=== PATIENT | male | born 1955 | race Caucasian/White ===

== ENCOUNTER 2024-02-28 06:22 | Outpatient (OUT) | payer OTHER, SELFPAY ==
[2024-02-28 07:11] LABS: Anion Gap 9.4; BUN Creatinine Ratio 16.5; Calcium 8.5 mg/dL (8.5-10.1); Chloride 105 mmol/L (98-107); Estimated GFR (African America >60 (>=60); Estimated GFR (Non-African Ame >60 (>=60); Glucose 94 mg/dL (74-106); Potassium 3.4 mmol/L (3.5-5.1); Sodium 142 mmol/L (136-145)
== END 2024-02-28 06:23 | disposition home or self-care (01) ==
LOC: LAB 06:26
PROVIDERS: PCP Internal Medicine; Visit Provider Nurse Practitioner Family
DX: I50.33 Acute on chronic diastolic (congestive) heart failure (principal)
CPT/HCPCS: 36415; 80048

== ENCOUNTER 2024-03-22 07:11 | Outpatient (OUT) | payer OTHER, SELFPAY ==
--- OUTSIDE RECORDS SUMMARY | 2024-03-22 07:15 | XMS_ITS | CCD ---
Author Organization [facility] Care Team Providers Care Fee Clerk Name Role Phone CHRISTOPHER YANG Admitting Unavailable CHRISTOPHER YANG Attending Unavailable CHRISTOPHER VELAZQUEZ Referring Unavailable CHRISTOPHER VELAZQUEZ Primary Care Unavailable DALTON, DR SMITH Admitting Unavailable DALTON, DR SMITH Attending Unavailable DALTON, DR SMITH Primary Care Unavailable DALTON, DR SMITH Consulting Unavailable WEST, DR INDIO Barron Consulting Unavailable DALTON, DR SMITH Admitting Unavailable DALTON, DR SMITH Attending Unavailable DALTON, DR SMITH Primary Care Unavailable DALTON, DR SMITH Consulting Unavailable HEMMER, DR JUHI Peterson Admitting Unavailable HEMMER, DR JUHI Peterson Attending Unavailable DALTON, DR SMITH Primary Care Unavailable ZIEBER, DR THOMAS Cook Consulting Unavailable HEMMER, DR JUHI Peterson Consulting Unavailable DALTON, DR SMITH Primary Care Unavailable FEDERICO, DR GUTIERREZ Cook Consulting Unavailable FEDERICO, DR GUTIERREZ Cook Admitting Unavailable FEDERICO, DR GUTIERREZ Cook Attending Unavailable GABBI WALSH Consulting Unavailable KOFFI DAO Consulting Unavailable LALO HICKMAN Consulting Unavailable MICHAEL REINOSO Consulting UnavailOLGA LIDIA Jennings Admitting Unavailable OLGA LIDIA WAITE Attending Unavailable CARLOS WEISS Consulting Unavailable INDIO MCHUGH Consulting Unavailable HALIE GUADALUPE Consulting Unavailable Marina Cheng Attending Unavailab Marina Hutton Attending Unavailab Marina Hutton Attending Unavailab MD Henok Leggett Attending Unavaila indu Cheng, Marina Attending Unavailab Gordon Orellana Admitting Unavailable Gordon Smith Attending Unavailable Christopher Velazquez Primary Care Unavailable Sirisha Savage Consulting Unavailable Libertad Vazquez Consulting Unavailable Taryn Sanders Consulting Unavailable Marta Trevizo Consulting Unavailable Carmenza Thomas Consulting Unavailable Krystyna Carrillo Consulting Unavailable Kimo Cary Consulting Unavailable Judie Issac K Consulting Unavailable Jayan Dunna M Consulting Unavailable Maurilio Murrell Consulting Unavailable Jose Jensen Consulting Unavailable Jg Hamlin Consulting UnavailAbran Langston Consulting Unavailable Eileen Roca Consulting Unavailable Tram Perez Consulting Unavailable Cassi Suresh Consulting Unavailable Tushar Pendleton Consulting Unavailable Harjit Lopez Consulting Unavailable Katya Best Consulting Unavailable Henok Doshi Consulting Unavailable Rush Flores Consulting Unavailable Dmitri Radford Consulting Unavailable Oren Burnett Consulting Unavailable Mihaela Miller Consulting Unavailable DoamekporGen Consulting Unavailab Gamal Nielson Consulting Unavailable VenkateshImelda almanzar Consulting Unavailable Matthias Pablo Consulting Unavailable Giselle Jaquez Consulting Unavailable Jak Ku Consulting Unavailab David Sung Consulting Unavailable Nando Roe Consulting Unavailable Gina Fung Consulting Unavailable Timothy Vaughan Consulting Unavailable Daromar Obaydah M Consulting Unavailable Katharine Caballero Consulting Unavailable Debora Hunt Consulting Unavailable Fany Ford Consulting Unavailable Jenae Mcgee Consulting Unavailable Fer Mayfield Consulting Unavailable Jackie Berry Consulting Unavailable Chaz Hurd Consulting Unavailable Chirag Hatch Consulting UnavailChristopher Baugh Primary Care Unavailable Honey Hines Attending Unavailable Honey Hines Admitting Unavailable Christopher Velazquez MD Primary Care Provider CHAPO Velazquez Primary Care Provider [phone] MD Gordon Smith Admit Provider MD Gordon Smith Attending Provider STERLING Savage Other Provider Unavailable STERLING Vazquez Other Provider Unavailable STERLING Sanders Other Provider Unavailable STERLING Trevizo Other Provider Unavailable STERLING Thomas Other Provider Unavailable STERLING Carrillo Other Provider Unavailable MD Kimo Cary Other Provider MD Issac Dimas Other Provider Shaun, VEGETABLE FARM WORKER Adeola M Other Provider DO Maurilio Murrell Other Provider MD Jose Jensen Other Provider DO Jg Hamlin Other Provider MD Abran Perera Other Provider MD Eileen Roca Other Provider Ana, ANP-BC Tram Other Provider MD Cassi Suresh Other Provider MD Tushar Pendleton Other Provider MD Harjit Lopez Other Provider MD Katya Best Other Provider DO Henok Doshi Other Provider MD Rush Flores Other Provider MD Dmitri Radford Other Provider MD Oren Burnett Other Provider Paul, QUALITY ASSURANCE-C Mihaela Thibodeaux Other Provider MD Gen Reich Other Provider MD Gamal Bone Other Provider MD Imelda Riddle Other Provider MD Matthias Pablo Other Provider DO Giselle Jaquez Other Provider MD Jak Ku Other Provider DO David Rossi Other Provider DO Nando Roe Other Provider NAZANIN Fung Other Provider DO Timothy Vaughan Other Provider MD Jaime Trivedi Other Provider NAZANIN Caballero Other Provider STERLING Hunt Other Provider Unavailable LISA Ford Other Provider UnavailLISA Guerra Other Provider Unavailable MD Fer Mayfield Other Provider [phone] RED Berry Other Provider [phone] MD Chaz Hurd Other Provider MD Chirag Hatch Other Provider NAZANIN Hines Attending Provider [phone] CHRISTOPHER VELAZQUEZ Primary Care Unavailable CHRISTOPHER VELAZQUEZ B Primary Care Unavailable BOOTHBY, FREDRICK C Admitting Unavailable BOOTHBY, FREDRICK C Attending Unavailable CHRISTOPHER VELAZQUEZ B Primary Care Unavailable BOOTHBY, FREDRICK C Admitting Unavailable BOOTHBY, FREDRICK Jake Attending Unavailable CHRISTOPHER VELAZQUEZ B Primary Care Unavailable JUAN AGUERO Consulting Unavailable LESLIE, LORIE Consulting Unavailable BESSYMAXIMILIANO LORENZO Consulting Unavailable ADDY KENDALL Consulting Unavailable LOUKA GLEN Consulting Unavailable CHRISTOPHER VELAZQUEZ B Primary Care Unavailable Christopher Velazquez MD Primary Care Provider HELEN GONZALEZ Attending Unavailable NANDO RETANA Referring Unavailable CHRISTOPHER VELAZQUEZ B Primary Care Unavailable SERINA GONZALEZATUNDE Attending Unavailable CHRISTOPHER VELAZQUEZ B Referring Unavailable CHRISTOPHER VELAZQUEZ B Primary Care Unavailable Christopher Velazquez MD Unavailable [phone] Christopher Velazquez MD Primary Care Provider CHRISTOPHER VELAZQUEZ Primary Care Unavailable LAUREN MARTIN Attending Unavailable LAUREN MARTIN Attending Unavailable LAUREN MARTIN Referring Unavailable DALTON CHRISTOPHER B Primary Care Unavailable LISA, HELEN Attending Unavailable SERINA GONZALEZATUNDE Referring Unavailable DALTON CHRISTOPHER B Primary Care Unavailable CHRISTOPHER VELAZQUEZ B Referring Unavailable DALTON CHRISTOPHER B Primary Care Unavailable DALTON CHRISTOPHER B Referring Unavailable DALTON CHRISTOPHER B Primary Care Unavailable EVA SANCHEZ Attending Unavailable CHRISTOPHER VELAZQUEZ Attending Unavailable JUHI SULLIVAN Attending Unavailable EVA SANCHEZ Attending Unavailable CHRISTOPHER VELAZQUEZ Attending Unavailable NANDO RETANA Attending Unavailable NANDO RETANA Referring Unavailable JUHI SULLIVAN Attending Unavailable SCAR WILLIS Attending Unavailable SCAR WILLIS Admitting Unavailable SCAR WILLIS Referring Unavailable FAB INIGUEZ Referring Unavailable SCAR WILLIS Referring Unavailable FAB INIGUEZ Attending Unavailable FAB INIGUEZ Attending Unavailable Allergies Allergy Classification Reported Allergen(s) Allergy Type Date of Onset Reaction(s) Facility (4 sources) Doxycycline; Translations: [DOXYCYCLINE] Drug Allergy 8 Itching [facility] Repository (5 sources) Morphine; Translations: [MORPHINE] Drug Allergy 3 [facility] Repository (7 sources) Penicillins; Translations: [PENICILLINS] Drug allergy (disorder) 3 Hives [facility] Repository (1 source) Doxycycline Drug Allergy 0 [facility] Repository (1 source) Penicillins Drug allergy (disorder) 0 [facility] Repository (6 sources) Doxycycline Drug Allergy 2 Itching [facility] (3 sources) Penicillins Propensity to adverse reactions to drug 8 Rash, Hives [facility] Work Phone: (7 sources) Morphine Drug Allergy 0 Nausea And Vomiting, GI intolerance [facility] (5 sources) Penicillins Drug Intolerance 4 Hives, Other, Rash, Unknown [facility] Medications Current Medications Medication Drug Class(es) Dates Sig (Normalized) Sig (Original) acetaminophen 325 mg oral tablet (3 sources) Start: 11-09-2022 End: 11-10-2022 acetaminophen (TYLENOL) tablet 650 mg Start: 09-29-2022 take 500 mg by mouth every four hours Acetaminophen Active 500 MG PO Q4H 100 30 September 29, 2022 12:00am Start: 09-11-2022 End: 09-29-2022 take 1000 mg by mouth three times daily Acetaminophen Discontinued 1000 MG PO Three times daily September 11, 2022 12:00am September 29, 2022 1:59pm apixaban 2.5 mg oral tablet (7 sources) Factor Xa Inhibitor Start: 11-16-2023 End: 11-15-2024 take 1 tablet by mouth in the morning apixaban (Eliquis) 2.5 MG tablet Indications: 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 180 tablet 3 11/16/2023 11/15/2024 Active Start: 09-29-2022 End: 11-19-2022 take 1 tablet by mouth twice daily apixaban (ELIQUIS) 5 MG TABS tablet Take 1 tablet by mouth 2 times daily 60 tablet 0 10/20/2022 11/19/2022 Active aspirin 81 mg chewable tablet (4 sources) Platelet Aggregation Inhibitor, Nonsteroidal Anti-inflammatory Drug Start: 11-06-2018 End: 09-29-2022 take 1 tablet by mouth once daily Aspirin (Children's Aspirin) 81 mg Tablet,Chewable Active 81 MG PO Daily September 29, 2022 12:00am take 1 tablet by mouth in the mo rning aspirin 81 mg Take 1 tablet (81 mg total) by mouth in the morning. 0 Active atorvastatin 80 mg oral tablet (10 sources) HMG-CoA Reductase Inhibitor Start: 10-25-2023 take 1 tablet by mouth once daily atorvastatin (Lipitor) 80 MG tablet Indications: Athscl heart disease of [place] coronary artery w/o ang pctrs (CMS/HCC) TAKE 1 TABLET BY MOUTH EVERY DAY 90 tablet 2 10/25/2023 Active Start: 11-06-2018 End: 09-29-2022 take 80 mg by mouth once daily Atorvastatin Active 80 MG PO Daily September 29, 2022 12:00am azithromycin 250 mg oral tablet (4 sources) Macrolide Antimicrobial Start: 12-05-2023 End: 12-09-2023 take 2 tablets by mouth once daily, then take 1 tablet by mouth once daily azithromycin (Zithromax) 250 MG tablet Indications: Chronic obstructive pulmonary disease with acute exacerbation (CMS/HCC) Take 2 tablets (500 mg) by mouth Daily for 1 day, THEN 1 tablet (250 mg) Daily for 4 days. 6 tablet 0 12/05/2023 12/09/2023 Active benzonatate 200 mg oral capsule (4 sources) Non-narcotic Antitussive Start: 12-05-2023 End: 12-12-2023 take 1 capsule by mouth three times daily as needed for cough benzonatate (Tessalon) 200 MG capsule Indications: Chronic obstructive pulmonary disease with acute exacerbation (CMS/HCC) Take 1 capsule (200 mg) by mouth 3 (three) times a day as needed for cough for up to 7 days Do not crush or chew. 21 capsule 0 12/05/2023 12/12/2023 Active carvedilol 12.5 mg oral tablet (12 sources) alpha-Adrenergic Kaleigh, beta-Adrenergic Kaleigh Start: 10-20-2022 take 0.5 tablet by mouth twice daily at mealtime carvedilol (COREG) 12.5 MG tablet Take 0.5 tablets by mouth 2 times daily (with meals) 60 tablet 3 10/20/2022 Active Start: 09-29-2022 carvedilol (Co reg) 12.5 MG tablet Take 12.5 mg by mouth. 0 10/20/2022 Active Start: 11-09-2018 End: 11-17-2018 take 25 mg by mouth twice daily at mealtime Carvedilol Discontinued 25 MG PO Twice daily with meals 0 November 09, 2018 12:00am November 17, 2018 9:47am Start: 11-06-2018 End: 09-29-2022 take 12.5 mg by mouth twice daily Carvedilol Discontinued 12.5 MG PO Twice daily November 06, 2018 12:00am September 29, 2022 1:59pm Start: 08-31-2018 End: 11-06-2018 take 25 mg by mouth twice daily Carvedilol Discontinue d 25 MG PO Twice daily August 31, 2018 12:00am November 06, 2018 2:36pm cefuroxime 250 mg oral tablet (2 sources) Cephalosporin Antibacterial Start: 10-20-2020 take 1 tablet by mouth twice daily ceFUROxime (CEFTIN) 250 mg tablet Take 1 tablet (250 mg total) by mouth 2 (two) times a day. 20 tablet 0 10/20/2020 Active cetirizine hydrochloride 10 mg oral tablet (1 source) Histamine-1 Receptor Antagonist Start: 10-20-2022 End: 11-19-2022 take 1 tablet by mouth once daily cetirizine (ZYRTEC) 10 MG tablet Take 1 tablet by mouth daily 30 tablet 0 10/20/2022 11/19/2022 Active cholecalciferol 0.025 mg oral tablet (2 sources) Vitamin D Start: 09-29-2022 take 50 ug by mouth once daily Cholecalciferol (Vitamin D3) Active 50 MCG PO Daily 60 September 29, 2022 12:00am Start: 09-11-2022 End: 09-29-2022 take 2000 [IU] by mouth once daily Cholecalciferol (Vitamin D3) Discontinued 2000 UNIT PO Daily September 11, 2022 12:00am September 29, 2022 1:59pm cyclobenzaprine hydrochloride 5 mg oral tablet (2 sources) Muscle Relaxant Start: 09-29-2022 take 5 mg by mouth three times daily Cyclobenzaprine Active 5 MG PO Three times daily September 29, 2022 12:00am Start: 09-11-2022 End: 09-29-2022 take 1 tablet by mouth three times daily Cyclobenzaprine (Flexeril) 10 mg Tablet Discontinued 10 MG PO Three times daily September 11, 2022 12:00am September 29, 2022 1:59pm Dietary Management Product (Vasculera) tablet (5 sources) Start: 11-08-2023 take 1 tablet by mouth in the morning Dietary Management Product (Vasculera) tablet Take 1 tablet by mouth in the morning. 0 11/08/2023 Active diosmin complex no.1 (VASCULERA) 630 mg tablet (1 source) Start: 11-08-2023 take 1 tablet by mouth in the morning diosmin complex no.1 (VASCULERA) 630 mg tablet Indications: Venous insufficiency of both lower extremities Take 1 tablet by mouth in the morning. 90 tablet 1 11/08/2023 Active diphenhydrAMINE hydrochloride 25 mg oral tablet (1 source) Histamine-1 Receptor Antagonist Start: 10-20-2022 End: 11-19-2022 take 1 tablet by mouth every six hours as needed diphenhydrAMINE (BENADRYL) 25 MG tablet Take 1 tablet by mouth every 6 hours as needed for Itching 10 tablet 0 10/20/2022 11/19/2022 Active 2 ml fentaNYL 0.05 mg/ml injection (1 source) Opioid Agonist Start: 11-09-2022 fentaNYL (SUBLIMAZE) injection 25 mcg fludrocortisone acetate 0.1 mg oral tablet (5 sources) Start: 06-15-2023 End: 06-14-2024 take 1 tablet by mouth once daily at bedtime fludrocortisone (Florinef) 0.1 MG tablet Indications: Dizziness TAKE 1 TABLET BY MOUTH EVERY DAY AT BEDTIME FOR 30 DAYS 30 tablet 11 06/15/2023 06/14/2024 Active FLUoxetine 20 mg oral capsule (9 sources) Serotonin Reuptake Inhibitor Start: 09-11-2022 End: 09-29-2022 take 20 mg by mouth once daily Fluoxetine Active 20 MG PO Daily 30 September 29, 2022 12:00am furosemide 20 mg oral tablet (10 sources) Loop Diuretic Start: 07-08-2023 take 1 tablet by mouth every twenty-four hours as needed furosemide (Lasix) 20 MG tablet Take 20 mg by mouth Daily as needed (edema). 0 07/08/2023 Active Start: 09-11-2022 End: 09-29-2022 take 20 mg by mouth twice daily Furosemide Discontinued 20 MG PO Twice daily September 11, 2022 1:46am September 29, 2022 1:59pm Start: 11-09-2018 End: 09-11-2022 take 20 mg by mouth once daily Furosemide Discontinued 20 MG PO Daily 60 November 09, 2018 12:00am September 11, 2022 1:46am Start: 11-07-2018 End: 11-09-2018 take 60 mg by mouth twice daily Furosemide Discontinued 60 MG PO Twice daily November 07, 2018 12:00am November 07, 2018 9:18am Start: 06-16-2018 End: 11-07-2018 take 40 mg by mouth twice daily Furosemide Discontinued 40 MG PO Twice daily June 15, 2018 11:00pm November 07, 2018 8:59am gabapentin 300 mg oral capsule (12 sources) Anti-epileptic Agent Start: 05-09-2023 take 3 capsules by mouth in the morning, then take 3 capsules by mouth in the evening, then take 3 capsules by mouth at bedtime gabapentin (Neurontin) 300 MG capsule Indications: 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) Take 3 capsules (900 mg) by mouth in the morning and 3 capsules (900 mg) in the evening and 3 capsules (900 mg) before bedtime. 270 capsule 5 05/09/2023 Active Start: 09-11-2022 End: 09-29-2022 take 900 mg by mouth every eight hours Gabapentin Active 900 MG PO Every 8 hours 270 September 29, 2022 12:00am Start: 11-09-2018 End: 09-11-2022 take 600 mg by mouth three times daily Gabapentin Discontinued 600 MG PO Three times daily 0 November 09, 2018 7:09pm September 11, 2022 1:46am Start: 06-16-2018 End: 11-09-2018 take 900 mg by mouth three times daily Gabapentin Discontinued 900 MG PO Three times daily June 15, 2018 11:00pm November 09, 2018 7:09pm Lanolin Jhrxych-Np-J.Pet-[place] (Minerin Creme) Cream (1 source) Start: 09-29-2022 Lanolin Rxlimxl-Ye-Y.Pet-[place] (Minerin Creme) Cream Active 1 APPLIC TOPICAL Twice daily September 29, 2022 12:00am methocarbamol 750 mg oral tablet (2 sources) Muscle Relaxant Start: 10-07-2022 take 1 tablet by mouth three times daily as needed for muscle spasms methocarbamol (ROBAXIN) 750 MG tablet Take 1 tablet by mouth 3 times daily as needed (muscle spasms) 30 tablet 0 10/07/2022 Active Start: 09-11-2022 End: 09-29-2022 take 750 mg by mouth every six hours Methocarbamol Discontinued 750 MG PO Q6H September 11, 2022 12:00am September 29, 2022 1:59pm x 10 days nystatin 100 unt/mg topical powder (1 source) Polyene Antifungal Start: 09-29-2022 Nystatin (N ystop) 100,000 unit/gram Powder Active 1 APPLIC TOPICAL Twice daily 1 September 29, 2022 12:00am omeprazole 40 mg delayed release oral capsule (10 sources) Proton Pump Inhibitor Start: 11-14-2023 omeprazo le (PriLOSEC) [address] capsule Indications: Gastro-esophageal reflux disease without esophagitis TAKE 1 CAPSULE BY MOUTH EVERY DAY 30 MINUTES BEFORE MORNING MEAL FOR 90 DAYS 100 capsule 3 11/14/2023 Active Start: 09-29-2022 take 40 mg by mouth once daily Omeprazole Active 40 MG PO Daily 60 September 29, 2022 12:00am Start: 11-06-2018 End: 09-29-2022 take 40 mg by mouth once daily Omeprazole Discontinued 40 MG PO Daily November 06, 2018 12:00am September 29, 2022 1:59pm take 2 capsules by m outh once daily omeprazole (PRILOSEC) 20 MG capsule Take 40 mg by mouth Daily 0 Active oxyCODONE hydrochloride 5 mg oral tablet (2 sources) Opioid Agonist Start: 09-11-2022 End: 09-29-2022 take 5 mg by mouth every four hours Oxycodone Active 5 MG PO Q4H 20 September 29, 2022 microencapsulated potassium chloride 20 meq extended release oral tablet (2 sources) Start: 09-29-2022 Potassium Chloride (Klor-Con M20) 20 mEq Tablet,Er Particles/Alba ls Active 20 MEQ PO Daily September 29, 2022 12:00am Start: 09-11-2022 End: 09-29-2022 take 20 mEq by mouth once daily Potassium Chloride Discontinued 20 MEQ PO Daily September 11, 2022 12:00am September 29, 2022 1:59pm 5 ml sodium chloride 9 mg/ml injection (3 sources) Start: 11-09-2022 sodium chlorid e flush 0.9 % injection 5-40 mL Start: 11-09-2022 0.9 % sodium c hloride infusion Start: 11-09-2022 sodium chlorid e flush 0.9 % injection 5-40 mL sulfamethoxazole 800 mg / trimethoprim 160 mg oral tablet (4 sources) Dihydrofolate Reductase Inhibitor Antibacterial, Sulfonamide Antimicrobial Start: 09-29-2022 take 1 tablet by mouth twice daily Sulfamethoxazole-Trimethoprim Active 1 TAB PO Twice daily 9 September 29, 2022 12:00am Start: 10-26-2018 End: 10-31-2018 take 1 tablet by mouth twice daily Sulfamethoxazole-Trimethoprim (Bactrim D s) 800-160 mg tablet Discontinued 1 TAB PO Twice daily 10 October 26, 2018 12:00am October 31, 2018 12:02am call Dr. Velazquez about inr level checks Start: 09-05-2018 End: 09-19-2018 take 1 tablet by mouth twice daily Sulfamethoxazole-Trimethoprim (Bactrim D s) 800-160 mg tablet Discontinued 1 TAB PO Twice daily September 05, 2018 12:00am September 19, 2018 12:01am Start: 06-19-2018 End: 07-03-2018 take 1 tablet by mouth every twelve hours Sulfamethoxazole-Trimethoprim (Bactrim D s) 800-160 mg tablet Discontinued 1 TAB PO Q12H June 18, 2018 11:00pm July 02, 2018 11:03pm triamcinolone acetonide 1 mg/ml topical cream (2 sources) Corticosteroid Start: 09-11-2022 End: 09-29-2022 Triamcinolone Acetonide Active 1 APPLIC TOPICAL Twice daily 11 22September 29, 2022 12:00am zolpidem tartrate 10 mg oral tablet (8 sources) gamma-Aminobutyric Acid-ergic Agonist Start: 11-28-2023 End: 05-26-2024 zolpidem (Ambien) 10 MG tablet Indications: Primary insomnia Take 1 tablet (10 mg) by mouth as needed at bedtime for sleep 30 tablet 5 11/28/2023 05/26/2024 Active Start: 06-16-2018 End: 09-29-2022 take 10 mg by mouth once daily at bedtime Zolpidem Active 10 MG PO Daily at bedtime 04 29September 29, 2022 12:00am Completed/Discontinued Medications Medication Drug Class(es) Dates Sig (Normalized) Sig (Original) acetaminophen 325 mg / oxyCODONE hydrochloride 5 mg oral tablet (4 sources) Opioid Agonist Start: 11-09-2022 End: 11-09-2022 oxyCODONE-acetamin ophen (PERCOCET) 5-325 MG per tablet 1 tablet Start: 11-03-2022 End: 11-16-2022 oxyCODONE-acetaminophen (PER COCET) 5-325 MG per tablet Indications: Post-op pain Take 1 tablet by mouth every 6 hours as needed for Pain for up to 5 days. Intended supply: 7 days. Take lowest dose possible to manage pain Max Daily Amount: 4 tablets 20 tablet 0 11/09/2022 11/14/2022 Active albuterol 0.83 mg/ml inhalation solution (1 source) beta2-Adrenergic Agonist Start: 11-06-2018 End: 11-17-2018 take 1 mL by inhalation three times daily Albuterol Sulfate Discontinued 3 ML INHALATION Three times daily November 06, 2018 12:00am November 17, 2018 9:49am calcium chloride 0.0014 meq/ml / potassium chloride 0.004 meq/ml / sodium chloride 0.103 meq/ml / sodium lactate 0.028 meq/ml injectable solution (1 source) Start: 11-09-2022 End: 11-09-2022 lactated ringers infusion cephalexin 500 mg oral capsule (1 source) Cephalosporin Antibacterial Start: 11-09-2018 End: 11-16-2018 take 1 capsule by mouth every eight hours Cephalexin (Keflex) 500 mg capsule Discontinued 500 MG PO Q8H 21 November 09, 2018 12:00am November 16, 2018 12:01am Enoxaparin (1 source) Low Molecular Weight Heparin Start: 09-11-2022 End: 09-29-2022 Enoxaparin (Lovenox) 30 mg/0.3 mL Solution Discontinued 30 MG SUBCUT Twice daily September 11, 2022 12:00am September 29, 2022 1:59pm hydroCHLOROthiazide 25 mg / triamterene 37.5 mg oral tablet (2 sources) Potassium-sparing Diuretic, Thiazide Diuretic Start: 11-07-2018 End: 11-09-2018 take 1 tablet by mouth once daily Triamterene-Hyd rochlorothiazid Discontinued 1 TAB PO Daily November 07, 2018 12:00am November 09, 2018 7:02pm Start: 06-16-2018 End: 11-06-2018 take 1 capsule by mouth once daily Triamterene-Hydrochlorothiazid Discontin ued 1 CAP PO Daily June 15, 2018 11:00pm November 06, 2018 6:38pm 3 ml insulin lispro 100 unt/ml pen injector (1 source) Insulin Analog Start: 09-11-2022 End: 09-29-2022 inject 100 [IU] by subcutaneous injection at bedtime Insulin Lispro (Humalog Kwikpen Insulin) 100 unit/mL Insulin Pen Discontinued SUBCUT Before meals and at bedtime September 11, 2022 12:00am September 29, 2022 1:59pm lisinopril 20 mg oral tablet (1 source) Angiotensin Converting Enzyme Inhibitor Start: 08-31-2018 End: 11-09-2018 take 20 mg by mouth once daily Lisinopril Discontinued 20 MG PO Daily August 31, 2018 12:00am November 09, 2018 7:01pm meloxicam 15 mg oral tablet (1 source) Nonsteroidal Anti-inflammatory Drug Start: 11-07-2018 End: 11-09-2018 take 15 mg by mouth once daily Meloxicam Discontinued 15 MG PO Daily November 07, 2018 12:00am November 09, 2018 7:01pm 1 ml methylPREDNISolone acetate 40 mg/ml injection (4 sources) Corticosteroid Start: 12-06-2023 End: 12-06-2023 methylPREDNISolone acetate (DEPO-Medrol) injection 40 mg metoprolol tartrate 25 mg oral tablet (1 source) beta-Adrenergic Kaleigh Start: 06-16-2018 End: 11-06-2018 take 25 mg by mouth twice daily Metoprolol Tartrate Discontinued 25 MG PO Twice daily June 15, 2018 11:00pm November 06, 2018 6:32pm 1 ml morphine sulfate 2 mg/ml cartridge (1 source) Opioid Agonist Start: 11-09-2022 End: 11-09-2022 morphine (PF) injection 2 mg ondansetron 4 mg oral tablet (1 source) Serotonin-3 Receptor Antagonist Start: 09-11-2022 End: 09-29-2022 take 1 tablet by mouth every eight hours Ondansetron Hcl (Zofran) 4 mg Tablet Discontinued 4 MG PO Q8H September 11, 2022 12:00am September 29, 2022 1:59pm pantoprazole 40 mg delayed release oral tablet (2 sources) Proton Pump Inhibitor Start: 09-11-2022 End: 09-29-2022 take 1 tablet by mouth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 obtained split-thickness skin graft to his left thigh. We then let the wound to his left thigh soak in a sponge soaked with 1% lidocaine with epinephrine and the split-thickness skin graft was then meshed with a 1.5:1 mesher and then placed over the medial wound and stapled in place. Residual skin graft was trimmed. We then placed Xeroform over his thigh wound after removing the sponge and placed Kerlix and a Xeroform compression dressing. We then medially placed a negative pressure wound VAC over the wound, which had excellent seal. Being satisfied, we placed a well-padded posterior short-leg splint to his left lower extremity. The patient was then awoken from general anesthesia, transferred to PACU in stable condition. I was present for all aspects of the procedure. Meticulous dissection was used and thorough hemostasis was achieved. The patient will be nonweightbearing to left lower extremity and follow up in my clinic in one week. FREDRICK BABIN RUSSELL/[email or web address] Doc#: [id number] CC: Normal [facility] POCT Glucoseon 11-09-2022 Glucose [Mass/Vol] 93 mg/dL 74 - 100 mg/dL [facility] POCT urea (BUN)on 11-09-2022 Urea nitrogen [Mass/Vol] 12 mg/dL 8 - 26 mg/dL [facility] Basic Metab w/rfx MGon 10-22 Anion gap [Moles/Vol] 9 mmol/L Normal 9-17 [facility] Comment on above: Performed By: #### B MPX #### [facility] [place] [address] Fermentation Operator: Bret Vazquez MD Calcium [Mass/Vol] 8.1 mg/dL Low 8.6-10.4 [facility] Comment on above: Performed By: #### B MPX #### [facility] [address] [place] [address] Fermentation Operator: Bret Vazquez MD Chloride [Moles/Vol] 102 mmol/L Normal 98-107 [facility] Comment on above: Performed By: #### B MPX #### [facility] [address] [place] [address] Fermentation Operator: Bret Vazquez MD CO2 [Moles/Vol] 26 mmol/L Normal 20-31 [facility] Comment on above: Performed By: #### B MPX #### [address] [address] Fermentation Operator: Bret Vazquez MD Creatinine [Mass/Vol] 0.59 mg/dL Low 0.70-1.20 [facility] Comment on above: Performed By: #### B MPX #### [address] [address] Fermentation Operator: Bret Vazquez MD GFR/1.73 sq M.predicted among non-blacks MDRD (S/P/Bld) [Vol rate/Area] mL/min/{1.73_m2} Normal >60 [facility] Comment on above: Result Comment: Effective Jul 26, 2022 These results are not intended for use in patients <18 years of age. eGFR results are calculated without a race factor using the 2020 CKD-EPI equation. Careful clinical correlation is recommended, particularly when comparing to results calculated using previous equations. The CKD-EPI equation is less accurate in patients with extremes of muscle mass, extra-renal metabolism of creatine, excessive creatine ingestion, or following therapy that affects renal tubular secretion. Performed By: #### B MPX #### [address] [address] Fermentation Operator: Bret Vazquez MD Glucose [Mass/Vol] 93 mg/dL Normal 70-99 [facility] Comment on above: Performed By: #### B MPX #### [address] [address] Fermentation Operator: Bret Vazquez MD Potassium [Moles/Vol] 4.3 mmol/L Normal 3.7-5.3 [facility] Comment on above: Performed By: #### B MPX #### [address] [address] Fermentation Operator: Bret Vazquez MD Sodium [Moles/Vol] 137 mmol/L Normal 135-144 [facility] Comment on above: Performed By: #### B MPX #### [address] [address] Fermentation Operator: Bret Vazquez MD Urea nitrogen [Mass/Vol] 9 mg/dL Normal 8-23 [facility] Comment on above: Performed By: #### B MPX #### [place] [address] Fermentation Operator: Bret Vazquez MD CBC with Diffon 10-20-2022 Abs. Basophil 0.04 k/uL Normal 0.00-0.20 [facility] Comment on above: Performed By: #### E RTPF, CK, ECENZ, VD25 #### [place] [address] Fermentation Operator: Bret Vazquez MD Abs.Imm.Granulocyte <0.03 Normal 0.00-0.30 [facility] Comment on above: Performed By: #### E RTPF, CK, ECENZ, VD25 #### [facility] [address] [place] [address] Fermentation Operator: Bret Vazquez MD Abs.Neutrophil (Seg) 4.45 k/uL Normal 1.50-8.10 [facility] Comment on above: Performed By: #### E RTPF, CK, ECENZ, VD25 #### [facility] [address] [place] [address] Fermentation Operator: Bret Vazquez MD Basophils/100 WBC (Bld) 1 % Normal 0-2 [facility] Comment on above: Performed By: #### E RTPF, CK, ECENZ, VD25 #### [address] [address] Fermentation Operator: Bret Vazquez MD Eosinophils (Bld) [#/Vol] 0.11 10*3/uL Normal 0.00-0.44 [facility] Comment on above: Performed By: #### E RTPF, CK, ECENZ, VD25 #### [address] [address] Fermentation Operator: Bret Vazquez MD Eosinophils/100 WBC (Bld) 2 % Normal 1-4 [facility] Comment on above: Performed By: #### E RTPF, CK, ECENZ, VD25 #### [address] [address] Fermentation Operator: Bret Vazquez MD Erythrocyte distribution width (RBC) [Ratio] 14.5 % High 11.8-14.4 [facility] Comment on above: Performed By: #### E RTPF, CK, ECENZ, VD25 #### [address] [address] Fermentation Operator: Bret Vazquez MD Hematocrit (Bld) [Volume fraction] 33.5 % Low 40.7-50.3 [facility] Comment on above: Performed By: #### E RTPF, CK, ECENZ, VD25 #### [address] [address] Fermentation Operator: Bret Vazquez MD Hemoglobin (Bld) [Mass/Vol] 10.8 g/dL Low 13.0-17.0 [facility] Comment on above: Performed By: #### E RTPF, CK, ECENZ, VD25 #### [address] [address] Fermentation Operator: Bret Vazquez MD Immature granulocytes/100 WBC (Bld) 0 % Normal 0 [facility] Comment on above: Performed By: #### E RTPF, CK, ECENZ, VD25 #### [place] [address] Fermentation Operator: Bret Vazquez MD Lymphocytes (Bld) [#/Vol] 1.28 10*3/uL Normal 1.10-3.70 [facility] Comment on above: Performed By: #### E RTPF, CK, ECENZ, VD25 #### [place] [address] Fermentation Operator: Bret Vazquez MD Lymphocytes/100 WBC (Bld) 19 % Low 24-43 [facility] Comment on above: Performed By: #### E RTPF, CK, ECENZ, VD25 #### [place] [address] Fermentation Operator: Bret Vazquez MD MCH (RBC) [Entitic mass] 29.0 pg Normal 25.2-33.5 [facility] Comment on above: Performed By: #### E RTPF, CK, ECENZ, VD25 #### [place] [address] Fermentation Operator: Bret Vazquez MD MCHC (RBC) [Mass/Vol] 32.2 g/dL Normal 28.4-34.8 [facility] Comment on above: Performed By: #### E RTPF, CK, ECENZ, VD25 #### [address] [address] Fermentation Operator: Bret Vazquez MD MCV (RBC) [Entitic vol] 90.1 fL Normal 82.6-102.9 [facility] Comment on above: Performed By: #### E RTPF, CK, ECENZ, VD25 #### [address] [address] Fermentation Operator: Bret Vazquez MD Monocytes (Bld) [#/Vol] 0.70 10*3/uL Normal 0.10-1.20 [facility] Comment on above: Performed By: #### E RTPF, CK, ECENZ, VD25 #### [address] [address] Fermentation Operator: Bret Vazquez MD Monocytes/100 WBC (Bld) 11 % Normal 3-12 [facility] Comment on above: Performed By: #### E RTPF, CK, ECENZ, VD25 #### [place] [address] Fermentation Operator: Bret Vazquez MD Neutrophil (Seg) 67 % High 36-65 [facility] Comment on above: Performed By: #### E RTPF, CK, ECENZ, VD25 #### [address] [address] Fermentation Operator: Bret Vazquez MD NRBC Automated 0.0 per 100 WBC Normal 0.0 [facility] Comment on above: Performed By: #### E RTPF, CK, ECENZ, VD25 #### [address] [address] Fermentation Operator: Bret Vazquez MD Platelet mean volume (Bld) [Entitic vol] 10.3 fL Normal 8.1-13.5 [facility] Comment on above: Performed By: #### E RTPF, CK, ECENZ, VD25 #### [address] [address] Fermentation Operator: Bret Vazquez MD Platelets (Bld) [#/Vol] 236 10*3/uL Normal 138-453 [facility] Comment on above: Performed By: #### E RTPF, CK, ECENZ, VD25 #### [facility] [address] [place] [address] Fermentation Operator: Bret Vazquez MD RBC (Bld) [#/Vol] 3.72 10*6/uL Low 4.21-5.77 [facility] Comment on above: Performed By: #### E RTPF, CK, ECENZ, VD25 #### [address] [address] Fermentation Operator: Bret Vazquez MD RBC morphology finding Nom (Bld) ANISOCYTOSIS PRESENT Normal [facility] Comment on above: Performed By: #### E RTPF, CK, ECENZ, VD25 #### [facility] [address] [place] [address] Fermentation Operator: Bret Vazquez MD WBC (Bld) [#/Vol] 6.6 10*3/uL Normal 3.5-11.3 [facility] Comment on above: Performed By: #### E RTPF, CK, ECENZ, VD25 #### [facility] [address] [place] [address] Fermentation Operator: Bret Vazquez MD Comp Metabolic Pr/rfx MGon 1 12-21-2021 Albumin [Mass/Vol] 2.6 g/dL Low 3.5-5.2 [facility] Comment on above: Performed By: #### E RTPF, CK, ECENZ, VD25 #### [facility] [address] [place] [address] Fermentation Operator: Bret Vazquez MD Albumin/Glob Ratio 1.2 Normal 1.0-2.5 [facility] Comment on above: Performed By: #### E RTPF, CK, ECENZ, VD25 #### [address] [address] Fermentation Operator: Bret Vazquez MD Alkaline Phos 104 U/L Normal 40-129 [facility] Comment on above: Performed By: #### E RTPF, CK, ECENZ, VD25 #### [address] [address] Fermentation Operator: Bret Vazquez MD ALT [Catalytic activity/Vol] 7 U/L Normal 5-41 [facility] Comment on above: Performed By: #### E RTPF, CK, ECENZ, VD25 #### [address] [address] Fermentation Operator: Bret Vazquez MD Anion gap [Moles/Vol] 7 mmol/L Low 9-17 [facility] Comment on above: Performed By: #### E RTPF, CK, ECENZ, VD25 #### [address] [address] Fermentation Operator: Bret Vazquez MD AST [Catalytic activity/Vol] 13 U/L Normal <40 [facility] Comment on above: Performed By: #### E RTPF, CK, ECENZ, VD25 #### [address] [address] Fermentation Operator: Bret Vazquez MD Bilirubin [Mass/Vol] 0.9 mg/dL Normal 0.3-1.2 [facility] Comment on above: Performed By: #### E RTPF, CK, ECENZ, VD25 #### [facility] [address] [place] [address] Fermentation Operator: Bret Vazquez MD Calcium [Mass/Vol] 8.0 mg/dL Low 8.6-10.4 [facility] Comment on above: Performed By: #### E RTPF, CK, ECENZ, VD25 #### [facility] [place] [address] Fermentation Operator: Bret Vazquez MD Chloride [Moles/Vol] 103 mmol/L Normal 98-107 [facility] Comment on above: Performed By: #### E RTPF, CK, ECENZ, VD25 #### [facility] [place] [address] Fermentation Operator: Bret Vazquez MD CO2 [Moles/Vol] 25 mmol/L Normal 20-31 [facility] Comment on above: Performed By: #### E RTPF, CK, ECENZ, VD25 #### [facility] [address] [place] [address] Fermentation Operator: Bret Vazquez MD Creatinine [Mass/Vol] 0.67 mg/dL Low 0.70-1.20 [facility] Comment on above: Performed By: #### E RTPF, CK, ECENZ, VD25 #### [facility] [address] [place] [address] Fermentation Operator: Bret Vazquez MD GFR/1.73 sq M.predicted among non-blacks MDRD (S/P/Bld) [Vol rate/Area] mL/min/{1.73_m2} Normal >60 [facility] Comment on above: Result Comment: Effective Jul 26, 2022 These results are not intended for use in patients <18 years of age. eGFR results are calculated without a race factor using the 2020 CKD-EPI equation. Careful clinical correlation is recommended, particularly when comparing to results calculated using previous equations. The CKD-EPI equation is less accurate in patients with extremes of muscle mass, extra-renal metabolism of creatine, excessive creatine ingestion, or following therapy that affects renal tubular secretion. Performed By: #### E RTPF, CK, ECENZ, VD25 #### [facility] [address] [place] [address] Fermentation Operator: Bret Vazquez MD Glucose [Mass/Vol] 99 mg/dL Normal 70-99 [facility] Comment on above: Performed By: #### E RTPF, CK, ECENZ, VD25 #### [address] [address] Fermentation Operator: Bret Vazquez MD Potassium [Moles/Vol] 4.3 mmol/L Normal 3.7-5.3 [facility] Comment on above: Performed By: #### E RTPF, CK, ECENZ, VD25 #### [address] [address] Fermentation Operator: Bret Vazquez MD Protein [Mass/Vol] 4.7 g/dL Low 6.4-8.3 [facility] Comment on above: Performed By: #### E RTPF, CK, ECENZ, VD25 #### [address] [address] Fermentation Operator: Bret Vazquez MD Sodium [Moles/Vol] 135 mmol/L Normal 135-144 [facility] Comment on above: Performed By: #### E RTPF, CK, ECENZ, VD25 #### [address] [address] Fermentation Operator: Bret Vazquez MD Urea nitrogen [Mass/Vol] 11 mg/dL Normal 8-23 [facility] Comment on above: Performed By: #### E RTPF, CK, ECENZ, VD25 #### [address] [address] Fermentation Operator: Bret Vazquez MD XR ANKLE LEFT (MIN 3 VIEWS)o n 10-20-2022 XR ANKLE LEFT (MIN 3 VIEWS) History: 67 year-old male with a history of left ankle ORIF ? Comparison: 09/06/2022 ? Findings: AP, oblique and lateral views of the left ankle in a skeletally mature patient status post open reduction internal fixation of prior fractures of the medial and lateral malleolus. Compared to prior radiographs, there is increased displacement of the lateral malleolus and medial clear space. There is an increased tilt of the talus noted. No broken screws are visualized. No acute fractures noted. ? Impression: Status post ORIF with displacement of the left lateral malleolus and medial clear space. Increased talar tilt can be appreciated compared to prior radiographs. Interpreted by: Peter Mosquera DO Signed by: Peter Mosquera DO 10/20/22 Final result Normal [facility] FLUORO FOR SURGICAL PROCEDUR ESon 10-19-2022 FLUORO FOR SURGICAL PROCEDURES Radiology exam is complete. No Radiologist dictation. Please follow up with ordering provider. 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 PROCEDURES: 1. Irrigation, excisional debridement of skin down to and including the bone of postsurgical wound, left medial ankle measuring 5 x 4 cm. 2. Revision of open reduction and internal fixation of left lateral malleolus. 3. Open fixation, left syndesmosis. 4. Placement of Integra Xenograft over a 5 x 4 cm wound. 5. Removal of deep implant, left ankle. 6. Application of negative pressure wound VAC, left ankle. 7. Stress examination of left ankle with independent interpretation and imaging. SURGEON: Fredrick Babin DO ASSISTANTS: Benson Rausch DO, PGY-5 and Srinivasa Hilario DO, PGY-2 ANESTHESIA: General. ESTIMATED BLOOD LOSS: 30 mL. FLUIDS: 1000 mL of crystalloid. TOURNIQUET TIME: 89 minutes. COMPLICATIONS: None. SPECIMENS: None. IMPLANTS: Caballero and Nephew distal fibular locking plate and Integra particulate and Integra glycosaminoglycan layer. FINDINGS: Hardware failure of left ankle with 5 x 4 cm open wound to medial ankle. INDICATIONS: This is a 67-year-old male who initially underwent open reduction and internal fixation of the left open trimalleolar ankle fracture by Dr. Mosquera on 09/06/2022. The patient admits today he was walking on his ankle and is somewhat noncompliant. He had hardware failure to the lateral malleolus fixation as well as open wound forming over his prior open ankle wound on the medial aspect of his ankle. I can still ask if I would assist with management of his care. Discussion was had with the patient about revision surgery with debridement and application of graft material of the left ankle. The patient was agreeable. Consent was obtained and placed in chart. All questions were answered appropriately. Surgical risks include, but not limited to bleeding, blood clots, infection, damage to nearby tissues, vessels and nerves; wound healing complications, failed procedure, stiffness, loss of motion, hardware failure or hardware irritation, anesthesia risk, patient's satisfaction, malunion, nonunion, loss of limb, loss of life were all discussed with the patient. Knowing these risks, the patient wished to proceed with surgery as indicated. OPERATIVE PROCEDURE: The patient was taken to the operative suite, placed under general anesthesia without any complications. Ancef 2 gm was given prior to procedure. At this time, all team members paused to identify proper patient name, indications, site and allergies. All team members were in agreeance. The left lower extremity was prepped and draped in normal sterile fashion. We started medially using gravity examination, tourniquet was inflated. We assessed the wound was 5 x 4 cm. There was some fibrous tissue noted about this wound dehiscence medially. We then sharply incised the skin down to the bone of the fibrous tissue until we got to a good bleeding bed of tissue over the tendon posteriorly as well as over the bone more anteriorly. Being satisfied, we thoroughly irrigated the wound with normal saline. We then turned our attention laterally and we reopened the scar that was probably made in the lateral aspect of the ankle. Dissection was carried down meticulously through the skin and subcutaneous tissue. The hardware at about the lateral aspect of the ankle was removed without complication. The fracture had not yet healed. So, we debrided the fracture segment, removed any fibrous tissue from the fracture and then using [id number] clamps as well as K-wires, achieved reduction. Being satisfied, we sized our Caballero and Nephew and lateral distal fibular locking plate and after adequate position on the bone, we drilled, measured and placed bicortical screws proximally and locking screws distally as well as a syndesmotic screw and syndesmotic locking screw stabilizes syndesmosis as preoperative imaging did indicate there was a syndesmotic injury after the hardware failure. Being satisfied, we took final fluoroscopic images. External rotation stress examination was then performed. There was no medial clear space widening or talar tilt noted. We then thoroughly irrigated the wound, changed gloves, placed tobramycin and vancomycin powder, closed the fascial layer using 0 PDS, the deep dermal layer using 2-0 Monocryl and the skin using 2-0 nylon in horizontal mattress fashion. We then turned our attention back laterally and using the Integra particulate matter. We placed that within the wound, within the crevices and then laid our Integra glycosami (more content not included)... Normal [facility] XR ANKLE LEFT (MIN 3 VIEWS)o n 10-19-2022 XR ANKLE LEFT (MIN 3 VIEWS) EXAMINATION: THREE XRAY VIEWS OF THE LEFT ANKLE 10/19/2022 11:14 am COMPARISON: 10/14/2022, 1015 hours HISTORY: ORDERING SYSTEM PROVIDED HISTORY: Post op in PACU TECHNOLOGIST PROVIDED HISTORY: Post op in PACU 67-year-old male who is postop in the PACU FINDINGS: Overlying casting material limits evaluation of fine osseous detail. There new lateral side plates, screws and syndesmotic screws at the lateral aspect of the distal fibula. Threaded screws are seen traversing the medial malleolus. Skin gracie are seen at the medial aspect of the ankle. Hardware appears intact. Osseous alignment is anatomic. Ankle mortise appears intact. Mild plantar calcaneal spur. No superimposed acute osseous abnormality. Anatomic alignment. IMPRESSION: 1. Postsurgical changes related to ORIF of the distal fibula, syndesmosis, and medial malleolus. Hardware appears intact. Anatomic alignment. 2. Overlying casting material limits evaluation of fine osseous detail. 3. No superimposed acute osseous abnormality. Interpreted by: Dallin Pineda MD Signed by: Dallin Pineda MD 10/19/22 Final result Normal [facility] Aerobic Cultureon 09-27-2022 Aerobic Culture ORGANISM: Enterococc us faecalis (O:ENTFAC) Quantity of Growth Moderate Growth Anaerobic Culture Results No Anaerobes Isolated 3 Days Gram Stain Result Rare Gram Positive Cocci Rare Epithelial Cells Rare White Blood Cells Aerobic KIMBERLY Charge (PC45) SUSCEPTIBILITY ORGANISM: O:ENTFAC ANTIBIOTIC INTERPRETATION KIMBERLY Ampicillin S 8 Daptomycin S 4 Erythromycin R >4 Linezolid S <2 Penicillin S 8 Rifampin R >2 Vancomycin S 1 S = SUSCEPTIBLE I = INTERMEDIATE R = RESISTANT BLANK = DATA NOT AVAILABLE, OR DRUG NOT ADVISABLE OR TESTED R* = RESISTANCE DUE TO EXTENDED SPECTRUM BETA-LACTAMASES ESBL = EXTENDED SPECTRUM BETA-LACTAMASE TFG = THYMIDINE-DEPENDENT STRAIN BRITTON = BETA-LACTAMASE POSITIVE IB = INDUCIBLE BETA-LACTAMASE. APPEARS IN PLACE OF 'S' WITH SPECIES KNOWN TO POSSESS INDUCIBLE BETA-LACTAMASES. POTENTIALLY THEY MAY BECOME RESISTANT TO ALL B-LACTAM DRUGS. PERFORMED BY: [place] [address] PATHOLOGIST [employer] MECH[employer]IC XU TAPIA M.D. Normal [facility] Comment on above: Performed By: #### G USMAN #### Point of Care testing , Anaerobic cultureOrdered By: Molly Rivera on 09-27-2022 Bacteria identified Anaer cx Nom (Unsp spec) [facility] Bacteria identified Aer cx N om (Unsp spec)Ordered By: Molly Rivera on 09-27-2022 Aerobic Culture Enterococcus faecalis [facility] Basic Metabolic Panelon 12-0 Anion gap [Moles/Vol] 10.1 mmol/L Normal 6.0-15.0 [facility] Comment on above: Performed By: #### C MP, CBC, PAB #### [facility] [address] [place] [address] Calcium [Mass/Vol] 8.0 mg/dL Low 8.2-10.2 [facility] Comment on above: Performed By: #### C MP, CBC, PAB #### [facility] [address] Chloride [Moles/Vol] 105 mmol/L Normal 95-114 [facility] Comment on above: Performed By: #### C MP, CBC, PAB #### [address] CO2 [Moles/Vol] 27.1 mmol/L Normal 22.0-30.0 [facility] Comment on above: Performed By: #### C MP, CBC, PAB #### [address] Creatinine [Mass/Vol] 0.72 mg/dL Normal 0.64-1.27 [facility] Comment on above: Performed By: #### C MP, CBC, PAB #### [address] Creatinine Clr Calc Pharmacy 108.46 [facility] Comment on above: Result Comment: PERF ORMED BY: [place] [address] PATHOLOGIST [employer] XU TAPIA M.D. Performed By: #### C MP, CBC, PAB #### [address] Estimated GFR ( Marie > 60 [facility] Comment on above: Result Comment: GFR estimated reference range: According to KDOQI guidelines, <60 ml/min/1.73m2 is sufficient to diagnose a patient with chronic kidney disease. Performed By: #### C MP, CBC, PAB #### [address] Estimated GFR (Non- Am > 60 [facility] Comment on above: Performed By: #### C MP, CBC, PAB #### [address] Glucose [Mass/Vol] 90 mg/dL Normal 70-100 [facility] Comment on above: Result Comment: [place] om Glucose Reference Range is dependent on time and content of last meal. Glucose of more than 200 mg/dL in a nonstressed, ambulatory subject supports the diagnosis of Diabetes Mellitus. ADA recommended reference range Performed By: #### C MP, CBC, PAB #### [facility] [address] Potassium [Moles/Vol] 4.2 mmol/L Normal 3.5-5.1 [facility] Comment on above: Performed By: #### C MP, CBC, PAB #### [facility] [address] Sodium [Moles/Vol] 138 mmol/L Normal 136-146 [facility] Comment on above: Performed By: #### C MP, CBC, PAB #### [facility] [address] Urea nitrogen [Mass/Vol] 9 mg/dL Normal 9-23 [facility] Comment on above: Performed By: #### C MP, CBC, PAB #### [facility] [address] [place] [address] [place] Basophils Auto (Bld) [#/Vol] Ordered By: Gordon Smith on 09-27-2022 Basophils (Bld) [#/Vol] 0.1 10*3/uL 0.0-0.2 [facility] Basophils/100 WBC Auto (Bld) Ordered By: Gordon Smith on 09-27-2022 Basophils/100 WBC (Bld) 1.0 % . F [facility] Complete Blood Count Auto Di ffon 09-27-2022 Basophils (Bld) [#/Vol] 0.1 10*3/uL Normal 0.0-0.2 [facility] Comment on above: Result Comment: PERF ORMED BY: [place] [address] PATHOLOGIST [employer] XU TAPIA M.D. Performed By: #### C MP, CBC, PAB #### [facility] [address] Basophils/100 WBC (Bld) 1.0 % Normal . F [facility] Comment on above: Performed By: #### C MP, CBC, PAB #### [facility] [address] [place] [address] [place] Eosinophils (Bld) [#/Vol] 0.3 10*3/uL Normal 0.0-0.45 [facility] Comment on above: Performed By: #### C MP, CBC, PAB #### [address] Eosinophils/100 WBC (Bld) 4.8 % Normal . [facility] Comment on above: Performed By: #### C MP, CBC, PAB #### [address] Erythrocyte distribution width (RBC) [Ratio] 15.8 % High 12.0-14.8 [facility] Comment on above: Performed By: #### C MP, CBC, PAB #### [address] Hematocrit (Bld) [Volume fraction] 29.5 % Low 38.8-50.0 [facility] Comment on above: Performed By: #### C MP, CBC, PAB #### [address] Hemoglobin (Bld) [Mass/Vol] 9.5 g/dL Low 13.0-17.0 [facility] Comment on above: Performed By: #### C MP, CBC, PAB #### [address] Lymphocytes (Bld) [#/Vol] 1.1 10*3/uL Normal 1.00-4.8 [facility] Comment on above: Performed By: #### C MP, CBC, PAB #### [address] Lymphocytes/100 WBC (Bld) 17.0 % Normal . [facility] Comment on above: Performed By: #### C MP, CBC, PAB #### [address] MCH (RBC) [Entitic mass] 30.4 pg Normal 27.5-35.2 [facility] Comment on above: Performed By: #### C MP, CBC, PAB #### [address] [place] [address] [place] MCV (RBC) [Entitic vol] 94.2 fL Normal 83.5-101 F [facility] Comment on above: Performed By: #### C MP, CBC, PAB #### [facility] [address] Mean Corpuscular HGB Conc 32.3 g/dL Low 32.5-35.6 [facility] Comment on above: Performed By: #### C MP, CBC, PAB #### [facility] [address] [place] [address] [place] Monocytes (Bld) [#/Vol] 0.6 10*3/uL Normal 0.0-0.8 [facility] Comment on above: Performed By: #### C MP, CBC, PAB #### [address] Monocytes/100 WBC (Bld) 9.6 % Normal . F [facility] Comment on above: Performed By: #### C MP, CBC, PAB #### [place] [address] [place] Neutrophils (Bld) [#/Vol] 4.3 10*3/uL Normal 1.8-7.7 [facility] Comment on above: Performed By: #### C MP, CBC, PAB #### [address] Neutrophils/100 WBC (Bld) 67.6 % Normal . [facility] Comment on above: Performed By: #### C MP, CBC, PAB #### [place] [address] [place] NRBC% 0.0 /100{WBC} Normal 0-0.5 [facility] Comment on above: Performed By: #### C MP, CBC, PAB #### [address] Platelet mean volume (Bld) [Entitic vol] 8.2 fL Normal 6.6-10.1 [facility] Comment on above: Performed By: #### C MP, CBC, PAB #### [facility] [address] [place] [address] [place] Platelets (Bld) [#/Vol] 352 10*3/uL Normal 150-450 [facility] Comment on above: Performed By: #### C MP, CBC, PAB #### [facility] [address] RBC (Bld) [#/Vol] 3.13 10*6/uL Low 3.90-5.60 [facility] Comment on above: Performed By: #### C MP, CBC, PAB #### [facility] [address] [place] [address] [place] WBC (Bld) [#/Vol] 6.3 10*3/uL Normal 4.1-10.5 [facility] Comment on above: Performed By: #### C MP, CBC, PAB #### [facility] [address] Creatinine and Glomerular fi ltration rate.predicted panel (S/P/Bld)Ordered By: Gordon Smith on 09-27-2022 Creatinine [Mass/Vol] 0.72 mg/dL 0.64-1.27 [facility] Eosinophils Auto (Bld) [#/Vo l]Ordered By: Gordon Smith on 09-27-2022 Eosinophils (Bld) [#/Vol] 0.3 10*3/uL 0.0-0.45 [facility] Eosinophils/100 WBC Auto (Bl d)Ordered By: Gordon Smith on 09-27-2022 Eosinophils/100 WBC (Bld) 4.8 % . [facility] Erythrocyte distribution wid th Auto (RBC) [Ratio]Ordered By: Gordon Smith on 09-27-2022 Erythrocyte distribution width (RBC) [Ratio] 15.8 % 12.0-14.8 [facility] Estimated glomerular filtrat ion rate (GFR) non- AmericanOrdered By: Gordon Smith on 09-27-2022 GFR/1.73 sq M.predicted among non-blacks MDRD (S/P/Bld) [Vol rate/Area] > 60 mL/Min [facility] Gram stain for investigation of transfusion reactionOrdered By: Molly Rivera on 09-27-2022 Microscopic observation Gram stain Nom (Unsp spec) [facility] Hematocrit Auto (Bld) [Volum e fraction]Ordered By: Gordon Smith on 09-27-2022 Hematocrit (Bld) [Volume fraction] 29.5 % 38.8-50.0 [facility] Hemoglobin [Mass/volume] in BloodOrdered By: Gordon Smith on 09-27-2022 Hemoglobin (Bld) [Mass/Vol] 9.5 g/dL 13.0-17.0 [facility] Leukocytes [#/volume] correc tyree for nucleated erythrocytes in Blood by Automated counOrdered By: Gordon Smith on 09-27-2022 WBC corrected for nucl RBC Auto (Bld) [#/Vol] 6.3 10*3/uL 4.1-10.5 [facility] Lymphocytes Auto (Bld) [#/Vo l]Ordered By: Gordon Smith on 09-27-2022 Lymphocytes (Bld) [#/Vol] 1.1 10*3/uL 1.00-4.8 [facility] Lymphocytes/100 WBC Auto (Bl d)Ordered By: Gordon Smith on 09-27-2022 Lymphocytes/100 WBC (Bld) 17.0 % . [facility] MCH Auto (RBC) [Entitic mass ]Ordered By: Gordon Smith on 09-27-2022 MCH (RBC) [Entitic mass] 30.4 pg 27.5-35.2 [facility] MCHC Auto (RBC) [Mass/Vol]Or dered By: Gordon Smith on 09-27-2022 MCHC (RBC) [Mass/Vol] 32.3 g/dL 32.5-35.6 [facility] MCV Auto (RBC) [Entitic vol] Ordered By: Gordon Smith on 09-27-2022 MCV (RBC) [Entitic vol] 94.2 fL 83.5-101 F [facility] Monocytes Auto (Bld) [#/Vol] Ordered By: Gordon Smith on 09-27-2022 Monocytes (Bld) [#/Vol] 0.6 10*3/uL 0.0-0.8 [facility] Monocytes/100 WBC Auto (Bld) Ordered By: Gordon Smith on 09-27-2022 Monocytes/100 WBC (Bld) 9.6 % . F [facility] Neutrophils Auto (Bld) [#/Vo l]Ordered By: Gordon Smith on 09-27-2022 Neutrophils (Bld) [#/Vol] 4.3 10*3/uL 1.8-7.7 [facility] Neutrophils/100 WBC Auto (Bl d)Ordered By: Gordon Smith on 09-27-2022 Neutrophils/100 WBC (Bld) 67.6 % . [facility] No Panel InformationOrdered By: Gordon Smith on 09-27-2022 Estimated GFR () > 60 mL/Min [facility] Comment on above: GFR estimated refere nce range: According to KDOQI guidelines, <60 ml/min/1.73m2 is sufficient to diagnose a patient with chronic kidney disease. Pharmacy Creatinine Clearance (Chem 108.46 [facility] Nucleated erythrocytes [Pres ence] in Blood by Automated countOrdered By: Gordon Smith on 09-27-2022 Nucleated RBC Auto Ql (Bld) 0.0 /100{WBC} 0-0.5 [facility] Platelet mean volume Auto (B ld) [Entitic vol]Ordered By: Gordon Smith on 09-27-2022 Platelet mean volume (Bld) [Entitic vol] 8.2 fL 6.6-10.1 [facility] Platelets Auto (Bld) [#/Vol] Ordered By: Gordon Smith on 09-27-2022 Platelets (Bld) [#/Vol] 352 10*3/uL 150-450 [facility] RBC Auto (Bld) [#/Vol]Ordere d By: Gordon Smith on 09-27-2022 RBC (Bld) [#/Vol] 3.13 10*6/uL 3.90-5.60 [facility] Serum or plasma anion gap de terminationOrdered By: Gordon Smith on 09-27-2022 Anion gap [Moles/Vol] 10.1 mmol/L 6.0-15.0 [facility] Serum or plasma calcium berhane urement (mass/volume)Ordered By: Gordon Smith on 09-27-2022 Calcium [Mass/Vol] 8.0 mg/dL 8.2-10.2 [facility] Serum or plasma chloride elle surement (moles/volume)Ordered By: Gordon Smith on 09-27-2022 Chloride [Moles/Vol] 105 mmol/L 95-114 [facility] Serum or plasma glucose berhane urement (mass/volume)Ordered By: Gordon Smith on 09-27-2022 Glucose [Mass/Vol] 90 mg/dL 70-100 [facility] Comment on above: ADA recommended refe rence rangeRandom Glucose Reference Range is dependent on time and content of last meal. Glucose of more than 200 mg/dL in a nonstressed, ambulatory subject supports the diagnosis of Diabetes Mellitus. Serum or plasma potassium me asurement (moles/volume)Ordered By: Gordon Smith on 09-27-2022 Potassium [Moles/Vol] 4.2 mmol/L 3.5-5.1 [facility] Serum or plasma sodium measu rement (moles/volume)Ordered By: Gordon Smith on 09-27-2022 Sodium [Moles/Vol] 138 mmol/L 136-146 [facility] Serum or plasma total carbon dioxide measurement (moles/volume)Ordered By: Gordon Smith on 09-27-2022 CO2 [Moles/Vol] 27.1 mmol/L 22.0-30.0 [facility] Serum or plasma urea nitroge n measurement (mass/volume)Ordered By: Gordon Smith on 09-27-2022 Urea nitrogen [Mass/Vol] 9 mg/dL 9-23 [facility] US venous duplex LE BIon [place] [address] Ultrasound Report Signed Patient: Indio Collado MR#: [id number] 8 : 1955 Acct:[id number] Age/Sex: 67 / M ADM Date: 09/11/22 Loc: Room: [address] [place] [address] Type: ADM IN Attending Dr: Gordon Smith MD Ordering Provider: Gordon Smith MD Date of Service: 09/27/22 US/US venous duplex LE BI: surveillance right distal dvt Copies to: Gordon Smith MD Bilateral lower extremity venous duplex evaluation INDICATIONS: Surveillance of right leg distal deep vein thromboses after leg fracture Findings: Left lower extremity: Compression color flow and augmentation were all normal. No thrombus was identified. Right lower extremity: Residual thrombus was identified in the right posterior tibial vein midsegment. The remainder of the veins appear normal. US/US venous duplex LE BI IMPRESSION: Resolving DVT right lower extremity tibial location. Impression dictated by: Chirag Hatch MD09/27/2022 2:17 PM Dictation Location: [place] [address] Tech: Mirna Sharma Transcribed By: [facility] 09/27/221416 Dictated By: Chirag Hatch MD 09/27/221415 Signed By: 09/27/221416 Normal [facility] WBC Auto (Bld) [#/Vol]Ordere d By: Gordon Smith on 09-27-2022 WBC (Bld) [#/Vol] 6.3 10*3/uL 4.1-10.5 [facility] Complete Blood Count Auto Di ffon 09-26-2022 Basophils (Bld) [#/Vol] 0.1 10*3/uL Normal 0.0-0.2 [facility] Comment on above: Result Comment: PERF ORMED BY: [facility] [address] [place] [address] PATHOLOGIST [employer] XU TAPIA M.D. Performed By: #### G LULS #### Point of Care testing , Basophils/100 WBC (Bld) 2.1 % Normal . F [facility] Comment on above: Performed By: #### G LULS #### Point of Care testing , Eosinophils (Bld) [#/Vol] 0.4 10*3/uL Normal 0.0-0.45 [facility] Comment on above: Performed By: #### G LULS #### Point of Care testing , Eosinophils/100 WBC (Bld) 7.6 % Normal . [facility] Comment on above: Performed By: #### G LULS #### Point of Care testing , Erythrocyte distribution width (RBC) [Ratio] 15.9 % High 12.0-14.8 [facility] Comment on above: Performed By: #### G USMAN #### Point of Care testing , Hematocrit (Bld) [Volume fraction] 28.6 % Low 38.8-50.0 [facility] Comment on above: Performed By: #### G HUGOLS #### Point of Care testing , Hemoglobin (Bld) [Mass/Vol] 9.4 g/dL Low 13.0-17.0 [facility] Comment on above: Performed By: #### G HUGOLS #### Point of Care testing , Lymphocytes (Bld) [#/Vol] 1.2 10*3/uL Normal 1.00-4.8 [facility] Comment on above: Performed By: #### G HUGOLS #### Point of Care testing , Lymphocytes/100 WBC (Bld) 23.5 % Normal . [facility] Comment on above: Performed By: #### G HUGOLS #### Point of Care testing , MCH (RBC) [Entitic mass] 30.9 pg Normal 27.5-35.2 [facility] Comment on above: Performed By: #### G HUGOLS #### Point of Care testing , MCV (RBC) [Entitic vol] 93.9 fL Normal 83.5-101 [facility] Comment on above: Performed By: #### G HUGOLS #### Point of Care testing , Mean Corpuscular HGB Conc 32.9 g/dL Normal 32.5-35.6 [facility] Comment on above: Performed By: #### G USMAN #### Point of Care testing , Monocytes (Bld) [#/Vol] 0.5 10*3/uL Normal 0.0-0.8 [facility] Comment on above: Performed By: #### G HUGOLS #### Point of Care testing , Monocytes/100 WBC (Bld) 10.0 % Normal . [facility] Comment on above: Performed By: #### G HUGOLS #### Point of Care testing , Neutrophils (Bld) [#/Vol] 2.8 10*3/uL Normal 1.8-7.7 [facility] Comment on above: Performed By: #### G HUGOLS #### Point of Care testing , Neutrophils/100 WBC (Bld) 56.8 % Normal . [facility] Comment on above: Performed By: #### G HUGOLS #### Point of Care testing , NRBC% 0.2 /100{WBC} Normal 0-0.5 [facility] Comment on above: Performed By: #### G LULS #### Point of Care testing , Platelet mean volume (Bld) [Entitic vol] 7.9 fL Normal 6.6-10.1 [facility] Comment on above: Performed By: #### G HUGOLS #### Point of Care testing , Platelets (Bld) [#/Vol] 371 10*3/uL Normal 150-450 [facility] Comment on above: Performed By: #### G HUGOLS #### Point of Care testing , RBC (Bld) [#/Vol] 3.04 10*6/uL Low 3.90-5.60 [facility] Comment on above: Performed By: #### G USMAN #### Point of Care testing , WBC (Bld) [#/Vol] 4.9 10*3/uL Normal 4.1-10.5 [facility] Comment on above: Performed By: #### G HUGOLS #### Point of Care testing , Complete Blood Count Auto Di ffon 09-23-2022 Basophils (Bld) [#/Vol] 0.1 10*3/uL Normal 0.0-0.2 [facility] Comment on above: Result Comment: PERF ORMED BY: [facility] [address] [place] [address] PATHOLOGIST [employer] XU TAPIA M.D. Performed By: #### G LULS #### Point of Care testing , Basophils/100 WBC (Bld) 1.3 % Normal . [facility] Comment on above: Performed By: #### G LULS #### Point of Care testing , Eosinophils (Bld) [#/Vol] 0.3 10*3/uL Normal 0.0-0.45 [facility] Comment on above: Performed By: #### G USMAN #### Point of Care testing , Eosinophils/100 WBC (Bld) 4.7 % Normal . [facility] Comment on above: Performed By: #### G HUGOLS #### Point of Care testing , Erythrocyte distribution width (RBC) [Ratio] 16.1 % High 12.0-14.8 [facility] Comment on above: Performed By: #### G HUGOLS #### Point of Care testing , Hematocrit (Bld) [Volume fraction] 27.6 % Low 38.8-50.0 [facility] Comment on above: Performed By: #### G HUGOLS #### Point of Care testing , Hemoglobin (Bld) [Mass/Vol] 9.0 g/dL Low 13.0-17.0 [facility] Comment on above: Performed By: #### G USMAN #### Point of Care testing , Lymphocytes (Bld) [#/Vol] 1.4 10*3/uL Normal 1.00-4.8 [facility] Comment on above: Performed By: #### Bethel MARY #### Point of Care testing , Lymphocytes/100 WBC (Bld) 20.0 % Normal . [facility] Comment on above: Performed By: #### G HUGOLS #### Point of Care testing , MCH (RBC) [Entitic mass] 31.0 pg Normal 27.5-35.2 [facility] Comment on above: Performed By: #### G HUGOLS #### Point of Care testing , MCV (RBC) [Entitic vol] 95.3 fL Normal 83.5-101 F [facility] Comment on above: Performed By: #### G HUGOLS #### Point of Care testing , Mean Corpuscular HGB Conc 32.5 g/dL Normal 32.5-35.6 [facility] Comment on above: Performed By: #### G USMAN #### Point of Care testing , Monocytes (Bld) [#/Vol] 0.6 10*3/uL Normal 0.0-0.8 [facility] Comment on above: Performed By: #### G LULS #### Point of Care testing , Monocytes/100 WBC (Bld) 8.8 % Normal . [facility] Comment on above: Performed By: #### G LULS #### Point of Care testing , Neutrophils (Bld) [#/Vol] 4.6 10*3/uL Normal 1.8-7.7 [facility] Comment on above: Performed By: #### G LULS #### Point of Care testing , Neutrophils/100 WBC (Bld) 65.2 % Normal . [facility] Comment on above: Performed By: #### G LULS #### Point of Care testing , NRBC% 0.0 /100{WBC} Normal 0-0.5 [facility] Comment on above: Performed By: #### G LULS #### Point of Care testing , Platelet mean volume (Bld) [Entitic vol] 8.1 fL Normal 6.6-10.1 [facility] Comment on above: Performed By: #### G LULS #### Point of Care testing , Platelets (Bld) [#/Vol] 362 10*3/uL Normal 150-450 [facility] Comment on above: Performed By: #### G LULS #### Point of Care testing , RBC (Bld) [#/Vol] 2.90 10*6/uL Low 3.90-5.60 [facility] Comment on above: Performed By: #### G LULS #### Point of Care testing , WBC (Bld) [#/Vol] 7.0 10*3/uL Normal 4.1-10.5 [facility] Comment on above: Performed By: #### G LULS #### Point of Care testing , Complete Blood Count Auto Di ffon 09-22-2022 Basophils (Bld) [#/Vol] 0.1 10*3/uL Normal 0.0-0.2 [facility] Comment on above: Result Comment: PERF ORMED BY: [facility] [address] PATHOLOGIST [employer] XU TAPIA M.D. Performed By: #### G LULS #### Point of Care testing , Basophils/100 WBC (Bld) 1.3 % Normal . [facility] Comment on above: Performed By: #### G LULS #### Point of Care testing , Eosinophils (Bld) [#/Vol] 0.3 10*3/uL Normal 0.0-0.45 [facility] Comment on above: Performed By: #### G LULS #### Point of Care testing , Eosinophils/100 WBC (Bld) 4.4 % Normal . [facility] Comment on above: Performed By: #### G LULS #### Point of Care testing , Erythrocyte distribution width (RBC) [Ratio] 16.1 % High 12.0-14.8 [facility] Comment on above: Performed By: #### G LULS #### Point of Care testing , Hematocrit (Bld) [Volume fraction] 26.6 % Low 38.8-50.0 [facility] Comment on above: Performed By: #### G LULS #### Point of Care testing , Hemoglobin (Bld) [Mass/Vol] 8.7 g/dL Low 13.0-17.0 [facility] Comment on above: Performed By: #### G LULS #### Point of Care testing , Lymphocytes (Bld) [#/Vol] 1.3 10*3/uL Normal 1.00-4.8 [facility] Comment on above: Performed By: #### G LULS #### Point of Care testing , Lymphocytes/100 WBC (Bld) 22.0 % Normal . [facility] Comment on above: Performed By: #### G LULS #### Point of Care testing , MCH (RBC) [Entitic mass] 31.1 pg Normal 27.5-35.2 [facility] Comment on above: Performed By: #### G LULS #### Point of Care testing , MCV (RBC) [Entitic vol] 95.0 fL Normal 83.5-101 F [facility] Comment on above: Performed By: #### G LULS #### Point of Care testing , Mean Corpuscular HGB Conc 32.8 g/dL Normal 32.5-35.6 [facility] Comment on above: Performed By: #### G HUGOLS #### Point of Care testing , Monocytes (Bld) [#/Vol] 0.5 10*3/uL Normal 0.0-0.8 [facility] Comment on above: Performed By: #### G LULS #### Point of Care testing , Monocytes/100 WBC (Bld) 8.7 % Normal . [facility] Comment on above: Performed By: #### G LULS #### Point of Care testing , Neutrophils (Bld) [#/Vol] 3.9 10*3/uL Normal 1.8-7.7 [facility] Comment on above: Performed By: #### G HUGOLS #### Point of Care testing , Neutrophils/100 WBC (Bld) 63.6 % Normal . [facility] Comment on above: Performed By: #### G HUGOLS #### Point of Care testing , NRBC% 0.2 /100{WBC} Normal 0-0.5 [facility] Comment on above: Performed By: #### G HUGOLS #### Point of Care testing , Platelet mean volume (Bld) [Entitic vol] 8.5 fL Normal 6.6-10.1 [facility] Comment on above: Performed By: #### G HUGOLS #### Point of Care testing , Platelets (Bld) [#/Vol] 339 10*3/uL Normal 150-450 [facility] Comment on above: Performed By: #### G USMAN #### Point of Care testing , RBC (Bld) [#/Vol] 2.80 10*6/uL Low 3.90-5.60 [facility] Comment on above: Performed By: #### G LULS #### Point of Care testing , WBC (Bld) [#/Vol] 6.1 10*3/uL Normal 4.1-10.5 [facility] Comment on above: Performed By: #### G LULS #### Point of Care testing , Basic Metabolic Panelon 11-2 Anion gap [Moles/Vol] 9.4 mmol/L Normal 6.0-15.0 [facility] Comment on above: Performed By: #### C MP, CBC, PAB #### [facility] [address] [place] [address] [place] Calcium [Mass/Vol] 7.9 mg/dL Low 8.2-10.2 [facility] Comment on above: Performed By: #### C MP, CBC, PAB #### [facility] [address] [place] [address] [place] Chloride [Moles/Vol] 104 mmol/L Normal 95-114 [facility] Comment on above: Performed By: #### C MP, CBC, PAB #### [facility] [address] CO2 [Moles/Vol] 29.0 mmol/L Normal 22.0-30.0 [facility] Comment on above: Performed By: #### C MP, CBC, PAB #### [facility] [address] [place] [address] [place] Creatinine [Mass/Vol] 0.77 mg/dL Normal 0.64-1.27 [facility] Comment on above: Performed By: #### C MP, CBC, PAB #### [facility] [address] [place] [address] [place] Creatinine Clr Calc Pharmacy 111.64 [facility] Comment on above: Result Comment: PERF ORMED BY: [place] [address] PATHOLOGIST [employer] ME[employer]IC XU TAPIA M.D. Performed By: #### C MP, CBC, PAB #### [facility] [address] [place] [address] [place] Estimated GFR ( Marie > [address] [facility] Comment on above: Result Comment: GFR estimated reference range: According to KDOQI guidelines, <60 ml/min/1.73m2 is sufficient to diagnose a patient with chronic kidney disease. Performed By: #### C MP, CBC, PAB #### [address] Estimated GFR (Non- Am > [address] [facility] Comment on above: Performed By: #### C MP, CBC, PAB #### [address] Glucose [Mass/Vol] 81 mg/dL Normal 70-100 [facility] Comment on above: Result Comment: [place] Glucose Reference Range is dependent on time and content of last meal. Glucose of more than 200 mg/dL in a nonstressed, ambulatory subject supports the diagnosis of Diabetes Mellitus. ADA recommended reference range Performed By: #### C MP, CBC, PAB #### [address] Potassium [Moles/Vol] 4.4 mmol/L Normal 3.5-5.1 [facility] Comment on above: Performed By: #### C MP, CBC, PAB #### [address] Sodium [Moles/Vol] 138 mmol/L Normal 136-146 [facility] Comment on above: Performed By: #### C MP, CBC, PAB #### [address] Urea nitrogen [Mass/Vol] 8 mg/dL Low 9-23 [facility] Comment on above: Performed By: #### C MP, CBC, PAB #### [address] Complete Blood Count Auto Di ffon 09-21-2022 Basophils (Bld) [#/Vol] 0.1 10*3/uL Normal 0.0-0.2 [facility] Comment on above: Result Comment: PERF ORMED BY: [place] [address] PATHOLOGIST [employer] ME[employer]IC XU TAPIA M.D. Performed By: #### C MP, CBC, PAB #### [address] [address] [place] Basophils/100 WBC (Bld) 1.5 % Normal . [facility] Comment on above: Performed By: #### C MP, CBC, PAB #### [facility] [address] [place] [address] [place] Eosinophils (Bld) [#/Vol] 0.4 10*3/uL Normal 0.0-0.45 [facility] Comment on above: Performed By: #### C MP, CBC, PAB #### [address] Eosinophils/100 WBC (Bld) 6.3 % Normal . [facility] Comment on above: Performed By: #### C MP, CBC, PAB #### [address] Erythrocyte distribution width (RBC) [Ratio] 16.0 % High 12.0-14.8 [facility] Comment on above: Performed By: #### C MP, CBC, PAB #### [address] Hematocrit (Bld) [Volume fraction] 25.5 % Low 38.8-50.0 [facility] Comment on above: Performed By: #### C MP, CBC, PAB #### [address] Hemoglobin (Bld) [Mass/Vol] 8.3 g/dL Low 13.0-17.0 [facility] Comment on above: Performed By: #### C MP, CBC, PAB #### [place] [address] [place] Lymphocytes (Bld) [#/Vol] 1.6 10*3/uL Normal 1.00-4.8 [facility] Comment on above: Performed By: #### C MP, CBC, PAB #### [place] [address] [place] Lymphocytes/100 WBC (Bld) 24.7 % Normal . [facility] Comment on above: Performed By: #### C MP, CBC, PAB #### [address] [place] [address] [place] MCH (RBC) [Entitic mass] 31.3 pg Normal 27.5-35.2 [facility] Comment on above: Performed By: #### C MP, CBC, PAB #### [facility] [address] MCV (RBC) [Entitic vol] 95.9 fL Normal 83.5-101 [facility] Comment on above: Performed By: #### C MP, CBC, PAB #### [facility] [address] Mean Corpuscular HGB Conc 32.7 g/dL Normal 32.5-35.6 [facility] Comment on above: Performed By: #### C MP, CBC, PAB #### [address] Monocytes (Bld) [#/Vol] 0.6 10*3/uL Normal 0.0-0.8 [facility] Comment on above: Performed By: #### C MP, CBC, PAB #### [address] Monocytes/100 WBC (Bld) 9.1 % Normal . [facility] Comment on above: Performed By: #### C MP, CBC, PAB #### [address] Neutrophils (Bld) [#/Vol] 3.7 10*3/uL Normal 1.8-7.7 [facility] Comment on above: Performed By: #### C MP, CBC, PAB #### [place] [address] [place] Neutrophils/100 WBC (Bld) 58.4 % Normal . [facility] Comment on above: Performed By: #### C MP, CBC, PAB #### [address] Platelet mean volume (Bld) [Entitic vol] 8.3 fL Normal 6.6-10.1 [facility] Comment on above: Performed By: #### C MP, CBC, PAB #### [facility] [address] [place] [address] Platelets (Bld) [#/Vol] 372 10*3/uL Normal 150-450 [facility] Comment on above: Performed By: #### C MP, CBC, PAB #### [address] RBC (Bld) [#/Vol] 2.66 10*6/uL Low 3.90-5.60 [facility] Comment on above: Performed By: #### C MP, CBC, PAB #### [address] WBC (Bld) [#/Vol] 6.4 10*3/uL Normal 4.5-11.0 [facility] Comment on above: Performed By: #### C MP, CBC, PAB #### [address] Complete Blood Count Auto Di ffOrdered By: Gordon Smith on 09-21-2022 Nucleated RBC/100 WBC (Bld) [Ratio] 0.1 % 0-0.5 [facility] Comment on above: Performed By: #### C MP, CBC, PAB #### [address] Complete Blood Count Auto Di ffon 09-20-2022 Basophils (Bld) [#/Vol] 0.1 10*3/uL Normal 0.0-0.2 [facility] Comment on above: Result Comment: PERF ORMED BY: [place] [address] PATHOLOGIST [employer]IC XU TAPIA M.D. Performed By: #### C BC #### [address] Basophils/100 WBC (Bld) 1.2 % Normal . [facility] Comment on above: Performed By: #### C BC #### [address] Eosinophils (Bld) [#/Vol] 0.3 10*3/uL Normal 0.0-0.45 [facility] Comment on above: Performed By: #### C BC #### [facility] [address] Eosinophils/100 WBC (Bld) 4.6 % Normal . [facility] Comment on above: Performed By: #### C BC #### [facility] [address] Erythrocyte distribution width (RBC) [Ratio] 16.3 % High 12.0-14.8 [facility] Comment on above: Performed By: #### C BC #### [address] Hematocrit (Bld) [Volume fraction] 26.4 % Low 38.8-50.0 [facility] Comment on above: Performed By: #### C BC #### [address] Hemoglobin (Bld) [Mass/Vol] 8.7 g/dL Low 13.0-17.0 [facility] Comment on above: Performed By: #### C BC #### [address] Lymphocytes (Bld) [#/Vol] 1.4 10*3/uL Normal 1.00-4.8 [facility] Comment on above: Performed By: #### C BC #### [address] Lymphocytes/100 WBC (Bld) 20.0 % Normal . [facility] Comment on above: Performed By: #### C BC #### [address] MCH (RBC) [Entitic mass] 31.8 pg Normal 27.5-35.2 [facility] Comment on above: Performed By: #### C BC #### [address] MCV (RBC) [Entitic vol] 96.0 fL Normal 83.5-101 F [facility] Comment on above: Performed By: #### C BC #### [facility] [address] Mean Corpuscular HGB Conc 33.2 g/dL Normal 32.5-35.6 [facility] Comment on above: Performed By: #### C BC #### [facility] [address] Monocytes (Bld) [#/Vol] 0.6 10*3/uL Normal 0.0-0.8 [facility] Comment on above: Performed By: #### C BC #### [facility] [address] Monocytes/100 WBC (Bld) 8.5 % Normal . [facility] Comment on above: Performed By: #### C BC #### [address] Neutrophils (Bld) [#/Vol] 4.5 10*3/uL Normal 1.8-7.7 [facility] Comment on above: Performed By: #### C BC #### [address] Neutrophils/100 WBC (Bld) 65.7 % Normal . [facility] Comment on above: Performed By: #### C BC #### [place] [address] [place] Nucleated RBC/100 WBC (Bld) [Ratio] 0.0 % Normal 0-0.5 [facility] Comment on above: Performed By: #### C BC #### [place] [address] [place] Platelet mean volume (Bld) [Entitic vol] 8.3 fL Normal 6.6-10.1 [facility] Comment on above: Performed By: #### C BC #### [place] [address] [place] Platelets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 Normal . [facility] Comment on above: Performed By: #### C MP, CBC, PAB #### [address] MCH (RBC) [Entitic mass] 31.3 pg Normal 27.5-35.2 [facility] Comment on above: Performed By: #### C MP, CBC, PAB #### [address] MCV (RBC) [Entitic vol] 94.6 fL Normal 83.5-101 F [facility] Comment on above: Performed By: #### C MP, CBC, PAB #### [facility] [address] Mean Corpuscular HGB Conc 33.1 g/dL Normal 32.5-35.6 [facility] Comment on above: Performed By: #### C MP, CBC, PAB #### [facility] [address] Monocytes (Bld) [#/Vol] 0.8 10*3/uL Normal 0.0-0.8 [facility] Comment on above: Performed By: #### C MP, CBC, PAB #### [facility] [address] Monocytes/100 WBC (Bld) 12.0 % Normal . [facility] Comment on above: Performed By: #### C MP, CBC, PAB #### [facility] [address] Neutrophils (Bld) [#/Vol] 3.8 10*3/uL Normal 1.8-7.7 [facility] Comment on above: Performed By: #### C MP, CBC, PAB #### [address] Neutrophils/100 WBC (Bld) 57.1 % Normal . [facility] Comment on above: Performed By: #### C MP, CBC, PAB #### [facility] [address] [place] [address] [place] Nucleated RBC/100 WBC (Bld) [Ratio] 0.0 % Normal 0-0.5 [facility] Comment on above: Performed By: #### C MP, CBC, PAB #### [facility] [address] Platelet mean volume (Bld) [Entitic vol] 8.6 fL Normal 6.6-10.1 [facility] Comment on above: Performed By: #### C MP, CBC, PAB #### [facility] [address] Platelets (Bld) [#/Vol] 280 10*3/uL Normal 150-450 [facility] Comment on above: Performed By: #### C MP, CBC, PAB #### [address] RBC (Bld) [#/Vol] 2.50 10*6/uL Low 3.90-5.60 [facility] Comment on above: Performed By: #### C MP, CBC, PAB #### [address] WBC (Bld) [#/Vol] 6.7 10*3/uL Normal 4.5-11.0 [facility] Comment on above: Performed By: #### C MP, CBC, PAB #### [address] Comprehensive Metabolic Pane carl 09-12-2022 Albumin [Mass/Vol] 1.7 g/dL Low 3.2-5.5 [facility] Comment on above: Performed By: #### C MP, CBC, PAB #### [address] Albumin/Globulin [Mass ratio] 0.8 {ratio} [facility] Comment on above: Performed By: #### C MP, CBC, PAB #### [facility] [address] [place] [address] ALP [Catalytic activity/Vol] 58 U/L Normal 32-92 [facility] Comment on above: Performed By: #### C MP, CBC, PAB #### [facility] [address] [place] [address] ALT [Catalytic activity/Vol] 15 U/L Normal 10-60 [facility] Comment on above: Performed By: #### C MP, CBC, PAB #### [facility] [address] [place] [address] Anion gap [Moles/Vol] 6.7 mmol/L Normal 6.0-15.0 [facility] Comment on above: Performed By: #### C MP, CBC, PAB #### [facility] [address] [place] [id number] [place] AST [Catalytic activity/Vol] 13 U/L Normal 10-42 [facility] Comment on above: Performed By: #### C MP, CBC, PAB #### [facility] [address] [place] [address] [place] Bilirubin [Mass/Vol] 1.5 mg/dL High 0.3-1.2 [facility] Comment on above: Result Comment: Samp les from patients who have taken Naproxen have shown spurious elevation in Total Bilirubin levels. A metabolite of Naproxen, O-desmethylnaproxen, has been shown to interfere with the Jendrissacik-Grof method for measuring Total Bilirubin. Performed By: #### C MP, CBC, PAB #### [facility] [address] Calcium [Mass/Vol] 7.6 mg/dL Low 8.2-10.2 [facility] Comment on above: Performed By: #### C MP, CBC, PAB #### [facility] [address] [place] [id number] [place] Chloride [Moles/Vol] 105 mmol/L Normal 95-114 [facility] Comment on above: Performed By: #### C MP, CBC, PAB #### [facility] [address] [place] [id number] [place] CO2 [Moles/Vol] 30.2 mmol/L High 22.0-30.0 [facility] Comment on above: Performed By: #### C MP, CBC, PAB #### [facility] [address] [place] [id number] [place] Creatinine [Mass/Vol] 0.90 mg/dL Normal 0.64-1.27 [facility] Comment on above: Performed By: #### C MP, CBC, PAB #### [facility] [address] [place] [id number] [place] Creatinine Clr Calc Pharmacy 91.[address] [facility] Comment on above: Performed By: #### C MP, CBC, PAB #### [facility] [address] [place] [address] [place] Estimated GFR ( Marie > [address] [facility] Comment on above: Result Comment: GFR estimated reference range: According to KDOQI guidelines, <60 ml/min/1.73m2 is sufficient to diagnose a patient with chronic kidney disease. Performed By: #### C MP, CBC, PAB #### [address] Estimated GFR (Non- Am > [address] [facility] Comment on above: Performed By: #### C MP, CBC, PAB #### [address] Globulin (S) [Mass/Vol] 2.2 g/dL Normal [facility] Comment on above: Performed By: #### C MP, CBC, PAB #### [address] Glucose [Mass/Vol] 84 mg/dL Normal 70-100 [facility] Comment on above: Result Comment: [place] Glucose Reference Range is dependent on time and content of last meal. Glucose of more than 200 mg/dL in a nonstressed, ambulatory subject supports the diagnosis of Diabetes Mellitus. ADA recommended reference range Performed By: #### C MP, CBC, PAB #### [address] Potassium [Moles/Vol] 3.9 mmol/L Normal 3.5-5.1 [facility] Comment on above: Performed By: #### C MP, CBC, PAB #### [address] Protein [Mass/Vol] 3.9 g/dL Low 6.1-7.9 [facility] Comment on above: Performed By: #### C MP, CBC, PAB #### [address] Sodium [Moles/Vol] 138 mmol/L Normal 136-146 [facility] Comment on above: Performed By: #### C MP, CBC, PAB #### [address] [place] [address] [place] Urea nitrogen [Mass/Vol] 15 mg/dL Normal 07-16 [facility] Comment on above: Performed By: #### C MP, CBC, PAB #### [address] Globulin Calc (S) [Mass/Vol] Ordered By: Gordon Smith on 09-12-2022 Globulin (S) [Mass/Vol] 2.2 g/dL F [facility] Glucose Poct Glucometerson 1 11-12-2021 Commemt1 Glu2: Cleaned Meter Normal [facility] Comment on above: Result Comment: PERF ORMED BY: [place] [address] PATHOLOGIST [employer] MA[employer]TE[employer]CE MECH[employer]IC XU TAPIA M.D. Performed By: #### G LULS #### Point of Care testing , Glucose [Mass/Vol] 135 mg/dL Normal [facility] Comment on above: Result Comment: [facility] Glucose Reference Range is dependent on time and content of last meal. Glucose of more than 200 mg/dL in a nonstressed, ambulatory subject supports the diagnosis of Diabetes Mellitus. Performed By: #### G LULS #### Point of Care testing , Glucose [Mass/Vol] 96 mg/dL Normal [facility] Comment on above: Result Comment: [facility] Glucose Reference Range is dependent on time and content of last meal. Glucose of more than 200 mg/dL in a nonstressed, ambulatory subject supports the diagnosis of Diabetes Mellitus. PERFORMED BY: [place] [address] PATHOLOGIST [employer] MA[employer]TENA[employer]CE MECHANIC XU TAPIA M.D. Performed By: #### C MP, CBC, PAB #### [facility] [address] [place] [address] Prealbuminon 09-12-2022 Prealbumin [Mass/Vol] 9.3 mg/dL Low 18.0-38.0 [facility] Comment on above: Result Comment: PERF ORMED BY: [place] [address] PATHOLOGIST [employer]TE[employer] MECH[employer]IC XU TAPIA M.D. Performed By: #### C MP, CBC, PAB #### [facility] [address] Protein [Mass/volume] in Ser um or PlasmaOrdered By: Gordon Smith on 09-12-2022 Protein [Mass/Vol] 3.9 g/dL 6.1-7.9 [facility] Serum or plasma alanine lomax otransferase measurement without P-5'-P (enzymatic activiOrdered By: Gordon Smith on 09-12-2022 ALT No additional P-5'-P [Catalytic activity/Vol] 15 U/L 10-60 [facility] Serum or plasma albumin/glob ulin mass ratioOrdered By: Gordon Smith on 09-12-2022 Albumin/Globulin [Mass ratio] 0.8 {ratio} [facility] Serum or plasma alkaline alicia sphatase measurement (enzymatic activity/volume)Ordered By: Gordon Smith on 09-12-2022 ALP [Catalytic activity/Vol] 58 U/L 32-92 [facility] Serum or plasma aspartate am inotransferase measurement (enzymatic activity/volume)Ordered By: Gordon Smith on 09-12-2022 AST [Catalytic activity/Vol] 13 U/L 10-42 [facility] Serum or plasma prealbumin m easurement (mass/volume)Ordered By: Gordon Smith on 09-12-2022 Prealbumin [Mass/Vol] 9.3 mg/dL 18.0-38.0 [facility] Serum or plasma total biliru bin measurement (mass/volume)Ordered By: Gordon Smith on 09-12-2022 Bilirubin [Mass/Vol] 1.5 mg/dL 0.3-1.2 [facility] Comment on above: Samples from patient s who have taken Naproxen have shown spurious elevation in Total Bilirubin levels. A metabolite of Naproxen, O-desmethylnaproxen, has been shown to interfere with the Valeri-Brennan method for measuring Total Bilirubin. Glucose Poct Glucometerson 1 11-11-2021 Glucose [Mass/Vol] 90 mg/dL Normal [facility] Comment on above: Result Comment: [place] Glucose Reference Range is dependent on time and content of last meal. Glucose of more than 200 mg/dL in a nonstressed, ambulatory subject supports the diagnosis of Diabetes Mellitus. PERFORMED BY: [facility] [place] [address] PATHOLOGIST CONVEYOR MAINTENANCE MECHANIC XU TAPIA M.D. Performed By: #### G LUBRIAN #### Point of Care testing , Basic Metab w/rfx MGon 09-10 Anion gap [Moles/Vol] 5 mmol/L Low -17 [facility] Comment on above: Performed By: #### I OCAL, CDP, MG, LACTIC, ALICIA, BNP, BMP #### [address] [address] Fermentation Operator: Bret Vazquez MD Performed By: #### E RTKLARISSA HIGGINSEG #### [address] [address] Fermentation Operator: Bret Vazquez MD Calcium [Mass/Vol] 7.8 mg/dL Low 8.6-10.4 [facility] Comment on above: Performed By: #### I OCAL, CDP, MG, LACTIC, ALICIA, BNP, BMP #### [address] [address] Fermentation Operator: Bret Vazquez MD Performed By: #### E RTKLARISSA HIGGINSEG #### [facility] [address] [place] [address] Fermentation Operator: Bret Vazquez MD Chloride [Moles/Vol] 105 mmol/L Normal 98-107 [facility] Comment on above: Performed By: #### I OCAL, CDP, MG, LACTIC, ALICIA, BNP, BMP #### [facility] [address] [place] [address] Fermentation Operator: Bret Vazquez MD Performed By: #### E RTPFKLARISSAEG #### [facility] [address] [place] [address] Fermentation Operator: Bret Vazquez MD CO2 [Moles/Vol] 24 mmol/L Normal 20-31 [facility] Comment on above: Performed By: #### I OCAL, CDP, MG, LACTIC, ALICIA, BNP, BMP #### [address] [address] Fermentation Operator: Bret Vazquez MD Performed By: #### E RTPCHRISTY Golden #### [address] [address] Fermentation Operator: Bret Vazquez MD Creatinine [Mass/Vol] 0.77 mg/dL Normal 0.70-1.20 [facility] Comment on above: Performed By: #### I OCAL, CDP, MG, LACTIC, ALICIA, BNP, BMP #### [address] [address] Fermentation Operator: Bret Vazquez MD Performed By: #### E RTPCHRISTY Golden #### [address] [address] Fermentation Operator: Bret Vazquez MD GFR/1.73 sq M.predicted among non-blacks MDRD (S/P/Bld) [Vol rate/Area] mL/min/{1.73_m2} Normal >60 [facility] Comment on above: Result Comment: Effective Jul 26, 2022 These results are not intended for use in patients <18 years of age. eGFR results are calculated without a race factor using the 2020 CKD-EPI equation. Careful clinical correlation is recommended, particularly when comparing to results calculated using previous equations. The CKD-EPI equation is less accurate in patients with extremes of muscle mass, extra-renal metabolism of creatine, excessive creatine ingestion, or following therapy that affects renal tubular secretion. Performed By: #### I OCAL, CDP, MG, LACTIC, ALICIA, BNP, BMP #### [address] [address] Fermentation Operator: Bret Vazquez MD Performed By: #### E RTPFKLARISSAEG #### [address] [address] Fermentation Operator: Bret Vazquez MD Glucose [Mass/Vol] 85 mg/dL Normal 70-99 [facility] Comment on above: Performed By: #### I OCAL, CDP, MG, LACTIC, ALICIA, BNP, BMP #### [address] [address] Fermentation Operator: Bret Vazquez MD Performed By: #### E RTPFKLARISSAEG #### [address] [address] Fermentation Operator: Bret Vazquez MD Potassium [Moles/Vol] 4.4 mmol/L Normal 3.7-5.3 [facility] Comment on above: Performed By: #### I OCAL, CDP, MG, LACTIC, ALICIA, BNP, BMP #### [address] [address] Fermentation Operator: Bret Vazquez MD Performed By: #### E RTKLARISSA HIGGINSEG #### [address] [address] Fermentation Operator: Bret Vazquez MD Sodium [Moles/Vol] 134 mmol/L Low 135-144 [facility] Comment on above: Performed By: #### I OCAL, CDP, MG, LACTIC, ALICIA, BNP, BMP #### [address] [address] Fermentation Operator: Bret Vazquez MD Performed By: #### E RTBakariFKLARISSAEG #### [facility] [address] [place] [address] Fermentation Operator: Bret Vazquez MD Urea nitrogen [Mass/Vol] 17 mg/dL Normal 8-23 [facility] Comment on above: Performed By: #### I OCAL, CDP, MG, LACTIC, ALICIA, BNP, BMP #### [facility] [address] [place] [address] Fermentation Operator: Bret Vazquez MD Performed By: #### Isidro RTCHRISTY HIGGINS #### [facility] [address] [place] [address] Fermentation Operator: Bret Vazquez MD CBC with Diffon 09-10-2022 Abs. Basophil 0.06 k/uL Normal 0.00-0.20 [facility] Comment on above: Performed By: #### I OCAL, CDP, MG, LACTIC, ALICIA, BNP, BMP #### [facility] [address] [place] [address] Fermentation Operator: Bret Vazquez MD Performed By: #### CHRISTY MOJICA #### [facility] [address] [place] [address] Fermentation Operator: Bret Vazquez MD Abs.Imm.Granulocyte 0.04 k/uL Normal 0.00-0.30 [facility] Comment on above: Performed By: #### I OCAL, CDP, MG, LACTIC, ALICIA, BNP, BMP #### [facility] [address] [place] [address] Fermentation Operator: Bret Vazquez MD Performed By: #### CHRISTY MOJICA #### [facility] [address] [place] [address] Fermentation Operator: Bret Vazquez MD Abs.Neutrophil (Seg) 3.45 k/uL Normal 1.50-8.10 [facility] Comment on above: Performed By: #### I OCAL, CDP, MG, LACTIC, ALICIA, BNP, BMP #### [facility] [address] [place] [address] Fermentation Operator: Bret Vazquez MD Performed By: #### Isidro RTCHRISTY HIGGINS #### [place] [address] Fermentation Operator: Bret Vazquez MD Basophils/100 WBC (Bld) 1 % Normal 0-2 [facility] Comment on above: Performed By: #### I OCAL, CDP, MG, LACTIC, ALICIA, BNP, BMP #### [place] [address] Fermentation Operator: Bret Vazquez MD Performed By: #### E RTPFKLARISSAEG #### [place] [address] Fermentation Operator: Bret Vazquez MD Eosinophils (Bld) [#/Vol] 0.36 10*3/uL Normal 0.00-0.44 [facility] Comment on above: Performed By: #### I OCAL, CDP, MG, LACTIC, ALICIA, BNP, BMP #### [place] [address] Fermentation Operator: Bret Vazquez MD Performed By: #### Isidro RTCHRISTY HIGGINS #### [place] [address] Fermentation Operator: Bret Vazquez MD Eosinophils/100 WBC (Bld) 6 % High 1-4 [facility] Comment on above: Performed By: #### I OCAL, CDP, MG, LACTIC, ALICIA, BNP, BMP #### [place] [address] Fermentation Operator: Bret Vazquez MD Performed By: #### E RTCHRISTY HIGGINS #### [place] [address] Fermentation Operator: Bret Vazquez MD Erythrocyte distribution width (RBC) [Ratio] 15.8 % High 11.8-14.4 [facility] Comment on above: Performed By: #### I OCAL, CDP, MG, LACTIC, ALICIA, BNP, BMP #### [address] [address] Fermentation Operator: Bret Vazquez MD Performed By: #### E RTPFKLARISSAEG #### [address] [address] Fermentation Operator: Bret Vazquez MD Hematocrit (Bld) [Volume fraction] 25.2 % Low 40.7-50.3 [facility] Comment on above: Performed By: #### I OCAL, CDP, MG, LACTIC, ALICIA, BNP, BMP #### [address] [address] Fermentation Operator: Bret Vazquez MD Performed By: #### E RTKLARISSA HIGGINSEG #### [address] [address] Fermentation Operator: Bret Vazquez MD Hemoglobin (Bld) [Mass/Vol] 7.6 g/dL Low 13.0-17.0 [facility] Comment on above: Performed By: #### I OCAL, CDP, MG, LACTIC, ALICIA, BNP, BMP #### [address] [address] Fermentation Operator: Bret Vazquez MD Performed By: #### E RTKLARISSA HIGGINSEG #### [address] [address] Fermentation Operator: Bret Vazquez MD Immature granulocytes/100 WBC (Bld) 1 % High 0 [facility] Comment on above: Performed By: #### I OCAL, CDP, MG, LACTIC, ALICIA, BNP, BMP #### [facility] [address] [place] [address] Fermentation Operator: Bret Vazquez MD Performed By: #### E RTPFKLARISSAEG #### [facility] [address] [place] [address] Fermentation Operator: Bret Vazquez MD Lymphocytes (Bld) [#/Vol] 2.01 10*3/uL Normal 1.10-3.70 [facility] Comment on above: Performed By: #### I OCAL, CDP, MG, LACTIC, ALICIA, BNP, BMP #### [address] [address] Fermentation Operator: Bret Vazquez MD Performed By: #### E RTPF GHLTEG #### [address] [address] Fermentation Operator: Bret Vazquez MD Lymphocytes/100 WBC (Bld) 31 % Normal 24-43 [facility] Comment on above: Performed By: #### I OCAL, CDP, MG, LACTIC, ALICIA, BNP, BMP #### [address] [address] Fermentation Operator: Bret Vazquez MD Performed By: #### E RTPFRANDOLPHLTEG #### [address] [address] Fermentation Operator: Bret Vazquez MD MCH (RBC) [Entitic mass] 31.7 pg Normal 25.2-33.5 [facility] Comment on above: Performed By: #### I OCAL, CDP, MG, LACTIC, ALICIA, BNP, BMP #### [address] [address] Fermentation Operator: Bret Vazquez MD Performed By: #### E RTPF GHLTEG #### [address] [address] Fermentation Operator: Bret Vazquez MD MCHC (RBC) [Mass/Vol] 30.2 g/dL Normal 28.4-34.8 [facility] Comment on above: Performed By: #### I OCAL, CDP, MG, LACTIC, ALICIA, BNP, BMP #### [address] [address] Fermentation Operator: Bret Vazquez MD Performed By: #### E RTCHRISTY HIGGINS #### [address] [address] Fermentation Operator: Bret Vazquez MD MCV (RBC) [Entitic vol] 105.0 fL High 82.6-102.9 [facility] Comment on above: Performed By: #### I OCAL, CDP, MG, LACTIC, ALICIA, BNP, BMP #### [address] [address] Fermentation Operator: Bret Vazquez MD Performed By: #### E RTKLARISSA HIGGINSEG #### [place] [address] Fermentation Operator: Bret Vazquez MD Monocytes (Bld) [#/Vol] 0.62 10*3/uL Normal 0.10-1.20 [facility] Comment on above: Performed By: #### I OCAL, CDP, MG, LACTIC, ALICIA, BNP, BMP #### [place] [address] Fermentation Operator: Bret Vazquez MD Performed By: #### E RTKLARISSA HIGGINSEG #### [address] [address] Fermentation Operator: Bret Vazquez MD Monocytes/100 WBC (Bld) 10 % Normal 3-12 [facility] Comment on above: Performed By: #### I OCAL, CDP, MG, LACTIC, ALICIA, BNP, BMP #### [address] [address] Fermentation Operator: Bret Vazquez MD Performed By: #### E RTPFRANDOLPHLTEG #### [address] [address] Fermentation Operator: Bret Vazquez MD Neutrophil (Seg) 53 % Normal 36-65 [facility] Comment on above: Performed By: #### I OCAL, CDP, MG, LACTIC, ALICIA, BNP, BMP #### [address] [address] Fermentation Operator: Bret Vazquez MD Performed By: #### E RTCHRISTY HIGGINS #### [address] [address] Fermentation Operator: Bret Vazquez MD NRBC Automated 0.0 per 100 WBC Normal 0.0 [facility] Comment on above: Performed By: #### I OCAL, CDP, MG, LACTIC, ALICIA, BNP, BMP #### [address] [address] Fermentation Operator: Bret Vazquez MD Performed By: #### E RTCHRISTY HIGGINS #### [address] [address] Fermentation Operator: Bret Vazquez MD Platelet mean volume (Bld) [Entitic vol] 10.3 fL Normal 8.1-13.5 [facility] Comment on above: Performed By: #### I OCAL, CDP, MG, LACTIC, ALICIA, BNP, BMP #### [address] [address] Fermentation Operator: Bret Vazquez MD Performed By: #### E RTCHRISTY HIGGINS #### [address] [address] Fermentation Operator: Bret Vazquez MD Platelets (Bld) [#/Vol] 245 10*3/uL Normal 138-453 [facility] Comment on above: Performed By: #### I OCAL, CDP, MG, LACTIC, ALICIA, BNP, BMP #### [facility] [address] [place] [address] Fermentation Operator: Bret Vazquez MD Performed By: #### E RTPFKLARISSAEG #### [address] [address] Fermentation Operator: Bret Vazquez MD RBC (Bld) [#/Vol] 2.40 10*6/uL Low 4.21-5.77 [facility] Comment on above: Performed By: #### I OCAL, CDP, MG, LACTIC, ALICIA, BNP, BMP #### [address] [address] Fermentation Operator: Bret Vazquez MD Performed By: #### E RTKLARISSA HIGGINSEG #### [address] [address] Fermentation Operator: Bret Vazquez MD RBC morphology finding Nom (Bld) ANISOCYTOSIS PRESENT Normal [facility] Comment on above: Result Comment: MACR OCYTOSIS PRESENT Performed By: #### I OCAL, CDP, MG, LACTIC, ALICIA, BNP, BMP #### [address] [address] Fermentation Operator: Bret Vazquez MD Performed By: #### E RTKLARISSA HIGGINSEG #### [address] [address] Fermentation Operator: Bret Vazquez MD WBC (Bld) [#/Vol] 6.5 10*3/uL Normal 3.5-11.3 [facility] Comment on above: Performed By: #### I OCAL, CDP, MG, LACTIC, ALICIA, BNP, BMP #### [address] [address] Fermentation Operator: Bret Vazquez MD Performed By: #### E RTPFRANDOLPHLTEG #### [address] [address] Fermentation Operator: Bret Vazquez MD Basic Metab w/rfx MGon 11-17 -2022 Anion gap [Moles/Vol] 6 mmol/L Low 9-17 [facility] Comment on above: Performed By: #### B MPX, CDP #### [address] [address] Fermentation Operator: Bret Vazquez MD Performed By: #### E RTPF, CK, ECENZ, VD25 #### [facility] [address] [place] [address] Fermentation Operator: Bret Vazquez MD Calcium [Mass/Vol] 7.5 mg/dL Low 8.6-10.4 [facility] Comment on above: Performed By: #### B MPX, CDP #### [address] [address] Fermentation Operator: Bret Vazquez MD Performed By: #### E RTPF, CK, ECENZ, VD25 #### [facility] [address] [place] [address] Fermentation Operator: Bret Vazquez MD Chloride [Moles/Vol] 109 mmol/L High 98-107 [facility] Comment on above: Performed By: #### B MPX, CDP #### [address] [address] Fermentation Operator: Bret Vazquez MD Performed By: #### E RTPF, CK, ECENZ, VD25 #### [facility] [address] [place] [address] Fermentation Operator: Bret Vazquez MD CO2 [Moles/Vol] 25 mmol/L Normal 20-31 [facility] Comment on above: Performed By: #### B MPX, CDP #### [facility] [address] [place] [address] Fermentation Operator: Bret Vazquez MD Performed By: #### E RTPF, CK, ECENZ, VD25 #### [facility] [address] [place] [address] Fermentation Operator: Bret Vazquez MD Creatinine [Mass/Vol] 0.63 mg/dL Low 0.70-1.20 [facility] Comment on above: Performed By: #### B MPX, CDP #### [facility] [address] [place] [address] Fermentation Operator: Bret Vazquez MD Performed By: #### E RTPF, CK, ECENZ, VD25 #### [facility] [address] [place] [address] Fermentation Operator: Bret Vazquez MD GFR/1.73 sq M.predicted among non-blacks MDRD (S/P/Bld) [Vol rate/Area] mL/min/{1.73_m2} Normal >60 [facility] Comment on above: Result Comment: Effective Jul 26, 2022 These results are not intended for use in patients <18 years of age. eGFR results are calculated without a race factor using the 2020 CKD-EPI equation. Careful clinical correlation is recommended, particularly when comparing to results calculated using previous equations. The CKD-EPI equation is less accurate in patients with extremes of muscle mass, extra-renal metabolism of creatine, excessive creatine ingestion, or following therapy that affects renal tubular secretion. Performed By: #### B MPX, CDP #### [facility] [address] [place] [address] Fermentation Operator: Bret Vazquez MD Performed By: #### E RTPF, CK, ECENZ, VD25 #### [facility] [address] [place] [address] Fermentation Operator: Bret Vazquez MD Glucose [Mass/Vol] 88 mg/dL Normal 70-99 [facility] Comment on above: Performed By: #### B MPX, CDP #### [facility] [address] [place] [address] Fermentation Operator: Bret Vazquez MD Performed By: #### E RTPF, CK, ECENZ, VD25 #### [facility] [address] [place] [address] Fermentation Operator: Bret Vazquez MD Potassium [Moles/Vol] 4.3 mmol/L Normal 3.7-5.3 [facility] Comment on above: Performed By: #### B MPX, CDP #### [facility] [address] [place] [address] Fermentation Operator: Bret Vazquez MD Performed By: #### E RTPF, CK, ECENZ, VD25 #### [facility] [address] [place] [address] Fermentation Operator: Bret Vazquez MD Sodium [Moles/Vol] 140 mmol/L Normal 135-144 [facility] Comment on above: Performed By: #### B MPX, CDP #### [address] [address] Fermentation Operator: Bret Vazquez MD Performed By: #### E RTPF, CK, ECENZ, VD25 #### [facility] [address] [place] [address] Fermentation Operator: Bret Vazquez MD Urea nitrogen [Mass/Vol] 16 mg/dL Normal 8-23 [facility] Comment on above: Performed By: #### B MPX, CDP #### [facility] [address] [place] [address] Fermentation Operator: Bret Vazquez MD Performed By: #### E RTPF, CK, ECENZ, VD25 #### [facility] [address] [place] [address] Fermentation Operator: Bret Vazquez MD CBC with Diffon 09-09-2022 Abs. Basophil 0.09 k/uL Normal 0.00-0.20 [facility] Comment on above: Performed By: #### B MPX, CDP #### [address] [address] Fermentation Operator: Bret Vazquez MD Performed By: #### E RTPF, CK, ECENZ, VD25 #### [address] [address] Fermentation Operator: Bret Vazquez MD Abs.Imm.Granulocyte 0.03 k/uL Normal 0.00-0.30 [facility] Comment on above: Performed By: #### B MPX, CDP #### [address] [address] Fermentation Operator: Bret Vazquez MD Performed By: #### E RTPF, CK, ECENZ, VD25 #### [address] [address] Fermentation Operator: Bret Vazquez MD Abs.Neutrophil (Seg) 4.61 k/uL Normal 1.50-8.10 [facility] Comment on above: Performed By: #### B MPX, CDP #### [address] [address] Fermentation Operator: Bret Vazquez MD Performed By: #### E RTPF, CK, ECENZ, VD25 #### [address] [address] Fermentation Operator: Bret Vazquez MD Basophils/100 WBC (Bld) 1 % Normal 0-2 [facility] Comment on above: Performed By: #### B MPX, CDP #### [address] [address] Fermentation Operator: Bret Vazquez MD Performed By: #### E RTPF, CK, ECENZ, VD25 #### [address] [address] Fermentation Operator: Bret Vazquez MD Eosinophils (Bld) [#/Vol] 0.40 10*3/uL Normal 0.00-0.44 [facility] Comment on above: Performed By: #### B MPX, CDP #### [address] [address] Fermentation Operator: Bret Vazquez MD Performed By: #### E RTPF, CK, ECENZ, VD25 #### [place] [address] Fermentation Operator: Bret Vazquez MD Eosinophils/100 WBC (Bld) 5 % High 1-4 [facility] Comment on above: Performed By: #### B MPX, CDP #### [place] [address] Fermentation Operator: Bret Vazquez MD Performed By: #### E RTPF, CK, ECENZ, VD25 #### [place] [address] Fermentation Operator: Bret Vazquez MD Erythrocyte distribution width (RBC) [Ratio] 16.2 % High 11.8-14.4 [facility] Comment on above: Performed By: #### B MPX, CDP #### [place] [address] Fermentation Operator: Bret Vazquez MD Performed By: #### E RTPF, CK, ECENZ, VD25 #### [facility] [address] [place] [address] Fermentation Operator: Bret Vazquez MD Hematocrit (Bld) [Volume fraction] 22.3 % Low 40.7-50.3 [facility] Comment on above: Performed By: #### B MPX, CDP #### [facility] [address] [place] [address] Fermentation Operator: Bret Vazquez MD Performed By: #### E RTPF, CK, ECENZ, VD25 #### [facility] [address] [place] [address] Fermentation Operator: rBet Vazquez MD Hemoglobin (Bld) [Mass/Vol] 7.5 g/dL Low 13.0-17.0 [facility] Comment on above: Performed By: #### B MPX, CDP #### [address] [address] Fermentation Operator: Bret Vazquez MD Performed By: #### E RTPF, CK, ECENZ, VD25 #### [facility] [address] [place] [address] Fermentation Operator: Bret Vazquez MD Immature granulocytes/100 WBC (Bld) 0 % Normal 0 [facility] Comment on above: Performed By: #### B MPX, CDP #### [address] [address] Fermentation Operator: Bret Vazquez MD Performed By: #### E RTPF, CK, ECENZ, VD25 #### [address] [address] Fermentation Operator: Bret Vazquez MD Lymphocytes (Bld) [#/Vol] 1.88 10*3/uL Normal 1.10-3.70 [facility] Comment on above: Performed By: #### B MPX, CDP #### [address] [address] Fermentation Operator: Bret Vazquez MD Performed By: #### E RTPF, CK, ECENZ, VD25 #### [facility] [address] [place] [address] Fermentation Operator: Bret Vazquez MD Lymphocytes/100 WBC (Bld) 24 % Normal 24-43 [facility] Comment on above: Performed By: #### B MPX, CDP #### [facility] [address] [place] [address] Fermentation Operator: Bret Vazquez MD Performed By: #### E RTPF, CK, ECENZ, VD25 #### [address] [address] Fermentation Operator: Bret Vazquez MD MCH (RBC) [Entitic mass] 31.8 pg Normal 25.2-33.5 [facility] Comment on above: Performed By: #### B MPX, CDP #### [address] [address] Fermentation Operator: Bret Vazquez MD Performed By: #### E RTPF, CK, ECENZ, VD25 #### [address] [address] Fermentation Operator: Bret Vazquez MD MCHC (RBC) [Mass/Vol] 33.6 g/dL Normal 28.4-34.8 [facility] Comment on above: Performed By: #### B MPX, CDP #### [address] [address] Fermentation Operator: Bret Vazquez MD Performed By: #### E RTPF, CK, ECENZ, VD25 #### [address] [address] Fermentation Operator: Bret Vazquez MD MCV (RBC) [Entitic vol] 94.5 fL Normal 82.6-102.9 [facility] Comment on above: Performed By: #### B MPX, CDP #### [address] [address] Fermentation Operator: Bret Vazquez MD Performed By: #### E RTPF, CK, ECENZ, VD25 #### [address] [address] Fermentation Operator: Bret Vazquez MD Monocytes (Bld) [#/Vol] 0.84 10*3/uL Normal 0.10-1.20 [facility] Comment on above: Performed By: #### B MPX, CDP #### [address] [address] Fermentation Operator: Bret Vazquez MD Performed By: #### E RTPF, CK, ECENZ, VD25 #### [address] [address] Fermentation Operator: Bret Vazquez MD Monocytes/100 WBC (Bld) 11 % Normal 3-12 [facility] Comment on above: Performed By: #### B MPX, CDP #### [address] [address] Fermentation Operator: Bret Vazquez MD Performed By: #### E RTPF, CK, ECENZ, VD25 #### [address] [address] Fermentation Operator: Bret Vazquez MD Neutrophil (Seg) 59 % Normal 36-65 [facility] Comment on above: Performed By: #### B MPX, CDP #### [address] [address] Fermentation Operator: Bret Vazquez MD Performed By: #### E RTPF, CK, ECENZ, VD25 #### [address] [address] Fermentation Operator: Bret Vazquez MD NRBC Automated 0.0 per 100 WBC Normal 0.0 [facility] Comment on above: Performed By: #### B MPX, CDP #### [address] [address] Fermentation Operator: Bret Vazquez MD Performed By: #### E RTPF, CK, ECENZ, VD25 #### [address] [address] Fermentation Operator: Bret Vazquez MD Platelet mean volume (Bld) [Entitic vol] 10.5 fL Normal 8.1-13.5 [facility] Comment on above: Performed By: #### B MPX, CDP #### [address] [address] Fermentation Operator: Bret Vazquez MD Performed By: #### E RTPF, CK, ECENZ, VD25 #### [facility] [address] [place] [address] Fermentation Operator: Bret Vazquez MD Platelets (Bld) [#/Vol] 185 10*3/uL Normal 138-453 [facility] Comment on above: Performed By: #### B MPX, CDP #### [address] [address] Fermentation Operator: Bret Vazquez MD Performed By: #### E RTPF, CK, ECENZ, VD25 #### [address] [address] Fermentation Operator: Bret Vazquez MD RBC (Bld) [#/Vol] 2.36 10*6/uL Low 4.21-5.77 [facility] Comment on above: Performed By: #### B MPX, CDP #### [address] [address] Fermentation Operator: Bret Vazquez MD Performed By: #### E RTPF, CK, ECENZ, VD25 #### [facility] [address] [place] [address] Fermentation Operator: Bret Vazquez MD RBC morphology finding Nom (Bld) ANISOCYTOSIS PRESENT Normal [facility] Comment on above: Performed By: #### B MPX, CDP #### [facility] [address] [place] [address] Fermentation Operator: Bret Vazquez MD Performed By: #### E RTPF, CK, ECENZ, VD25 #### [address] [address] Fermentation Operator: Bret Vazquez MD WBC (Bld) [#/Vol] 7.9 10*3/uL Normal 3.5-11.3 [facility] Comment on above: Performed By: #### B MPX, CDP #### [address] [address] Fermentation Operator: Bret Vazquez MD Performed By: #### E RTPF, CK, ECENZ, VD25 #### [address] [address] Fermentation Operator: Bret Vazquez MD Basic Metab w/rfx MGon 09-08 Anion gap [Moles/Vol] 4 mmol/L Low 9-17 [facility] Comment on above: Performed By: #### I OCAL, CDP, MG, LACTIC, ALICIA, BNP, BMP #### [address] [address] Fermentation Operator: Bret Vazquez MD Performed By: #### E RTPF, CK, ECENZ, VD25 #### [address] [address] Fermentation Operator: Bret Vazquez MD Calcium [Mass/Vol] 7.5 mg/dL Low 8.6-10.4 [facility] Comment on above: Performed By: #### I OCAL, CDP, MG, LACTIC, ALICIA, BNP, BMP #### [address] [address] Fermentation Operator: Bret Vazquez MD Performed By: #### E RTPF, CK, ECENZ, VD25 #### [address] [address] Fermentation Operator: Bret Vazquez MD Chloride [Moles/Vol] 105 mmol/L Normal 98-107 [facility] Comment on above: Performed By: #### I OCAL, CDP, MG, LACTIC, ALICIA, BNP, BMP #### [address] [address] Fermentation Operator: Bret Vazquez MD Performed By: #### E RTPF, CK, ECENZ, VD25 #### [address] [address] Fermentation Operator: Bret Vazquez MD CO2 [Moles/Vol] 26 mmol/L Normal 20-31 [facility] Comment on above: Performed By: #### I OCAL, CDP, MG, LACTIC, ALICIA, BNP, BMP #### [address] [address] Fermentation Operator: Bret Vazquez MD Performed By: #### E RTPF, CK, ECENZ, VD25 #### [address] [address] Fermentation Operator: Bret Vazquez MD Creatinine [Mass/Vol] 0.80 mg/dL Normal 0.70-1.20 [facility] Comment on above: Performed By: #### I OCAL, CDP, MG, LACTIC, ALICIA, BNP, BMP #### [address] [address] Fermentation Operator: Bret Vazquez MD Performed By: #### E RTPF, CK, ECENZ, VD25 #### [address] [address] Fermentation Operator: Bret Vazquez MD GFR/1.73 sq M.predicted among non-blacks MDRD (S/P/Bld) [Vol rate/Area] mL/min/{1.73_m2} Normal >60 [facility] Comment on above: Result Comment: Effective Jul 26, 2022 These results are not intended for use in patients <18 years of age. eGFR results are calculated without a race factor using the 2020 CKD-EPI equation. Careful clinical correlation is recommended, particularly when comparing to results calculated using previous equations. The CKD-EPI equation is less accurate in patients with extremes of muscle mass, extra-renal metabolism of creatine, excessive creatine ingestion, or following therapy that affects renal tubular secretion. Performed By: #### I OCAL, CDP, MG, LACTIC, ALICIA, BNP, BMP #### [address] [address] Fermentation Operator: Bret Vazquez MD Performed By: #### E RTPF, CK, ECENZ, VD25 #### [address] [address] Fermentation Operator: Bret Vazquez MD Glucose [Mass/Vol] 93 mg/dL Normal 70-99 [facility] Comment on above: Performed By: #### I OCAL, CDP, MG, LACTIC, ALICIA, BNP, BMP #### [address] [address] Fermentation Operator: Bret Vazquez MD Performed By: #### E RTPF, CK, ECENZ, VD25 #### [address] [address] Fermentation Operator: Bret Vazquez MD Potassium [Moles/Vol] 4.5 mmol/L Normal 3.7-5.3 [facility] Comment on above: Performed By: #### I OCAL, CDP, MG, LACTIC, ALICIA, BNP, BMP #### [address] [address] Fermentation Operator: Bret Vazquez MD Performed By: #### E RTPF, CK, ECENZ, VD25 #### [address] [address] Fermentation Operator: Bret Vazquez MD Sodium [Moles/Vol] 135 mmol/L Normal 135-144 [facility] Comment on above: Performed By: #### I OCAL, CDP, MG, LACTIC, ALICIA, BNP, BMP #### [facility] [address] [place] [address] Fermentation Operator: Bret Vazquez MD Performed By: #### E RTPF, CK, ECENZ, VD25 #### [facility] [address] [place] [address] Fermentation Operator: Bret Vazquez MD Urea nitrogen [Mass/Vol] 16 mg/dL Normal 8-23 [facility] Comment on above: Performed By: #### I OCAL, CDP, MG, LACTIC, ALICIA, BNP, BMP #### [facility] [address] [place] [address] Fermentation Operator: Bret Vazquez MD Performed By: #### E RTPF, CK, ECENZ, VD25 #### [facility] [address] [place] [address] Fermentation Operator: Bret Vazquez MD CBC with Diffon 09-08-2022 Abs. Basophil 0.04 k/uL Normal 0.00-0.20 [facility] Comment on above: Performed By: #### I OCAL, CDP, MG, LACTIC, ALICIA, BNP, BMP #### [facility] [address] [place] [address] Fermentation Operator: Bret Vazquez MD Performed By: #### E RTPF, CK, ECENZ, VD25 #### [facility] [address] [place] [address] Fermentation Operator: Bret Vazquez MD Abs.Imm.Granulocyte 0.03 k/uL Normal 0.00-0.30 [facility] Comment on above: Performed By: #### I OCAL, CDP, MG, LACTIC, ALICIA, BNP, BMP #### [facility] [address] [place] [address] Fermentation Operator: Bret Vazquez MD Performed By: #### E RTPF, CK, ECENZ, VD25 #### [address] [address] Fermentation Operator: Bret Vazquez MD Abs.Neutrophil (Seg) 4.96 k/uL Normal 1.50-8.10 [facility] Comment on above: Performed By: #### I OCAL, CDP, MG, LACTIC, ALICIA, BNP, BMP #### [place] [address] Fermentation Operator: Bret Vazquez MD Performed By: #### E RTPF, CK, ECENZ, VD25 #### [place] [address] Fermentation Operator: Bret Vazquez MD Basophils/100 WBC (Bld) 1 % Normal 0-2 [facility] Comment on above: Performed By: #### I OCAL, CDP, MG, LACTIC, ALICIA, BNP, BMP #### [place] [address] Fermentation Operator: Bret Vazquez MD Performed By: #### E RTPF, CK, ECENZ, VD25 #### [place] [address] Fermentation Operator: Bret Vazquez MD Eosinophils (Bld) [#/Vol] 0.21 10*3/uL Normal 0.00-0.44 [facility] Comment on above: Performed By: #### I OCAL, CDP, MG, LACTIC, ALICIA, BNP, BMP #### [place] [address] Fermentation Operator: Bret Vazquez MD Performed By: #### E RTPF, CK, ECENZ, VD25 #### [facility] [address] [place] [address] Fermentation Operator: Bret Vazquez MD Eosinophils/100 WBC (Bld) 3 % Normal 1-4 [facility] Comment on above: Performed By: #### I OCAL, CDP, MG, LACTIC, ALICIA, BNP, BMP #### [facility] [address] [place] [address] Fermentation Operator: Bret Vazquez MD Performed By: #### E RTPF, CK, ECENZ, VD25 #### [facility] [address] [place] [address] Fermentation Operator: Bret Vazquez MD Erythrocyte distribution width (RBC) [Ratio] 16.4 % High 11.8-14.4 [facility] Comment on above: Performed By: #### I OCAL, CDP, MG, LACTIC, ALICIA, BNP, BMP #### [facility] [address] [place] [address] Fermentation Operator: Bret Vazquez MD Performed By: #### E RTPF, CK, ECENZ, VD25 #### [facility] [address] [place] [address] Fermentation Operator: Bret Vazquez MD Hematocrit (Bld) [Volume fraction] 22.9 % Low 40.7-50.3 [facility] Comment on above: Performed By: #### I OCAL, CDP, MG, LACTIC, ALICIA, BNP, BMP #### [facility] [address] [place] [address] Fermentation Operator: Bret Vazquez MD Performed By: #### E RTPF, CK, ECENZ, VD25 #### [facility] [address] [place] [address] Fermentation Operator: Bret Vazquez MD Hemoglobin (Bld) [Mass/Vol] 7.5 g/dL Low 13.0-17.0 [facility] Comment on above: Performed By: #### I OCAL, CDP, MG, LACTIC, ALICIA, BNP, BMP #### [facility] [address] [place] [address] Fermentation Operator: Bret Vazquez MD Performed By: #### E RTPF, CK, ECENZ, VD25 #### [address] [address] Fermentation Operator: Bret Vazquez MD Immature granulocytes/100 WBC (Bld) 0 % Normal 0 [facility] Comment on above: Performed By: #### I OCAL, CDP, MG, LACTIC, ALICIA, BNP, BMP #### [address] [address] Fermentation Operator: Bret Vazquez MD Performed By: #### E RTPF, CK, ECENZ, VD25 #### [address] [address] Fermentation Operator: Bret Vazquez MD Lymphocytes (Bld) [#/Vol] 1.39 10*3/uL Normal 1.10-3.70 [facility] Comment on above: Performed By: #### I OCAL, CDP, MG, LACTIC, ALICIA, BNP, BMP #### [address] [address] Fermentation Operator: Bret Vazquez MD Performed By: #### E RTPF, CK, ECENZ, VD25 #### [address] [address] Fermentation Operator: Bret Vazquez MD Lymphocytes/100 WBC (Bld) 19 % Low 24-43 [facility] Comment on above: Performed By: #### I OCAL, CDP, MG, LACTIC, ALICIA, BNP, BMP #### [facility] [address] [place] [address] Fermentation Operator: Bret Vazquez MD Performed By: #### E RTPF, CK, ECENZ, VD25 #### [facility] [address] [place] [address] Fermentation Operator: Bret Vazquez MD MCH (RBC) [Entitic mass] 31.4 pg Normal 25.2-33.5 [facility] Comment on above: Performed By: #### I OCAL, CDP, MG, LACTIC, ALICIA, BNP, BMP #### [address] [address] Fermentation Operator: Bret Vazquez MD Performed By: #### E RTPF, CK, ECENZ, VD25 #### [address] [address] Fermentation Operator: Bret Vazquez MD MCHC (RBC) [Mass/Vol] 32.8 g/dL Normal 28.4-34.8 [facility] Comment on above: Performed By: #### I OCAL, CDP, MG, LACTIC, ALICIA, BNP, BMP #### [address] [address] Fermentation Operator: Bret Vazquez MD Performed By: #### E RTPF, CK, ECENZ, VD25 #### [address] [address] Fermentation Operator: Bret Vazquez MD MCV (RBC) [Entitic vol] 95.8 fL Normal 82.6-102.9 [facility] Comment on above: Performed By: #### I OCAL, CDP, MG, LACTIC, ALICIA, BNP, BMP #### [address] [address] Fermentation Operator: Bret Vazquez MD Performed By: #### E RTPF, CK, ECENZ, VD25 #### [address] [address] Fermentation Operator: Bret Vazquez MD Monocytes (Bld) [#/Vol] 0.88 10*3/uL Normal 0.10-1.20 [facility] Comment on above: Performed By: #### I OCAL, CDP, MG, LACTIC, ALICIA, BNP, BMP #### [address] [address] Fermentation Operator: Bret Vazquez MD Performed By: #### E RTPF, CK, ECENZ, VD25 #### [address] [address] Fermentation Operator: Bret Vazquez MD Monocytes/100 WBC (Bld) 12 % Normal 3-12 [facility] Comment on above: Performed By: #### I OCAL, CDP, MG, LACTIC, ALICIA, BNP, BMP #### [address] [address] Fermentation Operator: Bret Vazquez MD Performed By: #### E RTPF, CK, ECENZ, VD25 #### [address] [address] Fermentation Operator: Bret Vazquez MD Neutrophil (Seg) 66 % High 36-65 [facility] Comment on above: Performed By: #### I OCAL, CDP, MG, LACTIC, ALICIA, BNP, BMP #### [address] [address] Fermentation Operator: Bret Vazquez MD Performed By: #### E RTPF, CK, ECENZ, VD25 #### [address] [address] Fermentation Operator: Bret Vazquez MD NRBC Automated 0.0 per 100 WBC Normal 0.0 [facility] Comment on above: Performed By: #### I OCAL, CDP, MG, LACTIC, ALICIA, BNP, BMP #### [address] [address] Fermentation Operator: Bret Vazquez MD Performed By: #### E RTPF, CK, ECENZ, VD25 #### [address] [address] Fermentation Operator: Bret Vazquez MD Platelet mean volume (Bld) [Entitic vol] 10.8 fL Normal 8.1-13.5 [facility] Comment on above: Performed By: #### I OCAL, CDP, MG, LACTIC, ALICIA, BNP, BMP #### [address] [address] Fermentation Operator: Bret Vazquez MD Performed By: #### E RTPF, CK, ECENZ, VD25 #### [address] [address] Fermentation Operator: Bret Vazquez MD Platelets (Bld) [#/Vol] 162 10*3/uL Normal 138-453 [facility] Comment on above: Performed By: #### I OCAL, CDP, MG, LACTIC, ALICIA, BNP, BMP #### [address] [address] Fermentation Operator: Bret Vazquez MD Performed By: #### E RTPF, CK, ECENZ, VD25 #### [address] [address] Fermentation Operator: Bret Vazquez MD RBC (Bld) [#/Vol] 2.39 10*6/uL Low 4.21-5.77 [facility] Comment on above: Performed By: #### I OCAL, CDP, MG, LACTIC, ALICIA, BNP, BMP #### [facility] [address] [place] [address] Fermentation Operator: Bret Vazquez MD Performed By: #### E RTPF, CK, ECENZ, VD25 #### [facility] [address] [place] [address] Fermentation Operator: Bret Vazquez MD RBC morphology finding Nom (Bld) ANISOCYTOSIS PRESENT Normal [facility] Comment on above: Performed By: #### I OCAL, CDP, MG, LACTIC, ALICIA, BNP, BMP #### [facility] [address] [place] [address] Fermentation Operator: Bret Vazquez MD Performed By: #### E RTPF, CK, ECENZ, VD25 #### [address] [address] Fermentation Operator: Bret Vazquez MD WBC (Bld) [#/Vol] 7.5 10*3/uL Normal 3.5-11.3 [facility] Comment on above: Performed By: #### I OCAL, CDP, MG, LACTIC, ALICIA, BNP, BMP #### [address] [address] Fermentation Operator: Bret Vazquez MD Performed By: #### E RTPF, CK, ECENZ, VD25 #### [address] [address] Fermentation Operator: Bret Vazquez MD Magnesiumon 09-08-2022 Magnesium [Mass/Vol] 1.9 mg/dL Normal 1.6-2.6 [facility] Comment on above: Performed By: #### I OCAL, CDP, MG, LACTIC, ALICIA, BNP, BMP #### [address] [address] Fermentation Operator: Bret Vazquez MD Performed By: #### E RTPF, CK, ECENZ, VD25 #### [address] [address] Fermentation Operator: Bret Vazquez MD Basic Metab w/rfx MGon 09-07 Anion gap [Moles/Vol] 7 mmol/L Low 9-17 [facility] Comment on above: Performed By: #### I OCAL, CDP, MG, LACTIC, ALICIA, BNP, BMP #### [address] [address] Fermentation Operator: Bret Vazquez MD Performed By: #### E RTPF, CK, ECENZ, VD25 #### [address] [place] [address] Fermentation Operator: Bret Vazquez MD Calcium [Mass/Vol] 7.7 mg/dL Low 8.6-10.4 [facility] Comment on above: Performed By: #### I OCAL, CDP, MG, LACTIC, ALICIA, BNP, BMP #### [address] [address] Fermentation Operator: Bret Vazquez MD Performed By: #### E RTPF, CK, ECENZ, VD25 #### [address] [address] Fermentation Operator: Bret Vazquez MD Chloride [Moles/Vol] 103 mmol/L Normal 98-107 [facility] Comment on above: Performed By: #### I OCAL, CDP, MG, LACTIC, ALICIA, BNP, BMP #### [address] [address] Fermentation Operator: Bret Vazquez MD Performed By: #### E RTPF, CK, ECENZ, VD25 #### [address] [address] Fermentation Operator: Bret Vazquez MD CO2 [Moles/Vol] 22 mmol/L Normal 20-31 [facility] Comment on above: Performed By: #### I OCAL, CDP, MG, LACTIC, ALICIA, BNP, BMP #### [address] [address] Fermentation Operator: Bret Vazquez MD Performed By: #### E RTPF, CK, ECENZ, VD25 #### [facility] [address] [place] [address] Fermentation Operator: Bret Vazquez MD Creatinine [Mass/Vol] 0.62 mg/dL Low 0.70-1.20 [facility] Comment on above: Performed By: #### I OCAL, CDP, MG, LACTIC, ALICIA, BNP, BMP #### [address] [address] Fermentation Operator: Bret Vazquez MD Performed By: #### E RTPF, CK, ECENZ, VD25 #### [address] [address] Fermentation Operator: Bret Vazquez MD GFR/1.73 sq M.predicted among non-blacks MDRD (S/P/Bld) [Vol rate/Area] mL/min/{1.73_m2} Normal >60 [facility] Comment on above: Result Comment: Effective Jul 26, 2022 These results are not intended for use in patients <18 years of age. eGFR results are calculated without a race factor using the 2020 CKD-EPI equation. Careful clinical correlation is recommended, particularly when comparing to results calculated using previous equations. The CKD-EPI equation is less accurate in patients with extremes of muscle mass, extra-renal metabolism of creatine, excessive creatine ingestion, or following therapy that affects renal tubular secretion. Performed By: #### I OCAL, CDP, MG, LACTIC, ALICIA, BNP, BMP #### [address] [address] Fermentation Operator: Bret Vazquez MD Performed By: #### E RTPF, CK, ECENZ, VD25 #### [facility] [address] [place] [address] Fermentation Operator: Bret Vazquez MD Glucose [Mass/Vol] 149 mg/dL High 70-99 [facility] Comment on above: Performed By: #### I OCAL, CDP, MG, LACTIC, ALICIA, BNP, BMP #### [facility] [address] [place] [address] Fermentation Operator: Bret Vazquez MD Performed By: #### E RTPF, CK, ECENZ, VD25 #### [facility] [address] [place] [address] Fermentation Operator: Bret Vazquez MD Potassium [Moles/Vol] 4.9 mmol/L Normal 3.7-5.3 [facility] Comment on above: Performed By: #### I OCAL, CDP, MG, LACTIC, ALICIA, BNP, BMP #### [facility] [address] [place] [address] Fermentation Operator: Bret Vazquez MD Performed By: #### E RTPF, CK, ECENZ, VD25 #### [facility] [address] [place] [address] Fermentation Operator: Bret Vazquez MD Sodium [Moles/Vol] 132 mmol/L Low 135-144 [facility] Comment on above: Performed By: #### I OCAL, CDP, MG, LACTIC, ALICIA, BNP, BMP #### [facility] [address] [place] [address] Fermentation Operator: Bret Vazquez MD Performed By: #### E RTPF, CK, ECENZ, VD25 #### [facility] [address] [place] [address] Fermentation Operator: Bret Vazquez MD Urea nitrogen [Mass/Vol] 13 mg/dL Normal 8-23 [facility] Comment on above: Performed By: #### I OCAL, CDP, MG, LACTIC, ALICIA, BNP, BMP #### [facility] [address] [place] [address] Fermentation Operator: Bret Vazquez MD Performed By: #### E RTPF, CK, ECENZ, VD25 #### [facility] [address] [place] [address] Fermentation Operator: Bret Vazquez MD CBC with Diffon 09-07-2022 Abs. Basophil <0.03 Normal 0.00-0.20 [facility] Comment on above: Performed By: #### I OCAL, CDP, MG, LACTIC, ALICIA, BNP, BMP #### [facility] [address] [place] [address] Fermentation Operator: Bret Vazquez MD Performed By: #### E RTPF, CK, ECENZ, VD25 #### [address] [address] Fermentation Operator: Bret Vazquez MD Abs. Eosinophil <0.03 Normal 0.00-0.44 [facility] Comment on above: Performed By: #### I OCAL, CDP, MG, LACTIC, ALICIA, BNP, BMP #### [address] [address] Fermentation Operator: Bret Vazquez MD Performed By: #### E RTPF, CK, ECENZ, VD25 #### [place] [address] Fermentation Operator: Bret Vazquez MD Abs.Imm.Granulocyte 0.05 k/uL Normal 0.00-0.30 [facility] Comment on above: Performed By: #### I OCAL, CDP, MG, LACTIC, ALICIA, BNP, BMP #### [place] [address] Fermentation Operator: Bret Vazquez MD Performed By: #### E RTPF, CK, ECENZ, VD25 #### [place] [address] Fermentation Operator: Bret Vazquez MD Abs.Neutrophil (Seg) 7.23 k/uL Normal 1.50-8.10 [facility] Comment on above: Performed By: #### I OCAL, CDP, MG, LACTIC, ALICIA, BNP, BMP #### [place] [address] Fermentation Operator: Bret Vazquez MD Performed By: #### E RTPF, CK, ECENZ, VD25 #### [address] [address] Fermentation Operator: Bret Vazquez MD Basophils/100 WBC (Bld) 0 % Normal 0-2 [facility] Comment on above: Performed By: #### I OCAL, CDP, MG, LACTIC, ALICIA, BNP, BMP #### [facility] [address] [place] [address] Fermentation Operator: Bret Vazquez MD Performed By: #### E RTPF, CK, ECENZ, VD25 #### [facility] [address] [place] [address] Fermentation Operator: Bret Vazquez MD Eosinophils/100 WBC (Bld) 0 % Low 1-4 [facility] Comment on above: Performed By: #### I OCAL, CDP, MG, LACTIC, ALICIA, BNP, BMP #### [facility] [address] [place] [address] Fermentation Operator: Bret Vazquez MD Performed By: #### E RTPF, CK, ECENZ, VD25 #### [facility] [address] [place] [address] Fermentation Operator: Bret Vazquez MD Erythrocyte distribution width (RBC) [Ratio] 16.4 % High 11.8-14.4 [facility] Comment on above: Performed By: #### I OCAL, CDP, MG, LACTIC, ALICIA, BNP, BMP #### [facility] [address] [place] [address] Fermentation Operator: Bret Vazquez MD Performed By: #### E RTPF, CK, ECENZ, VD25 #### [facility] [facility] [address] [place] [address] Fermentation Operator: Bret Vazquez MD Hematocrit (Bld) [Volume fraction] 25.6 % Low 40.7-50.3 [facility] Comment on above: Performed By: #### I OCAL, CDP, MG, LACTIC, ALICIA, BNP, BMP #### [facility] [address] [place] [address] Fermentation Operator: Bret Vazquez MD Performed By: #### E RTPF, CK, ECENZ, VD25 #### [address] [address] Fermentation Operator: Bret Vazquez MD Hemoglobin (Bld) [Mass/Vol] 7.6 g/dL Low 13.0-17.0 [facility] Comment on above: Performed By: #### I OCAL, CDP, MG, LACTIC, ALICIA, BNP, BMP #### [address] [address] Fermentation Operator: Bret Vazquez MD Performed By: #### E RTPF, CK, ECENZ, VD25 #### [address] [address] Fermentation Operator: Bret Vazquez MD Immature granulocytes/100 WBC (Bld) 1 % High 0 [facility] Comment on above: Performed By: #### I OCAL, CDP, MG, LACTIC, ALICIA, BNP, BMP #### [address] [address] Fermentation Operator: Bret Vazquez MD Performed By: #### E RTPF, CK, ECENZ, VD25 #### [address] [address] Fermentation Operator: Bret Vazquez MD Lymphocytes (Bld) [#/Vol] 0.89 10*3/uL Low 1.10-3.70 [facility] Comment on above: Performed By: #### I OCAL, CDP, MG, LACTIC, ALICIA, BNP, BMP #### [address] [address] Fermentation Operator: Bret Vazquez MD Performed By: #### E RTPF, CK, ECENZ, VD25 #### [facility] [address] [place] [address] Fermentation Operator: Bret Vazquez MD Lymphocytes/100 WBC (Bld) 10 % Low 24-43 [facility] Comment on above: Performed By: #### I OCAL, CDP, MG, LACTIC, ALICIA, BNP, BMP #### [address] [address] Fermentation Operator: Bret Vazquez MD Performed By: #### E RTPF, CK, ECENZ, VD25 #### [address] [address] Fermentation Operator: Bret Vazquez MD MCH (RBC) [Entitic mass] 31.7 pg Normal 25.2-33.5 [facility] Comment on above: Performed By: #### I OCAL, CDP, MG, LACTIC, ALICIA, BNP, BMP #### [address] [address] Fermentation Operator: Bret Vazquez MD Performed By: #### E RTPF, CK, ECENZ, VD25 #### [address] [address] Fermentation Operator: Bret Vazquez MD MCHC (RBC) [Mass/Vol] 29.7 g/dL Normal 28.4-34.8 [facility] Comment on above: Performed By: #### I OCAL, CDP, MG, LACTIC, ALICIA, BNP, BMP #### [address] [address] Fermentation Operator: Bret Vazquez MD Performed By: #### E RTPF, CK, ECENZ, VD25 #### [facility] [address] [place] [address] Fermentation Operator: Bret Vazquez MD MCV (RBC) [Entitic vol] 106.7 fL High 82.6-102.9 [facility] Comment on above: Performed By: #### I OCAL, CDP, MG, LACTIC, ALICIA, BNP, BMP #### [address] [address] Fermentation Operator: Bret Vazquez MD Performed By: #### E RTPF, CK, ECENZ, VD25 #### [address] [address] Fermentation Operator: Bret Vazquez MD Monocytes (Bld) [#/Vol] 1.00 10*3/uL Normal 0.10-1.20 [facility] Comment on above: Performed By: #### I OCAL, CDP, MG, LACTIC, ALICIA, BNP, BMP #### [address] [address] Fermentation Operator: Bret Vazquez MD Performed By: #### E RTPF, CK, ECENZ, VD25 #### [address] [address] Fermentation Operator: Bret Vazquez MD Monocytes/100 WBC (Bld) 11 % Normal 3-12 [facility] Comment on above: Performed By: #### I OCAL, CDP, MG, LACTIC, ALICIA, BNP, BMP #### [address] [address] Fermentation Operator: Bret Vazquez MD Performed By: #### E RTPF, CK, ECENZ, VD25 #### [address] [address] Fermentation Operator: Bret Vazquez MD Neutrophil (Seg) 79 % High 36-65 [facility] Comment on above: Performed By: #### I OCAL, CDP, MG, LACTIC, ALICIA, BNP, BMP #### [address] [address] Fermentation Operator: Bret Vazquez MD Performed By: #### E RTPF, CK, ECENZ, VD25 #### [address] [address] Fermentation Operator: Bret Vazquez MD NRBC Automated 0.0 per 100 WBC Normal 0.0 [facility] Comment on above: Performed By: #### I OCAL, CDP, MG, LACTIC, ALICIA, BNP, BMP #### [address] [address] Fermentation Operator: Bret Vazquez MD Performed By: #### E RTPF, CK, ECENZ, VD25 #### [address] [address] Fermentation Operator: Bret Vazquez MD Platelet mean volume (Bld) [Entitic vol] 10.7 fL Normal 8.1-13.5 [facility] Comment on above: Performed By: #### I OCAL, CDP, MG, LACTIC, ALICIA, BNP, BMP #### [address] [address] Fermentation Operator: Bret Vazquez MD Performed By: #### E RTPF, CK, ECENZ, VD25 #### [address] [address] Fermentation Operator: Bret Vazquez MD Platelets (Bld) [#/Vol] 206 10*3/uL Normal 138-453 [facility] Comment on above: Performed By: #### I OCAL, CDP, MG, LACTIC, ALICIA, BNP, BMP #### [address] [address] Fermentation Operator: Bret Vazquez MD Performed By: #### E RTPF, CK, ECENZ, VD25 #### [address] [address] Fermentation Operator: Bret Vazquez MD RBC (Bld) [#/Vol] 2.40 10*6/uL Low 4.21-5.77 [facility] Comment on above: Performed By: #### I OCAL, CDP, MG, LACTIC, ALICIA, BNP, BMP #### [facility] [address] [place] [address] Fermentation Operator: Bret Vazquez MD Performed By: #### E RTPF, CK, ECENZ, VD25 #### [facility] [address] [place] [address] Fermentation Operator: Bret Vazquez MD RBC morphology finding Nom (Bld) ANISOCYTOSIS PRESENT Normal [facility] Comment on above: Result Comment: MACR OCYTOSIS PRESENT Performed By: #### I OCAL, CDP, MG, LACTIC, ALICIA, BNP, BMP #### [facility] [address] [place] [address] Fermentation Operator: Bret Vazquez MD Performed By: #### E RTPF, CK, ECENZ, VD25 #### [facility] [address] [place] [address] Fermentation Operator: Bret Vazquez MD WBC (Bld) [#/Vol] 9.2 10*3/uL Normal 3.5-11.3 [facility] Comment on above: Performed By: #### I OCAL, CDP, MG, LACTIC, ALICIA, BNP, BMP #### [facility] [address] [place] [address] Fermentation Operator: Bret Vazquez MD Performed By: #### E RTPF, CK, ECENZ, VD25 #### [facility] [address] [place] [address] Fermentation Operator: Bret Vazquez MD Hgb/Hcton 09-07-2022 Hematocrit (Bld) [Volume fraction] 22.7 % Low 40.7-50.3 [facility] Comment on above: Performed By: #### D AU, UAX, UMICAO #### [facility] [address] [place] [address] Fermentation Operator: Bret Vazquez MD Performed By: #### H H #### [address] [address] Fermentation Operator: Bret Vazquez MD Hemoglobin (Bld) [Mass/Vol] 6.9 g/dL Critically low 13.0-17.0 [facility] Comment on above: Performed By: #### D AU, UAX, UMICAO #### [address] [address] Fermentation Operator: Bret Vazquez MD Performed By: #### H H #### [address] [address] Fermentation Operator: Bret Vazquez MD Hematocrit (Bld) [Volume fraction] 19.2 % Low 40.7-50.3 [facility] Comment on above: Performed By: #### B MPX, CDP #### [address] [address] Fermentation Operator: Bret Vazquez MD Performed By: #### E RTPF, CK, ECENZ, VD25 #### [address] [address] Fermentation Operator: Bret Vazquez MD Hemoglobin (Bld) [Mass/Vol] 6.2 g/dL Critically low 13.0-17.0 [facility] Comment on above: Performed By: #### B MPX, CDP #### [address] [address] Fermentation Operator: Bret Vazquez MD Performed By: #### E RTPF, CK, ECENZ, VD25 #### [address] [address] Fermentation Operator: Bret Vazquez MD Magnesiumon 09-07-2022 Magnesium [Mass/Vol] 2.1 mg/dL Normal 1.6-2.6 [facility] Comment on above: Performed By: #### I OCAL, CDP, MG, LACTIC, ALICIA, BNP, BMP #### [facility] [place], [place] [phone] Fermentation Operator: Bret Vazquez MD Performed By: #### E RTPF, CK, ECENZ, VD25 #### [facility] [address] [place] [address] [phone] Fermentation Operator: Bret Vazquez MD XR CHEST PORTABLEon 09-07-20 XR CHEST PORTABLE EXAMINATION: ONE XRAY VIEW OF THE CHEST 09/07/2022 9:41 am COMPARISON: 09/05/2022. HISTORY: ORDERING SYSTEM PROVIDED HISTORY: flail chest, r side rib fx, interval TECHNOLOGIST PROVIDED HISTORY: flail chest, r side rib fx, interval Reason for Exam: flail chest/ RT rib fx./interval/ AP erect/ port. FINDINGS: Cardiomediastinal silhouette appears unremarkable. Hazy right basilar parenchymal opacity likely representing atelectasis. No pneumothorax. Trace right pleural fluid. No aggressive osseous lesion. IMPRESSION: Trace right pleural fluid with hazy right basilar parenchymal opacity likely representing atelectasis. Superimposed pneumonia should be excluded clinically. Radiographic follow-up recommended to document resolution. Interpreted by: Bry Becker MD Signed by: Bry Becker MD 09/07/22 Final result Normal [facility] Basic Metab w/rfx MGon 09-06 Anion gap [Moles/Vol] 9 mmol/L Normal 9-17 [facility] Comment on above: Performed By: #### DONATO STARKSX, UMICAO #### [facility] [address] [place] [address] [phone] Fermentation Operator: Bret Vazquez MD Performed By: #### E JOHN GHLTEG #### [facility] [address] [place] [address] [phone] Fermentation Operator: Bret Vazquez MD Calcium [Mass/Vol] 7.4 mg/dL Low 8.6-10.4 [facility] Comment on above: Performed By: #### Jose R SAPP UAX, UMICAO #### [facility] [address] [place] [address] Fermentation Operator: Bret Vazquez MD Performed By: #### CHRISTY MOJICA #### [facility] [address] [place] [address] Fermentation Operator: Bret Vazquez MD Chloride [Moles/Vol] 104 mmol/L Normal 98-107 [facility] Comment on above: Performed By: #### GINI STARKS, UMICAO #### [facility] [address] [place] [address] Fermentation Operator: Bret Vazquez MD Performed By: #### CHRISTY MOJICA #### [facility] [address] [place] [address] Fermentation Operator: Bret Vazquez MD CO2 [Moles/Vol] 22 mmol/L Normal 20-31 [facility] Comment on above: Performed By: #### GINI STARKS, UMICAO #### [facility] [address] [place] [address] Fermentation Operator: Bret Vazquez MD Performed By: #### CHRISTY MOJICA #### [facility] [address] [place] [address] Fermentation Operator: Bret Vazquez MD Creatinine [Mass/Vol] 0.59 mg/dL Low 0.70-1.20 [facility] Comment on above: Performed By: #### Jose R SAPP UAPriti, UMICAO #### [facility] [address] [place] [address] Fermentation Operator: Bret Vazquez MD Performed By: #### CHRISTY MOJICA #### [facility] [address] [place] [address] Fermentation Operator: Bret Vazquez MD GFR/1.73 sq M.predicted among non-blacks MDRD (S/P/Bld) [Vol rate/Area] mL/min/{1.73_m2} Normal >60 [facility] Comment on above: Result Comment: Effective Jul 26, 2022 These results are not intended for use in patients <18 years of age. eGFR results are calculated without a race factor using the 2020 CKD-EPI equation. Careful clinical correlation is recommended, particularly when comparing to results calculated using previous equations. The CKD-EPI equation is less accurate in patients with extremes of muscle mass, extra-renal metabolism of creatine, excessive creatine ingestion, or following therapy that affects renal tubular secretion. Performed By: #### Jose R SAPP UAPriti, UMSAMSONO #### [facility] [address] [place] [address] Fermentation Operator: Bret Vazquez MD Performed By: #### CHRISTY MOJICA #### [facility] [address] [place] [address] Fermentation Operator: Bret Vazquez MD Glucose [Mass/Vol] 175 mg/dL High 70-99 [facility] Comment on above: Performed By: #### Jose R SAPP UAPriti, UMICAO #### [facility] [address] [place] [address] Fermentation Operator: Bret Vazquez MD Performed By: #### CHRISTY MOJICA #### [facility] [address] [place] [address] Fermentation Operator: Bret Vazquez MD Potassium [Moles/Vol] 4.5 mmol/L Normal 3.7-5.3 [facility] Comment on above: Performed By: #### Jose R SAPP UAPriti, UMICAO #### [facility] [address] [place] [address] Fermentation Operator: Bret Vazquez MD Performed By: #### CHRISTY MOJICA #### [facility] [address] [place] [address] Fermentation Operator: Bret Vazquez MD Sodium [Moles/Vol] 135 mmol/L Normal 135-144 [facility] Comment on above: Performed By: #### GINI STARKS UMSAMSONO #### [facility] [address] [place] [address] Fermentation Operator: Bret Vazquez MD Performed By: #### Isidro RTCHRISTY HIGGINS #### [facility] [address] [place] [address] Fermentation Operator: Bret Vazquez MD Urea nitrogen [Mass/Vol] 11 mg/dL Normal 8-23 [facility] Comment on above: Performed By: #### GINI STARKS UMICAMavis #### [facility] [address] [place] [address] Fermentation Operator: Bret Vazquez MD Performed By: #### CHRISTY MOJICA #### [facility] [address] [place] [address] Fermentation Operator: Bret Vazquez MD Basic Metabolic Profon 09-06 Anion gap [Moles/Vol] 7 mmol/L Low 9-17 [facility] Comment on above: Performed By: #### GINI STARKS, UMICAO #### [facility] [address] [place] [address] Fermentation Operator: Bret Vazquez MD Performed By: #### Isidro RTCHRISTY HIGGINS #### [facility] [address] [place] [address] Fermentation Operator: Bret Vazquez MD Calcium [Mass/Vol] 7.8 mg/dL Low 8.6-10.4 [facility] Comment on above: Performed By: #### GINI STARKS, UMICAO #### [facility] [address] [place] [address] Fermentation Operator: Bret Vazquez MD Performed By: #### Isidro RTCHRISTY HIGGINS #### [facility] [address] [place] [address] Fermentation Operator: Bret Vazquez MD Chloride [Moles/Vol] 107 mmol/L Normal 98-107 [facility] Comment on above: Performed By: #### Jose R AU, UAX, UMICAO #### [facility] [address] [place] [address] Fermentation Operator: Bret Vazquez MD Performed By: #### E RTKLARISSA HIGGINSEG #### [facility] [address] [place] [address] Fermentation Operator: Bret Vazquez MD CO2 [Moles/Vol] 23 mmol/L Normal 20-31 [facility] Comment on above: Performed By: #### Jose R SAPP, UAX, UMICAO #### [facility] [address] [place] [address] Fermentation Operator: Bret Vazquez MD Performed By: #### Isidro RTCHRISTY HIGGINS #### [facility] [address] [place] [address] Fermentation Operator: Bret Vazquez MD Creatinine [Mass/Vol] 0.60 mg/dL Low 0.70-1.20 [facility] Comment on above: Performed By: #### Jose R SAPP, UAX, UMICAO #### [facility] [address] [place] [address] Fermentation Operator: Bret Vazquez MD Performed By: #### E RTCHRISTY HIGGINS #### [facility] [address] [place] [address] Fermentation Operator: Bret Vazquez MD GFR/1.73 sq M.predicted among non-blacks MDRD (S/P/Bld) [Vol rate/Area] mL/min/{1.73_m2} Normal >60 [facility] Comment on above: Result Comment: Effective Jul 26, 2022 These results are not intended for use in patients <18 years of age. eGFR results are calculated without a race factor using the 2020 CKD-EPI equation. Careful clinical correlation is recommended, particularly when comparing to results calculated using previous equations. The CKD-EPI equation is less accurate in patients with extremes of muscle mass, extra-renal metabolism of creatine, excessive creatine ingestion, or following therapy that affects renal tubular secretion. Performed By: #### GINI STARKS, UMSAMSONO #### [facility] [address] [place] [address] Fermentation Operator: Bret Vazquez MD Performed By: #### E CHRISTY LOPEZ #### [address] [address] Fermentation Operator: Bret Vazquez MD Glucose [Mass/Vol] 155 mg/dL High 70-99 [facility] Comment on above: Performed By: #### Jose R SAPP UAPriti, UMICAO #### [facility] [address] [place] [address] Fermentation Operator: Bret Vazquez MD Performed By: #### CHRISTY MOJICA #### [facility] [address] [place] [address] Fermentation Operator: Bret Vazquez MD Potassium [Moles/Vol] 5.0 mmol/L Normal 3.7-5.3 [facility] Comment on above: Performed By: #### Jose R SAPP UAPriti, UMICAO #### [facility] [address] [place] [address] Fermentation Operator: Bret Vazquez MD Performed By: #### CHRISTY MOJICA #### [facility] [address] [place] [address] Fermentation Operator: Bret Vazquez MD Sodium [Moles/Vol] 137 mmol/L Normal 135-144 [facility] Comment on above: Performed By: #### Jose R SAPP UAX, UMICAO #### [facility] [address] [place] [address] Fermentation Operator: Bret Vazquez MD Performed By: #### E RTCHRISTY HIGGINS #### [facility] [address] [place] [address] Fermentation Operator: Bret Vazquez MD Urea nitrogen [Mass/Vol] 11 mg/dL Normal 8-23 [facility] Comment on above: Performed By: #### D AU, UAX, UMICAO #### [facility] [address] [place] [address] Fermentation Operator: Bret Vazquez MD Performed By: #### E RTKLARISSA HIGGINSEG #### [address] [address] Fermentation Operator: Bret Vazquez MD Anion gap [Moles/Vol] 11 mmol/L Normal 9-17 [facility] Comment on above: Performed By: #### I OCAL, CDP, MG, LACTIC, ALICIA, BNP, BMP #### [facility] [address] [place] [address] Fermentation Operator: Bret Vazquez MD Performed By: #### E RTPF, CK, ECENZ, VD25 #### [facility] [address] [place] [address] Fermentation Operator: Bret Vazquez MD Calcium [Mass/Vol] 7.5 mg/dL Low 8.6-10.4 [facility] Comment on above: Performed By: #### I OCAL, CDP, MG, LACTIC, ALICIA, BNP, BMP #### [facility] [address] [place] [address] Fermentation Operator: Bret Vazquez MD Performed By: #### E RTPF, CK, ECENZ, VD25 #### [facility] [address] [place] [address] Fermentation Operator: Bret Vazquez MD Chloride [Moles/Vol] 104 mmol/L Normal 98-107 [facility] Comment on above: Performed By: #### I OCAL, CDP, MG, LACTIC, ALICIA, BNP, BMP #### [address] [address] Fermentation Operator: Bret Vazquez MD Performed By: #### E RTPF, CK, ECENZ, VD25 #### [address] [address] Fermentation Operator: Bret Vazquez MD CO2 [Moles/Vol] 20 mmol/L Normal 20-31 [facility] Comment on above: Performed By: #### I OCAL, CDP, MG, LACTIC, ALICIA, BNP, BMP #### [address] [address] Fermentation Operator: Bret Vazquez MD Performed By: #### E RTPF, CK, ECENZ, VD25 #### [address] [address] Fermentation Operator: Bret Vazquez MD Creatinine [Mass/Vol] 0.62 mg/dL Low 0.70-1.20 [facility] Comment on above: Performed By: #### I OCAL, CDP, MG, LACTIC, ALICIA, BNP, BMP #### [address] [address] Fermentation Operator: Bret Vazquez MD Performed By: #### E RTPF, CK, ECENZ, VD25 #### [address] [address] Fermentation Operator: Bret Vazquez MD GFR/1.73 sq M.predicted among non-blacks MDRD (S/P/Bld) [Vol rate/Area] mL/min/{1.73_m2} Normal >60 [facility] Comment on above: Result Comment: Effective Jul 26, 2022 These results are not intended for use in patients <18 years of age. eGFR results are calculated without a race factor using the 2020 CKD-EPI equation. Careful clinical correlation is recommended, particularly when comparing to results calculated using previous equations. The CKD-EPI equation is less accurate in patients with extremes of muscle mass, extra-renal metabolism of creatine, excessive creatine ingestion, or following therapy that affects renal tubular secretion. Performed By: #### I OCAL, CDP, MG, LACTIC, ALICIA, BNP, BMP #### [address] [address] Fermentation Operator: Bret Vazquez MD Performed By: #### E RTPF, CK, ECENZ, VD25 #### [address] [address] Fermentation Operator: Bret Vazquez MD Glucose [Mass/Vol] 157 mg/dL High 70-99 [facility] Comment on above: Performed By: #### I OCAL, CDP, MG, LACTIC, ALICIA, BNP, BMP #### [address] [address] Fermentation Operator: Bret Vazquze MD Performed By: #### E RTPF, CK, ECENZ, VD25 #### [address] [address] Fermentation Operator: Bret Vazquez MD Potassium [Moles/Vol] 4.2 mmol/L Normal 3.7-5.3 [facility] Comment on above: Performed By: #### I OCAL, CDP, MG, LACTIC, ALICIA, BNP, BMP #### [address] [address] Fermentation Operator: Bret Vazquez MD Performed By: #### E RTPF, CK, ECENZ, VD25 #### [address] [address] Fermentation Operator: Bret Vazquez MD Sodium [Moles/Vol] 135 mmol/L Normal 135-144 [facility] Comment on above: Performed By: #### I OCAL, CDP, MG, LACTIC, ALICIA, BNP, BMP #### [facility] [address] [place] [address] Fermentation Operator: Bret Vazquez MD Performed By: #### E RTPF, CK, ECENZ, VD25 #### [facility] [address] [place] [address] Fermentation Operator: Bret Vazquez MD Urea nitrogen [Mass/Vol] 11 mg/dL Normal 8-23 [facility] Comment on above: Performed By: #### I OCAL, CDP, MG, LACTIC, ALICIA, BNP, BMP #### [facility] [address] [place] [address]478 Fermentation Operator: Bret Vazquez MD Performed By: #### E RTPF, CK, ECENZ, VD25 #### [address] [address] Fermentation Operator: Bret Vazquez MD Brain Natri. Peptideon 09-06 Natriuretic peptide B (Bld) [Mass/Vol] 846 pg/mL High <300 [facility] Comment on above: Result Comment: An age-independent cutoff point of 300 pg/ml has a 98% negative predictive value excluding acute heart failure. Performed By: #### B MPX, CDP #### [facility] [facility] [address] [place] [address]359 Fermentation Operator: Bret Vazquez MD Performed By: #### E RTPF, CK, ECENZ, VD25 #### [facility] [address] [place] [address] 61438 Fermentation Operator: Bret Vazquez MD CBC with Diffon 09-06-2022 Abs. Basophil 0.00 k/uL Normal 0.0-0.2 [facility] Comment on above: Performed By: #### D AU, UAX, UMICAO #### [facility] [address] [place] [address]259 Fermentation Operator: Bret Vazquez MD Performed By: #### CHRISTY MOJICA #### [address] [address] Fermentation Operator: Bret Vazquez MD Abs.Imm.Granulocyte 0.00 k/uL Normal 0.00-0.30 [facility] Comment on above: Performed By: #### GINI STARKS, UMSAMSONO #### [address] [address] Fermentation Operator: Bret Vazquez MD Performed By: #### KLARISSA MOJICAEG #### [place] [address] Fermentation Operator: Bret Vazquez MD Abs.Neutrophil (Seg) 8.46 k/uL High 1.8-7.7 [facility] Comment on above: Performed By: #### GINI STARKS, SHEMARO #### [place] [address] Fermentation Operator: Bret Vazquez MD Performed By: #### CHRISTY MOJICA #### [place] [address] Fermentation Operator: Bret Vazquez MD Basophils/100 WBC (Bld) 0 % Normal 0-2 [facility] Comment on above: Performed By: #### GINI STARKS, UMICAO #### [place] [address] Fermentation Operator: Bret Vazquez MD Performed By: #### CHRISTY MOJICA #### [place] [address] Fermentation Operator: Bret Vazquez MD Eosinophils (Bld) [#/Vol] 0.00 10*3/uL Normal 0.0-0.4 [facility] Comment on above: Performed By: #### D AU, UAX, UMICAO #### [facility] [address] [place] [address] Fermentation Operator: Bret Vazquez MD Performed By: #### E RTCHRISTY HIGGINS #### [facility] [address] [place] [address] Fermentation Operator: Bret Vazquez MD Eosinophils/100 WBC (Bld) 0 % Low 1-4 [facility] Comment on above: Performed By: #### Jose R AU, UAX, UMICAO #### [facility] [address] [place] [address] Fermentation Operator: Bret Vazquez MD Performed By: #### E RTCHRISTY HIGGINS #### [facility] [address] [place] [address]269 Fermentation Operator: Bret Vazquez MD Immature granulocytes/100 WBC (Bld) 0 % Normal 0 [facility] Comment on above: Performed By: #### D SENAIT, UAX, UMICAO #### [facility] [address] [place] [address] 38543 Fermentation Operator: Bret Vazquez MD Performed By: #### E CHRISTY LOPEZ #### [facility] [address] [place] [address]2734 Fermentation Operator: Bret Vazquez MD Lymphocytes (Bld) [#/Vol] 0.55 10*3/uL Low 1.0-4.8 [facility] Comment on above: Performed By: #### Jose R SAPP, UAX, UMICAO #### [facility] [address] [place] [address]09 Fermentation Operator: Bret Vazquez MD Performed By: #### E RTKLARISSA HIGGINSEG #### [facility] [address] [place] [address]308 Fermentation Operator: Bret Vazquez MD Lymphocytes/100 WBC (Bld) 6 % Low 24-44 [facility] Comment on above: Performed By: #### GINI STARKS, UMSAMSONO #### [address] [address] Fermentation Operator: Bret Vazquez MD Performed By: #### Isidro RTCHRISTY HIGGINS #### [address] [address] Fermentation Operator: Bret Vazquez MD Monocytes (Bld) [#/Vol] 0.09 10*3/uL Low 0.1-0.8 [facility] Comment on above: Performed By: #### GINI STARKS, UMEPIFANIO #### [address] [address] Fermentation Operator: Bret Vazquez MD Performed By: #### CHRISTY MOJICA #### [address] [address] Fermentation Operator: Bret Vazquez MD Monocytes/100 WBC (Bld) 1 % Normal 1-7 [facility] Comment on above: Performed By: #### GINI STARKS, UMSAMSONO #### [address] [address] Fermentation Operator: Bret Vazquez MD Performed By: #### Isidro RTCHRISTY HIGGINS #### [address] [address] Fermentation Operator: Bret Vazquez MD Morphology Ruy (Bld) [Interp] ANISOCYTOSIS PRESENT Normal [facility] Comment on above: Result Comment: 1+ ACANTHOCYTES Performed By: #### GINI STARKS, UMICAO #### [address] [address] Fermentation Operator: Bret Vazquez MD Performed By: #### Isidro RTCHRISTY HIGGINS #### [facility] [address] [place] [address] Fermentation Operator: Bret Vazquez MD Neutrophil (Seg) 93 % High 36-66 [facility] Comment on above: Performed By: #### Jose R SAPP UAX, UMICAO #### [facility] [address] [place] [address] Fermentation Operator: Bret Vazquez MD Performed By: #### E CHRISTY LOPEZ #### [facility] [address] [place] [address] 34459 Fermentation Operator: Bret Vazquez MD Erythrocyte distribution width (RBC) [Ratio] 16.8 % High 11.8-14.4 [facility] Comment on above: Performed By: #### Jose R SAPP UAPriti, UMICAO #### [facility] [address] [place] [address] 27990 Fermentation Operator: Bret Vazquez MD Performed By: #### E CHRISTY LOPEZ #### [facility] [address] [place] [address] 63030 Fermentation Operator: Bret Vazquez MD Hematocrit (Bld) [Volume fraction] 26.6 % Low 40.7-50.3 [facility] Comment on above: Performed By: #### GINI STARKS, UMICAO #### [facility] [address] [place] [address] Fermentation Operator: Bret Vazquez MD Performed By: #### E CHRISTY LOPEZ #### [facility] [address] [place] [address] 72014 Fermentation Operator: Bret Vazquez MD Hemoglobin (Bld) [Mass/Vol] 8.5 g/dL Low 13.0-17.0 [facility] Comment on above: Performed By: #### Jose R SAPP UAX, UMICAO #### [facility] [address] [place] [address]120 Fermentation Operator: Bret Vazquez MD Performed By: #### KLARISSA MOJICAEG #### [address] [address] Fermentation Operator: Bret Vazquez MD MCH (RBC) [Entitic mass] 31.6 pg Normal 25.2-33.5 [facility] Comment on above: Performed By: #### GINI STARKS, UMICAO #### [address] [address] Fermentation Operator: Bret Vazquez MD Performed By: #### CHRISTY MOJICA #### [address] [address] Fermentation Operator: Bret Vazquez MD MCHC (RBC) [Mass/Vol] 32.0 g/dL Normal 28.4-34.8 [facility] Comment on above: Performed By: #### GINI STARKS, UMICAO #### [address] [address] Fermentation Operator: Bret Vazquez MD Performed By: #### CHRISTY MOJICA #### [address] [address] Fermentation Operator: Bret Vazquez MD MCV (RBC) [Entitic vol] 98.9 fL Normal 82.6-102.9 [facility] Comment on above: Performed By: #### GINI STARKS, UMICAO #### [address] [address] Fermentation Operator: Bret Vazquez MD Performed By: #### CHRISTY MOJICA #### [address] [address] Fermentation Operator: Bret Vazquez MD NRBC Automated 0.0 per 100 WBC Normal 0.0 [facility] Comment on above: Performed By: #### Jose R SAPP, UAX, UMICAO #### [facility] [address] [place] [address] Fermentation Operator: Bret Vazquez MD Performed By: #### Isidro RTPFKLARISSAEG #### [facility] [address] [place] [address] Fermentation Operator: Bret Vazquez MD Platelet mean volume (Bld) [Entitic vol] 10.4 fL Normal 8.1-13.5 [facility] Comment on above: Performed By: #### Jose R SAPP, UAX, UMICAO #### [facility] [address] [place] [address] 26896 Fermentation Operator: Bret Vazquez MD Performed By: #### E RTKLARISSA HIGGINSEG #### [address] [address] Fermentation Operator: Bret Vazquez MD Platelets (Bld) [#/Vol] 224 10*3/uL Normal 138-453 [facility] Comment on above: Performed By: #### GINI STARKS, UMICAO #### [facility] [address] [place] [address] Fermentation Operator: Bret Vazquez MD Performed By: #### E RTRANDOLPH HIGGINSLTEG #### [facility] [address] [place] [address] 69406 Fermentation Operator: Bret Vazquez MD RBC (Bld) [#/Vol] 2.69 10*6/uL Low 4.21-5.77 [facility] Comment on above: Performed By: #### Jose R SAPP, UAX, UMICAO #### [facility] [address] [place] [address] 42464 Fermentation Operator: Bret Vazquez MD Performed By: #### E RTPF, GHLTEG #### [facility] [address] [place] [address] 29338 Fermentation Operator: Bret Vazquez MD WBC (Bld) [#/Vol] 9.1 10*3/uL Normal 3.5-11.3 [facility] Comment on above: Performed By: #### Jose R SAPP, UAX, UMICAO #### [facility] [address] [place] [address] 84256 Fermentation Operator: Bret Vazquez MD Performed By: #### E CHRISTY LOPEZ #### [facility] [address] [place] [address] 49072 Fermentation Operator: Bret Vazquez MD Abs. Basophil 0.03 k/uL Normal 0.00-0.20 [facility] Comment on above: Performed By: #### GINI STARKS, UMICAO #### [facility] [address] [place] [address] 37741 Fermentation Operator: Bret Vazquez MD Performed By: #### E CHRISTY LOPEZ #### [facility] [address] [place] [address] 15044 Fermentation Operator: Bret Vazquez MD Abs. Eosinophil <0.03 Normal 0.00-0.44 [facility] Comment on above: Performed By: #### GINI STARKS, UMICAO #### [facility] [address] [place] [address] 51243 Fermentation Operator: Bret Vazquez MD Performed By: #### E RTCHRISTY HIGGINS #### [facility] [address] [place] [address] 22895 Fermentation Operator: Bret Vazquez MD Abs.Imm.Granulocyte 0.05 k/uL Normal 0.00-0.30 [facility] Comment on above: Performed By: #### Jose R SAPP UAPriti, UMICAO #### [facility] [address] [place] [address]151 Fermentation Operator: Bret Vazquez MD Performed By: #### CHRISTY MOJICA #### [facility] [address] [place] [address] 55548 Fermentation Operator: Bret Vazuqez MD Abs.Neutrophil (Seg) 9.22 k/uL High 1.50-8.10 [facility] Comment on above: Performed By: #### GINI STARKS, CORRINA #### [facility] [address] [place] [address] 13260 Fermentation Operator: Bret Vazquez MD Performed By: #### E CHRISTY LOPEZ #### [facility] [address] [place] [address] 11817 Fermentation Operator: Bret Vazquez MD Basophils/100 WBC (Bld) 0 % Normal 0-2 [facility] Comment on above: Performed By: #### GINI STARKS, UMSAMSONO #### [facility] [address] [place] [address] 80262 Fermentation Operator: Bret Vazquez MD Performed By: #### CHRISTY MOJICA #### [facility] [address] [place] [address] 55835 Fermentation Operator: Bret Vazquez MD Eosinophils/100 WBC (Bld) 0 % Low 1-4 [facility] Comment on above: Performed By: #### GINI STARKS, UMICAO #### [facility] [address] [place] [address] 98970 Fermentation Operator: Bret Vazquez MD Performed By: #### CHRISTY MOJICA #### [facility] [address] [place] [address] 00284 Fermentation Operator: Bret Vazquez MD Erythrocyte distribution width (RBC) [Ratio] 16.8 % High 11.8-14.4 [facility] Comment on above: Performed By: #### GINI STARKS, UMICAO #### [facility] [address] [place] [address] 44485 Fermentation Operator: Bret Vazquez MD Performed By: #### CHRISTY MOJICA #### [address] [address] Fermentation Operator: Bret Vazquez MD Hematocrit (Bld) [Volume fraction] 30.0 % Low 40.7-50.3 [facility] Comment on above: Performed By: #### Jose R SAPP, UAX, UMICAO #### [address] [address] Fermentation Operator: Bret Vazquez MD Performed By: #### CHRISTY MOJICA #### [address] [address] Fermentation Operator: Bret Vazquez MD Hemoglobin (Bld) [Mass/Vol] 9.7 g/dL Low 13.0-17.0 [facility] Comment on above: Performed By: #### GINI STARKS, UMICAO #### [address] [address] Fermentation Operator: Bret Vazquez MD Performed By: #### CHRISTY MOJICA #### [address] [address] Fermentation Operator: Bret Vazquez MD Immature granulocytes/100 WBC (Bld) 0 % Normal 0 [facility] Comment on above: Performed By: #### Jose R SAPP UAX, UMICAO #### [facility] [address] [place] [address]183 Fermentation Operator: Bret Vazquez MD Performed By: #### E RTKLARISSA HIGGINSEG #### [facility] [address] [place] [address] 33740 Fermentation Operator: Bret Vazquez MD Lymphocytes (Bld) [#/Vol] 0.84 10*3/uL Low 1.10-3.70 [facility] Comment on above: Performed By: #### GINI STARKS UMICAO #### [address] [address] Fermentation Operator: Bret Vazquez MD Performed By: #### Isidro RTRANDOLPH HIGGINSLTEG #### [address] [address] Fermentation Operator: Bret Vazquez MD Lymphocytes/100 WBC (Bld) 8 % Low 24-43 [facility] Comment on above: Performed By: #### GINI STARKS UMICAO #### [address] [address] Fermentation Operator: Bret Vazquez MD Performed By: #### CHRISTY MOJICA #### [address] [address] Fermentation Operator: Bret Vazquez MD MCH (RBC) [Entitic mass] 31.6 pg Normal 25.2-33.5 [facility] Comment on above: Performed By: #### GINI STARKS UMICAO #### [facility] [address] [place] [address] 15835 Fermentation Operator: Bret Vazquez MD Performed By: #### Isidro RTRONALDO GHLTEG #### [facility] [address] [place] [address] 14060 Fermentation Operator: Bret Vazquez MD MCHC (RBC) [Mass/Vol] 32.3 g/dL Normal 28.4-34.8 [facility] Comment on above: Performed By: #### GINI STARKS, UMICAO #### [facility] [address] [place] [address] 69794 Fermentation Operator: Bret Vazquez MD Performed By: #### Isidro RTRONALDO GHLTEG #### [address] [address] Fermentation Operator: Bret Vazquez MD MCV (RBC) [Entitic vol] 97.7 fL Normal 82.6-102.9 [facility] Comment on above: Performed By: #### Jose R AU, UAX, UMICAO #### [address] [address] Fermentation Operator: Bret Vazquez MD Performed By: #### E RTPFKLARISSAEG #### [address] [address] Fermentation Operator: Bret Vazquez MD Monocytes (Bld) [#/Vol] 0.98 10*3/uL Normal 0.10-1.20 [facility] Comment on above: Performed By: #### Jose R SAPP, UAX, UMICAO #### [address] [address] Fermentation Operator: Bret Vazquez MD Performed By: #### E RTKLARISSA HIGGINSEG #### [address] [address] Fermentation Operator: Bret Vazquez MD Monocytes/100 WBC (Bld) 9 % Normal 3-12 [facility] Comment on above: Performed By: #### Jose R SAPP, UAX, UMICAO #### [address] [address] Fermentation Operator: Bret Vazquez MD Performed By: #### E RTPF GHLTEG #### [address] [address] Fermentation Operator: Bret Vazquez MD Neutrophil (Seg) 83 % High 36-65 [facility] Comment on above: Performed By: #### Jose R AU, UAX, UMICAO #### [facility] [address] [place] [address] 12570 Fermentation Operator: Bret Vazquez MD Performed By: #### Isidro RTCHRISTY HIGGINS #### [address] [address] Fermentation Operator: Bret Vazquez MD NRBC Automated 0.0 per 100 WBC Normal 0.0 [facility] Comment on above: Performed By: #### Jose R SAPP, UAX, UMICAO #### [address] [address] Fermentation Operator: Bret Vazquez MD Performed By: #### Isidro RTKLARISSA HIGGINSEG #### [address] [address] Fermentation Operator: Bret Vazquez MD Platelet mean volume (Bld) [Entitic vol] 10.2 fL Normal 8.1-13.5 [facility] Comment on above: Performed By: #### GINI STARKS, UMICAO #### [address] [address] Fermentation Operator: Bret Vazquez MD Performed By: #### KLARISSA MOJICAEG #### [address] [address] Fermentation Operator: Bret Vazquez MD Platelets (Bld) [#/Vol] 249 10*3/uL Normal 138-453 [facility] Comment on above: Performed By: #### Jose R SAPP, UAX, UMICAO #### [address] [address] Fermentation Operator: Bret Vazquez MD Performed By: #### Isidro RTKLARISSA HIGGINSEG #### [address] [address] Fermentation Operator: Bret Vazquez MD RBC (Bld) [#/Vol] 3.07 10*6/uL Low 4.21-5.77 [facility] Comment on above: Performed By: #### D AU, UAX, UMICAO #### [address] [address] Fermentation Operator: Bret Vazquez MD Performed By: #### E RTRANDOLPH HIGGINSLTEG #### [address] [address] Fermentation Operator: Bret Vazquez MD RBC morphology finding Nom (Bld) ANISOCYTOSIS PRESENT Normal [facility] Comment on above: Performed By: #### D SENAIT, UAX, UMICAO #### [address] [address] Fermentation Operator: Bret Vazquez MD Performed By: #### E RTKLARISSA HIGGINSEG #### [address] [address] Fermentation Operator: Bret Vazquez MD WBC (Bld) [#/Vol] 11.1 10*3/uL Normal 3.5-11.3 [facility] Comment on above: Performed By: #### Jose R SAPP, UAX, UMICAO #### [address] [address] Fermentation Operator: Bret Vazquez MD Performed By: #### E RTRONALDO GHLTEG #### [place] [address] Fermentation Operator: Bret Vazquez MD Abs. Basophil 0.04 k/uL Normal 0.00-0.20 [facility] Comment on above: Performed By: #### I OCAL, CDP, MG, LACTIC, ALICIA, BNP, BMP #### [address] [address] Fermentation Operator: Bret Vazquez MD Performed By: #### E RTPF, CK, ECENZ, VD25 #### [facility] [address] [place] [address]85 Fermentation Operator: Bret Vazquez MD Abs.Imm.Granulocyte 0.07 k/uL Normal 0.00-0.30 [facility] Comment on above: Performed By: #### I OCAL, CDP, MG, LACTIC, ALICIA, BNP, BMP #### [address] [address] Fermentation Operator: Bret Vazquez MD Performed By: #### E RTPF, CK, ECENZ, VD25 #### [place] [address] Fermentation Operator: Bret Vazquez MD Abs.Neutrophil (Seg) 13.83 k/uL High 1.50-8.10 [facility] Comment on above: Performed By: #### I OCAL, CDP, MG, LACTIC, ALICIA, BNP, BMP #### [place] [address] Fermentation Operator: Bret Vazquez MD Performed By: #### E RTPF, CK, ECENZ, VD25 #### [place] [address] Fermentation Operator: Bret Vazquez MD Basophils/100 WBC (Bld) 0 % Normal 0-2 [facility] Comment on above: Performed By: #### I OCAL, CDP, MG, LACTIC, ALICIA, BNP, BMP #### [place] [address] Fermentation Operator: Bret Vazquez MD Performed By: #### E RTPF, CK, ECENZ, VD25 #### [facility] [address] [place] [address] Fermentation Operator: Bret Vazquez MD Eosinophils (Bld) [#/Vol] 0.07 10*3/uL Normal 0.00-0.44 [facility] Comment on above: Performed By: #### I OCAL, CDP, MG, LACTIC, ALICIA, BNP, BMP #### [facility] [address] [place] [address]53 Fermentation Operator: Bret Vazquez MD Performed By: #### E RTPF, CK, ECENZ, VD25 #### [facility] [address] [place] [address] 67186 Fermentation Operator: Bret Vazquez MD Eosinophils/100 WBC (Bld) 0 % Low 1-4 [facility] Comment on above: Performed By: #### I OCAL, CDP, MG, LACTIC, ALICIA, BNP, BMP #### [facility] [address] [place] [address] 69687 Fermentation Operator: Bret Vazquez MD Performed By: #### E RTPF, CK, ECENZ, VD25 #### [facility] [address] [place] [address] 12459 Fermentation Operator: Bret Vazquez MD Erythrocyte distribution width (RBC) [Ratio] 16.4 % High 11.8-14.4 [facility] Comment on above: Performed By: #### I OCAL, CDP, MG, LACTIC, ALICIA, BNP, BMP #### [facility] [address] [place] [address] 30677 Fermentation Operator: Bret Vazquez MD Performed By: #### E RTPF, CK, ECENZ, VD25 #### [facility] [address] [place] [address] 10853 Fermentation Operator: Bret Vazquez MD Hematocrit (Bld) [Volume fraction] 33.2 % Low 40.7-50.3 [facility] Comment on above: Performed By: #### I OCAL, CDP, MG, LACTIC, ALICIA, BNP, BMP #### [facility] [address] [place] [address] 6[address]53 Fermentation Operator: Bret Vazquez MD Performed By: #### E RTPF, CK, ECENZ, VD25 #### [address] [address] Fermentation Operator: Bret Vazquez MD Hemoglobin (Bld) [Mass/Vol] 11.1 g/dL Low 13.0-17.0 [facility] Comment on above: Performed By: #### I OCAL, CDP, MG, LACTIC, ALICIA, BNP, BMP #### [address] [address] Fermentation Operator: Bret Vazquez MD Performed By: #### E RTPF, CK, ECENZ, VD25 #### [address] [address] Fermentation Operator: Bret Vazquez MD Immature granulocytes/100 WBC (Bld) 0 % Normal 0 [facility] Comment on above: Performed By: #### I OCAL, CDP, MG, LACTIC, ALICIA, BNP, BMP #### [place] [address] Fermentation Operator: Bret Vazquez MD Performed By: #### E RTPF, CK, ECENZ, VD25 #### [place] [address] Fermentation Operator: Bret Vazquez MD Lymphocytes (Bld) [#/Vol] 1.05 10*3/uL Low 1.10-3.70 [facility] Comment on above: Performed By: #### I OCAL, CDP, MG, LACTIC, ALICIA, BNP, BMP #### [address] [address] Fermentation Operator: Bret Vazquez MD Performed By: #### E RTPF, CK, ECENZ, VD25 #### [address] [address] Fermentation Operator: Bret Vazquez MD Lymphocytes/100 WBC (Bld) 6 % Low 24-43 [facility] Comment on above: Performed By: #### I OCAL, CDP, MG, LACTIC, ALICIA, BNP, BMP #### [address] [address] Fermentation Operator: Bret Vazquez MD Performed By: #### E RTPF, CK, ECENZ, VD25 #### [address] [address] Fermentation Operator: Bret Vazquez MD MCH (RBC) [Entitic mass] 31.5 pg Normal 25.2-33.5 [facility] Comment on above: Performed By: #### I OCAL, CDP, MG, LACTIC, ALICIA, BNP, BMP #### [address] [address] Fermentation Operator: Bret Vazquez MD Performed By: #### E RTPF, CK, ECENZ, VD25 #### [address] [address] Fermentation Operator: Bret Vazquez MD MCHC (RBC) [Mass/Vol] 33.4 g/dL Normal 28.4-34.8 [facility] Comment on above: Performed By: #### I OCAL, CDP, MG, LACTIC, ALICIA, BNP, BMP #### [address] [address] Fermentation Operator: Bret Vazquez MD Performed By: #### E RTPF, CK, ECENZ, VD25 #### [address] [address] Fermentation Operator: Bret Vazquez MD MCV (RBC) [Entitic vol] 94.3 fL Normal 82.6-102.9 [facility] Comment on above: Performed By: #### I OCAL, CDP, MG, LACTIC, ALICIA, BNP, BMP #### [address] [address] [address] Fermentation Operator: Bret Vazquez MD Performed By: #### E RTPF, CK, ECENZ, VD25 #### [address] [address] Fermentation Operator: Bret Vazquez MD Monocytes (Bld) [#/Vol] 1.34 10*3/uL High 0.10-1.20 [facility] Comment on above: Performed By: #### I OCAL, CDP, MG, LACTIC, ALICIA, BNP, BMP #### [address] [address] Fermentation Operator: Bret Vazquez MD Performed By: #### E RTPF, CK, ECENZ, VD25 #### [address] [address] Fermentation Operator: Bret Vazquez MD Monocytes/100 WBC (Bld) 8 % Normal 3-12 [facility] Comment on above: Performed By: #### I OCAL, CDP, MG, LACTIC, ALICIA, BNP, BMP #### [address] [address] Fermentation Operator: Bret Vazquez MD Performed By: #### E RTPF, CK, ECENZ, VD25 #### [address] [address] Fermentation Operator: Bret Vazquez MD Neutrophil (Seg) 84 % High 36-65 [facility] Comment on above: Performed By: #### I OCAL, CDP, MG, LACTIC, ALICIA, BNP, BMP #### [address] [address] Fermentation Operator: Bret Vazquez MD Performed By: #### E RTPF, CK, ECENZ, VD25 #### [address] [address] Fermentation Operator: Bret Vazquez MD NRBC Automated 0.0 per 100 WBC Normal 0.0 [facility] Comment on above: Performed By: #### I OCAL, CDP, MG, LACTIC, ALICIA, BNP, BMP #### [facility] [address] [place] [address] Fermentation Operator: Bret Vazquez MD Performed By: #### E RTPF, CK, ECENZ, VD25 #### [facility] [address] [place] [address] Fermentation Operator: Bret Vazquez MD Platelet mean volume (Bld) [Entitic vol] 10.2 fL Normal 8.1-13.5 [facility] Comment on above: Performed By: #### I OCAL, CDP, MG, LACTIC, ALICIA, BNP, BMP #### [facility] [address] [place] [address] Fermentation Operator: Bret Vazquez MD Performed By: #### E RTPF, CK, ECENZ, VD25 #### [facility] [address] [place] [address] Fermentation Operator: Bret Vazquez MD Platelets (Bld) [#/Vol] 283 10*3/uL Normal 138-453 [facility] Comment on above: Performed By: #### I OCAL, CDP, MG, LACTIC, ALICIA, BNP, BMP #### [facility] [address] [place] [address] Fermentation Operator: Bret Vazquez MD Performed By: #### E RTPF, CK, ECENZ, VD25 #### [facility] [address] [place] [address] Fermentation Operator: Bret Vazquez MD RBC (Bld) [#/Vol] 3.52 10*6/uL Low 4.21-5.77 [facility] Comment on above: Performed By: #### I OCAL, CDP, MG, LACTIC, ALICIA, BNP, BMP #### [facility] [address] [place] [address] Fermentation Operator: Bret Vazquez MD Performed By: #### E RTPF, CK, ECENZ, VD25 #### [address] [address] Fermentation Operator: Bret Vazquez MD RBC morphology finding Nom (Bld) ANISOCYTOSIS PRESENT Normal [facility] Comment on above: Performed By: #### I OCAL, CDP, MG, LACTIC, ALICIA, BNP, BMP #### [facility] [address] [place] [address] Fermentation Operator: Bret Vazquez MD Performed By: #### E RTPF, CK, ECENZ, VD25 #### [address] [address] Fermentation Operator: Bret Vazquez MD WBC (Bld) [#/Vol] 16.4 10*3/uL High 3.5-11.3 [facility] Comment on above: Performed By: #### I OCAL, CDP, MG, LACTIC, ALICIA, BNP, BMP #### [facility] [address] [place] [address] Fermentation Operator: Bret Vazquez MD Performed By: #### E RTPF, CK, ECENZ, VD25 #### [address] [address] Fermentation Operator: Bret Vazquez MD CT 3D RECONSTRUCTIONon 09-06 CT 3D RECONSTRUCTION EXAMINATION: CT OF THE LEFT ANKLE WITHOUT CONTRAST; 3D RECONSTRUCTIONS 09/05/2022 11:00 pm TECHNIQUE: CT of the left ankle was performed without the administration of intravenous contrast. Multiplanar reformatted images are provided for review. Automated exposure control, iterative reconstruction, and/or weight based adjustment of the mA/kV was utilized to reduce the radiation dose to as low as reasonably achievable.; 3D reconstructions were performed on a separate workstation. Automated exposure control, iterative reconstruction, and/or weight based adjustment of the mA/kV was utilized to reduce the radiation dose to as low as reasonably achievable. COMPARISON: Left ankle radiographs from 09/05/2022. HISTORY ORDERING SYSTEM PROVIDED HISTORY: Trauma TECHNOLOGIST PROVIDED HISTORY: Please format for thin cuts. Thank you. Trauma 67-year-old male with history of trauma. FINDINGS: Bones: Oblique distal fibular diaphyseal fracture with lateral displacement of the distal fibular fracture fragment measuring up to 1.7 cm on image 25, series 601. Inferiorly displaced fracture of the medial malleolus with inferior displacement by 8 mm on image 18, series 601. There is anterior displacement by approximately 6 mm and mild anterior apex angulation on image 26, series 602. Avulsion fracture of the anterior and lateral aspect of the distal tibia at the tibiofibular syndesmosis on image 51, series 4 with anterolateral displacement of the fracture fragment measuring up to 7 mm as seen on image 51, series 4 and also seen on images 44-48, series 602. Small fracture fragments are seen along the distal fibular fracture and inferior tibiofibular syndesmosis. Tiny punctate ossific densities are seen about the medial malleolus and medial talus. Soft Tissue: Moderate to severe soft tissue edema and induration. Soft tissue defect along the medial ankle and hindfoot. Multifocal posttraumatic soft tissue gas about the ankle. Moderate to severe edema and soft tissue swelling and induration along the dorsal left foot. Atherosclerotic calcification of the vasculature. Visualized peroneal, flexor, and extensor tendons are seen in their expected locations. Hematoma along the medial aspect of the ankle measuring 3.5 x 1.9 x 4.7 cm on image 30, series 2 and image 19, series 602. Joint: Mild degenerative changes of the midfoot and tarsal metatarsal joints with associated subcortical cystic changes. Small posterior tibiotalar and subtalar joint effusion. No osteochondral lesion or defect at the talar dome. IMPRESSION: 1. Acute oblique distal fibular diaphyseal fracture with lateral displacement. 2. Acute inferiorly displaced medial malleolus fracture. 3. Avulsion fracture of the anterior and inferior distal tibia at the tibiofibular syndesmosis with anterolateral displaced 7 mm fracture fragment. 4. Tiny fracture fragments along the distal fibular fracture and inferior tibiofibular syndesmosis. Similar punctate ossific densities along the medial malleolus and medial talus. 5. Moderate to severe soft tissue swelling, edema, and induration about the ankle and foot. Hematoma along the medial ankle measuring 3.5 x 1.9 x 4.7 cm. 6. Mild diffuse degenerative changes as above. 7. Small posterior tibiotalar and subtalar effusions. Interpreted by: Dallin Pineda MD Signed by: Dallin Pineda MD 09/06/22 Final result Normal [facility] CT ANKLE LEFT WO CONTRASTon 09-06-2022 CT ANKLE LEFT WO CONTRAST EXAMINATION: CT OF THE LEFT ANKLE WITHOUT CONTRAST; 3D RECONSTRUCTIONS 09/05/2022 11:00 pm TECHNIQUE: CT of the left ankle was performed without the administration of intravenous contrast. Multiplanar reformatted images are provided for review. Automated exposure control, iterative reconstruction, and/or weight based adjustment of the mA/kV was utilized to reduce the radiation dose to as low as reasonably achievable.; 3D reconstructions were performed on a separate workstation. Automated exposure control, iterative reconstruction, and/or weight based adjustment of the mA/kV was utilized to reduce the radiation dose to as low as reasonably achievable. COMPARISON: Left ankle radiographs from 09/05/2022. HISTORY ORDERING SYSTEM PROVIDED HISTORY: Trauma TECHNOLOGIST PROVIDED HISTORY: Please format for thin cuts. Thank you. Trauma 67-year-old male with history of trauma. FINDINGS: Bones: Oblique distal fibular diaphyseal fracture with lateral displacement of the distal fibular fracture fragment measuring up to 1.7 cm on image 25, series 601. Inferiorly displaced fracture of the medial malleolus with inferior displacement by 8 mm on image 18, series 601. There is anterior displacement by approximately 6 mm and mild anterior apex angulation on image 26, series 602. Avulsion fracture of the anterior and lateral aspect of the distal tibia at the tibiofibular syndesmosis on image 51, series 4 with anterolateral displacement of the fracture fragment measuring up to 7 mm as seen on image 51, series 4 and also seen on images 44-48, series 602. Small fracture fragments are seen along the distal fibular fracture and inferior tibiofibular syndesmosis. Tiny punctate ossific densities are seen about the medial malleolus and medial talus. Soft Tissue: Moderate to severe soft tissue edema and induration. Soft tissue defect along the medial ankle and hindfoot. Multifocal posttraumatic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 [address] Fermentation Operator: Bret Vazquez MD Performed By: #### E RTPF, CK, ECENZ, VD25 #### [facility] [address] [place] [address] Fermentation Operator: Bret Vazquez MD XR TIBIA FIBULA LEFT (2 VIEW S)on 09-05-2022 XR TIBIA FIBULA LEFT (2 VIEWS) EXAMINATION: 2 XRAY VIEWS OF THE LEFT TIBIA AND FIBULA 09/05/2022 9:09 pm COMPARISON: None. HISTORY: ORDERING SYSTEM PROVIDED HISTORY: Trauma/Fracture TECHNOLOGIST PROVIDED HISTORY: Trauma/Fracture FINDINGS: *Compound bimalleolar ankle fracture/dislocation, dislocated laterally. *Numerous soft tissue venous calcifications are demonstrated typically seen with venous insufficiency. *Diffuse soft tissue edema left lower leg. *The proximal portions of the tibia and fibula appear unremarkable, left knee arthroplasty. IMPRESSION: 1. Compound bimalleolar ankle fracture/dislocation. 2. Numerous soft tissue venous calcifications are demonstrated typically seen with venous insufficiency. 3. Diffuse soft tissue edema left lower leg. 4. The proximal portions of the tibia and fibula appear unremarkable, left knee arthroplasty. Interpreted by: Los Araujo MD Signed by: Los Araujo MD 09/05/22 Final result Normal [facility] Q - CBC (H/H,RBC,INDICES,WBC ,PLT)on 03-11-2022 Erythrocyte distribution width (RBC) [Ratio] 13.7 % Normal 11.0-15.0 [facility] Comment on above: Order Comment: [facility] performed at: [facility], [address] [place] [address], [address] [place] [address], [phone], Dye Tub Tender: Juan Daniel Cool MDQuest Collection Date/Time: Results Received Date/Time: [id number] Reported Date/Time: Performed By: #### T SH, CMP, LIPD #### [facility] [address] [place], [place] [id number] Hematocrit (Bld) [Volume fraction] 42.5 % Normal 38.5-50.0 [facility] Comment on above: Order Comment: [facility] performed at: [facility], [address] [facility], [address] [place] [address], [phone], Dye Tub Tender: Juan Daniel oCol MDQuest Collection Date/Time: [id number] Results Received Date/Time: [id number] Reported Date/Time: Performed By: #### T SH, CMP, LIPD #### [facility] [address] [place], [place] [id number] Hemoglobin (Bld) [Mass/Vol] 14.3 g/dL Normal 13.2-17.1 [facility] Comment on above: Order Comment: [facility] performed at: [facility], [facility], [address] [facility], [address] [place] [address], [phone], Dye Tub Tender: Juan Daniel Mckeon Collection Date/Time: Results Received Date/Time: Reported Date/Time: Performed By: #### T SH, CMP, LIPD #### [facility] [address] [place], [place] [id number] MCH (RBC) [Entitic mass] 32.9 pg Normal 27.0-33.0 [facility] Comment on above: Order Comment: [facility] performed at: [facility], [facility], [address] [place] [address], [address] [place] [address], [phone], Dye Tub Tender: Juan Daniel Mckeon Collection Date/Time: Results Received Date/Time: Reported Date/Time: Performed By: #### T SH, CMP, LIPD #### [facility] [address] [place], [place] [id number] MCHC (RBC) [Mass/Vol] 33.6 g/dL Normal 32.0-36.0 [facility] Comment on above: Order Comment: [facility] performed at: [facility], [address] [place] [address], [address] [place] [address], [phone], Dye Tub Tender: Juan Daniel Mckeon Collection Date/Time: Results Received Date/Time: [id number] Reported Date/Time: Performed By: #### T SH, CMP, LIPD #### [facility] [address] [place], [place] [id number] MCV (RBC) [Entitic vol] 97.9 fL Normal 80.0-100.0 N [facility] Comment on above: Order Comment: [facility] performed at: [facility], [facility], [address] [facility], [address] [place] [address], [address] [place] [address], Dye Tub Tender: Juan Daniel Mckeon Collection Date/Time: Results Received Date/Time: Reported Date/Time: Performed By: #### T SH, CMP, LIPD #### [facility] [address] [place], [place] [id number] Platelet mean volume (Bld) [Entitic vol] 11.0 fL Normal 7.5-12.5 [facility] Comment on above: Order Comment: [facility] performed at: [facility], [facility], [address] [place] [address], [address] [place] [address], [address] [place] [address], Dye Tub Tender: Juan Daniel Mckeon Collection Date/Time: Results Received Date/Time: Reported Date/Time: Performed By: #### T NELY, CMP, LIPD #### [facility] [address] [place], [place] [id number] Platelets (Bld) [#/Vol] 398 10*3/uL Normal 140-400 [facility] Comment on above: Order Comment: [facility] performed at: [facility], [address] [facility], [address] [place] [address], [address] [place] [address], Dye Tub Tender: Juan Daniel Mckeon Collection Date/Time: Results Received Date/Time: [id number] Reported Date/Time: Performed By: #### T SH, CMP, LIPD #### [facility] [address] [place], [place] [id number] RBC (Bld) [#/Vol] 4.34 10*6/uL Normal 4.20-5.80 [facility] Comment on above: Order Comment: [facility] performed at: [facility], [facility], [address] [facility], [address] [place] [address], [address] [place] [address], Dye Tub Tender: Juan Daniel Merati MDQuest Collection Date/Time: Results Received Date/Time: [id number] Reported Date/Time: Performed By: #### T SH, CMP, LIPD #### [facility] [address] [place], [place] [id number] WBC (Bld) [#/Vol] 9.7 10*3/uL Normal 3.8-10.8 Brigitte rn [place] [employer] Comment on above: Order Comment: [facility] performed at: Q, [facility], [address] [facility], [address] [place], [address], Dye Tub Tender: Juan Daniel Cool MDQuest Collection Date/Time: Results Received Date/Time: Reported Date/Time: Performed By: #### T SH, CMP, LIPD #### [facility] [address], [place] [id number] Comprehensive Metabolic [facility] 03-08-2022 Albumin [Mass/Vol] 3.2 g/dL Low 3.6-5.1 Brigitte mcarthur [place] [employer] Comment on above: Performed By: #### T SH, CMP, LIPD #### [facility] [address], [place] [id number] Albumin/Globulin [Mass ratio] 1.2 {ratio} Normal 1.0-2.5 [facility] Comment on above: Performed By: #### T SH, CMP, LIPD #### [facility] [address], [place] [id number] ALP [Catalytic activity/Vol] 100 U/L Normal 40-129 [facility] Comment on above: Performed By: #### T SH, CMP, LIPD #### [facility] [address], [place] [id number] ALT [Catalytic activity/Vol] 11 U/L Normal 9-46 [facility] Comment on above: Result Comment: 09/23 Female reference range changed. Performed By: #### T SH, CMP, LIPD #### [facility] [address], [place] [id number] Anion gap [Moles/Vol] 18 mmol/L Normal 12-[address] [facility] Comment on above: Result Comment: Effe ctive 10/29/2019 reference range changed. Performed By: #### T NELY, CMP, LIPD #### [facility] [address], [place] [id number] AST [Catalytic activity/Vol] 14 U/L Normal 10-40 [facility] Comment on above: Performed By: #### T SH, CMP, LIPD #### [facility] [address], [place] [id number] Bilirubin [Mass/Vol] 1.17 mg/dL Normal 0.30-1.20 [facility] Comment on above: Performed By: #### T NELY, CMP, LIPD #### [facility] [address] [place], [place] [id number] BUN/CREA 14 Ratio Normal 6-22 [facility] Comment on above: Performed By: #### T NELY, CMP, LIPD #### [facility] [address], [place] [id number] Calcium [Mass/Vol] 8.3 mg/dL Low 8.6-10.2 [facility] Comment on above: Performed By: #### T NELY, CMP, LIPD #### [facility] [address], [place] [id number] Chloride [Moles/Vol] 103 mmol/L Normal 98-107 [facility] Comment on above: Performed By: #### T SH, CMP, LIPD #### [facility] [address], [place] [id number] CO2 [Moles/Vol] 25 mmol/L Normal 20-31 [facility] Comment on above: Performed By: #### T NELY, CMP, LIPD #### [facility] [address], [place] [id number] Creatinine [Mass/Vol] 0.8 mg/dL Normal 0.7-1.[address] [facility] Comment on above: Performed By: #### T NELY, CMP, LIPD #### [facility] [address], [place] [id number] eGFRAA 118 mL/min/1.73m2 Normal >60 [facility] Specialist Comment on above: Performed By: #### T NELY, CMP, LIPD #### [facility] [address] [place], [place] [id number] eGFRNAA 97 mL/min/1.73m2 Normal >60 [facility] Specialist Comment on above: Performed By: #### T NELY, CMP, LIPD #### [facility] [address], [place] [id number] Globulin (S) [Mass/Vol] 2.6 g/dL Normal 1.9-3.7 [facility] Comment on above: Performed By: #### T NELY, CMP, LIPD #### [facility] [address], [place] [id number] Glucose [Mass/Vol] 110 mg/dL High 65-99 [facility] Comment on above: Result Comment: For FASTING Glucose --- ADA reference ranges: Normal 65-99 mg/dl Prediabetes 100-125 Diabetes >/= 126 Performed By: #### T NELY, CMP, LIPD #### [facility] [address], [place] [id number] Potassium [Moles/Vol] 3.5 mmol/L Normal 3.5-5.[address] [facility] Comment on above: Performed By: #### T NELY, CMP, LIPD #### [facility] [address], [place] [id number] Protein [Mass/Vol] 5.8 g/dL Low 6.1-8.1 Brigitte [facility] Soil Tester Comment on above: Performed By: #### T NELY, CMP, LIPD #### [facility] [address] [facility] [place] [id number] Sodium [Moles/Vol] 142 mmol/L Normal 135-146 Brigitte mcarthur [place] [employer] Comment on above: Performed By: #### T SH, CMP, LIPD #### [facility] [address] [facility] [address] [facility] [facility] [address] [place] [id number] Urea nitrogen [Mass/Vol] 11 mg/dL Normal 7-25 [facility] Specialist Comment on above: Performed By: #### T SH, CMP, LIPD #### [facility] [address], [place] [id number] Lipid Panelon 03-08-2022 Cholesterol [Mass/Vol] 177 mg/dL Normal 125-200 [facility]: Result Comment: Low risk < 200mg/dL Borderline risk 201-239 mg/dl High risk > or equal to 240 Performed By: #### T SH, CMP, LIPD #### [facility] [address], [place] [id number] Cholesterol in HDL [Mass/Vol] 87 mg/dL Normal >40 [facility] Comment on above: Result Comment: High Cardiovascular Risk HDL <40 mg/dL Low Cardiovascular Risk HDL > or equal to 60 mg/dl Performed By: #### T SH, CMP, LIPD #### [facility] [address], [place] [id number] Cholesterol in LDL [Mass/Vol] 64 mg/dL Normal [facility] Comment on above: Result Comment: LDL ATP III CLASSIFICATION LDL less than 100 mg/dl Optimal LDL 100-129 mg/dl Near or above optimal LDL 130-159 Borderline high LDL 160-189 High LDL greater than 189 mg/dl Very High Performed By: #### T SH, CMP, LIPD #### [facility] [address], [place] [id number] Cholesterol in VLDL [Mass/Vol] 26 mg/dL Normal [facility] Comment on above: Performed By: #### T SH, CMP, LIPD #### [facility] [address], [place] [id number] Cholesterol.total/Choles terol in HDL [Mass ratio] 2 {ratio} Normal [facility] Comment on above: Performed By: #### T SH, CMP, LIPD #### [facility] [address] [place], [place] [id number] Triglyceride [Mass/Vol] 131 mg/dL Normal 30-[address] [facility] Comment on above: Result Comment: TRIG ATPIII CLASSIFICATIONS TRIG less than 150 mg/dl Normal TRIG 150-199 mg/dl Borderline High TRIG 200-500 mg/dl High TRIG greather than 500 mg/dl Very High Performed By: #### T SH, CMP, LIPD #### [facility] [address], [place] [id number] PSA SCREEN (MEDICARE)on 02-21 TPSA 6.330 ng/mL High <4.000 [facility] Comment on above: Result Comment: PSA Test Method: ECLIA/Horacio e 601 Performed By: #### T SH, CMP, LIPD #### [facility] [address], [place] [id number] TSHon 03-08-2022 TSH 1.060 uIU/mL Normal 0.400-4.50 0 [facility] Comment on above: Performed By: #### T SH, CMP, LIPD #### [facility] [address] [place], [place] [id number] Operative Reporton Operative Report MR#: [id number] I [facility] Pt. Name: nIdio Collado Room #: 6AB [id number] Discharge 02/16/2022 Date: Birthdate: 1955 OPERATIVE REPORT DATE OF SURGERY: 02/15/2022 SURGEON: Christopher Yang M.D. BANANA GRADER: MD Kell and ANABELL Cedeño. ANESTHESIA: General anesthesia. ESTIMATED BLOOD LOSS: Per Anesthesia note. COMPLICATIONS: None. SPECIMENS: None. PREOPERATIVE DIAGNOSES: Right total knee arthroplasty osteolysis. POSTOPERATIVE DIAGNOSES: 1. Right total knee arthroplasty, osteolysis. 2. Right total knee arthroplasty loosening. INDICATION FOR PROCEDURE: This is a 66-year-old male, who has had a right total knee arthroplasty, who has a periprosthetic osteolysis and increasing pain. I discussed with my recommendation for revision. OPERATIVE COURSE: The patient was brought to the operating room and placed supine on the operating table. General anesthesia was obtained. The right lower extremity had a nonsterile tourniquet placed, prepped and draped sterilely. Time-out was completed. Preoperative antibiotics were confirmed and given. The leg was gravity exsanguinated and tourniquet was placed. I made an incision on the right knee. This had a previous midline incision. I dissected down the overlying retinaculum, extending a little bit proximally. I made a full-thickness medial lateral flap and it was raised. Medial parapatellar arthrotomy made. Fluid was evacuated, sent for routine culture and sensitivity. Soft tissue was dissected away from the anteromedial aspect of the tibia. Medial and lateral synovectomy was completed. Some of soft tissue sent for routine culture and sensitivity. I incised the lateral tissue off the patella. The patella was subluxed and the knee was placed in flexion. I inspected the joint. I removed the previously placed polyethylene and noted that the tibia was obviously loose. Therefore, I then went for full knee revision. I then went around the femoral component with a reciprocating saw, an osteotome was removed with minimal bone loss. Little bit osteolysis behind it, but it was debrided the soft tissue. I then subluxed the tibia anteriorly and incised the posterior capsule tissue on the tibia. I then removed the tibial tray by hand. I removed the cement from within the keel region. I then drilled the tibial side. I reamed the tibial side and set the SSK jig into position. I made a cleanup cut on the tibial side. As I did that, I then set rotation and confirmed that the cut was appropriate based on the drop michelle. I pinned the jig into position with a 75. I then removed some peripheral osteophyte. I then drilled for the boss and punch for the keel. I placed trial position on the tibial side. The femoral side to set and drilled the femoral canal and then reamed it. I then set the distal femoral cut jig into position and made the cut. Cut appeared to be appropriate. I then set rotation based on the epicondylar axis and pinned the jig in position. I made recut anteriorly and posteriorly. The trial was then placed on the femoral side. Once it was placed, the knee was taken through range of motion noted that was acceptable. The patella was also tracked properly. I recut the patella and then redrilled for the patella side as well. I then cut for box on the femoral side. The trials were removed. The tourniquet was cycled. Bony surfaces were irrigated and dried. The tibia and femur were cemented in position. Excess bone cement was removed. Polyethylene insert trials were placed. The patella was also cemented in position as well. I then placed the 16 PS polyethylene into position with locking bar. The arthrotomy was closed itself with #2 interrupted [id number] suture. The remainder of the incision closed in layered fashion. Sterile dressing applied. At the conclusion of the case, all sponge and needle counts were correct. I was present for the critical portions of the case. COMPONENTS: 1. Biomet Vanguard 360, size 62.5 femoral component. 2. 5 mm medial and 10 mm lateral distal femoral augments. 3. 16 x 120 femoral stem. 4. 16 PS polyethylene insert. 5. 75 tibial tray. 6. 5 mm medial and lateral tibial augments. 7. 14 x 120 tibial stem. 8. 31 oval patella. 9. Biomet bone cement. Electronically Signed by: Christopher Yang M.D. 02/19/2022 08:12 A Christopher Yang M.D. Date Dict: 02/17/2022/07:28 Ricky/Christopher Yang M.D. Date Trans: 02/17/2022 01:02 P/laisha [id number] cc: Christopher Velazquez M.D. [address] [place] [id number] Normal [facility] BASIC METABOLIC PANELon 04-2 Calcium [Mass/Vol] 8.1 mg/dL Low 8.6-10.3 [facility] Comment on above: Order Comment: No: D o not add to previous draw Performed By: #### 3 3303 #### [facility] [address] [place] [address], [place] Chloride [Moles/Vol] 101 mmol/L Normal 98-107 [facility] Comment on above: Order Comment: No: D o not add to previous draw Performed By: #### 3 5158 #### [facility] [address] [place] [address], [place] CO2 [Moles/Vol] 27 mmol/L Normal 21-31 [facility] Comment on above: Order Comment: No: D o not add to previous draw Performed By: #### 3 1258 #### [facility] [address] [place] [address], [place] Creatinine [Mass/Vol] 0.68 mg/dL Low 0.70-1.30 [facility] Comment on above: Order Comment: No: D o not add to previous draw Performed By: #### 3 1595 #### [facility] [address] [place] [address], [place] GFR/1.73 sq M.predicted among blacks MDRD (S/P/Bld) [Vol rate/Area] mL/min/{1.73_m2} Normal >60 [facility] Comment on above: Order Comment: No: D o not add to previous draw Performed By: #### 3 1595 #### [facility] [address] [place] [address], [place] GFR/1.73 sq M.predicted among non-blacks MDRD (S/P/Bld) [Vol rate/Area] mL/min/{1.73_m2} Normal >60 [facility] Comment on above: Order Comment: No: D o not add to previous draw Performed By: #### 3 1595 #### [facility] [address] [place] [address], [place] Glucose [Mass/Vol] 124 mg/dL High 70-100 [facility] Comment on above: Order Comment: No: D o not add to previous draw Performed By: #### 3 1595 #### [facility] [address] [place] [address], [place] Potassium [Moles/Vol] 3.3 mmol/L Low 3.5-5.1 [facility] Comment on above: Order Comment: No: D o not add to previous draw Performed By: #### 3 1595 #### [facility] [address] [place] [address], [place] Sodium [Moles/Vol] 136 mmol/L Normal 136-145 [facility] Comment on above: Order Comment: No: D o not add to previous draw Performed By: #### 3 1595 #### [facility] [address] [place] [address], [place] Urea nitrogen [Mass/Vol] 11 mg/dL Normal 7-25 [facility] Comment on above: Order Comment: No: D o not add to previous draw Performed By: #### 3 1595 #### [facility] [address] [place] [address], [place] CBC W/DIFFon 02-16-2022 ABS IMM GRANS 0.1 10*3/uL Normal 0.0-0.2 [facility] Comment on above: Order Comment: No: D o not add to previous draw Performed By: #### 3 1595 #### [facility] [address] [place] [address], [place] ABS NEUTROPHILS 11.2 10*3/uL High 1.6-7.6 [facility] Comment on above: Order Comment: No: D o not add to previous draw Performed By: #### 3 1595 #### [facility] [address] [place] [address], [place] Basophils (Bld) [#/Vol] 0.0 10*3/uL Normal 0.0-0.2 [facility] Comment on above: Order Comment: No: D o not add to previous draw Performed By: #### 3 1595 #### [facility] [address] [place] [address], [place] Basophils/100 WBC (Bld) 0.1 % Normal 0.0-1.0 T he [facility] Comment on above: Order Comment: No: D o not add to previous draw Performed By: #### 3 1595 #### [facility] [address] [place] [address], [place] Eosinophils (Bld) [#/Vol] 0.0 10*3/uL Normal 0.0-0.5 [facility] Comment on above: Order Comment: No: D o not add to previous draw Performed By: #### 3 1595 #### [facility] [address] [facility] [place] [address], [place] Eosinophils/100 WBC (Bld) 0.0 % Normal 0.0-6.0 [facility] Comment on above: Order Comment: No: D o not add to previous draw Performed By: #### 3 1595 #### [facility] [address] [facility]. [address] Erythrocyte distribution width (RBC) [Ratio] 15.9 % High 11.5-15.0 [facility] Comment on above: Order Comment: No: D o not add to previous draw Performed By: #### 3 1595 #### [facility] [address] [facility] Hematocrit (Bld) [Volume fraction] 34.9 % Low 39.0-50.0 [facility] Comment on above: Order Comment: No: D o not add to previous draw Performed By: #### 3 1595 #### [facility] [address] [facility]. [address] Hemoglobin (Bld) [Mass/Vol] 12.0 g/dL Low 13.0-17.0 [facility] Comment on above: Order Comment: No: D o not add to previous draw Performed By: #### 3 1595 #### [facility] [address] [place] [address], [place] IMMATURE GRANS 0.5 % Normal 0.0-1.0 [facility] Comment on above: Order Comment: No: D o not add to previous draw Performed By: #### 3 1595 #### [facility] [address] [place] [address], [place] Lymphocytes (Bld) [#/Vol] 0.8 10*3/uL Low 1.2-4.0 [facility] Comment on above: Order Comment: No: D o not add to previous draw Performed By: #### 3 1595 #### [facility] [address] [place] [address], [place] Lymphocytes/100 WBC (Bld) 6.4 % Low 20.0-45.0 [facility] Comment on above: Order Comment: No: D o not add to previous draw Performed By: #### 3 1595 #### [facility] [address] [place] [address], [place] MCH (RBC) [Entitic mass] 31.9 pg Normal 27.0-33.0 [facility] Comment on above: Order Comment: No: D o not add to previous draw Performed By: #### 3 1595 #### [facility] [address] [place] [address], [place] MCHC (RBC) [Mass/Vol] 34.4 g/dL Normal 32.0-35.0 [facility] Comment on above: Order Comment: No: D o not add to previous draw Performed By: #### 3 1595 #### [facility] [address] [place] [id number], [place] MCV (RBC) [Entitic vol] 92.8 fL Normal 82.0-98.0 T he [facility] Comment on above: Order Comment: No: D o not add to previous draw Performed By: #### 3 1595 #### [facility] [address] [place] [address], [place] Monocytes (Bld) [#/Vol] 0.8 10*3/uL Normal 0.1-1.0 [facility] Comment on above: Order Comment: No: D o not add to previous draw Performed By: #### 3 1595 #### [facility] [address] [place] [id number], [place] MONOS 5.9 % Normal 5.0-12.0 [facility] Comment on above: Order Comment: No: D o not add to previous draw Performed By: #### 3 1595 #### [facility] [address] [place] [address], [place] Neutrophils/100 WBC (Bld) 87.1 % High 40.0-72.0 [facility] Comment on above: Order Comment: No: D o not add to previous draw Performed By: #### 3 1595 #### [facility] [address] [place] [address], [place] Nucleated RBC/100 WBC (Bld) [Ratio] 0 % Normal 0-0 [facility] Comment on above: Order Comment: No: D o not add to previous draw Performed By: #### 3 1595 #### [facility] [address] [place] [address], [place] PLAT CNT 250 10*3/uL Normal 150-400 [facility] Comment on above: Order Comment: No: D o not add to previous draw Performed By: #### 3 1595 #### [facility] [address] [place] [address], [place] RBC (Bld) [#/Vol] 3.76 10*6/uL Low 4.20-5.70 [facility] Comment on above: Order Comment: No: D o not add to previous draw Performed By: #### 3 1595 #### [facility] [address] [place] [address], [place] WBC (Bld) [#/Vol] 12.88 10*3/uL High 4.00-10.60 [facility] Comment on above: Order Comment: No: D o not add to previous draw Performed By: #### 3 1595 #### [facility] [address] [place] [address], [place] PROTHROMBIN TIMEon 2 INR Coag (PPP) [Relative time] 1.20 {INR} High 0.91-1.16 [facility] Comment on above: Order Comment: No: D o not add to previous draw Result Comment: ACCC P RECOMMENDED INR FOR WARFARIN THERAPY ------- CONDITION INR PROPHYLAXIS OF VENOUS THROMBOSIS 2-3 (HIGH-RISK SURGERY) TREATMENT OF VENOUS THROMBOSIS 2-3 TREATMENT OF PULMONARY EMBOLISM 2-3 PREVENTION OF SYSTEMIC EMBOLISM: 2-3 ACUTE MYOCARDIAL INFARCTION TISSUE HEART VALVES VALVULAR HEART DISEASE ATRIAL FIBRILLATION RECURRENT SYSTEMIC EMBOLISM MECHANICAL HEART VALVE 2.5-3.5 FROM: ORAL ANTICOAGULANTS. MECHANISM OF ACTION, CLINICAL EFFECTIVENESS, AND OPTIMAL THERAPEUTIC RANGE. CHEST 1995;108:231S-246S. Performed By: #### 3 1595 #### [facility] [address] PT Coag (PPP) [Time] 15.2 s High 12.3-14.8 [facility] Comment on above: Order Comment: No: D o not add to previous draw Result Comment: ALL RESULTS MUST BE INTERPRETED WITH RESPECT TO BLOOD DRAWING ARTIFACT OR DILUTION ERROR OF ANTICOAGULANT AT THE TIME OF SAMPLING. Performed By: #### 3 1595 #### [facility] [address] *ANAEROBIC CULTUREon 022 *ANAEROBIC CULTURE Clinical Report: (D) Specimen/Source: TISSUE/INTRAOP SPEC Collected: 02/15/2022 10:06 Status: Final Last Updated: 02/20/2022 09:09 (1) 3. Right Medial Lateral Synovium CULT RES (Final) No Anaerobes Isolated 5 Days Normal [facility] Comment on above: Order Comment: 3. Ri ght Medial Lateral Synovium Performed By: #### 3 0312 #### [facility] [address] *ANAEROBIC CULTURE Clinical Report: (D) Specimen/Source: FLUID/INTRAOP SPEC Collected: 02/15/2022 10:06 Status: Final Last Updated: 02/20/2022 09:09 (1) 1. Right Knee Joint Fluid CULT RES (Final) No Anaerobes Isolated 5 Days Normal [facility] Comment on above: Order Comment: 1. Ri ght Knee Joint Fluid Performed By: #### 3 0312 #### [facility] [address] [place], [place] [id number] [place] [address] *ANAEROBIC CULTURE Clinical Report: (D) Specimen/Source: TISSUE/INTRAOP SPEC Collected: 02/15/2022 10:06 Status: Final Last Updated: 02/20/2022 09:09 (1) 2. Right Knee Medial Synovium CULT RES (Final) No Anaerobes Isolated 5 Days Normal [facility] Comment on above: Order Comment: 2. Ri ght Knee Medial Synovium Performed By: #### 3 1595 #### [facility] [address] [place], [place] [id number] [place] [address] *BODY FLUID CULTUREon 2021 *BODY FLUID CULTURE Clinical Report: (D) Specimen/Source: FLUID/INTRAOP SPEC Collected: 02/15/2022 10:06 Status: Final Last Updated: 02/20/2022 07:33 (1) 1. Right Knee Joint Fluid GRAM (Final) Moderate Polys No Bacteria Seen CULT RES (Final) No Growth Day 5 Normal [facility] Comment on above: Order Comment: 1. Ri ght Knee Joint Fluid Performed By: #### 3 1595 #### [facility] [address] [place] [address], [place] *TISSUE CULTUREon 02-15-2022 *TISSUE CULTURE Clinical Report: (D) Specimen/Source: TISSUE/INTRAOP SPEC Collected: 02/15/2022 10:06 Status: Final Last Updated: 02/20/2022 07:33 (1) 3. Right Medial Lateral Synovium GRAM (Final) Rare Polys No Bacteria Seen CULT RES (Final) No Growth Day 5 Normal [facility] Comment on above: Order Comment: 3. Ri ght Medial Lateral Synovium Performed By: #### 3 0338 #### [facility] [address] [facility]. [address] *TISSUE CULTURE Clinical Report: (D) Specimen/Source: TISSUE/INTRAOP SPEC Collected: 02/15/2022 10:06 Status: Final Last Updated: 02/20/2022 07:34 (1) 2. Right Knee Medial Synovium GRAM (Final) Moderate Polys No Bacteria Seen CULT RES (Final) No Growth Day 5 Normal [facility] Comment on above: Order Comment: 2. Ri ght Knee Medial Synovium Performed By: #### 3 0338 #### [facility] [address] [facility]. [address] APTTon 02-15-2022 aPTT Coag (Bld) [Time] 29.7 s Normal 25.0-35.0 Th e [facility] Comment on above: Order Comment: No: D o not add to previous draw Result Comment: ALL RESULTS MUST BE INTERPRETED WITH RESPECT TO BLOOD DRAWING ARTIFACT OR DILUTION ERROR OF ANTICOAGULANT AT THE TIME OF SAMPLING. THE APTT SHOULD NOT BE USED TO MONITOR UNFRACTIONATED HEPARIN THERAPY, THIS LABORATORY NO LONGER HAS AN ESTABLISHED THERAPEUTIC RANGE BASED ON THE APTT. IT IS RECOMMENDED THAT THE UFH - HEPARIN ASSAY (ANTI-XA ACTIVITY) BE USED FOR THIS PURPOSE. Performed By: #### 5 7307, 47787 #### [facility] [address] [place] [address], [place] POC GLUCOSE LABon 02-15-2022 Glucose [Mass/Vol] 124 mg/dL High 70-100 [facility] Comment on above: Performed By: #### 8 [id number] #### [facility] [address] [place] [address], [place] Glucose [Mass/Vol] 97 mg/dL Normal 70-100 [facility] Comment on above: Performed By: #### 3 1595 #### [facility] [address] [place] [address], [place] PORTABLE KNEE RIGHT 2 VWSon 02-15-2022 PORTABLE KNEE RIGHT 2 S [facility] Department of Radiology [address] [place] [address] Patient Name: INDIO COLLADO : 1955 Sex: M Age: Race: White Pt. Location: OUTP Patient Status: I Ordered Date: 02/15/2022 11:10:00 AM Completed Date: 02/15/2022 12:47 PM Requesting Provider: LONNY CASTORENA Attending Provider: CHRISTOPHER YANG Report Copy To: Signs & Symptoms: Post OP History: Comments: Hardware Evaluation, in PACU Exam: PORTABLE KNEE RIGHT 2 [facility] PORTABLE KNEE RIGHT 2 S 02/15/2022 12:47 PM CLINICAL INDICATIONS: Post OP TECHNOLOGIST COMMENTS: post op right knee QUESTION FOR THE RADIOLOGIST: Hardware Evaluation, in PACU PROTOCOL: AP(PA) and Lateral views were obtained. COMPARISON: 12/08/2021 FINDINGS: There has been revision of the right knee arthroplasty since previous examination longstem components now demonstrated. No complicating processes are seen. Subcutaneous and is in the subcutaneous postoperative in nature. 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 Transcribed by: [id number], User Resident: Electronically Signed by: INDIO PRESLEY @ 02/15/2022 12:57 PM Normal [facility] Comment on above: Order Comment: Hardw are Evaluation, in PACU PROTHROMBIN TIMEon INR Coag (PPP) [Relative time] 1.14 {INR} Normal 0.91-1.16 [facility] Comment on above: Order Comment: No: D o not add to previous draw Result Comment: ACCC P RECOMMENDED INR FOR WARFARIN THERAPY ------- CONDITION INR PROPHYLAXIS OF VENOUS THROMBOSIS 2-3 (HIGH-RISK SURGERY) TREATMENT OF VENOUS THROMBOSIS 2-3 TREATMENT OF PULMONARY EMBOLISM 2-3 PREVENTION OF SYSTEMIC EMBOLISM: 2-3 ACUTE MYOCARDIAL INFARCTION TISSUE HEART VALVES VALVULAR HEART DISEASE ATRIAL FIBRILLATION RECURRENT SYSTEMIC EMBOLISM MECHANICAL HEART VALVE 2.5-3.5 FROM: ORAL ANTICOAGULANTS. MECHANISM OF ACTION, CLINICAL EFFECTIVENESS, AND OPTIMAL THERAPEUTIC RANGE. CHEST 1995;108:231S-246S. Performed By: #### 5 7307, 84921 #### [facility] [address] [facility]. [address] PT Coag (PPP) [Time] 14.6 s Normal 12.3-14.8 [facility] Comment on above: Order Comment: No: D o not add to previous draw Result Comment: ALL RESULTS MUST BE INTERPRETED WITH RESPECT TO BLOOD DRAWING ARTIFACT OR DILUTION ERROR OF ANTICOAGULANT AT THE TIME OF SAMPLING. Performed By: #### 5 7307, 19491 #### [facility] [address] [facility]. [address] Complete Blood Count with Au to Diffon 02-05-2022 Basophils (Bld) [#/Vol] 0.06 10*3/uL Normal 0.00-0.20 [facility] Comment on above: Performed By: #### T SH, CMP, LIPD #### [facility] [address] [place], [place] [id number] Basophils/100 WBC (Bld) 0.9 % Normal N [facility] Comment on above: Performed By: #### T SH, CMP, LIPD #### [facility] [address] [place], [place] [id number] Eosinophils (Bld) [#/Vol] 0.10 10*3/uL Normal 0.02-0.50 [facility] Specialist Comment on above: Performed By: #### T SH, CMP, LIPD #### [facility] [address] [place], [place] [id number] Eosinophils/100 WBC (Bld) 1.5 % Normal [facility] Comment on above: Performed By: #### T SH, CMP, LIPD #### [facility] [address] [place], [place] [id number] Erythrocyte distribution width (RBC) [Ratio] 17.3 % High 11.0-15.0 [facility] Comment on above: Performed By: #### T SH, CMP, LIPD #### [facility] [address] [place], [place] [id number] Hematocrit (Bld) [Volume fraction] 40.5 % Normal 38.5-50.0 [facility] Specialist Comment on above: Performed By: #### T SH, CMP, LIPD #### [facility] [address] [place], [place] [id number] Hemoglobin (Bld) [Mass/Vol] 13.5 g/dL Normal 13.0-17.1 [facility] Comment on above: Performed By: #### T SH, CMP, LIPD #### [facility] [address] [place], [place] [id number] Lymphocytes (Bld) [#/Vol] 1.4 10*3/uL Normal 0.9-3.9 [facility] Specialist Comment on above: Performed By: #### T SH, CMP, LIPD #### [facility] [address] [place], [place] [id number] Lymphocytes/100 WBC (Bld) 21.1 % Normal [facility] Specialist Comment on above: Performed By: #### T SH, CMP, LIPD #### [facility] [address] [facility] [place] [id number] MCH (RBC) [Entitic mass] 31.3 pg Normal 27.0-33.0 [facility] Comment on above: Performed By: #### T SH, CMP, LIPD #### [facility] [address] [facility] [place] [id number] MCHC (RBC) [Mass/Vol] 33.3 g/dL Normal 32.0-36.[address] [facility] Comment on above: Performed By: #### T SH, CMP, LIPD #### [facility] [address] [facility] [place] [id number] MCV (RBC) [Entitic vol] 94 fL Normal 80-[address] [facility] Comment on above: Performed By: #### T SH, CMP, LIPD #### [facility] [address] [place], [place] [id number] Monocytes (Bld) [#/Vol] 0.4 10*3/uL Normal 0.2-0.9 [facility] Comment on above: Performed By: #### T SH, CMP, LIPD #### [facility] [address] [place], [place] [id number] Monocytes/100 WBC (Bld) 6.3 % Normal N [facility] Comment on above: Performed By: #### T SH, CMP, LIPD #### [facility] [address] [place], [place] [id number] Neutrophils (Bld) [#/Vol] 4.6 10*3/uL Normal 1.5-7.8 [facility] Comment on above: Performed By: #### T SH, CMP, LIPD #### [facility] [address] [place], [place] [id number] Neutrophils/100 WBC (Bld) 70.0 % Normal [facility] Comment on above: Performed By: #### T SH, CMP, LIPD #### [facility] [address] [facility] [place] [id number] Platelet mean volume (Bld) [Entitic vol] 10.10 fL Normal 7.50-12.50 [facility] Specialist Comment on above: Performed By: #### T SH, CMP, LIPD #### [facility] [address] [place], [place] [id number] Platelets (Bld) [#/Vol] 280 10*3/uL Normal 140-400 [facility] Specialist Comment on above: Performed By: #### T SH, CMP, LIPD #### [facility] [address] [place], [place] [id number] RBC (Bld) [#/Vol] 4.32 10*6/uL Normal 4.20-5.80 [facility] Specialist Comment on above: Performed By: #### T SH, CMP, LIPD #### [facility] [address] [place], [place] [id number] RDW-SD 60.6 fL High 37.0-50.0 [facility] Specialist Comment on above: Performed By: #### T SH, CMP, LIPD #### [facility] [address] [place], [place] [id number] WBC (Bld) [#/Vol] 6.6 10*3/uL Normal 3.8-11.0 [facility] Comment on above: Performed By: #### T SH, CMP, LIPD #### [facility] [address] [place], [place] [id number] Comprehensive Metabolic Pane [facility] 02-05-2022 Albumin [Mass/Vol] 3.3 g/dL Low 3.6-5.1 [facility] Comment on above: Performed By: #### T SH, CMP, LIPD #### [facility] [address] [place], [place] [id number] Albumin/Globulin [Mass ratio] 1.4 {ratio} Normal 1.0-2.5 [facility] Special[facility] Comment on above: Performed By: #### T SH, CMP, LIPD #### [facility] [address] [place], [place] [id number] ALP [Catalytic activity/Vol] 102 U/L Normal 40-129 [facility] Comment on above: Performed By: #### T SH, CMP, LIPD #### [facility] [address] [place], [place] [id number] ALT [Catalytic activity/Vol] 11 U/L Normal 9-46 [facility] Comment on above: Result Comment: 09/23 Female reference range changed. Performed By: #### T SH, CMP, LIPD #### [facility] [address] [facility] [place] [id number] Anion gap [Moles/Vol] 16 mmol/L Normal 12-[address] [facility] Comment on above: Result Comment: Effe ctive 10/29/2019 reference range changed. Performed By: #### T SH, CMP, LIPD #### [facility] [address] [facility] [place] [id number] AST [Catalytic activity/Vol] 18 U/L Normal 10-40 [facility] Comment on above: Performed By: #### T SH, CMP, LIPD #### [facility] [address] [facility] [place] [id number] Bilirubin [Mass/Vol] 1.96 mg/dL High 0.30-1.20 [facility] Comment on above: Performed By: #### T SH, CMP, LIPD #### [facility] [address] [facility] [place] [id number] BUN/CREA 11 Ratio Normal 6-22 [facility] Comment on above: Performed By: #### T SH, CMP, LIPD #### [facility] [address] [facility] [place] [id number] Calcium [Mass/Vol] 8.7 mg/dL Normal 8.6-10.2 [facility] Comment on above: Performed By: #### T SH, CMP, LIPD #### [facility] [address] [facility] [place] [id number] Chloride [Moles/Vol] 105 mmol/L Normal 98-107 [facility] Comment on above: Performed By: #### T SH, CMP, LIPD #### [facility] [address] [facility] [place] [id number] CO2 [Moles/Vol] 23 mmol/L Normal 20-31 [facility] Specialist Comment on above: Performed By: #### T SH, CMP, LIPD #### [facility] [address] [facility] [place] [id number] Creatinine [Mass/Vol] 0.7 mg/dL Normal 0.7-1.4 [facility] Comment on above: Performed By: #### T SH, CMP, LIPD #### [facility] [address] [place], [place] [id number] eGFRAA 139 mL/min/1.73m2 Normal >60 [facility] Comment on above: Performed By: #### T SH, CMP, LIPD #### [facility] [address] [place], [place] [id number] eGFRNAA 115 mL/min/1.73m2 Normal >60 [facility] Comment on above: Performed By: #### T NELY, CMP, LIPD #### [facility] [address] [place], [place] [id number] Globulin (S) [Mass/Vol] 2.3 g/dL Normal 1.9-3.7 N [facility] Comment on above: Performed By: #### T SH, CMP, LIPD #### [facility] [address] [place], [place] [id number] Glucose [Mass/Vol] 94 mg/dL Normal 65-99 [facility] [place] [facility] Comment on above: Result Comment: For FASTING Glucose --- ADA reference ranges: Normal 65-99 mg/dl Prediabetes 100-125 Diabetes >/= 126 Performed By: #### T SH, CMP, LIPD #### [facility] [address] [place], [place] [id number] Potassium [Moles/Vol] 3.7 mmol/L Normal 3.5-5.5 [facility] Comment on above: Performed By: #### T SH, CMP, LIPD #### [facility] [address] [place], [place] [id number] Protein [Mass/Vol] 5.6 g/dL Low 6.1-8.1 [facility] [place] [facility] Comment on above: Performed By: #### T SH, CMP, LIPD #### [facility] [address] [place], [place] [id number] Sodium [Moles/Vol] 140 mmol/L Normal 135-146 [facility] [facility] [place] [facility] Comment on above: Performed By: #### T SH, CMP, LIPD #### [facility] [address] [place], [place] [id number] Urea nitrogen [Mass/Vol] 7 mg/dL Normal 7-25 [facility] Comment on above: Performed By: #### T SH, CMP, LIPD #### [facility] [address] [place], [place] [id number] Ferritinon 02-05-2022 FERR 128.6 ng/mL Normal 30.0-400.0 [facility] Specialist Comment on above: Performed By: #### T SH, CMP, LIPD #### [facility] [address] [place], [place] [id number] Iron Profileon 02-05-2022 %FESAT 18 % Normal 15-60 [facility] Specialist Comment on above: Performed By: #### T NELY, CMP, LIPD #### [facility] [address] [place], [place] [id number] FE 45 ug/dL Low 50-180 [facility] Comment on above: Result Comment: Refe rence range change 09/09/2017. Prior reference range F 37-145 ug/dL, M 59-158 ug/dL. Performed By: #### T NELY, CMP, LIPD #### [facility] [address] [place], [place] [id number] TIBC 247 ug/dL Low 250-425 [facility] Specialist Comment on above: Performed By: #### T SH, CMP, LIPD #### [facility] [address] [place], [place] [id number] UIBC 202 ug/dL Normal 112-347 [facility] Specialist Comment on above: Performed By: #### T SH, CMP, LIPD #### [facility] [address] [place], [place] [id number] Magnesiumon 02-05-2022 Magnesium [Mass/Vol] 1.8 mg/dL Normal 1.5-2.3 [facility] Specialist Comment on above: Performed By: #### T SH, CMP, LIPD #### [facility] [address] [place], [place] [id number] Phosphoruson 02-05-2022 Phosphate [Mass/Vol] 3.2 mg/dL Normal 2.2-4.4 [facility] Comment on above: Performed By: #### T RAMONA MCKAY, MIA #### [facility] [address] [place], [place] [id number] Q - VITAMIN B1 (THIAMINE),BL OODon 02-05-2022 VITAMIN B1 (THIAMINE), BLOOD, LC/MS/MS 74 nmol/L Low 78-185 [facility] Comment on above: Order Comment: [facility] performed at: [facility], [facility], [address], [place], [place], , Dye Tub Tender: Alexis Abbott M.D.,PhDQuest Collection Date/Time: Results Received Date/Time: [id number] Reported Date/Time: Result Comment: Yolande min supplementation within 24 hours prior to blood draw may affect the accuracy of the results. This test was developed and its analytical performance characteristics have been determined by [facility] [place], [place]. It has not been cleared or approved by the U.S. Food and Drug Administration. This assay has been validated pursuant to the CLIA regulations and is used for clinical purposes. Performed By: #### T RAMONA MCKAY LIPD #### [facility] [address] [place], [place] [id number] Q - VITAMIN D 25-OH Total IA on 02-05-2022 VIT D 25 OH 18 ng/mL Low 30-100 [facility] Specialist Comment on above: Order Comment: [facility] performed at: [place], [facility], [address] [place] [address], [address] [place] [address], [id number], Dye Tub Tender: Juan Daniel Cool MDQuest Collection Date/Time: [id number] Results Received Date/Time: [id number] Reported Date/Time: Result Comment: Yolande min D Status 25-OH Vitamin D: Deficiency: <20 ng/mL Insufficiency: 20 - 29 ng/mL Optimal: > or = 30 ng/mL For 25-OH Vitamin D testing on patients on D2-supplementation and patients for whom quantitation of D2 and D3 fractions is required, the QuestAssureD(TM) 25-OH VIT D, (D2,D3), LC/MS/MS is recommended: order code 74783 (patients >2yrs). See Note 1 Note 1 For additional information, please refer to http://education.[email or web address]/faq/QFP200 (This link is being provided for informational/ educational purposes only.) Performed By: #### T RAMONA MCKAY, LIPD #### [facility] [address] [place], [place] [id number] Vitamin B12/Folateon 022 Cobalamin (Vitamin B12) [Mass/Vol] 344 pg/mL Normal 211-946 [facility] Specialist Comment on above: Result Comment: Spec imen is hemolyzed. Results may be affected. Performed By: #### T NELY, RAMONA, LIPD #### [facility] [address] [place], [place] [id number] FOL 12.7 ng/mL Normal >4.7 [facility] Specialist Comment on above: Result Comment: Refe rence range change 09/09/2017. Prior reference range F 4.8-37.3 ng/mL, M 4.5-32.2 ng/mL. Performed By: #### T RAMONA MCKAY, LIPD #### [facility] [address] [place], [place] [id number] CT LOWER EXTREMITY WO CONTRA ST RIGHTon 01-02-2022 CT LOWER EXTREMITY WO CONTRAST RIGHT [facility] Department of Radiology [address] [place] [id number] Patient Name: INDIO COLLADO : 1955 Sex: M Age: Race: White Pt. 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 TECHNIQUE: Multidetector CT axial slices of the right lower extremity without IV contrast. Multiplanar reformats were performed and viewed on a separate workstation and reviewed to further define anatomy and possible pathology. All CT scans at this facility use dose modulation, iterative reconstruction, and/or weight based dosing when appropriate to reduce radiation dose to as low as reasonably achievable COMPARISON: Knee radiograph 12/08/2021 FINDINGS: Bones: No acute fracture or dislocation identified. Decreased bone mineral density with some linear resorption noted inferior to the tibial plateau component more prominent at the medial tibial plateau. Subchondral cyst at the fibular head. There are no metal fragments to suggest particle disease may be degenerative. Minimal heterotopic ossification noted posterior and superior to the femoral prosthetic component. Resurfaced patella is largely unremarkable appearing. Degenerative changes are similar to prior imaging. Soft tissue: Moderate suprapatellar effusion. Vascular calcifications within the thigh and leg. Small amount of fluid noted within the soft tissues of and leg. Prosthetic hardware: Lucency identified along the interface between the tibial tray and the underlying tibial tray particularly seen medially. This raises concern for loosening or infection. The femoral prosthetic component is unremarkable appearing. Polyethylene joint spacer appears some asymmetrical in its configuration without any evidence of obvious erosion. IMPRESSION: * No acute osseous abnormality. Concerning for evidence of tibial tray loosening. * Moderate suprapatellar effusion. * Degenerative changes of the knee joint as described above. Cyst formation at the proximal tib-fib articulation could be seen in particle disease but these polyethylene spacer appears uniform in width without erosive wear. Approved by:Eva Ken01/04/2022 8:11 AM. I, Michael Grant,have reviewed the image(s) and agree with the findings in this report. Electronically signed: Michael Grant. Transcribed by: [email or web address], User Resident: EVA RAMIREZ Electronically Signed by: MICHAEL GRANT @ 01/04/2022 09:38 AM I personally read this/these film(s) with this resident Normal [facility] Comment on above: Order Comment: right knee *MRSA/MSSA DNA NASALon 12-08 *MRSA/MSSA DNA NASAL Clinical Report: (D ) Specimen: NASAL SWAB Collected: 12/08/2021 14:59 Status: Final Last Updated: 12/08/2021 21:27 MSSA DNA (Final) Negative MRSA DNA (Final) Methicillin Resistant Staphylococcus aureus DNA Detected Normal [facility] Comment on above: Performed By: #### 3 1595 #### [address] C REACTIVE PROTEINon 022 CRP [Mass/Vol] 7.2 mg/L High 0.0-7.0 [facility] Comment on above: Performed By: #### 3 1595 #### [facility] [address] KNEE RIGHT 3 VWSon 2 KNEE RIGHT 3 S [facility] Department of Radiology [address] [place] [id number] Patient Name: INDIO COLLADO : 1955 Sex: M Age: Race: Other Pt. Location: Patient Status: D Ordered Date: 12/08/2021 1:45:00 PM Completed Date: 12/08/2021 01:50 PM Requesting Provider: CHRISTOPHER YANG Attending Provider: Report Copy To: Signs & Symptoms: Z96.659 Presence of unspecified artificial knee joint I10 History: Dora Comments: Evaluate Exam: KNEE RIGHT 3 VWS KNEE RIGHT 3 VWS HISTORY: Recent fall, knee pain. COMPARISON: None. IMPRESSION: 1. No fracture or dislocation. Small to moderate knee joint effusion. 2. No hardware complication. Vascular calcifications. Electronically signed: Kehinde Hahn. Transcribed by: [email or web address], User Resident: Electronically Signed by: KEHINDE HAHN @ 12/09/2021 02:13 PM Normal [facility] Comment on above: Order Comment: Evalu ate Q - MICROALBUMIN,RANDOM URIN E (W/CREAT)on 11-17-2021 Albumin DL <= 20 mg/L (U) [Mass/Vol] 5.3 mg/dL Normal See Note: [facility] Comment on above: Order Comment: [facility] Testing performed at: [facility], [facility], [address] , [address] [facility], [place], [address], Dye Tub Tender: Juan Daniel Cool MD [facility] Collection Date/Time: [id number] [facility] Results Received Date/Time: [facility] Reported Date/Time: Result Comment: Refe rence Range: Reference Range Not established Performed By: #### 6 517X #### [facility] Default [address] [place] [address] Creatinine (U) [Mass/Vol] 173 mg/dL Normal 20-320 [facility] Comment on above: Order Comment: [facility] Testing performed at: [facility], [facility], [address] , [address] [place], [place], [address] [place] [address], Dye Tub Tender: Juan Daniel Cool MD [facility] Collection Date/Time: [facility] Results Received Date/Time: [facility] Reported Date/Time: Performed By: #### 6 517X #### [facility] Default [address] [place] [address] MICROALBUMIN/CREATININE RATIO, RANDOM URINE 31 mcg/mg creat High <30 [facility] Comment on above: Order Comment: [facility] Testing performed at: [facility], [facility], [address] , [address] [place] [address], [address] [place] [address], Dye Tub Tender: Juan Daniel Cool MD [facility] Collection Date/Time: [facility] Results Received Date/Time: [facility] Reported Date/Time: Result Comment: The ADA defines abnormalities in albumin excretion as follows: Albuminuria Category Result (mcg/mg creatinine) Normal to Mildly increased <30 Moderately increased 30-299 Severely increased > OR = 300 The ADA recommends that at least two of three specimens collected within a 3-6 month period be abnormal before considering a patient to be within a diagnostic category. Performed By: #### 6 517X #### [facility] [address] [place] [address] RESPIRATORY PANEL PLUSon Adenovirus Not detected Normal NOT DETECTED [facility] Comment on above: Performed By: #### R SPLUS ####[facility] [address] [place], [place] [address]Dr. Chris Real B. Parapertusis Not detected Normal NOT DETECTED [facility] Comment on above: Performed By: #### R SPLUS ####[facility] [address] [address]Dr. Fatoumatalan Farhan B. Pertussis Not detected Normal NOT DETECTED [facility] Comment on above: Performed By: #### R SPLUS ####[facility] [address] [place], [place] [address]Dr. Fatoumatalan Real Chlamydia Pneumoniae Not detected Normal NOT DETECTED [facility] Comment on above: Performed By: #### R SPLUS ####[facility] Z[address] [place], [place] [address]Dr. [facility] Coronavirus 229E Not detected Normal NOT DETECTED [facility] Comment on above: Performed By: #### R SPLUS ####[facility] [address] [place], [place] [address]Dr. [facility] Coronavirus HKU1 Not detected Normal NOT DETECTED [facility] Comment on above: Performed By: #### R SPLUS ####[facility] [address] [place], [place] [address]Dr. [facility] [facility] Coronavirus NL63 Not detected Normal NOT DETECTED [facility] Comment on above: Performed By: #### R SPLUS ####[facility] S[address] [place], [place] [address]Dr. [facility] Coronavirus OC43 Not detected Normal NOT DETECTED [facility] Comment on above: Performed By: #### R SPLUS ####[facility] Gw[address] [place], [place] [address]Dr. Yikinjal Real Influenza A H1 2009 Not detected Normal NOT DETECTED [facility] Comment on above: Performed By: #### R SPLUS ####[facility] V[address] [place], [place] [address]Dr. Yilan Real Influenza A H3 Not detected Normal NOT DETECTED [facility] Comment on above: Performed By: #### R SPLUS ####[facility] L[address]ls[address] [place], [place] [address]Dr. Yilan Real Influenza B Not detected Normal NOT DETECTED [facility] Comment on above: Performed By: #### R SPLUS ####[facility] Zkzud[address]vfcw[address] [place], [place] [address]Dr. Yilan Real Metapneumovirus Not detected Normal NOT DETECTED [facility] Comment on above: Performed By: #### R SPLUS ####[facility] [address] [place] [address]Dr. Yikinjal Real Mycoplas. Pneumoniae Not detected Normal NOT DETECTED [facility] Comment on above: Performed By: #### R SPLUS ####[facility] Dielq[address] [place], [place] [address]Dr. Yikinjal Real Parainfluenza 1 Not detected Normal NOT DETECTED [facility] Comment on above: Performed By: #### R SPLUS ####[facility] Aj[address]ec[address] [place], [place] [address]Dr. Yikinjal Real Parainfluenza 2 Not detected Normal NOT DETECTED [facility] Comment on above: Performed By: #### R SPLUS ####[facility] Igw[address]alw[address] [place], [place] [address]Dr. Chris Real Parainfluenza 3 Not detected Normal NOT DETECTED [facility] Comment on above: Performed By: #### R SPLUS ####[facility] X[address] [place], [place] [address]Dr. Yikinjal Real Parainfluenza 4 Not detected Normal NOT DETECTED [facility] Comment on above: Performed By: #### R SPLUS ####[facility] Od[address]fovmr[address] [place], [place] [address]Dr. Yilan Real Rhino/Enterovirus Not detected Normal NOT DETECTED [facility] Comment on above: Performed By: #### R SPLUS ####[facility] Sk[address] [place], [place] [address]Dr. Yikinjal Real RP2 Header 1 RESPIRATORY PANEL: VIRUSES Normal [facility] Comment on above: Performed By: #### R SPLUS ####[facility] Gh[address]so[address] [place], [place] [address]Dr. Yilan Real RP2 Header 2 RESPIRATORY PANEL: BACTERIA Normal [facility] Comment on above: Performed By: #### R SPLUS ####[facility] C[address] [place], [place] [address]Dr. Yilan Real RSV Not detected Normal NOT DETECTED [facility] Comment on above: Performed By: #### R SPLUS ####[facility] [address] [place], [place] [address]Md. Chris Real SARS-CoV-2 (COVID-19) RNA GAIL+probe Ql (Unsp spec) Detected Critically abnormal NOT DETECTED [facility] Comment on above: Performed By: #### R SAM ####[facility] [address] [place], [place] [address]Js. Chris Real Complete Blood Count with Au to Diffon 10-08-2021 Basophils (Bld) [#/Vol] 0.07 10*3/uL Normal 0.00-0.20 [facility] Specialist Comment on above: Performed By: #### V ITD, MG, PHOS, FERR, CBCAD, FE Prof, CMP #### [facility] [address] [place], [place] [id number] Basophils/100 WBC (Bld) 0.9 % Normal N [facility] Comment on above: Performed By: #### V ITD, MG, PHOS, FERR, CBCAD, FE Prof, CMP #### [facility] [address] [place], [place] [id number] Eosinophils (Bld) [#/Vol] 0.20 10*3/uL Normal 0.02-0.50 [facility] Specialist Comment on above: Performed By: #### V ITD, MG, PHOS, FERR, CBCAD, FE Prof, CMP #### [facility] [address] [place], [place] [id number] Eosinophils/100 WBC (Bld) 2.6 % Normal [facility] Specialist Comment on above: Performed By: #### V ITD, MG, PHOS, FERR, CBCAD, FE Prof, CMP #### [facility] [address] [place], [place] [id number] Erythrocyte distribution width (RBC) [Ratio] 15.0 % Normal 11.0-15.0 [facility] Specialist Comment on above: Performed By: #### V ITD, MG, PHOS, FERR, CBCAD, FE Prof, CMP #### [facility] [address] [place], [place] [id number] Hematocrit (Bld) [Volume fraction] 45.1 % Normal 38.5-50.0 [facility] Specialist Comment on above: Performed By: #### V ITD, MG, PHOS, FERR, CBCAD, FE Prof, CMP #### [facility] [address] [place], [place] [id number] Hemoglobin (Bld) [Mass/Vol] 14.7 g/dL Normal 13.0-17.1 [facility] Specialist Comment on above: Performed By: #### V ITD, MG, PHOS, FERR, CBCAD, FE Prof, CMP #### [facility] [address] [place], [place] [id number] Lymphocytes (Bld) [#/Vol] 1.8 10*3/uL Normal 0.9-3.9 [facility] Specialist Comment on above: Performed By: #### V ITD, MG, PHOS, FERR, CBCAD, FE Prof, CMP #### [facility] [address] [place], [place] [id number] Lymphocytes/100 WBC (Bld) 23.4 % Normal [facility] Specialist Comment on above: Performed By: #### V ITD, MG, PHOS, FERR, CBCAD, FE Prof, CMP #### [facility] [address] [place], [place] [id number] MCH (RBC) [Entitic mass] 28.1 pg Normal 27.0-33.0 [facility] Specialist Comment on above: Performed By: #### V ITD, MG, PHOS, FERR, CBCAD, FE Prof, CMP #### [facility] [address] [place], [place] [id number] MCHC (RBC) [Mass/Vol] 32.6 g/dL Normal 32.0-36.0 [facility] Specialist Comment on above: Performed By: #### V ITD, MG, PHOS, FERR, CBCAD, FE Prof, CMP #### [facility] [address] [place], [place] [id number] MCV (RBC) [Entitic vol] 86 fL Normal 80-100 N [facility] Specialist Comment on above: Performed By: #### V ITD, MG, PHOS, FERR, CBCAD, FE Prof, CMP #### [facility] [address] [place], [place] [id number] Monocytes (Bld) [#/Vol] 0.5 10*3/uL Normal 0.2-0.9 [facility] Specialist Comment on above: Performed By: #### V ITD, MG, PHOS, FERR, CBCAD, FE Prof, CMP #### [facility] [address] [place], [place] [id number] Monocytes/100 WBC (Bld) 6.7 % [facility] on above: Performed By: #### V ITD, MG, PHOS, FERR, CBCAD, FE Prof, CMP #### [facility] [address] [place], [place] [id number] Neutrophils (Bld) [#/Vol] 5.2 10*3/uL Normal 1.5-7.8 [facility] Specialist Comment on above: Performed By: #### V ITD, MG, PHOS, FERR, CBCAD, FE Prof, CMP #### [facility] [address] [place], [place] [id number] Neutrophils/100 WBC (Bld) 66.3 % Normal [facility] Comment on above: Performed By: #### V ITD, MG, PHOS, FERR, CBCAD, FE Prof, CMP #### [facility] [address] [place], [place] [id number] Platelet mean volume (Bld) [Entitic vol] 10.40 fL Normal 7.50-12.50 [facility] Specialist Comment on above: Performed By: #### V ITD, MG, PHOS, FERR, CBCAD, FE Prof, CMP #### [facility] [address] [place], [place] [id number] Platelets (Bld) [#/Vol] 302 10*3/uL Normal 140-400 [facility] Specialist Comment on above: Performed By: #### V ITD, MG, PHOS, FERR, CBCAD, FE Prof, CMP #### [facility] [address] [place], [place] [id number] RBC (Bld) [#/Vol] 5.23 10*6/uL Normal 4.20-5.80 [facility] Specialist Comment on above: Performed By: #### V ITD, MG, PHOS, FERR, CBCAD, FE Prof, CMP #### [facility] [address] [place], [place] [id number] RDW-SD 46.8 fL Normal 37.0-50.0 [facility] Comment on above: Performed By: #### V ITD, MG, PHOS, FERR, CBCAD, FE Prof, CMP #### [facility] [address] [place], [place] [id number] WBC (Bld) [#/Vol] 7.8 10*3/uL Normal 3.8-11.0 [facility] [place] [facility] Comment on above: Performed By: #### V ITD, MG, PHOS, FERR, CBCAD, FE Prof, CMP #### [facility] [address] [place], [place] [id number] [facility] 10-08-2021 Albumin [Mass/Vol] 3.7 g/dL Normal 3.6-5.1 [facility] [place] [facility] Comment on above: Performed By: #### V ITD, MG, PHOS, FERR, CBCAD, FE Prof, CMP #### [facility] [address] [place], [place] [id number] Albumin/Globulin [Mass ratio] 1.2 {ratio} Normal 1.0-2.5 [facility] Comment on above: Performed By: #### V ITD, MG, PHOS, FERR, CBCAD, FE Prof, CMP #### [facility] [address] [place], [place] [id number] ALP [Catalytic activity/Vol] 127 U/L Normal 40-129 [facility] Comment on above: Performed By: #### V ITD, MG, PHOS, FERR, CBCAD, FE Prof, CMP #### [facility] [address] [facility] [place] [id number] ALT [Catalytic activity/Vol] 21 U/L Normal 9-46 [facility] Comment on above: Result Comment: 09/23 Female reference range changed. Performed By: #### V ITD, MG, PHOS, FERR, CBCAD, FE Prof, CMP #### [facility] [address] [facility] [place] [id number] Anion gap [Moles/Vol] 20 mmol/L Normal 12-20 [facility] [place] [facility] Comment on above: Result Comment: Effe ctive 10/29/2019 reference range changed. Performed By: #### V ITD, MG, PHOS, FERR, CBCAD, FE Prof, CMP #### [facility] [address] [place], [place] [id number] AST [Catalytic activity/Vol] 25 U/L Normal 10-40 [facility] Comment on above: Performed By: #### V ITD, MG, PHOS, FERR, CBCAD, FE Prof, CMP #### [facility] [address] [place], [place] [id number] Bilirubin [Mass/Vol] 1.05 mg/dL Normal 0.30-1.20 [facility] Comment on above: Performed By: #### V ITD, MG, PHOS, FERR, CBCAD, FE Prof, CMP #### [facility] [address] [place], [place] [id number] BUN/CREA 11 Ratio Normal 6-22 [facility] Comment on above: Performed By: #### V ITD, MG, PHOS, FERR, CBCAD, FE Prof, CMP #### [facility] [address] [place], [place] [id number] Calcium [Mass/Vol] 9.7 mg/dL Normal 8.6-10.2 [facility] Comment on above: Performed By: #### V ITD, MG, PHOS, FERR, CBCAD, FE Prof, CMP #### [facility] [address] [place], [place] [id number] Chloride [Moles/Vol] 99 mmol/L Normal 98-107 [facility] Comment on above: Performed By: #### V ITD, MG, PHOS, FERR, CBCAD, FE Prof, CMP #### [facility] [address] [facility] [place] [id number] CO2 [Moles/Vol] 24 mmol/L Normal 20-31 [facility] Comment on above: Performed By: #### V ITD, MG, PHOS, FERR, CBCAD, FE Prof, CMP #### [facility] [address] [facility] [place] [id number] Creatinine [Mass/Vol] 0.9 mg/dL Normal 0.7-1.4 [facility] Specialist Comment on above: Performed By: #### V ITD, MG, PHOS, FERR, CBCAD, FE Prof, CMP #### [facility] [address] [place], [place] [id number] eGFRAA 107 mL/min/1.73m2 Normal >60 [facility] Specialist Comment on above: Performed By: #### V ITD, MG, PHOS, FERR, CBCAD, FE Prof, CMP #### [facility] [address] [place], [place] [id number] eGFRNAA 88 mL/min/1.73m2 Normal >60 [facility] Comment on above: Performed By: #### V ITD, MG, PHOS, FERR, CBCAD, FE Prof, CMP #### [facility] [address] [place], [place] [id number] Globulin (S) [Mass/Vol] 3.0 g/dL Normal 1.9-3.7 [facility] Comment on above: Performed By: #### V ITD, MG, PHOS, FERR, CBCAD, FE Prof, CMP #### [facility] [address] [place], [place] [id number] Glucose [Mass/Vol] 136 mg/dL High 65-99 Brigitte mcarthur [place] [facility] Comment on above: Result Comment: For FASTING Glucose --- ADA reference ranges: Normal 65-99 mg/dl Prediabetes 100-125 Diabetes >/= 126 Performed By: #### V ITD, MG, PHOS, FERR, CBCAD, FE Prof, CMP #### [facility] [address] [place], [place] [id number] Potassium [Moles/Vol] 3.3 mmol/L Low 3.5-5.5 [facility] Specialist Comment on above: Performed By: #### V ITD, MG, PHOS, FERR, CBCAD, FE Prof, CMP #### [facility] [address] [place], [place] [id number] Protein [Mass/Vol] 6.7 g/dL Normal 6.1-8.1 Brigitte mcarthur [place] [facility] Comment on above: Performed By: #### V ITD, MG, PHOS, FERR, CBCAD, FE Prof, CMP #### [facility] [address] [place], [place] [id number] Sodium [Moles/Vol] 140 mmol/L Normal 135-146 [facility] Comment on above: Performed By: #### V ITD, MG, PHOS, FERR, CBCAD, FE Prof, CMP #### [facility] [address] [place], [place] [id number] Urea nitrogen [Mass/Vol] 10 mg/dL Normal 7-25 [facility] Comment on above: Performed By: #### V ITD, MG, PHOS, FERR, CBCAD, FE Prof, CMP #### [facility] [address] [place], [place] [id number] Ferritinon 10-08-2021 FERR 127.3 ng/mL Normal 30.0-400.0 [facility] Comment on above: Performed By: #### V ITD, MG, PHOS, FERR, CBCAD, FE Prof, CMP #### [facility] [address] [place], [place] [id number] Iron Profileon 10-08-2021 %FESAT 13 % Low 15-60 [facility] Comment on above: Performed By: #### V ITD, MG, PHOS, FERR, CBCAD, FE Prof, CMP #### [facility] [address] [place], [place] [id number] FE 41 ug/dL Low 50-180 [facility] Comment on above: Result Comment: Refe rence range change 09/09/2017. Prior reference range F 37-145 ug/dL, M 59-158 ug/dL. Performed By: #### V ITD, MG, PHOS, FERR, CBCAD, FE Prof, CMP #### [facility] [address] [place], [place] [id number] TIBC 318 ug/dL Normal 250-425 [facility] Comment on above: Performed By: #### V ITD, MG, PHOS, FERR, CBCAD, FE Prof, CMP #### [facility] [address] [place], [place] [id number] UIBC 277 ug/dL Normal 112-347 [facility] Comment on above: Performed By: #### V ITD, MG, PHOS, FERR, CBCAD, FE Prof, CMP #### [facility] [address] [place], [place] [id number] Magnesiumon 10-08-2021 Magnesium [Mass/Vol] 1.9 mg/dL Normal 1.5-2.3 [facility] Comment on above: Performed By: #### V ITD, MG, PHOS, FERR, CBCAD, FE Prof, CMP #### [facility] [address] [place], [place] [id number] Phosphoruson 10-08-2021 Phosphate [Mass/Vol] 2.4 mg/dL Normal 2.2-4.4 [facility] Comment on above: Performed By: #### V ITD, MG, PHOS, FERR, CBCAD, FE Prof, CMP #### [facility] [address] [place], [place] [id number] Q - VITAMIN B1 PLASMAon 09-23 VITAMIN B1 (THIAMINE), SERUM/PLASMA, LC/MS/MS <6 Low 8-30 [facility] Comment on above: Order Comment: Quest performed at: [facility], [facility], [address], [place], [place], , Dye Tub Tender: Alexis Abbott M.D.,PhDQuest Collection Date/Time: [id number] Results Received Date/Time: [id number] Reported Date/Time: Result Comment: Yolande min supplementation within 24 hours prior to blood draw may affect the accuracy of the results. This test was developed and its analytical performance characteristics have been determined by [facility] [place], [place]. It has not been cleared or approved by the U.S. Food and Drug Administration. This assay has been validated pursuant to the CLIA regulations and is used for clinical purposes. Performed By: #### T SH, CMP, LIPD #### [facility] [address] [place], [place] [id number] Vitamin B12/Folateon 021 Cobalamin (Vitamin B12) [Mass/Vol] 523 pg/mL Normal 211-946 [place] [facility] Comment on above: Performed By: #### T SH, CMP, LIPD #### [facility] [address] [place], [place] [id number] FOL 8.2 ng/mL Normal >4.7 [facility] Comment on above: Result Comment: Refisidro barba range change 09/09/2017. Prior reference range F 4.8-37.3 ng/mL, M 4.5-32.2 ng/mL. Performed By: #### T SH, CMP, LIPD #### [facility] [address] [place], [place] [id number] Vitamin D 25-OHon 10-08-2021 VIT D 25 OH 25 ng/ml Low >29 [facility] Comment on above: Result Comment: Yolande min D Status Deficiency <20 ng/mL Insufficiency 20-29 ng/mL Optimal 30-100 ng/mL Possible Toxicity >=150 ng/mL Performed By: #### T NELY, RAMONA, LIPD #### [facility] [address] [place], [place] [id number] CT ABD/PELVIS WO CONon 09-01 CT ABD/PELVIS WO CON EXAMINATION: CT ABD/PELVIS WO CON, 08/31/2021 9:17 PM EST HISTORY: GENERALIZED ABDOMINAL PAIN COMPARISON: CT abdominal aorta examination dated 09/06/2018. TECHNIQUE: CT scan of the abdomen and pelvis was performed without IV contrast. CT dose reduction technique was used, including Automated Exposure Control. FINDINGS: There is mild bibasilar atelectasis. There is a small hiatal hernia. Abdomen: Please note that the sensitivity for detection of focal lesions or vascular disease is markedly reduced without intravenous contrast. The liver and spleen are unremarkable. There is no intra or extrahepatic biliary duct dilatation. The gallbladder is surgically absent. The pancreas, adrenal glands, kidneys, and the appendix are unremarkable. There is colonic diverticulosis without evidence of acute inflammation. There are postsurgical changes about loops of bowel. There is no mesenteric or retroperitoneal lymphadenopathy. There are postsurgical changes of the stomach, likely a gastric sleeve procedure. Within the left upper quadrant and extending from the area of postsurgical changes of the stomach, there is fluid containing foci of air with the fluid collection measuring up to approximately 12.8 x 5.4 x 4.4 cm (series 3, image 14 and series 6, image 37). There are inflammatory changes within the subcutaneous tissues of the abdomen along the midline that also extends into the underlying intraperitoneal fat. There are fluid collections within the subcutaneous tissues along the midline measuring up to 6.5 x 3.6 cm (series 3, image 67). No soft tissue air is seen. Evaluation for an abscess is limited without intravenous contrast. There are a few foci of intraperitoneal free air. Pelvis: The bladder and rectum are unremarkable. There is no iliac or inguinal lymphadenopathy. There is advanced atherosclerotic disease. Bone windows show no aggressive osseous lesions. IMPRESSION: 1. Postsurgical changes of a gastric sleeve with a suspected leak as there is free fluid containing air extending from the postsurgical changes of the stomach to the left upper quadrant. There are also a few scattered foci of intraperitoneal free air which could be related to the leak. Please note that infection could also be present, and evaluation for an abscess is limited without intravenous contrast. 2. Inflammatory changes within the subcutaneous tissues along the abdominal midline with some inflammatory changes also extending into the intraperitoneal cavity. There are multiple fluid collections within the subcutaneous tissues along the postsurgical changes which could represent hematomas and/or postoperative seromas. Again please note that abscesses are not excluded. 3. Status post cholecystectomy. 4. Colonic diverticulosis without evidence of acute inflammation. Findings #1 and #[address] Caballero by Dr. Walsh at 11:18 PM on 08/31/2021. Electronically authenticated by: Ema WALSH Date: 2021-08-31 23:[address] [facility] AMYLASEon 08-31-2021 Amylase [Catalytic activity/Vol] 34 U/L Normal 31-[address] [facility] Comment on above: Performed By: #### L IPA, MIHAELA, CMP #### [facility] [address] [place], [place] [address] Dr. Chris Real CBC AUTO DIFFon 08-31-2021 BASO # 0.1 103/ul Normal 0.0-0.[address] [facility] Comment on above: Performed By: #### C BC #### [facility] [address] [place], [place] [address] Dr. Chris Real Basophils/100 WBC (Bld) 0.6 % Normal 0.2-2.0 [facility] Comment on above: Performed By: #### C BC #### [facility] [address] [place] [address] Dr. Chris eRal EO # 0.2 103/ul Normal 0.0-0.[address] [facility] Comment on above: Performed By: #### C BC #### [facility] [address] [place] [address] Dr. Chris Real Eosinophils/100 WBC (Bld) 2.3 % Normal 0.9-7.[address] [facility] Comment on above: Performed By: #### C BC #### [facility] [address] [place] [address] Dr. Chris Real Erythrocyte distribution width (RBC) [Ratio] 14.6 % Normal 11.0-15.[address] [facility] Comment on above: Performed By: #### C BC #### [facility] [address] [place] [address] Dr. Chris Real Hematocrit (Bld) [Volume fraction] 38.6 % Critically low 42.0-54.[address] [facility] Comment on above: Performed By: #### C BC #### [facility] [address] [place] [address] Dr. Chris Real Hemoglobin (Bld) [Mass/Vol] 12.6 g/dL Critically low 14.0-18.[address] [facility] Comment on above: Performed By: #### C BC #### [facility] [address] [place] [address] Dr. Chris Real IG # 0.02 10e3/ul Normal 0.00-0.03 [facility] Comment on above: Performed By: #### C BC #### [facility] [address] [place] [address] Dr. Chris Real IG % 0.2 % Normal 0.0-0.5 [facility] Comment on above: Performed By: #### C BC #### [facility] [address] [place] [address] Dr. Chris Real LYMPH # 1.9 103/ul Normal 1.2-3.8 [facility] Comment on above: Performed By: #### C BC #### [facility] [address] [place] [address] Dr. Chris Real Lymphocytes/100 WBC (Bld) 23.8 % Normal 20.5-60.[address] [facility] Comment on above: Performed By: #### C BC #### [facility] [address] [place] [address] Dr. Chris Real MANUAL DIFF REQ NO Normal [facility] Comment on above: Performed By: #### C BC #### [facility] [address] [place] [address] Dr. Chris Real MCH (RBC) [Entitic mass] 29.1 pg Normal 25.9-34.[address] [facility] Comment on above: Performed By: #### C BC #### [facility] [address] [place] [address] Dr. Chris Real MCHC (RBC) [Mass/Vol] 32.6 g/dL Normal 29.9-35.[address] [facility] Comment on above: Performed By: #### C BC #### [facility] [address] [place] [address] Dr. Chris Real MCV (RBC) [Entitic vol] 89.1 fL Normal 80.0-94.0 [facility] Comment on above: Performed By: #### C BC #### [facility] [address] [place] [address] Dr. Chris Real MONO # 0.8 103/ul Normal 0.3-0.[address] [facility] Comment on above: Performed By: #### C BC #### [facility] [address] [place] [address] Dr. Chris Real Monocytes/100 WBC (Bld) 10.3 % Normal 1.7-12.0 [facility] Comment on above: Performed By: #### C BC #### [facility] [address] [place] [address] Dr. Chris Real NEUT # 5.1 103/ul Normal 1.4-6.[address] [facility] Comment on above: Performed By: #### C BC #### [facility] [address] [place] [address] Dr. Chris Real Neutrophils/100 WBC (Bld) 62.8 % Normal 43.0-75.0 [facility] Comment on above: Performed By: #### C BC #### [facility] [address] [place] [address] Dr. Chris Real Platelet mean volume (Bld) [Entitic vol] 10.4 fL Normal 9.5-13.5 [facility] Comment on above: Performed By: #### C BC #### [facility] [address] [place] [address] Dr. Chris Real PLT 325 103/ul Normal 150-450 [facility] Comment on above: Performed By: #### C BC #### [facility] [address] [place] [address] Dr. Chris Real RBC 4.33 106/ul Critically low 4.70-6.10 [facility] Comment on above: Performed By: #### C BC #### [facility] [address] [place] [address] Dr. Chris Real WBC 8.1 103/ul Normal 4.0-11.0 [facility] Comment on above: Performed By: #### C BC #### [facility] [address] [place] [address] Dr. Chris Real Covid-19 [facility]on SARS-CoV-2 (COVID-19) RNA GAIL+probe Ql (Unsp spec) Not detected Normal NOT DETECTED [facility] Comment on above: Result Comment: When diagnostic testing is negative, the possibility of a false negative should be considered in the context of a patient's recent exposures and the presence of clinical signs and symptoms consistent with SARS-CoV-2. This test is not yet approved or cleared by the [place] Food and Drug Administration (FDA). This test was developed by [employer], [place], [place]. The performance characteristics of this test were validated by [facility]. The results are not intended to be used as the sole means for clinical diagnosis or patient management decisions. [facility] is authorized under Clinical Laboratory Improvement Amendments (CLIA) to perform high- complexity testing. Performed By: #### C VDTBH #### [facility] [address] [place] [address] Dr. Chris Real LIPASEon 08-31-2021 Lipase [Catalytic activity/Vol] 109.0 U/L Normal 23.0-300.[address] [facility] Comment on above: Performed By: #### L SARAY MIHAELA, CMP #### [facility] [address] [place] [address] Dr. Chris Real PROF 14(COMP METB)on 021 Albumin [Mass/Vol] 2.7 g/dL Critically low 3.5-5.0 [facility] Comment on above: Performed By: #### L MIHAELA SO, CMP #### [facility] [address] [place] [address] Dr. Chris Real Albumin/Globulin [Mass ratio] 0.6 {ratio} Normal [facility] Comment on above: Performed By: #### L SARAY MIHAELA, CMP #### [facility] [address] [place] [address] Dr. Chris Real ALP [Catalytic activity/Vol] 110 U/L Normal 38-[address] [facility] Comment on above: Performed By: #### L SARAY MIHAELA, CMP #### [facility] [address] [place] [address] Dr. Chris Real ALT [Catalytic activity/Vol] 19 U/L Critically low 21-[address] [facility] Comment on above: Performed By: #### L SARAY MIHAELA, CMP #### [facility] [address] [place] [address] Dr. Chris Real Anion gap [Moles/Vol] 12.8 mmol/L Normal [facility] Comment on above: Performed By: #### L SARAY MIHAELA, CMP #### [facility] [address] [place] [address] Dr. Chris Real AST [Catalytic activity/Vol] 23 U/L Normal 17-[address] [facility] Comment on above: Performed By: #### L IPA MIHAELA, CMP #### [facility] [address] [place] [address] Dr. Chris Real Bilirubin [Mass/Vol] 1.0 mg/dL Normal 0.2-1.3 [facility] Comment on above: Performed By: #### L MIHAELA SO, CMP #### [facility] [address] [place] [address] Dr. Chris Real Calcium [Mass/Vol] 8.6 mg/dL Normal 8.4-10.2 [facility] Comment on above: Performed By: #### L MIHAELA SO, CMP #### [facility] [address] [place] [address] Dr. Chris Real Chloride [Moles/Vol] 98 mmol/L Normal 98-[address] [facility] Comment on above: Performed By: #### L MIHAELA SO, CMP #### [facility] [address] [place] [address] Dr. Chris Real CO2 [Moles/Vol] 29.1 mmol/L Normal 22.0-30.[address] [facility] Comment on above: Performed By: #### L MIHAELA SO, CMP #### [facility] [address] [place] [address] Dr. Chris Real Creatinine [Mass/Vol] 1.16 mg/dL Normal 0.66-1.[address] [facility] Comment on above: Performed By: #### L MIHAELA SO, CMP #### [facility] [address] [place] [address] Dr. Chris Real EGFR-AF CZECH >60 Normal >=60 [facility] Comment on above: Performed By: #### L MIHAELA SO, CMP #### [facility] [address] [place] [address] Dr. Chris Real EGFR-NON AF CZECH >60 Normal >=[address] [facility] Comment on above: Performed By: #### L MIHAELA SO, CMP #### [facility] [address] [place] [address] Dr. Chris Real Globulin (S) [Mass/Vol] 4.4 g/dL Normal T [facility] Comment on above: Performed By: #### L MIHAELA SO, CMP #### [facility] [address] [address] [address] Chris Real Glucose [Mass/Vol] 106 mg/dL Normal 74-106 [facility] Comment on above: Performed By: #### L MIHAELA SO, CMP #### [facility] [address] [address] [address] Chris Real Potassium [Moles/Vol] 2.9 mmol/L Critically low 3.4-5.[address] [facility] Comment on above: Result Comment: TEST REPEATED; CRITICAL VALUE VERIFIED Performed By: #### L MIHAELA SO, CMP #### [facility] [address] [address] [address] Chris Real Protein [Mass/Vol] 7.1 g/dL Normal 6.1-8.[address] [facility] Comment on above: Performed By: #### L MIHAELA SO, CMP #### [facility] [address] [address] [address] Chris Real Sodium [Moles/Vol] 137 mmol/L Normal 137-145 [facility] Comment on above: Performed By: #### L MIHAELA SO, CMP #### [facility] [address] [address] [address] Chris Real Urea nitrogen [Mass/Vol] 12.0 mg/dL Normal 9.0-20.[address] [facility] Comment on above: Performed By: #### L MIHAELA SO, CMP #### [facility] [address] [address] [address] Chris Real Urea nitrogen/Creatinine [Mass ratio] 10.3 mg/mg Normal [facility] Comment on above: Performed By: #### L MIHAELA SO, CMP #### [facility] [address] [address] [address] Chris Real US RUSSEL DOP LEG LTon 08-31-20 US RUSSEL DOP LEG LT EXAM: US RUSSEL DOP LEG LT HISTORY: Pain COMPARISON: 07/22/2020 TECHNIQUE: Ultrasonography of the left lower extremity is performed from the groin to the calf. FINDINGS: The deep venous structures demonstrate normal compressibility. There is no intraluminal thrombus. Normal color Doppler images with spectral waveforms. Unremarkable superficial imaged soft tissues. IMPRESSION: No evidence for deep venous thrombosis. Electronically authenticated by: KOFFI DAO Date: 2021-08-31 21:29 Normal [facility] XR CHEST 1 Von 08-31-2021 XR CHEST 1 V EXAM: XR CHEST 1 V HISTORY: SHORTNESS OF BREATH COMPARISON: Chest x-ray dated 03/22/2015. FINDINGS: Bilateral interstitial marking prominence. Cardiomegaly. No definite pneumothorax. IMPRESSION: Bilateral interstitial marking prominence and cardiomegaly concerning for pulmonary edema. Electronically authenticated by: LALO HICKMAN Date: 2021-08-31 21:[address] [facility] Ambulatory Clinical Summaryo n 02-24-2021 Ambulatory Clinical Summary {[id number] Normal [facility] Patient Educationon 02-25-20 Patient Education Benign Prostatic Hyperplasia You have an enlarged prostate. This is common in elderly males. It is called BPH. This stands for benign prostate hyperplasia. The prostate gland is located in base of the bladder. When it grows, the prostate blocks the urethra. This is the tube which drains urine from the bladder. SYMPTOMS ? Weak urine stream. ? Dribbling. ? Feeling like the bladder has not emptied completely. ? Difficulty starting urination. ? Getting up frequently at night to urinate. ? Urinating more frequently during the day. Complete urinary blockage or severe pain with urination requires immediate attention. DIAGNOSIS ? Your caregiver often has a good idea what is wrong by taking a history and doing a physical exam. ? Special x-rays may be done. TREATMENT ? For mild problems, no treatment may be necessary. ? If the problems are moderate, medications may provide relief. Some of these work by making the prostate gland smaller. The herb saw palmetto is commonly used. ? If complete blockage occurs, a Arias catheter is usually left in place for a few days. ? Surgery is often needed for more severe problems. TURP is the prostate surgery for BPH which is done through the urethra. TURP stands for transurethral resection of the prostate. It involves cutting away chips from the prostate. It is done by removing chips so that they can come out through the penis. ? Techniques using heat, microwave and laser to remove the prostate blockage are also being used. HOME CARE INSTRUCTIONS ? Give yourself time when you urinate. ? Stay away from alcohol. ? Beverages containing caffeine such as coffee, tea and ynes can make the problems worse. ? Decongestants, antihistamines, and some prescription medicines can also make the problem worse. ? Follow up with your caregiver for further treatment as recommended. SEEK IMMEDIATE MEDICAL CARE IF: ? You develop increased pain with urination or are unable to pass your water. ? You develop severe abdominal pain, vomiting, a high fever, or fainting. ? You develop back pain or blood in your urine. MAKE SURE YOU: ? Understand these instructions. ? Will watch your condition. ? Will get help right away if you are not doing well or get worse. Document Released: 10/10/2006 Document Revised: 01/01/2013 Document Reviewed: 06/14/2008 ExitCare? Patient Information ?2013 [employer]. [facility] Urology Office/Clinic Noteon 02-24-2021 Urology Office/Clinic Note Chief Complaint 2 month f/u Patient is a 65-year-old male with a history of a left distal ureteral calculus. He status post cystoscopy and retrograde pyelograms, ureteroscopy and urethral dilation. Apparently the urethral dilation has significantly improved his voiding pattern. He had no complaints since his procedure and is here today for follow-up visit. HPI Staff Ind[place] is a 65 y.o. male here for a 3 month follow up. Patient is s/p cystoscopy with retrograde pyelogram, ureteroscopy done 11/26/20. No stones were extracted at this time. Patient was also dilated at this time. Patient Denies any recent pain or discomfort. Patient states that since procedure he has been urinating very well. Most recent PSA was 1.00 in 08/2020.. Patient is unsure of medicaiton list, but thinks he is still taking tamsulosin 0.4mg qday.. Dysuria: _Denies Incomplete bladder emptying: _Denies Hematuria: _Denies any visible blood in urine Frequency: _Denies Urgency: _Yes Nocturia: _atleast once Stream: _Steady Leaking: _Some Post void dripping: _Denies Wearing pads/ Depends: _No Urge incontinence: _yes Stress incontinence: _Denies Incontinence without Sensory Awareness: _Denies Abdominal pain: _Denies Flank pain: _Denies Sexual complaints: _ History of Present Illness Reviewed UA and op report. There have been no associated fever, chills, flank pain or blood in the urine. Pt. denies any pain/burning with urination at this time. Review of Systems PHQ Score Initial Depression Screen Score: 0 ROS - Provider Constitutional: denies weight loss, denies hot flashes. Eyes: denies eye problems. Gastrointestinal: denies nausea, denies vomiting. Cardiovascular: denies chest pain or angina. Integumentary: no dryness Musculoskeletal: denies musculoskeletal symptoms. ENMT: denies otolaryngeal symptoms. Respiratory: no shortness of breath. Heme/Lymph: denies easy bleeding tendency, denies easy bruising tendency. Psychiatric: no confusion, no anxiety. Genitourinary: denies dysuria, denies hematuria, denies discharge, denies urinary frequency, denies urinary hesitancy, denies nocturia, denies incontinence, denies genital sores, denies decreased libido, and denies erectile dysfunction. Physical Exam Vitals & Measurements HR: 57(Peripheral) BP: 136/87 HT: 175.0 cm HT: 175 cm WT: 174.5 kg WT: 174.5 kg BMI: 56.98 General Appearance: alert, no distress, well nourished, well developed male. Genitourinary: normal scrotum, normal testes, normal urethra, normal epididymis, normal vas deferens/spermatic cord. Flank Pain: none. Bladder: nonpalpable. Assessment/Plan At this point patient is doing well. He has no more flank pain. He has not passed a stone since his last visit. He states he is voiding with a much better stream than he had prior to his cystoscopic exam. This is likely related to urethral dilation. I will plan to will be to see him back in the office on an as-needed basis. He will contact office if he has any new or recurrent problems. 1. Ureteral stone (N20.1: Calculus of ureter) S/p Cysto/RG/Ureteroscopy done 11/26/20, no stones were found. Pt. denies any stone pain/issues and is doing well overall at this time. All questions/concerns were discussed. Pt. to call the office if heencounters any issues prior. Pt. acknowledges understanding. 2. BPH with urinary obstruction (N40.1: Benign prostatic hyperplasia with lower urinary tract symptoms) Pt. believes he is still taking Flomax 0.4mg qd. Pt. has been doing well with urination since the dilation. Last PSA drawn in 08/2019 w/ a level of 1.0. 3. Urethral stricture (N35.919: Unspecified urethral stricture, male, unspecified site) S/p UD done 11/26/2020. Orders: Urnls Dip Stick Auto w/o Microscopy POC 74588 I have reviewed the previous health record information and history for this pt. from Dr. Caballero. Follow-up With When Contact Information Federico Tavarez MD, Rene Wallace, [facility] [address] [place] [address]- Additional Instructions: prn Patient Education Benign Prostatic Hyperplasia I, Radha Lan , personally scribed for Dr. Caballero on 02/24/2021 11:29:21. . Documentation recorded by the scribe, Radha Lan, accurately reflects the services(s) I performed and decisions made by me. Authenticated by Dr. Caballero on 02/24/2021 13:10:35. Problem List/Past Medical History Ongoing Abdominal pain Anticoagulated Arthritis BPH with urinary obstruction Diabetes Diverticular disease Heart attack Hyperlipidemia Hypertension Nocturia Split urinary stream Ureteral stone Urge incontinence Urinary frequency Urinary retention Urinary urgency Historical No qualifying data Procedure/Surgical History Ureteroscopy (11/26/2020), Cystourethroscopy with dilation of urethral stricture (10/08/2019), Cystoscopy (12/07/2018), Cholecystectomy, Colonoscopy, Knee replacement, Pa (more content not included)... Normal [facility] Comment on above: Result Comment: Elec tronically Signed By: Federico Tavarez MD, Rene Wallace\\.br\\Date and Time Signed: 02/24/21 13:11 EDT\\.br\\Electronically Co-Signed By: Radha Lan MA\\.br\\Date and Time Co-Signed: 02/24/21 11:29 EDT Provider Letteron 02-03-2021 Provider Letter (Inserted Image. Aleshia ble to display) February 03, 2021 [place] [address] INDIO COLLADO 1955 Dear Indio , You missed your scheduled appointment on:02/03/2021 and the purpose of this letter is to inform you of our *No Show Policy*. Our appointment slots fill rapidly and when we have a no show appointment that time is lost. We could have used that time slot to care for a patient who needed to see one of our providers. Therefore, we ask that you call 24 hours in advance to cancel your appointment. This policy is in place so that we can meet the needs of all of our patients and we do appreciate your understanding. Sincerely, [facility] [address], [place] [address] [facility] Physician Referralon 021 Physician Referral [id number]#1.00CD:127 [facility] ECG 12-Leadon 12-02-2020 ECG 12-Lead [id number]#1.00CD:12 7 [facility] Lab Reportson 12-02-2020 Lab Reports [id number]#1.00CD:12 7 [facility] Lab Reports [id number]#1.00CD:12 7 [facility] Lab Reports [id number]#1.00CD:12 7 [facility] Lab Reports [id number]#1.00CD:12 7 [facility] RAD - MISCon 12-02-2020 RAD - MISC [id number]#1.00CD:12 7 [facility] Operative Reporton Operative Report [id number]:12 7 [facility] Ambulatory Clinical Summaryo n 11-13-2020 Ambulatory Clinical Summary {[id number] [facility] Patient Educationon 11-13-19 Patient Education Family Medicine Kidney Stones Kidney stones (ureteral lithiasis ) are solid masses that form inside your kidneys. The intense pain is caused by the stone moving through the kidney, ureter, bladder, and urethra (urinary tract ). When the stone moves, the ureter starts to spasm around the stone. The stone is usually passed in the urine. HOME CARE ? Drink enough fluids to keep your pee (urine ) clear or pale yellow. This helps to get the stone out. ? Strain all pee through the provided strainer. Do not pee without peeing through the strainer, not even once. If you pee the stone out, catch it. The stone may be as small as a grain of salt. Take this to your doctor. ? Only take medicine as told by your doctor. ? Follow up with your doctor as told. ? Get follow-up X-rays as told by your doctor. GET HELP RIGHT AWAY IF: ? Your pain does not get better with medicine. ? You have a fever. ? Your pain increases and gets worse over 18 hours. ? You have new belly (abdominal ) pain. ? You feel faint or pass out. MAKE SURE YOU: ? Understand these instructions. ? Will watch your condition. ? Will get help right away if you are not doing well or get worse. Document Released: 03/28/2009 Document Revised: 01/01/2013 Document Reviewed: 08/07/2010 ExitCare? Patient Information ?2013 [employer]. [facility] Physician Orderon 11-13-2020 Physician Order [id number]#1.00CD:12 7 [facility] Pre-Authorization for Medica l Treatmenton 11-13-2020 Pre-Authorization for Medical Treatment [id number]#1.00CD:1 27 [facility] Urology Office/Clinic Noteon 11-13-2020 Urology Office/Clinic Note Chief Complaint 11 month fu w/ CT This patient is a 65-year-old gentleman with a history of left-sided flank pain and CT scan evidence of a 3 mm distal left ureteral calculus. His CT scan was dated 10/17/2020. Patient states he has not passed a stone at this point and continues to have pain. He is here today for urologic evaluation and management. HPI Staff Patient 11 month fu w/ CT. CT done at [facility] on 10/17/2020 Pt states that he is having LT sided abdominal pain and thinks it is a stone. Tamsulosin 0.4mg QD Dysuria: _n Incomplete bladder emptying: _n Hematuria: n Frequency: increase Urgency: severe Nocturia: 2x per night Stream: steady Leaking: intermittent Post void dripping: _n Wearing pads/ Depends: no but states that he probably should Urge incontinence: severe. this has increased Stress incontinence: n Incontinence without Sensory Awareness: n Abdominal pain: _LT side pain Flank pain: _n History of Present Illness Reviewed urine and CT from [facility]. There have been no associated fever, chills, flank pain or blood in the urine. Pt. denies any pain/burning with urination at this time. Review of Systems PHQ Score Initial Depression Screen Score: 2 ROS - Provider Constitutional: denies weight loss, denies hot flashes. Eyes: denies eye problems. Gastrointestinal: denies nausea, denies vomiting. Cardiovascular: denies chest pain or angina. Integumentary: no dryness Musculoskeletal: denies musculoskeletal symptoms. ENMT: denies otolaryngeal symptoms. Respiratory: no shortness of breath. Heme/Lymph: denies easy bleeding tendency, denies easy bruising tendency. Psychiatric: no confusion, no anxiety. Genitourinary: denies dysuria, denies hematuria, denies discharge, denies urinary frequency, denies urinary hesitancy, moderate nocturia, moderate incontinence, denies genital sores, denies decreased libido, and denies erectile dysfunction. Physical Exam Vitals & Measurements HR: 69(Peripheral) RR: 16 BP: 142/75 HT: 175.0 cm HT: 175 cm WT: 180.0 kg WT: 180 kg BMI: 58.78 General Appearance: alert, no distress, well nourished, well developed male. This patient is obese. He is not short of breath and does not complain of chest pain or any other related issues. He does complain of some left-sided flank pain. Head: normocephalic . Eyes: normal orbit and globe. ENMT: normal examination of external ears. Chest: Lungs CTA, respirations non labored. Cardiovascular: regular rate and rhythm. Abdomen: soft, non distended, no tenderness, no mass or organomegaly, no hernia. There is mild left-sided flank pain. Genitourinary: normal scrotum, normal testes, normal urethra, normal epididymis, normal vas deferens/spermatic cord. Flank Pain: none. Bladder: nonpalpable. Penis: normal shaft, normal glans. Lymph Nodes: unremarkable palpation of the cervical area. Skin: warm, dry, no bruising. Psychiatric: cooperative, affect appropriate for age, normal judgement, euthymic mood. Assessment/Plan This patient has CT scan evidence of left distal ureteral calculus. He has been scheduled for cystoscopy and ureteroscopic stone extraction with possible laser lithotripsy and possible stent placement. Informed consent has been obtained. 1. Ureteral stone (N20.1: Calculus of ureter) Per CT done on 10/17/2020 shows a 3mm Lt. ureteral stone. Will schedule a Cystoscopy. Left Retrogrades, Left Ureteroscopy, Left Laser Litho, Left Stone Basket, Left possible stent placement. This procedure has been explained to the pt. in terms they understand and all of the risks and benefits associated have been discussed with them in detail. All of their questions and concerns have been addressed. Pt. voices their informed consent and wishes to proceed with the procedure. Ordered: Urology Procedure Order 2. BPH with urinary obstruction (N40.1: Benign prostatic hyperplasia with lower urinary tract symptoms) Pt. continues to take Flomax 0.4mg qd. Last PSA drawn on 08/2019 w/ a level of 1.0. Ordered: Urnls Dip Stick Auto w/o Microscopy POC [id number] Urology Procedure Order 3. Nocturia (R35.1: Nocturia) 2x/night. Ordered: Urology Procedure Order 4. Urge incontinence (N39.41: Urge incontinence) Moderate - severe. Ordered: Urology Procedure Order 5. Abdominal pain (R10.9: Unspecified abdominal pain) LLQ. Ordered: Urology Procedure Order I have reviewed the previous health record information and history for this pt. from Dr. Caballero. Follow-up With When Contact Information Federico Tavarez MD, Rene Wallace [address] [facility] [id number] Additional Instructions: Patient Education Kidney Stones, [id number] I, Radha Lan , personally scribed for Dr. Caballero on 11/13/2020 09:19:01. . Documentation recorded by the scribe, Radha Lan, accurately reflects the services(s) I performed and decisions m (more content not included)... [facility] Comment on above: Result Comment: Elec tronically Signed By: Federico Tavarez MD, Rene Wallace\\.br\\Date and Time Signed: 11/13/20 09:42 EST\\.br\\Electronically Co-Signed By: Radha Lan MA\\.br\\Date and Time Co-Signed: 11/13/20 09:19 EST RAD - CT Reporton 10-31-[address] - [address] Report [id number]#1.00CD:12 7 [facility] Vital Signs Date Time Vital Sign Value Performing Clinician Facility 12-05-2023 09:55-0500 Body mass index (BMI) [Ratio] 29.51 kg/m2 Juhi Hemmer PA Work Phone: [facility] 12-05-2023 09:55-0500 Body temperature 99 [degF] Juhi Hemmer PA Work Phone: [facility] 12-05-2023 09:55-0500 Body weight 90.63 kg Juhi Hemkranthi PA Work Phone: [facility] 12-05-2023 09:55-0500 Diastolic blood pressure 100 mm[Hg] Juhi Hemmer PA Work Phone: [facility] 12-05-2023 09:55-0500 Heart rate 102 /min Juhi Hemmer PA Work Phone: [facility] 12-05-2023 09:55-0500 Respiratory rate 16 /min Juhi Hemmer PA Work Phone: [facility] 12-05-2023 09:55-0500 SaO2% (BldA) [Mass fraction] 98 % Juhi Hemmer PA Work Phone: [facility] 12-05-2023 09:55-0500 Systolic blood pressure 162 mm[Hg] Juhi Hemmer PA Work Phone: [facility] 11-08-2023 09:49-0500 Body height 175.3 cm Helen Gonzalez MD Work Phone: [facility] 11-08-2023 09:49-0500 Body mass index (BMI) [Ratio] 29.09 kg/m2 Helen Gonzalez MD Work Phone: [facility] 11-08-2023 09:49-0500 Body weight 89.36 kg Helen Gonzalez MD Work Phone: [facility] 11-08-2023 09:49-0500 Diastolic blood pressure 86 mm[Hg] Helen Gonzalez MD Work Phone: [facility] 11-08-2023 09:49-0500 Heart rate 48 /min Helen Gonzalez MD Work Phone: [facility] 11-08-2023 09:49-0500 SaO2% (BldA) [Mass fraction] 99 % Helen Gonzalez MD Work Phone: [facility] 11-08-2023 09:49-0500 Systolic blood pressure 160 mm[Hg] Helen Gonzalez MD Work Phone: [facility] 11-09-2022 12:47-0500 Diastolic blood pressure 88 mm[Hg] Fredrick Babin DO Work Phone: [facility] 11-09-2022 12:47-0500 Heart rate 76 /min Fredrick Boothby DO Work Phone: [facility] 11-09-2022 12:47-0500 Respiratory rate 10 /min Fredrick [employer] DO Work Phone: [facility] 11-09-2022 12:47-0500 SaO2% (BldA) [Mass fraction] 100 % Fredrick Boothby DO Work Phone: [facility] 11-09-2022 12:47-0500 Systolic blood pressure 162 mm[Hg] Fredrick Boothby DO Work Phone: [facility] 11-09-2022 12:17-0500 Body temperature 97 [degF] Fredrick [employer] DO Work Phone: [facility] 11-09-2022 11:14-0500 Body height 175.3 cm Fredrick [employer] Work Phone: [facility] 11-09-2022 11:14-0500 Body mass index (BMI) [Ratio] 29.98 kg/m2 Fredrick [employer] Work Phone: [facility] 11-09-2022 11:14-0500 Body weight 92.08 kg Fredrick [employer] Work Phone: [facility] 10-05-2022 10:14-0500 Body height 175.26 cm II Christopher Velazquez Work Phone: [facility] 10-05-2022 10:14-0500 Body mass index (BMI) [Ratio] 31.4 kg/m2 II Christopher Velazquez Work Phone: [facility] 10-05-2022 10:14-0500 Body weight 96.61 kg II Christopher Velazquez Work Phone: [facility] 10-05-2022 09:45-0500 Body temperature 97.5 [degF] II Christophersimon Velazquez Work Phone: [facility] 10-05-2022 09:45-0500 Diastolic blood pressure 84 mm[Hg] II Christopher Velazquez Work Phone: [facility] 10-05-2022 09:45-0500 Heart rate 68 /min II Christopher Velazquez Work Phone: [facility] 10-05-2022 09:45-0500 Respiratory rate 18 /min II Christopher Velazquez Work Phone: [facility] 10-05-2022 09:45-0500 Systolic blood pressure 160 mm[Hg] II Christopher Velazquez Work Phone: [facility] 09-30-2022 13:59-0500 Body temperature 97.9 [degF] II Christopher Velazquez Work Phone: [facility] 09-30-2022 13:59-0500 Diastolic blood pressure 83 mm[Hg] II Christopher Velazquez Work Phone: [facility] 09-30-2022 13:59-0500 Heart rate 56 /min II Christopher Velazquez Work Phone: [facility] 09-30-2022 13:59-0500 SaO2% (BldA) [Mass fraction] 95 % II Christopher Velazquez Work Phone: [facility] 09-30-2022 13:59-0500 Systolic blood pressure 135 mm[Hg] II Christopher Velazquez Work Phone: [facility] 09-30-2022 07:45-0500 Respiratory rate 18 /min II Christopher Velazquez Work Phone: [facility] 09-29-2022 07:28-0500 Body height 175.26 cm II Christopher Velazquez Work Phone: [facility] 09-26-2022 05:50-0500 Body weight 105 kg II Christopher Velazquez Work Phone: [facility] Encounters Encounter Date Encounter Type Care Provider Facility Start: 03-09-2024 End: 03-09-2024 ambulatory JUHI SULLIVAN Not Available Start: 03-08-2024 End: 03-08-2024 ambulatory [facility] Start: 03-02-2024 ambulatory CHRISTOPHER VELAZQUEZ [facility] Start: 03-02-2024 ambulatory CHRISTOPHER VELAZQUEZ [facility] Start: 02-29-2024 ambulatory [facility] Start: 02-29-2024 End: 02-29-2024 ambulatory [facility] Start: 02-14-2024 End: 02-14-2024 ambulatory [facility] Start: 01-28-2024 End: 01-29-2024 Emergency department patient visit LAUREN Hutton [facility] Start: 01-17-2024 End: 01-17-2024 ambulatory NANDO Patrice RETANA Not Available Start: 01-09-2024 End: 01-09-2024 ambulatory CHRISTOPHER VELAZQUEZ Not Available Start: 12-06-2023 End: 12-06-2023 ambulatory EVA SANCHEZ Not Available Start: 12-06-2023 End: 12-06-2023 Office outpatient visit 25 minutes Eva Sanchez DO Work Phone: [facility] Comment on above: Left shoulder pain, unspecified chronicity (Primary Dx); Rotator cuff tear arthropathy of left shoulder; Primary osteoarthritis of left shoulder Start: 12-05-2023 BamNatureBridgeheet Juhi Chandra r PA Work Phone: [facility] Start: 12-05-2023 B[employer]Ocean[employer]xo flowsheet Juhi Chandra r PA Work Phone: [facility] Start: 12-05-2023 End: 12-05-2023 ambulatory JUHI SULLIVAN Not Available Start: 12-05-2023 End: 12-05-2023 Office outpatient visit 15 minutes Juhi Sullivan PA Work Phone: [facility] Comment on above: Chronic obstructive pulmonary disease with acute exacerbation (CMS/HCC) (Primary Dx) Start: 11-16-2023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
[2024-03-22 08:48] LABS: Basophils Absolute Auto 0.1 10^3/uL (0.0-0.1); Basophils Percent Auto 1.1 % (0.2-2.0); Eosinophils Absolute Auto 0.1 10^3/uL (0.0-0.7); Eosinophils Percent Auto 2.4 % (0.9-7.0); Hemoglobin 12.3 g/dL (14.0-18.0); Immature Granulocytes Abs Auto 0.01 10^3/uL (0.00-0.03); Immature Granulocytes Pct Auto 0.2 % (0.0-0.5); Lymphocytes Absolute Auto 1.9 10^3/uL (1.2-3.8); Lymphocytes Percent Auto 35.4 % (20.5-60.0); Mean Corpuscular HGB Conc 30.8 g/dL (29.9-35.2); Mean Corpuscular Hemoglobin 26.7 pg (25.9-34.0); Mean Platelet Volume 10.4 fL (9.5-13.5); Monocytes Absolute Auto 0.4 10^3/uL (0.3-0.8); Monocytes Percent Auto 7.2 % (1.7-12.0); Neutrophils Absolute Auto 2.9 10^3/uL (1.4-6.5); Neutrophils Percent Auto 53.7 % (43.0-75.0); Platelet Count 316 10^3/uL (150-450); Red Cell Distribution Width 16.6 % (11.0-15.0); White Blood Count 5.4 10^3/uL (4.0-11.0)
[2024-03-22 08:49] LABS: Alanine Aminotransferase 14 U/L (16-63); Albumin Globulin Ratio 0.8; Albumin Level 2.8 g/dL (3.4-5.0); Alkaline Phosphatase 119 U/L (46-116); Anion Gap 11.2; Aspartate Amino Transferase 8 U/L (15-37); BUN Creatinine Ratio 11.2; Bilirubin Total 1.6 mg/dL (0.2-1.0); Calcium 8.1 mg/dL (8.5-10.1); Carbon Dioxide 30.1 mmol/L (21.0-32.0); Chloride 105 mmol/L (98-107); Estimated GFR (African America >60 (>=60); Estimated GFR (Non-African Ame >60 (>=60); Globulin 3.6 g/dL; Glucose 97 mg/dL (74-106); Potassium 4.3 mmol/L (3.5-5.1); Sodium 142 mmol/L (136-145); Total Protein 6.4 g/dL (6.4-8.2)
== END 2024-03-22 07:12 | disposition home or self-care (01) ==
LOC: LAB 07:12
PROVIDERS: PCP Internal Medicine; Visit Provider Nurse Practitioner Family
DX: I50.21 Acute systolic (congestive) heart failure (principal)
CPT/HCPCS: 36415; 80053; 83880; 85025

== ENCOUNTER 2024-06-12 06:16 | Outpatient (OUT) | payer OTHER, SELFPAY ==
--- OUTSIDE RECORDS SUMMARY | 2024-06-12 06:19 | XMS_ITS | CCD ---
Author Organization [facility] Care Team Providers Care Taxi Dancer Name Role Phone CHRISTOPHER YANG Admitting Unavailable [...] LALO HICKMAN Consulting Unavailable MICHAEL REINOSO Consulting Unavailab OLGA LIDIA Mckeon Admitting Unavailable OLGA LIDIA WAITE Attending Unavailable CARLOS WEISS Consulting Unavailable INDIO MCHUGH Consulting Unavailable HALIE GUADALUPE Consulting Unavailable Marina Cheng Attending Unavailab Marina Hutton Attending Unavailab shi Cheng, Marina Attending Unavailab MD Henok Leggett Attending Unavaila indu Cheng, Marina Attending Unavailab Gordon Orellana Admitting Unavailable Gordon Smith Attending Unavailable Christopher Velazquez Primary Care Unavailable Sirisha Savage Consulting Unavailable Libertad Vazquez Consulting Unavailable Taryn Sanders Consulting Unavailable Marta Trevizo Consulting Unavailable Carmenza Thomas Consulting Unavailable Krystyna Carrillo Consulting Unavailable Kimo Cary Consulting Unavailable Judie Issac K Consulting Unavailable Jayna Dunna M Consulting Unavailable Maurilio Murrell Consulting [...] Mihaela Miller Consulting Unavailable DoamekporGen Consulting Unavailab shi Bone Gamal Consulting Unavailable VenkateshImelda almanzar Consulting Unavailable Matthias Pablo Consulting Unavailable Giselle Jaquez Consulting Unavailable Jak Ku Consulting Unavailab David Sung Consulting Unavailable Nando Roe Consulting Unavailable ObGina rand Consulting Unavailable Timothy Vaughan Consulting Unavailable Daromar Obaydah M Consulting Unavailable Katharine Caballero Consulting Unavailable Debora Hunt Consulting Unavailable Fany Ford Consulting Unavailable Jenae Mcgee Consulting Unavailable Fer Mayfield Consulting Unavailable Jackie Berry Consulting Unavailable Chaz Hurd Consulting Unavailable Chirag Hatch Consulting UnavailChristopher Baugh Primary Care Unavailable Honey Hines Attending Unavailable Honey Hines Admitting Unavailable Christopher Velazquez MD Primary Care Provider [phone] CHAPO Velazquez Primary Care Provider MD Gordon Smith Admit Provider MD Gordon Smith Attending Provider [phone] STERLING Savage Other Provider Unavailable STERLING Vazquez Other Provider Unavailable STERLING Sanders Other Provider Unavailable STERLING Trevizo Other Provider Unavailable STERLING Thomas Other Provider Unavailable STERLING Carrillo Other Provider Unavailable MD Kimo Cary Other Provider MD Issac Dimas Other Provider Shaun, AUTOMATIC STACKER Adeola M Other Provider DO Maurilio Murrell Other Provider MD Jose Jensen Other Provider DO Jg Hamlin Other Provider MD Abran Perera Other Provider MD Eileen Roca Other Provider Ana, ANP-BC Tram Other Provider MD Cassi Suresh Other Provider MD Tushar Pendleton Other Provider MD Harjit Lopez Other Provider MD Katya Best Other Provider DO Henok Doshi Other Provider [phone] MD Rush Flores Other Provider MD Dmitri Radford Other Provider MD Oren Burnett Other Provider Paul, MAINFRAME DEVELOPER-C Mhiaela Thibodeaux Other Provider MD Gen Reich Other Provider MD Gamal Bone Other Provider MD Imelda Riddle Other Provider MD Matthias Pablo Other Provider DO Giselle Jaquez Other Provider MD Jak Ku Other Provider DO David Rossi Other Provider DO Nando Roe Other Provider NAZANIN Fung Other Provider DO Timothy Vaughan Other Provider MD Jaime Trivedi Other Provider [phone] NAZANIN Caballero Other Provider [phone] STERLING Hunt Other Provider Unavailable LISA Ford Other Provider UnavailLISA Guerra Other Provider Unavailable MD Fer Mayfield Other Provider [phone] RED Berry Other Provider [phone] MD Chaz Hrud Other Provider MD Chirag Hatch Other Provider [phone] NAZANIN Hines Attending Provider CHRISTOPHER VELAZQUEZ Primary Care Unavailable CHRISTOPHER VELAZQUEZ [...] Unavailable CHRISTOPHER VELAZQUEZ B Primary Care Unavailable ORIPOP CLEMONSE Attending Unavailable CHRISTOPHER VELAZQUEZ B Referring Unavailable CHRISTOPHER VELAZQUEZ B Primary Care Unavailable Christopher Velazquez MD Unavailable Christopher Velazquez MD Primary Care Provider CHRISTOPHER VELAZQUEZ Primary Care Unavailable LAUREN MARTIN Attending Unavailable LAUREN MARTIN Attending Unavailable LAUREN MARTIN Referring Unavailable DALTON CHRISTOPHER B Primary Care Unavailable HELEN GONZALEZ Attending Unavailable SERINA GONZALEZATUNDE Referring Unavailable DALTON CHRISTOPHER B Primary Care Unavailable CHRISTOPHER VELAZQUEZ B Referring Unavailable DALTON CHRISTOPHER B Primary Care Unavailable CHRISTOPHER VELAZQUEZ B Referring Unavailable DALTON CHRISTOPHER B Primary Care Unavailable DAVE PRESSLEY Referring Unavailable DAVE PRESSLEY Referring Unavailable SCAR WILLIS Referring Unavailable FAB CORTEZ Referring Unavailable SCAR WILLIS Referring Unavailable DAVE PRESSLEY Attending Unavailable FAB CORTEZ Attending Unavailable FAB CORTEZ Attending Unavailable FAB CORTEZ Attending Unavailable ELTANIK, EHAB Admitting Unavailable ELTANIK, BETSEYAB Attending Unavailable SCAR WILLIS Admitting Unavailable SCAR WILLIS Attending Unavailable DAVE PRESSLEY Admitting Unavailable DAVE PRESSLEY Attending Unavailable EVA SANCHEZ Attending Unavailable CHRISTOPHER VELAZQUEZ Attending Unavailable JUHI SULLIVAN Attending Unavailable KAY, EVA García Attending Unavailable CHRISTOPHER VELAZQUEZ Attending Unavailable LAINEY, NANDO Ibrahim Attending Unavailable NANDO RETANA Referring Unavailable JUHI SULLIVAN Attending Unavailable KAY, EVA García Attending Unavailable LAINEY, NANDO Ibrahim Attending Unavailable LAINEY, NANDO Ibrahim Attending Unavailable CHRISTOPHER VELAZQUEZ Attending Unavailable CHRISTOPHER VELAZQUEZ Referring Unavailable CHRISTOPHER VELAZQUEZ Attending Unavailable Allergies Allergy Classification Reported Allergen(s) Allergy Type Date of Onset Reaction(s) Facility (5 sources) Doxycycline; Translations: [DOXYCYCLINE] Drug Allergy 8 Itching [facility] Repository (5 sources) Morphine; Translations: [MORPHINE] Drug Allergy 3 [facility] Repository (7 sources) Penicillins; Translations: [PENICILLINS] Drug allergy (disorder) 3 Hives [facility] Repository (1 source) Doxycycline Drug Allergy 0 [facility] Repository (1 source) Penicillins Drug allergy (disorder) 0 [facility] Repository (6 sources) Doxycycline Drug Allergy [address] [facility] (3 sources) Penicillins Propensity to adverse reactions to drug 8 Rash, Hives [facility] Work Phone: (7 sources) Morphine Drug Allergy 0 Nausea And Vomiting, GI intolerance [facility] (5 sources) Penicillins Drug Intolerance 4 Hives, Other, Rash, Unknown [facility] Medications Current Medications Medication Drug Class(es) Dates Sig (Normalized) Sig (Original) acetaminophen 325 mg oral tablet (3 sources) Start: 11-09-2022 End: 01-18-2023 acetaminophen (TYLENOL) tablet 650 mg Start: 09-29-2022 take 500 mg by mouth every four hours Acetaminophen Active 500 MG PO Q4H 100 September 29, 2022 12:00am Start: 09-11-2022 End: [...] MG tablet Indications: Athscl heart disease of [place] coronary artery w/o ang pctrs (CMS/HCC) TAKE [...] 12.5 mg oral tablet (12 sources) alpha-Adrenergic Jessica, beta-Adrenergic Jessica Start: 10-20-2022 take 0.5 tablet by mouth [...] 900 MG PO Every 8 hours 270 30 September 29, 2022 12:00am Start: 11-09-2018 End: 09-11-2022 take 600 mg by mouth three times daily Gabapentin Discontinued 600 MG PO Three times daily 0 November 09, 2018 7:09pm September 11, 2022 1:46am Start: 06-16-2018 End: 11-09-2018 take 900 mg by mouth three times daily Gabapentin Discontinued 900 MG PO Three times daily June 15, 2018 11:00pm November 09, 2018 7:09pm Lanolin Qbxtldr-Jy-F.Pet-Spencer (Minerin Creme) Cream (1 source) Start: 09-29-2022 Lanolin Kaldtic-Ek-D.Pet-Spencer (Minerin Creme) Cream Active 1 APPLIC TOPICAL [...] Sulfamethoxazole-Trimethoprim Active 1 TAB PO Twice daily 06 27September 29, 2022 12:00am Start: 10-26-2018 End: 10-31-2018 [...] 25 mg oral tablet (1 source) beta-Adrenergic Jessica Start: 06-16-2018 End: 11-06-2018 take 25 mg [...] November 06, 2018 6:31pm polyethylene glycol 3350 [id number] mg powder for oral solution (1 source) [...] 0.4 mg oral capsule (3 sources) alpha-Adrenergic Jessica Start: 11-09-2018 End: 09-29-2022 take 1 capsule [...] disease (14 sources) Atherosclerotic heart disease of [place] coronary artery without angina pectoris; Translations: [Coronary [...] aftercare (1 source) Polypharmacy ; Translations: [Other correction (current) drug therapy] 11-06-2018 Episodic Other circulatory [...] region, initial encounter] Onset: 2 Episodic Other nervous system disorders (5 sources) [...] Onset: 07-14-2022 Episodic Other aftercare (1 source) jail (current) use of anticoagulants; Translations: [PRISON CURRNT USE ANTICOAGULANTS] Onset: 09-03-2021 Episodic Other aftercare (1 source) Other terminal makeup operator (current) drug therapy; Translations: [OTH UNIT CONTROL CLERK CURRENT DRUG THERAPY] Onset: 09-03-2021 Episodic Other [...] initial encounter] Onset: 10-19-2022 10-19-2022 Episodic Other lower respiratory disease (2 sources) Other forms of dyspnea; Translations: [Other forms of dyspnea] Onset: 02-14-2024 Episodic Other skin disorders (5 sources) Multiple [...] Test Name Value Interpretation Reference Range Facility XR LUMBAR SPINE 2-3 VIEWSon 05-18-2024 XR LUMBAR SPINE 2-3 VIEWS Exam: XR - LUMBAR SPINE 2 3 VIEWS Reason for exam: Low back pain Prior comparative studies: None Findings: There is substantial endplate sclerosis and osteophyte formation at all levels. There is 5 mm of retrolisthesis of L2 on L3. There is slight compressive deformity of the L1 vertebral body, age undetermined. Posterior wall appears intact. Facet sclerosis is pronounced in the mid and lower lumbar spine. There is extensive aortic calcification without dilatation. There is spinous process contact posteriorly with some sclerosis. Surgical clips noted in the abdomen. There is moderate stool retention in the colon. IMPRESSION: 1. Slight compressive deformity of the L1 vertebral body, age indeterminate. Posterior wall appears intact. 2. Grade 1 retrolisthesis L2 on L3. 3. Advanced degenerative change throughout the lumbar spine. 4. Spinous process contact posteriorly. This is nonspecific and may be incidental. Baastrup syndrome produces a similar appearance, however. Electronically Signed Jose Angel Cottrell M.D. 2024-05-18 14:11:40 Normal Not Available 37on 05-09-2024 37 *Hold Metoprolol due to your slow heart rate *We will switch Xarelto to Eliquis 5mg twice daily. We gave you samples for one month. You can also use the 30 day free supply card at your pharmacy. After the samples run out, will have you start taking Coumadin. *Call your eye doctor. Let them know you are taking a blood thinner, Eliquis. If they are okay with performing cataract surgery while on Eliquis, okay to proceed with procedure. If they state you need to hold Eliquis before procedure, then cataract surgery will need to be post-poned until after 05/31/24. *Weigh yourself every day and write down your readings. Bring in to your next appt. [facility] Office Visiton 05-09-2024 Follow-up visit [id number] Jonathan Collado 1955 M Date Provider Department Center 05/09/2024 Elliott-FAB CORTEZ [facility] Family History Problem Relation Age of Onset Coronary artery disease Mother Coronary artery disease Father Family Status - Relation Status Age at Mother Father Level of Service:53919 UT OFFICE/OUTPATIENT ESTABLISHED MOD MDM 30 MIN Reason for Visit and Comments: Follow-up [729501] - Follow up cardioversion [facility] HPon 04-30-2024 [facility] Electrophysiology Consult Note [place] [facility] Reason for visit: atrial fibrillation HPI: Indio Collado is a 69 y.o. year old with past medical history of hypertension, CAD, HFpEF, DVT, obesity s/p bariatric surgery had recently undergone HI guided cardioversion on 02/29/2024 for his underlying atrial fibrillation. Prior to that he was evaluated in the ER for chest pain and shortness of breath and was noted to be in atrial fibrillation which is a new diagnosis for him he was rate controlled on Cardizem and subsequently discharged on Xarelto. During HI he was noted to have a ejection fraction of 30 to 35% and prior evaluation of the ejection fraction with echo and Lexiscan in the past has been normal. He had a previous coronary angiography done in July 2018 which revealed mild CAD with patent stent in OM1 and moderately elevated right-sided pressures. Since the time of his cardioversion he was evaluated again by Roxane Cortez on 03/08/2024 and which revealed that he had reverted back to A-fib. He is here to talk to me about further discussion about ablation Denies chest pain, lightheadedness/syncope, and bleeding on Xarelto. Palpitations have resolved, and SOB continues to improve. PMH: Past Medical History: Diagnosis Date Abnormal ECG Arrhythmia Atrial fibrillation (CMS/HCC) CHF (congestive heart failure) (CMS/HCC) Coronary artery disease Deep vein thrombosis (CMS/HCC) Hyperlipidemia Hypertension Myocardial infarction (CMS/HCC) Sleep apnea PSH: Past Surgical History: Procedure Laterality Date CARDIAC CATHETERIZATION CORONARY STENT PLACEMENT GASTRIC BYPASS REPLACEMENT TOTAL KNEE ONCOLOGIC SH: Social Determinants of Health Tobacco Use: Medium Risk (04/23/2024) Patient History Smoking Tobacco Use: Former Smokeless Tobacco Use: Never Passive Exposure: Not on file Alcohol Use: Not on file Financial Resource Strain: Not on file Food Insecurity: Not on file Transportation Needs: Not on file Physical Activity: Not on file Stress: Not on file Social Connections: Not on file Intimate Partner Violence: Unknown (12/15/2023) [place] Safety & Environment Fear of Current or Ex-Partner: Not on file Emotionally Abused: Not on file Physically Abused: Not on file Sexually Abused: Not on file Physically or Sexually Abused: Not on file Depression: Not on file Housing Stability: Not on file Utilities: Not on file Allergies: Allergies Allergen Reactions Penicillins Hives, Other, Rash and Unknown Morphine Nausea And Vomiting Weight: 85.3kg Visit Vitals BP 116/78 Pulse 69 Resp 16 Ht 1.753 m (5' 9 ) Wt 76.2 kg (168 lb) SpO2 98% BMI 24.81 kg/m??? Smoking Status Former BSA 1.93 m??? Meds: No current facility-administered medications on file prior to encounter. Current Outpatient Medications on File Prior to Encounter Medication Sig Dispense Refill amiodarone (Pacerone) 200 mg tablet Take 2 tablets (400 mg) by mouth in the morning and at bedtime for 14 days, THEN 1 tablet (200 mg) in the morning. 146 tablet 0 atorvastatin (Lipitor) 80 mg tablet Take 80 mg by mouth in the morning. dapagliflozin propanediol (Farxiga) 10 mg Take 1 tablet (10 mg) by mouth in the morning. 30 tablet 11 furosemide (Lasix) 20 mg tablet Take 2 tablets (40 mg) by mouth in the morning. (Patient taking differently: Take 40 mg by mouth in the morning. Sometimes takes an extra tablet in the afternoon) 30 tablet 0 gabapentin (Neurontin) 300 mg capsule TAKE 3 CAPSULES BY MOUTH IN THE MORNING, IN THE EVENING AND BEFORE BEDTIME metoprolol succinate XL (Toprol-XL) 25 mg 24 hr tablet Take 1 tablet (25 mg) by mouth in the morning. Do not crush or chew. 30 tablet 11 omeprazole (PriLOSEC) [address] capsule Take 40 mg by mouth before breakfast. potassium chloride CR (Klor-Con M10) 10 mEq ER tablet Take 2 tablets (20 mEq) by mouth in the morning and at bedtime. Do not crush or chew. 120 tablet 11 rivaroxaban (Xarelto) 20 mg tablet Take 1 tablet (20 mg) by mouth daily with evening meal. Take with food. (Patient taking differently: Take 20 mg by mouth in the morning. Take with food.) 90 tablet 3 sacubitril-valsartan (Entresto) 24-26 mg tablet Take 1 tablet by mouth in the morning and at bedtime. 60 tablet 12 zolpidem (Ambien) 10 mg tablet TAKE 1 TABLET BY MOUTH NEEDED AT BEDTIME FOR SLEEP ROS: Review of Systems Constitutional: Positive for malaise/fatigue. Cardiovascular: Positive for dyspnea on exertion (improving) and leg swelling. Respiratory: Positive for shortness of breath (improving). Skin: Positive for color change. All other systems reviewed and are negative. Physical Exam: Constitutional General Appearance: well-nourished, well-developed, appears stated age Level of Distress: comfortable Psychiatric Mental Status: alert, normal affect Orientation: oriented to time, place, and person Insight: good judgement (more content not included)... [facility] NURSNOTEon 04-30-2024 NURSNOTE RN educated pt on d/ c instructions. RN encouraged pt to voice any questions or concerns. Pt verbalizes no questions or concerns at this time. Pt was wheeled off of unit with all of belongings. [facility] Office Visiton 04-10-2024 Follow-up visit [id number] Jonathan Collado 1955 M Date Provider Department Center 04/10/2024 DAVE RODRIGUEZ NATA Alexandra Vinny Family History Problem Relation Age of Onset Coronary artery disease Mother Coronary artery disease Father Family Status - Relation Status Age at Mother Father Level of Service:96348 UT OFFICE/OUTPATIENT NEW MODERATE MDM 45 MINUTES [facility] ANESon 03-29-2024 ANES ----- ----- Attestation signed by Gama Duncan MD at 03/29/2024 8:24 AM Gama Duncan MD, MPH, [facility], [facility], [facility] Interventional Cardiology Pager Email: [email or web address] ----- Patient: Indio Wallace Tobias Procedure Information Date/Time: 03/29/24 1230 Procedure: Coronary angiography Location: [facility] FIRE ALARM DISPATCHER 2 [address] / [facility] (Cath) Providers: Gama Duncan MD Clinical information reviewed: Tobacco Allergies Meds Med Hx Surg Hx Fam Hx Physical Exam Airway Mallampati: II Cardiovascular Rhythm: regular Rate: normal Dental Pulmonary - normal exam Abdominal - normal exam Anesthesia Plan ASA 3 other (Conscious sedation) intravenous induction Anesthetic plan and risks discussed with patient. Use of blood products discussed with patient who consented to blood products. Plan discussed with attending. Additional Equipment Requests [facility] HPon 03-29-2024 HP ----- ----- Attestation signed by Gama Duncan MD at 03/29/2024 8:25 AM By using the attestations below, the signing clinician agrees that I have read and verify that the documentation has been personally reviewed by me and ensure that the documentation accurately reflects the encounter. GC: I personally saw this patient on the day of the encounter, performed the rodriguez portion(s) of the service and participated in the management and confirm the resident's documentation. Please note there may be an additional personal documentation from me. Gama Duncan MD, MPH, [facility], [facility], [facility] Interventional Cardiology Pager Email: [email or web address] ----- H&P reviewed. The patient was examined and there are no changes to the H&P. 68 year old make with PMH significant for CAD s/p OM, HTN, HFpEF, DVT, obesity s/p bariatric surgery who was seen in clinic for recent drop in EF seen on HI which he underwent for cardioversopn. Patient also had a recent ED visit for chest pain but was found to be 2/2 Afib with RVR. Given his recent acute drop in EF and other co-morbidities patient is here for angiogram to evaluate for etiology for the sudden drop. We will also look for any progression of CAD and look for patency for previously placed stents. Patient was also in acute systolic HF exacerbation and has been having SOB and BLLE, we will also do RHC to measure filling pressures. I explained the risks and benefits of the procedure. He has o planned surgery, or any bleeding episodes recently. He would like to proceed. [facility] NURSNOTEon 03-29-2024 RIANNOTE RN educated pt on d/ c instructions. RN encouraged pt to voice any questions or concerns. Pt verbalizes no questions or concerns at this time. Pt was wheeled off of unit with all of belongings. [facility] 37on 03-08-2024 37 *Stop diltiazem *Start -metoprolol succinate 25mg daily -Entresto 24/26mg BID -Farxiga 10mg daily *Reduce lasix to 40mg daily *Follow-up lab work in 2 weeks *[facility] will call you to schedule a cardiac cath *Follow-up with the electrician yard of the heart after your cath [facility] HPon 03-08-2024 HP Cardiovascular Medic [facility] SUBJECTIVE Chief Complaint Patient presents with Atrial [...] work at 3 jobs. He works at [employer] and eats their food when he drinks. He is limiting his fluid intake to 60oz. Denies CP, dyspnea, orthopnea, PND, palpitations, dizziness/LH. ------ He was recently in the ER for [...] working 3 jobs. He started working a [employer] last month, this is when he noticed the weight gain. He admits to eating food at [employer] and drinking more pop that he typically [...] Cigarettes Smokeless tobacco (more content not included)... [facility] Office Visiton 03-08-2024 Follow-up visit [id number] Jonathan Collado L 1955 M Date Provider Department Center 03/08/2024 FAB PATTERSON Family History Problem Relation Age of Onset Coronary artery disease Mother Coronary artery disease Father Family Status - Relation Status Age at Mother Father Level of Service:52795 UT OFFICE/OUTPATIENT ESTABLISHED HIGH MDM 40 MIN Reason for Visit and Comments: Atrial Fibrillation [80] Congestive Heart Failure [127] Hypertension [246980] [facility] Mony 02-29-2024 ANES ----- ----- Attestation signed by Ellen Taveras MD at 03/15/2024 12:59 PM I personally saw and examined the patient on the same date of service as resident/fellow Dr Bai. I agree with the documentation, except for any edits/updates below. Ellen Taveras MD ----- Patient: Indio Collado Procedure Information Date/Time: 02/29/24 1030 Procedure: Cardioversion Location: [facility] FIRE ALARM DISPATCHER HOLDING ROOM / [facility] (Cath) Providers: Scar Willis MD Clinical information reviewed: Allergies Physical Exam Airway Mallampati: III TM distance: >3 FB Neck ROM: full Cardiovascular Rhythm: regular Rate: normal Dental Pulmonary Abdominal Anesthesia Plan ASA 3 Anesthetic plan and risks discussed with patient. Use of blood products discussed with patient who. Plan discussed with attending. Additional Equipment Requests [facility] NURSNOTEon 02-29-2024 NURSNOTE Bedside swallow stud y completed and passed. [facility] NURSNOTE RN educated pt on d/ c instructions. RN encouraged pt to voice any questions or concerns. Pt verbalizes no questions or concerns at this time. Pt was wheeled off of unit with all of belongings. [facility] POTASSIUMon 02-29-2024 Potassium [Moles/Vol] 3.7 mmol/L Normal 3.5-5.1 [facility] Comment on above: Performed By: #### L [id number] ####[facility] (BEAKER)[address] [place] [address] 36on 02-15-2024 36 Please let him know I also ordered for potassium supplements as his potassium level was low when he was recently in the hospital and the lasix can lower this even more so the supplements are to help this. Please also have him get a BMP either the day before or morning of his appt next week. Thanks! [facility] Telephoneon 02-15-2024 Telephone [id number] Jonathan Collado 1955 M Date Provider Department Center 02/15/2024 Elliott-FAB CORTEZaretiffanie Martinez. Family History Problem Relation Age of Onset Coronary artery disease Mother Coronary artery disease Father Family Status - Relation Status Age at Mother Father [facility] 37on 02-14-2024 37 *Increase lasix to 4 0mg twice daily *Hold fludrocortisone *Increase Xarelto to 20mg daily (you can take 2 tablets of 10mg) *Limit your fluid intake to no more than 2 liters a day *Limit your sodium intake, no more than 2500mg/daily *[facility] will call you to schedule a cardioversion *[facility] will call you to schedule a stress test and ECHO Normal [facility] HPon 02-14-2024 Cardiovascular Medic ine [facility] SUBJECTIVE Chief Complaint Patient presents with Atrial [...] working 3 jobs. 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 He admits to eating food at [employer] and drinking more pop that he typically does. He admits he needs to slow down with his jobs. He will likely quit [employer]. He notes that since his gastric bypass [...] with unspecified severity (CMS/HCC) Paroxysmal atrial fibrillation ([facility]/HCC) Past Medical History: Diagnosis Date Abnormal ECG Arrhythmia Atrial fibrillation (CMS/HCC) CHF (congestive heart failure) ([facility]/HCC) Coronary artery disease Deep vein thrombosis (CMS/HCC) [...] CD (Cardizem (more content not included)... Normal [facility] Office Visiton 02-14-2024 Follow-up visit [id number] ColladoJonathan L 1955 Date Provider Department [place] 02/14/2024 FAB PATTERSON NATA [place] Family History Problem Relation Age of Onset Coronary artery disease Mother Coronary artery disease Father Family Status - Relation Status Age at Mother Father Level of Service:56092 UT OFFICE/OUTPATIENT ESTABLISHED MOD MDM 30 MIN Reason for Visit and Comments: Atrial Fibrillation [80] Coronary Artery Disease [187] Normal [facility] Orders Onlyon 02-14-2024 Orders Only [id number] ColladoJonathan L 1955 [facility] Provider Department [place] 02/14/2024 MILADIS MENCHACA NATA [facility] Family History Problem Relation Age of Onset Coronary artery disease Mother Coronary artery disease Father Family Status - Relation Status Age at Mother Father Normal [facility] CBC AND AUTO DIFFon 01-28-20 24 ABSOLUTE BASOPHIL 0.1 X10E9/L Normal 0.0-0.2 [facility] Comment on above: Performed By: #### C BCA, CMP, PINR, 70896-8, 72218-6, 64211-6, 93881-7 #### [facility] ([id number]) [address] [place] [address] 74465 ABSOLUTE NEUTROPHIL 8.5 X10E9/L High 1.5-6.6 [facility] Comment on above: Performed By: #### C BCA, CMP, PINR, 97585-5, 52608-3, 16371-9, 48964-2 #### [facility] ([id number]) [address] [place] [address] 44324 Basophils/100 WBC (Bld) 0.6 % Normal [facility] Comment on above: Performed By: #### C BCA, CMP, PINR, 31098-6, 47788-6, 18239-0, 09964-6 #### [facility] ([id number]) [address] [place] [address] 89593 Eosinophils (Bld) [#/Vol] 0.1 10*3/uL Normal 0.0-0.4 [facility] Comment on above: Performed By: #### C BCA, CMP, PINR, 25571-0, 25858-6, 33004-3, 51188-1 #### [facility] ([id number]) [address] [place] [address] 49839 Eosinophils/100 WBC (Bld) 0.5 % Normal [facility] Comment on above: Performed By: #### C BCA, CMP, PINR, 22865-6, 45923-2, 62395-6, 87554-0 #### [facility] ([id number]) [address] [place] [address] 33054 Erythrocyte distribution width (RBC) [Ratio] 16.5 % High 11.5-15.0 [facility] Comment on above: Performed By: #### C BCA, CMP, PINR, 50986-6, 47675-3, 87859-7, 44697-3 #### [facility] ([id number]) [address] [place] [address] 70548 Hematocrit (Bld) [Volume fraction] 35.7 % Low 39-49 [facility] Comment on above: Performed By: #### C BCA, CMP, PINR, 73216-7, 38376-1, 04260-5, 25283-3 #### [facility] ([id number]) [address] [place] [address] 30263 Hemoglobin (Bld) [Mass/Vol] 12.1 g/dL Low 13.0-17.0 [facility] Comment on above: Performed By: #### C BCA, CMP, PINR, 30573-4, 61273-3, 03832-8, 60367-5 #### [facility] ([id number]) [address] [place] [address] 26742 Lymphocytes (Bld) [#/Vol] 1.2 10*3/uL Normal 1.0-3.5 [facility] Comment on above: Performed By: #### C BCA, CMP, PINR, 01166-9, 88794-4, 44615-4, 69457-1 #### [facility] ([id number]) [address] [place] [address] 25653 Lymphocytes/100 WBC (Bld) 11.6 % Normal [facility] Comment on above: Performed By: #### C BCA, CMP, PINR, 27584-3, 40748-5, 43854-0, 98785-9 #### [facility] ([id number]) [address] [place] [address] 68170 MCH (RBC) [Entitic mass] 28.0 pg Normal 27-34 [facility] Comment on above: Performed By: #### C BCA, CMP, PINR, 61143-8, 58526-7, 44830-2, 17108-8 #### [facility] ([id number]) [address] [place] [address] 75453 MCHC (RBC) [Mass/Vol] 34.0 g/dL Normal 32-36 [facility] Comment on above: Performed By: #### C BCA, CMP, PINR, 67090-9, 01861-7, 84425-2, 97378-1 #### [facility] ([id number]) [address] [place] [address] 19466 MCV (RBC) [Entitic vol] 82 fL Normal 80-100 [facility] Comment on above: Performed By: #### C BCA, CMP, PINR, 36488-0, 93489-6, 29468-2, 30855-6 #### [facility] ([id number]) [address] [place] [address] 76863 Monocytes (Bld) [#/Vol] 0.5 10*3/uL Normal 0-0.9 [facility] Comment on above: Performed By: #### C BCA, CMP, PINR, 68721-6, 24546-2, 08957-8, 63528-7 #### [facility] ([id number]) [address] [place] [address] 74967 Monocytes/100 WBC (Bld) 5.1 % Normal [facility] Comment on above: Performed By: #### C BCA, CMP, PINR, 43408-4, 12251-3, 71683-0, 16390-9 #### [facility] ([id number]) [address] [place] [address] 76658 Neutrophils/100 WBC (Bld) 82.2 % Normal [facility] Comment on above: Performed By: #### C BCA, CMP, PINR, 74404-8, 47557-3, 76731-4, 58932-0 #### [facility] ([id number]) [address] [place] [address] 32503 Platelet mean volume (Bld) [Entitic vol] 8.7 fL Normal 7-12 [facility] Comment on above: Performed By: #### C BCA, CMP, PINR, 03813-9, 49517-4, 75581-4, 21141-7 #### [facility] ([id number]) [address] [place] [address] 58685 Platelets (Bld) [#/Vol] 237 10*3/uL Normal 150-450 [facility] Comment on above: Performed By: #### C BCA, CMP, PINR, 82414-5, 70099-6, 58300-8, 49074-7 #### [facility] ([id number]) [address] [place] [address] 70694 RBC COUNT 4.33 X10E12/L Normal 4.10-5.70 [facility] Comment on above: Performed By: #### C BCA, CMP, PINR, 77161-1, 20212-7, 44920-4, 37769-0 #### [facility] ([id number]) [address] [place] [address] 53933 WBC (Bld) [#/Vol] 10.4 10*3/uL Normal 4.0-11.0 [facility] Comment on above: Performed By: #### C BCA, CMP, PINR, 05012-1, 35680-7, 04150-6, 53159-0 #### [facility] ([id number]) [address] [place] [address] 39779 COMPREHENSIVE METABOLIC PANE Carl 01-28-2024 Albumin [Mass/Vol] 3.4 g/dL Normal 3.2-5.3 [facility] Comment on above: Performed By: #### C BCA, CMP, PINR, 33591-6, 23192-9, 57395-5, 77168-5 #### [facility] ([id number]) [address] [place] [address] 20106 ALP [Catalytic activity/Vol] 109 U/L Normal 39-130 [facility] Comment on above: Performed By: #### C BCA, CMP, PINR, 76410-1, 45813-5, 13591-1, 91489-6 #### [facility] ([id number]) [address] [place] [address] 09885 ALT [Catalytic activity/Vol] 24 U/L Normal 0-40 [facility] Comment on above: Performed By: #### C BCA, CMP, PINR, 33626-2, 46021-2, 35091-8, 23335-2 #### [facility] ([id number]) [address] [place] [address] 40678 Anion gap [Moles/Vol] 7 mmol/L Normal 5-15 [facility] Comment on above: Performed By: #### C BCA, CMP, PINR, 52909-3, 06346-5, 65706-9, 56756-5 #### [facility] ([id number]) [address] [place] [address] 06762 AST [Catalytic activity/Vol] 19 U/L Normal 0-41 [facility] Comment on above: Performed By: #### C BCA, CMP, PINR, 86954-6, 52751-9, 49728-6, 28652-1 #### [facility] ([id number]) [address] [place] [address] 57038 Bilirubin [Mass/Vol] 2.5 mg/dL High 0.3-1.2 [facility] Comment on above: Performed By: #### C BCA, CMP, PINR, 96522-7, 48569-2, 35725-7, 92705-0 #### [facility] ([id number]) [address] [place] [address] 96009 Calcium [Mass/Vol] 7.8 mg/dL Low 8.5-10.5 [facility] Comment on above: Performed By: #### C BCA, CMP, PINR, 13221-5, 00486-6, 73073-3, 62085-0 #### [facility] ([id number]) [address] [place] [address] 06871 Chloride [Moles/Vol] 103 mmol/L Normal 98-109 [facility] Comment on above: Performed By: #### C BCA, CMP, PINR, 11782-8, 67967-2, 03736-1, 23697-2 #### [facility] ([id number]) [address] [place] [address] 71002 CO2 [Moles/Vol] 24 mmol/L Normal 22-32 [facility] Comment on above: Performed By: #### C BCA, CMP, PINR, 69847-9, 00214-6, 91178-1, 55578-9 #### [facility] ([id number]) [address] [place] [address] 98385 Creatinine [Mass/Vol] 1.09 mg/dL Normal 0.70-1.20 [facility] Comment on above: Result Comment: METH OD TRACEABLE TO IDMS STANDARD Performed By: #### C BCA, CMP, PINR, 90278-1, 41304-4, 98736-4, 83035-6 #### [facility] ([id number]) [address] [place] [address] 39890 GFR/1.73 sq M.predicted among non-blacks MDRD (S/P/Bld) [Vol rate/Area] 74 mL/min/{1.73_m2} Normal >59 [facility] Comment on above: Result Comment: Reported eGFR is based on the CKD-EPI 2020 equation that does not use a race coefficient. Performed By: #### C BCA, CMP, PINR, 50862-0, 08166-2, 60320-4, 66503-8 #### [facility] ([id number]) [address] [place] [address] 91062 Glucose [Mass/Vol] 131 mg/dL High 65-99 [facility] Comment on above: Performed By: #### C BCA, CMP, PINR, 93153-8, 01483-5, 15556-0, 17619-4 #### [facility] ([id number]) [address] [place] [address] 32515 Potassium [Moles/Vol] 3.2 mmol/L Low 3.5-5.0 [facility] Comment on above: Performed By: #### C BCA, CMP, PINR, 12674-1, 79223-6, 88026-0, 20274-9 #### [facility] ([id number]) [address] [place] [address] 68943 Protein [Mass/Vol] 6.3 g/dL Normal 6.0-8.0 [facility] Comment on above: Performed By: #### C BCA, CMP, PINR, 57018-6, 74052-2, 52169-4, 68613-6 #### [facility] ([id number]) [address] [place] [address] 32481 Sodium [Moles/Vol] 134 mmol/L Normal 134-146 [facility] Comment on above: Performed By: #### C BCA, CMP, PINR, 38785-2, 95518-4, 03386-1, 77730-2 #### [facility] ([id number]) [address] [place] [address] 74713 Urea nitrogen [Mass/Vol] 22 mg/dL Normal 5-27 [facility] Comment on above: Performed By: #### C BCA, CMP, PINR, 04088-8, 05842-8, 20425-5, 74453-2 #### [facility] ([id number]) [address] [place] [address] 49881 MAGNESIUMon 01-28-2024 Magnesium [Mass/Vol] 1.9 mg/dL Normal 1.8-2.6 [facility] Comment on above: Performed By: #### C BCA, CMP, PINR, 05972-6, 37052-9, 68833-6, 46218-0 #### [facility] ([id number]) [address] [place] [address] 07311 Natriuretic peptide B [Mass/ Vol]on 01-28-2024 Natriuretic peptide B (Bld) [Mass/Vol] 320 pg/mL High <100.0 [facility] Comment on above: Performed By: #### C BCA, CMP, PINR, 59963-8, 99549-4, 60929-8, 68052-7 #### [facility] ([id number]) [address] [place] [address], [place] [address] PROTIME AND INRon 01-28-2024 INR Coag (PPP) [Relative time] 2.0 {INR} High 0.8-1.1 [facility] Comment on above: Performed By: #### C BCA, CMP, PINR, 59275-1, 25221-0, 54305-2, 01116-0 #### [facility] ([id number]) [address] [place] [address] 84999 PT Coag (PPP) [Time] 23.2 s High 9.8-13.2 [facility] Comment on above: Result Comment: NEW REFERENCE RANGE Performed By: #### C BCA, CMP, PINR, 61499-0, 76195-9, 35531-6, 97181-3 #### [facility] ([id number]) [address] [place] [address] 58738 SARS/FLU A+B/RSV by NAAT/Mol ecularon 01-28-2024 SARS/FLU [...] operators who are performing tests using either [employer] or [employer] systems and is limited to laboratories that [...] repeat. Fact Sheet for Healthcare Providers: https://www.fda.gov/media /177689/download Fact Sheet for Patients: https://www.fda.gov/media /140033/download Normal [facility] Comment on above: Performed By: #### C OVFLR #### [facility] ([id number]) [address] [place] [address] 30991 TROPONIN Ion 01-28-2024 Troponin I.cardiac [Mass/Vol] 0.03 ng/mL Normal 0.00-0.04 [facility] Comment on above: Performed By: #### C BCA, CMP, PINR, 08271-5, 79796-9, 67005-5, 17198-1 #### [facility] ([id number]) [address] [place] [address] 64435 XR CHEST 1 VWon 01-28-2024 XR CHEST [...] Carbajal MD on 01/28/2024 10:[address] [facility] aPTT Coag (PPP) [Time]on aPTT Coag (Bld) [Time] 46 s High 26-37 [facility] Comment on above: Result Comment: NEW REFERENCE RANGE Performed By: #### C BCA, CMP, PINR, 22528-1, 99169-0, 99506-4, 61776-0 #### [facility] ([id number]) [address] [place] [address], [place] [address] No Panel Informationon 12-06 Eva Sanchez DO 12/06/2023 9:57 AM L Inj/Asp: L glenohumeral on 12/06/2023 9:55 AM Indications: pain Details: 21 G needle, posterior approach Medications: 40 mg methylPREDNISolone acetate 40 MG/ML Procedure, treatment alternatives, risks and benefits explained, specific risks discussed. [facility] XR ANKLE LEFT (MIN 3 VIEWS)o n [...] Fredrick Babin DO 01/12/23 Final result Normal [facility] XR ANKLE LEFT (MIN 3 VIEWS)o n [...] Michael Reinoso DO 11/10/22 Final result Normal [facility] Creatinine W/GFR Point of Ca reon 11-09-2022 Creatinine [Mass/Vol] 0.87 mg/dL 0.51 - 1.19 mg/dL [facility] eGFR, POC mL/min/1.[address] [facility] Comment on above: Effective Jul 26, 2022 [...] renal tubular secretion. No Panel Informationon 11-[address] [facility] OPERATIVE REPORTon 3 OPERATIVE REPORT [address] [address] OPERATIVE REPORT PATIENT NAME: INDIO COLLADO : 1955 MED REC NO: [id number] ROOM: ACCOUNT NO: [id number] ADMIT DATE: 11/09/2022 PROVIDER: Fredrick Babin DATE OF PROCEDURE: 11/09/2022 PREOPERATIVE DIAGNOSIS: Medial wound, left ankle. POSTOPERATIVE DIAGNOSIS: Medial wound, left ankle. PROCEDURE: 1. Application of split-thickness skin graft to medial ankle wound measuring 5 x 4 cm. 2. Application of negative pressure wound VAC, left ankle. SURGEON: Fredrick Babin DO ELEMENTARY PRINCIPAL: Liss Matute DO, PGY-2 and Olga Lidia [...] my clinic in one week. FREDRICK BABIN RUSSELL/[email or web address] Doc#: [id number] CC: Normal [facility] POCT Glucoseon 11-09-2022 Glucose [Mass/Vol] 93 mg/dL 74 - 100 mg/dL [facility] POCT urea (BUN)on 11-09-2022 Urea nitrogen [Mass/Vol] 12 mg/dL 8 - 26 mg/dL [facility] Basic Metab w/rfx MGon 10-22 Anion gap [Moles/Vol] 9 mmol/L Normal 9-17 [facility] Comment on above: Performed By: #### B MPX #### [employer] [address] [place], [place] [address] [employer] Dean: Bret Vazquez MD Calcium [Mass/Vol] 8.1 mg/dL Low 8.6-10.4 [facility] Comment on above: Performed By: #### B MPX #### [facility] [place] [address] [employer] Dean: Bret Vazquez MD Chloride [Moles/Vol] 102 mmol/L Normal 98-107 [facility] Comment on above: Performed By: #### B MPX #### [facility] [employer] [facility] [place] [address] [employer] Dean: Bret Vazquez MD CO2 [Moles/Vol] 26 mmol/L Normal 20-31 [facility] Comment on above: Performed By: #### B MPX #### [facility] [employer] [address] [place] [address] [employer] Dean: Bret Vazquez MD Creatinine [Mass/Vol] 0.59 mg/dL Low 0.70-1.20 [facility] Comment on above: Performed By: #### B MPX #### [facility] [employer] [address] [place] [address] [employer] Dean: Bret Vazquez MD GFR/1.73 sq M.predicted among non-blacks MDRD (S/P/Bld) [Vol rate/Area] mL/min/{1.73_m2} Normal >60 [facility] Comment on above: Result Comment: Effective Jul [...] secretion. Performed By: #### B MPX #### [facility] [employer] [address] [place] [address] [employer]: Bret Vazquez MD Glucose [Mass/Vol] 93 mg/dL Normal 70-99 [facility] Comment on above: Performed By: #### B MPX #### [facility] [employer] [address] [place] [address] [employer] Dean: Bret Vazquez MD Potassium [Moles/Vol] 4.3 mmol/L Normal 3.7-5.3 [facility] Comment on above: Performed By: #### B MPX #### [address] [address] [employer] Dean: Bret Vazquez MD Sodium [Moles/Vol] 137 mmol/L Normal 135-144 [facility] Comment on above: Performed By: #### B MPX #### [address] [address] [employer] Dean: Bret Vazquez MD Urea nitrogen [Mass/Vol] 9 mg/dL Normal 8-23 [facility] Comment on above: Performed By: #### B MPX #### [address] [address] [employer] Dean: Bret Vazquez MD CBC with Diffon 10-20-2022 Abs. Basophil 0.04 k/uL Normal 0.00-0.20 [facility] Comment on above: Performed By: #### E RTPF, CK, ECENZ, VD25 #### [place] [address] [employer] Dean: Bret Vazquez MD Abs.Imm.Granulocyte <0.03 Normal 0.00-0.30 [facility] Comment on above: Performed By: #### E RTPF, CK, ECENZ, VD25 #### [place] [address] [employer] Dean: Bret Vazquez MD Abs.Neutrophil (Seg) 4.45 k/uL Normal 1.50-8.10 [facility] Comment on above: Performed By: #### E RTPF, CK, ECENZ, VD25 #### [place] [address] [employer] Dean: Bret Vazquez MD Basophils/100 WBC (Bld) 1 % Normal 0-2 [facility] Comment on above: Performed By: #### E RTPF, CK, ECENZ, VD25 #### [address] [address] [employer] Dean: Bret Vazquez MD Eosinophils (Bld) [#/Vol] 0.11 10*3/uL Normal 0.00-0.44 [facility] Comment on above: Performed By: #### E RTPF, CK, ECENZ, VD25 #### [address] [address] [employer] Dean: Bret Vazquez MD Eosinophils/100 WBC (Bld) 2 % Normal 1-4 [facility] Comment on above: Performed By: #### E RTPF, CK, ECENZ, VD25 #### [place] [address] [employer] Dean: Bret Vazquez MD Erythrocyte distribution width (RBC) [Ratio] 14.5 % High 11.8-14.4 [facility] Comment on above: Performed By: #### E RTPF, CK, ECENZ, VD25 #### [place] [address] [employer] Dean: Bret Vazquez MD Hematocrit (Bld) [Volume fraction] 33.5 % Low 40.7-50.3 [facility] Comment on above: Performed By: #### E RTPF, CK, ECENZ, VD25 #### [place] [address] [employer] Dean: Bret Vazquez MD Hemoglobin (Bld) [Mass/Vol] 10.8 g/dL Low 13.0-17.0 [facility] Comment on above: Performed By: #### E RTPF, CK, ECENZ, VD25 #### [address] [address] [employer] Dean: Bret Vazquez MD Immature granulocytes/100 WBC (Bld) 0 % Normal 0 [facility] Comment on above: Performed By: #### E RTPF, CK, ECENZ, VD25 #### [address] [address] [employer] Dean: Bret Vazquez MD Lymphocytes (Bld) [#/Vol] 1.28 10*3/uL Normal 1.10-3.70 [facility] Comment on above: Performed By: #### E RTPF, CK, ECENZ, VD25 #### [address] [address] [employer] Dean: Bret Vazquez MD Lymphocytes/100 WBC (Bld) 19 % Low 24-43 [facility] Comment on above: Performed By: #### E RTPF, CK, ECENZ, VD25 #### [address] [address] [employer] Dean: Bret Vazquez MD MCH (RBC) [Entitic mass] 29.0 pg Normal 25.2-33.5 [facility] Comment on above: Performed By: #### E RTPF, CK, ECENZ, VD25 #### [address] [address] [employer] Dean: Bret Vazquez MD MCHC (RBC) [Mass/Vol] 32.2 g/dL Normal 28.4-34.8 [facility] Comment on above: Performed By: #### E RTPF, CK, ECENZ, VD25 #### [address] [address] [employer] Dean: Bret Vazquez MD MCV (RBC) [Entitic vol] 90.1 fL Normal 82.6-102.9 [facility] Comment on above: Performed By: #### E RTPF, CK, ECENZ, VD25 #### [address] [address] [employer] Dean: Bret Vazquez MD Monocytes (Bld) [#/Vol] 0.70 10*3/uL Normal 0.10-1.20 [facility] Comment on above: Performed By: #### E RTPF, CK, ECENZ, VD25 #### [address] [address] [employer] Dean: Bret Vazquez MD Monocytes/100 WBC (Bld) 11 % Normal 3-12 [facility] Comment on above: Performed By: #### E RTPF, CK, ECENZ, VD25 #### [address] [address] [employer] Dean: Bret Vazquez MD Neutrophil (Seg) 67 % High 36-65 [facility] Comment on above: Performed By: #### E RTPF, CK, ECENZ, VD25 #### [address] [address] [employer] Dean: Bret Vazquez MD NRBC Automated 0.0 per 100 WBC Normal 0.0 [facility] Comment on above: Performed By: #### E RTPF, CK, ECENZ, VD25 #### [address] [address] [employer] Dean: Bret Vazquez MD Platelet mean volume (Bld) [Entitic vol] 10.3 fL Normal 8.1-13.5 [facility] Comment on above: Performed By: #### E RTPF, CK, ECENZ, VD25 #### [address] [address] [employer] Dean: Bret Vazquez MD Platelets (Bld) [#/Vol] 236 10*3/uL Normal 138-453 [facility] Comment on above: Performed By: #### E RTPF, CK, ECENZ, VD25 #### [address] [address] [employer] Dean: Bret Vazquez MD RBC (Bld) [#/Vol] 3.72 10*6/uL Low 4.21-5.77 [facility] Comment on above: Performed By: #### E RTPF, CK, ECENZ, VD25 #### [address] [address] [employer] Dean: Bret Vazquez MD RBC morphology finding Nom (Bld) ANISOCYTOSIS PRESENT Normal [facility] Comment on above: Performed By: #### E RTPF, CK, ECENZ, VD25 #### [address] [address] [employer]: Bret Vazquez MD WBC (Bld) [#/Vol] 6.6 10*3/uL Normal 3.5-11.3 [facility] Comment on above: Performed By: #### E RTPF, CK, ECENZ, VD25 #### [address] [address] [employer]: Bret Vazquez MD Comp Metabolic Pr/rfx MGon 1 12-21-2021 Albumin [Mass/Vol] 2.6 g/dL Low 3.5-5.2 [facility] Comment on above: Performed By: #### E RTPF, CK, ECENZ, VD25 #### [address] [address] [employer]: Bret Vazquez MD Albumin/Glob Ratio 1.2 Normal 1.0-2.5 [facility] Comment on above: Performed By: #### E RTPF, CK, ECENZ, VD25 #### [address] [address] [employer]: Bret Vazquez MD Alkaline Phos 104 U/L Normal 40-129 [facility] Comment on above: Performed By: #### E RTPF, CK, ECENZ, VD25 #### [address] [address] [employer]: Bret Vazquez MD ALT [Catalytic activity/Vol] 7 U/L Normal 5-41 [facility] Comment on above: Performed By: #### E RTPF, CK, ECENZ, VD25 #### [address] [address] [employer]: Bret Vazquez MD Anion gap [Moles/Vol] 7 mmol/L Low 9-17 [facility] Comment on above: Performed By: #### E RTPF, CK, ECENZ, VD25 #### [address] [address] [employer]: Bret Vazquez MD AST [Catalytic activity/Vol] 13 U/L Normal <40 [facility] Comment on above: Performed By: #### E RTPF, CK, ECENZ, VD25 #### [address] [address] [employer] Dean: Bret Vazuqez MD Bilirubin [Mass/Vol] 0.9 mg/dL Normal 0.3-1.2 [facility] Comment on above: Performed By: #### E RTPF, CK, ECENZ, VD25 #### [address] [address] [employer] Dean: Bret Vazquez MD Calcium [Mass/Vol] 8.0 mg/dL Low 8.6-10.4 [facility] Comment on above: Performed By: #### E RTPF, CK, ECENZ, VD25 #### [address] [address] [employer] Dean: Bret Vazquez MD Chloride [Moles/Vol] 103 mmol/L Normal 98-107 [facility] Comment on above: Performed By: #### E RTPF, CK, ECENZ, VD25 #### [address] [address] [employer] Dean: Bret Vazquez MD CO2 [Moles/Vol] 25 mmol/L Normal 20-31 [facility] Comment on above: Performed By: #### E RTPF, CK, ECENZ, VD25 #### [address] [address] [employer] Dean: Bret Vazquez MD Creatinine [Mass/Vol] 0.67 mg/dL Low 0.70-1.20 [facility] Comment on above: Performed By: #### E RTPF, CK, ECENZ, VD25 #### [address] [address] [employer] Dean: Bret Vazquez MD GFR/1.73 sq M.predicted among non-blacks MDRD (S/P/Bld) [Vol rate/Area] mL/min/{1.73_m2} Normal >60 [facility] Comment on above: Result Comment: Effective Jul [...] #### E RTPF, CK, ECENZ, VD25 #### [address] [address] [employer] Dean: Bret Vazquez MD Glucose [Mass/Vol] 99 mg/dL Normal 70-99 [facility] Comment on above: Performed By: #### E RTPF, CK, ECENZ, VD25 #### [address] [address] [employer] Dean: Bret Vazquez MD Potassium [Moles/Vol] 4.3 mmol/L Normal 3.7-5.3 [facility] Comment on above: Performed By: #### E RTPF, CK, ECENZ, VD25 #### [facility] [address] [place] [address] [employer] Dean: Bret Vazquez MD Protein [Mass/Vol] 4.7 g/dL Low 6.4-8.3 [facility] Comment on above: Performed By: #### E RTPF, CK, ECENZ, VD25 #### [facility] [address] [place] [address] [employer] Dean: Bret Vazquez MD Sodium [Moles/Vol] 135 mmol/L Normal 135-144 [facility] Comment on above: Performed By: #### E RTPF, CK, ECENZ, VD25 #### [facility] [address] [place] [address] [employer] Dean: Bret Vazquez MD Urea nitrogen [Mass/Vol] 11 mg/dL Normal 8-23 [facility] Comment on above: Performed By: #### E RTPF, CK, ECENZ, VD25 #### [facility] [address] [place] [address] [employer] Dean: Bret Vazquez MD XR ANKLE LEFT (MIN [...] Peter Mosquera DO 10/20/22 Final result Normal [facility] FLUORO FOR SURGICAL PROCEDUR ESon 10-19-2022 FLUORO FOR SURGICAL PROCEDURES Radiology exam is complete. No Radiologist dictation. Please follow up with ordering provider. Final result Normal [facility] OPERATIVE REPORTon OPERATIVE REPORT [address] [id number] OPERATIVE REPORT PATIENT NAME: INDIO COLLADO : 1955 MED REC NO: [id number] ROOM: 0238 ACCOUNT NO: [id number] ADMIT DATE: 10/19/2022 PROVIDER: Fredrick Babin DATE [...] tissue from the fracture and then using [id number] clamps as well as K-wires, achieved reduction. [...] Integra glycosami (more content not included)... Normal [facility] XR ANKLE LEFT (MIN 3 VIEWS)o n [...] Dallin Pineda MD 10/19/22 Final result Normal [facility] Aerobic Cultureon 09-27-2022 Aerobic Culture ORGANISM: Enterococc [...] RESISTANT TO ALL B-LACTAM DRUGS. PERFORMED BY: [place] [address] PATHOLOGIST [employer]ASK[employer] COACH XU TAPIA M.D. [facility] Comment on above: Performed By: #### G LUBRIAN #### Point of Care testing , Anaerobic cultureOrdered By: Molly Rivera on 09-27-2022 Bacteria identified Anaer cx Nom (Unsp spec) [facility] Bacteria identified Aer cx N om (Unsp spec)Ordered By: Molly Rivera on 09-27-2022 Aerobic Culture Enterococcus faecalis [facility] Basic Metabolic Panelon Anion gap [Moles/Vol] 10.1 mmol/L Normal 6.0-15.0 [facility] Comment on above: Performed By: #### C MP, CBC, PAB #### [facility] [address] [place] [address] [place] Calcium [Mass/Vol] 8.0 mg/dL Low 8.2-10.2 [facility] Comment on above: Performed By: #### C MP, CBC, PAB #### [facility] [address] [place] [address] [place] Chloride [Moles/Vol] 105 mmol/L Normal 95-114 [facility] Comment on above: Performed By: #### C MP, CBC, PAB #### [facility] [address] [place] [address] [place] CO2 [Moles/Vol] 27.1 mmol/L Normal 22.0-30.0 [facility] Comment on above: Performed By: #### C MP, CBC, PAB #### [facility] [address] Creatinine [Mass/Vol] 0.72 mg/dL Normal 0.64-1.27 [facility] Comment on above: Performed By: #### C MP, CBC, PAB #### [facility] [address] [place] [address] [place] Creatinine Clr Calc Pharmacy 108.46 [facility] Comment on above: Result Comment: PERF ORMED BY: [place] [address] PATHOLOGIST [employer] XU TAPIA M.D. Performed By: #### C MP, CBC, PAB #### [address] Estimated GFR ( Marie > 60 [facility] Comment on above: Result Comment: GFR estimated reference range: According to KDOQI guidelines, <60 ml/min/1.73m2 is sufficient to diagnose a patient with chronic kidney disease. Performed By: #### C MP, CBC, PAB #### [facility] [address] Estimated GFR (Non- Am > 60 [facility] Comment on above: Performed By: #### C MP, CBC, PAB #### [address] Glucose [Mass/Vol] 90 mg/dL Normal 70-100 [facility] Comment on above: Result Comment: [place] Glucose Reference Range is dependent on time and content of last meal. Glucose of more than 200 mg/dL in a nonstressed, ambulatory subject supports the diagnosis of Diabetes Mellitus. ADA recommended reference range Performed By: #### C MP, CBC, PAB #### [facility] [address] Potassium [Moles/Vol] 4.2 mmol/L Normal 3.5-5.1 [facility] Comment on above: Performed By: #### C MP, CBC, PAB #### [facility] [address] Sodium [Moles/Vol] 138 mmol/L Normal 136-146 [facility] Comment on above: Performed By: #### C MP, CBC, PAB #### [facility] [address] Urea nitrogen [Mass/Vol] 9 mg/dL Normal 9-23 [facility] Comment on above: Performed By: #### C MP, CBC, PAB #### [facility] [address] Basophils Auto (Bld) [#/Vol] Ordered By: Gordon Smith on 09-27-2022 Basophils (Bld) [#/Vol] 0.1 10*3/uL 0.0-0.2 [facility] Basophils/100 WBC Auto (Bld) Ordered By: Gordon Smith on 09-27-2022 Basophils/100 WBC (Bld) 1.0 % . [facility] Complete Blood Count Auto Di ffon 09-27-2022 Basophils (Bld) [#/Vol] 0.1 10*3/uL Normal 0.0-0.2 [facility] Comment on above: Result Comment: PERF ORMED BY: [place] [address] PATHOLOGIST [employer] XU TAPIA M.D. Performed By: #### C MP, CBC, PAB #### [place] [address] [place] Basophils/100 WBC (Bld) 1.0 % Normal . [facility] Comment on above: Performed By: #### C MP, CBC, PAB #### [facility] [address] [place] [address] [place] Eosinophils (Bld) [#/Vol] 0.3 10*3/uL Normal 0.0-0.45 [facility] Comment on above: Performed By: #### C MP, CBC, PAB #### [facility] [address] [place] [address] [place] Eosinophils/100 WBC (Bld) 4.8 % Normal . [facility] Comment on above: Performed By: #### C MP, CBC, PAB #### [facility] [address] Erythrocyte distribution width (RBC) [Ratio] 15.8 % High 12.0-14.8 [facility] Comment on above: Performed By: #### C MP, CBC, PAB #### [facility] [address] Hematocrit (Bld) [Volume fraction] 29.5 % Low 38.8-50.0 [facility] Comment on above: Performed By: #### C MP, CBC, PAB #### [address] Hemoglobin (Bld) [Mass/Vol] 9.5 g/dL Low 13.0-17.0 [facility] Comment on above: Performed By: #### C MP, CBC, PAB #### [address] Lymphocytes (Bld) [#/Vol] 1.1 10*3/uL Normal 1.00-4.8 [facility] Comment on above: Performed By: #### C MP, CBC, PAB #### [address] Lymphocytes/100 WBC (Bld) 17.0 % Normal . [facility] Comment on above: Performed By: #### C MP, CBC, PAB #### [address] MCH (RBC) [Entitic mass] 30.4 pg Normal 27.5-35.2 [facility] Comment on above: Performed By: #### C MP, CBC, PAB #### [address] MCV (RBC) [Entitic vol] 94.2 fL Normal 83.5-101 [facility] Comment on above: Performed By: #### C MP, CBC, PAB #### [address] Mean Corpuscular HGB Conc 32.3 g/dL Low 32.5-35.6 [facility] Comment on above: Performed By: #### C MP, CBC, PAB #### [facility] [address] [place] [address] [place] Monocytes (Bld) [#/Vol] 0.6 10*3/uL Normal 0.0-0.8 [facility] Comment on above: Performed By: #### C MP, CBC, PAB #### [facility] [address] [place] [address] [place] Monocytes/100 WBC (Bld) 9.6 % Normal . [facility] Comment on above: Performed By: #### C MP, CBC, PAB #### [facility] [address] Neutrophils (Bld) [#/Vol] 4.3 10*3/uL Normal 1.8-7.7 [facility] Comment on above: Performed By: #### C MP, CBC, PAB #### [facility] [address] Neutrophils/100 WBC (Bld) 67.6 % Normal . [facility] Comment on above: Performed By: #### C MP, CBC, PAB #### [place] [address] [place] NRBC% 0.0 /100{WBC} Normal 0-0.5 [facility] Comment on above: Performed By: #### C MP, CBC, PAB #### [facility] [address] [place] [address] [place] Platelet mean volume (Bld) [Entitic vol] 8.2 fL Normal 6.6-10.1 [facility] Comment on above: Performed By: #### C MP, CBC, PAB #### [facility] [address] [place] [address] [place] Platelets (Bld) [#/Vol] 352 10*3/uL Normal 150-450 [facility] Comment on above: Performed By: #### C MP, CBC, PAB #### [facility] [address] [place] [address] [place] RBC (Bld) [#/Vol] 3.13 10*6/uL Low 3.90-5.60 [facility] Comment on above: Performed By: #### C MP, CBC, PAB #### [facility] [address] [place] [address] [place] WBC (Bld) [#/Vol] 6.3 10*3/uL Normal 4.1-10.5 [facility] Comment on above: Performed By: #### C MP, CBC, PAB #### [facility] [address] Creatinine and Glomerular fi ltration rate.predicted panel (S/P/Bld)Ordered By: Gordon Smith on 09-27-2022 Creatinine [Mass/Vol] 0.72 mg/dL 0.64-1.27 [facility] Eosinophils Auto (Bld) [#/Vo l]Ordered By: Gordon Smith on 09-27-2022 Eosinophils (Bld) [#/Vol] 0.3 10*3/uL 0.0-0.45 [facility] Eosinophils/100 WBC Auto (Bl d)Ordered By: Gordon Smith on 09-27-2022 Eosinophils/100 WBC (Bld) 4.8 % . [facility] Erythrocyte distribution wid th Auto (RBC) [Ratio]Ordered By: Gordon Smith on 09-27-2022 Erythrocyte distribution width (RBC) [Ratio] 15.8 % 12.0-14.8 [facility] Estimated glomerular filtrat ion rate (GFR) non- AmericanOrdered By: Gordon Smith on 09-27-2022 GFR/1.73 sq M.predicted among non-blacks MDRD (S/P/Bld) [Vol rate/Area] > 60 mL/Min [facility] Gram stain for investigation of transfusion reactionOrdered By: Molly Rivera on 09-27-2022 Microscopic observation Gram stain Nom (Unsp spec) [facility] Hematocrit Auto (Bld) [Volum e fraction]Ordered By: Gordon Smith on 09-27-2022 Hematocrit (Bld) [Volume fraction] 29.5 % 38.8-50.0 [facility] Hemoglobin [Mass/volume] in BloodOrdered By: Gordon Smith on 09-27-2022 Hemoglobin (Bld) [Mass/Vol] 9.5 g/dL 13.0-17.0 [facility] Leukocytes [#/volume] correc tyree for nucleated erythrocytes in Blood by Automated counOrdered By: Gordon Smith on 09-27-2022 WBC corrected for nucl RBC Auto (Bld) [#/Vol] 6.3 10*3/uL 4.1-10.5 [facility] Lymphocytes Auto (Bld) [#/Vo l]Ordered By: Gordon Smith on 09-27-2022 Lymphocytes (Bld) [#/Vol] 1.1 10*3/uL 1.00-4.8 [facility] Lymphocytes/100 WBC Auto (Bl d)Ordered By: Gordon Smith on 09-27-2022 Lymphocytes/100 WBC (Bld) 17.0 % . [facility] MCH Auto (RBC) [Entitic mass ]Ordered By: Gordon Smith on 09-27-2022 MCH (RBC) [Entitic mass] 30.4 pg 27.5-35.2 [facility] MCHC Auto (RBC) [Mass/Vol]Or dered By: Gordon Smith on 09-27-2022 MCHC (RBC) [Mass/Vol] 32.3 g/dL 32.5-35.6 [facility] MCV Auto (RBC) [Entitic vol] Ordered By: Gordon Smith on 09-27-2022 MCV (RBC) [Entitic vol] 94.2 fL 83.5-101 [facility] Monocytes Auto (Bld) [#/Vol] Ordered By: Gordon Smith on 09-27-2022 Monocytes (Bld) [#/Vol] 0.6 10*3/uL 0.0-0.8 [facility] Monocytes/100 WBC Auto (Bld) Ordered By: Gordon Smith on 09-27-2022 Monocytes/100 WBC (Bld) 9.6 % . [facility] Neutrophils Auto (Bld) [#/Vo l]Ordered By: Gordon Smith on 09-27-2022 Neutrophils (Bld) [#/Vol] 4.3 10*3/uL 1.8-7.7 [facility] Neutrophils/100 WBC Auto (Bl d)Ordered By: Gordon Smith on 09-27-2022 Neutrophils/100 WBC (Bld) 67.6 % . [facility] No Panel InformationOrdered By: Gordon Smith on 09-27-2022 Estimated GFR () > 60 mL/Min [facility] Comment on above: GFR estimated refere nce range: According to KDOQI guidelines, <60 ml/min/1.73m2 is sufficient to diagnose a patient with chronic kidney disease. Pharmacy Creatinine Clearance (Chem 108.46 [facility] Nucleated erythrocytes [Pres ence] in Blood by Automated countOrdered By: Gordon Smith on 09-27-2022 Nucleated RBC Auto Ql (Bld) 0.0 /100{WBC} 0-0.5 [facility] Platelet mean volume Auto (B ld) [Entitic vol]Ordered By: Gordon Smith on 09-27-2022 Platelet mean volume (Bld) [Entitic vol] 8.2 fL 6.6-10.1 [facility] Platelets Auto (Bld) [#/Vol] Ordered By: Gordon Smith on 09-27-2022 Platelets (Bld) [#/Vol] 352 10*3/uL 150-450 [facility] RBC Auto (Bld) [#/Vol]Ordere d By: Gordon Smith on 09-27-2022 RBC (Bld) [#/Vol] 3.13 10*6/uL 3.90-5.60 [facility] Serum or plasma anion gap de terminationOrdered By: Gordon Smith on 09-27-2022 Anion gap [Moles/Vol] 10.1 mmol/L 6.0-15.0 [facility] Serum or plasma calcium berhane urement (mass/volume)Ordered By: Gordon Smith on 09-27-2022 Calcium [Mass/Vol] 8.0 mg/dL 8.2-10.2 [facility] Serum or plasma chloride elle surement (moles/volume)Ordered By: Gordon Smith on 09-27-2022 Chloride [Moles/Vol] 105 mmol/L 95-114 [facility] Serum or plasma glucose berhane urement (mass/volume)Ordered By: Gordon Smith on 09-27-2022 Glucose [Mass/Vol] 90 mg/dL 70-100 [facility] Comment on above: ADA recommended refe rence rangeRandom Glucose Reference Range is dependent on time and content of last meal. Glucose of more than 200 mg/dL in a nonstressed, ambulatory subject supports the diagnosis of Diabetes Mellitus. Serum or plasma potassium me asurement (moles/volume)Ordered By: Gordon Smith on 09-27-2022 Potassium [Moles/Vol] 4.2 mmol/L 3.5-5.1 [facility] Serum or plasma sodium measu rement (moles/volume)Ordered By: Gordon Smith on 09-27-2022 Sodium [Moles/Vol] 138 mmol/L 136-146 [facility] Serum or plasma total carbon dioxide measurement (moles/volume)Ordered By: Gordon Smith on 09-27-2022 CO2 [Moles/Vol] 27.1 mmol/L 22.0-30.0 [facility] Serum or plasma urea nitroge n measurement (mass/volume)Ordered By: Gordon Smith on 09-27-2022 Urea nitrogen [Mass/Vol] 9 mg/dL 9-23 [facility] US venous duplex LE BIon US venous duplex LE BI [facility] [place] [address] Ultrasound Report Signed Patient: Indio Collado MR#: [id number] : 1955 Acct:[id number] Age/Sex: 67 / M ADM Date: 09/11/22 Loc: Room: 1O2435-2 Type: ADM IN Attending Dr: Gordon Smith [...] Chirag Hatch MD09/27/2022 2:17 PM Dictation Location: [place] [address] Tech: Mirna Sharma Transcribed By: [facility] 09/27/221416 Dictated By: Chirag Hatch MD 09/27/221415 Signed By: 09/27/22 141 Normal [facility] WBC Auto (Bld) [#/Vol]Ordere d By: Gordon Smith on 09-27-2022 WBC (Bld) [#/Vol] 6.3 10*3/uL 4.1-10.5 [facility] Complete Blood Count Auto Di ffon 09-26-2022 Basophils (Bld) [#/Vol] 0.1 10*3/uL Normal 0.0-0.2 [facility] Comment on above: Result Comment: PERF ORMED BY: [facility] [address] [place] [address] PATHOLOGIST [employer] XU TAPIA M.D. Performed By: #### G LULS #### Point of Care testing , Basophils/100 WBC (Bld) 2.1 % Normal . [facility] Comment on above: Performed By: #### G LULS #### Point of Care testing , Eosinophils (Bld) [#/Vol] 0.4 10*3/uL Normal 0.0-0.45 [facility] Comment on above: Performed By: #### G LULS #### Point of Care testing , Eosinophils/100 WBC (Bld) 7.6 % Normal . [facility] Comment on above: Performed By: #### G LULS #### Point of Care testing , Erythrocyte distribution width (RBC) [Ratio] 15.9 % High 12.0-14.8 [facility] Comment on above: Performed By: #### G LULS #### Point of Care testing , Hematocrit (Bld) [Volume fraction] 28.6 % Low 38.8-50.0 [facility] Comment on above: Performed By: #### G LULS #### Point of Care testing , Hemoglobin (Bld) [Mass/Vol] 9.4 g/dL Low 13.0-17.0 [facility] Comment on above: Performed By: #### G LULS #### Point of Care testing , Lymphocytes (Bld) [#/Vol] 1.2 10*3/uL Normal 1.00-4.8 [facility] Comment on above: Performed By: #### G LULS #### Point of Care testing , Lymphocytes/100 WBC (Bld) 23.5 % Normal . [facility] Comment on above: Performed By: #### G LULS #### Point of Care testing , MCH (RBC) [Entitic mass] 30.9 pg Normal 27.5-35.2 [facility] Comment on above: Performed By: #### G HUGOLS #### Point of Care testing , MCV (RBC) [Entitic vol] 93.9 fL Normal 83.5-101 [facility] Comment on above: Performed By: #### G LULS #### Point of Care testing , Mean Corpuscular HGB Conc 32.9 g/dL Normal 32.5-35.6 [facility] Comment on above: Performed By: #### G HUGOLS #### Point of Care testing , Monocytes (Bld) [#/Vol] 0.5 10*3/uL Normal 0.0-0.8 [facility] Comment on above: Performed By: #### G LULS #### Point of Care testing , Monocytes/100 WBC (Bld) 10.0 % Normal . [facility] Comment on above: Performed By: #### G LULS #### Point of Care testing , Neutrophils (Bld) [#/Vol] 2.8 10*3/uL Normal 1.8-7.7 [facility] Comment on above: Performed By: #### G LULS #### Point of Care testing , Neutrophils/100 WBC (Bld) 56.8 % Normal . [facility] Comment on above: Performed By: #### G LULS #### Point of Care testing , NRBC% 0.2 /100{WBC} Normal 0-0.5 [facility] Comment on above: Performed By: #### G LULS #### Point of Care testing , Platelet mean volume (Bld) [Entitic vol] 7.9 fL Normal 6.6-10.1 [facility] Comment on above: Performed By: #### G LULS #### Point of Care testing , Platelets (Bld) [#/Vol] 371 10*3/uL Normal 150-450 [facility] Comment on above: Performed By: #### G LULS #### Point of Care testing , RBC (Bld) [#/Vol] 3.04 10*6/uL Low 3.90-5.60 [facility] Comment on above: Performed By: #### G LULS #### Point of Care testing , WBC (Bld) [#/Vol] 4.9 10*3/uL Normal 4.1-10.5 [facility] Comment on above: Performed By: #### G LULS #### Point of Care testing , Complete Blood Count Auto Di ffon 09-23-2022 Basophils (Bld) [#/Vol] 0.1 10*3/uL Normal 0.0-0.2 [facility] Comment on above: Result Comment: PERF ORMED BY: [facility] [place] [address] PATHOLOGIST [employer] XU TAPIA M.D. Performed By: #### G LULS #### Point of Care testing , Basophils/100 WBC (Bld) 1.3 % Normal . [facility] Comment on above: Performed By: #### G LULS #### Point of Care testing , Eosinophils (Bld) [#/Vol] 0.3 10*3/uL Normal 0.0-0.45 [facility] Comment on above: Performed By: #### G LULS #### Point of Care testing , Eosinophils/100 WBC (Bld) 4.7 % Normal . [facility] Comment on above: Performed By: #### G LULS #### Point of Care testing , Erythrocyte distribution width (RBC) [Ratio] 16.1 % High 12.0-14.8 [facility] Comment on above: Performed By: #### G HUGOLS #### Point of Care testing , Hematocrit (Bld) [Volume fraction] 27.6 % Low 38.8-50.0 [facility] Comment on above: Performed By: #### G HUGOLS #### Point of Care testing , Hemoglobin (Bld) [Mass/Vol] 9.0 g/dL Low 13.0-17.0 [facility] Comment on above: Performed By: #### G HUGOLS #### Point of Care testing , Lymphocytes (Bld) [#/Vol] 1.4 10*3/uL Normal 1.00-4.8 [facility] Comment on above: Performed By: #### G HUGOLS #### Point of Care testing , Lymphocytes/100 WBC (Bld) 20.0 % Normal . [facility] Comment on above: Performed By: #### G HUGOLS #### Point of Care testing , MCH (RBC) [Entitic mass] 31.0 pg Normal 27.5-35.2 [facility] Comment on above: Performed By: #### G HUGOLS #### Point of Care testing , MCV (RBC) [Entitic vol] 95.3 fL Normal 83.5-101 [facility] Comment on above: Performed By: #### G HUGOLS #### Point of Care testing , Mean Corpuscular HGB Conc 32.5 g/dL Normal 32.5-35.6 [facility] Comment on above: Performed By: #### G HUGOLS #### Point of Care testing , Monocytes (Bld) [#/Vol] 0.6 10*3/uL Normal 0.0-0.8 [facility] Comment on above: Performed By: #### G LULS #### Point of Care testing , Monocytes/100 WBC (Bld) 8.8 % Normal . [facility] Comment on above: Performed By: #### G HUGOLS #### Point of Care testing , Neutrophils (Bld) [#/Vol] 4.6 10*3/uL Normal 1.8-7.7 [facility] Comment on above: Performed By: #### G HUGOLS #### Point of Care testing , Neutrophils/100 WBC (Bld) 65.2 % Normal . [facility] Comment on above: Performed By: #### G LULS #### Point of Care testing , NRBC% 0.0 /100{WBC} Normal 0-0.5 [facility] Comment on above: Performed By: #### G LULS #### Point of Care testing , Platelet mean volume (Bld) [Entitic vol] 8.1 fL Normal 6.6-10.1 [facility] Comment on above: Performed By: #### G HUGOLS #### Point of Care testing , Platelets (Bld) [#/Vol] 362 10*3/uL Normal 150-450 [facility] Comment on above: Performed By: #### G HUGOLS #### Point of Care testing , RBC (Bld) [#/Vol] 2.90 10*6/uL Low 3.90-5.60 [facility] Comment on above: Performed By: #### G HUGOLS #### Point of Care testing , WBC (Bld) [#/Vol] 7.0 10*3/uL Normal 4.1-10.5 [facility] Comment on above: Performed By: #### G HUGOLS #### Point of Care testing , Complete Blood Count Auto Di ffon 09-22-2022 Basophils (Bld) [#/Vol] 0.1 10*3/uL Normal 0.0-0.2 [facility] Comment on above: Result Comment: PERF ORMED BY: [facility] [address] [place] [address] PATHOLOGIST [employer] XU TAPIA M.D. Performed By: #### G LULS #### Point of Care testing , Basophils/100 WBC (Bld) 1.3 % Normal . [facility] Comment on above: Performed By: #### G HUGOLS #### Point of Care testing , Eosinophils (Bld) [#/Vol] 0.3 10*3/uL Normal 0.0-0.45 [facility] Comment on above: Performed By: #### G USMAN #### Point of Care testing , Eosinophils/100 WBC (Bld) 4.4 % Normal . [facility] Comment on above: Performed By: #### G HUGOLS #### Point of Care testing , Erythrocyte distribution width (RBC) [Ratio] 16.1 % High 12.0-14.8 [facility] Comment on above: Performed By: #### G USMAN #### Point of Care testing , Hematocrit (Bld) [Volume fraction] 26.6 % Low 38.8-50.0 [facility] Comment on above: Performed By: #### G HUGOLS #### Point of Care testing , Hemoglobin (Bld) [Mass/Vol] 8.7 g/dL Low 13.0-17.0 [facility] Comment on above: Performed By: #### [place] MARY #### Point of Care testing , Lymphocytes (Bld) [#/Vol] 1.3 10*3/uL Normal 1.00-4.8 [facility] Comment on above: Performed By: #### G USMAN #### Point of Care testing , Lymphocytes/100 WBC (Bld) 22.0 % Normal . [facility] Comment on above: Performed By: #### G HUGOLS #### Point of Care testing , MCH (RBC) [Entitic mass] 31.1 pg Normal 27.5-35.2 [facility] Comment on above: Performed By: #### G USMAN #### Point of Care testing , MCV (RBC) [Entitic vol] 95.0 fL Normal 83.5-101 [facility] Comment on above: Performed By: #### G HUGOLS #### Point of Care testing , Mean Corpuscular HGB Conc 32.8 g/dL Normal 32.5-35.6 [facility] Comment on above: Performed By: #### G USMAN #### Point of Care testing , Monocytes (Bld) [#/Vol] 0.5 10*3/uL Normal 0.0-0.8 [facility] Comment on above: Performed By: #### G HUGOLS #### Point of Care testing , Monocytes/100 WBC (Bld) 8.7 % Normal . [facility] Comment on above: Performed By: #### G HUGOLS #### Point of Care testing , Neutrophils (Bld) [#/Vol] 3.9 10*3/uL Normal 1.8-7.7 [facility] Comment on above: Performed By: #### G HUGOLS #### Point of Care testing , Neutrophils/100 WBC (Bld) 63.6 % Normal . [facility] Comment on above: Performed By: #### G HUGOLS #### Point of Care testing , NRBC% 0.2 /100{WBC} Normal 0-0.5 [facility] Comment on above: Performed By: #### G HUGOLS #### Point of Care testing , Platelet mean volume (Bld) [Entitic vol] 8.5 fL Normal 6.6-10.1 [facility] Comment on above: Performed By: #### G USMAN #### Point of Care testing , Platelets (Bld) [#/Vol] 339 10*3/uL Normal 150-450 [facility] Comment on above: Performed By: #### G HUGOLS #### Point of Care testing , RBC (Bld) [#/Vol] 2.80 10*6/uL Low 3.90-5.60 [facility] Comment on above: Performed By: #### G HUGOLS #### Point of Care testing , WBC (Bld) [#/Vol] 6.1 10*3/uL Normal 4.1-10.5 [facility] Comment on above: Performed By: #### G HUGOLS #### Point of Care testing , Basic Metabolic Panelon 11- Anion gap [Moles/Vol] 9.4 mmol/L Normal 6.0-15.0 [facility] Comment on above: Performed By: #### C MP, CBC, PAB #### [facility] [address] Calcium [Mass/Vol] 7.9 mg/dL Low 8.2-10.2 [facility] Comment on above: Performed By: #### C MP, CBC, PAB #### [facility] [address] Chloride [Moles/Vol] 104 mmol/L Normal 95-114 [facility] Comment on above: Performed By: #### C MP, CBC, PAB #### [facility] [address] CO2 [Moles/Vol] 29.0 mmol/L Normal 22.0-30.0 [facility] Comment on above: Performed By: #### C MP, CBC, PAB #### [address] Creatinine [Mass/Vol] 0.77 mg/dL Normal 0.64-1.27 [facility] Comment on above: Performed By: #### C MP, CBC, PAB #### [place] [address] [place] Creatinine Clr Calc Pharmacy 111.64 [facility] Comment on above: Result Comment: PERF ORMED BY: [place] [address] PATHOLOGIST [employer] XU TPAIA M.D. Performed By: #### C MP, CBC, PAB #### [facility] [address] [place] [address] Estimated GFR ( Marie > 60 [facility] Comment on above: Result Comment: GFR estimated reference range: According to KDOQI guidelines, <60 ml/min/1.73m2 is sufficient to diagnose a patient with chronic kidney disease. Performed By: #### C MP, CBC, PAB #### [facility] [address] [place] [address] Estimated GFR (Non- Am > 60 [facility] Comment on above: Performed By: #### C MP, CBC, PAB #### [address] Glucose [Mass/Vol] 81 mg/dL Normal 70-100 [facility] Comment on above: Result Comment: [facility] Glucose Reference Range is dependent on time and content of last meal. Glucose of more than 200 mg/dL in a nonstressed, ambulatory subject supports the diagnosis of Diabetes Mellitus. ADA recommended reference range Performed By: #### C MP, CBC, PAB #### [facility] [address] Potassium [Moles/Vol] 4.4 mmol/L Normal 3.5-5.1 [facility] Comment on above: Performed By: #### C MP, CBC, PAB #### [facility] [address] Sodium [Moles/Vol] 138 mmol/L Normal 136-146 [facility] Comment on above: Performed By: #### C MP, CBC, PAB #### [facility] [address] Urea nitrogen [Mass/Vol] 8 mg/dL Low - [facility] Comment on above: Performed By: #### C MP, CBC, PAB #### [facility] [address] Complete Blood Count Auto Di ffon 09-21-2022 Basophils (Bld) [#/Vol] 0.1 10*3/uL Normal 0.0-0.2 [facility] Comment on above: Result Comment: PERF ORMED BY: [place] [address] PATHOLOGIST [employer] XU TAPIA M.D. Performed By: #### C MP, CBC, PAB #### [facility] [address] [place] [address] [place] Basophils/100 WBC (Bld) 1.5 % Normal . [facility] Comment on above: Performed By: #### C MP, CBC, PAB #### [facility] [address] [place] [address] [place] Eosinophils (Bld) [#/Vol] 0.4 10*3/uL Normal 0.0-0.45 [facility] Comment on above: Performed By: #### C MP, CBC, PAB #### [address] Eosinophils/100 WBC (Bld) 6.3 % Normal . [facility] Comment on above: Performed By: #### C MP, CBC, PAB #### [address] Erythrocyte distribution width (RBC) [Ratio] 16.0 % High 12.0-14.8 [facility] Comment on above: Performed By: #### C MP, CBC, PAB #### [address] Hematocrit (Bld) [Volume fraction] 25.5 % Low 38.8-50.0 [facility] Comment on above: Performed By: #### C MP, CBC, PAB #### [address] Hemoglobin (Bld) [Mass/Vol] 8.3 g/dL Low 13.0-17.0 [facility] Comment on above: Performed By: #### C MP, CBC, PAB #### [address] Lymphocytes (Bld) [#/Vol] 1.6 10*3/uL Normal 1.00-4.8 [facility] Comment on above: Performed By: #### C MP, CBC, PAB #### [address] Lymphocytes/100 WBC (Bld) 24.7 % Normal . [facility] Comment on above: Performed By: #### C MP, CBC, PAB #### [address] MCH (RBC) [Entitic mass] 31.3 pg Normal 27.5-35.2 [facility] Comment on above: Performed By: #### C MP, CBC, PAB #### [address] MCV (RBC) [Entitic vol] 95.9 fL Normal 83.5-101 [facility] Comment on above: Performed By: #### C MP, CBC, PAB #### [facility] [address] Mean Corpuscular HGB Conc 32.7 g/dL Normal 32.5-35.6 [facility] Comment on above: Performed By: #### C MP, CBC, PAB #### [facility] [address] Monocytes (Bld) [#/Vol] 0.6 10*3/uL Normal 0.0-0.8 [facility] Comment on above: Performed By: #### C MP, CBC, PAB #### [address] Monocytes/100 WBC (Bld) 9.1 % Normal . [facility] Comment on above: Performed By: #### C MP, CBC, PAB #### [address] Neutrophils (Bld) [#/Vol] 3.7 10*3/uL Normal 1.8-7.7 [facility] Comment on above: Performed By: #### C MP, CBC, PAB #### [address] Neutrophils/100 WBC (Bld) 58.4 % Normal . [facility] Comment on above: Performed By: #### C MP, CBC, PAB #### [facility] [address] Platelet mean volume (Bld) [Entitic vol] 8.3 fL Normal 6.6-10.1 [facility] Comment on above: Performed By: #### C MP, CBC, PAB #### [address] Platelets (Bld) [#/Vol] 372 10*3/uL Normal 150-450 [facility] Comment on above: Performed By: #### C MP, CBC, PAB #### [place] [address] [place] RBC (Bld) [#/Vol] 2.66 10*6/uL Low 3.90-5.60 [facility] Comment on above: Performed By: #### C MP, CBC, PAB #### [facility] [address] WBC (Bld) [#/Vol] 6.4 10*3/uL Normal 4.5-11.0 [facility] Comment on above: Performed By: #### C MP, CBC, PAB #### [address] Complete Blood Count Auto Di ffOrdered By: Gordon Smith on 09-21-2022 Nucleated RBC/100 WBC (Bld) [Ratio] 0.1 % 0-0.5 [facility] Comment on above: Performed By: #### C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 [address] WBC (Bld) [#/Vol] 6.7 10*3/uL Normal 4.5-11.0 [facility] Comment on above: Performed By: #### C MP, CBC, PAB #### [address] Comprehensive Metabolic Pane carl 09-12-2022 Albumin [Mass/Vol] 1.7 g/dL Low 3.2-5.5 [facility] Comment on above: Performed By: #### C MP, CBC, PAB #### [address] Albumin/Globulin [Mass ratio] 0.8 {ratio} [facility] Comment on above: Performed By: #### C MP, CBC, PAB #### [address] ALP [Catalytic activity/Vol] 58 U/L Normal 32-92 [facility] Comment on above: Performed By: #### C MP, CBC, PAB #### [address] ALT [Catalytic activity/Vol] 15 U/L Normal 10-60 [facility] Comment on above: Performed By: #### C MP, CBC, PAB #### [facility] [address] [place] [address] Anion gap [Moles/Vol] 6.7 mmol/L Normal 6.0-15.0 [facility] Comment on above: Performed By: #### C MP, CBC, PAB #### [address] AST [Catalytic activity/Vol] 13 U/L Normal 10-42 [facility] Comment on above: Performed By: #### C MP, CBC, PAB #### [facility] [address] [place] [address] Bilirubin [Mass/Vol] 1.5 mg/dL High 0.3-1.2 [facility] Comment on above: Result Comment: Samp les from patients who have taken Naproxen have shown spurious elevation in Total Bilirubin levels. A metabolite of Naproxen, O-desmethylnaproxen, has been shown to interfere with the Jendrassik-Grof method for measuring Total Bilirubin. Performed By: #### C MP, CBC, PAB #### [facility] [address] Calcium [Mass/Vol] 7.6 mg/dL Low 8.2-10.2 [facility] Comment on above: Performed By: #### C MP, CBC, PAB #### [address] Chloride [Moles/Vol] 105 mmol/L Normal 95-114 [facility] Comment on above: Performed By: #### C MP, CBC, PAB #### [address] CO2 [Moles/Vol] 30.2 mmol/L High 22.0-30.0 [facility] Comment on above: Performed By: #### C MP, CBC, PAB #### [address] Creatinine [Mass/Vol] 0.90 mg/dL Normal 0.64-1.27 [facility] Comment on above: Performed By: #### C MP, CBC, PAB #### [address] Creatinine Clr Calc Pharmacy 91.15 [facility] Comment on above: Performed By: #### C MP, CBC, PAB #### [address] Estimated GFR ( Marie > 60 [facility] Comment on above: Result Comment: GFR estimated reference range: According to KDOQI guidelines, <60 ml/min/1.73m2 is sufficient to diagnose a patient with chronic kidney disease. Performed By: #### C MP, CBC, PAB #### [address] [place] [address] [place] Estimated GFR (Non- Am > 60 Normal [facility] Comment on above: Performed By: #### C MP, CBC, PAB #### [facility] [address] Globulin (S) [Mass/Vol] 2.2 g/dL Normal [facility] Comment on above: Performed By: #### C MP, CBC, PAB #### [address] Glucose [Mass/Vol] 84 mg/dL Normal 70-100 [facility] Comment on above: Result Comment: [facility] Glucose Reference Range is dependent on time and content of last meal. Glucose of more than 200 mg/dL in a nonstressed, ambulatory subject supports the diagnosis of Diabetes Mellitus. ADA recommended reference range Performed By: #### C MP, CBC, PAB #### [address] Potassium [Moles/Vol] 3.9 mmol/L Normal 3.5-5.1 [facility] Comment on above: Performed By: #### C MP, CBC, PAB #### [address] Protein [Mass/Vol] 3.9 g/dL Low 6.1-7.9 [facility] Comment on above: Performed By: #### C MP, CBC, PAB #### [address] Sodium [Moles/Vol] 138 mmol/L Normal 136-146 [facility] Comment on above: Performed By: #### C MP, CBC, PAB #### [address] Urea nitrogen [Mass/Vol] 15 mg/dL Normal 9-23 [facility] Comment on above: Performed By: #### C MP, CBC, PAB #### [address] Globulin Calc (S) [Mass/Vol] Ordered By: Gordon Smith on 09-12-2022 Globulin (S) [Mass/Vol] 2.2 g/dL [facility] Glucose Poct Glucometerson 1 11-12-2021 Commemt1 Glu2: Cleaned Meter Normal [facility] Comment on above: Result Comment: PERF ORMED BY: [facility] [address] [facility] [place] [address] PATHOLOGIST [employer] XU TAPIA M.D. Performed By: #### G LULS #### Point of Care testing , Glucose [Mass/Vol] 135 mg/dL Normal [facility] Comment on above: Result Comment: [place] om Glucose Reference Range is dependent on time and content of last meal. Glucose of more than 200 mg/dL in a nonstressed, ambulatory subject supports the diagnosis of Diabetes Mellitus. Performed By: #### G LULS #### Point of Care testing , Glucose [Mass/Vol] 96 mg/dL Normal [facility] Comment on above: Result Comment: [place] om Glucose Reference Range is dependent on time and content of last meal. Glucose of more than 200 mg/dL in a nonstressed, ambulatory subject supports the diagnosis of Diabetes Mellitus. PERFORMED BY: [facility] [address] [facility] [place] [address] PATHOLOGIST [employer]ACH XU TAPIA M.D. Performed By: #### C MP, CBC, PAB #### [facility] [address] [place] [address] [place] Prealbuminon 09-12-2022 Prealbumin [Mass/Vol] 9.3 mg/dL Low 18.0-38.0 [facility] Comment on above: Result Comment: PERF ORMED BY: [facility] [address] [facility] [place] [address] PATHOLOGIST [employer]ACH XU TAPIA M.D. Performed By: #### C MP, CBC, PAB #### [facility] [address] [place] [address] [place] Protein [Mass/volume] in Ser um or PlasmaOrdered By: Gordon Smith on 09-12-2022 Protein [Mass/Vol] 3.9 g/dL 6.1-7.9 [facility] Serum or plasma alanine lomax otransferase measurement without P-5'-P (enzymatic activiOrdered By: Gordon Luis on 09-12-2022 ALT No additional P-5'-P [Catalytic activity/Vol] 15 U/L 10-60 [facility] Serum or plasma albumin/glob ulin mass ratioOrdered By: Gordon Smith on 09-12-2022 Albumin/Globulin [Mass ratio] 0.8 {ratio} [facility] Serum or plasma alkaline alicia sphatase measurement (enzymatic activity/volume)Ordered By: Gordon Smith on 09-12-2022 ALP [Catalytic activity/Vol] 58 U/L 32-92 [facility] Serum or plasma aspartate am inotransferase measurement (enzymatic activity/volume)Ordered By: Gordon Smith on 09-12-2022 AST [Catalytic activity/Vol] 13 U/L 10-42 [facility] Serum or plasma prealbumin m easurement (mass/volume)Ordered By: Gordon Smith on 09-12-2022 Prealbumin [Mass/Vol] 9.3 mg/dL 18.0-38.0 [facility] Serum or plasma total biliru bin measurement (mass/volume)Ordered By: Gordon Smith on 09-12-2022 Bilirubin [Mass/Vol] 1.5 mg/dL 0.3-1.2 [facility] Comment on above: Samples from patient s who have taken Naproxen have shown spurious elevation in Total Bilirubin levels. A metabolite of Naproxen, O-desmethylnaproxen, has been shown to interfere with the Jendrassik-Grof method for measuring Total Bilirubin. Glucose Poct Glucometerson 1 11-11-2021 Glucose [Mass/Vol] 90 mg/dL Normal [facility] Comment on above: Result Comment: [facility] Glucose Reference Range is dependent on time and content of last meal. Glucose of more than 200 mg/dL in a nonstressed, ambulatory subject supports the diagnosis of Diabetes Mellitus. PERFORMED BY: [place] [address] [place] [address] PATHOLOGIST M[employer]ASK[employer] COACH XU TAPIA M.D. Performed By: #### G LULS #### Point of Care testing , Basic Metab w/rfx MGon 09-10 Anion gap [Moles/Vol] 5 mmol/L Low 9-17 [facility] Comment on above: Performed By: #### I OCAL, CDP, MG, LACTIC, ALICIA, BNP, BMP #### [address] [address] [employer] Dean: Bret Vazquez MD Performed By: #### E RTPFKLARISSAEG #### [address] [address] [employer] Dean: Bret Vazquez MD Calcium [Mass/Vol] 7.8 mg/dL Low 8.6-10.4 [facility] Comment on above: Performed By: #### I OCAL, CDP, MG, LACTIC, ALICIA, BNP, BMP #### [address] [address] [employer] Dean: Bret Vazquez MD Performed By: #### E RTKLARISSA HIGGINSEG #### [address] [address] [employer] Dean: Bret Vazquez MD Chloride [Moles/Vol] 105 mmol/L Normal 98-107 [facility] Comment on above: Performed By: #### I OCAL, CDP, MG, LACTIC, ALICIA, BNP, BMP #### [address] [address] [employer] Dean: Bret Vazquez MD Performed By: #### E RTPKLARISSA GoldenEG #### [facility] [employer] [address] [place] [phone] [employer] Dean: Bret Vazquez MD CO2 [Moles/Vol] 24 mmol/L Normal 20-31 [facility] Comment on above: Performed By: #### I OCAL, CDP, MG, LACTIC, ALICIA, BNP, BMP #### [facility] [employer] [address] [place] [id number] [employer] Dean: Bret Vazquez MD Performed By: #### CHRISTY MOJICA #### [address] [address] [employer] Dean: Bret Vazquez MD Creatinine [Mass/Vol] 0.77 mg/dL Normal 0.70-1.20 [facility] Comment on above: Performed By: #### I OCAL, CDP, MG, LACTIC, ALICIA, BNP, BMP #### [facility] [employer] [address] [place] [address] [employer] Dean: Bret Vazquez MD Performed By: #### CHRISTY MOJICA #### [address] [address] [employer] Dean: Bret Vazquez MD GFR/1.73 sq M.predicted among non-blacks MDRD (S/P/Bld) [Vol rate/Area] mL/min/{1.73_m2} Normal >60 [facility] Comment on above: Result Comment: Effective Jul [...] CDP, MG, LACTIC, ALICIA, BNP, BMP #### [facility] [employer] [address] [place] [id number] [employer] Dean: Bret Vazquez MD Performed By: #### CHRISTY MOJICA #### [address] [address] [employer] Dean: Bret Vazquez MD Glucose [Mass/Vol] 85 mg/dL Normal 70-99 [facility] Comment on above: Performed By: #### I OCAL, CDP, MG, LACTIC, ALICIA, BNP, BMP #### [address] [address] [employer] Dean: Bret Vazquez MD Performed By: #### E RTPKLARISSA GoldenEG #### [address] [address] [employer] Dean: Bert Vazquez MD Potassium [Moles/Vol] 4.4 mmol/L Normal 3.7-5.3 [facility] Comment on above: Performed By: #### I OCAL, CDP, MG, LACTIC, ALICIA, BNP, BMP #### [address] [address] [employer] Dean: Bret Vazquez MD Performed By: #### E RTKLARISSA HIGGINSEG #### [address] [address] [employer] Dean: Bret Vazquez MD Sodium [Moles/Vol] 134 mmol/L Low 135-144 [facility] Comment on above: Performed By: #### I OCAL, CDP, MG, LACTIC, ALICIA, BNP, BMP #### [address] [address] [employer] Dean: Bret Vazquez MD Performed By: #### E RTKLARISSA HIGGINSEG #### [facility] [employer] [address] [place] [address] [employer] Dean: Bret Vazquez MD Urea nitrogen [Mass/Vol] 17 mg/dL Normal 8-23 [facility] Comment on above: Performed By: #### I OCAL, CDP, MG, LACTIC, ALICIA, BNP, BMP #### [address] [address] [employer] Dean: Bret Vazquez MD Performed By: #### E RTPFRANDOLPHLTEG #### [facility] [employer] [address] [place] [address] [employer] Dean: Bret Vazquez MD CBC with Diffon 09-10-2022 Abs. Basophil 0.06 k/uL Normal 0.00-0.20 [facility] Comment on above: Performed By: #### I OCAL, CDP, MG, LACTIC, ALICIA, BNP, BMP #### [address] [address] [employer] Dean: Bret Vazquez MD Performed By: #### E RTPFKLARISSAEG #### [place] [address] [employer] Dean: Bret Vazquez MD Abs.Imm.Granulocyte 0.04 k/uL Normal 0.00-0.30 [facility] Comment on above: Performed By: #### I OCAL, CDP, MG, LACTIC, ALICIA, BNP, BMP #### [place] [address] [employer]: Bret Vazquez MD Performed By: #### E RTKLARISSA HIGGINSEG #### [place] [address] [employer] Dean: Bret Vazquez MD Abs.Neutrophil (Seg) 3.45 k/uL Normal 1.50-8.10 [facility] Comment on above: Performed By: #### I OCAL, CDP, MG, LACTIC, ALICIA, BNP, BMP #### [place] [address] [employer]: Bret Vazquez MD Performed By: #### E RTBakariFCHRISTY #### [place] [address] [employer] Dean: Bret Vazquez MD Basophils/100 WBC (Bld) 1 % Normal 0-2 [facility] Comment on above: Performed By: #### I OCAL, CDP, MG, LACTIC, ALICIA, BNP, BMP #### [address] [address] [employer] Dean: Bret Vazquez MD Performed By: #### E RTKLARISSA HIGGINSEG #### [address] [address] [employer] Dean: Bret Vazquez MD Eosinophils (Bld) [#/Vol] 0.36 10*3/uL Normal 0.00-0.44 [facility] Comment on above: Performed By: #### I OCAL, CDP, MG, LACTIC, ALICIA, BNP, BMP #### [address] [address] [employer] Dean: Bret Vazquez MD Performed By: #### E RTKLARISSA HIGGINSEG #### [address] [address] [employer] Dean: Bret Vazquez MD Eosinophils/100 WBC (Bld) 6 % High 1-4 [facility] Comment on above: Performed By: #### I OCAL, CDP, MG, LACTIC, ALICIA, BNP, BMP #### [place] [address] [employer] Dean: Bret Vazquez MD Performed By: #### E RTKLARISSA HIGGINSEG #### [address] [address] [employer] Dean: Bret Vazquez MD Erythrocyte distribution width (RBC) [Ratio] 15.8 % High 11.8-14.4 [facility] Comment on above: Performed By: #### I OCAL, CDP, MG, LACTIC, ALICIA, BNP, BMP #### [address] [address] [employer] Dean: Bret Vazquez MD Performed By: #### E RTPF GHLTEG #### [address] [address] [employer] Dean: Bret Vazquez MD Hematocrit (Bld) [Volume fraction] 25.2 % Low 40.7-50.3 [facility] Comment on above: Performed By: #### I OCAL, CDP, MG, LACTIC, ALICIA, BNP, BMP #### [address] [address] [employer] Dean: Bret Vazquez MD Performed By: #### E RTPCHRISTY Golden #### [place] [address] [employer] Dean: Bret Vazquez MD Hemoglobin (Bld) [Mass/Vol] 7.6 g/dL Low 13.0-17.0 [facility] Comment on above: Performed By: #### I OCAL, CDP, MG, LACTIC, ALICIA, BNP, BMP #### [place] [address] [employer] Dean: Bret Vazquez MD Performed By: #### E RTCHRISTY HIGGINS #### [place] [address] [employer] Dean: Bret Vazquez MD Immature granulocytes/100 WBC (Bld) 1 % High 0 [facility] Comment on above: Performed By: #### I OCAL, CDP, MG, LACTIC, ALICIA, BNP, BMP #### [place] [address] [employer] Dean: Bret Vazquez MD Performed By: #### E RTCHRISTY HIGGINS #### [place] [address] [employer] Dean: Bret Vazquez MD Lymphocytes (Bld) [#/Vol] 2.01 10*3/uL Normal 1.10-3.70 [facility] Comment on above: Performed By: #### I OCAL, CDP, MG, LACTIC, ALICIA, BNP, BMP #### [place] [address] [employer] Dean: Bret Vazquez MD Performed By: #### E RTKLARISSA HIGGINSEG #### [address] [address] [employer] Dean: Bret Vazquez MD Lymphocytes/100 WBC (Bld) 31 % Normal 24-43 [facility] Comment on above: Performed By: #### I OCAL, CDP, MG, LACTIC, ALICIA, BNP, BMP #### [address] [address] [employer] Dean: Bret Vazquez MD Performed By: #### E RTKLARISSA HIGGINSEG #### [address] [address] [employer] Dean: Bret Vazquez MD MCH (RBC) [Entitic mass] 31.7 pg Normal 25.2-33.5 [facility] Comment on above: Performed By: #### I OCAL, CDP, MG, LACTIC, ALICIA, BNP, BMP #### [address] [address] [employer] Dean: Bret Vazquez MD Performed By: #### E RTKLARISSA HIGGINSEG #### [address] [address] [employer] Dean: Bret Vazquez MD MCHC (RBC) [Mass/Vol] 30.2 g/dL Normal 28.4-34.8 [facility] Comment on above: Performed By: #### I OCAL, CDP, MG, LACTIC, ALICIA, BNP, BMP #### [address] [address] [employer] Dean: Bret Vazquez MD Performed By: #### E RTPFRANDOLPHLTEG #### [address] [address] [employer] Dean: Bret Vazquez MD MCV (RBC) [Entitic vol] 105.0 fL High 82.6-102.9 [facility] Comment on above: Performed By: #### I OCAL, CDP, MG, LACTIC, ALICIA, BNP, BMP #### [address] [address] [employer] Dean: Bret Vazquez MD Performed By: #### E RTPFCHRISTY #### [address] [address] [employer] Dean: Bret Vazquez MD Monocytes (Bld) [#/Vol] 0.62 10*3/uL Normal 0.10-1.20 [facility] Comment on above: Performed By: #### I OCAL, CDP, MG, LACTIC, ALICIA, BNP, BMP #### [address] [address] [employer] Dean: Bret Vazquez MD Performed By: #### E RTCHRISTY HIGGINS #### [address] [address] [employer] Dean: Bret Vazquez MD Monocytes/100 WBC (Bld) 10 % Normal 3-12 [facility] Comment on above: Performed By: #### I OCAL, CDP, MG, LACTIC, ALICIA, BNP, BMP #### [address] [address] [employer] Dean: Bret Vazquez MD Performed By: #### E RTCHRISTY HIGGINS #### [facility] [employer] [address] [place] [address] [employer] Dean: Bret Vazquez MD Neutrophil (Seg) 53 % Normal 36-65 [facility] Comment on above: Performed By: #### I OCAL, CDP, MG, LACTIC, ALICIA, BNP, BMP #### [address] [address] [employer] Dean: Bret Vazquez MD Performed By: #### E RTPFKLARISSAEG #### [address] [address] [employer] Dean: Bret Vazquez MD NRBC Automated 0.0 per 100 WBC Normal 0.0 [facility] Comment on above: Performed By: #### I OCAL, CDP, MG, LACTIC, ALICIA, BNP, BMP #### [address] [address] [employer] Dean: Bret Vazquez MD Performed By: #### E RTPKLARISSA GoldenEG #### [address] [address] [employer] Dean: Bret Vazquez MD Platelet mean volume (Bld) [Entitic vol] 10.3 fL Normal 8.1-13.5 [facility] Comment on above: Performed By: #### I OCAL, CDP, MG, LACTIC, ALICIA, BNP, BMP #### [address] [address] [employer] Dean: Bret Vazquez MD Performed By: #### E RTKLARISSA HIGGINSEG #### [address] [address] [employer] Dean: Bret Vazquez MD Platelets (Bld) [#/Vol] 245 10*3/uL Normal 138-453 [facility] Comment on above: Performed By: #### I OCAL, CDP, MG, LACTIC, ALICIA, BNP, BMP #### [address] [address] [employer] Dean: Bret Vazquez MD Performed By: #### E RTKLARISSA HIGGINSEG #### [facility] [address] [place] [address] [employer] Dean: Bret Vazquez MD RBC (Bld) [#/Vol] 2.40 10*6/uL Low 4.21-5.77 [facility] Comment on above: Performed By: #### I OCAL, CDP, MG, LACTIC, ALICIA, BNP, BMP #### [facility] [address] [place] [address] [employer] Dean: Bret Vazquez MD Performed By: #### E RTPF EG #### [facility] [address] [place] [address] [employer] Dean: Bret Vazquez MD RBC morphology finding Nom (Bld) ANISOCYTOSIS PRESENT Normal [facility] Comment on above: Result Comment: MACR OCYTOSIS PRESENT Performed By: #### I OCAL, CDP, MG, LACTIC, ALICIA, BNP, BMP #### [facility] [address] [place] [address] [employer] Dean: Bret Vazquez MD Performed By: #### E RTPKLARISSA GoldenEG #### [facility] [address] [place] [address] [employer] Dean: Bret Vazquez MD WBC (Bld) [#/Vol] 6.5 10*3/uL Normal 3.5-11.3 [facility] Comment on above: Performed By: #### I OCAL, CDP, MG, LACTIC, ALICIA, BNP, BMP #### [facility] [address] [place] [address] [employer] Dean: Bret Vazquez MD Performed By: #### E RTCHRISTY HIGGINS #### [facility] [address] [place] [address] [employer] Dean: Bret Vazquez MD Basic Metab w/rfx MGon 09-09 Anion gap [Moles/Vol] 6 mmol/L Low - [facility] Comment on above: Performed By: #### B MPX, CDP #### [address] [address] [employer] Dean: Bret Vazquez MD Performed By: #### E RTPF, CK, ECENZ, VD25 #### [address] [address] [employer] Dean: Bret Vazquez MD Calcium [Mass/Vol] 7.5 mg/dL Low 8.6-10.4 [facility] Comment on above: Performed By: #### B MPX, CDP #### [address] [address] [employer] Dean: Bret Vazquez MD Performed By: #### E RTPF, CK, ECENZ, VD25 #### [address] [address] [employer] Dean: Bret Vazquez MD Chloride [Moles/Vol] 109 mmol/L High 98-107 [facility] Comment on above: Performed By: #### B MPX, CDP #### [address] [address] [employer] Dean: Bret Vazquez MD Performed By: #### E RTPF, CK, ECENZ, VD25 #### [address] [address] [employer] Dean: Bret Vazquez MD CO2 [Moles/Vol] 25 mmol/L Normal 20-31 [facility] Comment on above: Performed By: #### B MPX, CDP #### [address] [address] [employer] Dean: Bret Vazquez MD Performed By: #### E RTPF, CK, ECENZ, VD25 #### [facility] [address] [place] [address] [employer] Dean: Bret Vazquez MD Creatinine [Mass/Vol] 0.63 mg/dL Low 0.70-1.20 [facility] Comment on above: Performed By: #### B MPX, CDP #### [address] [address] [employer] Dean: Bret Vazquez MD Performed By: #### E RTARRON HIGGINS ECENZ, VD25 #### [address] [address] [employer] Dean: Bret Vazquez MD GFR/1.73 sq M.predicted among non-blacks MDRD (S/P/Bld) [Vol rate/Area] mL/min/{1.73_m2} Normal >60 [facility] Comment on above: Result Comment: Effective Jul [...] Performed By: #### B MPX, CDP #### [address] [address] [employer] Dean: Bret Vazquez MD Performed By: #### ARRON MOJICA ECENZ, VD25 #### [address] [address] [employer] Dean: Bret Vazquez MD Glucose [Mass/Vol] 88 mg/dL Normal 70-99 [facility] Comment on above: Performed By: #### Jasmin MPX, CDP #### [address] [address] [employer] Dean: Bret Vazquez MD Performed By: #### Isidro RTPARRON Golden ECENZ, VD25 #### [address] [address] [employer] Dean: Bret Vazquez MD Potassium [Moles/Vol] 4.3 mmol/L Normal 3.7-5.3 [facility] Comment on above: Performed By: #### B MPX, CDP #### [facility] [address] [place] [address] [employer] Dean: Bret Vazquez MD Performed By: #### E RTPF, CK, ECENZ, VD25 #### [facility] [address] [place] [address] [employer] Dean: Bret Vazquez MD Sodium [Moles/Vol] 140 mmol/L Normal 135-144 [facility] Comment on above: Performed By: #### B MPX, CDP #### [facility] [address] [place] [address] [employer] Dean: Bret Vazquez MD Performed By: #### E RTPF, CK, ECENZ, VD25 #### [facility] [address] [place] [address] [employer] Dean: Bert Vazquez MD Urea nitrogen [Mass/Vol] 16 mg/dL Normal 8-23 [facility] Comment on above: Performed By: #### B MPX, CDP #### [facility] [address] [place] [address] [employer] Dean: Bret Vazquez MD Performed By: #### E RTPF, CK, ECENZ, VD25 #### [facility] [address] [place] [address] [employer] Dean: Bret Vazquez MD CBC with Diffon 09-09-2022 Abs. Basophil 0.09 k/uL Normal 0.00-0.20 [facility] Comment on above: Performed By: #### B MPX, CDP #### [facility] [address] [place] [address] [employer] Dean: Bret Vazquez MD Performed By: #### E RTPF, CK, ECENZ, VD25 #### [facility] [address] [place] [address] [employer] Dean: Bret Vazquez MD Abs.Imm.Granulocyte 0.03 k/uL Normal 0.00-0.30 [facility] Comment on above: Performed By: #### B MPX, CDP #### [place] [address] [employer] Dean: Bret Vazquez MD Performed By: #### E RTPF, CK, ECENZ, VD25 #### [place] [address] [employer] Dean: Bret Vazquez MD Abs.Neutrophil (Seg) 4.61 k/uL Normal 1.50-8.10 [facility] Comment on above: Performed By: #### B MPX, CDP #### [place] [address] [employer]: Bret Vazquez MD Performed By: #### E RTPF, CK, ECENZ, VD25 #### [place] [address] [employer] Dean: Bret Vazquez MD Basophils/100 WBC (Bld) 1 % Normal 0-2 [facility] Comment on above: Performed By: #### B MPX, CDP #### [place] [address] [employer]: Bret Vazquez MD Performed By: #### E RTPF, CK, ECENZ, VD25 #### [place] [address] [employer] Dean: Bret Vazquez MD Eosinophils (Bld) [#/Vol] 0.40 10*3/uL Normal 0.00-0.44 [facility] Comment on above: Performed By: #### B MPX, CDP #### [place] [address] [employer]: Bret Vazquez MD Performed By: #### E RTPF, CK, ECENZ, VD25 #### [facility] [address] [place] [address] [employer]: Bret Vazquez MD Eosinophils/100 WBC (Bld) 5 % High 1-4 [facility] Comment on above: Performed By: #### B MPX, CDP #### [facility] [address] [place] [address] [employer]: Bret Vazquez MD Performed By: #### E RTPF, CK, ECENZ, VD25 #### [facility] [address] [place] [address] [employer]: Bret Vazquez MD Erythrocyte distribution width (RBC) [Ratio] 16.2 % High 11.8-14.4 [facility] Comment on above: Performed By: #### B MPX, CDP #### [facility] [address] [place] [address] [employer] Dean: Bret Vazquez MD Performed By: #### E RTPF, CK, ECENZ, VD25 #### [facility] [address] [place] [address] [employer]: Bret Vazquez MD Hematocrit (Bld) [Volume fraction] 22.3 % Low 40.7-50.3 [facility] Comment on above: Performed By: #### B MPX, CDP #### [facility] [address] [place] [address] [employer]: Bret Vazquez MD Performed By: #### E RTPF, CK, ECENZ, VD25 #### [facility] [address] [place] [address] [employer]: Bret Vazquez MD Hemoglobin (Bld) [Mass/Vol] 7.5 g/dL Low 13.0-17.0 [facility] Comment on above: Performed By: #### B MPX, CDP #### [facility] [address] [place] [address] [employer]: Bret Vazquez MD Performed By: #### E RTPF, CK, ECENZ, VD25 #### [address] [address] [employer] Dean: Bret Vazquez MD Immature granulocytes/100 WBC (Bld) 0 % Normal 0 [facility] Comment on above: Performed By: #### B MPX, CDP #### [address] [address] [employer] Dean: Bret Vazquez MD Performed By: #### E RTPF, CK, ECENZ, VD25 #### [address] [address] [employer] Dean: Bret Vazquez MD Lymphocytes (Bld) [#/Vol] 1.88 10*3/uL Normal 1.10-3.70 [facility] Comment on above: Performed By: #### B MPX, CDP #### [address] [address] [employer]: Bret Vazquez MD Performed By: #### E RTPF, CK, ECENZ, VD25 #### [address] [address] [employer] Dean: Bret Vazquez MD Lymphocytes/100 WBC (Bld) 24 % Normal 24-43 [facility] Comment on above: Performed By: #### B MPX, CDP #### [address] [address] [employer] Dean: Bret Vazquez MD Performed By: #### E RTPF, CK, ECENZ, VD25 #### [address] [address] [employer] Dean: Bret Vazquez MD MCH (RBC) [Entitic mass] 31.8 pg Normal 25.2-33.5 [facility] Comment on above: Performed By: #### B MPX, CDP #### [address] [address] [employer] Dean: Bret Vazquez MD Performed By: #### E RTPF, CK, ECENZ, VD25 #### [address] [address] [employer] Dean: Bret Vazquez MD MCHC (RBC) [Mass/Vol] 33.6 g/dL Normal 28.4-34.8 [facility] Comment on above: Performed By: #### B MPX, CDP #### [address] [address] [employer]: Bret Vazquez MD Performed By: #### E RTPF, CK, ECENZ, VD25 #### [place] [address] [employer] Dean: Bret Vazquez MD MCV (RBC) [Entitic vol] 94.5 fL Normal 82.6-102.9 [facility] Comment on above: Performed By: #### B MPX, CDP #### [place] [address] [employer]: Bret Vazquez MD Performed By: #### E RTPF, CK, ECENZ, VD25 #### [place] [address] [employer] Dean: Bret Vazquez MD Monocytes (Bld) [#/Vol] 0.84 10*3/uL Normal 0.10-1.20 [facility] Comment on above: Performed By: #### B MPX, CDP #### [address] [address] [employer] Dean: Bret Vazquez MD Performed By: #### E RTPF, CK, ECENZ, VD25 #### [address] [address] [employer] Dean: Bret Vazquez MD Monocytes/100 WBC (Bld) 11 % Normal 3-12 [facility] Comment on above: Performed By: #### B MPX, CDP #### [address] [address] [employer]: Bret Vazquez MD Performed By: #### E RTPF, CK, ECENZ, VD25 #### [address] [address] [employer] Dean: Bret Vazquez MD Neutrophil (Seg) 59 % Normal 36-65 [facility] Comment on above: Performed By: #### B MPX, CDP #### [address] [address] [employer] Dean: Bret Vazquez MD Performed By: #### E RTPF, CK, ECENZ, VD25 #### [address] [address] [employer] Dean: Bret Vazquez MD NRBC Automated 0.0 per 100 WBC Normal 0.0 [facility] Comment on above: Performed By: #### B MPX, CDP #### [address] [address] [employer] Dean: Bret Vazquez MD Performed By: #### E RTPF, CK, ECENZ, VD25 #### [address] [address] [employer] Dean: Bret Vazquez MD Platelet mean volume (Bld) [Entitic vol] 10.5 fL Normal 8.1-13.5 [facility] Comment on above: Performed By: #### B MPX, CDP #### [address] [address] [employer] Dean: Bret Vazquez MD Performed By: #### E RTPF, CK, ECENZ, VD25 #### [address] [address] [employer] Dean: Bret Vazquez MD Platelets (Bld) [#/Vol] 185 10*3/uL Normal 138-453 [facility] Comment on above: Performed By: #### B MPX, CDP #### [address] [address] [employer] Dean: Bret Vazquez MD Performed By: #### E RTPF, CK, ECENZ, VD25 #### [address] [address] [employer] Dean: Bret Vazquez MD RBC (Bld) [#/Vol] 2.36 10*6/uL Low 4.21-5.77 [facility] Comment on above: Performed By: #### B MPX, CDP #### [address] [address] [employer] Dean: Bret Vazquez MD Performed By: #### E RTPF, CK, ECENZ, VD25 #### [address] [address] [employer] Dean: Bret Vazquez MD RBC morphology finding Nom (Bld) ANISOCYTOSIS PRESENT Normal [facility] Comment on above: Performed By: #### B MPX, CDP #### [address] [address] [employer]: Bret Vazquez MD Performed By: #### E RTPF, CK, ECENZ, VD25 #### [facility] [address] [place] [address] [employer]: Bret Vazquez MD WBC (Bld) [#/Vol] 7.9 10*3/uL Normal 3.5-11.3 [facility] Comment on above: Performed By: #### B MPX, CDP #### [address] [address] [employer]: Bret Vazquez MD Performed By: #### E RTPF, CK, ECENZ, VD25 #### [facility] [address] [place] [address] [employer]: Bret Vazquez MD Basic Metab w/rfx MGon 09-08 Anion gap [Moles/Vol] 4 mmol/L Low 9-17 [facility] Comment on above: Performed By: #### I OCAL, CDP, MG, LACTIC, ALICIA, BNP, BMP #### [facility] [address] [place] [address] [employer]: Bret Vazquez MD Performed By: #### E RTPF, CK, ECENZ, VD25 #### [address] [address] [employer] Dean: Bret Vazquez MD Calcium [Mass/Vol] 7.5 mg/dL Low 8.6-10.4 [facility] Comment on above: Performed By: #### I OCAL, CDP, MG, LACTIC, ALICIA, BNP, BMP #### [facility] [address] [place] [address] [employer]: Bret Vazquez MD Performed By: #### E RTPF, CK, ECENZ, VD25 #### [address] [address] [employer] Dean: Bret Vazquez MD Chloride [Moles/Vol] 105 mmol/L Normal 98-107 [facility] Comment on above: Performed By: #### I OCAL, CDP, MG, LACTIC, ALICIA, BNP, BMP #### [facility] [address] [place] [address] [employer]: Bret Vazquez MD Performed By: #### E RTPF, CK, ECENZ, VD25 #### [address] [address] [employer] Dean: Bret Vazquez MD CO2 [Moles/Vol] 26 mmol/L Normal 20-31 [facility] Comment on above: Performed By: #### I OCAL, CDP, MG, LACTIC, ALICIA, BNP, BMP #### [address] [address] [employer]: Bret Vazquez MD Performed By: #### E RTPF, CK, ECENZ, VD25 #### [address] [address] [employer] Dean: Bret Vazquez MD Creatinine [Mass/Vol] 0.80 mg/dL Normal 0.70-1.20 [facility] Comment on above: Performed By: #### I OCAL, CDP, MG, LACTIC, ALICIA, BNP, BMP #### [address] [address] [employer]: Bret Vazquez MD Performed By: #### E RTPF, CK, ECENZ, VD25 #### [address] [address] [employer] Dean: Bret Vazquez MD GFR/1.73 sq M.predicted among non-blacks MDRD (S/P/Bld) [Vol rate/Area] mL/min/{1.73_m2} Normal >60 [facility] Comment on above: Result Comment: Effective Jul [...] CDP, MG, LACTIC, ALICIA, BNP, BMP #### [address] [address] [employer]: Bret Vazquez MD Performed By: #### E RTPF, CK, ECENZ, VD25 #### [facility] [address] [place] [address] [employer]: Bret Vazquez MD Glucose [Mass/Vol] 93 mg/dL Normal 70-99 [facility] Comment on above: Performed By: #### I OCAL, CDP, MG, LACTIC, ALICIA, BNP, BMP #### [facility] [address] [place] [address] [employer]: Bret Vazquez MD Performed By: #### E RTPF, CK, ECENZ, VD25 #### [address] [address] [employer]: Bret Vazquez MD Potassium [Moles/Vol] 4.5 mmol/L Normal 3.7-5.3 [facility] Comment on above: Performed By: #### I OCAL, CDP, MG, LACTIC, ALICIA, BNP, BMP #### [address] [address] [employer]: Bret Vazquez MD Performed By: #### E RTPF, CK, ECENZ, VD25 #### [address] [address] [employer]: Bret Vazquez MD Sodium [Moles/Vol] 135 mmol/L Normal 135-144 [facility] Comment on above: Performed By: #### I OCAL, CDP, MG, LACTIC, ALICIA, BNP, BMP #### [facility] [address] [place] [address] [employer]: Bret Vazquez MD Performed By: #### E RTPF, CK, ECENZ, VD25 #### [facility] [address] [place] [address] [employer]: Bret Vazquez MD Urea nitrogen [Mass/Vol] 16 mg/dL Normal 8-23 [facility] Comment on above: Performed By: #### I OCAL, CDP, MG, LACTIC, ALICIA, BNP, BMP #### [address] [address] [employer]: Bret Vazquez MD Performed By: #### E RTPF, CK, ECENZ, VD25 #### [address] [address] [employer] Dean: Bret Vazquez MD CBC with Diffon 09-08-2022 Abs. Basophil 0.04 k/uL Normal 0.00-0.20 [facility] Comment on above: Performed By: #### I OCAL, CDP, MG, LACTIC, ALICIA, BNP, BMP #### [address] [address] [employer] Dean: Bret Vazquez MD Performed By: #### E RTPF, CK, ECENZ, VD25 #### [address] [address] [employer] Dean: Bret Vazquez MD Abs.Imm.Granulocyte 0.03 k/uL Normal 0.00-0.30 [facility] Comment on above: Performed By: #### I OCAL, CDP, MG, LACTIC, ALICIA, BNP, BMP #### [address] [address] [employer]: Bret Vazquez MD Performed By: #### E RTPF, CK, ECENZ, VD25 #### [facility] [address] [place] [address] [employer] Dean: Bret Vazquez MD Abs.Neutrophil (Seg) 4.96 k/uL Normal 1.50-8.10 [facility] Comment on above: Performed By: #### I OCAL, CDP, MG, LACTIC, ALICIA, BNP, BMP #### [address] [address] [employer]: Bret Vazquez MD Performed By: #### E RTPF, CK, ECENZ, VD25 #### [address] [address] [employer] Dean: Bret Vazquez MD Basophils/100 WBC (Bld) 1 % Normal 0-2 [facility] Comment on above: Performed By: #### I OCAL, CDP, MG, LACTIC, ALICIA, BNP, BMP #### [address] [address] [employer]: Bret Vazquez MD Performed By: #### E RTPF, CK, ECENZ, VD25 #### [address] [address] [employer] Dean: Bret Vazquez MD Eosinophils (Bld) [#/Vol] 0.21 10*3/uL Normal 0.00-0.44 [facility] Comment on above: Performed By: #### I OCAL, CDP, MG, LACTIC, ALICIA, BNP, BMP #### [address] [address] [employer] Dean: Bret Vazquez MD Performed By: #### E RTPF, CK, ECENZ, VD25 #### [address] [address] [employer] Dean: Bret Vazquez MD Eosinophils/100 WBC (Bld) 3 % Normal 1-4 [facility] Comment on above: Performed By: #### I OCAL, CDP, MG, LACTIC, ALICIA, BNP, BMP #### [address] [address] [employer] Dean: Bret Vazquez MD Performed By: #### E RTPF, CK, ECENZ, VD25 #### [address] [address] [employer] Dean: Bret Vazquez MD Erythrocyte distribution width (RBC) [Ratio] 16.4 % High 11.8-14.4 [facility] Comment on above: Performed By: #### I OCAL, CDP, MG, LACTIC, ALICIA, BNP, BMP #### [address] [address] [employer] Dean: Bret Vazquez MD Performed By: #### E RTPF, CK, ECENZ, VD25 #### [facility] [address] [place] [address] [employer]: Bret Vazquez MD Hematocrit (Bld) [Volume fraction] 22.9 % Low 40.7-50.3 [facility] Comment on above: Performed By: #### I OCAL, CDP, MG, LACTIC, ALICIA, BNP, BMP #### [address] [address] [employer] Dean: Bret Vazquez MD Performed By: #### E RTPF, CK, ECENZ, VD25 #### [facility] [address] [place] [address] [employer] Dean: Bret Vazquez MD Hemoglobin (Bld) [Mass/Vol] 7.5 g/dL Low 13.0-17.0 [facility] Comment on above: Performed By: #### I OCAL, CDP, MG, LACTIC, ALICIA, BNP, BMP #### [facility] [address] [place] [address] [employer] Dean: Bret Vazquez MD Performed By: #### E RTPF, CK, ECENZ, VD25 #### [facility] [address] [place] [address] [employer] Dean: Bret Vazquez MD Immature granulocytes/100 WBC (Bld) 0 % Normal 0 [facility] Comment on above: Performed By: #### I OCAL, CDP, MG, LACTIC, ALICIA, BNP, BMP #### [address] [address] [employer] Dean: Bert Vazquez MD Performed By: #### E RTPF, CK, ECENZ, VD25 #### [facility] [address] [place] [address] [employer] Dean: Bret Vazquez MD Lymphocytes (Bld) [#/Vol] 1.39 10*3/uL Normal 1.10-3.70 [facility] Comment on above: Performed By: #### I OCAL, CDP, MG, LACTIC, ALICIA, BNP, BMP #### [facility] [address] [place] [address] [employer] Dean: Bret Vazquez MD Performed By: #### E RTPF, CK, ECENZ, VD25 #### [facility] [address] [place] [address] [employer] Dean: Bret Vazquez MD Lymphocytes/100 WBC (Bld) 19 % Low 24-43 [facility] Comment on above: Performed By: #### I OCAL, CDP, MG, LACTIC, ALICIA, BNP, BMP #### [facility] [address] [place] [address] [employer] Dean: Bret Vazquez MD Performed By: #### E RTPF, CK, ECENZ, VD25 #### [facility] [address] [place] [address] [employer] Dean: Bret Vazquez MD MCH (RBC) [Entitic mass] 31.4 pg Normal 25.2-33.5 [facility] Comment on above: Performed By: #### I OCAL, CDP, MG, LACTIC, ALICIA, BNP, BMP #### [facility] [address] [place] [address] [employer]: Bret Vazquez MD Performed By: #### E RTPF, CK, ECENZ, VD25 #### [address] [address] [employer] Dean: Bret Vazquez MD MCHC (RBC) [Mass/Vol] 32.8 g/dL Normal 28.4-34.8 [facility] Comment on above: Performed By: #### I OCAL, CDP, MG, LACTIC, ALICIA, BNP, BMP #### [address] [address] [employer] Dean: Bret Vazquez MD Performed By: #### E RTPF, CK, ECENZ, VD25 #### [address] [address] [employer] Dean: Bret Vazquez MD MCV (RBC) [Entitic vol] 95.8 fL Normal 82.6-102.9 [facility] Comment on above: Performed By: #### I OCAL, CDP, MG, LACTIC, ALICIA, BNP, BMP #### [address] [address] [employer] Dean: Bret Vazquez MD Performed By: #### E RTPF, CK, ECENZ, VD25 #### [address] [address] [employer] Dean: Bret Vazquez MD Monocytes (Bld) [#/Vol] 0.88 10*3/uL Normal 0.10-1.20 [facility] Comment on above: Performed By: #### I OCAL, CDP, MG, LACTIC, ALICIA, BNP, BMP #### [address] [address] [employer] Dean: Bret Vazquez MD Performed By: #### E RTPF, CK, ECENZ, VD25 #### [address] [address] [employer] Dean: Bret Vazquez MD Monocytes/100 WBC (Bld) 12 % Normal 3-12 [facility] Comment on above: Performed By: #### I OCAL, CDP, MG, LACTIC, ALICIA, BNP, BMP #### [address] [address] [employer] Dean: Bret Vazquez MD Performed By: #### E RTPF, CK, ECENZ, VD25 #### [address] [address] [employer] Dean: Bret Vazquez MD Neutrophil (Seg) 66 % High 36-65 [facility] Comment on above: Performed By: #### I OCAL, CDP, MG, LACTIC, ALICIA, BNP, BMP #### [place] [address] [employer]: Bret Vazquez MD Performed By: #### E RTPF, CK, ECENZ, VD25 #### [place] [address] [employer] Dean: Bret Vazquez MD NRBC Automated 0.0 per 100 WBC Normal 0.0 [facility] Comment on above: Performed By: #### I OCAL, CDP, MG, LACTIC, ALICIA, BNP, BMP #### [place] [address] [employer]: Bret Vazquez MD Performed By: #### E RTPF, CK, ECENZ, VD25 #### [place] [address] [employer]: Bret Vazquez MD Platelet mean volume (Bld) [Entitic vol] 10.8 fL Normal 8.1-13.5 [facility] Comment on above: Performed By: #### I OCAL, CDP, MG, LACTIC, ALICIA, BNP, BMP #### [address] [address] [employer] Dean: Bret Vazquez MD Performed By: #### E RTPF, CK, ECENZ, VD25 #### [address] [address] [employer] Dean: Bret Vazquez MD Platelets (Bld) [#/Vol] 162 10*3/uL Normal 138-453 [facility] Comment on above: Performed By: #### I OCAL, CDP, MG, LACTIC, ALICIA, BNP, BMP #### [address] [address] [employer] Dean: Bret Vazquez MD Performed By: #### E RTPF, CK, ECENZ, VD25 #### [address] [address] [employer] Dean: Bret Vazquez MD RBC (Bld) [#/Vol] 2.39 10*6/uL Low 4.21-5.77 [facility] Comment on above: Performed By: #### I OCAL, CDP, MG, LACTIC, ALICIA, BNP, BMP #### [address] [address] [employer] Dean: Bret Vazquez MD Performed By: #### E RTPF, CK, ECENZ, VD25 #### [address] [address] [employer] Dean: Bret Vazquez MD RBC morphology finding Nom (Bld) ANISOCYTOSIS PRESENT Normal [facility] Comment on above: Performed By: #### I OCAL, CDP, MG, LACTIC, ALICIA, BNP, BMP #### [address] [address] [employer] Dean: Bret Vazquez MD Performed By: #### E RTPF, CK, ECENZ, VD25 #### [address] [address] [employer] Dean: Bret Vazquez MD WBC (Bld) [#/Vol] 7.5 10*3/uL Normal 3.5-11.3 [facility] Comment on above: Performed By: #### I OCAL, CDP, MG, LACTIC, ALICIA, BNP, BMP #### [address] [address] [employer] Dean: Bret Vazquez MD Performed By: #### E RTPF, CK, ECENZ, VD25 #### [address] [address] [employer] Dean: Bret Vazquez MD Magnesiumon 09-08-2022 Magnesium [Mass/Vol] 1.9 mg/dL Normal 1.6-2.6 [facility] Comment on above: Performed By: #### I OCAL, CDP, MG, LACTIC, ALICIA, BNP, BMP #### [address] [address] [employer] Dean: Bret Vazquez MD Performed By: #### E RTPF, CK, ECENZ, VD25 #### [address] [address] [employer] Dean: Bret Vazquez MD Basic Metab w/rfx MGon 09-07 Anion gap [Moles/Vol] 7 mmol/L Low 9-17 [facility] Comment on above: Performed By: #### I OCAL, CDP, MG, LACTIC, ALICIA, BNP, BMP #### [address] [address] [employer] Dean: Bret Vazquez MD Performed By: #### E RTPF, CK, ECENZ, VD25 #### [facility] [address] [place] [address] [employer] Dean: Bret Vazquez MD Calcium [Mass/Vol] 7.7 mg/dL Low 8.6-10.4 [facility] Comment on above: Performed By: #### I OCAL, CDP, MG, LACTIC, ALICIA, BNP, BMP #### [facility] [address] [place] [address] [employer] Dean: Bret Vazquez MD Performed By: #### E RTPF, CK, ECENZ, VD25 #### [address] [address] [employer] Dean: Bret Vazquez MD Chloride [Moles/Vol] 103 mmol/L Normal 98-107 [facility] Comment on above: Performed By: #### I OCAL, CDP, MG, LACTIC, ALICIA, BNP, BMP #### [address] [address] [employer] Dean: Bret Vazquez MD Performed By: #### E RTPF, CK, ECENZ, VD25 #### [address] [address] [employer] Dean: Bret Vazquez MD CO2 [Moles/Vol] 22 mmol/L Normal 20-31 [facility] Comment on above: Performed By: #### I OCAL, CDP, MG, LACTIC, ALICIA, BNP, BMP #### [address] [address] [employer] Dean: Bret Vazquez MD Performed By: #### E RTPF, CK, ECENZ, VD25 #### [address] [address] [employer] Dean: Bret Vazquez MD Creatinine [Mass/Vol] 0.62 mg/dL Low 0.70-1.20 [facility] Comment on above: Performed By: #### I OCAL, CDP, MG, LACTIC, ALICIA, BNP, BMP #### [address] [address] [employer] Dean: Bret Vazquez MD Performed By: #### E RTPF, CK, ECENZ, VD25 #### [address] [address] [employer] Dean: Bret Vazquez MD GFR/1.73 sq M.predicted among non-blacks MDRD (S/P/Bld) [Vol rate/Area] mL/min/{1.73_m2} Normal >60 [facility] Comment on above: Result Comment: Effective Jul [...] CDP, MG, LACTIC, ALICIA, BNP, BMP #### [address] [address] [employer] Dean: Bret Vazquez MD Performed By: #### E RTPF, CK, ECENZ, VD25 #### [address] [address] [employer] Dean: Bret Vazquez MD Glucose [Mass/Vol] 149 mg/dL High 70-99 [facility] Comment on above: Performed By: #### I OCAL, CDP, MG, LACTIC, ALICIA, BNP, BMP #### [address] [address] [employer] Dean: Bret Vazquez MD Performed By: #### E RTPF, CK, ECENZ, VD25 #### [address] [address] [employer] Dean: Bret Vazquez MD Potassium [Moles/Vol] 4.9 mmol/L Normal 3.7-5.3 [facility] Comment on above: Performed By: #### I OCAL, CDP, MG, LACTIC, ALICIA, BNP, BMP #### [address] [address] [employer] Dean: Bret Vazquez MD Performed By: #### E RTPF, CK, ECENZ, VD25 #### [facility] [address] [place] [address] [employer] Dean: Bret Vazquez MD Sodium [Moles/Vol] 132 mmol/L Low 135-144 [facility] Comment on above: Performed By: #### I OCAL, CDP, MG, LACTIC, ALICIA, BNP, BMP #### [facility] [address] [place] [address] [employer] Dean: Bret Vazquez MD Performed By: #### E RTPF, CK, ECENZ, VD25 #### [address] [address] [employer] Dean: Bret Vazquez MD Urea nitrogen [Mass/Vol] 13 mg/dL Normal 8-23 [facility] Comment on above: Performed By: #### I OCAL, CDP, MG, LACTIC, ALICIA, BNP, BMP #### [facility] [address] [place] [address] [employer] Dean: Bret Vazquez MD Performed By: #### E RTPF, CK, ECENZ, VD25 #### [facility] [address] [place] [address] [employer] Dean: Bret Vazquez MD CBC with Diffon 09-07-2022 Abs. Basophil <0.03 Normal 0.00-0.20 [facility] Comment on above: Performed By: #### I OCAL, CDP, MG, LACTIC, ALICIA, BNP, BMP #### [facility] [address] [place] [address] [employer]: Bret Vazquez MD Performed By: #### E RTPF, CK, ECENZ, VD25 #### [facility] [address] [place] [address] [employer] Dean: Bret Vazquez MD Abs. Eosinophil <0.03 Normal 0.00-0.44 [facility] Comment on above: Performed By: #### I OCAL, CDP, MG, LACTIC, ALICIA, BNP, BMP #### [address] [address] [employer] Dean: Bret Vazquez MD Performed By: #### E RTPF, CK, ECENZ, VD25 #### [address] [address] [employer] Dean: Bret Vazquez MD Abs.Imm.Granulocyte 0.05 k/uL Normal 0.00-0.30 [facility] Comment on above: Performed By: #### I OCAL, CDP, MG, LACTIC, ALICIA, BNP, BMP #### [address] [address] [employer]: Bret Vazquez MD Performed By: #### E RTPF, CK, ECENZ, VD25 #### [place] [address] [employer]: Bret Vazquez MD Abs.Neutrophil (Seg) 7.23 k/uL Normal 1.50-8.10 [facility] Comment on above: Performed By: #### I OCAL, CDP, MG, LACTIC, ALICIA, BNP, BMP #### [place] [address] [employer]: Bret Vazquez MD Performed By: #### E RTPF, CK, ECENZ, VD25 #### [address] [address] [employer] Dean: Bret Vazquez MD Basophils/100 WBC (Bld) 0 % Normal 0-2 [facility] Comment on above: Performed By: #### I OCAL, CDP, MG, LACTIC, ALICIA, BNP, BMP #### [address] [address] [employer] Dean: Bret Vazquez MD Performed By: #### E RTPF, CK, ECENZ, VD25 #### [facility] [address] [place] [address] [employer]: Bret Vazquez MD Eosinophils/100 WBC (Bld) 0 % Low 1-4 [facility] Comment on above: Performed By: #### I OCAL, CDP, MG, LACTIC, ALICIA, BNP, BMP #### [facility] [address] [place] [address] [employer]: Bret Vazquez MD Performed By: #### E RTPF, CK, ECENZ, VD25 #### [facility] [address] [place] [address] [employer]: Bret Vazquez MD Erythrocyte distribution width (RBC) [Ratio] 16.4 % High 11.8-14.4 [facility] Comment on above: Performed By: #### I OCAL, CDP, MG, LACTIC, ALICIA, BNP, BMP #### [facility] [address] [place] [address] [employer]: Bret Vazquez MD Performed By: #### E RTPF, CK, ECENZ, VD25 #### [facility] [address] [place] [address] [employer]: Bret Vazquez MD Hematocrit (Bld) [Volume fraction] 25.6 % Low 40.7-50.3 [facility] Comment on above: Performed By: #### I OCAL, CDP, MG, LACTIC, ALICIA, BNP, BMP #### [facility] [address] [place] [address] [employer]: Bret Vazquez MD Performed By: #### E RTPF, CK, ECENZ, VD25 #### [facility] [address] [place] [address] [employer]: Bret Vazquez MD Hemoglobin (Bld) [Mass/Vol] 7.6 g/dL Low 13.0-17.0 [facility] Comment on above: Performed By: #### I OCAL, CDP, MG, LACTIC, ALICIA, BNP, BMP #### [facility] [address] [place] [address] [employer]: Bret Vazquez MD Performed By: #### E RTPF, CK, ECENZ, VD25 #### [facility] [address] [place] [address] [employer]: Bret Vazquez MD Immature granulocytes/100 WBC (Bld) 1 % High 0 [facility] Comment on above: Performed By: #### I OCAL, CDP, MG, LACTIC, ALICIA, BNP, BMP #### [facility] [address] [place] [address] [employer]: Bret Vazquez MD Performed By: #### E RTPF, CK, ECENZ, VD25 #### [facility] [address] [place] [address] [employer]: Brte Vazquez MD Lymphocytes (Bld) [#/Vol] 0.89 10*3/uL Low 1.10-3.70 [facility] Comment on above: Performed By: #### I OCAL, CDP, MG, LACTIC, ALICIA, BNP, BMP #### [facility] [address] [place] [address] [employer]: Bret Vazquez MD Performed By: #### E RTPF, CK, ECENZ, VD25 #### [facility] [address] [place] [address] [employer]: Bret Vazquez MD Lymphocytes/100 WBC (Bld) 10 % Low 24-43 [facility] Comment on above: Performed By: #### I OCAL, CDP, MG, LACTIC, ALICIA, BNP, BMP #### [facility] [address] [place] [address] [employer]: Bret Vazquez MD Performed By: #### E RTPF, CK, ECENZ, VD25 #### [address] [address] [employer]: Bret Vazquez MD MCH (RBC) [Entitic mass] 31.7 pg Normal 25.2-33.5 [facility] Comment on above: Performed By: #### I OCAL, CDP, MG, LACTIC, ALICIA, BNP, BMP #### [address] [address] [employer]: Bret Vazquez MD Performed By: #### E RTPF, CK, ECENZ, VD25 #### [address] [address] [employer]: Bret Vazquez MD MCHC (RBC) [Mass/Vol] 29.7 g/dL Normal 28.4-34.8 [facility] Comment on above: Performed By: #### I OCAL, CDP, MG, LACTIC, ALICIA, BNP, BMP #### [address] [address] [employer]: Bret Vazquez MD Performed By: #### E RTPF, CK, ECENZ, VD25 #### [address] [address] [employer] Dean: Bret Vazquez MD MCV (RBC) [Entitic vol] 106.7 fL High 82.6-102.9 [facility] Comment on above: Performed By: #### I OCAL, CDP, MG, LACTIC, ALICIA, BNP, BMP #### [address] [address] [employer]: Bret Vazquez MD Performed By: #### E RTPF, CK, ECENZ, VD25 #### [address] [address] [employer] Dean: Bret Vazquez MD Monocytes (Bld) [#/Vol] 1.00 10*3/uL Normal 0.10-1.20 [facility] Comment on above: Performed By: #### I OCAL, CDP, MG, LACTIC, ALICIA, BNP, BMP #### [address] [address] [employer]: Bret Vazquez MD Performed By: #### E RTPF, CK, ECENZ, VD25 #### [address] [address] [employer]: Bret Vazquez MD Monocytes/100 WBC (Bld) 11 % Normal 3-12 [facility] Comment on above: Performed By: #### I OCAL, CDP, MG, LACTIC, ALICIA, BNP, BMP #### [address] [address] [employer]: Bret Vazquez MD Performed By: #### E RTPF, CK, ECENZ, VD25 #### [address] [address] [employer]: Bret Vazquez MD Neutrophil (Seg) 79 % High 36-65 [facility] Comment on above: Performed By: #### I OCAL, CDP, MG, LACTIC, ALICIA, BNP, BMP #### [address] [address] [employer]: Bret Vazquez MD Performed By: #### E RTPF, CK, ECENZ, VD25 #### [address] [address] [employer]: Bret Vazquez MD NRBC Automated 0.0 per 100 WBC Normal 0.0 [facility] Comment on above: Performed By: #### I OCAL, CDP, MG, LACTIC, ALICIA, BNP, BMP #### [address] [address] [employer]: Bret Vazquez MD Performed By: #### E RTPF, CK, ECENZ, VD25 #### [address] [address] [employer]: Bret Vazquez MD Platelet mean volume (Bld) [Entitic vol] 10.7 fL Normal 8.1-13.5 [facility] Comment on above: Performed By: #### I OCAL, CDP, MG, LACTIC, ALICIA, BNP, BMP #### [address] [address] [employer]: Bret Vazquez MD Performed By: #### E RTPF, CK, ECENZ, VD25 #### [address] [address] [employer]: Bret Vazquez MD Platelets (Bld) [#/Vol] 206 10*3/uL Normal 138-453 [facility] Comment on above: Performed By: #### I OCAL, CDP, MG, LACTIC, ALICIA, BNP, BMP #### [address] [address] [employer]: Bret Vazquez MD Performed By: #### E RTPF, CK, ECENZ, VD25 #### [address] [address] [employer]: Bret Vazquez MD RBC (Bld) [#/Vol] 2.40 10*6/uL Low 4.21-5.77 [facility] Comment on above: Performed By: #### I OCAL, CDP, MG, LACTIC, ALICIA, BNP, BMP #### [address] [address] [employer]: Bret Vazquez MD Performed By: #### E RTPF, CK, ECENZ, VD25 #### [address] [address] [employer]: Bret Vazquez MD RBC morphology finding Nom (Bld) ANISOCYTOSIS PRESENT Normal [facility] Comment on above: Result Comment: MACR OCYTOSIS PRESENT Performed By: #### I OCAL, CDP, MG, LACTIC, ALICIA, BNP, BMP #### [facility] [address] [place] [address] [employer]: Bret Vazquez MD Performed By: #### E RTPF, CK, ECENZ, VD25 #### [facility] [address] [place] [address] [employer]: Bret Vazquez MD WBC (Bld) [#/Vol] 9.2 10*3/uL Normal 3.5-11.3 [facility] Comment on above: Performed By: #### I OCAL, CDP, MG, LACTIC, ALICIA, BNP, BMP #### [facility] [address] [place] [address] [employer]: Bret Vazquez MD Performed By: #### E RTPF, CK, ECENZ, VD25 #### [facility] [address] [place] [address] [employer]: Bret Vazquez MD Hgb/Hcton 09-07-2022 Hematocrit (Bld) [Volume fraction] 22.7 % Low 40.7-50.3 [facility] Comment on above: Performed By: #### GINI STARKS UMICAO #### [facility] [address] [place] [address] [employer]: Bret Vazquez MD Performed By: #### H H #### [facility] [address] [place] [address] [employer]: Bret Vazquez MD Hemoglobin (Bld) [Mass/Vol] 6.9 g/dL Critically low 13.0-17.0 [facility] Comment on above: Performed By: #### D AU, UAX, UMICAO #### [address] [address] [employer]: Bret Vazquez MD Performed By: #### H H #### [address] [address] [employer]: Bret Vazquez MD Hematocrit (Bld) [Volume fraction] 19.2 % Low 40.7-50.3 [facility] Comment on above: Performed By: #### B MPX, CDP #### [address] [address] [employer]: Bret Vazquez MD Performed By: #### E RTPF, CK, ECENZ, VD25 #### [address] [address] [employer]: Bret Vazquez MD Hemoglobin (Bld) [Mass/Vol] 6.2 g/dL Critically low 13.0-17.0 [facility] Comment on above: Performed By: #### B MPX, CDP #### [address] [address] [employer]: Bret Vazquez MD Performed By: #### E RTPF, CK, ECENZ, VD25 #### [address] [address] [employer]: Bret Vazquez MD Magnesiumon 09-07-2022 Magnesium [Mass/Vol] 2.1 mg/dL Normal 1.6-2.6 [facility] Comment on above: Performed By: #### I OCAL, CDP, MG, LACTIC, ALICIA, BNP, BMP #### [address] [address] [employer] Dean: Bret Vazquez MD Performed By: #### E RTPF, CK, ECENZ, VD25 #### [facility] [address] [place] [address] [employer] Dean: Bret Vazquez MD XR CHEST PORTABLEon 09-07-20 [...] Bry Becker MD 09/07/22 Final result Normal [facility] Basic Metab w/rfx MGon 09-06 Anion gap [Moles/Vol] 9 mmol/L Normal 9-17 [facility] Comment on above: Performed By: #### D SENAIT UAX, UMICAO #### [facility] [address] [place] [address] [phone] [employer] Dean: Bret Vazquez MD Performed By: #### E KLARISSA LOPEZEG #### [facility] [address] [place] [address] [phone] [employer] Dean: Bret Vazquez MD Calcium [Mass/Vol] 7.4 mg/dL Low 8.6-10.4 [facility] Comment on above: Performed By: #### Jose R SAPP, UAX, UMICAO #### [facility] [address] [place] [address] [employer] Dean: Bret Vazquez MD Performed By: #### E RTBakariF GHLTEG #### [facility] [address] [place] [address] [employer] Dean: Bret Vazquez MD Chloride [Moles/Vol] 104 mmol/L Normal 98-107 [facility] Comment on above: Performed By: #### GINI STARKS, UMICAO #### [facility] [address] [place] [address] [employer] Dean: Bret Vazquez MD Performed By: #### E RTRANDOLPH HIGGINSLTEG #### [address] [address] [employer] Dean: Bret Vazquez MD CO2 [Moles/Vol] 22 mmol/L Normal 20-31 [facility] Comment on above: Performed By: #### GINI STARKS, UMICAO #### [address] [address] [employer] Dean: Bret Vazquez MD Performed By: #### Isidro RTKLARISSA HIGGINSEG #### [address] [address] [employer] Dean: Bret Vazquez MD Creatinine [Mass/Vol] 0.59 mg/dL Low 0.70-1.20 [facility] Comment on above: Performed By: #### GINI STARKS, UMICAO #### [address] [address] [employer] Dean: Bret Vazquez MD Performed By: #### Isidro RTRONALDO GHLTEG #### [address] [address] [employer] Dean: Bret Vazquez MD GFR/1.73 sq M.predicted among non-blacks MDRD (S/P/Bld) [Vol rate/Area] mL/min/{1.73_m2} Normal >60 [facility] Comment on above: Result Comment: Effective Jul [...] renal tubular secretion. Performed By: #### GINI STARKS UMICAO #### [facility] [address] [place] [address] [employer] Dean: Bret Vazquez MD Performed By: #### CHRISTY MOJICA #### [facility] [address] [place] [address] [employer] Dean: Bret Vazquez MD Glucose [Mass/Vol] 175 mg/dL High 70-99 [facility] Comment on above: Performed By: #### GINI STARKS UMICAO #### [facility] [address] [place] [address] [employer] Dean: Bret Vazquez MD Performed By: #### CHRISTY MOJICA #### [facility] [address] [place] [address] [employer] Dean: Bret Vazquez MD Potassium [Moles/Vol] 4.5 mmol/L Normal 3.7-5.3 [facility] Comment on above: Performed By: #### GINI STARKS UMICAO #### [facility] [address] [place] [address] [employer] Dean: Bret Vazquez MD Performed By: #### CHRISTY MOJICA #### [facility] [address] [place] [address] [employer] Dean: Bret Vazquez MD Sodium [Moles/Vol] 135 mmol/L Normal 135-144 [facility] Comment on above: Performed By: #### GINI STARKS, UMICAO #### [facility] [address] [place] [address] [employer] Dean: Bret Vazquez MD Performed By: #### CHRISTY MOJICA #### [facility] [address] [place] [address] [employer] Dean: Bret Vazquez MD Urea nitrogen [Mass/Vol] 11 mg/dL Normal 8-23 [facility] Comment on above: Performed By: #### Jose R SAPP, UAX, UMICAO #### [facility] [address] [place] [address] [employer] Dean: Bret Vazquez MD Performed By: #### E RTRANDOLPH HIGGINSLTEG #### [facility] [address] [place] [address] [employer] Dean: Bret Vazquez MD Basic Metabolic Profon 09-06 Anion gap [Moles/Vol] 7 mmol/L Low 9-17 [facility] Comment on above: Performed By: #### Jose R SAPP UAPriti, UMICAO #### [facility] [address] [place] [address] [employer] Dean: Bret Vazquez MD Performed By: #### E RTCHRISTY HIGGINS #### [facility] [address] [place] [address] [employer] Dean: Bret Vazquez MD Calcium [Mass/Vol] 7.8 mg/dL Low 8.6-10.4 [facility] Comment on above: Performed By: #### Jose R SAPP UAX, UMICAO #### [facility] [address] [place] [address] [employer] Dean: Bret Vazquez MD Performed By: #### E RTCHRISTY HIGGINS #### [facility] [address] [place] [address] [employer] Dean: Bret Vazquez MD Chloride [Moles/Vol] 107 mmol/L Normal 98-107 [facility] Comment on above: Performed By: #### Jose R SAPP, UAX, UMICAO #### [facility] [address] [place] [address] [employer] Dean: Bret Vazquez MD Performed By: #### CHRISYT MOJICA #### [facility] [address] [place] [address] [employer] Dean: Bret Vazquez MD CO2 [Moles/Vol] 23 mmol/L Normal 20-31 [facility] Comment on above: Performed By: #### GINI STARKS UMICAO #### [facility] [address] [place] [address] [employer] Dean: Bret Vazqeuz MD Performed By: #### CHRISTY MOJICA #### [facility] [address] [place] [address] [employer] Dean: Bret Vazquez MD Creatinine [Mass/Vol] 0.60 mg/dL Low 0.70-1.20 [facility] Comment on above: Performed By: #### GINI STARKS UMICAO #### [facility] [address] [place] [address] [employer] Dean: Bret Vazquez MD Performed By: #### CHRISTY MOJICA #### [facility] [address] [place] [address] [employer] Dean: Bret Vazquez MD GFR/1.73 sq M.predicted among non-blacks MDRD (S/P/Bld) [Vol rate/Area] mL/min/{1.73_m2} Normal >60 [facility] Comment on above: Result Comment: Effective Jul [...] tubular secretion. Performed By: #### GINI STARKS, UMICAO #### [facility] [address] [place] [address] [employer] Dean: Bret Vazquez MD Performed By: #### CHRISTY MOJICA #### [facility] [address] [place] [address] [employer] Dean: Bret Vazquez MD Glucose [Mass/Vol] 155 mg/dL High 70-99 [facility] Comment on above: Performed By: #### Jose R SAPP, UAX, UMICAO #### [facility] [address] [place] [address] [employer] Dean: Bret Vazquez MD Performed By: #### CHRISTY MOJICA #### [facility] [address] [place] [address] [employer] Dean: Bret Vazquez MD Potassium [Moles/Vol] 5.0 mmol/L Normal 3.7-5.3 [facility] Comment on above: Performed By: #### GINI STARKS, UMICAO #### [facility] [address] [place] [address] [employer] Dean: Bret Vazquez MD Performed By: #### CHRISTY MOJICA #### [facility] [address] [place] [address] [employer] Dean: Bret Vazquez MD Sodium [Moles/Vol] 137 mmol/L Normal 135-144 [facility] Comment on above: Performed By: #### Jose R SAPP, UAX, UMICAO #### [facility] [address] [place] [address] [employer] Dean: rBet Vazquez MD Performed By: #### CHRISTY MOJICA #### [facility] [address] [place] [address] [employer] Dean: Bret Vazquez MD Urea nitrogen [Mass/Vol] 11 mg/dL Normal 8-23 [facility] Comment on above: Performed By: #### D AU, UAX, UMICAO #### [address] [address] [employer] Dean: Bret Vazquez MD Performed By: #### E RTPF, GHLTEG #### [address] [address] [employer] Dean: Bret Vazquez MD Anion gap [Moles/Vol] 11 mmol/L Normal 9-17 [facility] Comment on above: Performed By: #### I OCAL, CDP, MG, LACTIC, ALICIA, BNP, BMP #### [address] [address] [employer] Dean: Bret Vazquez MD Performed By: #### E RTPF, CK, ECENZ, VD25 #### [address] [address] [employer] Dean: Bret Vazquez MD Calcium [Mass/Vol] 7.5 mg/dL Low 8.6-10.4 [facility] Comment on above: Performed By: #### I OCAL, CDP, MG, LACTIC, ALICIA, BNP, BMP #### [address] [address] [employer] Dean: Bret Vazquez MD Performed By: #### E RTPF, CK, ECENZ, VD25 #### [address] [address] [employer] Dean: Bret Vazquez MD Chloride [Moles/Vol] 104 mmol/L Normal 98-107 [facility] Comment on above: Performed By: #### I OCAL, CDP, MG, LACTIC, ALICIA, BNP, BMP #### [address] [address] [employer] Dean: Bret Vazquez MD Performed By: #### E RTPF, CK, ECENZ, VD25 #### [address] [address] [employer] Dean: Bret Vazquez MD CO2 [Moles/Vol] 20 mmol/L Normal 20-31 [facility] Comment on above: Performed By: #### I OCAL, CDP, MG, LACTIC, ALICIA, BNP, BMP #### [address] [address] [employer] Dean: Bret Vazquez MD Performed By: #### E RTPF, CK, ECENZ, VD25 #### [address] [address] [employer] Dean: Bret Vazquez MD Creatinine [Mass/Vol] 0.62 mg/dL Low 0.70-1.20 [facility] Comment on above: Performed By: #### I OCAL, CDP, MG, LACTIC, ALICIA, BNP, BMP #### [address] [address] [employer] Dean: Bret Vazquez MD Performed By: #### E RTPF, CK, ECENZ, VD25 #### [address] [address] [employer] Dean: Bret Vazquez MD GFR/1.73 sq M.predicted among non-blacks MDRD (S/P/Bld) [Vol rate/Area] mL/min/{1.73_m2} Normal >60 [facility] Comment on above: Result Comment: Effective Jul [...] CDP, MG, LACTIC, ALICIA, BNP, BMP #### [facility] [address] [place] [address] [employer] Dean: Bret Vazquez MD Performed By: #### E RTPF, CK, ECENZ, VD25 #### [facility] [address] [place] [address] [employer] Dean: Bret Vazquez MD Glucose [Mass/Vol] 157 mg/dL High 70-99 [facility] Comment on above: Performed By: #### I OCAL, CDP, MG, LACTIC, ALICIA, BNP, BMP #### [facility] [address] [place] [address] [employer] Dean: Bret Vazquez MD Performed By: #### E RTPF, CK, ECENZ, VD25 #### [address] [address] [employer] Dean: Bret Vazquez MD Potassium [Moles/Vol] 4.2 mmol/L Normal 3.7-5.3 [facility] Comment on above: Performed By: #### I OCAL, CDP, MG, LACTIC, ALICIA, BNP, BMP #### [address] [address] [employer] Dean: Bret Vazquez MD Performed By: #### E RTPF, CK, ECENZ, VD25 #### [address] [address] [employer] Dean: Bret Vazquez MD Sodium [Moles/Vol] 135 mmol/L Normal 135-144 [facility] Comment on above: Performed By: #### I OCAL, CDP, MG, LACTIC, ALICIA, BNP, BMP #### [facility] [address] [place] [address] [employer] Dean: Bret Vazquez MD Performed By: #### E RTPF, CK, ECENZ, VD25 #### [facility] [address] [place] [address] [employer] Dean: Bret Vazquez MD Urea nitrogen [Mass/Vol] 11 mg/dL Normal 8-23 [facility] Comment on above: Performed By: #### I OCAL, CDP, MG, LACTIC, ALICIA, BNP, BMP #### [address] [address] [employer] Dean: Bret Vazquez MD Performed By: #### E RTPF CKVIRGIL VD25 #### [address] [address] [employer] Dean: Bret Vazquez MD Brain Natri. Peptideon 09-06 Natriuretic peptide B (Bld) [Mass/Vol] 846 pg/mL High <300 [facility] Comment on above: Result Comment: An age-independent cutoff point of 300 pg/ml has a 98% negative predictive value excluding acute heart failure. Performed By: #### B MPX, CDP #### [place] [address] [employer] Dean: Bret Vazquez MD Performed By: #### E RTARRON HIGGINS ECENZ, VD25 #### [address] [address] [employer] Dean: Bret Vazquez MD CBC with Diffon 09-06-2022 Abs. Basophil 0.00 k/uL Normal 0.0-0.2 [facility] Comment on above: Performed By: #### Jose R SAPP UAX, UMICAO #### [facility] [address] [place] [address] [employer] Dean: Bret Vazquez MD Performed By: #### Isidro LOPEZ, GHLTEG #### [facility] [address] [place] [address] [employer] Dean: Bret Vazquez MD Abs.Imm.Granulocyte 0.00 k/uL Normal 0.00-0.30 [facility] Comment on above: Performed By: #### D AU, UAX, UMICAO #### [address] [address] [employer] Dean: Bret Vazquez MD Performed By: #### Isidro RTCHRISTY HIGGINS #### [address] [address] [employer] Dean: Bret Vazquez MD Abs.Neutrophil (Seg) 8.46 k/uL High 1.8-7.7 [facility] Comment on above: Performed By: #### Jose R SAPP, UAX, UMICAO #### [address] [address] [employer] Dean: Bret Vazquez MD Performed By: #### Isidro RTCHRISTY HIGGINS #### [address] [address] [employer] Dean: Bret Vazquez MD Basophils/100 WBC (Bld) 0 % Normal 0-2 [facility] Comment on above: Performed By: #### Jose R SAPP, UAX, UMICAO #### [address] [address] [employer] Dean: Bret Vazquez MD Performed By: #### CHRISTY MOJICA #### [address] [address] [employer] Dean: Bret Vazquez MD Eosinophils (Bld) [#/Vol] 0.00 10*3/uL Normal 0.0-0.4 [facility] Comment on above: Performed By: #### Jose R SAPP, UAX, UMICAO #### [address] [address] [employer] Dean: Bret Vazquez MD Performed By: #### E RTKLARISSA HIGGINSEG #### [address] [address] [employer] Dean: Bret Vazquez MD Eosinophils/100 WBC (Bld) 0 % Low 1-4 [facility] Comment on above: Performed By: #### GINI STARKS, UMSAMSONO #### [facility] [address] [place] [address] [employer] Dean: Bret Vazquez MD Performed By: #### E RTCHRISTY HIGGINS #### [facility] [address] [place] [address] [employer] Dean: Bret Vazquez MD Immature granulocytes/100 WBC (Bld) 0 % Normal 0 [facility] Comment on above: Performed By: #### GINI STARKS, CORRINA #### [facility] [address] [place] [address] [employer] Dean: Bret Vazquez MD Performed By: #### CHRISTY MOJICA #### [facility] [address] [place] [address] [employer] Dean: Bret Vazquez MD Lymphocytes (Bld) [#/Vol] 0.55 10*3/uL Low 1.0-4.8 [facility] Comment on above: Performed By: #### GINI STARKS, UMICAO #### [facility] [address] [place] [address] [employer] Dean: Bret Vazquez MD Performed By: #### Isidro RTRANDOLPH HIGGINSLTFATOU #### [facility] [address] [place] [address] [employer] Dean: Bret Vazquez MD Lymphocytes/100 WBC (Bld) 6 % Low 24-44 [facility] Comment on above: Performed By: #### GINI STARKS, UMICAO #### [facility] [address] [place] [address] [employer] Dean: Bret Vazquez MD Performed By: #### Isidro RTRANDOLPH HIGGINSLTEG #### [address] [address] [employer] Dean: Bret Vazquez MD Monocytes (Bld) [#/Vol] 0.09 10*3/uL Low 0.1-0.8 [facility] Comment on above: Performed By: #### Jose R AU, UAX, UMICAO #### [address] [address] [employer] Dean: Bret Vazquez MD Performed By: #### E RTPFCHRISTY #### [address] [address] [employer] Dean: Bret Vazquez MD Monocytes/100 WBC (Bld) 1 % Normal 1-7 [facility] Comment on above: Performed By: #### Jose R SAPP, UAX, UMICAO #### [address] [address] [employer] Dean: Bret Vazquez MD Performed By: #### E RTBakariFCHRISTY #### [address] [address] [employer] Dean: Bret Vazquez MD Morphology Ruy (Bld) [Interp] ANISOCYTOSIS PRESENT Normal [facility] Comment on above: Result Comment: 1+ ACANTHOCYTES Performed By: #### Jose R SAPP UAX, UMICAO #### [address] [address] [employer] Dean: Bret Vazquez MD Performed By: #### E RTPF, GHLTEG #### [address] [address] [employer] Dean: Bret Vazquez MD Neutrophil (Seg) 93 % High 36-66 [facility] Comment on above: Performed By: #### Jose R AU, UAX, UMICAO #### [address] [address] [employer] Dean: Bret Vazquez MD Performed By: #### CHRISTY MOJICA #### [address] [address] [employer] Dean: Bret Vazquez MD Erythrocyte distribution width (RBC) [Ratio] 16.8 % High 11.8-14.4 [facility] Comment on above: Performed By: #### GINI STARKS, UMICAO #### [address] [address] [employer] Dean: Bret Vazquez MD Performed By: #### CHRISTY MOJICA #### [address] [address] [employer] Dean: Bret Vazquez MD Hematocrit (Bld) [Volume fraction] 26.6 % Low 40.7-50.3 [facility] Comment on above: Performed By: #### GNII STARKS, UMICAO #### [facility] [address] [place] [address] [employer] Dean: Bret Vazquez MD Performed By: #### CHRISTY MOJICA #### [facility] [address] [place] [address] [employer] Dean: Bret Vazquez MD Hemoglobin (Bld) [Mass/Vol] 8.5 g/dL Low 13.0-17.0 [facility] Comment on above: Performed By: #### GINI STARKS, UMICAO #### [facility] [address] [place] [address] [employer] Dean: Bret Vazquez MD Performed By: #### CHRISTY MOJICA #### [address] [address] [employer] Dean: Bret Vazquez MD MCH (RBC) [Entitic mass] 31.6 pg Normal 25.2-33.5 [facility] Comment on above: Performed By: #### GINI STARKS, UMICAO #### [address] [address] [employer] Dean: Bret Vazquez MD Performed By: #### Isidro RTCHIRSTY HIGGINS #### [address] [address] [employer] Dean: Bret Vazquez MD MCHC (RBC) [Mass/Vol] 32.0 g/dL Normal 28.4-34.8 [facility] Comment on above: Performed By: #### GINI STARKS, UMICAO #### [address] [address] [employer] Dean: Bret Vazquez MD Performed By: #### CHRISTY MOJICA #### [address] [address] [employer] Dean: Bret Vazquez MD MCV (RBC) [Entitic vol] 98.9 fL Normal 82.6-102.9 [facility] Comment on above: Performed By: #### GINI STARKS, UMICAO #### [address] [address] [employer] Dean: Bret Vazquez MD Performed By: #### CHRISTY MOJICA #### [address] [address] [employer] Dean: Bret Vazquez MD NRBC Automated 0.0 per 100 WBC Normal 0.0 [facility] Comment on above: Performed By: #### GINI STARKS, UMICAO #### [address] [address] [employer] Dean: Bret Vazquez MD Performed By: #### Isidro RTCHRISTY HIGGINS #### [address] [address] [employer] Dean: Bret Vazquez MD Platelet mean volume (Bld) [Entitic vol] 10.4 fL Normal 8.1-13.5 [facility] Comment on above: Performed By: #### Jose R SAPP, UAX, UMICAO #### [facility] [address] [place] [address] [employer] Dean: Bret Vazquez MD Performed By: #### Isidro RTPFKLARISSAEG #### [facility] [address] [place] [address] [employer] Dean: Bret Vazquez MD Platelets (Bld) [#/Vol] 224 10*3/uL Normal 138-453 [facility] Comment on above: Performed By: #### Jose R SAPP, UAX, UMICAO #### [facility] [address] [place] [address] [employer] Dean: Bret Vazquez MD Performed By: #### Isidro RTKLARISSA HIGGINSEG #### [facility] [address] [place] [address] [employer] Dean: Bret Vazquez MD RBC (Bld) [#/Vol] 2.69 10*6/uL Low 4.21-5.77 [facility] Comment on above: Performed By: #### Jose R SAPP UAX, UMICAO #### [facility] [address] [place] [address] [employer] Dean: Bret Vazquez MD Performed By: #### E RTKLARISSA HIGGINSEG #### [facility] [address] [place] [address] [employer] Dean: Bret Vazquez MD WBC (Bld) [#/Vol] 9.1 10*3/uL Normal 3.5-11.3 [facility] Comment on above: Performed By: #### Jose R SAPP, UAX, UMICAO #### [facility] [address] [place] [address] [employer] Dean: Bret Vazquez MD Performed By: #### CHRISTY MOJICA #### [address] [address] [employer] Dean: Bret Vazquez MD Abs. Basophil 0.03 k/uL Normal 0.00-0.20 [facility] Comment on above: Performed By: #### GINI STARKS, CORRINA #### [facility] [address] [place] [address] [employer] Dean: Bret Vazquez MD Performed By: #### CHRISTY MOJICA #### [address] [address] [employer] Dean: Bret Vazquez MD Abs. Eosinophil <0.03 Normal 0.00-0.44 [facility] Comment on above: Performed By: #### GINI STARKS, SHEMARO #### [facility] [address] [place] [address] [employer] Dean: Bret Vazquez MD Performed By: #### CHRISTY MOJICA #### [place] [address] [employer] Dean: Bret Vazquez MD Abs.Imm.Granulocyte 0.05 k/uL Normal 0.00-0.30 [facility] Comment on above: Performed By: #### GINI STARKS, UMICAO #### [facility] [address] [place] [address] [employer] Dean: Bret Vazquez MD Performed By: ###CHRISTY EVERETT #### [facility] [address] [place] [address] [employer] Dean: Bret Vazquez MD Abs.Neutrophil (Seg) 9.22 k/uL High 1.50-8.10 [facility] Comment on above: Performed By: #### D AU, UAX, UMICAO #### [facility] [address] [place] [address] [employer] Dean: Bret Vazquez MD Performed By: #### E RTKLARISSA HIGGINSEG #### [address] [address] [employer] Dean: Bret Vazquez MD Basophils/100 WBC (Bld) 0 % Normal 0-2 [facility] Comment on above: Performed By: #### Jose R AU, UAX, UMICAO #### [address] [address] [employer] Dean: Bret Vazquez MD Performed By: #### E RTKLARISSA HIGGINSEG #### [address] [address] [employer] Dean: Bret Vazquez MD Eosinophils/100 WBC (Bld) 0 % Low 1-4 [facility] Comment on above: Performed By: #### Jose R SAPP, UAX, UMICAO #### [address] [address] [employer] Dean: Bret Vazquez MD Performed By: #### E RTCHRISTY HIGGINS #### [address] [address] [employer] Dean: Bret Vazquez MD Erythrocyte distribution width (RBC) [Ratio] 16.8 % High 11.8-14.4 [facility] Comment on above: Performed By: #### Jose R SAPP, UAX, UMICAO #### [address] [address] [employer] Dean: Bret Vazquez MD Performed By: #### E RTKLARISSA HIGGINSEG #### [facility] [address] [place] [address] [employer] Dean: Bret Vazquez MD Hematocrit (Bld) [Volume fraction] 30.0 % Low 40.7-50.3 [facility] Comment on above: Performed By: #### GINI STARKS UMEPIFANIO #### [address] [address] [employer] Dean: Bret Vazquez MD Performed By: #### Isidro RTCHRISTY HIGGINS #### [address] [address] [employer] Dean: Bret Vazquez MD Hemoglobin (Bld) [Mass/Vol] 9.7 g/dL Low 13.0-17.0 [facility] Comment on above: Performed By: #### GINI STARKS UMICAO #### [address] [address] [employer] Dean: Bret Vazquez MD Performed By: #### CHRISTY MOJICA #### [address] [address] [employer] Dean: Bret Vazquez MD Immature granulocytes/100 WBC (Bld) 0 % Normal 0 [facility] Comment on above: Performed By: #### GINI STARKS UMEPIFANIO #### [address] [address] [employer] Dean: Bret Vazquez MD Performed By: #### CHRISTY MOJICA #### [address] [address] [employer] Dean: Bret Vazquez MD Lymphocytes (Bld) [#/Vol] 0.84 10*3/uL Low 1.10-3.70 [facility] Comment on above: Performed By: #### GINI STARKS, UMICAO #### [facility] [employer] [address] [place] [address] [employer] Dean: Bret Vazquez MD Performed By: #### CHRISTY MOJICA #### [address] [address] [employer] Dean: Bret Vazquez MD Lymphocytes/100 WBC (Bld) 8 % Low 24-43 [facility] Comment on above: Performed By: #### GINI STARKS, UMICAO #### [address] [address] [employer] Dean: Bret Vazquez MD Performed By: #### Isidro RTKLARISSA HIGGINSEG #### [address] [address] [employer] Dean: Bret Vazquez MD MCH (RBC) [Entitic mass] 31.6 pg Normal 25.2-33.5 [facility] Comment on above: Performed By: #### GINI STARKS, UMICAO #### [address] [address] [employer] Dean: Bret Vazquez MD Performed By: #### CHRISTY MOJICA #### [address] [address] [employer] Dean: Bret Vazquez MD MCHC (RBC) [Mass/Vol] 32.3 g/dL Normal 28.4-34.8 [facility] Comment on above: Performed By: #### GINI STARKS, UMICAO #### [address] [address] [employer] Dean: Bret Vazquez MD Performed By: #### Isidro RTCHRISTY HIGGINS #### [address] [address] [employer] Dean: Bret Vazquez MD MCV (RBC) [Entitic vol] 97.7 fL Normal 82.6-102.9 [facility] Comment on above: Performed By: #### DONATO STARKSX, UMICAO #### [address] [address] [employer] Dean: Bret Vazquez MD Performed By: #### Isidro RTCHRISTY HIGGINS #### [address] [address] [employer] Dean: Bret Vazquez MD Monocytes (Bld) [#/Vol] 0.98 10*3/uL Normal 0.10-1.20 [facility] Comment on above: Performed By: #### Jose R AU, UAX, UMICAO #### [address] [address] [employer] Dean: Bret Vazquez MD Performed By: #### E RTCHRISTY HIGGINS #### [address] [address] [employer] Dean: Bret Vazquez MD Monocytes/100 WBC (Bld) 9 % Normal 3-12 [facility] Comment on above: Performed By: #### Jose R SAPP, UAX, UMICAO #### [address] [address] [employer] Dean: Bret Vazquez MD Performed By: #### Isidro RTCHRISTY HIGGINS #### [address] [address] [employer] Dean: Bret Vazquez MD Neutrophil (Seg) 83 % High 36-65 [facility] Comment on above: Performed By: #### Jose R AU, UAX, UMICAO #### [address] [address] [employer] Dean: Bret Vazquez MD Performed By: #### E RTKLARISSA HIGGINSEG #### [address] [address] [employer] Dean: Bert Vazquez MD NRBC Automated 0.0 per 100 WBC Normal 0.0 [facility] Comment on above: Performed By: #### Jose R SAPP UAX, UMICAO #### [facility] [address] [place] [address] [employer] Dean: Bret Vazquez MD Performed By: #### Isidro RTKLARISSA HIGGINSEG #### [facility] [place] [address] [employer] Dean: Bret Vazquez MD Platelet mean volume (Bld) [Entitic vol] 10.2 fL Normal 8.1-13.5 [facility] Comment on above: Performed By: #### Jose R SAPP UAX, UMICAO #### [facility] [address] [place] [address] [employer] Dean: Bret Vazquez MD Performed By: #### E RTCHRISTY HIGGINS #### [facility] [address] [place] [address] [employer] Dean: Bret Vazquez MD Platelets (Bld) [#/Vol] 249 10*3/uL Normal 138-453 [facility] Comment on above: Performed By: #### GINI STARKS, UMICAO #### [facility] [address] [place] [address] [employer] Dean: Bret Vazquez MD Performed By: #### Isidro RTKLARISSA HIGGINSEG #### [facility] [address] [place] [address] [employer] Dean: Bret Vazquez MD RBC (Bld) [#/Vol] 3.07 10*6/uL Low 4.21-5.77 [facility] Comment on above: Performed By: #### Jose R SAPP UAX, UMICAO #### [facility] [address] [place] [address] [employer] Dean: Bret Vazquez MD Performed By: #### E RTPF GHLTEG #### [facility] [address] [place] [address] [employer] Dean: Bret Vazquez MD RBC morphology finding Nom (Bld) ANISOCYTOSIS PRESENT Normal [facility] Comment on above: Performed By: #### D GINI SAPP, UMICAO #### [address] [address] [employer] Dean: Bret Vazquez MD Performed By: #### E RTPCHRISTY Golden #### [address] [address] [employer] Dean: Bret Vazquez MD WBC (Bld) [#/Vol] 11.1 10*3/uL Normal 3.5-11.3 [facility] Comment on above: Performed By: #### GINI STARKS, UMICAO #### [address] [address] [employer] Dean: Bret Vazquez MD Performed By: #### E RTRANDOLPH HIGGINSLTEG #### [address] [address] [employer] Dean: Bret Vazquez MD Abs. Basophil 0.04 k/uL Normal 0.00-0.20 [facility] Comment on above: Performed By: #### I OCAL, CDP, MG, LACTIC, ALICIA, BNP, BMP #### [address] [address] [employer] Dean: Bret Vazquez MD Performed By: #### E RTPF, CK, ECENZ, VD25 #### [address] [address] [employer] Dean: Bret Vazquez MD Abs.Imm.Granulocyte 0.07 k/uL Normal 0.00-0.30 [facility] Comment on above: Performed By: #### I OCAL, CDP, MG, LACTIC, ALICIA, BNP, BMP #### [address] [address] [employer] Dean: Bret Vazquez MD Performed By: #### E RTPF, CK, ECENZ, VD25 #### [place] [address] [employer] Dean: Bret Vazquez MD Abs.Neutrophil (Seg) 13.83 k/uL High 1.50-8.10 [facility] Comment on above: Performed By: #### I OCAL, CDP, MG, LACTIC, ALICIA, BNP, BMP #### [place] [address] [employer] Dean: Bret Vazquez MD Performed By: #### E RTPF, CK, ECENZ, VD25 #### [place] [address] [employer] Dean: Bret Vazquez MD Basophils/100 WBC (Bld) 0 % Normal 0-2 [facility] Comment on above: Performed By: #### I OCAL, CDP, MG, LACTIC, ALICIA, BNP, BMP #### [place] [address] [employer] Dean: Bret Vazquez MD Performed By: #### E RTPF, CK, ECENZ, VD25 #### [place] [address] [employer] Dean: Bret Vazquez MD Eosinophils (Bld) [#/Vol] 0.07 10*3/uL Normal 0.00-0.44 [facility] Comment on above: Performed By: #### I OCAL, CDP, MG, LACTIC, ALICIA, BNP, BMP #### [place] [address] [employer] Dean: Bret Vazquez MD Performed By: #### E RTPF, CK, ECENZ, VD25 #### [place] [address] [employer] Dean: Bret Vazquez MD Eosinophils/100 WBC (Bld) 0 % Low 1-4 [facility] Comment on above: Performed By: #### I OCAL, CDP, MG, LACTIC, ALICIA, BNP, BMP #### [facility] [address] [place] [address] [employer] Dean: Bret Vazquez MD Performed By: #### E RTPF, CK, ECENZ, VD25 #### [facility] [address] [place] [address] [employer] Dean: Bret Vazquez MD Erythrocyte distribution width (RBC) [Ratio] 16.4 % High 11.8-14.4 [facility] Comment on above: Performed By: #### I OCAL, CDP, MG, LACTIC, ALICIA, BNP, BMP #### [facility] [address] [place] [address] [employer] Dean: Bret Vazquez MD Performed By: #### E RTPF, CK, ECENZ, VD25 #### [facility] [address] [place] [address] [employer] Dean: Bret Vazquez MD Hematocrit (Bld) [Volume fraction] 33.2 % Low 40.7-50.3 [facility] Comment on above: Performed By: #### I OCAL, CDP, MG, LACTIC, ALICIA, BNP, BMP #### [facility] [address] [place] [address] [employer] Dean: Bret Vazquez MD Performed By: #### E RTPF, CK, ECENZ, VD25 #### [facility] [address] [place] [address] [employer] Dean: Bret Vazquez MD Hemoglobin (Bld) [Mass/Vol] 11.1 g/dL Low 13.0-17.0 [facility] Comment on above: Performed By: #### I OCAL, CDP, MG, LACTIC, ALICIA, BNP, BMP #### [address] [address] [employer] Dean: Bret Vazquez MD Performed By: #### E RTPF, CK, ECENZ, VD25 #### [address] [address] [employer] Dean: Bret Vazquez MD Immature granulocytes/100 WBC (Bld) 0 % Normal 0 [facility] Comment on above: Performed By: #### I OCAL, CDP, MG, LACTIC, ALICIA, BNP, BMP #### [address] [address] [employer] Dean: Bret Vazquez MD Performed By: #### E RTPF, CK, ECENZ, VD25 #### [address] [address] [employer] Dean: Bret Vazquez MD Lymphocytes (Bld) [#/Vol] 1.05 10*3/uL Low 1.10-3.70 [facility] Comment on above: Performed By: #### I OCAL, CDP, MG, LACTIC, ALICIA, BNP, BMP #### [address] [address] [employer] Dean: Bret Vazquez MD Performed By: #### E RTPF, CK, ECENZ, VD25 #### [address] [address] [employer] Dean: Bret Vazquez MD Lymphocytes/100 WBC (Bld) 6 % Low 24-43 [facility] Comment on above: Performed By: #### I OCAL, CDP, MG, LACTIC, ALICIA, BNP, BMP #### [address] [address] [employer] Dean: Bret Vazquez MD Performed By: #### E RTPF, CK, ECENZ, VD25 #### [address] [address] [employer] Dean: Bret Vazquez MD MCH (RBC) [Entitic mass] 31.5 pg Normal 25.2-33.5 [facility] Comment on above: Performed By: #### I OCAL, CDP, MG, LACTIC, ALICIA, BNP, BMP #### [address] [address] [employer] Dean: Bret Vazquez MD Performed By: #### E RTPF, CK, ECENZ, VD25 #### [address] [address] [employer] Dean: Bret Vazquez MD MCHC (RBC) [Mass/Vol] 33.4 g/dL Normal 28.4-34.8 [facility] Comment on above: Performed By: #### I OCAL, CDP, MG, LACTIC, ALICIA, BNP, BMP #### [address] [address] [employer] Dean: Bret Vazquez MD Performed By: #### E RTPF, CK, ECENZ, VD25 #### [address] [address] [employer] Dean: Bret Vazquez MD MCV (RBC) [Entitic vol] 94.3 fL Normal 82.6-102.9 [facility] Comment on above: Performed By: #### I OCAL, CDP, MG, LACTIC, ALICIA, BNP, BMP #### [address] [address] [employer] Dean: Bret Vazquez MD Performed By: #### E RTPF, CK, ECENZ, VD25 #### [address] [address] [employer] Dean: Bret Vazquez MD Monocytes (Bld) [#/Vol] 1.34 10*3/uL High 0.10-1.20 [facility] Comment on above: Performed By: #### I OCAL, CDP, MG, LACTIC, ALICIA, BNP, BMP #### [address] [address] [employer] Dean: Bret Vazquez MD Performed By: #### E RTPF, CK, ECENZ, VD25 #### [address] [address] [employer] Dean: Bret Vazquez MD Monocytes/100 WBC (Bld) 8 % Normal 3-12 [facility] Comment on above: Performed By: #### I OCAL, CDP, MG, LACTIC, ALICIA, BNP, BMP #### [address] [address] [employer] Dean: Bret Vazquez MD Performed By: #### E RTPF, CK, ECENZ, VD25 #### [place] [address] [employer] Dean: Bret Vazquez MD Neutrophil (Seg) 84 % High 36-65 [facility] Comment on above: Performed By: #### I OCAL, CDP, MG, LACTIC, ALICIA, BNP, BMP #### [place] [address] [employer] Dean: Bret Vazquez MD Performed By: #### E RTPF, CK, ECENZ, VD25 #### [address] [address] [employer] Dean: Bret Vazquez MD NRBC Automated 0.0 per 100 WBC Normal 0.0 [facility] Comment on above: Performed By: #### I OCAL, CDP, MG, LACTIC, ALICIA, BNP, BMP #### [address] [address] [employer] Dean: Bret Vazquez MD Performed By: #### E RTPF, CK, ECENZ, VD25 #### [address] [address] [employer] Dean: Bret Vazquez MD Platelet mean volume (Bld) [Entitic vol] 10.2 fL Normal 8.1-13.5 [facility] Comment on above: Performed By: #### I OCAL, CDP, MG, LACTIC, ALICIA, BNP, BMP #### [address] [address] [employer] Dean: Bret Vazquez MD Performed By: #### E RTPF, CK, ECENZ, VD25 #### [address] [address] [employer] Dean: Bret Vazquez MD Platelets (Bld) [#/Vol] 283 10*3/uL Normal 138-453 [facility] Comment on above: Performed By: #### I OCAL, CDP, MG, LACTIC, ALICAI, BNP, BMP #### [address] [address] [employer] Dean: Bret Vazquez MD Performed By: #### E RTPF, CK, ECENZ, VD25 #### [address] [address] [employer] Dean: Bret Vazquez MD RBC (Bld) [#/Vol] 3.52 10*6/uL Low 4.21-5.77 [facility] Comment on above: Performed By: #### I OCAL, CDP, MG, LACTIC, ALICIA, BNP, BMP #### [address] [address] [employer] Dean: Bret Vazquez MD Performed By: #### E RTPF, CK, ECENZ, VD25 #### [facility] [address] [place] [address] [employer] Dean: Bret Vazquez MD RBC morphology finding Nom (Bld) ANISOCYTOSIS PRESENT Normal [facility] Comment on above: Performed By: #### I OCAL, CDP, MG, LACTIC, ALICIA, BNP, BMP #### [facility] [address] [place] [phone] [employer] Dean: Bret Vazquez MD Performed By: #### E RTPF, CK, ECENZ, VD25 #### [facility] [address] [place] [phone] [employer] Dean: Bret Vazquez MD WBC (Bld) [#/Vol] 16.4 10*3/uL High 3.5-11.3 [facility] Comment on above: Performed By: #### I OCAL, CDP, MG, LACTIC, ALICIA, BNP, BMP #### [facility] [address] [place] [phone] [employer] Dean: Bret Vazquez MD Performed By: #### E RTPF, CK, ECENZ, VD25 #### [facility] [address] [place] [phone] [employer] Dean: Bret Vazquez MD CT 3D RECONSTRUCTIONon 09-06 [...] Dallin Pineda MD 09/06/22 Final result Normal [facility] CT ANKLE LEFT WO CONTRASTon 11-14-2022 CT ANKLE LEFT WO CONTRAST EXAMINATION: CT [...] Dallin Pineda MD 09/06/22 Final result Normal [facility] Calcium, Ionicon 09-06-2022 Calcium [Moles/Vol] 1.16 mmol/L Normal 1.13-1.33 [facility] Comment on above: Performed By: #### B MPX, CDP #### [address] [address] [employer] Dean: Bret Vazquez MD Performed By: #### B MP, CDP, IOCAL, LACTIC, ALICIA, MG #### [address] [address] [employer] Dean: Bret Vazquez MD Calcium [Moles/Vol] 1.17 mmol/L Normal 1.13-1.33 [facility] Comment on above: Performed By: #### D AU, UAX, UMICAO #### [address] [address] [employer] Dean: Bret Vazquez MD Performed By: #### E RTPF, CK, ECENZ, VD25 #### [facility] [address] [place] [address] [employer] Dean: Bret Vaqzuez MD Calcium [Moles/Vol] 0.98 mmol/L Low 1.13-1.33 [facility] Comment on above: Performed By: #### I OCAL, CDP, MG, LACTIC, ALICIA, BNP, BMP #### [address] [address] [employer] Dean: Bret Vazquez MD Performed By: #### E RTPF, CK, ECENZ, VD25 #### [address] [address] [employer] Dean: Bret Vazquez MD Drug Scr, Abuse, Uron 2021 Amphetamine(s),Ur Negative Normal NEG [facility] Comment on above: Result Comment: (Positive cutoff 1000 ng/mL) Performed By: #### Jose R AU, UAX, UMICAO #### [address] [address] [employer] Dean: Bret Vazquez MD Performed By: #### E RTPF, CK, ECENZ, VD25 #### [address] [address] [employer] Dean: Bret Vazquez MD Barbiturate(s),Ur Negative Normal NEG [facility] Comment on above: Result Comment: (Positive cutoff 200 ng/mL) Performed By: #### Jose R AU, UAX, UMICAO #### [facility] [address] [place] [address] [employer] Dean: Bret Vazquez MD Performed By: #### E RTPF, CK, ECENZ, VD25 #### [facility] [address] [place] [address] [employer] Dean: Bret Vazquez MD Benzodiazepine(s) Negative Normal NEG [facility] Comment on above: Result Comment: (Positive cutoff 200 ng/mL) Performed By: #### Jose R AU, UAX, UMICAO #### [facility] [address] [place] [address] [employer] Dean: Bret Vazquez MD Performed By: #### E RTPF, CK, ECENZ, VD25 #### [facility] [address] [place] [address] [employer] Dean: Bret Vazquez MD Cannabinoid(s),Ur Negative Normal NEG [facility] Comment on above: Result Comment: (Positive cutoff 50 ng/mL) Performed By: #### D AU, UAX, UMICAO #### [facility] [address] [place] [address] [employer] Dean: Bret Vazquez MD Performed By: #### E RTPF, CK, ECENZ, VD25 #### [facility] [address] [place] [address] [employer] Dean: Bret Vazquez MD Cocaine Metabolite Negative Normal NEG [facility] Comment on above: Result Comment: (Positive cutoff 300 ng/mL) Performed By: #### D AU, UAX, UMICAO #### [facility] [address] [place] [address] [employer] Dean: Bret Vazquez MD Performed By: #### E RTPF, CK, ECENZ, VD25 #### [facility] [address] [place] [address] [employer] Dean: Bret Vazquez MD Fentanyl, Urine Positive Abnormal NEG [facility] Comment on above: Result Comment: (Positive cutoff 5 ng/ml) Performed By: #### D AU, UAX, UMICAO #### [facility] [address] [place] [address] [employer] Dean: Bret Vazquez MD Performed By: #### E RTPF, CK, ECENZ, VD25 #### [facility] [address] [place] [address] [employer] Dean: Bret Vazquez MD Interpretive Info Assay provides medic al screening only. The absence of expected drug(s) and/or Normal [facility] Comment on above: Result Comment: meta bolite(s) may indicate diluted or adulterated urine, limitations of testing or timing of collection. Testing for legal purposes should be confirmed by another method. To request confirmation of test result, please call the lab within 7 days of sample submission. Performed By: #### Jose R AU UAX, UMICAO #### [facility] [address] [place] [address] [employer] Dean: Bret Vazquez MD Performed By: #### E RTPF, CK, ECENZ, VD25 #### [facility] [address] [place] [address] [employer] Dean: Bret Vazquez MD Methadone Ql (U) Negative Normal NEG [facility] Comment on above: Result Comment: (Positive cutoff 300 ng/mL) Performed By: #### Jose R SAPP UAX, UMICAO #### [facility] [address] [place] [address] [employer] Dean: Bret Vazquez MD Performed By: #### E RTPF, CK, ECENZ, VD25 #### [facility] [address] [place] [address] [employer] Dean: Bret Vazquez MD Opiate(s), Ur Negative Normal NEG [facility] Comment on above: Result Comment: (Positive cutoff 300 ng/mL) Performed By: #### Jose R AU, UAX, UMICAO #### [facility] [address] [place] [address] [employer] Dean: Bret Vazquez MD Performed By: #### E RTPF, CK, ECENZ, VD25 #### [facility] [address] [place] [address] [employer] Dean: Bret Vazquez MD Oxycodone, Urine Negative Normal NEG [facility] Comment on above: Result Comment: (Positive cutoff 100 ng/mL) Performed By: #### D AU, UAX, UMICAO #### [address] [address] [employer] Dean: Bret Vazquez MD Performed By: #### E RTPF, CK, ECENZ, VD25 #### [address] [address] [employer] Dean: Bret Vazquez MD Phencyclidine, Ur Negative Normal NEG [facility] Comment on above: Result Comment: (Positive cutoff 25 ng/mL) Performed By: #### D AU, UAX, UMICAO #### [address] [address] [employer] Dean: Bret Vazquez MD Performed By: #### E RTPF, CK, ECENZ, VD25 #### [address] [address] [employer] Dean: Bret Vazquez MD FLUORO FOR SURGICAL PROCEDUR ESon 09-06-2022 FLUORO FOR SURGICAL PROCEDURES Radiology exam is complete. No Radiologist dictation. Please follow up with ordering provider. Final result Normal [facility] Gl Hemostasis TEG w/Lysison 09-06-2022 Fibrinogen, Func TEG 22.5 mm Normal 15.0-32.0 [facility] Comment on above: Performed By: #### B MPX, CDP #### [address] [address] [employer] Dean: Bret Vazquez MD Performed By: #### E RTPF, GHLTEG #### [address] [address] [employer] Dean: Bret Vazquez MD LY30 (Lysis) TEG 0.4 % Normal 0.0-2.6 [facility] Comment on above: Performed By: #### B MPX, CDP #### [address] [address] [employer] Dean: Bret Vazquez MD Performed By: #### E RTPF, GHLTEG #### [address] [address] [employer] Dean: Bret Vazquez MD MA Rapid TEG 64.5 mm Normal 52.0-70 [facility] Comment on above: Performed By: #### B MPX, CDP #### [facility] [address] [place] [address] [employer] Dean: Bret Vazquez MD Performed By: #### E RTPF, GHLTEG #### [address] [address] [employer] Dean: Bret Vazquez MD R(Reaction Time) TEG 8.0 min Normal 4.6-9.1 [facility] Comment on above: Performed By: #### B MPX, CDP #### [address] [address] [employer] Dean: Bret Vazquez MD Performed By: #### E RTPFRANDOLPHLTEG #### [facility] [address] [place] [address] [employer] Dean: Bret Vazquez MD Hgb/Hcton 09-06-2022 Hematocrit (Bld) [Volume fraction] 28.2 % Low 40.7-50.3 [facility] Comment on above: Performed By: #### B MPX, CDP #### [address] [address] [employer] Dean: Bret Vazquez MD Performed By: #### H H #### [facility] [address] [place] [address] [employer] Dean: Bret Vazquez MD Hemoglobin (Bld) [Mass/Vol] 9.3 g/dL Low 13.0-17.0 [facility] Comment on above: Performed By: #### B MPX, CDP #### [address] [address] [employer] Dean: Bret Vazquez MD Performed By: #### H H #### [address] [address] [employer] Dean: Bret Vazquez MD Lactic Acidon 09-06-2022 Lactic Acid,Whole Bl 1.7 mmol/L Normal 0.7-2.1 [facility] Comment on above: Performed By: #### B MPX, CDP #### [address] [address] [employer] Dean: Bret Vazquez MD Performed By: #### E RTPF, GHLTEG #### [address] [address] [employer] Dean: Bret Vazquez MD Lactic Acid,Whole Bl 0.8 mmol/L Normal 0.7-2.1 [facility] Comment on above: Performed By: #### D AU, UAX, UMICAO #### [address] [address] [employer] Dean: Bret Vazquez MD Performed By: #### E RTPF, CK, ECENZ, VD25 #### [address] [address] [employer] Dean: Bret Vazquez MD Lactic Acid,Whole Bl 1.3 mmol/L Normal 0.7-2.1 [facility] Comment on above: Performed By: #### I OCAL, CDP, MG, LACTIC, ALICIA, BNP, BMP #### [address] [address] [employer] Dean: Bret Vazquez MD Performed By: #### E RTPF, CK, ECENZ, VD25 #### [facility] [address] [place] [address] [employer] Dean: Bret Vazquez MD Magnesiumon 09-06-2022 Magnesium [Mass/Vol] 1.8 mg/dL Normal 1.6-2.6 [facility] Comment on above: Performed By: #### GINI STARKS UMICAO #### [facility] [address] [place] [address] [employer] Dean: Bret Vazquez MD Performed By: #### CHRISTY MOJICA #### [facility] [address] [place] [address] [employer] Dean: Bret Vazquez MD Magnesium [Mass/Vol] 2.3 mg/dL Normal 1.6-2.6 [facility] Comment on above: Performed By: #### GINI STARKS UMICAO #### [facility] [address] [place] [address] [employer] Dean: Bret Vazquez MD Performed By: #### CHRISTY MOJICA #### [facility] [address] [place] [address] [employer] Dean: Bret Vazquez MD Magnesium [Mass/Vol] 1.7 mg/dL Normal 1.6-2.6 [facility] Comment on above: Performed By: #### I OCAL, CDP, MG, LACTIC, ALICIA, BNP, BMP #### [facility] [employer] [address] [place] [address] [employer] Dean: Bret Vazquez MD Performed By: #### E RTPF, CK, ECENZ, VD25 #### [facility] [address] [place] [address] [employer] Dean: Bret Vazquez MD PTon 09-06-2022 INR Coag (PPP) [Relative time] 1.6 {INR} Normal [facility] Comment on above: Result Comment: Therapeutic Range: Moderate Anticoagulant Intensity: INR = 2.0-3.0 High Anticoagulant Intensity: INR = 2.5-3.5 Performed By: #### I OCAL, CDP, MG, LACTIC, ALICIA, BNP, BMP #### [address] [address] [employer] Dean: Bret Vazquez MD Performed By: #### E RTPF, CK, ECENZ, VD25 #### [facility] [address] [place] [address] [employer] Dean: Bret Vazquez MD PT Coag (PPP) [Time] 16.5 s High 9.1-12.3 [facility] Comment on above: Performed By: #### I OCAL, CDP, MG, LACTIC, ALICIA, BNP, BMP #### [address] [address] [employer] Dean: Bret Vazquez MD Performed By: #### E RTPF, CK, ECENZ, VD25 #### [address] [address] [employer] Dean: Bret Vazquez MD Phosphorus, Inorg.on 022 Phosphorus, Inorg. 4.0 mg/dL Normal 2.5-4.5 [facility] Comment on above: Performed By: #### D AU, UAX, UMICAO #### [address] [address] [employer] Dean: Bret Vazquez MD Performed By: #### E RTPF, GHLTEG #### [address] [address] [employer] Dean: Bret Vazquez MD Phosphorus, Inorg. 4.0 mg/dL Normal 2.5-4.5 [facility] Comment on above: Performed By: #### I OCAL, CDP, MG, LACTIC, ALICIA, BNP, BMP #### [facility] [address] [place] [address] [employer] Dean: Bret Vazquez MD Performed By: #### E RTPF, CK, ECENZ, VD25 #### [address] [address] [employer] Dean: Bret Vazquez MD Phosphorus, Inorg. 3.5 mg/dL Normal 2.5-4.5 [facility] Comment on above: Performed By: #### B MPX, CDP #### [address] [address] [employer] Dean: Bret Vazquez MD Performed By: #### E RTPF, CK, ECENZ, VD25 #### [address] [address] [employer] Dean: Bret Vazquez MD Type + Screenon 09-06-2022 Type + Screen Sample Expiration 09/08/2022,2359 Arm Band Number [id number] ABO/Rh(D) A POSITIVE Antibody Screen NEGATIVE Unit Number [id number] Blood Component Type Leukocyte Reduced Red Cell Unit Division 00 Status of Unit TRANSFUSED Transfusion Status OK TO TRANSFUSE Crossmatch Result COMPATIBLE Unit Number [id number] Blood Component Type Leukocyte Reduced Red Cell Unit Division 00 Status of Unit TRANSFUSED Transfusion Status OK TO TRANSFUSE Crossmatch Result COMPATIBLE Unit Number [id number] Blood Component Type Leukocyte Reduced Red Cell Unit Division 00 Status of Unit TRANSFUSED Transfusion Status OK TO TRANSFUSE Crossmatch Result COMPATIBLE Normal [facility] Comment on above: Performed By: #### B MPX, CDP #### [address] [address] [employer] Dean: Bret Vazquez MD Performed By: #### E RTPF, CK, ECENZ, VD25 #### [address] [address] [employer] Dean: Bret Vazquez MD UA w/Reflex Cultureon 2021 Bilirubin, SemiQt,Ur Negative Normal NEG [facility] Comment on above: Performed By: #### D AU, UAX, UMICAO #### [address] [address] [employer] Dean: Bret Vazquez MD Performed By: #### E RTPF, CK, ECENZ, VD25 #### [address] [address] [employer] Dean: Bret Vazquez MD Blood, Urine Negative Normal NEG [facility] Comment on above: Performed By: #### Jose R AU, UAX, UMICAO #### [address] [address] [employer] Dean: Bret Vazquez MD Performed By: #### E RTPF, CK, ECENZ, VD25 #### [address] [address] [employer] Dean: Bret Vazquez MD Clarity (U) Clear Normal CLEAR [facility] Comment on above: Performed By: #### Jose R SAPP, UAX, UMICAO #### [address] [address] [employer] Dean: Bret Vazquez MD Performed By: #### E RTPF, CK, ECENZ, VD25 #### [address] [address] [employer] Dean: Bret Vazquez MD Color (U) Yellow Normal YEL [facility] Comment on above: Performed By: #### Jose R SAPP, UAX, UMICAO #### [address] [address] [employer] Dean: Bret Vazquez MD Performed By: #### E RTPF, CK, ECENZ, VD25 #### [address] [address] [employer] Dean: Bret Vazquez MD Glucose Ql (U) Negative Normal NEG [facility] Comment on above: Performed By: #### Jose R AU, UAX, UMICAO #### [address] [address] [employer] Dean: Bret Vazquez MD Performed By: #### E RTPF, CK, ECENZ, VD25 #### [address] [address] [employer] Dean: Bret Vazquez MD Ketones Ql (U) Negative Normal NEG [facility] Comment on above: Performed By: #### Jose R SAPP, UAX, UMICAO #### [address] [address] [employer] Dean: Bret Vazquez MD Performed By: #### E RTPF, CK, ECENZ, VD25 #### [address] [address] [employer] Dean: Bret Vazquez MD Leukocyte esterase Test strip Ql (U) Negative Normal NEG [facility] Comment on above: Performed By: #### Jose R SAPP UAX, UMICAO #### [address] [address] [employer] Dean: Bret Vazquez MD Performed By: #### E RTPF, CK, ECENZ, VD25 #### [address] [address] [employer] Dean: Bret Vazquez MD Nitrite,Ur Negative Normal NEG [facility] Comment on above: Performed By: #### Jose R SAPP, UAX, UMICAO #### [address] [address] [employer] Dean: Bret Vazquez MD Performed By: #### E RTPF, CK, ECENZ, VD25 #### [address] [address] [employer] Dean: Bret Vazquez MD PH,Ur 5.0 Normal 5.0-8.0 [facility] Comment on above: Performed By: #### Jose R AU, UAX, UMICAO #### [address] [address] [employer] Dean: Bret Vazquez MD Performed By: #### E RTPF, CK, ECENZ, VD25 #### [address] [address] [employer] Dean: Bret Vazquez MD Protein Ql (U) TRACE Abnormal NEG [facility] Comment on above: Performed By: #### D AU, UAX, UMICAO #### [address] [address] [employer] Dean: Bret Vazquez MD Performed By: #### E RTPF, CK, ECENZ, VD25 #### [address] [address] [employer] Dean: Bret Vazquez MD Spec. [place],Ur 1.070 High 1.005-1.03 0 [facility] Comment on above: Performed By: #### D SENAIT, UAX, UMICAO #### [address] [address] [employer] Dean: Bret Vazquez MD Performed By: #### E RTPF, CK, ECENZ, VD25 #### [address] [address] [employer] Dean: Bret Vazquez MD Urobilinogen,Ur Normal Normal NORM [facility] Comment on above: Performed By: #### D AU, UAX, UMICAO #### [address] [address] [employer] Dean: Bret Vazquez MD Performed By: #### E RTPF, CK, ECENZ, VD25 #### [address] [address] [employer] Dean: Bret Vazquez MD Urinalysis,Microon 2 Casts 2 TO 5 HYALINE Normal 0-8 [facility] Comment on above: Result Comment: Refe rence range defined for non-centrifuged specimen. Performed By: #### D SENAIT, UAX, UMICAO #### [facility] [address] [place] [address] [employer] Dean: Bret Vazquez MD Performed By: #### E RTPF, CK, ECENZ, VD25 #### [facility] [address] [place] [address] [employer] Dean: Bret Vazquez MD Crystals LM Nom (Urine sed) FEW Abnormal NONE [facility] Comment on above: Result Comment: CALC IUM OXALATE Performed By: #### D SENAIT, UAX, UMICAO #### [facility] [address] [place] [address] [employer] Dean: Bret Vazquez MD Performed By: #### E RTPF, CK, ECENZ, VD25 #### [facility] [address] [place] [address] [employer] Dean: Bret Vazquez MD Epithelial cells LM Ql (Urine sed) 2 TO 5 Normal 0-5 [facility] Comment on above: Performed By: #### Jose R SAPP, UAX, UMICAO #### [facility] [address] [place] [address] [employer] Dean: Bret Vazquez MD Performed By: #### E RTPF, CK, ECENZ, VD25 #### [facility] [address] [place] [address] [employer] Dean: Bret Vazquez MD Urine RBC's 0 TO 2 Normal 0-4 [facility] Comment on above: Result Comment: Refe rence range defined for non-centrifuged specimen. Performed By: #### Jose R AU, UAX, UMICAO #### [facility] [address] [place] [address] [employer] Dean: Bret Vazquez MD Performed By: #### E RTPF, CK, ECENZ, VD25 #### [facility] [address] [place] [address] [phone] [employer] Dean: Bret Vazquez MD Urine WBC's 2 TO 5 Normal 0-5 [facility] Comment on above: Performed By: #### D AU, UAX, UMICAO #### [facility] [address] [place] [address] [phone] [employer] Dean: Bret Vazquez MD Performed By: #### E RTPF, CK, ECENZ, VD25 #### [facility] [address] [place] [address] [phone] [employer] Dean: Bret Vazquez MD XR ANKLE LEFT (2 [...] Mau Tomas MD 09/06/22 Final result Normal [facility] XR ANKLE LEFT (MIN 3 VIEWS)o n [...] Bo Jacques MD 09/06/22 Final result Normal [facility] XR ANKLE LEFT (MIN 3 VIEWS) EXAMINATION: [...] Mau Tomas MD 09/06/22 Final result Normal [facility] XR ANKLE LEFT (MIN 3 VIEWS) EXAMINATION: [...] Lizet Gonzalez MD 09/05/22 Final result Normal [facility] XR ELBOW LEFT (MIN 3 VIEWS)o n [...] Los Araujo MD 09/05/22 Final result Normal [facility] XR ELBOW RIGHT (MIN 3 VIEWS) on [...] Lizet Gonzalez MD 09/06/22 Final result Normal [facility] XR FOOT LEFT (MIN 3 VIEWS)on 09-06-2022 [...] Lizet Gonzalez MD 09/06/22 Final result Normal [facility] XR HAND LEFT (MIN 3 VIEWS)on 09-06-2022 [...] Aldo Felix MD 09/05/22 Final result Normal [facility] XR HAND RIGHT (MIN 3 VIEWS)o n [...] moderate osteoarthritis at right 2nd carpometacarpal joint. Gsxu-lg-zunuloyn osteoarthritis of right distal radioulnar joint. IMPRESSION: No evidence of acute fracture or dislocation in right hand and wrist. 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 Interpreted by: Lizet Gonzalez MD Signed by: Lizet Gonzalez MD 09/06/22 Final result Normal [facility] XR KNEE LEFT (3 VIEWS)on XR KNEE [...] Lizet Gonzalez MD 09/05/22 Final result Normal [facility] XR KNEE RIGHT (1-2 VIEWS)on 09-06-2022 XR [...] Emili Pugh MD 09/06/22 Final result Normal [facility] XR PELVIS (MIN 3 VIEWS)on XR PELVIS [...] Lizet Gonzalez MD 09/06/22 Final result Normal [facility] XR RADIUS ULNA LEFT (2 VIEWS )on [...] Los Araujo MD 09/05/22 Final result Normal [facility] XR RADIUS ULNA RIGHT (2 VIEW S)on [...] Lizet Gonzalez MD 09/06/22 Final result Normal [facility] XR SHOULDER LEFT (MIN 2 VIEW S)on [...] Lizet Gonzalez MD 09/06/22 Final result Normal [facility] XR SHOULDER RIGHT (MIN 2 VIE WS)on [...] Lizet Gonzalez MD 09/06/22 Final result Normal [facility] XR TIBIA FIBULA RIGHT (2 VIE WS)on [...] Emili Pugh MD 09/06/22 Final result Normal [facility] XR WRIST LEFT (MIN 3 VIEWS)o n [...] Aldo Felix MD 09/05/22 Final result Normal [facility] XR WRIST RIGHT (2 VIEWS)on 11-06-2021 XR [...] Aldo Felix MD 09/05/22 Final result Normal [facility] CT CERVICAL SPINE WO CONTRAS Ton 09-05-2022 [...] Los Araujo MD 09/05/22 Final result Normal [facility] CT CHEST ABDOMEN PELVIS W CO NTRASTon [...] Los Araujo MD 09/05/22 Final result Normal [facility] CT HEAD WO CONTRASTon 2021 CT HEAD [...] Rush Saavedra MD 09/05/22 Final result Normal [facility] CT LUMBAR SPINE TRAUMA RECON STRUCTIONon 09-05-2022 [...] Los Araujo MD 09/05/22 Final result Normal [facility] CT THORACIC SPINE TRAUMA REC ONSTRUCTIONon 09-05-2022 [...] Los Araujo MD 09/05/22 Final result Normal [facility] Creatine Kinaseon 09-05-2022 CK [Catalytic activity/Vol] 139 U/L Normal 39-308 [facility] Comment on above: Performed By: #### D AU, UAX, UMICAO #### [address] [address] [employer] Dean: Bret Vazquez MD Performed By: #### E RTPF, CK, ECENZ, VD25 #### [address] [address] [employer] Dean: Bret Vazquez MD Trauma Profileon 09-05-2022 Anion gap [Moles/Vol] 11 mmol/L Normal 9-17 [facility] Comment on above: Performed By: #### B MPX, CDP #### [address] [address] [employer] Dean: Bret Vazquez MD Performed By: #### E RTPF, GHLTEG #### [address] [address] [employer] Dean: Bret Vazquez MD Chloride [Moles/Vol] 100 mmol/L Normal 98-107 [facility] Comment on above: Performed By: #### B MPX, CDP #### [address] [address] [employer] Dean: Bret Vazquez MD Performed By: #### E RTPF, GHLTEG #### [facility] [address] [place] [address] [employer] Dean: Bret Vazquez MD CO2 [Moles/Vol] 21 mmol/L Normal 20-31 [facility] Comment on above: Performed By: #### B MPX, CDP #### [facility] [address] [place] [address] [employer] Dean: Bret Vazquez MD Performed By: #### E RTPF, GHLTEG #### [address] [address] [employer] Dean: Bret Vazquez MD Creatinine [Mass/Vol] 0.71 mg/dL Normal 0.70-1.20 [facility] Comment on above: Performed By: #### B MPX, CDP #### [address] [address] [employer] Dean: Bret Vazquez MD Performed By: #### E RTPF, GHLTEG #### [facility] [address] [place] [address] [employer] Dean: Bret Vazquez MD Ethanol [Mass/Vol] mg/dL Normal <10 [facility] Comment on above: Performed By: #### B MPX, CDP #### [address] [address] [employer] Dean: Bret Vazquez MD Performed By: #### E RTPF, GHLTEG #### [address] [address] [employer] Dean: Bret Vazquez MD Ethanol percent <0.010 Normal <0.010 [facility] Comment on above: Performed By: #### B MPX, CDP #### [address] [address] [employer] Dean: Bret Vazquez MD Performed By: #### E RTPF, GHLTEG #### [facility] [address] [place] [address] [employer] Dean: Bret Vazquez MD GFR/1.73 sq M.predicted among non-blacks MDRD (S/P/Bld) [Vol rate/Area] 60 mL/min/{1.73_m2} Low >60 [facility] Comment on above: Result Comment: Effective Jul [...] Performed By: #### B MPX, CDP #### [facility] [address] [place] [address] [employer] Dean: Bret Vazquez MD Performed By: #### E CHRISTY LOPEZ #### [facility] [address] [place] [address] [employer] Dean: Bret Vazquez MD Glucose [Mass/Vol] 278 mg/dL High 70-99 [facility] Comment on above: Performed By: #### B MPX, CDP #### [address] [address] [employer] Dean: Bret Vazquez MD Performed By: #### CHRISTY MOJICA #### [facility] [address] [place] [address] [employer] Dean: Bret Vazquez MD Potassium [Moles/Vol] 3.3 mmol/L Low 3.7-5.3 [facility] Comment on above: Performed By: #### B MPX, CDP #### [address] [address] [employer] Dean: Bret Vazquez MD Performed By: #### E RTCHRISTY HIGGINS #### [facility] [address] [place] [address] [employer] Dean: Bret Vazquez MD Sodium [Moles/Vol] 132 mmol/L Low 135-144 [facility] Comment on above: Performed By: #### B MPX, CDP #### [facility] [address] [place] [address] [employer] Dean: Bret Vazquez MD Performed By: #### E RTPF, GHLTEG #### [facility] [address] [place] [address] [employer] Dean: Bret Vazquez MD Urea nitrogen [Mass/Vol] 10 mg/dL Normal 8-23 [facility] Comment on above: Performed By: #### B MPX, CDP #### [address] [address] [employer] Dean: Bret Vazquez MD Performed By: #### E RTPF, GHLTEG #### [facility] [address] [place] [address] [employer] Dean: Bret Vazquez MD Body Temp. 37.0 Normal [facility] Comment on above: Performed By: #### B MPX, CDP #### [address] [address] [employer] Dean: Bret Vazquez MD Performed By: #### E RTPF, GHLTEG #### [address] [address] [employer] Dean: Bret Vazquez MD Carboxy Hgb 2.3 % Normal 0-5 [facility] Comment on above: Result Comment: Reference Range: Non-Smokers 0-2% Average Smoker 2-4% Heavy Smoker <10% Performed By: #### B MPX, CDP #### [address] [address] [employer] Dean: Bret Vazquez MD Performed By: #### E RTPF, GHLTEG #### [facility] [address] [place] [address] [employer] Dean: Bret Vazquez MD Ethanol [Mass/Vol] mg/dL Normal <10 [facility] Comment on above: Performed By: #### D AU, UAX, UMICAO #### [facility] [address] [place] [address] [employer] Dean: Bret Vazquez MD Performed By: #### E RTPF CK ECENZ, VD25 #### [address] [address] [employer] Dean: Bret Vazquez MD Ethanol percent <0.010 Normal <0.010 [facility] Comment on above: Performed By: #### D AU, UAX, ICAO #### [address] [address] [employer] Dean: Bret Vazquez MD Performed By: #### E RTPF CK, ECFARZAD, VD25 #### [address] [address] [employer] Dean: Bret Vazquez MD FIO2 INFORMATION NOT PROVIDED Normal [facility] Comment on above: Performed By: #### B MPX, CDP #### [address] [address] [employer] Dean: Bret Vazquez MD Performed By: #### E RTCHRISTY HIGGINS #### [address] [address] [employer] Dean: Bret Vazquez MD HCO3 (Bld) [Moles/Vol] 22.6 mmol/L Low 24-30 [facility] Comment on above: Performed By: #### B MPX, CDP #### [address] [address] [employer] Dean: Bret Vazquez MD Performed By: #### E RTKLARISSA HIGGINSEG #### [address] [address] [employer] Dean: Bret Vazquez MD Negative Base Excess 3.3 mmol/L High 0.0-2.0 [facility] Comment on above: Performed By: #### B MPX, CDP #### [facility] [address] [place] [address] [employer] Dean: Bret Vazquez MD Performed By: #### E RTPF, GHLTEG #### [facility] [address] [place] [address] [employer] Dean: Bret Vazquez MD Oxygen saturation in Blood 87.4 % High 60.0-85.0 [facility] Comment on above: Performed By: #### B MPX, CDP #### [facility] [address] [place] [address] [employer] Dean: Bret Vazquez MD Performed By: #### E RTPFRANDOLPHLTEG #### [facility] [address] [place] [address] [employer] Dean: Bret Vazquez MD pCO2 47.1 mm Hg Normal 39-55 [facility] Comment on above: Performed By: #### B MPX, CDP #### [facility] [address] [place] [address] [employer] Dean: Bret Vazquez MD Performed By: #### E RTPFRANDOLPHLTEG #### [facility] [address] [place] [address] [employer] Dean: Bret Vazquez MD pH (Bld) 7.303 [pH] Low 7.320-7.42 0 [facility] Comment on above: Performed By: #### B MPX, CDP #### [facility] [address] [place] [address] [employer] Dean: Bret Vazquez MD Performed By: #### E RTPF GHLTEG #### [facility] [address] [place] [address] [employer] Dean: Bret Vazquez MD pO2 62.0 mm Hg High 30-50 [facility] Comment on above: Performed By: #### B MPX, CDP #### [facility] [address] [place] [address] [employer] Dean: Bret Vazquez MD Performed By: #### E RTPChantel, GHLTEG #### [facility] [address] [place] [address] [employer] Dean: Bret Vazquez MD Anion gap [Moles/Vol] 11 mmol/L Normal 9-17 [facility] Comment on above: Performed By: #### D AU, UAX, UMICAO #### [facility] [address] [place] [address] [employer] Dean: Bret Vazquez MD Performed By: #### E RTPF, CK, ECENZ, VD25 #### [facility] [address] [place] [address] [employer] Dean: Bret Vazquez MD Chloride [Moles/Vol] 106 mmol/L Normal 98-107 [facility] Comment on above: Performed By: #### Jose R AU, UAX, UMICAO #### [facility] [address] [place] [address] [employer] Dean: Bret Vazquez MD Performed By: #### E RTPF, CK, ECENZ, VD25 #### [facility] [address] [place] [address] [employer] Dean: Bret Vazquez MD CO2 [Moles/Vol] 21 mmol/L Normal 20-31 [facility] Comment on above: Performed By: #### Jose R AU, UAX, UMICAO #### [facility] [address] [place] [address] [employer] Dean: Bret Vazquez MD Performed By: #### E RTPF, CK, ECENZ, VD25 #### [facility] [address] [place] [address] [employer] Dean: Bret Vazquez MD Creatinine [Mass/Vol] 0.76 mg/dL Normal 0.70-1.20 [facility] Comment on above: Performed By: #### GINI STARKS UMICAO #### [facility] [address] [place] [address] [employer] Dean: Bret Vazquez MD Performed By: #### E RTPF, CK, ECENZ, VD25 #### [facility] [address] [place] [address] [phone] [employer]: Bret Vazquez MD GFR/1.73 sq M.predicted among non-blacks MDRD (S/P/Bld) [Vol rate/Area] 60 mL/min/{1.73_m2} Low >60 [facility] Comment on above: Result Comment: Effective Jul [...] renal tubular secretion. Performed By: #### GINI STARKS UMICAO #### [facility] [address] [place] [address] [employer]: Bret Vazquez MD Performed By: #### E RTPF, CK, ECENZ, VD25 #### [facility] [address] [place] [address] [employer] Dean: Bret Vazquez MD Glucose [Mass/Vol] 113 mg/dL High 70-99 [facility] Comment on above: Performed By: #### GINI STARKS UMICAO #### [facility] [address] [place] [address] [phone] [employer] Dean: Bret Vazquez MD Performed By: #### E RTPF, CK, ECENZ, VD25 #### [address] [address] [employer] Dean: Bret Vazquez MD Potassium [Moles/Vol] 3.9 mmol/L Normal 3.7-5.3 [facility] Comment on above: Performed By: #### Jose R AU, UAX, UMICAO #### [address] [address] [employer] Dean: Bret Vazquez MD Performed By: #### E RTPF, CK, ECENZ, VD25 #### [address] [address] [employer] Dean: Bret Vazquez MD Sodium [Moles/Vol] 138 mmol/L Normal 135-144 [facility] Comment on above: Performed By: #### Jose R SAPP UAX, UMICAO #### [address] [address] [employer] Dean: Bret Vazquez MD Performed By: #### E RTPF, CK, ECENZ, VD25 #### [address] [address] [employer] Dean: Bret Vazquez MD Urea nitrogen [Mass/Vol] 11 mg/dL Normal 8-23 [facility] Comment on above: Performed By: #### DONATO STARKSX, UMICAO #### [address] [address] [employer] Dean: Bret Vazquez MD Performed By: #### E RTPF, CK, ECENZ, VD25 #### [facility] [address] [place] [address] [employer]: Bret Vazquez MD aPTT Coag (Bld) [Time] 26.0 s Normal 20.5-30.5 [facility] Comment on above: Result Comment: IV Heparin Therapy Range: 48.6-77.8 Performed By: #### Jose R AU, UAX, UMICAO #### [facility] [employer] [address] [place] [address] [employer] Dean: Bret Vazquez MD Performed By: #### E RTPF, CK, ECENZ, VD25 #### [facility] [address] [place] [address] [employer] Dean: Bret Vazquez MD INR Coag (PPP) [Relative time] 2.1 {INR} Normal [facility] Comment on above: Result Comment: Therapeutic Range: Moderate Anticoagulant Intensity: INR = 2.0-3.0 High Anticoagulant Intensity: INR = 2.5-3.5 Performed By: #### D GINI SAPP, UMICAO #### [facility] [address] [place] [address] [employer] Dean: Bret Vazquez MD Performed By: #### E RTPF, CK, ECENZ, VD25 #### [facility] [address] [place] [address] [employer] Dean: Bret Vazquez MD PT Coag (PPP) [Time] 20.8 s High 9.1-12.3 [facility] Comment on above: Performed By: #### DONATO STARKSX, UMICAO #### [facility] [address] [place] [address] [employer] Dean: Bret Vazquez MD Performed By: #### E RTPF, CK, ECENZ, VD25 #### [facility] [address] [place] [address] [employer] Dean: Bret Vazquez MD Body Temp. 37.0 Normal [facility] Comment on above: Performed By: #### Jose R SAPP UAX, UMICAO #### [facility] [address] [place] [address] [employer] Dean: Bret Vazquez MD Performed By: #### E RTPF, CK, ECENZ, VD25 #### [address] [address] [employer] Dean: Bret Vazquez MD Carboxy Hgb 0.6 % Normal 0-5 [facility] Comment on above: Result Comment: Reference Range: Non-Smokers 0-2% Average Smoker 2-4% Heavy Smoker <10% Performed By: #### D AU, UAX, UMICAO #### [address] [address] [employer] Dean: Bret Vazquez MD Performed By: #### E RTPF, CK, ECENZ, VD25 #### [address] [address] [employer] Dean: Bret Vazquez MD FIO2 INFORMATION NOT PROVIDED Normal [facility] Comment on above: Performed By: #### Jose R AU, UAX, UMICAO #### [address] [address] [employer] Dean: Bret Vazquez MD Performed By: #### E RTPF, CK, ECENZ, VD25 #### [address] [address] [employer] Dean: Bret Vazquez MD HCO3 (Bld) [Moles/Vol] 24.8 mmol/L Normal 24-30 [facility] Comment on above: Performed By: #### D AU, UAX, UMICAO #### [address] [address] [employer] Dean: Bret Vazquez MD Performed By: #### E RTPF, CK, ECENZ, VD25 #### [address] [address] [employer] Dean: Bret Vazquez MD Negative Base Excess 1.2 mmol/L Normal 0.0-2.0 [facility] Comment on above: Performed By: #### D AU, UAX, UMICAO #### [address] [place] [address] [employer] Dean: Bret Vazquez MD Performed By: #### E RTPF, CK, ECENZ, VD25 #### [facility] [address] [place] [address] [employer] Dean: Bret Vazquez MD Oxygen saturation in Blood 45.2 % Low 60.0-85.0 [facility] Comment on above: Performed By: #### Jose R SAPP, UAX, UMICAO #### [facility] [address] [place] [address] [employer] Dean: Brte Vazquez MD Performed By: #### E RTPF, CK, ECENZ, VD25 #### [facility] [address] [place] [address] [employer] Dean: Bret Vazquez MD pCO2 49.5 mm Hg Normal 39-55 [facility] Comment on above: Performed By: #### Jose R SAPP, UAX, UMICAO #### [facility] [address] [place] [address] [employer] Dean: Bret Vazquez MD Performed By: #### E RTPF, CK, ECENZ, VD25 #### [facility] [address] [place] [address] [employer] Dean: Bret Vazquez MD pH (Bld) 7.320 [pH] Normal 7.320-7.42 0 [facility] Comment on above: Performed By: #### Jose R SAPP, UAX, UMICAO #### [facility] [address] [place] [address] [employer] Dean: Bret Vazquez MD Performed By: #### E RTPF, CK, ECENZ, VD25 #### [facility] [address] [place] [address] [employer] Dean: Bret Vazquez MD pO2 27.1 mm Hg Low 30-50 [facility] Comment on above: Performed By: #### Jose R SAPP UAX, UMICAO #### [facility] [address] [place] [address] [employer] Dean: Bret Vazquez MD Performed By: #### E RTPF, CK, ECENZ, VD25 #### [facility] [address] [place] [address] [employer] Dean: Bret Vazquez MD Erythrocyte distribution width (RBC) [Ratio] 15.9 % High 11.8-14.4 [facility] Comment on above: Performed By: #### GINI STARKS, UMICAO #### [facility] [address] [place] [address] [employer] Dean: Bret Vazquez MD Performed By: #### E RTPF, CK, ECENZ, VD25 #### [facility] [address] [place] [address] [employer] Dean: Bret Vazquez MD Hematocrit (Bld) [Volume fraction] 38.2 % Low 40.7-50.3 [facility] Comment on above: Performed By: #### GINI STARKS, UMICAO #### [facility] [address] [place] [address] [employer] Dean: Bret Vazquez MD Performed By: #### E RTPF, CK, ECENZ, VD25 #### [facility] [address] [place] [address] [employer] Dean: Bret Vazquez MD Hemoglobin (Bld) [Mass/Vol] 12.3 g/dL Low 13.0-17.0 [facility] Comment on above: Performed By: #### Jose R AU, UAX, UMICAO #### [facility] [address] [place] [address] [employer] Dean: Bret Vazquez MD Performed By: #### E RTPF, CK, ECENZ, VD25 #### [address] [address] [employer] Dean: Bret Vazquez MD MCH (RBC) [Entitic mass] 32.1 pg Normal 25.2-33.5 [facility] Comment on above: Performed By: #### Jose R SAPP, UAX, UMICAO #### [address] [address] [employer] Dean: Bret Vazquez MD Performed By: #### E RTPF, CK, ECENZ, VD25 #### [address] [address] [employer] Dean: Bret Vazquez MD MCHC (RBC) [Mass/Vol] 32.2 g/dL Normal 28.4-34.8 [facility] Comment on above: Performed By: #### Jose R SAPP UAX, UMICAO #### [address] [address] [employer] Dean: Bret Vazquez MD Performed By: #### E RTPF, CK, ECENZ, VD25 #### [address] [address] [employer] Dean: Bret Vazquez MD MCV (RBC) [Entitic vol] 99.7 fL Normal 82.6-102.9 [facility] Comment on above: Performed By: #### Jose R SAPP, UAX, UMICAO #### [address] [address] [employer] Dean: Bret Vazquez MD Performed By: #### E RTPF, CK, ECENZ, VD25 #### [address] [address] [employer] Dean: Bret Vazquez MD NRBC Automated 0.0 per 100 WBC Normal 0.0 [facility] Comment on above: Performed By: #### D AU, UAX, UMICAO #### [facility] [place] [address] [employer] Dean: Bret Vazquez MD Performed By: #### E RTPF, CK, ECENZ, VD25 #### [facility] [address] [place] [address] [employer] Dean: Bret Vazquez MD Platelet mean volume (Bld) [Entitic vol] 10.0 fL Normal 8.1-13.5 [facility] Comment on above: Performed By: #### Jose R SAPP UAX, UMICAO #### [facility] [address] [place] [address] [employer] Dean: Bret Vazquez MD Performed By: #### E RTPF, CK, ECENZ, VD25 #### [address] [address] [employer] Dean: Bret Vazquez MD Platelets (Bld) [#/Vol] 307 10*3/uL Normal 138-453 [facility] Comment on above: Performed By: #### GINI STARKS, UMICAO #### [address] [address] [employer] Dean: Bret Vazquez MD Performed By: #### E RTPF, CK, ECENZ, VD25 #### [facility] [address] [place] [address] [employer] Dean: Bret Vazquez MD RBC (Bld) [#/Vol] 3.83 10*6/uL Low 4.21-5.77 [facility] Comment on above: Performed By: #### Jose R SAPP UAX, UMICAO #### [facility] [address] [place] [address] [employer] Dean: Bret Vazquez MD Performed By: #### E RTPF, CK, ECENZ, VD25 #### [facility] [address] [place] [address] [employer] Dean: Bret Vazquez MD WBC (Bld) [#/Vol] 11.5 10*3/uL High 3.5-11.3 [facility] Comment on above: Performed By: #### D AU, UAX, UMICAO #### [facility] [address] [place] [address] [employer] Dean: Bret Vazquez MD Performed By: #### E RTPF, CK, ECENZ, VD25 #### [facility] [address] [place] [address] [employer] Dean: Bret Vazquez MD [employer] BILL FOR SERVICES PERFORMED Normal [facility] Comment on above: Performed By: #### D SENAIT, UAX, UMICAO #### [facility] [address] [place] [address] [employer] Dean: Bret Vazquez MD Performed By: #### E RTPF, CK, ECENZ, VD25 #### [facility] [address] [place] [address] [employer] Dean: Bret Vazquez MD Trop/Myoglobinon 09-05-2022 Myoglobin [Mass/Vol] 377 ng/mL High 28-72 [facility] Comment on above: Performed By: #### Jose R SAPP UAX, UMICAO #### [facility] [address] [place] [address] [employer] Dean: Bret Vazquez MD Performed By: #### E RTPF, CK, ECENZ, VD25 #### [facility] [address] [place] [address] [employer] Dean: Bret Vazquez MD Troponin, High Sens 12 ng/L Normal 0-22 [facility] Comment on above: Result Comment: High Sensitivity Troponin values cannot be compared with other Troponin methodologies. Patients with high levels of Biotin oral intake (i.e >5mg/day) may have falsely decreased Troponin levels. Samples collected within 8 hours of biotin intake may require additional information for diagnosis. Performed By: #### D AU, UAX, UMICAO #### [facility] [address] [place] [address] [employer] Dean: Bret Vazquez MD Performed By: #### E RTPF, CK, ECENZ, VD25 #### [facility] [address] [place] [address] [employer] Dean: Bret Vazquez MD Vitamin D 25 OHon 09-05-2022 Vitamin D 25 OH 37.8 ng/mL Normal >29.9 [facility] Comment on above: Result Comment: Reference Range: Vitamin D status Range Deficiency <20 ng/mL Mild Deficiency 20-30 ng/mL Sufficiency 30-100 ng/mL Toxicity >100 ng/mL Performed By: #### D SENAIT, UAX, UMICAO #### [facility] [address] [place] [address] [employer] Dean: Bret Vazquez MD Performed By: #### E RTPF, CK, ECENZ, VD25 #### [facility] [address] [place] [address] [employer] Dean: Bret Vazquez MD XR TIBIA FIBULA LEFT [...] Los Araujo MD 09/05/22 Final result Normal [facility] Q - CBC (H/H,RBC,INDICES,WBC ,PLT)on 03-11-2022 Erythrocyte distribution width (RBC) [Ratio] 13.7 % Normal 11.0-15.0 [facility] Director [employer] Profit Comment on above: Order Comment: [facility] performed at: [facility], [facility], [address] [facility], [address] [place] [address], [address] [place] [address], Vp Respiratory: Juan Daniel Cool MDQuest Collection Date/Time: Results Received Date/Time: [id number] Reported Date/Time: Performed By: #### T NELY, CMP, LIPD #### [facility] [address] [place], [place] [id number] Hematocrit (Bld) [Volume fraction] 42.5 % Normal 38.5-50.0 [facility] Director [employer] Comment on above: Order Comment: [facility] performed at: [facility], [address] [facility], [address] [place] [address], [address] [place] [address], Vp Respiratory: Juan Daniel Cool MDQuest Collection Date/Time: Results Received Date/Time: [id number] Reported Date/Time: Performed By: #### T NELY, CMP, LIPD #### [facility] [address] [place], [place] [id number] Hemoglobin (Bld) [Mass/Vol] 14.3 g/dL Normal 13.2-17.1 [facility] Director [employer] Comment on above: Order Comment: [facility] performed at: [facility], [address] [facility], [address] [place] [address], [address] [place] [address], [facility]p Respiratory: Juan Daniel Cool MDQuest Collection Date/Time: Results Received Date/Time: [id number] Reported Date/Time: Performed By: #### T SH, CMP, LIPD #### [facility] [address] [place], [place] [id number] MCH (RBC) [Entitic mass] 32.9 pg Normal 27.0-33.0 [facility] Specialist Comment on above: Order Comment: [facility] performed at: [facility], [facility], [address] [facility], [address] [place] [address], [address] [place] [address], Vp Respiratory: Juan Daniel Mckeon Collection Date/Time: Results Received Date/Time: [id number] Reported Date/Time: Performed By: #### T SH, CMP, LIPD #### [facility] [address] [place], [place] [id number] MCHC (RBC) [Mass/Vol] 33.6 g/dL Normal 32.0-36.0 [facility] Specialist Comment on above: Order Comment: [facility] performed at: [facility], [facility], [address] [facility], [address] [place] [address], [address] [place] [address], Vp Respiratory: Juan Daniel Mckeon Collection Date/Time: Results Received Date/Time: [id number] Reported Date/Time: Performed By: #### T SH, CMP, LIPD #### [facility] [address] [place], [place] [id number] MCV (RBC) [Entitic vol] 97.9 fL Normal 80.0-100.0 [facility] Specialist Comment on above: Order Comment: [facility] performed at: [facility], [facility], [address] [place] [address], [address] [place] [address], [phone], Vp Respiratory: Juan Daniel Mckeon Collection Date/Time: Results Received Date/Time: [id number] Reported Date/Time: Performed By: #### T SH, CMP, LIPD #### [facility] [address] [place], [place] [id number] Platelet mean volume (Bld) [Entitic vol] 11.0 fL Normal 7.5-12.5 [facility] Specialist Comment on above: Order Comment: [facility] performed at: [facility], [facility], [address] [facility], [address] [place] [address], [phone], Vp Respiratory: Juan Daniel Mckeon Collection Date/Time: Results Received Date/Time: [id number] Reported Date/Time: Performed By: #### T SH, CMP, LIPD #### [facility] [address] [place], [place] [id number] Platelets (Bld) [#/Vol] 398 10*3/uL Normal 140-400 [facility] Director Non Profit Comment on above: Order Comment: [facility] performed at: [facility], [facility], [address] [place] [address], [address] [place] [address], [phone], Vp Respiratory: Juan Daniel Mckeon Collection Date/Time: [id number] Results Received Date/Time: [id number] Reported Date/Time: Performed By: #### T SH, CMP, LIPD #### [facility] [address] [place], [place] [id number] RBC (Bld) [#/Vol] 4.34 10*6/uL Normal 4.20-5.80 [facility] Specialist Comment on above: Order Comment: [facility] performed at: [facility], [facility], [address] [place] [address], [address] [place] [address], [phone], Vp Respiratory: Juan Daniel Mckeon Collection Date/Time: [id number] Results Received Date/Time: [id number] Reported Date/Time: Performed By: #### T SH, CMP, LIPD #### [facility] [address] [place], [place] [id number] WBC (Bld) [#/Vol] 9.7 10*3/uL Normal 3.8-10.8 Brigitte mcarthur [place] Director Non Profit Comment on above: Order Comment: [facility] performed at: [facility], [facility], [address], [address] [facility], [place], [address], Vp Respiratory: Juan Daniel Cool MDQuest Collection Date/Time: [id number] Results Received Date/Time: [id number] Reported Date/Time: Performed By: #### T SH, CMP, LIPD #### [facility] [address] [place], [place] [id number] Comprehensive Metabolic Pane carl 03-08-2022 Albumin [Mass/Vol] 3.2 g/dL Low 3.6-5.1 Brigitte mcarthur [place] Director [employer] Profit Comment on above: Performed By: #### T SH, CMP, LIPD #### [facility] [address] [facility] [place] [id number] Albumin/Globulin [Mass ratio] 1.2 {ratio} Normal 1.0-2.5 [facility] Specialist Comment on above: Performed By: #### T SH, CMP, LIPD #### [facility] [address] [facility] [id number] ALP [Catalytic activity/Vol] 100 U/L Normal 40-129 [facility] Specialist Comment on above: Performed By: #### T SH, CMP, LIPD #### [facility] [address] [facility] [place] [id number] ALT [Catalytic activity/Vol] 11 U/L Normal 9-46 [facility] Specialist Comment on above: Result Comment: 09/23 Female reference range changed. Performed By: #### T SH, CMP, LIPD #### [facility] [address] [place] [id number] Anion gap [Moles/Vol] 18 mmol/L Normal 12-20 [facility] Comment on above: Result Comment: Effe ctive 10/29/2019 reference range changed. Performed By: #### T SH, CMP, LIPD #### [facility] [address] [place], [place] [id number] AST [Catalytic activity/Vol] 14 U/L Normal 10-40 [facility] Comment on above: Performed By: #### T SH, CMP, LIPD #### [facility] [address] [place], [place] [id number] Bilirubin [Mass/Vol] 1.17 mg/dL Normal 0.30-1.20 [facility] Comment on above: Performed By: #### T SH, CMP, LIPD #### [facility] [address] [place], [place] [id number] BUN/CREA 14 Ratio Normal 6-22 [facility] Comment on above: Performed By: #### T SH, CMP, LIPD #### [facility] [address] [place], [place] [id number] Calcium [Mass/Vol] 8.3 mg/dL Low 8.6-10.2 [facility] Comment on above: Performed By: #### T SH, CMP, LIPD #### [facility] [address] [place], [place] [id number] Chloride [Moles/Vol] 103 mmol/L Normal 98-107 [facility] Comment on above: Performed By: #### T SH, CMP, LIPD #### [facility] [address] [place], [place] [id number] CO2 [Moles/Vol] 25 mmol/L Normal 20-31 [facility] Comment on above: Performed By: #### T SH, CMP, LIPD #### [facility] [address] [place], [place] [id number] Creatinine [Mass/Vol] 0.8 mg/dL Normal 0.7-1.4 [facility] Comment on above: Performed By: #### T SH, CMP, LIPD #### [facility] [address] [facility] [id number] eGFRAA 118 mL/min/1.73m2 Normal >60 [facility] Comment on above: Performed By: #### T SH, CMP, LIPD #### [facility] [address] [facility] [place] [id number] eGFRNAA 97 mL/min/1.73m2 Normal >60 [facility] Comment on above: Performed By: #### T SH, CMP, LIPD #### [facility] [address] [place], [place] [id number] Globulin (S) [Mass/Vol] 2.6 g/dL Normal 1.9-3.7 [facility] Specialist Comment on above: Performed By: #### T NELY, CMP, LIPD #### [facility] [address] [place], [place] [id number] Glucose [Mass/Vol] 110 mg/dL High 65-99 Brigitte mcarthur [place] Director Non Profit Comment on above: Result Comment: For FASTING Glucose --- ADA reference ranges: Normal 65-99 mg/dl Prediabetes 100-125 Diabetes >/= 126 Performed By: #### T NELY, CMP, LIPD #### [facility] [address] [place], [place] [id number] Potassium [Moles/Vol] 3.5 mmol/L Normal 3.5-5.5 [facility] Director Non Profit Comment on above: Performed By: #### T NELY, CMP, LIPD #### [facility] [address] [place], [place] [id number] Protein [Mass/Vol] 5.8 g/dL Low 6.1-8.1 Brigitte [facility] Director Non Profit Comment on above: Performed By: #### T NELY, CMP, LIPD #### [facility] [address] [place], [place] [id number] Sodium [Moles/Vol] 142 mmol/L Normal 135-146 [facility] Non Profit Comment on above: Performed By: #### T NELY, CMP, LIPD #### [facility] [address] [place], [place] [id number] Urea nitrogen [Mass/Vol] 11 mg/dL Normal 7-25 [facility] Specialist Comment on above: Performed By: #### T NELY, CMP, LIPD #### [facility] [address] [place], [place] [id number] Lipid Panelon 03-08-2022 Cholesterol [Mass/Vol] 177 mg/dL Normal 125-200 No rtwestern [facility] [place] Director Non Profit Comment on above: Result Comment: Low risk < 200mg/dL Borderline risk 201-239 mg/dl High risk > or equal to 240 Performed By: #### T SH, CMP, LIPD #### [facility] [address] [place], [place] [id number] Cholesterol in HDL [Mass/Vol] 87 mg/dL Normal >40 [facility] Specialist Comment on above: Result Comment: High Cardiovascular Risk HDL <40 mg/dL Low Cardiovascular Risk HDL > or equal to 60 mg/dl Performed By: #### T SH, CMP, LIPD #### [facility] [address] [place], [place] [id number] Cholesterol in LDL [Mass/Vol] 64 mg/dL Normal [facility] Specialist Comment on above: Result Comment: LDL ATP III CLASSIFICATION LDL less than 100 mg/dl Optimal LDL 100-129 mg/dl Near or above optimal LDL 130-159 Borderline high LDL 160-189 High LDL greater than 189 mg/dl Very High Performed By: #### T NELY, CMP, LIPD #### [facility] [address] [place], [place] [id number] Cholesterol in VLDL [Mass/Vol] 26 mg/dL Normal [facility] Specialist Comment on above: Performed By: #### T SH, CMP, LIPD #### [facility] [address] [place], [place] [id number] Cholesterol.total/Choles terol in HDL [Mass ratio] 2 {ratio} Normal [facility] Specialist Comment on above: Performed By: #### T NELY, CMP, LIPD #### [facility] [address] [place], [place] [id number] Triglyceride [Mass/Vol] 131 mg/dL Normal 30-150 N [facility] Comment on above: Result Comment: TRIG ATPIII CLASSIFICATIONS TRIG less than 150 mg/dl Normal TRIG 150-199 mg/dl Borderline High TRIG 200-500 mg/dl High TRIG greather than 500 mg/dl Very High Performed By: #### T SH, CMP, LIPD #### [facility] [address] [place], [place] [id number] PSA SCREEN (MEDICARE)on 02-21 TPSA 6.330 ng/mL High <4.000 [facility] Specialist Comment on above: Result Comment: PSA Test Method: ECLIA/Horacio e 601 Performed By: #### T SH, CMP, LIPD #### [facility] [address] [place], [place] [id number] TSHon 03-08-2022 TSH 1.060 uIU/mL Normal 0.400-4.50 0 [facility] Specialist Comment on above: Performed By: #### T RAMONA MCKAY, LIPD #### [facility] [address] [place], [place] [id number] Operative Reporton 2 Operative Report MR#: [id number] I [facility] Pt. Name: Indio Collado Room #: [id number] Discharge 02/16/2022 Date: Birthdate: 1955 OPERATIVE REPORT DATE OF SURGERY: 02/15/2022 SURGEON: Christopher Yang M.D. ELEMENTARY PRINCIPAL: MD Kell and ANABELL Cedeño. ANESTHESIA: General [...] arthrotomy was closed itself with #2 interrupted [id number] suture. The remainder of the incision closed [...] A Christopher Yang M.D. Date Dict: 02/17/2022/07:28 A/Christopher Yang M.D. Date Trans: 02/17/2022 01:02 P/mmo [id number] cc: Christopher Velazquez M.D. [address] [place] [address] Normal [facility] BASIC METABOLIC PANELon 04-2 Calcium [Mass/Vol] 8.1 mg/dL Low 8.6-10.3 [facility] Comment on above: Order Comment: No: D o not add to previous draw Performed By: #### 3 1595 #### [facility] [address] [place] [address], [facility] Chloride [Moles/Vol] 101 mmol/L Normal 98-107 [facility] Comment on above: Order Comment: No: D o not add to previous draw Performed By: #### 3 1595 #### [facility] [address] [place] [address], [place] CO2 [Moles/Vol] 27 mmol/L Normal 21-31 [facility] Comment on above: Order Comment: No: D o not add to previous draw Performed By: #### 3 1595 #### [facility] [address] [place] [address], [place] Creatinine [Mass/Vol] 0.68 mg/dL Low 0.70-1.30 [facility] Comment on above: Order Comment: No: D o not add to previous draw Performed By: #### 3 1595 #### [facility] [facility] [address] [place] [address], [place] GFR/1.73 sq M.predicted among blacks MDRD (S/P/Bld) [Vol rate/Area] mL/min/{1.73_m2} Normal >60 [facility] Comment on above: Order Comment: No: D o not add to previous draw Performed By: #### 3 1595 #### [facility] [address] [place] [address], [place] GFR/1.73 sq M.predicted among non-blacks MDRD (S/P/Bld) [Vol rate/Area] mL/min/{1.73_m2} Normal >60 [facility] Comment on above: Order Comment: No: D o not add to previous draw Performed By: #### 3 1595 #### [facility] [address] [place] [address], [place] Glucose [Mass/Vol] 124 mg/dL High 70-100 [facility] Comment on above: Order Comment: No: D o not add to previous draw Performed By: #### 3 1595 #### [facility] [address] [place] [address], [place] Potassium [Moles/Vol] 3.3 mmol/L Low 3.5-5.1 [facility] Comment on above: Order Comment: No: D o not add to previous draw Performed By: #### 3 1595 #### [facility] [address] [place] [address], [place] Sodium [Moles/Vol] 136 mmol/L Normal 136-145 [facility] Comment on above: Order Comment: No: D o not add to previous draw Performed By: #### 3 1595 #### [facility] [address] [place] [address], [place] Urea nitrogen [Mass/Vol] 11 mg/dL Normal 7-25 [facility] Comment on above: Order Comment: No: D o not add to previous draw Performed By: #### 3 1595 #### [facility] [address] [facility] [place] [address], [facility] CBC W/DIFFon 02-16-2022 ABS IMM GRANS 0.1 10*3/uL Normal 0.0-0.2 [facility] Comment on above: Order Comment: No: D o not add to previous draw Performed By: #### 3 1595 #### [facility] [address] [facility] [place] [address], [facility] ABS NEUTROPHILS 11.2 10*3/uL High 1.6-7.6 [facility] Comment on above: Order Comment: No: D o not add to previous draw Performed By: #### 3 1595 #### [facility] [address] [place] [address], [facility] Basophils (Bld) [#/Vol] 0.0 10*3/uL Normal 0.0-0.2 [facility] Comment on above: Order Comment: No: D o not add to previous draw Performed By: #### 3 1595 #### [facility] [address] [place] [address], [facility] Basophils/100 WBC (Bld) 0.1 % Normal 0.0-1.0 [facility] Comment on above: Order Comment: No: D o not add to previous draw Performed By: #### 3 1595 #### [facility] [address] [facility] [place] [address], [facility] Eosinophils (Bld) [#/Vol] 0.0 10*3/uL Normal 0.0-0.5 [facility] Comment on above: Order Comment: No: D o not add to previous draw Performed By: #### 3 1595 #### [facility] [address] [place] [id number], [facility] Eosinophils/100 WBC (Bld) 0.0 % Normal 0.0-6.0 [facility] Comment on above: Order Comment: No: D o not add to previous draw Performed By: #### 3 1595 #### [facility] [address] [place] [address], [facility] Erythrocyte distribution width (RBC) [Ratio] 15.9 % High 11.5-15.0 [facility] Comment on above: Order Comment: No: D o not add to previous draw Performed By: #### 3 1595 #### [facility] [address] [place] [id number], [facility] Hematocrit (Bld) [Volume fraction] 34.9 % Low 39.0-50.0 [facility] Comment on above: Order Comment: No: D o not add to previous draw Performed By: #### 3 1595 #### [facility] [address] [place] [address], [facility] Hemoglobin (Bld) [Mass/Vol] 12.0 g/dL Low 13.0-17.0 [facility] Comment on above: Order Comment: No: D o not add to previous draw Performed By: #### 3 1595 #### [facility] [address] [place] [address], [facility] IMMATURE GRANS 0.5 % Normal 0.0-1.0 [facility] Comment on above: Order Comment: No: D o not add to previous draw Performed By: #### 3 1595 #### [facility] [address] [place] [address], [facility] Lymphocytes (Bld) [#/Vol] 0.8 10*3/uL Low 1.2-4.0 [facility] Comment on above: Order Comment: No: D o not add to previous draw Performed By: #### 3 1595 #### [facility] [address] [place] [id number], [facility] Lymphocytes/100 WBC (Bld) 6.4 % Low 20.0-45.0 [facility] Comment on above: Order Comment: No: D o not add to previous draw Performed By: #### 3 1595 #### [facility] [address] [place] [address], [facility] MCH (RBC) [Entitic mass] 31.9 pg Normal 27.0-33.0 [facility] Comment on above: Order Comment: No: D o not add to previous draw Performed By: #### 3 1595 #### [facility] [address] [place] [address], [facility] MCHC (RBC) [Mass/Vol] 34.4 g/dL Normal 32.0-35.0 [facility] Comment on above: Order Comment: No: D o not add to previous draw Performed By: #### 3 1595 #### [facility] [address] [place] [id number], [facility] MCV (RBC) [Entitic vol] 92.8 fL Normal 82.0-98.0 T [facility] Comment on above: Order Comment: No: D o not add to previous draw Performed By: #### 3 1595 #### [facility] [address] [place] [address], [facility] Monocytes (Bld) [#/Vol] 0.8 10*3/uL Normal 0.1-1.0 [facility] Comment on above: Order Comment: No: D o not add to previous draw Performed By: #### 3 1595 #### [facility] [address] [place] [address], [facility] MONOS 5.9 % Normal 5.0-12.0 [facility] Comment on above: Order Comment: No: D o not add to previous draw Performed By: #### 3 1595 #### [facility] [address] [place] [address], [facility] Neutrophils/100 WBC (Bld) 87.1 % High 40.0-72.0 [facility] Comment on above: Order Comment: No: D o not add to previous draw Performed By: #### 3 1595 #### [facility] [address] [facility]. [address] Nucleated RBC/100 WBC (Bld) [Ratio] 0 % Normal 0-0 [facility] Comment on above: Order Comment: No: D o not add to previous draw Performed By: #### 3 1595 #### [facility] [address] [place] [address], [facility] PLAT CNT 250 10*3/uL Normal 150-400 [facility] Comment on above: Order Comment: No: D o not add to previous draw Performed By: #### 3 1595 #### [facility] [address] [place] [address], [facility] RBC (Bld) [#/Vol] 3.76 10*6/uL Low 4.20-5.70 [facility] Comment on above: Order Comment: No: D o not add to previous draw Performed By: #### 3 1595 #### [facility] [address] [facility] [place] [address], [facility] WBC (Bld) [#/Vol] 12.88 10*3/uL High 4.00-10.60 [facility] Comment on above: Order Comment: No: D o not add to previous draw Performed By: #### 3 1595 #### [facility] [address] PROTHROMBIN TIMEon 2 INR Coag (PPP) [Relative time] 1.20 {INR} High 0.91-1.16 [facility] Comment on above: Order Comment: No: D [...] 1995;108:231S-246S. Performed By: #### 3 1595 #### [facility] [address] PT Coag (PPP) [Time] 15.2 s High 12.3-14.8 [facility] Comment on above: Order Comment: No: D o not add to previous draw Result Comment: ALL RESULTS MUST BE INTERPRETED WITH RESPECT TO BLOOD DRAWING ARTIFACT OR DILUTION ERROR OF ANTICOAGULANT AT THE TIME OF SAMPLING. Performed By: #### 3 1595 #### [facility] [address] *ANAEROBIC CULTUREon 022 *ANAEROBIC CULTURE Clinical Report: (D) Specimen/Source: TISSUE/INTRAOP SPEC Collected: 02/15/2022 10:06 Status: Final Last Updated: 02/20/2022 09:09 (1) 3. Right Medial Lateral Synovium CULT RES (Final) No Anaerobes Isolated 5 Days Normal [facility] Comment on above: Order Comment: 3. Ri ght Medial Lateral Synovium Performed By: #### 3 0312 #### [facility] [address] [facility]. [address] *ANAEROBIC CULTURE Clinical Report: (D) Specimen/Source: FLUID/INTRAOP SPEC Collected: 02/15/2022 10:06 Status: Final Last Updated: 02/20/2022 09:09 (1) 1. Right Knee Joint Fluid CULT RES (Final) No Anaerobes Isolated 5 Days Normal [facility] Comment on above: Order Comment: 1. Ri ght Knee Joint Fluid Performed By: #### 3 0312 #### [facility] [address] *ANAEROBIC CULTURE Clinical Report: (D) Specimen/Source: TISSUE/INTRAOP SPEC Collected: 02/15/2022 10:06 Status: Final Last Updated: 02/20/2022 09:09 (1) 2. Right Knee Medial Synovium CULT RES (Final) No Anaerobes Isolated 5 Days Normal [facility] Comment on above: Order Comment: 2. Ri ght Knee Medial Synovium Performed By: #### 3 1595 #### [facility] [address] [facility] [address] [address] *BODY FLUID CULTUREon 2021 *BODY FLUID CULTURE Clinical Report: (D) Specimen/Source: FLUID/INTRAOP SPEC Collected: 02/15/2022 10:06 Status: Final Last Updated: 02/20/2022 07:33 (1) 1. Right Knee Joint Fluid GRAM (Final) Moderate Polys No Bacteria Seen CULT RES (Final) No Growth Day 5 Normal [facility] Comment on above: Order Comment: 1. Ri ght Knee Joint Fluid Performed By: #### 3 1595 #### [facility] [address] [facility] *TISSUE CULTUREon 02-15-2022 *TISSUE CULTURE Clinical Report: (D) Specimen/Source: TISSUE/INTRAOP SPEC Collected: 02/15/2022 10:06 Status: Final Last Updated: 02/20/2022 07:33 (1) 3. Right Medial Lateral Synovium GRAM (Final) Rare Polys No Bacteria Seen CULT RES (Final) No Growth Day 5 Normal [facility] Comment on above: Order Comment: 3. Ri ght Medial Lateral Synovium Performed By: #### 3 0338 #### [facility] [address] *TISSUE CULTURE Clinical Report: (D) Specimen/Source: TISSUE/INTRAOP SPEC Collected: 02/15/2022 10:06 Status: Final Last Updated: 02/20/2022 07:34 (1) 2. Right Knee Medial Synovium GRAM (Final) Moderate Polys No Bacteria Seen CULT RES (Final) No Growth Day 5 Normal [facility] Comment on above: Order Comment: 2. Ri ght Knee Medial Synovium Performed By: #### 3 0338 #### [address] [place], [place] [id number] [place] [address] APTTon 02-15-2022 aPTT Coag (Bld) [Time] 29.7 s Normal 25.0-35.0 Th [facility] Comment on above: Order Comment: No: D [...] THIS PURPOSE. Performed By: #### 5 7307, [id number] #### [address] [place] [address], [facility] POC GLUCOSE LABon 02-15-2022 Glucose [Mass/Vol] 124 mg/dL High 70-100 [facility] Comment on above: Performed By: #### 8 5499 #### [address] [place] [address], [facility] Glucose [Mass/Vol] 97 mg/dL Normal 70-100 [facility] Comment on above: Performed By: #### 3 1595 #### [address] [address], [facility] PORTABLE KNEE RIGHT 2 S [facility] Department of Radiology [address] [place] [id number] Patient Name: INDIO COLLADO : 1955 Sex: M Age: Race: White Pt. Location: OUTP Patient Status: I Ordered Date: 02/15/2022 11:10:00 AM Completed Date: 02/15/2022 12:47 PM Requesting Provider: LONNY CASTORENA Attending Provider: CHRISTOPHER YANG Report Copy To: Signs & Symptoms: Post OP History: Comments: Hardware Evaluation, in PACU Exam: PORTABLE KNEE RIGHT 2 VWS PORTABLE KNEE RIGHT 2 VWS 02/15/2022 12:47 PM CLINICAL INDICATIONS: Post OP [...] 12/08/2021 Electronically signed: Indio Presley. Transcribed by: [email or web address], User Resident: Electronically Signed by: INDIO PRESLEY @ 02/15/2022 12:57 PM Normal [facility] Comment on above: Order Comment: Hardw are Evaluation, in PACU PROTHROMBIN TIMEon INR Coag (PPP) [Relative time] 1.14 {INR} Normal 0.91-1.16 [facility] Comment on above: Order Comment: No: D [...] CHEST 1995;108:231S-246S. Performed By: #### 5 7307, 03335 #### [facility] [address] PT Coag (PPP) [Time] 14.6 s Normal 12.3-14.8 [facility] Comment on above: Order Comment: No: D o not add to previous draw Result Comment: ALL RESULTS MUST BE INTERPRETED WITH RESPECT TO BLOOD DRAWING ARTIFACT OR DILUTION ERROR OF ANTICOAGULANT AT THE TIME OF SAMPLING. Performed By: #### 5 7307, [id number] #### [facility] [address] [facility] Complete Blood Count with Au to Diffon 02-05-2022 Basophils (Bld) [#/Vol] 0.06 10*3/uL Normal 0.00-0.20 [facility] Comment on above: Performed By: #### T SH, CMP, LIPD #### [facility] [address] [place], [place] [id number] Basophils/100 WBC (Bld) 0.9 % Normal [facility] Comment on above: Performed By: #### T SH, CMP, LIPD #### [facility] [address] [place], [place] [id number] Eosinophils (Bld) [#/Vol] 0.10 10*3/uL Normal 0.02-0.50 [facility] [employer] Comment on above: Performed By: #### T SH, CMP, LIPD #### [facility] [address] [place], [place] [id number] Eosinophils/100 WBC (Bld) 1.5 % Normal [facility] [employer] Comment on above: Performed By: #### T SH, CMP, LIPD #### [facility] [address] [place], [place] [id number] Erythrocyte distribution width (RBC) [Ratio] 17.3 % High 11.0-15.0 [facility] [employer] Comment on above: Performed By: #### T SH, CMP, LIPD #### [facility] [address] [place], [place] [id number] Hematocrit (Bld) [Volume fraction] 40.5 % Normal 38.5-50.0 [facility] [employer] Comment on above: Performed By: #### T SH, CMP, LIPD #### [facility] [address] [place], [place] [id number] Hemoglobin (Bld) [Mass/Vol] 13.5 g/dL Normal 13.0-17.1 [facility] [employer] Comment on above: Performed By: #### T SH, CMP, LIPD #### [facility] [address] [place], [place] [id number] Lymphocytes (Bld) [#/Vol] 1.4 10*3/uL Normal 0.9-3.9 [facility] [employer] Comment on above: Performed By: #### T SH, CMP, LIPD #### [facility] [address] [place], [place] [id number] Lymphocytes/100 WBC (Bld) 21.1 % Normal [facility] Director [employer] Comment on above: Performed By: #### T SH, CMP, LIPD #### [facility] [address] [place], [place] [id number] MCH (RBC) [Entitic mass] 31.3 pg Normal 27.0-33.0 [facility] [employer] Comment on above: Performed By: #### T SH, CMP, LIPD #### [facility] [address] [place], [place] [id number] MCHC (RBC) [Mass/Vol] 33.3 g/dL Normal 32.0-36.0 [facility] Comment on above: Performed By: #### T SH, CMP, LIPD #### [facility] [address] [place], [place] [id number] MCV (RBC) [Entitic vol] 94 fL Normal 80-100 [facility] Comment on above: Performed By: #### T SH, CMP, LIPD #### [facility] [address] [place], [place] [id number] Monocytes (Bld) [#/Vol] 0.4 10*3/uL Normal 0.2-0.9 [facility] Comment on above: Performed By: #### T NELY, CMP, LIPD #### [facility] [address] [place], [place] [id number] Monocytes/100 WBC (Bld) 6.3 % Normal [facility] Comment on above: Performed By: #### T NELY, CMP, LIPD #### [facility] [address] [place], [place] [id number] Neutrophils (Bld) [#/Vol] 4.6 10*3/uL Normal 1.5-7.8 [facility] Comment on above: Performed By: #### T SH, CMP, LIPD #### [facility] [address] [place], [place] [id number] Neutrophils/100 WBC (Bld) 70.0 % Normal [facility] Comment on above: Performed By: #### T SH, CMP, LIPD #### [facility] [address] [place], [place] [id number] Platelet mean volume (Bld) [Entitic vol] 10.10 fL Normal 7.50-12.50 [facility] Comment on above: Performed By: #### T SH, CMP, LIPD #### [facility] [address] [place], [place] [id number] Platelets (Bld) [#/Vol] 280 10*3/uL Normal 140-400 [facility] Comment on above: Performed By: #### T SH, CMP, LIPD #### [facility] [address] [place], [place] [id number] RBC (Bld) [#/Vol] 4.32 10*6/uL Normal 4.20-5.80 [facility] Director [employer] Profit Comment on above: Performed By: #### T SH, CMP, LIPD #### [facility] [address] [place], [place] [id number] RDW-SD 60.6 fL High 37.0-50.0 [facility] Comment on above: Performed By: #### T SH, CMP, LIPD #### [facility] [address] [place], [place] [id number] WBC (Bld) [#/Vol] 6.6 10*3/uL Normal 3.8-11.0 Brigitte [facility] Director [employer] Comment on above: Performed By: #### T SH, CMP, LIPD #### [facility] [address] [place], [place] [id number] Comprehensive Metabolic Pane carl 02-05-2022 Albumin [Mass/Vol] 3.3 g/dL Low 3.6-5.1 [place] [facility] Director [employer] Comment on above: Performed By: #### T SH, CMP, LIPD #### [facility] [address] [place], [place] [id number] Albumin/Globulin [Mass ratio] 1.4 {ratio} Normal 1.0-2.5 [facility] Director [employer] Comment on above: Performed By: #### T SH, CMP, LIPD #### [facility] [address] [place], [place] [id number] ALP [Catalytic activity/Vol] 102 U/L Normal 40-129 [facility] Comment on above: Performed By: #### T SH, CMP, LIPD #### [facility] [address] [place], [place] [id number] ALT [Catalytic activity/Vol] 11 U/L Normal 9-46 [facility] Director [employer] Comment on above: Result Comment: 09/23 Female reference range changed. Performed By: #### T SH, CMP, LIPD #### [facility] [address] [place], [place] [id number] Anion gap [Moles/Vol] 16 mmol/L Normal 12-20 [facility] [place] [facility] [employer] Comment on above: Result Comment: Effisidro ctive 10/29/2019 reference range changed. Performed By: #### T SH, CMP, LIPD #### [facility] [address] [place], [place] [id number] AST [Catalytic activity/Vol] 18 U/L Normal 10-40 [facility] Comment on above: Performed By: #### T SH, CMP, LIPD #### [facility] [address] [place], [place] [id number] Bilirubin [Mass/Vol] 1.96 mg/dL High 0.30-1.20 [facility] Comment on above: Performed By: #### T SH, CMP, LIPD #### [facility] [address] [place], [place] [id number] BUN/CREA 11 Ratio Normal 6-22 [facility] Comment on above: Performed By: #### T SH, CMP, LIPD #### [facility] [address] [place], [place] [id number] Calcium [Mass/Vol] 8.7 mg/dL Normal 8.6-10.2 [facility] Comment on above: Performed By: #### T SH, CMP, LIPD #### [facility] [address] [place], [place] [id number] Chloride [Moles/Vol] 105 mmol/L Normal 98-107 [facility] Comment on above: Performed By: #### T SH, CMP, LIPD #### [facility] [address] [place], [place] [id number] CO2 [Moles/Vol] 23 mmol/L Normal 20-31 [facility] Comment on above: Performed By: #### T SH, CMP, LIPD #### [facility] [address] [place], [place] [id number] Creatinine [Mass/Vol] 0.7 mg/dL Normal 0.7-1.4 [facility] Comment on above: Performed By: #### T SH, CMP, LIPD #### [facility] [address] [place], [place] [id number] eGFRAA 139 mL/min/1.73m2 Normal >60 [facility] [place] [facility] [employer] Comment on above: Performed By: #### T SH, CMP, LIPD #### [facility] [address] [place], [place] [id number] eGFRNAA 115 mL/min/1.73m2 Normal >60 [facility] Specialist Comment on above: Performed By: #### T SH, CMP, LIPD #### [facility] [address] [place], [place] [id number] Globulin (S) [Mass/Vol] 2.3 g/dL Normal 1.9-3.7 [facility] Specialist Comment on above: Performed By: #### T SH, CMP, LIPD #### [facility] [address] [place], [place] [id number] Glucose [Mass/Vol] 94 mg/dL Normal 65-99 Brigitte [facility] [place] Director [employer] Comment on above: Result Comment: For FASTING Glucose --- ADA reference ranges: Normal 65-99 mg/dl Prediabetes 100-125 Diabetes >/= 126 Performed By: #### T SH, CMP, LIPD #### [facility] [address] [place], [place] [id number] Potassium [Moles/Vol] 3.7 mmol/L Normal 3.5-5.5 [facility] Director [employer] Profit Comment on above: Performed By: #### T SH, CMP, LIPD #### [facility] [address] [place], [place] [id number] Protein [Mass/Vol] 5.6 g/dL Low 6.1-8.1 Brigitte [facility] [place] Director [employer] Comment on above: Performed By: #### T SH, CMP, LIPD #### [facility] [address] [place], [place] [id number] Sodium [Moles/Vol] 140 mmol/L Normal 135-146 Brigitte [facility] [place] Director [employer] Comment on above: Performed By: #### T SH, CMP, LIPD #### [facility] [address] [place], [place] [id number] Urea nitrogen [Mass/Vol] 7 mg/dL Normal 7-25 [facility] Director [employer] Comment on above: Performed By: #### T SH, CMP, LIPD #### [facility] [address] [place], [place] [id number] Ferritinon 02-05-2022 FERR 128.6 ng/mL Normal 30.0-400.0 [facility] Comment on above: Performed By: #### T NELY, CMP, LIPD #### [facility] [address] [place], [place] [id number] Iron Profileon 02-05-2022 %FESAT 18 % Normal 15-60 [facility] Comment on above: Performed By: #### T NELY, CMP, LIPD #### [facility] [address] [place], [place] [id number] FE 45 ug/dL Low 50-180 [facility] Comment on above: Result Comment: Refe rence range change 09/09/2017. Prior reference range F 37-145 ug/dL, M 59-158 ug/dL. Performed By: #### T NELY, CMP, LIPD #### [facility] [address] [place], [place] [id number] TIBC 247 ug/dL Low 250-425 [facility] Comment on above: Performed By: #### T NELY, CMP, LIPD #### [facility] [address] [place], [place] [id number] UIBC 202 ug/dL Normal 112-347 [facility] Comment on above: Performed By: #### T NELY, CMP, LIPD #### [facility] [address] [place], [place] [id number] Magnesiumon 02-05-2022 Magnesium [Mass/Vol] 1.8 mg/dL Normal 1.5-2.3 [facility] Comment on above: Performed By: #### T NELY, CMP, LIPD #### [facility] [address] [place], [place] [id number] Phosphoruson 02-05-2022 Phosphate [Mass/Vol] 3.2 mg/dL Normal 2.2-4.4 [facility] Comment on above: Performed By: #### T NELY, CMP, LIPD #### [facility] [address] [place], [place] [id number] Q - VITAMIN B1 (THIAMINE),BL OODon 02-05-2022 VITAMIN B1 (THIAMINE), BLOOD, LC/MS/MS 74 nmol/L Low 78-185 [facility] Director [employer] Comment on above: Order Comment: Quest performed at: [facility], [facility], [address], [place], [place], , [place] Respiratory: Alexis Abbott M.D.,PhDQuest Collection Date/Time: [id number] Results Received Date/Time: [id number] Reported Date/Time: Result Comment: Yolande min supplementation within 24 hours prior to blood draw may affect the accuracy of the results. This test was developed and its analytical performance characteristics have been determined by [facility] [employer], [place]. It has not been cleared or approved by the U.S. Food and Drug Administration. This assay has been validated pursuant to the CLIA regulations and is used for clinical purposes. Performed By: #### T SH, CMP, LIPD #### [facility] [address] [place], [place] [id number] Q - VITAMIN D 25-OH Total IA on 02-05-2022 VIT D 25 OH 18 ng/mL Low 30-100 [facility] Director Non Profit Comment on above: Order Comment: [facility] performed at: SIA, [facility], [address] [place] [address], [address] [place] [address], [id number], Vp Respiratory: Juan Daniel Cool MDQuest Collection Date/Time: [id number] Results Received Date/Time: [id number] Reported Date/Time: Result Comment: Yolande min D Status 25-OH Vitamin D: Deficiency: <20 ng/mL Insufficiency: 20 - 29 ng/mL Optimal: > or = 30 ng/mL For 25-OH Vitamin D testing on patients on D2-supplementation and patients for whom quantitation of D2 and D3 fractions is required, the QuestAssureD(TM) 25-OH VIT D, (D2,D3), LC/MS/MS is recommended: order code 31302 (patients >2yrs). See Note 1 Note 1 For additional information, please refer to http://education.Adpoints.Accumulate/faq/BXB292 (This link is being provided for informational/ educational purposes only.) Performed By: #### T NELY, RAMONA, LIPD #### [facility] [address] [place], [place] [id number] Vitamin B12/Folateon 022 Cobalamin (Vitamin B12) [Mass/Vol] 344 pg/mL Normal 211-946 [facility] Director Non Profit Comment on above: Result Comment: Spec imen is hemolyzed. Results may be affected. Performed By: #### T NELY, CMP, LIPD #### [facility] [address] [place], [place] [id number] FOL 12.7 ng/mL Normal >4.7 [facility] Director Non Profit Comment on above: Result Comment: Refe rence range change 09/09/2017. Prior reference range F 4.8-37.3 ng/mL, M 4.5-32.2 ng/mL. Performed By: #### T NELY, RAMONA, LIPD #### [facility] [address] [place], [place] [id number] CT LOWER EXTREMITY WO CONTRA ST RIGHTon 01-02-2022 CT LOWER EXTREMITY WO CONTRAST RIGHT [facility] Department of Radiology [address] [place] [address] Patient Name: INDIO COLLADO : 1955 Sex: M Age: Race: White Pt. Location: Patient Status: D Ordered Date: 12/11/2021 12:05:00 PM Completed Date: 01/02/2022 02:10 PM Requesting Provider: CHRISTOPHER YANG Attending Provider: Report Copy To: CHRISTOPHER VELAZQUEZ Signs & Symptoms: T84.84XA Pain due to internal orthopedic prosth dev/grft, init I10 History: [place] Comments: right knee Exam: CT LOWER EXTREMITY [...] report. Electronically signed: Michael Grant. Transcribed by: [email or web address], User Resident: EVA RAMIREZ Electronically Signed by: MICHAEL GRANT @ 01/04/2022 09:38 AM I personally read this/these film(s) with this resident Normal [facility] Comment on above: Order Comment: right knee *MRSA/MSSA DNA NASALon 12-08 *MRSA/MSSA DNA NASAL Clinical Report: (D ) Specimen: NASAL SWAB Collected: 12/08/2021 14:59 Status: Final Last Updated: 12/08/2021 21:27 MSSA DNA (Final) Negative MRSA DNA (Final) Methicillin Resistant Staphylococcus aureus DNA Detected Normal [facility] Comment on above: Performed By: #### 3 1595 #### [address] C REACTIVE PROTEINon 022 CRP [Mass/Vol] 7.2 mg/L High 0.0-7.0 [facility] Comment on above: Performed By: #### 3 1595 #### [address] KNEE RIGHT 3 VWSon 2 KNEE RIGHT 3 S [facility] Department of Radiology [address] [place] [id number] Patient Name: INDIO COLLADO : 1955 Sex: M Age: Race: Other Pt. Location: Patient Status: D Ordered Date: 12/08/2021 1:45:00 PM Completed Date: 12/08/2021 01:50 PM Requesting Provider: CHRISTOPHER YANG Attending Provider: Report Copy To: Signs & Symptoms: Z96.659 Presence of unspecified artificial knee joint I10 History: [place] Comments: Evaluate Exam: KNEE RIGHT 3 VWS KNEE RIGHT 3 VWS HISTORY: Recent fall, knee pain. COMPARISON: None. IMPRESSION: 1. No fracture or dislocation. Small to moderate knee joint effusion. 2. No hardware complication. Vascular calcifications. Electronically signed: Kehinde Hahn. Transcribed by: [email or web address], User Resident: Electronically Signed by: KEHINDE HAHN @ 12/09/2021 02:13 PM Normal [facility] Comment on above: Order Comment: Evalu ate Q - MICROALBUMIN,RANDOM URIN E (W/CREAT)on 11-17-2021 Albumin DL <= 20 mg/L (U) [Mass/Vol] 5.3 mg/dL Normal See Note: [facility] Director Non Profit Comment on above: Order Comment: [facility] Testing performed at: [facility], [facility], [address] [place] [address], [address] [place] [address], [id number], Vp Respiratory: Juan Daniel Cool MD [facility] Collection Date/Time: [facility] Results Received Date/Time: [facility] Reported Date/Time: [id number] Result Comment: Refe rence Range: Reference Range Not established Performed By: #### 6 517X #### [facility] [address] [place] [address] Creatinine (U) [Mass/Vol] 173 mg/dL Normal 20-320 [facility] Director Non Profit Comment on above: Order Comment: [facility] Testing performed at: [facility], [facility], [address] [facility], [address] [place] [address], [id number], Vp Respiratory: Juan Daniel Cool MD [facility] Collection Date/Time: [facility] Results Received Date/Time: [facility] Reported Date/Time: Performed By: #### 6 517X #### [facility] Default [address] [place] [address] MICROALBUMIN/CREATININE RATIO, RANDOM URINE 31 mcg/mg creat High <30 [facility] Director Non Profit Comment on above: Order Comment: [facility] Testing performed at: Q, [facility], [address] [facility], [address] [facility], [place], [address], Vp Respiratory: Juan Daniel Cool MD [facility] Collection Date/Time: [...] 6 517X #### [facility] Default [address] [place] [address] RESPIRATORY PANEL PLUSon Adenovirus Not detected Normal NOT DETECTED [facility] Comment on above: Performed By: #### R SPLUS ####[facility] [address] [place], [place] [address]Dr. Chris Real B. Parapertusis Not detected Normal NOT DETECTED [facility] Comment on above: Performed By: #### R SPLUS ####[facility] [address] [place] [address]Dr. Chris Real B. Pertussis Not detected Normal NOT DETECTED [facility] Comment on above: Performed By: #### R SPLUS ####[facility] [address] [place] [address]Dr. Chris Real Chlamydia Pneumoniae Not detected Normal NOT DETECTED [facility] Comment on above: Performed By: #### R SPLUS ####[facility] X[address] [place], [place] [address]Dr. Chris [facility] Coronavirus 229E Not detected Normal NOT DETECTED [facility] Comment on above: Performed By: #### R SPLUS ####[facility] [address] [place], [place] [address]Dr. Chris [facility] Coronavirus HKU1 Not detected Normal NOT DETECTED [facility] Comment on above: Performed By: #### R SPLUS ####[facility] [address] [place] [address]Dr. Chris [facility] Coronavirus NL63 Not detected Normal NOT DETECTED [facility] Comment on above: Performed By: #### R SPLUS ####[facility] Lcos[address]pr[address] [place], [place] [address]Dr. Chris [facility] Coronavirus OC43 Not detected Normal NOT DETECTED [facility] Comment on above: Performed By: #### R SPLUS ####[facility] [address] [place], [place] [address]Dr. Chris Real Influenza A H1 2009 Not detected Normal NOT DETECTED [facility] Comment on above: Performed By: #### R SPLUS ####[facility] [address] [place], [place] [address]Dr. Chrsi Real Influenza A H3 Not detected Normal NOT DETECTED [facility] Comment on above: Performed By: #### R SPLUS ####[facility] [address] [place], [place] [address]Dr. Chris [facility] Influenza B Not detected Normal NOT DETECTED [facility] Comment on above: Performed By: #### R SPLUS ####[facility] [address] [place] [address]Dr. Chris Real Metapneumovirus Not detected Normal NOT DETECTED [facility] Comment on above: Performed By: #### R SPLUS ####[facility] Wa[address] [place], [place] [address]Dr. Chris Real Mycoplas. Pneumoniae Not detected Normal NOT DETECTED [facility] Comment on above: Performed By: #### R SPLUS ####[facility] Qr[address]ore[address] [place], [place] [address]Dr. Chris Real Parainfluenza 1 Not detected Normal NOT DETECTED [facility] Comment on above: Performed By: #### R SPLUS ####[facility] V[address] [place], [place] [address]Dr. Chris Real Parainfluenza 2 Not detected Normal NOT DETECTED [facility] Comment on above: Performed By: #### R SPLUS ####[facility] [address]pr[address] [place], [place] [address]Dr. Chris Real Parainfluenza 3 Not detected Normal NOT DETECTED [facility] Comment on above: Performed By: #### R SPLUS ####[facility] [address] [place], [place] [address]Dr. Chris Real Parainfluenza 4 Not detected Normal NOT DETECTED [facility] Comment on above: Performed By: #### R SPLUS ####[facility] C[address] [place], [place] [address]Dr. Chris Real Rhino/Enterovirus Not detected Normal NOT DETECTED [facility] Comment on above: Performed By: #### R SPLUS ####[facility] [address] [place], [place] [address]Dr. Chris Rael RP2 Header 1 RESPIRATORY PANEL: VIRUSES Normal [facility] Comment on above: Performed By: #### R SPLUS ####[facility] [address] [place], [place] [address]Dr. Chris Real RP2 Header 2 RESPIRATORY PANEL: BACTERIA Normal [facility] Comment on above: Performed By: #### R SPLUS ####[facility] Sql[address] [place], [place] [address]Dr. Chris Real RSV Not detected Normal NOT DETECTED [facility] Comment on above: Performed By: #### R SPLUS ####[facility] [address] [place], [place] [address]Dr. Chris Real SARS-CoV-2 (COVID-19) RNA GAIL+probe Ql (Unsp spec) Detected Critically abnormal NOT DETECTED [facility] Comment on above: Performed By: #### R SPLUS ####[facility] [address] [place], [place] [address]DrDeandre Real Complete Blood Count with Au to Diffon 10-08-2021 Basophils (Bld) [#/Vol] 0.07 10*3/uL Normal 0.00-0.20 [facility] Specialist Comment on above: Performed By: #### V ITD, MG, PHOS, FERR, CBCAD, FE Prof, CMP #### [facility] [address], [place] [id number] Basophils/100 WBC (Bld) 0.9 % Normal N [facility] Comment on above: Performed By: #### V ITD, MG, PHOS, FERR, CBCAD, FE Prof, CMP #### [facility] [address], [place] [id number] Eosinophils (Bld) [#/Vol] 0.20 10*3/uL Normal 0.02-0.50 [facility] Specialist Comment on above: Performed By: #### V ITD, MG, PHOS, FERR, CBCAD, FE Prof, CMP #### [facility] [address], [place] [id number] Eosinophils/100 WBC (Bld) 2.6 % Normal [facility] Specialist Comment on above: Performed By: #### V ITD, MG, PHOS, FERR, CBCAD, FE Prof, CMP #### [facility] [address] [place], [place] [id number] Erythrocyte distribution width (RBC) [Ratio] 15.0 % Normal 11.0-15.0 [facility] Specialist Comment on above: Performed By: #### V ITD, MG, PHOS, FERR, CBCAD, FE Prof, CMP #### [facility] [address] [place], [place] [id number] Hematocrit (Bld) [Volume fraction] 45.1 % Normal 38.5-50.0 [facility] Director Non Profit Comment on above: Performed By: #### V ITD, MG, PHOS, FERR, CBCAD, FE Prof, CMP #### [facility] [address] [place], [place] [id number] Hemoglobin (Bld) [Mass/Vol] 14.7 g/dL Normal 13.0-17.1 [facility] Director Non Profit Comment on above: Performed By: #### V ITD, MG, PHOS, FERR, CBCAD, FE Prof, CMP #### [facility] [address] [place], [place] [id number] Lymphocytes (Bld) [#/Vol] 1.8 10*3/uL Normal 0.9-3.9 [facility] Comment on above: Performed By: #### V ITD, MG, PHOS, FERR, CBCAD, FE Prof, CMP #### [facility] [address] [place], [place] [id number] Lymphocytes/100 WBC (Bld) 23.4 % Normal [facility] Comment on above: Performed By: #### V ITD, MG, PHOS, FERR, CBCAD, FE Prof, CMP #### [facility] [address], [place] [id number] MCH (RBC) [Entitic mass] 28.1 pg Normal 27.0-33.0 [facility] Comment on above: Performed By: #### V ITD, MG, PHOS, FERR, CBCAD, FE Prof, CMP #### [facility] [address], [place] [id number] MCHC (RBC) [Mass/Vol] 32.6 g/dL Normal 32.0-36.0 [facility] Comment on above: Performed By: #### V ITD, MG, PHOS, FERR, CBCAD, FE Prof, CMP #### [facility] [address], [place] [id number] MCV (RBC) [Entitic vol] 86 fL Normal 80-100 [facility] Comment on above: Performed By: #### V ITD, MG, PHOS, FERR, CBCAD, FE Prof, CMP #### [facility] [address], [place] [id number] Monocytes (Bld) [#/Vol] 0.5 10*3/uL Normal 0.2-0.9 [facility] Comment on above: Performed By: #### V ITD, MG, PHOS, FERR, CBCAD, FE Prof, CMP #### [facility] [address], [place] [id number] Monocytes/100 WBC (Bld) 6.7 % Normal N [facility] Comment on above: Performed By: #### V ITD, MG, PHOS, FERR, CBCAD, FE Prof, CMP #### [facility] [address], [place] [id number] Neutrophils (Bld) [#/Vol] 5.2 10*3/uL Normal 1.5-7.8 [facility] Comment on above: Performed By: #### V ITD, MG, PHOS, FERR, CBCAD, FE Prof, CMP #### [facility] [address], [place] [id number] Neutrophils/100 WBC (Bld) 66.3 % Normal [facility] Comment on above: Performed By: #### V ITD, MG, PHOS, FERR, CBCAD, FE Prof, CMP #### [facility] [address] [place], [place] [id number] Platelet mean volume (Bld) [Entitic vol] 10.40 fL Normal 7.50-12.50 [facility] Comment on above: Performed By: #### V ITD, MG, PHOS, FERR, CBCAD, FE Prof, CMP #### [facility] [address], [place] [id number] Platelets (Bld) [#/Vol] 302 10*3/uL Normal 140-400 [facility] Comment on above: Performed By: #### V ITD, MG, PHOS, FERR, CBCAD, FE Prof, CMP #### [facility] [address], [place] [id number] RBC (Bld) [#/Vol] 5.23 10*6/uL Normal 4.20-5.80 [facility] Comment on above: Performed By: #### V ITD, MG, PHOS, FERR, CBCAD, FE Prof, CMP #### [facility] [address], [place] [id number] RDW-SD 46.8 fL Normal 37.0-50.0 [facility] Specialist Comment on above: Performed By: #### V ITD, MG, PHOS, FERR, CBCAD, FE Prof, CMP #### [facility] [address], [place] [id number] WBC (Bld) [#/Vol] 7.8 10*3/uL Normal 3.8-11.0 Brigitte mcarthur [place] Director Non Profit Comment on above: Performed By: #### V ITD, MG, PHOS, FERR, CBCAD, FE Prof, CMP #### [facility] [address], [place] [id number] Comprehensive Metabolic Pane carl 10-08-2021 Albumin [Mass/Vol] 3.7 g/dL Normal 3.6-5.1 Brigitte mcarthur [place] Director Non Profit Comment on above: Performed By: #### V ITD, MG, PHOS, FERR, CBCAD, FE Prof, CMP #### [facility] [address], [place] [id number] Albumin/Globulin [Mass ratio] 1.2 {ratio} Normal 1.0-2.5 [facility] Specialist Comment on above: Performed By: #### V ITD, MG, PHOS, FERR, CBCAD, FE Prof, CMP #### [facility] [address], [place] [id number] ALP [Catalytic activity/Vol] 127 U/L Normal 40-129 [facility] Specialist Comment on above: Performed By: #### V ITD, MG, PHOS, FERR, CBCAD, FE Prof, CMP #### [facility] [address], [place] [id number] ALT [Catalytic activity/Vol] 21 U/L Normal 9-46 [facility] Specialist Comment on above: Result Comment: 09/23 Female reference range changed. Performed By: #### V ITD, MG, PHOS, FERR, CBCAD, FE Prof, CMP #### [facility] [address] [place], [place] [id number] Anion gap [Moles/Vol] 20 mmol/L Normal 12-20 [facility] Specialist Comment on above: Result Comment: Effe ctive 10/29/2019 reference range changed. Performed By: #### V ITD, MG, PHOS, FERR, CBCAD, FE Prof, CMP #### [facility] [address] [facility] [id number] AST [Catalytic activity/Vol] 25 U/L Normal 10-40 [facility] Director Non Profit Comment on above: Performed By: #### V ITD, MG, PHOS, FERR, CBCAD, FE Prof, CMP #### [facility] [address], [place] [id number] Bilirubin [Mass/Vol] 1.05 mg/dL Normal 0.30-1.20 [facility] Specialist Comment on above: Performed By: #### V ITD, MG, PHOS, FERR, CBCAD, FE Prof, CMP #### [facility] [address] [place], [place] [id number] BUN/CREA 11 Ratio Normal 6-22 [facility] Specialist Comment on above: Performed By: #### V ITD, MG, PHOS, FERR, CBCAD, FE Prof, CMP #### [facility] [address] [place], [place] [id number] Calcium [Mass/Vol] 9.7 mg/dL Normal 8.6-10.2 [facility] Specialist Comment on above: Performed By: #### V ITD, MG, PHOS, FERR, CBCAD, FE Prof, CMP #### [facility] [address], [place] [id number] Chloride [Moles/Vol] 99 mmol/L Normal 98-107 [facility] Specialist Comment on above: Performed By: #### V ITD, MG, PHOS, FERR, CBCAD, FE Prof, CMP #### [facility] [address] [place], [place] [id number] CO2 [Moles/Vol] 24 mmol/L Normal 20-31 [facility] Specialist Comment on above: Performed By: #### V ITD, MG, PHOS, FERR, CBCAD, FE Prof, CMP #### [facility] [address] [facility] [id number] Creatinine [Mass/Vol] 0.9 mg/dL Normal 0.7-1.4 [facility] Specialist Comment on above: Performed By: #### V ITD, MG, PHOS, FERR, CBCAD, FE Prof, CMP #### [facility] [address] [facility] [id number] eGFRAA 107 mL/min/1.73m2 Normal >60 [facility] Specialist Comment on above: Performed By: #### V ITD, MG, PHOS, FERR, CBCAD, FE Prof, CMP #### [facility] [address], [place] [id number] eGFRNAA 88 mL/min/1.73m2 Normal >60 [facility] Director Non Profit Comment on above: Performed By: #### V ITD, MG, PHOS, FERR, CBCAD, FE Prof, CMP #### [facility] [address] [place], [place] [id number] Globulin (S) [Mass/Vol] 3.0 g/dL Normal 1.9-3.7 N [facility] Director Non Profit Comment on above: Performed By: #### V ITD, MG, PHOS, FERR, CBCAD, FE Prof, CMP #### [facility] [address] [place], [place] [id number] Glucose [Mass/Vol] 136 mg/dL High 65-99 Brigitte mcarthur [place] Director Non Profit Comment on above: Result Comment: For FASTING Glucose --- ADA reference ranges: Normal 65-99 mg/dl Prediabetes 100-125 Diabetes >/= 126 Performed By: #### V ITD, MG, PHOS, FERR, CBCAD, FE Prof, CMP #### [facility] [address], [place] [id number] Potassium [Moles/Vol] 3.3 mmol/L Low 3.5-5.5 [facility] Director Non Profit Comment on above: Performed By: #### V ITD, MG, PHOS, FERR, CBCAD, FE Prof, CMP #### [facility] [address], [place] [id number] Protein [Mass/Vol] 6.7 g/dL Normal 6.1-8.1 Brigitte mcarthur [place] Director Non Profit Comment on above: Performed By: #### V ITD, MG, PHOS, FERR, CBCAD, FE Prof, CMP #### [facility] [address] [place], [place] [id number] Sodium [Moles/Vol] 140 mmol/L Normal 135-146 Brigitte mcarthur [place] Director Non Profit Comment on above: Performed By: #### V ITD, MG, PHOS, FERR, CBCAD, FE Prof, CMP #### [facility] [address] [place], [place] [id number] Urea nitrogen [Mass/Vol] 10 mg/dL Normal 7-25 [facility] Director Non Profit Comment on above: Performed By: #### V ITD, MG, PHOS, FERR, CBCAD, FE Prof, CMP #### [facility] [address] [place], [place] [id number] Ferritinon 10-08-2021 FERR 127.3 ng/mL Normal 30.0-400.0 [facility] Specialist Comment on above: Performed By: #### V ITD, MG, PHOS, FERR, CBCAD, FE Prof, CMP #### [facility] [address] [place], [place] [id number] Iron Profileon 10-08-2021 %FESAT 13 % Low 15-60 [facility] Specialist Comment on above: Performed By: #### V ITD, MG, PHOS, FERR, CBCAD, FE Prof, CMP #### [facility] [address] [place], [place] [id number] FE 41 ug/dL Low 50-180 [facility] Specialist Comment on above: Result Comment: Refe rence range change 09/09/2017. Prior reference range F 37-145 ug/dL, M 59-158 ug/dL. Performed By: #### V ITD, MG, PHOS, FERR, CBCAD, FE Prof, CMP #### [facility] [address] [place], [place] [id number] TIBC 318 ug/dL Normal 250-425 [facility] Director Non Profit Comment on above: Performed By: #### V ITD, MG, PHOS, FERR, CBCAD, FE Prof, CMP #### [facility] [address] [place], [place] [id number] UIBC 277 ug/dL Normal 112-347 [facility] Director Non Profit Comment on above: Performed By: #### V ITD, MG, PHOS, FERR, CBCAD, FE Prof, CMP #### [facility] [address] [place], [place] [id number] Magnesiumon 10-08-2021 Magnesium [Mass/Vol] 1.9 mg/dL Normal 1.5-2.3 [facility] Specialist Comment on above: Performed By: #### V ITD, MG, PHOS, FERR, CBCAD, FE Prof, CMP #### [facility] [address] [place], [place] [id number] Phosphoruson 10-08-2021 Phosphate [Mass/Vol] 2.4 mg/dL Normal 2.2-4.4 [facility] Comment on above: Performed By: #### V ITD, MG, PHOS, FERR, CBCAD, FE Prof, CMP #### [facility] [address] [place], [place] [id number] Q - VITAMIN B1 PLASMAon 09-23 VITAMIN B1 (THIAMINE), SERUM/PLASMA, LC/MS/MS <6 Low 8-30 [facility] Specialist Comment on above: Order Comment: [facility] performed at: [facility], [facility], [address], [place], [place], , Vp Respiratory: Alexis Abbott M.D.,PhDQuest Collection Date/Time: [id number] Results Received Date/Time: [id number] Reported Date/Time: Result Comment: Yolande min supplementation within 24 hours prior to blood draw may affect the accuracy of the results. This test was developed and its analytical performance characteristics have been determined by [facility] [employer], [place]. It has not been cleared or approved by the U.S. Food and Drug Administration. This assay has been validated pursuant to the CLIA regulations and is used for clinical purposes. Performed By: #### T RAMONA MCKAY, LIPD #### [facility] [address] [place], [place] [id number] Vitamin B12/Folateon 021 Cobalamin (Vitamin B12) [Mass/Vol] 523 pg/mL Normal 211-946 [facility] Specialist Comment on above: Performed By: #### T RAMONA MCKAY, LIPD #### [facility] [address] [place], [place] [id number] FOL 8.2 ng/mL Normal >4.7 [facility] Specialist Comment on above: Result Comment: Refe rence range change 09/09/2017. Prior reference range F 4.8-37.3 ng/mL, M 4.5-32.2 ng/mL. Performed By: #### T SH, CMP, LIPD #### [facility] [address] [place], [place] [id number] Vitamin D 25-OHon 10-08-2021 VIT D 25 OH 25 ng/ml Low >29 [facility] Director Non Profit Comment on above: Result Comment: Yolande min D Status Deficiency <20 ng/mL Insufficiency 20-29 ng/mL Optimal 30-100 ng/mL Possible Toxicity >=150 ng/mL Performed By: #### T SH, CMP, LIPD #### [facility] [address] [place], [place] [id number] CT ABD/PELVIS WO CONon 09-01 CT ABD/PELVIS [...] by: Ema WALSH Date: 2021-08-31 23:19 Normal [facility] AMYLASEon 08-31-2021 Amylase [Catalytic activity/Vol] 34 U/L Normal 31-110 [facility] Comment on above: Performed By: #### L IPA, MIHAELA, CMP #### [facility] [address] [place] [address] Dr. Chris Real CBC AUTO DIFFon 08-31-2021 BASO # 0.1 103/ul Normal 0.0-0.1 [facility] [facility] Comment on above: Performed By: #### C BC #### [facility] [address] [place] [address] Dr. Chris Real Basophils/100 WBC (Bld) 0.6 % Normal 0.2-2.0 [facility] Comment on above: Performed By: #### C BC #### [facility] [address] [place] [address] Dr. Chris Real EO # 0.2 103/ul Normal 0.0-0.7 [facility] Comment on above: Performed By: #### C BC #### [facility] [address] [place] [address] Dr. Chris Real Eosinophils/100 WBC (Bld) 2.3 % Normal 0.9-7.0 [facility] Comment on above: Performed By: #### C BC #### [facility] [address] [place] [address] Dr. Chris Real Erythrocyte distribution width (RBC) [Ratio] 14.6 % Normal 11.0-15.0 [facility] Comment on above: Performed By: #### C BC #### [facility] [address] [place] [address] Dr. Chris Real Hematocrit (Bld) [Volume fraction] 38.6 % Critically low 42.0-54.0 [facility] Comment on above: Performed By: #### C BC #### [facility] [address] [place] [address] Dr. Chris Real Hemoglobin (Bld) [Mass/Vol] 12.6 g/dL Critically low 14.0-18.0 [facility] Comment on above: Performed By: #### C BC #### [facility] [address] [place] [address] Dr. Chris Real IG # 0.02 10e3/ul Normal 0.00-0.03 [facility] Comment on above: Performed By: #### C BC #### [facility] [address] [place] [address] Dr. Chris Real IG % 0.2 % Normal 0.0-0.5 [facility] Comment on above: Performed By: #### C BC #### [facility] [address] [place] [address] Dr. Chris Real LYMPH # 1.9 103/ul Normal 1.2-3.8 [facility] Comment on above: Performed By: #### C BC #### [facility] [address] [place] [address] Dr. Chris Real Lymphocytes/100 WBC (Bld) 23.8 % Normal 20.5-60.0 [facility] Comment on above: Performed By: #### C BC #### [facility] [address] [place] [address] Dr. Chris Real MANUAL DIFF REQ NO Normal [facility] Comment on above: Performed By: #### C BC #### [facility] [address] [place] [address] Dr. Chris Real MCH (RBC) [Entitic mass] 29.1 pg Normal 25.9-34.0 [facility] Comment on above: Performed By: #### C BC #### [facility] [address] [place] [address] Dr. Chris Real MCHC (RBC) [Mass/Vol] 32.6 g/dL Normal 29.9-35.2 [facility] Comment on above: Performed By: #### C BC #### [facility] [address] [place] [address] Dr. Chris Real MCV (RBC) [Entitic vol] 89.1 fL Normal 80.0-94.0 [facility] Comment on above: Performed By: #### C BC #### [facility] [address] [place] [address] Dr. Chris Real MONO # 0.8 103/ul Normal 0.3-0.8 [facility] Comment on above: Performed By: #### C BC #### [facility] [address] [place] [address] Dr. Chris Real Monocytes/100 WBC (Bld) 10.3 % Normal 1.7-12.0 [facility] Comment on above: Performed By: #### C BC #### [facility] [address] [place] [address] Dr. Chris Real NEUT # 5.1 103/ul Normal 1.4-6.5 [facility] Comment on above: Performed By: #### C BC #### [facility] [address] [place] [address] Dr. Chris Real Neutrophils/100 WBC (Bld) 62.8 % Normal 43.0-75.0 [facility] Comment on above: Performed By: #### C BC #### [facility] [address] [place] [address] Dr. Chris Real Platelet mean volume (Bld) [Entitic vol] 10.4 fL Normal 9.5-13.5 [facility] Comment on above: Performed By: #### C BC #### [facility] [address] [place] [address] Dr. Chris Real PLT 325 103/ul Normal 150-450 [facility] Comment on above: Performed By: #### C BC #### [facility] [address] [place] [address] Dr. Chris Real RBC 4.33 106/ul Critically low 4.70-6.10 [facility] Comment on above: Performed By: #### C BC #### [facility] [address] [place] [address] Dr. Chris Real WBC 8.1 103/ul Normal 4.0-11.0 [facility] Comment on above: Performed By: #### C BC #### [facility] [address] [place] [address] Dr. Chris Real Covid-19 PCR (CVDTB)on SARS-CoV-2 (COVID-19) RNA GAIL+probe Ql (Unsp spec) Not detected Normal NOT DETECTED [facility] Comment on above: Result Comment: When diagnostic testing is negative, the possibility of a false negative should be considered in the context of a patient's recent exposures and the presence of clinical signs and symptoms consistent with SARS-CoV-2. This test is not yet approved or cleared by the [place] Food and Drug Administration (FDA). This test was developed by [employer], [place], [place]. The performance characteristics of this test were validated by The [facility]. The results are not intended to be used as the sole means for clinical diagnosis or patient management decisions. The [facility] is authorized under Clinical Laboratory Improvement Amendments (CLIA) to perform high- complexity testing. Performed By: #### C VDTBH #### [facility] [address] [place] [address] Dr. Chris Real LIPASEon 08-31-2021 Lipase [Catalytic activity/Vol] 109.0 U/L Normal 23.0-300.0 [facility] Comment on above: Performed By: #### L MIHAELA SO, CMP #### [facility] [address] [address] [address] Chris Real PROF 14(COMP METB)on 021 Albumin [Mass/Vol] 2.7 g/dL Critically low 3.5-5.0 [facility] Comment on above: Performed By: #### L IPA, MIHAELA, CMP #### [facility] [address] [address] [address] Chris Real Albumin/Globulin [Mass ratio] 0.6 {ratio} Normal [facility] Comment on above: Performed By: #### L IPA, MIHAELA, CMP #### [facility] [address] [address] [address] Chris Real ALP [Catalytic activity/Vol] 110 U/L Normal 38-126 [facility] Comment on above: Performed By: #### L IPA, MIHAELA, CMP #### [facility] [address] [address] [address] Chris Real ALT [Catalytic activity/Vol] 19 U/L Critically low 21-72 [facility] Comment on above: Performed By: #### L IPA, MIHAELA, CMP #### [facility] [address] [address] [address] Chris Real Anion gap [Moles/Vol] 12.8 mmol/L Normal [facility] Comment on above: Performed By: #### L IPA, MIHAELA, CMP #### [facility] [address] [address] [address] Chris Real AST [Catalytic activity/Vol] 23 U/L Normal 17-59 [facility] Comment on above: Performed By: #### L IPA, MIHAELA, CMP #### [facility] [address] [address] [address] Chris Real Bilirubin [Mass/Vol] 1.0 mg/dL Normal 0.2-1.3 [facility] Comment on above: Performed By: #### L IPA, MIHAELA, CMP #### [facility] [address] [address] [address] Chris Real Calcium [Mass/Vol] 8.6 mg/dL Normal 8.4-10.2 [facility] Comment on above: Performed By: #### L MIHAELA SO, CMP #### [facility] [address] [place] [address] Dr. Chris Real Chloride [Moles/Vol] 98 mmol/L Normal 98-107 [facility] Comment on above: Performed By: #### L MIHAELA SO, CMP #### [facility] [address] [place] [address] Dr. Chris Real CO2 [Moles/Vol] 29.1 mmol/L Normal 22.0-30.0 [facility] Comment on above: Performed By: #### L MIHAELA SO, CMP #### [facility] [address] [place] [address] Dr. Chris Real Creatinine [Mass/Vol] 1.16 mg/dL Normal 0.66-1.25 [facility] Comment on above: Performed By: #### L MIHAELA SO, CMP #### [facility] [address] [place] [address] Dr. Chris Real EGFR-AF MONTENEGRIN >60 Normal >=60 [facility] Comment on above: Performed By: #### L MIHAELA SO, CMP #### [facility] [address] [place] [address] Dr. Chris Real EGFR-NON AF MONTENEGRIN >60 Normal >=60 [facility] Comment on above: Performed By: #### L MIHAELA SO, CMP #### [facility] [address] [place] [address] Dr. Chris Real Globulin (S) [Mass/Vol] 4.4 g/dL Normal [facility] Comment on above: Performed By: #### L MIHAELA SO, CMP #### [facility] [address] [place] [address] Dr. Chris Real Glucose [Mass/Vol] 106 mg/dL Normal 74-106 [facility] Comment on above: Performed By: #### L MIHAELA SO, CMP #### [facility] [address] [place] [address] Dr. Chris Real Potassium [Moles/Vol] 2.9 mmol/L Critically low 3.4-5.0 [facility] Comment on above: Result Comment: TEST REPEATED; CRITICAL VALUE VERIFIED Performed By: #### L MIHAELA SO, CMP #### [facility] [address] [address] [address] Chris Real Protein [Mass/Vol] 7.1 g/dL Normal 6.1-8.2 [facility] Comment on above: Performed By: #### L MIHAELA SO, CMP #### [facility] [address] [address] [address] Chris Real Sodium [Moles/Vol] 137 mmol/L Normal 137-145 [facility] Comment on above: Performed By: #### L MIHAELA SO, CMP #### [facility] [address] [address] [address] Chris Real Urea nitrogen [Mass/Vol] 12.0 mg/dL Normal 9.0-20.0 [facility] Comment on above: Performed By: #### L MIHAELA SO, CMP #### [facility] [address] [address] [address] Chris Real Urea nitrogen/Creatinine [Mass ratio] 10.3 mg/mg Normal [facility] Comment on above: Performed By: #### L MIHAELA SO, CMP #### [facility] [address] [place] [address] Dr. Chris Real US RUSSEL DOP LEG LTon 08-31-20 21 US RUSSEL DOP LEG LT EXAM: US [...] KOFFI DAO Date: 2021-08-31 21:29 Normal [facility] XR CHEST 1 Von 08-31-2021 XR CHEST 1 V EXAM: XR CHEST 1 V HISTORY: SHORTNESS OF BREATH COMPARISON: Chest x-ray dated 03/22/2015. FINDINGS: Bilateral interstitial marking prominence. Cardiomegaly. No definite pneumothorax. IMPRESSION: Bilateral interstitial marking prominence and cardiomegaly concerning for pulmonary edema. Electronically authenticated by: LALO HICKMAN Date: 2021-08-31 21:52 Normal [facility] Ambulatory Clinical Summaryo n 02-24-2021 Ambulatory Clinical Summary {[id number] D:[id number] Normal [facility] Patient Educationon 02-25-20 21 Patient Education Benign Prostatic Hyperplasia You have [...] Document Reviewed: 06/14/2008 ExitCare? Patient Information ?2013 [employer] [facility]. [facility] Urology Office/Clinic Noteon 02-24-2021 Urology Office/Clinic Note Chief Complaint 2 month f/u Patient is a 65-year-old male with a history of a left distal ureteral calculus. He status post cystoscopy and retrograde pyelograms, ureteroscopy and urethral dilation. Apparently the urethral dilation has significantly improved his voiding pattern. He had no complaints since his procedure and is here today for follow-up visit. [facility] Staff [place] is a 65 y.o. male [...] Urnls Dip Stick Auto w/o Microscopy POC 73708 I have reviewed the previous health record information and history for this pt. from Dr. Caballero. Follow-up With When Contact Information Federico Tavarez MD, Rene Wallace, [facility] [address] [place] [id number]- Additional Instructions: prn Patient Education Benign Prostatic [...] replacement, [place] (more content not included)... Normal [facility] Comment on above: Result Comment: Elec tronically Signed By: Federico Tavarez MD, Rene Wallace\.br\Date and Time Signed: 02/24/21 13:11 EDT\.br\Electronically Co-Signed By: Radha Lan MA\.br\Date and Time Co-Signed: 02/24/21 11:29 EDT Provider Letteron 02-03-2021 Provider Letter (Inserted Image. Aleshia ble to display) February 03, 2021 INDIO COLLADO [address] [place] [id number] INDIO COLLADO 1955 Dear Indio , You [...] [facility] [address], [place] [address] [facility] Physician Referralon 021 Physician Referral [id number]#1.00CD:127 [facility] ECG 12-Leadon 12-02-2020 ECG 12-Lead [id number]#1.00CD:12 7 [facility] Lab Reportson 12-02-2020 Lab Reports [id number]#1.00CD:12 7 [facility] Lab Reports [id number]#1.00CD:12 7 [facility] Lab Reports [id number]#1.00CD:12 7 [facility] Lab Reports [id number]#1.00CD:12 7 [facility] RAD - MISCon 12-02-2020 RAD - MISC [id number]#1.00CD:12 7 [facility] Operative Reporton Operative Report [id number]#1.00CD:12 7 [facility] Ambulatory Clinical Summaryo n 11-13-2020 Ambulatory Clinical Summary {[id number] D:[id number] [facility] Patient Educationon 11-13-19 Patient Education Family Medicine [...] Document Reviewed: 08/07/2010 ExitCare? Patient Information ?2013 [employer]. [facility] Physician Orderon 11-13-2020 Physician Order [id number]#1.00CD:12 7 Normal [facility] Pre-Authorization for Medica l Treatmenton 11-13-2020 Pre-Authorization for Medical Treatment [id number]#1.00CD:1 27 Normal [facility] Urology Office/Clinic Noteon 11-13-2020 Urology Office/Clinic Note [...] month fu w/ CT. CT done at [facility] on 10/17/2020 Pt states that he is [...] Present Illness Reviewed urine and CT from [facility]. There have been no associated fever, chills, [...] Urnls Dip Stick Auto w/o Microscopy POC 97529 Urology Procedure Order 3. Nocturia (R35.1: Nocturia) 2x/night. Ordered: Urology Procedure Order 4. Urge incontinence (N39.41: Urge incontinence) Moderate - severe. Ordered: Urology Procedure Order 5. Abdominal pain (R10.9: Unspecified abdominal pain) LLQ. Ordered: Urology Procedure Order I have reviewed the previous health record information and history for this pt. from Dr. Caballero. Follow-up With When Contact Information eFderico Tavarez MD, Rene Wallace [address] [place] [phone]- Additional Instructions: Patient Education Kidney Stones, Allu-lg-Efur IRadha , personally scribed for Dr. Caballero on 11/13/2020 09:19:01. . Documentation recorded by the scribe, Radha Lan, accurately reflects the services(s) I performed and decisions m (more content not included)... [facility] Comment on above: Result Comment: Elec tronically Signed By: Federico Tavarez MD, Rene Wallace\.br\Date and Time Signed: 11/13/20 09:42 EST\.br\Electronically Co-Signed By: Radha Lan MA\.br\Date and Time Co-Signed: 11/13/20 09:[address] - [address] Reporton 10-31-[address] Report [id number]#1.00CD:12 7 [facility] Vital Signs Date Time Vital Sign Value Performing Clinician Facility 12-05-2023 09:55-0500 Body mass index (BMI) [Ratio] 29.51 kg/m2 Juhi Hemmer PA Work Phone: [facility] 12-05-2023 09:55-0500 Body temperature 99 [degF] Juhi Hemmer PA Work Phone: [facility] 12-05-2023 09:55-0500 Body weight 90.63 kg Juhi Hemmer PA Work Phone: [facility] 12-05-2023 09:55-0500 Diastolic blood pressure 100 mm[Hg] Juhi Hemmer PA Work Phone: [facility] 12-05-2023 09:55-0500 Heart rate 102 /min Juhi Hemmer PA Work Phone: [facility] 12-05-2023 09:55-0500 Respiratory rate 16 /min Juhi Hemmer PA Work Phone: [facility] 12-05-2023 09:55-0500 SaO2% (BldA) [Mass fraction] 98 % Juhi Hemmer PA Work Phone: [facility] [employer] 12-05-2023 09:55-0500 Systolic blood pressure 162 mm[Hg] Juhi HANSEN Work Phone: [facility] [employer] 11-08-2023 09:49-0500 Body height 175.3 cm Helen Gonzalez MD Work Phone: [facility] [employer] 11-08-2023 09:49-0500 Body mass index (BMI) [Ratio] 29.09 kg/m2 Helen Gonzalez MD Work Phone: [facility] [employer] 11-08-2023 09:49-0500 Body weight 89.36 kg Helen Gonzalez MD Work Phone: [facility] [employer] 11-08-2023 09:49-0500 Diastolic blood pressure 86 mm[Hg] Helen Gonzalez MD Work Phone: [facility] [employer] 11-08-2023 09:49-0500 Heart rate 48 /min Helen Gonzalez MD Work Phone: [facility] [employer] 11-08-2023 09:49-0500 SaO2% (BldA) [Mass fraction] 99 % Helen [facility] 11-08-2023 09:49-0500 Systolic blood pressure 160 mm[Hg] [facility] 11-09-2022 12:47-0500 Diastolic blood pressure 88 mm[Hg] Fredrick Boothby DO Work Phone: [employer] 11-09-2022 12:47-0500 Heart rate 76 /min Fredrick Boothby DO Work Phone: [facility] [employer] 11-09-2022 12:47-0500 Respiratory rate 10 /min Fredrick Boothby DO Work Phone: [facility] [employer] 11-09-2022 12:47-0500 SaO2% (BldA) [Mass fraction] 100 % Fredrick Boothby DO Work Phone: [employer] 11-09-2022 12:47-0500 Systolic blood pressure 162 mm[Hg] Fredrick Boothby DO Work Phone: [employer] 11-09-2022 12:17-0500 Body temperature 97 [degF] Fredrick [employer] Work Phone: [employer] 11-09-2022 11:14-0500 Body height 175.3 cm Fredrick [employer] Work Phone: [employer] 11-09-2022 11:14-0500 Body mass index (BMI) [Ratio] 29.98 kg/m2 Fredrick [employer] Work Phone: [employer] 11-09-2022 11:14-0500 Body weight 92.08 kg Fredrick [employer] Work Phone: [facility] [employer] 10-05-2022 10:14-0500 Body height 175.26 cm II Christopher Velazquez Work Phone: [facility] 10-05-2022 10:14-0500 Body mass index (BMI) [Ratio] 31.4 kg/m2 II Christopher Velazquez Work Phone: [facility] 10-05-2022 10:14-0500 Body weight 96.61 kg II Christopher Velazquez Work Phone: [facility] 10-05-2022 09:45-0500 Body temperature 97.5 [degF] II Christopher Velazquez Work Phone: [facility] 10-05-2022 09:45-0500 Diastolic blood pressure 84 mm[Hg] II Christopher Velazquez Work Phone: [facility] 10-05-2022 09:45-0500 Heart rate 68 /min II Christopher Velazquez Work Phone: [facility] 10-05-2022 09:45-0500 Respiratory rate 18 /min II Christophersimon Velazquez Work Phone: [facility] 10-05-2022 09:45-0500 Systolic blood pressure 160 mm[Hg] II Christopher Velazquez Work Phone: [facility] 09-30-2022 13:59-0500 Body temperature 97.9 [degF] II Christopher Velazquez Work Phone: [facility] 09-30-2022 13:59-0500 Diastolic blood pressure 83 mm[Hg] II Christopher Velazquez Work Phone: [facility] 09-30-2022 13:59-0500 Heart rate 56 /min II Christopher Velazquez Work Phone: [facility] 09-30-2022 13:59-0500 SaO2% (BldA) [Mass fraction] 95 % II Christopher Velazquez Work Phone: [facility] 09-30-2022 13:59-0500 Systolic blood pressure 135 mm[Hg] II Christopher Velazquez Work Phone: [facility] 09-30-2022 07:45-0500 Respiratory rate 18 /min II Christopher Velazquez Work Phone: [facility] 09-29-2022 07:28-0500 Body height 175.26 cm II Christopher Velazquez Work Phone: [facility] 09-26-2022 05:50-0500 Body weight 105 kg II Christopher Velazquez Work Phone: [facility] Encounters Encounter Date Encounter Type Care Provider Facility Start: 05-31-2024 End: 05-31-2024 ambulatory CHRISTOPHER B VELAZQUEZ Not Available Start: 05-18-2024 End: 05-18-2024 ambulatory CHRISTOPHER B VELAZQUEZ Not Available Start: 05-16-2024 End: 05-16-2024 ambulatory CHRISTOPHER B VELAZQUEZ Not Available Start: 05-09-2024 End: 05-09-2024 ambulatory FBA CORETZ [facility] Start: 04-30-2024 ambulatory DAVE PRESSLEY [facility] Start: 04-30-2024 End: 04-30-2024 ambulatory [facility] Start: 04-24-2024 End: 04-24-2024 ambulatory NANDO Patrice LAINEY Not Available Start: 04-17-2024 End: 04-17-2024 ambulatory NANDO Patrice LAINEY Not Available Start: 04-10-2024 End: 04-10-2024 ambulatory [facility] Start: 04-05-2024 End: 04-05-2024 ambulatory EVA SANCHEZ Not Available Start: 03-29-2024 End: 03-29-2024 ambulatory [facility] Start: 03-09-2024 End: 03-09-2024 ambulatory JUHI SULLIVAN Not Available Start: 03-08-2024 End: 03-08-2024 ambulatory [facility] Start: 03-02-2024 ambulatory CHRISTOPHER VELAZQUEZ [facility] Start: 03-02-2024 ambulatory CHRISTOPHER VELAZQUEZ [facility] Start: 02-29-2024 ambulatory [facility] Start: 02-29-2024 End: 02-29-2024 ambulatory [facility] Start: 02-14-2024 End: 02-14-2024 ambulatory [facility] Start: 01-28-2024 End: 01-29-2024 Emergency department patient visit LAUREN MARTIN [facility] Start: 01-17-2024 End: 01-17-2024 ambulatory NANDO S LAINEY Not Available Start: 01-09-2024 End: 01-09-2024 ambulatory CHRISTOPHER VELAZQUEZ Not Available Start: 12-06-2023 End: 12-06-2023 Office outpatient visit 25 minutes Eva Sanchez DO Work Phone: [facility] Comment on above: Left shoulder pain, unspecified chronicity (Primary Dx); Rotator cuff tear arthropathy of left shoulder; Primary osteoarthritis of left shoulder Start: 12-06-2023 End: 12-06-2023 ambulatory EVA SANCHEZ Not Available Start: 12-05-2023 Bamboo flowsheet Juhi Peterson Hemme r PA Work Phone: [facility] Start: 12-05-2023 Bamboo flowsheet Juhi Peterson Hemme r PA Work Phone: [facility] Start: 12-05-2023 End: 12-05-2023 Office outpatient visit 15 minutes Juhi Sullivan PA Work Phone: [facility] Comment on above: Chronic obstructive pulmonary disease with acute exacerbation (CMS/HCC) (Primary Dx) Start: 12-05-2023 End: 12-05-2023 ambulatory JUHI SULLIVAN Not Available Start: 11-16-2023 End: 11-16-2023 ambulatory CHRISTOPHER VELAZQUEZ Not Available Start: 11-08-2023 End: 11-08-2023 [facility] Start: 11-08-2023 End: 11-08-2023 Office outpatient visit 10 minutes Helen Gonzalez MD Work Phone: [facility] Comment on above: Venous insufficiency of both lower extremities (Primary Dx); Lymphedema of both lower extremities Start: 11-03-2023 End: 11-04-2023 [facility] Start: 10-26-2023 Telephone encounter Helen Gonzalez MD Work Phone: [facility] Start: 10-25-2023 End: 10-25-2023 ambulatory EVA SANCHEZ Not Available Start: 10-11-2023 End: 10-11-2023 [facility] Start: 01-10-2023 End: 01-10-2023 ambulatory CHRISTOPHER VELAZQUEZ [facility] Start: 11-09-2022 End: 11-09-2022 ambulatory FREDRICK BABIN [facility] Start: 11-09-2022 End: 11-09-2022 Subsequent hospital visit by physician Fredrick Babin DO Work Phone: [facility] Comment on above: Surgical site infect ion (Primary Dx); Post-op pain Start: 11-08-2022 End: 11-08-2022 ambulatory CHRISTOPHER VELAZQUEZ [facility] Start: 10-19-2022 End: 10-27-2022 Evaluation and management of inpatient FREDRICK BABIN [facility] Start: 10-14-2022 End: 10-14-2022 ambulatory CHRISTOPHER VELAZQUEZ [facility] Start: 10-05-2022 ambulatory Christopher Velazquez Facility:[facility] Start: 10-05-2022 End: 10-05-2022 ambulatory II Christopher Velazquez Work Phone: [facility] Work Phone: Start: 10-05-2022 End: 10-05-2022 Discharged Recurring II Christopher Velazquez Work Phone: [facility] Work Phone: Start: 09-11-2022 End: 09-30-2022 Evaluation and management of inpatient Gordon Smith Facility:[facility] Start: 09-11-2022 End: 09-30-2022 Evaluation and management of inpatient II Christopher Velazquez Work Phone: [facility] Work Phone: Start: 09-06-2022 ambulatory Marina Cheng Facility:[facility] Start: 09-05-2022 End: 09-11-2022 Evaluation and management of inpatient MICHAEL REINOSO [facility] Start: 09-05-2022 Emergency department patient visit CHRISTOPHER VELAZQUEZ [facility] Start: 09-03-2022 End: 09-04-2022 ambulatory Marina Cheng [...] Evaluation and management of inpatient CHRISTOPHER YANG Facility:[facility] Start: 10-22-2021 End: 10-22-[address] CHRISTOPHER VLEAZQUEZ Facility:[facility] Start: 08-31-2021 End: 09-01-[address] CHRISTOPHER VELAZQUEZ Facility:[facility] Procedures Date Procedure Procedure Detail Performing Clinician Start: 12-06-2023 Arthrocentesis aspir &/inj major jt/bursa w/o us Eva Sanchez DO Work Phone: Start: 11-08-2023 Follow-up visit Follow-up BABATUN DE ORIOWO Start: 11-09-2022 CREATININE W/GFR POI NT OF CARE Fredrick Babin DO Work Phone: Start: 11-09-2022 Gluc bld gluc mntr d ev cleared fda spec home use Fredrick Babin DO Work Phone: Start: 09-27-2022 Aerobic [...] Velazquez Work Phone: Start: 09-27-2019 Colonoscopy Fredrick booker DO Work Phone: Plan of Treatment Date Care Activity Detail Author Start: 09-05-2032 DTaP,Tdap and Td Vaccines (3 - Td or Tdap) DTaP,Tdap and Td Vaccines (3 - Td or Tdap) [facility] Start: 09-05-2032 DTaP/Tdap/Td vaccine (3 - Td or Tdap) DTaP/Tdap/Td vaccine (3 - Td or Tdap) [facility] Start: 09-27-2029 Screening for malign ant neoplasm of colon [facility] Start: 11-08-2024 Adult BMI Screening Adult BMI Screen [facility] Start: 11-08-2024 Tobacco Screening Tobacco Screening [facility] Start: 10-13-2024 Tobacco Screening Tobacco Screening [facility] Start: 10-11-2024 Adult BMI Screening Adult BMI Screen ing [facility] Start: 08-18-2024 Urine screening for protein Diabetes: Urine Protein Screening [facility] Start: 02-07-2024 End: 02-07-2024 Patient encounter procedure 02/07/2024 1:00 PM EDT Office Visit [facility] [address] [place] [address] Helen Gonzalez MD [address] [place] [address] [facility] Start: 01-31-2024 End: 01-31-2024 Patient encounter procedure 01/31/2024 1:15 PM EDT Office Visit [facility] [address] [facility] [address] [place] [address] Eva Sanchez, [address] [facility] [address] [place] [address] [facility] Start: 01-13-2024 Medicare Annual Well ness (AWV) Medicare Annual Wellness (AWV) [facility] Start: 12-19-2023 End: 12-19-2023 Patient encounter procedure 12/19/2023 2:30 PM EST Office Visit [facility] [address] [facility] [address] [place] [address] Christopher Velazquez MD [address] [facility] [address] [place] [address] [facility] Start: 12-05-2023 End: 12-05-2023 Patient encounter procedure 12/05/2023 10:00 AM EST Office Visit [facility] [address] [facility] [address] [place] [address] Juhi Sullivan PA [address] [facility] [address] [place] [address] Arrived [facility] Comment on above: Arrived Start: 11-08-2023 End: 11-08-2023 Patient encounter procedure 11/08/2023 10:10 AM EST [facility] [address] [place] [address] Helen Gonzalez MD [address] [place] [address] [facility] Start: 11-03-2023 End: 11-03-2023 Patient encounter procedure 11/03/2023 2:30 PM EST Appointment [facility] [address] [place] [address] Helen Gonzalez MD [address] [place] [address] [facility] Start: 10-28-2023 Hemoglobin A1c measurement Diabetes: Hemoglobin A1C [facility] Start: 06-24-2023 COVID-19 Vaccine ( season) COVID-19 Vaccine ( season) [facility] Start: 11-22-2022 End: 11-22-2022 Patient encounter procedure 11/22/2022 Office Visit Orthopedic Surgery Fredrick Babin, DO [address] [address] [facility] Start: 11-15-2022 End: 11-15-2022 Patient encounter procedure 11/15/2022 Office Visit Orthopedic Surgery Fredrick Babin, [address] [address] [facility] Start: 11-09-2022 End: 11-09-2022 ANKLE OPEN REDUCTION INTERNAL FIXATION ANKLE OPEN REDUCTION INTERNAL FIXATION Open wound of left ankle, initial encounter 11/09/2022 11:14 AM [facility] Start: 11-08-2022 Annual Wellness Visi t (AWV) Annual Wellness Visit (AWV) [facility] Start: 09-30-2022 [facility] Start: 09-19-2022 Referral to vascular surgeon [facility] Start: 09-11-2022 Hospital admission [facility] Start: 09-11-2022 Referral to clinical manufacturing operator [facility] Start: 05-24-2022 Influenza vaccination Flu vaccine (# 1) [facility] Start: 05-15-2022 Administration of varicella zoster vaccine Zoster (Shingles) Vaccine (2 of 2) [facility] Start: 05-15-2022 Shingles vaccine (2 of 2) Shingles vaccine (2 of 2) [facility] Start: 02-27-2022 Lipid panel Lipids [facility] Start: 12-10-2021 COVID-19 Vaccine (4 - Booster for Pfizer series) COVID-19 Vaccine (4 - Booster for Pfizer series) [facility] Start: 04-23-2021 Glaucoma screening Diabetes: R etinopathy Screening [facility] Start: 2021 Fall Risk Screening Fall Risk Screen ing [facility] Start: 2001 Screening for malign ant neoplasm of colon [facility] Start: 1974 Adult BMI Follow Up Plan Adult BMI Follow Up Plan [facility] Start: 1974 Diabetic foot examination Diabetic Foot Exam [facility] Start: 1974 Hepatitis C screening Hepatitis C sc reen [facility] Start: 1968 Depression Screen [facility] Start: 1968 Depression Screening Depression Scre ening [facility] [employer] [facility] Start: 1956 Glaucoma screening Diabetic Op hthalmology Exam [facility] [employer] Start: 1956 Medicare Annual Well ness Visit Medicare Annual Wellness Visit [facility] [employer] [facility] Start: 1956 Screening for malign ant neoplasm of colon [facility] End: 11-09-2022 INITIATE PACU OXYGEN THERAPY PROTOCOL Initiate PACU Oxygen Therapy Protocol Respiratory Care Routine Continuous until discontinued starting 11/09/2022 [facility] Work Phone: Comment on above: Continuous until dis continued starting 11/09/2022 Patient Education Deep Vein Thro mbosis (Blood Clots in the Legs) (DC) Apixaban Going Home on Blood Thinners [facility] Work Phone: Patient referral [facility] Work Phone: End: 11-09-2022 POC CHEM8 INCLUDES CALC. ANION GAP POC CHEM8 INCLUDES CALC. ANION GAP Point of Care Testing STAT One Time for 1 Occurrences starting 11/09/2022 until 11/09/2022 [facility] Work Phone: Comment on above: One Time for 1 Occur rences starting 11/09/2022 until 11/09/2022 [facility] Immunizations Immunization Date Immunization Notes Care Provider John freed 08-18-2023 Influenza, High-dose Seasonal, Quadrivalent, Preservative Free Juhi HANSEN Work Phone: [facility] 09-05-2022 tetanus toxoid, redu vianey diphtheria toxoid, and acellular pertussis vaccine, adsorbed Fredrick Babin DO Work Phone: [facility] [employer] 07-05-2022 tetanus toxoid, redu vianey diphtheria toxoid, and acellular pertussis vaccine, adsorbed Juhi HANSEN Work Phone: [facility] 03-20-2022 zoster vaccine recombinant Juhi Hemmer PA Work Phone: [facility] 03-20-2022 zoster vaccine, unspecified formulation Helen Gonzalez MD Work Phone: [facility] 03-09-2022 Pneumococcal Conjuga te PCV 20 Juhi Hemmer PA Work Phone: [facility] 02-15-2022 pneumococcal polysaccharide vaccine, 23 valent Juhi Hemmer PA Work Phone: [facility] 09-10-2021 influenza, high dose seasonal, preservative-free Juhi Hemmer PA Work Phone: [facility] 09-09-2021 influenza, high dose seasonal, preservative-free Juhi Hemmer PA Work Phone: [facility] 02-23-2021 Pfizer Purple Cap SARS-CoV-2 Vaccination Juhi Hemmer PA Work Phone: [facility] 02-22-2021 Pfizer Purple Cap SARS-CoV-2 Vaccination Juhi Hemmer PA Work Phone: [facility] 01-26-2021 Pfizer Purple Cap SARS-CoV-2 Vaccination Juhi Hemmer PA Work Phone: [facility] 01-25-2021 Pfizer Purple Cap SARS-CoV-2 Vaccination Juhi Hemmer PA Work Phone: [facility] 08-25-2020 influenza, injectabl e, quadrivalent, preservative free Juhi Hemmer PA Work Phone: [facility] 08-06-2020 influenza, high dose seasonal, preservative-free Juhi Hemmer PA Work Phone: [facility] 08-13-2019 Influenza, injectabl e, Madin Burnside Canine Kidney, quadrivalent with preservative Juhi Hemmer PA Work Phone: [facility] 08-13-2019 influenza, injectabl e, madin brandon canine kidney, preservative free Juhi Hemmer PA Work Phone: [facility] 11-07-2018 influenza, injectabl e, quadrivalent, preservative free CHAPO Velazquez Work Phone: [facility] 08-02-2018 seasonal influenza, intradermal, preservative free Juhi HANSEN Work Phone: [facility] 08-31-2017 influenza, injectabl e, quadrivalent, preservative free Juhi HANSEN Work Phone: [facility] 08-25-2012 pneumococcal polysaccharide vaccine, 23 valent Juhi HANSEN Work Phone: [facility] 08-25-2012 seasonal influenza, intradermal, preservative free Juhi HANSEN Work Phone: [facility] Payers Date Payer Category Payer Unknown [id number] 2022 Medicare [id number] 2022 Self-pay 2022 Unknown [id number] 2022 Unknown 2017 Unknown [id number] 2017 Unknown [id number] 2017 Unknown [id number] 2015 Medicare [id number] 1959 Unknown [id number] 1956 Unknown [id number] 2.16.840.1.309741.3.579.2 .647 1956 Unknown [id number] 2.16.840.1.092534.3.579.2 .593 1956 Unknown [id number] 2.16.840.1.319508.3.579.2 .593 1956 Unknown [id number] 2.16.840.1.519746.3.579.2 .593 1956 Unknown [id number] 2.16.840.1.615691.3.579.2 .593 1956 Unknown [id number] 2.16.840.1.758557.3.579.2 .175 1956 Unknown [id number] 2.16.840.1.793661.3.579.2 .196 1956 Unknown [id number] 2.16.840.1.514590.3.579.2 .196 1956 Unknown [id number] 2.16.840.1.140144.3.579.2 .196 1956 Unknown [id number] 2.16.840.1.497124.3.579.2 .196 1956 Unknown [id number] 2.16.840.1.004575.3.579.2 .196 1956 Unknown [id number] 2.16.840.1.531465.3.579.2 .175 1956 Unknown [id number] 2.16.840.1.504933.3.579.2 .175 1956 Unknown [id number] 2.16.840.1.726903.3.579.2 .175 1956 Unknown [id number] 2.16.840.1.287102.3.579.2 .175 1956 Unknown [id number] 2.16.840.1.288386.3.579.2 .175 1956 Unknown [id number] 2.16.840.1.313165.3.579.2 .1286 1956 Unknown [id number] 2.16.840.1.711143.3.579.2 .1285 1956 Unknown [id number] 2.16.840.1.366557.3.579.2 .1285 1956 Unknown [id number] 2.16.840.1.893589.3.579.2 .128 1956 Unknown [id number] 2.16.840.1.569850.3.579.2 .1286 1956 Unknown [id number] 2.16.840.1.991397.3.579.2 .1286 1956 Unknown [id number] 2.16.840.1.415055.3.579.2 .1286 1956 Unknown [id number] 2.16.840.1.211133.3.579.2 .125 1956 Unknown [id number] 2.16.840.1.372160.3.579.2 .1259 1956 Unknown [id number] 2.16.840.1.481784.3.579.2 .1258 1956 Unknown [id number] 2.16.840.1.152678.3.579.2 .1258 1956 Unknown [id number] 2.16.840.1.246995.3.579.2 .1258 1956 Unknown [id number] 2.16.840.1.089271.3.579.2 .1258 1956 Unknown [id number] 2.16.840.1.683211.3.579.2 .1258 1956 Unknown [id number] 2.16.840.1.942282.3.579.2 .1258 1956 Unknown [id number] 2.16.840.1.840512.3.579.2 .125 1956 Unknown [id number] 2.16.840.1.082627.3.579.2 .1258 1956 Unknown [id number] 2.16.840.1.284341.3.579.2 .1258 1956 Unknown [id number] 2.16.840.1.813529.3.579.2 .125 1956 Unknown [id number] 2.16.840.1.794204.3.579.2 .1258 1956 Unknown [id number] 2.16.840.1.645416.3.579.2 .1259 Private Health Insurance [facility] [id number] Unknown [id number] 2.16.840.1.858925.3.579.2 .531 Unknown [id number] 2.16.840.1.254519.3.579.2 .531 Social History Date Type Detail Facility Start: 09-06-2022 End: 08-17-2023 Tobacco smoking status [facility] Ex-smoker [employer] End: 10-24-2005 History of tobacco use Current smoker [employer] Phone: End: 10-24-2005 History of tobacco use Cigarette Smoker [employer] Phone: Start: 09-06-2022 End: 07-25-2023 Tobacco use and exposure Smokeless tobacco non-user [employer] Phone: Start: 11-09-2022 End: 12-05-2023 Alcohol intake Ex-drinker (finding) [employer] Phone: Start: 06-06-2013 Alcohol Comment occasional [employer] Phone: Start: 1955 Sex Assigned At Not on file [employer] Phone: Start: 10-09-2022 End: 10-19-2022 Exposure to SARS-CoV-2 (event) Not sure [employer] Start: 1955 Sex Assigned At Male [facility] Start: 05-30-2023 End: 07-25-2023 Cigarettes smoked current (pack per day) - Reported 1.5 [employer] [facility] Start: 10-13-2023 End: 11-08-2023 Alcohol intake Current non-drinker of alcohol (finding) [facility] [employer] [facility] Start: 05-30-2023 End: 10-13-2023 Tobacco use panel [facility] How hard is it for y ou to pay for the very basics like food, housing, medical care, and heating Not hard at all [facility] Within the last year , have you been afraid of your partner or ex-partner? No [facility] Work Phone: Do you belong to any clubs or organizations such as tenriism groups, unions, fraternal or athletic groups, or [...] 08-17-2023 Tobacco Comment Last smoked 10-15 years [facility] Start: 04-28-2023 Alcohol Comment Caffeine intake: yes, coffee [facility] Medical Equipment Procedure Code Equipment Code Equipment Origin al Text Equipment Identifier Dates Screw Bne L80mm Dia3.5mm Pelv [place] [address] Thrd Sm Hex - [id number] Start: 09-06-2022 Plate Bone L103m m 7 H Strl Lt Lat Dstl Fibular S Stl For - [id number] Start: 10-19-2022 Goals Date Patient Goal Desired Activity /State Personal health goal Comment on above: Formatting of this n ote might be different from the original. Evaluation of progress towards goal: Safe dc transition from hospital to home with family support. Functional Status Date Assessment Result Facility 09-30-2022 Functional status Patient is Pro gressing Toward [facility] Work Phone: 09-11-2022 Functional status Disability Sta tus Patient is Progressing Toward [facility] Work Phone: Mental Status Date Assessment Result Facility 09-30-2022 Cognitive function Cognitive Sta s Patient at [facility] Work Phone: Clinical Notes 10-31-2020 to 05-09-2024 Eva Sanchez DO - 12/06/2023 9:30 AM JADE Tanner - 12/05/2023 10:00 AM Mari Gonzalez MD - 11/08/2023 10:10 AM ESTTelephone Encounter - Antonietta Georges - 10/26/2023 9:07 AM EST Note Date & Type Note Facility 05-09-2024 Note [facility] SUBJECTIVE Chief Complaint Patient presents with Follow-up Follow up cardioversion Indio Collado is a 69 y.o. male here for follow-up. His friend Emili accompanied him today. HPI PMHx: CAD, HTN, HFpEF, DVT, obesity s/p bariatric surgery, a.fib 05/09/2024 Since I last saw him, he underwent a coronary angiogram which showed mild CAD and patent Lcx stent. He also saw Dr. Pressley and a.fib ablation was discussed. He was started on amio and underwent a DCCV on 04/30/24. Since his cardioversion, he has noticed increased SOB. 03/08/24 Since last seen he underwent a HI/Cv'n. He was able to be converted to sinus rhythm. He denies any significant changes since last seen. He increased his lasix but he feels like his leg swelling is unchanged. He continues to work at 3 jobs. He works at [employer] and eats their food when he drinks. [...] gain. He admits to eating food at [employer] and drinking more pop that he typically [...] inflammation (CMS/HCC) Acute systolic heart failure (CMS/HCC) Hypertensive disorder Past Medical History: Diagnosis Date Abnormal ECG Arrhythmia Atrial fibrillation (CMS/HCC) CHF (congestive heart failure) (CMS/HCC) Coronary artery disease Deep vein thrombosis (CMS/HCC) H (more content not included)... [facility] 04-30-2024 Note DIRECT CARDIOVERSION PROCEDURE NOTE Date: 04/30/24 Type of procedure: DC Cardioversion. Performed by: Dave Pressley MD Informed consent: Signed by patient. Indication: 69year old with past medical history of hypertension, CAD, HFpEF, DVT, obesity s/p bariatric surgery had recently undergone HI guided cardioversion on 02/29/2024 for his underlying atrial fibrillation. Prior to that he was evaluated in the ER for chest pain and shortness of breath and was noted to be in atrial fibrillation which is a new diagnosis for him he was rate controlled on Cardizem and subsequently discharged on Xarelto. During HI he was noted to have a ejection fraction of 30 to 35% and prior evaluation of the ejection fraction with echo and Lexiscan in the past has been normal. He had a previous coronary angiography done in July 2018 which revealed mild CAD with patent stent in OM1 and moderately elevated right-sided pressures. Since the time of his cardioversion he was evaluated again by Roxane Cortez on 03/08/2024 and which revealed that he had reverted back to A-fib. He was placed on Amio and brought for DCCV. He had been on uninterrupted anticoagulation for minimum of 6 weeks. Hence, HI was deferred. Preparation and technique: Patient was brought into the procedure room. After an informed consent was obtained following a discussion with the patient where I explained the risk and benefit of the procedure that is not limited to skin goode, fluid in the lungs, heart attack, stroke, or even , though that is very rare. Patches were placed in anteroposterior direction and once patient was made comfortable with Versed 1mg and Fentanyl 25mcg. Following sedation, the patient underwent synchronized cardioversion using 360J which converted to sinus bradycardia. Post procedure, the patient was stable. No complications noted. Plan: Continue anticoagulation and consider ablation. Dave Pressley MD Cardiac Electrophysiology [facility] 04-30-2024 Note Patient: Indio sanders Procedure Information Date/Time: 04/30/24 0900 Procedure: Cardioversion - in three weeks Location: [facility] HOLDING ROOM / [facility] (Cath) Providers: Dave Pressley MD Clinical information reviewed: Tobacco Allergies Meds Med Hx Surg Hx Fam Hx Physical Exam Airway Mallampati: II TM distance: >3 FB Neck ROM: full Cardiovascular Dental Pulmonary Abdominal Anesthesia Plan ASA 2 CSE Anesthetic plan and risks discussed with patient. Use of blood products discussed with patient who. Additional Equipment Requests [facility] 04-10-2024 Note [place] Electrophysiology Consult Note [place] Card[facility] Reason for visit: atrial fibrillation HPI: Indio Collado is a 68 y.o. year old with past medical history of hypertension, CAD, HFpEF, DVT, obesity s/p bariatric surgery had recently undergone HI guided cardioversion on 02/29/2024 for his underlying atrial fibrillation. Prior to that he was evaluated in the ER for chest pain and shortness of breath and was noted to be in atrial fibrillation which is a new diagnosis for him he was rate controlled on Cardizem and subsequently discharged on Xarelto. During HI he was noted to have a ejection fraction of 30 to 35% and prior evaluation of the ejection fraction with echo and Lexiscan in the past has been normal. He had a previous coronary angiography done in July 2018 which revealed mild CAD with patent stent in OM1 and moderately elevated right-sided pressures. Since the time of his cardioversion he was evaluated again by Roxane Cortez on 03/08/2024 and which revealed that he had reverted back to A-fib. He is here to talk to me about further discussion about ablation Denies chest pain, lightheadedness/syncope, and bleeding on Xarelto. Palpitations have resolved, and SOB continues to improve. PMH: Past Medical History: Diagnosis Date Abnormal ECG Arrhythmia Atrial fibrillation (CMS/HCC) CHF (congestive heart failure) (CMS/HCC) Coronary artery disease Deep vein thrombosis (CMS/HCC) Hyperlipidemia Hypertension Myocardial infarction (CMS/HCC) Sleep apnea PSH: Past Surgical History: Procedure Laterality Date CARDIAC CATHETERIZATION CORONARY STENT PLACEMENT GASTRIC BYPASS REPLACEMENT TOTAL KNEE ONCOLOGIC SH: Social Determinants of Health Tobacco Use: Medium Risk (03/21/2024) Patient History Smoking Tobacco Use: Former Smokeless Tobacco Use: Never Passive Exposure: Not on file Alcohol Use: Not on file Financial Resource Strain: Not on file Food Insecurity: Not on file Transportation Needs: Not on file Physical Activity: Not on file Stress: Not on file Social Connections: Not on file Intimate Partner Violence: Unknown (12/15/2023) [place] Safety & Environment Fear of Current or Ex-Partner: Not on file Emotionally Abused: Not on file Physically Abused: Not on file Sexually Abused: Not on file Physically or Sexually Abused: Not on file Depression: Not on file Housing Stability: Not on file Utilities: Not on file Allergies: Allergies Allergen Reactions Penicillins Hives, Other, Rash and Unknown Morphine Nausea And Vomiting Weight: 85.3kg Visit Vitals BP 128/82 (BP Location: Right arm, Patient Position: Sitting) Pulse 76 Ht 1.753 m (5' 9 ) Wt 85.3 kg (188 lb) SpO2 97% BMI 27.76 kg/m??? Smoking Status Former BSA 2.04 m??? Meds: Current Outpatient Medications on File Prior to Visit Medication Sig Dispense Refill atorvastatin (Lipitor) 80 mg tablet Take 80 mg by mouth in the morning. dapagliflozin propanediol (Farxiga) 10 mg Take 1 tablet (10 mg) by mouth in the morning. 30 tablet 11 furosemide (Lasix) 20 mg tablet Take 2 tablets (40 mg) by mouth in the morning. (Patient taking differently: Take 40 mg by mouth in the morning. Sometimes takes an extra tablet in the afternoon) 30 tablet 0 gabapentin (Neurontin) 300 mg capsule TAKE 3 CAPSULES BY MOUTH IN THE MORNING, IN THE EVENING AND BEFORE BEDTIME metoprolol succinate XL (Toprol-XL) 25 mg 24 hr tablet Take 1 tablet (25 mg) by mouth in the morning. Do not crush or chew. 30 tablet 11 omeprazole (PriLOSEC) [address] capsule Take 40 mg by mouth before breakfast. potassium chloride CR (Klor-Con M10) 10 mEq ER tablet Take 2 tablets (20 mEq) by mouth in the morning and at bedtime. Do not crush or chew. 120 tablet 11 rivaroxaban (Xarelto) 20 mg tablet Take 1 tablet (20 mg) by mouth daily with evening meal. Take with food. (Patient taking differently: Take 20 mg by mouth in the morning. Take with food.) 90 tablet 3 sacubitril-valsartan (Entresto) 24-26 mg tablet Take 1 tablet by mouth in the morning and at bedtime. 60 tablet 12 zolpidem (Ambien) 10 mg tablet TAKE 1 TABLET BY MOUTH NEEDED AT BEDTIME FOR SLEEP [DISCONTINUED] cefdinir (Omnicef) 300 mg capsule Take 300 mg by mouth in the morning and at bedtime. [DISCONTINUED] docusate sodium (Colace) 100 mg capsule Take 100 mg by mouth in the morning and at bedtime. No current facility-administered medications on file prior to visit. ROS: Review of Systems Constitutional: Positive for malaise/fatigue. Cardiovascular: Positive for dyspnea on exertion (improving) and leg swelling. Respiratory: Positive for shortness of breath (improving). Skin: Positive for color change. All other systems reviewed and are negative. Physical Exam: Constitutional General Appearance: well-nourished, well-developed, appears stated age Level of Distress: comfortable Psychiatric Mental Status: alert, normal affec (more content not included)... [facility] 03-29-2024 Note Cardiovascular Labor atory Report FINAL IMPRESSIONS: Mild coronary artery disease Patent stent in the left circumflex coronary artery Moderately reduced global left ventricular systolic function by echocardiography Moderately elevated right-sided heart pressures and wedge pressure consistent with biventricular congestive failure Mildly reduced cardiac output/cardiac index Mild systemic hypertension RECOMMENDATIONS: Aggressive cardiovascular risk factor modification Optimal medical therapy for coronary artery disease should include antiplatelet/anticoagulant therapy, high intensity statin therapy, and a beta-jessica For heart failure with reduced ejection fraction, a beta-jessica, a RAAS inhibitor/ARNI, an SGLT2 inhibitor and spironolactone are recommended Consider nonischemic etiologies for the patient's left ventricular systolic dysfunction; rate/rhythm related cardiomyopathy due to his underlying atrial fibrillation is most likely Will increase Lasix to 40 mg PO BID given elevated filling pressures A basic metabolic panel will be checked in a week Consider referral for atrial fibrillation ablation given reduced ejection fraction and likely rate/rhythm related cardiomyopathy Follow-up with Colleen Cortez CNP and Dave Pressley MD PROCEDURES: Ultrasound-guided access to the right common femoral artery, limited femoral angiography, ultrasound-guided access to the right common femoral vein, right heart catheterization, bilateral selective coronary angiography, placement of a 6 [place] Mynx certified pediatric nurse practitioner closure device METHODS: After risks, benefits, and alternatives were explained, written informed consent was obtained. The patient was prepped and draped in usual sterile fashion over both groins. Using 1% lidocaine solution, local infiltration anesthesia was achieved. Using a modified Seldinger technique, a micropuncture kit, and under ultrasound guidance, access to the right common femoral vein and artery was obtained. The micropuncture kit was upsized to a 6 [place] 11 cm sheath. Angiography via the sheath was performed. Right heart catheterization was performed using a Hardwick catheter via the venous sheath. Pressures were measured in the right atrium, right ventricle, pulmonary artery, and pulmonary capillary wedge positions. Oxygen saturations were obtained and cardiac output/cardiac index was calculated using the modified Madeleine principle. The Hardwick catheter was removed. Bilateral selective coronary angiography was performed using JL4 and JR4 catheters. After reviewing the images, it was elected to conclude the procedure. All catheters were removed. A 6 [place] Mynx closure device was deployed per protocol to achieve hemostasis. The venous sheath was to be removed with application of manual pressure to achieve optimal hemostasis. Overall the patient tolerated the procedure well. There were no overt complications. He was to be transferred to the holding area in stable condition. FINDINGS: Hemodynamics: RA 9 RV 52/5, 9 PA 52/26 [38] PCWP 23 TPG 15 AO 141/80 [105] Cardiac output /cardiac index 4.86/2.33 AO sat /PA sat 97%/62% LEFT VENTRICULOGRAPHY: This was not performed; ejection fraction is 30 to 35% by echocardiography. CORONARY ARTERIES: Left main coronary artery: This arises from the left coronary cusp, it bifurcates into the left anterior descending and left circumflex coronary arteries. It is free of significant stenosis. Left anterior descending coronary artery: This is angiographically nonobstructive. Left circumflex coronary artery: This appears to be a codominant vessel giving rise to posterolateral branches. It shows a patent stent in the midportion of the vessel. There is mild plaque disease distally. The ostium of a second obtuse marginal shows a 40% stenosis. Right coronary artery: This is a codominant vessel arising from the right coronary cusp, it gives rise to the posterior descending branch. It is angiographically nonobstructive. Limited femoral angiography: This shows anatomy suitable for a closure device. INDICATIONS: Newly diagnosed heart failure with reduced ejection fraction, atrial fibrillation, coronary artery disease [facility] 03-08-2024 Note Cardiovascular Medic [facility] SUBJECTIVE Chief Complaint Patient presents with Atrial [...] work at 3 jobs. He works at [employer] and eats their food when he drinks. [...] working 3 jobs. He started working a [employer] last month, this is when he noticed the weight gain. He admits to eating food at [employer] and drinking more pop that he typically [...] Cigarettes Smokeless tobacco (more content not included)... [facility] 03-08-2024 Note Patient here for fol low [...] All other systems reviewed and are negative. [facility] 02-29-2024 Note Cardiology DC Cardio version Procedure [...] No hemodynamic complications noted. Kristen Bai MD Airport Tower Controller - PGY5 [facility] I attest that I supervised this [...] neurological examination was intact. Ellen Taveras MD, [facility] 02-29-2024 Note H&P reviewed. The pa tient was examined and there are no changes to the H&P. The procedure was explained to the patient. The risks and benefits of the procedure were explained to the patient who showed understanding and with full capacity elected to proceed with the procedure. All questions were addressed and answered. Kristen Bai MD Airport Tower Controller - PGY5 [facility] 02-14-2024 Note Cardiovascular Medic [facility] SUBJECTIVE Chief Complaint Patient presents [...] gain. He admits to eating food at [employer] and drinking more pop that he typically does. He admits he needs to slow down with his jobs. He will likely quit [employer]. He notes that since his gastric bypass [...] dilTIAZem CD (Cardizem (more content not included)... [facility] 02-14-2024 Note Patient here for [facility] ED. He was diagnosed with new onset [...] All other systems reviewed and are negative. [facility] 12-06-2023 History of Present illness Narrative Associated [...] breaks. Tripped and fell 07/25/23, went to [facility] ER, had XR. Pain has been getting [...] TYL, ice, heat, creams, depo injection 05/31/23, [facility] ER with XR 07/25/23, icy hot,aspiration/GH depo [...] 09/01/2021 Amputation of toe of left foot ([facility]) 08/04/2023 2nd toe Diverticulosis H/O knee surgery 2021 Heart disease History of blood clots Hx of being hospitalized acute renal failure, elevated troponin, elevated dimmer, thrombocytopenia Hypertension ([facility]) Shingles Stomach problems Venous stasis ulcer Left [...] left shoulder dated July 25, 2023 from [facility]. There is narrowing of the acromioclavicular joint [...] Greg Sanchez D.O. documented in this encounter [facility] 12-05-2023 History of Present illness Narrative [...] TONSILLECTOMY TOTAL KNEE ARTHROPLASTY TOTAL KNEE ARTHROPLASTY 2014 Visit Vitals BP (!) 162/100 Pulse 102 [...] Chronic obstructive pulmonary disease with acute exacerbation ([facility]) - azithromycin (Zithromax) 250 MG tablet; Take [...] Appointment As Scheduled. documented in this encounter [facility] 11-08-2023 History of Present illness Narrative [...] back in 3 months for follow-up visit. Indio was seen today for follow-up. Diagnoses and [...] for your understanding. documented in this encounter [facility] 10-26-2023 Miscellaneous Notes Good morning. Received call from patient's daughter stating that Dr. Gonzalez was supposed to order a cast for patient's leg and send to [facility]. Patient's daughter stated that there were no order when she contact the [facility] and would like to know what is going on. Patient can be reached at, or [phone]. Thank you very much. Patients girl friend is scheduling patients testing that has not been scheduled for patient at check out. Patient is now scheduled for testing and a follow up documented in this encounter [facility] [facility] 10-26-2023 Telephone encounter Note Good morning. Received call from patient's daughter stating that Dr. Gonzalez was supposed to order a cast for patient's leg and send to [facility]. Patient's daughter stated that there were no order when she contact the [facility] and would like to know what is going on. Patient can be reached at, or [phone]. Thank you very much. [facility] [facility] 10-26-2023 Telephone encounter Note Patients girl friend is scheduling patients testing that has not been scheduled for patient at check out. Patient is now scheduled for testing and a follow up [facility] [facility] 11-09-2022 Hospital Discharge instructions Shiloh Durham RN [...] his office on 11/15/21 at 1:00pm. Call [phone] with questions/concerns. No alcoholic beverages, no driving [...] by your surgeon documented in this encounter [employer] Phone: 11-09-2022 History of Present illness Narrative Dr. Babin aware that pt took eliquis last night. documented in this encounter [employer]: 10-05-2022 Progress note Note Date/Time October 05, 2022 10:14am [facility] [address] [place] [address] Wound Center Provider Note Signed Patient: Indio Collado MR#: [id number] : 1955 Acct:[id number] Age/Sex: 67 / M Copies to: Efrain V AquinoMD Christopher II, MD Seth Andrew Phillips DO Tonia Copsey, APRN~ HPI Date of Visit Date of Visit: Date of Service: 10/05/2022 Time of Service: 10:04 Narrative HPI: 10/05/22 Indio is a 67 year old presenting to [facility] wound care program for an initial [...] start?: September 06, 2022 Mode of Arrival/ Scraper Hand: Personal vehicle and Friend Assistive Device Used Today: Walker Lives with:: Alone Appetite Description: Within Normal Limits Who helps w/ dressing change?: Self Why Do You Need Help?: Can't Reach Ulcer and Limited mobility Smoking Status: Former smoker [facility] Medical History (Updated 10/05/22 @ 10:14 by [...] Abdomen: Type: Traumatic Thickness: Full Bed Appearance: [place] and Yellow Percent of Wound Bed Granulated/Red: 5 Percent of Devitalized: 95 Length (cm): 0.5 Width (cm): 11.2 Depth (cm): 0.1 CM Sq: 5.600 Surrounding Tissue Appearance: [place] Surrounding Tissue Temp: Warm Drainage Amount: None [...] Leg: Type: Traumatic Thickness: Full Bed Appearance: [place] Percent of Wound Bed Granulated/Red: 100 Percent [...] signed by MD Efrain Aquino> 10/05/22 1200 [facility] Work Phone: [phone]) 502-740010-06-2022 NotePROCEDURE: XR KNEE RT 3V COMPARISON: 03/20/2015 HISTORY: Pain of joint of knee FINDINGS: BONES:Total knee arthroplasty with long stem components. No acute fracture, dislocation or mechanical failure. Patellar resurfacing SOFT TISSUES:Negative. No visible soft tissue swelling. EFFUSION:Small suprapatellar joint effusion. Vascular calcifications. OTHER: Negative. IMPRESSION: Total knee arthroplasty with small joint effusion Electronically authenticated by: INDIO MCKNIGHT Date: 2022-07-29 18:30[facility] [id number] NotePROCEDURE: XR TIB_FIB LT 2V HISTORY: Open [...] Electronically authenticated by: THOMAS COLBERT Date: 2022-07-14 08:55[facility] [id number] NoteMR#: [id number] I [facility] Pt. Name: Indio Collado Admitted: 02/15/2022 Discharged: [...] P/Lonny Castorena MD Date Trans: 03/09/2022 10:38 A/mmo [id number] cc: Christopher Velazquez M.D. [address]01-08-2021 Note [id number]:127[facility] Evaluation note* Diagnosis Surgical site infection- Primary Post-op pain Other acute postoperative pain Wound of left ankle documented in this encounter [facility] Work Phone: evaluation note* Diagnosis Onset Date [...] Surgical wound, non healing chronic Traumatic wound chronic [facility] Work Phone: Evaluation note* Diagnosis Venous insufficiency [...] of left shoulder documented in this encounter [facility] HealthcareInstructionsNot on filedocumented in this encounterProGuernsey Memorial Hospital SystemInstructionsNot on filedocumented in this encounterProGuernsey Memorial Hospital System Summary Purpose Family History No Family History Records Found Relationship Condition Age at Onset Recorded Date/T oralia father Heart disease Unknown Not Specified Malignant neoplasm Unknown brother Malignant neoplasm Unknown sister Malignant neoplasm Unknown Advance Directives No Advanced Directives Records FoundDocuments on File Type Date Recorded Patient Clin Nurse Spec Expl anation ACP-Advance Directive 09/14/2022 9:49 AM [...] Inj/Asp: L glenohumeral Eva Sanchez DO [address] [place] [address] Referral ID Status Reason Start Date Expiration Date V isits Requested Visits Authorized [id number] Pending Review 12/06/2023 06/03/2024 1 1 Additional [...] section and content) DATE CREATED AUTHOR 02/25/2021 Matias [facility] DATE CREATED AUTHOR AUTHOR'S ORGANIZ ATION 03/13/2022 [facility] dical Specialist DATE CREATED AUTHOR AUTHOR'S ORGANIZ ATION 03/14/2022 [facility] DATE CREATED AUTHOR AUTHOR'S ORGANIZ ATION 08/02/2022 [facility] DATE CREATED AUTHOR AUTHOR'S ORGANIZ ATION 09/11/2022 [facility] DATE CREATED AUTHOR AUTHOR'S ORGANIZ ATION 09/11/2022 [facility] DATE CREATED AUTHOR AUTHOR'S ORGANIZ ATION 10/20/[facility] DATE CREATED AUTHOR AUTHOR'S ORGANIZ ATION 01/12/2023 [facility] DATE CREATED AUTHOR AUTHOR'S ORGANIZ ATION 11/09/2023 [facility] DATE CREATED AUTHOR AUTHOR'S ORGANIZ ATION 01/29/2024 [facility] DATE CREATED AUTHOR AUTHOR'S ORGANIZ ATION 03/07/2024 [facility] DATE CREATED AUTHOR AUTHOR'S ORGANIZ ATION 05/17/2024 [facility] DATE CREATED AUTHOR AUTHOR'S ORGANIZ ATION 06/03/2024 [facility] dical Specialists EPIC Reason for Visit (unrecogniz ed section and content) Specialty Diagnoses / Procedures Referred By Gladis hutton Referred To Contact Diagnoses Open wound of left ankle, initial encounter OPEN WOUND LEFT ANKLE Procedures UT OFFICE/OUTPT VISIT,PROCEDURE ONLY UT OPEN TREATMENT MEDIAL MALLEOLUS FRACTURE ANKLE SPLIT THICKNESS SKIN GRAFT (3080 TABLE WITH REVERSE DIVING BOARD, SUPINE, DERMATOMES FOR GRAFT HARVESTING, WOUND VAC, CAN USE LMA FOR ANESTHESIA IF NEEDED) Fredrick Babin, DO [address] [address] [facility] [address] [place] [address] Referral ID Status Reason Start Date Expiration Date Visits Re quested Visits Authorized [id number] 1 1 Reason Comments Follow-up 2 week [...] 20 mL IV syringe 2,000 mg, IntraVENous, BALLOON SANDER TO O.R., 1 dose, On Tue11/09/22 at [...] approved by provider., PACU only lidocaine-EPINEPHrine 1 %-1:586677 injection (CANCELED) PRN, Starting on Tue11/09/22 at [...] Care Teams (unrecognized sec tion and content) Taxi Dancer Relationship Specialty Start Date End Date Christopher Velazquez MD [address] [place] [address] PCP - General 06/06/13 Team Status: Inactive Member Role Status Dates Christopher Velazquez II MD Primary Care Provider Active Honey Hines APRN Attending Provider Active Team Status: Inactive Member Role Status Dates Christopher Velazquez II Primary Care Provider Active Gordon Smith MD Admit Provider, Attending Provider A ctive Sirisha Savage , STERLING Other Provider Active Libertad Vazquez , STERLING Other Provider Active Taryn Sanders , RN Other Provider Active Marta Trevizo , RN Other Provider Active Carmenza Thomas , [place] Other Provider Active Krystyna Carrillo , STERLING Other Provider Active Kimo Cary MD Other Provider Active Issac Dimas MD Other Provider Active Adeola Dunn APRN Other Provider Active Maurilio Murrell , DO Other Provider Active Jose Jensen MD Other [...] MD Other Provider Active Mihaela Miller , MAINFRAME DEVELOPER-C Other Provider Active Gen Reich MD Other Provider Active Gamal Bone MD Other Provider Active Imelda Riddle MD Other Provider Active Matthias Pablo MD Other Provider Active Giselle Jaquez , DO Other Provider Active Jak Vázquez MD Other Provider Active David Rossi , DO Other Provider Active Nando Roe , DO Other Provider Active Gina Fung AUTOMATIC STACKER Other Provider Active Timothy Vaughan , DO Other Provider Active Jaime Trivedi MD Other Provider Active Katharine Caballero APRN Other Provider Active Debora Hunt , STERLING Other Provider Active Fany Ford LPN Other Provider Active Jenae Mcgee LPN Other Provider Active Fer Mayfield MD Other Provider Active Jackie Berry , MAINFRAME DEVELOPER-C Other Provider Active Chaz Hurd MD Other Provider Active Chirag Hatch MD Other Provider Active Team Status: Active Member Role Status Dates Christopher Velazquez II MD Primary Care Provider Active Taxi Dancer Relationship Specialty Start Date End Date Christopher Velazquez MD [address] [place] [address] PCP - General Internal Medicine 10/27/17 Taxi Dancer Relationship Specialty Start Date End Date Christopher Velazquez MD [address] [place] [address] PCP - General Internal Medicine 10/27/17 Taxi Dancer Relationship Specialty Start Date End Date Christopher Velazquez MD [address] [place] [address] PCP - Devoted 10/24/22 Christopher Velazquez MD [address] [place] [address] PCP - General Internal Medicine 03/28/23 Taxi Dancer Relationship Specialty Start Date End Date Christopher Velazquez MD [address] [place] [address] PCP - Devoted 10/24/22 Christopher Velazquez MD [address] [place] [address] PCP - General Internal Medicine 03/28/23 Taxi Dancer Relationship Specialty Start Date End Date Christopher Velazquez MD [address] [place] [address] PCP - Devoted 10/24/22 Christopher Velazquez MD [address] [facility] [address] [place] [address] PCP - General Internal Medicine 03/28/23 FOR [...] BE BASED ON THE PRIMARY CLINICAL RECORDS. [employer] [facility]. provides no warranty or guarantee of the accuracy or completeness of information in this document.
--- NOTE | 2024-06-12 07:00 | CA_ITS ---
Patient Name: INDIO FUENTES MR#: [id number] : 1955 Exam Date: 06/12/2024 Ordering Doctor: FAB INIGUEZ CNP ECHOCARDIOGRAM REPORT PROCEDURE: CA ECHO DOPPLER COMPLETE INDICATIONS: Heart failure with reduced ejection fraction, DC - stent COMPARISON: None. DESCRIPTION: COMPLETE ECHOCARDIOGRAM Real-time transthoracic echocardiography with 2D, M-mode, spectral and color flow Doppler performed. QUALITY: Technical quality was good. LEFT VENTRICLE: Normal chamber size. Normal left ventricular wall thickness. LV EF: Global left ventricular systolic function is lower normal limits; visually estimated ejection fraction is 50 to 55%. Calculated left ventricular ejection fraction is 51%. DIASTOLIC: Grade II diastolic dysfunction. ATRIAL SEPTUM: Inadequately seen. LEFT ATRIUM: Severe dilatation. RIGHT ATRIUM: Mild dilatation. RIGHT VENTRICLE: Normal chamber size. Normal systolic function. TRICUSPID VALVE: Normal mobility and thickness. No stenosis with trivial regurgitation. Doppler studies reveal mildly (35-45) elevated right sided pressures. RVSP 35 mmHg MITRAL VALVE: Normal mobility and thickness. No evidence of mitral valve stenosis. There is no mitral annular calcification. Trivial mitral regurgitation. AORTIC VALVE: Normal trileaflet appearance. Mildly calcified aortic valve. Normal leaflet mobility. No evidence of aortic valve stenosis. No aortic regurgitation. AORTIC ROOT: Normal diameter and appearance. PULMONIC VALVE: Not well visualized. PERICARDIUM: No evidence of pericardial effusion. IVC: IVC is dilated (2.4 cm) with no collapse. CONCLUSION: 1. Global left ventricular systolic function is low normal limits; visually estimated ejection fraction is 50 to 55% 2. The right ventricle is normal in size and systolic function 3. Grade 2 diastolic dysfunction 4. Biatrial enlargement 5. Mildly elevated right ventricular systolic pressure; RVSP 35 mmHg 6. No significant valvular abnormalities Adult Echocardiography Procedure Report Left Ventricle LVEDD (3.7 - 5.6 cm): 4.66 cm LVESD (2.2 - 4.0 cm): 3.35 cm LVIVS thickness (0.6 - 1.2 cm): 0.99 cm LVPW thickness (0.5 - 1.0 cm): 0.95 cm e': 0.08 m/s E - e': 9.68 LVOT Max Gradient: 3.67 mm[Hg] LVOT Area (cm2): 0.96 m/s Peak Velocity (LVOT): 0.96 m/s Mean Velocity (LVOT): 0.61 m/s LVOT Diameter 2.33 cm Left Atrium LA Volume Index (2D A2C): 50.58 ml/m2 Left Atrium Systolic Dimension: 3.34 cm Mitral Valve MV E to A Ratio: 1.28 Mitral Valve A-Wave Peak Velocity: 0.64 m/s Mitral Valve E-Wave Peak Velocity: 0.82 m/s Right Ventricle Aorta AO Root Diam: 3.50 cm Ascending Ao Diam: 2.81 cm Aortic Valve AoV Area (Peak Asaf): 2.64 cm2, 2.64 cm2 AoV Area (VTI): 2.61 cm2, 2.61 cm2 Peak Velocity(Antegrade Flow): 1.55 m/s Peak Gradient(Antegrade Flow): 9.56 mm[Hg] Mean Velocity(Antegrade Flow): 1.03 m/s Mean Gradient(Antegrade Flow): 4.90 mm[Hg] Velocity Time Integral: 40.37 cm Tricuspid Valve Peak Velocity (Regurgitant Flow): 2.25 m/s Pulmonic Valve Peak Velocity: 0.75 m/s Peak Gradient: 2.26 mm[Hg] Right Atrium Right Atrium Systolic Pressure: 73.76 ml, 73.76 ml Dictated by: Gama Duncan M.D. on 06/12/2024 at 10:30 Approved by: Gama Duncan M.D. on 06/12/2024 at 10:37
== END 2024-06-12 06:17 | disposition home or self-care (01) ==
PROVIDERS: PCP Internal Medicine; Visit Provider Nurse Practitioner Family
DX: I50.22 Chronic systolic (congestive) heart failure (principal)
CPT/HCPCS: 93306; 93356

== ENCOUNTER 2024-08-15 08:33 | Outpatient (OUT) | payer OTHER, SELFPAY ==
--- NOTE | 2024-08-14 15:39 | VEINCLINIC_ITS ---
Vital Signs 08/15/24 09:06 Height 5 ft 9 in Weight 79.379 kg BMI 25.8 BP 136/80 BP Location Left Brachial BP Position Sitting BP Cuff Size Adult BP Source Manual Cuff Respiration 18 Pulse 64 Pulse Source Monitor Pulse Oximetry (%) 100 Oxygen Delivery Method Room Air Comment The patient's blood pressure is elevated. Varicose Veins Patient in this day for comprehensive consult for bilateral painful varicose veins. Patient has had chronic edema for about 7 years. He is currently on Lasix and states it has helped with edema. Pain has been worsening for the past year. He has worn stockings for the past 5 years with minimal relief. Patient is active and works 3 jobs. Alex Alvarado MD personally performed the services described in this documentation, as scribed by Mirna Richmond RN in my presence and it is both accurate and complete. Mirna Alvarado RN, am scribing for, and in the presence of, Dr. Alex Villegas and in the presence of the patient. thigh: bilateral, knee: bilateral, calf: bilateral, ankle: bilateral and vasques: bilateral aching, cramping and sharp 10 7 years Worsened in recent months: Yes standing and sitting analgesics, elevating extremities and compression stockings Reports heaviness, limb pain, edema, leg edema and other History of lower extremity trauma: Yes Superficial thrombophlebitis: Yes Family history of varicose veins: yes Has patient had previous lower extremity venous surgery: No Patient has previously received the following treatment(s) for lower extremity varicose veins: Reports none Does patient have a history of : not applicable Does patient intend to have future pregnancies: not applicable Has patient had lower extremity venous scan with relux testing: Yes Support hose used: Yes Problems walking or doing physical activity: Yes How does it affect you: Hurts the worst at night and in the morning Do you walk much: Yes Do you stand much: Yes Review of Systems ROS Narrative Alex Alvarado MD personally performed the services described in this documentation, as scribed by Mirna Richmond RN in my presence and it is both accurate and complete. Mirna Alvarado RN, am scribing for, and in the presence of, Dr. Alex Villegas and in the presence of the patient. Status of ROS 10 or more systems reviewed and unremark able except as noted in history and below Cardiovascular Reports: edema and swelling of feet/ankles Musculoskeletal Reports: extremity pain, extremity swelling, joint pain, joint swelling and muscle cramps Integumentary/Breast Reports: skin pain, skin tenderness, skin swelling and sores [facility] Medical History (Updated 08/15/24 @ 10:18 by Mirna Richmond, RN) Cellulitis ?L03.90 - Cellulitis, unspecified (ICD-10) FH: cholecystectomy ?Z83.79 - Family history of other diseases of the digestive system (ICD-10) Heart failure ?I50.9 - Heart failure, unspecified (ICD-10) Hypertension ?I10 - Essential (primary) hypertension (ICD-10) Diverticula of intestine ?K57.30 - Diverticulosis of large intestine without perforation or abscess without bleeding (ICD-10) Diabetes ?E11.9 - Type 2 diabetes mellitus without complications (ICD-10) CAD (coronary artery disease) ?I25.10 - Atherosclerotic heart disease of [place] coronary artery without angina pectoris (ICD-10) Atrial fibrillation ?I48.91 - Unspecified atrial fibrillation (ICD-10) Chronic GERD ?K21.9 - Gastro-esophageal reflux disease without esophagitis (ICD-10) Back pain ?M54.9 - Dorsalgia, unspecified (ICD-10) Irregular heart beat ?I49.9 - Cardiac arrhythmia, unspecified (ICD-10) Pain due to varicose veins of both lower extremities ?I83.813 - Varicose veins of bilateral lower extremities with pain (ICD-10) Deep vein blood clot of right lower extremity ?I82.401 - Acute embolism and thrombosis of unspecified deep veins of right lower extremity (ICD-10) Deep vein blood clot of left lower extremity ?I82.402 - Acute embolism and thrombosis of unspecified deep veins of left lower extremity (ICD-10) Surgical History (Updated 08/15/24 @ 10:18 by Mirna Richmond RN) History of tonsillectomy ?Z90.89 - Acquired absence of other organs (ICD-10) H/O heart artery stent ?Z95.5 - Presence of coronary angioplasty implant and graft (ICD-10) History of knee replacement procedure of right knee ?Z96.651 - Presence of right artificial knee joint (ICD-10) Gastric bypass status for obesity ?Z98.84 - Bariatric surgery status (ICD-10) Family History (Updated 08/15/24 @ 09:24 by Mirna Richmond RN) Father Family history of stroke Family history of myocardial infarction Family history of hypertension Father Family history of diabetes mellitus Mother Family history of diabetes mellitus Varicose veins of bilateral lower extremities with pain Brother Family history of cancer Sister Family history of cancer Social History (Updated 08/15/24 @ 09:25 by Mirna Richmond RN) Within the past year, how many standard drinks containing alcohol did you have on a typical day: 1 or 2 Within the past year, how often did you have six or more drinks on one occasion: never Total score: 0 Score interpretation: A score less than 4 is consistent with normal alcohol consumption. Smoking status: Former smoker Nicotine containing products detail: quit 15 years ago. Smoked 1 PPD for 35 years. Non-prescribed substance use: denies use Meds Home Medications and Allergies Home Medications ?Medication ?Instructions ?Recorded ?Confirmed ?Type amiodarone 100 mg tablet 100 mg PO DAILY 08/15/24 08/15/24 History apixaban 5 mg tablet (Eliquis) 5 mg PO BID 08/15/24 08/15/24 History atorvastatin 10 mg tablet 10 mg PO DAILY 08/15/24 08/15/24 History diosmin complex no.1 630 mg tablet 1 tab PO DAILY 08/15/24 08/15/24 History (Vasculera) fluoxetine 20 mg capsule 20 mg PO DAILY 08/15/24 08/15/24 History furosemide 40 mg tablet (Lasix) 40 mg PO DAILY 08/15/24 08/15/24 History gabapentin 300 mg capsule 900 mg PO BID 08/15/24 08/15/24 History metoprolol succinate 25 mg 25 mg PO DAILY 08/15/24 08/15/24 History tablet,extended release 24 hr omeprazole 40 mg capsule,delayed 40 mg PO DAILY 08/15/24 08/15/24 History release potassium chloride 20 mEq oral 20 meq PO DAILY 08/15/24 08/15/24 History packet (Klor-Con) sacubitril 24 mg-valsartan 26 mg 1 tab PO BID 08/15/24 08/15/24 History tablet (Entresto) tizanidine 4 mg capsule (Zanaflex) 4 mg PO TID PRN muscle spasticity 08/15/24 08/15/24 History zolpidem 10 mg tablet (Ambien) 08/15/24 History Allergies Allergy/AdvReac Type Severity Reaction Status Date / Time doxycycline Allergy Unknown Verified 08/15/24 10:16 Penicillins AdvReac Severe Vomiting Verified 08/15/24 09:26 morphine AdvReac Mild Gastrointestinal Verified 08/15/24 10:16 Upset Exam Narrative Exam Narrative: Alex Alvarado MD personally performed the services described in this documentation, as scribed by Mirna Richmond RN in my presence and it is both accurate and complete. Mirna Alvarado RN, am scribing for, and in the presence of, Dr. Alex Villegas and in the presence of the patient. Constitutional Documenting provider has reviewed patient's vital signs: yes Common normals: oriented x3 Nutritional appearance: overweight Lymph Lymphatic: no lymphedema noted Cardio Peripheral pulses: posterior tibial pulses present and dorsalis pedis pulses present Extremity General: calf tenderness, edema and other findings Right lower extremity: lower leg Right lower leg: inspection and palpation Left lower extremity: lower leg Left lower leg: inspection and palpation Other: Heeled right proximal anterior lower leg wound. Left heeled mid-medial lower leg wound. Neuro Common normals: oriented x3 Assessment and Plan Assessment and Plan (1) Pain due to varicose veins of both lower extremities: Plan Explained vein anatomy and physiology to patient. Explained the development of varicose veins to patient.? Explained varicose vein treatments to patient, including laser ablation, microfoam chemical ablation (Varithena), injection sclerotherapy and microphlebectomy.? Explained potential risks and benefits of varicose vein treatments.? Patient verbalizes understanding and wants to pursue varicose vein treatment.? Dr. Villegas examines patient and reviews results of bilateral leg reflux u/s.? Patient and Dr. Villegas creates a plan of care.? Patient also agrees to purchase bilateral thigh high compression stockings and wear them as educated.? Patient also educated on exercise and rest elevation of bilateral legs. Plan is multiple treatments of EVLT and Varithena to BLE. Prior authrorization required. Will call patient to schedule. CTA ordered and patient is aware hospital will call him to schedule at any time. Alex Alvarado MD personally performed the services described in this docum entation, as scribed by Mirna Richmond RN in my presence and it is both accurate and complete. I, Mirna Richmond RN, am scribing for, and in the presence of, Dr. Alex Villegas and in the presence of the patient.
--- NOTE | 2024-08-14 15:40 | W.VEIN ---
Discharge Plan Discharge Disposition: Home, Self-Care Outpatient Diagnostics: CT angio abd aorta runoff (Routine) Timeframe: 2 Months Facility: [facility] - Location: Patient Own Location Ordered By: Alex Villegas VC Endovenous Ablation 1VeinLT (Routine) Timeframe: 2 Months Facility: [facility] - Location: [facility] Ordered By: Delon Kirk Follow Up Appointments: will call patient to schedule Plan of Treatment: prior authorization required. Will call patient to schedule. Hospital will call patient to schedule CTA at anytime. Patient Instructions: Endovenous Ablation (GEN) Print Language: Belarusian Discharge Date/Time: 08/15/24 10:35
--- NOTE | 2024-08-15 08:39 | VEIN_ITS ---
Patient Name: INDIO FUENTES MR#: [id number] : 1955 Exam Date: 08/15/2024 Ordering Doctor: DR INDIO MCKNIGHT M.D. RADIOLOGY REPORT PROCEDURE: VC EXT VENOUS REFLUX ARABELLA LMTD COMPARISON: None. INDICATIONS: Pain due to varicose veins of bilateral legs I83.813 TECHNIQUE: Duplex imaging of the lower extremity to assess the deep and superficial venous system for the presence of deep or superficial venous incompetence and to document the location and severity of disease. The study includes evaluation of the great saphenous vein (GSV), anterior accessory saphenous vein (AASV) and small saphenous vein (SSV). Patient scanned in reverse Trendelenburg and standing. FINDINGS: RIGHT LOWER EXTREMITY: Saphenofemoral Junction Reflux: Yes 9.5mm 1.4 sec GSV: Diam (mm) Reflux/ Time (sec) Proximal Thigh 7.7 Yes 2.0 Mid Thigh 9.5 Yes 3.7 Distal Thigh 13.2 Yes 4.6 Prox Calf 8.6 Yes 1.2 Mid Calf 7.9 Yes 2.2 Saphenopopliteal Junction Reflux: 5.9mm Yes 0.6 SSV: Proximal Calf 5.5 Yes 0.8 Mid Calf 4.3 Yes 0.5 AASV: Proximal Thigh 9.7 Yes 2.5 Mid Thigh 4.4 Yes 1.2 Distal Thigh Thrombi: Chronic partial thrombus in distal popliteal vein. Compressibility: Partial compression of distal popliteal vein. Flow: Severe deep venous reflux. Preforator: Mid medial lower leg measures 8.0 mm with 1.7s reflux. Tech Note: Calcified plaque noted in arteries throughout the leg. There is a 63% reduction in right GRUBBER. Incompetent varicose vein mid medial lower leg measures 5.9 mm with 0.9s reflux. Varicose vein distal medial thigh measures 5.2 mm with 3.3s reflux. Varicose vein proximal posterior calf measures 4.6 mm with 1.0s reflux. Varicose vein mid posterior calf off SSV measures 4.7 mm with 1.9s reflux. LEFT LOWER EXTREMITY: Saphenofemoral Junction Reflux: Yes 11.1 mm 1.6 sec GSV: Diam (mm) Reflux/Time (sec) Proximal Thigh 11.2 Yes 1.3 Mid Thigh 3.5 Yes 3.3 Distal Thigh 8.0 Yes 1.1 Prox Calf 6.7 Yes 2.4 Mid Calf 10.4 Yes 0.4 Saphenopopliteal Junction Relux: 3.8 mm Yes 0.3 SSV: Proximal Calf 3.8 Yes 0.4 Mid Calf 5.8 Yes 1.6 AASV: Proximal Thigh 4.9 Yes 0.6 Mid Thigh 4.4 Yes 1.0 Distal Thigh Thrombi: Chronic partial thrombus of popliteal vein and mid GSV in thigh. Compressibility: Partial compression of popliteal vein. Flow: Severe deep venous reflux. Supervisor Heat Treating: Distal medial lower leg near wound 8.3 mm with 1.0s reflux. Mid posterior calf 4.5 mm with 2.2s reflux. Mid lateral lower leg 3.4 mm with 1.0s reflux. Tech Note: Discontinuous mid GSV in thigh. Incompetent varicose vein proximal medial calf measures 5.4 mm with 2.9s reflux. Varicose vein mid medial calf measures 4.7 mm with 0.5s reflux. CONCLUSION: 1. Abnormally dilated and markedly incompetent bilateral great saphenous veins. 2. Abnormally dilated and incompetent bilateral small saphenous veins. 3. Abnormally dilated and markedly incompetent right anterior accessory saphenous vein. 4. Markedly dilated incompetent branch saphenous varicosities bilaterally. 5. Abnormally dilated incompetent branch saphenous varicosities bilaterally. Dictated by: Alex Villegas M.D. on 08/15/2024 at 10:21 Approved by: Alex Villegas M.D. on 08/15/2024 at 13:38
--- NOTE | 2024-08-15 08:39 | VEIN_ITS ---
Patient Name: INDIO FUENTES MR#: [id number] : 1955 Exam Date: 08/15/2024 Ordering Doctor: DR INDIO MCKNIGHT M.D. RADIOLOGY REPORT PROCEDURE: FACILITY [facility] - OFFICE VISIT INITIAL COMPARISON: None. PROGRESS NOTES: [age] year old male who presents with a 7 year history of lower extremity swelling, heaviness, and pain. The patient's leg symptoms are symmetric bilaterally. There has been a progression of symptoms over past 5 years. This increases with prolonged like dependency. The patient describes an improvement with rest, elevation, support stockings, analgesics. The patient denies any signs and symptoms to suggest arterial ischemia. The patient describes a family history diabetes, cancer, and cardiac issues. The patient has drinking and smoking history of: daily alcohol consumption. Quit smoking 15 years ago. 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 The patient has a history of deep venous thrombus. See separate history and physical for medication list. No prior treatment for varicose or spider veins. Current use of compression stockings. After review of nurse notes, history and physical exam I discussed at length the pathophysiology of venous hypertension and possible treatments, therapies and strategies available. We discussed at length the importance of elevating the lower extremities above the level of the heart, increased physical activity and compression stocking use. Ultrasound venous reflux study performed today was discussed at length with the patient. The report demonstrates markedly dilated incompetent bilateral great saphenous veins, bilateral small saphenous veins, and right anterior accessory saphenous vein. Abnormally dilated and incompetent calf veneer stock layer veins bilaterally within region of healing wound and recently healed wounds. PHYSICAL EXAM: The right leg demonstrates several varicosities, multiple spider veins, several healed ulceration, moderate to marked edema, moderate skin discoloration. The left leg demonstrates several varicosities, multiple spider veins, healing ulceration, moderate to marked edema, moderate skin discoloration. Both thighs, legs and feet were symmetrically warm to the touch. Good posterior tibial and dorsalis pedis pulses were present bilaterally. VEIN/ Facility EST Comprehensive IMPRESSION: 1. Bilateral lower extremity venous insufficiency 2. Bilateral lower extremity varicose veins 3. Bilateral lower extremity subcutaneous edema 4. Atherosclerotic disease noted within bilateral lower extremity arteries during ultrasound evaluation. 5. CEAP: C6, AP, AP, MA PLAN: 1. Continued use of compression stockings 2. Elevated legs and increased physical activity symptomatic relief 3. CT angiography of bilateral lower extremities to evaluate extent of atherosclerotic disease. 4. Endovenous laser ablation of right great saphenous, left great saphenous, right small saphenous, left small saphenous, and right anterior accessory saphenous veins. Endovenous laser ablation of bilateral distal lower extremity veneer stock layer veins in regions of patient's healing and healed wounds/ulcerations. 5. Bilateral lower extremity microfoam chemical ablation of incompetent branch saphenous varicosities. Nurse notes, history and physical were reviewed and confirmed, see attached forms. The nurse was present throughout the physical exam and consultation Dictated by: Alex Villegas M.D. on 08/15/2024 at 13:39 Approved by: Alex Villegas M.D. on 08/15/2024 at 13:50
[2024-08-15 09:06] VITALS: BP 136/80; PULSE 64; O2SAT 100; BMI 25.8
== END 2024-08-15 10:35 | disposition home or self-care (01) ==
LOC: VC 08:33
PROVIDERS: PCP Internal Medicine; Visit Provider Radiology Diagnostic Radiology
DX: I83.813 Varicose veins of bilateral lower extremities with pain (principal)
CPT/HCPCS: 93970; G0463

== ENCOUNTER 2024-08-22 08:06 | Outpatient (OUT) | payer OTHER, SELFPAY ==
--- OUTSIDE RECORDS SUMMARY | 2024-08-22 08:12 | XMS_ITS | CCD ---
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 anticoagulants; Translations: [PENITENTIARY CURRNT USE ANTICOAGULANTS] Onset: 09-03-2021 Episodic Other aftercare (1 source) 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; Translations: [OTH PENITENTIARY CURRENT DRUG THERAPY] Onset: 09-03-2021 Episodic Other circulatory disease (10 sources) Peripheral pulse absent; Translations: [Other specified symptoms and signs involving the circulatory and respiratory systems] Onset: 09-08-2022 09-08-2022 Episodic Other connective tissue disease (1 source) Pain in left lower leg; Translations: [PAIN IN LEFT LOWER LEG] Onset: 09-03-2021 Episodic Other connective tissue disease (9 sources) Muscle weakness; Translations: [Muscle weakness (generalized)] Onset: 06-17-2020 04-17-2023 Episodic Other connective tissue disease (9 sources) Plantar fascial fibromatosis; Translations: [Plantar fascial fibromatosis] Onset: 03-11-2017 04-17-2023 Episodic Other diseases of veins and lymphatics (18 sources) Venous insufficiency of leg; Translations: [Other specified disorders of veins] Onset: 11-04-2017 07-13-2018 Episodic Other diseases of veins and lymphatics (2 sources) Venous insufficiency (chronic) (peripheral); Translations: [Venous insufficiency (chronic) (peripheral)] Onset: 11-04-2017 Episodic Other diseases of veins and lymphatics (9 sources) Venous stasis; Translations: [Other specified disorders of veins] Onset: 05-13-2018 04-17-2023 Episodic Other diseases of veins and lymphatics (9 sources) Peripheral venous insufficiency; Translations: [Venous insufficiency (chronic) (peripheral)] Onset: 11-11-2017 04-17-2023 Episodic Other diseases of veins and lymphatics (9 sources) Venous varices; Translations: [Varicose veins of other specified sites] Onset: 12-13-2017 04-17-2023 Episodic Other fractures (2 sources) Flail chest, initial encounter for closed fracture; Translations: [Flail chest, initial encounter for closed fracture] Onset: 09-05-2022 Episodic Other fractures (10 sources) Closed flail chest; Translations: [Flail chest, initial encounter for closed fracture] Onset: 09-05-2022 09-05-2022 Episodic Other gastrointestinal disorders (1 source) Bariatric surgery status; Translations: [BARIATRIC SURGERY STATUS] Onset: 09-03-2021 Episodic Other gastrointestinal disorders (9 sources) Dysphagia; Translations: [Dysphagia, unspecified] Onset: 09-17-2019 04-17-2023 Episodic Other gastrointestinal disorders (9 sources) History of bariatric surgical procedure; Translations: [Bariatric surgery status] Onset: 09-10-2021 04-17-2023 Episodic Other injuries and conditions due to external causes (10 sources) Fracture of bone; Translations: [Other injury of unspecified body region, initial encounter] Onset: 10-19-2022 10-19-2022 Episodic Other lower respiratory disease (2 sources) Other forms of dyspnea; Translations: [Other forms of dyspnea] Onset: 02-14-2024 Episodic Other skin disorders (9 sources) Multiple skin tags; Translations: [Other hypertrophic disorders of the skin] Onset: 10-07-2015 04-17-2023 Episodic Other upper respiratory disease (9 sources) Feeling of lump in throat; Translations: [Globus sensation] Onset: 01-31-2018 04-17-2023 Episodic Phlebitis; thrombophlebitis and thromboembolism (20 sources) H/O: Deep vein thrombosis; Translations: [Personal history of other venous thrombosis and embolism] Onset: 04-09-2013 09-08-2022 Episodic Residual codes; unclassified (10 sources) Insomnia; Translations: [Insomnia, unspecified] Onset: 12-06-2017 09-29-2022 Episodic Residual codes; unclassified (9 sources) Amnesia; Translations: [Other amnesia] Onset: 04-17-2023 04-17-2023 Episodic Residual codes; unclassified (9 sources) Bilateral lower limb edema; Translations: [Localized edema] Onset: 11-11-2017 04-17-2023 Episodic Residual codes; unclassified (9 sources) Edema; Translations: [Edema, unspecified] Onset: 06-18-2013 04-17-2023 Episodic Residual codes; unclassified (9 sources) Impaired exercise tolerance; Translations: [Other general symptoms and signs] Onset: 04-17-2023 04-17-2023 Episodic Residual codes; unclassified (1 source) Pain, unspecified; Translations: [Pain, unspecified] Onset: 03-02-2024 Episodic Screening and history of mental health and substance abuse codes (10 sources) Personal history of nicotine dependence; Translations: [Ex-smoker] Onset: 01-31-2018 04-17-2023 Episodic Skin and subcutaneous tissue infections (1 source) Abscess; Translations: [Cellulitis, unspecified] Onset: 06-08-2013 Episodic Spondylosis; intervertebral disc disorders; other back problems (9 sources) Low back pain; Translations: [Lumbago] Onset: 11-11-2017 04-17-2023 Episodic Unclassified (1 source) CONTACT W/AND (SUSP) EXPOS COVID-19; Translations: [CONTACT W/AND (SUSP) EXPOS COVID-19] Onset: 10-22-2021 Varicose veins of lower extremity (20 sources) Varicose veins of left lower extremity with ulcer of unspecified site; Translations: [Venous stasis ulcer of leg] Onset: 06-18-2013 12-14-2018 Episodic Viral infection (9 sources) Verruca plantaris; Translations: [Plantar wart] Onset: 04-17-2023 04-17-2023 Episodic Results Test Name Value Interpretation Reference Range Facility 36on 06-29-2024 36 Okay for shoulder enriquez rgery from a cardiology. He is low to intermediate risk for cardiovascular complication. May hold Eliquis 2 days prior and resume as soon as okay with surgeon. Fab Cortez APRN-YAYO UTP Cardiovascular Medicine [facility] 36 Okay for shoulder enriquez rgery from a cardiology. He is low to intermediate risk for cardiovascular complication. May hold Eliquis 2 days prior and resume as soon as okay with surgeon. [facility] MR SHOULDER LEFT WO IV CONTR Refugio 06-13-2024 MR SHOULDER LEFT WO IV CONTRAST EXAM: MR SHOULDER LEFT WO IV CONTRAST HISTORY: Shoulder pain and limited range of motion TECHNIQUE: Multiplanar multisequence MRI of the shoulder was performed Without contrast. COMPARISON: Shoulder radiographs May 31, 2023. FINDINGS: The examination is degraded by motion artifact. Moderate degenerative changes of the acromioclavicular joint with small undersurface osteophyte formation. The acromion is slightly curved. Coracoclavicular ligament intact. Moderate amount of subacromial/subdeltoid bursal fluid. Full-thickness tear of distal supraspinatus tendon at the footprint with retraction of torn fibers up to approximately 6 cm from the footprint. Full-thickness tear of the distal anterior half of infraspinatus tendon at the footprint with retraction of torn fibers also up to approximately 6 cm. Full-thickness tear of the distal inferior half of subscapularis tendon with retraction of torn fibers approximately 2.5 cm. Teres minor tendon is intact. Moderate atrophy and fatty infiltration of infraspinatus and subscapularis muscles. Mild atrophy and fatty infiltration of supraspinatus muscle. High riding humeral head results in abutment of the superior humeral head with acromion and associated bone marrow edema of the superior humeral head and acromion. Full-thickness tear of the intra-articular long head biceps tendon. Diffuse labral degeneration/tearing. There appears to be full-thickness cartilage loss of the humeral head. High-grade partial-thickness cartilage loss of the posterior half of the glenoid. Large glenohumeral joint effusion . IMPRESSION: Tears of supraspinatus, infraspinatus, and subscapularis tendons with atrophy and fatty infiltration of these muscles. Full-thickness tear of the long head biceps tendon. Moderate glenohumeral osteoarthritis. ELECTRONICALLY SIGNED BY: Dariusz Mchugh, DO Normal Not Available Comment on above: Order Comment: MRI L T shoulder w/o. To be done at [facility] 37on 06-06-2024 37 *Okay to stop Eliqui s 2 days prior to cataract surgery *[facility] will call you to schedule a heart ultrasound in July. Normal [facility] Office Visiton 06-06-2024 Follow-up visit [id number] Jonathan Collado 1955 M Date Provider Department Center 06/06/2024 Elliott-FAB CORTEZ [facility] Family History Problem Relation Age of Onset Coronary artery disease Mother Coronary artery disease Father Family Status - Relation Status Age at Mother Father Level of Service:90731 [place] OFFICE/OUTPATIENT ESTABLISHED MOD MDM 30 MIN Reason for Visit and Comments: Atrial Fibrillation [80] Congestive Heart Failure [127] Normal [facility] XR LUMBAR SPINE 2-3 VIEWSon 05-18-2024 XR [...] Bring in to your next appt. Normal [facility] Office Visiton 05-09-2024 Follow-up visit [id number] Jonathan Collado 1955 M Date Provider Department Center 05/09/2024 FAB PATTERSON [facility] Family History Problem Relation Age of Onset Coronary artery disease Mother Coronary artery disease Father Family Status - Relation Status Age at Mother Father Level of Service:99532 [place] OFFICE/OUTPATIENT ESTABLISHED MOD MDM 30 MIN Reason for Visit and Comments: Follow-up [190844] - Follow up cardioversion Normal [facility] HPon 04-30-2024 [facility] Electrophysiology Consult Note [place] Cardiology [facility] Reason for visit: atrial fibrillation HPI: [...] on file Intimate Partner Violence: Unknown (12/15/2023) [place] Safety & Environment Fear of Current or [...] Insight: good judgement (more content not included)... [facility] NURSNOTEon 04-30-2024 NURSNOTE RN educated pt on d/ c instructions. RN encouraged pt to voice any questions or concerns. Pt verbalizes no questions or concerns at this time. Pt was wheeled off of unit with all of belongings. [facility] Office Visiton 04-10-2024 Follow-up visit [id number] Jonathan Collado 1955 M Date Provider Department Center 04/10/2024 DAVE RODRIGUEZ NATA [facility] Family History Problem Relation Age of Onset Coronary artery disease Mother Coronary artery disease Father Family Status - Relation Status Age at Mother Father Level of Service:88952 [place] OFFICE/OUTPATIENT NEW MODERATE MDM 45 MINUTES Normal [facility] ANESon 03-29-2024 ANES ----- ----- Attestation signed by Gama Duncan MD at 03/29/2024 8:24 AM Gama Duncan MD, MPH, [facility], [facility], [facility] Interventional Cardiology Pager Email: [email or web address] ----- Patient: Indio Collado Procedure Information Date/Time: 03/29/24 1230 Procedure: Coronary angiography Location: [facility] [address] / [facility] [...] discussed with attending. Additional Equipment Requests Normal [facility] HPon 03-29-2024 HP ----- ----- Attestation signed [...] documentation from me. Gama Duncan MD, MPH, [facility], [facility], [facility] Interventional Cardiology Pager Email: [email or web address] u ----- H&P reviewed. The patient was [...] episodes recently. He would like to proceed. [facility] Rigo 03-29-2024 NURSNOTE RN educated pt on d/ c instructions. RN encouraged pt to voice any questions or concerns. Pt verbalizes no questions or concerns at this time. Pt was wheeled off of unit with all of belongings. [facility] 37on 03-08-2024 37 *Stop diltiazem *Start -metoprolol succinate 25mg daily -Entresto 24/26mg BID -Farxiga 10mg daily *Reduce lasix to 40mg daily *Follow-up lab work in 2 weeks *[facility] will call you to schedule a cardiac cath *Follow-up with the automotive electrician of the heart after your cath [facility] HPon 03-08-2024 Cardiovascular Medic [facility] SUBJECTIVE Chief Complaint Patient presents with [...] work at 3 jobs. He works at [employer] and eats their food when he drinks. [...] working 3 jobs. He started working a [employer] last month, this is when he noticed the weight gain. He admits to eating food at [employer] and drinking more pop that he typically [...] Smokeless tobacco (more content not included)... Normal [facility] Office Visiton 03-08-2024 Follow-up visit [id number] Jonathan Collado 1955 M Date Provider Department Center 03/08/2024 FAB PATTERSON Family History Problem Relation Age of Onset Coronary artery disease Mother Coronary artery disease Father Family Status - Relation Status Age at Mother Father Level of Service:04184 [place] OFFICE/OUTPATIENT ESTABLISHED HIGH MDM 40 MIN Reason for Visit and Comments: Atrial Fibrillation [80] Congestive Heart Failure [127] Hypertension [086936] [facility] Mony 02-29-2024 ANES ----- ----- Attestation signed by Ellen Taveras MD at 03/15/2024 12:59 PM I personally saw and examined the patient on the same date of service as resident/fellow Dr Bai. I agree with the documentation, except for any edits/updates below. Ellen Taveras MD ----- Patient: Indio Collado Procedure Information Date/Time: 02/29/24 1030 Procedure: Cardioversion Location: [facility] / [facility] (Cath) Providers: Scar Willis MD Clinical information reviewed: Allergies Physical Exam Airway Mallampati: III TM distance: >3 FB Neck ROM: full Cardiovascular Rhythm: regular Rate: normal Dental Pulmonary Abdominal Anesthesia Plan ASA 3 Anesthetic plan and risks discussed with patient. Use of blood products discussed with patient who. Plan discussed with attending. Additional Equipment Requests [facility] NURSNOTEon 02-29-2024 NURSNOTE Bedside swallow stud y completed and passed. [facility] NURSNOTE RN educated pt on d/ c instructions. RN encouraged pt to voice any questions or concerns. Pt verbalizes no questions or concerns at this time. Pt was wheeled off of unit with all of belongings. [facility] POTASSIUMon 02-29-2024 Potassium [Moles/Vol] 3.7 mmol/L Normal 3.5-5.1 [facility] Comment on above: Performed By: #### L [id number] ####[facility] ([facility])[address] [place] [address] 36on 02-15-2024 36 Please let him know I also ordered for potassium supplements as his potassium level was low when he was recently in the hospital and the lasix can lower this even more so the supplements are to help this. Please also have him get a BMP either the day before or morning of his appt next week. Thanks! [facility] Telephoneon 02-15-2024 Telephone [id number] TobiasJonathan 1955 M Date Provider Department Center 02/15/2024 FAB PATTERSON Family History Problem Relation Age of Onset Coronary artery disease Mother Coronary artery disease Father Family Status - Relation Status Age at Mother Father [facility] 37on 02-14-2024 37 *Increase lasix to 4 0mg twice daily *Hold fludrocortisone *Increase Xarelto to 20mg daily (you can take 2 tablets of 10mg) *Limit your fluid intake to no more than 2 liters a day *Limit your sodium intake, no more than 2500mg/daily *[facility] will call you to schedule a cardioversion *[facility] will call you to schedule a stress test and ECHO Normal [facility] HPon 02-14-2024 Cardiovascular Medic [facility] SUBJECTIVE Chief Complaint Patient presents with [...] working 3 jobs. He started working a [employer] last month, this is when he noticed the weight gain. He admits to eating food at [employer] and drinking more pop that he typically does. He admits he needs to slow down with his jobs. He will likely quit [employer]. He notes that since his gastric bypass [...] Atrial fibrillation (CMS/HCC) CHF (congestive heart failure) ([facility]/HCC) Coronary artery disease Deep vein thrombosis ([facility]/HCC) Hyperlipidemia Hypertension Myocardial infarction ([facility]/HCC) Sleep apnea Family History Problem Relation Name [...] CD (Cardizem (more content not included)... Normal [facility] Office Visiton 02-14-2024 Follow-up visit [id number] Jonathan Collado id L 1955 M Date Provider Department [place] 02/14/2024 FAB PATTERSON NATA [facility] Family History Problem Relation Age of Onset Coronary artery disease Mother Coronary artery disease Father Family Status - Relation Status Age at Mother Father Level of Service:45522 [place] OFFICE/OUTPATIENT ESTABLISHED MOD MDM 30 MIN Reason for Visit and Comments: Atrial Fibrillation [80] Coronary Artery Disease [187] Normal [facility] Orders Onlyon 02-14-2024 Orders Only [id number] Jonathan Collado id L 1955 M Date Provider Department [place] 02/14/2024 MILADIS MENCHACA NATA [facility] Family History Problem Relation Age of Onset Coronary artery disease Mother Coronary artery disease Father Family Status - Relation Status Age at Mother Father Normal [facility] CBC AND AUTO DIFFon 01-28-20 24 ABSOLUTE BASOPHIL 0.1 X10E9/L Normal 0.0-0.2 [facility] Comment on above: Performed By: #### C BCA, CMP, PINR, 51695-8, 28926-0, 32519-2, 23111-5 #### [facility] ([id number]) [address] [place] [address] 01647 ABSOLUTE NEUTROPHIL 8.5 X10E9/L High 1.5-6.6 [facility] Comment on above: Performed By: #### C BCA, CMP, PINR, 24748-1, 92884-0, 38579-9, 66972-0 #### [facility] ([id number]) [address] [place] [address] 45326 Basophils/100 WBC (Bld) 0.6 % Normal P [facility] Comment on above: Performed By: #### C BCA, CMP, PINR, 87852-5, 27956-2, 84084-3, 22312-1 #### [facility] ([id number]) [address] [place] [address] 10042 Eosinophils (Bld) [#/Vol] 0.1 10*3/uL Normal 0.0-0.4 [facility] Comment on above: Performed By: #### C BCA, CMP, PINR, 16023-1, 62935-1, 46091-1, 42566-9 #### [facility] ([id number]) [address] [place] [address] 30273 Eosinophils/100 WBC (Bld) 0.5 % Normal [facility] Comment on above: Performed By: #### C BCA, CMP, PINR, 09140-5, 62598-2, 41129-8, 26995-3 #### [facility] ([id number]) [address] [place] [address] 74696 Erythrocyte distribution width (RBC) [Ratio] 16.5 % High 11.5-15.0 [facility] Comment on above: Performed By: #### C BCA, CMP, PINR, 63706-3, 06371-4, 98460-9, 80312-2 #### [facility] ([id number]) [address] [place] [address] 64016 Hematocrit (Bld) [Volume fraction] 35.7 % Low 39-49 [facility] Comment on above: Performed By: #### C BCA, CMP, PINR, 54329-1, 21644-7, 66603-5, 94165-1 #### [facility] ([id number]) [address] [place] [address] 75591 Hemoglobin (Bld) [Mass/Vol] 12.1 g/dL Low 13.0-17.0 [facility] Comment on above: Performed By: #### C BCA, CMP, PINR, 51401-6, 60350-6, 71324-7, 84276-8 #### [facility] ([id number]) [address] [place] [address] 11920 Lymphocytes (Bld) [#/Vol] 1.2 10*3/uL Normal 1.0-3.5 [facility] Comment on above: Performed By: #### C BCA, CMP, PINR, 55410-2, 76748-1, 07859-4, 45822-7 #### [facility] ([id number]) [address] [place] [address] 64724 Lymphocytes/100 WBC (Bld) 11.6 % Normal [facility] Comment on above: Performed By: #### C BCA, CMP, PINR, 89982-0, 42902-0, 61086-7, 64851-5 #### [facility] ([id number]) [address] [place] [address] 30025 MCH (RBC) [Entitic mass] 28.0 pg Normal 27-34 [facility] Comment on above: Performed By: #### C BCA, CMP, PINR, 41355-2, 01399-1, 21164-0, 26308-5 #### [facility] ([id number]) [address] [place] [address] 54088 MCHC (RBC) [Mass/Vol] 34.0 g/dL Normal 32-36 [facility] Comment on above: Performed By: #### C BCA, CMP, PINR, 47880-5, 46610-1, 79513-5, 05035-8 #### [facility] ([id number]) [address] [place] [address] 52309 MCV (RBC) [Entitic vol] 82 fL Normal 80-100 [facility] Comment on above: Performed By: #### C BCA, CMP, PINR, 74457-8, 33172-0, 46365-9, 39950-3 #### [facility] ([id number]) [address] [place] [address] 39110 Monocytes (Bld) [#/Vol] 0.5 10*3/uL Normal 0-0.9 [facility] Comment on above: Performed By: #### C BCA, CMP, PINR, 79258-3, 45769-0, 15382-3, 22237-7 #### [facility] ([id number]) [address] [place] [address] 56655 Monocytes/100 WBC (Bld) 5.1 % Normal [facility] Comment on above: Performed By: #### C BCA, CMP, PINR, 06614-9, 92356-2, 42036-6, 89416-0 #### [facility] ([id number]) [address] [place] [address] 24296 Neutrophils/100 WBC (Bld) 82.2 % Normal [facility] Comment on above: Performed By: #### C BCA, CMP, PINR, 49476-5, 06538-0, 24001-4, 12842-5 #### [facility] ([id number]) [address] [place] [address] 79919 Platelet mean volume (Bld) [Entitic vol] 8.7 fL Normal 7-12 [facility] Comment on above: Performed By: #### C BCA, CMP, PINR, 94485-6, 95227-3, 86086-1, 02178-7 #### [facility] ([id number]) [address] [place] [address] 56983 Platelets (Bld) [#/Vol] 237 10*3/uL Normal 150-450 [facility] Comment on above: Performed By: #### C BCA, CMP, PINR, 82090-5, 97313-7, 86994-0, 26096-1 #### [facility] ([id number]) [address] [place] [address] 02213 RBC COUNT 4.33 X10E12/L Normal 4.10-5.70 [facility] Comment on above: Performed By: #### C BCA, CMP, PINR, 10754-6, 93528-1, 72966-0, 81810-3 #### [facility] ([id number]) [address] [place] [address] 70810 WBC (Bld) [#/Vol] 10.4 10*3/uL Normal 4.0-11.0 [facility] Comment on above: Performed By: #### C BCA, CMP, PINR, 87864-9, 16081-3, 41596-5, 63991-5 #### [facility] ([id number]) [address] [place] [address] 05127 COMPREHENSIVE METABOLIC PANE Carl 01-28-2024 Albumin [Mass/Vol] 3.4 g/dL Normal 3.2-5.3 [facility] Comment on above: Performed By: #### C BCA, CMP, PINR, 24943-7, 13416-1, 57159-1, 35475-9 #### [facility] ([id number]) [address] [place] [address] 90737 ALP [Catalytic activity/Vol] 109 U/L Normal 39-130 [facility] Comment on above: Performed By: #### C BCA, CMP, PINR, 47885-0, 72591-6, 55346-1, 99860-5 #### [facility] ([id number]) [address] [place] [address] 14005 ALT [Catalytic activity/Vol] 24 U/L Normal 0-40 [facility] Comment on above: Performed By: #### C BCA, CMP, PINR, 05114-2, 82820-5, 00110-8, 37618-2 #### [facility] ([id number]) [address] [place] [address] 26125 Anion gap [Moles/Vol] 7 mmol/L Normal 5-15 [facility] Comment on above: Performed By: #### C BCA, CMP, PINR, 56886-7, 91104-5, 38340-8, 13437-6 #### [facility] ([id number]) [address] [place] [address] 55995 AST [Catalytic activity/Vol] 19 U/L Normal 0-41 [facility] Comment on above: Performed By: #### C BCA, CMP, PINR, 36312-9, 27837-0, 66359-4, 94707-9 #### [facility] ([id number]) [address] [place] [address] 39361 Bilirubin [Mass/Vol] 2.5 mg/dL High 0.3-1.2 [facility] Comment on above: Performed By: #### C BCA, CMP, PINR, 00967-7, 76023-7, 77059-3, 96733-8 #### [facility] ([id number]) [address] [place] [address] [address] Calcium [Mass/Vol] 7.8 mg/dL Low 8.5-10.5 [facility] Comment on above: Performed By: #### C BCA, CMP, PINR, 54072-7, 41835-0, 59945-1, 15002-5 #### [facility] ([id number]) [address] [place] [address] 27048 Chloride [Moles/Vol] 103 mmol/L Normal 98-109 [facility] Comment on above: Performed By: #### C BCA, CMP, PINR, 43874-7, 71369-3, 84021-9, 29130-2 #### [facility] ([id number]) [address] [place] [address] 99313 CO2 [Moles/Vol] 24 mmol/L Normal 22-32 [facility] Comment on above: Performed By: #### C BCA, CMP, PINR, 21285-6, 90471-2, 62228-6, 21042-2 #### [facility] ([id number]) [address] [place] [address] 56779 Creatinine [Mass/Vol] 1.09 mg/dL Normal 0.70-1.20 [facility] Comment on above: Result Comment: METH OD TRACEABLE TO IDMS STANDARD Performed By: #### C BCA, CMP, PINR, 23146-3, 67380-0, 95487-1, 47780-5 #### [facility] ([id number]) [address] [place] [address]647 GFR/1.73 sq M.predicted among non-blacks MDRD (S/P/Bld) [Vol rate/Area] 74 mL/min/{1.73_m2} Normal >59 [facility] Comment on above: Result Comment: Reported eGFR is based on the CKD-EPI 2020 equation that does not use a race coefficient. Performed By: #### C BCA, CMP, PINR, 00162-3, 10908-1, 50328-4, 47111-6 #### [facility] ([id number]) [address] [place] [address] 69076 Glucose [Mass/Vol] 131 mg/dL High 65-99 [facility] Comment on above: Performed By: #### C BCA, CMP, PINR, 97704-4, 02396-2, 74149-1, 01858-7 #### [facility] ([id number]) [address] [place] [address] 38664 Potassium [Moles/Vol] 3.2 mmol/L Low 3.5-5.0 [facility] Comment on above: Performed By: #### C BCA, CMP, PINR, 94153-9, 37144-7, 10052-9, 08827-8 #### [facility] ([id number]) [address] [place] [address] 32581 Protein [Mass/Vol] 6.3 g/dL Normal 6.0-8.0 [facility] Comment on above: Performed By: #### C BCA, CMP, PINR, 10537-1, 10485-2, 18814-5, 42005-0 #### [facility] ([id number]) [address] [place] [address] 78096 Sodium [Moles/Vol] 134 mmol/L Normal 134-146 [facility] Comment on above: Performed By: #### C BCA, CMP, PINR, 94850-5, 09881-6, 31495-7, 08542-6 #### [facility] ([id number]) [address] [place] [address] 23996 Urea nitrogen [Mass/Vol] 22 mg/dL Normal 5-27 [facility] Comment on above: Performed By: #### C BCA, CMP, PINR, 38887-5, 34175-8, 35547-0, 68517-3 #### [facility] ([id number]) [address] [place] [address] 35870 MAGNESIUMon 01-28-2024 Magnesium [Mass/Vol] 1.9 mg/dL Normal 1.8-2.6 [facility] Comment on above: Performed By: #### C BCA, CMP, PINR, 37726-8, 98444-6, 91271-0, 37591-8 #### [facility] ([id number]) [address] [place] [address] 71109 Natriuretic peptide B [Mass/ Vol]on 01-28-2024 Natriuretic peptide B (Bld) [Mass/Vol] 320 pg/mL High <100.0 [facility] Comment on above: Performed By: #### C BCA, CMP, PINR, 61675-3, 42824-5, 91093-0, 27115-5 #### [facility] ([id number]) [address] [place] [address] PROTIME AND INRon 01-28-2024 INR Coag (PPP) [Relative time] 2.0 {INR} High 0.8-1.1 [facility] Comment on above: Performed By: #### C BCA, CMP, PINR, 15615-9, 05636-4, 58888-0, 83516-2 #### [facility] ([id number]) [address] [place] [address] PT Coag (PPP) [Time] 23.2 s High 9.8-13.2 [facility] Comment on above: Result Comment: NEW REFERENCE RANGE Performed By: #### C BCA, CMP, PINR, 34529-9, 46233-8, 34523-6, 24318-1 #### [facility] ([id number]) [address] [place] [address] SARS/FLU A+B/RSV by NAAT/Mol ecularon 01-28-2024 SARS/FLU [...] operators who are performing tests using either [employer] DX or SeamBLiSS systems and is limited to laboratories that [...] repeat. Fact Sheet for Healthcare Providers: https://www.fda.gov/media /791872/download Fact Sheet for Patients: https://www.fda.gov/media /587217/download Normal [facility] Comment on above: Performed By: #### C OVFLR #### [facility] ([id number]) [address] [place] [address] 12921 TROPONIN Ion 01-28-2024 Troponin I.cardiac [Mass/Vol] 0.03 ng/mL Normal 0.00-0.04 [facility] Comment on above: Performed By: #### C BCA, CMP, PINR, 53774-9, 40093-4, 35590-5, 19635-5 #### [facility] ([id number]) [address] [place] [address] 21700 XR CHEST 1 VWon 01-28-2024 XR CHEST [...] Carbajal MD on 01/28/2024 10:34 AM Normal [facility] aPTT Coag (PPP) [Time]on aPTT Coag (Bld) [Time] 46 s High 26-37 [facility] Comment on above: Result Comment: NEW REFERENCE RANGE Performed By: #### C BCA, CMP, PINR, 34237-7, 94735-0, 75403-0, 01111-7 #### [facility] ([id number]) [address] [place] [address], [place] [address] No Panel Informationon 12-06 Eva Sanchez, 12/06/2023 9:57 AM L Inj/Asp: L glenohumeral on 12/06/2023 9:55 AM Indications: pain Details: 21 G needle, posterior approach Medications: 40 mg methylPREDNISolone acetate 40 MG/ML Procedure, treatment alternatives, risks and benefits explained, specific risks discussed. [facility] XR ANKLE LEFT (MIN 3 VIEWS)o n [...] Fredrick Babin DO 01/12/23 Final result Normal [facility] XR ANKLE LEFT (MIN 3 VIEWS)o [...] new acute fracture or osseous abnormality seen. [place] seen on medial ankle correlating with Integra application. Diffuse calcifications seen proximally, most likely related to PVD, seen in previous images as well. ? Impression: Interval healing of left ankle with maintained alignment of fracture site and intact hardware without signs of loosening. Interpreted by: DO Michael Richard DO Signed by: Michael Reinoso DO 11/10/22 Final result Normal [facility] Creatinine W/GFR Point of Ca reon 11-09-2022 Creatinine [Mass/Vol] 0.87 mg/dL 0.51 - 1.19 mg/dL [facility] eGFR, POC mL/min/1.7 3m2 [facility] Comment on above: Effective Jul 26, 2022 [...] renal tubular secretion. No Panel Informationon 11-09 [facility] OPERATIVE REPORTon 3 OPERATIVE REPORT [address] [address] OPERATIVE REPORT PATIENT NAME: INDIO COLLADO : 1955 MED REC NO: [id number] ROOM: ACCOUNT NO: [id number] ADMIT DATE: 11/09/2022 PROVIDER: Fredrick Babin DATE OF PROCEDURE: 11/09/2022 PREOPERATIVE DIAGNOSIS: Medial wound, left ankle. POSTOPERATIVE DIAGNOSIS: Medial wound, left ankle. PROCEDURE: 1. Application of split-thickness skin graft to medial ankle wound measuring 5 x 4 cm. 2. Application of negative pressure wound VAC, left ankle. SURGEON: Fredrick Babin DO ASSISTANT REFINERY OPERATOR: Liss Matute DO, PGY-2 and Olga Lidia [...] my clinic in one week. FREDRICK BABIN RUSSELL/[email or web address] Doc#: [id number] CC: Normal [facility] POCT Glucoseon 11-09-2022 Glucose [Mass/Vol] 93 mg/dL 74 - 100 mg/dL [facility] POCT urea (BUN)on 11-09-2022 Urea nitrogen [Mass/Vol] 12 mg/dL 8 - 26 mg/dL [facility] Basic Metab w/rfx MGon 10-22 Anion gap [Moles/Vol] 9 mmol/L Normal 9-17 [facility] Comment on above: Performed By: #### B MPX #### [facility] [address] [place] [address] [phone] Online Services Manager: Bret Vazquez MD Calcium [Mass/Vol] 8.1 mg/dL Low 8.6-10.4 [facility] Comment on above: Performed By: #### B MPX #### [facility] [address] [place] [address] [phone] Online Services Manager: Bret Vazquez MD Chloride [Moles/Vol] 102 mmol/L Normal 98-107 [facility] Comment on above: Performed By: #### B MPX #### [facility] [address] [place] [address] [phone] Online Services Manager: Bret Vazquez MD CO2 [Moles/Vol] 26 mmol/L Normal 20-31 [facility] Comment on above: Performed By: #### B MPX #### [address] [phone] Online Services Manager: Bret Vazquez MD Creatinine [Mass/Vol] 0.59 mg/dL Low 0.70-1.20 [facility] Comment on above: Performed By: #### B MPX #### [address] [phone] Online Services Manager: Bret Vazquez MD GFR/1.73 sq M.predicted among non-blacks MDRD (S/P/Bld) [Vol rate/Area] mL/min/{1.73_m2} Normal >60 [facility] Comment on above: Result Comment: Effective [...] secretion. Performed By: #### B MPX #### [address] [phone] Online Services Manager: Bret Vazquez MD Glucose [Mass/Vol] 93 mg/dL Normal 70-99 [facility] Comment on above: Performed By: #### B MPX #### [address] [phone] Online Services Manager: Bret Vazquez MD Potassium [Moles/Vol] 4.3 mmol/L Normal 3.7-5.3 [facility] Comment on above: Performed By: #### B MPX #### [address] [phone] Online Services Manager: Bret Vazquez MD Sodium [Moles/Vol] 137 mmol/L Normal 135-144 [facility] Comment on above: Performed By: #### B MPX #### [address] [address] Online Services Manager: Bret Vazquez MD Urea nitrogen [Mass/Vol] 9 mg/dL Normal 8-23 [facility] Comment on above: Performed By: #### B MPX #### [place] [address] Online Services Manager: Bret Vazquez MD CBC with Diffon 10-20-2022 Abs. Basophil 0.04 k/uL Normal 0.00-0.20 [facility] Comment on above: Performed By: #### E RTPF, CK, ECENZ, VD25 #### [place] [address] Online Services Manager: Bret Vazquez MD Abs.Imm.Granulocyte <0.03 Normal 0.00-0.30 [facility] Comment on above: Performed By: #### E RTPF, CK, ECENZ, VD25 #### [address] [address] Online Services Manager: Bret Vazquez MD Abs.Neutrophil (Seg) 4.45 k/uL Normal 1.50-8.10 [facility] Comment on above: Performed By: #### E RTPF, CK, ECENZ, VD25 #### [place] [address] Online Services Manager: Bret Vazquez MD Basophils/100 WBC (Bld) 1 % Normal 0-2 [facility] Comment on above: Performed By: #### E RTPF, CK, ECENZ, VD25 #### [address] [address] Online Services Manager: Bret Vazquez MD Eosinophils (Bld) [#/Vol] 0.11 10*3/uL Normal 0.00-0.44 [facility] Comment on above: Performed By: #### E RTPF, CK, ECENZ, VD25 #### [address] [address] Online Services Manager: Bret Vazquez MD Eosinophils/100 WBC (Bld) 2 % Normal 1-4 [facility] Comment on above: Performed By: #### E RTPF, CK, ECENZ, VD25 #### [address] [address] Online Services Manager: Bret Vazquez MD Erythrocyte distribution width (RBC) [Ratio] 14.5 % High 11.8-14.4 [facility] Comment on above: Performed By: #### E RTPF, CK, ECENZ, VD25 #### [address] [address] Online Services Manager: Bret Vazquez MD Hematocrit (Bld) [Volume fraction] 33.5 % Low 40.7-50.3 [facility] Comment on above: Performed By: #### E RTPF, CK, ECENZ, VD25 #### [address] [address] Online Services Manager: Bret Vazquez MD Hemoglobin (Bld) [Mass/Vol] 10.8 g/dL Low 13.0-17.0 [facility] Comment on above: Performed By: #### E RTPF, CK, ECENZ, VD25 #### [address] [address] Online Services Manager: Bret Vazquez MD Immature granulocytes/100 WBC (Bld) 0 % Normal 0 [facility] Comment on above: Performed By: #### E RTPF, CK, ECENZ, VD25 #### [address] [phone] Online Services Manager: Bret Vazquez MD Lymphocytes (Bld) [#/Vol] 1.28 10*3/uL Normal 1.10-3.70 [facility] Comment on above: Performed By: #### E RTPF, CK, ECENZ, VD25 #### [address] [address] Online Services Manager: Bret Vazquez MD Lymphocytes/100 WBC (Bld) 19 % Low 24-43 [facility] Comment on above: Performed By: #### E RTPF, CK, ECENZ, VD25 #### [place] [address] Online Services Manager: Bret Vazquez MD MCH (RBC) [Entitic mass] 29.0 pg Normal 25.2-33.5 [facility] Comment on above: Performed By: #### E RTPF, CK, ECENZ, VD25 #### [place] [address] Online Services Manager: Bret Vazquez MD MCHC (RBC) [Mass/Vol] 32.2 g/dL Normal 28.4-34.8 [facility] Comment on above: Performed By: #### E RTPF, CK, ECENZ, VD25 #### [place] [address] Online Services Manager: Bret Vazquez MD MCV (RBC) [Entitic vol] 90.1 fL Normal 82.6-102.9 [facility] Comment on above: Performed By: #### E RTPF, CK, ECENZ, VD25 #### [place] [address] Online Services Manager: Bret Vazquez MD Monocytes (Bld) [#/Vol] 0.70 10*3/uL Normal 0.10-1.20 [facility] Comment on above: Performed By: #### E RTPF, CK, ECENZ, VD25 #### [address] [address] Online Services Manager: Bret Vazquez MD Monocytes/100 WBC (Bld) 11 % Normal 3-12 [facility] Comment on above: Performed By: #### E RTPF, CK, ECENZ, VD25 #### [address] [address] Online Services Manager: Bret Vazquez MD Neutrophil (Seg) 67 % High 36-65 [facility] Comment on above: Performed By: #### E RTPF, CK, ECENZ, VD25 #### [address] [address] Online Services Manager: Bret Vazquez MD NRBC Automated 0.0 per 100 WBC Normal 0.0 [facility] Comment on above: Performed By: #### E RTPF, CK, ECENZ, VD25 #### [address] [address] Online Services Manager: Bret Vazquez MD Platelet mean volume (Bld) [Entitic vol] 10.3 fL Normal 8.1-13.5 [facility] Comment on above: Performed By: #### E RTPF, CK, ECENZ, VD25 #### [address] [address] Online Services Manager: Bret Vazquez MD Platelets (Bld) [#/Vol] 236 10*3/uL Normal 138-453 [facility] Comment on above: Performed By: #### E RTPF, CK, ECENZ, VD25 #### [address] [address] Online Services Manager: Bret Vazquez MD RBC (Bld) [#/Vol] 3.72 10*6/uL Low 4.21-5.77 [facility] Comment on above: Performed By: #### E RTPF, CK, ECENZ, VD25 #### [facility] [address] [place] [phone] Online Services Manager: Bret Vazquez MD RBC morphology finding Nom (Bld) ANISOCYTOSIS PRESENT Normal [facility] Comment on above: Performed By: #### E RTPF, CK, ECENZ, VD25 #### [facility] [address] [place] [phone] Online Services Manager: Bret Vazquez MD WBC (Bld) [#/Vol] 6.6 10*3/uL Normal 3.5-11.3 [facility] Comment on above: Performed By: #### E RTPF, CK, ECENZ, VD25 #### [address] [address] Online Services Manager: Bret Vazquez MD Comp Metabolic Pr/rfx MGon 1 12-21-2021 Albumin [Mass/Vol] 2.6 g/dL Low 3.5-5.2 [facility] Comment on above: Performed By: #### E RTPF, CK, ECENZ, VD25 #### [facility] [address] [place] [address] Online Services Manager: Bret Vazquez MD Albumin/Glob Ratio 1.2 Normal 1.0-2.5 [facility] Comment on above: Performed By: #### E RTPF, CK, ECENZ, VD25 #### [facility] [address] [place] [address] Online Services Manager: Bret Vazquez MD Alkaline Phos 104 U/L Normal 40-129 [facility] Comment on above: Performed By: #### E RTPF, CK, ECENZ, VD25 #### [facility] [address] [place] [address] Online Services Manager: Bret Vazquez MD ALT [Catalytic activity/Vol] 7 U/L Normal 5-41 [facility] Comment on above: Performed By: #### E RTPF, CK, ECENZ, VD25 #### [facility] [address] [place] [address] Online Services Manager: Bret Vazquez MD Anion gap [Moles/Vol] 7 mmol/L Low 9-17 [facility] Comment on above: Performed By: #### E RTPF, CK, ECENZ, VD25 #### [facility] [address] [place] [address] Online Services Manager: Bret Vazquez MD AST [Catalytic activity/Vol] 13 U/L Normal <40 [facility] Comment on above: Performed By: #### E RTPF, CK, ECENZ, VD25 #### [address] [address] Online Services Manager: Bret Vazquez MD Bilirubin [Mass/Vol] 0.9 mg/dL Normal 0.3-1.2 [facility] Comment on above: Performed By: #### E RTPF, CK, ECENZ, VD25 #### [facility] [address] [place] [address] Online Services Manager: Bret Vazquez MD Calcium [Mass/Vol] 8.0 mg/dL Low 8.6-10.4 [facility] Comment on above: Performed By: #### E RTPF, CK, ECENZ, VD25 #### [facility] [address] [place] [address] Online Services Manager: Bret Vazquez MD Chloride [Moles/Vol] 103 mmol/L Normal 98-107 [facility] Comment on above: Performed By: #### E RTPF, CK, ECENZ, VD25 #### [facility] [address] [place] [address] Online Services Manager: Bret Vazquez MD CO2 [Moles/Vol] 25 mmol/L Normal 20-31 [facility] Comment on above: Performed By: #### E RTPF, CK, ECENZ, VD25 #### [address] [phone] Online Services Manager: Bret Vazquez MD Creatinine [Mass/Vol] 0.67 mg/dL Low 0.70-1.20 [facility] Comment on above: Performed By: #### E RTPF, CK, ECENZ, VD25 #### [address] [address] Online Services Manager: Bret Vazquez MD GFR/1.73 sq M.predicted among non-blacks MDRD (S/P/Bld) [Vol rate/Area] mL/min/{1.73_m2} Normal >60 [facility] Comment on above: Result Comment: Effective [...] #### E RTPF, CK, ECENZ, VD25 #### [address] [address] Online Services Manager: Bret Vazquez MD Glucose [Mass/Vol] 99 mg/dL Normal 70-99 [facility] Comment on above: Performed By: #### E RTPF, CK, ECENZ, VD25 #### [address] [address] Online Services Manager: Bret Vazquez MD Potassium [Moles/Vol] 4.3 mmol/L Normal 3.7-5.3 [facility] Comment on above: Performed By: #### E RTPF, CK, ECENZ, VD25 #### [facility] [place] [address] Online Services Manager: Bret Vazquez MD Protein [Mass/Vol] 4.7 g/dL Low 6.4-8.3 [facility] Comment on above: Performed By: #### E RTPF, CK, ECENZ, VD25 #### [facility] [address] [place] [address] Online Services Manager: Bret Vazquez MD Sodium [Moles/Vol] 135 mmol/L Normal 135-144 [facility] Comment on above: Performed By: #### E RTPF, CK, ECENZ, VD25 #### [facility] [place] [address] Online Services Manager: Bret Vazquez MD Urea nitrogen [Mass/Vol] 11 mg/dL Normal 8-23 [facility] Comment on above: Performed By: #### E RTPF, CK, ECENZ, VD25 #### [facility] [address] [place] [address] Online Services Manager: Bret Vazquez MD XR ANKLE LEFT (MIN [...] Peter Mosquera DO 10/20/22 Final result Normal [facility] FLUORO FOR SURGICAL PROCEDUR ESon 10-19-2022 FLUORO FOR SURGICAL PROCEDURES Radiology exam is complete. No Radiologist dictation. Please follow up with ordering provider. Final result Normal [facility] OPERATIVE REPORTon 2 OPERATIVE REPORT [place] [address] [place] [address] OPERATIVE REPORT PATIENT NAME: INDIO COLLADO : 1955 MED REC NO: [id number] ROOM: 0238 ACCOUNT NO: [id number] ADMIT DATE: 10/19/2022 PROVIDER: Fredrick Babin DATE [...] tissue from the fracture and then using [id number] clamps as well as K-wires, achieved reduction. [...] Integra glycosami (more content not included)... Normal [facility] XR ANKLE LEFT (MIN 3 VIEWS)o [...] Dallin Pineda MD 10/19/22 Final result Normal [facility] Aerobic Cultureon 09-27-2022 Aerobic Culture ORGANISM: [...] RESISTANT TO ALL B-LACTAM DRUGS. PERFORMED BY: [place] [address] PATHOLOGIST ACTUARIAL CLERK XU TAPIA M.D. Normal [facility] Comment on above: Performed By: #### G LUBRIAN #### Point of Care testing , Anaerobic cultureOrdered By: Molly Rivera on 09-27-2022 Bacteria identified Anaer cx Nom (Unsp spec) [facility] Bacteria identified Aer cx N om (Unsp spec)Ordered By: Molly Rivera on 09-27-2022 Aerobic Culture Enterococcus faecalis [facility] Basic Metabolic Panelon 12-0 Anion gap [Moles/Vol] 10.1 mmol/L Normal 6.0-15.0 [facility] Comment on above: Performed By: #### C MP, CBC, PAB #### [facility] [address] [place] [address] [place] Calcium [Mass/Vol] 8.0 mg/dL Low 8.2-10.2 [facility] Comment on above: Performed By: #### C MP, CBC, PAB #### [facility] [address] [place] [address] [place] Chloride [Moles/Vol] 105 mmol/L Normal 95-114 [facility] Comment on above: Performed By: #### C MP, CBC, PAB #### [facility] [address] [place] [address] [place] CO2 [Moles/Vol] 27.1 mmol/L Normal 22.0-30.0 [facility] Comment on above: Performed By: #### C MP, CBC, PAB #### [facility] [address] Creatinine [Mass/Vol] 0.72 mg/dL Normal 0.64-1.27 [facility] Comment on above: Performed By: #### C MP, CBC, PAB #### [facility] [address] Creatinine Clr Calc Pharmacy 108.46 [facility] Comment on above: Result Comment: PERF ORMED BY: [place] [address] PATHOLOGIST ACTUARIAL CLERK XU TAPIA M.D. Performed By: #### C MP, CBC, PAB #### [address] Estimated GFR ( Marie > 60 [facility] Comment on above: Result Comment: GFR estimated reference range: According to KDOQI guidelines, <60 ml/min/1.73m2 is sufficient to diagnose a patient with chronic kidney disease. Performed By: #### C MP, CBC, PAB #### [address] Estimated GFR (Non- Am > 60 [facility] Comment on above: Performed By: #### C MP, CBC, PAB #### [address] Glucose [Mass/Vol] 90 mg/dL Normal 70-100 [facility] Comment on above: Result Comment: [place] Glucose Reference Range is dependent on time and content of last meal. Glucose of more than 200 mg/dL in a nonstressed, ambulatory subject supports the diagnosis of Diabetes Mellitus. ADA recommended reference range Performed By: #### C MP, CBC, PAB #### [facility] [address] [place] [address] [place] Potassium [Moles/Vol] 4.2 mmol/L Normal 3.5-5.1 [facility] Comment on above: Performed By: #### C MP, CBC, PAB #### [facility] [address] [place] [address] [place] Sodium [Moles/Vol] 138 mmol/L Normal 136-146 [facility] Comment on above: Performed By: #### C MP, CBC, PAB #### [facility] [address] [place] [address] [place] Urea nitrogen [Mass/Vol] 9 mg/dL Normal 9-23 [facility] Comment on above: Performed By: #### C MP, CBC, PAB #### [facility] [address] [place] [address] [place] Basophils Auto (Bld) [#/Vol] Ordered By: Gordon Smith on 09-27-2022 Basophils (Bld) [#/Vol] 0.1 10*3/uL 0.0-0.2 [facility] Basophils/100 WBC Auto (Bld) Ordered By: Gordon Smith on 09-27-2022 Basophils/100 WBC (Bld) 1.0 % . [facility] Complete Blood Count Auto Di ffon 09-27-2022 Basophils (Bld) [#/Vol] 0.1 10*3/uL Normal 0.0-0.2 [facility] Comment on above: Result Comment: PERF ORMED BY: [place] [address] PATHOLOGIST ACTUARIAL CLERK XU TAPIA M.D. Performed By: #### C MP, CBC, PAB #### [address] Basophils/100 WBC (Bld) 1.0 % Normal . [facility] Comment on above: Performed By: #### C MP, CBC, PAB #### [facility] [address] [place] [address] [place] Eosinophils (Bld) [#/Vol] 0.3 10*3/uL Normal 0.0-0.45 [facility] Comment on above: Performed By: #### C MP, CBC, PAB #### [facility] [address] [place] [address] [place] Eosinophils/100 WBC (Bld) 4.8 % Normal . [facility] Comment on above: Performed By: #### C MP, CBC, PAB #### [address] Erythrocyte distribution width (RBC) [Ratio] 15.8 % High 12.0-14.8 [facility] Comment on above: Performed By: #### C MP, CBC, PAB #### [facility] [address] Hematocrit (Bld) [Volume fraction] 29.5 % Low 38.8-50.0 [facility] Comment on above: Performed By: #### C MP, CBC, PAB #### [address] Hemoglobin (Bld) [Mass/Vol] 9.5 g/dL Low 13.0-17.0 [facility] Comment on above: Performed By: #### C MP, CBC, PAB #### [address] Lymphocytes (Bld) [#/Vol] 1.1 10*3/uL Normal 1.00-4.8 [facility] Comment on above: Performed By: #### C MP, CBC, PAB #### [address] Lymphocytes/100 WBC (Bld) 17.0 % Normal . [facility] Comment on above: Performed By: #### C MP, CBC, PAB #### [address] MCH (RBC) [Entitic mass] 30.4 pg Normal 27.5-35.2 [facility] Comment on above: Performed By: #### C MP, CBC, PAB #### [address] MCV (RBC) [Entitic vol] 94.2 fL Normal 83.5-101 [facility] Comment on above: Performed By: #### C MP, CBC, PAB #### [address] Mean Corpuscular HGB Conc 32.3 g/dL Low 32.5-35.6 [facility] Comment on above: Performed By: #### C MP, CBC, PAB #### [facility] [address] [place] [address] [place] Monocytes (Bld) [#/Vol] 0.6 10*3/uL Normal 0.0-0.8 [facility] Comment on above: Performed By: #### C MP, CBC, PAB #### [facility] [address] [place] [address] [place] Monocytes/100 WBC (Bld) 9.6 % Normal . [facility] Comment on above: Performed By: #### C MP, CBC, PAB #### [facility] [address] [place] [address] [place] Neutrophils (Bld) [#/Vol] 4.3 10*3/uL Normal 1.8-7.7 [facility] Comment on above: Performed By: #### C MP, CBC, PAB #### [facility] [address] Neutrophils/100 WBC (Bld) 67.6 % Normal . [facility] Comment on above: Performed By: #### C MP, CBC, PAB #### [facility] [address] [place] [address] [place] NRBC% 0.0 /100{WBC} Normal 0-0.5 [facility] Comment on above: Performed By: #### C MP, CBC, PAB #### [facility] [address] [place] [address] [place] Platelet mean volume (Bld) [Entitic vol] 8.2 fL Normal 6.6-10.1 [facility] Comment on above: Performed By: #### C MP, CBC, PAB #### [facility] [address] [place] [address] [place] Platelets (Bld) [#/Vol] 352 10*3/uL Normal 150-450 [facility] Comment on above: Performed By: #### C MP, CBC, PAB #### [facility] [address] [place] [address] [place] RBC (Bld) [#/Vol] 3.13 10*6/uL Low 3.90-5.60 [facility] Comment on above: Performed By: #### C MP, CBC, PAB #### [facility] [address] [place] [address] [place] WBC (Bld) [#/Vol] 6.3 10*3/uL Normal 4.1-10.5 [facility] Comment on above: Performed By: #### C MP, CBC, PAB #### [facility] [address] Creatinine and Glomerular fi ltration rate.predicted panel (S/P/Bld)Ordered By: Gordon Smith on 09-27-2022 Creatinine [Mass/Vol] 0.72 mg/dL 0.64-1.27 [facility] Eosinophils Auto (Bld) [#/Vo l]Ordered By: Gordon Smith on 09-27-2022 Eosinophils (Bld) [#/Vol] 0.3 10*3/uL 0.0-0.45 [facility] Eosinophils/100 WBC Auto (Bl d)Ordered By: Gordon Smith on 09-27-2022 Eosinophils/100 WBC (Bld) 4.8 % . [facility] Erythrocyte distribution wid th Auto (RBC) [Ratio]Ordered By: Gordon Smith on 09-27-2022 Erythrocyte distribution width (RBC) [Ratio] 15.8 % 12.0-14.8 [facility] Estimated glomerular filtrat ion rate (GFR) non- AmericanOrdered By: Gordon Smith on 09-27-2022 GFR/1.73 sq M.predicted among non-blacks MDRD (S/P/Bld) [Vol rate/Area] > 60 mL/Min [facility] Gram stain for investigation of transfusion reactionOrdered By: Molly Rivera on 09-27-2022 Microscopic observation Gram stain Nom (Unsp spec) [facility] Hematocrit Auto (Bld) [Volum e fraction]Ordered By: Gordon Smith on 09-27-2022 Hematocrit (Bld) [Volume fraction] 29.5 % 38.8-50.0 [facility] Hemoglobin [Mass/volume] in BloodOrdered By: Gordon Smith on 09-27-2022 Hemoglobin (Bld) [Mass/Vol] 9.5 g/dL 13.0-17.0 [facility] Leukocytes [#/volume] correc tyree for nucleated erythrocytes in Blood by Automated counOrdered By: Gordon Smith on 09-27-2022 WBC corrected for nucl RBC Auto (Bld) [#/Vol] 6.3 10*3/uL 4.1-10.5 [facility] Lymphocytes Auto (Bld) [#/Vo l]Ordered By: Gordon Smith on 09-27-2022 Lymphocytes (Bld) [#/Vol] 1.1 10*3/uL 1.00-4.8 [facility] Lymphocytes/100 WBC Auto (Bl d)Ordered By: Gordon Smith on 09-27-2022 Lymphocytes/100 WBC (Bld) 17.0 % . [facility] MCH Auto (RBC) [Entitic mass ]Ordered By: Gordon Smith on 09-27-2022 MCH (RBC) [Entitic mass] 30.4 pg 27.5-35.2 [facility] MCHC Auto (RBC) [Mass/Vol]Or dered By: Gordon Smith on 09-27-2022 MCHC (RBC) [Mass/Vol] 32.3 g/dL 32.5-35.6 [facility] MCV Auto (RBC) [Entitic vol] Ordered By: Gordon Smith on 09-27-2022 MCV (RBC) [Entitic vol] 94.2 fL 83.5-101 [facility] Monocytes Auto (Bld) [#/Vol] Ordered By: Gordon Smith on 09-27-2022 Monocytes (Bld) [#/Vol] 0.6 10*3/uL 0.0-0.8 [facility] Monocytes/100 WBC Auto (Bld) Ordered By: Gordon Smith on 09-27-2022 Monocytes/100 WBC (Bld) 9.6 % . [facility] Neutrophils Auto (Bld) [#/Vo l]Ordered By: Gordon Smith on 09-27-2022 Neutrophils (Bld) [#/Vol] 4.3 10*3/uL 1.8-7.7 [facility] Neutrophils/100 WBC Auto (Bl d)Ordered By: Gordon Smith on 09-27-2022 Neutrophils/100 WBC (Bld) 67.6 % . [facility] No Panel InformationOrdered By: Gordon Smith on 09-27-2022 Estimated GFR () > 60 mL/Min [facility] Comment on above: GFR estimated refere nce range: According to KDOQI guidelines, <60 ml/min/1.73m2 is sufficient to diagnose a patient with chronic kidney disease. Pharmacy Creatinine Clearance (Chem 108.46 [facility] Nucleated erythrocytes [Pres ence] in Blood by Automated countOrdered By: Gordon Smith on 09-27-2022 Nucleated RBC Auto Ql (Bld) 0.0 /100{WBC} 0-0.5 [facility] Platelet mean volume Auto (B ld) [Entitic vol]Ordered By: Gordon Smith on 09-27-2022 Platelet mean volume (Bld) [Entitic vol] 8.2 fL 6.6-10.1 [facility] Platelets Auto (Bld) [#/Vol] Ordered By: Gordon Smith on 09-27-2022 Platelets (Bld) [#/Vol] 352 10*3/uL 150-450 [facility] RBC Auto (Bld) [#/Vol]Ordere d By: Gordon Smith on 09-27-2022 RBC (Bld) [#/Vol] 3.13 10*6/uL 3.90-5.60 [facility] Serum or plasma anion gap de terminationOrdered By: Gordon Smith on 09-27-2022 Anion gap [Moles/Vol] 10.1 mmol/L 6.0-15.0 [facility] Serum or plasma calcium berhane urement (mass/volume)Ordered By: Gordon Smith on 09-27-2022 Calcium [Mass/Vol] 8.0 mg/dL 8.2-10.2 [facility] Serum or plasma chloride elle surement (moles/volume)Ordered By: Gordon Smith on 09-27-2022 Chloride [Moles/Vol] 105 mmol/L 95-114 [facility] Serum or plasma glucose berhane urement (mass/volume)Ordered By: Gordon Smith on 09-27-2022 Glucose [Mass/Vol] 90 mg/dL 70-100 [facility] Comment on above: ADA recommended refe rence rangeRandom Glucose Reference Range is dependent on time and content of last meal. Glucose of more than 200 mg/dL in a nonstressed, ambulatory subject supports the diagnosis of Diabetes Mellitus. Serum or plasma potassium me asurement (moles/volume)Ordered By: Gordon Smith on 09-27-2022 Potassium [Moles/Vol] 4.2 mmol/L 3.5-5.1 [facility] Serum or plasma sodium measu rement (moles/volume)Ordered By: Gordon Smith on 09-27-2022 Sodium [Moles/Vol] 138 mmol/L 136-146 [facility] Serum or plasma total carbon dioxide measurement (moles/volume)Ordered By: Gordon Smith on 09-27-2022 CO2 [Moles/Vol] 27.1 mmol/L 22.0-30.0 [facility] Serum or plasma urea nitroge n measurement (mass/volume)Ordered By: Gordon Smith on 09-27-2022 Urea nitrogen [Mass/Vol] 9 mg/dL 9- [facility] US venous duplex LE BIon US venous duplex LE BI [facility] [address] Ultrasound Report Signed Patient: Indio Collado MR#: [id number] 8 : 1955 Acct:[id number] Age/Sex: 67 / M ADM Date: 09/11/22 Loc: Room: [address] [place] [address] Type: ADM IN Attending Dr: Gordon Smith [...] Chirag Hatch MD09/27/2022 2:17 PM Dictation Location: [place] [address] Tech: Mirna Sharma Transcribed By: [facility] 09/27/221416 Dictated By: Chirag Hatch MD 09/27/221415 Signed By: 09/27/221416 Normal [facility] WBC Auto (Bld) [#/Vol]Ordere d By: Gordon Smith on 09-27-2022 WBC (Bld) [#/Vol] 6.3 10*3/uL 4.1-10.5 [facility] Complete Blood Count Auto Di ffon 09-26-2022 Basophils (Bld) [#/Vol] 0.1 10*3/uL Normal 0.0-0.2 [facility] Comment on above: Result Comment: PERF ORMED BY: [facility] [address] [place] [address] PATHOLOGIST ACTUARIAL CLERK XU TAPIA M.D. Performed By: #### G LULS #### Point of Care testing , Basophils/100 WBC (Bld) 2.1 % Normal . [facility] Comment on above: Performed By: #### G LULS #### Point of Care testing , Eosinophils (Bld) [#/Vol] 0.4 10*3/uL Normal 0.0-0.45 [facility] Comment on above: Performed By: #### G LULS #### Point of Care testing , Eosinophils/100 WBC (Bld) 7.6 % Normal . [facility] Comment on above: Performed By: #### G LULS #### Point of Care testing , Erythrocyte distribution width (RBC) [Ratio] 15.9 % High 12.0-14.8 [facility] Comment on above: Performed By: #### G LULS #### Point of Care testing , Hematocrit (Bld) [Volume fraction] 28.6 % Low 38.8-50.0 [facility] Comment on above: Performed By: #### G LULS #### Point of Care testing , Hemoglobin (Bld) [Mass/Vol] 9.4 g/dL Low 13.0-17.0 [facility] Comment on above: Performed By: #### G LULS #### Point of Care testing , Lymphocytes (Bld) [#/Vol] 1.2 10*3/uL Normal 1.00-4.8 [facility] Comment on above: Performed By: #### G LULS #### Point of Care testing , Lymphocytes/100 WBC (Bld) 23.5 % Normal . [facility] Comment on above: Performed By: #### G LULS #### Point of Care testing , MCH (RBC) [Entitic mass] 30.9 pg Normal 27.5-35.2 [facility] Comment on above: Performed By: #### G LULS #### Point of Care testing , MCV (RBC) [Entitic vol] 93.9 fL Normal 83.5-101 [facility] Comment on above: Performed By: #### G LULS #### Point of Care testing , Mean Corpuscular HGB Conc 32.9 g/dL Normal 32.5-35.6 [facility] Comment on above: Performed By: #### G LULS #### Point of Care testing , Monocytes (Bld) [#/Vol] 0.5 10*3/uL Normal 0.0-0.8 [facility] Comment on above: Performed By: #### G LULS #### Point of Care testing , Monocytes/100 WBC (Bld) 10.0 % Normal . [facility] Comment on above: Performed By: #### G LULS #### Point of Care testing , Neutrophils (Bld) [#/Vol] 2.8 10*3/uL Normal 1.8-7.7 [facility] Comment on above: Performed By: #### G LULS #### Point of Care testing , Neutrophils/100 WBC (Bld) 56.8 % Normal . [facility] Comment on above: Performed By: #### G LULS #### Point of Care testing , NRBC% 0.2 /100{WBC} Normal 0-0.5 [facility] Comment on above: Performed By: #### G LULS #### Point of Care testing , Platelet mean volume (Bld) [Entitic vol] 7.9 fL Normal 6.6-10.1 [facility] Comment on above: Performed By: #### G LULS #### Point of Care testing , Platelets (Bld) [#/Vol] 371 10*3/uL Normal 150-450 [facility] Comment on above: Performed By: #### G LULS #### Point of Care testing , RBC (Bld) [#/Vol] 3.04 10*6/uL Low 3.90-5.60 [facility] Comment on above: Performed By: #### G LULS #### Point of Care testing , WBC (Bld) [#/Vol] 4.9 10*3/uL Normal 4.1-10.5 [facility] Comment on above: Performed By: #### G LULS #### Point of Care testing , Complete Blood Count Auto Di ffon 09-23-2022 Basophils (Bld) [#/Vol] 0.1 10*3/uL Normal 0.0-0.2 [facility] Comment on above: Result Comment: PERF ORMED BY: [facility] [address] [address] PATHOLOGIST ACTUARIAL CLERK XU TAPIA M.D. Performed By: #### G LULS #### Point of Care testing , Basophils/100 WBC (Bld) 1.3 % Normal . [facility] Comment on above: Performed By: #### G LULS #### Point of Care testing , Eosinophils (Bld) [#/Vol] 0.3 10*3/uL Normal 0.0-0.45 [facility] Comment on above: Performed By: #### G LULS #### Point of Care testing , Eosinophils/100 WBC (Bld) 4.7 % Normal . [facility] Comment on above: Performed By: #### G LULS #### Point of Care testing , Erythrocyte distribution width (RBC) [Ratio] 16.1 % High 12.0-14.8 [facility] Comment on above: Performed By: #### G LULS #### Point of Care testing , Hematocrit (Bld) [Volume fraction] 27.6 % Low 38.8-50.0 [facility] Comment on above: Performed By: #### G LULS #### Point of Care testing , Hemoglobin (Bld) [Mass/Vol] 9.0 g/dL Low 13.0-17.0 [facility] Comment on above: Performed By: #### G LULS #### Point of Care testing , Lymphocytes (Bld) [#/Vol] 1.4 10*3/uL Normal 1.00-4.8 [facility] Comment on above: Performed By: #### G LULS #### Point of Care testing , Lymphocytes/100 WBC (Bld) 20.0 % Normal . [facility] Comment on above: Performed By: #### G HUGOLS #### Point of Care testing , MCH (RBC) [Entitic mass] 31.0 pg Normal 27.5-35.2 [facility] Comment on above: Performed By: #### G LULS #### Point of Care testing , MCV (RBC) [Entitic vol] 95.3 fL Normal 83.5-101 [facility] Comment on above: Performed By: #### G LULS #### Point of Care testing , Mean Corpuscular HGB Conc 32.5 g/dL Normal 32.5-35.6 [facility] Comment on above: Performed By: #### G LULS #### Point of Care testing , Monocytes (Bld) [#/Vol] 0.6 10*3/uL Normal 0.0-0.8 [facility] Comment on above: Performed By: #### G LULS #### Point of Care testing , Monocytes/100 WBC (Bld) 8.8 % Normal . [facility] Comment on above: Performed By: #### G LULS #### Point of Care testing , Neutrophils (Bld) [#/Vol] 4.6 10*3/uL Normal 1.8-7.7 [facility] Comment on above: Performed By: #### G HUGOLS #### Point of Care testing , Neutrophils/100 WBC (Bld) 65.2 % Normal . [facility] Comment on above: Performed By: #### G HUGOLS #### Point of Care testing , NRBC% 0.0 /100{WBC} Normal 0-0.5 [facility] Comment on above: Performed By: #### G LULS #### Point of Care testing , Platelet mean volume (Bld) [Entitic vol] 8.1 fL Normal 6.6-10.1 [facility] Comment on above: Performed By: #### G HUGOLS #### Point of Care testing , Platelets (Bld) [#/Vol] 362 10*3/uL Normal 150-450 [facility] Comment on above: Performed By: #### G HUGOLS #### Point of Care testing , RBC (Bld) [#/Vol] 2.90 10*6/uL Low 3.90-5.60 [facility] Comment on above: Performed By: #### G USMAN #### Point of Care testing , WBC (Bld) [#/Vol] 7.0 10*3/uL Normal 4.1-10.5 [facility] Comment on above: Performed By: #### G LULS #### Point of Care testing , Complete Blood Count Auto Di ffon 09-22-2022 Basophils (Bld) [#/Vol] 0.1 10*3/uL Normal 0.0-0.2 [facility] Comment on above: Result Comment: PERF ORMED BY: [facility] [address] [place] [address] PATHOLOGIST ACTUARIAL CLERK XU TAPIA M.D. Performed By: #### G HUGOLS #### Point of Care testing , Basophils/100 WBC (Bld) 1.3 % Normal . [facility] Comment on above: Performed By: #### G HUGOLS #### Point of Care testing , Eosinophils (Bld) [#/Vol] 0.3 10*3/uL Normal 0.0-0.45 [facility] Comment on above: Performed By: #### G LULS #### Point of Care testing , Eosinophils/100 WBC (Bld) 4.4 % Normal . [facility] Comment on above: Performed By: #### G HUGOLS #### Point of Care testing , Erythrocyte distribution width (RBC) [Ratio] 16.1 % High 12.0-14.8 [facility] Comment on above: Performed By: #### G LULS #### Point of Care testing , Hematocrit (Bld) [Volume fraction] 26.6 % Low 38.8-50.0 [facility] Comment on above: Performed By: #### G LULS #### Point of Care testing , Hemoglobin (Bld) [Mass/Vol] 8.7 g/dL Low 13.0-17.0 [facility] Comment on above: Performed By: #### G HUGOLS #### Point of Care testing , Lymphocytes (Bld) [#/Vol] 1.3 10*3/uL Normal 1.00-4.8 [facility] Comment on above: Performed By: #### G LULS #### Point of Care testing , Lymphocytes/100 WBC (Bld) 22.0 % Normal . [facility] Comment on above: Performed By: #### G HUGOLS #### Point of Care testing , MCH (RBC) [Entitic mass] 31.1 pg Normal 27.5-35.2 [facility] Comment on above: Performed By: #### G HUGOLS #### Point of Care testing , MCV (RBC) [Entitic vol] 95.0 fL Normal 83.5-101 [facility] Comment on above: Performed By: #### G HUGOLS #### Point of Care testing , Mean Corpuscular HGB Conc 32.8 g/dL Normal 32.5-35.6 [facility] Comment on above: Performed By: #### G HUGOLS #### Point of Care testing , Monocytes (Bld) [#/Vol] 0.5 10*3/uL Normal 0.0-0.8 [facility] Comment on above: Performed By: #### G HUGOLS #### Point of Care testing , Monocytes/100 WBC (Bld) 8.7 % Normal . [facility] Comment on above: Performed By: #### G HUGOLS #### Point of Care testing , Neutrophils (Bld) [#/Vol] 3.9 10*3/uL Normal 1.8-7.7 [facility] Comment on above: Performed By: #### G HUGOLS #### Point of Care testing , Neutrophils/100 WBC (Bld) 63.6 % Normal . [facility] Comment on above: Performed By: #### G HUGOLS #### Point of Care testing , NRBC% 0.2 /100{WBC} Normal 0-0.5 [facility] Comment on above: Performed By: #### G HUGOLS #### Point of Care testing , Platelet mean volume (Bld) [Entitic vol] 8.5 fL Normal 6.6-10.1 [facility] Comment on above: Performed By: #### G HUGOLS #### Point of Care testing , Platelets (Bld) [#/Vol] 339 10*3/uL Normal 150-450 [facility] Comment on above: Performed By: #### G HUGOLS #### Point of Care testing , RBC (Bld) [#/Vol] 2.80 10*6/uL Low 3.90-5.60 [facility] Comment on above: Performed By: #### G HUGOLS #### Point of Care testing , WBC (Bld) [#/Vol] 6.1 10*3/uL Normal 4.1-10.5 [facility] Comment on above: Performed By: #### G HUGOLS #### Point of Care testing , Basic Metabolic Panel 08-25 Anion gap [Moles/Vol] 9.4 mmol/L Normal 6.0-15.0 [facility] Comment on above: Performed By: #### C MP, CBC, PAB #### [address] Calcium [Mass/Vol] 7.9 mg/dL Low 8.2-10.2 [facility] Comment on above: Performed By: #### C MP, CBC, PAB #### [facility] [address] Chloride [Moles/Vol] 104 mmol/L Normal 95-114 [facility] Comment on above: Performed By: #### C MP, CBC, PAB #### [facility] [address] CO2 [Moles/Vol] 29.0 mmol/L Normal 22.0-30.0 [facility] Comment on above: Performed By: #### C MP, CBC, PAB #### [address] Creatinine [Mass/Vol] 0.77 mg/dL Normal 0.64-1.27 [facility] Comment on above: Performed By: #### C MP, CBC, PAB #### [place] [address] [place] Creatinine Clr Calc Pharmacy 111.64 [facility] Comment on above: Result Comment: PERF ORMED BY: [place] [address] PATHOLOGIST ACTUARIAL CLERK XU TAPIA M.D. Performed By: #### C MP, CBC, PAB #### [address] Estimated GFR ( Marie > 60 [facility] Comment on above: Result Comment: GFR estimated reference range: According to KDOQI guidelines, <60 ml/min/1.73m2 is sufficient to diagnose a patient with chronic kidney disease. Performed By: #### C MP, CBC, PAB #### [facility] [address] [place] [address] [place] Estimated GFR (Non- Am > 60 [facility] Comment on above: Performed By: #### C MP, CBC, PAB #### [place] [address] [place] Glucose [Mass/Vol] 81 mg/dL Normal 70-100 [facility] Comment on above: Result Comment: [place] Glucose Reference Range is dependent on time and content of last meal. Glucose of more than 200 mg/dL in a nonstressed, ambulatory subject supports the diagnosis of Diabetes Mellitus. ADA recommended reference range Performed By: #### C MP, CBC, PAB #### [facility] [address] Potassium [Moles/Vol] 4.4 mmol/L Normal 3.5-5.1 [facility] Comment on above: Performed By: #### C MP, CBC, PAB #### [facility] [address] Sodium [Moles/Vol] 138 mmol/L Normal 136-146 [facility] Comment on above: Performed By: #### C MP, CBC, PAB #### [facility] [address] Urea nitrogen [Mass/Vol] 8 mg/dL Low 9- [facility] Comment on above: Performed By: #### C MP, CBC, PAB #### [address] Complete Blood Count Auto Di ffon 09-21-2022 Basophils (Bld) [#/Vol] 0.1 10*3/uL Normal 0.0-0.2 [facility] Comment on above: Result Comment: PERF ORMED BY: [place] [address] PATHOLOGIST ACTUARIAL CLERK XU TAPIA M.D. Performed By: #### C MP, CBC, PAB #### [facility] [address] [place] [address] [place] Basophils/100 WBC (Bld) 1.5 % Normal . [facility] Comment on above: Performed By: #### C MP, CBC, PAB #### [facility] [address] [place] [address] [place] Eosinophils (Bld) [#/Vol] 0.4 10*3/uL Normal 0.0-0.45 [facility] Comment on above: Performed By: #### C MP, CBC, PAB #### [facility] [address] [place] [address] [place] Eosinophils/100 WBC (Bld) 6.3 % Normal . [facility] Comment on above: Performed By: #### C MP, CBC, PAB #### [facility] [address] Erythrocyte distribution width (RBC) [Ratio] 16.0 % High 12.0-14.8 [facility] Comment on above: Performed By: #### C MP, CBC, PAB #### [facility] [address] Hematocrit (Bld) [Volume fraction] 25.5 % Low 38.8-50.0 [facility] Comment on above: Performed By: #### C MP, CBC, PAB #### [facility] [address] Hemoglobin (Bld) [Mass/Vol] 8.3 g/dL Low 13.0-17.0 [facility] Comment on above: Performed By: #### C MP, CBC, PAB #### [facility] [address] Lymphocytes (Bld) [#/Vol] 1.6 10*3/uL Normal 1.00-4.8 [facility] Comment on above: Performed By: #### C MP, CBC, PAB #### [place] [address] [place] Lymphocytes/100 WBC (Bld) 24.7 % Normal . [facility] Comment on above: Performed By: #### C MP, CBC, PAB #### [facility] [address] MCH (RBC) [Entitic mass] 31.3 pg Normal 27.5-35.2 [facility] Comment on above: Performed By: #### C MP, CBC, PAB #### [facility] [address] MCV (RBC) [Entitic vol] 95.9 fL Normal 83.5-101 [facility] Comment on above: Performed By: #### C MP, CBC, PAB #### [facility] [address] Mean Corpuscular HGB Conc 32.7 g/dL Normal 32.5-35.6 [facility] Comment on above: Performed By: #### C MP, CBC, PAB #### [facility] [address] Monocytes (Bld) [#/Vol] 0.6 10*3/uL Normal 0.0-0.8 [facility] Comment on above: Performed By: #### C MP, CBC, PAB #### [facility] [address] Monocytes/100 WBC (Bld) 9.1 % Normal . [facility] Comment on above: Performed By: #### C MP, CBC, PAB #### [facility] [address] [place] [address] [place] Neutrophils (Bld) [#/Vol] 3.7 10*3/uL Normal 1.8-7.7 [facility] Comment on above: Performed By: #### C MP, CBC, PAB #### [facility] [address] [place] [address] [place] Neutrophils/100 WBC (Bld) 58.4 % Normal . [facility] Comment on above: Performed By: #### C MP, CBC, PAB #### [facility] [address] [place] [address] [place] Platelet mean volume (Bld) [Entitic vol] 8.3 fL Normal 6.6-10.1 [facility] Comment on above: Performed By: #### C MP, CBC, PAB #### [facility] [address] [place] [address] [place] Platelets (Bld) [#/Vol] 372 10*3/uL Normal 150-450 [facility] Comment on above: Performed By: #### C MP, CBC, PAB #### [facility] [address] [place] [address] [place] RBC (Bld) [#/Vol] 2.66 10*6/uL Low 3.90-5.60 [facility] Comment on above: Performed By: #### C MP, CBC, PAB #### [facility] [address] WBC (Bld) [#/Vol] 6.4 10*3/uL Normal 4.5-11.0 [facility] Comment on above: Performed By: #### C MP, CBC, PAB #### [facility] [address] Complete Blood Count Auto Di ffOrdered By: Gordon Smith on 09-21-2022 Nucleated RBC/100 WBC (Bld) [Ratio] 0.1 % 0-0.5 [facility] Comment on above: Performed By: #### C MP, CBC, PAB #### [facility] [address] Complete Blood Count Auto Di ffon 09-20-2022 Basophils (Bld) [#/Vol] 0.1 10*3/uL Normal 0.0-0.2 [facility] Comment on above: Result Comment: PERF ORMED BY: [place] [address] PATHOLOGIST ACTUARIAL CLERK XU TAPIA M.D. Performed By: #### C BC #### [address] Basophils/100 WBC (Bld) 1.2 % Normal . [facility] Comment on above: Performed By: #### C BC #### [place] [address] [place] Eosinophils (Bld) [#/Vol] 0.3 10*3/uL Normal 0.0-0.45 [facility] Comment on above: Performed By: #### C BC #### [address] Eosinophils/100 WBC (Bld) 4.6 % Normal . [facility] Comment on above: Performed By: #### C BC #### [address] Erythrocyte distribution width (RBC) [Ratio] 16.3 % High 12.0-14.8 [facility] Comment on above: Performed By: #### C BC #### [address] Hematocrit (Bld) [Volume fraction] 26.4 % Low 38.8-50.0 [facility] Comment on above: Performed By: #### C BC #### [address] Hemoglobin (Bld) [Mass/Vol] 8.7 g/dL Low 13.0-17.0 [facility] Comment on above: Performed By: #### C BC #### [address] Lymphocytes (Bld) [#/Vol] 1.4 10*3/uL Normal 1.00-4.8 [facility] Comment on above: Performed By: #### C BC #### [address] Lymphocytes/100 WBC (Bld) 20.0 % Normal . [facility] Comment on above: Performed By: #### C BC #### [address] MCH (RBC) [Entitic mass] 31.8 pg Normal 27.5-35.2 [facility] Comment on above: Performed By: #### C BC #### [address] MCV (RBC) [Entitic vol] 96.0 fL Normal 83.5-101 [facility] Comment on above: Performed By: #### C BC #### [address] Mean Corpuscular HGB Conc 33.2 g/dL Normal 32.5-35.6 [facility] Comment on above: Performed By: #### C BC #### [address] Monocytes (Bld) [#/Vol] 0.6 10*3/uL Normal 0.0-0.8 [facility] Comment on above: Performed By: #### C BC #### [facility] [address] [place] [id number] [place] Monocytes/100 WBC (Bld) 8.5 % Normal . [facility] Comment on above: Performed By: #### C BC #### [facility] [address] [place] [address] [place] Neutrophils (Bld) [#/Vol] 4.5 10*3/uL Normal 1.8-7.7 [facility] Comment on above: Performed By: #### C BC #### [facility] [address] [place] [id number] [facility] Neutrophils/100 WBC (Bld) 65.7 % Normal . [facility] Comment on above: Performed By: #### C BC #### [facility] [address] [place] [id number] [facility] Nucleated RBC/100 WBC (Bld) [Ratio] 0.0 % Normal 0-0.5 [facility] Comment on above: Performed By: #### C BC #### [facility] [address] [place] [id number] [place] Platelet mean volume (Bld) [Entitic vol] 8.3 fL Normal 6.6-10.1 [facility] Comment on above: Performed By: #### C BC #### [facility] [address] [place] [address] [place] Platelets (Bld) [#/Vol] 373 10*3/uL Normal 150-450 [facility] Comment on above: Performed By: #### C BC #### [facility] [address] [place] [address] [place] RBC (Bld) [#/Vol] 2.75 10*6/uL Low 3.90-5.60 [facility] Comment on above: Performed By: #### C BC #### [facility] [address] [place] [id number] [place] WBC (Bld) [#/Vol] 6.8 10*3/uL Normal 4.5-11.0 [facility] Comment on above: Performed By: #### C BC #### [facility] [address] [place] [address] Fecal occult blood detection by immunochemistryOrdered By: Tram Perez on 09-20-2022 Hemoglobin.gastrointesti nal Ql (Stl) [facility] Stool Occult Blood (Guaiac)o n 09-20-2022 Stool Occult Blood (Guaiac) Occult Blood Negative for Occult Blood by Guaiac Methodology ---- Reference range = Negative PERFORMED BY: [place] [address] PATHOLOGIST ACTUARIAL CLERK XU TAPIA M.D. [facility] Comment on above: Performed By: #### C MP, CBC, PAB #### [facility] [address] [place] [address] [place] venous duplex LE BIon US venous duplex LE BI [facility] [place] [address] [place] [address] Ultrasound Report Signed Patient: Indio Collado MR#: [id number] 8 : 1955 Acct:[id number] Age/Sex: 67 / M ADM Date: 09/11/22 Loc: Room: [address] [place] [address] Type: ADM IN Attending Dr: Gordon Smith [...] Fer Mayfield M.D.09/20/2022 2:43 PM Dictation Location: [facility] Tech: Malgorzata Fordxler Transcribed By: YENI 09/20/221442 Dictated By: Fer Mayfield MD 09/20/221440 Signed By: 09/20/221442 [facility] Activated partial thrombopla stin time (aPTT) in platelet poor plasma by coagulation aOrdered By: Tram Perez on 09-19-2022 aPTT Coag (PPP) [Time] 33.8 s 25.1-36.5 [facility] Basic Metabolic Panelon 08-25 Anion gap [Moles/Vol] 7.3 mmol/L Normal 6.0-15.0 [facility] Comment on above: Performed By: #### C MP, CBC, PAB #### [facility] [address] Calcium [Mass/Vol] 7.8 mg/dL Low 8.2-10.2 [facility] Comment on above: Performed By: #### C MP, CBC, PAB #### [facility] [address] [place] [phone] [place] Chloride [Moles/Vol] 103 mmol/L Normal 95-114 [facility] Comment on above: Performed By: #### C MP, CBC, PAB #### [facility] [address] [place] [phone] [place] CO2 [Moles/Vol] 29.1 mmol/L Normal 22.0-30.0 [facility] Comment on above: Performed By: #### C MP, CBC, PAB #### [facility] [address] [place] [phone] [place] Creatinine [Mass/Vol] 0.86 mg/dL Normal 0.64-1.27 [facility] Comment on above: Performed By: #### C MP, CBC, PAB #### [address] Creatinine Clr Calc Pharmacy 103.85 [facility] Comment on above: Result Comment: PERF ORMED BY: [place] [address] PATHOLOGIST ACTUARIAL CLERK XU TAPIA M.D. Performed By: #### C MP, CBC, PAB #### [address] Estimated GFR ( Marie > 60 [facility] Comment on above: Result Comment: GFR estimated reference range: According to KDOQI guidelines, <60 ml/min/1.73m2 is sufficient to diagnose a patient with chronic kidney disease. Performed By: #### C MP, CBC, PAB #### [address] Estimated GFR (Non- Am > 60 [facility] Comment on above: Performed By: #### C MP, CBC, PAB #### [address] Glucose [Mass/Vol] 90 mg/dL Normal 70-100 [facility] Comment on above: Result Comment: [place] Glucose Reference Range is dependent on time and content of last meal. Glucose of more than 200 mg/dL in a nonstressed, ambulatory subject supports the diagnosis of Diabetes Mellitus. ADA recommended reference range Performed By: #### C MP, CBC, PAB #### [address] Potassium [Moles/Vol] 4.4 mmol/L Normal 3.5-5.1 [facility] Comment on above: Performed By: #### C MP, CBC, PAB #### [address] Sodium [Moles/Vol] 135 mmol/L Low 136-146 [facility] Comment on above: Performed By: #### C MP, CBC, PAB #### [facility] [address] Urea nitrogen [Mass/Vol] 10 mg/dL Normal 9-23 [facility] Comment on above: Performed By: #### C MP, CBC, PAB #### [facility] [address] abdomen pelvis w conon CT abdomen pelvis w con [facility] [place] [address] [place] [address] CT Scan Report Signed Patient: Indio Collado MR#: [id number] 8 : 1955 Acct:[id number] Age/Sex: 67 / M ADM Date: 09/11/22 Loc: Room: [address] [place] [address] Type: ADM IN Attending Dr: Gordon Smith [...] Juhi Morales M.D.09/19/2022 3:46 PM Dictation Location: [place] [address] Transcribed By: [facility] 09/19/22 1546 Dictated By: Juhi Morales MD 09/19/22 1534 Signed By: 09/19/22 1546 Normal [facility] Coagulation Profileon 2021 aPTT Coag (Bld) [Time] 33.8 s Normal 25.1-36.5 [facility] Comment on above: Result Comment: PERF ORMED BY: [place] [address] PATHOLOGIST ACTUARIAL CLERK XU TAPIA M.D. Performed By: #### C MP, CBC, PAB #### [address] INR Coag (PPP) [Relative time] 1.2 {INR} Normal [facility] Comment on above: Result Comment: INR Therapeutic [...] By: #### C MP, CBC, PAB #### [facility] [address] [place] [address] [place] PT Coag (PPP) [Time] 13.1 s High 9.0-12.9 [facility] Comment on above: Performed By: #### C MP, CBC, PAB #### [facility] [address] Laboratory - CoagulationOrde red By: Tram Perez on 09-19-2022 PT Coag (PPP) [Time] 13.1 s 9.0-12.9 [facility] Platelet poor plasma interna tional normalized ratio (INR) by coagulation assay (relatOrdered By: Tram Perez on 09-19-2022 INR Coag (PPP) [Relative time] 1.2 {INR} [facility] Comment on above: INR Therapeutic Rang e [...] Anion gap [Moles/Vol] 8.9 mmol/L Normal 6.0-15.0 [facility] Comment on above: Performed By: #### C BC, BMP #### [facility] [address] [place] [address] [place] Calcium [Mass/Vol] 7.9 mg/dL Low 8.2-10.2 [facility] Comment on above: Performed By: #### C BC, BMP #### [facility] [address] [place] [address] [place] Chloride [Moles/Vol] 103 mmol/L Normal 95-114 [facility] Comment on above: Performed By: #### C BC, BMP #### [facility] [address] [place] [address] [place] CO2 [Moles/Vol] 28.4 mmol/L Normal 22.0-30.0 [facility] Comment on above: Performed By: #### C BC, BMP #### [facility] [address] Creatinine [Mass/Vol] 0.78 mg/dL Normal 0.64-1.27 [facility] Comment on above: Performed By: #### C BC, BMP #### [facility] [address] [place] [address] [place] Creatinine Clr Calc Pharmacy 102.55 [facility] Comment on above: Result Comment: PERF ORMED BY: [place] [address] PATHOLOGIST ACTUARIAL CLERK XU TAPIA M.D. Performed By: #### C BC, BMP #### [address] Estimated GFR ( Marie > 60 [facility] Comment on above: Result Comment: GFR estimated reference range: According to KDOQI guidelines, <60 ml/min/1.73m2 is sufficient to diagnose a patient with chronic kidney disease. Performed By: #### C BC, BMP #### [facility] [address] [place] [address] [place] Estimated GFR (Non- Am > 60 [facility] Comment on above: Performed By: #### C BC, BMP #### [address] Glucose [Mass/Vol] 95 mg/dL Normal 70-100 [facility] Comment on above: Result Comment: [place] Glucose Reference Range is dependent on time and content of last meal. Glucose of more than 200 mg/dL in a nonstressed, ambulatory subject supports the diagnosis of Diabetes Mellitus. ADA recommended reference range Performed By: #### C BC, BMP #### [facility] [address] Potassium [Moles/Vol] 4.3 mmol/L Normal 3.5-5.1 [facility] Comment on above: Performed By: #### C BC, BMP #### [facility] [address] [place] [address] [place] Sodium [Moles/Vol] 136 mmol/L Normal 136-146 [facility] Comment on above: Performed By: #### C BC, BMP #### [address] Urea nitrogen [Mass/Vol] 9 mg/dL Normal 9-23 [facility] Comment on above: Performed By: #### C BC, BMP #### [address] Complete Blood Count Auto Di ffon 09-18-2022 Basophils (Bld) [#/Vol] 0.1 10*3/uL Normal 0.0-0.2 [facility] Comment on above: Result Comment: PERF ORMED BY: [place] [address] PATHOLOGIST ACTUARIAL CLERK XU TAPIA M.D. Performed By: #### C BC, BMP #### [address] Basophils/100 WBC (Bld) 1.0 % Normal . [facility] Comment on above: Performed By: #### C BC, BMP #### [address] Eosinophils (Bld) [#/Vol] 0.5 10*3/uL High 0.0-0.45 [facility] Comment on above: Performed By: #### C BC, BMP #### [address] Eosinophils/100 WBC (Bld) 6.0 % Normal . [facility] Comment on above: Performed By: #### C BC, BMP #### [address] Erythrocyte distribution width (RBC) [Ratio] 16.2 % High 12.0-14.8 [facility] Comment on above: Performed By: #### C BC, BMP #### [address] Hematocrit (Bld) [Volume fraction] 24.7 % Low 38.8-50.0 [facility] Comment on above: Performed By: #### C BC, BMP #### [facility] [address] Hemoglobin (Bld) [Mass/Vol] 8.1 g/dL Low 13.0-17.0 [facility] Comment on above: Performed By: #### C BC, BMP #### [facility] [address] Lymphocytes (Bld) [#/Vol] 1.5 10*3/uL Normal 1.00-4.8 [facility] Comment on above: Performed By: #### C BC, BMP #### [facility] [address] Lymphocytes/100 WBC (Bld) 18.5 % Normal . [facility] Comment on above: Performed By: #### C BC, BMP #### [facility] [address] MCH (RBC) [Entitic mass] 31.6 pg Normal 27.5-35.2 [facility] Comment on above: Performed By: #### C BC, BMP #### [facility] [address] MCV (RBC) [Entitic vol] 96.7 fL Normal 83.5-101 [facility] Comment on above: Performed By: #### C BC, BMP #### [facility] [address] Mean Corpuscular HGB Conc 32.7 g/dL Normal 32.5-35.6 [facility] Comment on above: Performed By: #### C BC, BMP #### [facility] [address] [place] [address] [place] Monocytes (Bld) [#/Vol] 0.7 10*3/uL Normal 0.0-0.8 [facility] Comment on above: Performed By: #### C BC, BMP #### [facility] [address] [place] [id number] [place] Monocytes/100 WBC (Bld) 8.7 % Normal . [facility] Comment on above: Performed By: #### C BC, BMP #### [facility] [address] [place] [address] [place] Neutrophils (Bld) [#/Vol] 5.3 10*3/uL Normal 1.8-7.7 [facility] Comment on above: Performed By: #### C BC, BMP #### [facility] [address] [place] [address] [place] Neutrophils/100 WBC (Bld) 65.8 % Normal . [facility] Comment on above: Performed By: #### C BC, BMP #### [facility] [address] [place] [phone] [place] Nucleated RBC/100 WBC (Bld) [Ratio] 0.1 % Normal 0-0.5 [facility] Comment on above: Performed By: #### C MONI, BMP #### [facility] [address] [place] [address] [place] Platelet mean volume (Bld) [Entitic vol] 8.1 fL Normal 6.6-10.1 [facility] Comment on above: Performed By: #### C BC, BMP #### [facility] [address] [place] [phone] [place] Platelets (Bld) [#/Vol] 358 10*3/uL Normal 150-450 [facility] Comment on above: Performed By: #### C BC, BMP #### [facility] [address] [place] [address] [place] RBC (Bld) [#/Vol] 2.55 10*6/uL Low 3.90-5.60 [facility] Comment on above: Performed By: #### C BC, BMP #### [facility] [address] [place] [phone] [place] WBC (Bld) [#/Vol] 8.1 10*3/uL Normal 4.5-11.0 [facility] Comment on above: Performed By: #### C BC, BMP #### [facility] [address] [place] [phone] [place] Glucose Glucometer (BldC) [M ass/Vol]Ordered By: Gordon Smith on 09-14-2022 Glucose [Mass/Vol] 97 mg/dL [facility] Comment on above: Random Glucose Refer ence Range is dependent on time and content of last meal. Glucose of more than 200 mg/dL in a nonstressed, ambulatory subject supports the diagnosis of Diabetes Mellitus. Glucose Poct Glucometerson 1 11-14-2021 Commemt1 Glu2: Cleaned Meter [facility] Comment on above: Performed By: #### G LULS #### Point of Care testing , Commemt2 WILL NOTIFY DR/RN [facility] Comment on above: Result Comment: PERF ORMED BY: [place] [address] PATHOLOGIST ACTUARIAL CLERK XU TAPIA M.D. Performed By: #### G LULS #### Point of Care testing , Glucose [Mass/Vol] 97 mg/dL Normal [facility] Comment on above: Result Comment: [place] om Glucose Reference Range is dependent on time and content of last meal. Glucose of more than 200 mg/dL in a nonstressed, ambulatory subject supports the diagnosis of Diabetes Mellitus. Performed By: #### G LULS #### Point of Care testing , Commemt1 Glu2: Cleaned Meter [facility] Comment on above: Result Comment: PERF ORMED BY: [place] [address] PATHOLOGIST ACTUARIAL CLERK XU TAPIA M.D. Performed By: #### C MP, CBC, PAB #### [facility] [address] [place] [address] Glucose [Mass/Vol] 99 mg/dL Normal [facility] Comment on above: Result Comment: [place] om Glucose Reference Range is dependent on time and content of last meal. Glucose of more than 200 mg/dL in a nonstressed, ambulatory subject supports the diagnosis of Diabetes Mellitus. Performed By: #### C MP, CBC, PAB #### [facility] [address] [place] [address] No Panel InformationOrdered By: Gordon Smith on 09-14-2022 Bedside Glucose #[address]/rn [facility] Bedside Glucose Comment Glu2: cleaned meter [facility] Basic Metabolic Panelon 08-25 Anion gap [Moles/Vol] 9.3 mmol/L Normal 6.0-15.0 [facility] Comment on above: Performed By: #### G LULS #### Point of Care testing , Calcium [Mass/Vol] 7.9 mg/dL Low 8.2-10.2 [facility] Comment on above: Performed By: #### G LULS #### Point of Care testing , Chloride [Moles/Vol] 104 mmol/L Normal 95-114 [facility] Comment on above: Performed By: #### G LULS #### Point of Care testing , CO2 [Moles/Vol] 26.6 mmol/L Normal 22.0-30.0 [facility] Comment on above: Performed By: #### G LULS #### Point of Care testing , Creatinine [Mass/Vol] 0.84 mg/dL Normal 0.64-1.27 [facility] Comment on above: Performed By: #### G LULS #### Point of Care testing , Creatinine Clr Calc Pharmacy 97.66 [facility] Comment on above: Result Comment: PERF ORMED BY: [facility] [address] [address] PATHOLOGIST ACTUARIAL CLERK XU TAPIA M.D. Performed By: #### G LULS #### Point of Care testing , Estimated GFR ( Marie > 60 [facility] Comment on above: Result Comment: GFR estimated reference range: According to KDOQI guidelines, <60 ml/min/1.73m2 is sufficient to diagnose a patient with chronic kidney disease. Performed By: #### G LULS #### Point of Care testing , Estimated GFR (Non- Am > 60 [facility] Comment on above: Performed By: #### G LULS #### Point of Care testing , Glucose [Mass/Vol] 90 mg/dL Normal 70-100 [facility] Comment on above: Result Comment: [place] Glucose Reference Range is dependent on time and content of last meal. Glucose of more than 200 mg/dL in a nonstressed, ambulatory subject supports the diagnosis of Diabetes Mellitus. ADA recommended reference range Performed By: #### G LULS #### Point of Care testing , Potassium [Moles/Vol] 3.9 mmol/L Normal 3.5-5.1 [facility] Comment on above: Performed By: #### G LULS #### Point of Care testing , Sodium [Moles/Vol] 136 mmol/L Normal 136-146 [facility] Comment on above: Performed By: #### G LULS #### Point of Care testing , Urea nitrogen [Mass/Vol] 11 mg/dL Normal 9-23 [facility] Comment on above: Performed By: #### G LULS #### Point of Care testing , Complete Blood Count Auto Di ffon 09-13-2022 Basophils (Bld) [#/Vol] 0.1 10*3/uL Normal 0.0-0.2 [facility] Comment on above: Result Comment: PERF ORMED BY: [facility] [address] [address] PATHOLOGIST ACTUARIAL CLERK XU TAPIA M.D. Performed By: #### G LULS #### Point of Care testing , Basophils/100 WBC (Bld) 1.1 % Normal . [facility] Comment on above: Performed By: #### G LULS #### Point of Care testing , Eosinophils (Bld) [#/Vol] 0.4 10*3/uL Normal 0.0-0.45 [facility] Comment on above: Performed By: #### G LULS #### Point of Care testing , Eosinophils/100 WBC (Bld) 5.5 % Normal . [facility] Comment on above: Performed By: #### G LULS #### Point of Care testing , Erythrocyte distribution width (RBC) [Ratio] 15.9 % High 12.0-14.8 [facility] Comment on above: Performed By: #### G LULS #### Point of Care testing , Hematocrit (Bld) [Volume fraction] 26.2 % Low 38.8-50.0 [facility] Comment on above: Performed By: #### G HUGOLS #### Point of Care testing , Hemoglobin (Bld) [Mass/Vol] 8.6 g/dL Low 13.0-17.0 [facility] Comment on above: Performed By: #### G HUGOLS #### Point of Care testing , Lymphocytes (Bld) [#/Vol] 1.7 10*3/uL Normal 1.00-4.8 [facility] Comment on above: Performed By: #### G HUGOLS #### Point of Care testing , Lymphocytes/100 WBC (Bld) 21.1 % Normal . [facility] Comment on above: Performed By: #### G HUGOLS #### Point of Care testing , MCH (RBC) [Entitic mass] 31.4 pg Normal 27.5-35.2 [facility] Comment on above: Performed By: #### G HUGOLS #### Point of Care testing , MCV (RBC) [Entitic vol] 95.6 fL Normal 83.5-101 [facility] Comment on above: Performed By: #### G HUGOLS #### Point of Care testing , Mean Corpuscular HGB Conc 32.9 g/dL Normal 32.5-35.6 [facility] Comment on above: Performed By: #### G HUGOLS #### Point of Care testing , Monocytes (Bld) [#/Vol] 1.0 10*3/uL High 0.0-0.8 [facility] Comment on above: Performed By: #### G HUGOLS #### Point of Care testing , Monocytes/100 WBC (Bld) 12.0 % Normal . [facility] Comment on above: Performed By: #### G HUGOLS #### Point of Care testing , Neutrophils (Bld) [#/Vol] 4.9 10*3/uL Normal 1.8-7.7 [facility] Comment on above: Performed By: #### G HUGOLS #### Point of Care testing , Neutrophils/100 WBC (Bld) 60.3 % Normal . [facility] Comment on above: Performed By: #### G USMAN #### Point of Care testing , Nucleated RBC/100 WBC (Bld) [Ratio] 0.0 % Normal 0-0.5 [facility] Comment on above: Performed By: #### G HUGOLS #### Point of Care testing , Platelet mean volume (Bld) [Entitic vol] 8.4 fL Normal 6.6-10.1 [facility] Comment on above: Performed By: #### G HUGOLS #### Point of Care testing , Platelets (Bld) [#/Vol] 321 10*3/uL Normal 150-450 [facility] Comment on above: Performed By: #### G HUGOLS #### Point of Care testing , RBC (Bld) [#/Vol] 2.74 10*6/uL Low 3.90-5.60 [facility] Comment on above: Performed By: #### G USMAN #### Point of Care testing , WBC (Bld) [#/Vol] 8.1 10*3/uL Normal 4.5-11.0 [facility] Comment on above: Performed By: #### G USMAN #### Point of Care testing , Glucose Poct Glucometerson 1 11-13-2021 Commemt1 [facility] Comment on above: Result Comment: Glu2 : WILL NOTIFY DR/RN Performed By: #### G HUGOLS #### Point of Care testing , Commemt2 Cleaned Meter [facility] Comment on above: Result Comment: PERF ORMED BY: [facility] [address] [place] [address] PATHOLOGIST ACTUARIAL CLERK XU TAPIA M.D. Performed By: #### G HUGOLS #### Point of Care testing , Glucose [Mass/Vol] 88 mg/dL Normal [facility] Comment on above: Result Comment: [place] Glucose Reference Range is dependent on time and content of last meal. Glucose of more than 200 mg/dL in a nonstressed, ambulatory subject supports the diagnosis of Diabetes Mellitus. Performed By: #### G LULS #### Point of Care testing , Glucose [Mass/Vol] 99 mg/dL Normal [facility] Comment on above: Result Comment: [facility] Glucose Reference Range is dependent on time and content of last meal. Glucose of more than 200 mg/dL in a nonstressed, ambulatory subject supports the diagnosis of Diabetes Mellitus. PERFORMED BY: [place] [address] PATHOLOGIST ACTUARIAL CLERK XU TAPIA M.D. Performed By: #### G LUBRIAN #### Point of Care testing , Albumin [Mass/volume] in Ser um or PlasmaOrdered By: Gordon Smith on 09-12-2022 Albumin [Mass/Vol] 1.7 g/dL 3.2-5.5 [facility] Complete Blood Count Auto Di ffon 09-12-2022 Basophils (Bld) [#/Vol] 0.1 10*3/uL Normal 0.0-0.2 [facility] Comment on above: Result Comment: PERF ORMED BY: [facility] [address] [place] [address] PATHOLOGIST ACTUARIAL CLERK XU TAPIA M.D. Performed By: #### C MP, CBC, PAB #### [facility] [address] [place] [address] [place] Basophils/100 WBC (Bld) 1.2 % Normal . [facility] Comment on above: Performed By: #### C MP, CBC, PAB #### [facility] [address] [place] [address] [place] Eosinophils (Bld) [#/Vol] 0.3 10*3/uL Normal 0.0-0.45 [facility] Comment on above: Performed By: #### C MP, CBC, PAB #### [facility] [address] [place] [address] [place] Eosinophils/100 WBC (Bld) 4.6 % Normal . [facility] Comment on above: Performed By: #### C MP, CBC, PAB #### [facility] [address] [place] [address] [place] Erythrocyte distribution width (RBC) [Ratio] 15.9 % High 12.0-14.8 [facility] Comment on above: Performed By: #### C MP, CBC, PAB #### [address] Hematocrit (Bld) [Volume fraction] 23.6 % Low 38.8-50.0 [facility] Comment on above: Performed By: #### C MP, CBC, PAB #### [address] Hemoglobin (Bld) [Mass/Vol] 7.8 g/dL Low 13.0-17.0 [facility] Comment on above: Performed By: #### C MP, CBC, PAB #### [address] Lymphocytes (Bld) [#/Vol] 1.7 10*3/uL Normal 1.00-4.8 [facility] Comment on above: Performed By: #### C MP, CBC, PAB #### [address] Lymphocytes/100 WBC (Bld) 25.1 % Normal . [facility] Comment on above: Performed By: #### C MP, CBC, PAB #### [address] MCH (RBC) [Entitic mass] 31.3 pg Normal 27.5-35.2 [facility] Comment on above: Performed By: #### C MP, CBC, PAB #### [address] MCV (RBC) [Entitic vol] 94.6 fL Normal 83.5-101 [facility] Comment on above: Performed By: #### C MP, CBC, PAB #### [address] Mean Corpuscular HGB Conc 33.1 g/dL Normal 32.5-35.6 [facility] Comment on above: Performed By: #### C MP, CBC, PAB #### [address] [place] [address] [place] Monocytes (Bld) [#/Vol] 0.8 10*3/uL Normal 0.0-0.8 [facility] Comment on above: Performed By: #### C MP, CBC, PAB #### [facility] [address] [place] [address] [place] Monocytes/100 WBC (Bld) 12.0 % Normal . [facility] Comment on above: Performed By: #### C MP, CBC, PAB #### [facility] [address] [place] [address] [place] Neutrophils (Bld) [#/Vol] 3.8 10*3/uL Normal 1.8-7.7 [facility] Comment on above: Performed By: #### C MP, CBC, PAB #### [facility] [address] Neutrophils/100 WBC (Bld) 57.1 % Normal . [facility] Comment on above: Performed By: #### C MP, CBC, PAB #### [facility] [address] [place] [address] [place] Nucleated RBC/100 WBC (Bld) [Ratio] 0.0 % Normal 0-0.5 [facility] Comment on above: Performed By: #### C MP, CBC, PAB #### [facility] [address] Platelet mean volume (Bld) [Entitic vol] 8.6 fL Normal 6.6-10.1 [facility] Comment on above: Performed By: #### C MP, CBC, PAB #### [facility] [address] [place] [address] [place] Platelets (Bld) [#/Vol] 280 10*3/uL Normal 150-450 [facility] Comment on above: Performed By: #### C MP, CBC, PAB #### [facility] [address] [place] [address] [place] RBC (Bld) [#/Vol] 2.50 10*6/uL Low 3.90-5.60 [facility] Comment on above: Performed By: #### C MP, CBC, PAB #### [facility] [address] [place] [address] WBC (Bld) [#/Vol] 6.7 10*3/uL Normal 4.5-11.0 [facility] Comment on above: Performed By: #### C MP, CBC, PAB #### [facility] [address] [place] [address] Comprehensive Metabolic Pane carl 09-12-2022 Albumin [Mass/Vol] 1.7 g/dL Low 3.2-5.5 [facility] Comment on above: Performed By: #### C MP, CBC, PAB #### [facility] [address] [place] [address] Albumin/Globulin [Mass ratio] 0.8 {ratio} [facility] Comment on above: Performed By: #### C MP, CBC, PAB #### [facility] [address] [place] [address] ALP [Catalytic activity/Vol] 58 U/L Normal 32-92 [facility] Comment on above: Performed By: #### C MP, CBC, PAB #### [facility] [address] [place] [address] ALT [Catalytic activity/Vol] 15 U/L Normal 10-60 [facility] Comment on above: Performed By: #### C MP, CBC, PAB #### [facility] [address] [place] [address] Anion gap [Moles/Vol] 6.7 mmol/L Normal 6.0-15.0 [facility] Comment on above: Performed By: #### C MP, CBC, PAB #### [facility] [address] [place] [address] AST [Catalytic activity/Vol] 13 U/L Normal 10-42 [facility] Comment on above: Performed By: #### C MP, CBC, PAB #### [facility] [address] [place] [address] Bilirubin [Mass/Vol] 1.5 mg/dL High 0.3-1.2 [facility] Comment on above: Result Comment: Samp les from patients who have taken Naproxen have shown spurious elevation in Total Bilirubin levels. A metabolite of Naproxen, O-desmethylnaproxen, has been shown to interfere with the Jendrassik-Grof method for measuring Total Bilirubin. Performed By: #### C MP, CBC, PAB #### [facility] [address] Calcium [Mass/Vol] 7.6 mg/dL Low 8.2-10.2 [facility] Comment on above: Performed By: #### C MP, CBC, PAB #### [facility] [address] Chloride [Moles/Vol] 105 mmol/L Normal 95-114 [facility] Comment on above: Performed By: #### C MP, CBC, PAB #### [facility] [address] CO2 [Moles/Vol] 30.2 mmol/L High 22.0-30.0 [facility] Comment on above: Performed By: #### C MP, CBC, PAB #### [facility] [address] Creatinine [Mass/Vol] 0.90 mg/dL Normal 0.64-1.27 [facility] Comment on above: Performed By: #### C MP, CBC, PAB #### [facility] [address] [place] [address] [place] Creatinine Clr Calc Pharmacy 91.15 [facility] Comment on above: Performed By: #### C MP, CBC, PAB #### [facility] [address] Estimated GFR ( Marie > 60 [facility] Comment on above: Result Comment: GFR estimated reference range: According to KDOQI guidelines, <60 ml/min/1.73m2 is sufficient to diagnose a patient with chronic kidney disease. Performed By: #### C MP, CBC, PAB #### [facility] [address] Estimated GFR (Non- Am > 60 [facility] Comment on above: Performed By: #### C MP, CBC, PAB #### [facility] [address] Globulin (S) [Mass/Vol] 2.2 g/dL Normal [facility] Comment on above: Performed By: #### C MP, CBC, PAB #### [facility] [address] Glucose [Mass/Vol] 84 mg/dL Normal 70-100 [facility] Comment on above: Result Comment: [facility] Glucose Reference Range is dependent on time and content of last meal. Glucose of more than 200 mg/dL in a nonstressed, ambulatory subject supports the diagnosis of Diabetes Mellitus. ADA recommended reference range Performed By: #### C MP, CBC, PAB #### [facility] [address] Potassium [Moles/Vol] 3.9 mmol/L Normal 3.5-5.1 [facility] Comment on above: Performed By: #### C MP, CBC, PAB #### [facility] [address] Protein [Mass/Vol] 3.9 g/dL Low 6.1-7.9 [facility] Comment on above: Performed By: #### C MP, CBC, PAB #### [facility] [address] Sodium [Moles/Vol] 138 mmol/L Normal 136-146 [facility] Comment on above: Performed By: #### C MP, CBC, PAB #### [facility] [address] [place] [address] [place] Urea nitrogen [Mass/Vol] 15 mg/dL Normal 9-23 [facility] Comment on above: Performed By: #### C MP, CBC, PAB #### [facility] [address] Globulin Calc (S) [Mass/Vol] Ordered By: Gordon Smith on 09-12-2022 Globulin (S) [Mass/Vol] 2.2 g/dL [facility] Glucose Poct Glucometerson 1 11-12-2021 Commemt1 Glu2: Cleaned Meter Normal [facility] Comment on above: Result Comment: PERF ORMED BY: [address] [address] PATHOLOGIST ACTUARIAL CLERK XU TAPIA M.D. Performed By: #### G LULS #### Point of Care testing , Glucose [Mass/Vol] 135 mg/dL Normal [facility] Comment on above: Result Comment: [place] [facility] Glucose Reference Range is dependent on time and content of last meal. Glucose of more than 200 mg/dL in a nonstressed, ambulatory subject supports the diagnosis of Diabetes Mellitus. Performed By: #### G LULS #### Point of Care testing , Glucose [Mass/Vol] 96 mg/dL Normal [facility] Comment on above: Result Comment: [place] [facility] Glucose Reference Range is dependent on time and content of last meal. Glucose of more than 200 mg/dL in a nonstressed, ambulatory subject supports the diagnosis of Diabetes Mellitus. PERFORMED BY: [address] [address] PATHOLOGIST ACTUARIAL CLERK XU TAPIA M.D. Performed By: #### C MP, CBC, PAB #### [facility] [address] [place] [address] [place] Prealbuminon 09-12-2022 Prealbumin [Mass/Vol] 9.3 mg/dL Low 18.0-38.0 [facility] Comment on above: Result Comment: PERF ORMED BY: [address] [address] PATHOLOGIST ACTUARIAL CLERK XU TAPIA M.D. Performed By: #### C MP, CBC, PAB #### [facility] [address] [place] [address] [place] Protein [Mass/volume] in Ser um or PlasmaOrdered By: Gordon Smith on 09-12-2022 Protein [Mass/Vol] 3.9 g/dL 6.1-7.9 [facility] Serum or plasma alanine lomax otransferase measurement without P-5'-P (enzymatic activiOrdered By: Gordon Smith on 09-12-2022 ALT No additional P-5'-P [Catalytic activity/Vol] 15 U/L 10-60 [facility] Serum or plasma albumin/glob ulin mass ratioOrdered By: Gordon Smith on 09-12-2022 Albumin/Globulin [Mass ratio] 0.8 {ratio} [facility] Serum or plasma alkaline alicia sphatase measurement (enzymatic activity/volume)Ordered By: Gordon Smith on 09-12-2022 ALP [Catalytic activity/Vol] 58 U/L 32-92 [facility] Serum or plasma aspartate am inotransferase measurement (enzymatic activity/volume)Ordered By: Gordon Smith on 09-12-2022 AST [Catalytic activity/Vol] 13 U/L 10-42 [facility] Serum or plasma prealbumin m easurement (mass/volume)Ordered By: Gordon Smith on 09-12-2022 Prealbumin [Mass/Vol] 9.3 mg/dL 18.0-38.0 [facility] Serum or plasma total biliru bin measurement (mass/volume)Ordered By: Gordon Smith on 09-12-2022 Bilirubin [Mass/Vol] 1.5 mg/dL 0.3-1.2 [facility] Comment on above: Samples from patient s who have taken Naproxen have shown spurious elevation in Total Bilirubin levels. A metabolite of Naproxen, O-desmethylnaproxen, has been shown to interfere with the Jenfrediik-Brennan method for measuring Total Bilirubin. Glucose Poct Glucometerson 1 11-11-2021 Glucose [Mass/Vol] 90 mg/dL Normal [facility] Comment on above: Result Comment: [facility] Glucose Reference Range is dependent on time and content of last meal. Glucose of more than 200 mg/dL in a nonstressed, ambulatory subject supports the diagnosis of Diabetes Mellitus. PERFORMED BY: [facility] [address] [place] [address] PATHOLOGIST ACTUARIAL CLERK XU TAPIA M.D. Performed By: #### G LULS #### Point of Care testing , Basic Metab w/rfx MGon 09-10 Anion gap [Moles/Vol] 5 mmol/L Low 9-17 [facility] Comment on above: Performed By: #### I OCAL, CDP, MG, LACTIC, ALIICA, BNP, BMP #### [address] [address] Online Services Manager: Bret Vazquez MD Performed By: #### E RTKLARISSA HIGGINSEG #### [address] [address] Online Services Manager: Bret Vazquez MD Calcium [Mass/Vol] 7.8 mg/dL Low 8.6-10.4 [facility] Comment on above: Performed By: #### I OCAL, CDP, MG, LACTIC, ALICIA, BNP, BMP #### [address] [address] Online Services Manager: Bret Vazquez MD Performed By: #### Isidro RTKLARISSA HIGGINSEG #### [address] [address] Online Services Manager: Bret Vazquez MD Chloride [Moles/Vol] 105 mmol/L Normal 98-107 [facility] Comment on above: Performed By: #### I OCAL, CDP, MG, LACTIC, ALICIA, BNP, BMP #### [address] [address] Online Services Manager: Bret Vazquez MD Performed By: #### E RTKLARISSA HIGGINSEG #### [address] [address] Online Services Manager: Bret Vazquez MD CO2 [Moles/Vol] 24 mmol/L Normal 20-31 [facility] Comment on above: Performed By: #### I OCAL, CDP, MG, LACTIC, ALICIA, BNP, BMP #### [address] [address] Online Services Manager: Bret Vazquez MD Performed By: #### E RTRANDOLPH HIGGINSLTEG #### [address] [address] Online Services Manager: Bret Vazquez MD Creatinine [Mass/Vol] 0.77 mg/dL Normal 0.70-1.20 [facility] Comment on above: Performed By: #### I OCAL, CDP, MG, LACTIC, ALICIA, BNP, BMP #### [address] [address] Online Services Manager: Bret Vazquez MD Performed By: #### E RTKLARISSA HIGGINSEG #### [address] [address] Online Services Manager: Bret Vazquez MD GFR/1.73 sq M.predicted among non-blacks MDRD (S/P/Bld) [Vol rate/Area] mL/min/{1.73_m2} Normal >60 [facility] Comment on above: Result Comment: Effective [...] CDP, MG, LACTIC, ALICIA, BNP, BMP #### [address] [address] Online Services Manager: Bret Vazquez MD Performed By: #### E RTKLARISSA HIGGINSEG #### [address] [address] Online Services Manager: Bret Vazquez MD Glucose [Mass/Vol] 85 mg/dL Normal 70-99 [facility] Comment on above: Performed By: #### I OCAL, CDP, MG, LACTIC, ALICIA, BNP, BMP #### [facility] [address] [place] [address] Online Services Manager: Bret Vazquez MD Performed By: #### Isidro RTCHRISTY HIGGINS #### [address] [address] Online Services Manager: Bret Vazquez MD Potassium [Moles/Vol] 4.4 mmol/L Normal 3.7-5.3 [facility] Comment on above: Performed By: #### I OCAL, CDP, MG, LACTIC, ALICIA, BNP, BMP #### [address] [address] Online Services Manager: Bret Vazquez MD Performed By: #### Isidro RTCHRISTY HIGGINS #### [address] [address] Online Services Manager: Bret Vazquez MD Sodium [Moles/Vol] 134 mmol/L Low 135-144 [facility] Comment on above: Performed By: #### I OCAL, CDP, MG, LACTIC, ALICIA, BNP, BMP #### [address] [address] Online Services Manager: Bret Vazquez MD Performed By: #### Isidro RTCHRISTY HIGGINS #### [address] [address] Online Services Manager: Bret Vazquez MD Urea nitrogen [Mass/Vol] 17 mg/dL Normal 8-23 [facility] Comment on above: Performed By: #### I OCAL, CDP, MG, LACTIC, ALICIA, BNP, BMP #### [facility] [address] [place] [address] Online Services Manager: Bret Vazquez MD Performed By: #### E RTCHRISTY HIGGINS #### [address] [address] Online Services Manager: Bret Vazquez MD CBC with Diffon 09-10-2022 Abs. Basophil 0.06 k/uL Normal 0.00-0.20 [facility] Comment on above: Performed By: #### I OCAL, CDP, MG, LACTIC, ALICIA, BNP, BMP #### [address] [address] Online Services Manager: Bret Vazquez MD Performed By: #### E RTPFCHRISTY #### [address] [address] Online Services Manager: Bret Vazquez MD Abs.Imm.Granulocyte 0.04 k/uL Normal 0.00-0.30 [facility] Comment on above: Performed By: #### I OCAL, CDP, MG, LACTIC, ALICIA, BNP, BMP #### [address] [address] Online Services Manager: Bret Vazquez MD Performed By: #### Isidro RTCHRISTY HIGGINS #### [address] [address] Online Services Manager: Bret Vazquez MD Abs.Neutrophil (Seg) 3.45 k/uL Normal 1.50-8.10 [facility] Comment on above: Performed By: #### I OCAL, CDP, MG, LACTIC, ALICIA, BNP, BMP #### [address] [address] Online Services Manager: Bret Vazquez MD Performed By: #### E RTCHRISTY HIGGINS #### [facility] [address] [place] [address] Online Services Manager: Bret Vazquez MD Basophils/100 WBC (Bld) 1 % Normal 0-2 [facility] Comment on above: Performed By: #### I OCAL, CDP, MG, LACTIC, ALICIA, BNP, BMP #### [address] [address] Online Services Manager: Bret Vazquez MD Performed By: #### E RTKLARISSA HIGGINSEG #### [address] [address] Online Services Manager: Bret Vazquez MD Eosinophils (Bld) [#/Vol] 0.36 10*3/uL Normal 0.00-0.44 [facility] Comment on above: Performed By: #### I OCAL, CDP, MG, LACTIC, ALICIA, BNP, BMP #### [facility] [address] [place] [address] Online Services Manager: Bret Vazquez MD Performed By: #### E RTKLARISSA HIGGINSEG #### [address] [address] Online Services Manager: Bret Vazquez MD Eosinophils/100 WBC (Bld) 6 % High 1-4 [facility] Comment on above: Performed By: #### I OCAL, CDP, MG, LACTIC, ALICIA, BNP, BMP #### [address] [address] Online Services Manager: Bret Vazquez MD Performed By: #### Isidro RTCHRISTY HIGGINS #### [address] [address] Online Services Manager: Bret Vazquez MD Erythrocyte distribution width (RBC) [Ratio] 15.8 % High 11.8-14.4 [facility] Comment on above: Performed By: #### I OCAL, CDP, MG, LACTIC, ALICIA, BNP, BMP #### [facility] [address] [place] [address] Online Services Manager: Bret Vazquez MD Performed By: #### E RTKLARISSA HIGGINSEG #### [facility] [address] [place] [address] Online Services Manager: Bret Vazquez MD Hematocrit (Bld) [Volume fraction] 25.2 % Low 40.7-50.3 [facility] Comment on above: Performed By: #### I OCAL, CDP, MG, LACTIC, ALICIA, BNP, BMP #### [address] [address] Online Services Manager: Bret Vazquez MD Performed By: #### E RTCHRISTY HIGGINS #### [address] [address] Online Services Manager: Bret Vazquez MD Hemoglobin (Bld) [Mass/Vol] 7.6 g/dL Low 13.0-17.0 [facility] Comment on above: Performed By: #### I OCAL, CDP, MG, LACTIC, ALICIA, BNP, BMP #### [address] [address] Online Services Manager: Bret Vazquez MD Performed By: #### Isidro RTCHRISTY HIGGINS #### [address] [address] Online Services Manager: Bret Vazquez MD Immature granulocytes/100 WBC (Bld) 1 % High 0 [facility] Comment on above: Performed By: #### I OCAL, CDP, MG, LACTIC, ALICIA, BNP, BMP #### [address] [address] Online Services Manager: Bret Vazquez MD Performed By: #### CHRISTY MOJICA #### [address] [address] Online Services Manager: Bret Vazquez MD Lymphocytes (Bld) [#/Vol] 2.01 10*3/uL Normal 1.10-3.70 [facility] Comment on above: Performed By: #### I OCAL, CDP, MG, LACTIC, ALICIA, BNP, BMP #### [address] [address] Online Services Manager: Bret Vazquez MD Performed By: #### E RTPFKLARISSAEG #### [address] [address] Online Services Manager: Bret Vazquez MD Lymphocytes/100 WBC (Bld) 31 % Normal 24-43 [facility] Comment on above: Performed By: #### I OCAL, CDP, MG, LACTIC, ALICIA, BNP, BMP #### [address] [address] Online Services Manager: Bret Vazquez MD Performed By: #### E RTPKLARISSA GoldenEG #### [address] [address] Online Services Manager: Bret Vazquez MD MCH (RBC) [Entitic mass] 31.7 pg Normal 25.2-33.5 [facility] Comment on above: Performed By: #### I OCAL, CDP, MG, LACTIC, ALICIA, BNP, BMP #### [address] [address] Online Services Manager: Bret Vazquez MD Performed By: #### E RTCHRISTY HIGGINS #### [address] [address] Online Services Manager: Bret Vazquez MD MCHC (RBC) [Mass/Vol] 30.2 g/dL Normal 28.4-34.8 [facility] Comment on above: Performed By: #### I OCAL, CDP, MG, LACTIC, ALICIA, BNP, BMP #### [address] [address] Online Services Manager: Bret Vazquez MD Performed By: #### E RTBakariFKLARISSAEG #### [address] [address] Online Services Manager: Bret Vazquez MD MCV (RBC) [Entitic vol] 105.0 fL High 82.6-102.9 M [facility] Comment on above: Performed By: #### I OCAL, CDP, MG, LACTIC, ALICIA, BNP, BMP #### [address] [address] Online Services Manager: Bret Vazquez MD Performed By: #### E RTPKLARISSA GoldenEG #### [address] [address] Online Services Manager: Bret Vazquez MD Monocytes (Bld) [#/Vol] 0.62 10*3/uL Normal 0.10-1.20 [facility] Comment on above: Performed By: #### I OCAL, CDP, MG, LACTIC, ALICIA, BNP, BMP #### [address] [address] Online Services Manager: Bret Vazquez MD Performed By: #### E RTKLARISSA HIGGINSEG #### [address] [address] Online Services Manager: Bret Vazquez MD Monocytes/100 WBC (Bld) 10 % Normal 3-12 M [facility] Comment on above: Performed By: #### I OCAL, CDP, MG, LACTIC, ALICIA, BNP, BMP #### [address] [address] Online Services Manager: Bret Vazquez MD Performed By: #### E RTKLARISSA HIGGINSEG #### [address] [address] Online Services Manager: Bret Vazquez MD Neutrophil (Seg) 53 % Normal 36-65 [facility] Comment on above: Performed By: #### I OCAL, CDP, MG, LACTIC, ALICIA, BNP, BMP #### [address] [address] Online Services Manager: Bret Vazquez MD Performed By: #### E RTPKLARISSA GoldenEG #### [address] [address] Online Services Manager: Bret Vazquez MD NRBC Automated 0.0 per 100 WBC Normal 0.0 [facility] Comment on above: Performed By: #### I OCAL, CDP, MG, LACTIC, ALICIA, BNP, BMP #### [address] [address] Online Services Manager: Bret Vazquez MD Performed By: #### E RTPFRANDOLPHLTEG #### [address] [address] Online Services Manager: Bret Vazquez MD Platelet mean volume (Bld) [Entitic vol] 10.3 fL Normal 8.1-13.5 [facility] Comment on above: Performed By: #### I OCAL, CDP, MG, LACTIC, ALICIA, BNP, BMP #### [address] [address] Online Services Manager: Bret Vazquez MD Performed By: #### E RTKLARISSA HIGGINSEG #### [address] [address] Online Services Manager: Bret Vazquez MD Platelets (Bld) [#/Vol] 245 10*3/uL Normal 138-453 [facility] Comment on above: Performed By: #### I OCAL, CDP, MG, LACTIC, ALICIA, BNP, BMP #### [address] [address] Online Services Manager: Bret Vazquez MD Performed By: #### E RTPFKLARISSAEG #### [address] [address] Online Services Manager: Bret Vazquez MD RBC (Bld) [#/Vol] 2.40 10*6/uL Low 4.21-5.77 [facility] Comment on above: Performed By: #### I OCAL, CDP, MG, LACTIC, ALICIA, BNP, BMP #### [address] [address] Online Services Manager: Bret Vazquez MD Performed By: #### E RTPKLARISSA GoldenEG #### [address] [address] Online Services Manager: Bret Vazquez MD RBC morphology finding Nom (Bld) ANISOCYTOSIS PRESENT Normal [facility] Comment on above: Result Comment: MACR OCYTOSIS PRESENT Performed By: #### I OCAL, CDP, MG, LACTIC, ALICIA, BNP, BMP #### [address] [address] Online Services Manager: Bret Vazquez MD Performed By: #### E RTKLARISSA HIGGINSEG #### [address] [address] Online Services Manager: Bret Vazquez MD WBC (Bld) [#/Vol] 6.5 10*3/uL Normal 3.5-11.3 [facility] Comment on above: Performed By: #### I OCAL, CDP, MG, LACTIC, ALICIA, BNP, BMP #### [address] [address] Online Services Manager: Bret Vazquez MD Performed By: #### E RTKLARISSA HIGGINSEG #### [address] [address] Online Services Manager: Bret Vazquez MD Basic Metab w/rfx MGon 09-09 Anion gap [Moles/Vol] 6 mmol/L Low - [facility] Comment on above: Performed By: #### B MPX, CDP #### [facility] [address] [place] [address] Online Services Manager: Bret Vazquez MD Performed By: #### E RTPF, CK, ECENZ, VD25 #### [address] [address] Online Services Manager: Bret Vazquez MD Calcium [Mass/Vol] 7.5 mg/dL Low 8.6-10.4 [facility] Comment on above: Performed By: #### B MPX, CDP #### [facility] [address] [place] [address] Online Services Manager: Bret Vazquez MD Performed By: #### E RTPF, CK, ECENZ, VD25 #### [facility] [address] [place] [address] Online Services Manager: Bret Vazquez MD Chloride [Moles/Vol] 109 mmol/L High 98-107 [facility] Comment on above: Performed By: #### B MPX, CDP #### [facility] [address] [place] [address] Online Services Manager: Bret Vazquez MD Performed By: #### E RTPF, CK, ECENZ, VD25 #### [facility] [address] [place] [address] Online Services Manager: Bret Vazquez MD CO2 [Moles/Vol] 25 mmol/L Normal 20-31 [facility] Comment on above: Performed By: #### B MPX, CDP #### [facility] [address] [place] [address] Online Services Manager: Bret Vazquez MD Performed By: #### E RTPF, CK, ECENZ, VD25 #### [facility] [address] [place] [address] Online Services Manager: Bret Vazquez MD Creatinine [Mass/Vol] 0.63 mg/dL Low 0.70-1.20 [facility] Comment on above: Performed By: #### B MPX, CDP #### [facility] [address] [place] [address] Online Services Manager: Bret Vazquez MD Performed By: #### E RTPF, CK, ECENZ, VD25 #### [place] [address] Online Services Manager: Bret Vazquez MD GFR/1.73 sq M.predicted among non-blacks MDRD (S/P/Bld) [Vol rate/Area] mL/min/{1.73_m2} Normal >60 [facility] Comment on above: Result Comment: Effective [...] Performed By: #### B MPX, CDP #### [place] [address] Online Services Manager: Bret Vazquez MD Performed By: #### E RTPF, CK, ECENZ, VD25 #### [facility] [address] [place] [address] Online Services Manager: Bret Vazquez MD Glucose [Mass/Vol] 88 mg/dL Normal 70-99 [facility] Comment on above: Performed By: #### B MPX, CDP #### [place] [address] Online Services Manager: Bret Vazquez MD Performed By: #### E RTPF, CK, ECENZ, VD25 #### [facility] [address] [place] [address] Online Services Manager: Bret Vazquez MD Potassium [Moles/Vol] 4.3 mmol/L Normal 3.7-5.3 [facility] Comment on above: Performed By: #### B MPX, CDP #### [facility] [address] [place] [address] Online Services Manager: Bret Vazquez MD Performed By: #### E RTPF, CK, ECENZ, VD25 #### [facility] [address] [place] [address] Online Services Manager: Bret Vazquez MD Sodium [Moles/Vol] 140 mmol/L Normal 135-144 [facility] Comment on above: Performed By: #### B MPX, CDP #### [facility] [address] [place] [address] Online Services Manager: Bret Vazquez MD Performed By: #### E RTPF CK, ECENZ, VD25 #### [address] [address] Online Services Manager: Bret Vazquez MD Urea nitrogen [Mass/Vol] 16 mg/dL Normal 8-23 [facility] Comment on above: Performed By: #### B MPX, CDP #### [facility] [address] [place] [address] Online Services Manager: Bret Vazquez MD Performed By: #### E RTPF CK ECENZ, VD25 #### [facility] [address] [place] [address] Online Services Manager: Bret Vazquez MD CBC with Diffon 09-09-2022 Abs. Basophil 0.09 k/uL Normal 0.00-0.20 [facility] Comment on above: Performed By: #### B MPX, CDP #### [facility] [address] [place] [address] Online Services Manager: Bret Vazquez MD Performed By: #### E RTPF, CK, ECENZ, VD25 #### [facility] [address] [place] [address] Online Services Manager: Bret Vazquez MD Abs.Imm.Granulocyte 0.03 k/uL Normal 0.00-0.30 [facility] Comment on above: Performed By: #### B MPX, CDP #### [place] [address] Online Services Manager: Bret Vazquez MD Performed By: #### E RTPF, CK, ECENZ, VD25 #### [place] [address] Online Services Manager: Bret Vazquez MD Abs.Neutrophil (Seg) 4.61 k/uL Normal 1.50-8.10 [facility] Comment on above: Performed By: #### B MPX, CDP #### [place] [address] Online Services Manager: Bret Vazquez MD Performed By: #### E RTPF, CK, ECENZ, VD25 #### [place] [address] Online Services Manager: Bret Vazquez MD Basophils/100 WBC (Bld) 1 % Normal 0-2 M [facility] Comment on above: Performed By: #### B MPX, CDP #### [place] [address] Online Services Manager: Bret Vazquez MD Performed By: #### E RTPF, CK, ECENZ, VD25 #### [place] [address] Online Services Manager: Bret Vazquez MD Eosinophils (Bld) [#/Vol] 0.40 10*3/uL Normal 0.00-0.44 [facility] Comment on above: Performed By: #### B MPX, CDP #### [place] [address] Online Services Manager: Bret Vazquez MD Performed By: #### E RTPF, CK, ECENZ, VD25 #### [place] [address] Online Services Manager: Bret Vazquez MD Eosinophils/100 WBC (Bld) 5 % High 1-4 [facility] Comment on above: Performed By: #### B MPX, CDP #### [facility] [address] [place] [address] Online Services Manager: Bret Vazquez MD Performed By: #### E RTPF, CK, ECENZ, VD25 #### [facility] [address] [place] [address] Online Services Manager: Bret Vazquez MD Erythrocyte distribution width (RBC) [Ratio] 16.2 % High 11.8-14.4 [facility] Comment on above: Performed By: #### B MPX, CDP #### [facility] [address] [place] [address] Online Services Manager: Bret Vazquez MD Performed By: #### E RTPF, CK, ECENZ, VD25 #### [facility] [address] [place] [address] Online Services Manager: Bret Vazquez MD Hematocrit (Bld) [Volume fraction] 22.3 % Low 40.7-50.3 [facility] Comment on above: Performed By: #### B MPX, CDP #### [facility] [address] [place] [address] Online Services Manager: Bret Vazquez MD Performed By: #### E RTPF, CK, ECENZ, VD25 #### [facility] [address] [place] [address] Online Services Manager: Bret Vazquez MD Hemoglobin (Bld) [Mass/Vol] 7.5 g/dL Low 13.0-17.0 [facility] Comment on above: Performed By: #### B MPX, CDP #### [facility] [address] [place] [address] Online Services Manager: Bret Vazquez MD Performed By: #### E RTPF, CK, ECENZ, VD25 #### [address] [address] Online Services Manager: Bret Vazquez MD Immature granulocytes/100 WBC (Bld) 0 % Normal 0 [facility] Comment on above: Performed By: #### B MPX, CDP #### [place] [address] Online Services Manager: Bret Vazquez MD Performed By: #### E RTPF, CK, ECENZ, VD25 #### [address] [address] Online Services Manager: Bret Vazquez MD Lymphocytes (Bld) [#/Vol] 1.88 10*3/uL Normal 1.10-3.70 [facility] Comment on above: Performed By: #### B MPX, CDP #### [place] [address] Online Services Manager: Bret Vazquez MD Performed By: #### E RTPF, CK, ECENZ, VD25 #### [address] [address] Online Services Manager: Bret Vazquez MD Lymphocytes/100 WBC (Bld) 24 % Normal 24-43 [facility] Comment on above: Performed By: #### B MPX, CDP #### [address] [address] Online Services Manager: Bret Vazquez MD Performed By: #### E RTPF, CK, ECENZ, VD25 #### [facility] [address] [place] [address] Online Services Manager: Bret Vazquez MD MCH (RBC) [Entitic mass] 31.8 pg Normal 25.2-33.5 [facility] Comment on above: Performed By: #### B MPX, CDP #### [address] [address] Online Services Manager: Bret Vazquez MD Performed By: #### E RTPF, CK, ECENZ, VD25 #### [address] [address] Online Services Manager: Bret Vazquez MD MCHC (RBC) [Mass/Vol] 33.6 g/dL Normal 28.4-34.8 [facility] Comment on above: Performed By: #### B MPX, CDP #### [address] [address] Online Services Manager: Bret Vazquez MD Performed By: #### E RTPF, CK, ECENZ, VD25 #### [address] [address] Online Services Manager: Bret Vazquez MD MCV (RBC) [Entitic vol] 94.5 fL Normal 82.6-102.9 M [facility] Comment on above: Performed By: #### B MPX, CDP #### [address] [address] Online Services Manager: Bret Vazquez MD Performed By: #### E RTPF, CK, ECENZ, VD25 #### [address] [address] Online Services Manager: Bret Vazquez MD Monocytes (Bld) [#/Vol] 0.84 10*3/uL Normal 0.10-1.20 [facility] Comment on above: Performed By: #### B MPX, CDP #### [address] [address] Online Services Manager: Bret Vazquez MD Performed By: #### E RTPF, CK, ECENZ, VD25 #### [address] [address] Online Services Manager: Bret Vazquez MD Monocytes/100 WBC (Bld) 11 % Normal 3-12 M [facility] Comment on above: Performed By: #### B MPX, CDP #### [address] [address] Online Services Manager: Bret Vazquez MD Performed By: #### E RTPF, CK, ECENZ, VD25 #### [address] [address] Online Services Manager: Bret Vazquez MD Neutrophil (Seg) 59 % Normal 36-65 [facility] Comment on above: Performed By: #### B MPX, CDP #### [address] [address] Online Services Manager: Bret Vazquez MD Performed By: #### E RTPF, CK, ECENZ, VD25 #### [address] [address] Online Services Manager: Bret Vazquez MD NRBC Automated 0.0 per 100 WBC Normal 0.0 [facility] Comment on above: Performed By: #### B MPX, CDP #### [address] [address] Online Services Manager: Bret Vazquez MD Performed By: #### E RTPF, CK, ECENZ, VD25 #### [address] [address] Online Services Manager: Bret Vazquez MD Platelet mean volume (Bld) [Entitic vol] 10.5 fL Normal 8.1-13.5 [facility] Comment on above: Performed By: #### B MPX, CDP #### [address] [address] Online Services Manager: Bret Vazquez MD Performed By: #### E RTPF, CK, ECENZ, VD25 #### [address] [address] Online Services Manager: Bret Vazquez MD Platelets (Bld) [#/Vol] 185 10*3/uL Normal 138-453 [facility] Comment on above: Performed By: #### B MPX, CDP #### [address] [address] Online Services Manager: Bret Vazquez MD Performed By: #### E RTPF, CK, ECENZ, VD25 #### [address] [address] Online Services Manager: Bret Vazquez MD RBC (Bld) [#/Vol] 2.36 10*6/uL Low 4.21-5.77 [facility] Comment on above: Performed By: #### B MPX, CDP #### [address] [address] Online Services Manager: Bret Vazquez MD Performed By: #### E RTPF, CK, ECENZ, VD25 #### [address] [address] Online Services Manager: Bret Vazquez MD RBC morphology finding Nom (Bld) ANISOCYTOSIS PRESENT Normal [facility] Comment on above: Performed By: #### B MPX, CDP #### [address] [address] Online Services Manager: Bret Vazquez MD Performed By: #### E RTPF, CK, ECENZ, VD25 #### [address] [address] Online Services Manager: Bret Vazquez MD WBC (Bld) [#/Vol] 7.9 10*3/uL Normal 3.5-11.3 [facility] Comment on above: Performed By: #### B MPX, CDP #### [address] [address] Online Services Manager: Bret Vazquez MD Performed By: #### E RTPF, CK, ECENZ, VD25 #### [address] [address] Online Services Manager: Bret Vazquez MD Basic Metab w/rfx MGon 09-08 Anion gap [Moles/Vol] 4 mmol/L Low 9-17 [facility] Comment on above: Performed By: #### I OCAL, CDP, MG, LACTIC, ALICIA, BNP, BMP #### [address] [address] Online Services Manager: Bret Vazquez MD Performed By: #### E RTPF, CK, ECENZ, VD25 #### [address] [address] Online Services Manager: Bret Vazquez MD Calcium [Mass/Vol] 7.5 mg/dL Low 8.6-10.4 [facility] Comment on above: Performed By: #### I OCAL, CDP, MG, LACTIC, ALICIA, BNP, BMP #### [address] [address] Online Services Manager: Bret Vazquez MD Performed By: #### E RTPF, CK, ECENZ, VD25 #### [address] [address] Online Services Manager: Bret Vazquez MD Chloride [Moles/Vol] 105 mmol/L Normal 98-107 [facility] Comment on above: Performed By: #### I OCAL, CDP, MG, LACTIC, ALICIA, BNP, BMP #### [address] [address] Online Services Manager: Bret Vazquez MD Performed By: #### E RTPF, CK, ECENZ, VD25 #### [facility] [address] [place] [address] Online Services Manager: Bret Vazquez MD CO2 [Moles/Vol] 26 mmol/L Normal 20-31 [facility] Comment on above: Performed By: #### I OCAL, CDP, MG, LACTIC, ALICIA, BNP, BMP #### [address] [phone] Online Services Manager: Bret Vazquez MD Performed By: #### E RTPF, CK, ECENZ, VD25 #### [address] [phone] Online Services Manager: Bret Vazquez MD Creatinine [Mass/Vol] 0.80 mg/dL Normal 0.70-1.20 [facility] Comment on above: Performed By: #### I OCAL, CDP, MG, LACTIC, ALICIA, BNP, BMP #### [address] [phone] Online Services Manager: Bret Vazquez MD Performed By: #### E RTPF, CK, ECENZ, VD25 #### [address] [phone] Online Services Manager: Bret Vazquez MD GFR/1.73 sq M.predicted among non-blacks MDRD (S/P/Bld) [Vol rate/Area] mL/min/{1.73_m2} Normal >60 [facility] Comment on above: Result Comment: Effective [...] CDP, MG, LACTIC, ALICIA, BNP, BMP #### [address] [id number] Online Services Manager: Bret Vazquez MD Performed By: #### E RTPF, CK, ECENZ, VD25 #### [facility] [address] [place] [address] Online Services Manager: Bret Vazquez MD Glucose [Mass/Vol] 93 mg/dL Normal 70-99 [facility] Comment on above: Performed By: #### I OCAL, CDP, MG, LACTIC, ALICIA, BNP, BMP #### [facility] [address] [place] [address] Online Services Manager: Bret Vazquez MD Performed By: #### E RTPF, CK, ECENZ, VD25 #### [facility] [address] [place] [address] Online Services Manager: Bret Vazquez MD Potassium [Moles/Vol] 4.5 mmol/L Normal 3.7-5.3 [facility] Comment on above: Performed By: #### I OCAL, CDP, MG, LACTIC, ALICIA, BNP, BMP #### [facility] [address] [place] [address] Online Services Manager: Bret Vazquez MD Performed By: #### E RTPF, CK, ECENZ, VD25 #### [facility] [address] [place] [address] Online Services Manager: Bret Vazquez MD Sodium [Moles/Vol] 135 mmol/L Normal 135-144 [facility] Comment on above: Performed By: #### I OCAL, CDP, MG, LACTIC, ALICIA, BNP, BMP #### [facility] [address] [place] [address] Online Services Manager: Bret Vazquez MD Performed By: #### E RTPF, CK, ECENZ, VD25 #### [facility] [address] [place] [address] Online Services Manager: Bret Vazquez MD Urea nitrogen [Mass/Vol] 16 mg/dL Normal 8-23 [facility] Comment on above: Performed By: #### I OCAL, CDP, MG, LACTIC, ALICIA, BNP, BMP #### [address] [address] Online Services Manager: Bret Vazquez MD Performed By: #### E RTPF, CK, ECENZ, VD25 #### [address] [address] Online Services Manager: Bret Vazquez MD CBC with Diffon 09-08-2022 Abs. Basophil 0.04 k/uL Normal 0.00-0.20 [facility] Comment on above: Performed By: #### I OCAL, CDP, MG, LACTIC, ALICIA, BNP, BMP #### [address] [address] Online Services Manager: Bret Vazquez MD Performed By: #### E RTPF, CK, ECENZ, VD25 #### [address] [address] Online Services Manager: Bret Vazquez MD Abs.Imm.Granulocyte 0.03 k/uL Normal 0.00-0.30 [facility] Comment on above: Performed By: #### I OCAL, CDP, MG, LACTIC, ALICIA, BNP, BMP #### [address] [address] Online Services Manager: Bret Vazquez MD Performed By: #### E RTPF, CK, ECENZ, VD25 #### [facility] [address] [place] [address] Online Services Manager: Bret Vazquez MD Abs.Neutrophil (Seg) 4.96 k/uL Normal 1.50-8.10 [facility] Comment on above: Performed By: #### I OCAL, CDP, MG, LACTIC, ALICIA, BNP, BMP #### [address] [address] Online Services Manager: Bret Vazquez MD Performed By: #### E RTPF, CK, ECENZ, VD25 #### [place] [address] Online Services Manager: Bret Vazquez MD Basophils/100 WBC (Bld) 1 % Normal 0-2 [facility] Comment on above: Performed By: #### I OCAL, CDP, MG, LACTIC, ALICIA, BNP, BMP #### [place] [address] Online Services Manager: Bret Vazquez MD Performed By: #### E RTPF, CK, ECENZ, VD25 #### [place] [address] Online Services Manager: Bret Vazquez MD Eosinophils (Bld) [#/Vol] 0.21 10*3/uL Normal 0.00-0.44 [facility] Comment on above: Performed By: #### I OCAL, CDP, MG, LACTIC, ALICIA, BNP, BMP #### [place] [address] Online Services Manager: Bret Vazquez MD Performed By: #### E RTPF, CK, ECENZ, VD25 #### [place] [address] Online Services Manager: Bret Vazquez MD Eosinophils/100 WBC (Bld) 3 % Normal 1-4 [facility] Comment on above: Performed By: #### I OCAL, CDP, MG, LACTIC, ALICIA, BNP, BMP #### [place] [address] Online Services Manager: Bret Vazquez MD Performed By: #### E RTPF, CK, ECENZ, VD25 #### [place] [address] Online Services Manager: Bret Vazquez MD Erythrocyte distribution width (RBC) [Ratio] 16.4 % High 11.8-14.4 [facility] Comment on above: Performed By: #### I OCAL, CDP, MG, LACTIC, ALICIA, BNP, BMP #### [facility] [address] [place] [address] Online Services Manager: Bret Vazquez MD Performed By: #### E RTPF, CK, ECENZ, VD25 #### [facility] [address] [place] [address] Online Services Manager: Bret Vazquez MD Hematocrit (Bld) [Volume fraction] 22.9 % Low 40.7-50.3 [facility] Comment on above: Performed By: #### I OCAL, CDP, MG, LACTIC, ALICIA, BNP, BMP #### [facility] [address] [place] [address] Online Services Manager: Bret Vazquez MD Performed By: #### E RTPF, CK, ECENZ, VD25 #### [facility] [address] [place] [address] Online Services Manager: Bret Vazquez MD Hemoglobin (Bld) [Mass/Vol] 7.5 g/dL Low 13.0-17.0 [facility] Comment on above: Performed By: #### I OCAL, CDP, MG, LACTIC, ALICIA, BNP, BMP #### [facility] [address] [place] [address] Online Services Manager: Bret Vazquez MD Performed By: #### E RTPF, CK, ECENZ, VD25 #### [facility] [address] [place] [address] Online Services Manager: Bret Vazquez MD Immature granulocytes/100 WBC (Bld) 0 % Normal 0 [facility] Comment on above: Performed By: #### I OCAL, CDP, MG, LACTIC, ALICIA, BNP, BMP #### [facility] [address] [place] [address] Online Services Manager: Bret Vazquez MD Performed By: #### E RTPF, CK, ECENZ, VD25 #### [address] [address] Online Services Manager: Bret Vazquez MD Lymphocytes (Bld) [#/Vol] 1.39 10*3/uL Normal 1.10-3.70 [facility] Comment on above: Performed By: #### I OCAL, CDP, MG, LACTIC, ALICIA, BNP, BMP #### [facility] [address] [place] [address] Online Services Manager: Bret Vazquez MD Performed By: #### E RTPF, CK, ECENZ, VD25 #### [address] [address] Online Services Manager: Bret Vazquez MD Lymphocytes/100 WBC (Bld) 19 % Low 24-43 [facility] Comment on above: Performed By: #### I OCAL, CDP, MG, LACTIC, ALICIA, BNP, BMP #### [address] [address] Online Services Manager: Bret Vazquez MD Performed By: #### E RTPF, CK, ECENZ, VD25 #### [address] [address] Online Services Manager: Bret Vazquez MD MCH (RBC) [Entitic mass] 31.4 pg Normal 25.2-33.5 [facility] Comment on above: Performed By: #### I OCAL, CDP, MG, LACTIC, ALICIA, BNP, BMP #### [facility] [address] [place] [address] Online Services Manager: Bret Vazquez MD Performed By: #### E RTPF, CK, ECENZ, VD25 #### [facility] [address] [place] [address] Online Services Manager: Bret Vazquez MD MCHC (RBC) [Mass/Vol] 32.8 g/dL Normal 28.4-34.8 [facility] Comment on above: Performed By: #### I OCAL, CDP, MG, LACTIC, ALICIA, BNP, BMP #### [address] [address] Online Services Manager: Bret Vazquez MD Performed By: #### E RTPF, CK, ECENZ, VD25 #### [address] [address] Online Services Manager: Bret Vazquez MD MCV (RBC) [Entitic vol] 95.8 fL Normal 82.6-102.9 [facility] Comment on above: Performed By: #### I OCAL, CDP, MG, LACTIC, ALICIA, BNP, BMP #### [address] [address] Online Services Manager: Bret Vazquez MD Performed By: #### E RTPF, CK, ECENZ, VD25 #### [address] [address] Online Services Manager: Bret Vazquez MD Monocytes (Bld) [#/Vol] 0.88 10*3/uL Normal 0.10-1.20 [facility] Comment on above: Performed By: #### I OCAL, CDP, MG, LACTIC, ALICIA, BNP, BMP #### [address] [address] Online Services Manager: Bret Vazquez MD Performed By: #### E RTPF, CK, ECENZ, VD25 #### [address] [address] Online Services Manager: Bret Vazquez MD Monocytes/100 WBC (Bld) 12 % Normal 3-12 M [facility] Comment on above: Performed By: #### I OCAL, CDP, MG, LACTIC, ALICIA, BNP, BMP #### [address] [address] Online Services Manager: Bret Vazquez MD Performed By: #### E RTPF, CK, ECENZ, VD25 #### [address] [address] Online Services Manager: Bret Vazquez MD Neutrophil (Seg) 66 % High 36-65 [facility] Comment on above: Performed By: #### I OCAL, CDP, MG, LACTIC, ALICIA, BNP, BMP #### [address] [address] Online Services Manager: Bret Vazquez MD Performed By: #### E RTPF, CK, ECENZ, VD25 #### [address] [address] Online Services Manager: Bret Vazquez MD NRBC Automated 0.0 per 100 WBC Normal 0.0 [facility] Comment on above: Performed By: #### I OCAL, CDP, MG, LACTIC, ALICIA, BNP, BMP #### [address] [address] Online Services Manager: Bret Vazquez MD Performed By: #### E RTPF, CK, ECENZ, VD25 #### [facility] [address] [place] [address] Online Services Manager: Bret Vazquez MD Platelet mean volume (Bld) [Entitic vol] 10.8 fL Normal 8.1-13.5 [facility] Comment on above: Performed By: #### I OCAL, CDP, MG, LACTIC, ALICIA, BNP, BMP #### [facility] [address] [place] [address] Online Services Manager: Bret Vazquez MD Performed By: #### E RTPF, CK, ECENZ, VD25 #### [facility] [address] [place] [address] Online Services Manager: Bret Vazquez MD Platelets (Bld) [#/Vol] 162 10*3/uL Normal 138-453 [facility] Comment on above: Performed By: #### I OCAL, CDP, MG, LACTIC, ALICIA, BNP, BMP #### [address] [address] Online Services Manager: Bret Vazquez MD Performed By: #### E RTPF, CK, ECENZ, VD25 #### [address] [address] Online Services Manager: Bret Vazquez MD RBC (Bld) [#/Vol] 2.39 10*6/uL Low 4.21-5.77 [facility] Comment on above: Performed By: #### I OCAL, CDP, MG, LACTIC, ALICIA, BNP, BMP #### [place] [address] Online Services Manager: Bret Vazquez MD Performed By: #### E RTPF, CK, ECENZ, VD25 #### [place] [address] Online Services Manager: Bret Vazquez MD RBC morphology finding Nom (Bld) ANISOCYTOSIS PRESENT Normal [facility] Comment on above: Performed By: #### I OCAL, CDP, MG, LACTIC, ALICIA, BNP, BMP #### [address] [address] Online Services Manager: Bret Vazquez MD Performed By: #### E RTPF, CK, ECENZ, VD25 #### [facility] [address] [place] [address] Online Services Manager: Bret Vazquez MD WBC (Bld) [#/Vol] 7.5 10*3/uL Normal 3.5-11.3 [facility] Comment on above: Performed By: #### I OCAL, CDP, MG, LACTIC, ALICIA, BNP, BMP #### [facility] [address] [place] [address] Online Services Manager: Bret Vazquez MD Performed By: #### E RTPF, CK, ECENZ, VD25 #### [facility] [address] [place] [address] Online Services Manager: Bret Vazquez MD Magnesiumon 09-08-2022 Magnesium [Mass/Vol] 1.9 mg/dL Normal 1.6-2.6 [facility] Comment on above: Performed By: #### I OCAL, CDP, MG, LACTIC, ALICIA, BNP, BMP #### [facility] [address] [place] [address] Online Services Manager: Bret Vazquez MD Performed By: #### E RTPF, CK, ECENZ, VD25 #### [facility] [address] [place] [address] Online Services Manager: Bret Vazquez MD Basic Metab w/rfx MGon 09-07 Anion gap [Moles/Vol] 7 mmol/L Low 9-17 [facility] Comment on above: Performed By: #### I OCAL, CDP, MG, LACTIC, ALICIA, BNP, BMP #### [facility] [address] [place] [address] Online Services Manager: Bret Vazquez MD Performed By: #### E RTPF, CK, ECENZ, VD25 #### [facility] [address] [place] [address] Online Services Manager: Bret Vazquez MD Calcium [Mass/Vol] 7.7 mg/dL Low 8.6-10.4 [facility] Comment on above: Performed By: #### I OCAL, CDP, MG, LACTIC, ALICIA, BNP, BMP #### [facility] [address] [place] [address] Online Services Manager: Bret Vazquez MD Performed By: #### E RTPF, CK, ECENZ, VD25 #### [address] [address] Online Services Manager: Bret Vazquez MD Chloride [Moles/Vol] 103 mmol/L Normal 98-107 [facility] Comment on above: Performed By: #### I OCAL, CDP, MG, LACTIC, ALICIA, BNP, BMP #### [address] [address] Online Services Manager: Bret Vazquez MD Performed By: #### E RTPF, CK, ECENZ, VD25 #### [address] [address] Online Services Manager: Bret Vazquez MD CO2 [Moles/Vol] 22 mmol/L Normal 20-31 [facility] Comment on above: Performed By: #### I OCAL, CDP, MG, LACTIC, ALICIA, BNP, BMP #### [address] [address] Online Services Manager: Bret Vazquez MD Performed By: #### E RTPF, CK, ECENZ, VD25 #### [address] [address] Online Services Manager: Bret Vazquez MD Creatinine [Mass/Vol] 0.62 mg/dL Low 0.70-1.20 [facility] Comment on above: Performed By: #### I OCAL, CDP, MG, LACTIC, ALICIA, BNP, BMP #### [address] [address] Online Services Manager: Bret Vazquez MD Performed By: #### E RTPF, CK, ECENZ, VD25 #### [address] [address] Online Services Manager: Bret Vazquez MD GFR/1.73 sq M.predicted among non-blacks MDRD (S/P/Bld) [Vol rate/Area] mL/min/{1.73_m2} Normal >60 [facility] Comment on above: Result Comment: Effective [...] CDP, MG, LACTIC, ALICIA, BNP, BMP #### [address] [address] Online Services Manager: Bret Vazquez MD Performed By: #### E RTPF, CK, ECENZ, VD25 #### [address] [address] Online Services Manager: Bret Vazquez MD Glucose [Mass/Vol] 149 mg/dL High 70-99 [facility] Comment on above: Performed By: #### I OCAL, CDP, MG, LACTIC, ALICIA, BNP, BMP #### [address] [address] Online Services Manager: Bret Vazquez MD Performed By: #### E RTPF, CK, ECENZ, VD25 #### [address] [address] Online Services Manager: Bret Vazquez MD Potassium [Moles/Vol] 4.9 mmol/L Normal 3.7-5.3 [facility] Comment on above: Performed By: #### I OCAL, CDP, MG, LACTIC, ALICIA, BNP, BMP #### [address] [address] Online Services Manager: Bret Vazquez MD Performed By: #### E RTPF, CK, ECENZ, VD25 #### [address] [address] Online Services Manager: Bret Vazquez MD Sodium [Moles/Vol] 132 mmol/L Low 135-144 [facility] Comment on above: Performed By: #### I OCAL, CDP, MG, LACTIC, ALICIA, BNP, BMP #### [address] [address] Online Services Manager: Bret Vazquez MD Performed By: #### E RTPF, CK, ECENZ, VD25 #### [address] [address] Online Services Manager: Bret Vazquez MD Urea nitrogen [Mass/Vol] 13 mg/dL Normal 8-23 [facility] Comment on above: Performed By: #### I OCAL, CDP, MG, LACTIC, ALICIA, BNP, BMP #### [place] [address] Online Services Manager: Bret Vazquez MD Performed By: #### E RTPF, CK, ECENZ, VD25 #### [address] [address] Online Services Manager: Bret Vazquez MD CBC with Diffon 09-07-2022 Abs. Basophil <0.03 Normal 0.00-0.20 [facility] Comment on above: Performed By: #### I OCAL, CDP, MG, LACTIC, ALICIA, BNP, BMP #### [address] [address] Online Services Manager: Bret Vazquez MD Performed By: #### E RTPF, CK, ECENZ, VD25 #### [facility] [address] [place] [address] Online Services Manager: Bret Vazquez MD Abs. Eosinophil <0.03 Normal 0.00-0.44 [facility] Comment on above: Performed By: #### I OCAL, CDP, MG, LACTIC, ALICIA, BNP, BMP #### [address] [address] Online Services Manager: Bret Vazquez MD Performed By: #### E RTPF, CK, ECENZ, VD25 #### [address] [address] Online Services Manager: Bret Vzaquez MD Abs.Imm.Granulocyte 0.05 k/uL Normal 0.00-0.30 [facility] Comment on above: Performed By: #### I OCAL, CDP, MG, LACTIC, ALICIA, BNP, BMP #### [address] [address] Online Services Manager: Bret Vazquez MD Performed By: #### E RTPF, CK, ECENZ, VD25 #### [place] [address] Online Services Manager: Bret Vazquez MD Abs.Neutrophil (Seg) 7.23 k/uL Normal 1.50-8.10 [facility] Comment on above: Performed By: #### I OCAL, CDP, MG, LACTIC, ALICIA, BNP, BMP #### [place] [address] Online Services Manager: Bret Vazquez MD Performed By: #### E RTPF, CK, ECENZ, VD25 #### [place] [address] Online Services Manager: Bret Vazquez MD Basophils/100 WBC (Bld) 0 % Normal 0-2 M [facility] Comment on above: Performed By: #### I OCAL, CDP, MG, LACTIC, ALICIA, BNP, BMP #### [place] [address] Online Services Manager: Bret Vazquez MD Performed By: #### E RTPF, CK, ECENZ, VD25 #### [facility] [address] [place] [address] Online Services Manager: Bret Vazquez MD Eosinophils/100 WBC (Bld) 0 % Low 1-4 [facility] Comment on above: Performed By: #### I OCAL, CDP, MG, LACTIC, ALICIA, BNP, BMP #### [address] [address] Online Services Manager: Bret Vazquez MD Performed By: #### E RTPF, CK, ECENZ, VD25 #### [address] [address] Online Services Manager: Bret Vazquez MD Erythrocyte distribution width (RBC) [Ratio] 16.4 % High 11.8-14.4 [facility] Comment on above: Performed By: #### I OCAL, CDP, MG, LACTIC, ALICIA, BNP, BMP #### [address] [address] Online Services Manager: Bret Vazquez MD Performed By: #### E RTPF, CK, ECENZ, VD25 #### [place] [address] Online Services Manager: Bret Vazquez MD Hematocrit (Bld) [Volume fraction] 25.6 % Low 40.7-50.3 [facility] Comment on above: Performed By: #### I OCAL, CDP, MG, LACTIC, ALICIA, BNP, BMP #### [address] [address] Online Services Manager: Bret Vazquez MD Performed By: #### E RTPF, CK, ECENZ, VD25 #### [facility] [address] [place] [address] Online Services Manager: Bret Vazquez MD Hemoglobin (Bld) [Mass/Vol] 7.6 g/dL Low 13.0-17.0 [facility] Comment on above: Performed By: #### I OCAL, CDP, MG, LACTIC, ALICIA, BNP, BMP #### [facility] [address] [place] [address] Online Services Manager: Bret Vazquez MD Performed By: #### E RTPF, CK, ECENZ, VD25 #### [facility] [address] [place] [address] Online Services Manager: Bret Vazquez MD Immature granulocytes/100 WBC (Bld) 1 % High 0 [facility] Comment on above: Performed By: #### I OCAL, CDP, MG, LACTIC, ALICIA, BNP, BMP #### [facility] [address] [place] [address] Online Services Manager: Bret Vazquez MD Performed By: #### E RTPF, CK, ECENZ, VD25 #### [facility] [address] [place] [address] Online Services Manager: Bret Vazquez MD Lymphocytes (Bld) [#/Vol] 0.89 10*3/uL Low 1.10-3.70 [facility] Comment on above: Performed By: #### I OCAL, CDP, MG, LACTIC, ALICIA, BNP, BMP #### [facility] [address] [place] [address] Online Services Manager: Bret Vazquez MD Performed By: #### E RTPF, CK, ECENZ, VD25 #### [facility] [address] [place] [address] Online Services Manager: Bret Vazquez MD Lymphocytes/100 WBC (Bld) 10 % Low 24-43 [facility] Comment on above: Performed By: #### I OCAL, CDP, MG, LACTIC, ALICIA, BNP, BMP #### [facility] [address] [place] [address] Online Services Manager: Bret Vazquez MD Performed By: #### E RTPF, CK, ECENZ, VD25 #### [address] [address] Online Services Manager: Bret Vazquez MD MCH (RBC) [Entitic mass] 31.7 pg Normal 25.2-33.5 [facility] Comment on above: Performed By: #### I OCAL, CDP, MG, LACTIC, ALICIA, BNP, BMP #### [address] [address] Online Services Manager: Bret Vazquez MD Performed By: #### E RTPF, CK, ECENZ, VD25 #### [address] [address] Online Services Manager: Bret Vazquez MD MCHC (RBC) [Mass/Vol] 29.7 g/dL Normal 28.4-34.8 [facility] Comment on above: Performed By: #### I OCAL, CDP, MG, LACTIC, ALICIA, BNP, BMP #### [address] [address] Online Services Manager: Bret Vazquez MD Performed By: #### E RTPF, CK, ECENZ, VD25 #### [address] [address] Online Services Manager: Bret Vazquez MD MCV (RBC) [Entitic vol] 106.7 fL High 82.6-102.9 [facility] Comment on above: Performed By: #### I OCAL, CDP, MG, LACTIC, ALICIA, BNP, BMP #### [address] [address] Online Services Manager: Bret Vazquez MD Performed By: #### E RTPF, CK, ECENZ, VD25 #### [address] [address] Online Services Manager: Bret Vazquez MD Monocytes (Bld) [#/Vol] 1.00 10*3/uL Normal 0.10-1.20 [facility] Comment on above: Performed By: #### I OCAL, CDP, MG, LACTIC, ALICIA, BNP, BMP #### [address] [address] Online Services Manager: Bret Vazquez MD Performed By: #### E RTPF, CK, ECENZ, VD25 #### [address] [address] Online Services Manager: Bret Vazquez MD Monocytes/100 WBC (Bld) 11 % Normal 3-12 [facility] Comment on above: Performed By: #### I OCAL, CDP, MG, LACTIC, ALICIA, BNP, BMP #### [address] [address] Online Services Manager: Bret Vazquez MD Performed By: #### E RTPF, CK, ECENZ, VD25 #### [address] [address] Online Services Manager: Bret Vazquez MD Neutrophil (Seg) 79 % High 36-65 [facility] Comment on above: Performed By: #### I OCAL, CDP, MG, LACTIC, ALICIA, BNP, BMP #### [address] [address] Online Services Manager: Bret Vazquez MD Performed By: #### E RTPF, CK, ECENZ, VD25 #### [address] [address] Online Services Manager: Bret Vazquez MD NRBC Automated 0.0 per 100 WBC Normal 0.0 [facility] Comment on above: Performed By: #### I OCAL, CDP, MG, LACTIC, ALICIA, BNP, BMP #### [address] [address] Online Services Manager: Bret Vazquez MD Performed By: #### E RTPF, CK, ECENZ, VD25 #### [address] [address] Online Services Manager: Bret Vazquez MD Platelet mean volume (Bld) [Entitic vol] 10.7 fL Normal 8.1-13.5 [facility] Comment on above: Performed By: #### I OCAL, CDP, MG, LACTIC, ALICIA, BNP, BMP #### [address] [address] Online Services Manager: Bret Vazquez MD Performed By: #### E RTPF, CK, ECENZ, VD25 #### [address] [address] Online Services Manager: Bret Vazquez MD Platelets (Bld) [#/Vol] 206 10*3/uL Normal 138-453 [facility] Comment on above: Performed By: #### I OCAL, CDP, MG, LACTIC, ALICIA, BNP, BMP #### [address] [address] Online Services Manager: Bret Vazquez MD Performed By: #### E RTPF, CK, ECENZ, VD25 #### [address] [address] Online Services Manager: Bret Vazquez MD RBC (Bld) [#/Vol] 2.40 10*6/uL Low 4.21-5.77 [facility] Comment on above: Performed By: #### I OCAL, CDP, MG, LACTIC, ALICIA, BNP, BMP #### [address] [address] Online Services Manager: Bret Vazquez MD Performed By: #### E RTPF, CK, ECENZ, VD25 #### [facility] [address] [place] [address] Online Services Manager: Bret Vazquez MD RBC morphology finding Nom (Bld) ANISOCYTOSIS PRESENT Normal [facility] Comment on above: Result Comment: MACR OCYTOSIS PRESENT Performed By: #### I OCAL, CDP, MG, LACTIC, ALICIA, BNP, BMP #### [address] [address] Online Services Manager: Brte Vazquez MD Performed By: #### E RTPF, CK, ECENZ, VD25 #### [address] [address] Online Services Manager: Bret Vazquez MD WBC (Bld) [#/Vol] 9.2 10*3/uL Normal 3.5-11.3 [facility] Comment on above: Performed By: #### I OCAL, CDP, MG, LACTIC, ALICIA, BNP, BMP #### [address] [address] Online Services Manager: Bret Vazquez MD Performed By: #### E RTPF, CK, ECENZ, VD25 #### [address] [address] Online Services Manager: Bret Vazquez MD Hgb/Hcton 09-07-2022 Hematocrit (Bld) [Volume fraction] 22.7 % Low 40.7-50.3 [facility] Comment on above: Performed By: #### Jose R SAPP UAX, UMICAO #### [facility] [address] [place] [address] Online Services Manager: Bret Vazquez MD Performed By: #### H H #### [address] [address] Online Services Manager: Bret Vazquez MD Hemoglobin (Bld) [Mass/Vol] 6.9 g/dL Critically low 13.0-17.0 [facility] Comment on above: Performed By: #### D AU, UAX, UMICAO #### [facility] [address] [place] [address] Online Services Manager: Bret Vazquez MD Performed By: #### H H #### [address] [address] Online Services Manager: Bret Vazquez MD Hematocrit (Bld) [Volume fraction] 19.2 % Low 40.7-50.3 [facility] Comment on above: Performed By: #### B MPX, CDP #### [address] [address] Online Services Manager: Bret Vazquez MD Performed By: #### E RTPF, CK, ECENZ, VD25 #### [address] [address] Online Services Manager: Bret Vazquez MD Hemoglobin (Bld) [Mass/Vol] 6.2 g/dL Critically low 13.0-17.0 [facility] Comment on above: Performed By: #### B MPX, CDP #### [address] [address] Online Services Manager: Bret Vazquez MD Performed By: #### E RTPF, CK, ECENZ, VD25 #### [facility] [address] [place] [address] Online Services Manager: Bret Vazquez MD Magnesiumon 09-07-2022 Magnesium [Mass/Vol] 2.1 mg/dL Normal 1.6-2.6 [facility] Comment on above: Performed By: #### I OCAL, CDP, MG, LACTIC, ALICIA, BNP, BMP #### [address] [address] Online Services Manager: Bret Vazquez MD Performed By: #### E RTPF, CK, ECENZ, VD25 #### [facility] [address] [place] [address] Online Services Manager: Bret Vazquez MD XR CHEST PORTABLEon 09-07-20 [...] Bry Becker MD 09/07/22 Final result Normal [facility] Basic Metab w/rfx MGon 09-06 Anion gap [Moles/Vol] 9 mmol/L Normal 9-17 [facility] Comment on above: Performed By: #### GINI STARKS, SAMSONO #### [facility] [address] [place] [address] Online Services Manager: Bret Vazquez MD Performed By: ###CHRISTY EVERETT #### [facility] [address] [place] [address] Online Services Manager: Bret Vazquez MD Calcium [Mass/Vol] 7.4 mg/dL Low 8.6-10.4 [facility] Comment on above: Performed By: #### GINI STARKS, UMICAO #### [facility] [address] [place] [address] Online Services Manager: Bret Vazquez MD Performed By: #### CHRISTY MOJICA #### [facility] [address] [place] [address] Online Services Manager: Bret Vazquez MD Chloride [Moles/Vol] 104 mmol/L Normal 98-107 [facility] Comment on above: Performed By: #### D AU, UAX, UMICAO #### [facility] [address] [place] [address] Online Services Manager: Bret Vazquez MD Performed By: #### E RTPF, RANDOLPHLTEG #### [facility] [address] [place] [address] Online Services Manager: Bret Vazquez MD CO2 [Moles/Vol] 22 mmol/L Normal 20-31 [facility] Comment on above: Performed By: #### D AU, UAX, UMICAO #### [facility] [address] [place] [address] Online Services Manager: Bret Vazquez MD Performed By: #### E RTRONALDO, RANDOLPHLTEG #### [facility] [address] [place] [address] Online Services Manager: Bret Vazquez MD Creatinine [Mass/Vol] 0.59 mg/dL Low 0.70-1.20 [facility] Comment on above: Performed By: #### Jose R AU, UAX, UMICAO #### [facility] [address] [place] [address] Online Services Manager: Bret Vazquez MD Performed By: #### E RTPF, GHLTEG #### [facility] [address] [place] [address] Online Services Manager: Bret Vazquez MD GFR/1.73 sq M.predicted among non-blacks MDRD (S/P/Bld) [Vol rate/Area] mL/min/{1.73_m2} Normal >60 [facility] Comment on above: Result Comment: Effective [...] #### GINI STARKS UMICAO #### [facility] [address] [place] [address] Online Services Manager: Bret Vazquez MD Performed By: #### E CHRISTY LOPEZ #### [address] [address] Online Services Manager: Bret Vazquez MD Glucose [Mass/Vol] 175 mg/dL High 70-99 [facility] Comment on above: Performed By: #### GINI STARKS UMICAO #### [facility] [address] [place] [address] Online Services Manager: Bret Vazquez MD Performed By: #### E CHRISTY LOPEZ #### [facility] [address] [place] [address] Online Services Manager: Bret Vazquez MD Potassium [Moles/Vol] 4.5 mmol/L Normal 3.7-5.3 [facility] Comment on above: Performed By: #### GINI STARKS, UMICAO #### [facility] [address] [place] [address] Online Services Manager: Bret Vazquez MD Performed By: #### E RANDOLPH LOPEZLTEG #### [facility] [address] [place] [address] Online Services Manager: Bret Vazquez MD Sodium [Moles/Vol] 135 mmol/L Normal 135-144 [facility] Comment on above: Performed By: #### GINI STARKS, UMICAO #### [facility] [address] [place] [address] Online Services Manager: Bret Vazquez MD Performed By: #### E JOHN GHLTEG #### [facility] [address] [place] [address] Online Services Manager: Bret Vazquez MD Urea nitrogen [Mass/Vol] 11 mg/dL Normal 8-23 [facility] Comment on above: Performed By: #### Jose R SAPP UAX, UMICAO #### [facility] [address] [place] [address] Online Services Manager: Bret Vazquez MD Performed By: #### E RTPFKLARISSAEG #### [facility] [address] [place] [address] Online Services Manager: Bret Vazquez MD Basic Metabolic Profon 09-06 Anion gap [Moles/Vol] 7 mmol/L Low 9-17 [facility] Comment on above: Performed By: #### Jose R SAPP UAPriti, UMICAO #### [facility] [address] [place] [address] Online Services Manager: Bret Vazquez MD Performed By: #### E RTBakariFKLARISSAEG #### [facility] [address] [place] [address] Online Services Manager: Bret Vazquez MD Calcium [Mass/Vol] 7.8 mg/dL Low 8.6-10.4 [facility] Comment on above: Performed By: #### Jose R SAPP UAX, UMICAO #### [facility] [address] [place] [address] Online Services Manager: Bret Vazquez MD Performed By: #### E RTPF GHLTEG #### [facility] [address] [place] [address] Online Services Manager: Bret Vazquez MD Chloride [Moles/Vol] 107 mmol/L Normal 98-107 [facility] Comment on above: Performed By: #### Jose R SAPP, UAX, UMICAO #### [facility] [address] [place] [address] Online Services Manager: Bret Vazquez MD Performed By: #### E RTPFKLARISSAEG #### [facility] [address] [place] [address] Online Services Manager: Bret Vazquez MD CO2 [Moles/Vol] 23 mmol/L Normal 20-31 [facility] Comment on above: Performed By: #### D SENAIT, UAX, UMICAO #### [facility] [address] [place] [address] Online Services Manager: Bret Vazquez MD Performed By: #### E RTKLARISSA HIGGINSEG #### [facility] [address] [place] [address] Online Services Manager: Bret Vazquez MD Creatinine [Mass/Vol] 0.60 mg/dL Low 0.70-1.20 [facility] Comment on above: Performed By: #### Jose R SAPP UAX, UMICAO #### [facility] [address] [place] [address] 89714 Online Services Manager: Bret Vazquez MD Performed By: #### E RTKLARISSA HIGGINSEG #### [facility] [address] [place] [address] 88419 Online Services Manager: Bret Vazquez MD GFR/1.73 sq M.predicted among non-blacks MDRD (S/P/Bld) [Vol rate/Area] mL/min/{1.73_m2} Normal >60 [facility] Comment on above: Result Comment: Effective [...] renal tubular secretion. Performed By: #### D AU, UAX, UMICAO #### [facility] [address] [place] [address] 54767 Online Services Manager: Bret Vazquez MD Performed By: #### CHRISTY MOJICA #### [facility] [address] [place] [address] 13686 Online Services Manager: Bret Vazquez MD Glucose [Mass/Vol] 155 mg/dL High 70-99 [facility] Comment on above: Performed By: #### GINI STARKS, CORRINA #### [facility] [address] [place] [address] 24424 Online Services Manager: Bret Vazquez MD Performed By: #### CHRISTY MOJICA #### [facility] [address] [place] [address] 99333 Online Services Manager: Bret Vazquez MD Potassium [Moles/Vol] 5.0 mmol/L Normal 3.7-5.3 [facility] Comment on above: Performed By: #### GINI STARKS UMICAO #### [facility] [address] [place] [address] 52222 Online Services Manager: Bret Vazquez MD Performed By: #### CHRISTY MOJICA #### [facility] [address] [place] [address] 97391 Online Services Manager: Bret Vazquez MD Sodium [Moles/Vol] 137 mmol/L Normal 135-144 [facility] Comment on above: Performed By: #### GINI STARKS, UMICAO #### [facility] [address] [place] [address] 93408 Online Services Manager: Bret Vazquez MD Performed By: #### CHRISTY MOJICA #### [facility] [address] [place] [address] 27374 Online Services Manager: Bret Vazquez MD Urea nitrogen [Mass/Vol] 11 mg/dL Normal 8-23 [facility] Comment on above: Performed By: #### D AU, UAX, UMICAO #### [address] [address] Online Services Manager: Bret Vazquez MD Performed By: #### E RTPF, GHLTEG #### [address] 310[address] Online Services Manager: Bret Vazquez MD Anion gap [Moles/Vol] 11 mmol/L Normal 9-17 [facility] Comment on above: Performed By: #### I OCAL, CDP, MG, LACTIC, ALICIA, BNP, BMP #### [address] [address] Online Services Manager: Bret Vazquez MD Performed By: #### E RTPF, CK, ECENZ, VD25 #### [address] 64583 Online Services Manager: Bret Vazquez MD Calcium [Mass/Vol] 7.5 mg/dL Low 8.6-10.4 [facility] Comment on above: Performed By: #### I OCAL, CDP, MG, LACTIC, ALICIA, BNP, BMP #### [address] 38811 Online Services Manager: Bret Vazquez MD Performed By: #### E RTPF, CK, ECENZ, VD25 #### [address] [address] Online Services Manager: Bret Vazquez MD Chloride [Moles/Vol] 104 mmol/L Normal 98-107 [facility] Comment on above: Performed By: #### I OCAL, CDP, MG, LACTIC, ALICIA, BNP, BMP #### [address] 80569 Online Services Manager: Bret Vazquez MD Performed By: #### E RTPF, CK, ECENZ, VD25 #### [address] [address] Online Services Manager: Bret Vazquez MD CO2 [Moles/Vol] 20 mmol/L Normal 20-31 [facility] Comment on above: Performed By: #### I OCAL, CDP, MG, LACTIC, ALICIA, BNP, BMP #### [address] [address] Online Services Manager: Bret Vazquez MD Performed By: #### E RTPF, CK, ECENZ, VD25 #### [address] [phone] Online Services Manager: Bret Vazquez MD Creatinine [Mass/Vol] 0.62 mg/dL Low 0.70-1.20 [facility] Comment on above: Performed By: #### I OCAL, CDP, MG, LACTIC, ALICIA, BNP, BMP #### [address] [phone] Online Services Manager: Bret Vazquez MD Performed By: #### E RTPF, CK, ECENZ, VD25 #### [address] [phone] Online Services Manager: Bret Vazquez MD GFR/1.73 sq M.predicted among non-blacks MDRD (S/P/Bld) [Vol rate/Area] mL/min/{1.73_m2} Normal >60 [facility] Comment on above: Result Comment: Effective [...] CDP, MG, LACTIC, ALICIA, BNP, BMP #### [address] [phone] Online Services Manager: Bret Vazquez MD Performed By: #### E RTPF, CK, ECENZ, VD25 #### [facility] [address] [place] [address] 95978 Online Services Manager: Bret Vazquez MD Glucose [Mass/Vol] 157 mg/dL High 70-99 [facility] Comment on above: Performed By: #### I OCAL, CDP, MG, LACTIC, ALICIA, BNP, BMP #### [facility] [address] [place] [address] 61562 Online Services Manager: Bret Vazquez MD Performed By: #### E RTPF, CK, ECENZ, VD25 #### [facility] [address] [place] [address] 05449 Online Services Manager: Bret Vazquez MD Potassium [Moles/Vol] 4.2 mmol/L Normal 3.7-5.3 [facility] Comment on above: Performed By: #### I OCAL, CDP, MG, LACTIC, ALICIA, BNP, BMP #### [facility] [address] [place] [address] 21360 Online Services Manager: Bret Vazquez MD Performed By: #### E RTPF, CK, ECENZ, VD25 #### [facility] [address] [place] [address] 54892 Online Services Manager: Bret Vazquez MD Sodium [Moles/Vol] 135 mmol/L Normal 135-144 [facility] Comment on above: Performed By: #### I OCAL, CDP, MG, LACTIC, ALICIA, BNP, BMP #### [facility] [address] [place] [address] 35681 Online Services Manager: Bret Vazquez MD Performed By: #### E RTPF, CK, ECENZ, VD25 #### [facility] [address] [place] [address] 91460 Online Services Manager: rBet Vazquez MD Urea nitrogen [Mass/Vol] 11 mg/dL Normal 8-23 [facility] Comment on above: Performed By: #### I OCAL, CDP, MG, LACTIC, ALICIA, BNP, BMP #### [address] 13910 Online Services Manager: Bret Vazquez MD Performed By: #### E RTPF, CK, ECENZ, VD25 #### [address] 99676 Online Services Manager: Bret Vazquez MD Brain Natri. Peptideon 09-06 Natriuretic peptide B (Bld) [Mass/Vol] 846 pg/mL High <300 [facility] Comment on above: Result Comment: An age-independent cutoff point of 300 pg/ml has a 98% negative predictive value excluding acute heart failure. Performed By: #### B MPX, CDP #### [place] [address] Online Services Manager: Bret Vazquez MD Performed By: #### E RTPF, CK, ECENZ, VD25 #### [facility] [address] [place] [address] 48888 Online Services Manager: Bret Vazquez MD CBC with Diffon 09-06-2022 Abs. Basophil 0.00 k/uL Normal 0.0-0.2 [facility] Comment on above: Performed By: #### Jose R SAPP, UAX, UMICAO #### [facility] [address] [place] [address] Online Services Manager: Bret Vazquez MD Performed By: #### E RTPF, GHLTEG #### [facility] [address] [place] [address] 60213 Online Services Manager: Bret Vazquez MD Abs.Imm.Granulocyte 0.00 k/uL Normal 0.00-0.30 [facility] Comment on above: Performed By: #### Jose R SAPP, UAX, UMICAO #### [facility] [address] [place] [address] Online Services Manager: Bret Vazquez MD Performed By: #### CHRISTY MOJICA #### [address] [address] Online Services Manager: Bret Vazquez MD Abs.Neutrophil (Seg) 8.46 k/uL High 1.8-7.7 [facility] Comment on above: Performed By: #### GINI STARKS, UMICAO #### [address] 90554 Online Services Manager: Bret Vazquez MD Performed By: #### CHRISTY MOJICA #### [address] 22248 Online Services Manager: Bret Vazquez MD Basophils/100 WBC (Bld) 0 % Normal 0-2 [facility] Comment on above: Performed By: #### GINI STARKS, UMICAO #### [address] 93968 Online Services Manager: Bret Vazquez MD Performed By: #### CHRISTY MOJICA #### [address] 01195 Online Services Manager: Bret Vazquez MD Eosinophils (Bld) [#/Vol] 0.00 10*3/uL Normal 0.0-0.4 [facility] Comment on above: Performed By: #### Jose R SAPP UAX, UMICAO #### [address] [address] Online Services Manager: Bret Vazquez MD Performed By: #### KLARISSA MOJICAEG #### [address] 74408 Online Services Manager: Bret Vazquez MD Eosinophils/100 WBC (Bld) 0 % Low 1-4 [facility] Comment on above: Performed By: #### D SENAIT, UAX, UMICAO #### [facility] [address] [place] [address] 37889 Online Services Manager: Bret Vazquez MD Performed By: #### E RTKLAIRSSA HIGGINSEG #### [address] 00208 Online Services Manager: Bret Vazquez MD Immature granulocytes/100 WBC (Bld) 0 % Normal 0 [facility] Comment on above: Performed By: #### Jose R SAPP, UAX, UMICAO #### [facility] [address] [place] [address] 82032 Online Services Manager: Bret Vazquez MD Performed By: #### E RTCHRISTY HIGGINS #### [address] [address]009 Online Services Manager: Bret Vazquez MD Lymphocytes (Bld) [#/Vol] 0.55 10*3/uL Low 1.0-4.8 [facility] Comment on above: Performed By: #### Jose R SAPP, UAX, UMICAO #### [address] 78722 Online Services Manager: Bret Vazquez MD Performed By: #### E RTRANDOLPH HIGGINSLTEG #### [facility] [address] [place] [address] 63157 Online Services Manager: Bret Vazquez MD Lymphocytes/100 WBC (Bld) 6 % Low 24-44 [facility] Comment on above: Performed By: #### Jose R SAPP, UAX, UMICAO #### [facility] [address] [place] [address] 89441 Online Services Manager: Bret Vazquez MD Performed By: #### E RTPF, GHLTEG #### [facility] [address] [place] [address] 49679 Online Services Manager: Bret Vazquez MD Monocytes (Bld) [#/Vol] 0.09 10*3/uL Low 0.1-0.8 [facility] Comment on above: Performed By: #### GINI STARKS, UMICAO #### [address] [address] Online Services Manager: Bret Vazquez MD Performed By: #### Isidro RTCHRISTY HIGGINS #### [address] 22270 Online Services Manager: Bret Vazquez MD Monocytes/100 WBC (Bld) 1 % Normal 1-7 [facility] Comment on above: Performed By: #### GINI STARKS, UMICAO #### [address] 91580 Online Services Manager: Bret Vazquez MD Performed By: #### CHRISTY MOJICA #### [address] 82160 Online Services Manager: Bret Vazquez MD Morphology Ruy (Bld) [Interp] ANISOCYTOSIS PRESENT Normal [facility] Comment on above: Result Comment: 1+ ACANTHOCYTES Performed By: #### GINI STARKS, UMICAO #### [address] [address]96 Online Services Manager: Bret Vazquez MD Performed By: #### E RTCHRISTY HIGGINS #### [facility] [address] [place] [address] 14017 Online Services Manager: Bret Vazquez MD Neutrophil (Seg) 93 % High 36-66 [facility] Comment on above: Performed By: #### Jose R SAPP UAX, UMICAO #### [facility] [address] [place] [address] 08507 Online Services Manager: Bret Vazquez MD Performed By: #### CHRISTY MOJICA #### [facility] [address] [place] [address] 18684 Online Services Manager: Bret Vazquez MD Erythrocyte distribution width (RBC) [Ratio] 16.8 % High 11.8-14.4 [facility] Comment on above: Performed By: #### Jose R SAPP UAX, UMICAO #### [facility] [address] [place] [address] 75268 Online Services Manager: Bret Vazquez MD Performed By: #### E RTKLARISSA HIGGINSEG #### [facility] [address] [place] [address] 30460 Online Services Manager: Bret Vazquez MD Hematocrit (Bld) [Volume fraction] 26.6 % Low 40.7-50.3 [facility] Comment on above: Performed By: #### GINI STARKS, UMICAO #### [facility] [address] [place] [address] 84311 Online Services Manager: Bret Vazquez MD Performed By: #### KLARISSA MOJICAEG #### [facility] [address] [place] [address] Online Services Manager: Bret Vazquez MD Hemoglobin (Bld) [Mass/Vol] 8.5 g/dL Low 13.0-17.0 [facility] Comment on above: Performed By: #### Jose R SAPP UAX, UMICAO #### [facility] [address] [place] [address] 53863 Online Services Manager: Bret Vazquez MD Performed By: #### E RTCHRISTY HIGGINS #### [facility] [address] [place] [address] 09588 Online Services Manager: Bret Vazquez MD MCH (RBC) [Entitic mass] 31.6 pg Normal 25.2-33.5 [facility] Comment on above: Performed By: #### Jose R SAPP, UAX, UMICAO #### [address] 9[address]67 Online Services Manager: Bret Vazuqez MD Performed By: #### CHRISTY MOJICA #### [address] 89668 Online Services Manager: Bret Vazquez MD MCHC (RBC) [Mass/Vol] 32.0 g/dL Normal 28.4-34.8 [facility] Comment on above: Performed By: #### Jose R SAPP, UAX, UMICAO #### [address] [address]602 Online Services Manager: Bret Vazquez MD Performed By: #### CHRISTY MOJICA #### [address] 97836 Online Services Manager: Bret Vazquez MD MCV (RBC) [Entitic vol] 98.9 fL Normal 82.6-102.9 [facility] Comment on above: Performed By: #### GINI STARKS, UMICAO #### [address] 90021 Online Services Manager: Bret Vazquez MD Performed By: #### CHRISTY MOJICA #### [address] 75381 Online Services Manager: Bret Vazquez MD NRBC Automated 0.0 per 100 WBC Normal 0.0 [facility] Comment on above: Performed By: #### Jose R SAPP UAX, UMICAO #### [address] [address]96 Online Services Manager: Bret Vazquez MD Performed By: #### CHRISTY MOJICA #### [address] 7[address]00 Online Services Manager: Bret Vazquez MD Platelet mean volume (Bld) [Entitic vol] 10.4 fL Normal 8.1-13.5 [facility] Comment on above: Performed By: #### Jose R SAPP UAX, UMICAO #### [facility] [address] [place] [address] 94314 Online Services Manager: Bret Vazquez MD Performed By: #### Isidro RTKLARISSA HIGGINSEG #### [facility] [address] [place] [address] 30981 Online Services Manager: Bret Vazquez MD Platelets (Bld) [#/Vol] 224 10*3/uL Normal 138-453 [facility] Comment on above: Performed By: #### Jose R SAPP UAPriti, UMICAO #### [facility] [address] [place] [address] 32086 Online Services Manager: Bret Vazquez MD Performed By: #### Isidro RTCHRISTY HIGGINS #### [facility] [address] [place] [address] 95832 Online Services Manager: Bret Vazquez MD RBC (Bld) [#/Vol] 2.69 10*6/uL Low 4.21-5.77 [facility] Comment on above: Performed By: #### GINI STARKS, UMICAO #### [facility] [address] [place] [address] 65631 Online Services Manager: Bret Vazquez MD Performed By: #### Isidro RTCHRISTY HIGGINS #### [facility] [address] [place] [address] 13733 Online Services Manager: Bret Vazquez MD WBC (Bld) [#/Vol] 9.1 10*3/uL Normal 3.5-11.3 [facility] Comment on above: Performed By: #### Jose R SAPP, UAX, UMICAO #### [facility] [address] [place] [address] 53091 Online Services Manager: Bret Vazquez MD Performed By: #### E RTPF, GHLTEG #### [address] [address]15 Online Services Manager: Bret Vazquez MD Abs. Basophil 0.03 k/uL Normal 0.00-0.20 [facility] Comment on above: Performed By: #### Jose R SAPP UAX, UMICAO #### [address] [address] Online Services Manager: Bret Vazquez MD Performed By: #### E RTRONALDO GHLTEG #### [address] 17977 Online Services Manager: Bret Vazquez MD Abs. Eosinophil <0.03 Normal 0.00-0.44 [facility] Comment on above: Performed By: #### GINI STARKS, UMICAO #### [address] 91729 Online Services Manager: Bret Vazquez MD Performed By: #### E RTRONALDO GHLTEG #### [address] 05829 Online Services Manager: Bret Vazquez MD Abs.Imm.Granulocyte 0.05 k/uL Normal 0.00-0.30 [facility] Comment on above: Performed By: #### GINI STARKS, UMICAO #### [facility] [address] [place] [address] 46892 Online Services Manager: Bret Vazquez MD Performed By: #### E RTRONALDO GHLTEG #### [facility] [address] [place] [address] 62156 Online Services Manager: Bret Vazquez MD Abs.Neutrophil (Seg) 9.22 k/uL High 1.50-8.10 [facility] Comment on above: Performed By: #### Jose R SAPP UAX, UMICAO #### [facility] [address] [place] [address] 60585 Online Services Manager: Bret Vazquez MD Performed By: #### CHRISTY MOJICA #### [address] [address] Online Services Manager: Bret Vazquez MD Basophils/100 WBC (Bld) 0 % Normal 0-2 [facility] Comment on above: Performed By: #### GINI STARKS UMICAO #### [address] [address] Online Services Manager: Bret Vazquez MD Performed By: #### CHRISTY MOJICA #### [address] 08512 Online Services Manager: Bret Vazquez MD Eosinophils/100 WBC (Bld) 0 % Low 1-4 [facility] Comment on above: Performed By: #### GINI STARKS, UMICAO #### [address] 15896 Online Services Manager: Bret Vazquez MD Performed By: #### CHRISTY MOJICA #### [facility] [address] [place] [address] 17904 Online Services Manager: Bret Vazquez MD Erythrocyte distribution width (RBC) [Ratio] 16.8 % High 11.8-14.4 [facility] Comment on above: Performed By: #### GINI STARKS, UMICAO #### [address] [address]959 Online Services Manager: Bret Vazquez MD Performed By: #### CHRISTY MOJICA #### [facility] [address] [place] [address] 29728 Online Services Manager: Bret Vazquez MD Hematocrit (Bld) [Volume fraction] 30.0 % Low 40.7-50.3 [facility] Comment on above: Performed By: #### Jose R SAPP, UAX, UMICAO #### [facility] [address] [place] [address] 22721 Online Services Manager: Bret Vazquez MD Performed By: #### Isidro RTCHRISTY HIGGINS #### [address] [address] Online Services Manager: Bret Vazquez MD Hemoglobin (Bld) [Mass/Vol] 9.7 g/dL Low 13.0-17.0 [facility] Comment on above: Performed By: #### Jose R SAPP UAX, UMICAO #### [facility] [address] [place] [address] 18953 Online Services Manager: Bret Vazquez MD Performed By: #### E RTCHRISTY HIGGINS #### [facility] [address] [place] [address] 12410 Online Services Manager: Bret Vazquez MD Immature granulocytes/100 WBC (Bld) 0 % Normal 0 [facility] Comment on above: Performed By: #### GINI STARKS, UMICAO #### [address] [address] Online Services Manager: Bret Vazquez MD Performed By: #### E RTKLARISSA HIGGINSEG #### [facility] [address] [place] [address] 28627 Online Services Manager: Bret Vazquez MD Lymphocytes (Bld) [#/Vol] 0.84 10*3/uL Low 1.10-3.70 [facility] Comment on above: Performed By: #### Jose R SAPP UAX, UMICAO #### [facility] [address] [place] [address] 93698 Online Services Manager: Bret Vazquez MD Performed By: #### E RTRANDOLPH HIGGINSLTEG #### [facility] [address] [place] [address] 44330 Online Services Manager: Bret Vazquez MD Lymphocytes/100 WBC (Bld) 8 % Low 24-43 [facility] Comment on above: Performed By: #### GIIN STARKS, CORRINA #### [address] [address] Online Services Manager: Bret Vazquez MD Performed By: #### CHRISTY MOJICA #### [address] [address] Online Services Manager: Bret Vazquez MD MCH (RBC) [Entitic mass] 31.6 pg Normal 25.2-33.5 [facility] Comment on above: Performed By: #### GINI STARKS, UMICAO #### [address] 5[address] Online Services Manager: Bret Vazquez MD Performed By: #### CHRISTY MOJICA #### [address] 84514 Online Services Manager: Bret Vazquez MD MCHC (RBC) [Mass/Vol] 32.3 g/dL Normal 28.4-34.8 [facility] Comment on above: Performed By: #### GINI STARKS, UMICAO #### [address] [address] Online Services Manager: Brte Vazquez MD Performed By: #### CHRISTY MOJICA #### [address] 7[address]60 Online Services Manager: Bret Vazquez MD MCV (RBC) [Entitic vol] 97.7 fL Normal 82.6-102.9 [facility] Comment on above: Performed By: #### GINI STARKS, UMICAO #### [address] [address]358 Online Services Manager: Bret Vazquez MD Performed By: #### CHRISTY MOJICA #### [address] 6[address]90 Online Services Manager: Bret Vazquez MD Monocytes (Bld) [#/Vol] 0.98 10*3/uL Normal 0.10-1.20 [facility] Comment on above: Performed By: #### GINI STARKS UMICAO #### [address] [address] Online Services Manager: Bret Vazquez MD Performed By: #### E CHRISTY LOPEZ #### [address] [address]92 Online Services Manager: Bret Vazquez MD Monocytes/100 WBC (Bld) 9 % Normal 3-12 [facility] Comment on above: Performed By: #### GINI STARKS, CORRINA #### [address] [address] Online Services Manager: Bret Vazquez MD Performed By: #### CHRISTY MOJICA #### [address] [address]503 Online Services Manager: Bret Vazquez MD Neutrophil (Seg) 83 % High 36-65 [facility] Comment on above: Performed By: #### GINI STARKS, SHEMARO #### [address] [address] Online Services Manager: Bret Vazquez MD Performed By: #### CHRISTY MOJICA #### [address] 88574 Online Services Manager: Bret Vazquez MD NRBC Automated 0.0 per 100 WBC Normal 0.0 [facility] Comment on above: Performed By: #### GINI STARKS, UMICAO #### [address] [address] Online Services Manager: Bret Vazquez MD Performed By: #### Isidro RTCHRISTY HIGGINS #### [address] [address] Online Services Manager: Bret Vazquez MD Platelet mean volume (Bld) [Entitic vol] 10.2 fL Normal 8.1-13.5 [facility] Comment on above: Performed By: #### Jose R SAPP, UAX, UMICAO #### [address] [address] Online Services Manager: Bret Vazquez MD Performed By: #### CHRISTY MOJICA #### [address] [address] Online Services Manager: Bret Vazquez MD Platelets (Bld) [#/Vol] 249 10*3/uL Normal 138-453 [facility] Comment on above: Performed By: #### Jose R SAPP, UAX, UMICAO #### [address] [address] Online Services Manager: Bret Vazquez MD Performed By: #### CHRISTY MOJICA #### [address] 0[address] Online Services Manager: Bret Vazquez MD RBC (Bld) [#/Vol] 3.07 10*6/uL Low 4.21-5.77 [facility] Comment on above: Performed By: #### Jose R SAPP, UAX, UMICAO #### [address] [address] Online Services Manager: Bret Vazquez MD Performed By: #### E RTCHRISTY HIGGINS #### [address] 118[address] Online Services Manager: Bret Vazquez MD RBC morphology finding Nom (Bld) ANISOCYTOSIS PRESENT Normal [facility] Comment on above: Performed By: #### D GINI SAPP, UMICAO #### [address] [address]382 Online Services Manager: Bret Vazquez MD Performed By: #### Isidro RTCHRISTY HIGGINS #### [address] [address] Online Services Manager: Bret Vazquez MD WBC (Bld) [#/Vol] 11.1 10*3/uL Normal 3.5-11.3 [facility] Comment on above: Performed By: #### GINI STARKS, ICAO #### [address] [address] Online Services Manager: Bret Vazquez MD Performed By: #### CHRISTY MOJICA #### [address] 10002 Online Services Manager: Bret Vazquez MD Abs. Basophil 0.04 k/uL Normal 0.00-0.20 [facility] Comment on above: Performed By: #### I OCAL, CDP, MG, LACTIC, ALICIA, BNP, BMP #### [address] [address] Online Services Manager: Bret Vazquez MD Performed By: #### E RTPF, CK, ECENZ, VD25 #### [address] [address] Online Services Manager: Bret Vazquez MD Abs.Imm.Granulocyte 0.07 k/uL Normal 0.00-0.30 [facility] Comment on above: Performed By: #### I OCAL, CDP, MG, LACTIC, ALICIA, BNP, BMP #### [address] [address] Online Services Manager: Bret Vazquez MD Performed By: #### E RTPF, CK, ECENZ, VD25 #### [address] [address] Online Services Manager: Bret Vazquez MD Abs.Neutrophil (Seg) 13.83 k/uL High 1.50-8.10 [facility] Comment on above: Performed By: #### I OCAL, CDP, MG, LACTIC, ALICIA, BNP, BMP #### [address] [address] Online Services Manager: rBet Vazquez MD Performed By: #### E RTPF, CK, ECENZ, VD25 #### [place] [address] Online Services Manager: Bret Vazquez MD Basophils/100 WBC (Bld) 0 % Normal 0-2 [facility] Comment on above: Performed By: #### I OCAL, CDP, MG, LACTIC, ALICIA, BNP, BMP #### [place] [address] Online Services Manager: Bret Vazquez MD Performed By: #### E RTPF, CK, ECENZ, VD25 #### [place] [address] Online Services Manager: Bret Vazquez MD Eosinophils (Bld) [#/Vol] 0.07 10*3/uL Normal 0.00-0.44 [facility] Comment on above: Performed By: #### I OCAL, CDP, MG, LACTIC, ALICIA, BNP, BMP #### [address] [address] Online Services Manager: Bret Vazquez MD Performed By: #### E RTPF, CK, ECENZ, VD25 #### [address] [address] Online Services Manager: Bret Vazquez MD Eosinophils/100 WBC (Bld) 0 % Low 1-4 [facility] Comment on above: Performed By: #### I OCAL, CDP, MG, LACTIC, ALICIA, BNP, BMP #### [facility] [address] [place] [address] Online Services Manager: Bret Vazquez MD Performed By: #### E RTPF, CK, ECENZ, VD25 #### [facility] [address] [place] [address] Online Services Manager: Bret Vazquez MD Erythrocyte distribution width (RBC) [Ratio] 16.4 % High 11.8-14.4 [facility] Comment on above: Performed By: #### I OCAL, CDP, MG, LACTIC, ALICIA, BNP, BMP #### [facility] [address] [place] [address] Online Services Manager: Bret Vazquez MD Performed By: #### E RTPF, CK, ECENZ, VD25 #### [facility] [address] [place] [address] Online Services Manager: Bret Vazquez MD Hematocrit (Bld) [Volume fraction] 33.2 % Low 40.7-50.3 [facility] Comment on above: Performed By: #### I OCAL, CDP, MG, LACTIC, ALICIA, BNP, BMP #### [facility] [address] [place] [address] Online Services Manager: Bret Vazquez MD Performed By: #### E RTPF, CK, ECENZ, VD25 #### [facility] [address] [place] [address] Online Services Manager: Bret Vazquez MD Hemoglobin (Bld) [Mass/Vol] 11.1 g/dL Low 13.0-17.0 [facility] Comment on above: Performed By: #### I OCAL, CDP, MG, LACTIC, ALICIA, BNP, BMP #### [facility] [address] [place] [address] Online Services Manager: Bret Vazquez MD Performed By: #### E RTPF, CK, ECENZ, VD25 #### [address] [address] Online Services Manager: Bret Vazquez MD Immature granulocytes/100 WBC (Bld) 0 % Normal 0 [facility] Comment on above: Performed By: #### I OCAL, CDP, MG, LACTIC, ALICIA, BNP, BMP #### [address] [address] Online Services Manager: Bret Vazquez MD Performed By: #### E RTPF, CK, ECENZ, VD25 #### [address] [address] Online Services Manager: Bret Vazquez MD Lymphocytes (Bld) [#/Vol] 1.05 10*3/uL Low 1.10-3.70 [facility] Comment on above: Performed By: #### I OCAL, CDP, MG, LACTIC, ALICIA, BNP, BMP #### [address] [address] Online Services Manager: Bret Vazquez MD Performed By: #### E RTPF, CK, ECENZ, VD25 #### [address] [address] Online Services Manager: Bret Vazquez MD Lymphocytes/100 WBC (Bld) 6 % Low 24-43 [facility] Comment on above: Performed By: #### I OCAL, CDP, MG, LACTIC, ALICIA, BNP, BMP #### [address] [address] Online Services Manager: Bret Vazquez MD Performed By: #### E RTPF, CK, ECENZ, VD25 #### [facility] [address] [place] [address] Online Services Manager: Bret Vazquez MD MCH (RBC) [Entitic mass] 31.5 pg Normal 25.2-33.5 [facility] Comment on above: Performed By: #### I OCAL, CDP, MG, LACTIC, ALICIA, BNP, BMP #### [address] [address] Online Services Manager: Bret Vazquez MD Performed By: #### E RTPF, CK, ECENZ, VD25 #### [address] [address] Online Services Manager: Bret Vazquez MD MCHC (RBC) [Mass/Vol] 33.4 g/dL Normal 28.4-34.8 [facility] Comment on above: Performed By: #### I OCAL, CDP, MG, LACTIC, ALICIA, BNP, BMP #### [address] [address] Online Services Manager: Bret Vazquez MD Performed By: #### E RTPF, CK, ECENZ, VD25 #### [address] [address] Online Services Manager: Bret Vazquez MD MCV (RBC) [Entitic vol] 94.3 fL Normal 82.6-102.9 [facility] Comment on above: Performed By: #### I OCAL, CDP, MG, LACTIC, ALICIA, BNP, BMP #### [address] [address] Online Services Manager: Bret Vazquez MD Performed By: #### E RTPF, CK, ECENZ, VD25 #### [facility] [address] [place] [address] Online Services Manager: Bret Vazquez MD Monocytes (Bld) [#/Vol] 1.34 10*3/uL High 0.10-1.20 [facility] Comment on above: Performed By: #### I OCAL, CDP, MG, LACTIC, ALICIA, BNP, BMP #### [address] [address] Online Services Manager: Bret Vazquez MD Performed By: #### E RTPF, CK, ECENZ, VD25 #### [address] [address] Online Services Manager: Bret Vazquez MD Monocytes/100 WBC (Bld) 8 % Normal 3-12 [facility] Comment on above: Performed By: #### I OCAL, CDP, MG, LACTIC, ALICIA, BNP, BMP #### [address] [address] Online Services Manager: Bret Vazquez MD Performed By: #### E RTPF, CK, ECENZ, VD25 #### [address] [address] Online Services Manager: Bret Vazquez MD Neutrophil (Seg) 84 % High 36-65 [facility] Comment on above: Performed By: #### I OCAL, CDP, MG, LACTIC, ALICIA, BNP, BMP #### [address] [address] Online Services Manager: Bret Vazquez MD Performed By: #### E RTPF, CK, ECENZ, VD25 #### [address] [address] Online Services Manager: Bret Vazquez MD NRBC Automated 0.0 per 100 WBC Normal 0.0 [facility] Comment on above: Performed By: #### I OCAL, CDP, MG, LACTIC, ALICIA, BNP, BMP #### [address] [address] Online Services Manager: Bret Vazquez MD Performed By: #### E RTPF, CK, ECENZ, VD25 #### [address] [address] Online Services Manager: Bret Vazquez MD Platelet mean volume (Bld) [Entitic vol] 10.2 fL Normal 8.1-13.5 [facility] Comment on above: Performed By: #### I OCAL, CDP, MG, LACTIC, ALICIA, BNP, BMP #### [address] [address] Online Services Manager: Bret Vazquez MD Performed By: #### E RTPF, CK, ECENZ, VD25 #### [address] [address] Online Services Manager: Bret Vazquez MD Platelets (Bld) [#/Vol] 283 10*3/uL Normal 138-453 [facility] Comment on above: Performed By: #### I OCAL, CDP, MG, LACTIC, ALICIA, BNP, BMP #### [address] [address] Online Services Manager: Bret Vazquez MD Performed By: #### E RTPF, CK, ECENZ, VD25 #### [address] [address] Online Services Manager: Bret Vazquez MD RBC (Bld) [#/Vol] 3.52 10*6/uL Low 4.21-5.77 [facility] Comment on above: Performed By: #### I OCAL, CDP, MG, LACTIC, ALICIA, BNP, BMP #### [address] [address] Online Services Manager: Bret Vazquez MD Performed By: #### E RTPF, CK, ECENZ, VD25 #### [address] [address] Online Services Manager: Bret Vazquez MD RBC morphology finding Nom (Bld) ANISOCYTOSIS PRESENT Normal [facility] Comment on above: Performed By: #### I OCAL, CDP, MG, LACTIC, ALICIA, BNP, BMP #### [facility] [address] [phone] Online Services Manager: Bret Vazquez MD Performed By: #### E RTPF, CK, ECENZ, VD25 #### [address] [phone] Online Services Manager: Bret Vazquez MD WBC (Bld) [#/Vol] 16.4 10*3/uL High 3.5-11.3 [facility] Comment on above: Performed By: #### I OCAL, CDP, MG, LACTIC, ALICIA, BNP, BMP #### [address] [id number] Online Services Manager: Bret Vazquez MD Performed By: #### E RTPF, CK, ECENZ, VD25 #### [address] [phone] Online Services Manager: Bret Vazquez MD CT 3D RECONSTRUCTIONon 09-06 [...] Dallin Pineda MD 09/06/22 Final result Normal [facility] CT ANKLE LEFT WO CONTRASTon 09-06-2022 CT [...] Dallin Pineda MD 09/06/22 Final result Normal [facility] Calcium, Ionicon 09-06-2022 Calcium [Moles/Vol] 1.16 mmol/L Normal 1.13-1.33 [facility] Comment on above: Performed By: #### B MPX, CDP #### [facility] [address] [place] [address] Online Services Manager: Bret Vazquez MD Performed By: #### B MP, CDP, IOCAL, LACTIC, ALICIA, MG #### [facility] [address] [place] [address] Online Services Manager: Bret Vazquez MD Calcium [Moles/Vol] 1.17 mmol/L Normal 1.13-1.33 [facility] Comment on above: Performed By: #### D AU, UAX, UMICAO #### [facility] [address] [place] [address] Online Services Manager: Bret Vazquez MD Performed By: #### E RTPF, CK, ECENZ, VD25 #### [facility] [address] [place] [address] Online Services Manager: Bret Vazquez MD Calcium [Moles/Vol] 0.98 mmol/L Low 1.13-1.33 [facility] Comment on above: Performed By: #### I OCAL, CDP, MG, LACTIC, ALICIA, BNP, BMP #### [address] [address] Online Services Manager: Bret Vazquez MD Performed By: #### E RTPF, CK, ECENZ, VD25 #### [facility] [address] [place] [address] Online Services Manager: Bret Vazquez MD Drug Scr, Abuse, Uron 2021 Amphetamine(s),Ur Negative Normal NEG [facility] Comment on above: Result Comment: (Positive cutoff 1000 ng/mL) Performed By: #### Jose R AU, UAX, UMICAO #### [facility] [address] [place] [address] Online Services Manager: Bret Vazquez MD Performed By: #### E RTPF, CK, ECENZ, VD25 #### [facility] [address] [place] [address] Online Services Manager: Bret Vazquez MD Barbiturate(s),Ur Negative Normal NEG [facility] Comment on above: Result Comment: (Positive cutoff 200 ng/mL) Performed By: #### D AU, UAX, UMICAO #### [facility] [address] [place] [address] Online Services Manager: Bret Vazquez MD Performed By: #### E RTPF, CK, ECENZ, VD25 #### [facility] [address] [place] [address] Online Services Manager: Bret Vazquez MD Benzodiazepine(s) Negative Normal NEG [facility] Comment on above: Result Comment: (Positive cutoff 200 ng/mL) Performed By: #### D AU, UAX, UMICAO #### [facility] [address] [place] [address] Online Services Manager: Bret Vazquez MD Performed By: #### E RTPF, CK, ECENZ, VD25 #### [facility] [address] [place] [address] Online Services Manager: Bret Vazquez MD Cannabinoid(s),Ur Negative Normal NEG [facility] Comment on above: Result Comment: (Positive cutoff 50 ng/mL) Performed By: #### Jose R AU, UAX, UMICAO #### [facility] [address] [place] [address] Online Services Manager: Bret Vazquez MD Performed By: #### E RTPF, CK, ECENZ, VD25 #### [facility] [address] [place] [address] Online Services Manager: Bret Vazquez MD Cocaine Metabolite Negative Normal NEG [facility] Comment on above: Result Comment: (Positive cutoff 300 ng/mL) Performed By: #### Jose R AU, UAX, UMICAO #### [facility] [address] [place] [address] Online Services Manager: Bret Vazquez MD Performed By: #### E RTPF, CK, ECENZ, VD25 #### [facility] [address] [place] [address] Online Services Manager: Bret Vazquez MD Fentanyl, Urine Positive Abnormal NEG [facility] Comment on above: Result Comment: (Positive cutoff 5 ng/ml) Performed By: #### Jose R AU, UAX, UMICAO #### [facility] [address] [place] [address] Online Services Manager: Bret Vazquez MD Performed By: #### E RTPF, CK, ECENZ, VD25 #### [facility] [address] [place] [address] Online Services Manager: Bret Vazquez MD Interpretive Info Assay provides medic al screening only. The absence of expected drug(s) and/or Normal [facility] Comment on above: Result Comment: meta bolite(s) may indicate diluted or adulterated urine, limitations of testing or timing of collection. Testing for legal purposes should be confirmed by another method. To request confirmation of test result, please call the lab within 7 days of sample submission. Performed By: #### D AU, UAX, UMICAO #### [facility] [address] [place] [address] Online Services Manager: Bret Vazquez MD Performed By: #### E RTPF, CK, ECENZ, VD25 #### [facility] [address] [place] [address] Online Services Manager: Bret Vazquez MD Methadone Ql (U) Negative Normal NEG [facility] Comment on above: Result Comment: (Positive cutoff 300 ng/mL) Performed By: #### Jose R SAPP, UAX, UMICAO #### [facility] [address] [place] [address] Online Services Manager: Bret Vazquez MD Performed By: #### E RTPF, CK, ECENZ, VD25 #### [facility] [address] [place] [address] Online Services Manager: Bret Vazquez MD Opiate(s), Ur Negative Normal NEG [facility] Comment on above: Result Comment: (Positive cutoff 300 ng/mL) Performed By: #### Jose R SAPP, UAX, UMICAO #### [facility] [address] [place] [address] Online Services Manager: Bret Vazquez MD Performed By: #### E RTPF, CK, ECENZ, VD25 #### [facility] [address] [place] [address] Online Services Manager: Bret Vazquez MD Oxycodone, Urine Negative Normal NEG [facility] Comment on above: Result Comment: (Positive cutoff 100 ng/mL) Performed By: #### D AU, UAX, UMICAO #### [facility] [address] [place] [address] Online Services Manager: Bret Vazquez MD Performed By: #### E RTPF CK ECFARZAD VD25 #### [facility] [address] [place] [address] Online Services Manager: Bret Vazquez MD Phencyclidine, Ur Negative Normal NEG [facility] Comment on above: Result Comment: (Positive cutoff 25 ng/mL) Performed By: #### D AU, UAX, UMICAO #### [facility] [address] [place] [address] Online Services Manager: Bret Vazquez MD Performed By: #### E RTPF CKVIRGIL, VD25 #### [facility] [address] [place] [address] Online Services Manager: Bret Vazquez MD FLUORO FOR SURGICAL PROCEDUR ESon 09-06-2022 FLUORO FOR SURGICAL PROCEDURES Radiology exam is complete. No Radiologist dictation. Please follow up with ordering provider. Final result Normal [facility] Gl Hemostasis TEG w/Lysison 09-06-2022 Fibrinogen, Func TEG 22.5 mm Normal 15.0-32.0 [facility] Comment on above: Performed By: #### B MPX, CDP #### [facility] [address] [place] [address] Online Services Manager: Bret Vazquez MD Performed By: #### E RTPF GHLTEG #### [facility] [address] [place] [address] Online Services Manager: Bret Vaqzuez MD LY30 (Lysis) TEG 0.4 % Normal 0.0-2.6 [facility] Comment on above: Performed By: #### B MPX, CDP #### [facility] [address] [place] [address] Online Services Manager: Bret Vazquez MD Performed By: #### E RTPF GHLTEG #### [address] [address] Online Services Manager: Bret Vazquez MD MA Rapid TEG 64.5 mm Normal 52.0-70 [facility] Comment on above: Performed By: #### B MPX, CDP #### [address] [address] Online Services Manager: Bret Vazquez MD Performed By: #### E RTPFKLARISSAEG #### [facility] [address] [place] [address] Online Services Manager: Bret Vazquez MD R(Reaction Time) TEG 8.0 min Normal 4.6-9.1 [facility] Comment on above: Performed By: #### B MPX, CDP #### [address] [address] Online Services Manager: Bret Vazquez MD Performed By: #### E RTPFCHRISTY #### [address] [address] Online Services Manager: Bret Vazquez MD Hgb/Hcton 09-06-2022 Hematocrit (Bld) [Volume fraction] 28.2 % Low 40.7-50.3 [facility] Comment on above: Performed By: #### B MPX, CDP #### [address] [address] Online Services Manager: Bret Vazquez MD Performed By: #### H H #### [address] [address] Online Services Manager: Bret Vazquez MD Hemoglobin (Bld) [Mass/Vol] 9.3 g/dL Low 13.0-17.0 [facility] Comment on above: Performed By: #### B MPX, CDP #### [address] [address] Online Services Manager: Bret Vazquez MD Performed By: #### H H #### [address] [address] Online Services Manager: Bret Vazquez MD Lactic Acidon 09-06-2022 Lactic Acid,Whole Bl 1.7 mmol/L Normal 0.7-2.1 [facility] Comment on above: Performed By: #### B MPX, CDP #### [address] [address] Online Services Manager: Bret Vazquez MD Performed By: #### E RTPF, GHLTEG #### [address] [address] Online Services Manager: Bret Vazquez MD Lactic Acid,Whole Bl 0.8 mmol/L Normal 0.7-2.1 [facility] Comment on above: Performed By: #### D AU, UAX, UMICAO #### [address] [address] Online Services Manager: Bret Vazquez MD Performed By: #### E RTPF, CK, ECENZ, VD25 #### [address] [address] Online Services Manager: Bret Vazquez MD Lactic Acid,Whole Bl 1.3 mmol/L Normal 0.7-2.1 [facility] Comment on above: Performed By: #### I OCAL, CDP, MG, LACTIC, ALICIA, BNP, BMP #### [facility] [address] [place] [address] Online Services Manager: Bret Vazquez MD Performed By: #### E RTPF, CK, ECENZ, VD25 #### [facility] [address] [place] [address] Online Services Manager: Bret Vazquez MD Magnesiumon 09-06-2022 Magnesium [Mass/Vol] 1.8 mg/dL Normal 1.6-2.6 [facility] Comment on above: Performed By: #### Jose R SAPP UAPriti, UMICAO #### [facility] [address] [place] [address] Online Services Manager: Bret Vazquez MD Performed By: #### CHRISTY MOJICA #### [facility] [address] [place] [address] Online Services Manager: Bret Vazquez MD Magnesium [Mass/Vol] 2.3 mg/dL Normal 1.6-2.6 [facility] Comment on above: Performed By: #### GINI STARKS, UMICAO #### [facility] [address] [place] [address] Online Services Manager: Bret Vazquez MD Performed By: #### E CHRISTY LOPEZ #### [facility] [address] [place] [address] Online Services Manager: Bret Vazquez MD Magnesium [Mass/Vol] 1.7 mg/dL Normal 1.6-2.6 [facility] Comment on above: Performed By: #### I OCAL, CDP, MG, LACTIC, ALICIA, BNP, BMP #### [facility] [address] [place] [address] Online Services Manager: Bret Vazquez MD Performed By: #### E RTPF, CK, ECENZ, VD25 #### [facility] [address] [place] [address] Online Services Manager: Bret Vazquez MD PTon 09-06-2022 INR Coag (PPP) [Relative time] 1.6 {INR} Normal [facility] Comment on above: Result Comment: Therapeutic Range: Moderate Anticoagulant Intensity: INR = 2.0-3.0 High Anticoagulant Intensity: INR = 2.5-3.5 Performed By: #### I OCAL, CDP, MG, LACTIC, ALICIA, BNP, BMP #### [facility] [address] [place] [address] Online Services Manager: Bret Vazquez MD Performed By: #### E RTPF, CK, ECENZ, VD25 #### [facility] [address] [place] [address] Online Services Manager: Bret Vazquez MD PT Coag (PPP) [Time] 16.5 s High 9.1-12.3 [facility] Comment on above: Performed By: #### I OCAL, CDP, MG, LACTIC, ALICIA, BNP, BMP #### [facility] [address] [place] [address] Online Services Manager: Bret Vazquez MD Performed By: #### E RTPF, CK, ECENZ, VD25 #### [facility] [address] [place] [address] Online Services Manager: Bret Vazquez MD Phosphorus, Inorg.on 022 Phosphorus, Inorg. 4.0 mg/dL Normal 2.5-4.5 [facility] Comment on above: Performed By: #### D AU, UAX, UMICAO #### [facility] [address] [place] [address] Online Services Manager: Bret Vazquez MD Performed By: #### E RTPF, GHLTEG #### [facility] [address] [place] [address] Online Services Manager: Bret Vazquez MD Phosphorus, Inorg. 4.0 mg/dL Normal 2.5-4.5 [facility] Comment on above: Performed By: #### I OCAL, CDP, MG, LACTIC, ALICIA, BNP, BMP #### [facility] [address] [place] [address] Online Services Manager: Bret Vazquez MD Performed By: #### E RTPF, CK, ECENZ, VD25 #### [facility] [address] [place] [address] Online Services Manager: Bret Vazquez MD Phosphorus, Inorg. 3.5 mg/dL Normal 2.5-4.5 [facility] Comment on above: Performed By: #### B FRANK, CDP #### [address] [address] Online Services Manager: Bret Vazquez MD Performed By: #### E RTARRON HIGGINS ECENZ, VD25 #### [address] [address] Online Services Manager: Bret Vazquez MD Type + Screenon 09-06-2022 Type + Screen Sample Expiration 09/08/2022,2359 Arm Band Number [id number] ABO/Rh(D) A POSITIVE Antibody Screen NEGATIVE Unit Number [id number] Blood Component Type Leukocyte Reduced Red Cell Unit Division 00 Status of Unit TRANSFUSED Transfusion Status OK TO TRANSFUSE Crossmatch Result COMPATIBLE Unit Number [id number] Blood Component Type Leukocyte Reduced Red Cell Unit Division 00 Status of Unit TRANSFUSED Transfusion Status OK TO TRANSFUSE Crossmatch Result COMPATIBLE Unit Number [id number] Blood Component Type Leukocyte Reduced Red Cell Unit Division 00 Status of Unit TRANSFUSED Transfusion Status OK TO TRANSFUSE Crossmatch Result COMPATIBLE Normal [facility] Comment on above: Performed By: #### B FRANK CDP #### [address] [address] Online Services Manager: Bret Vazquez MD Performed By: #### E RTARRON HIGGINS ECENZ, VD25 #### [address] [address] Online Services Manager: Bret Vazquez MD UA w/Reflex Cultureon 2021 Bilirubin, SemiQt,Ur Negative Normal NEG [facility] Comment on above: Performed By: #### D AU, UAX, UMICAO #### [address] [address] Online Services Manager: Bret Vazquez MD Performed By: #### E RTPF, CK, ECENZ, VD25 #### [address] [address] Online Services Manager: Bret Vazquez MD Blood, Urine Negative Normal NEG [facility] Comment on above: Performed By: #### D AU, UAX, UMICAO #### [address] [address] Online Services Manager: Bret Vazquez MD Performed By: #### E RTPF, CK, ECENZ, VD25 #### [address] [address] Online Services Manager: Bret Vazquez MD Clarity (U) Clear Normal CLEAR [facility] Comment on above: Performed By: #### D AU, UAX, UMICAO #### [address] [address] Online Services Manager: Bret Vazquez MD Performed By: #### E RTPF, CK, ECENZ, VD25 #### [address] [address] Online Services Manager: Bret Vazquez MD Color (U) Yellow Normal YEL [facility] Comment on above: Performed By: #### D AU, UAX, UMICAO #### [address] [address] Online Services Manager: Bret Vazquez MD Performed By: #### E RTPF, CK, ECENZ, VD25 #### [facility] [address] [place] [address] Online Services Manager: Bret Vazquez MD Glucose Ql (U) Negative Normal NEG [facility] Comment on above: Performed By: #### D AU, UAX, UMICAO #### [facility] [address] [place] [address] Online Services Manager: Bret Vazquez MD Performed By: #### E RTPF, CK, ECENZ, VD25 #### [address] [address] Online Services Manager: Bret Vazquez MD Ketones Ql (U) Negative Normal NEG [facility] Comment on above: Performed By: #### D AU, UAX, UMICAO #### [address] [address] Online Services Manager: Bret Vazquez MD Performed By: #### E RTPF, CK, ECENZ, VD25 #### [address] [address] Online Services Manager: Bret Vazquez MD Leukocyte esterase Test strip Ql (U) Negative Normal NEG [facility] Comment on above: Performed By: #### Jose R AU, UAX, UMICAO #### [address] [address] Online Services Manager: Bret Vazquez MD Performed By: #### E RTPF, CK, ECENZ, VD25 #### [address] [address] Online Services Manager: Bret Vazquez MD Nitrite,Ur Negative Normal NEG [facility] Comment on above: Performed By: #### Jose R AU, UAX, UMICAO #### [address] [address] Online Services Manager: Bret Vazquez MD Performed By: #### E RTPF, CK, ECENZ, VD25 #### [facility] [address] [place] [address] Online Services Manager: Bret Vazquez MD PH,Ur 5.0 Normal 5.0-8.0 [facility] Comment on above: Performed By: #### D AU, UAX, UMICAO #### [facility] [address] [place] [address] Online Services Manager: Bret Vazquez MD Performed By: #### E RTPF, CK, ECENZ, VD25 #### [address] [address] Online Services Manager: Bret Vazquez MD Protein Ql (U) TRACE Abnormal NEG [facility] Comment on above: Performed By: #### Jose R SAPP UAX, UMICAO #### [address] [address] Online Services Manager: Bret Vazquez MD Performed By: #### E RTPF, CK, ECENZ, VD25 #### [address] [address] Online Services Manager: Bret Vazquez MD Spec. [employer],Ur 1.070 High 1.005-1.03 0 [facility] Comment on above: Performed By: #### Jose R SAPP, UAX, UMICAO #### [address] [address] Online Services Manager: Bret Vazquez MD Performed By: #### E RTPF, CK, ECENZ, VD25 #### [address] [address] Online Services Manager: Bret Vazquez MD Urobilinogen,Ur Normal Normal NORM [facility] Comment on above: Performed By: #### Jose R SAPP, UAX, UMICAO #### [address] [address] Online Services Manager: Bret Vazquez MD Performed By: #### E RTPF, CK, ECENZ, VD25 #### [address] [address] Online Services Manager: Bret Vazquez MD Urinalysis,Microon 2 Casts 2 TO 5 HYALINE Normal 0-8 [facility] Comment on above: Result Comment: Refe rence range defined for non-centrifuged specimen. Performed By: #### Jose R AU, UAX, UMICAO #### [facility] [address] [place] [address] Online Services Manager: Bret Vazquez MD Performed By: #### E RTPF, CK, ECENZ, VD25 #### [address] [address] Online Services Manager: Bret Vazquez MD Crystals LM Nom (Urine sed) FEW Abnormal NONE [facility] Comment on above: Result Comment: CALC IUM OXALATE Performed By: #### Jose R SAPP UAX, UMICAO #### [address] [address] Online Services Manager: Bret Vazquez MD Performed By: #### E RTPF, CK, ECENZ, VD25 #### [address] [address] Online Services Manager: Bret Vazquez MD Epithelial cells LM Ql (Urine sed) 2 TO 5 Normal 0-5 [facility] Comment on above: Performed By: #### Jose R SAPP UAX, UMICAO #### [address] [address] Online Services Manager: Bret Vazquez MD Performed By: #### E RTPF, CK, ECENZ, VD25 #### [facility] [address] [place] [address] Online Services Manager: Bret Vazquez MD Urine RBC's 0 TO 2 Normal 0-4 [facility] Comment on above: Result Comment: Refe rence range defined for non-centrifuged specimen. Performed By: #### Jose R SAPP, UAX, UMICAO #### [facility] [address] [place] [address] Online Services Manager: Bret Vazquez MD Performed By: #### E RTPF, CK, ECENZ, VD25 #### [facility] [address] [place] [address] Online Services Manager: Bret Vazquez MD Urine WBC's 2 TO 5 Normal 0-5 [facility] Comment on above: Performed By: #### D AU, UAX, UMICAO #### [facility] [address] [place] [address] Online Services Manager: Bret Vazquez MD Performed By: #### E RTPF, CK, ECFARZAD, VD25 #### [facility] [address] [place] [address] Online Services Manager: Bret Vazquez MD XR ANKLE LEFT (2 [...] Mau Tomas MD 09/06/22 Final result Normal [facility] XR ANKLE LEFT (MIN 3 VIEWS)o [...] Bo Jacques MD 09/06/22 Final result Normal [facility] XR ANKLE LEFT (MIN 3 VIEWS) [...] Mau Tomas MD 09/06/22 Final result Normal [facility] XR ANKLE LEFT (MIN 3 VIEWS) [...] Lizet Gonzalez MD 09/05/22 Final result Normal [facility] XR ELBOW LEFT (MIN 3 VIEWS)o [...] Los Araujo MD 09/05/22 Final result Normal [facility] XR ELBOW RIGHT (MIN 3 VIEWS) [...] Lizet Gonzalez MD 09/06/22 Final result Normal [facility] XR FOOT LEFT (MIN 3 VIEWS)on [...] Lizet Gonzalez MD 09/06/22 Final result Normal [facility] XR HAND LEFT (MIN 3 VIEWS)on [...] Aldo Felix MD 09/05/22 Final result Normal [facility] XR HAND RIGHT (MIN 3 VIEWS)o [...] moderate osteoarthritis at right 2nd carpometacarpal joint. [id number] osteoarthritis of right distal radioulnar joint. IMPRESSION: No evidence of acute fracture or dislocation in right hand and wrist. 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 Interpreted by: Lizet Gonzalez MD Signed by: Lizet Gonzalez MD 09/06/22 Final result Normal [facility] XR KNEE LEFT (3 VIEWS)on XR [...] Lizet Gonzalez MD 09/05/22 Final result Normal [facility] XR KNEE RIGHT (1-2 VIEWS)on 09-06-2022 [...] Emili Pugh MD 09/06/22 Final result Normal [facility] XR PELVIS (MIN 3 VIEWS)on XR [...] Lizet Gonzalez MD 09/06/22 Final result Normal [facility] XR RADIUS ULNA LEFT (2 VIEWS [...] Los Araujo MD 09/05/22 Final result Normal [facility] XR RADIUS ULNA RIGHT (2 VIEW [...] Lizet Gonzalez MD 09/06/22 Final result Normal [facility] XR SHOULDER LEFT (MIN 2 VIEW [...] Lizet Gonzalez MD 09/06/22 Final result Normal [facility] XR SHOULDER RIGHT (MIN 2 VIE [...] Lizet Gonzalez MD 09/06/22 Final result Normal [facility] XR TIBIA FIBULA RIGHT (2 VIE [...] Emili Pugh MD 09/06/22 Final result Normal [facility] XR WRIST LEFT (MIN 3 VIEWS)o [...] Aldo Felix MD 09/05/22 Final result Normal [facility] XR WRIST RIGHT (2 VIEWS)on 1 11-06-2021 XR WRIST RIGHT (2 VIEWS) EXAMINATION: 2 XRAY VIEWS OF THE RIGHT WRIST 09/05/2022 11:27 pm COMPARISON: None. HISTORY: ORDERING SYSTEM PROVIDED HISTORY: Trauma/Fracture TECHNOLOGIST PROVIDED HISTORY: Trauma/Fracture FINDINGS: Degenerative changes 1st carpal/metacarpal joint. Cortical margins intact. Alignment anatomic. Soft tissues unremarkable. IMPRESSION: No fracture Interpreted by: Aldo Felix MD Signed by: Aldo Felix MD 09/05/22 Final result Normal [facility] CT CERVICAL SPINE WO CONTRAS Ton [...] Los Araujo MD 09/05/22 Final result Normal [facility] CT CHEST ABDOMEN PELVIS W CO [...] Los Araujo MD 09/05/22 Final result Normal [facility] CT HEAD WO CONTRASTon 2021 CT [...] Rush Saavedra MD 09/05/22 Final result Normal [facility] CT LUMBAR SPINE TRAUMA RECON STRUCTIONon [...] Los Araujo MD 09/05/22 Final result Normal [facility] CT THORACIC SPINE TRAUMA REC ONSTRUCTIONon [...] Los Araujo MD 09/05/22 Final result Normal [facility] Creatine Kinaseon 09-05-2022 CK [Catalytic activity/Vol] 139 U/L Normal 39-308 [facility] Comment on above: Performed By: #### D AU, UAX, UMICAO #### [address] [address] Online Services Manager: Bret Vazquez MD Performed By: #### E RTPF, CK, ECENZ, VD25 #### [address] [address] Online Services Manager: Bret Vazquez MD Trauma Profileon 09-05-2022 Anion gap [Moles/Vol] 11 mmol/L Normal 9-17 [facility] Comment on above: Performed By: #### B MPX, CDP #### [address] [address] Online Services Manager: Bret Vazquez MD Performed By: #### E RTPF, GHLTEG #### [address] [address] Online Services Manager: Bret Vazquez MD Chloride [Moles/Vol] 100 mmol/L Normal 98-107 [facility] Comment on above: Performed By: #### B MPX, CDP #### [address] [address] Online Services Manager: Bret Vazquez MD Performed By: #### E RTPF, GHLTEG #### [address] [address] Online Services Manager: Bret Vazquez MD CO2 [Moles/Vol] 21 mmol/L Normal 20-31 [facility] Comment on above: Performed By: #### B MPX, CDP #### [address] [address] Online Services Manager: Bret Vazquez MD Performed By: #### E RTPF GHLTEG #### [facility] [address] [place] [address] Online Services Manager: Bret Vazquez MD Creatinine [Mass/Vol] 0.71 mg/dL Normal 0.70-1.20 [facility] Comment on above: Performed By: #### B MPX, CDP #### [facility] [address] [place] [address] Online Services Manager: Bret Vazquez MD Performed By: #### E RTPF, GHLTEG #### [facility] [address] [place] [address] Online Services Manager: Bret Vazquez MD Ethanol [Mass/Vol] mg/dL Normal <10 [facility] Comment on above: Performed By: #### B MPX, CDP #### [facility] [address] [place] [address] Online Services Manager: Bret Vazquez MD Performed By: #### E RTPF GHLTEG #### [facility] [address] [place] [address] Online Services Manager: Bret Vazquez MD Ethanol percent <0.010 Normal <0.010 [facility] Comment on above: Performed By: #### B MPX, CDP #### [facility] [address] [place] [address] Online Services Manager: Bret Vazquez MD Performed By: #### E RTPF GHLTEG #### [facility] [address] [place] [address] Online Services Manager: Bret Vazquez MD GFR/1.73 sq M.predicted among non-blacks MDRD (S/P/Bld) [Vol rate/Area] 60 mL/min/{1.73_m2} Low >60 [facility] Comment on above: Result Comment: Effective [...] renal tubular secretion. Performed By: #### B FRANK, CDP #### [address] [address] Online Services Manager: Bret Vazquez MD Performed By: #### E CHRISTY LOPEZ #### [facility] [address] [place] [address] Online Services Manager: Bret Vazquez MD Glucose [Mass/Vol] 278 mg/dL High 70-99 [facility] Comment on above: Performed By: #### B FRANK, CDP #### [address] [address] Online Services Manager: Bret Vazquez MD Performed By: #### CHRISTY MOJICA #### [facility] [address] [place] [address] Online Services Manager: Bret Vazquez MD Potassium [Moles/Vol] 3.3 mmol/L Low 3.7-5.3 [facility] Comment on above: Performed By: #### B FRANK, CDP #### [address] [address] Online Services Manager: Bret Vazquez MD Performed By: #### E CHRISTY LOPEZ #### [facility] [address] [place] [address] Online Services Manager: Bret Vazquez MD Sodium [Moles/Vol] 132 mmol/L Low 135-144 [facility] Comment on above: Performed By: #### B MPPriti, CDP #### [facility] [address] [place] [address] Online Services Manager: Bret Vazquez MD Performed By: #### E RTPF, GHLTEG #### [facility] [address] [place] [address] Online Services Manager: Bret Vazquez MD Urea nitrogen [Mass/Vol] 10 mg/dL Normal 8-23 [facility] Comment on above: Performed By: #### B MPX, CDP #### [facility] [address] [place] [address] Online Services Manager: Bret Vazquez MD Performed By: #### E RTPF, GHLTEG #### [facility] [address] [place] [address] Online Services Manager: Bret Vazquez MD Body Temp. 37.0 Normal [facility] Comment on above: Performed By: #### B MPX, CDP #### [facility] [address] [place] [address] Online Services Manager: Bret Vazquez MD Performed By: #### E RTPF, GHLTEG #### [facility] [address] [place] [address] Online Services Manager: Bret Vazquez MD Carboxy Hgb 2.3 % Normal 0-5 [facility] Comment on above: Result Comment: Reference Range: Non-Smokers 0-2% Average Smoker 2-4% Heavy Smoker <10% Performed By: #### B MPX, CDP #### [facility] [address] [place] [address] Online Services Manager: Bret Vazquez MD Performed By: #### E RTPF, GHLTEG #### [facility] [address] [place] [address] Online Services Manager: Bret Vazquez MD Ethanol [Mass/Vol] mg/dL Normal <10 [facility] Comment on above: Performed By: #### D AU, UAX, UMICAO #### [facility] [address] [place] [address] Online Services Manager: Bret Vazquez MD Performed By: #### E RTPF, CK, ECENZ, VD25 #### [address] [address] Online Services Manager: Bret Vazquez MD Ethanol percent <0.010 Normal <0.010 [facility] Comment on above: Performed By: #### D AU, UAX, UMICAO #### [address] [address] Online Services Manager: Bret Vazquez MD Performed By: #### E RTPF, CK, ECENZ, VD25 #### [address] [address] Online Services Manager: Bret Vazquez MD FIO2 INFORMATION NOT PROVIDED Normal [facility] Comment on above: Performed By: #### B MPX, CDP #### [address] [address] Online Services Manager: Bret Vazquez MD Performed By: #### E RTPF, GHLTEG #### [place] [address] Online Services Manager: Bret Vazquez MD HCO3 (Bld) [Moles/Vol] 22.6 mmol/L Low 24-30 [facility] Comment on above: Performed By: #### B MPX, CDP #### [place] [address] Online Services Manager: Bret Vazquez MD Performed By: #### E RTPF, GHLTEG #### [address] [address] Online Services Manager: Bret Vazquez MD Negative Base Excess 3.3 mmol/L High 0.0-2.0 [facility] Comment on above: Performed By: #### B MPX, CDP #### [address] [address] Online Services Manager: Bret Vazquez MD Performed By: #### E RTRANDOLPH HIGGINSLTEG #### [address] [address] Online Services Manager: Bret Vazquez MD Oxygen saturation in Blood 87.4 % High 60.0-85.0 [facility] Comment on above: Performed By: #### B MPX, CDP #### [address] [address] Online Services Manager: Bret Vazquez MD Performed By: #### E RTRANDOLPH HIGGINSLTEG #### [address] [address] Online Services Manager: Bret Vazquez MD pCO2 47.1 mm Hg Normal 39-55 [facility] Comment on above: Performed By: #### B MPX, CDP #### [address] [address] Online Services Manager: Bret Vazquez MD Performed By: #### E KLARISSA LOPEZEG #### [address] [address] Online Services Manager: Bret Vazquez MD pH (Bld) 7.303 [pH] Low 7.320-7.42 0 [facility] Comment on above: Performed By: #### B MPX, CDP #### [address] [address] Online Services Manager: Bret Vazquez MD Performed By: #### E RTRANDOLPH HIGGINSLTEG #### [facility] [address] [place] [address] Online Services Manager: Bret Vazquez MD pO2 62.0 mm Hg High 30-50 [facility] Comment on above: Performed By: #### B MPX, CDP #### [address] [address] Online Services Manager: Bret Vazquez MD Performed By: #### E KLARISSA LOPEZEG #### [facility] [address] [place] [address] Online Services Manager: Bret Vazquez MD Anion gap [Moles/Vol] 11 mmol/L Normal 9-17 [facility] Comment on above: Performed By: #### GINI STARKS, UMICAO #### [facility] [address] [place] [address] Online Services Manager: Bret Vazquez MD Performed By: #### E RTPChantel CK ECENZ, VD25 #### [facility] [address] [place] [address] Online Services Manager: Bret Vazquez MD Chloride [Moles/Vol] 106 mmol/L Normal 98-107 [facility] Comment on above: Performed By: #### GINI STARKS, UMICAO #### [facility] [address] [place] [address] Online Services Manager: Bret Vazquez MD Performed By: #### Isidro RTPChantel CK ECENZ, VD25 #### [facility] [address] [place] [address] Online Services Manager: Bret Vazquez MD CO2 [Moles/Vol] 21 mmol/L Normal 20-31 [facility] Comment on above: Performed By: #### Jose R SAPP, UAX, UMICAO #### [facility] [address] [place] [address] Online Services Manager: Bret Vazquez MD Performed By: #### E RTPF, CK, ECENZ, VD25 #### [facility] [address] [place] [address] Online Services Manager: Bret Vazquez MD Creatinine [Mass/Vol] 0.76 mg/dL Normal 0.70-1.20 [facility] Comment on above: Performed By: #### D SENAIT UAX, UMICAO #### [address] [address] Online Services Manager: Bret Vazquez MD Performed By: #### E RTPF, CK, ECENZ, VD25 #### [address] [address] Online Services Manager: Bret Vazquez MD GFR/1.73 sq M.predicted among non-blacks MDRD (S/P/Bld) [Vol rate/Area] 60 mL/min/{1.73_m2} Low >60 [facility] Comment on above: Result Comment: Effective [...] renal tubular secretion. Performed By: #### D GINI SAPP, UMICAO #### [address] [address] Online Services Manager: Bret Vazquez MD Performed By: #### E RTPF, CK, ECENZ, VD25 #### [facility] [address] [place] [address] Online Services Manager: Bret Vazquez MD Glucose [Mass/Vol] 113 mg/dL High 70-99 [facility] Comment on above: Performed By: #### Jose R SAPP UAPriti, UMICAO #### [facility] [address] [place] [address] Online Services Manager: Bret Vazquez MD Performed By: #### E RTPF, CK, ECENZ, VD25 #### [facility] [address] [place] [address] Online Services Manager: Bret Vazquez MD Potassium [Moles/Vol] 3.9 mmol/L Normal 3.7-5.3 [facility] Comment on above: Performed By: #### GINI STARKS, UMICAO #### [address] [address] Online Services Manager: Bret Vazquez MD Performed By: #### E RTPF, CK, ECENZ, VD25 #### [address] [address] Online Services Manager: Bret Vazquez MD Sodium [Moles/Vol] 138 mmol/L Normal 135-144 [facility] Comment on above: Performed By: #### GINI STARKS, UMICAO #### [address] [address] Online Services Manager: Bret Vazquez MD Performed By: #### E RTPF, CK, ECENZ, VD25 #### [address] [address] Online Services Manager: Bret Vazquez MD Urea nitrogen [Mass/Vol] 11 mg/dL Normal 8-23 [facility] Comment on above: Performed By: #### GINI STARKS, UMICAO #### [address] [address] Online Services Manager: Bret Vazquez MD Performed By: #### E RTPF, CK, ECENZ, VD25 #### [facility] [address] [place] [address] Online Services Manager: Bret Vazquez MD aPTT Coag (Bld) [Time] 26.0 s Normal 20.5-30.5 [facility] Comment on above: Result Comment: IV Heparin Therapy Range: 48.6-77.8 Performed By: #### Jose R SAPP UAX, UMICAO #### [address] [address] Online Services Manager: Bret Vazquez MD Performed By: #### E RTPF, CK, ECENZ, VD25 #### [facility] [address] [place] [address] Online Services Manager: Bret Vazquez MD INR Coag (PPP) [Relative time] 2.1 {INR} Normal [facility] Comment on above: Result Comment: Therapeutic Range: Moderate Anticoagulant Intensity: INR = 2.0-3.0 High Anticoagulant Intensity: INR = 2.5-3.5 Performed By: #### D AU, UAX, UMICAO #### [facility] [address] [place] [address] Online Services Manager: Bret Vazquez MD Performed By: #### E RTPF, CK, ECENZ, VD25 #### [facility] [address] [place] [address] Online Services Manager: Bret Vazquez MD PT Coag (PPP) [Time] 20.8 s High 9.1-12.3 [facility] Comment on above: Performed By: #### D AU, UAX, UMICAO #### [facility] [address] [place] [address] Online Services Manager: Bret Vazquez MD Performed By: #### E RTPF, CK, ECENZ, VD25 #### [facility] [address] [place] [address] Online Services Manager: Bret Vazquez MD Body Temp. 37.0 Normal [facility] Comment on above: Performed By: #### D AU, UAX, UMICAO #### [facility] [address] [place] [address] Online Services Manager: Bret Vazquez MD Performed By: #### E RTPF, CK, ECENZ, VD25 #### [facility] [address] [place] [address] Online Services Manager: Bret Vazquez MD Carboxy Hgb 0.6 % Normal 0-5 [facility] Comment on above: Result Comment: Reference Range: Non-Smokers 0-2% Average Smoker 2-4% Heavy Smoker <10% Performed By: #### D AU, UAX, UMICAO #### [address] [address] Online Services Manager: Bret Vazquez MD Performed By: #### E RTPF, CK, ECENZ, VD25 #### [address] [address] Online Services Manager: Bret Vazquez MD FIO2 INFORMATION NOT PROVIDED Normal [facility] Comment on above: Performed By: #### Jose R AU, UAX, UMICAO #### [facility] [address] [place] [address] Online Services Manager: Bret Vazquez MD Performed By: #### E RTPF, CK, ECENZ, VD25 #### [address] [address] Online Services Manager: Bret Vazquez MD HCO3 (Bld) [Moles/Vol] 24.8 mmol/L Normal 24-30 [facility] Comment on above: Performed By: #### Jose R SAPP, UAX, UMICAO #### [address] [address] Online Services Manager: Bret Vazquez MD Performed By: #### E RTPF, CK, ECENZ, VD25 #### [facility] [address] [place] [address] Online Services Manager: Bret Vazquez MD Negative Base Excess 1.2 mmol/L Normal 0.0-2.0 [facility] Comment on above: Performed By: #### Jose R AU, UAX, UMICAO #### [facility] [address] [place] [address] Online Services Manager: Bret Vazquez MD Performed By: #### E RTPF, CK, ECENZ, VD25 #### [facility] [address] [place] [address] Online Services Manager: Bret Vazquez MD Oxygen saturation in Blood 45.2 % Low 60.0-85.0 [facility] Comment on above: Performed By: #### Jose R SAPP, UAX, UMICAO #### [facility] [address] [place] [address] Online Services Manager: Bret Vazquez MD Performed By: #### E RTPF, CK, ECENZ, VD25 #### [facility] [address] [place] [address] Online Services Manager: Bret Vazquez MD pCO2 49.5 mm Hg Normal 39-55 [facility] Comment on above: Performed By: #### Jose R SAPP UAX, UMICAO #### [facility] [address] [place] [address] Online Services Manager: Bret Vazquez MD Performed By: #### E RTPF, CK, ECENZ, VD25 #### [facility] [address] [place] [address] Online Services Manager: Bret Vazquez MD pH (Bld) 7.320 [pH] Normal 7.320-7.42 0 [facility] Comment on above: Performed By: #### Jose R SAPP, UAX, UMICAO #### [facility] [address] [place] [address] Online Services Manager: Bret Vazquez MD Performed By: #### E RTPF, CK, ECENZ, VD25 #### [facility] [address] [place] [address] Online Services Manager: Bret Vazquez MD pO2 27.1 mm Hg Low 30-50 [facility] Comment on above: Performed By: #### Jose R AU, UAX, UMICAO #### [address] [address] Online Services Manager: Bret Vazquez MD Performed By: #### E RTPF, CK, ECENZ, VD25 #### [address] [address] Online Services Manager: Bret Vazquez MD Erythrocyte distribution width (RBC) [Ratio] 15.9 % High 11.8-14.4 [facility] Comment on above: Performed By: #### Jose R SAPP, UAX, UMICAO #### [address] [address] Online Services Manager: Bret Vazquez MD Performed By: #### E RTPF, CK, ECENZ, VD25 #### [facility] [address] [place] [address] Online Services Manager: Bret Vazquez MD Hematocrit (Bld) [Volume fraction] 38.2 % Low 40.7-50.3 [facility] Comment on above: Performed By: #### Jose R SAPP UAX, UMICAO #### [address] [address] Online Services Manager: Bret Vazquez MD Performed By: #### E RTPF, CK, ECENZ, VD25 #### [address] [address] Online Services Manager: Bret Vazquez MD Hemoglobin (Bld) [Mass/Vol] 12.3 g/dL Low 13.0-17.0 [facility] Comment on above: Performed By: #### Jose R SAPP UAX, UMICAO #### [facility] [address] [place] [address] Online Services Manager: Bret Vazquez MD Performed By: #### E RTPF, CK, ECENZ, VD25 #### [facility] [address] [place] [address] Online Services Manager: Bret Vazquez MD MCH (RBC) [Entitic mass] 32.1 pg Normal 25.2-33.5 [facility] Comment on above: Performed By: #### Jose R SAPP, UAX, UMICAO #### [address] [address] Online Services Manager: Bret Vazquez MD Performed By: #### E RTPF, CK, ECENZ, VD25 #### [address] [address] Online Services Manager: Bret Vazquez MD MCHC (RBC) [Mass/Vol] 32.2 g/dL Normal 28.4-34.8 [facility] Comment on above: Performed By: #### Jose R SAPP UAX, UMICAO #### [address] [address] Online Services Manager: Bret Vazquez MD Performed By: #### E RTPF, CK, ECENZ, VD25 #### [address] [address] Online Services Manager: Bret Vazquez MD MCV (RBC) [Entitic vol] 99.7 fL Normal 82.6-102.9 M [facility] Comment on above: Performed By: #### GINI STARKS, UMICAO #### [address] [address] Online Services Manager: Bret Vazquez MD Performed By: #### E RTPF, CK, ECENZ, VD25 #### [address] [address] Online Services Manager: Bret Vazquez MD NRBC Automated 0.0 per 100 WBC Normal 0.0 [facility] Comment on above: Performed By: #### Jose R SAPP, UAX, UMICAO #### [address] [address] Online Services Manager: Bret Vazquez MD Performed By: #### E RTPF, CK, ECENZ, VD25 #### [facility] [address] [place] [address] Online Services Manager: Bret Vazquez MD Platelet mean volume (Bld) [Entitic vol] 10.0 fL Normal 8.1-13.5 [facility] Comment on above: Performed By: #### D AU, UAX, UMICAO #### [facility] [address] [place] [address] Online Services Manager: Bret Vazquez MD Performed By: #### E RTPF, CK, ECENZ, VD25 #### [facility] [address] [place] [address] Online Services Manager: Bret Vazquez MD Platelets (Bld) [#/Vol] 307 10*3/uL Normal 138-453 [facility] Comment on above: Performed By: #### D AU, UAX, UMICAO #### [address] [address] Online Services Manager: Bret Vazquez MD Performed By: #### E RTPF, CK, ECENZ, VD25 #### [address] [address] Online Services Manager: Bret Vazquez MD RBC (Bld) [#/Vol] 3.83 10*6/uL Low 4.21-5.77 [facility] Comment on above: Performed By: #### D AU, UAX, UMICAO #### [facility] [address] [place] [address] Online Services Manager: Bret Vazquez MD Performed By: #### E RTPF, CK, ECENZ, VD25 #### [facility] [address] [place] [address] Online Services Manager: Bret Vazquez MD WBC (Bld) [#/Vol] 11.5 10*3/uL High 3.5-11.3 [facility] Comment on above: Performed By: #### GINI STARKS, UMICAO #### [facility] [address] [place] [address] Online Services Manager: Bret Vazquez MD Performed By: #### E RTPF, CK, ECENZ, VD25 #### [facility] [address] [place] [address] Online Services Manager: Bret Vazquez MD [employer] BILL FOR SERVICES PERFORMED Normal [facility] Comment on above: Performed By: #### GINI STARKS, UMICAO #### [facility] [address] [place] [address] Online Services Manager: Bret Vazquez MD Performed By: #### Isidro RTPF, CK, ECENZ, VD25 #### [facility] [address] [place] [address] Online Services Manager: Bret Vazquez MD Trop/Myoglobinon 09-05-2022 Myoglobin [Mass/Vol] 377 ng/mL High 28-72 [facility] Comment on above: Performed By: #### GINI STARKS, UMICAO #### [facility] [address] [place] [address] Online Services Manager: Bret Vazquez MD Performed By: #### E RTPF, CK, ECENZ, VD25 #### [facility] [address] [place] [address] Online Services Manager: Bret Vazquez MD Troponin, High Sens 12 ng/L Normal 0-22 [facility] Comment on above: Result Comment: High Sensitivity Troponin values cannot be compared with other Troponin methodologies. Patients with high levels of Biotin oral intake (i.e >5mg/day) may have falsely decreased Troponin levels. Samples collected within 8 hours of biotin intake may require additional information for diagnosis. Performed By: #### Jose R SAPP, UAX, UMICAO #### [email or web address] [address] [place] [address] Online Services Manager: Bret Vazquez MD Performed By: #### E RTPF, CK, ECENZ, VD25 #### [email or web address] [address] [place] [address] Online Services Manager: Bret Vazquez MD Vitamin D 25 OHon 09-05-2022 Vitamin D 25 OH 37.8 ng/mL Normal >29.9 [facility] Comment on above: Result Comment: Reference Range: Vitamin D status Range Deficiency <20 ng/mL Mild Deficiency 20-30 ng/mL Sufficiency 30-100 ng/mL Toxicity >100 ng/mL Performed By: #### D SENAIT, UAX, UMICAO #### [facility] [address] [place] [address] Online Services Manager: Bret Vazquez MD Performed By: #### E RTPF, CK, ECENZ, VD25 #### [facility] [address] [place] [address] Online Services Manager: Bret Vazquez MD XR TIBIA FIBULA LEFT [...] Araujo MD Signed by: Los Araujo MD 11/13/22 Final result Normal [facility] Q - CBC (H/H,RBC,INDICES,WBC ,PLT)on 03-11-2022 Erythrocyte distribution width (RBC) [Ratio] 13.7 % Normal 11.0-15.0 [place] [employer] Comment on above: Order Comment: [facility] performed at: [employer] [facility], [address] , [address] [place] [address], [address] [place] [address], [employer]: Juan Daniel Mckeon Collection Date/Time: Results Received Date/Time: [id number] Reported Date/Time: Performed By: #### T SH, CMP, LIPD #### [facility] [address] [place], [place] [id number] Hematocrit (Bld) [Volume fraction] 42.5 % Normal 38.5-50.0 [facility] Senior Credit Officer Comment on above: Order Comment: [facility] performed at: [employer] [facility], [address] , [address] [place] [address], [address] [place] [address], [employer]: Juan Daniel Mckeon Collection Date/Time: Results Received Date/Time: [id number] Reported Date/Time: Performed By: #### T SH, CMP, LIPD #### [facility] [address] [place], [place] [id number] Hemoglobin (Bld) [Mass/Vol] 14.3 g/dL Normal 13.2-17.1 [facility] Senior Credit Officer Comment on above: Order Comment: [facility] performed at: [employer] [employer] [facility], [address] , [address] [place] [address], [address] [place] [address], [employer]: Juan Daniel Mckeon Collection Date/Time: Results Received Date/Time: [id number] Reported Date/Time: Performed By: #### T SH, CMP, LIPD #### [facility] [address], [place] [id number] MCH (RBC) [Entitic mass] 32.9 pg Normal 27.0-33.0 [facility] Comment on above: Order Comment: [facility] performed at: [facility] [employer] [facility], [address] [place] [address], [address] [place] [address], [phone], [employer]: Juan Daniel Mckeon Collection Date/Time: Results Received Date/Time: [id number] Reported Date/Time: Performed By: #### T SH, CMP, LIPD #### [facility] [address] [place], [place] [id number] MCHC (RBC) [Mass/Vol] 33.6 g/dL Normal 32.0-36.0 [facility] Specialist Comment on above: Order Comment: [facility] performed at: [facility] [employer] [facility], [address] [place] [address], [address] [place] [address], [phone], [employer]: Juan Daniel Mckeon Collection Date/Time: [id number] Results Received Date/Time: Reported Date/Time: Performed By: #### T SH, CMP, LIPD #### [facility] [address] [place], [place] [id number] MCV (RBC) [Entitic vol] 97.9 fL Normal 80.0-100.0 N [facility] Comment on above: Order Comment: [facility] performed at: [employer] [facility], [address] [place] [address], [address] [place] [address], [phone], [employer]: Juan Daniel Mckeon Collection Date/Time: Results Received Date/Time: [id number] Reported Date/Time: Performed By: #### T SH, CMP, LIPD #### [facility] [address] [place], [place] [id number] Platelet mean volume (Bld) [Entitic vol] 11.0 fL Normal 7.5-12.5 [facility] Comment on above: Order Comment: [facility] performed at: [employer] [facility], [address] [place] [address], [address] [place] [address], [address] [place] [address], [employer]: Juan Daniel Mckeon Collection Date/Time: Results Received Date/Time: Reported Date/Time: Performed By: #### T SH, CMP, LIPD #### [facility] [address] [place], [place] [id number] Platelets (Bld) [#/Vol] 398 10*3/uL Normal 140-400 [facility] Comment on above: Order Comment: [facility] performed at: [employer] [facility], [address] [facility], [address] [place] [address], [address] [place] [address], [employer]: Juan Daniel Mckeon Collection Date/Time: Results Received Date/Time: Reported Date/Time: Performed By: #### T SH, CMP, LIPD #### [facility] [address] [place], [place] [id number] RBC (Bld) [#/Vol] 4.34 10*6/uL Normal 4.20-5.80 [facility] Comment on above: Order Comment: [facility] performed at: [employer] [facility], [address] [place] [address], [address] [place] [address], [address] [place] [address], [employer]: Juan Daniel Mckeon Collection Date/Time: Results Received Date/Time: [id number] Reported Date/Time: Performed By: #### T SH, CMP, LIPD #### [facility] [address] [place], [place] [id number] WBC (Bld) [#/Vol] 9.7 10*3/uL Normal 3.8-10.8 [facility] Comment on above: Order Comment: [facility] performed at: [facility], [address], [address] [facility], [place], [address], [employer]: Juan Daniel Cool MDQuest Collection Date/Time: [id number] Results Received Date/Time: [id number] Reported Date/Time: Performed By: #### T SH, CMP, LIPD #### [facility] [address] [place], [place] [id number] Comprehensive Metabolic Pane [facility] 03-08-2022 Albumin [Mass/Vol] 3.2 g/dL Low 3.6-5.1 [facility] Specialist Comment on above: Performed By: #### T SH, CMP, LIPD #### [facility] [address] [place], [place] [id number] Albumin/Globulin [Mass ratio] 1.2 {ratio} Normal 1.0-2.5 [facility] Comment on above: Performed By: #### T SH, CMP, LIPD #### [facility] [address] [place], [place] [id number] ALP [Catalytic activity/Vol] 100 U/L Normal 40-129 [facility] Comment on above: Performed By: #### T SH, CMP, LIPD #### [facility] [address] [place], [place] [id number] ALT [Catalytic activity/Vol] 11 U/L Normal 9-46 [facility] Comment on above: Result Comment: 09/23 Female reference range changed. Performed By: #### T SH, CMP, LIPD #### [facility] [address] [place], [place] [id number] Anion gap [Moles/Vol] 18 mmol/L Normal 12-20 [facility] Comment on above: Result Comment: Effe ctive 10/29/2019 reference range changed. Performed By: #### T SH, CMP, LIPD #### [facility] [address] [place], [place] [id number] AST [Catalytic activity/Vol] 14 U/L Normal 10-40 [facility] Comment on above: Performed By: #### T SH, CMP, LIPD #### [facility] [address] [place], [place] [id number] Bilirubin [Mass/Vol] 1.17 mg/dL Normal 0.30-1.20 [facility] Comment on above: Performed By: #### T SH, CMP, LIPD #### [facility] [address] [place], [place] [id number] BUN/CREA 14 Ratio Normal 6-22 [facility] Comment on above: Performed By: #### T SH, CMP, LIPD #### [facility] [address] [place], [place] [id number] Calcium [Mass/Vol] 8.3 mg/dL Low 8.6-10.2 [facility] Comment on above: Performed By: #### T NELY, CMP, LIPD #### [facility] [address] [place], [place] [id number] Chloride [Moles/Vol] 103 mmol/L Normal 98-107 [facility] Comment on above: Performed By: #### T NELY, CMP, LIPD #### [facility] [address] [place], [place] [id number] CO2 [Moles/Vol] 25 mmol/L Normal 20-31 [facility] Comment on above: Performed By: #### T SH, CMP, LIPD #### [facility] [address] [place], [place] [id number] Creatinine [Mass/Vol] 0.8 mg/dL Normal 0.7-1.4 [facility] Comment on above: Performed By: #### T SH, CMP, LIPD #### [facility] [address] [place], [place] [id number] eGFRAA 118 mL/min/1.73m2 Normal >60 [facility] Comment on above: Performed By: #### T SH, CMP, LIPD #### [facility] [address] [place], [place] [id number] eGFRNAA 97 mL/min/1.73m2 Normal >60 [facility] Comment on above: Performed By: #### T SH, CMP, LIPD #### [facility] [address] [place], [place] [id number] Globulin (S) [Mass/Vol] 2.6 g/dL Normal 1.9-3.7 [facility] [place] [employer] Comment on above: Performed By: #### T SH, CMP, LIPD #### [facility] [address] [place], [place] [id number] Glucose [Mass/Vol] 110 mg/dL High 65-99 Brigitte mcarthur [place] [employer] Comment on above: Result Comment: For FASTING Glucose --- ADA reference ranges: Normal 65-99 mg/dl Prediabetes 100-125 Diabetes >/= 126 Performed By: #### T SH, CMP, LIPD #### [facility] [address] [place], [place] [id number] Potassium [Moles/Vol] 3.5 mmol/L Normal 3.5-5.5 [facility] Senior Credit Officer Comment on above: Performed By: #### T SH, CMP, LIPD #### [facility] [address] [place], [place] [id number] Protein [Mass/Vol] 5.8 g/dL Low 6.1-8.1 Brigitte mcarthur [place] [employer] Comment on above: Performed By: #### T SH, CMP, LIPD #### [facility] [address] [place], [place] [id number] Sodium [Moles/Vol] 142 mmol/L Normal 135-146 Brigitte mcarthur [place] [employer] Comment on above: Performed By: #### T SH, CMP, LIPD #### [facility] [address] [place], [place] [id number] Urea nitrogen [Mass/Vol] 11 mg/dL Normal 7-25 [facility] Senior Credit Officer Comment on above: Performed By: #### T SH, CMP, LIPD #### [facility] [address] [place], [place] [id number] Lipid Panelon 03-08-2022 Cholesterol [Mass/Vol] 177 mg/dL Normal 125-200 No [facility] [place] [facility] Comment on above: Result Comment: Low risk < 200mg/dL Borderline risk 201-239 mg/dl High risk > or equal to 240 Performed By: #### T SH, CMP, LIPD #### [facility] [address] [place], [place] [id number] Cholesterol in HDL [Mass/Vol] 87 mg/dL Normal >40 [facility] Comment on above: Result Comment: High Cardiovascular Risk HDL <40 mg/dL Low Cardiovascular Risk HDL > or equal to 60 mg/dl Performed By: #### T SH, CMP, LIPD #### [facility] [address] [place], [place] [id number] Cholesterol in LDL [Mass/Vol] 64 mg/dL Normal [facility] Comment on above: Result Comment: LDL ATP III CLASSIFICATION LDL less than 100 mg/dl Optimal LDL 100-129 mg/dl Near or above optimal LDL 130-159 Borderline high LDL 160-189 High LDL greater than 189 mg/dl Very High Performed By: #### T SH, CMP, LIPD #### [facility] [address] [place], [place] [id number] Cholesterol in VLDL [Mass/Vol] 26 mg/dL Normal [facility] Senior Credit Officer Comment on above: Performed By: #### T SH, CMP, LIPD #### [facility] [address] [place], [place] [id number] Cholesterol.total/Choles terol in HDL [Mass ratio] 2 {ratio} Normal [facility] Comment on above: Performed By: #### T SH, CMP, LIPD #### [facility] [address] [place], [place] [id number] Triglyceride [Mass/Vol] 131 mg/dL Normal 30-150 N [facility] Specialist Comment on above: Result Comment: TRIG ATPIII CLASSIFICATIONS TRIG less than 150 mg/dl Normal TRIG 150-199 mg/dl Borderline High TRIG 200-500 mg/dl High TRIG greather than 500 mg/dl Very High Performed By: #### T SH, CMP, LIPD #### [facility] [address] [place], [place] [id number] PSA SCREEN (MEDICARE)on 02-21 TPSA 6.330 ng/mL High <4.000 [facility] Senior Credit Officer Comment on above: Result Comment: PSA Test Method: ECLIA/Horacio e 601 Performed By: #### T SH, CMP, LIPD #### [facility] [address] [place], [place] [id number] TSHon 03-08-2022 TSH 1.060 uIU/mL Normal 0.400-4.50 0 [facility] Senior Credit Officer Comment on above: Performed By: #### T NELY, RAMONA, MIA #### [facility] [address] [place], [place] [id number] Operative Reporton 2 Operative Report MR#: [id number] I [facility] Pt. Name: Indio Collado Room #: [id number] Discharge 02/16/2022 Date: Birthdate: 1955 OPERATIVE REPORT DATE OF SURGERY: 02/15/2022 SURGEON: Christopher Yang M.D. ASSISTANT REFINERY OPERATOR: MD Kell and ANABELL Cedeño. ANESTHESIA: General [...] arthrotomy was closed itself with #2 interrupted [id number] suture. The remainder of the incision closed [...] Yang M.D. Date Trans: 02/17/2022 01:02 P/mmo [id number] cc: Christopher Velazquez M.D. [address] [place] [address] Normal [facility] BASIC METABOLIC PANELon 01-23 Calcium [Mass/Vol] 8.1 mg/dL Low 8.6-10.3 [facility] Comment on above: Order Comment: No: D o not add to previous draw Performed By: #### 3 1595 #### [facility] [address] [place] [address], [place] Chloride [Moles/Vol] 101 mmol/L Normal 98-107 [facility] Comment on above: Order Comment: No: D o not add to previous draw Performed By: #### 3 1595 #### [facility] [address] [place] [address], [place] CO2 [Moles/Vol] 27 mmol/L Normal 21-31 [facility] Comment on above: Order Comment: No: D o not add to previous draw Performed By: #### 3 1595 #### [facility] [address] [place] [address], [place] Creatinine [Mass/Vol] 0.68 mg/dL Low 0.70-1.30 [facility] Comment on above: Order Comment: No: D o not add to previous draw Performed By: #### 3 1595 #### [facility] [address] [place] [address], [place] GFR/1.73 sq M.predicted among blacks MDRD (S/P/Bld) [Vol rate/Area] mL/min/{1.73_m2} Normal >60 [facility] Comment on above: Order Comment: No: D o not add to previous draw Performed By: #### 3 1595 #### [facility] [address] [place] [address], [place] GFR/1.73 sq M.predicted among non-blacks MDRD (S/P/Bld) [Vol rate/Area] mL/min/{1.73_m2} Normal >60 [facility] Comment on above: Order Comment: No: D o not add to previous draw Performed By: #### 3 1595 #### [facility] [address] [place] [address], [place] Glucose [Mass/Vol] 124 mg/dL High 70-100 [facility] Comment on above: Order Comment: No: D o not add to previous draw Performed By: #### 3 1595 #### [facility] [address] [place] [address], [place] Potassium [Moles/Vol] 3.3 mmol/L Low 3.5-5.1 [facility] Comment on above: Order Comment: No: D o not add to previous draw Performed By: #### 3 1595 #### [facility] [address] [place] [address], [place] Sodium [Moles/Vol] 136 mmol/L Normal 136-145 [facility] Comment on above: Order Comment: No: D o not add to previous draw Performed By: #### 3 1595 #### [facility] [address] [place] [address], [place] Urea nitrogen [Mass/Vol] 11 mg/dL Normal 7-25 [facility] Comment on above: Order Comment: No: D o not add to previous draw Performed By: #### 3 1595 #### [facility] [address] CBC W/DIFFon 02-16-2022 ABS IMM GRANS 0.1 10*3/uL Normal 0.0-0.2 [facility] Comment on above: Order Comment: No: D o not add to previous draw Performed By: #### 3 1595 #### [facility] [address] [place] [address], [facility] ABS NEUTROPHILS 11.2 10*3/uL High 1.6-7.6 [facility] Comment on above: Order Comment: No: D o not add to previous draw Performed By: #### 3 1595 #### [facility] [address] [place] [address], [facility] Basophils (Bld) [#/Vol] 0.0 10*3/uL Normal 0.0-0.2 [facility] Comment on above: Order Comment: No: D o not add to previous draw Performed By: #### 3 1595 #### [facility] [address] [place] [address], [facility] Basophils/100 WBC (Bld) 0.1 % Normal 0.0-1.0 T [place] Comment on above: Order Comment: No: D o not add to previous draw Performed By: #### 3 1595 #### [facility] [address] [place] [address], [facility] Eosinophils (Bld) [#/Vol] 0.0 10*3/uL Normal 0.0-0.5 [facility] Comment on above: Order Comment: No: D o not add to previous draw Performed By: #### 3 1595 #### [facility] [address] [place] [address], [facility] Eosinophils/100 WBC (Bld) 0.0 % Normal 0.0-6.0 [facility] Comment on above: Order Comment: No: D o not add to previous draw Performed By: #### 3 1595 #### [facility] [address] [place] [address], [facility] Erythrocyte distribution width (RBC) [Ratio] 15.9 % High 11.5-15.0 [facility] Comment on above: Order Comment: No: D o not add to previous draw Performed By: #### 3 1595 #### [facility] [address] [place] [address], [facility] Hematocrit (Bld) [Volume fraction] 34.9 % Low 39.0-50.0 [facility] Comment on above: Order Comment: No: D o not add to previous draw Performed By: #### 3 1595 #### [facility] [address] [place] [address], [facility] Hemoglobin (Bld) [Mass/Vol] 12.0 g/dL Low 13.0-17.0 [facility] Comment on above: Order Comment: No: D o not add to previous draw Performed By: #### 3 1595 #### [facility] [address] [place] [id number], [facility] IMMATURE GRANS 0.5 % Normal 0.0-1.0 [facility] Comment on above: Order Comment: No: D o not add to previous draw Performed By: #### 3 1595 #### [facility] [address] [place] [address], [facility] Lymphocytes (Bld) [#/Vol] 0.8 10*3/uL Low 1.2-4.0 [facility] Comment on above: Order Comment: No: D o not add to previous draw Performed By: #### 3 1595 #### [facility] [address] [place] [id number], [facility] Lymphocytes/100 WBC (Bld) 6.4 % Low 20.0-45.0 [facility] Comment on above: Order Comment: No: D o not add to previous draw Performed By: #### 3 1595 #### [facility] [address] [place] [address], [facility] MCH (RBC) [Entitic mass] 31.9 pg Normal 27.0-33.0 [facility] Comment on above: Order Comment: No: D o not add to previous draw Performed By: #### 3 1595 #### [facility] [address] [place] [address], [facility] MCHC (RBC) [Mass/Vol] 34.4 g/dL Normal 32.0-35.0 [facility] Comment on above: Order Comment: No: D o not add to previous draw Performed By: #### 3 1595 #### [facility] [address] [place] [id number], [facility] MCV (RBC) [Entitic vol] 92.8 fL Normal 82.0-98.0 T he [facility] Comment on above: Order Comment: No: D o not add to previous draw Performed By: #### 3 1595 #### [facility] [address] [place] [id number], [facility] Monocytes (Bld) [#/Vol] 0.8 10*3/uL Normal 0.1-1.0 The [facility] Comment on above: Order Comment: No: D o not add to previous draw Performed By: #### 3 1595 #### [facility] [address] [place] [address], [facility] MONOS 5.9 % Normal 5.0-12.0 The [facility] Comment on above: Order Comment: No: D o not add to previous draw Performed By: #### 3 1595 #### [facility] [address] [place] [id number], [facility] Neutrophils/100 WBC (Bld) 87.1 % High 40.0-72.0 The [facility] Comment on above: Order Comment: No: D o not add to previous draw Performed By: #### 3 1595 #### [facility] [address] [place] Nucleated RBC/100 WBC (Bld) [Ratio] 0 % Normal 0-0 The [facility] Comment on above: Order Comment: No: D o not add to previous draw Performed By: #### 3 1595 #### [facility] [address] [place] [address], [facility] PLAT CNT 250 10*3/uL Normal 150-400 The [facility] Comment on above: Order Comment: No: D o not add to previous draw Performed By: #### 3 1595 #### [facility] [address] [address], [facility] RBC (Bld) [#/Vol] 3.76 10*6/uL Low 4.20-5.70 The [facility] Comment on above: Order Comment: No: D o not add to previous draw Performed By: #### 3 1595 #### [facility] [address] [place] [address], [facility] WBC (Bld) [#/Vol] 12.88 10*3/uL High 4.00-10.60 The [facility] Comment on above: Order Comment: No: D o not add to previous draw Performed By: #### 3 1595 #### [facility] [address] [place] [address], [facility] PROTHROMBIN TIMEon 2 INR Coag (PPP) [Relative time] 1.20 {INR} High 0.91-1.16 The [facility] Comment on above: Order Comment: [...] 1995;108:231S-246S. Performed By: #### 3 1595 #### [facility] [address] PT Coag (PPP) [Time] 15.2 s High 12.3-14.8 The [facility] Comment on above: Order Comment: No: D o not add to previous draw Result Comment: ALL RESULTS MUST BE INTERPRETED WITH RESPECT TO BLOOD DRAWING ARTIFACT OR DILUTION ERROR OF ANTICOAGULANT AT THE TIME OF SAMPLING. Performed By: #### 3 1595 #### [facility] 3000 [facility] [address] *ANAEROBIC CULTUREon 022 *ANAEROBIC CULTURE Clinical Report: (D) Specimen/Source: TISSUE/INTRAOP SPEC Collected: 02/15/2022 10:06 Status: Final Last Updated: 02/20/2022 09:09 (1) 3. Right Medial Lateral Synovium CULT RES (Final) No Anaerobes Isolated 5 Days Normal The [facility] Comment on above: Order Comment: 3. Ri ght Medial Lateral Synovium Performed By: #### 3 0312 #### [facility] 3000 [facility]. [address] *ANAEROBIC CULTURE Clinical Report: (D) Specimen/Source: FLUID/INTRAOP SPEC Collected: 02/15/2022 10:06 Status: Final Last Updated: 02/20/2022 09:09 (1) 1. Right Knee Joint Fluid CULT RES (Final) No Anaerobes Isolated 5 Days Normal The [facility] Comment on above: Order Comment: 1. Ri ght Knee Joint Fluid Performed By: #### 3 0312 #### [facility] 3000 [place], [place] [id number] [place] [address] *ANAEROBIC CULTURE Clinical Report: (D) Specimen/Source: TISSUE/INTRAOP SPEC Collected: 02/15/2022 10:06 Status: Final Last Updated: 02/20/2022 09:09 (1) 2. Right Knee Medial Synovium CULT RES (Final) No Anaerobes Isolated 5 Days Normal The [facility] Comment on above: Order Comment: 2. Ri ght Knee Medial Synovium Performed By: #### 3 1595 #### [facility] 3000 [place], [place] [id number] [place] [address] *BODY FLUID CULTUREon 2021 *BODY FLUID CULTURE Clinical Report: (D) Specimen/Source: FLUID/INTRAOP SPEC Collected: 02/15/2022 10:06 Status: Final Last Updated: 02/20/2022 07:33 (1) 1. Right Knee Joint Fluid GRAM (Final) Moderate Polys No Bacteria Seen CULT RES (Final) No Growth Day 5 Normal The [facility] Comment on above: Order Comment: 1. Ri ght Knee Joint Fluid Performed By: #### 3 1595 #### [facility] [address] [place], [place] [id number] [place] [address] *TISSUE CULTUREon 02-15-2022 *TISSUE CULTURE Clinical Report: (D) Specimen/Source: TISSUE/INTRAOP SPEC Collected: 02/15/2022 10:06 Status: Final Last Updated: 02/20/2022 07:33 (1) 3. Right Medial Lateral Synovium GRAM (Final) Rare Polys No Bacteria Seen CULT RES (Final) No Growth Day 5 Normal The [facility] Comment on above: Order Comment: 3. Ri ght Medial Lateral Synovium Performed By: #### 3 0338 #### [facility] [address] [place], [place] [address] [place] [address] *TISSUE CULTURE Clinical Report: (D) Specimen/Source: TISSUE/INTRAOP SPEC Collected: 02/15/2022 10:06 Status: Final Last Updated: 02/20/2022 07:34 (1) 2. Right Knee Medial Synovium GRAM (Final) Moderate Polys No Bacteria Seen CULT RES (Final) No Growth Day 5 Normal The [facility] Comment on above: Order Comment: 2. Ri ght Knee Medial Synovium Performed By: #### 3 0338 #### [address] APTTon 02-15-2022 aPTT Coag (Bld) [Time] 29.7 s Normal 25.0-35.0 Th e [facility] Comment on above: Order Comment: [...] THIS PURPOSE. Performed By: #### 5 7307, [address] #### [address] POC GLUCOSE LABon 02-15-2022 Glucose [Mass/Vol] 124 mg/dL High 70-100 The [facility] Comment on above: Performed By: #### 8 5499 #### [address] Glucose [Mass/Vol] 97 mg/dL Normal 70-100 The [facility] Comment on above: Performed By: #### 3 1595 #### [address] PORTABLE KNEE RIGHT 2 VWSon 02-15-2022 PORTABLE KNEE RIGHT 2 S [facility] Department of Radiology [address] [place] [id number] Patient Name: INDIO COLLADO : 1955 Sex: M Age: Race: White Pt. Location: [facility] Patient Status: I Ordered Date: 02/15/2022 11:10:00 [...] 12/08/2021 Electronically signed: Indio Presley. Transcribed by: [email or web address], User Resident: Electronically Signed by: INDIO PRESLEY @ 02/15/2022 12:57 PM Normal The [facility] Comment on above: Order Comment: Hardw are Evaluation, in PACU PROTHROMBIN TIMEon INR Coag (PPP) [Relative time] 1.14 {INR} Normal 0.91-1.16 The [facility] Comment on above: Order Comment: No: D o not add to previous draw Result Comment: [facility] P RECOMMENDED INR FOR WARFARIN THERAPY ------- [...] CHEST 1995;108:231S-246S. Performed By: #### 5 7307, 10245 #### [facility] [address] PT Coag (PPP) [Time] 14.6 s Normal 12.3-14.8 The [facility] Comment on above: Order Comment: No: D o not add to previous draw Result Comment: ALL RESULTS MUST BE INTERPRETED WITH RESPECT TO BLOOD DRAWING ARTIFACT OR DILUTION ERROR OF ANTICOAGULANT AT THE TIME OF SAMPLING. Performed By: #### 5 7307, 557[address] #### [facility] 3000 [facility]. [address] Complete Blood Count with Au to Diffon 02-05-2022 Basophils (Bld) [#/Vol] 0.06 10*3/uL Normal 0.00-0.20 [facility] Comment on above: Performed By: #### T SH, CMP, LIPD #### [facility] [address] [place], [place] [id number] Basophils/100 WBC (Bld) 0.9 % Normal N orthertiffanie [facility] Comment on above: Performed By: #### T SH, CMP, LIPD #### [facility] [address] [place], [place] [id number] Eosinophils (Bld) [#/Vol] 0.10 10*3/uL Normal 0.02-0.50 [facility] Comment on above: Performed By: #### T SH, CMP, LIPD #### [facility] [address] [facility] [place] [id number] Eosinophils/100 WBC (Bld) 1.5 % Normal [facility] Comment on above: Performed By: #### T SH, CMP, LIPD #### [facility] [address] [facility] [place] [id number] Erythrocyte distribution width (RBC) [Ratio] 17.3 % High 11.0-15.0 [facility] Comment on above: Performed By: #### T SH, CMP, LIPD #### [facility] [address] [place], [place] [id number] Hematocrit (Bld) [Volume fraction] 40.5 % Normal 38.5-50.0 [facility] Comment on above: Performed By: #### T SH, CMP, LIPD #### [facility] [address] [place], [place] [id number] Hemoglobin (Bld) [Mass/Vol] 13.5 g/dL Normal 13.0-17.1 [facility] Comment on above: Performed By: #### T SH, CMP, LIPD #### [facility] [address] [facility] [place] [id number] Lymphocytes (Bld) [#/Vol] 1.4 10*3/uL Normal 0.9-3.9 [facility] Comment on above: Performed By: #### T SH, CMP, LIPD #### [facility] [address] [facility] [place] [id number] Lymphocytes/100 WBC (Bld) 21.1 % Normal [facility] Comment on above: Performed By: #### T SH, CMP, LIPD #### [facility] [address] [facility] [place] [id number] MCH (RBC) [Entitic mass] 31.3 pg Normal 27.0-33.0 [facility] Comment on above: Performed By: #### T SH, CMP, LIPD #### [facility] [address] [facility] [place] [id number] MCHC (RBC) [Mass/Vol] 33.3 g/dL Normal 32.0-36.0 [facility] Comment on above: Performed By: #### T SH, CMP, LIPD #### [facility] [address] [facility] [place] [id number] MCV (RBC) [Entitic vol] 94 fL Normal 80-100 [facility] Specialist Comment on above: Performed By: #### T SH, CMP, LIPD #### [facility] [address] [place], [place] [id number] Monocytes (Bld) [#/Vol] 0.4 10*3/uL Normal 0.2-0.9 [facility] Comment on above: Performed By: #### T SH, CMP, LIPD #### [facility] [address] [facility] [place] [id number] Monocytes/100 WBC (Bld) 6.3 % Normal [facility] Comment on above: Performed By: #### T SH, CMP, LIPD #### [facility] [address] [place], [place] [id number] Neutrophils (Bld) [#/Vol] 4.6 10*3/uL Normal 1.5-7.8 [facility] Comment on above: Performed By: #### T SH, CMP, LIPD #### [facility] [address] [place], [place] [id number] Neutrophils/100 WBC (Bld) 70.0 % Normal [facility] Comment on above: Performed By: #### T SH, CMP, LIPD #### [facility] [address] [facility] [place] [id number] Platelet mean volume (Bld) [Entitic vol] 10.10 fL Normal 7.50-12.50 [facility] Comment on above: Performed By: #### T SH, CMP, LIPD #### [facility] [address] [place] [id number] Platelets (Bld) [#/Vol] 280 10*3/uL Normal 140-400 [facility] Comment on above: Performed By: #### T SH, CMP, LIPD #### [facility] [address] [facility] [place] [id number] RBC (Bld) [#/Vol] 4.32 10*6/uL Normal 4.20-5.80 [facility] Senior Credit Officer Comment on above: Performed By: #### T SH, CMP, LIPD #### [facility] [address] [place], [place] [id number] RDW-SD 60.6 fL High 37.0-50.0 [facility] Senior Credit Officer Comment on above: Performed By: #### T SH, CMP, LIPD #### [facility] [address] [place], [place] [id number] WBC (Bld) [#/Vol] 6.6 10*3/uL Normal 3.8-11.0 Brigitte mcarthur [place] Senior Credit Officer Comment on above: Performed By: #### T SH, CMP, LIPD #### [facility] [address] [place], [place] [id number] Comprehensive Metabolic Pane carl 02-05-2022 Albumin [Mass/Vol] 3.3 g/dL Low 3.6-5.1 Brigitte rn [place] [facility] Comment on above: Performed By: #### T SH, CMP, LIPD #### [facility] [address] [place], [place] [id number] Albumin/Globulin [Mass ratio] 1.4 {ratio} Normal 1.0-2.5 [facility] Senior Credit Officer Comment on above: Performed By: #### T SH, CMP, LIPD #### [facility] [address] [place], [place] [id number] ALP [Catalytic activity/Vol] 102 U/L Normal 40-129 [facility] Senior Credit Officer Comment on above: Performed By: #### T SH, CMP, LIPD #### [facility] [address] [place], [place] [id number] ALT [Catalytic activity/Vol] 11 U/L Normal 9-46 [facility] Senior Credit Officer Comment on above: Result Comment: 09/23 Female reference range changed. Performed By: #### T SH, CMP, LIPD #### [facility] [address] [place], [place] [id number] Anion gap [Moles/Vol] 16 mmol/L Normal 12-20 [facility] Senior Credit Officer Comment on above: Result Comment: Effe ctive 10/29/2019 reference range changed. Performed By: #### T SH, CMP, LIPD #### [facility] [address] [facility] [place] [id number] AST [Catalytic activity/Vol] 18 U/L Normal 10-40 [facility] Comment on above: Performed By: #### T SH, CMP, LIPD #### [facility] [address] [facility] [place] [id number] Bilirubin [Mass/Vol] 1.96 mg/dL High 0.30-1.20 [facility] Comment on above: Performed By: #### T SH, CMP, LIPD #### [facility] [address] [facility] [place] [id number] BUN/CREA 11 Ratio Normal 6-22 [facility] Comment on above: Performed By: #### T SH, CMP, LIPD #### [facility] [address] [place], [place] [id number] Calcium [Mass/Vol] 8.7 mg/dL Normal 8.6-10.2 [facility] Comment on above: Performed By: #### T SH, CMP, LIPD #### [facility] [address] [facility] [place] [id number] Chloride [Moles/Vol] 105 mmol/L Normal 98-107 [facility] Comment on above: Performed By: #### T SH, CMP, LIPD #### [facility] [address] [place], [place] [id number] CO2 [Moles/Vol] 23 mmol/L Normal 20-31 [facility] Comment on above: Performed By: #### T SH, CMP, LIPD #### [facility] [address] [place], [place] [id number] Creatinine [Mass/Vol] 0.7 mg/dL Normal 0.7-1.4 [facility] Comment on above: Performed By: #### T SH, CMP, LIPD #### [facility] [address] [place], [place] [id number] eGFRAA 139 mL/min/1.73m2 Normal >60 [facility] Comment on above: Performed By: #### T SH, CMP, LIPD #### [facility] [address] [place], [place] [id number] eGFRNAA 115 mL/min/1.73m2 Normal >60 [facility] Senior Credit Officer Comment on above: Performed By: #### T NELY, CMP, LIPD #### [facility] [address] [place], [place] [id number] Globulin (S) [Mass/Vol] 2.3 g/dL Normal 1.9-3.7 [facility] Specialist Comment on above: Performed By: #### T SH, CMP, LIPD #### [facility] [address] [place], [place] [id number] Glucose [Mass/Vol] 94 mg/dL Normal 65-99 Brigitte mcarthur [place] [facility] Comment on above: Result Comment: For FASTING Glucose --- ADA reference ranges: Normal 65-99 mg/dl Prediabetes 100-125 Diabetes >/= 126 Performed By: #### T NELY, CMP, LIPD #### [facility] [address] [place], [place] [id number] Potassium [Moles/Vol] 3.7 mmol/L Normal 3.5-5.5 [facility] Specialist Comment on above: Performed By: #### T NELY, CMP, LIPD #### [facility] [address] [place], [place] [id number] Protein [Mass/Vol] 5.6 g/dL Low 6.1-8.1 Brigitte mcarthur [place] [facility] Comment on above: Performed By: #### T SH, CMP, LIPD #### [facility] [address] [place], [place] [id number] Sodium [Moles/Vol] 140 mmol/L Normal 135-146 Brigitte mcarthur [place] [facility] Officer Comment on above: Performed By: #### T SH, CMP, LIPD #### [facility] [address] [place], [place] [id number] Urea nitrogen [Mass/Vol] 7 mg/dL Normal 7-25 [facility] Comment on above: Performed By: #### T SH, CMP, LIPD #### [facility] [address] [place], [place] [id number] Ferritinon 02-05-2022 FERR 128.6 ng/mL Normal 30.0-400.0 [facility] Comment on above: Performed By: #### T SH, CMP, LIPD #### [facility] [address] [place], [place] [id number] Iron Profileon 02-05-2022 %FESAT 18 % Normal 15-60 [facility] Comment on above: Performed By: #### T SH, CMP, LIPD #### [facility] [address] [place], [place] [id number] FE 45 ug/dL Low 50-180 [facility] Comment on above: Result Comment: Refe rence range change 09/09/2017. Prior reference range F 37-145 ug/dL, M 59-158 ug/dL. Performed By: #### T SH, CMP, LIPD #### [facility] [address] [place], [place] [id number] TIBC 247 ug/dL Low 250-425 [facility] Comment on above: Performed By: #### T SH, CMP, LIPD #### [facility] [address] [place], [place] [id number] UIBC 202 ug/dL Normal 112-347 [facility] Comment on above: Performed By: #### T NELY, CMP, LIPD #### [facility] [address] [place], [place] [id number] Magnesiumon 02-05-2022 Magnesium [Mass/Vol] 1.8 mg/dL Normal 1.5-2.3 [facility] Specialist Comment on above: Performed By: #### T SH, CMP, LIPD #### [facility] [address] [place], [place] [id number] Phosphoruson 02-05-2022 Phosphate [Mass/Vol] 3.2 mg/dL Normal 2.2-4.4 [facility] Specialist Comment on above: Performed By: #### T SH, CMP, LIPD #### [facility] [address] [place], [place] [id number] Q - VITAMIN B1 (THIAMINE),BL OODon 02-05-2022 VITAMIN B1 (THIAMINE), BLOOD, LC/MS/MS 74 nmol/L Low 78-185 [facility] Comment on above: Order Comment: [facility] performed at: [facility], [facility], [address], [place], [place], , Caretaker Grounds: Alexis Abbott M.D.,PhDQuest Collection Date/Time: [id number] Results Received Date/Time: [id number] Reported Date/Time: Result Comment: Yolande min supplementation within 24 hours prior to blood draw may affect the accuracy of the results. This test was developed and its analytical performance characteristics have been determined by [facility] [place], [place]. It has not been cleared or approved by the U.S. Food and Drug Administration. This assay has been validated pursuant to the CLIA regulations and is used for clinical purposes. Performed By: #### T RAMONA MCKAY LIPD #### [facility] [address] [id number] Q - VITAMIN D 25-OH Total IA on 02-05-2022 VIT D 25 OH 18 ng/mL Low 30-100 [facility] Senior Credit Officer Comment on above: Order Comment: [facility] performed at: [facility], [facility], [address] [facility], [address] [place], [address], Caretaker Grounds: Juan Daniel Cool MDQuest Collection Date/Time: [id number] Results Received Date/Time: [id number] Reported Date/Time: Result Comment: Yolande min D Status 25-OH Vitamin D: Deficiency: <20 ng/mL Insufficiency: 20 - 29 ng/mL Optimal: > or = 30 ng/mL For 25-OH Vitamin D testing on patients on D2-supplementation and patients for whom quantitation of D2 and D3 fractions is required, the QuestAssureD(TM) 25-OH VIT D, (D2,D3), LC/MS/MS is recommended: order code 13483 (patients >2yrs). See Note 1 Note 1 For additional information, please refer to http://education.Freepath/faq/YCL942 (This link is being provided for informational/ educational purposes only.) Performed By: #### T RAMONA MCKAY LIPD #### [facility] [address], [place] [id number] Vitamin B12/Folateon 022 Cobalamin (Vitamin B12) [Mass/Vol] 344 pg/mL Normal 211-946 [facility] Senior Credit Officer Comment on above: Result Comment: Spec veronica is hemolyzed. Results may be affected. Performed By: #### T SH, CMP, LIPD #### [facility] [address] [place] [id number] FOL 12.7 ng/mL Normal >4.7 [facility] Senior Credit Officer Comment on above: Result Comment: Refe rence range change 09/09/2017. Prior reference range F 4.8-37.3 ng/mL, M 4.5-32.2 ng/mL. Performed By: #### T NELY, CMP, LIPD #### [facility] [address] [place], [place] [id number] CT LOWER EXTREMITY WO CONTRA ST RIGHTon 01-02-2022 CT LOWER EXTREMITY WO CONTRAST RIGHT [facility] Department of Radiology [address] [place] [phone] Patient Name: INDIO COLLADO : 1955 Sex: M Age: Race: White Pt. 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 Approved by:Eva Iordanouon3 8:11 AM. IMichael,have reviewed the image(s) and agree with the findings in this report. Electronically signed: Michael Grant. Transcribed by: [email or web address], User Resident: EVA RAMIREZ Electronically Signed by: MICHAEL GRANT @ 01/04/2022 09:38 AM I personally read this/these film(s) with this resident Normal The [facility] Comment on above: Order Comment: right knee *MRSA/MSSA DNA NASALon 12-08 *MRSA/MSSA DNA NASAL Clinical Report: (D ) Specimen: NASAL SWAB Collected: 12/08/2021 14:59 Status: Final Last Updated: 12/08/2021 21:27 MSSA DNA (Final) Negative MRSA DNA (Final) Methicillin Resistant Staphylococcus aureus DNA Detected Normal [facility] Comment on above: Performed By: #### 3 1595 #### [address] C REACTIVE PROTEINon 022 CRP [Mass/Vol] 7.2 mg/L High 0.0-7.0 [facility] Comment on above: Performed By: #### 3 1595 #### [address] KNEE RIGHT 3 Son 2 KNEE RIGHT 3 S [facility] Department of Radiology [address] [place] [phone] Patient Name: INDIO COLLADO : 1955 [...] calcifications. Electronically signed: Kehinde Hahn. Transcribed by: [email or web address], User Resident: Electronically Signed by: KEHINDE HAHN @ 12/09/2021 02:13 PM Normal [facility] Comment on above: Order Comment: Evalu ate Q - MICROALBUMIN,RANDOM URIN E (W/CREAT)on 11-17-2021 Albumin DL <= 20 mg/L (U) [Mass/Vol] 5.3 mg/dL Normal See Note: [facility] Senior Credit Officer Comment on above: Order Comment: [facility] Testing performed at: [facility] [facility], [address] [place] [address], [address] [place] [address], [address] [place] [address], Caretaker Grounds: Juan Daniel Cool MD [facility] Collection Date/Time: [facility] Results Received Date/Time: [facility] Reported Date/Time: Result Comment: Refe rence Range: Reference Range Not established Performed By: #### 6 517X #### [facility] [address] [place] [address] Creatinine (U) [Mass/Vol] 173 mg/dL Normal 20-320 [facility] Senior Credit Officer Comment on above: Order Comment: [facility] Testing performed at: [employer], [facility], [address] [facility], [address] [place] [address], [address], Caretaker Grounds: Juan Daniel Cool MD [facility] Collection Date/Time: [facility] Results Received Date/Time: [facility] Reported Date/Time: Performed By: #### 6 517X #### [facility] [address] [place] [address] MICROALBUMIN/CREATININE RATIO, RANDOM URINE 31 mcg/mg creat High <30 [facility] Senior Credit Officer Comment on above: Order Comment: [facility] Testing performed at: [facility], [facility], [address], [address] [place], [address], Caretaker Grounds: Juan Daniel Cool MD [facility] Collection Date/Time: [id number] [facility] Results Received Date/Time: [facility] Reported Date/Time: [...] 6 517X #### [facility] [address] [place] [address] RESPIRATORY PANEL PLUSon Adenovirus Not detected Normal NOT DETECTED [facility] Comment on above: Performed By: #### R SPLUS ####[facility] [address] [place], [place] [address]Dr. Fatoumatalan Real B. Parapertusis Not detected Normal NOT DETECTED [facility] Comment on above: Performed By: #### R SPLUS ####[facility] [address] [address]Dr. Chris Real B. Pertussis Not detected Normal NOT DETECTED [facility] Comment on above: Performed By: #### R SPLUS ####[facility] [address] [address]Dr. Chris Real Chlamydia Pneumoniae Not detected Normal NOT DETECTED [facility] Comment on above: Performed By: #### R SPLUS ####[facility] [address] [place], [place] [address]Dr. Fatoumatalan Real Coronavirus 229E Not detected Normal NOT DETECTED [facility] Comment on above: Performed By: #### R SPLUS ####[facility] [address] [place] [address]Dr. Chris [facility] Coronavirus HKU1 Not detected Normal NOT DETECTED [facility] Comment on above: Performed By: #### R SPLUS ####[facility] [address] [place] [address]Dr. Chris Real Coronavirus NL63 Not detected Normal NOT DETECTED [facility] Comment on above: Performed By: #### R SPLUS ####[facility] [address] [place], [place] [address]Dr. Chris [facility] Coronavirus OC43 Not detected Normal NOT DETECTED [facility] Comment on above: Performed By: #### R SPLUS ####[facility] [address] [place], [place] [address]Dr. Chris Real Influenza A H1 2009 Not detected Normal NOT DETECTED [facility] Comment on above: Performed By: #### R SPLUS ####[facility] [address] [place], [place] [address]Dr. Chris Real Influenza A H3 Not detected Normal NOT DETECTED [facility] Comment on above: Performed By: #### R SPLUS ####[facility] Allz[address]we[address] [place], [place] [address]Dr. Yikinjal Real Influenza B Not detected Normal NOT DETECTED [facility] Comment on above: Performed By: #### R SPLUS ####[facility] [address] [place], [place] [address]Dr. Chris Real Metapneumovirus Not detected Normal NOT DETECTED [facility] Comment on above: Performed By: #### R SPLUS ####[facility] [address] [place], [place] [address]Dr. Chris Real Mycoplas. Pneumoniae Not detected Normal NOT DETECTED [facility] Comment on above: Performed By: #### R SPLUS ####[facility] [address] [place], [place] [address]Dr. Chris Real Parainfluenza 1 Not detected Normal NOT DETECTED [facility] Comment on above: Performed By: #### R SPLUS ####[facility] [address]zt[address] [place], [place] [address]Dr. Chris Real Parainfluenza 2 Not detected Normal NOT DETECTED [facility] Comment on above: Performed By: #### R SPLUS ####[facility] [address]ou[address] [place], [place] [address]Dr. Chris Real Parainfluenza 3 Not detected Normal NOT DETECTED [facility] Comment on above: Performed By: #### R SPLUS ####[facility] [address] [place], [place] [address]Dr. Chris Real Parainfluenza 4 Not detected Normal NOT DETECTED [facility] Comment on above: Performed By: #### R SPLUS ####[facility] [address] [place], [place] [address]Dr. Fatoumatakinjal Real Rhino/Enterovirus Not detected Normal NOT DETECTED [facility] Comment on above: Performed By: #### R SPLUS ####[facility] Rdoscoqmcg[address] [place], [place] [address]Dr. Chris Real RP2 Header 1 RESPIRATORY PANEL: VIRUSES Normal [facility] Comment on above: Performed By: #### R SPLUS ####[facility] [address]fs[address] [place], [place] [address]Dr. Chris Real RP2 Header 2 RESPIRATORY PANEL: BACTERIA Normal [facility] Comment on above: Performed By: #### R SPLUS ####[facility] [address] [place], [place] [address]Dr. Fatoumatakinjal Real RSV Not detected Normal NOT DETECTED [facility] Comment on above: Performed By: #### R SPLUS ####[facility] [address] [place], [place] [address]Dr. Chris Real SARS-CoV-2 (COVID-19) RNA GAIL+probe Ql (Unsp spec) Detected Critically abnormal NOT DETECTED [facility] Comment on above: Performed By: #### R SPLUS ####[facility] Ofwbqcuxip[address] [place], [place] [address]Dr. Chris Real Complete Blood Count with Au to Diffon 10-08-2021 Basophils (Bld) [#/Vol] 0.07 10*3/uL Normal 0.00-0.20 [facility]ist Comment on above: Performed By: #### V ITD, MG, PHOS, FERR, CBCAD, FE Prof, CMP #### [facility] [address] [place], [place] [id number] Basophils/100 WBC (Bld) 0.9 % [facility] Comment on above: Performed By: #### V ITD, MG, PHOS, FERR, CBCAD, FE Prof, CMP #### [facility] [address] [place], [place] [id number] Eosinophils (Bld) [#/Vol] 0.20 10*3/uL Normal 0.02-0.50 [facility] Senior Credit Officer Comment on above: Performed By: #### V ITD, MG, PHOS, FERR, CBCAD, FE Prof, CMP #### [facility] [address] [place], [place] [id number] Eosinophils/100 WBC (Bld) 2.6 % Normal [facility] Comment on above: Performed By: #### V ITD, MG, PHOS, FERR, CBCAD, FE Prof, CMP #### [facility] [address] [place], [place] [id number] Erythrocyte distribution width (RBC) [Ratio] 15.0 % Normal 11.0-15.0 [facility] Comment on above: Performed By: #### V ITD, MG, PHOS, FERR, CBCAD, FE Prof, CMP #### [facility] [address] [place], [place] [id number] Hematocrit (Bld) [Volume fraction] 45.1 % Normal 38.5-50.0 [facility] Senior Credit Officer Comment on above: Performed By: #### V ITD, MG, PHOS, FERR, CBCAD, FE Prof, CMP #### [facility] [address] [place], [place] [id number] Hemoglobin (Bld) [Mass/Vol] 14.7 g/dL Normal 13.0-17.1 [facility] [employer] Officer Comment on above: Performed By: #### V ITD, MG, PHOS, FERR, CBCAD, FE Prof, CMP #### [facility] [address] [place], [place] [id number] Lymphocytes (Bld) [#/Vol] 1.8 10*3/uL Normal 0.9-3.9 [facility] Comment on above: Performed By: #### V ITD, MG, PHOS, FERR, CBCAD, FE Prof, CMP #### [facility] [address] [place], [place] [id number] Lymphocytes/100 WBC (Bld) 23.4 % Normal [facility] Comment on above: Performed By: #### V ITD, MG, PHOS, FERR, CBCAD, FE Prof, CMP #### [facility] [address] [place], [place] [id number] MCH (RBC) [Entitic mass] 28.1 pg Normal 27.0-33.0 [facility] Comment on above: Performed By: #### V ITD, MG, PHOS, FERR, CBCAD, FE Prof, CMP #### [facility] [address] [place], [place] [id number] MCHC (RBC) [Mass/Vol] 32.6 g/dL Normal 32.0-36.0 [facility] Comment on above: Performed By: #### V ITD, MG, PHOS, FERR, CBCAD, FE Prof, CMP #### [facility] [address] [place], [place] [id number] MCV (RBC) [Entitic vol] 86 fL Normal 80-100 [facility] Comment on above: Performed By: #### V ITD, MG, PHOS, FERR, CBCAD, FE Prof, CMP #### [facility] [address] [place], [place] [id number] Monocytes (Bld) [#/Vol] 0.5 10*3/uL Normal 0.2-0.9 [facility] Comment on above: Performed By: #### V ITD, MG, PHOS, FERR, CBCAD, FE Prof, CMP #### [facility] [address] [place], [place] [id number] Monocytes/100 WBC (Bld) 6.7 % Normal [facility] Specialist Comment on above: Performed By: #### V ITD, MG, PHOS, FERR, CBCAD, FE Prof, CMP #### [facility] [address] [place], [place] [id number] Neutrophils (Bld) [#/Vol] 5.2 10*3/uL Normal 1.5-7.8 [facility] Comment on above: Performed By: #### V ITD, MG, PHOS, FERR, CBCAD, FE Prof, CMP #### [facility] [address] [place], [place] [id number] Neutrophils/100 WBC (Bld) 66.3 % Normal [facility] Comment on above: Performed By: #### V ITD, MG, PHOS, FERR, CBCAD, FE Prof, CMP #### [facility] [address] [place], [place] [id number] Platelet mean volume (Bld) [Entitic vol] 10.40 fL Normal 7.50-12.50 [facility] Comment on above: Performed By: #### V ITD, MG, PHOS, FERR, CBCAD, FE Prof, CMP #### [facility] [address] [place], [place] [id number] Platelets (Bld) [#/Vol] 302 10*3/uL Normal 140-400 [facility] Comment on above: Performed By: #### V ITD, MG, PHOS, FERR, CBCAD, FE Prof, CMP #### [facility] [address] [place], [place] [id number] RBC (Bld) [#/Vol] 5.23 10*6/uL Normal 4.20-5.80 [facility] Comment on above: Performed By: #### V ITD, MG, PHOS, FERR, CBCAD, FE Prof, CMP #### [facility] [address] [place], [place] [id number] RDW-SD 46.8 fL Normal 37.0-50.0 [facility] Comment on above: Performed By: #### V ITD, MG, PHOS, FERR, CBCAD, FE Prof, CMP #### [facility] [address] [place], [place] [id number] WBC (Bld) [#/Vol] 7.8 10*3/uL Normal 3.8-11.0 [facility] [place] [facility] [employer] [facility] Comment on above: Performed By: #### V ITD, MG, PHOS, FERR, CBCAD, FE Prof, CMP #### [facility] [address] [place], [place] [id number] Comprehensive Metabolic Pane carl 10-08-2021 Albumin [Mass/Vol] 3.7 g/dL Normal 3.6-5.1 Brigitte mcarthur [place] [employer] Comment on above: Performed By: #### V ITD, MG, PHOS, FERR, CBCAD, FE Prof, CMP #### [facility] [address] [place], [place] [id number] Albumin/Globulin [Mass ratio] 1.2 {ratio} Normal 1.0-2.5 [facility] Comment on above: Performed By: #### V ITD, MG, PHOS, FERR, CBCAD, FE Prof, CMP #### [facility] [address] [place], [place] [id number] ALP [Catalytic activity/Vol] 127 U/L Normal 40-129 [facility] Comment on above: Performed By: #### V ITD, MG, PHOS, FERR, CBCAD, FE Prof, CMP #### [facility] [address] [place], [place] [id number] ALT [Catalytic activity/Vol] 21 U/L Normal 9-46 [facility] Comment on above: Result Comment: 09/23 Female reference range changed. Performed By: #### V ITD, MG, PHOS, FERR, CBCAD, FE Prof, CMP #### [facility] [address] [place], [place] [id number] Anion gap [Moles/Vol] 20 mmol/L Normal 12-20 [facility] Comment on above: Result Comment: Effe ctive 10/29/2019 reference range changed. Performed By: #### V ITD, MG, PHOS, FERR, CBCAD, FE Prof, CMP #### [facility] [address] [place], [place] [id number] AST [Catalytic activity/Vol] 25 U/L Normal 10-40 [facility] Comment on above: Performed By: #### V ITD, MG, PHOS, FERR, CBCAD, FE Prof, CMP #### [facility] [address] [place], [place] [id number] Bilirubin [Mass/Vol] 1.05 mg/dL Normal 0.30-1.20 [facility] Comment on above: Performed By: #### V ITD, MG, PHOS, FERR, CBCAD, FE Prof, CMP #### [facility] [address] [place], [place] [id number] BUN/CREA 11 Ratio Normal 6-22 [facility] Comment on above: Performed By: #### V ITD, MG, PHOS, FERR, CBCAD, FE Prof, CMP #### [facility] [address] [place], [place] [id number] Calcium [Mass/Vol] 9.7 mg/dL Normal 8.6-10.2 [facility] Comment on above: Performed By: #### V ITD, MG, PHOS, FERR, CBCAD, FE Prof, CMP #### [facility] [address] [place], [place] [id number] Chloride [Moles/Vol] 99 mmol/L Normal 98-107 [facility] Comment on above: Performed By: #### V ITD, MG, PHOS, FERR, CBCAD, FE Prof, CMP #### [facility] [address] [place], [place] [id number] CO2 [Moles/Vol] 24 mmol/L Normal 20-31 [facility] Comment on above: Performed By: #### V ITD, MG, PHOS, FERR, CBCAD, FE Prof, CMP #### [facility] [address] [place], [place] [id number] Creatinine [Mass/Vol] 0.9 mg/dL Normal 0.7-1.4 [facility] Comment on above: Performed By: #### V ITD, MG, PHOS, FERR, CBCAD, FE Prof, CMP #### [facility] [address] [place], [place] [id number] eGFRAA 107 mL/min/1.73m2 Normal >60 [facility] Comment on above: Performed By: #### V ITD, MG, PHOS, FERR, CBCAD, FE Prof, CMP #### [facility] [address] [place], [place] [id number] eGFRNAA 88 mL/min/1.73m2 Normal >60 [facility] Senior Credit Officer Comment on above: Performed By: #### V ITD, MG, PHOS, FERR, CBCAD, FE Prof, CMP #### [facility] [address] [facility] [place] [id number] Globulin (S) [Mass/Vol] 3.0 g/dL Normal 1.9-3.7 [facility] [place] [facility] [employer] [facility] Comment on above: Performed By: #### V ITD, MG, PHOS, FERR, CBCAD, FE Prof, CMP #### [facility] [address] [facility] [place] [id number] Glucose [Mass/Vol] 136 mg/dL High 65-99 Brigitte mcarthur [place] [employer] Comment on above: Result Comment: For FASTING Glucose --- ADA reference ranges: Normal 65-99 mg/dl Prediabetes 100-125 Diabetes >/= 126 Performed By: #### V ITD, MG, PHOS, FERR, CBCAD, FE Prof, CMP #### [facility] [address] [place], [place] [id number] Potassium [Moles/Vol] 3.3 mmol/L Low 3.5-5.5 Stephen [facility] Senior Credit Officer Comment on above: Performed By: #### V ITD, MG, PHOS, FERR, CBCAD, FE Prof, CMP #### [facility] [address] [place], [place] [id number] Protein [Mass/Vol] 6.7 g/dL Normal 6.1-8.1 Brigitte mcarthur [place] [employer] Comment on above: Performed By: #### V ITD, MG, PHOS, FERR, CBCAD, FE Prof, CMP #### [facility] [address] [facility] [place] [id number] Sodium [Moles/Vol] 140 mmol/L Normal 135-146 Brigitte mcarthur [place] [employer] Comment on above: Performed By: #### V ITD, MG, PHOS, FERR, CBCAD, FE Prof, CMP #### [facility] [address] [facility] [place] [id number] Urea nitrogen [Mass/Vol] 10 mg/dL Normal 7-25 [place] [facility] [employer] Officer Comment on above: Performed By: #### V ITD, MG, PHOS, FERR, CBCAD, FE Prof, CMP #### [facility] [address] [place], [place] [id number] Ferritinon 10-08-2021 FERR 127.3 ng/mL Normal 30.0-400.0 [facility] Comment on above: Performed By: #### V ITD, MG, PHOS, FERR, CBCAD, FE Prof, CMP #### [facility] [address] [place], [place] [id number] Iron Profileon 10-08-2021 %FESAT 13 % Low 15-60 [facility] Comment on above: Performed By: #### V ITD, MG, PHOS, FERR, CBCAD, FE Prof, CMP #### [facility] [address] [place], [place] [id number] FE 41 ug/dL Low 50-180 [facility] Senior Credit Officer Comment on above: Result Comment: Refe rence range change 09/09/2017. Prior reference range F 37-145 ug/dL, M 59-158 ug/dL. Performed By: #### V ITD, MG, PHOS, FERR, CBCAD, FE Prof, CMP #### [facility] [address] [place], [place] [id number] TIBC 318 ug/dL Normal 250-425 [facility] Senior Credit Officer Comment on above: Performed By: #### V ITD, MG, PHOS, FERR, CBCAD, FE Prof, CMP #### [facility] [address] [place], [place] [id number] UIBC 277 ug/dL Normal 112-347 [facility] Senior Credit Officer Comment on above: Performed By: #### V ITD, MG, PHOS, FERR, CBCAD, FE Prof, CMP #### [facility] [address] [place], [place] [id number] Magnesiumon 10-08-2021 Magnesium [Mass/Vol] 1.9 mg/dL Normal 1.5-2.3 [facility] Specialist Comment on above: Performed By: #### V ITD, MG, PHOS, FERR, CBCAD, FE Prof, CMP #### [facility] [address] [place], [place] [id number] Phosphoruson 10-08-2021 Phosphate [Mass/Vol] 2.4 mg/dL Normal 2.2-4.4 Moshe chavez [place] [employer] Officer Comment on above: Performed By: #### V ITD, MG, PHOS, FERR, CBCAD, FE Prof, CMP #### [facility] [address] [place], [place] [id number] Q - VITAMIN B1 PLASMAon 09-23 VITAMIN B1 (THIAMINE), SERUM/PLASMA, LC/MS/MS <6 Low 8-30 [facility] Senior Credit Officer Comment on above: Order Comment: Quest performed at: [facility], [facility], [address], [place], [place], , [employer]: Alexis Abbott M.D.,PhDQuest Collection Date/Time: [id number] Results Received Date/Time: [id number] Reported Date/Time: Result Comment: Yolande min supplementation within 24 hours prior to blood draw may affect the accuracy of the results. This test was developed and its analytical performance characteristics have been determined by [facility] [place], [place]. It has not been cleared or approved by the U.S. Food and Drug Administration. This assay has been validated pursuant to the CLIA regulations and is used for clinical purposes. Performed By: #### T SH, CMP, LIPD #### [facility] [address] [place], [place] [id number] Vitamin B12/Folateon 021 Cobalamin (Vitamin B12) [Mass/Vol] 523 pg/mL Normal 211-946 [facility] Specialist Comment on above: Performed By: #### T SH, CMP, LIPD #### [facility] [address] [place], [place] [id number] FOL 8.2 ng/mL Normal >4.7 [facility] Comment on above: Result Comment: Refe rence range change 09/09/2017. Prior reference range F 4.8-37.3 ng/mL, M 4.5-32.2 ng/mL. Performed By: #### T SH, CMP, LIPD #### [facility] [address] [place], [place] [id number] Vitamin D 25-OHon 10-08-2021 VIT D 25 OH 25 ng/ml Low >29 [facility] Senior Credit Officer Comment on above: Result Comment: Yolande min D Status Deficiency <20 ng/mL Insufficiency 20-29 ng/mL Optimal 30-100 ng/mL Possible Toxicity >=150 ng/mL Performed By: #### T SH, CMP, LIPD #### [facility] [address] [place], [place] [id number] CT ABD/PELVIS WO CONon 09-01 CT ABD/PELVIS [...] PM on 08/31/2021. Electronically authenticated by: Ema WASLH Date: 2021-08-31 23:[address] [facility] AMYLASEon 08-31-2021 Amylase [Catalytic activity/Vol] 34 U/L Normal 31-110 [facility] Comment on above: Performed By: #### L IPA, MIHAELA, CMP #### [facility] [address] [place] [address] Dr. Chris Real CBC AUTO DIFFon 08-31-2021 BASO # 0.1 103/ul Normal 0.0-0.1 [facility] Comment on above: Performed By: #### C BC #### [facility] [address] [place] [address] Dr. Chris Real Basophils/100 WBC (Bld) 0.6 % Normal 0.2-2.0 [facility] Comment on above: Performed By: #### C BC #### [facility] [address] [place] [address] Dr. Chris Real EO # 0.2 103/ul Normal 0.0-0.7 [facility] Comment on above: Performed By: #### C BC #### [facility] [address] [place] [address] Dr. Chris Real Eosinophils/100 WBC (Bld) 2.3 % Normal 0.9-7.0 [facility] Comment on above: Performed By: #### C BC #### [facility] [address] [place] [address] Dr. Chris Real Erythrocyte distribution width (RBC) [Ratio] 14.6 % Normal 11.0-15.0 [facility] Comment on above: Performed By: #### C BC #### [facility] [address] [place] [address] Dr. Chris Real Hematocrit (Bld) [Volume fraction] 38.6 % Critically low 42.0-54.0 [facility] Comment on above: Performed By: #### C BC #### [facility] [address] [place] [address] Dr. Chris Real Hemoglobin (Bld) [Mass/Vol] 12.6 g/dL Critically low 14.0-18.0 [facility] Comment on above: Performed By: #### C BC #### [facility] [address] [place] [address] Dr. Chris Real IG # 0.02 10e3/ul Normal 0.00-0.03 [facility] Comment on above: Performed By: #### C BC #### [facility] [address] [place] [address] Dr. Chris Real IG % 0.2 % Normal 0.0-0.5 [facility] Comment on above: Performed By: #### C BC #### [facility] [address] [place] [address] Dr. Chris Real LYMPH # 1.9 103/ul Normal 1.2-3.[address] [facility] Comment on above: Performed By: #### C BC #### [facility] [address] [place] [address] Dr. Chris Real Lymphocytes/100 WBC (Bld) 23.8 % Normal 20.5-60.0 [facility] Comment on above: Performed By: #### C BC #### [facility] [address] [place] [address] Dr. Chris Real MANUAL DIFF REQ NO Normal [facility] Comment on above: Performed By: #### C BC #### [facility] [address] [place] [address] Dr. Chris Real MCH (RBC) [Entitic mass] 29.1 pg Normal 25.9-34.0 [facility] Comment on above: Performed By: #### C BC #### [facility] [address] [place] [address] Dr. Chris Real MCHC (RBC) [Mass/Vol] 32.6 g/dL Normal 29.9-35.2 [facility] Comment on above: Performed By: #### C BC #### [facility] [address] [place] [address] Dr. Chris Real MCV (RBC) [Entitic vol] 89.1 fL Normal 80.0-94.0 [facility] Comment on above: Performed By: #### C BC #### [facility] [address] [place] [address] Dr. Chris Real MONO # 0.8 103/ul Normal 0.3-0.8 [facility] Comment on above: Performed By: #### C BC #### [facility] [address] [place] [address] Dr. Chris Real Monocytes/100 WBC (Bld) 10.3 % Normal 1.7-12.0 [facility] Comment on above: Performed By: #### C BC #### [facility] [address] [place] [address] Dr. Chris Real NEUT # 5.1 103/ul Normal 1.4-6.5 [facility] Comment on above: Performed By: #### C BC #### [facility] [address] [place] [address] Dr. Chris Real Neutrophils/100 WBC (Bld) 62.8 % Normal 43.0-75.0 [facility] Comment on above: Performed By: #### C BC #### [facility] [address] [place] [address] Dr. Chris Real Platelet mean volume (Bld) [Entitic vol] 10.4 fL Normal 9.5-13.5 [facility] Comment on above: Performed By: #### C BC #### [facility] [address] [place] [address] Dr. Chris Real PLT 325 103/ul Normal 150-[address] [facility] Comment on above: Performed By: #### C BC #### [facility] [address] [place] [address] Dr. Chris Real RBC 4.33 106/ul Critically low 4.70-6.[address] [facility] Comment on above: Performed By: #### C BC #### [facility] [address] [place] [address] Dr. Chris eRal WBC 8.1 103/ul Normal 4.0-11.[address] [facility] Comment on above: Performed By: #### C BC #### [facility] [address] [place] [address] Dr. Chris Real Covid-19 PCR (CVDTB)on SARS-CoV-2 (COVID-19) RNA GAIL+probe Ql (Unsp spec) Not detected Normal NOT DETECTED [facility] Comment on above: Result Comment: When diagnostic testing is negative, the possibility of a false negative should be considered in the context of a patient's recent exposures and the presence of clinical signs and symptoms consistent with SARS-CoV-2. This test is not yet approved or cleared by the [place] Food and Drug Administration (FDA). This test was developed by [employer], [place], [place]. The performance characteristics of this test were validated by [facility]. The results are not intended to be used as the sole means for clinical diagnosis or patient management decisions. [facility] is authorized under Clinical Laboratory Improvement Amendments (CLIA) to perform high- complexity testing. Performed By: #### C VDTBH #### [facility] [address] [place] [address] Dr. Chris Real LIPASEon 08-31-2021 Lipase [Catalytic activity/Vol] 109.0 U/L Normal 23.0-300.[address] [facility] Comment on above: Performed By: #### L IPA, MIHAELA, CMP #### [facility] [address] [place] [address] Dr. Chris Real PROF 14(COMP METB)on 021 Albumin [Mass/Vol] 2.7 g/dL Critically low 3.5-5.0 [facility] Comment on above: Performed By: #### L MIHAELA SO, CMP #### [facility] [address] [address] [address] Chris Real Albumin/Globulin [Mass ratio] 0.6 {ratio} Normal [facility] Comment on above: Performed By: #### L MIHAELA SO, CMP #### [facility] [address] [address] [address] Chris Real ALP [Catalytic activity/Vol] 110 U/L Normal 38-126 [facility] Comment on above: Performed By: #### L MIHAELA SO, CMP #### [facility] [address] [address] [address] Chris Real ALT [Catalytic activity/Vol] 19 U/L Critically low 21-72 [facility] Comment on above: Performed By: #### L MIHAELA SO, CMP #### [facility] [address] [address] [address] Chris Real Anion gap [Moles/Vol] 12.8 mmol/L Normal [facility] Comment on above: Performed By: #### L MIHAELA SO, CMP #### [facility] [address] [address] [address] Chris Real AST [Catalytic activity/Vol] 23 U/L Normal 17-59 [facility] Comment on above: Performed By: #### L MIHAELA SO, CMP #### [facility] [address] [address] [address] Chris Real Bilirubin [Mass/Vol] 1.0 mg/dL Normal 0.2-1.3 [facility] Comment on above: Performed By: #### L MIHAELA SO, CMP #### [facility] [address] [address] [address] Chris Real Calcium [Mass/Vol] 8.6 mg/dL Normal 8.4-10.2 [facility] Comment on above: Performed By: #### L MIHAELA SO, CMP #### [facility] [address] [address] [address] Chris Real Chloride [Moles/Vol] 98 mmol/L Normal 98-107 [facility] Comment on above: Performed By: #### L SARAY MIHAELA, CMP #### [facility] [address] [address] [address] Chris Real CO2 [Moles/Vol] 29.1 mmol/L Normal 22.0-30.0 [facility] Comment on above: Performed By: #### L MIHAELA SO, CMP #### [facility] [address] [address] [address] Chris Real Creatinine [Mass/Vol] 1.16 mg/dL Normal 0.66-1.25 [facility] Comment on above: Performed By: #### L MIHAELA SO, CMP #### [facility] [address] [place] [address] Dr. Chris Real EGFR-AF [facility] >60 Normal >=60 [facility] Comment on above: Performed By: #### L MIHAELA SO, CMP #### [facility] [address] [place] [address] Dr. Chris Real EGFR-NON AF [facility] >60 Normal >=60 [facility] Comment on above: Performed By: #### L MIHAELA SO, CMP #### [facility] [address] [place] [address] Dr. Chris Real Globulin (S) [Mass/Vol] 4.4 g/dL Normal T [facility] Comment on above: Performed By: #### L MIHAELA SO, CMP #### [facility] [address] [place] [address] Dr. Chris Real Glucose [Mass/Vol] 106 mg/dL Normal 74-106 [facility] Comment on above: Performed By: #### L MIHAELA SO, CMP #### [facility] [address] [place] [address] Dr. Chris Real Potassium [Moles/Vol] 2.9 mmol/L Critically low 3.4-5.0 [facility] Comment on above: Result Comment: TEST REPEATED; CRITICAL VALUE VERIFIED Performed By: #### L SARAY MIHAELA, CMP #### [facility] [address] [address] [address] Chris Real Protein [Mass/Vol] 7.1 g/dL Normal 6.1-8.2 [facility] Comment on above: Performed By: #### L IPA MIHAELA, CMP #### [facility] [address] [address] [address] Chris Real Sodium [Moles/Vol] 137 mmol/L Normal 137-145 [facility] Comment on above: Performed By: #### L SARAY MIHAELA, CMP #### [facility] [address] [address] [address] Chris Real Urea nitrogen [Mass/Vol] 12.0 mg/dL Normal 9.0-20.0 [facility] Comment on above: Performed By: #### L MIHAELA SO, CMP #### [facility] [address] [place] [address] Dr. Chris Real Urea nitrogen/Creatinine [Mass ratio] 10.3 mg/mg Normal [facility] Comment on above: Performed By: #### L MIHAELA SO, CMP #### [facility] [address] [place] [address] Dr. Chris Real US RUSSEL DOP LEG [...] by: KOFFI DAO Date: 2021-08-31 21:29 Normal [facility] XR CHEST 1 Von 08-31-2021 XR CHEST 1 V EXAM: XR CHEST 1 V HISTORY: SHORTNESS OF BREATH COMPARISON: Chest x-ray dated 03/22/2015. FINDINGS: Bilateral interstitial marking prominence. Cardiomegaly. No definite pneumothorax. IMPRESSION: Bilateral interstitial marking prominence and cardiomegaly concerning for pulmonary edema. Electronically authenticated by: LALO HICKMAN Date: 2021-08-31 21:[address] [facility] Clinical Summaryo n 02-24-2021 Ambulatory Clinical Summary {[id number] D:[id number] Normal [facility] Patient Educationon 02-25-20 21 Patient Education [...] Document Reviewed: 06/14/2008 ExitCare? Patient Information ?2013 [employer]. Michael [facility] Urology Office/Clinic Noteon 02-24-2021 Urology Office/Clinic Note Chief Complaint 2 month f/u Patient is a 65-year-old male with a history of a left distal ureteral calculus. He status post cystoscopy and retrograde pyelograms, ureteroscopy and urethral dilation. Apparently the urethral dilation has significantly improved his voiding pattern. He had no complaints since his procedure and is here today for follow-up visit. [facility] Staff [place] is a 65 y.o. male [...] Urnls Dip Stick Auto w/o Microscopy POC 14751 I have reviewed the previous health record information and history for this pt. from Dr. Caballero. Follow-up With When Contact Information Federico Tavarez MD, Rene Wallace, [facility] [address] [place] [address] [place] [address]- Additional Instructions: prn Patient Education Benign Prostatic Hyperplasia Radha Alvarado , personally scribed for Dr. Caballero on [...] replacement, [place] (more content not included)... Normal [facility] Comment on above: Result Comment: Elec tronically Signed By: Federico Tavarez MD, Rene Wallace\.br\Date and Time Signed: 02/24/21 13:11 EDT\.br\Electronically Co-Signed By: Radha Lan MA\.br\Date and Time Co-Signed: 02/24/21 11:29 EDT Provider Letteron 02-03-2021 Provider Letter (Inserted Image. Aleshia ble to display) February 03, 2021 INDIO COLLADO [address] [place] [id number] INDIO COLLADO 1955 Dear Indio , You [...] [facility] [address], [place] [address] [facility] Physician Referralon 021 Physician Referral [id number]:127 [facility] ECG 12-Leadon 12-02-2020 ECG 12-Lead [id number]#1.00CD:12 7 [facility] Lab Reportson 12-02-2020 Lab Reports [id number]#1.00CD:12 7 [facility] Lab Reports [id number]#1.00CD:12 7 [facility] Lab Reports [id number]#1.00CD:12 7 [facility] Lab Reports [id number]#1.00CD:12 7 [facility] RAD - MISCon 12-02-2020 RAD - MISC [id number]#1.00CD:12 7 [facility] Operative Reporton Operative Report [id number]#1.00CD:12 7 [facility] Ambulatory Clinical Summaryo n 11-13-2020 Ambulatory Clinical Summary {[id number] D:[id number] [facility] Patient Educationon 11-13-19 Patient Education Family [...] Document Reviewed: 08/07/2010 ExitCare? Patient Information ?2013 [employer]. [facility] Physician Orderon 11-13-2020 Physician Order [id number]:12 7 [facility] Pre-Authorization for Medica l Treatmenton 11-13-2020 Pre-Authorization for Medical Treatment [id number]#1.00CD:1 27 [facility] Urology Office/Clinic Noteon 11-13-2020 Urology Office/Clinic [...] month fu w/ CT. CT done at [facility] on 10/17/2020 Pt states that [...] Present Illness Reviewed urine and CT from [facility]. There have been no associated [...] Urnls Dip Stick Auto w/o Microscopy POC 25917 Urology Procedure Order 3. Nocturia (R35.1: Nocturia) 2x/night. Ordered: Urology Procedure Order 4. Urge incontinence (N39.41: Urge incontinence) Moderate - severe. Ordered: Urology Procedure Order 5. Abdominal pain (R10.9: Unspecified abdominal pain) LLQ. Ordered: Urology Procedure Order I have reviewed the previous health record information and history for this pt. from Dr. Caballero. Follow-up With When Contact Information Federico Tavarez MD, Rene Wallace [address] [place] [phone]- Additional Instructions: Patient Education Kidney Stones, Thdu-gf-Mccg I, Radha Lan , personally scribed for Dr. Caballero on 11/13/2020 09:19:01. . Documentation recorded by the scribe, Radha Lan, accurately reflects the services(s) I performed and decisions m (more content not included)... [facility] Comment on above: Result Comment: Elec tronically Signed By: Federico Tavarez MD, Rene Wallace\.br\Date and Time Signed: 11/13/20 09:42 EST\.br\Electronically Co-Signed By: Radha Lan MA\.br\Date and Time Co-Signed: 11/13/20 09:19 EST RAD - CT Reporton 10-31-2020 RAD - CT Report [id number]#1.00CD:12 7 [facility] Vital Signs Date Time Vital Sign Value Performing Clinician Facility 07-30-2024 15:53-0400 Body height 175.3 cm Juhi Hemmer PA Work Phone: [facility] 07-30-2024 15:53-0400 Body mass index (BMI) [Ratio] 25.87 kg/m2 Juhi Hemmer PA Work Phone: [facility] 07-30-2024 15:53-0400 Body weight 79.47 kg Juhi Hemmer PA Work Phone: [facility] 07-30-2024 15:53-0400 Diastolic blood pressure 82 mm[Hg] Juhi Hemmer PA Work Phone: [facility] 07-30-2024 15:53-0400 Heart rate 66 /min Juhi Hemmer PA Work Phone: [facility] 07-30-2024 15:53-0400 Respiratory rate 16 /min Juhi Hemmer PA Work Phone: [facility] 07-30-2024 15:53-0400 SaO2% (BldA) [Mass fraction] 97 % Juhi Hemmer PA Work Phone: [facility] 07-30-2024 15:53-0400 Systolic blood pressure 120 mm[Hg] Juhi Hemmer PA Work Phone: [facility] 12-05-2023 09:55-0500 Body mass index (BMI) [Ratio] 29.51 kg/m2 Juhi Hemmer PA Work Phone: [facility] 12-05-2023 09:55-0500 Body temperature 99 [degF] Juhi Hemmer PA Work Phone: [facility] 12-05-2023 09:55-0500 Body weight 90.63 kg Juhi Hemmer PA Work Phone: [facility] 12-05-2023 09:55-0500 Diastolic blood pressure 100 mm[Hg] Juhi Hemmer PA Work Phone: [facility] 12-05-2023 09:55-0500 Heart rate 102 /min Juhi Hemmer PA Work Phone: [facility] 12-05-2023 09:55-0500 Respiratory rate 16 /min Juhi Hemmer PA Work Phone: [facility] 12-05-2023 09:55-0500 SaO2% (BldA) [Mass fraction] 98 % Juhi Hemmer PA Work Phone: [facility] 12-05-2023 09:55-0500 Systolic blood pressure 162 mm[Hg] Juhi Hemmer PA Work Phone: [facility] 11-08-2023 09:49-0500 Body height 175.3 cm Helen Gonzalez MD Work Phone: [facility] 11-08-2023 09:49-0500 Body mass index (BMI) [Ratio] 29.09 kg/m2 Helen Gonzalez MD Work Phone: [facility] 11-08-2023 09:49-0500 Body weight 89.36 kg Helen Gonzalez MD Work Phone: [facility] 11-08-2023 09:49-0500 Diastolic blood pressure 86 mm[Hg] Helen Gonzalez MD Work Phone: [employer] 11-08-2023 09:49-0500 Heart rate 48 /min Helen Gonzalez MD [facility] 11-08-2023 09:49-0500 SaO2% (BldA) [Mass fraction] 99 % Helen Gonzalez MD Work Phone: [employer] 11-08-2023 09:49-0500 Systolic blood pressure 160 mm[Hg] Helen Gonzalez MD [facility] Phone: [facility] 11-09-2022 12:47-0500 Diastolic blood pressure 88 mm[Hg] Fredrick Boothby DO Work Phone: [employer] 11-09-2022 12:47-0500 Heart rate 76 /min Fredrick Boothby DO Work Phone: [facility] 11-09-2022 12:47-0500 Respiratory rate 10 /min Fredrick Boothby DO Work Phone: [facility] 11-09-2022 12:47-0500 SaO2% (BldA) [Mass fraction] 100 % Fredrick Boothby DO Work Phone: [facility] 11-09-2022 12:47-0500 Systolic blood pressure 162 mm[Hg] Fredrick Boothby DO Work Phone: [facility] 11-09-2022 12:17-0500 Body temperature 97 [degF] Fredrick Boothby DO Work Phone: [facility] 11-09-2022 11:14-0500 Body height 175.3 cm Fredrick Boothby DO Work Phone: [facility] 11-09-2022 11:14-0500 Body mass index (BMI) [Ratio] 29.98 kg/m2 Fredrick Boothby DO Work Phone: [facility] 11-09-2022 11:14-0500 Body weight 92.08 kg Fredrick Boothby DO Work Phone: [facility] 10-05-2022 10:14-0500 Body height 175.26 cm II Christopher Velazquez Work Phone: [facility] 10-05-2022 10:14-0500 Body mass index (BMI) [Ratio] 31.4 kg/m2 II Christopher Velazquez Work Phone: [facility] 10-05-2022 10:14-0500 Body weight 96.61 kg II Christopher Velazquez Work Phone: [facility] 10-05-2022 09:45-0500 Body temperature 97.5 [degF] II Christopher Velazquez Work Phone: [facility] 10-05-2022 09:45-0500 Diastolic blood pressure 84 mm[Hg] II Christopher Velazquez Work Phone: [facility] 10-05-2022 09:45-0500 Heart rate 68 /min II Christopher Velazquez Work Phone: [facility] 10-05-2022 09:45-0500 Respiratory rate 18 /min II Christopher Velazquez Work Phone: [facility] 10-05-2022 09:45-0500 Systolic blood pressure 160 mm[Hg] II Christopher Velazquez Work Phone: [facility] 09-30-2022 13:59-0500 Body temperature 97.9 [degF] II Christopher Velazquez Work Phone: [facility] 09-30-2022 13:59-0500 Diastolic blood pressure 83 mm[Hg] II Christopher Velazquez Work Phone: [facility] 09-30-2022 13:59-0500 Heart rate 56 /min II Christopher Velazquez Work Phone: [facility] 09-30-2022 13:59-0500 SaO2% (BldA) [Mass fraction] 95 % II Christopher Velazquez Work Phone: [facility] 09-30-2022 13:59-0500 Systolic blood pressure 135 mm[Hg] II Christopher Velazquez Work Phone: [facility] 09-30-2022 07:45-0500 Respiratory rate 18 /min II Christopher Velazquez Work Phone: [facility] 09-29-2022 07:28-0500 Body height 175.26 cm II Christopher Velazquez Work Phone: [facility] 09-26-2022 05:50-0500 Body weight 105 kg II Christopher Velazquez Work Phone: [facility] Encounters Encounter Date Encounter Type Care Provider Facility Start: 07-30-2024 End: 07-30-2024 Office outpatient visit 25 minutes Juhi HANSEN Work Phone: [facility] Comment on above: Lumbar spondylosis ( Primary Dx); Closed compression fracture of body of L1 vertebra (HCC) (CMS/HCC); Need for vaccination; Retrolisthesis of vertebrae Start: 07-30-2024 End: 07-30-2024 ambulatory JUHI SULLIVAN Not Available Start: 07-30-2024 End: 07-30-2024 Bamboo flowsheet Juhi Sullivan PA Work Phone: [facility] Start: 07-30-2024 End: 07-30-2024 Bamboo flowsheet Juhi Sullivan PA Work Phone: [facility] Start: 07-12-2024 End: 07-12-2024 ambulatory ALEXANDRE REINOSO Not Available Start: 07-10-2024 ambulatory CHRISTOPHER VELAZQUEZ [facility] Start: 07-09-2024 End: 07-31-2024 Telephone encounter Eva Sanchez DO Work Phone: [facility] Comment on above: surgery Start: 06-28-2024 End: 06-28-2024 ambulatory EVA SANCHEZ Not Available Start: 06-21-2024 End: 06-21-2024 ambulatory COLLEEN ABDI Not Available Start: 06-14-2024 End: 06-14-2024 ambulatory CHRISTOPHER VELAZQUEZ Not Available Start: 06-13-2024 End: 06-13-2024 ambulatory EVA SANCHEZ Not Available Start: 06-12-2024 End: 06-12-2024 ambulatory COLLEEN ABDI Not Available Start: 06-07-2024 End: 06-07-2024 ambulatory EVA SANCHEZ Not Available Start: 06-06-2024 End: 06-06-2024 ambulatory JOSEP PIERRE Not Available Start: 06-06-2024 End: 06-06-[address] [facility] Start: 05-31-2024 End: 05-31-2024 ambulatory CHRISTOPHER VELAZQUEZ Not Available Start: 05-18-2024 End: 05-18-2024 ambulatory CHRISTOPHER VELAZQUEZ Not Available Start: 05-16-2024 End: 05-16-2024 ambulatory CHRISTOPHER VELAZQUEZ Not Available Start: 05-09-2024 End: 05-09-[address] [facility] Start: 04-30-[address] [facility] Start: 04-30-2024 End: 04-30-[address] [facility] Start: 04-24-2024 End: 04-24-2024 ambulatory NANDO S LAINEY Not Available Start: 04-17-2024 End: 04-17-2024 ambulatory NANDO S LAINEY Not Available Start: 04-10-2024 End: 04-10-[address] [facility] Start: 04-05-2024 End: 04-05-2024 ambulatory EVA SANCHEZ Not Available Start: 03-29-2024 End: 03-29-2024 ambulatory G[facility] Start: 03-09-2024 End: 03-09-2024 ambulatory JUHI SULLIVAN Not Available Start: 03-08-2024 End: 03-08-[address] [facility] Start: 03-02-2024 ambulatory CHRISTOPHER VELAZQUEZ [facility] Start: 03-02-2024 ambulatory CHRISTOPHER VELAZQUEZ [facility] Start: 02-29-2024 ambulatory [facility] Start: 02-29-2024 End: 02-29-2024 ambulatory [facility] Start: 02-14-2024 End: 02-14-2024 [facility] Start: 01-28-2024 End: 01-29-2024 Emergency department patient visit LAUREN Brooks [facility] Start: 01-17-2024 End: 01-17-2024 ambulatory NANDO Randall MARLO Not Available Start: 01-09-2024 End: 01-09-2024 ambulatory [...] Not Available Start: 12-05-2023 Bamboo flowsheet Juhi Chandra r PA Work Phone: [facility] Start: 12-05-2023 Bamboo flowsheet Juhi Chandra r PA Work Phone: [facility] Start: 12-05-2023 End: 12-05-2023 Office outpatient visit 15 minutes Juhi Sullivan PA Work Phone: [facility] Comment on above: Chronic obstructive pulmonary disease with acute exacerbation (CMS/HCC) (Primary Dx) Start: 12-05-2023 End: 12-05-2023 ambulatory JUHI SULLIVAN Not Available Start: 11-16-2023 End: 11-16-2023 ambulatory CHRISTOPHER VELAZQUEZ Not Available Start: 11-08-2023 End: 11-08-2023 ambulatory HELENZOILA GONZALEZ [facility] Start: 11-08-2023 End: 11-08-2023 Office outpatient visit 10 minutes Helen Gonzalez MD Work Phone: [facility] Comment on above: Venous insufficiency of both lower extremities (Primary Dx); Lymphedema of both lower extremities Start: 11-03-2023 End: 11-04-2023 ambulatory [facility] Start: 10-26-2023 Telephone encounter Helen Gonzalez MD Work Phone: [facility] Start: 10-25-2023 End: 10-25-2023 ambulatory EVA García KAY Not Available Start: 10-11-2023 End: 10-11-2023 ambulatory [facility] Start: 01-10-2023 End: 01-10-2023 ambulatory CHRISTOPHER Jasmin VELAZQUEZ [facility] Start: 11-09-2022 End: 11-09-2022 ambulatory FREDRICK Joseph [facility] Start: 11-09-2022 End: 11-09-2022 Subsequent hospital visit by physician Fredrick Babin DO Work Phone: [facility] Comment on above: Surgical site infect ion (Primary Dx); Post-op pain Start: 11-08-2022 End: 11-08-2022 ambulatory CHRISTOPHER VELAZQUEZ [facility] Start: 10-19-2022 End: 10-27-2022 Evaluation and management [facility] Start: 10-14-2022 End: 10-14-2022 ambulatory CHRISTOPHER VELAZQUEZ [facility] Start: 10-05-2022 ambulatory Christopher Velazquez Facility:[facility] Start: 10-05-2022 End: 10-05-2022 ambulatory II Christopher Velazquez Work Phone: [facility] Work Phone: Start: 10-05-2022 End: 10-05-2022 Discharged Recurring II Christopher Velazquez Work Phone: [facility] Work Phone: Start: 09-11-2022 End: 09-30-2022 Evaluation and management of inpatient Gordon Smith Facility:[facility] Start: 09-11-2022 End: 09-30-2022 Evaluation and management of inpatient II Christopher Velazquez Work Phone: [facility] Work Phone: Start: 09-06-2022 ambulatory Marina Cheng Facility:[facility] Start: 09-05-2022 End: 09-11-2022 Evaluation and management of inpatient MICHAEL REINOSO [facility] Start: 09-05-2022 Emergency department patient visit CHRISTOPHER VELAZQUEZ [facility] Start: 09-03-2022 End: 09-04-2022 ambulatory Marina [...] Evaluation and management of inpatient CHRISTOPHER YANG Facility:[facility] Start: 10-22-2021 End: 10-22-[address] CHRISTOPHER VELAZQUEZ Facility:[facility] Start: 08-31-2021 End: 09-01-[address] CHRISTOPHER VELAZQUEZ Facility:[facility] Procedures Date Procedure Procedure Detail Performing Clinician Start: 12-06-2023 Arthrocentesis aspir &/inj major jt/bursa w/o Eva Sanchez DO Work Phone: Start: 11-08-2023 [...] Td Vaccines (3 - Td or Tdap) [facility] Start: 09-05-2032 DTaP/Tdap/Td vaccine (3 - Td or Tdap) DTaP/Tdap/Td vaccine (3 - Td or Tdap) [facility] Start: 09-27-2029 Screening for malign ant neoplasm of colon [facility] Start: 11-08-2024 Adult BMI Screening Adult BMI Screen ing [facility] Start: 11-08-2024 Tobacco Screening Tobacco Screening [facility] Start: 10-13-2024 Tobacco Screening Tobacco Screening [facility] Start: 10-11-2024 Adult BMI Screening Adult BMI Screen ing [facility] Start: 08-18-2024 Urine screening for protein Diabetes: Urine Protein Screening [facility] Start: 07-30-2024 End: 07-30-2024 Patient encounter procedure 07/30/2024 4:00 PM EDT Office Visit [facility] [address] [place] [address] Juhi Sullivan PA [address] [place] [address] Arrived [facility] Comment on above: Arrived Start: 07-30-2024 End: 07-30-2025 MR Lumbar spine WO contrast MR lumbar spine wo contrast Imaging Routine Lumbar spondylosis Closed compression fracture of body of L1 vertebra (HCC) ([facility]/HCC) Retrolisthesis of vertebrae Expected: 07/30/2024, Expires: 07/30/2025 [facility] Work Phone: Comment on above: Expected: 07/30/2024 , Expires: 07/30/2025 Start: 06-24-2024 Influenza vaccination Influenza Vacc ine (#1) [facility] Start: 06-09-2024 Hemoglobin A1c measurement Diabetes: Hemoglobin A1C [facility] Start: 02-07-2024 End: 02-07-2024 Patient encounter procedure 02/07/2024 1:00 PM EDT Office Visit [facility] [address] [place] [address] Helen Gonzalez MD [address] [place] [address] [facility] Start: 01-31-2024 End: 01-31-2024 Patient encounter procedure 01/31/2024 1:15 PM EDT Office Visit [facility] [address] [facility] [address] [place] [id number] Eva Sanchez DO [address] [place] [address] [facility] Start: 01-13-2024 Medicare Annual Well ness (AWV) Medicare Annual Wellness (AWV) [facility] Start: 12-19-2023 End: 12-19-2023 Patient encounter procedure 12/19/2023 2:30 PM EST Office Visit [facility] [address] [place] [address] Christopher Velazquez MD [address] [place] [address] [facility] Start: 12-05-2023 End: 12-05-2023 Patient encounter procedure 12/05/2023 10:00 AM EST Office Visit [facility] [address] [place] [address] Juhi Sullivan PA [address] [place] [address] Arrived [facility] Comment on above: Arrived Start: 11-08-2023 End: 11-08-2023 Patient encounter procedure 11/08/2023 10:10 AM EST Office Visit [facility] [place] [place] [address] Helen Gonzalez MD [address] [place] [address] [facility] Start: 11-03-2023 End: 11-03-2023 Patient encounter procedure 11/03/2023 2:30 PM EST Appointment [facility] [address] [facility] [address] Helen Gonzalez MD [address] [place] [address] [facility] Start: 10-28-2023 Hemoglobin A1c measurement Diabetes: Hemoglobin A1C [facility] Start: 06-24-2023 COVID-19 Vaccine ( season) COVID-19 Vaccine () [facility] Start: 11-22-2022 End: 11-22-2022 Patient encounter procedure 11/22/2022 Office Visit Orthopedic Surgery Fredrick Babin, DO [address] [place] [address] [facility] Start: 11-15-2022 End: 11-15-2022 Patient encounter procedure 11/15/2022 Office Visit Orthopedic Surgery Fredrick Babin, DO [address] [place] [address] [facility] Start: 11-09-2022 End: 11-09-2022 ANKLE OPEN REDUCTION INTERNAL FIXATION ANKLE OPEN REDUCTION INTERNAL FIXATION Open wound of left ankle, initial encounter 11/09/2022 11:14 AM [facility] Start: 11-08-2022 Annual Wellness Visi t (AWV) Annual Wellness Visit (AWV) [facility] Start: 09-30-2022 [facility] Start: 09-19-2022 Referral to vascular surgeon [facility] Start: 09-11-2022 Hospital admission [facility] Start: 09-11-2022 Referral to clinical us marketing director [facility] Start: 05-24-2022 Influenza vaccination Flu vaccine (# 1) [facility] Start: 05-15-2022 Administration of varicella zoster vaccine Zoster (Shingles) Vaccine (2 of 2) [facility] Start: 05-15-2022 Shingles vaccine (2 of 2) Shingles vaccine (2 of 2) [facility] Start: 02-27-2022 Lipid panel Lipids [facility] Start: 12-10-2021 COVID-19 Vaccine (4 - Booster for Pfizer series) COVID-19 Vaccine (4 - Booster for Pfizer series) [facility] Start: 04-23-2021 Glaucoma screening Diabetes: R etinopathy Screening [facility] Start: 2021 Fall Risk Screening Fall Risk Screen ing [facility] Start: 2001 Screening for malign ant neoplasm of colon [facility] Start: 1974 Adult BMI Follow Up Plan Adult BMI Follow Up Plan [facility] Start: 1974 Diabetic foot examination Diabetic Foot Exam [facility] Start: 1974 Hepatitis C screening Hepatitis C sc reen [facility] Start: 1968 Depression Screen Depression Screen [facility] Start: 1968 Depression Screening Depression Scre ening [facility] Start: 1956 Glaucoma screening Diabetic Op hthalmology Exam [facility] Start: 1956 Medicare Annual Well ness Visit Medicare Annual Wellness Visit [facility] Start: 1956 Screening for malign ant neoplasm of colon [facility] End: 11-09-2022 INITIATE PACU OXYGEN THERAPY PROTOCOL Initiate PACU Oxygen Therapy Protocol Respiratory Care Routine Continuous until discontinued starting 11/09/2022 [facility] Work Phone: Comment on above: Continuous until dis continued starting 11/09/2022 Patient Education Deep Vein Thro mbosis (Blood Clots in the Legs) (DC) Apixaban Going Home on Blood Thinners [facility] Work Phone: Patient referral [facility] Work Phone: End: 11-09-2022 POC CHEM8 INCLUDES CALC. ANION GAP POC CHEM8 INCLUDES CALC. ANION GAP Point of Care Testing STAT One Time for 1 Occurrences starting 11/09/2022 until 11/09/2022 [facility] Work Phone: Comment on above: One Time for 1 Occur rences starting 11/09/2022 until 11/09/2022 [facility] Immunizations Immunization Date Immunization Notes Care Provider John freed 07-30-2024 Influenza, High-dose Seasonal, Quadrivalent, Preservative Free Juhi HANSEN Work Phone: [facility] 08-18-2023 Influenza, High-dose Seasonal, Quadrivalent, Preservative Free Juhi HANSEN Work Phone: [facility] 08-18-2023 influenza virus vacc ine, unspecified formulation Juhi HANSEN Work Phone: [facility] 09-05-2022 tetanus toxoid, redu vianey diphtheria toxoid, and acellular pertussis vaccine, adsorbed Fredrick Babin DO Work Phone: [facility] 07-05-2022 tetanus toxoid, redu vianey diphtheria toxoid, and acellular pertussis vaccine, adsorbed Juhi Hemmer PA Work Phone: [facility] 03-20-2022 zoster vaccine recombinant Juhi Hemmer PA Work Phone: [facility] 03-20-2022 zoster vaccine, unspecified formulation Helen Gonzalez MD Work Phone: [facility] 03-09-2022 Pneumococcal Conjuga te PCV 20 Juhi Hemmer PA Work Phone: [facility] 02-15-2022 pneumococcal polysaccharide vaccine, 23 valent Juhi Hemmer PA Work Phone: [facility] 09-10-2021 influenza, high dose seasonal, preservative-free Juhi Hemmer PA Work Phone: [facility] 09-09-2021 influenza, high dose seasonal, preservative-free Juhi Hemmer PA Work Phone: [facility] 02-23-2021 Pfizer Purple Cap SARS-CoV-2 Vaccination Juhi Hemmer PA Work Phone: [facility] 02-22-2021 Pfizer Purple Cap SARS-CoV-2 Vaccination Juhi Hemmer PA Work Phone: [facility] 01-26-2021 Pfizer Purple Cap SARS-CoV-2 Vaccination Juhi Hemmer PA Work Phone: [facility] 01-25-2021 Pfizer Purple Cap SARS-CoV-2 Vaccination Juhi Hemmer PA Work Phone: [facility] 08-25-2020 influenza, injectabl e, quadrivalent, preservative free Juhi Hemmer PA Work Phone: [facility] 08-06-2020 influenza, high dose seasonal, preservative-free Juhi Hemmer PA Work Phone: [facility] 08-13-2019 Influenza, injectabl e, Madin Janie Canine Kidney, quadrivalent with preservative Juhi Hemmer PA Work Phone: [facility] 08-13-2019 influenza, injectabl e, madin janie canine kidney, preservative free Juhi Hemmer PA Work Phone: [facility] 11-07-2018 influenza, injectabl e, quadrivalent, preservative free II Christopher Velazquez Work Phone: [facility] 08-02-2018 seasonal influenza, intradermal, preservative free Juhi Hemmer PA Work Phone: [facility] 08-31-2017 influenza, injectabl e, quadrivalent, preservative free Juhi Hemmer PA Work Phone: [facility] 08-25-2012 pneumococcal polysaccharide vaccine, 23 valent Juhi Hemmer PA Work Phone: [facility] 08-25-2012 seasonal influenza, intradermal, preservative free Juhi Hemmer PA Work Phone: [facility] Payers Date Payer Category Payer Unknown [id number] 2022 Medicare [id number] 2022 Self-pay 2022 Unknown [id number] 2022 Unknown 2017 Unknown [id number] 2017 Unknown [id number] 2017 Unknown [id number] 2015 Medicare [id number] 1959 Unknown [id number] 1956 Unknown [id number] 2.16.840.1.617690.3.579.2 .647 1956 Unknown [id number] 2.16.840.1.114933.3.579.2 .593 1956 Unknown [id number] 2.16.840.1.821900.3.579.2 .593 1956 Unknown [id number] 2.16.840.1.090512.3.579.2 .593 1956 Unknown [id number] 2.16.840.1.741280.3.579.2 .593 1956 Unknown [id number] 2.16.840.1.074109.3.579.2 .175 1956 Unknown [id number] 2.16.840.1.521889.3.579.2 .196 1956 Unknown [id number] 2.16.840.1.031315.3.579.2 .196 1956 Unknown [id number] 2.16.840.1.796248.3.579.2 .196 1956 Unknown [id number] 2.16.840.1.392236.3.579.2 .196 1956 Unknown [id number] 2.16.840.1.209788.3.579.2 .196 1956 Unknown [id number] 2.16.840.1.019255.3.579.2 .175 1956 Unknown [id number] 2.16.840.1.215081.3.579.2 .175 1956 Unknown [id number] 2.16.840.1.790647.3.579.2 .175 1956 Unknown [id number] 2.16.840.1.744152.3.579.2 .175 1956 Unknown [id number] 2.16.840.1.443786.3.579.2 .175 1956 Unknown [id number] 2.16.840.1.771535.3.579.2 .1286 1956 Unknown [id number] 2.16.840.1.769674.3.579.2 .1286 1956 Unknown [id number] 2.16.840.1.837444.3.579.2 .1285 1956 Unknown [id number] 2.16.840.1.567768.3.579.2 .1285 1956 Unknown [id number] 2.16.840.1.104642.3.579.2 .1285 1956 Unknown [id number] 2.16.840.1.217943.3.579.2 .1285 1956 Unknown [id number] 2.16.840.1.612120.3.579.2 .1285 1956 Unknown [id number] 2.16.840.1.948280.3.579.2 .1285 1956 Unknown [id number] 2.840.1.361514.3.579.2 .1258 1956 Unknown [id number] 2.16840.1.178092.3.579.2 .1258 1956 Unknown [id number] 2.16.840.1.034196.3.579.2 .1258 1956 Unknown [id number] 2.16.840.1.831734.3.579.2 .1258 1956 Unknown [id number] 2.840.1.725052.3.579.2 .1258 1956 Unknown [id number] 2.16.840.1.737310.3.579.2 .1258 1956 Unknown [id number] 2.16.840.1.869900.3.579.2 .1258 1956 Unknown [id number] 2.16.840.1.213498.3.579.2 .1258 1956 Unknown [id number] 2.16.840.1.906295.3.579.2 .1258 1956 Unknown [id number] 2.16.840.1.051689.3.579.2 .1259 1956 Unknown [id number] 2.16.840.1.881558.3.579.2 .1258 1956 Unknown [id number] 2.16.840.1.812571.3.579.2 .1258 1956 Unknown [id number] 2.16.840.1.204508.3.579.2 .1258 1956 Unknown [id number] 2.16.840.1.754299.3.579.2 .1258 1956 Unknown [id number] 2.16.840.1.806676.3.579.2 .1258 1956 Unknown [id number] 2.16.840.1.498279.3.579.2 .1258 1956 Unknown [id number] 2.840.1.152167.3.579.2 .1258 1956 Unknown [id number] 2.16.840.1.812626.3.579.2 .1258 1956 Unknown [id number] 2.16840.1.662335.3.579.2 .1258 1956 Unknown [id number] 2.16840.1.199037.3.579.2 .1258 1956 Unknown [id number] 2.840.1.119613.3.579.2 .1258 1956 Unknown [id number] 2.16.840.1.299172.3.579.2 .1258 1956 Unknown [id number] 2.16840.1.684338.3.579.2 .1259 Private Health Insurance [facility] [id number] Unknown [id number] 2.16840.1.088951.3.579.2 .531 Unknown [id number] 2.16.840.1.586814.3.579.2 .531 Social History Date Type Detail Facility Start: 09-06-2022 End: 04-17-2024 Tobacco smoking status NJIS Ex-smoker [facility] End: 10-24-2005 History of tobacco use Current smoker [facility] Phone: End: 10-24-2005 History of tobacco use Cigarette Smoker [facility] Phone: Start: 09-06-2022 End: 07-25-2023 Tobacco use and exposure Smokeless tobacco non-user [facility] Phone: Start: 11-09-2022 End: 05-31-2024 Alcohol intake Ex-drinker (finding) [facility] Phone: Start: 06-06-2013 Alcohol Comment occasional [facility] Phone: Start: 1955 Sex Assigned At Not on file [facility] Phone: Start: 10-09-2022 End: 10-19-2022 Exposure to SARS-CoV-2 (event) Not sure [facility] Start: 1955 Sex Assigned At Male [facility] Start: 05-30-2023 End: 07-25-2023 Cigarettes smoked current (pack per day) - Reported 1.5 [facility] Start: 10-13-2023 End: 11-08-2023 Alcohol intake Current non-drinker of alcohol (finding) [facility] Start: 05-30-2023 End: 10-13-2023 Tobacco use panel [facility] How hard is it for y ou to pay for the very basics like food, housing, medical care, and heating Not hard at all [facility] Within the last year , have you been afraid of your partner or ex-partner? No [facility] Work Phone: Do you belong to any clubs or organizations such as lutheran groups, unions, fraternal or athletic groups, or [...] S Stl St Thrd Sm Hex - [id number] Start: 09-06-2022 Plate Bone L103m m 7 H Strl Lt Lat Dstl Fibular S Stl For - [id number] Start: 10-19-2022 Goals Date Patient Goal Desired Activity /State Personal health goal Comment on above: Formatting of this n ote might be different from the original. Evaluation of progress towards goal: Safe dc transition from hospital to home with family support. Functional Status Date Assessment Result Facility 09-30-2022 Functional status Patient is Pro gressing Toward Baseline [facility] Work Phone: 09-11-2022 Functional status Disability Sta tus Patient is Progressing Toward Baseline [facility] Work Phone: Mental Status Date Assessment Result Facility 09-30-2022 Cognitive function Cognitive Sta tus Patient at Baseline [facility] Work Phone: Clinical Notes 10-31-2020 to 07-30-2024 JADE Porter - 07/30/2024 4:00 PM EDTTelephone Encounter - Tammy Boo, RN - 07/10/2024 4:00 PM EDTTelephone Encounter - Tammy Boo, RN - 07/10/2024 4:00 PM EDTDischarge Instructions Note Date & Type Note Facility 07-30-2024 History of Present illness Narrative Images from the original note were not included. Subjective Patient ID: Indio Collado is a 69 y.o. male who presents for back pain. Indio is present today for follow up back pain. He is currently on Hydrocodone 5/325 but does not feel that dose is controlling his pain very well and would like to discuss increasing the dosage. Mows with a zero turn mower, this makes his back pain much worse. States has a few more weeks and then this season will be over. Feels like he is wasting his time going to PT until he is done with mowing. States his left shoulder needs surgery and he also has left lower leg pain. States the Tizanidine help him sleep, but make him too sleepy to take during the day. Current Outpatient Medications on File Prior to Visit Medication Sig Dispense Refill amiodarone (Pacerone) 100 MG tablet Take 100 mg by mouth in the morning. atorvastatin (Lipitor) 80 MG tablet TAKE 1 TABLET BY MOUTH EVERY DAY 90 tablet 2 dapagliflozin (Farxiga) 10 MG Take 10 mg by mouth in the morning. Dietary Management Product (Vasculera) tablet Take 1 tablet by mouth in the morning. Eliquis 5 MG tablet fludrocortisone (Florinef) 0.1 MG tablet Take 1 tablet (0.1 mg) by mouth at bedtime 90 tablet 3 FLUoxetine (PROzac) 20 MG capsule Take 20 mg by mouth in the morning. furosemide (Lasix) 20 MG tablet Take 2 tablets (40 mg) by mouth Daily gabapentin (Neurontin) 300 MG capsule Take 3 capsules by mouth in the morning , in the evening and before bedtime 270 capsule 5 metoprolol succinate XL (Toprol-XL) 25 MG 24 hr tablet Take 25 mg by mouth in the morning. omeprazole (PriLOSEC) [address] capsule TAKE 1 CAPSULE BY MOUTH EVERY DAY 30 MINUTES BEFORE MORNING MEAL FOR 90 DAYS 100 capsule 3 potassium chloride CR (Klor-Con M10) 10 MEQ ER tablet Take 20 mEq by mouth in the morning and 20 mEq in the evening. sacubitril-valsartan (Entresto) 24-26 MG tablet Take 1 tablet by mouth in the morning and 1 tablet in the evening. tiZANidine (Zanaflex) 4 MG tablet Take 1 tablet (4 mg) by mouth every 8 (eight) hours if needed for muscle spasms 60 tablet 1 zolpidem (Ambien) 10 MG tablet Take 1 tablet (10 mg) by mouth as needed at bedtime for sleep 30 tablet 2 [DISCONTINUED] HYDROcodone-acetaminophen (Bantam) 5-325 MG tablet Take 1 tablet by mouth every 6 (six) hours if needed for severe pain for up to 15 days 60 tablet 0 No current facility-administered medications on file prior to visit. I have reviewed and reconciled the history and medication list with the patient today. Allergies Allergen Reactions Penicillins Hives, Other, Rash and Unknown Morphine GI intolerance Doxycycline Itching Other Reaction(s): Itching Social History Tobacco Use Smoking status: Former Current packs/day: 0.00 Types: Cigarettes Quit date: 10/24/2005 Years since quittin.7 Tobacco comments: Last smoked 10-15 years Substance Use Topics Alcohol use: Not Currently Comment: Caffeine intake: yes, coffee Drug use: Yes Types: Hydrocodone Family History Problem Relation Name Age of Onset Hypertension Mother Diabetes Mother Other (liver failure) Mother Deep vein thrombosis Mother Cancer Mother Heart disease Father Hypertension Father Stroke Father Cancer Sibling Throat cancer Cousin Past Medical History: Diagnosis Date Abdominal wall abscess 09/01/2021 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) 08/04/2023 2nd toe Atrial fibrillation (CMS/HCC) Coronary artery disease (CMS/HCC) Diabetes mellitus (CMS/HCC) Diverticulosis H/O knee surgery 2021 Heart failure (CMS/HCC) History of blood clots Hx of being hospitalized acute renal failure, elevated troponin, elevated dimmer, thrombocytopenia Hypertension (CMS/HCC) Shingles Stomach problems Venous stasis ulcer Left Calf 2017 Past Surgical History: Procedure Laterality Date ANKLE SURGERY Left 11/09/2022 Wound VAC BARIATRIC SURGERY 2020 BOWEL RESECTION CARDIAC CATHETERIZATION 2017 CARDIAC CATHETERIZATION 03/29/2024 CARDIOVERSION 2023 CARDIOVERSION 04/30/2024 CHOLECYSTECTOMY 2011 COLONOSCOPY 09/2019 CORONARY ANGIOPLASTY WITH STENT PLACEMENT CT ANGIOGRAM CHEST 11/17/2018 CT ANGIOGRAM CHEST [facility] CYSTOSCOPY CYSTOSCOPY 11/14/2019 with urethrotomy EGD EGD 09/2019 EYE SURGERY Right 07/26/2024 Caract extraction IR JOINT ASPIRATION KNEE SURGERY 02/15/2022 LAPAROSCOPY GASTRECTOMY PARTIAL / TOTAL 08/04/2021 LEG SURGERY Left 08/2022 TOE AMPUTATION Left 08/04/2023 LT 2nd toe TONSILLECTOMY TOTAL KNEE ARTHROPLASTY TOTAL KNEE ARTHROPLASTY 2015 Visit Vitals BP 120/82 Pulse 66 Resp 16 Ht 5' 9 Wt 175 lb 3.2 oz SpO2 97% BMI 25.87 kg/m Smoking Status Former BSA 1.97 m Review of Systems Constitutional: Negative for chills, fatigue and fever. Respiratory: Negative for cough, shortness of breath and wheezing. Cardiovascular: Negative for chest pain, palpitations and leg swelling. Gastrointestinal: Negative for abdominal pain, constipation, diarrhea, nausea and vomiting. Musculoskeletal: Positive for arthralgias and back pain. Skin: Negative for rash. Neurological: Positive for weakness. Negative for numbness. Objective Physical Exam Constitutional: General: He is not in acute distress. Appearance: Normal appearance. HENT: Head: Normocephalic and atraumatic. Eyes: General: No scleral icterus. Cardiovascular: Rate and Rhythm: Normal rate and regular rhythm. Heart sounds: No murmur heard. Pulmonary: Effort: Pulmonary effort is normal. No respiratory distress. Breath sounds: Normal breath sounds. No wheezing, rhonchi or rales. Musculoskeletal: General: No swelling. Lumbar back: Spasms, tenderness (Right) and bony tenderness present. Negative right straight leg raise test and negative left straight leg raise test. Skin: General: Skin is warm and dry. Neurological: General: No focal deficit present. Mental Status: He is alert and oriented to person, place, and time. Sensory: No sensory deficit. Motor: Weakness (RLE 4/5) present. Gait: Gait abnormal. Psychiatric: Mood and Affect: Mood normal. Behavior: Behavior normal. Assessment/Plan Diagnoses and all orders for this visit: Lumbar spondylosis - HYDROcodone-acetaminophen (Bantam) 7.5-325 MG tablet; Take 1 tablet by mouth every 6 (six) hours if needed for severe pain for up to 15 days - MR lumbar spine wo contrast; Future Has tried OTC, muscle relaxer, pain medication, gabapentin, and physical therapy without consistent or lasting relief. Pt has right leg weakness. Will obtain MRI for further evaluation at this time. OARRS report generated and reviewed. Provided pt with Bantam 7.5 mg. Advised the goal will be to keep him on as low a dose for a short amount of time as possible. Advised he will likely not be pain free, the goal will be to improve quality of life and overall function. He is only to get this medication from our office. Must be seen in three months for medication follow up. Pt voiced understanding. Closed compression fracture of body of L1 vertebra (HCC) (CMS/HCC) - MR lumbar spine wo contrast; Future X-rays from April reviewed and discussed with patient in detail. Slight compression deformity of L1 noticed on x-ray. Age indeterminate. Will evaluate further with MRI. Need for vaccination - Influenza, high-dose seasonal, quadrivalent, PF ([id number]) (Fluzone High Dose Quad North 0.7mL dose) Provided pt with flu shot today, he tolerated this well. Retrolisthesis of vertebrae Comments: L2-L3 Orders: - MR lumbar spine wo contrast; Future Will assess further with MRI. Follow up in about 3 months (around 10/30/2024) for Medication Follow Up. documented in this encounter [facility] 07-10-2024 Telephone encounter Note We did received cardiac clearance. Referral placed to Dr Willis, [facility] [place]. His phone number is [phone]. Call back with any questions. [facility] 07-10-2024 Miscellaneous Notes We did received cardiac clearance. Referral placed to Dr Willis, he is a [facility] with [facility] in [place]. His phone number is [phone]. Call back with any questions. Pt called and left vm asking if received cardiac clearance yet from doctor, and if so he would like to schedule his sx. Please call him at [phone] documented in this encounter [facility] 07-09-2024 Telephone encounter Note Pt called and left vm asking if received cardiac clearance yet from doctor, and if so he would like to schedule his sx. Please call him at [phone] [facility] 06-06-2024 Note Pt is here for a one month follow up. Pt needs cleared for surgery. Review of Systems All other systems reviewed and are negative. [facility] 06-06-2024 Note Cardiovascular Medic [facility] SUBJECTIVE Chief Complaint Patient presents with Atrial Fibrillation Congestive Heart Failure Indio Collado is a 69 y.o. male here for follow-up. His friend/neighbor Emili accompanied him today. HPI PMHx: CAD, HTN, HFpEF, DVT, obesity s/p bariatric surgery, a.fib 06/06/2024 He is feeling better today. HR is improved since stopping Toprol. His leg swelling is improved. 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 Denies c/o CP, dyspnea, orthopnea, PND, LE edema, dizziness/LH, palpitations, syncope, bleeding issues. 05/09/2024 Since I last saw him, he [...] work at 3 jobs. He works at [employer] and eats their food when he drinks. [...] working 3 jobs. He started working a [employer] last month, this is when he noticed the weight gain. He admits to eating food at [employer] and drinking more pop that he typically does. He admits he needs to slow down with his jobs. He will likely quit [employer]. He notes that since his gastric bypass [...] extremity, limited to breakdown of skin (CMS/HCC) (more content not included)... [facility] 05-09-2024 Note Cardiovascular Medic [facility] SUBJECTIVE Chief Complaint Patient presents [...] work at 3 jobs. He works at [employer] and eats their food when he drinks. [...] working 3 jobs. He started working a [employer] last month, this is when he noticed the weight gain. He admits to eating food at [employer] and drinking more pop that he typically does. He admits he needs to slow down with his jobs. He will likely quit [employer]. He notes that since his gastric bypass [...] thrombosis (CMS/HCC) H (more content not included)... [facility] 04-30-2024 Note DIRECT CARDIOVERSION PROCEDURE NOTE Date: [...] consider ablation. Dave Pressley MD Cardiac Electrophysiology [facility] 04-30-2024 Note Patient: Indio sanders Procedure Information Date/Time: 04/30/24 0900 Procedure: Cardioversion - in three weeks Location: [facility] / [facility] (Cath) Providers: Dave Pressley MD Clinical information reviewed: Tobacco Allergies Meds Med Hx Surg Hx Fam Hx Physical Exam Airway Mallampati: II TM distance: >3 FB Neck ROM: full Cardiovascular Dental Pulmonary Abdominal Anesthesia Plan ASA 2 CSE Anesthetic plan and risks discussed with patient. Use of blood products discussed with patient who. Additional Equipment Requests [facility] 04-10-2024 Note HI Electrophysiology Consult Note [facility] Cardiology [facility] Reason for visit: atrial fibrillation HPI: [...] on file Intimate Partner Violence: Unknown (12/15/2023) [place] Safety & Environment Fear of Current or [...] alert, normal affec (more content not included)... [facility] 03-29-2024 Note Cardiovascular Labor atory Report FINAL [...] selective coronary angiography, placement of a 6 Citizen Of [place] Mynx environmental services supervisor closure device METHODS: After risks, benefits, and [...] micropuncture kit was upsized to a 6 [place] 11 cm sheath. Angiography via the sheath [...] procedure. All catheters were removed. A 6 [place] Mynx closure device was deployed per protocol [...] ejection fraction, atrial fibrillation, coronary artery disease [facility] 03-08-2024 Note Cardiovascular Medic [facility] SUBJECTIVE Chief Complaint Patient presents [...] work at 3 jobs. He works at [employer] and eats their food when he drinks. [...] Cigarettes Smokeless tobacco (more content not included)... [facility] 03-08-2024 Note Patient here for [...] All other systems reviewed and are negative. [facility] 02-29-2024 Note Cardiology DC Cardio [...] No hemodynamic complications noted. Kristen Bai MD Ese Teacher - PGY5 [facility] I attest that I supervised this procedure. [...] neurological examination was intact. Ellen Taveras MD, [facility] 02-29-2024 Note H&P reviewed. The pa tient was examined and there are no changes to the H&P. The procedure was explained to the patient. The risks and benefits of the procedure were explained to the patient who showed understanding and with full capacity elected to proceed with the procedure. All questions were addressed and answered. Kristen Bai MD Ese Teacher - PGY5 [facility] 02-14-2024 Note Cardiovascular Medic [facility] SUBJECTIVE Chief Complaint Patient presents [...] gain. He admits to eating food at [employer] and drinking more pop that he [...] dilTIAZem CD (Cardizem (more content not included)... [facility] 02-14-2024 Note Patient here for [facility] ED. He was diagnosed with new [...] All other systems reviewed and are negative. [facility] 12-06-2023 History of Present illness [...] breaks. Tripped and fell 07/25/23, went to [facility] ER, had XR. Pain has been [...] TYL, ice, heat, creams, depo injection 05/31/23, [facility] ER with XR 07/25/23, icy hot,aspiration/GH [...] 09/01/2021 Amputation of toe of left foot ([facility]) 08/04/2023 2nd toe Diverticulosis H/O knee surgery 2021 Heart disease History of blood clots Hx of being hospitalized acute renal failure, elevated troponin, elevated dimmer, thrombocytopenia Hypertension ([facility]) Shingles Stomach problems Venous stasis ulcer [...] left shoulder dated July 25, 2023 from [facility]. There is narrowing of the acromioclavicular joint [...] Greg Sanchez D.O. documented in this encounter [facility] 12-05-2023 History of Present illness Narrative Subjective [...] Chronic obstructive pulmonary disease with acute exacerbation ([facility]) - azithromycin (Zithromax) 250 MG tablet; Take [...] Appointment As Scheduled. documented in this encounter [facility] 11-08-2023 History of Present illness Narrative Images [...] for your understanding. documented in this encounter [facility] 10-26-2023 Miscellaneous Notes Good morning. Received call from patient's daughter stating that Dr. oGnzalez was supposed to order a cast for patient's leg and send to [facility]. Patient's daughter stated that there were no order when she contact the [facility] and would like to know what is going on. Patient can be reached at, or [phone]. Thank you very much. Patients girl friend is scheduling patients testing that has not been scheduled for patient at check out. Patient is now scheduled for testing and a follow up documented in this encounter [facility] 10-26-2023 Telephone encounter Note Good morning. Received call from patient's daughter stating that Dr. Gonzalez was supposed to order a cast for patient's leg and send to [facility]. Patient's daughter stated that there were no order when she contact the [facility] and would like to know what is going on. Patient can be reached at, or [phone]. Thank you very much. [facility] 10-26-2023 Telephone encounter Note Patients girl friend is scheduling patients testing that has not been scheduled for patient at check out. Patient is now scheduled for testing and a follow up [facility] 11-09-2022 Hospital Discharge instructions [place] [...] his office on 11/15/21 at 1:00pm. Call [phone] with questions/concerns. No alcoholic beverages, no driving [...] by your surgeon documented in this encounter [facility] Phone: 11-09-2022 History of Present illness Narrative Dr. Babin aware that pt took eliquis last night. documented in this encounter [facility] Phone: 10-05-2022 Progress note Note Date/Time October 05, 2022 10:14[facility] ENTER [address] [place] [address] Wound Center Provider Note Signed Patient: Indio Collado MR#: [id number] : 1955 Acct:[id number] Age/Sex: 67 / M Copies to: MD Christopher Meyrs II, MD Seth Andrew Phillips DO Honey Hines APRN~ HPI Date of Visit Date of Visit: Date of Service: 10/05/2022 Time of Service: 10:04 Narrative HPI: 10/05/22 Indio is a 67 year old presenting to [facility] wound care program for an initial visit [...] start?: September 06, 2022 Mode of Arrival/ Customer Pricing Manager: Personal vehicle and Friend Assistive Device Used Today: Walker Lives with:: Alone Appetite Description: Within Normal Limits Who helps w/ dressing change?: Self Why Do You Need Help?: Can't Reach Ulcer and Limited mobility Smoking Status: Former smoker [facility] Medical History (Updated 10/05/22 @ 10:14 [...] Abdomen: Type: Traumatic Thickness: Full Bed Appearance: [place] and Yellow Percent of Wound Bed Granulated/Red: 5 Percent of Devitalized: 95 Length (cm): 0.5 Width (cm): 11.2 Depth (cm): 0.1 CM Sq: 5.600 Surrounding Tissue Appearance: [place] Surrounding Tissue Temp: Warm Drainage Amount: None [...] Leg: Type: Traumatic Thickness: Full Bed Appearance: [place] Percent of Wound Bed Granulated/Red: 100 Percent [...] signed by MD Efrain Aquino> 10/05/22 1200 [facility] Work Phone: [phone] 810-154410-06-2022 NotePROCEDURE: XR KNEE RT 3V COMPARISON: 03/20/2015 HISTORY: Pain of joint of knee FINDINGS: BONES:Total knee arthroplasty with long stem components. No acute fracture, dislocation or mechanical failure. Patellar resurfacing SOFT TISSUES:Negative. No visible soft tissue swelling. EFFUSION:Small suprapatellar joint effusion. Vascular calcifications. OTHER: Negative. IMPRESSION: Total knee arthroplasty with small joint effusion Electronically authenticated by: INDIO MCKNIGHT Date: 2022-07-29 18:30[id number] NotePROCEDURE: XR TIB_FIB LT 2V HISTORY: Open [...] authenticated by: THOMAS COLBERT Date: 2022-07-14 08:55[facility] [id number] NoteMR#: [id number] I [facility] Pt. Name: Indio Collado Admitted: [...] Castorena MD Date Trans: 03/09/2022 10:38 A/laisha DN_[id number] cc: Christopher Velazquez M.D. [address] [place] [id number]-2021 Note [id number]:127[facility] Evaluation note* Diagnosis Surgical site infection- Primary Post-op pain Other acute postoperative pain Wound of left ankle documented in this encounter [facility] Work Phone: evaluation note* Diagnosis Onset [...] both lower extremities documented in this encounter [facility]* Diagnosis Chronic obstructive pulmonary disease with acute exacerbation (CMS/HCC)- Primary documented in this encounter [facility] HealthcareEvaluation note* Diagnosis Left shoulder pain, unspecified chronicity- Primary Rotator cuff tear arthropathy of 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 documented in this encounter [facility] HealthcareEvaluation note* Diagnosis Lumbar spondylosis- Primary Lumbosacral spondylosis without myelopathy Closed compression fracture of body of L1 vertebra (HCC) (CMS/HCC) Need for vaccination Need for prophylactic vaccination and inoculation against unspecified single disease Retrolisthesis of vertebrae documented in this encounter [facility] HealthcareEvaluation note* Diagnosis 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 documented in this encounter [facility] HealthcareInstructionsNot on filedocumented in this encounterProAultman [facility] SystemInstructionsNot on filedocumented in this encounterProAultman [facility] SystemReason for referral (narrative)* Consultation (Routine) - Authorized Specialty Diagnoses / Procedures Referred By Contac t Referred To Contact Orthopaedic Surgery Diagnoses 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 Eva Sanchez DO [address] [facility] [address] [place] [address] Mac Willis MD [address] [facility] [place] [address] Referral ID Status Reason Start Date Expiration Date Visits Requested Visits Authorized [id number] Authorized Consult and Treat 07/10/2024 01/06/2025 1 1 [facility] Healthcare Summary Purpose Family History Relationship Condition Age at Onset Recorded Date/T oralia father Heart disease Unknown Not Specified Malignant neoplasm Unknown brother Malignant neoplasm Unknown sister Malignant neoplasm Unknown Advance Directives Documents on File Type Date Recorded Patient Aids Social Worker Expl anation ACP-Advance Directive 09/14/2022 9:49 AM [...] shoulder Procedures L Inj/Asp: L glenohumeral Eva Sanchez, [address] [facility] [address] [place] [address] Referral ID Status Reason Start Date Expiration Date V isits Requested Visits Authorized [id number] Pending Review 12/06/2023 06/03/2024 1 1 Specialty Diagnoses / Procedures Referred By Contac t Referred To Contact Diagnoses Lumbar spondylosis Closed compression fracture of body of L1 vertebra (HCC) (CMS/HCC) Retrolisthesis of vertebrae Procedures MR lumbar spine wo contrast Juhi Sullivan, PA [address] [facility] [address] [place] [address] Referral ID Status Reason Start Date Expiration Date V isits Requested Visits Authorized [id number] Pending Review 07/30/2024 01/26/2025 1 1 Additional Source Comments (unrecognized sect ion and content) No Status Records FoundNo Status Records FoundNo Status Records FoundNo Status Records FoundNo Status Records FoundNo Status Records FoundNo Status Records FoundNo Status Records FoundNo Status Records FoundNo Status Records FoundNo Status Records FoundNo Status Records FoundNo Status Records Found INFORMATION SOURCE (unrecogn ized section and content) DATE CREATED AUTHOR 02/25/2021 [place] [facility] DATE CREATED AUTHOR AUTHOR'S ORGANIZ ATION 03/13/2022 [facility] dical Specialist DATE CREATED AUTHOR AUTHOR'S ORGANIZ ATION 03/14/2022 [facility] DATE CREATED AUTHOR AUTHOR'S ORGANIZ ATION 08/02/2022 [facility] DATE CREATED AUTHOR AUTHOR'S ORGANIZ ATION 09/11/2022 [facility] DATE CREATED AUTHOR AUTHOR'S ORGANIZ ATION 09/11/2022 [facility] DATE CREATED AUTHOR AUTHOR'S ORGANIZ ATION 10/20/2022 [facility] DATE CREATED AUTHOR AUTHOR'S ORGANIZ ATION 01/12/2023 [facility] DATE CREATED AUTHOR AUTHOR'S ORGANIZ ATION 11/09/[address] [facility] DATE CREATED AUTHOR AUTHOR'S ORGANIZ ATION 01/29/[address] [facility] DATE CREATED AUTHOR AUTHOR'S ORGANIZ ATION 07/01/2024 [place] DATE CREATED AUTHOR AUTHOR'S ORGANIZ ATION 07/12/[address] [facility] Ambulatory [facility] DATE CREATED AUTHOR AUTHOR'S ORGANIZ ATION 08/01/2024 [facility] dical Specialists EPIC Reason for Visit (unrecogniz ed section and content) Specialty Diagnoses / Procedures Referred By Gladis t Referred To Contact Diagnoses Open wound of left ankle, initial encounter OPEN WOUND LEFT ANKLE Procedures [place] OFFICE/OUTPT VISIT,PROCEDURE ONLY [place] OPEN TREATMENT MEDIAL MALLEOLUS FRACTURE ANKLE SPLIT THICKNESS SKIN GRAFT (3080 TABLE WITH REVERSE DIVING BOARD, SUPINE, DERMATOMES FOR GRAFT HARVESTING, WOUND VAC, CAN USE LMA FOR ANESTHESIA IF NEEDED) Fredrick Babin, DO [address] [address] [facility] [address] [place] [address] Referral ID Status Reason Start Date Expiration Date Visits Re quested Visits Authorized [id number] 1 1 Reason Comments Follow-up 2 week follow up; Ve nous insufficiency of both lower extremities; for further evaluation of his leg swelling; patient is having pain in both legs at a10+ Reason Comments Follow-up Reason Onset Date Comments surgery 07/09/2024 Ordered Prescriptions (unrec ognized section and content) [...] 20 mL IV syringe 2,000 mg, IntraVENous, CREDIT CARD SPECIALIST TO O.R., 1 dose, On Tue11/09/22 at [...] approved by provider., PACU only lidocaine-EPINEPHrine 1 %-1:912922 injection (CANCELED) PRN, Starting on Tue11/09/22 at [...] Care Teams (unrecognized sec tion and content) Job Training Specialist Relationship Specialty Start Date End Date Christopher Velazquez MD [address] [place] [address] PCP - General 06/06/13 Team Status: Inactive Member Role Status Dates Christopher Velazquez II MD Primary Care Provider Active Honey Hines APRN Attending Provider Active Team Status: Inactive Member Role Status Dates Christopher Velazquez II Primary Care Provider Active Gordon Smith MD Admit Provider, Attending Provider A ctive Sirisha Savage , RN Other Provider Active Libertad Vazquez , STERLING Other Provider Active Taryn Sanders , STERL[place] Other Provider Active Marta Trevizo , STERLING Other Provider Active Carmenza Thomas , STERLING [...] MD Other Provider Active Mihaela Miller , RECREATION THERAPY TEACHER-C Other Provider Active Gen Reich MD Other Provider Active Gamal Bone MD Other Provider Active Imelda Riddle MD Other Provider Active Matthias Pablo MD Other Provider Active Giselle Jaquez , DO Other Provider Active Jak Vázquez MD Other Provider Active David Rossi , DO Other Provider Active Nando Roe , DO Other Provider Active Gina Fung APRN Other Provider Active Timothy Vaughan , DO Other Provider Active Jaime Trivedi MD Other Provider Active Katharine Caballero APRN Other Provider Active Debora Hunt , STERLING Other Provider Active Fany Ford LPN Other Provider Active Jenae Mcgee LPN Other Provider Active Fer Mayfield MD Other Provider Active R Ruttino , RECREATION THERAPY TEACHER-C Other Provider Active Chaz Hurd MD Other Provider Active Chirag Hatch MD Other Provider Active Team Status: Active Member Role Status Dates Christopher Velazquez II MD Primary Care Provider Active Job Training Specialist Relationship Specialty Start Date End Date Christopher Velazquez MD [address] [place] [address] [place] [address] PCP - General Internal Medicine 10/27/17 Job Training Specialist Relationship Specialty Start Date End Date Christopher Velazquez MD [address], [address] [place] [address] PCP - General Internal Medicine 10/27/17 Job Training Specialist Relationship Specialty Start Date End Date Christopher Velazquez MD [address] [place] [address] [place] [address] PCP - Devoted 10/24/22 Christopher Velazquez MD [address] [place] [address] [place] [address] PCP - General Internal Medicine 03/28/23 Job Training Specialist Relationship Specialty Start Date End Date Christopher Velazquez MD [address] [place] [address] [place] [address] PCP - Devoted 10/24/22 Christopher Velazquez MD [address] [place] [address] [place] [address] PCP - General Internal Medicine 03/28/23 Job Training Specialist Relationship Specialty Start Date End Date Christopher Velazquez MD [address] [place] [address] [place] [address] PCP - Devoted 10/24/22 Christopher Velazquez MD [address] [place] [address] [place] [address] PCP - General Internal Medicine 03/28/23 Job Training Specialist Relationship Specialty Start Date End Date Christopher Velazquez MD [address] [place] [address] [place] [address] PCP - Devoted 10/24/22 Christopher Velazquez MD [address] [place] [address] [place] [address] PCP - General Internal Medicine 03/28/23 Job Training Specialist Relationship Specialty Start Date End Date Christopher Velazquez MD [address] [facility] [address] [place] [address] PCP - Devoted 10/24/22 Christopher Velazquez MD [address] [facility] [address] [place] [address] PCP - General Internal Medicine 03/28/23 Job Training Specialist Relationship Specialty Start Date End Date Christopher Velazquez MD [address] [facility] [address] [place] [address] PCP - Devoted 10/24/22 Christopher Velazquez MD [address] [facility] [address] [place] [address] PCP - General Internal Medicine 03/28/23 FOR [...] BE BASED ON THE PRIMARY CLINICAL RECORDS. [employer] provides no warranty or guarantee of the accuracy or completeness of information in this document.
--- NOTE | 2024-08-22 08:26 | CT_ITS ---
The [address] [address] Patient Name: INDIO FUENTES MRN: [id number] date: 1955 Sex: M Assigned Patient Location: LAB Current Patient Location: LAB Accession/Order Number: [id number] Exam Date: 08/22/2024 09:15 Report Date: 08/22/2024 13:19 At the request of: THOMAS COLBERT Procedure: CT angio abd aorta runoff EXAM: CT angio abd aorta runoff HISTORY: I70.223 - Atherosclerosis of [place] arteries of extremiti... COMPARISON: CT abdomen pelvis 08/31/2021 TECHNIQUE: Contrast enhanced CT scans obtained of the abdomen pelvis and lower extremities. CTA is performed. FINDINGS: CT abdomen and pelvis: Postsurgical changes are seen at the gastroesophageal junction. Gallbladder is absent. No renal hydronephrosis is present. Spleen is unremarkable. No peripancreatic fluid is present. No fluid is noted within the abdomen or pelvis. There is a small fat-containing umbilical hernia. Colonic diverticula are seen. There is a chronic appearing compression fracture of the L1 vertebral body. CT lower extremities: Postsurgical changes are seen consistent with knee arthroplasty. CTA: Less than 50% stenosis seen of the celiac and superior mesenteric artery. There is approximately 50% bilateral renal artery stenosis. No abdominal aortic aneurysm seen. There is approximately 50% inferior mesenteric artery stenosis. There is an accessory lower pole right renal artery. Right lower extremity: There is a high-grade right common iliac artery stenosis. There is a high-grade stenosis of the origin of the superficial femoral artery. The popliteal artery cannot be fully evaluated due to artifact from the knee prosthesis. Tibial vessel plaque is noted. Three-vessel runoff is seen. Left lower extremity: High-grade internal iliac stenosis is present. Plaque is seen within the iliac arteries. The common femoral and profunda femoris are widely patent. High-grade stenosis seen of the distal superficial femoral artery at the adductor canal. The popliteal artery cannot be evaluated due to artifact from prosthesis. Three-vessel runoff is seen. CT/CT angio abd aorta runoff IMPRESSION: 1. High-grade right common iliac artery stenosis and high-grade stenosis of the origin of the right superficial femoral artery. 2. High-grade stenosis seen of the distal left superficial femoral artery at the adductor canal. 3. Greater than 50% bilateral renal artery stenosis. 4. At least 50% stenosis of the celiac, superior mesenteric artery, and inferior mesenteric artery origins. 5. Fat-containing umbilical hernia. 6. See above for details. Electronically authenticated by: Morelia CASTLE Date: 08/22/2024 13:19
[2024-08-22 09:04] LABS: Estimated GFR (African America >60 (>=60 mL/min/1.73m^2); Estimated GFR (Non-African Ame >60 (>=60 mL/min/1.73m^2)
== END 2024-08-22 08:07 | disposition home or self-care (01) ==
LOC: LAB 08:07
PROVIDERS: PCP Radiology Diagnostic Radiology; Visit Provider Radiology Diagnostic Radiology
DX: I70.223 Atherosclerosis of native arteries of extremities with rest pain, bilateral legs (principal)
CPT/HCPCS: 36415; 75635; 82565; Q9967

== ENCOUNTER 2024-08-30 09:30 | Outpatient (OUT) | payer OTHER, SELFPAY ==
--- NOTE | 2024-08-22 08:28 | W.VEIN ---
Discharge Plan Discharge Disposition: Home, Self-Care Outpatient Diagnostics: Creatinine (Routine) Timeframe: 1 Month Facility: [facility] - Location: Laboratory Ordered By: Alex Villegas Print Language: Ken[place]
--- NOTE | 2024-08-28 15:13 | V.VEINS.HP ---
Vital Signs 08/30/24 10:19 BP 136/74 BP Location Left Brachial BP Position Sitting BP Cuff Size Adult BP Source Manual Cuff Respiration 16 Pulse 68 Pulse Source Monitor Pulse Oximetry (%) 96 Oxygen Delivery Method Room Air Comment The patient's blood pressure is elevated. Varicose Veins Patient in this day for EVLT of right GSV Alex Alvarado MD personally performed the services described in this documentation, as scribed by Arsh Craft RN in my presence and it is both accurate and complete. Arsh Alvarado RN, am scribing for, and in the presence of, Dr. Alex Villegas and in the presence of the patient. thigh: bilateral, knee: bilateral, calf: bilateral, ankle: bilateral and vasques: bilateral aching, cramping and sharp 10 7 years Worsened in recent months: Yes standing and sitting analgesics, elevating extremities and compression stockings Reports heaviness, limb pain, edema, leg edema and other History of lower extremity trauma: Yes Superficial thrombophlebitis: Yes Family history of varicose veins: yes Has patient had previous lower extremity venous surgery: No Patient has previously received the following treatment(s) for lower extremity varicose veins: Reports none Does patient have a history of : not applicable Does patient intend to have future pregnancies: not applicable Has patient had lower extremity venous scan with relux testing: Yes Support hose used: Yes Problems walking or doing physical activity: Yes How does it affect you: Hurts the worst at night and in the morning Do you walk much: Yes Do you stand much: Yes Review of Systems ROS Narrative Alex Alvarado MD personally performed the services described in this documentation, as scribed by Arsh Craft RN in my presence and it is both accurate and complete. Arsh Alvarado RN, am scribing for, and in the presence of, Dr. Alex Villegas and in the presence of the patient. Status of ROS 10 or more systems reviewed and unremarkable except as noted in history and below Cardiovascular Reports: edema and swelling of feet/ankles Musculoskeletal Reports: extremity pain, extremity swelling, joint pain, joint swelling and muscle cramps Integumentary/Breast Reports: skin pain, skin tenderness, skin swelling and sores [facility] History (Updated 08/15/24 @ 10:18 by Mirna Richmond, RN) Cellulitis ?L03.90 - Cellulitis, unspecified (ICD-10) FH: cholecystectomy ?Z83.79 - Family history of other diseases of the digestive system (ICD-10) Heart failure ?I50.9 - Heart failure, unspecified (ICD-10) Hypertension ?I10 - Essential (primary) hypertension (ICD-10) Diverticula of intestine ?K57.30 - Diverticulosis of large intestine without perforation or abscess without bleeding (ICD-10) Diabetes ?E11.9 - Type 2 diabetes mellitus without complications (ICD-10) CAD (coronary artery disease) ?I25.10 - Atherosclerotic heart disease of [place] coronary artery without angina pectoris (ICD-10) Atrial fibrillation ?I48.91 - Unspecified atrial fibrillation (ICD-10) Chronic GERD ?K21.9 - Gastro-esophageal reflux disease without esophagitis (ICD-10) Back pain ?M54.9 - Dorsalgia, unspecified (ICD-10) Irregular heart beat ?I49.9 - Cardiac arrhythmia, unspecified (ICD-10) Pain due to varicose veins of both lower extremities ?I83.813 - Varicose veins of bilateral lower extremities with pain (ICD-10) Deep vein blood clot of right lower extremity ?I82.401 - Acute embolism and thrombosis of unspecified deep veins of right lower extremity (ICD-10) Deep vein blood clot of left lower extremity ?I82.402 - Acute embolism and thrombosis of unspecified deep veins of left lower extremity (ICD-10) Surgical History (Updated 08/30/24 @ 10:22 by Arsh Craft) Status post laser ablation of incompetent vein ?Z98.890 - Other specified postprocedural states (ICD-10) History of tonsillectomy ?Z90.89 - Acquired absence of other organs (ICD-10) H/O heart artery stent ?Z95.5 - Presence of coronary angioplasty implant and graft (ICD-10) History of knee replacement procedure of right knee ?Z96.651 - Presence of right artificial knee joint (ICD-10) Gastric bypass status for obesity ?Z98.84 - Bariatric surgery status (ICD-10) Family History (Updated 08/15/24 @ 09:24 by Mirna Richmond RN) Father Family history of stroke Family history of myocardial infarction Family history of hypertension Father Family history of diabetes mellitus Mother Family history of diabetes mellitus Varicose veins of bilateral lower extremities with pain Brother Family history of cancer Sister Family history of cancer Social History (Updated 08/15/24 @ 09:25 by Mirna Richmond RN) Within the past year, how many standard drinks containing alcohol did you have on a typical day: 1 or 2 Within the past year, how often did you have six or more drinks on one occasion: never Total score: 0 Score interpretation: A score less than 4 is consistent with normal alcohol consumption. Smoking status: Former smoker Nicotine containing products detail: quit 15 years ago. Smoked 1 PPD for 35 years. Non-prescribed substance use: denies use Meds Home Medications and Allergies Home Medications ?Medication ?Instructions ?Recorded ?Confirmed ?Type amiodarone 100 mg tablet 100 mg PO DAILY 08/15/24 08/15/24 History apixaban 5 mg tablet (Eliquis) 5 mg PO BID 08/15/24 08/15/24 History atorvastatin 10 mg tablet 10 mg PO DAILY 08/15/24 08/15/24 History diosmin complex no.1 630 mg tablet 1 tab PO DAILY 08/15/24 08/15/24 History (Vasculera) fluoxetine 20 mg capsule 20 mg PO DAILY 08/15/24 08/15/24 History furosemide 40 mg tablet (Lasix) 40 mg PO DAILY 08/15/24 08/15/24 History gabapentin 300 mg capsule 900 mg PO BID 08/15/24 08/15/24 History metoprolol succinate 25 mg 25 mg PO DAILY 08/15/24 08/15/24 History tablet,extended release 24 hr omeprazole 40 mg capsule,delayed 40 mg PO DAILY 08/15/24 08/15/24 History release potassium chloride 20 mEq oral 20 meq PO DAILY 08/15/24 08/15/24 History packet (Klor-Con) sacubitril 24 mg-valsartan 26 mg 1 tab PO BID 08/15/24 08/15/24 History tablet (Entresto) tizanidine 4 mg capsule (Zanaflex) 4 mg PO TID PRN muscle spasticity 08/15/24 08/15/24 History zolpidem 10 mg tablet (Ambien) 08/15/24 History Allergies Allergy/AdvReac Type Severity Reaction Status Date / Time doxycycline Allergy Unknown Verified 08/15/24 10:16 Penicillins AdvReac Severe Vomiting Verified 08/15/24 09:26 morphine AdvReac Mild Gastrointestinal Verified 08/15/24 10:16 Upset Exam Narrative Exam Narrative: Alex Alvarado MD personally performed the services described in this documentation, as scribed by Arsh Craft RN in my presence and it is both accurate and complete. Arsh Alvarado RN, am scribing for, and in the presence of, Dr. Alex Villegas and in the presence of the patient. Constitutional Documenting provider has reviewed patient's vital signs: yes Common normals: oriented x3 Nutritional appearance: overweight Lymph Lymphatic: no lymphedema noted Cardio Peripheral pulses: posterior tibial pulses present and dorsalis pedis pulses present Extremity General: calf tenderness, edema and other findings Right lower extremity: lower leg Right lower leg: inspection and palpation Left lower extremity: lower leg Left lower leg: inspection and palpation Other: Heeled right proximal anterior lower leg wound. Left heeled mid-medial lower leg wound. Neuro Common normals: oriented x3 Assessment and Plan Assessment and Plan (1) Pain due to varicose veins of both lower extremities: Plan f/u evaluation with physician along with right leg limited u/s Alex Alvarado MD personally performed the services described in this documentation, as scribed by Arsh Craft RN in my presence and it is both accurate and complete. Arsh Alvarado RN, am scribing for, and in the presence of, Dr. Alex Villegas and in the presence of the patient. Procedures Procedure Instructions Procedures Plan of care: Risks and benefits of the procedure were discussed at length and informed written consent was obtained.? Time-out completed for verification of correct patient, procedure and site.? Staff present during time-out: Arsh Craft RN,? Alex Villegas MD, [facility],R[facility]. Time Out Time__1021 Patient prepped and procedure performed in usual sterile fashion. Risk of injury related to use of Diode laser and/or laser devices__CR___ ? Serial number of laser used :? [id number] Control panel self test performed, electrical cords in good condition, floor is dry, basin of water available, fire extinguisher in close proximity_CR__ Polycarbonate goggles available and Laser warning signs outside of doors___CR__ Eye protection provided to patient and staff in room_CR___ Use of laser retardant drapes and dull blackened instruments as directed__CR___ Use of nonflammable prep solutions and use of saline soaked sponges to protect tissues as indicated _CR___ Length _67 cm Laser operated by _Dr. Villegas Physician verbal confirmation laser locked in place__CR__ Laser start time (date and time) __08/30/2024@__1040 Laser stop time(date and time) __08/30/2024@__1051 Willams _8.0___ Average laser use __3998 Joules Average laser use___500 seconds Pulse continuous ___CR_? Pulse intermittent ___ Amount of Tumescent used __300cc____ Evaluated patient for signs and symptoms of electrical injury __CR___ ? Skin clear at insertion site __CR___ Patient tolerated procedure well.? Right leg Coban dressing applied to access site.? Applied Right thigh high leg compression stocking. Will return on 08/05/2024 for right leg limited venous ultrasound and exam. IAlex MD personally performed the services described in this documentation, as scribed by Arsh Craft RN in my presence and it is both accurate and complete. I, Arsh Craft RN, am scribing for, and in the presence of, Dr. Alex Villegas and in the presence of the patient.
--- NOTE | 2024-08-28 15:19 | P.DS_ITS ---
Discharge Plan Discharge Disposition: Home, Self-Care Outpatient Diagnostics: Creatinine (Routine) Timeframe: 1 Month Facility: [facility] - Location: Laboratory Ordered By: Alex Villegas VC Facility EST LMTD (Routine) Timeframe: 2 Weeks Facility: [facility] - Location: Vein Center Ordered By: Alex Villegas VC EXT Venous RT LMTD (Routine) Timeframe: 2 Weeks Facility: [facility] - Location: Vein Center Ordered By: Alex Villegas Follow Up Appointments: 09/06/2024 Plan of Treatment: f/u evaluation with physician along with right leg limited u/s Patient Instructions: Endovenous Ablation (DC) Print Language: Armenian Discharge Date/Time: 08/30/24 10:19
--- NOTE | 2024-08-30 09:38 | VEIN_ITS ---
[address] [address] Patient Name: INDIO FUENTES MRN: [id number] date: 1955 Sex: M Assigned Patient Location: Current Patient Location: Accession/Order Number: [id number] Exam Date: 08/30/2024 10:00 Report Date: 08/30/2024 11:26 At the request of: THOMAS COLBERT Procedure: VC Endovenous Ablation 1VeinRT EXAMINATION: VC Endovenous Ablation 1VeinRT HISTORY: I83.813 - Varicose veins of bilateral lower extremities w... The risks and benefits of the procedure had been previously discussed, and were rediscussed at length. Informed written consent was obtained. Arsh Craft RN and Tricia Agarwal RDMS, RVT assisted. Time out procedure was performed. The right lower extremity was prepared and draped in the usual sterile fashion to allow knee flexion in the sterile field. Duplex ultrasound probe was draped in a sterile cover, sterile transmission gel was used. Venous mapping was performed with the areas of dilation and large tributaries marked. The total length was 67 cm from the entry 3 cm above the ankle to 3 cm below the Saphenofemoral junction. The diameter of the right great saphenous vein ranged from 13.2 mm. A 30 gauge needle and 1% buffered lidocaine was used to anesthetize the entry site. A 4 mm incision was made with a scalpel and the saphenous vein was entered percutaneously under direct ultrasound guidance with a micropuncture set, a single stick was successful in gaining access. A micro-guide wire was inserted and the needle removed. A micro-set including a dilator was inserted over the microwire and the needle and dilator were removed. A guide wire was inserted through the micro-set and guided through the saphenous vein to the saphenofemoral junction. The dilator was removed and an introducer sheath was inserted over the wire until the end of the sheath entered the saphenofemoral junction. The dilator and wire were removed and the 600 micron fiber was introduced and placed and positioned so that it extended beyond the sheath and was 3 cm distal to the saphenofemoral or saphenopopliteal junction. Final position of the fiber was determined by ultrasound guidance and duplex imaging. Micent anesthetic was delivered by ultrasound guidance. 300 cc of fluid was delivered along the entire course of the saphenous vein. The solution consisted of 1000 cc of normal saline with 40 mL of 1% lidocaine and 20 mL of sodium bicarbonate. A final positioning check was made. The energy source was turned on by means of the foot pedal and the fiber and sheath were withdrawn. The total number of Joules delivered was 3998. The laser was active for 500 seconds under continuous pulse, average laser use of 8 J. Laser start time: 10:40 AM Laser stop time: 10:51 AM Date: 08/30/2024. A duplex ultrasound revealed compressibility and flow at the saphenofemoral junction immediately after the procedure. Hemostasis at the access site was achieved. The skin incision of the saphenous vein was closed with a 4 x 4. A compression stocking was applied. Postop instructions were given. A follow up appointment was recommended and scheduled. The patient tolerated the procedure well. Electronically authenticated by: THOMAS COLBERT Date: 08/30/2024 11:26
[2024-08-30] MEDS: LIDOCAINE HCL 1% 100 MG/10 ML MDV INJ (09:50)
[2024-08-30] MEDS: 0.9 % SODIUM CHLORIDE 500 ML, LIDOCAINE HCL 20 ML, SODIUM BICARBONATE 10 MEQ INJ (09:51)
[2024-08-30 10:19] VITALS: BP 136/74; PULSE 68; O2SAT 96
== END 2024-08-30 10:19 | disposition home or self-care (01) ==
LOC: VC 09:31
PROVIDERS: PCP Radiology Diagnostic Radiology; Visit Provider Radiology Diagnostic Radiology
DX: I83.813 Varicose veins of bilateral lower extremities with pain (principal)
CPT/HCPCS: 36478

== ENCOUNTER 2024-09-05 08:51 | Outpatient (OUT) | payer OTHER, SELFPAY ==
[2024-09-05 08:44] VITALS: BMI 25.8
--- NOTE | 2024-09-05 08:44 | V.VEINS.HP ---
Vital Signs 09/05/24 08:44 Height 5 ft 9 in Weight 79.3 kg BMI 25.8 Varicose Veins Patient in today for follow up ultrasound of right lower extremity following EVLT of right GSV completed on 08/30/24. Delon Alvarado MD personally performed the services described in this documentation, as scribed by Negin Cline RDMS in my presence and it is both accurate and complete. Negin Alvarado RDMS, am scribing for, and in the presence of, Dr. Delon Kirk and in the presence of the patient. thigh: bilateral, knee: bilateral, calf: bilateral, ankle: bilateral and vasques: bilateral aching, cramping and sharp 10 7 years Worsened in recent months: Yes standing and sitting analgesics, elevating extremities and compression stockings Reports heaviness, limb pain, edema, leg edema and other History of lower extremity trauma: Yes Superficial thrombophlebitis: Yes Family history of varicose veins: yes Has patient had previous lower extremity venous surgery: No Patient has previously received the following treatment(s) for lower extremity varicose veins: Reports none Does patient have a history of : not applicable Does patient intend to have future pregnancies: not applicable Has patient had lower extremity venous scan with relux testing: Yes Support hose used: Yes Problems walking or doing physical activity: Yes How does it affect you: Hurts the worst at night and in the morning Do you walk much: Yes Do you stand much: Yes Review of Systems ROS Narrative Delon Alvarado MD personally performed the services described in this documentation, as scribed by Negin Cline RDMS in my presence and it is both accurate and complete. Negin Alvarado RDMS, am scribing for, and in the presence of, Dr. Delon Kirk and in the presence of the patient. Status of ROS 10 or more systems reviewed and unremarkable except as noted in history and below Cardiovascular Reports: edema and swelling of feet/ankles Musculoskeletal Reports: extremity pain, extremity swelling, joint pain, joint swelling and muscle cramps Integumentary/Breast Reports: skin pain, skin tenderness, skin swelling and sores PFSH PFS Medical History (Updated 09/05/24 @ 08:45 by Negin Cline) Phlebitis and thrombophlebitis of superficial vessels of right lower extremity ?I80.01 - Phlebitis and thrombophlebitis of superficial vessels of right lower extremity (ICD-10) Cellulitis ?L03.90 - Cellulitis, unspecified (ICD-10) FH: cholecystectomy ?Z83.79 - Family history of other diseases of the digestive system (ICD-10) Heart failure ?I50.9 - Heart failure, unspecified (ICD-10) Hypertension ?I10 - Essential (primary) hypertension (ICD-10) Diverticula of intestine ?K57.30 - Diverticulosis of large intestine without perforation or abscess without bleeding (ICD-10) Diabetes ?E11.9 - Type 2 diabetes mellitus without complications (ICD-10) CAD (coronary artery disease) ?I25.10 - Atherosclerotic heart disease of [place] coronary artery without angina pectoris (ICD-10) Atrial fibrillation ?I48.91 - Unspecified atrial fibrillation (ICD-10) Chronic GERD ?K21.9 - Gastro-esophageal reflux disease without esophagitis (ICD-10) Back pain ?M54.9 - Dorsalgia, unspecified (ICD-10) Irregular heart beat ?I49.9 - Cardiac arrhythmia, unspecified (ICD-10) Pain due to varicose veins of both lower extremities ?I83.813 - Varicose veins of bilateral lower extremities with pain (ICD-10) Deep vein blood clot of right lower extremity ?I82.401 - Acute embolism and thrombosis of unspecified deep veins of right lower extremity (ICD-10) Deep vein blood clot of left lower extremity ?I82.402 - Acute embolism and thrombosis of unspecified deep veins of left lower extremity (ICD-10) Surgical History (Updated 08/30/24 @ 10:22 by Arsh Craft) Status post laser ablation of incompetent vein ?Z98.890 - Other specified postprocedural states (ICD-10) History of tonsillectomy ?Z90.89 - Acquired absence of other organs (ICD-10) H/O heart artery stent ?Z95.5 - Presence of coronary angioplasty implant and graft (ICD-10) History of knee replacement procedure of right knee ?Z96.651 - Presence of right artificial knee joint (ICD-10) Gastric bypass status for obesity ?Z98.84 - Bariatric surgery status (ICD-10) Family History (Updated 08/15/24 @ 09:24 by Mirna Richmond RN) Father Family history of stroke Family history of myocardial infarction Family history of hypertension Father Family history of diabetes mellitus Mother Family history of diabetes mellitus Varicose veins of bilateral lower extremities with pain Brother Family history of cancer Sister Family history of cancer Social History (Updated 08/15/24 @ 09:25 by Mirna Richmond RN) Within the past year, how many standard drinks containing alcohol did you have on a typical day: 1 or 2 Within the past year, how often did you have six or more drinks on one occasion: never Total score: 0 Score interpretation: A score less than 4 is consistent with normal alcohol consumption. Smoking status: Former smoker Nicotine containing products detail: quit 15 years ago. Smoked 1 PPD for 35 years. Non-prescribed substance use: denies use Meds Home Medications and Allergies Home Medications ?Medication ?Instructions ?Recorded ?Confirmed ?Type amiodarone 100 mg tablet 100 mg PO DAILY 08/15/24 08/15/24 History apixaban 5 mg tablet (Eliquis) 5 mg PO BID 08/15/24 08/15/24 History atorvastatin 10 mg tablet 10 mg PO DAILY 08/15/24 08/15/24 History diosmin complex no.1 630 mg tablet 1 tab PO DAILY 08/15/24 08/15/24 History (Vasculera) fluoxetine 20 mg capsule 20 mg PO DAILY 08/15/24 08/15/24 History furosemide 40 mg tablet (Lasix) 40 mg PO DAILY 08/15/24 08/15/24 History gabapentin 300 mg capsule 900 mg PO BID 08/15/24 08/15/24 History metoprolol succinate 25 mg 25 mg PO DAILY 08/15/24 08/15/24 History tablet,extended release 24 hr omeprazole 40 mg capsule,delayed 40 mg PO DAILY 08/15/24 08/15/24 History release potassium chloride 20 mEq oral 20 meq PO DAILY 08/15/24 08/15/24 History packet (Klor-Con) sacubitril 24 mg-valsartan 26 mg 1 tab PO BID 08/15/24 08/15/24 History tablet (Entresto) tizanidine 4 mg capsule (Zanaflex) 4 mg PO TID PRN muscle spasticity 08/15/24 08/15/24 History zolpidem 10 mg tablet (Ambien) 08/15/24 History Allergies Allergy/AdvReac Type Severity Reaction Status Date / Time doxycycline Allergy Unknown Verified 08/15/24 10:16 Penicillins AdvReac Severe Vomiting Verified 08/15/24 09:26 morphine AdvReac Mild Gastrointestinal Verified 08/15/24 10:16 Upset Exam Narrative Exam Narrative: Tenderness to medial right thigh/knee noted. Delon Alvarado MD personally performed the services described in this documentation, as scribed by Negin Cline RDMS in my presence and it is both accurate and complete. Negin Alvarado RDMS, am scribing for, and in the presence of, Dr. Delon Kirk and in the presence of the patient. Constitutional Documenting provider has reviewed patient's vital signs: yes Common normals: oriented x3 Nutritional appearance: overweight Lymph Lymphatic: no lymphedema noted Cardio Peripheral pulses: posterior tibial pulses present and dorsalis pedis pulses present Extremity General: calf tenderness, edema and other findings Right lower extremity: lower leg Right lower leg: inspection and palpation Left lower extremity: lower leg Left lower leg: inspection and palpation Other: Heeled right proximal anterior lower leg wound. Left heeled mid-medial lower leg wound. Neuro Common normals: oriented x3 Results Imaging Venous US: Radiologist's impression: Heat induced thrombus in right GSV 1.0 cm from SFJ and extends to distal lower leg. Delon Alvarado MD personally performed the services described in this documentation, as scribed by Negin Cline RDMS in my presence and it is both accurate and complete. Negin Alvarado RDMS, am scribing for, and in the presence of, Dr. Delon Kirk and in the presence of the patient. Assessment and Plan Assessment and Plan (1) Phlebitis and thrombophlebitis of superficial vessels of right lower extremity: Plan Plan is for patient to return for EVLT of left GSV on 09/13/24. Referral to vascular Dr. Chaz Hurd. Delon Alvarado MD personally performed the services described in this documentation, as scribed by Negin Cline RDMS in my presence and it is both accurate and complete. Negin Alvarado RDMS am scribing for, and in the presence of, Dr. Delon Kirk and in the presence of the patient.
--- NOTE | 2024-09-05 08:52 | VEIN_ITS ---
Patient Name: DELON FUENTES MR#: [id number] : 1955 Exam Date: 09/05/2024 Ordering Doctor: DR THOMAS COLBERT M.D. RADIOLOGY REPORT PROCEDURE: FACILITY EST LMTD [facility]IN [facility] - OFFICE VISIT FOLLOW UP COMPARISON: None. PROGRESS NOTES: The patient reports no significant problems following intravenous laser ablation of the right great saphenous vein. The patient had no problems following the procedure. The patient did not require oral analgesics. The patient did wear his compression stocking and exercised. Physical exam demonstrates incision to be sealed. Thrombosed left great saphenous vein can be partially palpated. No erythema or warmth to suggest cellulitis of thrombus but is period no active ulceration. Review of the ultrasound performed the same day demonstrates occlusive thrombus extending throughout the treated left great saphenous vein with heat induced thrombus 1 cm from the saphenofemoral junction. No deep vein thrombus I discussed the results of his CT angiogram with demonstrating multiple areas of flow significant stenosis. The patient was referred to Dr. Hurd, vascular surgery for further evaluation. The patient expressed a desire to proceed with treatment of incompetent left great saphenous vein. VEIN/ Facility EST LMTD IMPRESSION: 1. Successful ablation of the right great saphenous vein 2. Persistent incompetent left great saphenous vein 3. Flow significant stenosis on CT angiogram with lower extremity runoff. PLAN: 1. Referral to vascular surgery for arterial stenosis 2. Intravenous laser ablation left great saphenous vein Nurse notes, history and physical were reviewed and confirmed, see attached forms. The nurse was present throughout the physical exam and consultation Dictated by: Delon Kirk MD on 09/05/2024 at 09:21 Approved by: Delon Kirk MD on 09/05/2024 at 09:28
--- NOTE | 2024-09-05 08:52 | VEIN_ITS ---
Patient Name: DELON FUENTES MR#: [id number] : 1955 Exam Date: 09/05/2024 Ordering Doctor: DR THOMAS COLBERT M.D. RADIOLOGY REPORT PROCEDURE: VC EXT VENOUS RT LMTD COMPARISON: None. INDICATIONS: I80.01 - Phlebitis and thrombophlebitis of superficial veins right leg TECHNIQUE: Lower extremity cárdenas scale and Duplex Doppler evaluation of the deep venous system from the inguinal ligament through the calf veins. FINDINGS: REGION: Right lower extremity. THROMBI: Negative for DVT. Heat induced thrombus in right GSV 1.0 cm from SFJ and extends to distal lower leg. 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
--- OUTSIDE RECORDS SUMMARY | 2024-09-05 09:12 | XMS_ITS | CCD ---
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 [Cellulitis, unspecified] Onset: 06-08-2013 Episodic Spondylosis; intervertebral disc disorders; other back problems (10 sources) Low back pain; Translations: [Lumbago] Onset: 11-11-2017 04-17-2023 Episodic Unclassified (1 source) CONTACT W/AND (SUSP) EXPOS COVID-19; Translations: [CONTACT W/AND (SUSP) EXPOS COVID-19] Onset: 10-22-2021 Varicose veins of lower extremity (20 sources) 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 He is low to intermediate risk for cardiovascular complication. May hold Eliquis 2 days prior and resume as soon as okay with surgeon. 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 He is low to intermediate risk for cardiovascular complication. May hold Eliquis 2 days prior and resume as soon as okay with surgeon. [facility] MR SHOULDER LEFT WO IV CONTR [...] T shoulder w/o. To be done at [facility] 37on 06-06-2024 37 *Okay to stop Eliqui s 2 days prior to cataract surgery *[facility] will call you to schedule a heart ultrasound in July. Normal [facility] Office Visiton 06-06-2024 Follow-up visit [id number] Jonathan Collado 1955 M Date Provider Department Center 06/06/2024 Elliott-FAB CORTEZ [facility] Family History Problem Relation Age of Onset Coronary artery disease Mother Coronary artery disease Father Family Status - Relation Status Age at Mother Father Level of Service:89684 [place] OFFICE/OUTPATIENT ESTABLISHED MOD MDM 30 MIN Reason for Visit and Comments: Atrial Fibrillation [80] Congestive Heart Failure [127] Normal [facility] XR LUMBAR SPINE 2-3 VIEWSon 05-18-2024 XR [...] to your next appt. Normal [facility] Office Visiton 05-09-2024 Follow-up visit [id number] ColladoJonathan 1955 M Date Provider Department Center 05/09/2024 Elliott-FAB CORTEZ [facility] Family History Problem Relation Age of Onset Coronary artery disease Mother Coronary artery disease Father Family Status - Relation Status Age at Mother Father Level of Service:82911 RI OFFICE/OUTPATIENT ESTABLISHED MOD MDM 30 MIN Reason for Visit and Comments: Follow-up [865588] - Follow up cardioversion Normal [facility] HPon 04-30-2024 [facility] Electrophysiology Consult Note [place] Cardiology - [facility] Reason for visit: atrial fibrillation [...] on file Intimate Partner Violence: Unknown (12/15/2023) [place] Safety & Environment Fear of Current or [...] Insight: good judgement (more content not included)... Normal [facility] RIANNOTJavier 04-30-2024 BART RN educated pt on d/ c instructions. RN encouraged pt to voice any questions or concerns. Pt verbalizes no questions or concerns at this time. Pt was wheeled off of unit with all of belongings. Normal [facility] Office Visiton 04-10-2024 Follow-up visit [id number] Jonathan Collado 1955 M Date Provider Department Center 04/10/2024 Pratibha-DAVE PRESSLEY NATA [facility] Family History Problem Relation Age of Onset Coronary artery disease Mother Coronary artery disease Father Family Status - Relation Status Age at Mother Father Level of Service:35504 RI OFFICE/OUTPATIENT NEW MODERATE MDM 45 MINUTES Normal [facility] ANESon 03-29-2024 ANES ----- ----- Attestation signed by Gama Duncan MD at 03/29/2024 8:24 AM Gama Duncan MD, MPH, [facility], [facility], [facility] Interventional Cardiology Pager Email: [email or web address] Intimates u ----- Patient: Indio Collado Procedure Information Date/Time: 03/29/24 1230 Procedure: Coronary angiography Location: [facility] [place] [facility] (Cath) Providers: Gama Duncan MD [...] attending. Additional Equipment Requests Normal [facility] HPon 03-29-2024 HP ----- ----- Attestation [...] documentation from me. Gama Duncan MD, MPH, FACC, [facility], [facility] Interventional Cardiology Pager Email: [email or web address] ----- H&P reviewed. The patient was [...] episodes recently. He would like to proceed. [facility] NURSNOTEon 03-29-2024 NURSNOTE RN educated pt on d/ c instructions. RN encouraged pt to voice any questions or concerns. Pt verbalizes no questions or concerns at this time. Pt was wheeled off of unit with all of belongings. [facility] 37on 03-08-2024 37 *Stop diltiazem *Start -metoprolol succinate 25mg daily -Entresto 24/26mg BID -Farxiga 10mg daily *Reduce lasix to 40mg daily *Follow-up lab work in 2 weeks *[facility] will call you to schedule a cardiac cath *Follow-up with the electrician telephone of the heart after your cath [facility] HPon 03-08-2024 HP Cardiovascular Medic [facility] SUBJECTIVE Chief Complaint Patient presents [...] work at 3 jobs. He works at [employer] and eats their food when he drinks. [...] gain. He admits to eating food at [employer] and drinking more pop that he typically [...] Cigarettes Smokeless tobacco (more content not included)... [facility] Office Visiton 03-08-2024 Follow-up visit [id number] Jonathan Collado alan Wallace 1955 M Date Provider Department Center 03/08/2024 FAB PATTERSON NATA [facility]illas Family History Problem Relation Age of Onset Coronary artery disease Mother Coronary artery disease Father Family Status - Relation Status Age at Mother Father Level of Service:01075 RI OFFICE/OUTPATIENT ESTABLISHED HIGH MDM 40 MIN Reason for Visit and Comments: Atrial Fibrillation [80] Congestive Heart Failure [127] Hypertension [897857] [facility] Mony 02-29-2024 JULIANA ----- ----- Attestation signed by Ellen Taveras MD at 03/15/2024 12:59 PM I personally saw and examined the patient on the same date of service as resident/fellow Dr Bai. I agree with the documentation, except for any edits/updates below. Ellen Taveras MD ----- Patient: Indio Collado Procedure Information Date/Time: 02/29/24 1030 Procedure: Cardioversion Location: [facility] HOLDING ROOM / [facility] (Cath) Providers: Scar Willis MD Clinical information reviewed: Allergies Physical Exam Airway Mallampati: III TM distance: >3 FB Neck ROM: full Cardiovascular Rhythm: regular Rate: normal Dental Pulmonary Abdominal Anesthesia Plan ASA 3 Anesthetic plan and risks discussed with patient. Use of blood products discussed with patient who. Plan discussed with attending. Additional Equipment Requests Normal [facility] NURSNOTEon 02-29-2024 NURSNOTE Bedside swallow stud y completed and passed. Normal [facility] NURSNOTE RN educated pt on d/ c instructions. RN encouraged pt to voice any questions or concerns. Pt verbalizes no questions or concerns at this time. Pt was wheeled off of unit with all of belongings. Normal [facility] POTASSIUMon 02-29-2024 Potassium [Moles/Vol] 3.7 mmol/L Normal 3.5-5.1 [facility] Comment on above: Performed By: #### L [id number] ####[facility] ([facility])[address] [place] [address] 36on 02-15-2024 36 Please let him know I also ordered for potassium supplements as his potassium level was low when he was recently in the hospital and the lasix can lower this even more so the supplements are to help this. Please also have him get a BMP either the day before or morning of his appt next week. Thanks! Normal [facility] Telephoneon 02-15-2024 Telephone [id number] Jonathan Collado 1955 M Date Provider Department Center 02/15/2024 FAB PATTERSON [facility] Family History Problem Relation Age of Onset Coronary artery disease Mother Coronary artery disease Father Family Status - Relation Status Age at Mother Father Normal [facility] 37on 02-14-2024 37 *Increase lasix to 4 0mg twice daily *Hold fludrocortisone *Increase Xarelto to 20mg daily (you can take 2 tablets of 10mg) *Limit your fluid intake to no more than 2 liters a day *Limit your sodium intake, no more than 2500mg/daily *[facility] will call you to schedule a cardioversion *[facility] will call you to schedule a stress test and ECHO Normal [facility] HPon 02-14-2024 HP Cardiovascular Medic [facility] SUBJECTIVE Chief Complaint Patient presents with [...] gain. He admits to eating food at [employer] and drinking more pop that he typically does. He admits he needs to slow down with his jobs. He will likely quit [employer]. He notes that since his gastric bypass [...] (more content not included)... Normal [facility] Office Visiton 02-14-2024 Follow-up visit [id number] Jonathan Collado L 1955 [facility] Provider Department Center 02/14/2024 FAB PATTERSON NATA [facility] Family History Problem Relation Age of Onset Coronary artery disease Mother Coronary artery disease Father Family Status - Relation Status Age at Mother Father Level of Service:72931 RI OFFICE/OUTPATIENT ESTABLISHED MOD MDM 30 MIN Reason for Visit and Comments: Atrial Fibrillation [80] Coronary Artery Disease [187] Normal [facility] Orders Onlyon 02-14-2024 Orders Only [id number] Jonathan Collado L 1955 [facility] Provider Department Center 02/14/2024 MILADIS MENCHACA NATA [facility] Family History Problem Relation Age of Onset Coronary artery disease Mother Coronary artery disease Father Family Status - Relation Status Age at Mother Father Normal [facility] CBC AND AUTO DIFFon 01-28-20 24 ABSOLUTE BASOPHIL 0.1 X10E9/L Normal 0.0-0.2 [facility] Comment on above: Performed By: #### C BCA, CMP, PINR, 74543-9, 17549-6, 60425-4, 86128-6 #### [facility] ([id number]) [address] [place] [address] 66697 ABSOLUTE NEUTROPHIL 8.5 X10E9/L High 1.5-6.6 [facility] Comment on above: Performed By: #### C BCA, CMP, PINR, 52401-1, 09706-5, 43108-6, 17270-5 #### [facility] ([id number]) [address] [place] [address] 22301 Basophils/100 WBC (Bld) 0.6 % Normal [facility] Comment on above: Performed By: #### C BCA, CMP, PINR, 67841-5, 70183-6, 25359-6, 27717-8 #### [facility] ([id number]) [address] [place] [address] 28538 Eosinophils (Bld) [#/Vol] 0.1 10*3/uL Normal 0.0-0.4 [facility] Comment on above: Performed By: #### C BCA, CMP, PINR, 00509-3, 44121-0, 41485-9, 02100-5 #### [facility] ([id number]) [address] [place] [address] 45205 Eosinophils/100 WBC (Bld) 0.5 % Normal [facility] Comment on above: Performed By: #### C BCA, CMP, PINR, 16445-1, 89315-9, 26031-4, 10363-6 #### [facility] ([id number]) [address] [place] [address] 89723 Erythrocyte distribution width (RBC) [Ratio] 16.5 % High 11.5-15.0 [facility] Comment on above: Performed By: #### C BCA, CMP, PINR, 62120-1, 26309-6, 48658-7, 37626-9 #### [facility] ([id number]) [address] [place] [address] 57316 Hematocrit (Bld) [Volume fraction] 35.7 % Low 39-49 [facility] Comment on above: Performed By: #### C BCA, CMP, PINR, 66838-6, 01465-0, 09563-0, 38838-4 #### [facility] ([id number]) [address] [place] [address] 34824 Hemoglobin (Bld) [Mass/Vol] 12.1 g/dL Low 13.0-17.0 [facility] Comment on above: Performed By: #### C BCA, CMP, PINR, 45448-6, 90754-2, 40691-6, 41485-8 #### [facility] ([id number]) [address] [place] [address] 80475 Lymphocytes (Bld) [#/Vol] 1.2 10*3/uL Normal 1.0-3.5 [facility] Comment on above: Performed By: #### C BCA, CMP, PINR, 61701-6, 97748-6, 64706-8, 10587-6 #### [facility] ([id number]) [address] [place] [address] 10160 Lymphocytes/100 WBC (Bld) 11.6 % Normal [facility] Comment on above: Performed By: #### C BCA, CMP, PINR, 67719-3, 25416-8, 97264-5, 84192-1 #### [facility] ([id number]) [address] [place] [address] 30545 MCH (RBC) [Entitic mass] 28.0 pg Normal 27-34 [facility] Comment on above: Performed By: #### C BCA, CMP, PINR, 00718-3, 76309-8, 44666-3, 69811-6 #### [facility] ([id number]) [address] [place] [address] 07790 MCHC (RBC) [Mass/Vol] 34.0 g/dL Normal 32-36 [facility] Comment on above: Performed By: #### C BCA, CMP, PINR, 88141-2, 94294-2, 47265-8, 51161-6 #### [facility] ([id number]) [address] [place] [address] 53869 MCV (RBC) [Entitic vol] 82 fL Normal 80-100 [facility] Comment on above: Performed By: #### C BCA, CMP, PINR, 84418-5, 00682-2, 33256-5, 11841-8 #### [facility] ([id number]) [address] [place] [address] 64823 Monocytes (Bld) [#/Vol] 0.5 10*3/uL Normal 0-0.9 [facility] Comment on above: Performed By: #### C BCA, CMP, PINR, 37150-0, 05158-2, 82319-5, 85839-0 #### [facility] ([id number]) [address] [place] [address] 79931 Monocytes/100 WBC (Bld) 5.1 % Normal [facility] Comment on above: Performed By: #### C BCA, CMP, PINR, 40645-6, 43418-7, 13142-2, 41562-9 #### [facility] ([id number]) [address] [place] [address] 85529 Neutrophils/100 WBC (Bld) 82.2 % Normal [facility] Comment on above: Performed By: #### C BCA, CMP, PINR, 19356-2, 87198-5, 03252-2, 06542-0 #### [facility] ([id number]) [address] [place] [address] 81442 Platelet mean volume (Bld) [Entitic vol] 8.7 fL Normal 7-12 [facility] Comment on above: Performed By: #### C BCA, CMP, PINR, 39988-1, 50213-6, 70836-8, 48849-9 #### [facility] ([id number]) [address] [place] [address] 15747 Platelets (Bld) [#/Vol] 237 10*3/uL Normal 150-450 [facility] Comment on above: Performed By: #### C BCA, CMP, PINR, 28714-1, 89080-5, 49311-8, 89803-3 #### [facility] ([id number]) [address] [place] [address] 53267 RBC COUNT 4.33 X10E12/L Normal 4.10-5.70 [facility] Comment on above: Performed By: #### C BCA, CMP, PINR, 90566-3, 75240-8, 19306-3, 52193-1 #### [facility] ([id number]) [address] [place] [address] 91081 WBC (Bld) [#/Vol] 10.4 10*3/uL Normal 4.0-11.0 [facility] Comment on above: Performed By: #### C BCA, CMP, PINR, 53071-0, 66287-8, 56122-6, 70877-2 #### [facility] ([id number]) [address] [place] [address] 95176 COMPREHENSIVE METABOLIC PANE Carl 01-28-2024 Albumin [Mass/Vol] 3.4 g/dL Normal 3.2-5.3 [facility] Comment on above: Performed By: #### C BCA, CMP, PINR, 57235-9, 26290-4, 39265-1, 48820-4 #### [facility] ([id number]) [address] [place] [address] 58404 ALP [Catalytic activity/Vol] 109 U/L Normal 39-130 [facility] Comment on above: Performed By: #### C BCA, CMP, PINR, 56369-6, 19183-8, 06353-9, 46917-2 #### [facility] ([id number]) [address] [place] [address] 83659 ALT [Catalytic activity/Vol] 24 U/L Normal 0-40 [facility] Comment on above: Performed By: #### C BCA, CMP, PINR, 31926-1, 01591-3, 58418-9, 07558-3 #### [facility] ([id number]) [address] [place] [address] 41550 Anion gap [Moles/Vol] 7 mmol/L Normal 5-15 [facility] Comment on above: Performed By: #### C BCA, CMP, PINR, 45619-5, 44340-1, 46216-6, 48254-4 #### [facility] ([id number]) [address] [place] [address] 68971 AST [Catalytic activity/Vol] 19 U/L Normal 0-41 [facility] Comment on above: Performed By: #### C BCA, CMP, PINR, 37563-6, 84188-0, 83519-3, 81209-7 #### [facility] ([id number]) [address] [place] [address] 03037 Bilirubin [Mass/Vol] 2.5 mg/dL High 0.3-1.2 [facility] Comment on above: Performed By: #### C BCA, CMP, PINR, 02621-6, 53608-7, 51007-3, 99705-8 #### [facility] ([id number]) [address] [place] [address] 53465 Calcium [Mass/Vol] 7.8 mg/dL Low 8.5-10.5 [facility] Comment on above: Performed By: #### C BCA, CMP, PINR, 18533-0, 49154-7, 62119-8, 32123-3 #### [facility] ([id number]) [address] [place] [address] 64596 Chloride [Moles/Vol] 103 mmol/L Normal 98-109 [facility] Comment on above: Performed By: #### C BCA, CMP, PINR, 62443-5, 79711-2, 60512-7, 58465-8 #### [facility] ([id number]) [address] [place] [address] 79530 CO2 [Moles/Vol] 24 mmol/L Normal 22-32 [facility] Comment on above: Performed By: #### C BCA, CMP, PINR, 98721-9, 35117-4, 18630-1, 91091-3 #### [facility] ([id number]) [address] [place] [address] 77273 Creatinine [Mass/Vol] 1.09 mg/dL Normal 0.70-1.20 [facility] Comment on above: Result Comment: METH OD TRACEABLE TO IDMS STANDARD Performed By: #### C BCA, CMP, PINR, 18002-0, 77937-9, 65980-8, 88862-8 #### [facility] ([id number]) [address] [place] [address] 76167 GFR/1.73 sq M.predicted among non-blacks MDRD (S/P/Bld) [Vol rate/Area] 74 mL/min/{1.73_m2} Normal >59 [facility] Comment on above: Result Comment: Reported eGFR is based on the CKD-EPI 2020 equation that does not use a race coefficient. Performed By: #### C BCA, CMP, PINR, 99170-2, 01056-5, 93570-0, 50136-1 #### [facility] ([id number]) [address] [place] [address] 83655 Glucose [Mass/Vol] 131 mg/dL High 65-99 [facility] Comment on above: Performed By: #### C BCA, CMP, PINR, 82892-3, 12891-5, 55020-6, 94420-7 #### [facility] ([id number]) [address] [place] [address] 84216 Potassium [Moles/Vol] 3.2 mmol/L Low 3.5-5.0 [facility] Comment on above: Performed By: #### C BCA, CMP, PINR, 74306-5, 75867-7, 18976-3, 95317-7 #### [facility] ([id number]) [address] [place] [address] 59615 Protein [Mass/Vol] 6.3 g/dL Normal 6.0-8.0 [facility] Comment on above: Performed By: #### C BCA, CMP, PINR, 83330-0, 34573-0, 71565-4, 82826-6 #### [facility] ([id number]) [address] [place] [address] 39526 Sodium [Moles/Vol] 134 mmol/L Normal 134-146 [facility] Comment on above: Performed By: #### C BCA, CMP, PINR, 22251-1, 57308-7, 28934-8, 85509-4 #### [facility] ([id number]) [address] [place] [address] 89988 Urea nitrogen [Mass/Vol] 22 mg/dL Normal 5-27 [facility] Comment on above: Performed By: #### C BCA, CMP, PINR, 02336-8, 63618-1, 23765-4, 91343-2 #### [facility] ([id number]) [address] [place] [address] 33134 MAGNESIUMon 01-28-2024 Magnesium [Mass/Vol] 1.9 mg/dL Normal 1.8-2.6 [facility] Comment on above: Performed By: #### C BCA, CMP, PINR, 49302-1, 48199-9, 92784-6, 80864-7 #### [facility] ([id number]) [address] [place] [address] 74400 Natriuretic peptide B [Mass/ Vol]on 01-28-2024 Natriuretic peptide B (Bld) [Mass/Vol] 320 pg/mL High <100.0 [facility] Comment on above: Performed By: #### C BCA, CMP, PINR, 54336-5, 42148-9, 28086-0, 08744-6 #### [facility] ([id number]) [address] [place] [address] [place] [address] PROTIME AND INRon 01-28-2024 INR Coag (PPP) [Relative time] 2.0 {INR} High 0.8-1.1 [facility] Comment on above: Performed By: #### C BCA, CMP, PINR, 58194-0, 03604-6, 62493-9, 13725-9 #### [facility] ([id number]) [address] [place] [address] 95588 PT Coag (PPP) [Time] 23.2 s High 9.8-13.2 [facility] Comment on above: Result Comment: NEW REFERENCE RANGE Performed By: #### C BCA, CMP, PINR, 22795-6, 25204-9, 61571-1, 45151-0 #### [facility] ([id number]) [address] [place] [address] [place] [address] SARS/FLU A+B/RSV by NAAT/Mol ecularon 01-28-2024 SARS/FLU [...] operators who are performing tests using either [facility] [employer] or [employer] systems and is limited to laboratories that [...] repeat. Fact Sheet for Healthcare Providers: https://www.fda.gov/media /547077/download Fact Sheet for Patients: https://www.fda.gov/media /111057/download Normal [facility] Comment on above: Performed By: #### C OVFLR #### [facility] ([id number]) [address] [place] [address] 60464 TROPONIN Ion 01-28-2024 Troponin I.cardiac [Mass/Vol] 0.03 ng/mL Normal 0.00-0.04 [facility] Comment on above: Performed By: #### C BCA, CMP, PINR, 39889-9, 78963-2, 59281-5, 52461-2 #### [facility] ([id number]) [address] [place] [address] 13599 XR CHEST 1 VWon 01-28-2024 XR CHEST [...] Carbajal MD on 01/28/2024 10:34 AM Normal [facility] aPTT Coag (PPP) [Time]on aPTT Coag (Bld) [Time] 46 s High 26-37 [facility] Comment on above: Result Comment: NEW REFERENCE RANGE Performed By: #### C BCA, CMP, PINR, 13905-5, 90939-3, 85943-0, 06491-0 #### [facility] ([id number]) [address] [place] [address] 07124 No Panel Informationon 12-06 Eva Sanchez, DO 12/06/2023 9:57 AM L Inj/Asp: L glenohumeral on 12/06/2023 9:55 AM Indications: pain Details: 21 G needle, posterior approach Medications: 40 mg methylPREDNISolone acetate 40 MG/ML Procedure, treatment alternatives, risks and benefits explained, specific risks discussed. [facility] XR ANKLE LEFT (MIN 3 VIEWS)o [...] Fredrick Babin DO 01/12/23 Final result Normal [facility] XR ANKLE LEFT (MIN 3 VIEWS)o [...] Michael Reinoso DO 11/10/22 Final result Normal [facility] Creatinine W/GFR Point of Ca reon 11-09-2022 Creatinine [Mass/Vol] 0.87 mg/dL 0.51 - 1.19 mg/dL [facility] eGFR, POC mL/min/1.7 3m2 [facility] Comment on above: Effective Jul 26, 2022 [...] renal tubular secretion. No Panel Informationon 11-09 [facility] OPERATIVE REPORTon 3 OPERATIVE REPORT [address] [address] OPERATIVE REPORT PATIENT NAME: INDIO COLLADO : 1955 MED REC NO: [id number] ROOM: ACCOUNT NO: [id number] ADMIT DATE: 11/09/2022 PROVIDER: Fredrick Babin DATE OF PROCEDURE: 11/09/2022 PREOPERATIVE DIAGNOSIS: Medial wound, left ankle. POSTOPERATIVE DIAGNOSIS: Medial wound, left ankle. PROCEDURE: 1. Application of split-thickness skin graft to medial ankle wound measuring 5 x 4 cm. 2. Application of negative pressure wound VAC, left ankle. SURGEON: Fredrick Babin DO TRUCK HOP: Liss Matute DO, PGY-2 and Olga Lidia [...] in one week. FREDRICK BABIN RUSSELL/[email or web address] Doc#: [id number] CC: Normal [facility] POCT Glucoseon 11-09-2022 Glucose [Mass/Vol] 93 mg/dL 74 - 100 mg/dL [facility] POCT urea (BUN)on 11-09-2022 Urea nitrogen [Mass/Vol] 12 mg/dL 8 - 26 mg/dL [facility] Basic Metab w/rfx MGon 10-22 Anion gap [Moles/Vol] 9 mmol/L Normal -17 [facility] Comment on above: Performed By: #### B MPX #### [facility] [place], [place] [id number] [place]: Bret Vazquez MD Calcium [Mass/Vol] 8.1 mg/dL Low 8.6-10.4 [facility] Comment on above: Performed By: #### B MPX #### [facility] [address] [place] [address] [place]: Bret Vazquez MD Chloride [Moles/Vol] 102 mmol/L Normal 98-107 [facility] Comment on above: Performed By: #### B MPX #### [facility] [address] [place] [address] [place]: Bret Vazquez MD CO2 [Moles/Vol] 26 mmol/L Normal 20-31 [facility] Comment on above: Performed By: #### B MPX #### [address] [address] [place]: Bret Vazquez MD Creatinine [Mass/Vol] 0.59 mg/dL Low 0.70-1.20 [facility] Comment on above: Performed By: #### B MPX #### [address] [address] [place]: Bret Vazquez MD GFR/1.73 sq M.predicted among non-blacks MDRD (S/P/Bld) [Vol rate/Area] mL/min/{1.73_m2} Normal >60 [facility] Comment on above: Result Comment: Effective [...] secretion. Performed By: #### B MPX #### [address] [address] [place]: Bret Vazquez MD Glucose [Mass/Vol] 93 mg/dL Normal 70-99 [facility] Comment on above: Performed By: #### B MPX #### [address] [address] [place]: Bret Vazquez MD Potassium [Moles/Vol] 4.3 mmol/L Normal 3.7-5.3 [facility] Comment on above: Performed By: #### B MPX #### [address] [address] [place]: Bret Vazquez MD Sodium [Moles/Vol] 137 mmol/L Normal 135-144 [facility] Comment on above: Performed By: #### B MPX #### [address] [address] [place]: Bret Vazquez MD Urea nitrogen [Mass/Vol] 9 mg/dL Normal 8-23 [facility] Comment on above: Performed By: #### B MPX #### [address] [address] [place]: Bret Vazquez MD CBC with Diffon 10-20-2022 Abs. Basophil 0.04 k/uL Normal 0.00-0.20 [facility] Comment on above: Performed By: #### E RTPF, CK, ECENZ, VD25 #### [address] [address] [place]: Bret Vazquez MD Abs.Imm.Granulocyte <0.03 Normal 0.00-0.30 [facility] Comment on above: Performed By: #### E RTPF, CK, ECENZ, VD25 #### [address] [address] [place]: Bret Vazquez MD Abs.Neutrophil (Seg) 4.45 k/uL Normal 1.50-8.10 [facility] Comment on above: Performed By: #### E RTPF, CK, ECENZ, VD25 #### [address] [address] [place]: Bret Vazquez MD Basophils/100 WBC (Bld) 1 % Normal 0-2 M [facility] Comment on above: Performed By: #### E RTPF, CK, ECENZ, VD25 #### [address] [address] [place]: Bret Vazquez MD Eosinophils (Bld) [#/Vol] 0.11 10*3/uL Normal 0.00-0.44 [facility] Comment on above: Performed By: #### E RTPF, CK, ECENZ, VD25 #### [address] [address] [place]: Bret Vazquez MD Eosinophils/100 WBC (Bld) 2 % Normal 1-4 [facility] Comment on above: Performed By: #### E RTPF, CK, ECENZ, VD25 #### [place] [address] [place]: Bret Vazquez MD Erythrocyte distribution width (RBC) [Ratio] 14.5 % High 11.8-14.4 [facility] Comment on above: Performed By: #### E RTPF, CK, ECENZ, VD25 #### [place] [address] [place]: Bret Vazquez MD Hematocrit (Bld) [Volume fraction] 33.5 % Low 40.7-50.3 [facility] Comment on above: Performed By: #### E RTPF, CK, ECENZ, VD25 #### [address] [address] [place]: Bret Vazquez MD Hemoglobin (Bld) [Mass/Vol] 10.8 g/dL Low 13.0-17.0 [facility] Comment on above: Performed By: #### E RTPF, CK, ECENZ, VD25 #### [address] [address] [place]: Bret Vazquez MD Immature granulocytes/100 WBC (Bld) 0 % Normal 0 [facility] Comment on above: Performed By: #### E RTPF, CK, ECENZ, VD25 #### [address] [address] [place]: Bret Vazquez MD Lymphocytes (Bld) [#/Vol] 1.28 10*3/uL Normal 1.10-3.70 [facility] Comment on above: Performed By: #### E RTPF, CK, ECENZ, VD25 #### [address] [address] [place]: Bret Vazquez MD Lymphocytes/100 WBC (Bld) 19 % Low 24-43 [facility] Comment on above: Performed By: #### E RTPF, CK, ECENZ, VD25 #### [address] [address] [place]: Bret Vazquez MD MCH (RBC) [Entitic mass] 29.0 pg Normal 25.2-33.5 [facility] Comment on above: Performed By: #### E RTPF, CK, ECENZ, VD25 #### [address] [address] [place]: Bret Vazquez MD MCHC (RBC) [Mass/Vol] 32.2 g/dL Normal 28.4-34.8 [facility] Comment on above: Performed By: #### E RTPF, CK, ECENZ, VD25 #### [address] [id number] [place]: Bret Vazquez MD MCV (RBC) [Entitic vol] 90.1 fL Normal 82.6-102.9 M [facility] Comment on above: Performed By: #### E RTPF, CK, ECENZ, VD25 #### [address] [address] [place]: Bret Vazquez MD Monocytes (Bld) [#/Vol] 0.70 10*3/uL Normal 0.10-1.20 [facility] Comment on above: Performed By: #### E RTPF, CK, ECENZ, VD25 #### [address] [address] [place]: Bret Vazquez MD Monocytes/100 WBC (Bld) 11 % Normal 3-12 M [facility] Comment on above: Performed By: #### E RTPF, CK, ECENZ, VD25 #### [address] [address] [place]: Bret Vazquez MD Neutrophil (Seg) 67 % High 36-65 [facility] Comment on above: Performed By: #### E RTPF, CK, ECENZ, VD25 #### [address] [address] [place]: Bret Vazquez MD NRBC Automated 0.0 per 100 WBC Normal 0.0 [facility] Comment on above: Performed By: #### E RTPF, CK, ECENZ, VD25 #### [address] [address] [place]: Bret Vazquez MD Platelet mean volume (Bld) [Entitic vol] 10.3 fL Normal 8.1-13.5 [facility] Comment on above: Performed By: #### E RTPF, CK, ECENZ, VD25 #### [address] [place] [address] [place]: Bret Vazquez MD Platelets (Bld) [#/Vol] 236 10*3/uL Normal 138-453 [facility] Comment on above: Performed By: #### E RTPF, CK, ECENZ, VD25 #### [address] [address] [place]: Bret Vazquez MD RBC (Bld) [#/Vol] 3.72 10*6/uL Low 4.21-5.77 [facility] Comment on above: Performed By: #### E RTPF, CK, ECENZ, VD25 #### [address] [address] [place]: Bret Vazquez MD RBC morphology finding Nom (Bld) ANISOCYTOSIS PRESENT Normal [facility] Comment on above: Performed By: #### E RTPF, CK, ECENZ, VD25 #### [address] [address] [place]: Bret Vazquez MD WBC (Bld) [#/Vol] 6.6 10*3/uL Normal 3.5-11.3 [facility] Comment on above: Performed By: #### E RTPF, CK, ECENZ, VD25 #### [address] [address] [place]: Bret Vazquez MD Comp Metabolic Pr/rfx MGon 1 12-21-2021 Albumin [Mass/Vol] 2.6 g/dL Low 3.5-5.2 [facility] Comment on above: Performed By: #### E RTPF, CK, ECENZ, VD25 #### [address] [address] [place]: Bret Vazquez MD Albumin/Glob Ratio 1.2 Normal 1.0-2.5 [facility] Comment on above: Performed By: #### E RTPF, CK, ECENZ, VD25 #### [address] [address] [place]: Bret Vazquez MD Alkaline Phos 104 U/L Normal 40-129 [facility] Comment on above: Performed By: #### E RTPF, CK, ECENZ, VD25 #### [address] [address] [place]: Bret Vazquez MD ALT [Catalytic activity/Vol] 7 U/L Normal 5-41 [facility] Comment on above: Performed By: #### E RTPF, CK, ECENZ, VD25 #### [address] [address] [place]: Bret Vazquez MD Anion gap [Moles/Vol] 7 mmol/L Low 9-17 [facility] Comment on above: Performed By: #### E RTPF, CK, ECENZ, VD25 #### [address] [address] [place]: Bret Vazquez MD AST [Catalytic activity/Vol] 13 U/L Normal <40 [facility] Comment on above: Performed By: #### E RTPF, CK, ECENZ, VD25 #### [address] [address] [place]: Bret Vazquez MD Bilirubin [Mass/Vol] 0.9 mg/dL Normal 0.3-1.2 [facility] Comment on above: Performed By: #### E RTPF, CK, ECENZ, VD25 #### [address] [address] [place]: Bret Vazquez MD Calcium [Mass/Vol] 8.0 mg/dL Low 8.6-10.4 [facility] Comment on above: Performed By: #### E RTPF, CK, ECENZ, VD25 #### [facility] [employer] [address] [place] [address] [place]: Bret Vazquez MD Chloride [Moles/Vol] 103 mmol/L Normal 98-107 [facility] Comment on above: Performed By: #### E RTPF, CK, ECENZ, VD25 #### [facility] [employer] [address] [place] [address] [place]: Bret Vazquez MD CO2 [Moles/Vol] 25 mmol/L Normal 20-31 [facility] Comment on above: Performed By: #### E RTPF, CK, ECENZ, VD25 #### [address] [address] [place]: Bret Vazquez MD Creatinine [Mass/Vol] 0.67 mg/dL Low 0.70-1.20 [facility] Comment on above: Performed By: #### E RTPF, CK, ECENZ, VD25 #### [address] [address] [place]: Bret Vazquez MD GFR/1.73 sq M.predicted among non-blacks MDRD (S/P/Bld) [Vol rate/Area] mL/min/{1.73_m2} Normal >60 [facility] Comment on above: Result Comment: Effective [...] #### E RTPF, CK, ECENZ, VD25 #### [facility] [employer] [address] [place] [id number] [place]: Bret Vazquez MD Glucose [Mass/Vol] 99 mg/dL Normal 70-99 [facility] Comment on above: Performed By: #### E RTPF, CK, ECENZ, VD25 #### [address] [address] [place]: Bret Vazquez MD Potassium [Moles/Vol] 4.3 mmol/L Normal 3.7-5.3 [facility] Comment on above: Performed By: #### E RTPF, CK, ECENZ, VD25 #### [address] [address] [place]: Bret Vazquez MD Protein [Mass/Vol] 4.7 g/dL Low 6.4-8.3 [facility] Comment on above: Performed By: #### E RTPF, CK, ECENZ, VD25 #### [address] [address] [place]: Bret Vazquez MD Sodium [Moles/Vol] 135 mmol/L Normal 135-144 [facility] Comment on above: Performed By: #### E RTPF, CK, ECENZ, VD25 #### [facility] [employer] [address] [place] [address] [place]: Bret Vazquez MD Urea nitrogen [Mass/Vol] 11 mg/dL Normal 8-23 [facility] Comment on above: Performed By: #### E RTPF, CK, ECENZ, VD25 #### [address] [address] [place]: Bret Vazquez MD XR ANKLE LEFT (MIN [...] Peter Mosquera DO 10/20/22 Final result Normal [facility] FLUORO FOR SURGICAL PROCEDUR ESon 10-19-2022 FLUORO FOR SURGICAL PROCEDURES Radiology exam is complete. No Radiologist dictation. Please follow up with ordering provider. Final result Normal [facility] OPERATIVE REPORTon OPERATIVE REPORT [address] [id number] OPERATIVE REPORT PATIENT NAME: INDIO COLLADO : 1955 MED REC NO: [id number] ROOM: 0238 ACCOUNT NO: [id number] ADMIT DATE: 10/19/2022 PROVIDER: Fredrick Babin DATE [...] tissue from the fracture and then using [id number] clamps as well as K-wires, achieved reduction. [...] Integra glycosami (more content not included)... Normal [facility] XR ANKLE LEFT (MIN 3 VIEWS)o [...] Dallin Pineda MD 10/19/22 Final result Normal [facility] Aerobic Cultureon 09-27-2022 Aerobic Culture ORGANISM: [...] RESISTANT TO ALL B-LACTAM DRUGS. PERFORMED BY: [facility] [address] [place] [address] PATHOLOGIST RIB BENDER XU TAPIA M.D. [facility] Comment on above: Performed By: #### G LULS #### Point of Care testing , Anaerobic cultureOrdered By: Molly Rivera on 09-27-2022 Bacteria identified Anaer cx Nom (Unsp spec) [facility] Bacteria identified Aer cx N om (Unsp spec)Ordered By: Molly Rivera on 09-27-2022 Aerobic Culture Enterococcus faecalis [facility] Basic Metabolic Panelon 12-0 Anion gap [Moles/Vol] 10.1 mmol/L Normal 6.0-15.0 [facility] Comment on above: Performed By: #### C MP, CBC, PAB #### [facility] [address] Calcium [Mass/Vol] 8.0 mg/dL Low 8.2-10.2 [facility] Comment on above: Performed By: #### C MP, CBC, PAB #### [facility] [address] [place] [address] [place] Chloride [Moles/Vol] 105 mmol/L Normal 95-114 [facility] Comment on above: Performed By: #### C MP, CBC, PAB #### [facility] [address] CO2 [Moles/Vol] 27.1 mmol/L Normal 22.0-30.0 [facility] Comment on above: Performed By: #### C MP, CBC, PAB #### [facility] [address] Creatinine [Mass/Vol] 0.72 mg/dL Normal 0.64-1.27 [facility] Comment on above: Performed By: #### C MP, CBC, PAB #### [facility] [address] [place] [address] [place] Creatinine Clr Calc Pharmacy 108.46 [facility] Comment on above: Result Comment: PERF ORMED BY: [place] [address] PATHOLOGIST RIB BENDER XU TAPIA M.D. Performed By: #### C MP, CBC, PAB #### [facility] [address] Estimated GFR ( Marie > 60 [facility] Comment on above: Result Comment: GFR estimated reference range: According to KDOQI guidelines, <60 ml/min/1.73m2 is sufficient to diagnose a patient with chronic kidney disease. Performed By: #### C MP, CBC, PAB #### [facility] [address] [place] [address] [place] Estimated GFR (Non- Am > 60 [facility] Comment on above: Performed By: #### C MP, CBC, PAB #### [facility] [address] Glucose [Mass/Vol] 90 mg/dL Normal 70-100 [facility] Comment on above: Result Comment: [place] Glucose Reference Range is dependent on time and content of last meal. Glucose of more than 200 mg/dL in a nonstressed, ambulatory subject supports the diagnosis of Diabetes Mellitus. ADA recommended reference range Performed By: #### C MP, CBC, PAB #### [facility] [address] Potassium [Moles/Vol] 4.2 mmol/L Normal 3.5-5.1 [facility] Comment on above: Performed By: #### C MP, CBC, PAB #### [facility] [address] Sodium [Moles/Vol] 138 mmol/L Normal 136-146 [facility] Comment on above: Performed By: #### C MP, CBC, PAB #### [facility] [address] Urea nitrogen [Mass/Vol] 9 mg/dL Normal 9-23 [facility] Comment on above: Performed By: #### C MP, CBC, PAB #### [facility] [address] Basophils Auto (Bld) [#/Vol] Ordered By: Gordon Smith on 09-27-2022 Basophils (Bld) [#/Vol] 0.1 10*3/uL 0.0-0.2 [facility] Basophils/100 WBC Auto (Bld) Ordered By: Gordon Smith on 09-27-2022 Basophils/100 WBC (Bld) 1.0 % . F [facility] Complete Blood Count Auto Di ffon 09-27-2022 Basophils (Bld) [#/Vol] 0.1 10*3/uL Normal 0.0-0.2 [facility] Comment on above: Result Comment: PERF ORMED BY: [place] [address] PATHOLOGIST RIB BENDER XU TAPIA M.D. Performed By: #### C MP, CBC, PAB #### [facility] [address] Basophils/100 WBC (Bld) 1.0 % Normal . F [facility] Comment on above: Performed By: #### C MP, CBC, PAB #### [facility] [address] [place] [address] Eosinophils (Bld) [#/Vol] 0.3 10*3/uL Normal 0.0-0.45 [facility] Comment on above: Performed By: #### C MP, CBC, PAB #### [address] Eosinophils/100 WBC (Bld) 4.8 % Normal . [facility] Comment on above: Performed By: #### C MP, CBC, PAB #### [address] Erythrocyte distribution width (RBC) [Ratio] 15.8 % High 12.0-14.8 [facility] Comment on above: Performed By: #### C MP, CBC, PAB #### [address] Hematocrit (Bld) [Volume fraction] 29.5 % Low 38.8-50.0 [facility] Comment on above: Performed By: #### C MP, CBC, PAB #### [address] Hemoglobin (Bld) [Mass/Vol] 9.5 g/dL Low 13.0-17.0 [facility] Comment on above: Performed By: #### C MP, CBC, PAB #### [address] Lymphocytes (Bld) [#/Vol] 1.1 10*3/uL Normal 1.00-4.8 [facility] Comment on above: Performed By: #### C MP, CBC, PAB #### [place] [address] [place] Lymphocytes/100 WBC (Bld) 17.0 % Normal . [facility] Comment on above: Performed By: #### C MP, CBC, PAB #### [address] MCH (RBC) [Entitic mass] 30.4 pg Normal 27.5-35.2 [facility] Comment on above: Performed By: #### C MP, CBC, PAB #### [facility] [address] MCV (RBC) [Entitic vol] 94.2 fL Normal 83.5-101 F [facility] Comment on above: Performed By: #### C MP, CBC, PAB #### [facility] [address] Mean Corpuscular HGB Conc 32.3 g/dL Low 32.5-35.6 [facility] Comment on above: Performed By: #### C MP, CBC, PAB #### [facility] [address] [place] [address] [place] Monocytes (Bld) [#/Vol] 0.6 10*3/uL Normal 0.0-0.8 [facility] Comment on above: Performed By: #### C MP, CBC, PAB #### [facility] [address] Monocytes/100 WBC (Bld) 9.6 % Normal . F [facility] Comment on above: Performed By: #### C MP, CBC, PAB #### [facility] [address] [place] [address] [place] Neutrophils (Bld) [#/Vol] 4.3 10*3/uL Normal 1.8-7.7 [facility] Comment on above: Performed By: #### C MP, CBC, PAB #### [facility] [address] [place] [address] [place] Neutrophils/100 WBC (Bld) 67.6 % Normal . [facility] Comment on above: Performed By: #### C MP, CBC, PAB #### [facility] [address] [place] [address] [place] NRBC% 0.0 /100{WBC} Normal 0-0.5 [facility] Comment on above: Performed By: #### C MP, CBC, PAB #### [facility] [address] Platelet mean volume (Bld) [Entitic vol] 8.2 fL Normal 6.6-10.1 [facility] Comment on above: Performed By: #### C MP, CBC, PAB #### [facility] [address] [place] [address] [place] Platelets (Bld) [#/Vol] 352 10*3/uL Normal 150-450 [facility] Comment on above: Performed By: #### C MP, CBC, PAB #### [facility] [address] RBC (Bld) [#/Vol] 3.13 10*6/uL Low 3.90-5.60 [facility] Comment on above: Performed By: #### C MP, CBC, PAB #### [facility] [address] WBC (Bld) [#/Vol] 6.3 10*3/uL Normal 4.1-10.5 [facility] Comment on above: Performed By: #### C MP, CBC, PAB #### [facility] [address] Creatinine and Glomerular fi ltration rate.predicted panel (S/P/Bld)Ordered By: Gordon Smith on 09-27-2022 Creatinine [Mass/Vol] 0.72 mg/dL 0.64-1.27 [facility] Eosinophils Auto (Bld) [#/Vo l]Ordered By: Gordon Smith on 09-27-2022 Eosinophils (Bld) [#/Vol] 0.3 10*3/uL 0.0-0.45 [facility] Eosinophils/100 WBC Auto (Bl d)Ordered By: Gordon Smith on 09-27-2022 Eosinophils/100 WBC (Bld) 4.8 % . [facility] Erythrocyte distribution wid th Auto (RBC) [Ratio]Ordered By: Gordon Smith on 09-27-2022 Erythrocyte distribution width (RBC) [Ratio] 15.8 % 12.0-14.8 [facility] Estimated glomerular filtrat ion rate (GFR) non- AmericanOrdered By: Gordon Smith on 09-27-2022 GFR/1.73 sq M.predicted among non-blacks MDRD (S/P/Bld) [Vol rate/Area] > 60 mL/Min [facility] Gram stain for investigation of transfusion reactionOrdered By: Molly Rivera on 09-27-2022 Microscopic observation Gram stain Nom (Unsp spec) [facility] Hematocrit Auto (Bld) [Volum e fraction]Ordered By: Gordon Smith on 09-27-2022 Hematocrit (Bld) [Volume fraction] 29.5 % 38.8-50.0 [facility] Hemoglobin [Mass/volume] in BloodOrdered By: Gordon Smith on 09-27-2022 Hemoglobin (Bld) [Mass/Vol] 9.5 g/dL 13.0-17.0 [facility] Leukocytes [#/volume] correc tyree for nucleated erythrocytes in Blood by Automated counOrdered By: Gordon Smith on 09-27-2022 WBC corrected for nucl RBC Auto (Bld) [#/Vol] 6.3 10*3/uL 4.1-10.5 [facility] Lymphocytes Auto (Bld) [#/Vo l]Ordered By: Gordon Smith on 09-27-2022 Lymphocytes (Bld) [#/Vol] 1.1 10*3/uL 1.00-4.8 [facility] Lymphocytes/100 WBC Auto (Bl d)Ordered By: Gordon Smith on 09-27-2022 Lymphocytes/100 WBC (Bld) 17.0 % . [facility] MCH Auto (RBC) [Entitic mass ]Ordered By: Gordon Smith on 09-27-2022 MCH (RBC) [Entitic mass] 30.4 pg 27.5-35.2 [facility] MCHC Auto (RBC) [Mass/Vol]Or dered By: Gordon Smith on 09-27-2022 MCHC (RBC) [Mass/Vol] 32.3 g/dL 32.5-35.6 [facility] MCV Auto (RBC) [Entitic vol] Ordered By: Gordon Smith on 09-27-2022 MCV (RBC) [Entitic vol] 94.2 fL 83.5-101 F [facility] Monocytes Auto (Bld) [#/Vol] Ordered By: Gordon Smith on 09-27-2022 Monocytes (Bld) [#/Vol] 0.6 10*3/uL 0.0-0.8 [facility] Monocytes/100 WBC Auto (Bld) Ordered By: Gordon Smith on 09-27-2022 Monocytes/100 WBC (Bld) 9.6 % . F [facility] Neutrophils Auto (Bld) [#/Vo l]Ordered By: Gordon Smith on 09-27-2022 Neutrophils (Bld) [#/Vol] 4.3 10*3/uL 1.8-7.7 [facility] Neutrophils/100 WBC Auto (Bl d)Ordered By: Gordon Smith on 09-27-2022 Neutrophils/100 WBC (Bld) 67.6 % . [facility] No Panel InformationOrdered By: Gordon Smith on 09-27-2022 Estimated GFR () > 60 mL/Min [facility] Comment on above: GFR estimated refere nce range: According to KDOQI guidelines, <60 ml/min/1.73m2 is sufficient to diagnose a patient with chronic kidney disease. Pharmacy Creatinine Clearance (Chem 108.46 [facility] Nucleated erythrocytes [Pres ence] in Blood by Automated countOrdered By: Gordon Smith on 09-27-2022 Nucleated RBC Auto Ql (Bld) 0.0 /100{WBC} 0-0.5 [facility] Platelet mean volume Auto (B ld) [Entitic vol]Ordered By: Gordon Smith on 09-27-2022 Platelet mean volume (Bld) [Entitic vol] 8.2 fL 6.6-10.1 [facility] Platelets Auto (Bld) [#/Vol] Ordered By: Gordon Smith on 09-27-2022 Platelets (Bld) [#/Vol] 352 10*3/uL 150-450 [facility] RBC Auto (Bld) [#/Vol]Ordere d By: Grodon Smith on 09-27-2022 RBC (Bld) [#/Vol] 3.13 10*6/uL 3.90-5.60 [facility] Serum or plasma anion gap de terminationOrdered By: Gordon Smith on 09-27-2022 Anion gap [Moles/Vol] 10.1 mmol/L 6.0-15.0 [facility] Serum or plasma calcium berhane urement (mass/volume)Ordered By: Gordon Smith on 09-27-2022 Calcium [Mass/Vol] 8.0 mg/dL 8.2-10.2 [facility] Serum or plasma chloride elle surement (moles/volume)Ordered By: Gordon Smith on 09-27-2022 Chloride [Moles/Vol] 105 mmol/L 95-114 [facility] Serum or plasma glucose berhane urement (mass/volume)Ordered By: Gordon Smith on 09-27-2022 Glucose [Mass/Vol] 90 mg/dL 70-100 [facility] Comment on above: ADA recommended refe rence rangeRandom Glucose Reference Range is dependent on time and content of last meal. Glucose of more than 200 mg/dL in a nonstressed, ambulatory subject supports the diagnosis of Diabetes Mellitus. Serum or plasma potassium me asurement (moles/volume)Ordered By: Gordon Smith on 09-27-2022 Potassium [Moles/Vol] 4.2 mmol/L 3.5-5.1 [facility] Serum or plasma sodium measu rement (moles/volume)Ordered By: Gordon Smith on 09-27-2022 Sodium [Moles/Vol] 138 mmol/L 136-146 [facility] Serum or plasma total carbon dioxide measurement (moles/volume)Ordered By: Gordon Smith on 09-27-2022 CO2 [Moles/Vol] 27.1 mmol/L 22.0-30.0 [facility] Serum or plasma urea nitroge n measurement (mass/volume)Ordered By: Gordon Smith on 09-27-2022 Urea nitrogen [Mass/Vol] 9 mg/dL 9-23 [facility] US venous duplex LE BIon US venous duplex LE BI [place] [address] Ultrasound Report Signed Patient: Indio Collado MR#: [id number] 8 : 1955 Acct:[id number] Age/Sex: 67 / M ADM Date: 09/11/22 Loc: Room: [address] [place] [address] Type: ADM IN Attending Dr: Gordon Smith [...] Chirag Hatch MD09/27/2022 2:17 PM Dictation Location: [place] [address] Tech: Mirna Sharma Transcribed By: YENI 09/27/221416 Dictated By: Chirag Hatch MD 09/27/221415 Signed By: 09/27/221416 Normal [facility] WBC Auto (Bld) [#/Vol]Ordere d By: Gordon Smith on 09-27-2022 WBC (Bld) [#/Vol] 6.3 10*3/uL 4.1-10.5 [facility] Complete Blood Count Auto Di ffon 09-26-2022 Basophils (Bld) [#/Vol] 0.1 10*3/uL Normal 0.0-0.2 [facility] Comment on above: Result Comment: PERF ORMED BY: [facility] [address] [place] [address] PATHOLOGIST RIB BENDER XU TAPIA M.D. Performed By: #### G LULS #### Point of Care testing , Basophils/100 WBC (Bld) 2.1 % Normal . [facility] Comment on above: Performed By: #### G LULS #### Point of Care testing , Eosinophils (Bld) [#/Vol] 0.4 10*3/uL Normal 0.0-0.45 [facility] Comment on above: Performed By: #### G LULS #### Point of Care testing , Eosinophils/100 WBC (Bld) 7.6 % Normal . [facility] Comment on above: Performed By: #### G HUGOLS #### Point of Care testing , Erythrocyte distribution width (RBC) [Ratio] 15.9 % High 12.0-14.8 [facility] Comment on above: Performed By: #### G HUGOLS #### Point of Care testing , Hematocrit (Bld) [Volume fraction] 28.6 % Low 38.8-50.0 [facility] Comment on above: Performed By: #### G HUGOLS #### Point of Care testing , Hemoglobin (Bld) [Mass/Vol] 9.4 g/dL Low 13.0-17.0 [facility] Comment on above: Performed By: #### G HUGOLS #### Point of Care testing , Lymphocytes (Bld) [#/Vol] 1.2 10*3/uL Normal 1.00-4.8 [facility] Comment on above: Performed By: #### G HUGOLS #### Point of Care testing , Lymphocytes/100 WBC (Bld) 23.5 % Normal . [facility] Comment on above: Performed By: #### G HUGOLS #### Point of Care testing , MCH (RBC) [Entitic mass] 30.9 pg Normal 27.5-35.2 [facility] Comment on above: Performed By: #### G HUGOLS #### Point of Care testing , MCV (RBC) [Entitic vol] 93.9 fL Normal 83.5-101 F [facility] Comment on above: Performed By: #### G LULS #### Point of Care testing , Mean Corpuscular HGB Conc 32.9 g/dL Normal 32.5-35.6 [facility] Comment on above: Performed By: #### G HUGOLS #### Point of Care testing , Monocytes (Bld) [#/Vol] 0.5 10*3/uL Normal 0.0-0.8 [facility] Comment on above: Performed By: #### G HUGOLS #### Point of Care testing , Monocytes/100 WBC (Bld) 10.0 % Normal . [facility] Comment on above: Performed By: #### G LULS #### Point of Care testing , Neutrophils (Bld) [#/Vol] 2.8 10*3/uL Normal 1.8-7.7 [facility] Comment on above: Performed By: #### G HUGOLS #### Point of Care testing , Neutrophils/100 WBC (Bld) 56.8 % Normal . [facility] Comment on above: Performed By: #### G LULS #### Point of Care testing , NRBC% 0.2 /100{WBC} Normal 0-0.5 [facility] Comment on above: Performed By: #### G HUGOLS #### Point of Care testing , Platelet mean volume (Bld) [Entitic vol] 7.9 fL Normal 6.6-10.1 [facility] Comment on above: Performed By: #### G HUGOLS #### Point of Care testing , Platelets (Bld) [#/Vol] 371 10*3/uL Normal 150-450 [facility] Comment on above: Performed By: #### G HUGOLS #### Point of Care testing , RBC (Bld) [#/Vol] 3.04 10*6/uL Low 3.90-5.60 [facility] Comment on above: Performed By: #### G HUGOLS #### Point of Care testing , WBC (Bld) [#/Vol] 4.9 10*3/uL Normal 4.1-10.5 [facility] Comment on above: Performed By: #### G HUGOLS #### Point of Care testing , Complete Blood Count Auto Di ffon 09-23-2022 Basophils (Bld) [#/Vol] 0.1 10*3/uL Normal 0.0-0.2 [facility] Comment on above: Result Comment: PERF ORMED BY: [facility] [place] [address] PATHOLOGIST RIB BENDER XU TAPIA M.D. Performed By: #### G HUGOLS #### Point of Care testing , Basophils/100 WBC (Bld) 1.3 % Normal . [facility] Comment on above: Performed By: #### G HUGOLS #### Point of Care testing , Eosinophils (Bld) [#/Vol] 0.3 10*3/uL Normal 0.0-0.45 [facility] Comment on above: Performed By: #### G HUGOLS #### Point of Care testing , Eosinophils/100 WBC (Bld) 4.7 % Normal . [facility] Comment on above: Performed By: #### G HUGOLS #### Point of Care testing , Erythrocyte distribution width (RBC) [Ratio] 16.1 % High 12.0-14.8 [facility] Comment on above: Performed By: #### G HUGOLS #### Point of Care testing , Hematocrit (Bld) [Volume fraction] 27.6 % Low 38.8-50.0 [facility] Comment on above: Performed By: #### G HUGOLS #### Point of Care testing , Hemoglobin (Bld) [Mass/Vol] 9.0 g/dL Low 13.0-17.0 [facility] Comment on above: Performed By: #### G HUGOLS #### Point of Care testing , Lymphocytes (Bld) [#/Vol] 1.4 10*3/uL Normal 1.00-4.8 [facility] Comment on above: Performed By: #### G HUGOLS #### Point of Care testing , Lymphocytes/100 WBC (Bld) 20.0 % Normal . [facility] Comment on above: Performed By: #### G HUGOLS #### Point of Care testing , MCH (RBC) [Entitic mass] 31.0 pg Normal 27.5-35.2 [facility] Comment on above: Performed By: #### G HUGOLS #### Point of Care testing , MCV (RBC) [Entitic vol] 95.3 fL Normal 83.5-101 F [facility] Comment on above: Performed By: #### G HUGOLS #### Point of Care testing , Mean Corpuscular HGB Conc 32.5 g/dL Normal 32.5-35.6 [facility] Comment on above: Performed By: #### G LULS #### Point of Care testing , Monocytes (Bld) [#/Vol] 0.6 10*3/uL Normal 0.0-0.8 [facility] Comment on above: Performed By: #### G USMAN #### Point of Care testing , Monocytes/100 WBC (Bld) 8.8 % Normal . [facility] Comment on above: Performed By: #### G USMAN #### Point of Care testing , Neutrophils (Bld) [#/Vol] 4.6 10*3/uL Normal 1.8-7.7 [facility] Comment on above: Performed By: #### G USMAN #### Point of Care testing , Neutrophils/100 WBC (Bld) 65.2 % Normal . [facility] Comment on above: Performed By: #### G USMAN #### Point of Care testing , NRBC% 0.0 /100{WBC} Normal 0-0.5 [facility] Comment on above: Performed By: #### Bethel MARY #### Point of Care testing , Platelet mean volume (Bld) [Entitic vol] 8.1 fL Normal 6.6-10.1 [facility] Comment on above: Performed By: #### Bethel MARY #### Point of Care testing , Platelets (Bld) [#/Vol] 362 10*3/uL Normal 150-450 [facility] Comment on above: Performed By: #### Bethel MARY #### Point of Care testing , RBC (Bld) [#/Vol] 2.90 10*6/uL Low 3.90-5.60 [facility] Comment on above: Performed By: #### Bethel MARY #### Point of Care testing , WBC (Bld) [#/Vol] 7.0 10*3/uL Normal 4.1-10.5 [facility] Comment on above: Performed By: #### G USMAN #### Point of Care testing , Complete Blood Count Auto Di ffon 09-22-2022 Basophils (Bld) [#/Vol] 0.1 10*3/uL Normal 0.0-0.2 [facility] Comment on above: Result Comment: PERF ORMED BY: [facility] [place] [address] PATHOLOGIST RIB BENDER XU TAPIA M.D. Performed By: #### G LULS #### Point of Care testing , Basophils/100 WBC (Bld) 1.3 % Normal . [facility] Comment on above: Performed By: #### G LULS #### Point of Care testing , Eosinophils (Bld) [#/Vol] 0.3 10*3/uL Normal 0.0-0.45 [facility] Comment on above: Performed By: #### G LULS #### Point of Care testing , Eosinophils/100 WBC (Bld) 4.4 % Normal . [facility] Comment on above: Performed By: #### G LULS #### Point of Care testing , Erythrocyte distribution width (RBC) [Ratio] 16.1 % High 12.0-14.8 [facility] Comment on above: Performed By: #### G LULS #### Point of Care testing , Hematocrit (Bld) [Volume fraction] 26.6 % Low 38.8-50.0 [facility] Comment on above: Performed By: #### G LULS #### Point of Care testing , Hemoglobin (Bld) [Mass/Vol] 8.7 g/dL Low 13.0-17.0 [facility] Comment on above: Performed By: #### G LULS #### Point of Care testing , Lymphocytes (Bld) [#/Vol] 1.3 10*3/uL Normal 1.00-4.8 [facility] Comment on above: Performed By: #### G LULS #### Point of Care testing , Lymphocytes/100 WBC (Bld) 22.0 % Normal . [facility] Comment on above: Performed By: #### G LULS #### Point of Care testing , MCH (RBC) [Entitic mass] 31.1 pg Normal 27.5-35.2 [facility] Comment on above: Performed By: #### G LULS #### Point of Care testing , MCV (RBC) [Entitic vol] 95.0 fL Normal 83.5-101 F [facility] Comment on above: Performed By: #### G HUGOLS #### Point of Care testing , Mean Corpuscular HGB Conc 32.8 g/dL Normal 32.5-35.6 [facility] Comment on above: Performed By: #### G USMAN #### Point of Care testing , Monocytes (Bld) [#/Vol] 0.5 10*3/uL Normal 0.0-0.8 [facility] Comment on above: Performed By: #### G HUGOLS #### Point of Care testing , Monocytes/100 WBC (Bld) 8.7 % Normal . [facility] Comment on above: Performed By: #### G USMNA #### Point of Care testing , Neutrophils (Bld) [#/Vol] 3.9 10*3/uL Normal 1.8-7.7 [facility] Comment on above: Performed By: #### Bethel ARIASLS #### Point of Care testing , Neutrophils/100 WBC (Bld) 63.6 % Normal . [facility] Comment on above: Performed By: #### Bethel MARY #### Point of Care testing , NRBC% 0.2 /100{WBC} Normal 0-0.5 [facility] Comment on above: Performed By: #### G USMAN #### Point of Care testing , Platelet mean volume (Bld) [Entitic vol] 8.5 fL Normal 6.6-10.1 [facility] Comment on above: Performed By: #### G USMAN #### Point of Care testing , Platelets (Bld) [#/Vol] 339 10*3/uL Normal 150-450 [facility] Comment on above: Performed By: #### G USMAN #### Point of Care testing , RBC (Bld) [#/Vol] 2.80 10*6/uL Low 3.90-5.60 [facility] Comment on above: Performed By: #### Bethel MARY #### Point of Care testing , WBC (Bld) [#/Vol] 6.1 10*3/uL Normal 4.1-10.5 [facility] Comment on above: Performed By: #### G USMAN #### Point of Care testing , Basic Metabolic Panelon 11-2 Anion gap [Moles/Vol] 9.4 mmol/L Normal 6.0-15.0 [facility] Comment on above: Performed By: #### C MP, CBC, PAB #### [facility] [address] Calcium [Mass/Vol] 7.9 mg/dL Low 8.2-10.2 [facility] Comment on above: Performed By: #### C MP, CBC, PAB #### [facility] [address] Chloride [Moles/Vol] 104 mmol/L Normal 95-114 [facility] Comment on above: Performed By: #### C MP, CBC, PAB #### [facility] [address] CO2 [Moles/Vol] 29.0 mmol/L Normal 22.0-30.0 [facility] Comment on above: Performed By: #### C MP, CBC, PAB #### [facility] [address] Creatinine [Mass/Vol] 0.77 mg/dL Normal 0.64-1.27 [facility] Comment on above: Performed By: #### C MP, CBC, PAB #### [facility] [address] [place] [address] [place] Creatinine Clr Calc Pharmacy 111.64 [facility] Comment on above: Result Comment: PERF ORMED BY: [place] [address] PATHOLOGIST RIB BENDER XU TAPIA M.D. Performed By: #### C MP, CBC, PAB #### [facility] [address] [place] [address] [place] Estimated GFR ( Marie > 60 Normal [facility] Comment on above: Result Comment: GFR estimated reference range: According to KDOQI guidelines, <60 ml/min/1.73m2 is sufficient to diagnose a patient with chronic kidney disease. Performed By: #### C MP, CBC, PAB #### [address] Estimated GFR (Non- Am > 60 Normal [facility] Comment on above: Performed By: #### C MP, CBC, PAB #### [address] Glucose [Mass/Vol] 81 mg/dL Normal 70-100 [facility] Comment on above: Result Comment: [place] Glucose Reference Range is dependent on time and content of last meal. Glucose of more than 200 mg/dL in a nonstressed, ambulatory subject supports the diagnosis of Diabetes Mellitus. ADA recommended reference range Performed By: #### C MP, CBC, PAB #### [address] Potassium [Moles/Vol] 4.4 mmol/L Normal 3.5-5.1 [facility] Comment on above: Performed By: #### C MP, CBC, PAB #### [address] Sodium [Moles/Vol] 138 mmol/L Normal 136-146 [facility] Comment on above: Performed By: #### C MP, CBC, PAB #### [address] Urea nitrogen [Mass/Vol] 8 mg/dL Low 9-23 [facility] Comment on above: Performed By: #### C MP, CBC, PAB #### [address] Complete Blood Count Auto Di ffon 09-21-2022 Basophils (Bld) [#/Vol] 0.1 10*3/uL Normal 0.0-0.2 [facility] Comment on above: Result Comment: PERF ORMED BY: [place] [address] PATHOLOGIST RIB BENDER JIANLAN SUN M.D. Performed By: #### C MP, CBC, PAB #### [facility] [address] [place] [address] [place] Basophils/100 WBC (Bld) 1.5 % Normal . [facility] Comment on above: Performed By: #### C MP, CBC, PAB #### [facility] [address] [place] [address] [place] Eosinophils (Bld) [#/Vol] 0.4 10*3/uL Normal 0.0-0.45 [facility] Comment on above: Performed By: #### C MP, CBC, PAB #### [facility] [address] [place] [address] [place] Eosinophils/100 WBC (Bld) 6.3 % Normal . [facility] Comment on above: Performed By: #### C MP, CBC, PAB #### [facility] [address] Erythrocyte distribution width (RBC) [Ratio] 16.0 % High 12.0-14.8 [facility] Comment on above: Performed By: #### C MP, CBC, PAB #### [facility] [address] [place] [address] [place] Hematocrit (Bld) [Volume fraction] 25.5 % Low 38.8-50.0 [facility] Comment on above: Performed By: #### C MP, CBC, PAB #### [facility] [address] [place] [address] [place] Hemoglobin (Bld) [Mass/Vol] 8.3 g/dL Low 13.0-17.0 [facility] Comment on above: Performed By: #### C MP, CBC, PAB #### [facility] [address] [place] [address] [place] Lymphocytes (Bld) [#/Vol] 1.6 10*3/uL Normal 1.00-4.8 [facility] Comment on above: Performed By: #### C MP, CBC, PAB #### [facility] [address] [place] [address] [place] Lymphocytes/100 WBC (Bld) 24.7 % Normal . [facility] Comment on above: Performed By: #### C MP, CBC, PAB #### [facility] [address] MCH (RBC) [Entitic mass] 31.3 pg Normal 27.5-35.2 [facility] Comment on above: Performed By: #### C MP, CBC, PAB #### [facility] [address] MCV (RBC) [Entitic vol] 95.9 fL Normal 83.5-101 F [facility] Comment on above: Performed By: #### C MP, CBC, PAB #### [facility] [address] Mean Corpuscular HGB Conc 32.7 g/dL Normal 32.5-35.6 [facility] Comment on above: Performed By: #### C MP, CBC, PAB #### [facility] [address] Monocytes (Bld) [#/Vol] 0.6 10*3/uL Normal 0.0-0.8 [facility] Comment on above: Performed By: #### C MP, CBC, PAB #### [facility] [address] Monocytes/100 WBC (Bld) 9.1 % Normal . [facility] Comment on above: Performed By: #### C MP, CBC, PAB #### [facility] [address] Neutrophils (Bld) [#/Vol] 3.7 10*3/uL Normal 1.8-7.7 [facility] Comment on above: Performed By: #### C MP, CBC, PAB #### [facility] [address] Neutrophils/100 WBC (Bld) 58.4 % Normal . [facility] Comment on above: Performed By: #### C MP, CBC, PAB #### [facility] [address] Platelet mean volume (Bld) [Entitic vol] 8.3 fL Normal 6.6-10.1 [facility] Comment on above: Performed By: #### C MP, CBC, PAB #### [address] Platelets (Bld) [#/Vol] 372 10*3/uL Normal 150-450 [facility] Comment on above: Performed By: #### C MP, CBC, PAB #### [address] RBC (Bld) [#/Vol] 2.66 10*6/uL Low 3.90-5.60 [facility] Comment on above: Performed By: #### C MP, CBC, PAB #### [address] WBC (Bld) [#/Vol] 6.4 10*3/uL Normal 4.5-11.0 [facility] Comment on above: Performed By: #### C MP, CBC, PAB #### [address] Complete Blood Count Auto Di ffOrdered By: Gordon Smith on 09-21-2022 Nucleated RBC/100 WBC (Bld) [Ratio] 0.1 % 0-0.5 [facility] Comment on above: Performed By: #### C MP, CBC, PAB #### [address] Complete Blood Count Auto Di ffon 09-20-2022 Basophils (Bld) [#/Vol] 0.1 10*3/uL Normal 0.0-0.2 [facility] Comment on above: Result Comment: PERF ORMED BY: [place] [address] PATHOLOGIST RIB BENDER XU TAPIA M.D. Performed By: #### C BC #### [address] Basophils/100 WBC (Bld) 1.2 % Normal . [facility] Comment on above: Performed By: #### C BC #### [address] Eosinophils (Bld) [#/Vol] 0.3 10*3/uL Normal 0.0-0.45 [facility] Comment on above: Performed By: #### C BC #### [address] Eosinophils/100 WBC (Bld) 4.6 % Normal . [facility] Comment on above: Performed By: #### C BC #### [address] Erythrocyte distribution width (RBC) [Ratio] 16.3 % High 12.0-14.8 [facility] Comment on above: Performed By: #### C BC #### [address] Hematocrit (Bld) [Volume fraction] 26.4 % Low 38.8-50.0 [facility] Comment on above: Performed By: #### C BC #### [address] Hemoglobin (Bld) [Mass/Vol] 8.7 g/dL Low 13.0-17.0 [facility] Comment on above: Performed By: #### C BC #### [address] Lymphocytes (Bld) [#/Vol] 1.4 10*3/uL Normal 1.00-4.8 [facility] Comment on above: Performed By: #### C BC #### [address] Lymphocytes/100 WBC (Bld) 20.0 % Normal . [facility] Comment on above: Performed By: #### C BC #### [address] MCH (RBC) [Entitic mass] 31.8 pg Normal 27.5-35.2 [facility] Comment on above: Performed By: #### C BC #### [address] MCV (RBC) [Entitic vol] 96.0 fL Normal 83.5-101 F [facility] Comment on above: Performed By: #### C BC #### [facility] [address] Mean Corpuscular HGB Conc 33.2 g/dL Normal 32.5-35.6 [facility] Comment on above: Performed By: #### C BC #### [facility] [address] [place] [address] [place] Monocytes (Bld) [#/Vol] 0.6 10*3/uL Normal 0.0-0.8 [facility] Comment on above: Performed By: #### C BC #### [facility] [address] Monocytes/100 WBC (Bld) 8.5 % Normal . [facility] Comment on above: Performed By: #### C BC #### [facility] [address] [place] [address] [place] Neutrophils (Bld) [#/Vol] 4.5 10*3/uL Normal 1.8-7.7 [facility] Comment on above: Performed By: #### C BC #### [facility] [address] [place] [address] [place] Neutrophils/100 WBC (Bld) 65.7 % Normal . [facility] Comment on above: Performed By: #### C BC #### [facility] [address] [place] [address] [place] Nucleated RBC/100 WBC (Bld) [Ratio] 0.0 % Normal 0-0.5 [facility] Comment on above: Performed By: #### C BC #### [facility] [address] [place] [address] [place] Platelet mean volume (Bld) [Entitic vol] 8.3 fL Normal 6.6-10.1 [facility] Comment on above: Performed By: #### C BC #### [facility] [address] [place] [address] [place] Platelets (Bld) [#/Vol] 373 10*3/uL Normal 150-450 [facility] Comment on above: Performed By: #### C BC #### [address] RBC (Bld) [#/Vol] 2.75 10*6/uL Low 3.90-5.60 [facility] Comment on above: Performed By: #### C BC #### [address] WBC (Bld) [#/Vol] 6.8 10*3/uL Normal 4.5-11.0 [facility] Comment on above: Performed By: #### C BC #### [address] Fecal occult blood detection by immunochemistryOrdered By: Tram Perez on 09-20-2022 Hemoglobin.gastrointesti nal Ql (Stl) [facility] Stool Occult Blood (Guaiac)o n 09-20-2022 Stool Occult Blood (Guaiac) Occult Blood Negative for Occult Blood by Guaiac Methodology ---- Reference range = Negative PERFORMED BY: [place] [address] PATHOLOGIST RIB BENDER UX TAPIA M.D. [facility] Comment on above: Performed By: #### C MP, CBC, PAB #### [address] US venous duplex LE BIon US venous duplex LE BI [facility] [place] [address] [place] [address] Ultrasound Report Signed Patient: Indio Collado MR#: [id number] 8 : 1955 Acct:[id number] Age/Sex: 67 / M ADM Date: 09/11/22 Loc: Room: [address] [place] [address] Type: ADM IN Attending Dr: Gordon Smith [...] Fer Mayfield M.D.09/20/2022 2:43 PM Dictation Location: [place] [address] Tech: Malgorzata Brian Transcribed By: YENI 09/20/22 144 Dictated By: Fer Mayfield MD 09/20/22 144 Signed By: 09/20/22 144 [facility] Activated partial thrombopla stin time (aPTT) in platelet poor plasma by coagulation aOrdered By: Tram Perez on 09-19-2022 aPTT Coag (PPP) [Time] 33.8 s 25.1-36.5 [facility] Basic Metabolic Panelon 08-25 Anion gap [Moles/Vol] 7.3 mmol/L Normal 6.0-15.0 [facility] Comment on above: Performed By: #### C MP, CBC, PAB #### [facility] [address] Calcium [Mass/Vol] 7.8 mg/dL Low 8.2-10.2 [facility] Comment on above: Performed By: #### C MP, CBC, PAB #### [facility] [address] [place] [address] [place] Chloride [Moles/Vol] 103 mmol/L Normal 95-114 [facility] Comment on above: Performed By: #### C MP, CBC, PAB #### [facility] [address] CO2 [Moles/Vol] 29.1 mmol/L Normal 22.0-30.0 [facility] Comment on above: Performed By: #### C MP, CBC, PAB #### [facility] [address] Creatinine [Mass/Vol] 0.86 mg/dL Normal 0.64-1.27 [facility] Comment on above: Performed By: #### C MP, CBC, PAB #### [address] Creatinine Clr Calc Pharmacy 103.85 [facility] Comment on above: Result Comment: PERF ORMED BY: [place] [address] PATHOLOGIST RIB BENDER XU TAPIA M.D. Performed By: #### C MP, CBC, PAB #### [address] Estimated GFR ( Marie > 60 [facility] Comment on above: Result Comment: GFR estimated reference range: According to KDOQI guidelines, <60 ml/min/1.73m2 is sufficient to diagnose a patient with chronic kidney disease. Performed By: #### C MP, CBC, PAB #### [place] [address] [place] Estimated GFR (Non- Am > 60 [facility] Comment on above: Performed By: #### C MP, CBC, PAB #### [place] [address] [place] Glucose [Mass/Vol] 90 mg/dL Normal 70-100 [facility] Comment on above: Result Comment: [place] Glucose Reference Range is dependent on time and content of last meal. Glucose of more than 200 mg/dL in a nonstressed, ambulatory subject supports the diagnosis of Diabetes Mellitus. ADA recommended reference range Performed By: #### C MP, CBC, PAB #### [facility] [facility] [address] Potassium [Moles/Vol] 4.4 mmol/L Normal 3.5-5.1 [facility] Comment on above: Performed By: #### C MP, CBC, PAB #### [facility] [address] Sodium [Moles/Vol] 135 mmol/L Low 136-146 [facility] Comment on above: Performed By: #### C MP, CBC, PAB #### [facility] [address] Urea nitrogen [Mass/Vol] 10 mg/dL Normal 9-23 [facility] Comment on above: Performed By: #### C MP, CBC, PAB #### [facility] [address] abdomen pelvis w conon CT abdomen pelvis w con [facility] [place] [address] [place] [address] CT Scan Report Signed Patient: Indio Collado MR#: [id number] 8 : 1955 Acct:[id number] Age/Sex: 67 / M ADM Date: 09/11/22 Loc: Room: [address] [place] [address] Type: ADM IN Attending Dr: Gordon Smith [...] Juhi Morales M.D.09/19/2022 3:46 PM Dictation Location: [place] [address] Transcribed By: [facility] 09/19/22 1546 Dictated By: Juhi Morales MD 09/19/22 1534 Signed By: 09/19/22 1546 Normal [facility] Coagulation Profileon 2021 aPTT Coag (Bld) [Time] 33.8 s Normal 25.1-36.5 [facility] Comment on above: Result Comment: PERF ORMED BY: [address] [place] [address] PATHOLOGIST RIB BENDER XU TAPIA M.D. Performed By: #### C MP, CBC, PAB #### [facility] [address] INR Coag (PPP) [Relative time] 1.2 {INR} Normal [facility] Comment on above: Result Comment: INR Therapeutic [...] By: #### C MP, CBC, PAB #### [facility] [address] PT Coag (PPP) [Time] 13.1 s High 9.0-12.9 [facility] Comment on above: Performed By: #### C MP, CBC, PAB #### [facility] [address] [place] [address] Laboratory - CoagulationOrde red By: Tram Perez on 09-19-2022 PT Coag (PPP) [Time] 13.1 s 9.0-12.9 [facility] Platelet poor plasma interna tional normalized ratio (INR) by coagulation assay (relatOrdered By: Tram Perez on 09-19-2022 INR Coag (PPP) [Relative time] 1.2 {INR} [facility] Comment on above: INR Therapeutic Rang e [...] Anion gap [Moles/Vol] 8.9 mmol/L Normal 6.0-15.0 [facility] Comment on above: Performed By: #### C BC, BMP #### [address] Calcium [Mass/Vol] 7.9 mg/dL Low 8.2-10.2 [facility] Comment on above: Performed By: #### C BC, BMP #### [facility] [address] Chloride [Moles/Vol] 103 mmol/L Normal 95-114 [facility] Comment on above: Performed By: #### C BC, BMP #### [facility] [address] CO2 [Moles/Vol] 28.4 mmol/L Normal 22.0-30.0 [facility] Comment on above: Performed By: #### C BC, BMP #### [facility] [address] Creatinine [Mass/Vol] 0.78 mg/dL Normal 0.64-1.27 [facility] Comment on above: Performed By: #### C BC, BMP #### [place] [address] [place] Creatinine Clr Calc Pharmacy 102.55 [facility] Comment on above: Result Comment: PERF ORMED BY: [place] [address] PATHOLOGIST RIB BENDER XU TAPIA M.D. Performed By: #### C BC, BMP #### [address] Estimated GFR ( Marie > 60 [facility] Comment on above: Result Comment: GFR estimated reference range: According to KDOQI guidelines, <60 ml/min/1.73m2 is sufficient to diagnose a patient with chronic kidney disease. Performed By: #### C BC, BMP #### [facility] [address] [place] [address] Estimated GFR (Non- Am > 60 [facility] Comment on above: Performed By: #### C BC, BMP #### [facility] [address] Glucose [Mass/Vol] 95 mg/dL Normal 70-100 [facility] Comment on above: Result Comment: [place] Glucose Reference Range is dependent on time and content of last meal. Glucose of more than 200 mg/dL in a nonstressed, ambulatory subject supports the diagnosis of Diabetes Mellitus. ADA recommended reference range Performed By: #### C BC, BMP #### [address] Potassium [Moles/Vol] 4.3 mmol/L Normal 3.5-5.1 [facility] Comment on above: Performed By: #### C BC, BMP #### [address] Sodium [Moles/Vol] 136 mmol/L Normal 136-146 [facility] Comment on above: Performed By: #### C BC, BMP #### [address] Urea nitrogen [Mass/Vol] 9 mg/dL Normal 9-23 [facility] Comment on above: Performed By: #### C BC, BMP #### [address] Complete Blood Count Auto Di ffon 09-18-2022 Basophils (Bld) [#/Vol] 0.1 10*3/uL Normal 0.0-0.2 [facility] Comment on above: Result Comment: PERF ORMED BY: [place] [address] PATHOLOGIST RIB BENDER XU TAPIA M.D. Performed By: #### C BC, BMP #### [place] [address] [place] Basophils/100 WBC (Bld) 1.0 % Normal . [facility] Comment on above: Performed By: #### C BC, BMP #### [place] [address] [place] Eosinophils (Bld) [#/Vol] 0.5 10*3/uL High 0.0-0.45 [facility] Comment on above: Performed By: #### C BC, BMP #### [place] [address] [place] Eosinophils/100 WBC (Bld) 6.0 % Normal . [facility] Comment on above: Performed By: #### C BC, BMP #### [address] Erythrocyte distribution width (RBC) [Ratio] 16.2 % High 12.0-14.8 [facility] Comment on above: Performed By: #### C BC, BMP #### [address] Hematocrit (Bld) [Volume fraction] 24.7 % Low 38.8-50.0 [facility] Comment on above: Performed By: #### C BC, BMP #### [address] Hemoglobin (Bld) [Mass/Vol] 8.1 g/dL Low 13.0-17.0 [facility] Comment on above: Performed By: #### C BC, BMP #### [address] Lymphocytes (Bld) [#/Vol] 1.5 10*3/uL Normal 1.00-4.8 [facility] Comment on above: Performed By: #### C BC, BMP #### [address] Lymphocytes/100 WBC (Bld) 18.5 % Normal . [facility] Comment on above: Performed By: #### C BC, BMP #### [address] MCH (RBC) [Entitic mass] 31.6 pg Normal 27.5-35.2 [facility] Comment on above: Performed By: #### C BC, BMP #### [address] MCV (RBC) [Entitic vol] 96.7 fL Normal 83.5-101 F [facility] Comment on above: Performed By: #### C BC, BMP #### [address] Mean Corpuscular HGB Conc 32.7 g/dL Normal 32.5-35.6 [facility] Comment on above: Performed By: #### C BC, BMP #### [facility] [address] [place] [address] [place] Monocytes (Bld) [#/Vol] 0.7 10*3/uL Normal 0.0-0.8 [facility] Comment on above: Performed By: #### C BC, BMP #### [facility] [address] [place] [address] [place] Monocytes/100 WBC (Bld) 8.7 % Normal . F [facility] Comment on above: Performed By: #### C BC, BMP #### [facility] [address] [place] [address] [place] Neutrophils (Bld) [#/Vol] 5.3 10*3/uL Normal 1.8-7.7 [facility] Comment on above: Performed By: #### C BC, BMP #### [facility] [address] [place] [address] [place] Neutrophils/100 WBC (Bld) 65.8 % Normal . [facility] Comment on above: Performed By: #### C BC, BMP #### [facility] [address] [place] [address] [place] Nucleated RBC/100 WBC (Bld) [Ratio] 0.1 % Normal 0-0.5 [facility] Comment on above: Performed By: #### C BC, BMP #### [facility] [address] [place] [address] [place] Platelet mean volume (Bld) [Entitic vol] 8.1 fL Normal 6.6-10.1 [facility] Comment on above: Performed By: #### C BC, BMP #### [facility] [address] [place] [address] [place] Platelets (Bld) [#/Vol] 358 10*3/uL Normal 150-450 [facility] Comment on above: Performed By: #### C BC, BMP #### [facility] [address] [place] [address] [place] RBC (Bld) [#/Vol] 2.55 10*6/uL Low 3.90-5.60 [facility] Comment on above: Performed By: #### C BC, BMP #### [facility] [address] [place] [address] [place] WBC (Bld) [#/Vol] 8.1 10*3/uL Normal 4.5-11.0 [facility] Comment on above: Performed By: #### C BC, BMP #### [facility] [address] [place] [address] [place] Glucose Glucometer (BldC) [M ass/Vol]Ordered By: Gordon Smith on 09-14-2022 Glucose [Mass/Vol] 97 mg/dL [facility] Comment on above: Random Glucose Refer ence Range is dependent on time and content of last meal. Glucose of more than 200 mg/dL in a nonstressed, ambulatory subject supports the diagnosis of Diabetes Mellitus. Glucose Poct Glucometerson 1 11-14-2021 Commemt1 Glu2: Cleaned Meter [facility] Comment on above: Performed By: #### G LULS #### Point of Care testing , Commemt2 WILL NOTIFY DR/RN [facility] Comment on above: Result Comment: PERF ORMED BY: [place] [address] PATHOLOGIST RIB BENDER XU TAPIA M.D. Performed By: #### G LULS #### Point of Care testing , Glucose [Mass/Vol] 97 mg/dL Normal [facility] Comment on above: Result Comment: [place] om Glucose Reference Range is dependent on time and content of last meal. Glucose of more than 200 mg/dL in a nonstressed, ambulatory subject supports the diagnosis of Diabetes Mellitus. Performed By: #### G LULS #### Point of Care testing , Commemt1 Glu2: Cleaned Meter [facility] Comment on above: Result Comment: PERF ORMED BY: [facility] [address] [place] [address] PATHOLOGIST RIB BENDER XU TAPIA M.D. Performed By: #### C MP, CBC, PAB #### [facility] [address] Glucose [Mass/Vol] 99 mg/dL Normal [facility] Comment on above: Result Comment: [facility] Glucose Reference Range is dependent on time and content of last meal. Glucose of more than 200 mg/dL in a nonstressed, ambulatory subject supports the diagnosis of Diabetes Mellitus. Performed By: #### C MP, CBC, PAB #### [facility] [address] No Panel InformationOrdered By: Gordon Smith on 09-14-2022 Bedside Glucose #[address]/rn [facility] Bedside Glucose Comment Glu2: cleaned meter [facility] Basic Metabolic Panelon 08-25 Anion gap [Moles/Vol] 9.3 mmol/L Normal 6.0-15.0 [facility] Comment on above: Performed By: #### G LULS #### Point of Care testing , Calcium [Mass/Vol] 7.9 mg/dL Low 8.2-10.2 [facility] Comment on above: Performed By: #### G LULS #### Point of Care testing , Chloride [Moles/Vol] 104 mmol/L Normal 95-114 [facility] Comment on above: Performed By: #### G LULS #### Point of Care testing , CO2 [Moles/Vol] 26.6 mmol/L Normal 22.0-30.0 [facility] Comment on above: Performed By: #### G LULS #### Point of Care testing , Creatinine [Mass/Vol] 0.84 mg/dL Normal 0.64-1.27 [facility] Comment on above: Performed By: #### G LULS #### Point of Care testing , Creatinine Clr Calc Pharmacy 97.66 [facility] Comment on above: Result Comment: PERF ORMED BY: [place] [address] PATHOLOGIST RIB BENDER XU TAPIA M.D. Performed By: #### G LULS #### Point of Care testing , Estimated GFR ( Marie > 60 Normal [facility] Comment on above: Result Comment: GFR estimated reference range: According to KDOQI guidelines, <60 ml/min/1.73m2 is sufficient to diagnose a patient with chronic kidney disease. Performed By: #### G LULS #### Point of Care testing , Estimated GFR (Non- Am > 60 Normal [facility] Comment on above: Performed By: #### G LULS #### Point of Care testing , Glucose [Mass/Vol] 90 mg/dL Normal 70-100 [facility] Comment on above: Result Comment: [place] Glucose Reference Range is dependent on time and content of last meal. Glucose of more than 200 mg/dL in a nonstressed, ambulatory subject supports the diagnosis of Diabetes Mellitus. ADA recommended reference range Performed By: #### G LULS #### Point of Care testing , Potassium [Moles/Vol] 3.9 mmol/L Normal 3.5-5.1 [facility] Comment on above: Performed By: #### G LULS #### Point of Care testing , Sodium [Moles/Vol] 136 mmol/L Normal 136-146 [facility] Comment on above: Performed By: #### G LULS #### Point of Care testing , Urea nitrogen [Mass/Vol] 11 mg/dL Normal 9-23 [facility] Comment on above: Performed By: #### G LULS #### Point of Care testing , Complete Blood Count Auto Di ffon 09-13-2022 Basophils (Bld) [#/Vol] 0.1 10*3/uL Normal 0.0-0.2 [facility] Comment on above: Result Comment: PERF ORMED BY: [facility] [address] [place] [address] PATHOLOGIST RIB BENDER XU TAPIA M.D. Performed By: #### G LULS #### Point of Care testing , Basophils/100 WBC (Bld) 1.1 % Normal . F [facility] Comment on above: Performed By: #### G LULS #### Point of Care testing , Eosinophils (Bld) [#/Vol] 0.4 10*3/uL Normal 0.0-0.45 [facility] Comment on above: Performed By: #### G USMAN #### Point of Care testing , Eosinophils/100 WBC (Bld) 5.5 % Normal . [facility] Comment on above: Performed By: #### G HUGOLS #### Point of Care testing , Erythrocyte distribution width (RBC) [Ratio] 15.9 % High 12.0-14.8 [facility] Comment on above: Performed By: #### G HUGOLS #### Point of Care testing , Hematocrit (Bld) [Volume fraction] 26.2 % Low 38.8-50.0 [facility] Comment on above: Performed By: #### G HUGOLS #### Point of Care testing , Hemoglobin (Bld) [Mass/Vol] 8.6 g/dL Low 13.0-17.0 [facility] Comment on above: Performed By: #### G HUGOLS #### Point of Care testing , Lymphocytes (Bld) [#/Vol] 1.7 10*3/uL Normal 1.00-4.8 [facility] Comment on above: Performed By: #### G HUGOLS #### Point of Care testing , Lymphocytes/100 WBC (Bld) 21.1 % Normal . [facility] Comment on above: Performed By: #### G HUGOLS #### Point of Care testing , MCH (RBC) [Entitic mass] 31.4 pg Normal 27.5-35.2 [facility] Comment on above: Performed By: #### G HUGOLS #### Point of Care testing , MCV (RBC) [Entitic vol] 95.6 fL Normal 83.5-101 F [facility] Comment on above: Performed By: #### G HUGOLS #### Point of Care testing , Mean Corpuscular HGB Conc 32.9 g/dL Normal 32.5-35.6 [facility] Comment on above: Performed By: #### G USMAN #### Point of Care testing , Monocytes (Bld) [#/Vol] 1.0 10*3/uL High 0.0-0.8 [facility] Comment on above: Performed By: #### G HUGOLS #### Point of Care testing , Monocytes/100 WBC (Bld) 12.0 % Normal . [facility] Comment on above: Performed By: #### G HUGOLS #### Point of Care testing , Neutrophils (Bld) [#/Vol] 4.9 10*3/uL Normal 1.8-7.7 [facility] Comment on above: Performed By: #### G LULS #### Point of Care testing , Neutrophils/100 WBC (Bld) 60.3 % Normal . [facility] Comment on above: Performed By: #### G LULS #### Point of Care testing , Nucleated RBC/100 WBC (Bld) [Ratio] 0.0 % Normal 0-0.5 [facility] Comment on above: Performed By: #### G HUGOLS #### Point of Care testing , Platelet mean volume (Bld) [Entitic vol] 8.4 fL Normal 6.6-10.1 [facility] Comment on above: Performed By: #### G USMAN #### Point of Care testing , Platelets (Bld) [#/Vol] 321 10*3/uL Normal 150-450 [facility] Comment on above: Performed By: #### G HUGOLS #### Point of Care testing , RBC (Bld) [#/Vol] 2.74 10*6/uL Low 3.90-5.60 [facility] Comment on above: Performed By: #### G LULS #### Point of Care testing , WBC (Bld) [#/Vol] 8.1 10*3/uL Normal 4.5-11.0 [facility] Comment on above: Performed By: #### G HUGOLS #### Point of Care testing , Glucose Poct Glucometerson 11-13-2021 Commemt1 [facility] Comment on above: Result Comment: Glu2 : WILL NOTIFY DR/RN Performed By: #### G LULS #### Point of Care testing , Commemt2 Cleaned Meter Normal [facility] Comment on above: Result Comment: PERF ORMED BY: [address] [place] [address] PATHOLOGIST RIB BENDER XU TAPIA M.D. Performed By: #### G LULS #### Point of Care testing , Glucose [Mass/Vol] 88 mg/dL Normal [facility] Comment on above: Result Comment: [place] om Glucose Reference Range is dependent on time and content of last meal. Glucose of more than 200 mg/dL in a nonstressed, ambulatory subject supports the diagnosis of Diabetes Mellitus. Performed By: #### G LULS #### Point of Care testing , Glucose [Mass/Vol] 99 mg/dL Normal [facility] Comment on above: Result Comment: [place] om Glucose Reference Range is dependent on time and content of last meal. Glucose of more than 200 mg/dL in a nonstressed, ambulatory subject supports the diagnosis of Diabetes Mellitus. PERFORMED BY: [address] [place] [address] PATHOLOGIST RIB BENDER XU TAPIA M.D. Performed By: #### G LULS #### Point of Care testing , Albumin [Mass/volume] in Ser um or PlasmaOrdered By: Gordon Smith on 09-12-2022 Albumin [Mass/Vol] 1.7 g/dL 3.2-5.5 [facility] Complete Blood Count Auto Di ffon 09-12-2022 Basophils (Bld) [#/Vol] 0.1 10*3/uL Normal 0.0-0.2 [facility] Comment on above: Result Comment: PERF ORMED BY: [address] [address] PATHOLOGIST RIB BENDER XU TAPIA M.D. Performed By: #### C MP, CBC, PAB #### [address] [address] [place] Basophils/100 WBC (Bld) 1.2 % Normal . [facility] Comment on above: Performed By: #### C MP, CBC, PAB #### [facility] [address] Eosinophils (Bld) [#/Vol] 0.3 10*3/uL Normal 0.0-0.45 [facility] Comment on above: Performed By: #### C MP, CBC, PAB #### [address] Eosinophils/100 WBC (Bld) 4.6 % Normal . [facility] Comment on above: Performed By: #### C MP, CBC, PAB #### [address] Erythrocyte distribution width (RBC) [Ratio] 15.9 % High 12.0-14.8 [facility] Comment on above: Performed By: #### C MP, CBC, PAB #### [address] Hematocrit (Bld) [Volume fraction] 23.6 % Low 38.8-50.0 [facility] Comment on above: Performed By: #### C MP, CBC, PAB #### [address] Hemoglobin (Bld) [Mass/Vol] 7.8 g/dL Low 13.0-17.0 [facility] Comment on above: Performed By: #### C MP, CBC, PAB #### [address] Lymphocytes (Bld) [#/Vol] 1.7 10*3/uL Normal 1.00-4.8 [facility] Comment on above: Performed By: #### C MP, CBC, PAB #### [place] [address] [place] Lymphocytes/100 WBC (Bld) 25.1 % Normal . [facility] Comment on above: Performed By: #### C MP, CBC, PAB #### [address] MCH (RBC) [Entitic mass] 31.3 pg Normal 27.5-35.2 [facility] Comment on above: Performed By: #### C MP, CBC, PAB #### [facility] [address] MCV (RBC) [Entitic vol] 94.6 fL Normal 83.5-101 F [facility] Comment on above: Performed By: #### C MP, CBC, PAB #### [facility] [address] Mean Corpuscular HGB Conc 33.1 g/dL Normal 32.5-35.6 [facility] Comment on above: Performed By: #### C MP, CBC, PAB #### [facility] [address] Monocytes (Bld) [#/Vol] 0.8 10*3/uL Normal 0.0-0.8 [facility] Comment on above: Performed By: #### C MP, CBC, PAB #### [facility] [address] Monocytes/100 WBC (Bld) 12.0 % Normal . [facility] Comment on above: Performed By: #### C MP, CBC, PAB #### [facility] [address] [place] [address] [place] Neutrophils (Bld) [#/Vol] 3.8 10*3/uL Normal 1.8-7.7 [facility] Comment on above: Performed By: #### C MP, CBC, PAB #### [facility] [address] [place] [address] [place] Neutrophils/100 WBC (Bld) 57.1 % Normal . [facility] Comment on above: Performed By: #### C MP, CBC, PAB #### [facility] [address] [place] [address] [place] Nucleated RBC/100 WBC (Bld) [Ratio] 0.0 % Normal 0-0.5 [facility] Comment on above: Performed By: #### C MP, CBC, PAB #### [facility] [address] Platelet mean volume (Bld) [Entitic vol] 8.6 fL Normal 6.6-10.1 [facility] Comment on above: Performed By: #### C MP, CBC, PAB #### [address] Platelets (Bld) [#/Vol] 280 10*3/uL Normal 150-450 [facility] Comment on above: Performed By: #### C MP, CBC, PAB #### [address] RBC (Bld) [#/Vol] 2.50 10*6/uL Low 3.90-5.60 [facility] Comment on above: Performed By: #### C MP, CBC, PAB #### [address] WBC (Bld) [#/Vol] 6.7 10*3/uL Normal 4.5-11.0 [facility] Comment on above: Performed By: #### C MP, CBC, PAB #### [address] Comprehensive Metabolic Pane carl 09-12-2022 Albumin [Mass/Vol] 1.7 g/dL Low 3.2-5.5 [facility] Comment on above: Performed By: #### C MP, CBC, PAB #### [address] Albumin/Globulin [Mass ratio] 0.8 {ratio} Normal [facility] Comment on above: Performed By: #### C MP, CBC, PAB #### [address] ALP [Catalytic activity/Vol] 58 U/L Normal 32-92 [facility] Comment on above: Performed By: #### C MP, CBC, PAB #### [address] ALT [Catalytic activity/Vol] 15 U/L Normal 10-60 [facility] Comment on above: Performed By: #### C MP, CBC, PAB #### [address] Anion gap [Moles/Vol] 6.7 mmol/L Normal 6.0-15.0 [facility] Comment on above: Performed By: #### C MP, CBC, PAB #### [facility] [address] AST [Catalytic activity/Vol] 13 U/L Normal 10-42 [facility] Comment on above: Performed By: #### C MP, CBC, PAB #### [facility] [address] Bilirubin [Mass/Vol] 1.5 mg/dL High 0.3-1.2 [facility] Comment on above: Result Comment: Samp les from patients who have taken Naproxen have shown spurious elevation in Total Bilirubin levels. A metabolite of Naproxen, O-desmethylnaproxen, has been shown to interfere with the Jendrassik-Grof method for measuring Total Bilirubin. Performed By: #### C MP, CBC, PAB #### [facility] [address] Calcium [Mass/Vol] 7.6 mg/dL Low 8.2-10.2 [facility] Comment on above: Performed By: #### C MP, CBC, PAB #### [facility] [address] Chloride [Moles/Vol] 105 mmol/L Normal 95-114 [facility] Comment on above: Performed By: #### C MP, CBC, PAB #### [facility] [address] CO2 [Moles/Vol] 30.2 mmol/L High 22.0-30.0 [facility] Comment on above: Performed By: #### C MP, CBC, PAB #### [facility] [address] [place] [id number] [place] Creatinine [Mass/Vol] 0.90 mg/dL Normal 0.64-1.27 [facility] Comment on above: Performed By: #### C MP, CBC, PAB #### [facility] [address] [place] [id number] [place] Creatinine Clr Calc Pharmacy 91.15 Normal [facility] Comment on above: Performed By: #### C MP, CBC, PAB #### [address] Estimated GFR ( Marie > 60 [facility] Comment on above: Result Comment: GFR estimated reference range: According to KDOQI guidelines, <60 ml/min/1.73m2 is sufficient to diagnose a patient with chronic kidney disease. Performed By: #### C MP, CBC, PAB #### [address] Estimated GFR (Non- Am > 60 [facility] Comment on above: Performed By: #### C MP, CBC, PAB #### [address] Globulin (S) [Mass/Vol] 2.2 g/dL Normal [facility] Comment on above: Performed By: #### C MP, CBC, PAB #### [address] Glucose [Mass/Vol] 84 mg/dL Normal 70-100 [facility] Comment on above: Result Comment: [place] Glucose Reference Range is dependent on time and content of last meal. Glucose of more than 200 mg/dL in a nonstressed, ambulatory subject supports the diagnosis of Diabetes Mellitus. ADA recommended reference range Performed By: #### C MP, CBC, PAB #### [address] Potassium [Moles/Vol] 3.9 mmol/L Normal 3.5-5.1 [facility] Comment on above: Performed By: #### C MP, CBC, PAB #### [address] Protein [Mass/Vol] 3.9 g/dL Low 6.1-7.9 [facility] Comment on above: Performed By: #### C MP, CBC, PAB #### [address] Sodium [Moles/Vol] 138 mmol/L Normal 136-146 [facility] Comment on above: Performed By: #### C MP, CBC, PAB #### [facility] [address] Urea nitrogen [Mass/Vol] 15 mg/dL Normal 07-16 [facility] Comment on above: Performed By: #### C MP, CBC, PAB #### [facility] [address] Globulin Calc (S) [Mass/Vol] Ordered By: Gordon Smith on 09-12-2022 Globulin (S) [Mass/Vol] 2.2 g/dL F [facility] Glucose Poct Glucometerson 1 11-12-2021 Commemt1 Glu2: Cleaned Meter Normal [facility] Comment on above: Result Comment: PERF ORMED BY: [place] [address] PATHOLOGIST RIB BENDER XU TAPIA M.D. Performed By: #### G USMAN #### Point of Care testing , Glucose [Mass/Vol] 135 mg/dL Normal [facility] Comment on above: Result Comment: [facility] Glucose Reference Range is dependent on time and content of last meal. Glucose of more than 200 mg/dL in a nonstressed, ambulatory subject supports the diagnosis of Diabetes Mellitus. Performed By: #### G LULS #### Point of Care testing , Glucose [Mass/Vol] 96 mg/dL Normal [facility] Comment on above: Result Comment: [facility] Glucose Reference Range is dependent on time and content of last meal. Glucose of more than 200 mg/dL in a nonstressed, ambulatory subject supports the diagnosis of Diabetes Mellitus. PERFORMED BY: [facility] [address] [place] [address] PATHOLOGIST RIB BENDER XU TAPIA M.D. Performed By: #### C MP, CBC, PAB #### [facility] [address] [place] [address] [place] Prealbuminon 09-12-2022 Prealbumin [Mass/Vol] 9.3 mg/dL Low 18.0-38.0 [facility] Comment on above: Result Comment: PERF ORMED BY: [facility] [address] [place] [address] PATHOLOGIST RIB BENDER XU TAPIA M.D. Performed By: #### C MP, CBC, PAB #### [facility] [address] Protein [Mass/volume] in Ser um or PlasmaOrdered By: Gordon Smith on 09-12-2022 Protein [Mass/Vol] 3.9 g/dL 6.1-7.9 [facility] Serum or plasma alanine lomax otransferase measurement without P-5'-P (enzymatic activiOrdered By: Gordon Smith on 09-12-2022 ALT No additional P-5'-P [Catalytic activity/Vol] 15 U/L 10-60 [facility] Serum or plasma albumin/glob ulin mass ratioOrdered By: Gordon Smith on 09-12-2022 Albumin/Globulin [Mass ratio] 0.8 {ratio} [facility] Serum or plasma alkaline alicia sphatase measurement (enzymatic activity/volume)Ordered By: Gordon Smith on 09-12-2022 ALP [Catalytic activity/Vol] 58 U/L 32-92 [facility] Serum or plasma aspartate am inotransferase measurement (enzymatic activity/volume)Ordered By: Gordon Smith on 09-12-2022 AST [Catalytic activity/Vol] 13 U/L 10-42 [facility] Serum or plasma prealbumin m easurement (mass/volume)Ordered By: Gordon Smith on 09-12-2022 Prealbumin [Mass/Vol] 9.3 mg/dL 18.0-38.0 [facility] Serum or plasma total biliru bin measurement (mass/volume)Ordered By: Gordon Smith on 09-12-2022 Bilirubin [Mass/Vol] 1.5 mg/dL 0.3-1.2 [facility] Comment on above: Samples from patient s who have taken Naproxen have shown spurious elevation in Total Bilirubin levels. A metabolite of Naproxen, O-desmethylnaproxen, has been shown to interfere with the Valeri-Brennan method for measuring Total Bilirubin. Glucose Poct Glucometerson 1 11-11-2021 Glucose [Mass/Vol] 90 mg/dL Normal [facility] Comment on above: Result Comment: [facility] Glucose Reference Range is dependent on time and content of last meal. Glucose of more than 200 mg/dL in a nonstressed, ambulatory subject supports the diagnosis of Diabetes Mellitus. PERFORMED BY: [facility] [place] [address] PATHOLOGIST RIB BENDER XU TAPIA M.D. Performed By: #### G LUBRIAN #### Point of Care testing , Basic Metab w/rfx [facility] 09-10 Anion gap [Moles/Vol] 5 mmol/L Low 9-17 [facility] Comment on above: Performed By: #### I OCAL, CDP, MG, LACTIC, ALICIA, BNP, BMP #### [address] [address] [place]: Bret Vazquez MD Performed By: #### CHRISTY MOJICA #### [address] [address] [place]: Bret Vazquez MD Calcium [Mass/Vol] 7.8 mg/dL Low 8.6-10.4 [facility] Comment on above: Performed By: #### I OCAL, CDP, MG, LACTIC, ALICIA, BNP, BMP #### [address] [address] [place]: Bret Vazquez MD Performed By: #### E CHRISTY LOPEZ #### [facility] [employer] [address] [place] [address] [place]: Bret Vazquez MD Chloride [Moles/Vol] 105 mmol/L Normal 98-107 [facility] Comment on above: Performed By: #### I OCAL, CDP, MG, LACTIC, ALICIA, BNP, BMP #### [address] [address] [place]: Bret Vazquez MD Performed By: #### E RTPChantelRANDOLPHLTEG #### [address] [address] [place]: Bret Vazquez MD CO2 [Moles/Vol] 24 mmol/L Normal 20-31 [facility] Comment on above: Performed By: #### I OCAL, CDP, MG, LACTIC, ALICIA, BNP, BMP #### [facility] [address] [place] [address] [place]: Bret Vazquez MD Performed By: #### E RTPKLARISSA GoldenEG #### [address] [address] [place]: Bret Vazquez MD Creatinine [Mass/Vol] 0.77 mg/dL Normal 0.70-1.20 [facility] Comment on above: Performed By: #### I OCAL, CDP, MG, LACTIC, ALICIA, BNP, BMP #### [address] [address] [place]: Bret Vazquez MD Performed By: #### E RTKLARISSA HIGGINSEG #### [address] [address] [place]: Bret Vazquez MD GFR/1.73 sq M.predicted among non-blacks MDRD (S/P/Bld) [Vol rate/Area] mL/min/{1.73_m2} Normal >60 [facility] Comment on above: Result Comment: Effective [...] CDP, MG, LACTIC, ALICIA, BNP, BMP #### [address] [address] [place]: Bret Vazquez MD Performed By: #### E RTCHRISTY HIGGINS #### [address] [address] [place]: Bret Vazquez MD Glucose [Mass/Vol] 85 mg/dL Normal 70-99 [facility] Comment on above: Performed By: #### I OCAL, CDP, MG, LACTIC, ALICIA, BNP, BMP #### [address] [address] [place]: Bret Vazquez MD Performed By: #### E RTCHRISTY HIGGINS #### [address] [address] [place]: Bret Vazquez MD Potassium [Moles/Vol] 4.4 mmol/L Normal 3.7-5.3 [facility] Comment on above: Performed By: #### I OCAL, CDP, MG, LACTIC, ALICIA, BNP, BMP #### [address] [address] [place]: Bret Vazquez MD Performed By: #### E RTCHRISTY HIGGINS #### [address] [address] [place]: Bret Vazquez MD Sodium [Moles/Vol] 134 mmol/L Low 135-144 [facility] Comment on above: Performed By: #### I OCAL, CDP, MG, LACTIC, ALICIA, BNP, BMP #### [address] [address] [place]: Bret Vazquez MD Performed By: #### E RTPFKLARISSAEG #### [address] [address] [place]: Bret Vazquez MD Urea nitrogen [Mass/Vol] 17 mg/dL Normal 8-23 [facility] Comment on above: Performed By: #### I OCAL, CDP, MG, LACTIC, ALICIA, BNP, BMP #### [address] [address] [place]: Bret Vazquez MD Performed By: #### Isidro RTCHRISTY HIGGINS #### [address] [address] [place]: Bret Vazquez MD CBC with Diffon 09-10-2022 Abs. Basophil 0.06 k/uL Normal 0.00-0.20 [facility] Comment on above: Performed By: #### I OCAL, CDP, MG, LACTIC, ALICIA, BNP, BMP #### [address] [address] [place]: Bret Vazquez MD Performed By: #### CHRISTY MOJICA #### [facility] [employer] [address] [place] [address] [place]: Bret Vazquez MD Abs.Imm.Granulocyte 0.04 k/uL Normal 0.00-0.30 [facility] Comment on above: Performed By: #### I OCAL, CDP, MG, LACTIC, ALICIA, BNP, BMP #### [address] [address] [place]: Bret Vazquez MD Performed By: #### E RTCHRISTY HIGGINS #### [facility] [employer] [address] [place] [address] [place]: Bret Vazquez MD Abs.Neutrophil (Seg) 3.45 k/uL Normal 1.50-8.10 [facility] Comment on above: Performed By: #### I OCAL, CDP, MG, LACTIC, ALICIA, BNP, BMP #### [facility] [employer] [address] [place] [address] [place]: Bret Vazquez MD Performed By: #### E RTPKLARISSA GoldenEG #### [address] [address] [place]: Bret Vazquez MD Basophils/100 WBC (Bld) 1 % Normal 0-2 M [facility] Comment on above: Performed By: #### I OCAL, CDP, MG, LACTIC, ALICIA, BNP, BMP #### [address] [address] [place]: Bret Vazquez MD Performed By: #### E RTPFKLARISSAEG #### [place] [address] [place]: Bret Vazquez MD Eosinophils (Bld) [#/Vol] 0.36 10*3/uL Normal 0.00-0.44 [facility] Comment on above: Performed By: #### I OCAL, CDP, MG, LACTIC, ALICIA, BNP, BMP #### [place] [address] [place]: Bret Vazquez MD Performed By: #### E RTCHRISTY HIGGINS #### [address] [address] [place]: Bret Vazquez MD Eosinophils/100 WBC (Bld) 6 % High 1-4 [facility] Comment on above: Performed By: #### I OCAL, CDP, MG, LACTIC, ALICIA, BNP, BMP #### [address] [address] [place]: Bret Vazquez MD Performed By: #### E RTPFKLARISSAEG #### [address] [address] [place]: Bret Vazquez MD Erythrocyte distribution width (RBC) [Ratio] 15.8 % High 11.8-14.4 [facility] Comment on above: Performed By: #### I OCAL, CDP, MG, LACTIC, ALICIA, BNP, BMP #### [address] [address] [place]: Bret Vazquez MD Performed By: #### E RTCHRISTY HIGGINS #### [address] [address] [place]: Bret Vazquez MD Hematocrit (Bld) [Volume fraction] 25.2 % Low 40.7-50.3 [facility] Comment on above: Performed By: #### I OCAL, CDP, MG, LACTIC, ALICIA, BNP, BMP #### [facility] [employer] [address] [place] [address] [place]: Bret Vazquez MD Performed By: #### E RTCHRISTY HIGGINS #### [address] [address] [place]: Bret Vazquez MD Hemoglobin (Bld) [Mass/Vol] 7.6 g/dL Low 13.0-17.0 [facility] Comment on above: Performed By: #### I OCAL, CDP, MG, LACTIC, ALICIA, BNP, BMP #### [address] [address] [place]: Bret Vazquez MD Performed By: #### E RTCHRISTY HIGGINS #### [facility] [employer] [address] [place] [address] [place]: Bret Vazquez MD Immature granulocytes/100 WBC (Bld) 1 % High 0 [facility] Comment on above: Performed By: #### I OCAL, CDP, MG, LACTIC, ALICIA, BNP, BMP #### [facility] [employer] [address] [place] [address] [place]: Bret Vazquez MD Performed By: #### E RTPF, GHLTEG #### [address] [address] [place]: Bret Vazquez MD Lymphocytes (Bld) [#/Vol] 2.01 10*3/uL Normal 1.10-3.70 [facility] Comment on above: Performed By: #### I OCAL, CDP, MG, LACTIC, ALICIA, BNP, BMP #### [address] [address] [place]: Bret Vazquez MD Performed By: #### E RTKLARISSA HIGGINSEG #### [address] [address] [place]: Bret Vazquez MD Lymphocytes/100 WBC (Bld) 31 % Normal 24-43 [facility] Comment on above: Performed By: #### I OCAL, CDP, MG, LACTIC, ALICIA, BNP, BMP #### [address] [address] [place]: Bret Vazquez MD Performed By: #### E RTCHRISTY HIGGINS #### [address] [address] [place]: Bret Vazquez MD MCH (RBC) [Entitic mass] 31.7 pg Normal 25.2-33.5 [facility] Comment on above: Performed By: #### I OCAL, CDP, MG, LACTIC, ALICIA, BNP, BMP #### [address] [address] [place]: Bret Vazquez MD Performed By: #### E RTKLARISSA HIGGINSEG #### [address] [address] [place]: Bret Vazquez MD MCHC (RBC) [Mass/Vol] 30.2 g/dL Normal 28.4-34.8 [facility] Comment on above: Performed By: #### I OCAL, CDP, MG, LACTIC, ALICIA, BNP, BMP #### [facility] [employer] [address] [place] [address] [place]: Bret Vazquez MD Performed By: #### E RTPKLARISSA GoldenEG #### [address] [address] [place]: Bret Vazquez MD MCV (RBC) [Entitic vol] 105.0 fL High 82.6-102.9 M [facility] Comment on above: Performed By: #### I OCAL, CDP, MG, LACTIC, ALICIA, BNP, BMP #### [address] [address] [place]: Bret Vazquez MD Performed By: #### E RTKLARISSA HIGGINSEG #### [place] [address] [place]: Bret Vazquez MD Monocytes (Bld) [#/Vol] 0.62 10*3/uL Normal 0.10-1.20 [facility] Comment on above: Performed By: #### I OCAL, CDP, MG, LACTIC, ALICIA, BNP, BMP #### [address] [address] [place]: Bret Vazquez MD Performed By: #### E RTCHRISTY HIGGINS #### [facility] [employer] [address] [place] [address] [place]: Bret Vazquez MD Monocytes/100 WBC (Bld) 10 % Normal 3-12 M [facility] Comment on above: Performed By: #### I OCAL, CDP, MG, LACTIC, ALICIA, BNP, BMP #### [facility] [employer] [address] [place] [address] [place]: Bret Vazquez MD Performed By: #### E RTCHRISTY HIGGINS #### [address] [address] [place]: Bret Vazquez MD Neutrophil (Seg) 53 % Normal 36-65 [facility] Comment on above: Performed By: #### I OCAL, CDP, MG, LACTIC, ALICIA, BNP, BMP #### [address] [address] [place]: Bret Vazquez MD Performed By: #### E RTPF GHLTEG #### [address] [address] [place]: Bret Vazquez MD NRBC Automated 0.0 per 100 WBC Normal 0.0 [facility] Comment on above: Performed By: #### I OCAL, CDP, MG, LACTIC, ALICIA, BNP, BMP #### [address] [address] [place]: Bret Vazquez MD Performed By: #### E RTPFKLARISSAEG #### [address] [address] [place]: Bret Vazquez MD Platelet mean volume (Bld) [Entitic vol] 10.3 fL Normal 8.1-13.5 [facility] Comment on above: Performed By: #### I OCAL, CDP, MG, LACTIC, ALICIA, BNP, BMP #### [address] [address] [place]: Bret Vazquez MD Performed By: #### E RTPFRANDOLPHLTFATOU #### [address] [address] [place]: Bret Vazquez MD Platelets (Bld) [#/Vol] 245 10*3/uL Normal 138-453 [facility] Comment on above: Performed By: #### I OCAL, CDP, MG, LACTIC, ALICIA, BNP, BMP #### [address] [address] [place]: Bret Vazquez MD Performed By: #### E RTKLARISSA HIGGINSEG #### [address] [address] [place]: Bret Vazquez MD RBC (Bld) [#/Vol] 2.40 10*6/uL Low 4.21-5.77 [facility] Comment on above: Performed By: #### I OCAL, CDP, MG, LACTIC, ALICIA, BNP, BMP #### [address] [address] [place]: Bret Vazquez MD Performed By: #### E RTKLARISSA HIGGINSEG #### [address] [address] [place]: Bret Vazquez MD RBC morphology finding Nom (Bld) ANISOCYTOSIS PRESENT Normal [facility] Comment on above: Result Comment: MACR OCYTOSIS PRESENT Performed By: #### I OCAL, CDP, MG, LACTIC, ALICIA, BNP, BMP #### [address] [address] [place]: Bret Vazquez MD Performed By: #### E RTKLARISSA HIGGINSEG #### [address] [address] [place]: Bret Vazquez MD WBC (Bld) [#/Vol] 6.5 10*3/uL Normal 3.5-11.3 [facility] Comment on above: Performed By: #### I OCAL, CDP, MG, LACTIC, ALICIA, BNP, BMP #### [address] [address] [place]: Bret Vazquez MD Performed By: #### E RTPFRANDOLPHLTEG #### [facility] [employer] [address] [place] [address] [place]: Bret aVzquez MD Basic Metab w/rfx MGon 09-09 Anion gap [Moles/Vol] 6 mmol/L Low 9-17 [facility] Comment on above: Performed By: #### B MPX, CDP #### [facility] [employer] [address] [place] [address] [place]: Bret Vazquez MD Performed By: #### E RTPF, CK, ECENZ, VD25 #### [facility] [employer] [address] [place] [address] [place]: Bret Vaqzuez MD Calcium [Mass/Vol] 7.5 mg/dL Low 8.6-10.4 [facility] Comment on above: Performed By: #### B MPX, CDP #### [facility] [employer] [address] [place] [address] [place]: Bret Vazquez MD Performed By: #### E RTPF, CK, ECENZ, VD25 #### [facility] [employer] [address] [place] [address] [place]: Bret Vazquez MD Chloride [Moles/Vol] 109 mmol/L High 98-107 [facility] Comment on above: Performed By: #### B MPX, CDP #### [facility] [employer] [address] [place] [address] [place]: Bret Vazquez MD Performed By: #### E RTPF, CK, ECENZ, VD25 #### [facility] [employer] [address] [place] [address] [place]: Bret Vazquez MD CO2 [Moles/Vol] 25 mmol/L Normal 20-31 [facility] Comment on above: Performed By: #### B MPX, CDP #### [facility] [employer] [address] [place] [address] [place]: Bret Vazquez MD Performed By: #### E RTPF, CK, ECENZ, VD25 #### [address] [address] [place]: Bret Vazquez MD Creatinine [Mass/Vol] 0.63 mg/dL Low 0.70-1.20 [facility] Comment on above: Performed By: #### B MPX, CDP #### [address] [address] [place]: Bret Vazquez MD Performed By: #### E RTPF, CK, ECENZ, VD25 #### [address] [address] [place]: Bret Vazquez MD GFR/1.73 sq M.predicted among non-blacks MDRD (S/P/Bld) [Vol rate/Area] mL/min/{1.73_m2} Normal >60 [facility] Comment on above: Result Comment: Effective [...] Performed By: #### B MPX, CDP #### [address] [address] [place]: Bret Vazquez MD Performed By: #### E RTPF, CK, ECENZ, VD25 #### [facility] [employer] [address] [place] [address] [place]: Bret Vazquez MD Glucose [Mass/Vol] 88 mg/dL Normal 70-99 [facility] Comment on above: Performed By: #### B MPX, CDP #### [facility] [employer] [address] [place] [address] [place]: Bret Vazquez MD Performed By: #### E RTPF, CK, ECENZ, VD25 #### [address] [address] [place]: Bret Vazquez MD Potassium [Moles/Vol] 4.3 mmol/L Normal 3.7-5.3 [facility] Comment on above: Performed By: #### B MPX, CDP #### [facility] [employer] [address] [place] [address] [place]: Bret Vazquez MD Performed By: #### E RTPF, CK, ECENZ, VD25 #### [address] [address] [place]: Bret Vazquez MD Sodium [Moles/Vol] 140 mmol/L Normal 135-144 [facility] Comment on above: Performed By: #### B MPX, CDP #### [address] [address] [place]: Bret Vazquez MD Performed By: #### E RTPF CK, ECENZ, VD25 #### [address] [address] [place]: Bret Vazquez MD Urea nitrogen [Mass/Vol] 16 mg/dL Normal 8-23 [facility] Comment on above: Performed By: #### B MPX, CDP #### [address] [address] [place]: Bret Vazquez MD Performed By: #### E RTPF, CK, ECENZ, VD25 #### [facility] [employer] [address] [place] [address] [place]: Bret Vazquez MD CBC with Diffon 09-09-2022 Abs. Basophil 0.09 k/uL Normal 0.00-0.20 [facility] Comment on above: Performed By: #### B MPX, CDP #### [address] [address] [place]: Bret Vazquez MD Performed By: #### E RTPF, CK, ECENZ, VD25 #### [address] [address] [place]: Bret Vazquez MD Abs.Imm.Granulocyte 0.03 k/uL Normal 0.00-0.30 [facility] Comment on above: Performed By: #### B MPX, CDP #### [place] [address] [place]: Bret Vazquez MD Performed By: #### E RTPF, CK, ECENZ, VD25 #### [place] [address] [place]: Bret Vazquez MD Abs.Neutrophil (Seg) 4.61 k/uL Normal 1.50-8.10 [facility] Comment on above: Performed By: #### B MPX, CDP #### [place] [address] [place]: Bret Vazquez MD Performed By: #### E RTPF, CK, ECENZ, VD25 #### [place] [address] [place]: Bret Vazquez MD Basophils/100 WBC (Bld) 1 % Normal 0-2 M [facility] Comment on above: Performed By: #### B MPX, CDP #### [place] [address] [place]: Bret Vazquez MD Performed By: #### E RTPF, CK, ECENZ, VD25 #### [place] [address] [place]: Bret Vazquez MD Eosinophils (Bld) [#/Vol] 0.40 10*3/uL Normal 0.00-0.44 [facility] Comment on above: Performed By: #### B MPX, CDP #### [facility] [employer] [address] [place] [address] [place]: Bret Vazquez MD Performed By: #### E RTPF, CK, ECENZ, VD25 #### [facility] [employer] [address] [place] [address] [place]: Bret Vazquez MD Eosinophils/100 WBC (Bld) 5 % High 1-4 [facility] Comment on above: Performed By: #### B MPX, CDP #### [facility] [employer] [address] [place] [address] [place]: Bret Vazquez MD Performed By: #### E RTPF, CK, ECENZ, VD25 #### [facility] [employer] [address] [place] [address] [place]: Bret Vazquez MD Erythrocyte distribution width (RBC) [Ratio] 16.2 % High 11.8-14.4 [facility] Comment on above: Performed By: #### B MPX, CDP #### [facility] [employer] [address] [place] [address] [place]: Bret Vazquez MD Performed By: #### E RTPF, CK, ECENZ, VD25 #### [facility] [address] [place] [address] [place]: Bret Vazquez MD Hematocrit (Bld) [Volume fraction] 22.3 % Low 40.7-50.3 [facility] Comment on above: Performed By: #### B MPX, CDP #### [facility] [employer] [address] [place] [address] [place]: Bret Vazquez MD Performed By: #### E RTPF, CK, ECENZ, VD25 #### [facility] [employer] [address] [place] [address] [place]: Bret Vazquez MD Hemoglobin (Bld) [Mass/Vol] 7.5 g/dL Low 13.0-17.0 [facility] Comment on above: Performed By: #### B MPX, CDP #### [facility] [employer] [address] [place] [address] [place]: Bret Vazquez MD Performed By: #### E RTPF, CK, ECENZ, VD25 #### [facility] [employer] [address] [place] [address] [place]: Bret Vazquez MD Immature granulocytes/100 WBC (Bld) 0 % Normal 0 [facility] Comment on above: Performed By: #### B MPX, CDP #### [address] [address] [place]: Bret Vazquez MD Performed By: #### E RTPF, CK, ECENZ, VD25 #### [address] [address] [place]: Bret Vazquez MD Lymphocytes (Bld) [#/Vol] 1.88 10*3/uL Normal 1.10-3.70 [facility] Comment on above: Performed By: #### B MPX, CDP #### [facility] [employer] [address] [place] [address] [place]: Bret Vazquez MD Performed By: #### E RTPF, CK, ECENZ, VD25 #### [facility] [employer] [address] [place] [address] [place]: Bret Vazquez MD Lymphocytes/100 WBC (Bld) 24 % Normal 24-43 [facility] Comment on above: Performed By: #### B MPX, CDP #### [address] [address] [place]: Bret Vazquez MD Performed By: #### E RTPF, CK, ECENZ, VD25 #### [address] [address] [place]: Bret Vazquez MD MCH (RBC) [Entitic mass] 31.8 pg Normal 25.2-33.5 [facility] Comment on above: Performed By: #### B MPX, CDP #### [address] [address] [place]: Bret Vazquez MD Performed By: #### E RTPF, CK, ECENZ, VD25 #### [address] [address] [place]: Bret Vazquez MD MCHC (RBC) [Mass/Vol] 33.6 g/dL Normal 28.4-34.8 [facility] Comment on above: Performed By: #### B MPX, CDP #### [address] [address] [place]: Bret Vazquez MD Performed By: #### E RTPF, CK, ECENZ, VD25 #### [address] [address] [place]: rBet Vazquez MD MCV (RBC) [Entitic vol] 94.5 fL Normal 82.6-102.9 M [facility] Comment on above: Performed By: #### B MPX, CDP #### [address] [address] [place]: Bret Vazquez MD Performed By: #### E RTPF, CK, ECENZ, VD25 #### [address] [address] [place]: Bret Vazquez MD Monocytes (Bld) [#/Vol] 0.84 10*3/uL Normal 0.10-1.20 [facility] Comment on above: Performed By: #### B MPX, CDP #### [address] [address] [place]: Bret Vazquez MD Performed By: #### E RTPF, CK, ECENZ, VD25 #### [address] [address] [place]: Bret Vazquez MD Monocytes/100 WBC (Bld) 11 % Normal 3-12 M [facility] Comment on above: Performed By: #### B MPX, CDP #### [address] [address] [place]: Bret Vazquez MD Performed By: #### E RTPF, CK, ECENZ, VD25 #### [address] [address] [place]: Bret Vazquez MD Neutrophil (Seg) 59 % Normal 36-65 [facility] Comment on above: Performed By: #### B MPX, CDP #### [address] [address] [place]: Bret Vazquez MD Performed By: #### E RTPF, CK, ECENZ, VD25 #### [address] [address] [place]: Bret Vazquez MD NRBC Automated 0.0 per 100 WBC Normal 0.0 [facility] Comment on above: Performed By: #### B MPX, CDP #### [address] [address] [place]: Bret Vazquez MD Performed By: #### E RTPF, CK, ECENZ, VD25 #### [address] [address] [place]: Bret Vazquez MD Platelet mean volume (Bld) [Entitic vol] 10.5 fL Normal 8.1-13.5 [facility] Comment on above: Performed By: #### B MPX, CDP #### [address] [address] [place]: Bret Vazquez MD Performed By: #### E RTPF, CK, ECENZ, VD25 #### [address] [address] [place]: Bret Vazquez MD Platelets (Bld) [#/Vol] 185 10*3/uL Normal 138-453 [facility] Comment on above: Performed By: #### B MPX, CDP #### [address] [address] [place]: Bret Vazquez MD Performed By: #### E RTPF, CK, ECENZ, VD25 #### [address] [address] [place]: Bret Vazquez MD RBC (Bld) [#/Vol] 2.36 10*6/uL Low 4.21-5.77 [facility] Comment on above: Performed By: #### B MPX, CDP #### [address] [address] [place]: Bret Vazquez MD Performed By: #### E RTPF, CK, ECENZ, VD25 #### [address] [address] [place]: Bret Vazquez MD RBC morphology finding Nom (Bld) ANISOCYTOSIS PRESENT Normal [facility] Comment on above: Performed By: #### B MPX, CDP #### [address] [address] [place]: Bret Vazquez MD Performed By: #### E RTPF, CK, ECENZ, VD25 #### [address] [address] [place]: Bret Vazquez MD WBC (Bld) [#/Vol] 7.9 10*3/uL Normal 3.5-11.3 [facility] Comment on above: Performed By: #### B MPX, CDP #### [address] [address] [place]: Bret Vazquez MD Performed By: #### E RTPF, CK, ECENZ, VD25 #### [address] [address] [place]: Bret Vazquez MD Basic Metab w/rfx MGon 09-08 Anion gap [Moles/Vol] 4 mmol/L Low 9-17 [facility] Comment on above: Performed By: #### I OCAL, CDP, MG, LACTIC, ALICIA, BNP, BMP #### [address] [address] [place]: Bret Vazquez MD Performed By: #### E RTPF, CK, ECENZ, VD25 #### [address] [address] [place]: Bret Vazquez MD Calcium [Mass/Vol] 7.5 mg/dL Low 8.6-10.4 [facility] Comment on above: Performed By: #### I OCAL, CDP, MG, LACTIC, ALICIA, BNP, BMP #### [address] [address] [place]: Bret Vazquez MD Performed By: #### E RTPF, CK, ECENZ, VD25 #### [address] [address] [place]: Bret Vazquez MD Chloride [Moles/Vol] 105 mmol/L Normal 98-107 [facility] Comment on above: Performed By: #### I OCAL, CDP, MG, LACTIC, ALICIA, BNP, BMP #### [address] [address] [place]: Bret Vazquez MD Performed By: #### E RTPF, CK, ECENZ, VD25 #### [address] [address] [place]: Bret Vazquez MD CO2 [Moles/Vol] 26 mmol/L Normal 20-31 [facility] Comment on above: Performed By: #### I OCAL, CDP, MG, LACTIC, ALICIA, BNP, BMP #### [address] [address] [place]: Bret Vazquez MD Performed By: #### E RTPF, CK, ECENZ, VD25 #### [address] [address] [place]: Bret Vazquez MD Creatinine [Mass/Vol] 0.80 mg/dL Normal 0.70-1.20 [facility] Comment on above: Performed By: #### I OCAL, CDP, MG, LACTIC, ALICIA, BNP, BMP #### [address] [address] [place]: Bret Vazquez MD Performed By: #### E RTPF, CK, ECENZ, VD25 #### [address] [address] [place]: Bret Vazquez MD GFR/1.73 sq M.predicted among non-blacks MDRD (S/P/Bld) [Vol rate/Area] mL/min/{1.73_m2} Normal >60 [facility] Comment on above: Result Comment: Effective [...] CDP, MG, LACTIC, ALICIA, BNP, BMP #### [address] [address] [place]: Bret Vazquez MD Performed By: #### E RTPF, CK, ECENZ, VD25 #### [address] [address] [place]: Bret Vazquez MD Glucose [Mass/Vol] 93 mg/dL Normal 70-99 [facility] Comment on above: Performed By: #### I OCAL, CDP, MG, LACTIC, ALICIA, BNP, BMP #### [address] [address] [place]: Bret Vazquez MD Performed By: #### E RTPF, CK, ECENZ, VD25 #### [address] [address] [place]: Bret Vazquez MD Potassium [Moles/Vol] 4.5 mmol/L Normal 3.7-5.3 [facility] Comment on above: Performed By: #### I OCAL, CDP, MG, LACTIC, ALICIA, BNP, BMP #### [address] [address] [place]: Bret Vazquez MD Performed By: #### E RTPF, CK, ECENZ, VD25 #### [address] [address] [place]: Bret Vazquez MD Sodium [Moles/Vol] 135 mmol/L Normal 135-144 [facility] Comment on above: Performed By: #### I OCAL, CDP, MG, LACTIC, ALICIA, BNP, BMP #### [address] [address] [place]: Bret Vazquez MD Performed By: #### E RTPF, CK, ECENZ, VD25 #### [address] [address] [place]: Bret Vazquez MD Urea nitrogen [Mass/Vol] 16 mg/dL Normal 8-23 [facility] Comment on above: Performed By: #### I OCAL, CDP, MG, LACTIC, ALICIA, BNP, BMP #### [place] [address] [place]: Bret Vazquez MD Performed By: #### E RTPF, CK, ECENZ, VD25 #### [place] [address] [place]: Bret Vazquez MD CBC with Diffon 09-08-2022 Abs. Basophil 0.04 k/uL Normal 0.00-0.20 [facility] Comment on above: Performed By: #### I OCAL, CDP, MG, LACTIC, ALICIA, BNP, BMP #### [place] [address] [place]: Bret Vazquez MD Performed By: #### E RTPF, CK, ECENZ, VD25 #### [facility] [employer] [address] [place] [address] [place]: Bret Vazquez MD Abs.Imm.Granulocyte 0.03 k/uL Normal 0.00-0.30 [facility] Comment on above: Performed By: #### I OCAL, CDP, MG, LACTIC, ALICIA, BNP, BMP #### [facility] [employer] [address] [place] [address] [place]: Bret Vazquez MD Performed By: #### E RTPF, CK, ECENZ, VD25 #### [address] [address] [place]: Bret Vazquez MD Abs.Neutrophil (Seg) 4.96 k/uL Normal 1.50-8.10 [facility] Comment on above: Performed By: #### I OCAL, CDP, MG, LACTIC, ALICIA, BNP, BMP #### [address] [address] [place]: Bret Vazquez MD Performed By: #### E RTPF, CK, ECENZ, VD25 #### [place] [address] [place]: Bret Vazquez MD Basophils/100 WBC (Bld) 1 % Normal 0-2 M [facility] Comment on above: Performed By: #### I OCAL, CDP, MG, LACTIC, ALICIA, BNP, BMP #### [place] [address] [place]: Bret Vazquez MD Performed By: #### E RTPF, CK, ECENZ, VD25 #### [place] [address] [place]: Bret Vazquez MD Eosinophils (Bld) [#/Vol] 0.21 10*3/uL Normal 0.00-0.44 [facility] Comment on above: Performed By: #### I OCAL, CDP, MG, LACTIC, ALICIA, BNP, BMP #### [address] [address] [place]: Bret Vazquez MD Performed By: #### E RTPF, CK, ECENZ, VD25 #### [address] [address] [place]: Bret Vazquez MD Eosinophils/100 WBC (Bld) 3 % Normal 1-4 [facility] Comment on above: Performed By: #### I OCAL, CDP, MG, LACTIC, ALICIA, BNP, BMP #### [address] [address] [place]: Bret Vazquez MD Performed By: #### E RTPF, CK, ECENZ, VD25 #### [facility] [employer] [address] [place] [address] [place]: Bret Vazquez MD Erythrocyte distribution width (RBC) [Ratio] 16.4 % High 11.8-14.4 [facility] Comment on above: Performed By: #### I OCAL, CDP, MG, LACTIC, ALICIA, BNP, BMP #### [facility] [employer] [address] [place] [address] [place]: Bret Vazquez MD Performed By: #### E RTPF, CK, ECENZ, VD25 #### [facility] [employer] [address] [place] [address] [place]: Bret Vazquez MD Hematocrit (Bld) [Volume fraction] 22.9 % Low 40.7-50.3 [facility] Comment on above: Performed By: #### I OCAL, CDP, MG, LACTIC, ALICIA, BNP, BMP #### [facility] [employer] [address] [place] [address] [place]: Bret Vazquez MD Performed By: #### E RTPF, CK, ECENZ, VD25 #### [facility] [employer] [address] [place] [address] [place]: Bret Vazquez MD Hemoglobin (Bld) [Mass/Vol] 7.5 g/dL Low 13.0-17.0 [facility] Comment on above: Performed By: #### I OCAL, CDP, MG, LACTIC, ALICIA, BNP, BMP #### [facility] [employer] [address] [place] [address] [place]: Bret Vazquez MD Performed By: #### E RTPF, CK, ECENZ, VD25 #### [address] [address] [place]: Bret Vazquez MD Immature granulocytes/100 WBC (Bld) 0 % Normal 0 [facility] Comment on above: Performed By: #### I OCAL, CDP, MG, LACTIC, ALICIA, BNP, BMP #### [address] [address] [place]: Bret Vazquez MD Performed By: #### E RTPF, CK, ECENZ, VD25 #### [place] [address] [place]: Bret Vazquez MD Lymphocytes (Bld) [#/Vol] 1.39 10*3/uL Normal 1.10-3.70 [facility] Comment on above: Performed By: #### I OCAL, CDP, MG, LACTIC, ALICIA, BNP, BMP #### [place] [address] [place]: Bret Vazquez MD Performed By: #### E RTPF, CK, ECENZ, VD25 #### [address] [address] [place]: Bret Vazquez MD Lymphocytes/100 WBC (Bld) 19 % Low 24-43 [facility] Comment on above: Performed By: #### I OCAL, CDP, MG, LACTIC, ALICIA, BNP, BMP #### [place] [address] [place]: Bret Vazquez MD Performed By: #### E RTPF, CK, ECENZ, VD25 #### [address] [address] [place]: Bret Vazquez MD MCH (RBC) [Entitic mass] 31.4 pg Normal 25.2-33.5 [facility] Comment on above: Performed By: #### I OCAL, CDP, MG, LACTIC, ALICIA, BNP, BMP #### [address] [address] [place]: Bret Vazquez MD Performed By: #### E RTPF, CK, ECENZ, VD25 #### [address] [address] [place]: Bret Vazquez MD MCHC (RBC) [Mass/Vol] 32.8 g/dL Normal 28.4-34.8 [facility] Comment on above: Performed By: #### I OCAL, CDP, MG, LACTIC, ALICIA, BNP, BMP #### [address] [address] [place]: Bret Vazquez MD Performed By: #### E RTPF, CK, ECENZ, VD25 #### [address] [address] [place]: Bret Vazquez MD MCV (RBC) [Entitic vol] 95.8 fL Normal 82.6-102.9 M [facility] Comment on above: Performed By: #### I OCAL, CDP, MG, LACTIC, ALICIA, BNP, BMP #### [address] [address] [place]: Bret Vazquez MD Performed By: #### E RTPF, CK, ECENZ, VD25 #### [address] [address] [place]: Bret Vazquez MD Monocytes (Bld) [#/Vol] 0.88 10*3/uL Normal 0.10-1.20 [facility] Comment on above: Performed By: #### I OCAL, CDP, MG, LACTIC, ALICIA, BNP, BMP #### [address] [address] [place]: Bret Vazquez MD Performed By: #### E RTPF, CK, ECENZ, VD25 #### [address] [address] [place]: Bret Vazquez MD Monocytes/100 WBC (Bld) 12 % Normal 3-12 M [facility] Comment on above: Performed By: #### I OCAL, CDP, MG, LACTIC, ALICIA, BNP, BMP #### [address] [address] [place]: Bret Vazquez MD Performed By: #### E RTPF, CK, ECENZ, VD25 #### [address] [address] [place]: Bret Vazquez MD Neutrophil (Seg) 66 % High 36-65 [facility] Comment on above: Performed By: #### I OCAL, CDP, MG, LACTIC, ALICIA, BNP, BMP #### [address] [address] [place]: Bret Vazquez MD Performed By: #### E RTPF, CK, ECENZ, VD25 #### [address] [address] [place]: Bret Vazquez MD NRBC Automated 0.0 per 100 WBC Normal 0.0 [facility] Comment on above: Performed By: #### I OCAL, CDP, MG, LACTIC, ALICIA, BNP, BMP #### [address] [address] [place]: Bret Vazquez MD Performed By: #### E RTPF, CK, ECENZ, VD25 #### [address] [address] [place]: Bret Vazquez MD Platelet mean volume (Bld) [Entitic vol] 10.8 fL Normal 8.1-13.5 [facility] Comment on above: Performed By: #### I OCAL, CDP, MG, LACTIC, ALICIA, BNP, BMP #### [address] [address] [place]: Bret Vazquez MD Performed By: #### E RTPF, CK, ECENZ, VD25 #### [address] [address] [place]: Bret Vazquez MD Platelets (Bld) [#/Vol] 162 10*3/uL Normal 138-453 [facility] Comment on above: Performed By: #### I OCAL, CDP, MG, LACTIC, ALICIA, BNP, BMP #### [address] [address] [place]: Bret Vazquez MD Performed By: #### E RTPF, CK, ECENZ, VD25 #### [address] [address] [place]: Bret Vazquez MD RBC (Bld) [#/Vol] 2.39 10*6/uL Low 4.21-5.77 [facility] Comment on above: Performed By: #### I OCAL, CDP, MG, LACTIC, ALICIA, BNP, BMP #### [facility] [employer] [address] [place] [address] [place]: Bret Vazquez MD Performed By: #### E RTPF, CK, ECENZ, VD25 #### [facility] [employer] [address] [place] [address] [place]: Bret Vazquez MD RBC morphology finding Nom (Bld) ANISOCYTOSIS PRESENT Normal [facility] Comment on above: Performed By: #### I OCAL, CDP, MG, LACTIC, ALICIA, BNP, BMP #### [address] [address] [place]: Bret Vazquez MD Performed By: #### E RTPF, CK, ECENZ, VD25 #### [address] [address] [place]: Bret Vazquez MD WBC (Bld) [#/Vol] 7.5 10*3/uL Normal 3.5-11.3 [facility] Comment on above: Performed By: #### I OCAL, CDP, MG, LACTIC, ALICIA, BNP, BMP #### [address] [address] [place]: Bret Vazuqez MD Performed By: #### E RTPF, CK, ECENZ, VD25 #### [address] [address] [place]: Bret Vazquez MD Magnesiumon 09-08-2022 Magnesium [Mass/Vol] 1.9 mg/dL Normal 1.6-2.6 [facility] Comment on above: Performed By: #### I OCAL, CDP, MG, LACTIC, ALICIA, BNP, BMP #### [address] [address] [place]: Bret Vazquez MD Performed By: #### E RTPF CK, ECENZ, VD25 #### [address] [address] [place]: Bret Vazquez MD Basic Metab w/rfx MGon 09-07 Anion gap [Moles/Vol] 7 mmol/L Low 9-17 [facility] Comment on above: Performed By: #### I OCAL, CDP, MG, LACTIC, ALICIA, BNP, BMP #### [address] [address] [place]: Bret Vazquez MD Performed By: #### E RTPF, CK, ECENZ, VD25 #### [address] [address] [place]: Bret Vazquez MD Calcium [Mass/Vol] 7.7 mg/dL Low 8.6-10.4 [facility] Comment on above: Performed By: #### I OCAL, CDP, MG, LACTIC, ALICIA, BNP, BMP #### [address] [address] [place]: Bret Vazquez MD Performed By: #### E RTPF, CK, ECENZ, VD25 #### [address] [address] [place]: Bret Vazquez MD Chloride [Moles/Vol] 103 mmol/L Normal 98-107 [facility] Comment on above: Performed By: #### I OCAL, CDP, MG, LACTIC, ALICIA, BNP, BMP #### [address] [address] [place]: Bret Vazquez MD Performed By: #### E RTPF, CK, ECENZ, VD25 #### [address] [address] [place]: Bret Vazquez MD CO2 [Moles/Vol] 22 mmol/L Normal 20-31 [facility] Comment on above: Performed By: #### I OCAL, CDP, MG, LACTIC, ALICIA, BNP, BMP #### [address] [address] [place]: Bret Vazquez MD Performed By: #### E RTPF, CK, ECENZ, VD25 #### [address] [address] [place]: Bret Vazquez MD Creatinine [Mass/Vol] 0.62 mg/dL Low 0.70-1.20 [facility] Comment on above: Performed By: #### I OCAL, CDP, MG, LACTIC, ALICIA, BNP, BMP #### [address] [address] [place]: Bret Vazquez MD Performed By: #### E RTPF, CK, ECENZ, VD25 #### [address] [address] [place]: Bret Vazquez MD GFR/1.73 sq M.predicted among non-blacks MDRD (S/P/Bld) [Vol rate/Area] mL/min/{1.73_m2} Normal >60 [facility] Comment on above: Result Comment: Effective [...] CDP, MG, LACTIC, ALICIA, BNP, BMP #### [address] [address] [place]: Bret Vazquez MD Performed By: #### E RTPF, CK, ECENZ, VD25 #### [facility] [employer] [address] [place] [address] [place]: Bret Vazquez MD Glucose [Mass/Vol] 149 mg/dL High 70-99 [facility] Comment on above: Performed By: #### I OCAL, CDP, MG, LACTIC, ALICIA, BNP, BMP #### [facility] [employer] [address] [place] [address] [place]: Bret Vazquez MD Performed By: #### E RTPF, CK, ECENZ, VD25 #### [facility] [employer] [address] [place] [address] [place]: Bret Vazquez MD Potassium [Moles/Vol] 4.9 mmol/L Normal 3.7-5.3 [facility] Comment on above: Performed By: #### I OCAL, CDP, MG, LACTIC, ALICIA, BNP, BMP #### [address] [address] [place]: Bret Vazquez MD Performed By: #### E RTPF, CK, ECENZ, VD25 #### [place] [address] [place]: Bret Vazquez MD Sodium [Moles/Vol] 132 mmol/L Low 135-144 [facility] Comment on above: Performed By: #### I OCAL, CDP, MG, LACTIC, ALICIA, BNP, BMP #### [place] [address] [place]: Bret Vazquez MD Performed By: #### E RTPF, CK, ECENZ, VD25 #### [place] [address] [place]: Bret Vazquez MD Urea nitrogen [Mass/Vol] 13 mg/dL Normal 8-23 [facility] Comment on above: Performed By: #### I OCAL, CDP, MG, LACTIC, ALICIA, BNP, BMP #### [place] [address] [place]: Bret Vazquez MD Performed By: #### E RTPF, CK, ECENZ, VD25 #### [place] [address] [place]: Bret Vazquez MD CBC with Diffon 09-07-2022 Abs. Basophil <0.03 Normal 0.00-0.20 [facility] Comment on above: Performed By: #### I OCAL, CDP, MG, LACTIC, ALICIA, BNP, BMP #### [address] [address] [place]: Bret Vazquez MD Performed By: #### E RTPF, CK, ECENZ, VD25 #### [address] [address] [place]: Bret Vazquez MD Abs. Eosinophil <0.03 Normal 0.00-0.44 [facility] Comment on above: Performed By: #### I OCAL, CDP, MG, LACTIC, ALICIA, BNP, BMP #### [address] [address] [place]: Bret Vazquez MD Performed By: #### E RTPF, CK, ECENZ, VD25 #### [address] [address] [place]: Bret Vazquez MD Abs.Imm.Granulocyte 0.05 k/uL Normal 0.00-0.30 [facility] Comment on above: Performed By: #### I OCAL, CDP, MG, LACTIC, ALICIA, BNP, BMP #### [address] [address] [place]: Bret Vazquez MD Performed By: #### E RTPF, CK, ECENZ, VD25 #### [place] [address] [place]: Bret Vazquez MD Abs.Neutrophil (Seg) 7.23 k/uL Normal 1.50-8.10 [facility] Comment on above: Performed By: #### I OCAL, CDP, MG, LACTIC, ALICIA, BNP, BMP #### [address] [address] [place]: Bret Vazquez MD Performed By: #### E RTPF, CK, ECENZ, VD25 #### [facility] [employer] [address] [place] [address] [place]: Bret Vazquez MD Basophils/100 WBC (Bld) 0 % Normal 0-2 M [facility] Comment on above: Performed By: #### I OCAL, CDP, MG, LACTIC, ALICIA, BNP, BMP #### [address] [address] [place]: Bret Vazquez MD Performed By: #### E RTPF, CK, ECENZ, VD25 #### [address] [address] [place]: Bret Vazquez MD Eosinophils/100 WBC (Bld) 0 % Low 1-4 [facility] Comment on above: Performed By: #### I OCAL, CDP, MG, LACTIC, ALICIA, BNP, BMP #### [place] [address] [place]: Bret Vazquez MD Performed By: #### E RTPF, CK, ECENZ, VD25 #### [place] [address] [place]: Bret Vazquez MD Erythrocyte distribution width (RBC) [Ratio] 16.4 % High 11.8-14.4 [facility] Comment on above: Performed By: #### I OCAL, CDP, MG, LACTIC, ALICIA, BNP, BMP #### [facility] [employer] [address] [place] [address] [place]: Bret Vazquez MD Performed By: #### E RTPF, CK, ECENZ, VD25 #### [facility] [employer] [address] [place] [address] [place]: Bret Vazquez MD Hematocrit (Bld) [Volume fraction] 25.6 % Low 40.7-50.3 [facility] Comment on above: Performed By: #### I OCAL, CDP, MG, LACTIC, ALICIA, BNP, BMP #### [address] [address] [place]: Bret Vazquez MD Performed By: #### E RTPF, CK, ECENZ, VD25 #### [address] [address] [place]: Bret Vazquez MD Hemoglobin (Bld) [Mass/Vol] 7.6 g/dL Low 13.0-17.0 [facility] Comment on above: Performed By: #### I OCAL, CDP, MG, LACTIC, ALICIA, BNP, BMP #### [address] [address] [place]: Bret Vazquez MD Performed By: #### E RTPF, CK, ECENZ, VD25 #### [address] [address] [place]: Bret Vazquez MD Immature granulocytes/100 WBC (Bld) 1 % High 0 [facility] Comment on above: Performed By: #### I OCAL, CDP, MG, LACTIC, ALICIA, BNP, BMP #### [address] [address] [place]: Bret Vazquez MD Performed By: #### E RTPF, CK, ECENZ, VD25 #### [address] [address] [place]: Bret Vazquez MD Lymphocytes (Bld) [#/Vol] 0.89 10*3/uL Low 1.10-3.70 [facility] Comment on above: Performed By: #### I OCAL, CDP, MG, LACTIC, ALICIA, BNP, BMP #### [facility] [employer] [address] [place] [address] [place]: Bret Vazquez MD Performed By: #### E RTPF, CK, ECENZ, VD25 #### [address] [address] [place]: Bret Vazquez MD Lymphocytes/100 WBC (Bld) 10 % Low 24-43 [facility] Comment on above: Performed By: #### I OCAL, CDP, MG, LACTIC, ALICIA, BNP, BMP #### [address] [address] [place]: Bret Vazquez MD Performed By: #### E RTPF, CK, ECENZ, VD25 #### [address] [address] [place]: Bret Vazquez MD MCH (RBC) [Entitic mass] 31.7 pg Normal 25.2-33.5 [facility] Comment on above: Performed By: #### I OCAL, CDP, MG, LACTIC, ALICIA, BNP, BMP #### [address] [address] [place]: Bret Vazquez MD Performed By: #### E RTPF, CK, ECENZ, VD25 #### [address] [address] [place]: Bret Vazquez MD MCHC (RBC) [Mass/Vol] 29.7 g/dL Normal 28.4-34.8 [facility] Comment on above: Performed By: #### I OCAL, CDP, MG, LACTIC, ALICIA, BNP, BMP #### [address] [address] [place]: Bret Vazquez MD Performed By: #### E RTPF, CK, ECENZ, VD25 #### [address] [address] [place]: Bret Vazquez MD MCV (RBC) [Entitic vol] 106.7 fL High 82.6-102.9 [facility] Comment on above: Performed By: #### I OCAL, CDP, MG, LACTIC, ALICIA, BNP, BMP #### [address] [address] [place]: Bret Vazquez MD Performed By: #### E RTPF, CK, ECENZ, VD25 #### [address] [address] [place]: Bret Vazquez MD Monocytes (Bld) [#/Vol] 1.00 10*3/uL Normal 0.10-1.20 [facility] Comment on above: Performed By: #### I OCAL, CDP, MG, LACTIC, ALICIA, BNP, BMP #### [address] [address] [place]: Bret Vazquez MD Performed By: #### E RTPF, CK, ECENZ, VD25 #### [address] [address] [place]: Bret Vazquez MD Monocytes/100 WBC (Bld) 11 % Normal 3-12 [facility] Comment on above: Performed By: #### I OCAL, CDP, MG, LACTIC, ALICIA, BNP, BMP #### [address] [address] [place]: Bret Vazquez MD Performed By: #### E RTPF, CK, ECENZ, VD25 #### [address] [address] [place]: Bret Vazquez MD Neutrophil (Seg) 79 % High 36-65 [facility] Comment on above: Performed By: #### I OCAL, CDP, MG, LACTIC, ALICIA, BNP, BMP #### [address] [address] [place]: Bret Vazquez MD Performed By: #### E RTPF, CK, ECENZ, VD25 #### [address] [address] [place]: Bret Vazquez MD NRBC Automated 0.0 per 100 WBC Normal 0.0 [facility] Comment on above: Performed By: #### I OCAL, CDP, MG, LACTIC, ALICIA, BNP, BMP #### [address] [address] [place]: Bret Vazquez MD Performed By: #### E RTPF, CK, ECENZ, VD25 #### [address] [address] [place]: Bret Vazquez MD Platelet mean volume (Bld) [Entitic vol] 10.7 fL Normal 8.1-13.5 [facility] Comment on above: Performed By: #### I OCAL, CDP, MG, LACTIC, ALICIA, BNP, BMP #### [address] [address] [place]: Bret Vazquez MD Performed By: #### E RTPF, CK, ECENZ, VD25 #### [address] [address] [place]: Bret Vazquez MD Platelets (Bld) [#/Vol] 206 10*3/uL Normal 138-453 [facility] Comment on above: Performed By: #### I OCAL, CDP, MG, LACTIC, ALICIA, BNP, BMP #### [address] [address] [place]: Bret Vazquez MD Performed By: #### E RTPF, CK, ECENZ, VD25 #### [address] [address] [place]: Bret Vazquez MD RBC (Bld) [#/Vol] 2.40 10*6/uL Low 4.21-5.77 [facility] Comment on above: Performed By: #### I OCAL, CDP, MG, LACTIC, ALICIA, BNP, BMP #### [address] [address] [place]: Bret Vazquez MD Performed By: #### E RTPF, CK, ECENZ, VD25 #### [address] [address] [place]: Bret Vazquez MD RBC morphology finding Nom (Bld) ANISOCYTOSIS PRESENT Normal [facility] Comment on above: Result Comment: MACR OCYTOSIS PRESENT Performed By: #### I OCAL, CDP, MG, LACTIC, ALICIA, BNP, BMP #### [facility] [employer] [address] [place] [address] [place]: Bret Vazquez MD Performed By: #### E RTPF, CK, ECENZ, VD25 #### [facility] [employer] [address] [place] [address] [place]: Bret Vazquez MD WBC (Bld) [#/Vol] 9.2 10*3/uL Normal 3.5-11.3 [facility] Comment on above: Performed By: #### I OCAL, CDP, MG, LACTIC, ALICIA, BNP, BMP #### [address] [address] [place]: Bret Vazquez MD Performed By: #### E RTPF, CK, ECENZ, VD25 #### [facility] [employer] [address] [place] [address] [place]: Bret Vazquez MD Hgb/Hcton 09-07-2022 Hematocrit (Bld) [Volume fraction] 22.7 % Low 40.7-50.3 [facility] Comment on above: Performed By: #### D AU, UAX, UMICAO #### [facility] [employer] [address] [place] [address] [place]: Bret Vazquez MD Performed By: #### H H #### [address] [address] [place]: Bret Vazquez MD Hemoglobin (Bld) [Mass/Vol] 6.9 g/dL Critically low 13.0-17.0 [facility] Comment on above: Performed By: #### D AU, UAX, UMICAO #### [address] [address] [place]: Bret Vazquez MD Performed By: #### H H #### [address] [address] [place]: Bret Vazquez MD Hematocrit (Bld) [Volume fraction] 19.2 % Low 40.7-50.3 [facility] Comment on above: Performed By: #### B MPX, CDP #### [address] [address] [place]: Bret Vazquez MD Performed By: #### E ARRON LOPEZ ECENZ, VD25 #### [address] [address] [place]: Bret Vazquez MD Hemoglobin (Bld) [Mass/Vol] 6.2 g/dL Critically low 13.0-17.0 [facility] Comment on above: Performed By: #### B MPX, CDP #### [facility] [employer] [address] [place] [address] [place]: Bret Vazquez MD Performed By: #### E RTPFARRON ECENZ VD25 #### [facility] [employer] [address] [place] [address] [place]: Bret Vazquez MD Magnesiumon 09-07-2022 Magnesium [Mass/Vol] 2.1 mg/dL Normal 1.6-2.6 [facility] Comment on above: Performed By: #### I OCAL, CDP, MG, LACTIC, ALICIA, BNP, BMP #### [address] [address] [place]: Bret Vazquez MD Performed By: #### E RTPF, CK, ECENZ, VD25 #### [address] [address] [place]: Bret Vazquez MD XR CHEST PORTABLEon 09-07-20 [...] Bry Becker MD 09/07/22 Final result Normal [facility] Basic Metab w/rfx MGon 09-06 Anion gap [Moles/Vol] 9 mmol/L Normal 9-17 [facility] Comment on above: Performed By: #### D AU, UAX, UMICAO #### [address] [address] [place]: Bret Vazquez MD Performed By: #### E RTPF, GHLTEG #### [address] [phone] [place]: Bret Vazquez MD Calcium [Mass/Vol] 7.4 mg/dL Low 8.6-10.4 [facility] Comment on above: Performed By: #### Jose R AU, UAX, UMICAO #### [facility] [address] [place] [address] [place]: Bret Vazquez MD Performed By: #### E RTKLARISSA HIGGINSEG #### [facility] [address] [place] [address] [place]: Bret Vazquez MD Chloride [Moles/Vol] 104 mmol/L Normal 98-107 [facility] Comment on above: Performed By: #### Jose R AU, UAX, UMICAO #### [facility] [address] [place] [address] [place]: Bret Vazquez MD Performed By: #### E RTKLARISSA HIGGINSEG #### [facility] [address] [place] [address] [place]: Bret Vazquez MD CO2 [Moles/Vol] 22 mmol/L Normal 20-31 [facility] Comment on above: Performed By: #### Jose R SAPP, UAX, UMICAO #### [facility] [address] [place] [address] [place]: Bret Vazquez MD Performed By: #### E RTKLARISSA HIGGINSEG #### [facility] [address] [place] [address] [place]: Bret Vazquez MD Creatinine [Mass/Vol] 0.59 mg/dL Low 0.70-1.20 [facility] Comment on above: Performed By: #### Jose R SAPP, UAX, UMICAO #### [facility] [address] [place] [address] [place]: Bret Vazquez MD Performed By: #### E RTPF GHLTEG #### [facility] [address] [place] [address] [place]: Bret Vazquez MD GFR/1.73 sq M.predicted among non-blacks MDRD (S/P/Bld) [Vol rate/Area] mL/min/{1.73_m2} Normal >60 [facility] Comment on above: Result Comment: Effective [...] Performed By: #### GINI STARKS UMICAO #### [address] [address] [place]: Bret Vazquez MD Performed By: #### CHRISTY MOJICA #### [facility] [employer] [address] [place] [address] [place]: Bret Vazquez MD Glucose [Mass/Vol] 175 mg/dL High 70-99 [facility] Comment on above: Performed By: #### GINI STARKS UMICAO #### [facility] [employer] [address] [place] [address] [place]: Bret Vazquez MD Performed By: #### CHRISTY MOJICA #### [facility] [employer] [address] [place] [address] [place]: Bret Vazquez MD Potassium [Moles/Vol] 4.5 mmol/L Normal 3.7-5.3 [facility] Comment on above: Performed By: #### GINI STARKS UMICAO #### [address] [address] [place]: Bret Vazquez MD Performed By: #### CHRISTY MOJICA #### [facility] [address] [place] [address] [place]: Bret Vazquez MD Sodium [Moles/Vol] 135 mmol/L Normal 135-144 [facility] Comment on above: Performed By: #### GINI STARKS, UMICAO #### [facility] [address] [place] [address] [place]: Bret Vazquez MD Performed By: #### CHRISTY MOJICA #### [facility] [address] [place] [address] [place]: Bret Vazquez MD Urea nitrogen [Mass/Vol] 11 mg/dL Normal 8-23 [facility] Comment on above: Performed By: #### GINI STARKS, UMICAO #### [facility] [address] [place] [address] [place]: Bret Vazquez MD Performed By: #### CHRISTY MOJICA #### [facility] [address] [place] [address] [place]: Bret Vazquez MD Basic Metabolic Profon 09-06 Anion gap [Moles/Vol] 7 mmol/L Low 9-17 [facility] Comment on above: Performed By: #### GINI STARKS, UMICAO #### [facility] [address] [place] [address] [place]: Bret Vazquez MD Performed By: #### CHRISTY MOJICA #### [facility] [address] [place] [address] [place]: Bret Vazquez MD Calcium [Mass/Vol] 7.8 mg/dL Low 8.6-10.4 [facility] Comment on above: Performed By: #### GINI STARKS, UMICAO #### [facility] [address] [place] [address] [place]: Bret Vazquez MD Performed By: #### Isidro RTKLARISSA HIGGINSEG #### [address] [address] [place]: Bret Vazquez MD Chloride [Moles/Vol] 107 mmol/L Normal 98-107 [facility] Comment on above: Performed By: #### Jose R SAPP UAPriti, UMICAO #### [facility] [employer] [address] [place] [address] [place]: Bret Vazquez MD Performed By: #### E RTKLARISSA HIGGINSEG #### [address] [address] [place]: Bret Vazquez MD CO2 [Moles/Vol] 23 mmol/L Normal 20-31 [facility] Comment on above: Performed By: #### GINI STARKS, UMICAO #### [address] [address] [place]: Bret Vazquez MD Performed By: #### Isidro RTKLARISSA HIGGINSEG #### [address] [address] [place]: Bret Vazquez MD Creatinine [Mass/Vol] 0.60 mg/dL Low 0.70-1.20 [facility] Comment on above: Performed By: #### GINI STARKS, UMICAO #### [address] [address] [place]: Bret Vazquez MD Performed By: #### Isidro RTKLARISSA HIGGINSEG #### [facility] [employer] [address] [place] [address] [place]: Bret Vazquez MD GFR/1.73 sq M.predicted among non-blacks MDRD (S/P/Bld) [Vol rate/Area] mL/min/{1.73_m2} Normal >60 [facility] Comment on above: Result Comment: Effective [...] Performed By: #### GINI STARKS UMICAO #### [facility] [address] [place] [address] [place]: Bret Vazquez MD Performed By: #### CHRISTY MOJICA #### [facility] [employer] [address] [place] [address] [place]: Bret Vazquez MD Glucose [Mass/Vol] 155 mg/dL High 70-99 [facility] Comment on above: Performed By: #### GINI STARKS UMICAO #### [facility] [address] [place] [address] [place]: Bret Vazquez MD Performed By: #### CHRISTY MOJICA #### [facility] [employer] [address] [place] [address] [place]: Bret Vazquez MD Potassium [Moles/Vol] 5.0 mmol/L Normal 3.7-5.3 [facility] Comment on above: Performed By: #### GINI STARKS UMICAO #### [facility] [employer] [address] [place] [address] [place]: Bret Vazquez MD Performed By: #### CHRISTY MOJICA #### [facility] [employer] [address] [place] [address] [place]: Bret Vazquez MD Sodium [Moles/Vol] 137 mmol/L Normal 135-144 [facility] Comment on above: Performed By: #### D AU, UAX, UMICAO #### [facility] [address] [place] [address] [place]: Bret Vazquez MD Performed By: #### E RTCHRISTY HIGGINS #### [facility] [address] [place] [address] [place]: Bret Vazquez MD Urea nitrogen [Mass/Vol] 11 mg/dL Normal 8-23 [facility] Comment on above: Performed By: #### D SENAIT, UAX, UMICAO #### [facility] [address] [place] [address] [place]: Bret Vazquez MD Performed By: #### E RTKLARISSA HIGGINSEG #### [address] [address] [place]: Bret Vazquez MD Anion gap [Moles/Vol] 11 mmol/L Normal 9-17 [facility] Comment on above: Performed By: #### I OCAL, CDP, MG, LACTIC, ALICIA, BNP, BMP #### [address] [address] [place]: Bret Vazquez MD Performed By: #### E RTPF, CK, ECENZ, VD25 #### [address] [address] [place]: Bret Vazquez MD Calcium [Mass/Vol] 7.5 mg/dL Low 8.6-10.4 [facility] Comment on above: Performed By: #### I OCAL, CDP, MG, LACTIC, ALICIA, BNP, BMP #### [address] [address] [place]: Bret Vazquez MD Performed By: #### E RTPF, CK, ECENZ, VD25 #### [facility] [employer] [address] [place] [address] [place]: Bret Vazquez MD Chloride [Moles/Vol] 104 mmol/L Normal 98-107 [facility] Comment on above: Performed By: #### I OCAL, CDP, MG, LACTIC, ALICIA, BNP, BMP #### [address] [address] [place]: Bret Vazquez MD Performed By: #### E RTPF, CK, ECENZ, VD25 #### [address] [address] [place]: Bret Vazquez MD CO2 [Moles/Vol] 20 mmol/L Normal 20-31 [facility] Comment on above: Performed By: #### I OCAL, CDP, MG, LACTIC, ALICIA, BNP, BMP #### [address] [address] [place]: Bret Vazquez MD Performed By: #### E RTPF, CK, ECENZ, VD25 #### [facility] [employer] [address] [place] [address] [place]: Bret Vazquez MD Creatinine [Mass/Vol] 0.62 mg/dL Low 0.70-1.20 [facility] Comment on above: Performed By: #### I OCAL, CDP, MG, LACTIC, ALICIA, BNP, BMP #### [address] [address] [place]: Bret Vazquez MD Performed By: #### E RTPF, CK, ECENZ, VD25 #### [facility] [employer] [address] [place] [address] [place]: Bret Vazquez MD GFR/1.73 sq M.predicted among non-blacks MDRD (S/P/Bld) [Vol rate/Area] mL/min/{1.73_m2} Normal >60 [facility] Comment on above: Result Comment: Effective [...] CDP, MG, LACTIC, ALICIA, BNP, BMP #### [address] [address] [place]: Bret Vazquez MD Performed By: #### E RTPF, CK, ECENZ, VD25 #### [address] [address] [place]: Bret Vazquez MD Glucose [Mass/Vol] 157 mg/dL High 70-99 [facility] Comment on above: Performed By: #### I OCAL, CDP, MG, LACTIC, ALICIA, BNP, BMP #### [address] [address] [place]: Bret Vazquez MD Performed By: #### E RTPF, CK, ECENZ, VD25 #### [address] [address] [place]: Bret Vazquez MD Potassium [Moles/Vol] 4.2 mmol/L Normal 3.7-5.3 [facility] Comment on above: Performed By: #### I OCAL, CDP, MG, LACTIC, ALICIA, BNP, BMP #### [address] [address] [place]: Bret Vazquez MD Performed By: #### E RTPF, CK, ECENZ, VD25 #### [address] [address] [place]: Bret Vazquez MD Sodium [Moles/Vol] 135 mmol/L Normal 135-144 [facility] Comment on above: Performed By: #### I OCAL, CDP, MG, LACTIC, ALICIA, BNP, BMP #### [facility] [address] [place] [address] [place]: Bret Vazquez MD Performed By: #### E RTPF, CK, ECENZ, VD25 #### [address] [address] [place]: Bret Vazquez MD Urea nitrogen [Mass/Vol] 11 mg/dL Normal 8-23 [facility] Comment on above: Performed By: #### I OCAL, CDP, MG, LACTIC, ALICIA, BNP, BMP #### [address] [address] [place]: Bret Vazquez MD Performed By: #### E RTPF, CK, ECENZ, VD25 #### [address] [address] [place]: Bret Vazquez MD Brain Natri. Peptideon 09-06 Natriuretic peptide B (Bld) [Mass/Vol] 846 pg/mL High <300 [facility] Comment on above: Result Comment: An age-independent cutoff point of 300 pg/ml has a 98% negative predictive value excluding acute heart failure. Performed By: #### B MPX, CDP #### [address] [address] [place]: Bret Vazquez MD Performed By: #### E RTPF, CK, ECENZ, VD25 #### [facility] [employer] [address] [place] [address] [place]: Bret Vazquez MD CBC with Diffon 09-06-2022 Abs. Basophil 0.00 k/uL Normal 0.0-0.2 [facility] Comment on above: Performed By: #### D AU, UAX, UMICAO #### [facility] [address] [place] [address] [place]: Bret Vazquez MD Performed By: #### CHRISTY MOJICA #### [address] [address] [place]: Bret Vazquez MD Abs.Imm.Granulocyte 0.00 k/uL Normal 0.00-0.30 [facility] Comment on above: Performed By: #### GINI STARKS, UMICAO #### [address] [address] [place]: Bret Vazquez MD Performed By: #### CHRISTY MOJICA #### [address] [address] [place]: Bret Vazquez MD Abs.Neutrophil (Seg) 8.46 k/uL High 1.8-7.7 [facility] Comment on above: Performed By: #### GINI STARKS, UMICAO #### [address] [address] [place]: Bret Vazquez MD Performed By: #### CHRISTY MOJICA #### [address] [address] [place]: Bret Vazquez MD Basophils/100 WBC (Bld) 0 % Normal 0-2 M [facility] Comment on above: Performed By: #### Jose R SAPP, UAX, UMICAO #### [address] [address] [place]: Bret Vazquez MD Performed By: #### CHRISTY MOJICA #### [address] [address] [place]: Bret Vazquez MD Eosinophils (Bld) [#/Vol] 0.00 10*3/uL Normal 0.0-0.4 [facility] Comment on above: Performed By: #### Jose R SAPP, UAX, UMICAO #### [facility] [employer] [address] [place] [address] [place]: Bret Vazquez MD Performed By: #### E RTRANDOLPH HIGGINSLTEG #### [address] [address] [place]: Bret Vazquez MD Eosinophils/100 WBC (Bld) 0 % Low 1-4 [facility] Comment on above: Performed By: #### Jose R SAPP UAX, UMICAO #### [facility] [employer] [address] [place] [address] [place]: Bret Vazquez MD Performed By: #### E RTRANDOLPH HIGGINSLTEG #### [facility] [employer] [address] [place] [address] [place]: Bret Vazquez MD Immature granulocytes/100 WBC (Bld) 0 % Normal 0 [facility] Comment on above: Performed By: #### GINI STARKS, UMICAO #### [address] [address] [place]: Bret Vazquez MD Performed By: #### E RTPF GHLTEG #### [facility] [employer] [address] [place] [address] [place]: Bret Vazquez MD Lymphocytes (Bld) [#/Vol] 0.55 10*3/uL Low 1.0-4.8 [facility] Comment on above: Performed By: #### Jose R SAPP UAX, UMICAO #### [facility] [employer] [address] [place] [address] [place]: Bret Vazquez MD Performed By: #### E RTPF, GHLTEG #### [facility] [employer] [address] [place] [address] [place]: Bret Vazquez MD Lymphocytes/100 WBC (Bld) 6 % Low 24-44 [facility] Comment on above: Performed By: #### Jose R SAPP, UAX, UMICAO #### [address] [address] [place]: Bret Vazquez MD Performed By: #### E RTPFCHRISTY #### [address] [address] [place]: Bret Vazquez MD Monocytes (Bld) [#/Vol] 0.09 10*3/uL Low 0.1-0.8 [facility] Comment on above: Performed By: #### Jose R SAPP, UAX, UMICAO #### [address] [address] [place]: Bret Vazquez MD Performed By: #### E RTBakariFCHRISTY #### [facility] [employer] [address] [place] [address] [place]: Bret Vazquez MD Monocytes/100 WBC (Bld) 1 % Normal 1-7 M [facility] Comment on above: Performed By: #### Jose R SAPP, UAX, UMICAO #### [address] [address] [place]: Bret Vazquez MD Performed By: #### E RTBakariF GHEG #### [facility] [employer] [address] [place] [address] [place]: Bret Vazquez MD Morphology Ruy (Bld) [Interp] ANISOCYTOSIS PRESENT Normal [facility] Comment on above: Result Comment: 1+ ACANTHOCYTES Performed By: #### Jose R SAPP, UAX, UMICAO #### [address] [address] [place]: Bret Vazquez MD Performed By: #### CHRISTY MOJICA #### [facility] [employer] [address] [place] [address] [place]: Bret Vazquez MD Neutrophil (Seg) 93 % High 36-66 [facility] Comment on above: Performed By: #### Jose R SAPP, UAX, UMICAO #### [facility] [employer] [address] [place] [address] [place]: Bret Vazquez MD Performed By: #### E CHRISTY LOPEZ #### [facility] [employer] [address] [place] [address] [place]: Bret Vazquez MD Erythrocyte distribution width (RBC) [Ratio] 16.8 % High 11.8-14.4 [facility] Comment on above: Performed By: #### Jose R SAPP UAPriti, UMICAO #### [facility] [employer] [address] [place] [address] [place]: Bret Vazquez MD Performed By: #### CHRISTY MOJICA #### [facility] [employer] [address] [place] [address] [place]: Bret Vazquez MD Hematocrit (Bld) [Volume fraction] 26.6 % Low 40.7-50.3 [facility] Comment on above: Performed By: #### Jose R SAPP UAX, UMICAO #### [facility] [employer] [address] [place] [address] [place]: Bret Vazquez MD Performed By: #### Isidro RTCHRISTY HIGGINS #### [facility] [employer] [address] [place] [address] [place]: Bret Vazquez MD Hemoglobin (Bld) [Mass/Vol] 8.5 g/dL Low 13.0-17.0 [facility] Comment on above: Performed By: #### Jose R SAPP, UAX, UMICAO #### [facility] [address] [place] [address] [place]: Bret Vazquez MD Performed By: #### CHRISTY MOJICA #### [address] [address] [place]: Bret Vazquez MD MCH (RBC) [Entitic mass] 31.6 pg Normal 25.2-33.5 [facility] Comment on above: Performed By: #### GINI STARKS, UMICAO #### [address] [address] [place]: Bret Vazquez MD Performed By: #### CHRISTY MOJICA #### [address] [address] [place]: Bret Vazquez MD MCHC (RBC) [Mass/Vol] 32.0 g/dL Normal 28.4-34.8 [facility] Comment on above: Performed By: #### GINI STARKS, UMICAO #### [address] [address] [place]: Bret Vazquez MD Performed By: #### CHRISTY MOJICA #### [address] [address] [place]: Brte Vazquez MD MCV (RBC) [Entitic vol] 98.9 fL Normal 82.6-102.9 M [facility] Comment on above: Performed By: #### GINI STARKS, UMICAO #### [address] [address] [place]: Bret Vazquez MD Performed By: #### CHRISTY MOJICA #### [address] [address] [place]: Bret Vazquez MD NRBC Automated 0.0 per 100 WBC Normal 0.0 [facility] Comment on above: Performed By: #### GINI STARKS UMICAO #### [address] [address] [place]: Bret Vazquez MD Performed By: #### Isidro RTCHRISTY HIGGINS #### [address] [address] [place]: Bret Vazquez MD Platelet mean volume (Bld) [Entitic vol] 10.4 fL Normal 8.1-13.5 [facility] Comment on above: Performed By: #### GINI STARKS, UMICAO #### [address] [address] [place]: Bret Vazquez MD Performed By: #### CHRISTY MOJICA #### [address] [address] [place]: Bret Vazquez MD Platelets (Bld) [#/Vol] 224 10*3/uL Normal 138-453 [facility] Comment on above: Performed By: #### GINI STARKS, UMICAO #### [address] [address] [place]: Bret Vazquez MD Performed By: #### E CHRISTY LOPEZ #### [address] [address] [place]: Bret Vazquez MD RBC (Bld) [#/Vol] 2.69 10*6/uL Low 4.21-5.77 [facility] Comment on above: Performed By: #### DONATO STARKSX, UMICAO #### [address] [address] [place]: Bret Vazquez MD Performed By: #### E CHRISTY LOPEZ #### [facility] [employer] [employer] [address] [place] [address] [place]: Bret Vazquez MD WBC (Bld) [#/Vol] 9.1 10*3/uL Normal 3.5-11.3 [facility] Comment on above: Performed By: #### GINI STARKS, UMICAO #### [facility] [employer] [address] [place] [address] [place]: Bret Vazquez MD Performed By: #### E RTRONALDO GHLTEG #### [address] [address] [place]: Bret Vazquez MD Abs. Basophil 0.03 k/uL Normal 0.00-0.20 [facility] Comment on above: Performed By: #### GINI STARKS, UMICAO #### [facility] [employer] [address] [place] [address] [place]: Bret Vazquez MD Performed By: #### E CHRISTY LOPEZ #### [place] [address] [place]: Bret Vazquez MD Abs. Eosinophil <0.03 Normal 0.00-0.44 [facility] Comment on above: Performed By: #### GINI STARKS, UMICAO #### [facility] [employer] [address] [place] [address] [place]: Bret Vazquez MD Performed By: #### E RTRONALDO GHLTEG #### [facility] [address] [place] [address] [place]: Bret Vazquez MD Abs.Imm.Granulocyte 0.05 k/uL Normal 0.00-0.30 [facility] Comment on above: Performed By: #### Jose R SAPP UAPriti, UMICAO #### [address] [address] [place]: Bret Vazquez MD Performed By: #### CHRISTY MOJICA #### [address] [address] [place]: Bret Vazquez MD Abs.Neutrophil (Seg) 9.22 k/uL High 1.50-8.10 [facility] Comment on above: Performed By: #### GINI STARKS, UMSAMSONO #### [address] [address] [place]: Bret Vazquez MD Performed By: #### CHRISTY MOJICA #### [address] [address] [place]: Bret Vazquez MD Basophils/100 WBC (Bld) 0 % Normal 0-2 [facility] Comment on above: Performed By: #### GINI STARKS, UMICAO #### [address] [address] [place]: Bret Vazquez MD Performed By: #### CHRISTY MOJICA #### [address] [address] [place]: Bret Vazquez MD Eosinophils/100 WBC (Bld) 0 % Low 1-4 [facility] Comment on above: Performed By: #### GINI STARKS, UMICAO #### [address] [address] [place]: Bret Vazquez MD Performed By: #### CHRISTY MOJICA #### [address] [address] [place]: Bret Vazquez MD Erythrocyte distribution width (RBC) [Ratio] 16.8 % High 11.8-14.4 [facility] Comment on above: Performed By: #### Jose R SAPP UAX, UMICAO #### [facility] [address] [place] [address] [place]: Bret Vazquez MD Performed By: #### E RTCHRISTY HIGGINS #### [facility] [address] [place] [address] [place]: Bret Vazquez MD Hematocrit (Bld) [Volume fraction] 30.0 % Low 40.7-50.3 [facility] Comment on above: Performed By: #### Jose R SAPP UAX, UMICAO #### [facility] [address] [place] [address] [place]: Bret Vazquez MD Performed By: #### E RTCHRISTY HIGGINS #### [facility] [employer] [address] [place] [address] [place]: Bret Vazquez MD Hemoglobin (Bld) [Mass/Vol] 9.7 g/dL Low 13.0-17.0 [facility] Comment on above: Performed By: #### GINI STARKS, UMICAO #### [facility] [employer] [address] [place] [address] [place]: Bret Vazquez MD Performed By: #### E RTCHRISTY HIGGINS #### [facility] [employer] [address] [place] [address] 237[address] [place]: Bret Vazquez MD Immature granulocytes/100 WBC (Bld) 0 % Normal 0 [facility] Comment on above: Performed By: #### GINI STARKS, UMICAO #### [facility] [employer] [address] [place] [address] 48[address] [place]: Bret Vazquez MD Performed By: #### E RTRONALDO GHLTEG #### [facility] [employer] [address] [place] [address] 57[address] [place]: Bret Vazquez MD Lymphocytes (Bld) [#/Vol] 0.84 10*3/uL Low 1.10-3.70 [facility] Comment on above: Performed By: #### GINI STARKS, UMICAO #### [facility] [address] [place] [address] 9[address]46 [place]: Bret Vazquez MD Performed By: #### CHRISTY MOJICA #### [facility] [address] [place] [address] 8[address]39 [place]: Bret Vazquez MD Lymphocytes/100 WBC (Bld) 8 % Low 24-43 [facility] Comment on above: Performed By: #### GINI STARKS, UMICAO #### [address] [address] [place]: Bret Vazquez MD Performed By: #### E CHRISTY LOPEZ #### [address] [address] [place]: Bret Vazquez MD MCH (RBC) [Entitic mass] 31.6 pg Normal 25.2-33.5 [facility] Comment on above: Performed By: #### GINI STARKS, UMICAO #### [facility] [employer] [address] [place] [address] 52982 [place]: Bret Vazquez MD Performed By: #### E RTCHRISTY HIGGINS #### [facility] [employer] [address] [place] [address] 18369 [place]: Bret Vazquez MD MCHC (RBC) [Mass/Vol] 32.3 g/dL Normal 28.4-34.8 [facility] Comment on above: Performed By: #### GINI STARKS, UMICAO #### [facility] [employer] [address] [place] [address] 06410 [place]: Bret Vazquez MD Performed By: #### CHRISTY MOJICA #### [address] [address] [place]: Bret Vazquez MD MCV (RBC) [Entitic vol] 97.7 fL Normal 82.6-102.9 M [facility] Comment on above: Performed By: #### GINI STARKS, UMSAMSONO #### [address] [address] [place]: Bret Vazquez MD Performed By: #### CHRISTY MOJICA #### [address] [address] [place]: Bret Vazquez MD Monocytes (Bld) [#/Vol] 0.98 10*3/uL Normal 0.10-1.20 [facility] Comment on above: Performed By: #### GINI STARKS, UMICAO #### [address] [address] [place]: Bret Vazquez MD Performed By: #### CHRISTY MOJICA #### [address] [address] [place]: Bret Vazquez MD Monocytes/100 WBC (Bld) 9 % Normal 3-12 M [facility] Comment on above: Performed By: #### GINI STARKS, UMICAO #### [address] [address] [place]: Bret Vazquez MD Performed By: #### CHRISTY MOJICA #### [address] [address] [place]: Bret Vazquez MD Neutrophil (Seg) 83 % High 36-65 [facility] Comment on above: Performed By: #### D AU, UAX, UMICAO #### [facility] [place] [address] [place]: Bret Vazquez MD Performed By: #### Isidro RTCHRISTY HIGGINS #### [facility] [address] [place] [address] [place]: Bret Vazquez MD NRBC Automated 0.0 per 100 WBC Normal 0.0 [facility] Comment on above: Performed By: #### Jose R AU, UAX, UMICAO #### [facility] [address] [place] [address] 14980 [place]: Bret Vazquez MD Performed By: #### Isidro RTCHRISTY HIGGINS #### [address] [address] [place]: Bret Vazquez MD Platelet mean volume (Bld) [Entitic vol] 10.2 fL Normal 8.1-13.5 [facility] Comment on above: Performed By: #### Jose R SAPP, UAX, UMICAO #### [address] [address] [place]: Bret Vazquez MD Performed By: #### CHRISTY MOJICA #### [address] [address] [place]: Bret Vazquez MD Platelets (Bld) [#/Vol] 249 10*3/uL Normal 138-453 [facility] Comment on above: Performed By: #### Jose R SAPP, UAX, UMICAO #### [facility] [address] [place] [address] 249[address] [place]: Bret Vazquez MD Performed By: #### E RTCHRISTY HIGGINS #### [facility] [address] [place] [address] 71441 [place]: Bret Vazquez MD RBC (Bld) [#/Vol] 3.07 10*6/uL Low 4.21-5.77 [facility] Comment on above: Performed By: #### GINI STARKS, CORRINA #### [address] [address] [place]: Bret Vazquez MD Performed By: #### E RTCHRISTY HIGGINS #### [address] [address] [place]: Bret Vazquez MD RBC morphology finding Nom (Bld) ANISOCYTOSIS PRESENT Normal [facility] Comment on above: Performed By: #### GINI STARKS, CORRINA #### [address] [address] [place]: Bret Vazquez MD Performed By: #### Isidro RTCHRISTY HIGGINS #### [address] [address] [place]: Bert Vazquez MD WBC (Bld) [#/Vol] 11.1 10*3/uL Normal 3.5-11.3 [facility] Comment on above: Performed By: #### [facility]I STARKS, [facility] #### [address] [address] [place]: Bret Vazquez MD Performed By: #### E RTCHRISTY HIGGINS #### [address] [address] [place]: Bret Vazquez MD Abs. Basophil 0.04 k/uL Normal 0.00-0.20 [facility] Comment on above: Performed By: #### I OCAL, CDP, MG, LACTIC, ALICIA, BNP, BMP #### [address] [address] [place]: Bret Vazquez MD Performed By: #### E RTPF, CK, ECENZ, VD25 #### [address] [address] [place]: Bret Vazquez MD Abs.Imm.Granulocyte 0.07 k/uL Normal 0.00-0.30 [facility] Comment on above: Performed By: #### I OCAL, CDP, MG, LACTIC, ALICIA, BNP, BMP #### [address] [address] [place]: Bret Vazquez MD Performed By: #### E RTPF, CK, ECENZ, VD25 #### [address] [address] [place]: Bret Vazquez MD Abs.Neutrophil (Seg) 13.83 k/uL High 1.50-8.10 [facility] Comment on above: Performed By: #### I OCAL, CDP, MG, LACTIC, ALICIA, BNP, BMP #### [address] [address] [place]: Bret Vazquez MD Performed By: #### E RTPF, CK, ECENZ, VD25 #### [address] [address] [place]: Bret Vazquez MD Basophils/100 WBC (Bld) 0 % Normal 0-2 M [facility] Comment on above: Performed By: #### I OCAL, CDP, MG, LACTIC, ALICIA, BNP, BMP #### [address] [address] [place]: Bret Vazquez MD Performed By: #### E RTPF, CK, ECENZ, VD25 #### [facility] [employer] [address] [place] [address] 11858 [place]: Bret Vazquez MD Eosinophils (Bld) [#/Vol] 0.07 10*3/uL Normal 0.00-0.44 [facility] Comment on above: Performed By: #### I OCAL, CDP, MG, LACTIC, ALICIA, BNP, BMP #### [facility] [employer] [address] [place] [address]147 [place]: Bret Vazquez MD Performed By: #### E RTPF, CK, ECENZ, VD25 #### [facility] [employer] [address] [place] [address] 25197 [place]: Bret Vazquez MD Eosinophils/100 WBC (Bld) 0 % Low 1-4 [facility] Comment on above: Performed By: #### I OCAL, CDP, MG, LACTIC, ALICIA, BNP, BMP #### [facility] [employer] [address] [place] [address] [place]: Bret Vazquez MD Performed By: #### E RTPF, CK, ECENZ, VD25 #### [facility] [employer] [address] [place] [address] [place]: Bret Vazquez MD Erythrocyte distribution width (RBC) [Ratio] 16.4 % High 11.8-14.4 [facility] Comment on above: Performed By: #### I OCAL, CDP, MG, LACTIC, ALICIA, BNP, BMP #### [facility] [employer] [address] [place] [address] [place]: Bret Vazquez MD Performed By: #### E RTPF, CK, ECENZ, VD25 #### [facility] [employer] [address] [place] [address] 16960 [place]: Bret Vazquez MD Hematocrit (Bld) [Volume fraction] 33.2 % Low 40.7-50.3 [facility] Comment on above: Performed By: #### I OCAL, CDP, MG, LACTIC, ALICIA, BNP, BMP #### [facility] [employer] [address] [place] [address] 23321 [place]: Bret Vazquez MD Performed By: #### E RTPF, CK, ECENZ, VD25 #### [facility] [employer] [address] [place] [address] 9[address]30 [place]: Bret Vazquez MD Hemoglobin (Bld) [Mass/Vol] 11.1 g/dL Low 13.0-17.0 [facility] Comment on above: Performed By: #### I OCAL, CDP, MG, LACTIC, ALICIA, BNP, BMP #### [facility] [employer] [address] [place] [address] 91102 [place]: Bret Vazquez MD Performed By: #### E RTPF, CK, ECENZ, VD25 #### [facility] [employer] [address] [place] [address] 16141 [place]: Bret Vazquez MD Immature granulocytes/100 WBC (Bld) 0 % Normal 0 [facility] Comment on above: Performed By: #### I OCAL, CDP, MG, LACTIC, ALICIA, BNP, BMP #### [facility] [employer] [address] [place] [address] 28675 [place]: Bret Vazquez MD Performed By: #### E RTPF, CK, ECENZ, VD25 #### [facility] [employer] [address] [place] [address] 72185 [place]: Bret Vazquez MD Lymphocytes (Bld) [#/Vol] 1.05 10*3/uL Low 1.10-3.70 [facility] Comment on above: Performed By: #### I OCAL, CDP, MG, LACTIC, ALICIA, BNP, BMP #### [facility] [employer] [address] [place] [address] 40714 [place]: Bret Vazquez MD Performed By: #### E RTPF, CK, ECENZ, VD25 #### [facility] [employer] [address] [place] [address] 77312 [place]: Bret Vazquez MD Lymphocytes/100 WBC (Bld) 6 % Low 24-43 [facility] Comment on above: Performed By: #### I OCAL, CDP, MG, LACTIC, ALICIA, BNP, BMP #### [address] [address] [place]: Bret Vazquez MD Performed By: #### E RTPF, CK, ECENZ, VD25 #### [address] [address] [place]: Bret Vazquez MD MCH (RBC) [Entitic mass] 31.5 pg Normal 25.2-33.5 [facility] Comment on above: Performed By: #### I OCAL, CDP, MG, LACTIC, ALICIA, BNP, BMP #### [address] [address] [place]: Bret Vazquez MD Performed By: #### E RTPF, CK, ECENZ, VD25 #### [address] [address] [place]: Bret Vazquez MD MCHC (RBC) [Mass/Vol] 33.4 g/dL Normal 28.4-34.8 [facility] Comment on above: Performed By: #### I OCAL, CDP, MG, LACTIC, ALICIA, BNP, BMP #### [address] [address] [place]: Bret Vazquez MD Performed By: #### E RTPF, CK, ECENZ, VD25 #### [address] [address] [place]: Bret Vazquez MD MCV (RBC) [Entitic vol] 94.3 fL Normal 82.6-102.9 M [facility] Comment on above: Performed By: #### I OCAL, CDP, MG, LACTIC, ALICIA, BNP, BMP #### [address] [address] [place]: Bret Vazquez MD Performed By: #### E RTPF, CK, ECENZ, VD25 #### [address] [address] [place]: Bret Vazquez MD Monocytes (Bld) [#/Vol] 1.34 10*3/uL High 0.10-1.20 [facility] Comment on above: Performed By: #### I OCAL, CDP, MG, LACTIC, ALICIA, BNP, BMP #### [address] [address] [place]: Bret Vazquez MD Performed By: #### E RTPF, CK, ECENZ, VD25 #### [address] [address] [place]: Bret Vazquez MD Monocytes/100 WBC (Bld) 8 % Normal 3-12 M [facility] Comment on above: Performed By: #### I OCAL, CDP, MG, LACTIC, ALICIA, BNP, BMP #### [place] [address] [place]: Bret Vazquez MD Performed By: #### E RTPF, CK, ECENZ, VD25 #### [address] [address] [place]: Bret Vazquez MD Neutrophil (Seg) 84 % High 36-65 [facility] Comment on above: Performed By: #### I OCAL, CDP, MG, LACTIC, ALICIA, BNP, BMP #### [address] [address] [place]: Bret Vazquez MD Performed By: #### E RTPF, CK, ECENZ, VD25 #### [address] [address] [place]: Bret Vazquez MD NRBC Automated 0.0 per 100 WBC Normal 0.0 [facility] Comment on above: Performed By: #### I OCAL, CDP, MG, LACTIC, ALICIA, BNP, BMP #### [address] [address] [place]: Bret Vazquez MD Performed By: #### E RTPF, CK, ECENZ, VD25 #### [address] [address] [place]: Bret Vazquez MD Platelet mean volume (Bld) [Entitic vol] 10.2 fL Normal 8.1-13.5 [facility] Comment on above: Performed By: #### I OCAL, CDP, MG, LACTIC, ALICIA, BNP, BMP #### [address] [address] [place]: Bret Vazquez MD Performed By: #### E RTPF, CK, ECENZ, VD25 #### [address] [address] [place]: Bret Vazquez MD Platelets (Bld) [#/Vol] 283 10*3/uL Normal 138-453 [facility] Comment on above: Performed By: #### I OCAL, CDP, MG, LACTIC, ALICIA, BNP, BMP #### [address] [address] [place]: Bret Vazquez MD Performed By: #### E RTPF, CK, ECENZ, VD25 #### [facility] [employer] [address] [place] [address] 22286 [place]: Bret Vazquez MD RBC (Bld) [#/Vol] 3.52 10*6/uL Low 4.21-5.77 [facility] Comment on above: Performed By: #### I OCAL, CDP, MG, LACTIC, ALICIA, BNP, BMP #### [address] [address] [place]: Bret Vazquez MD Performed By: #### E RTPF, CK, ECENZ, VD25 #### [address] [address] [place]: Bret Vazquez MD RBC morphology finding Nom (Bld) ANISOCYTOSIS PRESENT Normal [facility] Comment on above: Performed By: #### I OCAL, CDP, MG, LACTIC, ALICIA, BNP, BMP #### [address] [address] [place]: Bret Vazquez MD Performed By: #### E RTPF, CK, ECENZ, VD25 #### [address] [address] [place]: Bret Vazquez MD WBC (Bld) [#/Vol] 16.4 10*3/uL High 3.5-11.3 [facility] Comment on above: Performed By: #### I OCAL, CDP, MG, LACTIC, ALICIA, BNP, BMP #### [address] [address] [place]: Bret Vazquez MD Performed By: #### E RTPF, CK, ECENZ, VD25 #### [address] [address] [place]: Bret Vazquez MD CT 3D RECONSTRUCTIONon 09-06 [...] Dallin Pineda MD 09/06/22 Final result Normal [facility] CT ANKLE LEFT WO CONTRASTon 09-06-2022 [...] Dallin Pineda MD 09/06/22 Final result Normal [facility] Calcium, Ionicon 09-06-2022 Calcium [Moles/Vol] 1.16 mmol/L Normal 1.13-1.33 [facility] Comment on above: Performed By: #### B MPX, CDP #### [employer] [address] [place], [place] [id number] [place]: Bret Vazquez MD Performed By: #### B MP, CDP, IOCAL, LACTIC, ALICIA, MG #### [employer] [address] [place], [place] [phone] [place]: Bret Vazquez MD Calcium [Moles/Vol] 1.17 mmol/L Normal 1.13-1.33 [facility] Comment on above: Performed By: #### Jose R AU, UAX, UMICAO #### [facility] [address] [place] [address] [place]: Bret Vazquez MD Performed By: #### E RTPF, CK, ECENZ, VD25 #### [facility] [address] [place] [address] 35067 [place]: Bret Vazquez MD Calcium [Moles/Vol] 0.98 mmol/L Low 1.13-1.33 [facility] Comment on above: Performed By: #### I OCAL, CDP, MG, LACTIC, ALICIA, BNP, BMP #### [facility] [employer] [address] [place] [address] 12444 [place]: Bret Vazquez MD Performed By: #### E RTPF, CK, ECENZ, VD25 #### [facility] [employer] [address] [place] [address] 42875 [place]: Bret Vazquez MD Drug Scr, Abuse, Uron 2021 Amphetamine(s),Ur Negative Normal NEG [facility] Comment on above: Result Comment: (Positive cutoff 1000 ng/mL) Performed By: #### Jose R AU, UAX, UMICAO #### [facility] [address] [place] [address] 11[address] [place]: Bret Vazquez MD Performed By: #### E RTPF, CK, ECENZ, VD25 #### [facility] [address] [place] [address] [place]: Bret Vazquez MD Barbiturate(s),Ur Negative Normal NEG [facility] Comment on above: Result Comment: (Positive cutoff 200 ng/mL) Performed By: #### Jose R AU, UAX, UMICAO #### [facility] [address] [place] [address] 6[address] [place]: Bret Vazquez MD Performed By: #### E RTPF, CK, ECENZ, VD25 #### [facility] [address] [place] [address] 11354 [place]: Bret Vazquez MD Benzodiazepine(s) Negative Normal NEG [facility] Comment on above: Result Comment: (Positive cutoff 200 ng/mL) Performed By: #### D AU, UAX, UMICAO #### [facility] [address] [place] [address] 9[address]99 [place]: Bret Vazquez MD Performed By: #### E RTPF, CK, ECENZ, VD25 #### [facility] [address] [place] [address] 17174 [place]: Bret Vazquez MD Cannabinoid(s),Ur Negative Normal NEG [facility] Comment on above: Result Comment: (Positive cutoff 50 ng/mL) Performed By: #### D AU, UAX, UMICAO #### [facility] [address] [place] [address] 89062 [place]: Bret Vazquez MD Performed By: #### E RTPF, CK, ECENZ, VD25 #### [facility] [address] [place] [address] 40932 [place]: Bret Vazquez MD Cocaine Metabolite Negative Normal NEG [facility] Comment on above: Result Comment: (Positive cutoff 300 ng/mL) Performed By: #### D AU, UAX, UMICAO #### [facility] [address] [place] [address]183 [place]: Bret Vazquez MD Performed By: #### E RTPF, CK, ECENZ, VD25 #### [facility] [address] [place] [address] 06542 [place]: Bret Vazquez MD Fentanyl, Urine Positive Abnormal NEG [facility] Comment on above: Result Comment: (Positive cutoff 5 ng/ml) Performed By: #### Jose R AU, UAX, UMICAO #### [address] [address] [place]: Bret Vazquez MD Performed By: #### E RTPF, CK, ECENZ, VD25 #### [address] [address] [place]: Bret Vazquez MD Interpretive Info Assay provides medic al screening only. The absence of expected drug(s) and/or Normal [facility] Comment on above: Result Comment: meta bolite(s) may indicate diluted or adulterated urine, limitations of testing or timing of collection. Testing for legal purposes should be confirmed by another method. To request confirmation of test result, please call the lab within 7 days of sample submission. Performed By: #### Jose R AU UAX, UMICAO #### [address] [address] [place]: Bret Vazquez MD Performed By: #### E RTPF, CK, ECENZ, VD25 #### [facility] [employer] [address] [place] [address]60 [place]: Bret Vazquez MD Methadone Ql (U) Negative Normal NEG [facility] Comment on above: Result Comment: (Positive cutoff 300 ng/mL) Performed By: #### Jose R AU UAX, UMICAO #### [facility] [employer] [address] [place] [address] 8[address] [place]: Bret Vazquez MD Performed By: #### E RTPF, CK, ECENZ, VD25 #### [facility] [address] [place] [address] 64089 [place]: Bret Vazquez MD Opiate(s), Ur Negative Normal NEG [facility] Comment on above: Result Comment: (Positive cutoff 300 ng/mL) Performed By: #### Jose R AU, UAX, UMICAO #### [facility] [employer] [address] [place] [address] 8[address]31 [place]: Bret Vazquez MD Performed By: #### E RTPF, CK, ECENZ, VD25 #### [facility] [employer] [address] [place] [address] [place]: Bret Vazquez MD Oxycodone, Urine Negative Normal NEG [facility] Comment on above: Result Comment: (Positive cutoff 100 ng/mL) Performed By: #### D AU, UAX, UMICAO #### [facility] [employer] [address] [place] [address] 9[address] [place]: Bret Vazquez MD Performed By: #### E RTPF, CK, ECENZ, VD25 #### [facility] [employer] [address] [place] [address] [place]: Bret Vazquez MD Phencyclidine, Ur Negative Normal NEG [facility] Comment on above: Result Comment: (Positive cutoff 25 ng/mL) Performed By: #### D AU, UAX, UMICAO #### [facility] [employer] [address] [place] [address] 00975 [place]: Bret Vazquez MD Performed By: #### E RTPF, CK, ECENZ, VD25 #### [facility] [employer] [address] [place] [address] [place]: Bret Vazquez MD FLUORO FOR SURGICAL PROCEDUR ESon 09-06-2022 FLUORO FOR SURGICAL PROCEDURES Radiology exam is complete. No Radiologist dictation. Please follow up with ordering provider. Final result Normal [facility] Gl Hemostasis TEG w/Lysison 09-06-2022 Fibrinogen, Func TEG 22.5 mm Normal 15.0-32.0 [facility] Comment on above: Performed By: #### B MPX, CDP #### [facility] [employer] [address] [place] [address] [place]: Bret Vazquez MD Performed By: #### E RTPF, GHLTEG #### [address] [address] [place]: Bret Vazquez MD LY30 (Lysis) TEG 0.4 % Normal 0.0-2.6 [facility] Comment on above: Performed By: #### B MPX, CDP #### [address] [address] [place]: Bret Vazquez MD Performed By: #### E RTPF, GHLTEG #### [address] [address] [place]: Bret Vazquez MD MA Rapid TEG 64.5 mm Normal 52.0-70 [facility] Comment on above: Performed By: #### B MPX, CDP #### [address] [address] [place]: Bret Vazquez MD Performed By: #### E RTPF, GHLTEG #### [address] [address] [place]: Bret Vazquez MD R(Reaction Time) TEG 8.0 min Normal 4.6-9.1 [facility] Comment on above: Performed By: #### B MPX, CDP #### [address] [address] [place]: Bret Vazquez MD Performed By: #### E RTPF, GHLTEG #### [address] [address] [place]: Bret Vazquez MD Hgb/Hcton 09-06-2022 Hematocrit (Bld) [Volume fraction] 28.2 % Low 40.7-50.3 [facility] Comment on above: Performed By: #### B MPX, CDP #### [facility] [employer] [address] [place] [address] [place]: Bret Vazquez MD Performed By: #### H H #### [facility] [employer] [address] [place] [address] [place]: Bret Vazquez MD Hemoglobin (Bld) [Mass/Vol] 9.3 g/dL Low 13.0-17.0 [facility] Comment on above: Performed By: #### B MPX, CDP #### [facility] [employer] [address] [place] [address] [place]: Bret Vazquez MD Performed By: #### H H #### [facility] [employer] [address] [place] [address] [place]: Bret Vazquez MD Lactic Acidon 09-06-2022 Lactic Acid,Whole Bl 1.7 mmol/L Normal 0.7-2.1 [facility] Comment on above: Performed By: #### B MPX, CDP #### [address] [address] [place]: Bret Vazquez MD Performed By: #### KLARISSA MOJICAEG #### [facility] [employer] [address] [place] [address] [place]: Bret Vazquez MD Lactic Acid,Whole Bl 0.8 mmol/L Normal 0.7-2.1 [facility] Comment on above: Performed By: #### Jose R SAPP, UAX, UMICAO #### [facility] [employer] [address] [place] [address] [place]: Bret Vazquez MD Performed By: #### E RTARRON HIGGINS, ECENZ, VD25 #### [facility] [employer] [address] [place] [address] [place]: Bret Vazquez MD Lactic Acid,Whole Bl 1.3 mmol/L Normal 0.7-2.1 [facility] Comment on above: Performed By: #### I OCAL, CDP, MG, LACTIC, ALICIA, BNP, BMP #### [facility] [employer] [employer] [address] [place] [address] [place]: Bret Vazquez MD Performed By: #### E RTPF, CK, ECENZ, VD25 #### [facility] [address] [place] [address] [place]: Bret Vazquez MD Magnesiumon 09-06-2022 Magnesium [Mass/Vol] 1.8 mg/dL Normal 1.6-2.6 [facility] Comment on above: Performed By: #### GINI STARKS, CORRINA #### [facility] [employer] [address] [place] [address] [place]: Bret Vazquez MD Performed By: #### CHRISTY MOJICA #### [facility] [employer] [address] [place] [address] [place]: Bret Vazquez MD Magnesium [Mass/Vol] 2.3 mg/dL Normal 1.6-2.6 [facility] Comment on above: Performed By: #### GINI STARKS, DENIAICAMavis #### [facility] [employer] [address] [place] [address] [place]: Bret Vazquez MD Performed By: #### KLARISSA MOJICAEG #### [facility] [employer] [address] [place] [address] [phone] [place]: Bret Vazquez MD Magnesium [Mass/Vol] 1.7 mg/dL Normal 1.6-2.6 [facility] Comment on above: Performed By: #### I OCAL, CDP, MG, LACTIC, ALICIA, BNP, BMP #### [facility] [employer] [address] [place] [address] 6[address] [place]: Bret Vazquez MD Performed By: #### E RTPF, CK, ECENZ, VD25 #### [facility] [employer] [address] [place] [address] 66[address] [place]: Bret Vazqeuz MD PTon 09-06-2022 INR Coag (PPP) [Relative time] 1.6 {INR} Normal [facility] Comment on above: Result Comment: Therapeutic Range: Moderate Anticoagulant Intensity: INR = 2.0-3.0 High Anticoagulant Intensity: INR = 2.5-3.5 Performed By: #### I OCAL, CDP, MG, LACTIC, ALICIA, BNP, BMP #### [facility] [address] [place] [address] [place]: Bret Vazquez MD Performed By: #### E RTPF, CK, ECFARZAD VD25 #### [facility] [employer] [address] [place] [address] 97448 [place]: Bret Vazquez MD PT Coag (PPP) [Time] 16.5 s High 9.1-12.3 [facility] Comment on above: Performed By: #### I OCAL, CDP, MG, LACTIC, ALICIA, BNP, BMP #### [facility] [employer] [address] [place] [address] 58760 [place]: Bret Vazquez MD Performed By: #### E RTPF, CK, ECENZ, VD25 #### [facility] [employer] [address] [place] [address] 64510 [place]: Bret Vazquez MD Phosphorus, Inorg.on 022 Phosphorus, Inorg. 4.0 mg/dL Normal 2.5-4.5 [facility] Comment on above: Performed By: #### D AU, UAX, UMICAO #### [facility] [employer] [address] [place] [address] [phone] [place]: Bret Vazquez MD Performed By: #### E RTPF, GHLTEG #### [facility] [employer] [address] [place] [address] 53568 [place]: Bret Vazquez MD Phosphorus, Inorg. 4.0 mg/dL Normal 2.5-4.5 [facility] Comment on above: Performed By: #### I OCAL, CDP, MG, LACTIC, ALICIA, BNP, BMP #### [facility] [employer] [address] [place] [address] 20395 [place]: Bret Vazquez MD Performed By: #### E RTPF, CK, ECENZ, VD25 #### [facility] [employer] [address] [place] [address] 57321 [place]: Bret Vazquez MD Phosphorus, Inorg. 3.5 mg/dL Normal 2.5-4.5 [facility] Comment on above: Performed By: #### B MPX, CDP #### [facility] [employer] [address] [place] [address] [phone] [place]: Bret Vazquez MD Performed By: #### E RTPF, CK, ECENZ, VD25 #### [facility] [employer] [address] [place] [address] 69462 [place]: Bret Vazquez MD Type + Screenon 09-06-2022 Type + Screen Sample Expiration 09/08/2022,2359 Arm Band Number [id number] ABO/Rh(D) A POSITIVE Antibody Screen NEGATIVE Unit Number [id number] Blood Component Type Leukocyte Reduced Red Cell Unit Division 00 Status of Unit TRANSFUSED Transfusion Status OK TO TRANSFUSE Crossmatch Result COMPATIBLE Unit Number [id number] Blood Component Type Leukocyte Reduced Red Cell Unit Division 00 Status of Unit TRANSFUSED Transfusion Status OK TO TRANSFUSE Crossmatch Result COMPATIBLE Unit Number [id number] Blood Component Type Leukocyte Reduced Red Cell Unit Division 00 Status of Unit TRANSFUSED Transfusion Status OK TO TRANSFUSE Crossmatch Result COMPATIBLE Normal [facility] Comment on above: Performed By: #### B MPX, CDP #### [facility] [employer] [address] [place] [address] [phone] [place]: Bret Vazquez MD Performed By: #### E RTPF, CK, ECENZ, VD25 #### [address] [address] [place]: Bret Vazquez MD UA w/Reflex Cultureon 2021 Bilirubin, SemiQt,Ur Negative Normal NEG [facility] Comment on above: Performed By: #### D AU, UAX, UMICAO #### [address] [address] [place]: Bret Vazquez MD Performed By: #### E RTPF, CK, ECENZ, VD25 #### [address] [address] [place]: Bret Vazquez MD Blood, Urine Negative Normal NEG [facility] Comment on above: Performed By: #### D AU, UAX, UMICAO #### [address] [address] [place]: Bret Vazquez MD Performed By: #### E RTPF, CK, ECENZ, VD25 #### [address] [address] [place]: Brte Vazquez MD Clarity (U) Clear Normal CLEAR [facility] Comment on above: Performed By: #### D AU, UAX, UMICAO #### [address] [address] [place]: Bret Vazquez MD Performed By: #### E RTPF, CK, ECENZ, VD25 #### [address] [address] [place]: Bret Vazquez MD Color (U) Yellow Normal YEL [facility] Comment on above: Performed By: #### D AU, UAX, UMICAO #### [address] [phone] [place]: Bret Vazquez MD Performed By: #### E RTPF, CK, ECENZ, VD25 #### [address] [address] [place]: Bret Vazquez MD Glucose Ql (U) Negative Normal NEG [facility] Comment on above: Performed By: #### D AU, UAX, UMICAO #### [address] [address] [place]: Bret Vazquez MD Performed By: #### E RTPF, CK, ECENZ, VD25 #### [address] [address] [place]: Bret Vazquez MD Ketones Ql (U) Negative Normal NEG [facility] Comment on above: Performed By: #### D AU, UAX, UMICAO #### [address] [address] [place]: Bret Vazquez MD Performed By: #### E RTPF, CK, ECENZ, VD25 #### [address] [address] [place]: Bret Vazquez MD Leukocyte esterase Test strip Ql (U) Negative Normal NEG [facility] Comment on above: Performed By: #### D AU, UAX, UMICAO #### [address] [address] [place]: Bret Vazquez MD Performed By: #### E RTPF, CK, ECENZ, VD25 #### [address] [address] [place]: Bret Vazquez MD Nitrite,Ur Negative Normal NEG [facility] Comment on above: Performed By: #### D AU, UAX, UMICAO #### [address] [address] [place]: Bret Vazquez MD Performed By: #### E RTPF, CK, ECENZ, VD25 #### [address] [address] [place]: Bret Vazquez MD PH,Ur 5.0 Normal 5.0-8.0 [facility] Comment on above: Performed By: #### Jose R SAPP UAX, UMICAO #### [address] [address] [place]: Bret Vazquez MD Performed By: #### E RTPF, CK, ECENZ, VD25 #### [address] [address] [place]: Bret Vazquez MD Protein Ql (U) TRACE Abnormal NEG [facility] Comment on above: Performed By: #### Jose R SAPP UAX, UMICAO #### [address] [address] [place]: Bret Vazquez MD Performed By: #### E RTPF, CK, ECENZ, VD25 #### [address] [address] [place]: Bret Vazquez MD Spec. [place],Ur 1.070 High 1.005-1.03 0 [facility] Comment on above: Performed By: #### Jose R SAPP, UAX, UMICAO #### [facility] [employer] [address] [place] [address] 20423 [place]: Bret Vazquez MD Performed By: #### E RTPF, CK, ECENZ, VD25 #### [address] [address] [place]: Bret Vazquez MD Urobilinogen,Ur Normal Normal NORM [facility] Comment on above: Performed By: #### Jose R SAPP UAX, UMICAO #### [address] [address] [place]: Bret Vazquez MD Performed By: #### E RTPF, CK, ECENZ, VD25 #### [facility] [employer] [address] [place] [address] 63128 [place]: Bret Vazquez MD Urinalysis,Microon 2 Casts 2 TO 5 HYALINE Normal 0-8 [facility] Comment on above: Result Comment: Refe rence range defined for non-centrifuged specimen. Performed By: #### DONATO STARKSX, UMICAO #### [address] [address] [place]: Bret Vazquez MD Performed By: #### E RTPF, CK, ECENZ, VD25 #### [facility] [employer] [address] [place] [address] 95022 [place]: Bret Vazquez MD Crystals LM Nom (Urine sed) FEW Abnormal NONE [facility] Comment on above: Result Comment: CALC IUM OXALATE Performed By: #### GINI STARKS, UMICAO #### [address] [address] [place]: Bret Vazquez MD Performed By: #### E RTPF, CK, ECENZ, VD25 #### [facility] [employer] [address] [place] [address] 20534 [place]: Bret Vazquez MD Epithelial cells LM Ql (Urine sed) 2 TO 5 Normal 0-5 [facility] Comment on above: Performed By: #### Jose R SAPP UAX, UMICAO #### [facility] [employer] [address] [place] [address] 10206 [place]: Bret Vazquez MD Performed By: #### E RTPF, CK, ECENZ, VD25 #### [facility] [address] [place] [address] [place]: Bret Vazquez MD Urine RBC's 0 TO 2 Normal 0-4 [facility] Comment on above: Result Comment: Refe rence range defined for non-centrifuged specimen. Performed By: #### D AU, UAX, UMICAO #### [facility] [place] [address] [place]: Bret Vazquez MD Performed By: #### E RTPF, CK, ECENZ, VD25 #### [facility] [place] [address] [place]: Bret Vazquez MD Urine WBC's 2 TO 5 Normal 0-5 [facility] Comment on above: Performed By: #### D AU, UAX, UMICAO #### [address] [address] [place]: Bret Vazquez MD Performed By: #### E RTPF, CK, ECENZ, VD25 #### [address] [address] [place]: Bret Vazquez MD XR ANKLE LEFT (2 [...] Mau Tomas MD 09/06/22 Final result Normal [facility] XR ANKLE LEFT (MIN 3 VIEWS)o [...] Bo Jacques MD 09/06/22 Final result Normal [facility] XR ANKLE LEFT (MIN 3 VIEWS) [...] Mau Tomas MD 09/06/22 Final result Normal [facility] XR ANKLE LEFT (MIN 3 VIEWS) [...] Lizet Gonzalez MD 09/05/22 Final result Normal [facility] XR ELBOW LEFT (MIN 3 VIEWS)o [...] Los Araujo MD 09/05/22 Final result Normal [facility] XR ELBOW RIGHT (MIN 3 VIEWS) [...] Lizet Gonzalez MD 09/06/22 Final result Normal [facility] XR FOOT LEFT (MIN 3 VIEWS)on [...] Lizet Gonzalez MD 09/06/22 Final result Normal [facility] XR HAND LEFT (MIN 3 VIEWS)on [...] Aldo Felix MD 09/05/22 Final result Normal [facility] XR HAND RIGHT (MIN 3 VIEWS)o [...] moderate osteoarthritis at right 2nd carpometacarpal joint. Ppro-xz-lronisjg osteoarthritis of right distal radioulnar joint. IMPRESSION: No evidence of acute fracture or dislocation in right hand and wrist. 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 Interpreted by: Lizet Gonzalez MD Signed by: Lizet Gonzalez MD 09/06/22 Final result Normal [facility] XR KNEE LEFT (3 VIEWS)on XR [...] Lizet Gonzalez MD 09/05/22 Final result Normal [facility] XR KNEE RIGHT (1-2 VIEWS)on 09-06-2022 [...] Emili Pugh MD 09/06/22 Final result Normal [facility] XR PELVIS (MIN 3 VIEWS)on XR [...] Lizet Gonzalez MD 09/06/22 Final result Normal [facility] XR RADIUS ULNA LEFT (2 VIEWS [...] Los Araujo MD 09/05/22 Final result Normal [facility] XR RADIUS ULNA RIGHT (2 VIEW [...] Lizet Gonzalez MD 09/06/22 Final result Normal [facility] XR SHOULDER LEFT (MIN 2 VIEW [...] at left shoulder joint. Interpreted by: Lizet Gnozalez MD Signed by: Lizet Gonzalez MD 09/06/22 Final result Normal [facility] XR SHOULDER RIGHT (MIN 2 VIE [...] Lizet Gonzalez MD 09/06/22 Final result Normal [facility] XR TIBIA FIBULA RIGHT (2 VIE [...] Emili Pugh MD 09/06/22 Final result Normal [facility] XR WRIST LEFT (MIN 3 VIEWS)o [...] Aldo Felix MD 09/05/22 Final result Normal [facility] XR WRIST RIGHT (2 VIEWS)on 11-06-2021 [...] Aldo Felix MD 09/05/22 Final result Normal [facility] CT CERVICAL SPINE WO CONTRAS Ton [...] Los Araujo MD 09/05/22 Final result Normal [facility] CT CHEST ABDOMEN PELVIS W CO [...] Los Araujo MD 09/05/22 Final result Normal [facility] CT HEAD WO CONTRASTon 2021 CT [...] Rush Saavedra MD 09/05/22 Final result Normal [facility] CT LUMBAR SPINE TRAUMA RECON STRUCTIONon [...] Los Araujo MD 09/05/22 Final result Normal [facility] CT THORACIC SPINE TRAUMA REC ONSTRUCTIONon [...] Los Araujo MD 09/05/22 Final result Normal [facility] Creatine Kinaseon 09-05-2022 CK [Catalytic activity/Vol] 139 U/L Normal 39-308 [facility] Comment on above: Performed By: #### D AU, UAX, UMICAO #### [address] [address] [place]: Bret Vazquez MD Performed By: #### E RTPF, CK, ECENZ, VD25 #### [facility] [employer] [address] [place] [address] 84066 [place]: Bret Vazquez MD Trauma Profileon 09-05-2022 Anion gap [Moles/Vol] 11 mmol/L Normal 9-17 [facility] Comment on above: Performed By: #### B MPX, CDP #### [facility] [employer] [address] [place] [address] 31314 [place]: Bret Vazquez MD Performed By: #### E RTPF, GHLTEG #### [facility] [employer] [address] [place] [address] 96121 [place]: Bret Vazquez MD Chloride [Moles/Vol] 100 mmol/L Normal 98-107 [facility] Comment on above: Performed By: #### B MPX, CDP #### [facility] [employer] [address] [place] [address] 31363 [place]: Bret Vazquez MD Performed By: #### E RTPF, GHLTEG #### [facility] [address] [place] [address] 45378 [place]: Bret Vazquez MD CO2 [Moles/Vol] 21 mmol/L Normal 20-31 [facility] Comment on above: Performed By: #### B MPX, CDP #### [facility] [address] [place] [address] 08533 [place]: Bret Vazquez MD Performed By: #### E RTPF, GHLTEG #### [facility] [address] [place] [address] 31598 [place]: Bret Vazquez MD Creatinine [Mass/Vol] 0.71 mg/dL Normal 0.70-1.20 [facility] Comment on above: Performed By: #### B MPX, CDP #### [facility] [employer] [address] [place] [address] 90032 [place]: Bret Vazquez MD Performed By: #### E RTPF, GHLTEG #### [address] [address] [place]: Bret Vazquez MD Ethanol [Mass/Vol] mg/dL Normal <10 [facility] Comment on above: Performed By: #### B MPX, CDP #### [facility] [employer] [address] [place] [address] 40247 [place]: Bret Vazquez MD Performed By: #### E RTPF, GHLTEG #### [facility] [employer] [address] [place] [address] 25126 [place]: Bret Vazquez MD Ethanol percent <0.010 Normal <0.010 [facility] Comment on above: Performed By: #### B MPX, CDP #### [facility] [employer] [address] [place] [address] 47958 [place]: Bret Vazquez MD Performed By: #### KLARISSA MOJICAEG #### [facility] [address] [place] [address] 88800 [place]: Bret Vazquez MD GFR/1.73 sq M.predicted among non-blacks MDRD (S/P/Bld) [Vol rate/Area] 60 mL/min/{1.73_m2} Low >60 [facility] Comment on above: Result Comment: Effective [...] Performed By: #### B MPX, CDP #### [facility] [address] [place] [address]487 [place]: Bret Vazquez MD Performed By: #### E KLARISSA LOPEZEG #### [facility] [address] [place] [address] 92752 [place]: Bret Vazquez MD Glucose [Mass/Vol] 278 mg/dL High 70-99 [facility] Comment on above: Performed By: #### B MPX, CDP #### [facility] [address] [place] [address] 6[address]19 [place]: Bret Vazquez MD Performed By: #### E KLARISSA LOPEZEG #### [facility] [address] [place] [address] 6[address] [place]: Bret Vazquez MD Potassium [Moles/Vol] 3.3 mmol/L Low 3.7-5.3 [facility] Comment on above: Performed By: #### B MPX, CDP #### [facility] [address] [place] [address] 22715 [place]: Bret Vazquez MD Performed By: #### E RTPF, GHLTEG #### [address] [address] [place]: Bret Vazquez MD Sodium [Moles/Vol] 132 mmol/L Low 135-144 [facility] Comment on above: Performed By: #### B MPX, CDP #### [address] [address] [place]: Bret Vazquez MD Performed By: #### E RTPF, GHLTEG #### [address] [address] [place]: Bret Vazquez MD Urea nitrogen [Mass/Vol] 10 mg/dL Normal 8-23 [facility] Comment on above: Performed By: #### B MPX, CDP #### [address] [address] [place]: Bret Vazquez MD Performed By: #### E RTPF, GHLTEG #### [address] [address] [place]: Bret Vazquez MD Body Temp. 37.0 Normal [facility] Comment on above: Performed By: #### B MPX, CDP #### [address] [address] [place]: Bret Vazquez MD Performed By: #### E RTPF, GHLTEG #### [facility] [employer] [address] [place] [address] 48350 [place]: Bret Vazquez MD Carboxy Hgb 2.3 % Normal 0-5 [facility] Comment on above: Result Comment: Reference Range: Non-Smokers 0-2% Average Smoker 2-4% Heavy Smoker <10% Performed By: #### B MPX, CDP #### [address] [address] [place]: Bret Vazquez MD Performed By: #### Isidro RTRONALDO GHLTEG #### [address] [address] [place]: Bret Vazquez MD Ethanol [Mass/Vol] mg/dL Normal <10 [facility] Comment on above: Performed By: #### Jose R SAPP UAX, UMICAO #### [address] [address] [place]: Bret Vazquez MD Performed By: #### E RTPF CK, ECENZ, VD25 #### [address] [address] [place]: Bret Vazquez MD Ethanol percent <0.010 Normal <0.010 [facility] Comment on above: Performed By: #### GINI STARKS, UMICAO #### [address] [address] [place]: Bret Vazquez MD Performed By: #### Isidro RTPF CK, ECENZ, VD25 #### [address] [address] [place]: Bret Vazquez MD FIO2 INFORMATION NOT PROVIDED Normal [facility] Comment on above: Performed By: #### Jasmin MPX, CDP #### [address] [address] [place]: Bret Vazquez MD Performed By: #### Isidro RTRONALDO GHLTEG #### [address] [address] [place]: Bret Vazquez MD HCO3 (Bld) [Moles/Vol] 22.6 mmol/L Low 24-30 [facility] Comment on above: Performed By: #### Jasmin MPX, CDP #### [address] [place] [address] [place]: Bret Vazquez MD Performed By: #### E RTKLARISSA HIGGINSEG #### [address] [address] [place]: Bret Vazquez MD Negative Base Excess 3.3 mmol/L High 0.0-2.0 [facility] Comment on above: Performed By: #### B MPX, CDP #### [facility] [employer] [address] [place] [address]326 [place]: Bret Vazquez MD Performed By: #### E RTKLARISSA HIGGINSEG #### [address] [address] [place]: Bret Vazquez MD Oxygen saturation in Blood 87.4 % High 60.0-85.0 [facility] Comment on above: Performed By: #### B MPX, CDP #### [address] [address] [place]: Bret Vazquez MD Performed By: #### CHRISTY MOJICA #### [address] [address] [place]: Bret Vazuqez MD pCO2 47.1 mm Hg Normal 39-55 [facility] Comment on above: Performed By: #### B MPX, CDP #### [address] [address] [place]: Bret Vazquez MD Performed By: #### E RTKLARISSA HIGGINSEG #### [facility] [employer] [address] [place] [address] 8[address]30 [place]: Bret Vazquez MD pH (Bld) 7.303 [pH] Low 7.320-7.42 0 [facility] Comment on above: Performed By: #### B MPX, CDP #### [facility] [address] [place] [address] [place]: Bret Vazquez MD Performed By: #### E RTKLARISSA HIGGINSEG #### [facility] [address] [place] [address] [place]: Bret Vazquez MD pO2 62.0 mm Hg High 30-50 [facility] Comment on above: Performed By: #### B MPX, CDP #### [facility] [address] [place] [address] [place]: Bret Vazquez MD Performed By: #### E RTKLARISSA HIGGINSEG #### [facility] [address] [place] [address] 60121 [place]: Bret Vazquez MD Anion gap [Moles/Vol] 11 mmol/L Normal 9-17 [facility] Comment on above: Performed By: #### D SENAIT, UAX, UMICAO #### [facility] [address] [place] [address]167 [place]: Bret Vazquez MD Performed By: #### E RTPF CK, ECENZ, VD25 #### [facility] [address] [place] [address]21 [place]: Bret Vazquez MD Chloride [Moles/Vol] 106 mmol/L Normal 98-107 [facility] Comment on above: Performed By: #### D AU, UAX, UMICAO #### [facility] [address] [place] [address] [place]: Bret Vazquez MD Performed By: #### E RTPF, CK, ECENZ, VD25 #### [facility] [address] [place] [address] [place]: Bret Vazquez MD CO2 [Moles/Vol] 21 mmol/L Normal 20-31 [facility] Comment on above: Performed By: #### D AU UAX, UMICAO #### [facility] [address] [place] [address] [place]: Bret Vazquez MD Performed By: #### E RTPF, CK, ECENZ, VD25 #### [address] [address] [place]: Bret Vazquez MD Creatinine [Mass/Vol] 0.76 mg/dL Normal 0.70-1.20 [facility] Comment on above: Performed By: #### D SENAIT UAPriti, UMICAO #### [address] [address] [place]: Bret Vazquez MD Performed By: #### E RTPF, CK, ECENZ, VD25 #### [address] [address] [place]: Bret Vazquez MD GFR/1.73 sq M.predicted among non-blacks MDRD (S/P/Bld) [Vol rate/Area] 60 mL/min/{1.73_m2} Low >60 [facility] Comment on above: Result Comment: Effective [...] renal tubular secretion. Performed By: #### D SENAIT UAX, UMICAO #### [address] [address] [place]: Bret Vazquez MD Performed By: #### E RTPF, CK, ECENZ, VD25 #### [address] [address] [place]: Bret Vazquez MD Glucose [Mass/Vol] 113 mg/dL High 70-99 [facility] Comment on above: Performed By: #### DONATO STARKSX, UMICAO #### [facility] [address] [place] [address] [place]: Bret Vazquez MD Performed By: #### E RTPF, CK, ECENZ, VD25 #### [facility] [address] [place] [address] [place]: Bret Vazquez MD Potassium [Moles/Vol] 3.9 mmol/L Normal 3.7-5.3 [facility] Comment on above: Performed By: #### Jose R SAPP UAPriti, UMICAO #### [facility] [address] [place] [address] [place]: Bret Vazquez MD Performed By: #### E RTPF, CK, ECENZ, VD25 #### [facility] [address] [place] [address] 19920 [place]: Bret Vazquez MD Sodium [Moles/Vol] 138 mmol/L Normal 135-144 [facility] Comment on above: Performed By: #### GINI STARKS, UMICAO #### [facility] [address] [place] [address] [place]: Bret Vazquez MD Performed By: #### E RTPF, CK, ECENZ, VD25 #### [facility] [address] [place] [address] [place]: Bret Vazquez MD Urea nitrogen [Mass/Vol] 11 mg/dL Normal 8-23 [facility] Comment on above: Performed By: #### Jose R SAPP, UAX, UMICAO #### [facility] [address] [place] [address]14 [place]: Bret Vazquez MD Performed By: #### E RTPF, CK, ECENZ, VD25 #### [facility] [employer] [address] [place] [address] [place]: Bret Vazquez MD aPTT Coag (Bld) [Time] 26.0 s Normal 20.5-30.5 [facility] Comment on above: Result Comment: IV Heparin Therapy Range: 48.6-77.8 Performed By: #### GINI STARKS, UMICAO #### [facility] [address] [place] [address] 8[address]90 [place]: Bret Vazquez MD Performed By: #### E RTPF, CK, ECENZ, VD25 #### [facility] [address] [place] [address] 14901 [place]: Bret Vazquez MD INR Coag (PPP) [Relative time] 2.1 {INR} Normal [facility] Comment on above: Result Comment: Therapeutic Range: Moderate Anticoagulant Intensity: INR = 2.0-3.0 High Anticoagulant Intensity: INR = 2.5-3.5 Performed By: #### GINI STARKS, UMICAO #### [facility] [employer] [address] [place] [address]30 [place]: Bret Vazquez MD Performed By: #### E RTPF, CK, ECENZ, VD25 #### [facility] [employer] [address] [place] [address] [place]: Bret aVzquez MD PT Coag (PPP) [Time] 20.8 s High 9.1-12.3 [facility] Comment on above: Performed By: #### DONATO STARKSX, UMICAO #### [facility] [employer] [address] [place] [address] [place]: Bret Vazquez MD Performed By: #### E RTPF, CK, ECENZ, VD25 #### [facility] [employer] [address] [place] [address]07 [place]: Bret Vazquez MD Body Temp. 37.0 Normal [facility] Comment on above: Performed By: #### Jose R AU, UAX, UMICAO #### [facility] [address] [place] [address] [place]: Bret Vazquez MD Performed By: #### E RTPF, CK, ECENZ, VD25 #### [facility] [address] [place] [address] 13248 [place]: Bret Vazquez MD Carboxy Hgb 0.6 % Normal 0-5 [facility] Comment on above: Result Comment: Reference Range: Non-Smokers 0-2% Average Smoker 2-4% Heavy Smoker <10% Performed By: #### Jose R SAPP, UAX, UMICAO #### [address] [address] [place]: Bret Vazquez MD Performed By: #### E RTPF, CK, ECENZ, VD25 #### [facility] [employer] [address] [place] [address] [place]: Bret Vazquez MD FIO2 INFORMATION NOT PROVIDED Normal [facility] Comment on above: Performed By: #### Jose R SAPP, UAX, UMICAO #### [address] [address] [place]: Bret Vazquez MD Performed By: #### E RTPF, CK, ECENZ, VD25 #### [facility] [employer] [address] [place] [address] [place]: Bret Vazquez MD HCO3 (Bld) [Moles/Vol] 24.8 mmol/L Normal 24-30 M [facility] Comment on above: Performed By: #### Jose R AU, UAX, UMICAO #### [facility] [employer] [address] [place] [address] [place]: Bret Vazquez MD Performed By: #### E RTPF, CK, ECENZ, VD25 #### [facility] [employer] [address] [place] [address] [place]: Bret Vazquez MD Negative Base Excess 1.2 mmol/L Normal 0.0-2.0 [facility] Comment on above: Performed By: #### GINI STARKS, UMICAO #### [facility] [employer] [address] [place] [address] [place]: Bret Vazquez MD Performed By: #### E RTPF, CK, ECENZ, VD25 #### [facility] [employer] [address] [place] [address] [place]: Bret Vazquez MD Oxygen saturation in Blood 45.2 % Low 60.0-85.0 [facility] Comment on above: Performed By: #### GINI STARKS, UMICAO #### [facility] [employer] [address] [place] [address] [place]: Bret Vazquez MD Performed By: #### E RTBakariF, CK, ECENZ, VD25 #### [facility] [employer] [address] [place] [address] 330[address] [place]: Brte Vazquez MD pCO2 49.5 mm Hg Normal 39-55 [facility] Comment on above: Performed By: #### GINI STARKS, UMICAO #### [facility] [employer] [address] [place] [address] [place]: Bret Vazquez MD Performed By: #### E RTPF, CK, ECENZ, VD25 #### [facility] [employer] [address] [place] [address] 18467 [place]: Bret Vazquez MD pH (Bld) 7.320 [pH] Normal 7.320-7.42 0 [facility] Comment on above: Performed By: #### Jose R SAPP UAX, UMICAO #### [facility] [address] [place] [address]11 [place]: Bret Vazquez MD Performed By: #### E RTPF, CK, ECENZ, VD25 #### [facility] [address] [place] [address] [place]: Bret Vazquez MD pO2 27.1 mm Hg Low 30-50 [facility] Comment on above: Performed By: #### D AU, UAX, UMICAO #### [facility] [address] [place] [address] 48669 [place]: Bret Vazquez MD Performed By: #### E RTPF, CK, ECENZ, VD25 #### [facility] [address] [place] [address] 64050 [place]: Bret Vazquez MD Erythrocyte distribution width (RBC) [Ratio] 15.9 % High 11.8-14.4 [facility] Comment on above: Performed By: #### Jose R SAPP, UAX, UMICAO #### [facility] [employer] [address] [place] [address] [place]: Bret Vazquez MD Performed By: #### E RTPF, CK, ECENZ, VD25 #### [facility] [employer] [address] [place] [address] 12659 [place]: Bret Vazquez MD Hematocrit (Bld) [Volume fraction] 38.2 % Low 40.7-50.3 [facility] Comment on above: Performed By: #### Jose R AU, UAX, UMICAO #### [facility] [address] [place] [address]11 [place]: Bret Vazquez MD Performed By: #### E RTPF, CK, ECENZ, VD25 #### [facility] [address] [place] [address] 10122 [place]: Bret Vazquez MD Hemoglobin (Bld) [Mass/Vol] 12.3 g/dL Low 13.0-17.0 [facility] Comment on above: Performed By: #### DONATO STARKSX, UMICAO #### [facility] [address] [place] [address] 07476 [place]: Bret Vazquez MD Performed By: #### E RTPF, CK, ECENZ, VD25 #### [facility] [address] [place] [address] 82766 [place]: Bret Vazquez MD MCH (RBC) [Entitic mass] 32.1 pg Normal 25.2-33.5 [facility] Comment on above: Performed By: #### GINI STARKS, UMICAO #### [address] [address] [place]: Bret Vazquez MD Performed By: #### E RTPF, CK, ECENZ, VD25 #### [address] [address] [place]: Bret Vazquez MD MCHC (RBC) [Mass/Vol] 32.2 g/dL Normal 28.4-34.8 [facility] Comment on above: Performed By: #### GINI STARKS, UMICAO #### [address] [address] [place]: Bret Vazquez MD Performed By: #### E RTPF, CK, ECENZ, VD25 #### [address] [address] [place]: Bret Vazquez MD MCV (RBC) [Entitic vol] 99.7 fL Normal 82.6-102.9 M [facility] Comment on above: Performed By: #### Jose R SAPP UAX, UMICAO #### [address] [address] [place]: Bret Vazquez MD Performed By: #### E RTPF, CK, ECENZ, VD25 #### [address] [address] [place]: Bret Vazquez MD NRBC Automated 0.0 per 100 WBC Normal 0.0 [facility] Comment on above: Performed By: #### D AU, UAX, UMICAO #### [facility] [address] [place] [address] 60470 [place]: Bret Vazquez MD Performed By: #### E RTPF, CK, ECENZ, VD25 #### [facility] [employer] [address] [place] [address] 10171 [place]: Bret Vazquez MD Platelet mean volume (Bld) [Entitic vol] 10.0 fL Normal 8.1-13.5 [facility] Comment on above: Performed By: #### Jose R AU, UAX, UMICAO #### [address] [address] [place]: Bret Vazquez MD Performed By: #### E RTPF, CK, ECENZ, VD25 #### [facility] [employer] [address] [place] [address] [place]: Bret Vazquez MD Platelets (Bld) [#/Vol] 307 10*3/uL Normal 138-453 [facility] Comment on above: Performed By: #### D AU, UAX, UMICAO #### [facility] [employer] [address] [place] [address] 275[address] [place]: Bret Vazquez MD Performed By: #### E RTPF, CK, ECENZ, VD25 #### [facility] [employer] [address] [place] [address]227 [place]: Bret Vazquez MD RBC (Bld) [#/Vol] 3.83 10*6/uL Low 4.21-5.77 [facility] Comment on above: Performed By: #### Jose R SAPP, UAX, UMICAO #### [facility] [address] [place] [address] [place]: Bret Vazquez MD Performed By: #### E RTPF, CK, ECENZ, VD25 #### [facility] [address] [place] [address] [place]: Bret Vazquez MD WBC (Bld) [#/Vol] 11.5 10*3/uL High 3.5-11.3 [facility] Comment on above: Performed By: #### Jose R SAPP, UAX, UMICAO #### [facility] [employer] [address] [place] [address]17 [place]: Bret Vazquez MD Performed By: #### E RTPF, CK, ECENZ, VD25 #### [facility] [employer] [address] [place] [address] 97[address] [place]: Bret Vazquez MD [employer] BILL FOR SERVICES PERFORMED Normal [facility] Comment on above: Performed By: #### Jose R SAPP, UAX, UMICAO #### [facility] [employer] [address] [place] [address] 01156 [place]: Bret Vazquez MD Performed By: #### E RTPF, CK, ECENZ, VD25 #### [facility] [employer] [address] [place] [address] 17694 [place]: Bret Vazquez MD Trop/Myoglobinon 09-05-2022 Myoglobin [Mass/Vol] 377 ng/mL High 28-72 [facility] Comment on above: Performed By: #### Jose R SAPP, UAX, UMICAO #### [facility] [employer] [address] [place] [address] 97956 [place]: Bret Vazquez MD Performed By: #### E RTPF, CK, ECENZ, VD25 #### [employer] [address] [place] [address] 72267 [place]: Bret Vazquez MD Troponin, High Sens 12 ng/L Normal 0-22 [facility] Comment on above: Result Comment: High Sensitivity Troponin values cannot be compared with other Troponin methodologies. Patients with high levels of Biotin oral intake (i.e >5mg/day) may have falsely decreased Troponin levels. Samples collected within 8 hours of biotin intake may require additional information for diagnosis. Performed By: #### Jose R SAPP, UAX, UMICAO #### [employer] [address] [place] [address]80 [place]: Bret Vazquez MD Performed By: #### E RTPF, CK, ECENZ, VD25 #### [employer] [address] [place] [address] 09992 [place]: Bret Vazquez MD Vitamin D 25 OHon 09-05-2022 Vitamin D 25 OH 37.8 ng/mL Normal >29.9 [facility] Comment on above: Result Comment: Reference Range: Vitamin D status Range Deficiency <20 ng/mL Mild Deficiency 20-30 ng/mL Sufficiency 30-100 ng/mL Toxicity >100 ng/mL Performed By: #### Jose R AU, UAX, UMICAO #### [employer] [address] [place] [address]226 [place]: Bret Vazqeuz MD Performed By: #### E RTPF, CK, ECENZ, VD25 #### [employer] [address] [place] [address]3276 [place]: Bret Vazquez MD XR TIBIA FIBULA LEFT [...] Los Araujo MD 09/05/22 Final result Normal [facility] Q - CBC (H/H,RBC,INDICES,WBC ,PLT)on 03-11-2022 Erythrocyte distribution width (RBC) [Ratio] 13.7 % Normal 11.0-15.0 [facility] [employer] Member Comment on above: Order Comment: [facility] performed at: [facility], [address] [place] [address], [phone], [employer] Loader [employer] Unloader: Juan Daniel Cool MDQuest Collection Date/Time: Results Received Date/Time: [id number] Reported Date/Time: Performed By: #### T NELY, CMP, LIPD #### [facility] [address] [place], [place] [id number] Hematocrit (Bld) [Volume fraction] 42.5 % Normal 38.5-50.0 [facility] [employer] Member Comment on above: Order Comment: [facility] performed at: [employer], [facility], [address] [place] [address], [address] [place] [address], [phone], [employer]er [employer] Unloader: Juan Daniel Cool MDQuest Collection Date/Time: [id number] Results Received Date/Time: [id number] Reported Date/Time: Performed By: #### T SH, CMP, LIPD #### [facility] [address] [place], [place] [id number] Hemoglobin (Bld) [Mass/Vol] 14.3 g/dL Normal 13.2-17.1 [facility] [employer] Member Comment on above: Order Comment: [facility] performed at: [employer], [facility], [address] [place] [address], [address] [place] [address], [address] [place] [address], [employer]loader: Juan Daniel Mckeon Collection Date/Time: Results Received Date/Time: Reported Date/Time: Performed By: #### T SH, CMP, LIPD #### [facility] [address] [place], [place] [id number] MCH (RBC) [Entitic mass] 32.9 pg Normal 27.0-33.0 [facility] [employer] Member Comment on above: Order Comment: [facility] performed at: [employer], [facility], [address] [place] [address], [address] [place] [address], [phone], [employer] Unloader: Juan Daniel Mckeon Collection Date/Time: Results Received Date/Time: Reported Date/Time: Performed By: #### T SH, CMP, LIPD #### [facility] [address] [place], [place] [id number] MCHC (RBC) [Mass/Vol] 33.6 g/dL Normal 32.0-36.0 [facility] Specialist Comment on above: Order Comment: [facility] performed at: [employer], [facility], [address] [place] [address], [address] [place] [address], [phone], [employer] Loader [employer] Unloader: Juan Daniel Mckeon Collection Date/Time: Results Received Date/Time: Reported Date/Time: Performed By: #### T SH, CMP, LIPD #### [facility] [address] [place], [place] [id number] MCV (RBC) [Entitic vol] 97.9 fL Normal 80.0-100.0 N [facility] [employer] Member Comment on above: Order Comment: [facility] performed at: [employer], [facility], [address] [facility], [address] [place] [address], [address] [place] [address], [employer] Loader [employer] Unloader: Juan Daniel Mckeon Collection Date/Time: Results Received Date/Time: Reported Date/Time: Performed By: #### T SH, CMP, LIPD #### [facility] [address] [place], [place] [id number] Platelet mean volume (Bld) [Entitic vol] 11.0 fL Normal 7.5-12.5 [facility] [employer] Member Comment on above: Order Comment: [facility] performed at: [employer], [facility], [address] [place] [address], [address] [place] [address], [address] [place] [address], [employer]loader: Juan Daniel Mckeon Collection Date/Time: Results Received Date/Time: Reported Date/Time: Performed By: #### T SH, CMP, LIPD #### [facility] [address] [place], [place] [id number] Platelets (Bld) [#/Vol] 398 10*3/uL Normal 140-400 [facility] [employer] Member Comment on above: Order Comment: Quest performed at: [employer], [facility], [address] [place] [address], [address] [place] [address], [phone], [employer] Loader [employer] Unloader: Juan Daniel Mckeon Collection Date/Time: Results Received Date/Time: [id number] Reported Date/Time: Performed By: #### T SH, CMP, LIPD #### [facility] [address] [place], [place] [id number] RBC (Bld) [#/Vol] 4.34 10*6/uL Normal 4.20-5.80 [facility] [employer] Member Comment on above: Order Comment: [facility] performed at: [employer], [facility], [address] [place] [address], [address] [place] [address], [phone], [employer] Loader [employer] Unloader: Juan Daniel Mckeon Collection Date/Time: Results Received Date/Time: [id number] Reported Date/Time: Performed By: #### T SH, CMP, LIPD #### [facility] [address] [place], [place] [id number] WBC (Bld) [#/Vol] 9.7 10*3/uL Normal 3.8-10.8 Brigitte mcarthur [place] [employer] Member Comment on above: Order Comment: Quest performed at: [facility], [facility], [address] [facility], [address] [place] [address], [phone], [employer] Loader [employer] Unloader: Juan Daniel Mckeon Collection Date/Time: Results Received Date/Time: Reported Date/Time: Performed By: #### T SH, CMP, LIPD #### [facility] [address] [place], [place] [id number] Comprehensive Metabolic Pane [facility] 03-08-2022 Albumin [Mass/Vol] 3.2 g/dL Low 3.6-5.1 Brigitte rn [place] [employer] Member Comment on above: Performed By: #### T SH, CMP, LIPD #### [facility] [address] [place], [place] [id number] Albumin/Globulin [Mass ratio] 1.2 {ratio} Normal 1.0-2.5 [facility] [employer] Member Comment on above: Performed By: #### T SH, CMP, LIPD #### [facility] [address] [place], [place] [id number] ALP [Catalytic activity/Vol] 100 U/L Normal 40-129 [facility] [employer] Member Comment on above: Performed By: #### T SH, CMP, LIPD #### [facility] [address] [place], [place] [id number] ALT [Catalytic activity/Vol] 11 U/L Normal 9-46 [facility] [employer] Member Comment on above: Result Comment: 09/23 Female reference range changed. Performed By: #### T SH, CMP, LIPD #### [facility] [address] [place], [place] [id number] Anion gap [Moles/Vol] 18 mmol/L Normal 12-20 [facility] Comment on above: Result Comment: Lucía ctive 10/29/2019 reference range changed. Performed By: #### T SH, CMP, LIPD #### [facility] [address] [place], [place] [id number] AST [Catalytic activity/Vol] 14 U/L Normal 10-40 [facility] Comment on above: Performed By: #### T SH, CMP, LIPD #### [facility] [address] [place], [place] [id number] Bilirubin [Mass/Vol] 1.17 mg/dL Normal 0.30-1.20 [facility] Comment on above: Performed By: #### T SH, CMP, LIPD #### [facility] [address] [place], [place] [id number] BUN/CREA 14 Ratio Normal 6-22 [facility] Comment on above: Performed By: #### T SH, CMP, LIPD #### [facility] [address] [place], [place] [id number] Calcium [Mass/Vol] 8.3 mg/dL Low 8.6-10.2 [facility] Comment on above: Performed By: #### T SH, CMP, LIPD #### [facility] [address] [place], [place] [id number] Chloride [Moles/Vol] 103 mmol/L Normal 98-107 [facility] Comment on above: Performed By: #### T SH, CMP, LIPD #### [facility] [address] [place], [place] [id number] CO2 [Moles/Vol] 25 mmol/L Normal 20-31 [facility] Comment on above: Performed By: #### T SH, CMP, LIPD #### [facility] [address] [place], [place] [id number] Creatinine [Mass/Vol] 0.8 mg/dL Normal 0.7-1.4 [facility] Comment on above: Performed By: #### T SH, CMP, LIPD #### [facility] [address] [place], [place] [id number] eGFRAA 118 mL/min/1.73m2 Normal >60 [facility] Specialist Comment on above: Performed By: #### T SH, CMP, LIPD #### [facility] [address] [place], [place] [id number] eGFRNAA 97 mL/min/1.73m2 Normal >60 [facility] Specialist Comment on above: Performed By: #### T NELY, CMP, LIPD #### [facility] [address] [place], [place] [id number] Globulin (S) [Mass/Vol] 2.6 g/dL Normal 1.9-3.7 [facility] Specialist Comment on above: Performed By: #### T NELY, CMP, LIPD #### [facility] [address] [place], [place] [id number] Glucose [Mass/Vol] 110 mg/dL High 65-99 Brigitte mcarthur [place] [employer] Member Comment on above: Result Comment: For FASTING Glucose --- ADA reference ranges: Normal 65-99 mg/dl Prediabetes 100-125 Diabetes >/= 126 Performed By: #### T NELY, CMP, LIPD #### [facility] [address] [place], [place] [id number] Potassium [Moles/Vol] 3.5 mmol/L Normal 3.5-5.5 [facility] Specialist Comment on above: Performed By: #### T NELY, CMP, LIPD #### [facility] [address] [place], [place] [id number] Protein [Mass/Vol] 5.8 g/dL Low 6.1-8.1 Brigitte mcarthur [place] [employer] Member Comment on above: Performed By: #### T SH, CMP, LIPD #### [facility] [address] [place], [place] [id number] Sodium [Moles/Vol] 142 mmol/L Normal 135-146 Brigitte mcarthur [place] [employer] Member Comment on above: Performed By: #### T SH, CMP, LIPD #### [facility] [address] [place], [place] [id number] Urea nitrogen [Mass/Vol] 11 mg/dL Normal 7-25 [facility] Specialist Comment on above: Performed By: #### T SH, CMP, LIPD #### [facility] [address] [place], [place] [id number] Lipid Panelon 03-08-2022 Cholesterol [Mass/Vol] 177 mg/dL Normal 125-200 [facility]: Result Comment: Low risk < 200mg/dL Borderline risk 201-239 mg/dl High risk > or equal to 240 Performed By: #### T SH, CMP, LIPD #### [facility] [address] [place], [place] [id number] Cholesterol in HDL [Mass/Vol] 87 mg/dL Normal >40 [facility] Specialist Comment on above: Result Comment: High Cardiovascular Risk HDL <40 mg/dL Low Cardiovascular Risk HDL > or equal to 60 mg/dl Performed By: #### T NELY, CMP, LIPD #### [facility] [address] [place], [place] [id number] Cholesterol in LDL [Mass/Vol] 64 mg/dL Normal [facility] Specialist Comment on above: Result Comment: LDL ATP III CLASSIFICATION LDL less than 100 mg/dl Optimal LDL 100-129 mg/dl Near or above optimal LDL 130-159 Borderline high LDL 160-189 High LDL greater than 189 mg/dl Very High Performed By: #### T SH, CMP, LIPD #### [facility] [address] [place], [place] [id number] Cholesterol in VLDL [Mass/Vol] 26 mg/dL Normal [facility] Specialist Comment on above: Performed By: #### T SH, CMP, LIPD #### [facility] [address] [place], [place] [id number] Cholesterol.total/Choles terol in HDL [Mass ratio] 2 {ratio} Normal [facility] Specialist Comment on above: Performed By: #### T SH, CMP, LIPD #### [facility] [address] [place], [place] [id number] Triglyceride [Mass/Vol] 131 mg/dL Normal 30-150 [facility] Comment on above: Result Comment: TRIG ATPIII CLASSIFICATIONS TRIG less than 150 mg/dl Normal TRIG 150-199 mg/dl Borderline High TRIG 200-500 mg/dl High TRIG greather than 500 mg/dl Very High Performed By: #### T RAMONA MCKAY, LIPD #### [facility] [address] [place], [place] [id number] PSA SCREEN (MEDICARE)on 02-21 TPSA 6.330 ng/mL High <4.000 [facility] [employer] Member Comment on above: Result Comment: PSA Test Method: ECLIA/Horacio e 601 Performed By: #### T RAMONA MCKAY, LIPD #### [facility] [address] [place], [place] [id number] TSHon 03-08-2022 TSH 1.060 uIU/mL Normal 0.400-4.50 0 [facility] [employer] Member Comment on above: Performed By: #### T RAMONA MCKAY, LIPD #### [facility] [address] [place], [place] [id number] Operative Reporton Operative Report MR#: [id number] I [facility] Pt. Name: Indio Collado Room #: [id number] Discharge 02/16/2022 Date: Birthdate: 1955 OPERATIVE REPORT DATE OF SURGERY: 02/15/2022 SURGEON: Christopher Yang M.D. TRUCK HOP: MD Kell and ANABELL Cedeño. ANESTHESIA: General [...] arthrotomy was closed itself with #2 interrupted [id number] suture. The remainder of the incision closed [...] Yang M.D. Date Trans: 02/17/2022 01:02 P/mmo [id number] cc: Christopher Velazquez M.D. [address] [place] [address] Normal [facility] BASIC METABOLIC PANELon 04-2 Calcium [Mass/Vol] 8.1 mg/dL Low 8.6-10.3 [facility] Comment on above: Order Comment: No: D o not add to previous draw Performed By: #### 3 1595 #### [facility] [address] [place] [address], [place] Chloride [Moles/Vol] 101 mmol/L Normal 98-107 [facility] Comment on above: Order Comment: No: D o not add to previous draw Performed By: #### 3 1595 #### [facility] [address] [place] [address], [place] CO2 [Moles/Vol] 27 mmol/L Normal 21-31 [facility] Comment on above: Order Comment: No: D o not add to previous draw Performed By: #### 3 1595 #### [facility] [address] [place] [address], [place] Creatinine [Mass/Vol] 0.68 mg/dL Low 0.70-1.30 [facility] Comment on above: Order Comment: No: D o not add to previous draw Performed By: #### 3 1595 #### [facility] [address] [place] [address], [place] GFR/1.73 sq M.predicted among blacks MDRD (S/P/Bld) [Vol rate/Area] mL/min/{1.73_m2} Normal >60 [facility] Comment on above: Order Comment: No: D o not add to previous draw Performed By: #### 3 1595 #### [facility] [address] [place] [place] [address], [place] GFR/1.73 sq M.predicted among non-blacks MDRD (S/P/Bld) [Vol rate/Area] mL/min/{1.73_m2} Normal >60 [facility] Comment on above: Order Comment: No: D o not add to previous draw Performed By: #### 3 [id number] #### [facility] [address] [place] [address], [place] Glucose [Mass/Vol] 124 mg/dL High 70-100 [facility] Comment on above: Order Comment: No: D o not add to previous draw Performed By: #### 3 1595 #### [facility] [address] [place] [address], [place] Potassium [Moles/Vol] 3.3 mmol/L Low 3.5-5.1 [facility] Comment on above: Order Comment: No: D o not add to previous draw Performed By: #### 3 1595 #### [facility] [address] [place] [address], [place] Sodium [Moles/Vol] 136 mmol/L Normal 136-145 [facility] Comment on above: Order Comment: No: D o not add to previous draw Performed By: #### 3 1595 #### [facility] [address] Urea nitrogen [Mass/Vol] 11 mg/dL Normal 7-25 [facility] Comment on above: Order Comment: No: D o not add to previous draw Performed By: #### 3 1595 #### [facility] [address] CBC W/DIFFon 02-16-2022 ABS IMM GRANS 0.1 10*3/uL Normal 0.0-0.2 [facility] Comment on above: Order Comment: No: D o not add to previous draw Performed By: #### 3 1595 #### [facility] [address] [place] [address], [facility] ABS NEUTROPHILS 11.2 10*3/uL High 1.6-7.6 [facility] Comment on above: Order Comment: No: D o not add to previous draw Performed By: #### 3 1595 #### [facility] [address] [place] [address], [facility] Basophils (Bld) [#/Vol] 0.0 10*3/uL Normal 0.0-0.2 [facility] Comment on above: Order Comment: No: D o not add to previous draw Performed By: #### 3 1595 #### [facility] [address] [place] [address], [facility] Basophils/100 WBC (Bld) 0.1 % Normal 0.0-1.0 T [facility] Comment on above: Order Comment: No: D o not add to previous draw Performed By: #### 3 1595 #### [facility] [address] [place] [address], [facility] Eosinophils (Bld) [#/Vol] 0.0 10*3/uL Normal 0.0-0.5 [facility] Comment on above: Order Comment: No: D o not add to previous draw Performed By: #### 3 1595 #### [facility] [address] [facility] [place] [place] [address], [facility] Eosinophils/100 WBC (Bld) 0.0 % Normal 0.0-6.0 [facility] Comment on above: Order Comment: No: D o not add to previous draw Performed By: #### 3 1595 #### [facility] [address] [place] [address], [facility] Erythrocyte distribution width (RBC) [Ratio] 15.9 % High 11.5-15.0 [facility] Comment on above: Order Comment: No: D o not add to previous draw Performed By: #### 3 1595 #### [facility] [address] [place] [address], [facility] Hematocrit (Bld) [Volume fraction] 34.9 % Low 39.0-50.0 [facility] Comment on above: Order Comment: No: D o not add to previous draw Performed By: #### 3 1595 #### [facility] [address] [facility] [place] [address], [facility] Hemoglobin (Bld) [Mass/Vol] 12.0 g/dL Low 13.0-17.0 [facility] Comment on above: Order Comment: No: D o not add to previous draw Performed By: #### 3 1595 #### [facility] [address] [place] [address], [facility] IMMATURE GRANS 0.5 % Normal 0.0-1.0 [facility] Comment on above: Order Comment: No: D o not add to previous draw Performed By: #### 3 1595 #### [facility] [address] [place] [address], [facility] Lymphocytes (Bld) [#/Vol] 0.8 10*3/uL Low 1.2-4.0 [facility] Comment on above: Order Comment: No: D o not add to previous draw Performed By: #### 3 1595 #### [facility] [address] [place] [address], [facility] Lymphocytes/100 WBC (Bld) 6.4 % Low 20.0-45.0 [facility] Comment on above: Order Comment: No: D o not add to previous draw Performed By: #### 3 1595 #### [facility] [address] [place] [address], [facility] MCH (RBC) [Entitic mass] 31.9 pg Normal 27.0-33.0 [facility] Comment on above: Order Comment: No: D o not add to previous draw Performed By: #### 3 1595 #### [facility] [address] [place] [address], [facility] MCHC (RBC) [Mass/Vol] 34.4 g/dL Normal 32.0-35.0 [facility] Comment on above: Order Comment: No: D o not add to previous draw Performed By: #### 3 1595 #### [facility] [address] [place] [address], [facility] MCV (RBC) [Entitic vol] 92.8 fL Normal 82.0-98.0 T [facility] Comment on above: Order Comment: No: D o not add to previous draw Performed By: #### 3 1595 #### [facility] [address] [place] [address], [facility] Monocytes (Bld) [#/Vol] 0.8 10*3/uL Normal 0.1-1.0 [facility] Comment on above: Order Comment: No: D o not add to previous draw Performed By: #### 3 1595 #### [facility] [address] [place] [id number], [facility] MONOS 5.9 % Normal 5.0-12.0 [facility] Comment on above: Order Comment: No: D o not add to previous draw Performed By: #### 3 1595 #### [facility] [address] [place] [address], [facility] Neutrophils/100 WBC (Bld) 87.1 % High 40.0-72.0 [facility] Comment on above: Order Comment: No: D o not add to previous draw Performed By: #### 3 1595 #### [facility] [address] [place] [address], [facility] Nucleated RBC/100 WBC (Bld) [Ratio] 0 % Normal 0-0 [facility] Comment on above: Order Comment: No: D o not add to previous draw Performed By: #### 3 1595 #### [facility] [address] [place] [address], [facility] PLAT CNT 250 10*3/uL Normal 150-400 [facility] Comment on above: Order Comment: No: D o not add to previous draw Performed By: #### 3 1595 #### [facility] [address] [place] [id number], [facility] RBC (Bld) [#/Vol] 3.76 10*6/uL Low 4.20-5.70 [facility] Comment on above: Order Comment: No: D o not add to previous draw Performed By: #### 3 1595 #### [facility] [address] [place] [id number], [facility] WBC (Bld) [#/Vol] 12.88 10*3/uL High 4.00-10.60 [facility] Comment on above: Order Comment: No: D o not add to previous draw Performed By: #### 3 1595 #### [facility] [address] [place] [id number], [facility] PROTHROMBIN TIMEon 2 INR Coag (PPP) [Relative time] 1.20 {INR} High 0.91-1.16 [facility] Comment on above: Order Comment: No: [...] 1995;108:231S-246S. Performed By: #### 3 1595 #### [facility] [address] [facility]. [address] PT Coag (PPP) [Time] 15.2 s High 12.3-14.8 [facility] Comment on above: Order Comment: No: D o not add to previous draw Result Comment: ALL RESULTS MUST BE INTERPRETED WITH RESPECT TO BLOOD DRAWING ARTIFACT OR DILUTION ERROR OF ANTICOAGULANT AT THE TIME OF SAMPLING. Performed By: #### 3 1595 #### [facility] [address] *ANAEROBIC CULTUREon 022 *ANAEROBIC CULTURE Clinical Report: (D) Specimen/Source: TISSUE/INTRAOP SPEC Collected: 02/15/2022 10:06 Status: Final Last Updated: 02/20/2022 09:09 (1) 3. Right Medial Lateral Synovium CULT RES (Final) No Anaerobes Isolated 5 Days Normal [facility] Comment on above: Order Comment: 3. Ri ght Medial Lateral Synovium Performed By: #### 3 7102 #### [facility] [address] [place] [address], [facility] *ANAEROBIC CULTURE Clinical Report: (D) Specimen/Source: FLUID/INTRAOP SPEC Collected: 02/15/2022 10:06 Status: Final Last Updated: 02/20/2022 09:09 (1) 1. Right Knee Joint Fluid CULT RES (Final) No Anaerobes Isolated 5 Days Normal [facility] Comment on above: Order Comment: 1. Ri ght Knee Joint Fluid Performed By: #### 3 0312 #### [facility] [address] [place] [address], [facility] *ANAEROBIC CULTURE Clinical Report: (D) Specimen/Source: TISSUE/INTRAOP SPEC Collected: 02/15/2022 10:06 Status: Final Last Updated: 02/20/2022 09:09 (1) 2. Right Knee Medial Synovium CULT RES (Final) No Anaerobes Isolated 5 Days Normal [facility] Comment on above: Order Comment: 2. Ri ght Knee Medial Synovium Performed By: #### 3 1595 #### [facility] [address] [facility] [place] [address], [facility] *BODY FLUID CULTUREon 2021 *BODY FLUID CULTURE Clinical Report: (D) Specimen/Source: FLUID/INTRAOP SPEC Collected: 02/15/2022 10:06 Status: Final Last Updated: 02/20/2022 07:33 (1) 1. Right Knee Joint Fluid GRAM (Final) Moderate Polys No Bacteria Seen CULT RES (Final) No Growth Day 5 Normal [facility] Comment on above: Order Comment: 1. Ri ght Knee Joint Fluid Performed By: #### 3 1595 #### [facility] [address] [place] [address], [facility] *TISSUE CULTUREon 02-15-2022 *TISSUE CULTURE Clinical Report: (D) Specimen/Source: TISSUE/INTRAOP SPEC Collected: 02/15/2022 10:06 Status: Final Last Updated: 02/20/2022 07:33 (1) 3. Right Medial Lateral Synovium GRAM (Final) Rare Polys No Bacteria Seen CULT RES (Final) No Growth Day 5 Normal [facility] Comment on above: Order Comment: 3. Ri ght Medial Lateral Synovium Performed By: #### 3 0338 #### [facility] [address] [facility]. [address] *TISSUE CULTURE Clinical Report: (D) Specimen/Source: TISSUE/INTRAOP SPEC Collected: 02/15/2022 10:06 Status: Final Last Updated: 02/20/2022 07:34 (1) 2. Right Knee Medial Synovium GRAM (Final) Moderate Polys No Bacteria Seen CULT RES (Final) No Growth Day 5 Normal [facility] Comment on above: Order Comment: 2. Ri ght Knee Medial Synovium Performed By: #### 3 0338 #### [facility] [address] APTTon 02-15-2022 aPTT Coag (Bld) [Time] 29.7 s Normal 25.0-35.0 Th e [facility] Comment on above: Order Comment: No: [...] THIS PURPOSE. Performed By: #### 5 7307, [id number] #### [facility] [address] [facility]. [address] POC GLUCOSE LABon 02-15-2022 Glucose [Mass/Vol] 124 mg/dL High 70-100 [facility] Comment on above: Performed By: #### 8 5499 #### [facility] [address] [facility]. [address] Glucose [Mass/Vol] 97 mg/dL Normal 70-100 [facility] Comment on above: Performed By: #### 3 1595 #### [facility] [address] [address], [facility] PORTABLE KNEE RIGHT 2 [facility] 02-15-2022 PORTABLE KNEE RIGHT 2 S [facility] Department of Radiology [address] [place] [id number] Patient Name: INDIO COLLADO : 1955 Sex: M Age: Race: White Pt. Location: OUTP Patient Status: I Ordered Date: 02/15/2022 11:10:00 AM Completed Date: 02/15/2022 12:47 PM Requesting Provider: LONNY CASTORENA Attending Provider: CHRISTOPHER YANG Report Copy To: Signs & Symptoms: Post OP History: Comments: Hardware Evaluation, in PACU Exam: PORTABLE KNEE RIGHT 2 S PORTABLE KNEE RIGHT 2 S 02/15/2022 12:47 [...] 12/08/2021 Electronically signed: Indio Presley. Transcribed by: [email or web address], User Resident: Electronically Signed by: INDIO PRESLEY @ 02/15/2022 12:57 PM Normal [facility] Comment on above: Order Comment: Hardw are Evaluation, in PACU PROTHROMBIN TIMEon INR Coag (PPP) [Relative time] 1.14 {INR} Normal 0.91-1.16 [facility] Comment on above: Order Comment: No: [...] CHEST 1995;108:231S-246S. Performed By: #### 5 7307, [id number] #### [facility] [address] [place] [address], [facility] PT Coag (PPP) [Time] 14.6 s Normal 12.3-14.8 [facility] Comment on above: Order Comment: No: D o not add to previous draw Result Comment: ALL RESULTS MUST BE INTERPRETED WITH RESPECT TO BLOOD DRAWING ARTIFACT OR DILUTION ERROR OF ANTICOAGULANT AT THE TIME OF SAMPLING. Performed By: #### 5 7307, [id number] #### [facility] [address] [place] [address], [facility] Complete Blood Count with Au to Diffon 02-05-2022 Basophils (Bld) [#/Vol] 0.06 10*3/uL Normal 0.00-0.20 [place] [employer] Comment on above: Performed By: #### T SH, CMP, LIPD #### [facility] [address] [place], [place] [id number] Basophils/100 WBC (Bld) 0.9 % Normal [facility] Comment on above: Performed By: #### T SH, CMP, LIPD #### [facility] [address] [facility] [place] [id number] Eosinophils (Bld) [#/Vol] 0.10 10*3/uL Normal 0.02-0.50 [facility] Comment on above: Performed By: #### T SH, CMP, LIPD #### [facility] [address] [facility] [id number] Eosinophils/100 WBC (Bld) 1.5 % Normal [facility] Comment on above: Performed By: #### T SH, CMP, LIPD #### [facility] [address] [place], [place] [id number] Erythrocyte distribution width (RBC) [Ratio] 17.3 % High 11.0-15.0 [facility] Comment on above: Performed By: #### T SH, CMP, LIPD #### [facility] [address] [place], [place] [id number] Hematocrit (Bld) [Volume fraction] 40.5 % Normal 38.5-50.0 [facility] Comment on above: Performed By: #### T SH, CMP, LIPD #### [facility] [address] [place], [place] [id number] Hemoglobin (Bld) [Mass/Vol] 13.5 g/dL Normal 13.0-17.1 [facility] [employer] Member Comment on above: Performed By: #### T SH, CMP, LIPD #### [facility] [address] [facility] [id number] Lymphocytes (Bld) [#/Vol] 1.4 10*3/uL Normal 0.9-3.9 [facility] Comment on above: Performed By: #### T SH, CMP, LIPD #### [facility] [address] [facility] [id number] Lymphocytes/100 WBC (Bld) 21.1 % Normal [place] [employer] Member Comment on above: Performed By: #### T SH, CMP, LIPD #### [facility] [address] [place], [place] [id number] MCH (RBC) [Entitic mass] 31.3 pg Normal 27.0-33.0 [facility] Comment on above: Performed By: #### T SH, CMP, LIPD #### [facility] [address] [place], [place] [id number] MCHC (RBC) [Mass/Vol] 33.3 g/dL Normal 32.0-36.0 [facility] Comment on above: Performed By: #### T SH, CMP, LIPD #### [facility] [address] [place], [place] [id number] MCV (RBC) [Entitic vol] 94 fL Normal 80-100 [facility] Comment on above: Performed By: #### T SH, CMP, LIPD #### [facility] [address] [place], [place] [id number] Monocytes (Bld) [#/Vol] 0.4 10*3/uL Normal 0.2-0.9 [facility] Comment on above: Performed By: #### T SH, CMP, LIPD #### [facility] [address] [place], [place] [id number] Monocytes/100 WBC (Bld) 6.3 % Normal [facility] Comment on above: Performed By: #### T SH, CMP, LIPD #### [facility] [address] [place], [place] [id number] Neutrophils (Bld) [#/Vol] 4.6 10*3/uL Normal 1.5-7.8 [facility] Comment on above: Performed By: #### T SH, CMP, LIPD #### [facility] [address] [place], [place] [id number] Neutrophils/100 WBC (Bld) 70.0 % Normal [facility] Comment on above: Performed By: #### T SH, CMP, LIPD #### [facility] [address] [place], [place] [id number] Platelet mean volume (Bld) [Entitic vol] 10.10 fL Normal 7.50-12.50 [facility] [employer] Member Comment on above: Performed By: #### T SH, CMP, LIPD #### [facility] [address] [place], [place] [id number] Platelets (Bld) [#/Vol] 280 10*3/uL Normal 140-400 [facility] [employer] Member Comment on above: Performed By: #### T SH, CMP, LIPD #### [facility] [address] [place], [place] [id number] RBC (Bld) [#/Vol] 4.32 10*6/uL Normal 4.20-5.80 [facility] [employer] Member Comment on above: Performed By: #### T SH, CMP, LIPD #### [facility] [address] [place], [place] [id number] RDW-SD 60.6 fL High 37.0-50.0 [facility] [employer] Member Comment on above: Performed By: #### T SH, CMP, LIPD #### [facility] [address] [place], [place] [id number] WBC (Bld) [#/Vol] 6.6 10*3/uL Normal 3.8-11.0 [facility] [employer] Member Comment on above: Performed By: #### T SH, CMP, LIPD #### [facility] [address] [place], [place] [id number] Comprehensive Metabolic Pane carl 02-05-2022 Albumin [Mass/Vol] 3.3 g/dL Low 3.6-5.1 [facility] [employer] Member Comment on above: Performed By: #### T SH, CMP, LIPD #### [facility] [address] [place], [place] [id number] Albumin/Globulin [Mass ratio] 1.4 {ratio} Normal 1.0-2.5 [facility] [employer] Member Comment on above: Performed By: #### T SH, CMP, LIPD #### [facility] [address] [place], [place] [id number] ALP [Catalytic activity/Vol] 102 U/L Normal 40-129 [facility] [employer] Member Comment on above: Performed By: #### T SH, CMP, LIPD #### [facility] [address] [place], [place] [id number] ALT [Catalytic activity/Vol] 11 U/L Normal 9-46 [facility] Comment on above: Result Comment: 09/23 Female reference range changed. Performed By: #### T SH, CMP, LIPD #### [facility] [address] [place], [place] [id number] Anion gap [Moles/Vol] 16 mmol/L Normal 12-20 [facility] Comment on above: Result Comment: Effe ctive 10/29/2019 reference range changed. Performed By: #### T SH, CMP, LIPD #### [facility] [address] [place], [place] [id number] AST [Catalytic activity/Vol] 18 U/L Normal 10-40 [facility] Comment on above: Performed By: #### T SH, CMP, LIPD #### [facility] [address] [place] [id number] Bilirubin [Mass/Vol] 1.96 mg/dL High 0.30-1.20 [facility] Comment on above: Performed By: #### T SH, CMP, LIPD #### [facility] [address] [place], [place] [id number] BUN/CREA 11 Ratio Normal 6-22 [facility] Comment on above: Performed By: #### T SH, CMP, LIPD #### [facility] [address] [place], [place] [id number] Calcium [Mass/Vol] 8.7 mg/dL Normal 8.6-10.2 [facility] Comment on above: Performed By: #### T SH, CMP, LIPD #### [facility] [address] [place], [place] [id number] Chloride [Moles/Vol] 105 mmol/L Normal 98-107 [facility] Comment on above: Performed By: #### T SH, CMP, LIPD #### [facility] [address] [place], [place] [id number] CO2 [Moles/Vol] 23 mmol/L Normal 20-31 [facility] Comment on above: Performed By: #### T SH, CMP, LIPD #### [facility] [address] [place], [place] [id number] Creatinine [Mass/Vol] 0.7 mg/dL Normal 0.7-1.4 [facility] Comment on above: Performed By: #### T SH, CMP, LIPD #### [facility] [address] [place], [place] [id number] eGFRAA 139 mL/min/1.73m2 Normal >60 [facility]ist Comment on above: Performed By: #### T SH, CMP, LIPD #### [facility] [address] [place], [place] [id number] eGFRNAA 115 mL/min/1.73m2 Normal >60 [facility] Specialist Comment on above: Performed By: #### T SH, CMP, LIPD #### [facility] [address] [place], [place] [id number] Globulin (S) [Mass/Vol] 2.3 g/dL Normal 1.9-3.7 [facility] Comment on above: Performed By: #### T SH, CMP, LIPD #### [facility] [address] [place], [place] [id number] Glucose [Mass/Vol] 94 mg/dL Normal 65-99 Ralph sterling [place] [employer] Member Comment on above: Result Comment: For FASTING Glucose --- ADA reference ranges: Normal 65-99 mg/dl Prediabetes 100-125 Diabetes >/= 126 Performed By: #### T SH, CMP, LIPD #### [facility] [address] [place], [place] [id number] Potassium [Moles/Vol] 3.7 mmol/L Normal 3.5-5.5 [facility] [employer] Member Comment on above: Performed By: #### T SH, CMP, LIPD #### [facility] [address] [place], [place] [id number] Protein [Mass/Vol] 5.6 g/dL Low 6.1-8.1 Brigitte mcarthur [place] [employer] Member Comment on above: Performed By: #### T SH, CMP, LIPD #### [facility] [address] [place], [place] [id number] Sodium [Moles/Vol] 140 mmol/L Normal 135-146 [facility] Comment on above: Performed By: #### T NELY CMP, LIPD #### [facility] [address] [place], [place] [id number] Urea nitrogen [Mass/Vol] 7 mg/dL Normal 7-25 [facility] Comment on above: Performed By: #### T NELY CMP, LIPD #### [facility] [address] [place], [place] [id number] Ferritinon 02-05-2022 FERR 128.6 ng/mL Normal 30.0-400.0 [facility] Comment on above: Performed By: #### T NELY CMP, LIPD #### [facility] [address] [place], [place] [id number] Iron Profileon 02-05-2022 %FESAT 18 % Normal 15-60 [facility] Comment on above: Performed By: #### T NELY CMP, LIPD #### [facility] [address] [place], [place] [id number] FE 45 ug/dL Low 50-180 [facility] Comment on above: Result Comment: Refe rence range change 09/09/2017. Prior reference range F 37-145 ug/dL, M 59-158 ug/dL. Performed By: #### T NELY CMP, LIPD #### [facility] [address] [place], [place] [id number] TIBC 247 ug/dL Low 250-425 [facility] Comment on above: Performed By: #### T NELY, CMP, LIPD #### [facility] [address] [place], [place] [id number] UIBC 202 ug/dL Normal 112-347 [facility] Comment on above: Performed By: #### T NELY CMP, LIPD #### [facility] [address] [place], [place] [id number] Magnesiumon 02-05-2022 Magnesium [Mass/Vol] 1.8 mg/dL Normal 1.5-2.3 [facility] Comment on above: Performed By: #### T NELY, CMP, LIPD #### [facility] [address] [place], [place] [id number] Phosphoruson 02-05-2022 Phosphate [Mass/Vol] 3.2 mg/dL Normal 2.2-4.4 [facility] Comment on above: Performed By: #### T NELY, CMP, LIPD #### [facility] [address] [place], [place] [id number] Q - VITAMIN B1 (THIAMINE),BL OODon 02-05-2022 VITAMIN B1 (THIAMINE), BLOOD, LC/MS/MS 74 nmol/L Low 78-185 [facility] [employer] Member Comment on above: Order Comment: Quest performed at: [facility], [facility], [id number], [place], [place], , [employer]: Alexis Abbott M.D.,PhDQuest Collection Date/Time: Results Received Date/Time: Reported Date/Time: Result Comment: Yolande min supplementation within 24 hours prior to blood draw may affect the accuracy of the results. This test was developed and its analytical performance characteristics have been determined by [facility] [place] [place]. It has not been cleared or approved by the U.S. Food and Drug Administration. This assay has been validated pursuant to the CLIA regulations and is used for clinical purposes. Performed By: #### T NELY, RAOMNA, LIPD #### [facility] [address] [place], [place] [id number] Q - VITAMIN D 25-OH Total IA on 02-05-2022 VIT D 25 OH 18 ng/mL Low 30-100 [facility] Specialist Comment on above: Order Comment: [facility] performed at: [facility], [facility], [address] , [address] [place] [address], [address], Drum Loader And Unloader: Juan Daniel Cool MDQuest Collection Date/Time: [id number] Results Received Date/Time: [id number] Reported Date/Time: Result Comment: Yolande min D Status 25-OH Vitamin D: Deficiency: <20 ng/mL Insufficiency: 20 - 29 ng/mL Optimal: > or = 30 ng/mL For 25-OH Vitamin D testing on patients on D2-supplementation and patients for whom quantitation of D2 and D3 fractions is required, the QuestAssureD(TM) 25-OH VIT D, (D2,D3), LC/MS/MS is recommended: order code 20645 (patients >2yrs). See Note 1 Note 1 For additional information, please refer to http://education.GoodClic/faq/GDZ485 (This link is being provided for informational/ educational purposes only.) Performed By: #### T NELY, RAMONA, LIPD #### [facility] [address] [place], [place] [id number] Vitamin B12/Folateon 022 Cobalamin (Vitamin B12) [Mass/Vol] 344 pg/mL Normal 211-946 [facility] [employer] Member Comment on above: Result Comment: Spec imen is hemolyzed. Results may be affected. Performed By: #### T NELY, RAMONA, LIPD #### [facility] [address] [place], [place] [id number] FOL 12.7 ng/mL Normal >4.7 [facility] [employer] Member Comment on above: Result Comment: Refe rence range change 09/09/2017. Prior reference range F 4.8-37.3 ng/mL, M 4.5-32.2 ng/mL. Performed By: #### T NELY, RAMONA, LIPD #### [facility] [address] [place], [place] [id number] CT LOWER EXTREMITY WO CONTRA ST RIGHTon 01-02-2022 CT LOWER EXTREMITY WO CONTRAST RIGHT [facility] Department of Radiology [address] [place] [address] Patient Name: INDIO COLLADO : [...] report. Electronically signed: Michael Grant. Transcribed by: [email or web address], User Resident: EVA RAMIREZ Electronically Signed by: MICHAEL GRANT @ 01/04/2022 09:38 AM I personally read this/these film(s) with this resident Normal [facility] Comment on above: Order Comment: right knee *MRSA/MSSA DNA NASALon 12-08 *MRSA/MSSA DNA NASAL Clinical Report: (D ) Specimen: NASAL SWAB Collected: 12/08/2021 14:59 Status: Final Last Updated: 12/08/2021 21:27 MSSA DNA (Final) Negative MRSA DNA (Final) Methicillin Resistant Staphylococcus aureus DNA Detected Normal [facility] Comment on above: Performed By: #### 3 1595 #### [address] C REACTIVE PROTEINon 022 CRP [Mass/Vol] 7.2 mg/L High 0.0-7.0 [facility] Comment on above: Performed By: #### 3 1595 #### [facility] [address] KNEE RIGHT 3 VWSon 2 KNEE RIGHT 3 S [facility] Department of Radiology [address] [place] [address] Patient Name: INDIO COLLADO : [...] calcifications. Electronically signed: Kehinde Hahn. Transcribed by: [email or web address], User Resident: Electronically Signed by: KEHINDE HAHN @ 12/09/2021 02:13 PM Normal [facility] Comment on above: Order Comment: Evalu ate Q - MICROALBUMIN,RANDOM URIN E (W/CREAT)on 11-17-2021 Albumin DL <= 20 mg/L (U) [Mass/Vol] 5.3 mg/dL Normal See Note: [facility] [employer] Member Comment on above: Order Comment: Quest Testing performed at: [facility], [facility], [address], [address] [facility], [place], [address], Drum Loader And Unloader: Juan Daniel Cool MD [facility] Collection Date/Time: [id number] [facility] Results Received Date/Time: [facility] Reported Date/Time: Result Comment: Refe rence Range: Reference Range Not established Performed By: #### 6 517X #### [facility] [address] [place] [address] Creatinine (U) [Mass/Vol] 173 mg/dL Normal 20-320 [facility] [employer] Member Comment on above: Order Comment: Quest Testing performed at: [employer], [facility], [address] [place] [address], [address] [place] [address], [address] [place] [address], Drum Loader And Unloader: Juan Daniel Cool MD [facility] Collection Date/Time: [facility] Results Received Date/Time: [facility] Reported Date/Time: Performed By: #### 6 517X #### [facility] [address] [place] [address] MICROALBUMIN/CREATININE RATIO, RANDOM URINE 31 mcg/mg creat High <30 [facility] [employer] Member Comment on above: Order Comment: [facility] Testing performed at: [employer], [facility], [address] [facility], [address] [place] [address], [address] [place] [address], [employer] Loader And Unloader: Juan Daniel Cool MD [facility] Collection Date/Time: [...] 6 517X #### [facility] [address] [place] [address] RESPIRATORY PANEL PLUSon Adenovirus Not detected Normal NOT DETECTED [facility] Comment on above: Performed By: #### R SPLUS ####[facility] [address] [place], [place] [address]VlDeandre Chris Farhan Castellanos. Parapertusis Not detected Normal NOT DETECTED [facility] Comment on above: Performed By: #### R SPLUS ####[facility] [address] [place], [place] [address]Dr. Chris Real B. Pertussis Not detected Normal NOT DETECTED [facility] Comment on above: Performed By: #### R SPLUS ####[facility] [address] [place], [place] [address]Dr. Chris Real Chlamydia Pneumoniae Not detected Normal NOT DETECTED [facility] Comment on above: Performed By: #### R SPLUS ####[facility] Edfc[address] [place], [place] [address]Dr. Chris Real Coronavirus 229E Not detected Normal NOT DETECTED [facility] Comment on above: Performed By: #### R SPLUS ####[facility] [address] [place], [place] [address]Dr. Chris Real Coronavirus HKU1 Not detected Normal NOT DETECTED [facility] Comment on above: Performed By: #### R SPLUS ####[facility] Brxyt[address] [place], [place] [address]Dr. Chris Real Coronavirus NL63 Not detected Normal NOT DETECTED [facility] Comment on above: Performed By: #### R SPLUS ####[facility] [address] [place], [place] [address]Dr. Chris Real Coronavirus OC43 Not detected Normal NOT DETECTED [facility] Comment on above: Performed By: #### R SPLUS ####[facility] [address] [place], [place] [address]Dr. Chris Real Influenza A H1 2009 Not detected Normal NOT DETECTED [facility] Comment on above: Performed By: #### R SPLUS ####[facility] Owndizq[address] [place], [place] [address]Dr. Chris Real Influenza A H3 Not detected Normal NOT DETECTED [facility] Comment on above: Performed By: #### R SPLUS ####[facility] Rnavtgzx[address] [place], [place] [address]Dr. Chris Real Influenza B Not detected Normal NOT DETECTED [facility] Comment on above: Performed By: #### R SPLUS ####[facility] Nvldqc[address] [place], [place] [address]Dr. Yilan Real Metapneumovirus Not detected Normal NOT DETECTED [facility] Comment on above: Performed By: #### R SPLUS ####[facility] [address] [place] [address]Dr. Chris Real Mycoplas. Pneumoniae Not detected Normal NOT DETECTED [facility] Comment on above: Performed By: #### R SPLUS ####[facility] Zpxf[address] [place], [place] [address]Dr. Fatoumatakinjal Real Parainfluenza 1 Not detected Normal NOT DETECTED [facility] Comment on above: Performed By: #### R SPLUS ####[facility] [address] [place], [place] [address]Dr. Fatoumatakinjal Real Parainfluenza 2 Not detected Normal NOT DETECTED [facility] Comment on above: Performed By: #### R SPLUS ####[facility] N[address] [place], [place] [address]Dr. Chris Real Parainfluenza 3 Not detected Normal NOT DETECTED [facility] Comment on above: Performed By: #### R SPLUS ####[facility] Baw[address] [place], [place] [address]Dr. Fatoumatakinjal Real Parainfluenza 4 Not detected Normal NOT DETECTED [facility] Comment on above: Performed By: #### R SPLUS ####[facility] I[address] [place], [place] [address]Dr. Chris Real Rhino/Enterovirus Not detected Normal NOT DETECTED [facility] Comment on above: Performed By: #### R SPLUS ####[facility] [address] [place], [place] [address]Dr. Chris Real RP2 Header 1 RESPIRATORY PANEL: VIRUSES Normal [facility] Comment on above: Performed By: #### R SPLUS ####[facility] O[address] [place], [place] [address]Dr. Fatoumatalan Real RP2 Header 2 RESPIRATORY PANEL: BACTERIA Normal [facility] Comment on above: Performed By: #### R SPLUS ####[facility] Fqk[address] [place], [place] [address]Dr. Chris Real RSV Not detected Normal NOT DETECTED [facility] Comment on above: Performed By: #### R SPLUS ####[facility] [address] [place], [place] [address]Uy. Chris Real SARS-CoV-2 (COVID-19) RNA GAIL+probe Ql (Unsp spec) Detected Critically abnormal NOT DETECTED [facility] Comment on above: Performed By: #### R SPLUS ####[facility] [address] [place], [place] [address]Hz. Chris Real Complete Blood Count with Au to Diffon 10-08-2021 Basophils (Bld) [#/Vol] 0.07 10*3/uL Normal 0.00-0.20 [facility] Comment on above: Performed By: #### V ITD, MG, PHOS, FERR, CBCAD, FE Prof, CMP #### [facility] [address] [place], [place] [id number] Basophils/100 WBC (Bld) 0.9 % Normal N [facility] Comment on above: Performed By: #### V ITD, MG, PHOS, FERR, CBCAD, FE Prof, CMP #### [facility] [address] [place], [place] [id number] Eosinophils (Bld) [#/Vol] 0.20 10*3/uL Normal 0.02-0.50 [facility] Comment on above: Performed By: #### V ITD, MG, PHOS, FERR, CBCAD, FE Prof, CMP #### [facility] [address] [place], [place] [id number] Eosinophils/100 WBC (Bld) 2.6 % Normal [facility] Comment on above: Performed By: #### V ITD, MG, PHOS, FERR, CBCAD, FE Prof, CMP #### [facility] [address] [facility] [place] [id number] Erythrocyte distribution width (RBC) [Ratio] 15.0 % Normal 11.0-15.0 [facility] Comment on above: Performed By: #### V ITD, MG, PHOS, FERR, CBCAD, FE Prof, CMP #### [facility] [address] [place], [place] [id number] Hematocrit (Bld) [Volume fraction] 45.1 % Normal 38.5-50.0 [facility] Specialist Comment on above: Performed By: #### V ITD, MG, PHOS, FERR, CBCAD, FE Prof, CMP #### [facility] [address] [place], [place] [id number] Hemoglobin (Bld) [Mass/Vol] 14.7 g/dL Normal 13.0-17.1 [facility] Specialist Comment on above: Performed By: #### V ITD, MG, PHOS, FERR, CBCAD, FE Prof, CMP #### [facility] [address] [place], [place] [id number] Lymphocytes (Bld) [#/Vol] 1.8 10*3/uL Normal 0.9-3.9 [facility] Specialist Comment on above: Performed By: #### V ITD, MG, PHOS, FERR, CBCAD, FE Prof, CMP #### [facility] [address] [place], [place] [id number] Lymphocytes/100 WBC (Bld) 23.4 % Normal [facility] Specialist Comment on above: Performed By: #### V ITD, MG, PHOS, FERR, CBCAD, FE Prof, CMP #### [facility] [address] [place], [place] [id number] MCH (RBC) [Entitic mass] 28.1 pg Normal 27.0-33.0 [facility] Specialist Comment on above: Performed By: #### V ITD, MG, PHOS, FERR, CBCAD, FE Prof, CMP #### [facility] [address], [place] [id number] MCHC (RBC) [Mass/Vol] 32.6 g/dL Normal 32.0-36.0 [facility] Comment on above: Performed By: #### V ITD, MG, PHOS, FERR, CBCAD, FE Prof, CMP #### [facility] [address] [place], [place] [id number] MCV (RBC) [Entitic vol] 86 fL Normal 80-100 [facility] Specialist Comment on above: Performed By: #### V ITD, MG, PHOS, FERR, CBCAD, FE Prof, CMP #### [facility] [address] [place], [place] [id number] Monocytes (Bld) [#/Vol] 0.5 10*3/uL Normal 0.2-0.9 [facility] Specialist Comment on above: Performed By: #### V ITD, MG, PHOS, FERR, CBCAD, FE Prof, CMP #### [facility] [address] [place], [place] [id number] Monocytes/100 WBC (Bld) 6.7 % Normal N [facility] Comment on above: Performed By: #### V ITD, MG, PHOS, FERR, CBCAD, FE Prof, CMP #### [facility] [address] [place], [place] [id number] Neutrophils (Bld) [#/Vol] 5.2 10*3/uL Normal 1.5-7.8 [facility] Specialist Comment on above: Performed By: #### V ITD, MG, PHOS, FERR, CBCAD, FE Prof, CMP #### [facility] [address] [place], [place] [id number] Neutrophils/100 WBC (Bld) 66.3 % Normal [facility] Specialist Comment on above: Performed By: #### V ITD, MG, PHOS, FERR, CBCAD, FE Prof, CMP #### [facility] [address] [facility] [place] [id number] Platelet mean volume (Bld) [Entitic vol] 10.40 fL Normal 7.50-12.50 [facility] Specialist Comment on above: Performed By: #### V ITD, MG, PHOS, FERR, CBCAD, FE Prof, CMP #### [facility] [address] [facility] [place] [id number] Platelets (Bld) [#/Vol] 302 10*3/uL Normal 140-400 [facility] [employer] Member Comment on above: Performed By: #### V ITD, MG, PHOS, FERR, CBCAD, FE Prof, CMP #### [facility] [address] [facility] [place], [place] [id number] RBC (Bld) [#/Vol] 5.23 10*6/uL Normal 4.20-5.80 [facility] Specialist Comment on above: Performed By: #### V ITD, MG, PHOS, FERR, CBCAD, FE Prof, CMP #### [facility] [address] [place], [place] [id number] RDW-SD 46.8 fL Normal 37.0-50.0 [facility] [employer] Member Comment on above: Performed By: #### V ITD, MG, PHOS, FERR, CBCAD, FE Prof, CMP #### [facility] [address] [place], [place] [id number] WBC (Bld) [#/Vol] 7.8 10*3/uL Normal 3.8-11.0 [facility] [employer] Member Comment on above: Performed By: #### V ITD, MG, PHOS, FERR, CBCAD, FE Prof, CMP #### [facility] [address] [place], [place] [id number] Comprehensive Metabolic Pane [facility] 10-08-2021 Albumin [Mass/Vol] 3.7 g/dL Normal 3.6-5.1 [facility] [employer] Member Comment on above: Performed By: #### V ITD, MG, PHOS, FERR, CBCAD, FE Prof, CMP #### [facility] [address] [place], [place] [id number] Albumin/Globulin [Mass ratio] 1.2 {ratio} Normal 1.0-2.5 [facility] [employer] Member Comment on above: Performed By: #### V ITD, MG, PHOS, FERR, CBCAD, FE Prof, CMP #### [facility] [address] [place], [place] [id number] ALP [Catalytic activity/Vol] 127 U/L Normal 40-129 [facility] [employer] Member Comment on above: Performed By: #### V ITD, MG, PHOS, FERR, CBCAD, FE Prof, CMP #### [facility] [address] [place], [place] [id number] ALT [Catalytic activity/Vol] 21 U/L Normal 9-46 [facility] [employer] Member Comment on above: Result Comment: 09/23 Female reference range changed. Performed By: #### V ITD, MG, PHOS, FERR, CBCAD, FE Prof, CMP #### [facility] [address] [place], [place] [id number] Anion gap [Moles/Vol] 20 mmol/L Normal 12-20 [facility] Comment on above: Result Comment: Effe ctive 10/29/2019 reference range changed. Performed By: #### V ITD, MG, PHOS, FERR, CBCAD, FE Prof, CMP #### [facility] [address] [place], [place] [id number] AST [Catalytic activity/Vol] 25 U/L Normal 10-40 [facility] Comment on above: Performed By: #### V ITD, MG, PHOS, FERR, CBCAD, FE Prof, CMP #### [facility] [address] [place], [place] [id number] Bilirubin [Mass/Vol] 1.05 mg/dL Normal 0.30-1.20 [facility] Comment on above: Performed By: #### V ITD, MG, PHOS, FERR, CBCAD, FE Prof, CMP #### [facility] [address] [place], [place] [id number] BUN/CREA 11 Ratio Normal 6-22 [facility] Comment on above: Performed By: #### V ITD, MG, PHOS, FERR, CBCAD, FE Prof, CMP #### [facility] [address] [place], [place] [id number] Calcium [Mass/Vol] 9.7 mg/dL Normal 8.6-10.2 [facility] Comment on above: Performed By: #### V ITD, MG, PHOS, FERR, CBCAD, FE Prof, CMP #### [facility] [address] [facility] [id number] Chloride [Moles/Vol] 99 mmol/L Normal 98-107 [facility] Comment on above: Performed By: #### V ITD, MG, PHOS, FERR, CBCAD, FE Prof, CMP #### [facility] [address] [facility], [place] [id number] CO2 [Moles/Vol] 24 mmol/L Normal 20-31 [facility] Comment on above: Performed By: #### V ITD, MG, PHOS, FERR, CBCAD, FE Prof, CMP #### [facility] [address] [place], [place] [id number] Creatinine [Mass/Vol] 0.9 mg/dL Normal 0.7-1.4 [facility] Specialist Comment on above: Performed By: #### V ITD, MG, PHOS, FERR, CBCAD, FE Prof, CMP #### [facility] [address] [place], [place] [id number] eGFRAA 107 mL/min/1.73m2 Normal >60 [facility] Comment on above: Performed By: #### V ITD, MG, PHOS, FERR, CBCAD, FE Prof, CMP #### [facility] [address] [place], [place] [id number] eGFRNAA 88 mL/min/1.73m2 Normal >60 [facility] Comment on above: Performed By: #### V ITD, MG, PHOS, FERR, CBCAD, FE Prof, CMP #### [facility] [address] [place], [place] [id number] Globulin (S) [Mass/Vol] 3.0 g/dL Normal 1.9-3.7 [facility] Comment on above: Performed By: #### V ITD, MG, PHOS, FERR, CBCAD, FE Prof, CMP #### [facility] [address] [place], [place] [id number] Glucose [Mass/Vol] 136 mg/dL High 65-99 Ralph sterling [place] [employer] Member Comment on above: Result Comment: For FASTING Glucose --- ADA reference ranges: Normal 65-99 mg/dl Prediabetes 100-125 Diabetes >/= 126 Performed By: #### V ITD, MG, PHOS, FERR, CBCAD, FE Prof, CMP #### [facility] [address] [place], [place] [id number] Potassium [Moles/Vol] 3.3 mmol/L Low 3.5-5.5 [facility] Specialist Comment on above: Performed By: #### V ITD, MG, PHOS, FERR, CBCAD, FE Prof, CMP #### [facility] [address] [place], [place] [id number] Protein [Mass/Vol] 6.7 g/dL Normal 6.1-8.1 Brigitte mcarthur [place] [employer] Member Comment on above: Performed By: #### V ITD, MG, PHOS, FERR, CBCAD, FE Prof, CMP #### [facility] [address] [place], [place] [id number] Sodium [Moles/Vol] 140 mmol/L Normal 135-146 Brigitte rn [place] [employer] Member Comment on above: Performed By: #### V ITD, MG, PHOS, FERR, CBCAD, FE Prof, CMP #### [facility] [address] [place], [place] [id number] Urea nitrogen [Mass/Vol] 10 mg/dL Normal 7-25 [facility] [employer] Member Comment on above: Performed By: #### V ITD, MG, PHOS, FERR, CBCAD, FE Prof, CMP #### [facility] [address] [place], [place] [id number] Ferritinon 10-08-2021 FERR 127.3 ng/mL Normal 30.0-400.0 [facility] [employer] Member Comment on above: Performed By: #### V ITD, MG, PHOS, FERR, CBCAD, FE Prof, CMP #### [facility] [address] [place], [place] [id number] Iron Profileon 10-08-2021 %FESAT 13 % Low 15-60 [facility] [employer] Member Comment on above: Performed By: #### V ITD, MG, PHOS, FERR, CBCAD, FE Prof, CMP #### [facility] [address] [place], [place] [id number] FE 41 ug/dL Low 50-180 [facility] [employer] Member Comment on above: Result Comment: Refe rence range change 09/09/2017. Prior reference range F 37-145 ug/dL, M 59-158 ug/dL. Performed By: #### V ITD, MG, PHOS, FERR, CBCAD, FE Prof, CMP #### [facility] [address] [place], [place] [id number] TIBC 318 ug/dL Normal 250-425 [facility] [employer] Member Comment on above: Performed By: #### V ITD, MG, PHOS, FERR, CBCAD, FE Prof, CMP #### [facility] [address] [place], [place] [id number] UIBC 277 ug/dL Normal 112-347 [facility] Comment on above: Performed By: #### V ITD, MG, PHOS, FERR, CBCAD, FE Prof, CMP #### [facility] [address] [place], [place] [id number] Magnesiumon 10-08-2021 Magnesium [Mass/Vol] 1.9 mg/dL Normal 1.5-2.3 [facility] Comment on above: Performed By: #### V ITD, MG, PHOS, FERR, CBCAD, FE Prof, CMP #### [facility] [address] [place], [place] [id number] Phosphoruson 10-08-2021 Phosphate [Mass/Vol] 2.4 mg/dL Normal 2.2-4.4 [facility] Comment on above: Performed By: #### V ITD, MG, PHOS, FERR, CBCAD, FE Prof, CMP #### [facility] [address] [place], [place] [id number] Q - VITAMIN B1 PLASMAon 09-23 VITAMIN B1 (THIAMINE), SERUM/PLASMA, LC/MS/MS <6 Low 8-30 [facility] Comment on above: Order Comment: [facility] performed at: [facility], [facility], [address], [place], [place], , [employer] Unloader: Alexis Abbott M.D.,PhDQuest Collection Date/Time: [id number] Results Received Date/Time: [id number] Reported Date/Time: Result Comment: Yolande min supplementation within 24 hours prior to blood draw may affect the accuracy of the results. This test was developed and its analytical performance characteristics have been determined by [facility] [place] [place]. It has not been cleared or approved by the U.S. Food and Drug Administration. This assay has been validated pursuant to the CLIA regulations and is used for clinical purposes. Performed By: #### T SH, CMP, LIPD #### [facility] [address] [place], [place] [id number] Vitamin B12/Folateon 12-16-2 021 Cobalamin (Vitamin B12) [Mass/Vol] 523 pg/mL Normal 211-946 [facility] [employer] Member Comment on above: Performed By: #### T NELY, RAMONA, LIPD #### [facility] [address] [place], [place] [id number] FOL 8.2 ng/mL Normal >4.7 [facility] [employer] Member Comment on above: Result Comment: Refe rence range change 09/09/2017. Prior reference range F 4.8-37.3 ng/mL, M 4.5-32.2 ng/mL. Performed By: #### T NELY, CMP, LIPD #### [facility] [address] [place], [place] [id number] Vitamin D 25-OHon 10-08-2021 VIT D 25 OH 25 ng/ml Low >29 [facility] [employer] Member Comment on above: Result Comment: Yolande min D Status Deficiency <20 ng/mL Insufficiency 20-29 ng/mL Optimal 30-100 ng/mL Possible Toxicity >=150 ng/mL Performed By: #### T NELY, RAMONA, LIPD #### [facility] [address] [place], [place] [id number] CT ABD/PELVIS WO CONon 09-01 CT ABD/PELVIS [...] Ema WALSH Date: 2021-08-31 23:19 Normal [facility] AMYLASEon 08-31-2021 Amylase [Catalytic activity/Vol] 34 U/L Normal 31-110 [facility] Comment on above: Performed By: #### L IPA, MIHAELA, CMP #### [facility] [address] [place], [place] [address] Dr. Chris Real CBC AUTO DIFFon 08-31-2021 BASO # 0.1 103/ul Normal 0.0-0.1 [facility] Comment on above: Performed By: #### C BC #### [facility] [address] [place], [place] [address] Dr. Chris eRal Basophils/100 WBC (Bld) 0.6 % Normal 0.2-2.0 T [facility] Comment on above: Performed By: #### C BC #### [facility] [address] [place] [address] Dr. hCris Real EO # 0.2 103/ul Normal 0.0-0.7 [facility] [facility] Comment on above: Performed By: #### C BC #### [facility] [address] [place] [address] Dr. Chris Real Eosinophils/100 WBC (Bld) 2.3 % Normal 0.9-7.0 [facility] Comment on above: Performed By: #### C BC #### [facility] [address] [place] [address] Dr. Chris Real Erythrocyte distribution width (RBC) [Ratio] 14.6 % Normal 11.0-15.0 [facility] Comment on above: Performed By: #### C BC #### [facility] [address] [place] [address] Dr. Chris Real Hematocrit (Bld) [Volume fraction] 38.6 % Critically low 42.0-54.0 [facility] Comment on above: Performed By: #### C BC #### [facility] [address] [place] [address] Dr. Chris Real Hemoglobin (Bld) [Mass/Vol] 12.6 g/dL Critically low 14.0-18.0 [facility] Comment on above: Performed By: #### C BC #### [facility] [address] [place] [address] Dr. Chris Real IG # 0.02 10e3/ul Normal 0.00-0.03 [facility] Comment on above: Performed By: #### C BC #### [facility] [address] [place] [address] Dr. Chris Real IG % 0.2 % Normal 0.0-0.5 [facility] Comment on above: Performed By: #### C BC #### [facility] [address] [place] [address] Dr. Chris Real LYMPH # 1.9 103/ul Normal 1.2-3.8 [facility] Comment on above: Performed By: #### C BC #### [facility] [address] [place] [address] Dr. Chris Real Lymphocytes/100 WBC (Bld) 23.8 % Normal 20.5-60.0 [facility] Comment on above: Performed By: #### C BC #### [facility] [address] [place] [address] Dr. Chris Real MANUAL DIFF REQ NO Normal [facility] Comment on above: Performed By: #### C BC #### [facility] [address] [place] [address] Dr. Chris Real MCH (RBC) [Entitic mass] 29.1 pg Normal 25.9-34.0 [facility] Comment on above: Performed By: #### C BC #### [facility] [address] [place] [address] Dr. Chris Real MCHC (RBC) [Mass/Vol] 32.6 g/dL Normal 29.9-35.2 [facility] Comment on above: Performed By: #### C BC #### [facility] [address] [place] [address] Dr. Chris Real MCV (RBC) [Entitic vol] 89.1 fL Normal 80.0-94.0 [facility] Comment on above: Performed By: #### C BC #### [facility] [address] [place] [address] Dr. Chris Real MONO # 0.8 103/ul Normal 0.3-0.8 [facility] Comment on above: Performed By: #### C BC #### [facility] [address] [place] [address] Dr. Chris Real Monocytes/100 WBC (Bld) 10.3 % Normal 1.7-12.0 [facility] Comment on above: Performed By: #### C BC #### [facility] [address] [place] [address] Dr. Chris Real NEUT # 5.1 103/ul Normal 1.4-6.5 [facility] Comment on above: Performed By: #### C BC #### [facility] [address] [place] [address] Dr. Chris Real Neutrophils/100 WBC (Bld) 62.8 % Normal 43.0-75.0 [facility] Comment on above: Performed By: #### C BC #### [facility] [address] [place] [address] Dr. Chris Real Platelet mean volume (Bld) [Entitic vol] 10.4 fL Normal 9.5-13.5 [facility] Comment on above: Performed By: #### C BC #### [facility] [address] [place] [address] Dr. Chris Real PLT 325 103/ul Normal 150-450 [facility] Comment on above: Performed By: #### C BC #### [facility] [address] [place] [address] Dr. Chris Real RBC 4.33 106/ul Critically low 4.70-6.10 [facility] Comment on above: Performed By: #### C BC #### [facility] [address] [place] [address] Dr. Chris Real WBC 8.1 103/ul Normal 4.0-11.0 [facility] Comment on above: Performed By: #### C BC #### [facility] [address] [place] [address] Dr. Chris Real Covid-19 PCR (CVDTB)on SARS-CoV-2 (COVID-19) RNA GAIL+probe Ql (Unsp spec) Not detected Normal NOT DETECTED [facility] Comment on above: Result Comment: When diagnostic testing is negative, the possibility of a false negative should be considered in the context of a patient's recent exposures and the presence of clinical signs and symptoms consistent with SARS-CoV-2. This test is not yet approved or cleared by the [place] Food and Drug Administration (FDA). This test was developed by [employer], [place], [place]. The performance characteristics of this test were validated by [facility]. The results are not intended to be used as the sole means for clinical diagnosis or patient management decisions. [facility] is authorized under Clinical Laboratory Improvement Amendments (CLIA) to perform high- complexity testing. Performed By: #### C VDTBH #### [facility] [address] [place] [address] Dr. Chris Real LIPASEon 08-31-2021 Lipase [Catalytic activity/Vol] 109.0 U/L Normal 23.0-300.0 [facility] Comment on above: Performed By: #### L MIHAELA SO, CMP #### [facility] [address] [place] [address] Dr. Chris Real PROF 14(COMP METB)on 021 Albumin [Mass/Vol] 2.7 g/dL Critically low 3.5-5.0 [facility] Comment on above: Performed By: #### L ASRAY MIHAELA, CMP #### [facility] [address] [place] [address] Dr. Chris Real Albumin/Globulin [Mass ratio] 0.6 {ratio} Normal [facility] Comment on above: Performed By: #### L IPA MIHAELA, CMP #### [facility] [address] [place] [address] Dr. Chris Real ALP [Catalytic activity/Vol] 110 U/L Normal 38-126 [facility] Comment on above: Performed By: #### L IPA MIHAELA, CMP #### [facility] [address] [place] [address] Dr. Chris Real ALT [Catalytic activity/Vol] 19 U/L Critically low 21-72 [facility] Comment on above: Performed By: #### L IPA MIHAELA, CMP #### [facility] [address] [place] [address] Dr. Chris Real Anion gap [Moles/Vol] 12.8 mmol/L Normal [facility] Comment on above: Performed By: #### L IPA, MIHAELA, CMP #### [facility] [address] [place] [address] Dr. Chris Real AST [Catalytic activity/Vol] 23 U/L Normal 17-59 [facility] Comment on above: Performed By: #### L IPA MIHAELA, CMP #### [facility] [address] [place] [address] Dr. Chris Real Bilirubin [Mass/Vol] 1.0 mg/dL Normal 0.2-1.3 [facility] Comment on above: Performed By: #### L IPA, MIHAELA, CMP #### [facility] [address] [place] [address] Dr. Chris Real Calcium [Mass/Vol] 8.6 mg/dL Normal 8.4-10.2 [facility] Comment on above: Performed By: #### L IPA MIHAELA, CMP #### [facility] [address] [place] [address] Dr. Chris Real Chloride [Moles/Vol] 98 mmol/L Normal 98-107 [facility] Comment on above: Performed By: #### L IPA MIHAELA, CMP #### [facility] [address] [place] [address] Dr. Chris Real CO2 [Moles/Vol] 29.1 mmol/L Normal 22.0-30.0 [facility] Comment on above: Performed By: #### L IPA MIHAELA, CMP #### [facility] [address] [place] [address] Dr. Chris Real Creatinine [Mass/Vol] 1.16 mg/dL Normal 0.66-1.25 [facility] Comment on above: Performed By: #### L IPA MIHAELA, CMP #### [facility] [address] [place] [address] Dr. Chris Real EGFR-AF ICELANDIC >60 Normal >=60 [facility] Comment on above: Performed By: #### L IPA MIHAELA, CMP #### [facility] [address] [place] [address] Dr. Chris Real EGFR-NON AF ICELANDIC >60 Normal >=60 [facility] Comment on above: Performed By: #### L IPA, MIHAELA, CMP #### [facility] [address] [place] [address] Dr. Chris Real Globulin (S) [Mass/Vol] 4.4 g/dL Normal T [facility] Comment on above: Performed By: #### L MIHAELA SO, CMP #### [facility] [address] [address] [address] Chris Real Glucose [Mass/Vol] 106 mg/dL Normal 74-106 [facility] Comment on above: Performed By: #### L MIHAELA SO, CMP #### [facility] [address] [address] [address] Chris Real Potassium [Moles/Vol] 2.9 mmol/L Critically low 3.4-5.0 [facility] Comment on above: Result Comment: TEST REPEATED; CRITICAL VALUE VERIFIED Performed By: #### L MIHAELA SO, CMP #### [facility] [address] [place] [address] Dr. Chris Real Protein [Mass/Vol] 7.1 g/dL Normal 6.1-8.2 [facility] Comment on above: Performed By: #### L MIHAELA SO, CMP #### [facility] [address] [address] [address] Chris Real Sodium [Moles/Vol] 137 mmol/L Normal 137-145 [facility] Comment on above: Performed By: #### L MIHAELA SO, CMP #### [facility] [address] [address] [address] Chris Real Urea nitrogen [Mass/Vol] 12.0 mg/dL Normal 9.0-20.0 [facility] Comment on above: Performed By: #### L MIHAELA SO, CMP #### [facility] [address] [place] [address] Dr. Chris Real Urea nitrogen/Creatinine [Mass ratio] 10.3 mg/mg Normal [facility] Comment on above: Performed By: #### L MIHAELA SO, CMP #### [facility] [address] [place] [address] Dr. Chris Real US RUSSEL DOP LEG [...] KOFFI DAO Date: 2021-08-31 21:29 Normal [facility] XR CHEST 1 Von 08-31-2021 XR CHEST 1 V EXAM: XR CHEST 1 V HISTORY: SHORTNESS OF BREATH COMPARISON: Chest x-ray dated 03/22/2015. FINDINGS: Bilateral interstitial marking prominence. Cardiomegaly. No definite pneumothorax. IMPRESSION: Bilateral interstitial marking prominence and cardiomegaly concerning for pulmonary edema. Electronically authenticated by: LALO HICKMAN Date: 2021-08-31 21:52 Normal [facility] Ambulatory Clinical Summaryo n 02-24-2021 Ambulatory Clinical Summary {[id number] D:[id number] Normal [facility] Patient Educationon 02-25-20 Patient Education Benign Prostatic [...] Document Reviewed: 06/14/2008 ExitCare? Patient Information ?2013 [employer]. [facility] Urology Office/Clinic Noteon 02-24-2021 Urology Office/Clinic Note Chief Complaint 2 month f/u Patient is a 65-year-old male with a history of a left distal ureteral calculus. He status post cystoscopy and retrograde pyelograms, ureteroscopy and urethral dilation. Apparently the urethral dilation has significantly improved his voiding pattern. He had no complaints since his procedure and is here today for follow-up visit. [facility] Staff [place] is a 65 y.o. [...] Urnls Dip Stick Auto w/o Microscopy POC 04360 I have reviewed the previous health record information and history for this pt. from Dr. Caballero. Follow-up With When Contact Information Federico Tavarez MD, Rene Wallace, [facility] [address] [place] [address]- Additional Instructions: prn Patient Education Benign Prostatic [...] [place], [place] (more content not included)... Normal [facility] Comment on above: Result Comment: Elec tronically Signed By: Federico Tavarez MD, Rene Wallace\.br\Date and Time Signed: 02/24/21 13:11 EDT\.br\Electronically Co-Signed By: Radha Lan MA\.br\Date and Time Co-Signed: 02/24/21 11:29 EDT Provider Letteron 02-03-2021 Provider Letter (Inserted Image. Aleshia ble to display) February 03, 2021 INDIO COLLADO [address] [place] [id number] INDIO COLLADO 1955 Dear Indio , You [...] appreciate your understanding. Sincerely, [facility] [address], [place] [address] [facility] Physician Referralon 021 Physician Referral [id number]#[id number]:127 [facility] ECG 12-Leadon 12-02-2020 ECG 12-Lead [id number]:12 7 [facility] Lab Reportson 12-02-2020 Lab Reports [id number]:12 7 [facility] Lab Reports [id number]:12 7 [facility] Lab Reports [id number]:12 7 [facility] Lab Reports [id number]:12 7 [facility] RAD - MISCon 12-02-2020 RAD - MISC [id number]:12 7 [facility] Operative Reporton Operative Report [id number]#1.00CD:12 7 Normal [facility] Ambulatory Clinical Summaryo n 11-13-2020 Ambulatory Clinical Summary {[id number]}C D:[id number] Normal [facility] Patient Educationon 11-13-19 Patient Education Family Medicine [...] Document Reviewed: 08/07/2010 ExitCare? Patient Information ?2013 [employer]. [facility] Physician Orderon 11-13-2020 Physician Order [id number]:12 7 Normal [facility] Pre-Authorization for Medica l Treatmenton 11-13-2020 Pre-Authorization for Medical Treatment [id number]:1 27 Normal [facility] Urology Office/Clinic Noteon 11-13-2020 Urology Office/Clinic Note [...] month fu w/ CT. CT done at [facility] on 10/17/2020 Pt states that he is [...] Present Illness Reviewed urine and CT from [facility]. There have been no associated fever, chills, [...] Urnls Dip Stick Auto w/o Microscopy POC 37603 Urology Procedure Order 3. Nocturia (R35.1: Nocturia) [...] Federico Tavarez MD, Rene Wallace [address] [place] [address]- Additional Instructions: Patient Education Kidney Stones, [id number] I, Radha Lan , personally scribed for Dr. Caballero on 11/13/2020 09:19:01. . Documentation recorded by the scribe, Radha Lan, accurately reflects the services(s) I performed and decisions m (more content not included)... [facility] Comment on above: Result Comment: Elec tronically Signed By: Rene Caballero Jr., MD\.br\Date and Time Signed: 11/13/20 09:42 EST\.br\Electronically Co-Signed By: Radha Lan MA\.br\Date and Time Co-Signed: 11/13/20 09:19 EST RAD - CT Reporton 10-31-2020 RAD - CT Report [id number]:12 7 [facility] Vital Signs Date Time Vital Sign Value Performing Clinician Facility 07-30-2024 15:53-0400 Body height 175.3 cm Juhi HANSEN Work Phone: [facility] 07-30-2024 15:53-0400 Body mass index (BMI) [Ratio] 25.87 kg/m2 Juhi Sullivan PA Work Phone: [facility] 07-30-2024 15:53-0400 Body weight 79.47 kg Juhi HANSEN Work Phone: [facility] 07-30-2024 15:53-0400 Diastolic blood pressure 82 mm[Hg] Juhi Sullivan PA Work Phone: [facility] 07-30-2024 15:53-0400 Heart rate 66 /min Juhi Hemmer PA Work Phone: [facility] 07-30-2024 15:53-0400 Respiratory rate 16 /min Juhi Hemmer PA Work Phone: [facility] 07-30-2024 15:53-0400 SaO2% (BldA) [Mass fraction] 97 % Juhi Hemmer PA Work Phone: [facility] 07-30-2024 15:53-0400 Systolic blood pressure 120 mm[Hg] Juhi Hemmer PA Work Phone: [facility] 12-05-2023 09:55-0500 Body mass index (BMI) [Ratio] 29.51 kg/m2 Juhi Hemmer PA Work Phone: [facility] 12-05-2023 09:55-0500 Body temperature 99 [degF] Juhi Hemmer PA Work Phone: [facility] 12-05-2023 09:55-0500 Body weight 90.63 kg Juhi Hemmer PA Work Phone: [facility] 12-05-2023 09:55-0500 Diastolic blood pressure 100 mm[Hg] Juhi Hemmer PA Work Phone: [facility] 12-05-2023 09:55-0500 Heart rate 102 /min Juhi Hemmer PA Work Phone: [facility] 12-05-2023 09:55-0500 Respiratory rate 16 /min Juhi Hemmer PA Work Phone: [facility] 12-05-2023 09:55-0500 SaO2% (BldA) [Mass fraction] 98 % Juhi Hemmer PA Work Phone: [facility] 12-05-2023 09:55-0500 Systolic blood pressure 162 mm[Hg] Juhi Hemmer PA Work Phone: [facility] 11-08-2023 09:49-0500 Body height 175.3 cm Helen Gonzalez MD Work Phone: [employer] 11-08-2023 09:49-0500 Body mass index (BMI) [Ratio] 29.09 kg/m2 Helen [facility] 11-08-2023 09:49-0500 Body weight 89.36 kg Helen Gonzalez MD [facility] 11-08-2023 09:49-0500 Diastolic blood pressure 86 mm[Hg] Helen Gonzalez MD [facility] 11-08-2023 09:49-0500 Heart rate 48 /min Helen Gonzalez MD [facility] 11-08-2023 09:49-0500 SaO2% (BldA) [Mass fraction] 99 % Helen Gonzalez MD [facility] 11-08-2023 09:49-0500 Systolic blood pressure 160 mm[Hg] Helen Gonzalez MD [facility] 11-09-2022 12:47-0500 Diastolic blood pressure 88 mm[Hg] Fredrick Boothby DO Work Phone: [employer] 11-09-2022 12:47-0500 Heart rate 76 /min Fredrick Boothby DO Work Phone: [employer] 11-09-2022 12:47-0500 Respiratory rate 10 /min Fredrick Boothby DO Work Phone: [employer] 11-09-2022 12:47-0500 SaO2% (BldA) [Mass fraction] 100 % Fredrick Boothby DO Work Phone: [employer] 11-09-2022 12:47-0500 Systolic blood pressure 162 mm[Hg] Fredrick Boothby DO Work Phone: [employer] 11-09-2022 12:17-0500 Body temperature 97 [degF] Fredrick [employer] Work Phone: [employer] 11-09-2022 11:14-0500 Body height 175.3 cm Fredrick [employer] Work Phone: [employer] 11-09-2022 11:14-0500 Body mass index (BMI) [Ratio] 29.98 kg/m2 Fredrick [employer] Work Phone: [facility] 11-09-2022 11:14-0500 Body weight 92.08 kg Fredrick Balihoo Work Phone: [facility] 10-05-2022 10:14-0500 Body height 175.26 cm II Christopher Velazquez Work Phone: [facility] 10-05-2022 10:14-0500 Body mass index (BMI) [Ratio] 31.4 kg/m2 II Christopher Velazquez Work Phone: [facility] 10-05-2022 10:14-0500 Body weight 96.61 kg II Christopher Velazquez Work Phone: [facility] 10-05-2022 09:45-0500 Body temperature 97.5 [degF] II Christopher Velazquez Work Phone: [facility] 10-05-2022 09:45-0500 Diastolic blood pressure 84 mm[Hg] II Christopher Velaqzuez Work Phone: [facility] 10-05-2022 09:45-0500 Heart rate 68 /min II Christopher Velazquez Work Phone: [facility] 10-05-2022 09:45-0500 Respiratory rate 18 /min II Christopher Velazquez Work Phone: [facility] 10-05-2022 09:45-0500 Systolic blood pressure 160 mm[Hg] II Christopher Velazquez Work Phone: [facility] 09-30-2022 13:59-0500 Body temperature 97.9 [degF] II Christopher Velazquez Work Phone: [facility] 09-30-2022 13:59-0500 Diastolic blood pressure 83 mm[Hg] II Christopher Velazquez Work Phone: [facility] 09-30-2022 13:59-0500 Heart rate 56 /min II Christopher Velazquez Work Phone: [facility] 09-30-2022 13:59-0500 SaO2% (BldA) [Mass fraction] 95 % II Christopher Velazquez Work Phone: [facility] 09-30-2022 13:59-0500 Systolic blood pressure 135 mm[Hg] II Christopher Velazquez Work Phone: [facility] 09-30-2022 07:45-0500 Respiratory rate 18 /min II Christopher Velazquez Work Phone: [facility] 09-29-2022 07:28-0500 Body height 175.26 cm II Christopher Velazquez Work Phone: [facility] 09-26-2022 05:50-0500 Body weight 105 kg II Christopher Velazquez Work Phone: [facility] Encounters Encounter Date Encounter Type Care Provider Facility Start: 09-03-2024 End: 09-03-2024 ambulatory NANDO RETANA Not Available Start: 08-22-2024 End: 08-22-2024 Refill Hallie Reaves MA [facility] Comment on above: Lumbar spondylosis Start: 07-30-2024 End: 07-30-2024 Office outpatient visit 25 minutes Juhi HANSEN Work Phone: [facility] Comment on above: Lumbar spondylosis ( Primary Dx); Closed compression fracture of body of L1 vertebra (HCC) (CMS/HCC); Need for vaccination; Retrolisthesis of vertebrae Start: 07-30-2024 End: 07-30-2024 ambulatory JUHI SULLIVAN Not Available Start: 07-30-2024 End: 07-30-2024 Bamboo flowsheet Juhi HANSEN Work Phone: [facility] Start: 07-30-2024 End: 07-30-2024 Bamboo flowsheet Juhi Sullivan PA Work Phone: [facility] Start: 07-12-2024 End: 07-12-2024 ambulatory ALEXANDRE REINOSO Not Available Start: 07-10-2024 [facility] Start: 07-09-2024 End: 07-31-2024 Telephone encounter Eva Sanchez DO Work Phone: [facility] Comment on above: surgery Start: 06-28-2024 End: 06-28-2024 ambulatory EVA SANCHEZ Not Available Start: 06-21-2024 End: 06-21-2024 ambulatory COLLEEN TRINIDAD Not Available Start: 06-14-2024 End: 06-14-2024 ambulatory CHRISTOPHER VELAZQUEZ Not Available Start: 06-13-2024 End: 06-13-2024 ambulatory EVA SANCHEZ Not Available Start: 06-12-2024 End: 06-12-2024 ambulatory COLLEEN KOROMABRENDENDarlene Not Available Start: 06-07-2024 End: 06-07-2024 ambulatory EVA SANCHEZ Not Available Start: 06-06-2024 End: 06-06-2024 ambulatory JOSEP PIERRE Not Available Start: 06-06-2024 End: 06-06-2024 ambulatory [facility] Start: 05-31-2024 End: 05-31-2024 ambulatory CHRISTOPHER VELAZQUEZ Not Available Start: 05-18-2024 End: 05-18-2024 ambulatory CHRISTOPHER B VELAZQUEZ Not Available Start: 05-16-2024 End: 05-16-2024 ambulatory CHRISTOPHER B VELAZQUEZ Not Available Start: 05-09-2024 End: 05-09-2024 ambulatory [facility] Start: 04-30-2024 ambulatory [facility] Start: 04-30-2024 End: 04-30-2024 ambulatory [facility] Start: 04-24-2024 End: 04-24-2024 ambulatory NANDO RETANA Not Available Start: 04-17-2024 End: 04-17-2024 ambulatory NANDO Ibrahim MARLO Not Available Start: 04-10-2024 End: 04-10-2024 ambulatory [facility] Start: 04-05-2024 End: 04-05-2024 ambulatory EVA SANCHEZ Not Available Start: 03-29-2024 End: 03-29-2024 [facility] Start: 03-09-2024 End: 03-09-2024 ambulatory JUHI SULLIVAN Not Available Start: 03-08-2024 End: 03-08-2024 ambulatory [facility] Start: 03-02-2024 ambulatory CHRISTOPHER Jasmin VELAZQUEZ [facility] Start: 03-02-2024 ambulatory CHRISTOPHER VELAZQUEZ [facility] Start: 02-29-2024 ambulatory [facility] [facility] Start: 02-29-2024 End: 02-29-2024 ambulatory [facility] Start: 02-14-2024 End: 02-14-2024 ambulatory [facility] Start: 01-28-2024 End: 01-29-2024 Emergency department patient visit LAUREN Todd [facility] Start: 01-17-2024 End: 01-17-2024 ambulatory NANDO Ibrahim MARLO Not Available Start: 01-09-2024 End: 01-09-2024 ambulatory CHRISTOPHER Castellanos VELAZQUEZ Not Available Start: 12-06-2023 End: 12-06-2023 Office outpatient visit 25 minutes Eva Sanchez DO Work Phone: [facility] Comment on above: Left shoulder pain, unspecified chronicity (Primary Dx); Rotator cuff tear arthropathy of left shoulder; Primary osteoarthritis of left shoulder Start: 12-06-2023 End: 12-06-2023 ambulatory EVA SANCHEZ Not Available Start: 12-05-2023 [employer]MB Bankmargie cook PA Work Phone: [facility] Start: 12-05-2023 Bamboo flowsheet Juhi cook PA Work Phone: [facility] Start: 12-05-2023 End: 12-05-2023 Office outpatient visit 15 minutes Juhi HANSEN Work Phone: [facility] Comment on above: Chronic obstructive pulmonary disease with acute exacerbation (CMS/HCC) (Primary Dx) Start: 12-05-2023 End: 12-05-2023 ambulatory JUHI SULLIVAN Not Available Start: 11-16-2023 End: 11-16-2023 ambulatory CHRISTOPHER VELAZQUEZ Not Available Start: 11-08-2023 End: 11-08-2023 ambulatory [facility] Start: 11-08-2023 End: 11-08-2023 Office outpatient visit 10 minutes Helen Gonzalez MD Work Phone: [facility] Comment on above: Venous insufficiency of both lower extremities (Primary Dx); Lymphedema of both lower extremities Start: 11-03-2023 End: 11-04-2023 [facility] Start: 10-26-2023 Telephone encounter Helen Gonzalez MD Work Phone: [facility] Start: 10-25-2023 End: 10-25-2023 ambulatory EVA SANCHEZ Not Available Start: 10-11-2023 End: 10-11-2023 [facility] Start: 01-10-2023 End: 01-10-2023 ambulatory CHRISTOPHER VELAZQUEZ [facility] Start: 11-09-2022 End: 11-09-2022 ambulatory FREDRICK BABIN [facility] Start: 11-09-2022 End: 11-09-2022 Subsequent hospital visit by physician Fredrick Babin DO Work Phone: [facility] Comment on above: Surgical site infect ion (Primary Dx); Post-op pain Start: 11-08-2022 End: 11-08-2022 ambulatory CHRISTOPHER VELAZQUEZ [facility] Start: 10-19-2022 End: 10-27-2022 Evaluation and management of inpatient FREDRICK BABIN [facility] Start: 10-14-2022 End: 10-14-2022 ambulatory CHRISTOPHER VELAZQUEZ [facility] Start: 10-05-2022 ambulatory Christopher Velazquez Facility:[facility] Start: 10-05-2022 End: 10-05-2022 ambulatory II Christopher Velazquez Work Phone: [facility] Work Phone: Start: 10-05-2022 End: 10-05-2022 Discharged Recurring II Christopher Velazquez Work Phone: [facility] Work Phone: Start: 09-11-2022 End: 09-30-2022 Evaluation and management of inpatient Gordon Smith Facility:[facility] Start: 09-11-2022 End: 09-30-2022 Evaluation and management of inpatient II Christopher Velazquez Work Phone: [facility] Work Phone: Start: 09-06-2022 ambulatory Marina Cheng Facility:[facility] Start: 09-05-2022 End: 09-11-2022 Evaluation and management of inpatient MICHAEL REINOSO [facility] Start: 09-05-2022 Emergency department patient visit CHRISTOPHER VELAZQUEZ [facility] Start: 09-03-2022 End: 09-04-2022 ambulatory Marina Cheng Facility:[facility] Start: 08-20-2022 End: 08-21-2022 ambulatory Marina Cheng Facility:[facility] Start: 08-13-2022 End: 08-14-2022 ambulatory Marina Cheng Facility:[facility] Start: 08-06-2022 End: 08-07-2022 ambulatory MD Henok Laws Facility:[facility] Start: 07-29-2022 End: 07-30-[address] CHRISTOPHER VELAZQUEZ Facility:[facility] Start: 07-14-2022 End: 07-15-[address] JUHI SULLIVAN Facility: Start: 02-15-2022 End: 02-16-2022 Evaluation and management of inpatient CHRISTOPHER Morelia [place] Facility:[facility] Start: 10-22-2021 End: 10-22-[address] CHRISTOPHER VELAZQUEZ Facility: Start: 08-31-2021 End: 09-01-[address] CHRISTOPHER VELAZQUEZ Facility: Procedures Date Procedure Procedure Detail Performing Clinician Start: 12-06-2023 Arthrocentesis aspir &/inj major jt/bursa w/o us Eva Sanchez DO Work Phone: Start: 11-08-2023 Follow-up visit Follow-up FREDA [facility] Start: 11-09-2022 CREATININE W/GFR POI NT OF [...] Td Vaccines (3 - Td or Tdap) [facility] Start: 09-05-2032 DTaP/Tdap/Td vaccine (3 - Td or Tdap) DTaP/Tdap/Td vaccine (3 - Td or Tdap) [facility] Start: 09-27-2029 Screening for malign ant neoplasm of colon [facility] Start: 11-08-2024 Adult BMI Screening Adult BMI Screen ing [facility] Start: 11-08-2024 Tobacco Screening Tobacco Screening [facility] Start: 10-13-2024 Tobacco Screening Tobacco Screening [facility] Start: 10-11-2024 Adult BMI Screening Adult BMI Screen ing [facility] Start: 08-18-2024 Urine screening for protein Diabetes: Urine Protein Screening [facility] Start: 07-30-2024 End: 07-30-2024 Patient encounter procedure 07/30/2024 4:00 PM EDT Office Visit [facility] [address] [facility] [address] [place] [id number] Juhi Sullivan PA [address] [facility] [address] [place] [address] Arrived [facility] Comment on above: Arrived Start: 07-30-2024 End: 07-30-2025 MR Lumbar spine WO contrast MR lumbar spine wo contrast Imaging Routine Lumbar spondylosis Closed compression fracture of body of L1 vertebra (HCC) (CMS/HCC) Retrolisthesis of vertebrae Expected: 07/30/2024, Expires: 07/30/2025 [facility] Work Phone: Comment on above: Expected: 07/30/2024 , Expires: 07/30/2025 Start: 06-24-2024 Influenza vaccination Influenza Vacc ine (#1) [facility] Start: 06-09-2024 Hemoglobin A1c measurement Diabetes: Hemoglobin A1C [facility] Start: 02-07-2024 End: 02-07-2024 Patient encounter procedure 02/07/2024 1:00 PM EDT Office Visit [facility] [address] [place] [address] Helen Gonzalez MD [address] [place] [address] [facility] Start: 01-31-2024 End: 01-31-2024 Patient encounter procedure 01/31/2024 1:15 PM EDT Office Visit [facility] [address] [place] [address] Eva Sanchez, [address] [place] [address] [facility] Start: 01-13-2024 Medicare Annual Well ness (AWV) Medicare Annual Wellness (AWV) [facility] Start: 12-19-2023 End: 12-19-2023 Patient encounter procedure 12/19/2023 2:30 PM EST Office Visit [facility] [address] [place] [address] Christopher Velazquez MD [address] [place] [address] [facility] Start: 12-05-2023 End: 12-05-2023 Patient encounter procedure 12/05/2023 10:00 AM EST Office Visit [facility] [address] [place] [address] Juhi Sullivan PA [address] [place] [address] Arrived [facility] Comment on above: Arrived Start: 11-08-2023 End: 11-08-2023 Patient encounter procedure 11/08/2023 10:10 AM EST Office Visit [facility] [place] [address] Helen Gonzalez MD [address] [place] [address] [facility] Start: 11-03-2023 End: 11-03-2023 Patient encounter procedure 11/03/2023 2:30 PM EST Appointment [facility] [address] [facility] [place] [phone] Helen Gonzalez MD [address] [place] [address] [facility] Start: 10-28-2023 Hemoglobin A1c measurement Diabetes: Hemoglobin A1C [facility] Start: 06-24-2023 COVID-19 Vaccine () COVID-19 Vaccine () [facility] Start: 11-22-2022 End: 11-22-2022 Patient encounter procedure 11/22/2022 Office Visit Orthopedic Surgery Fredrick Babin, DO [address] [address] [facility] Start: 11-15-2022 End: 11-15-2022 Patient encounter procedure 11/15/2022 Office Visit Orthopedic Surgery Fredrick Babin, DO [address] [facility] [address] [place] [address] [facility] Start: 11-09-2022 End: 11-09-2022 ANKLE OPEN REDUCTION INTERNAL FIXATION ANKLE OPEN REDUCTION INTERNAL FIXATION Open wound of left ankle, initial encounter 11/09/2022 11:14 AM EST [facility] Start: 11-08-2022 Annual Wellness Visi t (AWV) Annual Wellness Visit (AWV) [facility] Start: 09-30-2022 [facility] Start: 09-19-2022 Referral to vascular surgeon [facility] Start: 09-11-2022 Hospital admission [facility] Start: 09-11-2022 Referral to clinical operating theatre technician [facility] Start: 05-24-2022 Influenza vaccination Flu vaccine (# 1) [facility] Start: 05-15-2022 Administration of varicella zoster vaccine Zoster (Shingles) Vaccine (2 of 2) [facility] Start: 05-15-2022 Shingles vaccine (2 of 2) Shingles vaccine (2 of 2) [facility] Start: 02-27-2022 Lipid panel [facility] Start: 12-10-2021 COVID-19 Vaccine (4 - Booster for Pfizer series) COVID-19 Vaccine (4 - Booster for Pfizer series) [facility] Start: 04-23-2021 Glaucoma screening Diabetes: R etinopathy Screening [facility] Start: 2021 Fall Risk Screening Fall Risk Screen ing [facility] Start: 2001 Screening for malign ant neoplasm of colon [facility] Start: 1974 Adult BMI Follow Up Plan Adult BMI Follow Up Plan [facility] Start: 1974 Diabetic foot examination Diabetic Foot Exam [facility] Start: 1974 Hepatitis C screening Hepatitis C sc reen [facility] Start: 1968 Depression Screen Depression Screen [facility] Start: 1968 Depression Screening Depression Scre ening [facility] Start: 1956 Glaucoma screening Diabetic Op hthalmology Exam [facility] Start: 1956 Medicare Annual Well ness Visit Medicare Annual Wellness Visit [facility] Start: 1956 Screening for malign ant neoplasm of colon [facility] End: 11-09-2022 INITIATE PACU OXYGEN THERAPY PROTOCOL Initiate PACU Oxygen Therapy Protocol Respiratory Care Routine Continuous until discontinued starting 11/09/2022 [facility] Work Phone: Comment on above: Continuous until dis continued starting 11/09/2022 Patient Education Deep Vein Thro mbosis (Blood Clots in the Legs) (DC) Apixaban Going Home on Blood Thinners [facility] Work Phone: Patient referral [facility] Work Phone: End: 11-09-2022 POC CHEM8 INCLUDES CALC. ANION GAP POC CHEM8 INCLUDES CALC. ANION GAP Point of Care Testing STAT One Time for 1 Occurrences starting 11/09/2022 until 11/09/2022 [facility] Work Phone: Comment on above: One Time for 1 Occur rences starting 11/09/2022 until 11/09/2022 [facility] Immunizations Immunization Date Immunization Notes Care Provider John freed 07-30-2024 Influenza, High-dose Seasonal, Quadrivalent, Preservative Free Juhi Hemmer PA Work Phone: [facility] 08-18-2023 Influenza, High-dose Seasonal, Quadrivalent, Preservative Free Juhi Hemmer PA Work Phone: [facility] 08-18-2023 influenza virus vacc ine, unspecified formulation Juhi Hemmer PA Work Phone: [facility] 09-05-2022 tetanus toxoid, redu vianey diphtheria toxoid, and acellular pertussis vaccine, adsorbed Fredrick Babin DO Work Phone: [facility] 07-05-2022 tetanus toxoid, redu vianey diphtheria toxoid, and acellular pertussis vaccine, adsorbed Juhi Hemmer PA Work Phone: [facility] 03-20-2022 zoster vaccine recombinant Juhi Hemmer PA Work Phone: [facility] 03-20-2022 zoster vaccine, unspecified formulation Helen Gonzalez MD Work Phone: [facility] 03-09-2022 Pneumococcal Conjuga te PCV 20 Juhi Hemmer PA Work Phone: [facility] 02-15-2022 pneumococcal polysaccharide vaccine, 23 valent Juhi Hemkranthi PA Work Phone: [facility] 09-10-2021 influenza, high dose seasonal, preservative-free Juhi Hemmer PA Work Phone: [facility] 09-09-2021 influenza, high dose seasonal, preservative-free Juhi Hemmer PA Work Phone: [facility] 02-23-2021 Pfizer Purple Cap SARS-CoV-2 Vaccination Juhi Sullivan PA Work Phone: [facility] 02-22-2021 Pfizer Purple Cap SARS-CoV-2 Vaccination Juhi Hemmer PA Work Phone: [facility] 01-26-2021 Pfizer Purple Cap SARS-CoV-2 Vaccination Juhi Hemmer PA Work Phone: [facility] 01-25-2021 Pfizer Purple Cap SARS-CoV-2 Vaccination Juhi Hemmer PA Work Phone: [facility] 08-25-2020 influenza, injectabl e, quadrivalent, preservative free Juhi Hemmer PA Work Phone: [facility] 08-06-2020 influenza, high dose seasonal, preservative-free Juhi Hemmer PA Work Phone: [facility] 08-13-2019 Influenza, injectabl e, Madin Chitina Canine Kidney, quadrivalent with preservative Juhi Hemmer PA Work Phone: [facility] 08-13-2019 influenza, injectabl e, madin brandon canine kidney, preservative free Juhi Hemmer PA Work Phone: [facility] 11-07-2018 influenza, injectabl e, quadrivalent, preservative free II Christopher Velazquez Work Phone: [facility] 08-02-2018 seasonal influenza, intradermal, preservative free Juhi Hemmer PA Work Phone: [facility] 08-31-2017 influenza, injectabl e, quadrivalent, preservative free Juhi Hemmer PA Work Phone: [facility] 08-25-2012 pneumococcal polysaccharide vaccine, 23 valent Juhi Hemmer PA Work Phone: [facility] 08-25-2012 seasonal influenza, intradermal, preservative free Juhi Hemmer PA Work Phone: [facility] Healthcare Payers Date Payer Category Payer Medicare (Managed Care) [facility] [id number] 2022 Unknown [id number] 2022 Medicare [id number] 2022 Self-pay 2022 Unknown [id number] 2022 Unknown 2017 Unknown [id number] 2017 Unknown [id number] 2017 Unknown [id number] 2015 Medicare [id number] 1959 Unknown [id number] 1956 Unknown [id number] 2.16.840.1.597212.3.579.2 .647 1956 Unknown [id number] 2.16.840.1.438672.3.579.2 .593 1956 Unknown [id number] 2.16.840.1.509765.3.579.2 .593 1956 Unknown [id number] 2.16.840.1.707892.3.579.2 .593 1956 Unknown [id number] 2.16.840.1.101160.3.579.2 .593 1956 Unknown [id number] 2.16.840.1.306638.3.579.2 .175 1956 Unknown [id number] 2.16.840.1.086875.3.579.2 .196 1956 Unknown [id number] 2.16.840.1.778065.3.579.2 .196 1956 Unknown [id number] 2.16.840.1.454299.3.579.2 .196 1956 Unknown [id number] 2.16.840.1.136500.3.579.2 .196 1956 Unknown [id number] 2.16.840.1.056066.3.579.2 .196 1956 Unknown [id number] 2.16.840.1.081698.3.579.2 .175 1956 Unknown [id number] 2.16.840.1.807002.3.579.2 .1956 Unknown [id number] 2.16.840.1.801699.3.579.2 .175 1956 Unknown [id number] 2.16.840.1.584701.3.579.2 .1956 Unknown [id number] 2.16.840.1.571310.3.579.2 .175 1956 Unknown [id number] 2.16.840.1.204724.3.579.2 .1285 1956 Unknown [id number] 2.16.840.1.434064.3.579.2 .1285 1956 Unknown [id number] 2.16.840.1.316239.3.579.2 .1285 1956 Unknown [id number] 2.16.840.1.469022.3.579.2 .1285 1956 Unknown [id number] 2.16.840.1.776164.3.579.2 .1285 1956 Unknown [id number] 2.16.840.1.185148.3.579.2 .1285 1956 Unknown [id number] 2.16.840.1.313142.3.579.2 .1285 1956 Unknown [id number] 2.16.840.1.647411.3.579.2 .1286 1956 Unknown [id number] 2.16.840.1.321301.3.579.2 .1258 1956 Unknown [id number] 2.16.840.1.097834.3.579.2 .1258 1956 Unknown [id number] 2.16.840.1.239192.3.579.2 .1258 1956 Unknown [id number] 2.16.840.1.728484.3.579.2 .1258 1956 Unknown [id number] 2.16.840.1.311750.3.579.2 .1258 1956 Unknown [id number] 2.16.840.1.233297.3.579.2 .1258 1956 Unknown [id number] 2.16840.1.506170.3.579.2 .1258 1956 Unknown [id number] 2.16.840.1.018726.3.579.2 .1258 1956 Unknown [id number] 2.16.840.1.646177.3.579.2 .1258 1956 Unknown [id number] 2.16.840.1.185230.3.579.2 .1258 1956 Unknown [id number] 2.16.840.1.314268.3.579.2 .1258 1956 Unknown [id number] 2.16.840.1.492860.3.579.2 .1258 1956 Unknown [id number] 2.16.840.1.220895.3.579.2 .1258 1956 Unknown [id number] 2.16.840.1.541032.3.579.2 .1258 1956 Unknown [id number] 2.16.840.1.949182.3.579.2 .1259 1956 Unknown [id number] 2.16.840.1.859662.3.579.2 .1258 1956 Unknown [id number] 2.16.840.1.230046.3.579.2 .9 1956 Unknown [id number] 2.16.840.1.418656.3.579.2 .1258 1956 Unknown [id number] 2.16.840.1.514888.3.579.2 .1258 1956 Unknown [id number] 2.16.840.1.237351.3.579.2 .1258 1956 Unknown [id number] 2.16.840.1.673716.3.579.2 .1258 1956 Unknown [id number] 2.16.840.1.291687.3.579.2 .1258 1956 Unknown [id number] 2.16.840.1.679355.3.579.2 .1258 1956 Unknown [id number] 2.16.840.1.692851.3.579.2 .1259 Private Health Insurance [facility] [id number] Unknown [id number] 2.16.840.1.429608.3.579.2 .531 Unknown [id number] 2.16.840.1.288392.3.579.2 .531 Social History Date Type Detail Facility Start: 09-06-2022 End: 04-17-2024 Tobacco smoking status [facility] Ex-smoker [employer] End: 10-24-2005 History of tobacco use Current smoker [employer] Work Phone: End: 10-24-2005 History of tobacco use Cigarette Smoker [employer] Phone: Start: 09-06-2022 End: 07-25-2023 Tobacco use and exposure Smokeless tobacco non-user [employer] Work Phone: Start: 11-09-2022 End: 07-30-2024 Alcohol intake Ex-drinker (finding) [employer] Phone: Start: 06-06-2013 Alcohol Comment occasional [employer] Phone: Start: 1955 Sex Assigned At Not on file [employer] Work Phone: Start: 10-09-2022 End: 10-19-2022 Exposure to SARS-CoV-2 (event) Not sure [employer] Start: 1955 Sex Assigned At Male [facility] Start: 05-30-2023 End: 07-25-2023 Cigarettes smoked current (pack per day) - Reported [employer] Start: 10-13-2023 End: 11-08-2023 Alcohol intake Current non-drinker of alcohol (finding) [employer] [facility] Start: 05-30-2023 End: 10-13-2023 Tobacco use [facility] How hard is it for y ou to pay for the very basics like food, housing, medical care, and heating Not hard at all [facility] Within the last year , have [...] 08-17-2023 Tobacco Comment Last smoked 10-15 years [facility] Start: 04-28-2023 Alcohol Comment Caffeine intake: yes, coffee [facility] Medical Equipment Procedure Code Equipment Code Equipment Origin al Text Equipment Identifier Dates Screw Bne L80mm Dia3.5mm Pelv [place] S [address] Thrd Sm Hex - [id number] Start: 09-06-2022 Plate Bone L103m m 7 H Strl Lt Lat Dstl Fibular S Stl For - [id number] Start: 10-19-2022 Goals Date Patient Goal Desired Activity /State Personal health goal Comment on above: Formatting of this n ote might be different from the original. Evaluation of progress towards goal: Safe dc transition from hospital to home with family support. Functional Status Date Assessment Result Facility 09-30-2022 Functional status Patient is Pro gressing Toward [facility] Work Phone: 09-11-2022 Functional status Disability Sta tus Patient is Progressing Toward [facility] Work Phone: Mental Status Date Assessment Result Facility 09-30-2022 Cognitive function Cognitive Sta tus Patient at [facility] Work Phone: Clinical Notes 10-31-2020 to 08-22-2024 Telephone Encounter - JADE Porter - 08/22/2024 2:43 PM EDTTelephone Encounter - JADE Porter - 08/22/2024 2:43 PM EDTJADE Porter - 07/30/2024 4:00 PM EDTDischarge Instructions Note Date & Type Note Facility 08-22-2024 Telephone encounter Note OARRS reviewed, Rx sent into patient's pharmacy. [facility] 08-22-2024 Miscellaneous Notes OARRS reviewed, Rx sent into patient's pharmacy. documented in this encounter [facility] 07-30-2024 History of Present illness Narrative Images [...] for sleep 30 tablet 2 [DISCONTINUED] HYDROcodone-acetaminophen (Vici) 5-325 MG tablet Take 1 tablet by [...] SURGERY 2020 BOWEL RESECTION CARDIAC CATHETERIZATION 2018 CARDIAC CATHETERIZATION 03/29/2024 CARDIOVERSION 2023 CARDIOVERSION 04/30/2024 [...] for this visit: Lumbar spondylosis - HYDROcodone-acetaminophen (Vici) 7.5-325 MG tablet; Take 1 tablet by [...] report generated and reviewed. Provided pt with Vici 7.5 mg. Advised the goal will be [...] vaccination - Influenza, high-dose seasonal, quadrivalent, PF ([id number]) (Fluzone High Dose Quad North 0.7mL dose) Provided pt with flu shot today, he tolerated this well. Retrolisthesis of vertebrae Comments: L2-L3 Orders: - MR lumbar spine wo contrast; Future Will assess further with MRI. Follow up in about 3 months (around 10/30/2024) for Medication Follow Up. documented in this encounter [facility] 07-10-2024 Telephone encounter Note We did received cardiac clearance. Referral placed to Dr Willis, he is a shoulder specialist with [facility] in [place]. His phone number is [phone]. Call back with any questions. [facility] 07-10-2024 Miscellaneous Notes We did received cardiac clearance. Referral placed to Dr Willis, he is a shoulder specialist with [facility] in [place]. His phone number is [phone]. Call back with any questions. Pt called and left asking if received cardiac clearance yet from doctor, and if so he would like to schedule his sx. Please call him at [phone] documented in this encounter [facility] 07-09-2024 Telephone encounter Note Pt called and left vm asking if received cardiac clearance yet from doctor, and if so he would like to schedule his sx. Please call him at [phone] [facility] 06-06-2024 Note Pt is here for a one month follow up. Pt needs cleared for surgery. Review of Systems All other systems reviewed and are negative. [facility] 06-06-2024 Note Cardiovascular Medic [facility] SUBJECTIVE Chief Complaint Patient presents with [...] fall along with phasing out working for [employer]. Denies c/o CP, dyspnea, orthopnea, PND, LE [...] work at 3 jobs. He works at [employer] and eats their food when he drinks. [...] working 3 jobs. He started working a [employer] last month, this is when he noticed the weight gain. He admits to eating food at [employer] and drinking more pop that he typically does. He admits he needs to slow down with his jobs. He will likely quit [employer]. He notes that since his gastric bypass [...] (CMS/HCC) (more content not included)... [facility] 05-09-2024 Note Cardiovascular Medic [facility] SUBJECTIVE Chief Complaint Patient presents [...] work at 3 jobs. He works at [employer] and eats their food when he drinks. [...] working 3 jobs. He started working a [employer] last month, this is when he noticed the weight gain. He admits to eating food at [employer] and drinking more pop that he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
--- NOTE | 2024-09-05 09:26 | P.DS_ITS ---
Discharge Plan Discharge Disposition: Home, Self-Care Outpatient Diagnostics: VC Endovenous Ablation 1VeinLT (Routine) Timeframe: 3 Weeks Facility: [facility] - Location: [facility] Ordered By: Delon Kirk Follow Up Appointments: 09/13/24 Plan of Treatment: EVLT of left GSV EVLT Tumescent Anesthesia: 500 mL 0.9% NS with 20 mL 1% Lidocaine and 10 mL 8.4% NAHCO3 Buffered Local Anesthesia: 10 mL of 1% Lidocaine Buffered Print Language: Hong Konger Referrals: Chaz Hurd MD [Physician] - (Arterial stenosis) Discharge Date/Time: 09/05/24 09:27
== END 2024-09-05 09:27 | disposition home or self-care (01) ==
PROVIDERS: PCP Radiology Diagnostic Radiology; Visit Provider Radiology Diagnostic Radiology
DX: I80.01 Phlebitis and thrombophlebitis of superficial vessels of right lower extremity (principal)
CPT/HCPCS: 93971; G0463

== ENCOUNTER 2024-09-13 08:47 | Outpatient (OUT) | payer OTHER, SELFPAY ==
--- NOTE | 2024-09-12 07:34 | V.VEINS.HP ---
Vital Signs 09/13/24 09:00 BP 120/52 BP Location Left Brachial BP Position Sitting BP Cuff Size Adult BP Source Manual Cuff Respiration 18 Pulse 55 L Pulse Source Monitor Pulse Oximetry (%) 97 Oxygen Delivery Method Room Air Comment The patient's blood pressure is elevated. Varicose Veins Patient in today for EVLT of left GSV Alex Alvarado MD personally performed the services described in this documentation, as scribed by Arsh Craft RN in my presence and it is both accurate and complete. Arsh Alvarado RN, am scribing for, and in the presence of, Dr. Alex Villegas and in the presence of the patient. thigh: bilateral, knee: bilateral, calf: bilateral, ankle: bilateral and vasques: bilateral aching, cramping and sharp 10 7 years Worsened in recent months: Yes standing and sitting analgesics, elevating extremities and compression stockings Reports heaviness, limb pain, edema, leg edema and other History of lower extremity trauma: Yes Superficial thrombophlebitis: Yes Family history of varicose veins: yes Has patient had previous lower extremity venous surgery: No Patient has previously received the following treatment(s) for lower extremity varicose veins: Reports none Does patient have a history of : not applicable Does patient intend to have future pregnancies: not applicable Has patient had lower extremity venous scan with relux testing: Yes Support hose used: Yes Problems walking or doing physical activity: Yes How does it affect you: Hurts the worst at night and in the morning Do you walk much: Yes Do you stand much: Yes Review of Systems ROS Narrative Alex Alvraado MD personally performed the services described in this documentation, as scribed by Arsh Craft RN in my presence and it is both accurate and complete. Arsh Alvarado RN, am scribing for, and in the presence of, Dr. Alex Villegas and in the presence of the patient. Status of ROS 10 or more systems reviewed and unremarkable except as noted in history and below Cardiovascular Reports: edema and swelling of feet/ankles Musculoskeletal Reports: extremity pain, extremity swelling, joint pain, joint swelling and muscle cramps Integumentary/Breast Reports: skin pain, skin tenderness, skin swelling and sores [facility] History (Updated 09/05/24 @ 08:45 by Negin Bollenbacher) Phlebitis and thrombophlebitis of superficial vessels of right lower extremity ?I80.01 - Phlebitis and thrombophlebitis of superficial vessels of right lower extremity (ICD-10) Cellulitis ?L03.90 - Cellulitis, unspecified (ICD-10) FH: cholecystectomy ?Z83.79 - Family history of other diseases of the digestive system (ICD-10) Heart failure ?I50.9 - Heart failure, unspecified (ICD-10) Hypertension ?I10 - Essential (primary) hypertension (ICD-10) Diverticula of intestine ?K57.30 - Diverticulosis of large intestine without perforation or abscess without bleeding (ICD-10) Diabetes ?E11.9 - Type 2 diabetes mellitus without complications (ICD-10) CAD (coronary artery disease) ?I25.10 - Atherosclerotic heart disease of [place] coronary artery without angina pectoris (ICD-10) Atrial fibrillation ?I48.91 - Unspecified atrial fibrillation (ICD-10) Chronic GERD ?K21.9 - Gastro-esophageal reflux disease without esophagitis (ICD-10) Back pain ?M54.9 - Dorsalgia, unspecified (ICD-10) Irregular heart beat ?I49.9 - Cardiac arrhythmia, unspecified (ICD-10) Pain due to varicose veins of both lower extremities ?I83.813 - Varicose veins of bilateral lower extremities with pain (ICD-10) Deep vein blood clot of right lower extremity ?I82.401 - Acute embolism and thrombosis of unspecified deep veins of right lower extremity (ICD-10) Deep vein blood clot of left lower extremity ?I82.402 - Acute embolism and thrombosis of unspecified deep veins of left lower extremity (ICD-10) Surgical History (Updated 09/13/24 @ 09:15 by Arsh Craft) Status post laser ablation of incompetent vein ?Z98.890 - Other specified postprocedural states (ICD-10) Status post laser ablation of incompetent vein ?Z98.890 - Other specified postprocedural states (ICD-10) History of tonsillectomy ?Z90.89 - Acquired absence of other organs (ICD-10) H/O heart artery stent ?Z95.5 - Presence of coronary angioplasty implant and graft (ICD-10) History of knee replacement procedure of right knee ?Z96.651 - Presence of right artificial knee joint (ICD-10) Gastric bypass status for obesity ?Z98.84 - Bariatric surgery status (ICD-10) Family History (Updated 08/15/24 @ 09:24 by Mirna Richmond RN) Father Family history of stroke Family history of myocardial infarction Family history of hypertension Father Family history of diabetes mellitus Mother Family history of diabetes mellitus Varicose veins of bilateral lower extremities with pain Brother Family history of cancer Sister Family history of cancer Social History (Updated 08/15/24 @ 09:25 by Mirna Richmond RN) Within the past year, how many standard drinks containing alcohol did you have on a typical day: 1 or 2 Within the past year, how often did you have six or more drinks on one occasion: never Total score: 0 Score interpretation: A score less than 4 is consistent with normal alcohol consumption. Smoking status: Former smoker Nicotine containing products detail: quit 15 years ago. Smoked 1 PPD for 35 years. Non-prescribed substance use: denies use Meds Home Medications and Allergies Home Medications ?Medication ?Instructions ?Recorded ?Confirmed ?Type amiodarone 100 mg tablet 100 mg PO DAILY 08/15/24 08/15/24 History apixaban 5 mg tablet (Eliquis) 5 mg PO BID 08/15/24 08/15/24 History atorvastatin 10 mg tablet 10 mg PO DAILY 08/15/24 08/15/24 History diosmin complex no.1 630 mg tablet 1 tab PO DAILY 08/15/24 08/15/24 History (Vasculera) fluoxetine 20 mg capsule 20 mg PO DAILY 08/15/24 08/15/24 History furosemide 40 mg tablet (Lasix) 40 mg PO DAILY 08/15/24 08/15/24 History gabapentin 300 mg capsule 900 mg PO BID 08/15/24 08/15/24 History metoprolol succinate 25 mg 25 mg PO DAILY 08/15/24 08/15/24 History tablet,extended release 24 hr omeprazole 40 mg capsule,delayed 40 mg PO DAILY 08/15/24 08/15/24 History release potassium chloride 20 mEq oral 20 meq PO DAILY 08/15/24 08/15/24 History packet (Klor-Con) sacubitril 24 mg-valsartan 26 mg 1 tab PO BID 08/15/24 08/15/24 History tablet (Entresto) tizanidine 4 mg capsule (Zanaflex) 4 mg PO TID PRN muscle spasticity 08/15/24 08/15/24 History zolpidem 10 mg tablet (Ambien) 08/15/24 History Allergies Allergy/AdvReac Type Severity Reaction Status Date / Time doxycycline Allergy Unknown Verified 08/15/24 10:16 Penicillins AdvReac Severe Vomiting Verified 08/15/24 09:26 morphine AdvReac Mild Gastrointestinal Verified 08/15/24 10:16 Upset Exam Narrative Exam Narrative: Alex Alvarado MD personally performed the services described in this documentation, as scribed by Arsh Craft RN in my presence and it is both accurate and complete. Arsh Alvarado RN, am scribing for, and in the presence of, Dr. Alex Villegas and in the presence of the patient. Constitutional Documenting provider has reviewed patient's vital signs: yes Common normals: oriented x3 Nutritional appearance: overweight Lymph Lymphatic: no lymphedema noted Cardio Peripheral pulses: posterior tibial pulses present and dorsalis pedis pulses present Extremity General: calf tenderness, edema and other findings Right lower extremity: lower leg Right lower leg: inspection and palpation Left lower extremity: lower leg Left lower leg: inspection and palpation Other: Heeled right proximal anterior lower leg wound. Left heeled mid-medial lower leg wound. Neuro Common normals: oriented x3 Assessment and Plan Assessment and Plan (1) Pain due to varicose veins of both lower extremities: Plan f/u evaluation with physician along with left leg limited u/s Alex Alvarado MD personally performed the services described in this documentation, as scribed by Arsh Craft RN in my presence and it is both accurate and complete. Arsh Alvarado RN, am scribing for, and in the presence of, Dr. Alex Villegas and in the presence of the patient. Procedures Procedure Instructions Procedures Plan of care: Risks and benefits of the procedure were discussed at length and informed written consent was obtained.? Time-out completed for verification of correct patient, procedure and site.? Staff present during time-out: Arsh Craft RN,? Alex Villegas MD, Tricia Gustafson RDHI/RVT, Time Out Time___0921____ Patient prepped and procedure performed in usual sterile fashion. Risk of injury related to use of Diode laser and/or laser devices__CR___ ? Serial number of laser used :? [id number] Control panel self test performed, electrical cords in good condition, floor is dry, basin of water available, fire extinguisher in close proximity_CR__ Polycarbonate goggles available and Laser warning signs outside of doors___CR__ Eye protection provided to patient and staff in room_CR___ Use of laser retardant drapes and dull blackened instruments as directed__CR___ Use of nonflammable prep solutions and use of saline soaked sponges to protect tissues as indicated _CR___ Site #1: left distal leg Length __22cm Joules: 1203 Seconds: 150 Site #2: left proximal leg Length: 26cm Seconds: 174 Joules: 1390 Laser Totals: Joules: 2593 Seconds: 324 Laser operated by ___Dr. Villegas Physician verbal confirmation laser locked in place__CR__ Laser start time (date and time) _09/12/2024@__0937 Laser stop time(date and time) __09/12/2024@_0955 Willams _8.0___ Pulse continuous ___CR_? Pulse intermittent ___ Amount of Tumescent used __250cc____ Evaluated patient for signs and symptoms of electrical injury __CR___ ? Skin clear at insertion site __CR___ Patient tolerated procedure well.? Left leg Coban dressing applied to access site.? Applied Left thigh high leg compression stocking. Will return on 09/19/2024 for Left leg limited venous ultrasound and exam. IAlex MD personally performed the services described in this documentation, as scribed by Arsh Craft RN in my presence and it is both accurate and complete. I, Arsh Craft RN, am scribing for, and in the presence of, Dr. Alex Villegas and in the presence of the patient.
--- NOTE | 2024-09-12 07:38 | W.VEIN ---
Discharge Plan Discharge Disposition: Home, Self-Care Outpatient Diagnostics: VC Facility EST LMTD (Routine) Timeframe: 2 Weeks Facility: [facility] - Location: [facility]in Center Ordered By: Alex Villegas VC EXT Venous LT Limited (Routine) Timeframe: 2 Weeks Facility: [facility] - Location: Vein Center Ordered By: Alex Villegas Follow Up Appointments: 10/19/2024 Plan of Treatment: f/u evaluation with physician along with left leg limited u/s Patient Instructions: Endovenous Ablation (DC) Print Language: Iranian Discharge Date/Time: 09/13/24 09:19
--- NOTE | 2024-09-13 08:48 | VEIN_ITS ---
The [address] [address] Patient Name: INDIO FUENTES MRN: [id number] date: 1955 Sex: M Assigned Patient Location: Current Patient Location: Accession/Order Number: [id number] Exam Date: 09/13/2024 09:08 Report Date: 09/13/2024 12:24 At the request of: INDIO Anderson ROXANNA Procedure: VC Endovenous Ablation 1VeinLT EXAMINATION: VC Endovenous Ablation 1VeinLT HISTORY: I83.813 - Varicose veins of bilateral lower extremities w... The risks and benefits of the procedure had been previously discussed, and were rediscussed at length. Informed written consent was obtained. Arsh Craft RN and Tricia Agarwal RDMS, RVT assisted. Time out procedure was performed. The left lower extremity was prepared and draped in the usual sterile fashion to allow knee flexion in the sterile field. Duplex ultrasound probe was draped in a sterile cover, sterile transmission gel was used. Venous mapping was performed with the areas of dilation and large tributaries marked. The total length was 48 cm from the entry 3 cm above the ankle to 6 cm below the Saphenofemoral junction (5 mm discontiguous segments within proximal calf. A second discontiguous short segment within proximal thigh.. The diameter of the right great saphenous vein ranged from 11.2 mm. A 30 gauge needle and 1% buffered lidocaine was used to anesthetize the entry site. A 4 mm incision was made with a scalpel and the saphenous vein was entered percutaneously under direct ultrasound guidance with a micropuncture set, a single stick was successful in gaining access. A micro-guide wire was inserted and the needle removed. A micro-set including a dilator was inserted over the microwire and the needle and dilator were removed. A guide wire was inserted through the micro-set and guided through the saphenous vein to the saphenofemoral junction. The dilator was removed and an introducer sheath was inserted over the wire until the end of the sheath entered the saphenofemoral junction. The dilator and wire were removed and the 600 micron fiber was introduced and placed and positioned so that it extended beyond the sheath and was 3 cm distal to the saphenofemoral or saphenopopliteal junction. Final position of the fiber was determined by ultrasound guidance and duplex imaging. Tumescent anesthetic was delivered by ultrasound guidance. 250 cc of fluid was delivered along the entire course of the saphenous vein. The solution consisted of 1000 cc of normal saline with 40 mL of 1% lidocaine and 20 mL of sodium bicarbonate. A final positioning check was made. The energy source was turned on by means of the foot pedal and the fiber and sheath were withdrawn. The total number of Joules delivered was 2593. The laser was active for 3 and 24 seconds under continuous pulse, average laser use of 8 J. Laser start time: 9:32 AM Laser stop time: 9:55 AM Date: 09/13/2024. A duplex ultrasound revealed compressibility and flow at the saphenofemoral junction immediately after the procedure. Hemostasis at the access site was achieved. The skin incision of the saphenous vein was closed with a 4 x 4. A compression stocking was applied. Postop instructions were given. A follow up appointment was recommended and scheduled. The patient tolerated the procedure well. Electronically authenticated by: THOMAS COLBERT Date: 09/13/2024 12:24
[2024-09-13] MEDS: LIDOCAINE HCL 1% 100 MG/10 ML MDV INJ (08:50)
[2024-09-13] MEDS: 0.9 % SODIUM CHLORIDE 500 ML, LIDOCAINE HCL 20 ML, SODIUM BICARBONATE 10 MEQ INJ (08:51)
[2024-09-13 09:00] VITALS: BP 120/52; PULSE 55; O2SAT 97
== END 2024-09-13 09:19 | disposition home or self-care (01) ==
LOC: VC 08:48
PROVIDERS: PCP Radiology Diagnostic Radiology; Visit Provider Radiology Diagnostic Radiology
DX: I83.813 Varicose veins of bilateral lower extremities with pain (principal)
CPT/HCPCS: 36478

== ENCOUNTER 2024-09-18 09:36 | Outpatient (OUT) | payer OTHER, SELFPAY ==
--- NOTE | 2024-09-18 07:33 | V.VEINS.HP ---
Varicose Veins Patient in today for follow up ultrasound post EVLT of left GSV Alex Alvarado MD personally performed the services described in this documentation, as scribed by Tricia Agarwal RVT, RDMS in my presence and it is both accurate and complete. Tricia Alvarado RVT, RDMS, am scribing for, and in the presence of, Dr. Alex Villegas and in the presence of the patient. thigh: bilateral, knee: bilateral, calf: bilateral, ankle: bilateral and vasques: bilateral aching, cramping and sharp 10 7 years Worsened in recent months: Yes standing and sitting analgesics, elevating extremities and compression stockings Reports heaviness, limb pain, edema, leg edema and other History of lower extremity trauma: Yes Superficial thrombophlebitis: Yes Family history of varicose veins: yes Has patient had previous lower extremity venous surgery: No Patient has previously received the following treatment(s) for lower extremity varicose veins: Reports none Does patient have a history of : not applicable Does patient intend to have future pregnancies: not applicable Has patient had lower extremity venous scan with relux testing: Yes Support hose used: Yes Problems walking or doing physical activity: Yes How does it affect you: Hurts the worst at night and in the morning Do you walk much: Yes Do you stand much: Yes Review of Systems ROS Narrative Alex Alvarado MD personally performed the services described in this documentation, as scribed by Tricia Agarwal RVT, RDMS in my presence and it is both accurate and complete. Tricia Alvarado RVT, RDMS, am scribing for, and in the presence of, Dr. Alex Villegas and in the presence of the patient. Status of ROS 10 or more systems reviewed and unremarkable except as noted in history and below Cardiovascular Reports: edema and swelling of feet/ankles Musculoskeletal Reports: extremity pain, extremity swelling, joint pain, joint swelling and muscle cramps Integumentary/Breast Reports: skin pain, skin tenderness, skin swelling and sores [facility] Medical History (Updated 09/18/24 @ 07:34 by Tricia Agarwal) Phlebitis and thrombophlebitis of superficial vessels of left lower extremity ?I80.02 - Phlebitis and thrombophlebitis of superficial vessels of left lower extremity (ICD-10) Phlebitis and thrombophlebitis of superficial vessels of right lower extremity ?I80.01 - Phlebitis and thrombophlebitis of superficial vessels of right lower extremity (ICD-10) Cellulitis ?L03.90 - Cellulitis, unspecified (ICD-10) FH: cholecystectomy ?Z83.79 - Family history of other diseases of the digestive system (ICD-10) Heart failure ?I50.9 - Heart failure, unspecified (ICD-10) Hypertension ?I10 - Essential (primary) hypertension (ICD-10) Diverticula of intestine ?K57.30 - Diverticulosis of large intestine without perforation or abscess without bleeding (ICD-10) Diabetes ?E11.9 - Type 2 diabetes mellitus without complications (ICD-10) CAD (coronary artery disease) ?I25.10 - Atherosclerotic heart disease of [place] coronary artery without angina pectoris (ICD-10) Atrial fibrillation ?I48.91 - Unspecified atrial fibrillation (ICD-10) Chronic GERD ?K21.9 - Gastro-esophageal reflux disease without esophagitis (ICD-10) Back pain ?M54.9 - Dorsalgia, unspecified (ICD-10) Irregular heart beat ?I49.9 - Cardiac arrhythmia, unspecified (ICD-10) Pain due to varicose veins of both lower extremities ?I83.813 - Varicose veins of bilateral lower extremities with pain (ICD-10) Deep vein blood clot of right lower extremity ?I82.401 - Acute embolism and thrombosis of unspecified deep veins of right lower extremity (ICD-10) Deep vein blood clot of left lower extremity ?I82.402 - Acute embolism and thrombosis of unspecified deep veins of left lower extremity (ICD-10) Surgical History (Updated 09/13/24 @ 09:15 by Arsh Craft) Status post laser ablation of incompetent vein ?Z98.890 - Other specified postprocedural states (ICD-10) Status post laser ablation of incompetent vein ?Z98.890 - Other specified postprocedural states (ICD-10) History of tonsillectomy ?Z90.89 - Acquired absence of other organs (ICD-10) H/O heart artery stent ?Z95.5 - Presence of coronary angioplasty implant and graft (ICD-10) History of knee replacement procedure of right knee ?Z96.651 - Presence of right artificial knee joint (ICD-10) Gastric bypass status for obesity ?Z98.84 - Bariatric surgery status (ICD-10) Family History (Updated 08/15/24 @ 09:24 by Mirna Richmond RN) Father Family history of stroke Family history of myocardial infarction Family history of hypertension Father Family history of diabetes mellitus Mother Family history of diabetes mellitus Varicose veins of bilateral lower extremities with pain Brother Family history of cancer Sister Family history of cancer Social History (Updated 08/15/24 @ 09:25 by Mirna Richmond RN) Within the past year, how many standard drinks containing alcohol did you have on a typical day: 1 or 2 Within the past year, how often did you have six or more drinks on one occasion: never Total score: 0 Score interpretation: A score less than 4 is consistent with normal alcohol consumption. Smoking status: Former smoker Nicotine containing products detail: quit 15 years ago. Smoked 1 PPD for 35 years. Non-prescribed substance use: denies use Meds Home Medications and Allergies Home Medications ?Medication ?Instructions ?Recorded ?Confirmed ?Type amiodarone 100 mg tablet 100 mg PO DAILY 08/15/24 08/15/24 History apixaban 5 mg tablet (Eliquis) 5 mg PO BID 08/15/24 08/15/24 History atorvastatin 10 mg tablet 10 mg PO DAILY 08/15/24 08/15/24 History diosmin complex no.1 630 mg tablet 1 tab PO DAILY 08/15/24 08/15/24 History (Vasculera) fluoxetine 20 mg capsule 20 mg PO DAILY 08/15/24 08/15/24 History furosemide 40 mg tablet (Lasix) 40 mg PO DAILY 08/15/24 08/15/24 History gabapentin 300 mg capsule 900 mg PO BID 08/15/24 08/15/24 History metoprolol succinate 25 mg 25 mg PO DAILY 08/15/24 08/15/24 History tablet,extended release 24 hr omeprazole 40 mg capsule,delayed 40 mg PO DAILY 08/15/24 08/15/24 History release potassium chloride 20 mEq oral 20 meq PO DAILY 08/15/24 08/15/24 History packet (Klor-Con) sacubitril 24 mg-valsartan 26 mg 1 tab PO BID 08/15/24 08/15/24 History tablet (Entresto) tizanidine 4 mg capsule (Zanaflex) 4 mg PO TID PRN muscle spasticity 08/15/24 08/15/24 History zolpidem 10 mg tablet (Ambien) 08/15/24 History Allergies Allergy/AdvReac Type Severity Reaction Status Date / Time doxycycline Allergy Unknown Verified 08/15/24 10:16 Penicillins AdvReac Severe Vomiting Verified 08/15/24 09:26 morphine AdvReac Mild Gastrointestinal Verified 08/15/24 10:16 Upset Exam Narrative Exam Narrative: Alex Alvarado MD personally performed the services described in this documentation, as scribed by Tricia Agarwal RVT, RDMS in my presence and it is both accurate and complete. Tricia Alvarado RVT, RDMS, am scribing for, and in the presence of, Dr. Alex Villegas and in the presence of the patient. Constitutional Documenting provider has reviewed patient's vital signs: yes Common normals: oriented x3 Nutritional appearance: overweight Lymph Lymphatic: no lymphedema noted Cardio Peripheral pulses: posterior tibial pulses present and dorsalis pedis pulses present Extremity General: calf tenderness, edema and other findings Right lower extremity: lower leg Right lower leg: inspection and palpation Left lower extremity: lower leg Left lower leg: inspection and palpation Other: Heeled right proximal anterior lower leg wound. Left heeled mid-medial lower leg wound. Neuro Common normals: oriented x3 Results Additional Findings Additional findings: The ultrasound demonstrates Heat induced thrombus visualized arising at mid thigh and extending through distal calf. Assessment and Plan Assessment and Plan (1) Phlebitis and thrombophlebitis of superficial vessels of left lower extremity: Plan Patient in today for follow up ultrasound of lower extremity following treatment of EVLT of left leg GSV completed on 09/13/24. Alex Alvarado MD personally performed the services described in this documentation, as scribed by Tricia Agarwal RVT, RDMS in my presence and it is both accurate and complete. Tricia Alvarado RVT, RDMS, am scribing for, and in the presence of, Dr. Alex Villegas and in the presence of the patient.
--- NOTE | 2024-09-18 07:38 | W.VEIN ---
Discharge Plan Discharge Disposition: Home, Self-Care Outpatient Diagnostics: VC Endovenous Ablation 1VeinRT (Routine) Timeframe: 2 Weeks Facility: [facility] - Location: Vein Center Ordered By: Alex Villegas Follow Up Appointments: 09/26/24 Plan of Treatment: EVLT of right leg SSV. Print Language: Lithuanian Discharge Date/Time: 09/18/24 11:35
--- NOTE | 2024-09-18 09:38 | VEIN_ITS ---
Patient Name: INDIO FUENTES MR#: [id number] : 1955 Exam Date: 09/18/2024 Ordering Doctor: DR THOMAS COLBERT M.D. RADIOLOGY REPORT PROCEDURE: [facility] EST LMTD [facility] - OFFICE VISIT FOLLOW UP COMPARISON: [facility], [place], 09/05/2024. PROGRESS NOTES: The patient reports improvement in leg symptoms. There has been interval reduction in varicosities. The patient has followed our recommendations to walk 20-30 minutes once or twice per day since the procedure. Physical exam demonstrates decrease in varicosities of the leg. Persistent varicosities are identified along the legs bilaterally. Review of the ultrasound performed the same day demonstrates occlusive thrombus extending throughout the treated vein(s), see separate report, consistent with a successful ablation. No thrombus extending into or beyond the saphenofemoral junction. The patient expressed a desire to proceed with treatment of remaining incompetent varicosities. The patient was informed that treatment was a process and would require several procedures/sessions. VEIN/[facility] EST LMTD IMPRESSION: 1. Successful ablation of the left great saphenous vein(s). 2. Persistent varicose veins and lower extremity symptoms. PLAN: 1. Endovenous laser ablation of right small saphenous vein. Nurse notes, history and physical were reviewed and confirmed, see attached forms. The nurse was present throughout the physical exam and consultation Dictated by: Thomas Colbert M.D. on 09/18/2024 at 12:49 Approved by: Thomas Colbert M.D. on 09/18/2024 at 12:50
--- NOTE | 2024-09-18 09:38 | VEIN_ITS ---
Patient Name: INDIO FUENTES MR#: [id number] : 1955 Exam Date: 09/18/2024 Ordering Doctor: DR THOMAS VILLEGAS M.D. RADIOLOGY REPORT PROCEDURE: VC EXT VENOUS LT LIMITED COMPARISON: None. INDICATIONS: I80.02 - Phlebitis and thrombophlebitis of superficial ve... TECHNIQUE: Lower extremity cárdenas scale and Duplex Doppler evaluation of the deep venous system from the inguinal ligament through the calf veins. FINDINGS: REGION: Left lower extremity. THROMBI: Negative for DVT. Heat induced thrombus visualized arising at mid thigh and extending through distal calf. COMPRESSIBILITY: Non-compressible segments corresponding to thrombus FLOW: Areas of no flow corresponding to thrombus OTHER: CONCLUSION: 1. Successful post ablation occlusion of left great saphenous vein. Dictated by: Thomas Villegas M.D. on 09/18/2024 at 12:48 Approved by: Thomas Villegas M.D. on 09/18/2024 at 12:49
== END 2024-09-18 11:35 | disposition home or self-care (01) ==
LOC: VC 09:37
PROVIDERS: PCP Radiology Diagnostic Radiology; Visit Provider Radiology Diagnostic Radiology
DX: I80.02 Phlebitis and thrombophlebitis of superficial vessels of left lower extremity (principal)
CPT/HCPCS: 93971; G0463

== ENCOUNTER 2024-09-25 07:38 | Outpatient (OUT) | payer OTHER, SELFPAY ==
--- NOTE | 2024-09-25 07:27 | VEINCLINIC_ITS ---
Vital Signs 09/25/24 07:57 BP 110/70 BP Location Left Brachial BP Position Sitting BP Cuff Size Adult BP Source Manual Cuff Respiration 16 Pulse 48 L Pulse Oximetry (%) 98 Varicose Veins Patient in today for EVLT of right SSV. Delon Alvarado MD personally performed the services described in this documentation, as scribed by Mirna Richmond RN in my presence and it is both accurate and complete. Mirna Alvarado RN, am scribing for, and in the presence of, Dr. Delon Kirk and in the presence of the patient. thigh: bilateral, knee: bilateral, calf: bilateral, ankle: bilateral and vasques: bilateral aching, cramping and sharp 10 7 years Worsened in recent months: Yes standing and sitting analgesics, elevating extremities and compression stockings Reports heaviness, limb pain, edema, leg edema and other History of lower extremity trauma: Yes Superficial thrombophlebitis: Yes Family history of varicose veins: yes Has patient had previous lower extremity venous surgery: No Patient has previously received the following treatment(s) for lower extremity varicose veins: Reports none Does patient have a history of : not applicable Does patient intend to have future pregnancies: not applicable Has patient had lower extremity venous scan with relux testing: Yes Support hose used: Yes Problems walking or doing physical activity: Yes How does it affect you: Hurts the worst at night and in the morning Do you walk much: Yes Do you stand much: Yes Review of Systems ROS Narrative Delon Alvarado MD personally performed the services described in this documentation, as scribed by Mirna Richmond RN in my presence and it is both accurate and complete. Mirna Alvarado RN, am scribing for, and in the presence of, Dr. Delon Kirk and in the presence of the patient. Status of ROS 10 or more systems reviewed and unremark able except as noted in history and below Cardiovascular Reports: edema and swelling of feet/ankles Musculoskeletal Reports: extremity pain, extremity swelling, joint pain, joint swelling and muscle cramps Integumentary/Breast Reports: skin pain, skin tenderness, skin swelling and sores [facility] Medical History (Updated 09/18/24 @ 07:34 by Tricia Agarwal) Phlebitis and thrombophlebitis of superficial vessels of left lower extremity ?I80.02 - Phlebitis and thrombophlebitis of superficial vessels of left lower extremity (ICD-10) Phlebitis and thrombophlebitis of superficial vessels of right lower extremity ?I80.01 - Phlebitis and thrombophlebitis of superficial vessels of right lower extremity (ICD-10) Cellulitis ?L03.90 - Cellulitis, unspecified (ICD-10) FH: cholecystectomy ?Z83.79 - Family history of other diseases of the digestive system (ICD-10) Heart failure ?I50.9 - Heart failure, unspecified (ICD-10) Hypertension ?I10 - Essential (primary) hypertension (ICD-10) Diverticula of intestine ?K57.30 - Diverticulosis of large intestine without perforation or abscess without bleeding (ICD-10) Diabetes ?E11.9 - Type 2 diabetes mellitus without complications (ICD-10) CAD (coronary artery disease) ?I25.10 - Atherosclerotic heart disease of [place] coronary artery without angina pectoris (ICD-10) Atrial fibrillation ?I48.91 - Unspecified atrial fibrillation (ICD-10) Chronic GERD ?K21.9 - Gastro-esophageal reflux disease without esophagitis (ICD-10) Back pain ?M54.9 - Dorsalgia, unspecified (ICD-10) Irregular heart beat ?I49.9 - Cardiac arrhythmia, unspecified (ICD-10) Pain due to varicose veins of both lower extremities ?I83.813 - Varicose veins of bilateral lower extremities with pain (ICD-10) Deep vein blood clot of right lower extremity ?I82.401 - Acute embolism and thrombosis of unspecified deep veins of right lower extremity (ICD-10) Deep vein blood clot of left lower extremity ?I82.402 - Acute embolism and thrombosis of unspecified deep veins of left lower extremity (ICD-10) Surgical History (Updated 09/25/24 @ 08:56 by Mirna Richmond RN) Status post laser ablation of incompetent vein ?Z98.890 - Other specified postprocedural states (ICD-10) Status post laser ablation of incompetent vein ?Z98.890 - Other specified postprocedural states (ICD-10) Status post laser ablation of incompetent vein ?Z98.890 - Other specified postprocedural states (ICD-10) History of tonsillectomy ?Z90.89 - Acquired absence of other organs (ICD-10) H/O heart artery stent ?Z95.5 - Presence of coronary angioplasty implant and graft (ICD-10) History of knee replacement procedure of right knee ?Z96.651 - Presence of right artificial knee joint (ICD-10) Gastric bypass status for obesity ?Z98.84 - Bariatric surgery status (ICD-10) Family History (Updated 08/15/24 @ 09:24 by Mirna Richmond, RN) Father Family history of stroke Family history of myocardial infarction Family history of hypertension Father Family history of diabetes mellitus Mother Family history of diabetes mellitus Varicose veins of bilateral lower extremities with pain Brother Family history of cancer Sister Family history of cancer Social History (Updated 08/15/24 @ 09:25 by Mirna Richmond, RN) Within the past year, how many standard drinks containing alcohol did you have on a typical day: 1 or 2 Within the past year, how often did you have six or more drinks on one occasion: never Total score: 0 Score interpretation: A score less than 4 is consistent with normal alcohol consumption. Smoking status: Former smoker Nicotine containing products detail: quit 15 years ago. Smoked 1 PPD for 35 years. Non-prescribed substance use: denies use Meds Home Medications and Allergies Home Medications ?Medication ?Instructions ?Recorded ?Confirmed ?Type amiodarone 100 mg tablet 100 mg PO DAILY 08/15/24 08/15/24 History apixaban 5 mg tablet (Eliquis) 5 mg PO BID 08/15/24 08/15/24 History atorvastatin 10 mg tablet 10 mg PO DAILY 08/15/24 08/15/24 History diosmin complex no.1 630 mg tablet 1 tab PO DAILY 08/15/24 08/15/24 History (Vasculera) fluoxetine 20 mg capsule 20 mg PO DAILY 08/15/24 08/15/24 History furosemide 40 mg tablet (Lasix) 40 mg PO DAILY 08/15/24 08/15/24 History gabapentin 300 mg capsule 900 mg PO BID 08/15/24 08/15/24 History metoprolol succinate 25 mg 25 mg PO DAILY 08/15/24 08/15/24 History tablet,extended release 24 hr omeprazole 40 mg capsule,delayed 40 mg PO DAILY 08/15/24 08/15/24 History release potassium chloride 20 mEq oral 20 meq PO DAILY 08/15/24 08/15/24 History packet (Klor-Con) sacubitril 24 mg-valsartan 26 mg 1 tab PO BID 08/15/24 08/15/24 History tablet (Entresto) tizanidine 4 mg capsule (Zanaflex) 4 mg PO TID PRN muscle spasticity 08/15/24 08/15/24 History zolpidem 10 mg tablet (Ambien) 08/15/24 History Allergies Allergy/AdvReac Type Severity Reaction Status Date / Time doxycycline Allergy Unknown Verified 08/15/24 10:16 Penicillins AdvReac Severe Vomiting Verified 08/15/24 09:26 morphine AdvReac Mild Gastrointestinal Verified 08/15/24 10:16 Upset Exam Narrative Exam Narrative: Delon Alvarado MD personally performed the services described in this docume ntation, as scribed by Mirna Richmond RN in my presence and it is both accurate and complete. Mirna Alvarado RN, am scribing for, and in the presence of, Dr. Delon Kirk and in the presence of the patient. Constitutional Documenting provider has reviewed patient's vital signs: yes Common normals: oriented x3 Nutritional appearance: overweight Lymph Lymphatic: no lymphedema noted Cardio Peripheral pulses: posterior tibial pulses present and dorsalis pedis pulses present Extremity General: calf tenderness, edema and other findings Right lower extremity: lower leg Right lower leg: inspection and palpation Left lower extremity: lower leg Left lower leg: inspection and palpation Other: Heeled right proximal anterior lower leg wound. Left heeled mid-medial lower leg wound. Neuro Common normals: oriented x3 Assessment and Plan Assessment and Plan (1) Pain due to varicose veins of both lower extremities: Plan The patient tolerated the procedure well without complication.? The patient verbalizes understanding and states they will comply.? Patient was given post-procedure instructions. Patient was discharged in good condition.? Scheduled to undergo follow-up evaluation on 10/02/24. Delon Alvarado MD personally performed the services described in this documentation, as scribed by Mirna Richmond RN in my presence and it is both accurate and complete. Mirna Alvarado RN, am scribing for, and in the presence of, Dr. Delon Kirk and in the presence of the patient. Procedures Procedure Instructions Procedures Plan of care: Risks and benefits of the procedure were discussed at length and informed written consent was obtained.? Time-out completed for verification of correct patient, procedure and site.? Staff present during time-out: Mirna Richmond, RN,? Delon Kirk MD, Tricia Agarwal [facility]. Time Out Time___817____ Patient prepped and procedure performed in usual sterile fashion. Risk of injury related to use of Diode laser and/or laser devices? __AG___ ? Serial number of laser used :? [id number] Control panel self test performed, electrical cords in good condition, floor is dry, basin of water available, fire extinguisher in close proximity_AG__ Polycarbonate goggles available and Laser warning signs outside of doors___AG___ Eye protection provided to patient and staff in room_AG___ Use of laser retardant drapes and dull blackened instruments as directed__AG___ Use of nonflammable prep solutions and use of saline soaked sponges to protect tissues as indicated _AG___ Length ___20 cm Laser operated by Dr. Kirk Physician verbal confirmation laser locked in place__AG__ Laser start time (date and time) _09/25/24@0831 Laser stop time(date and time) __09/25/24@0834 Willams _8.0___ Average laser use ____998___Joules Average laser use____125____seconds Pulse continuous ___AG_? Pulse intermittent ___ Amount of Tumescent used __100____ Evaluated patient for signs and symptoms of electrical injury __AG___ ? Skin clear at insertion site __AG___ Patient tolerated procedure well.? Right leg Coban dressing applied to access site.? Applied Right thigh high leg compression stocking. Will return on 10/02/24 for Right leg limited venous ultrasound and exam. I, Delon Kirk MD personally performed the services described in this documentation, as scribed by Mirna Richmond RN in my presence and it is both accurate and complete. I, Mirna Richmond RN, am scribing for, and in the presence of, Dr. Delon Kirk and in the presence of the patient.
--- NOTE | 2024-09-25 07:29 | P.DS_ITS ---
Discharge Plan Discharge Disposition: Home, Self-Care Outpatient Diagnostics: [facility] Facility EST LMTD (Routine) Timeframe: 2 Weeks Facility: [facility] - Location: Vein Center Ordered By: Delon Kirk VC EXT Venous RT LMTD (Routine) Timeframe: 2 Weeks Facility: [facility] - Location: Vein Center Ordered By: Delon Kirk Follow Up Appointments: 10/02/24 Plan of Treatment: u/s follow up following EVLT of right SSV 09/25/24 Patient Instructions: Endovenous Ablation (DC) Print Language: Serbian Discharge Date/Time: 09/25/24 08:50
--- OUTSIDE RECORDS SUMMARY | 2024-09-25 07:42 | XMS_ITS | CCD ---
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 Other fractures (17 sources) Closed flail chest; Translations: [Flail chest, initial encounter for closed fracture] Onset: 09-05-2022 09-05-2022 Episodic Other gastrointestinal disorders (1 source) Bariatric surgery status; Translations: [BARIATRIC SURGERY STATUS] Onset: 09-03-2021 Episodic Other gastrointestinal disorders (16 sources) Dysphagia; Translations: [Dysphagia, unspecified] Onset: 09-17-2019 04-17-2023 Episodic Other gastrointestinal disorders (16 sources) History of bariatric surgical procedure; Translations: [Bariatric surgery status] Onset: 09-10-2021 04-17-2023 Episodic Other injuries and conditions due to external causes (17 sources) Fracture of bone; Translations: [Other injury of unspecified body region, initial encounter] Onset: 10-19-2022 10-19-2022 Episodic Other lower respiratory disease (2 sources) Other forms of dyspnea; Translations: [Other forms of dyspnea] Onset: 02-14-2024 Episodic Other skin disorders (16 sources) Multiple skin tags; Translations: [Other hypertrophic disorders of the skin] Onset: 10-07-2015 04-17-2023 Episodic Other upper respiratory disease (16 sources) Feeling of lump in throat; Translations: [Globus sensation] Onset: 01-31-2018 04-17-2023 Episodic Phlebitis; thrombophlebitis and thromboembolism (20 sources) H/O: Deep vein thrombosis; Translations: [Personal history of other venous thrombosis and embolism] Onset: 04-09-2013 09-08-2022 Episodic Residual codes; unclassified (17 sources) Insomnia; Translations: [Insomnia, unspecified] Onset: 12-06-2017 09-29-2022 Episodic Residual codes; unclassified (16 sources) Amnesia; Translations: [Other amnesia] Onset: 04-17-2023 04-17-2023 Episodic Residual codes; unclassified (16 sources) Bilateral lower limb edema; Translations: [Localized edema] Onset: 11-11-2017 04-17-2023 Episodic Residual codes; unclassified (16 sources) Edema; Translations: [Edema, unspecified] Onset: 06-18-2013 04-17-2023 Episodic Residual codes; unclassified (16 sources) Impaired exercise tolerance; Translations: [Other general symptoms and signs] Onset: 04-17-2023 04-17-2023 Episodic Residual codes; unclassified (1 source) Pain, unspecified; Translations: [Pain, unspecified] Onset: 03-02-2024 Episodic Screening and history of mental health and substance abuse codes (17 sources) Personal history of nicotine dependence; Translations: [Ex-smoker] Onset: 01-31-2018 04-17-2023 Episodic Skin and subcutaneous tissue infections (1 source) Abscess; Translations: [Cellulitis, unspecified] Onset: 06-08-2013 Episodic Spondylosis; intervertebral disc disorders; other back problems (16 sources) Low back pain; Translations: [Lumbago] Onset: 11-11-2017 04-17-2023 Episodic Unclassified (1 source) CONTACT W/AND (SUSP) EXPOS COVID-19; Translations: [CONTACT W/AND (SUSP) EXPOS COVID-19] Onset: 10-22-2021 Varicose veins of lower extremity (20 sources) Varicose veins of left lower extremity with ulcer of unspecified site; Translations: [Venous stasis ulcer of leg] Onset: 06-18-2013 12-14-2018 Episodic Viral infection (16 sources) Verruca plantaris; Translations: [Plantar wart] Onset: 04-17-2023 04-17-2023 Episodic Results Test Name Value Interpretation Reference Range Facility Prep for Procedureon 024 Prep for Procedure [id number] Jonathan Collado L 1955 M Date Provider Department Center 09/19/2024 Norma-LAMIN ROSA [facility] Family History Problem Relation Age of Onset Coronary artery disease Mother Coronary artery disease Father Family Status - Relation Status Age at Mother Father Normal [facility] Office Visiton 09-18-2024 Follow-up visit [id number] Jonathan Collado L 1955 M Date Provider Department Center 09/18/2024 [address] PRESS[address] [facility] Family History Problem Relation Age of Onset Coronary artery disease Mother Coronary artery disease Father Family Status - Relation Status Age at Mother Father Level of Service:71958 [place] OFFICE/OUTPATIENT ESTABLISHED LOW MDM 20 MIN [facility] 36on 06-29-2024 36 Okay for shoulder enriquez rgery from a cardiology. He is low to intermediate risk for cardiovascular complication. May hold Eliquis 2 days prior and resume as soon as okay with surgeon. 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 He is low to intermediate risk for cardiovascular complication. May hold Eliquis 2 days prior and resume as soon as okay with surgeon. Normal [facility] MR SHOULDER LEFT WO IV CONTR [...] Moderate glenohumeral osteoarthritis. ELECTRONICALLY SIGNED BY: Dariusz Mchugh DO Normal Not Available Comment on above: Order Comment: MRI L T shoulder w/o. To be done at [facility] 37on 06-06-2024 37 *Okay to stop Eliqui s 2 days prior to cataract surgery *[facility] will call you to schedule a heart ultrasound in July. Normal [facility] Office Visiton 06-06-2024 Follow-up visit [id number] Jonathan Collado 1955 M Date Provider Department Center 06/06/2024 Elliott-FAB CORTEZ [facility] Family History Problem Relation Age of Onset Coronary artery disease Mother Coronary artery disease Father Family Status - Relation Status Age at Mother Father Level of Service:08260 [place] OFFICE/OUTPATIENT ESTABLISHED MOD MDM 30 MIN Reason for Visit and Comments: Atrial Fibrillation [80] Congestive Heart Failure [127] Normal [facility] XR LUMBAR SPINE 2-3 VIEWSon 05-18-2024 [...] Bring in to your next appt. Normal [facility] Office Visiton 05-09-2024 Follow-up visit [id number] Jonathan Colldao 1955 M Date Provider Department Center 05/09/2024 Elliott-FAB CORTEZ [facility] Family History Problem Relation Age of Onset Coronary artery disease Mother Coronary artery disease Father Family Status - Relation Status Age at Mother Father Level of Service:03866 [place] OFFICE/OUTPATIENT ESTABLISHED MOD MDM 30 MIN Reason for Visit and Comments: Follow-up [129395] - Follow up cardioversion Normal [facility] HPon 04-30-2024 [facility] Electrophysiology Consult Note [place] [facility] - [facility] Reason for visit: atrial fibrillation [...] on file Intimate Partner Violence: Unknown (12/15/2023) [place] Safety & Environment Fear of Current or [...] good judgement (more content not included)... Normal [facility] NURSNOTEon 04-30-2024 NURSNOTE RN educated pt on d/ c instructions. RN encouraged pt to voice any questions or concerns. Pt verbalizes no questions or concerns at this time. Pt was wheeled off of unit with all of belongings. Normal [facility] Office Visiton 04-10-2024 Follow-up visit [id number] ColladoJonathan 1955 M Date Provider Department Center 04/10/2024 DAVE RODRIGUEZ [facility] Alexandra [facility] Family History Problem Relation Age of Onset Coronary artery disease Mother Coronary artery disease Father Family Status - Relation Status Age at Mother Father Level of Service:00028 [place] OFFICE/OUTPATIENT NEW MODERATE MDM 45 MINUTES Normal [facility] Mony 03-29-2024 ANES ----- ----- Attestation signed by Gama Duncan MD at 03/29/2024 8:24 AM Gama Duncan MD, MPH, [facility], [facility], [facility] Interventional Cardiology Pager Email: [email or web address] ----- Patient: Indio Collado Procedure Information Date/Time: 03/29/24 1230 Procedure: Coronary angiography Location: [facility] 2 BIPTRIANGLE / [facility] (Cath) Providers: Gama Duncan [...] discussed with attending. Additional Equipment Requests Normal [facility] HPon 03-29-2024 ----- ----- Attestation signed by Gama Duncan [...] documentation from me. Gama Duncan MD, MPH, [facility], [facility], [facility] Interventional Cardiology Pager Email: [email or web address] ----- H&P reviewed. The patient was [...] would like to proceed. 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 He works at [employer] and eats their food when he drinks. [...] working 3 jobs. He started working a [employer] last month, this is when he noticed the weight gain. He admits to eating food at [employer] and drinking more pop that he typically does. He admits he needs to slow down with his jobs. He will likely quit [employer]. He notes that since his gastric bypass [...] Cigarettes Smokeless tobacco (more content not included)... [facility] Office Visiton 03-08-2024 Follow-up visit [id number] Jonathan Collado 1955 M Date Provider Department Center 03/08/2024 Elliott-FAB CORTEZ Family History Problem Relation Age of Onset Coronary artery disease Mother Coronary artery disease Father Family Status - Relation Status Age at Mother Father Level of Service:99680 [place] OFFICE/OUTPATIENT ESTABLISHED HIGH MDM 40 MIN Reason for Visit and Comments: Atrial Fibrillation [80] Congestive Heart Failure [127] Hypertension [999141] Normal [facility] ANESon 02-29-2024 ANES ----- ----- Attestation signed by Ellen Taveras MD at 03/15/2024 12:59 PM I personally saw and examined the patient on the same date of service as resident/fellow Dr Bai. I agree with the documentation, except for any edits/updates below. Ellen Taveras MD ----- Patient: Indio Collado Procedure Information Date/Time: 02/29/24 1030 Procedure: Cardioversion Location: [facility] HOLDING ROOM / [facility] (Cath) Providers: Scra Willis MD Clinical information reviewed: Allergies Physical Exam Airway Mallampati: III TM distance: >3 FB Neck ROM: full Cardiovascular Rhythm: regular Rate: normal Dental Pulmonary Abdominal Anesthesia Plan ASA 3 Anesthetic plan and risks discussed with patient. Use of blood products discussed with patient who. Plan discussed with attending. Additional Equipment Requests Normal [facility] NURSNOTEon 02-29-2024 NURSNOTE Bedside swallow stud y completed and passed. Normal [facility] NURSNOTE RN educated pt on d/ c instructions. RN encouraged pt to voice any questions or concerns. Pt verbalizes no questions or concerns at this time. Pt was wheeled off of unit with all of belongings. Normal [facility] POTASSIUMon 02-29-2024 Potassium [Moles/Vol] 3.7 mmol/L Normal 3.5-5.1 [facility] Comment on above: Performed By: #### L AB114 ####[facility] (INGRIDAKER)[address] [place] [address] 36on 02-15-2024 36 Please let him know I also ordered for potassium supplements as his potassium level was low when he was recently in the hospital and the lasix can lower this even more so the supplements are to help this. Please also have him get a BMP either the day before or morning of his appt next week. Thanks! Normal [facility] Telephoneon 02-15-2024 Telephone [id number] Jonathan Collado 1955 M Date Provider Department Center 02/15/2024 ElliottFAB CORTEZ [facility] Family History Problem Relation Age of Onset Coronary artery disease Mother Coronary artery disease Father Family Status - Relation Status Age at Mother Father Normal [facility] 37on 02-14-2024 37 *Increase lasix to 4 0mg twice daily *Hold fludrocortisone *Increase Xarelto to 20mg daily (you can take 2 tablets of 10mg) *Limit your fluid intake to no more than 2 liters a day *Limit your sodium intake, no more than 2500mg/daily *[facility] will call you to schedule a cardioversion *[facility] will call you to schedule a stress test and ECHO Normal [facility] HPon 02-14-2024 HP Cardiovascular Medic [facility] SUBJECTIVE Chief Complaint Patient presents [...] CD (Cardizem (more content not included)... Normal [facility] Office Visiton 02-14-2024 Follow-up visit [id number] Jonathan Collado L 1955 M Date Provider Department Center 02/14/2024 FAB PATTERSON NATA [facility] Family History Problem Relation Age of Onset Coronary artery disease Mother Coronary artery disease Father Family Status - Relation Status Age at Mother Father Level of Service:30464 [place] OFFICE/OUTPATIENT ESTABLISHED MOD MDM 30 MIN Reason for Visit and Comments: Atrial Fibrillation [80] Coronary Artery Disease [187] Normal [facility] Orders Onlyon 02-14-2024 Orders Only [id number] Jonathan Collado L 1955 M Date Provider Department Center 02/14/2024 MILADIS MENCHACA Family History Problem Relation Age of Onset Coronary artery disease Mother Coronary artery disease Father Family Status - Relation Status Age at Mother Father Normal [facility] CBC AND AUTO DIFFon 01-28-20 24 ABSOLUTE BASOPHIL 0.1 X10E9/L Normal 0.0-0.2 [facility] Comment on above: Performed By: #### C BCA, CMP, PINR, 09828-3, 93088-3, 25630-5, 45397-3 #### [facility] ([id number]) [address] [place] [address] 84205 ABSOLUTE NEUTROPHIL 8.5 X10E9/L High 1.5-6.6 [facility] Comment on above: Performed By: #### C BCA, CMP, PINR, 87024-7, 49237-6, 37069-6, 82746-7 #### [facility] ([id number]) [address] [place] [address] 03194 Basophils/100 WBC (Bld) 0.6 % Normal [facility] Comment on above: Performed By: #### C BCA, CMP, PINR, 26704-5, 03708-4, 87939-3, 90062-8 #### [facility] ([id number]) [address] [place] [address] 95716 Eosinophils (Bld) [#/Vol] 0.1 10*3/uL Normal 0.0-0.4 [facility] Comment on above: Performed By: #### C BCA, CMP, PINR, 85558-9, 72329-6, 39521-5, 80418-9 #### [facility] ([id number]) [address] [place] [address] 03324 Eosinophils/100 WBC (Bld) 0.5 % Normal [facility] Comment on above: Performed By: #### C BCA, CMP, PINR, 16598-6, 99805-6, 00433-4, 46814-8 #### [facility] ([id number]) [address] [place] [address] 01853 Erythrocyte distribution width (RBC) [Ratio] 16.5 % High 11.5-15.0 [facility] Comment on above: Performed By: #### C BCA, CMP, PINR, 38640-3, 60315-0, 95291-3, 61094-6 #### [facility] ([id number]) [address] [place] [address] 66767 Hematocrit (Bld) [Volume fraction] 35.7 % Low 39-49 [facility] Comment on above: Performed By: #### C BCA, CMP, PINR, 37587-4, 64491-0, 48406-7, 97762-1 #### [facility] ([id number]) [address] [place] [address] 38424 Hemoglobin (Bld) [Mass/Vol] 12.1 g/dL Low 13.0-17.0 [facility] Comment on above: Performed By: #### C BCA, CMP, PINR, 93622-6, 09383-4, 84465-3, 83100-7 #### [facility] ([id number]) [address] [place] [address] 73391 Lymphocytes (Bld) [#/Vol] 1.2 10*3/uL Normal 1.0-3.5 [facility] Comment on above: Performed By: #### C BCA, CMP, PINR, 03521-0, 35663-1, 80363-1, 44100-8 #### [facility] ([id number]) [address] [place] [address] 29244 Lymphocytes/100 WBC (Bld) 11.6 % Normal [facility] Comment on above: Performed By: #### C BCA, CMP, PINR, 83200-1, 23138-4, 68718-7, 44004-1 #### [facility] ([id number]) [address] [place] [address] 71105 MCH (RBC) [Entitic mass] 28.0 pg Normal 27-34 [facility] Comment on above: Performed By: #### C BCA, CMP, PINR, 25592-1, 87179-6, 16931-8, 22147-2 #### [facility] ([id number]) [address] [place] [address] 62294 MCHC (RBC) [Mass/Vol] 34.0 g/dL Normal 32-36 [facility] Comment on above: Performed By: #### C BCA, CMP, PINR, 05210-2, 06422-6, 16533-0, 09458-5 #### [facility] ([id number]) [address] [place] [address] 75525 MCV (RBC) [Entitic vol] 82 fL Normal 80-100 [facility] Comment on above: Performed By: #### C BCA, CMP, PINR, 16138-4, 81677-0, 89046-4, 45115-6 #### [facility] ([id number]) [address] [place] [address] 51596 Monocytes (Bld) [#/Vol] 0.5 10*3/uL Normal 0-0.9 [facility] Comment on above: Performed By: #### C BCA, CMP, PINR, 33883-3, 70572-8, 69195-2, 60520-2 #### [facility] ([id number]) [address] [place] [address] 81812 Monocytes/100 WBC (Bld) 5.1 % Normal [facility] Comment on above: Performed By: #### C BCA, CMP, PINR, 04377-7, 30405-9, 23584-0, 97018-7 #### [facility] ([id number]) [address] [place] [address] 75883 Neutrophils/100 WBC (Bld) 82.2 % Normal [facility] Comment on above: Performed By: #### C BCA, CMP, PINR, 88732-2, 24353-3, 78855-1, 02313-8 #### [facility] ([id number]) [address] [place] [address] 79526 Platelet mean volume (Bld) [Entitic vol] 8.7 fL Normal 7-12 [facility] Comment on above: Performed By: #### C BCA, CMP, PINR, 30090-5, 99454-6, 62925-8, 80470-3 #### [facility] ([id number]) [address] [place] [address] 84395 Platelets (Bld) [#/Vol] 237 10*3/uL Normal 150-450 [facility] Comment on above: Performed By: #### C BCA, CMP, PINR, 13225-7, 01574-7, 41160-8, 44496-3 #### [facility] ([id number]) [address] [place] [address] 94385 RBC COUNT 4.33 X10E12/L Normal 4.10-5.70 [facility] Comment on above: Performed By: #### C BCA, CMP, PINR, 60598-1, 61339-8, 43404-9, 29449-3 #### [facility] ([id number]) [address] [place] [address] 93439 WBC (Bld) [#/Vol] 10.4 10*3/uL Normal 4.0-11.0 [facility] Comment on above: Performed By: #### C BCA, CMP, PINR, 08664-9, 24078-6, 83256-2, 78121-3 #### [facility] ([id number]) [address] [place] [address] 47367 COMPREHENSIVE METABOLIC PANE Carl 01-28-2024 Albumin [Mass/Vol] 3.4 g/dL Normal 3.2-5.3 [facility] Comment on above: Performed By: #### C BCA, CMP, PINR, 03260-3, 62740-1, 29876-7, 52560-3 #### [facility] ([id number]) [address] [place] [address] 94943 ALP [Catalytic activity/Vol] 109 U/L Normal 39-130 [facility] Comment on above: Performed By: #### C BCA, CMP, PINR, 63323-1, 31160-4, 34647-6, 99680-0 #### [facility] ([id number]) [address] [place] [address] 79715 ALT [Catalytic activity/Vol] 24 U/L Normal 0-40 [facility] Comment on above: Performed By: #### C BCA, CMP, PINR, 43442-0, 07370-3, 23673-6, 35207-5 #### [facility] ([id number]) [address] [place] [address] 96137 Anion gap [Moles/Vol] 7 mmol/L Normal 5-15 [facility] Comment on above: Performed By: #### C BCA, CMP, PINR, 71105-5, 61532-2, 30358-5, 00086-2 #### [facility] ([id number]) [address] [place] [address] 91581 AST [Catalytic activity/Vol] 19 U/L Normal 0-41 [facility] Comment on above: Performed By: #### C BCA, CMP, PINR, 27090-5, 64906-2, 81933-4, 70705-0 #### [facility] ([id number]) [address] [place] [address] 37916 Bilirubin [Mass/Vol] 2.5 mg/dL High 0.3-1.2 [facility] Comment on above: Performed By: #### C BCA, CMP, PINR, 59059-3, 09676-0, 40406-7, 80219-9 #### [facility] ([id number]) [address] [place] [address] 85654 Calcium [Mass/Vol] 7.8 mg/dL Low 8.5-10.5 [facility] Comment on above: Performed By: #### C BCA, CMP, PINR, 18067-4, 99432-1, 53653-2, 03251-8 #### [facility] ([id number]) [address] [place] [address] 00823 Chloride [Moles/Vol] 103 mmol/L Normal 98-109 [facility] Comment on above: Performed By: #### C BCA, CMP, PINR, 13184-4, 43317-5, 70430-1, 59920-6 #### [facility] ([id number]) [address] [place] [address] 44852 CO2 [Moles/Vol] 24 mmol/L Normal 22-32 [facility] Comment on above: Performed By: #### C BCA, CMP, PINR, 95153-9, 46745-9, 63038-4, 13459-9 #### [facility] ([id number]) [address] [place] [address] 18745 Creatinine [Mass/Vol] 1.09 mg/dL Normal 0.70-1.20 [facility] Comment on above: Result Comment: METH OD TRACEABLE TO IDMS STANDARD Performed By: #### C BCA, CMP, PINR, 54242-5, 74818-4, 25829-9, 90239-1 #### [facility] ([id number]) [address] [place] [address] 60638 GFR/1.73 sq M.predicted among non-blacks MDRD (S/P/Bld) [Vol rate/Area] 74 mL/min/{1.73_m2} Normal >59 [facility] Comment on above: Result Comment: Reported eGFR is based on the CKD-EPI 2020 equation that does not use a race coefficient. Performed By: #### C BCA, CMP, PINR, 15494-6, 44966-3, 40727-6, 71985-2 #### [facility] ([id number]) [address] [place] [address] 99623 Glucose [Mass/Vol] 131 mg/dL High 65-99 [facility] Comment on above: Performed By: #### C BCA, CMP, PINR, 02100-7, 38621-9, 41019-9, 81351-4 #### [facility] ([id number]) [address] [place] [address] 27858 Potassium [Moles/Vol] 3.2 mmol/L Low 3.5-5.0 [facility] Comment on above: Performed By: #### C BCA, CMP, PINR, 74931-7, 50510-6, 25822-4, 07866-6 #### [facility] ([id number]) [address] [place] [address] 65481 Protein [Mass/Vol] 6.3 g/dL Normal 6.0-8.0 [facility] Comment on above: Performed By: #### C BCA, CMP, PINR, 40021-9, 42938-4, 42057-4, 60808-1 #### [facility] ([id number]) [address] [place] [address] 68042 Sodium [Moles/Vol] 134 mmol/L Normal 134-146 [facility] Comment on above: Performed By: #### C BCA, CMP, PINR, 26298-3, 64976-4, 09606-4, 59464-0 #### [facility] ([id number]) [address] [place] [address] 50828 Urea nitrogen [Mass/Vol] 22 mg/dL Normal 5-27 [facility] Comment on above: Performed By: #### C BCA, CMP, PINR, 59488-9, 53483-4, 72461-1, 81099-8 #### [facility] ([id number]) [address] [place] [address] MAGNESIUMon 01-28-2024 Magnesium [Mass/Vol] 1.9 mg/dL Normal 1.8-2.6 [facility] Comment on above: Performed By: #### C BCA, CMP, PINR, 34856-4, 05197-3, 70310-2, 07321-1 #### [facility] ([id number]) [address] [place] [address]59 Natriuretic peptide B [Mass/ Vol]on 01-28-2024 Natriuretic peptide B (Bld) [Mass/Vol] 320 pg/mL High <100.0 [facility] Comment on above: Performed By: #### C BCA, CMP, PINR, 72920-3, 70524-8, 21322-7, 15025-9 #### [facility] ([id number]) [address] [place] [address] 935[address] PROTIME AND INRon 01-28-2024 INR Coag (PPP) [Relative time] 2.0 {INR} High 0.8-1.1 [facility] Comment on above: Performed By: #### C BCA, CMP, PINR, 29351-0, 53934-0, 29860-8, 13544-7 #### [facility] ([id number]) [address] [place] [address] 41158 PT Coag (PPP) [Time] 23.2 s High 9.8-13.2 [facility] Comment on above: Result Comment: NEW REFERENCE RANGE Performed By: #### C BCA, CMP, PINR, 86510-3, 12491-5, 97785-9, 97122-7 #### [facility] ([id number]) [address] [place] [address]687 SARS/FLU A+B/RSV by NAAT/Mol ecularon 01-28-2024 SARS/FLU [...] operators who are performing tests using either PrepChamps or edo systems and is limited to laboratories that [...] repeat. Fact Sheet for Healthcare Providers: https://www.fda.gov/media /941617/download Fact Sheet for Patients: https://www.fda.gov/media /670735/download Normal [facility] Comment on above: Performed By: #### C OVFLR #### [facility] ([id number]) [address] [place] [address] 63557 TROPONIN Ion 01-28-2024 Troponin I.cardiac [Mass/Vol] 0.03 ng/mL Normal 0.00-0.04 [facility] Comment on above: Performed By: #### C BCA, CMP, PINR, 60755-4, 02906-9, 67757-6, 29425-8 #### [facility] ([id number]) [address] [place] [address] 87167 XR CHEST 1 VWon 01-28-2024 XR CHEST [...] with and/or edited the report Finalized by Diapk Carbajal MD on 01/28/2024 10:34 AM Normal [facility] aPTT Coag (PPP) [Time]on aPTT Coag (Bld) [Time] 46 s High 26-37 Pr [facility] Comment on above: Result Comment: NEW REFERENCE RANGE Performed By: #### C BCA, CMP, PINR, 48661-8, 96082-3, 49771-7, 77202-8 #### [facility] ([id number]) [address] [place] [address] No Panel Informationon 12-06 Eva Sanchez DO [...] Fredrick Babin DO 01/12/23 Final result Normal [facility] XR ANKLE LEFT (MIN 3 VIEWS)o n [...] new acute fracture or osseous abnormality seen. Marion seen on medial ankle correlating with Integra application. Diffuse calcifications seen proximally, most likely related to PVD, seen in previous images as well. ? Impression: Interval healing of left ankle with maintained alignment of fracture site and intact hardware without signs of loosening. Interpreted by: DO Michael Richard DO Signed by: Michael Reinoso DO 11/10/22 Final result Normal [facility] Creatinine W/GFR Point of Ca reon 11-09-2022 Creatinine [Mass/Vol] 0.87 mg/dL 0.51 - 1.19 mg/dL [facility] Upclique eGFR, POC mL/min/1.7 3m2 [facility] Comment on above: Effective Jul 26, 2022 These results are not intended for use in patients <18 years of age. eGFR results are calculated without a race factor using the 2021 CKD-EPI equation. Careful clinical correlation is recommended, particularly when comparing to results calculated using previous equations. The CKD-EPI equation is less accurate in patients with extremes of muscle mass, extra-renal metabolism of creatine, excessive creatine ingestion, or following therapy that affects renal tubular secretion. No Panel Informationon 11-09 [facility] OPERATIVE REPORTon 3 OPERATIVE REPORT [address] [address] OPERATIVE REPORT PATIENT NAME: INDIO COLLADO : 1955 [facility] REC NO: [id number] ROOM: ACCOUNT NO: [id number] ADMIT DATE: 11/09/2022 PROVIDER: Fredrick Babin DATE OF PROCEDURE: 11/09/2022 PREOPERATIVE DIAGNOSIS: Medial wound, left ankle. POSTOPERATIVE DIAGNOSIS: Medial wound, left ankle. PROCEDURE: 1. Application of split-thickness skin graft to medial ankle wound measuring 5 x 4 cm. 2. Application of negative pressure wound VAC, left ankle. SURGEON: Fredrick Babin DO SECOND TIME WORKER: Lsis Matute DO, PGY-2 and lOga Lidia Park MD, PGY-1 ANESTHESIA: General. ESTIMATED [...] my clinic in one week. FREDRICK BABIN [id number] Doc#: [id number] CC: Normal [facility] POCT Glucoseon 11-09-2022 Glucose [Mass/Vol] 93 mg/dL 74 - 100 mg/dL [facility] POCT urea (BUN)on 11-09-2022 Urea nitrogen [Mass/Vol] 12 mg/dL 8 - 26 mg/dL [facility] Basic Metab w/rfx MGon 10-22 Anion gap [Moles/Vol] 9 mmol/L Normal 9-17 [facility] Comment on above: Performed By: #### B MPX #### [address] [address] Active Directory Administrator: Bret Vazquez MD Calcium [Mass/Vol] 8.1 mg/dL Low 8.6-10.4 [facility] Comment on above: Performed By: #### B MPX #### [address] [address] Active Directory Administrator: Bret Vazquez MD Chloride [Moles/Vol] 102 mmol/L Normal 98-107 [facility] Comment on above: Performed By: #### B MPX #### [address] [address] Active Directory Administrator: Bret Vazquez MD CO2 [Moles/Vol] 26 mmol/L Normal 20-31 [facility] Comment on above: Performed By: #### B MPX #### [facility] [employer] [address] [place] [address] Active Directory Administrator: Bret Vazquez MD Creatinine [Mass/Vol] 0.59 mg/dL Low 0.70-1.20 [facility] Comment on above: Performed By: #### B MPX #### [address] [address] Active Directory Administrator: Bret Vazquez MD GFR/1.73 sq M.predicted among non-blacks MDRD (S/P/Bld) [Vol rate/Area] mL/min/{1.73_m2} Normal >60 [facility] Comment on above: Result Comment: Effective Jul [...] secretion. Performed By: #### B MPX #### [address] [address] Active Directory Administrator: Bret Vazquez MD Glucose [Mass/Vol] 93 mg/dL Normal 70-99 [facility] Comment on above: Performed By: #### B MPX #### [place] [address] Active Directory Administrator: Bret Vazquez MD Potassium [Moles/Vol] 4.3 mmol/L Normal 3.7-5.3 [facility] Comment on above: Performed By: #### B MPX #### [place] [address] Active Directory Administrator: Bret Vazquez MD Sodium [Moles/Vol] 137 mmol/L Normal 135-144 [facility] Comment on above: Performed By: #### B MPX #### [address] [address] Active Directory Administrator: Bret Vazquez MD Urea nitrogen [Mass/Vol] 9 mg/dL Normal 8-23 [facility] Comment on above: Performed By: #### B MPX #### [place] [address] Active Directory Administrator: Bret Vazquez MD CBC with Diffon 10-20-2022 Abs. Basophil 0.04 k/uL Normal 0.00-0.20 [facility] Comment on above: Performed By: #### E RTPF, CK, ECENZ, VD25 #### [address] [address] Active Directory Administrator: Bret Vazquez MD Abs.Imm.Granulocyte <0.03 Normal 0.00-0.30 [facility] Comment on above: Performed By: #### E RTPF, CK, ECENZ, VD25 #### [address] [address] Active Directory Administrator: Bret Vazquez MD Abs.Neutrophil (Seg) 4.45 k/uL Normal 1.50-8.10 [facility] Comment on above: Performed By: #### E RTPF, CK, ECENZ, VD25 #### [address] [address] Active Directory Administrator: Bret Vazquez MD Basophils/100 WBC (Bld) 1 % Normal 0-2 [facility] Comment on above: Performed By: #### E RTPF, CK, ECENZ, VD25 #### [place] [address] Active Directory Administrator: Bret Vazquez MD Eosinophils (Bld) [#/Vol] 0.11 10*3/uL Normal 0.00-0.44 [facility] Comment on above: Performed By: #### E RTPF, CK, ECENZ, VD25 #### [address] [address] Active Directory Administrator: Bret Vazquez MD Eosinophils/100 WBC (Bld) 2 % Normal 1-4 [facility] Comment on above: Performed By: #### E RTPF, CK, ECENZ, VD25 #### [place] [address] Active Directory Administrator: Bret Vazquez MD Erythrocyte distribution width (RBC) [Ratio] 14.5 % High 11.8-14.4 [facility] Comment on above: Performed By: #### E RTPF, CK, ECENZ, VD25 #### [address] [address] Active Directory Administrator: Bret Vazquez MD Hematocrit (Bld) [Volume fraction] 33.5 % Low 40.7-50.3 [facility] Comment on above: Performed By: #### E RTPF, CK, ECENZ, VD25 #### [facility] [employer] [address] [place] [address] Active Directory Administrator: Bret Vazquez MD Hemoglobin (Bld) [Mass/Vol] 10.8 g/dL Low 13.0-17.0 [facility] Comment on above: Performed By: #### E RTPF, CK, ECENZ, VD25 #### [facility] [employer] [address] [place] [address] Active Directory Administrator: Bret Vazquez MD Immature granulocytes/100 WBC (Bld) 0 % Normal 0 [facility] Comment on above: Performed By: #### E RTPF, CK, ECENZ, VD25 #### [address] [address] Active Directory Administrator: Bret Vazquez MD Lymphocytes (Bld) [#/Vol] 1.28 10*3/uL Normal 1.10-3.70 [facility] Comment on above: Performed By: #### E RTPF, CK, ECENZ, VD25 #### [address] [address] Active Directory Administrator: Bret Vazquez MD Lymphocytes/100 WBC (Bld) 19 % Low 24-43 [facility] Comment on above: Performed By: #### E RTPF, CK, ECENZ, VD25 #### [facility] [employer] [address] [place] [address] Active Directory Administrator: Bret Vazquez MD MCH (RBC) [Entitic mass] 29.0 pg Normal 25.2-33.5 [facility] Comment on above: Performed By: #### E RTPF, CK, ECENZ, VD25 #### [facility] [employer] [address] [place] [address] Active Directory Administrator: Bret Vazquez MD MCHC (RBC) [Mass/Vol] 32.2 g/dL Normal 28.4-34.8 [facility] Comment on above: Performed By: #### E RTPF, CK, ECENZ, VD25 #### [address] [address] Active Directory Administrator: Bret Vazquez MD MCV (RBC) [Entitic vol] 90.1 fL Normal 82.6-102.9 [facility] Comment on above: Performed By: #### E RTPF, CK, ECENZ, VD25 #### [address] [address] Active Directory Administrator: Bret Vazquez MD Monocytes (Bld) [#/Vol] 0.70 10*3/uL Normal 0.10-1.20 [facility] Comment on above: Performed By: #### E RTPF, CK, ECENZ, VD25 #### [address] [address] Active Directory Administrator: Bret Vazquez MD Monocytes/100 WBC (Bld) 11 % Normal 3-12 [facility] Comment on above: Performed By: #### E RTPF, CK, ECENZ, VD25 #### [address] [address] Active Directory Administrator: Bret Vazquez MD Neutrophil (Seg) 67 % High 36-65 [facility] Comment on above: Performed By: #### E RTPF, CK, ECENZ, VD25 #### [address] [address] Active Directory Administrator: Bret Vazquez MD NRBC Automated 0.0 per 100 WBC Normal 0.0 [facility] Comment on above: Performed By: #### E RTPF, CK, ECENZ, VD25 #### [address] [address] Active Directory Administrator: Bret Vazquez MD Platelet mean volume (Bld) [Entitic vol] 10.3 fL Normal 8.1-13.5 [facility] Comment on above: Performed By: #### E RTPF, CK, ECENZ, VD25 #### [address] [address] Active Directory Administrator: Bret Vazquez MD Platelets (Bld) [#/Vol] 236 10*3/uL Normal 138-453 [facility] Comment on above: Performed By: #### E RTPF, CK, ECENZ, VD25 #### [address] [address] Active Directory Administrator: Bret Vazquez MD RBC (Bld) [#/Vol] 3.72 10*6/uL Low 4.21-5.77 [facility] Comment on above: Performed By: #### E RTPF, CK, ECENZ, VD25 #### [address] [address] Active Directory Administrator: Bret Vazquez MD RBC morphology finding Nom (Bld) ANISOCYTOSIS PRESENT Normal [facility] Comment on above: Performed By: #### E RTPF, CK, ECENZ, VD25 #### [address] [address] Active Directory Administrator: Bret Vazquez MD WBC (Bld) [#/Vol] 6.6 10*3/uL Normal 3.5-11.3 [facility] Comment on above: Performed By: #### E RTPF, CK, ECENZ, VD25 #### [address] [address] Active Directory Administrator: Bret Vazquez MD Comp Metabolic Pr/rfx MGon 1 12-21-2021 Albumin [Mass/Vol] 2.6 g/dL Low 3.5-5.2 [facility] Comment on above: Performed By: #### E RTPF, CK, ECENZ, VD25 #### [address] [address] Active Directory Administrator: Bret Vazquez MD Albumin/Glob Ratio 1.2 Normal 1.0-2.5 [facility] Comment on above: Performed By: #### E RTPF, CK, ECENZ, VD25 #### [address] [address] Active Directory Administrator: Bret Vazquez MD Alkaline Phos 104 U/L Normal 40-129 [facility] Comment on above: Performed By: #### E RTPF, CK, ECENZ, VD25 #### [address] [address] Active Directory Administrator: Bret Vazquez MD ALT [Catalytic activity/Vol] 7 U/L Normal 5-41 [facility] Comment on above: Performed By: #### E RTPF, CK, ECENZ, VD25 #### [address] [address] Active Directory Administrator: Bret Vazquez MD Anion gap [Moles/Vol] 7 mmol/L Low 9-17 [facility] Comment on above: Performed By: #### E RTPF, CK, ECENZ, VD25 #### [address] [address] Active Directory Administrator: Bret Vazquez MD AST [Catalytic activity/Vol] 13 U/L Normal <40 [facility] Comment on above: Performed By: #### E RTPF, CK, ECENZ, VD25 #### [address] [address] Active Directory Administrator: Bret Vazquez MD Bilirubin [Mass/Vol] 0.9 mg/dL Normal 0.3-1.2 [facility] Comment on above: Performed By: #### E RTPF, CK, ECENZ, VD25 #### [address] [address] Active Directory Administrator: Bret Vazquez MD Calcium [Mass/Vol] 8.0 mg/dL Low 8.6-10.4 [facility] Comment on above: Performed By: #### E RTPF, CK, ECENZ, VD25 #### [address] [address] Active Directory Administrator: Bret Vazquez MD Chloride [Moles/Vol] 103 mmol/L Normal 98-107 [facility] Comment on above: Performed By: #### E RTPF, CK, ECENZ, VD25 #### [address] [address] Active Directory Administrator: Bret Vazquez MD CO2 [Moles/Vol] 25 mmol/L Normal 20-31 [facility] Comment on above: Performed By: #### E RTPF, CK, ECENZ, VD25 #### [address] [address] Active Directory Administrator: Bret Vazquez MD Creatinine [Mass/Vol] 0.67 mg/dL Low 0.70-1.20 [facility] Comment on above: Performed By: #### E RTPF, CK, ECENZ, VD25 #### [place] [address] Active Directory Administrator: Bret Vazquez MD GFR/1.73 sq M.predicted among non-blacks MDRD (S/P/Bld) [Vol rate/Area] mL/min/{1.73_m2} Normal >60 [facility] Comment on above: Result Comment: Effective Jul [...] #### E RTPF, CK, ECENZ, VD25 #### [address] [address] Active Directory Administrator: Bret Vazquez MD Glucose [Mass/Vol] 99 mg/dL Normal 70-99 [facility] Comment on above: Performed By: #### E RTPF, CK, ECENZ, VD25 #### [address] [address] Active Directory Administrator: Bret Vazquez MD Potassium [Moles/Vol] 4.3 mmol/L Normal 3.7-5.3 [facility] Comment on above: Performed By: #### E RTPF, CK, ECENZ, VD25 #### [address] [address] Active Directory Administrator: Bret Vazquez MD Protein [Mass/Vol] 4.7 g/dL Low 6.4-8.3 [facility] Comment on above: Performed By: #### E RTPF, CK, ECENZ, VD25 #### [address] [address] Active Directory Administrator: Bret Vazquez MD Sodium [Moles/Vol] 135 mmol/L Normal 135-144 [facility] Comment on above: Performed By: #### E RTPF, CK, ECENZ, VD25 #### [address] [address] Active Directory Administrator: Bret Vazquez MD Urea nitrogen [Mass/Vol] 11 mg/dL Normal 8-23 [facility] Comment on above: Performed By: #### E RTPF, CK, ECENZ, VD25 #### [facility] [employer] [address] [place] [address] Active Directory Administrator: Bret Vazquez MD XR ANKLE LEFT (MIN [...] Peter Mosquera DO 10/20/22 Final result Normal [facility] FLUORO FOR SURGICAL PROCEDUR ESon 10-19-2022 FLUORO FOR SURGICAL PROCEDURES Radiology exam is complete. No Radiologist dictation. Please follow up with ordering provider. Final result Normal [facility] OPERATIVE REPORTon OPERATIVE REPORT [address] [address] OPERATIVE REPORT PATIENT NAME: INDIO COLLADO : 1955 MED REC NO: [id number] ROOM: 0238 ACCOUNT NO: [id number] ADMIT DATE: 10/19/2022 PROVIDER: Fredrick Babin DATE [...] tissue from the fracture and then using [id number] clamps as well as K-wires, achieved reduction. [...] Integra glycosami (more content not included)... Normal [facility] XR ANKLE LEFT (MIN 3 VIEWS)o n [...] Dallin Pineda MD 10/19/22 Final result Normal [facility] Aerobic Cultureon 09-27-2022 Aerobic Culture ORGANISM: Enterococc [...] RESISTANT TO ALL B-LACTAM DRUGS. PERFORMED BY: [address] [address] PATHOLOGIST ERP IMPLEMENTATION CONSULTANT XU TAPIA M.D. Normal [facility] Comment on above: Performed By: #### G LULS #### Point of Care testing , Anaerobic cultureOrdered By: Molly Rivera on 09-27-2022 Bacteria identified Anaer cx Nom (Unsp spec) [facility] Bacteria identified Aer cx N om (Unsp spec)Ordered By: Molly Rivera on 09-27-2022 Aerobic Culture Enterococcus faecalis [facility] Basic Metabolic Panelon 12-0 Anion gap [Moles/Vol] 10.1 mmol/L Normal 6.0-15.0 [facility] Comment on above: Performed By: #### C MP, CBC, PAB #### [facility] [address] Calcium [Mass/Vol] 8.0 mg/dL Low 8.2-10.2 [facility] Comment on above: Performed By: #### C MP, CBC, PAB #### [facility] [address] Chloride [Moles/Vol] 105 mmol/L Normal 95-114 [facility] Comment on above: Performed By: #### C MP, CBC, PAB #### [facility] [address] [place] [address] CO2 [Moles/Vol] 27.1 mmol/L Normal 22.0-30.0 [facility] Comment on above: Performed By: #### C MP, CBC, PAB #### [address] Creatinine [Mass/Vol] 0.72 mg/dL Normal 0.64-1.27 [facility] Comment on above: Performed By: #### C MP, CBC, PAB #### [address] Creatinine Clr Calc Pharmacy 108.46 [facility] Comment on above: Result Comment: PERF ORMED BY: [place] [address] PATHOLOGIST ERP IMPLEMENTATION CONSULTANT XU TAPIA M.D. Performed By: #### C MP, CBC, PAB #### [address] Estimated GFR ( Marie > 60 [facility] Comment on above: Result Comment: GFR estimated reference range: According to KDOQI guidelines, <60 ml/min/1.73m2 is sufficient to diagnose a patient with chronic kidney disease. Performed By: #### C MP, CBC, PAB #### [address] Estimated GFR (Non- Am > 60 [facility] Comment on above: Performed By: #### C MP, CBC, PAB #### [facility] [address] Glucose [Mass/Vol] 90 mg/dL Normal 70-100 [facility] Comment on above: Result Comment: [facility] Glucose Reference Range is dependent on time and content of last meal. Glucose of more than 200 mg/dL in a nonstressed, ambulatory subject supports the diagnosis of Diabetes Mellitus. ADA recommended reference range Performed By: #### C MP, CBC, PAB #### [facility] [address] Potassium [Moles/Vol] 4.2 mmol/L Normal 3.5-5.1 [facility] Comment on above: Performed By: #### C MP, CBC, PAB #### [facility] [address] Sodium [Moles/Vol] 138 mmol/L Normal 136-146 [facility] Comment on above: Performed By: #### C MP, CBC, PAB #### [facility] [address] Urea nitrogen [Mass/Vol] 9 mg/dL Normal 9-23 [facility] Comment on above: Performed By: #### C MP, CBC, PAB #### [facility] [address] Basophils Auto (Bld) [#/Vol] Ordered By: Gordon Smith on 09-27-2022 Basophils (Bld) [#/Vol] 0.1 10*3/uL 0.0-0.2 [facility] Basophils/100 WBC Auto (Bld) Ordered By: Gordon Smith on 09-27-2022 Basophils/100 WBC (Bld) 1.0 % . F [facility] Complete Blood Count Auto Di ffon 09-27-2022 Basophils (Bld) [#/Vol] 0.1 10*3/uL Normal 0.0-0.2 [facility] Comment on above: Result Comment: PERF ORMED BY: [place] [address] PATHOLOGIST ERP IMPLEMENTATION CONSULTANT XU TAPIA M.D. Performed By: #### C MP, CBC, PAB #### [facility] [address] Basophils/100 WBC (Bld) 1.0 % Normal . [facility] Comment on above: Performed By: #### C MP, CBC, PAB #### [facility] [address] [place] [address] [place] Eosinophils (Bld) [#/Vol] 0.3 10*3/uL Normal 0.0-0.45 [facility] Comment on above: Performed By: #### C MP, CBC, PAB #### [facility] [address] Eosinophils/100 WBC (Bld) 4.8 % Normal . [facility] Comment on above: Performed By: #### C MP, CBC, PAB #### [address] Erythrocyte distribution width (RBC) [Ratio] 15.8 % High 12.0-14.8 [facility] Comment on above: Performed By: #### C MP, CBC, PAB #### [address] Hematocrit (Bld) [Volume fraction] 29.5 % Low 38.8-50.0 [facility] Comment on above: Performed By: #### C MP, CBC, PAB #### [place] [address] [place] Hemoglobin (Bld) [Mass/Vol] 9.5 g/dL Low 13.0-17.0 [facility] Comment on above: Performed By: #### C MP, CBC, PAB #### [facility] [address] [place] [address] [place] Lymphocytes (Bld) [#/Vol] 1.1 10*3/uL Normal 1.00-4.8 [facility] Comment on above: Performed By: #### C MP, CBC, PAB #### [place] [address] [place] Lymphocytes/100 WBC (Bld) 17.0 % Normal . [facility] Comment on above: Performed By: #### C MP, CBC, PAB #### [address] MCH (RBC) [Entitic mass] 30.4 pg Normal 27.5-35.2 [facility] Comment on above: Performed By: #### C MP, CBC, PAB #### [address] MCV (RBC) [Entitic vol] 94.2 fL Normal 83.5-101 F [facility] Comment on above: Performed By: #### C MP, CBC, PAB #### [address] Mean Corpuscular HGB Conc 32.3 g/dL Low 32.5-35.6 [facility] Comment on above: Performed By: #### C MP, CBC, PAB #### [address] Monocytes (Bld) [#/Vol] 0.6 10*3/uL Normal 0.0-0.8 [facility] Comment on above: Performed By: #### C MP, CBC, PAB #### [address] Monocytes/100 WBC (Bld) 9.6 % Normal . [facility] Comment on above: Performed By: #### C MP, CBC, PAB #### [address] Neutrophils (Bld) [#/Vol] 4.3 10*3/uL Normal 1.8-7.7 [facility] Comment on above: Performed By: #### C MP, CBC, PAB #### [address] Neutrophils/100 WBC (Bld) 67.6 % Normal . [facility] Comment on above: Performed By: #### C MP, CBC, PAB #### [address] NRBC% 0.0 /100{WBC} Normal 0-0.5 [facility] Comment on above: Performed By: #### C MP, CBC, PAB #### [facility] [address] Platelet mean volume (Bld) [Entitic vol] 8.2 fL Normal 6.6-10.1 [facility] Comment on above: Performed By: #### C MP, CBC, PAB #### [facility] [address] Platelets (Bld) [#/Vol] 352 10*3/uL Normal 150-450 [facility] Comment on above: Performed By: #### C MP, CBC, PAB #### [address] RBC (Bld) [#/Vol] 3.13 10*6/uL Low 3.90-5.60 [facility] Comment on above: Performed By: #### C MP, CBC, PAB #### [facility] [address] WBC (Bld) [#/Vol] 6.3 10*3/uL Normal 4.1-10.5 [facility] Comment on above: Performed By: #### C MP, CBC, PAB #### [address] Creatinine and Glomerular fi ltration rate.predicted panel (S/P/Bld)Ordered By: Gordon Smith on 09-27-2022 Creatinine [Mass/Vol] 0.72 mg/dL 0.64-1.27 [facility] Eosinophils Auto (Bld) [#/Vo l]Ordered By: Gordon Smith on 09-27-2022 Eosinophils (Bld) [#/Vol] 0.3 10*3/uL 0.0-0.45 [facility] Eosinophils/100 WBC Auto (Bl d)Ordered By: Gordon Smith on 09-27-2022 Eosinophils/100 WBC (Bld) 4.8 % . [facility] Erythrocyte distribution wid th Auto (RBC) [Ratio]Ordered By: Gordon Smith on 09-27-2022 Erythrocyte distribution width (RBC) [Ratio] 15.8 % 12.0-14.8 [facility] Estimated glomerular filtrat ion rate (GFR) non- AmericanOrdered By: Gordon Smith on 09-27-2022 GFR/1.73 sq M.predicted among non-blacks MDRD (S/P/Bld) [Vol rate/Area] > 60 mL/Min [facility] Gram stain for investigation of transfusion reactionOrdered By: Molly Rivera on 09-27-2022 Microscopic observation Gram stain Nom (Unsp spec) [facility] Hematocrit Auto (Bld) [Volum e fraction]Ordered By: Gordon Smith on 09-27-2022 Hematocrit (Bld) [Volume fraction] 29.5 % 38.8-50.0 [facility] Hemoglobin [Mass/volume] in BloodOrdered By: Gordon Smith on 09-27-2022 Hemoglobin (Bld) [Mass/Vol] 9.5 g/dL 13.0-17.0 [facility] Leukocytes [#/volume] correc tyree for nucleated erythrocytes in Blood by Automated counOrdered By: Gordon Smith on 09-27-2022 WBC corrected for nucl RBC Auto (Bld) [#/Vol] 6.3 10*3/uL 4.1-10.5 [facility] Lymphocytes Auto (Bld) [#/Vo l]Ordered By: Gordon Smith on 09-27-2022 Lymphocytes (Bld) [#/Vol] 1.1 10*3/uL 1.00-4.8 [facility] Lymphocytes/100 WBC Auto (Bl d)Ordered By: Gordon Smith on 09-27-2022 Lymphocytes/100 WBC (Bld) 17.0 % . [facility] MCH Auto (RBC) [Entitic mass ]Ordered By: Gordon Smith on 09-27-2022 MCH (RBC) [Entitic mass] 30.4 pg 27.5-35.2 [facility] MCHC Auto (RBC) [Mass/Vol]Or dered By: Gordon Smith on 09-27-2022 MCHC (RBC) [Mass/Vol] 32.3 g/dL 32.5-35.6 [facility] MCV Auto (RBC) [Entitic vol] Ordered By: Gordon Smith on 09-27-2022 MCV (RBC) [Entitic vol] 94.2 fL 83.5-101 F [facility] Monocytes Auto (Bld) [#/Vol] Ordered By: Gordon Smith on 09-27-2022 Monocytes (Bld) [#/Vol] 0.6 10*3/uL 0.0-0.8 [facility] Monocytes/100 WBC Auto (Bld) Ordered By: Gordon Smith on 09-27-2022 Monocytes/100 WBC (Bld) 9.6 % . [facility] Neutrophils Auto (Bld) [#/Vo l]Ordered By: Gordon Smith on 09-27-2022 Neutrophils (Bld) [#/Vol] 4.3 10*3/uL 1.8-7.7 [facility] Neutrophils/100 WBC Auto (Bl d)Ordered By: Gordon Smith on 09-27-2022 Neutrophils/100 WBC (Bld) 67.6 % . [facility] No Panel InformationOrdered By: Gordon Smith on 09-27-2022 Estimated GFR () > 60 mL/Min [facility] Comment on above: GFR estimated refere nce range: According to KDOQI guidelines, <60 ml/min/1.73m2 is sufficient to diagnose a patient with chronic kidney disease. Pharmacy Creatinine Clearance (Chem 108.46 [facility] Nucleated erythrocytes [Pres ence] in Blood by Automated countOrdered By: Gordon Smith on 09-27-2022 Nucleated RBC Auto Ql (Bld) 0.0 /100{WBC} 0-0.5 [facility] Platelet mean volume Auto (B ld) [Entitic vol]Ordered By: Gordon Smith on 09-27-2022 Platelet mean volume (Bld) [Entitic vol] 8.2 fL 6.6-10.1 [facility] Platelets Auto (Bld) [#/Vol] Ordered By: Gordon Smith on 09-27-2022 Platelets (Bld) [#/Vol] 352 10*3/uL 150-450 [facility] RBC Auto (Bld) [#/Vol]Ordere d By: Gordon Smith on 09-27-2022 RBC (Bld) [#/Vol] 3.13 10*6/uL 3.90-5.60 [facility] Serum or plasma anion gap de terminationOrdered By: Gordon Smith on 09-27-2022 Anion gap [Moles/Vol] 10.1 mmol/L 6.0-15.0 [facility] Serum or plasma calcium berhane urement (mass/volume)Ordered By: Gordon Smith on 09-27-2022 Calcium [Mass/Vol] 8.0 mg/dL 8.2-10.2 [facility] Serum or plasma chloride elle surement (moles/volume)Ordered By: Gordon Smith on 09-27-2022 Chloride [Moles/Vol] 105 mmol/L 95-114 [facility] Serum or plasma glucose berhane urement (mass/volume)Ordered By: Gordon Smith on 09-27-2022 Glucose [Mass/Vol] 90 mg/dL 70-100 [facility] Comment on above: ADA recommended refe rence rangeRandom Glucose Reference Range is dependent on time and content of last meal. Glucose of more than 200 mg/dL in a nonstressed, ambulatory subject supports the diagnosis of Diabetes Mellitus. Serum or plasma potassium me asurement (moles/volume)Ordered By: Gordon Smith on 09-27-2022 Potassium [Moles/Vol] 4.2 mmol/L 3.5-5.1 [facility] Serum or plasma sodium measu rement (moles/volume)Ordered By: Gordon Smith on 09-27-2022 Sodium [Moles/Vol] 138 mmol/L 136-146 [facility] Serum or plasma total carbon dioxide measurement (moles/volume)Ordered By: Gordon Smith on 09-27-2022 CO2 [Moles/Vol] 27.1 mmol/L 22.0-30.0 [facility] Serum or plasma urea nitroge n measurement (mass/volume)Ordered By: Gordon Smith on 09-27-2022 Urea nitrogen [Mass/Vol] 9 mg/dL 9-23 [facility] US venous duplex LE BIon US venous duplex LE BI [facility] [address] [address] Ultrasound Report Signed Patient: Indio Collado MR#: [id number] 8 : 1955 Acct:[id number] Age/Sex: 67 / M ADM Date: 09/11/22 Loc: Room: 7G6271-3 Type: ADM IN Attending Dr: Gordon Smith [...] Chirag Hatch MD09/27/2022 2:17 PM Dictation Location: [place] [address] Tech: Mirna Edith Transcribed By: [facility] 09/27/22 141 Dictated By: Chirag Hatch MD 09/27/22 141 Signed By: 09/27/22 141 Normal [facility] WBC Auto (Bld) [#/Vol]Ordere d By: Gordon Smith on 09-27-2022 WBC (Bld) [#/Vol] 6.3 10*3/uL 4.1-10.5 [facility] Complete Blood Count Auto Di ffon 09-26-2022 Basophils (Bld) [#/Vol] 0.1 10*3/uL Normal 0.0-0.2 [facility] Comment on above: Result Comment: PERF ORMED BY: [place] [address] PATHOLOGIST ERP IMPLEMENTATION CONSULTANT XU TAPIA M.D. Performed By: #### G LULS #### Point of Care testing , Basophils/100 WBC (Bld) 2.1 % Normal . [facility] Comment on above: Performed By: #### G LULS #### Point of Care testing , Eosinophils (Bld) [#/Vol] 0.4 10*3/uL Normal 0.0-0.45 [facility] Comment on above: Performed By: #### G HUGOLS #### Point of Care testing , Eosinophils/100 WBC (Bld) 7.6 % Normal . [facility] Comment on above: Performed By: #### G HUGOLS #### Point of Care testing , Erythrocyte distribution width (RBC) [Ratio] 15.9 % High 12.0-14.8 [facility] Comment on above: Performed By: #### G HUGOLS #### Point of Care testing , Hematocrit (Bld) [Volume fraction] 28.6 % Low 38.8-50.0 [facility] Comment on above: Performed By: #### G HUGOLS #### Point of Care testing , Hemoglobin (Bld) [Mass/Vol] 9.4 g/dL Low 13.0-17.0 [facility] Comment on above: Performed By: #### G HUGOLS #### Point of Care testing , Lymphocytes (Bld) [#/Vol] 1.2 10*3/uL Normal 1.00-4.8 [facility] Comment on above: Performed By: #### G HUGOLS #### Point of Care testing , Lymphocytes/100 WBC (Bld) 23.5 % Normal . [facility] Comment on above: Performed By: #### Bethel ARIASLS #### Point of Care testing , MCH (RBC) [Entitic mass] 30.9 pg Normal 27.5-35.2 [facility] Comment on above: Performed By: #### G HUGOLS #### Point of Care testing , MCV (RBC) [Entitic vol] 93.9 fL Normal 83.5-101 [facility] Comment on above: Performed By: #### G HUGOLS #### Point of Care testing , Mean Corpuscular HGB Conc 32.9 g/dL Normal 32.5-35.6 [facility] Comment on above: Performed By: #### Bethel ARIASLS #### Point of Care testing , Monocytes (Bld) [#/Vol] 0.5 10*3/uL Normal 0.0-0.8 [facility] Comment on above: Performed By: #### G USMAN #### Point of Care testing , Monocytes/100 WBC (Bld) 10.0 % Normal . [facility] Comment on above: Performed By: #### G USMAN #### Point of Care testing , Neutrophils (Bld) [#/Vol] 2.8 10*3/uL Normal 1.8-7.7 [facility] Comment on above: Performed By: #### G HUGOLS #### Point of Care testing , Neutrophils/100 WBC (Bld) 56.8 % Normal . [facility] Comment on above: Performed By: #### G HUGOLS #### Point of Care testing , NRBC% 0.2 /100{WBC} Normal 0-0.5 [facility] Comment on above: Performed By: #### G USMAN #### Point of Care testing , Platelet mean volume (Bld) [Entitic vol] 7.9 fL Normal 6.6-10.1 [facility] Comment on above: Performed By: #### Bethel MARY #### Point of Care testing , Platelets (Bld) [#/Vol] 371 10*3/uL Normal 150-450 [facility] Comment on above: Performed By: #### G USMAN #### Point of Care testing , RBC (Bld) [#/Vol] 3.04 10*6/uL Low 3.90-5.60 [facility] Comment on above: Performed By: #### G USMAN #### Point of Care testing , WBC (Bld) [#/Vol] 4.9 10*3/uL Normal 4.1-10.5 [facility] Comment on above: Performed By: #### G USMAN #### Point of Care testing , Complete Blood Count Auto Di ffon 09-23-2022 Basophils (Bld) [#/Vol] 0.1 10*3/uL Normal 0.0-0.2 [facility] Comment on above: Result Comment: PERF ORMED BY: [facility] [place] [address] PATHOLOGIST ERP IMPLEMENTATION CONSULTANT XU TAPIA M.D. Performed By: #### G LULS #### Point of Care testing , Basophils/100 WBC (Bld) 1.3 % Normal . [facility] Comment on above: Performed By: #### G LULS #### Point of Care testing , Eosinophils (Bld) [#/Vol] 0.3 10*3/uL Normal 0.0-0.45 [facility] Comment on above: Performed By: #### G LULS #### Point of Care testing , Eosinophils/100 WBC (Bld) 4.7 % Normal . [facility] Comment on above: Performed By: #### G LULS #### Point of Care testing , Erythrocyte distribution width (RBC) [Ratio] 16.1 % High 12.0-14.8 [facility] Comment on above: Performed By: #### G LULS #### Point of Care testing , Hematocrit (Bld) [Volume fraction] 27.6 % Low 38.8-50.0 [facility] Comment on above: Performed By: #### G LULS #### Point of Care testing , Hemoglobin (Bld) [Mass/Vol] 9.0 g/dL Low 13.0-17.0 [facility] Comment on above: Performed By: #### G LULS #### Point of Care testing , Lymphocytes (Bld) [#/Vol] 1.4 10*3/uL Normal 1.00-4.8 [facility] Comment on above: Performed By: #### G LULS #### Point of Care testing , Lymphocytes/100 WBC (Bld) 20.0 % Normal . [facility] Comment on above: Performed By: #### G LULS #### Point of Care testing , MCH (RBC) [Entitic mass] 31.0 pg Normal 27.5-35.2 [facility] Comment on above: Performed By: #### G LULS #### Point of Care testing , MCV (RBC) [Entitic vol] 95.3 fL Normal 83.5-101 [facility] Comment on above: Performed By: #### G USMAN #### Point of Care testing , Mean Corpuscular HGB Conc 32.5 g/dL Normal 32.5-35.6 [facility] Comment on above: Performed By: #### G HUGOLS #### Point of Care testing , Monocytes (Bld) [#/Vol] 0.6 10*3/uL Normal 0.0-0.8 [facility] Comment on above: Performed By: #### G HUGOLS #### Point of Care testing , Monocytes/100 WBC (Bld) 8.8 % Normal . [facility] Comment on above: Performed By: #### G HUGOLS #### Point of Care testing , Neutrophils (Bld) [#/Vol] 4.6 10*3/uL Normal 1.8-7.7 [facility] Comment on above: Performed By: #### Bethel MARY #### Point of Care testing , Neutrophils/100 WBC (Bld) 65.2 % Normal . [facility] Comment on above: Performed By: #### Bethel MARY #### Point of Care testing , NRBC% 0.0 /100{WBC} Normal 0-0.5 [facility] Comment on above: Performed By: #### G HUGOLS #### Point of Care testing , Platelet mean volume (Bld) [Entitic vol] 8.1 fL Normal 6.6-10.1 [facility] Comment on above: Performed By: #### Bethel ARIASLS #### Point of Care testing , Platelets (Bld) [#/Vol] 362 10*3/uL Normal 150-450 [facility] Comment on above: Performed By: #### G HUGOLS #### Point of Care testing , RBC (Bld) [#/Vol] 2.90 10*6/uL Low 3.90-5.60 [facility] Comment on above: Performed By: #### Bethel MARY #### Point of Care testing , WBC (Bld) [#/Vol] 7.0 10*3/uL Normal 4.1-10.5 [facility] Comment on above: Performed By: #### G LULS #### Point of Care testing , Complete Blood Count Auto Di ffon 09-22-2022 Basophils (Bld) [#/Vol] 0.1 10*3/uL Normal 0.0-0.2 [facility] Comment on above: Result Comment: PERF ORMED BY: [facility] [address] PATHOLOGIST ERP IMPLEMENTATION CONSULTANT XU TAPIA M.D. Performed By: #### G LULS #### Point of Care testing , Basophils/100 WBC (Bld) 1.3 % Normal . [facility] Comment on above: Performed By: #### G HUGOLS #### Point of Care testing , Eosinophils (Bld) [#/Vol] 0.3 10*3/uL Normal 0.0-0.45 [facility] Comment on above: Performed By: #### G LULS #### Point of Care testing , Eosinophils/100 WBC (Bld) 4.4 % Normal . [facility] Comment on above: Performed By: #### G HUGOLS #### Point of Care testing , Erythrocyte distribution width (RBC) [Ratio] 16.1 % High 12.0-14.8 [facility] Comment on above: Performed By: #### G LULS #### Point of Care testing , Hematocrit (Bld) [Volume fraction] 26.6 % Low 38.8-50.0 [facility] Comment on above: Performed By: #### G LULS #### Point of Care testing , Hemoglobin (Bld) [Mass/Vol] 8.7 g/dL Low 13.0-17.0 [facility] Comment on above: Performed By: #### G LULS #### Point of Care testing , Lymphocytes (Bld) [#/Vol] 1.3 10*3/uL Normal 1.00-4.8 [facility] Comment on above: Performed By: #### G LULS #### Point of Care testing , Lymphocytes/100 WBC (Bld) 22.0 % Normal . [facility] Comment on above: Performed By: #### G LULS #### Point of Care testing , MCH (RBC) [Entitic mass] 31.1 pg Normal 27.5-35.2 [facility] Comment on above: Performed By: #### G LULS #### Point of Care testing , MCV (RBC) [Entitic vol] 95.0 fL Normal 83.5-101 [facility] Comment on above: Performed By: #### G LULS #### Point of Care testing , Mean Corpuscular HGB Conc 32.8 g/dL Normal 32.5-35.6 [facility] Comment on above: Performed By: #### G LULS #### Point of Care testing , Monocytes (Bld) [#/Vol] 0.5 10*3/uL Normal 0.0-0.8 [facility] Comment on above: Performed By: #### G LULS #### Point of Care testing , Monocytes/100 WBC (Bld) 8.7 % Normal . [facility] Comment on above: Performed By: #### G LULS #### Point of Care testing , Neutrophils (Bld) [#/Vol] 3.9 10*3/uL Normal 1.8-7.7 [facility] Comment on above: Performed By: #### G LULS #### Point of Care testing , Neutrophils/100 WBC (Bld) 63.6 % Normal . [facility] Comment on above: Performed By: #### G LULS #### Point of Care testing , NRBC% 0.2 /100{WBC} Normal 0-0.5 [facility] Comment on above: Performed By: #### G LULS #### Point of Care testing , Platelet mean volume (Bld) [Entitic vol] 8.5 fL Normal 6.6-10.1 [facility] Comment on above: Performed By: #### G LULS #### Point of Care testing , Platelets (Bld) [#/Vol] 339 10*3/uL Normal 150-450 [facility] Comment on above: Performed By: #### G LULS #### Point of Care testing , RBC (Bld) [#/Vol] 2.80 10*6/uL Low 3.90-5.60 [facility] Comment on above: Performed By: #### G LULS #### Point of Care testing , WBC (Bld) [#/Vol] 6.1 10*3/uL Normal 4.1-10.5 [facility] Comment on above: Performed By: #### G LULS #### Point of Care testing , Basic Metabolic Panelon 11-2 Anion gap [Moles/Vol] 9.4 mmol/L Normal 6.0-15.0 [facility] Comment on above: Performed By: #### C MP, CBC, PAB #### [facility] [address] [place] [address] [place] Calcium [Mass/Vol] 7.9 mg/dL Low 8.2-10.2 [facility] Comment on above: Performed By: #### C MP, CBC, PAB #### [facility] [address] [place] [address] [place] Chloride [Moles/Vol] 104 mmol/L Normal 95-114 [facility] Comment on above: Performed By: #### C MP, CBC, PAB #### [facility] [address] [place] [address] [place] CO2 [Moles/Vol] 29.0 mmol/L Normal 22.0-30.0 [facility] Comment on above: Performed By: #### C MP, CBC, PAB #### [facility] [address] [place] [id number] [place] Creatinine [Mass/Vol] 0.77 mg/dL Normal 0.64-1.27 [facility] Comment on above: Performed By: #### C MP, CBC, PAB #### [facility] [address] [place] [id number] [place] Creatinine Clr Calc Pharmacy 111.64 Normal [facility] Comment on above: Result Comment: PERF ORMED BY: [place] [address] PATHOLOGIST ERP IMPLEMENTATION CONSULTANT XU TAPIA M.D. Performed By: #### C MP, CBC, PAB #### [address] Estimated GFR ( Marie > 60 [facility] Comment on above: Result Comment: GFR estimated reference range: According to KDOQI guidelines, <60 ml/min/1.73m2 is sufficient to diagnose a patient with chronic kidney disease. Performed By: #### C MP, CBC, PAB #### [address] Estimated GFR (Non- Am > 60 [facility] Comment on above: Performed By: #### C MP, CBC, PAB #### [address] Glucose [Mass/Vol] 81 mg/dL Normal 70-100 [facility] Comment on above: Result Comment: Crystal Glucose Reference Range is dependent on time and content of last meal. Glucose of more than 200 mg/dL in a nonstressed, ambulatory subject supports the diagnosis of Diabetes Mellitus. ADA recommended reference range Performed By: #### C MP, CBC, PAB #### [address] Potassium [Moles/Vol] 4.4 mmol/L Normal 3.5-5.1 [facility] Comment on above: Performed By: #### C MP, CBC, PAB #### [place] [address] [place] Sodium [Moles/Vol] 138 mmol/L Normal 136-146 [facility] Comment on above: Performed By: #### C MP, CBC, PAB #### [address] Urea nitrogen [Mass/Vol] 8 mg/dL Low - [facility] Comment on above: Performed By: #### C MP, CBC, PAB #### [place] [address] [place] Complete Blood Count Auto Di ffon 09-21-2022 Basophils (Bld) [#/Vol] 0.1 10*3/uL Normal 0.0-0.2 [facility] Comment on above: Result Comment: PERF ORMED BY: [place] [address] PATHOLOGIST ERP IMPLEMENTATION CONSULTANT XU TAPIA M.D. Performed By: #### C MP, CBC, PAB #### [address] Basophils/100 WBC (Bld) 1.5 % Normal . [facility] Comment on above: Performed By: #### C MP, CBC, PAB #### [address] Eosinophils (Bld) [#/Vol] 0.4 10*3/uL Normal 0.0-0.45 [facility] Comment on above: Performed By: #### C MP, CBC, PAB #### [address] Eosinophils/100 WBC (Bld) 6.3 % Normal . [facility] Comment on above: Performed By: #### C MP, CBC, PAB #### [facility] [address] [place] [address] Erythrocyte distribution width (RBC) [Ratio] 16.0 % High 12.0-14.8 [facility] Comment on above: Performed By: #### C MP, CBC, PAB #### [address] Hematocrit (Bld) [Volume fraction] 25.5 % Low 38.8-50.0 [facility] Comment on above: Performed By: #### C MP, CBC, PAB #### [facility] [address] [place] [address] [place] Hemoglobin (Bld) [Mass/Vol] 8.3 g/dL Low 13.0-17.0 [facility] Comment on above: Performed By: #### C MP, CBC, PAB #### [place] [address] [place] Lymphocytes (Bld) [#/Vol] 1.6 10*3/uL Normal 1.00-4.8 [facility] Comment on above: Performed By: #### C MP, CBC, PAB #### [facility] [address] Lymphocytes/100 WBC (Bld) 24.7 % Normal . [facility] Comment on above: Performed By: #### C MP, CBC, PAB #### [facility] [address] MCH (RBC) [Entitic mass] 31.3 pg Normal 27.5-35.2 [facility] Comment on above: Performed By: #### C MP, CBC, PAB #### [facility] [address] MCV (RBC) [Entitic vol] 95.9 fL Normal 83.5-101 F [facility] Comment on above: Performed By: #### C MP, CBC, PAB #### [address] Mean Corpuscular HGB Conc 32.7 g/dL Normal 32.5-35.6 [facility] Comment on above: Performed By: #### C MP, CBC, PAB #### [address] Monocytes (Bld) [#/Vol] 0.6 10*3/uL Normal 0.0-0.8 [facility] Comment on above: Performed By: #### C MP, CBC, PAB #### [place] [address] [place] Monocytes/100 WBC (Bld) 9.1 % Normal . [facility] Comment on above: Performed By: #### C MP, CBC, PAB #### [address] Neutrophils (Bld) [#/Vol] 3.7 10*3/uL Normal 1.8-7.7 [facility] Comment on above: Performed By: #### C MP, CBC, PAB #### [place] [address] Neutrophils/100 WBC (Bld) 58.4 % Normal . [facility] Comment on above: Performed By: #### C MP, CBC, PAB #### [address] Platelet mean volume (Bld) [Entitic vol] 8.3 fL Normal 6.6-10.1 [facility] Comment on above: Performed By: #### C MP, CBC, PAB #### [address] Platelets (Bld) [#/Vol] 372 10*3/uL Normal 150-450 [facility] Comment on above: Performed By: #### C MP, CBC, PAB #### [address] RBC (Bld) [#/Vol] 2.66 10*6/uL Low 3.90-5.60 [facility] Comment on above: Performed By: #### C MP, CBC, PAB #### [address] WBC (Bld) [#/Vol] 6.4 10*3/uL Normal 4.5-11.0 [facility] Comment on above: Performed By: #### C MP, CBC, PAB #### [address] Complete Blood Count Auto Di ffOrdered By: Gordon Smith on 09-21-2022 Nucleated RBC/100 WBC (Bld) [Ratio] 0.1 % 0-0.5 [facility] Comment on above: Performed By: #### C MP, CBC, PAB #### [address] Complete Blood Count Auto Di ffon 09-20-2022 Basophils (Bld) [#/Vol] 0.1 10*3/uL Normal 0.0-0.2 [facility] Comment on above: Result Comment: PERF ORMED BY: [place] [address] PATHOLOGIST ERP IMPLEMENTATION CONSULTANT XU TAPIA M.D. Performed By: #### C BC #### [facility] [address] [place] [address] [place] Basophils/100 WBC (Bld) 1.2 % Normal . [facility] Comment on above: Performed By: #### C BC #### [facility] [address] [place] [address] [place] Eosinophils (Bld) [#/Vol] 0.3 10*3/uL Normal 0.0-0.45 [facility] Comment on above: Performed By: #### C BC #### [facility] [address] [place] [address] [place] Eosinophils/100 WBC (Bld) 4.6 % Normal . [facility] Comment on above: Performed By: #### C BC #### [facility] [address] Erythrocyte distribution width (RBC) [Ratio] 16.3 % High 12.0-14.8 [facility] Comment on above: Performed By: #### C BC #### [facility] [address] [place] [address] [place] Hematocrit (Bld) [Volume fraction] 26.4 % Low 38.8-50.0 [facility] Comment on above: Performed By: #### C BC #### [facility] [address] Hemoglobin (Bld) [Mass/Vol] 8.7 g/dL Low 13.0-17.0 [facility] Comment on above: Performed By: #### C BC #### [facility] [address] [place] [address] [place] Lymphocytes (Bld) [#/Vol] 1.4 10*3/uL Normal 1.00-4.8 [facility] Comment on above: Performed By: #### C BC #### [facility] [address] [place] [address] [place] Lymphocytes/100 WBC (Bld) 20.0 % Normal . [facility] Comment on above: Performed By: #### C BC #### [facility] [address] MCH (RBC) [Entitic mass] 31.8 pg Normal 27.5-35.2 [facility] Comment on above: Performed By: #### C BC #### [facility] [address] MCV (RBC) [Entitic vol] 96.0 fL Normal 83.5-101 F [facility] Comment on above: Performed By: #### C BC #### [facility] [address] Mean Corpuscular HGB Conc 33.2 g/dL Normal 32.5-35.6 [facility] Comment on above: Performed By: #### C BC #### [address] Monocytes (Bld) [#/Vol] 0.6 10*3/uL Normal 0.0-0.8 [facility] Comment on above: Performed By: #### C BC #### [place] [address] [place] Monocytes/100 WBC (Bld) 8.5 % Normal . [facility] Comment on above: Performed By: #### C BC #### [address] Neutrophils (Bld) [#/Vol] 4.5 10*3/uL Normal 1.8-7.7 [facility] Comment on above: Performed By: #### C BC #### [address] Neutrophils/100 WBC (Bld) 65.7 % Normal . [facility] Comment on above: Performed By: #### C BC #### [place] [address] [place] Nucleated RBC/100 WBC (Bld) [Ratio] 0.0 % Normal 0-0.5 [facility] Comment on above: Performed By: #### C BC #### [place] [address] [place] Platelet mean volume (Bld) [Entitic vol] 8.3 fL Normal 6.6-10.1 [facility] Comment on above: Performed By: #### C BC #### [address] Platelets (Bld) [#/Vol] 373 10*3/uL Normal 150-450 [facility] Comment on above: Performed By: #### C BC #### [address] RBC (Bld) [#/Vol] 2.75 10*6/uL Low 3.90-5.60 [facility] Comment on above: Performed By: #### C BC #### [address] WBC (Bld) [#/Vol] 6.8 10*3/uL Normal 4.5-11.0 [facility] Comment on above: Performed By: #### C BC #### [address] Fecal occult blood detection by immunochemistryOrdered By: Tram Perez on 09-20-2022 Hemoglobin.gastrointesti nal Ql (Stl) [facility] Stool Occult Blood (Guaiac)o n 09-20-2022 Stool Occult Blood (Guaiac) Occult Blood Negative for Occult Blood by Guaiac Methodology ---- Reference range = Negative PERFORMED BY: [place] [address] PATHOLOGIST ERP IMPLEMENTATION CONSULTANT XU TAPIA M.D. [facility] Comment on above: Performed By: #### C MP, CBC, PAB #### [address] US venous duplex LE BIon US venous duplex LE BI [facility] [place] [address] Ultrasound Report Signed Patient: Indio Collado MR#: [id number] 8 : 1955 Acct:[id number] Age/Sex: 67 / M ADM Date: 09/11/22 Loc: 5T Room: 8J6600-4 Type: ADM IN Attending Dr: Gordon Smith [...] Fer Mayfield M.D.09/20/2022 2:43 PM Dictation Location: [place] [address] Tech: Malgorzata Torres Transcribed By: YENI 09/20/22 144 Dictated By: Fer Mayfield MD 09/20/22 144 Signed By: 09/20/22 1443 [facility] Activated partial thrombopla stin time (aPTT) in platelet poor plasma by coagulation aOrdered By: Tram Perez on 09-19-2022 aPTT Coag (PPP) [Time] 33.8 s 25.1-36.5 [facility] Basic Metabolic Panelon 08-25 Anion gap [Moles/Vol] 7.3 mmol/L Normal 6.0-15.0 [facility] Comment on above: Performed By: #### C MP, CBC, PAB #### [facility] [address] [place] [address] [place] Calcium [Mass/Vol] 7.8 mg/dL Low 8.2-10.2 [facility] Comment on above: Performed By: #### C MP, CBC, PAB #### [facility] [address] [place] [address] [place] Chloride [Moles/Vol] 103 mmol/L Normal 95-114 [facility] Comment on above: Performed By: #### C MP, CBC, PAB #### [facility] [address] CO2 [Moles/Vol] 29.1 mmol/L Normal 22.0-30.0 [facility] Comment on above: Performed By: #### C MP, CBC, PAB #### [address] Creatinine [Mass/Vol] 0.86 mg/dL Normal 0.64-1.27 [facility] Comment on above: Performed By: #### C MP, CBC, PAB #### [place] [address] [place] Creatinine Clr Calc Pharmacy 103.85 [facility] Comment on above: Result Comment: PERF ORMED BY: [place] [address] PATHOLOGIST ERP IMPLEMENTATION CONSULTANT XU TAPIA M.D. Performed By: #### C MP, CBC, PAB #### [facility] [address] [place] [address] Estimated GFR ( Marie > 60 [facility] Comment on above: Result Comment: GFR estimated reference range: According to KDOQI guidelines, <60 ml/min/1.73m2 is sufficient to diagnose a patient with chronic kidney disease. Performed By: #### C MP, CBC, PAB #### [facility] [address] [place] [address] [place] Estimated GFR (Non- Am > 60 [facility] Comment on above: Performed By: #### C MP, CBC, PAB #### [facility] [address] Glucose [Mass/Vol] 90 mg/dL Normal 70-100 [facility] Comment on above: Result Comment: [facility] Glucose Reference Range is dependent on time and content of last meal. Glucose of more than 200 mg/dL in a nonstressed, ambulatory subject supports the diagnosis of Diabetes Mellitus. ADA recommended reference range Performed By: #### C MP, CBC, PAB #### [facility] [address] Potassium [Moles/Vol] 4.4 mmol/L Normal 3.5-5.1 [facility] Comment on above: Performed By: #### C MP, CBC, PAB #### [facility] [address] Sodium [Moles/Vol] 135 mmol/L Low 136-146 [facility] Comment on above: Performed By: #### C MP, CBC, PAB #### [facility] [address] Urea nitrogen [Mass/Vol] 10 mg/dL Normal 9-23 [facility] Comment on above: Performed By: #### C MP, CBC, PAB #### [facility] [address] [place] [address] CT abdomen pelvis w conon CT abdomen pelvis w con [facility] Main [place] [address] [place] [address] CT Scan Report Signed Patient: Indio Collado MR#: [id number] 8 : 1955 Acct:[id number] Age/Sex: 67 / M ADM Date: 09/11/22 Loc: Room: 8L4343-7 Type: ADM IN Attending Dr: Gordon Smith [...] Juhi Morales M.D.09/19/2022 3:46 PM Dictation Location: [place] [address] Transcribed By: [facility] 09/19/22 1546 Dictated By: Juhi Morales MD 09/19/22 1534 Signed By: 09/19/22 1546 [facility] Coagulation Profileon 2021 aPTT Coag (Bld) [Time] 33.8 s Normal 25.1-36.5 [facility] Comment on above: Result Comment: PERF ORMED BY: [place] [address] PATHOLOGIST ERP IMPLEMENTATION CONSULTANT UX TAPIA M.D. Performed By: #### C MP, CBC, PAB #### [facility] [address] [place] [address] INR Coag (PPP) [Relative time] 1.2 {INR} Normal [facility] Comment on above: Result Comment: INR [...] By: #### C MP, CBC, PAB #### [address] PT Coag (PPP) [Time] 13.1 s High 9.0-12.9 [facility] Comment on above: Performed By: #### C KRISSY, AYLIN, PAB #### [address] Laboratory - CoagulationOrde red By: Tram Perez on 09-19-2022 PT Coag (PPP) [Time] 13.1 s 9.0-12.9 [facility] Platelet poor plasma interna tional normalized ratio (INR) by coagulation assay (relatOrdered By: Tram Perez on 09-19-2022 INR Coag (PPP) [Relative time] 1.2 {INR} [facility] Comment on above: INR Therapeutic Rang [...] valves: 3 - 4.5 Basic Metabolic Panelon 11-2 Anion gap [Moles/Vol] 8.9 mmol/L Normal 6.0-15.0 [facility] Comment on above: Performed By: #### C BC, BMP #### [facility] [address] Calcium [Mass/Vol] 7.9 mg/dL Low 8.2-10.2 [facility] Comment on above: Performed By: #### C BC, BMP #### [facility] [address] Chloride [Moles/Vol] 103 mmol/L Normal 95-114 [facility] Comment on above: Performed By: #### C BC, BMP #### [facility] [address] CO2 [Moles/Vol] 28.4 mmol/L Normal 22.0-30.0 [facility] Comment on above: Performed By: #### C BC, BMP #### [address] Creatinine [Mass/Vol] 0.78 mg/dL Normal 0.64-1.27 [facility] Comment on above: Performed By: #### C BC, BMP #### [address] Creatinine Clr Calc Pharmacy 102.55 Normal [facility] Comment on above: Result Comment: PERF ORMED BY: [place] [address] PATHOLOGIST ERP IMPLEMENTATION CONSULTANT XU TAPIA M.D. Performed By: #### C BC, BMP #### [address] Estimated GFR ( Marie > 60 Normal [facility] Comment on above: Result Comment: GFR estimated reference range: According to KDOQI guidelines, <60 ml/min/1.73m2 is sufficient to diagnose a patient with chronic kidney disease. Performed By: #### C BC, BMP #### [address] Estimated GFR (Non- Am > 60 Normal [facility] Comment on above: Performed By: #### C BC, BMP #### [facility] [address] Glucose [Mass/Vol] 95 mg/dL Normal 70-100 [facility] Comment on above: Result Comment: [place] Glucose Reference Range is dependent on time and content of last meal. Glucose of more than 200 mg/dL in a nonstressed, ambulatory subject supports the diagnosis of Diabetes Mellitus. ADA recommended reference range Performed By: #### C BC, BMP #### [facility] [address] Potassium [Moles/Vol] 4.3 mmol/L Normal 3.5-5.1 [facility] Comment on above: Performed By: #### C BC, BMP #### [facility] [address] Sodium [Moles/Vol] 136 mmol/L Normal 136-146 [facility] Comment on above: Performed By: #### C BC, BMP #### [facility] [address] Urea nitrogen [Mass/Vol] 9 mg/dL Normal 9-23 [facility] Comment on above: Performed By: #### C BC, BMP #### [facility] [address] Complete Blood Count Auto Di ffon 09-18-2022 Basophils (Bld) [#/Vol] 0.1 10*3/uL Normal 0.0-0.2 [facility] Comment on above: Result Comment: PERF ORMED BY: [place] [address] PATHOLOGIST ERP IMPLEMENTATION CONSULTANT XU TAPIA M.D. Performed By: #### C BC, BMP #### [facility] [address] [place] [address] [place] Basophils/100 WBC (Bld) 1.0 % Normal . [facility] Comment on above: Performed By: #### C BC, BMP #### [facility] [address] [place] [address] [place] Eosinophils (Bld) [#/Vol] 0.5 10*3/uL High 0.0-0.45 [facility] Comment on above: Performed By: #### C BC, BMP #### [facility] [address] Eosinophils/100 WBC (Bld) 6.0 % Normal . [facility] Comment on above: Performed By: #### C BC, BMP #### [address] Erythrocyte distribution width (RBC) [Ratio] 16.2 % High 12.0-14.8 [facility] Comment on above: Performed By: #### C BC, BMP #### [address] Hematocrit (Bld) [Volume fraction] 24.7 % Low 38.8-50.0 [facility] Comment on above: Performed By: #### C BC, BMP #### [address] Hemoglobin (Bld) [Mass/Vol] 8.1 g/dL Low 13.0-17.0 [facility] Comment on above: Performed By: #### C BC, BMP #### [address] Lymphocytes (Bld) [#/Vol] 1.5 10*3/uL Normal 1.00-4.8 [facility] Comment on above: Performed By: #### C BC, BMP #### [place] [address] [place] Lymphocytes/100 WBC (Bld) 18.5 % Normal . [facility] Comment on above: Performed By: #### C BC, BMP #### [address] MCH (RBC) [Entitic mass] 31.6 pg Normal 27.5-35.2 [facility] Comment on above: Performed By: #### C BC, BMP #### [address] [place] [address] [place] MCV (RBC) [Entitic vol] 96.7 fL Normal 83.5-101 [facility] Comment on above: Performed By: #### C BC, BMP #### [facility] [address] Mean Corpuscular HGB Conc 32.7 g/dL Normal 32.5-35.6 [facility] Comment on above: Performed By: #### C BC, BMP #### [facility] [address] [place] [address] [place] Monocytes (Bld) [#/Vol] 0.7 10*3/uL Normal 0.0-0.8 [facility] Comment on above: Performed By: #### C BC, BMP #### [facility] [address] Monocytes/100 WBC (Bld) 8.7 % Normal . [facility] Comment on above: Performed By: #### C BC, BMP #### [facility] [address] [place] [address] [place] Neutrophils (Bld) [#/Vol] 5.3 10*3/uL Normal 1.8-7.7 [facility] Comment on above: Performed By: #### C BC, BMP #### [address] Neutrophils/100 WBC (Bld) 65.8 % Normal . [facility] Comment on above: Performed By: #### C BC, BMP #### [facility] [address] [place] [address] [place] Nucleated RBC/100 WBC (Bld) [Ratio] 0.1 % Normal 0-0.5 [facility] Comment on above: Performed By: #### C BC, BMP #### [facility] [address] Platelet mean volume (Bld) [Entitic vol] 8.1 fL Normal 6.6-10.1 [facility] Comment on above: Performed By: #### C BC, BMP #### [address] [address] [place] Platelets (Bld) [#/Vol] 358 10*3/uL Normal 150-450 [facility] Comment on above: Performed By: #### C MONI, BMP #### [facility] [address] RBC (Bld) [#/Vol] 2.55 10*6/uL Low 3.90-5.60 [facility] Comment on above: Performed By: #### C MONI, BMP #### [facility] [address] WBC (Bld) [#/Vol] 8.1 10*3/uL Normal 4.5-11.0 [facility] Comment on above: Performed By: #### C MONI, BMP #### [address] Glucose Glucometer (BldC) [M ass/Vol]Ordered By: Gordon Smith on 09-14-2022 Glucose [Mass/Vol] 97 mg/dL [facility] Comment on above: Random Glucose Refer ence Range is dependent on time and content of last meal. Glucose of more than 200 mg/dL in a nonstressed, ambulatory subject supports the diagnosis of Diabetes Mellitus. Glucose Poct Glucometerson 1 11-14-2021 Commemt1 Glu2: Cleaned Meter [facility] Comment on above: Performed By: #### G LULS #### Point of Care testing , Commemt2 WILL NOTIFY DR/STERLING [facility] Comment on above: Result Comment: PERF ORMED BY: [address] [place] [address] PATHOLOGIST ERP IMPLEMENTATION CONSULTANT XU TAPIA M.D. Performed By: #### G LULS #### Point of Care testing , Glucose [Mass/Vol] 97 mg/dL [facility] Comment on above: Result Comment: [place] Glucose Reference Range is dependent on time and content of last meal. Glucose of more than 200 mg/dL in a nonstressed, ambulatory subject supports the diagnosis of Diabetes Mellitus. Performed By: #### G LULS #### Point of Care testing , Commemt1 Glu2: Cleaned Meter Normal [facility] Comment on above: Result Comment: PERF ORMED BY: [place] [address] PATHOLOGIST ERP IMPLEMENTATION CONSULTANT XU TAPIA M.D. Performed By: #### C MP, CBC, PAB #### [facility] [address] [place] [address] Glucose [Mass/Vol] 99 mg/dL Normal [facility] Comment on above: Result Comment: [facility] Glucose Reference Range is dependent on time and content of last meal. Glucose of more than 200 mg/dL in a nonstressed, ambulatory subject supports the diagnosis of Diabetes Mellitus. Performed By: #### C MP, CBC, PAB #### [address] No Panel InformationOrdered By: Gordon Smith on 09-14-2022 Bedside Glucose #[address]/rn [facility] Bedside Glucose Comment Glu2: cleaned meter [facility] Basic Metabolic Panelon 08-25 Anion gap [Moles/Vol] 9.3 mmol/L Normal 6.0-15.0 [facility] Comment on above: Performed By: #### G LULS #### Point of Care testing , Calcium [Mass/Vol] 7.9 mg/dL Low 8.2-10.2 [facility] Comment on above: Performed By: #### G LULS #### Point of Care testing , Chloride [Moles/Vol] 104 mmol/L Normal 95-114 [facility] Comment on above: Performed By: #### G LULS #### Point of Care testing , CO2 [Moles/Vol] 26.6 mmol/L Normal 22.0-30.0 [facility] Comment on above: Performed By: #### G LULS #### Point of Care testing , Creatinine [Mass/Vol] 0.84 mg/dL Normal 0.64-1.27 [facility] Comment on above: Performed By: #### G LULS #### Point of Care testing , Creatinine Clr Calc Pharmacy 97.66 [facility] Comment on above: Result Comment: PERF ORMED BY: [facility] [place] [address] PATHOLOGIST ERP IMPLEMENTATION CONSULTANT UX TAPIA M.D. Performed By: #### G LULS #### Point of Care testing , Estimated GFR ( Marie > 60 [facility] Comment on above: Result Comment: GFR estimated reference range: According to KDOQI guidelines, <60 ml/min/1.73m2 is sufficient to diagnose a patient with chronic kidney disease. Performed By: #### G LULS #### Point of Care testing , Estimated GFR (Non- Am > 60 [facility] Comment on above: Performed By: #### G LULS #### Point of Care testing , Glucose [Mass/Vol] 90 mg/dL Normal 70-100 [facility] Comment on above: Result Comment: [place] Glucose Reference Range is dependent on time and content of last meal. Glucose of more than 200 mg/dL in a nonstressed, ambulatory subject supports the diagnosis of Diabetes Mellitus. ADA recommended reference range Performed By: #### G LULS #### Point of Care testing , Potassium [Moles/Vol] 3.9 mmol/L Normal 3.5-5.1 [facility] Comment on above: Performed By: #### G LULS #### Point of Care testing , Sodium [Moles/Vol] 136 mmol/L Normal 136-146 [facility] Comment on above: Performed By: #### G LULS #### Point of Care testing , Urea nitrogen [Mass/Vol] 11 mg/dL Normal 9-23 [facility] Comment on above: Performed By: #### G LULS #### Point of Care testing , Complete Blood Count Auto Di ffon 09-13-2022 Basophils (Bld) [#/Vol] 0.1 10*3/uL Normal 0.0-0.2 [facility] Comment on above: Result Comment: PERF ORMED BY: [facility] [address] [place] [address] PATHOLOGIST ERP IMPLEMENTATION CONSULTANT XU TAPIA M.D. Performed By: #### G HUGOLS #### Point of Care testing , Basophils/100 WBC (Bld) 1.1 % Normal . [facility] Comment on above: Performed By: #### G HUGOLS #### Point of Care testing , Eosinophils (Bld) [#/Vol] 0.4 10*3/uL Normal 0.0-0.45 [facility] Comment on above: Performed By: #### G LULS #### Point of Care testing , Eosinophils/100 WBC (Bld) 5.5 % Normal . [facility] Comment on above: Performed By: #### G HUGOLS #### Point of Care testing , Erythrocyte distribution width (RBC) [Ratio] 15.9 % High 12.0-14.8 [facility] Comment on above: Performed By: #### G HUGOLS #### Point of Care testing , Hematocrit (Bld) [Volume fraction] 26.2 % Low 38.8-50.0 [facility] Comment on above: Performed By: #### G LULS #### Point of Care testing , Hemoglobin (Bld) [Mass/Vol] 8.6 g/dL Low 13.0-17.0 [facility] Comment on above: Performed By: #### G LULS #### Point of Care testing , Lymphocytes (Bld) [#/Vol] 1.7 10*3/uL Normal 1.00-4.8 [facility] Comment on above: Performed By: #### G LULS #### Point of Care testing , Lymphocytes/100 WBC (Bld) 21.1 % Normal . [facility] Comment on above: Performed By: #### G LULS #### Point of Care testing , MCH (RBC) [Entitic mass] 31.4 pg Normal 27.5-35.2 [facility] Comment on above: Performed By: #### G LULS #### Point of Care testing , MCV (RBC) [Entitic vol] 95.6 fL Normal 83.5-101 F [facility] Comment on above: Performed By: #### G USMAN #### Point of Care testing , Mean Corpuscular HGB Conc 32.9 g/dL Normal 32.5-35.6 [facility] Comment on above: Performed By: #### G HUGOLS #### Point of Care testing , Monocytes (Bld) [#/Vol] 1.0 10*3/uL High 0.0-0.8 [facility] Comment on above: Performed By: #### G HUGOLS #### Point of Care testing , Monocytes/100 WBC (Bld) 12.0 % Normal . [facility] Comment on above: Performed By: #### G USMAN #### Point of Care testing , Neutrophils (Bld) [#/Vol] 4.9 10*3/uL Normal 1.8-7.7 [facility] Comment on above: Performed By: #### G USMAN #### Point of Care testing , Neutrophils/100 WBC (Bld) 60.3 % Normal . [facility] Comment on above: Performed By: #### Bethel MARY #### Point of Care testing , Nucleated RBC/100 WBC (Bld) [Ratio] 0.0 % Normal 0-0.5 [facility] Comment on above: Performed By: #### Bethel MARY #### Point of Care testing , Platelet mean volume (Bld) [Entitic vol] 8.4 fL Normal 6.6-10.1 [facility] Comment on above: Performed By: #### Bethel MARY #### Point of Care testing , Platelets (Bld) [#/Vol] 321 10*3/uL Normal 150-450 [facility] Comment on above: Performed By: #### G USMAN #### Point of Care testing , RBC (Bld) [#/Vol] 2.74 10*6/uL Low 3.90-5.60 [facility] Comment on above: Performed By: #### G USMAN #### Point of Care testing , WBC (Bld) [#/Vol] 8.1 10*3/uL Normal 4.5-11.0 [facility] Comment on above: Performed By: #### G LULS #### Point of Care testing , Glucose Poct Glucometerson 1 11-13-2021 Commemt1 Normal [facility] Comment on above: Result Comment: Glu2 : WILL NOTIFY DR/RN Performed By: #### G LULS #### Point of Care testing , Commemt2 Cleaned Meter Normal [facility] Comment on above: Result Comment: PERF ORMED BY: [facility] [address] [place] [address] PATHOLOGIST ERP IMPLEMENTATION CONSULTANT XU TAPIA M.D. Performed By: #### G LULS #### Point of Care testing , Glucose [Mass/Vol] 88 mg/dL Normal [facility] Comment on above: Result Comment: [place] om Glucose Reference Range is dependent on time and content of last meal. Glucose of more than 200 mg/dL in a nonstressed, ambulatory subject supports the diagnosis of Diabetes Mellitus. Performed By: #### G LULS #### Point of Care testing , Glucose [Mass/Vol] 99 mg/dL Normal [facility] Comment on above: Result Comment: [place] om Glucose Reference Range is dependent on time and content of last meal. Glucose of more than 200 mg/dL in a nonstressed, ambulatory subject supports the diagnosis of Diabetes Mellitus. PERFORMED BY: [address] [place] [address] PATHOLOGIST ERP IMPLEMENTATION CONSULTANT XU TAPIA M.D. Performed By: #### G LULS #### Point of Care testing , Albumin [Mass/volume] in Ser um or PlasmaOrdered By: Gordon Smith on 09-12-2022 Albumin [Mass/Vol] 1.7 g/dL 3.2-5.5 [facility] Complete Blood Count Auto Di ffon 09-12-2022 Basophils (Bld) [#/Vol] 0.1 10*3/uL Normal 0.0-0.2 [facility] Comment on above: Result Comment: PERF ORMED BY: [facility] [address] [place] [address] PATHOLOGIST ERP IMPLEMENTATION CONSULTANT XU TAPIA M.D. Performed By: #### C MP, CBC, PAB #### [facility] [address] [place] [address] [place] Basophils/100 WBC (Bld) 1.2 % Normal . [facility] Comment on above: Performed By: #### C MP, CBC, PAB #### [facility] [address] [place] [address] [place] Eosinophils (Bld) [#/Vol] 0.3 10*3/uL Normal 0.0-0.45 [facility] Comment on above: Performed By: #### C MP, CBC, PAB #### [facility] [address] [place] [address] [place] Eosinophils/100 WBC (Bld) 4.6 % Normal . [facility] Comment on above: Performed By: #### C MP, CBC, PAB #### [facility] [address] Erythrocyte distribution width (RBC) [Ratio] 15.9 % High 12.0-14.8 [facility] Comment on above: Performed By: #### C MP, CBC, PAB #### [facility] [address] Hematocrit (Bld) [Volume fraction] 23.6 % Low 38.8-50.0 [facility] Comment on above: Performed By: #### C MP, CBC, PAB #### [facility] [address] [place] [address] [place] Hemoglobin (Bld) [Mass/Vol] 7.8 g/dL Low 13.0-17.0 [facility] Comment on above: Performed By: #### C MP, CBC, PAB #### [facility] [address] [place] [address] [place] Lymphocytes (Bld) [#/Vol] 1.7 10*3/uL Normal 1.00-4.8 [facility] Comment on above: Performed By: #### C MP, CBC, PAB #### [facility] [address] [place] [address] [place] Lymphocytes/100 WBC (Bld) 25.1 % Normal . [facility] Comment on above: Performed By: #### C MP, CBC, PAB #### [facility] [address] MCH (RBC) [Entitic mass] 31.3 pg Normal 27.5-35.2 [facility] Comment on above: Performed By: #### C MP, CBC, PAB #### [facility] [address] MCV (RBC) [Entitic vol] 94.6 fL Normal 83.5-101 F [facility] Comment on above: Performed By: #### C MP, CBC, PAB #### [address] Mean Corpuscular HGB Conc 33.1 g/dL Normal 32.5-35.6 [facility] Comment on above: Performed By: #### C MP, CBC, PAB #### [address] Monocytes (Bld) [#/Vol] 0.8 10*3/uL Normal 0.0-0.8 [facility] Comment on above: Performed By: #### C MP, CBC, PAB #### [address] Monocytes/100 WBC (Bld) 12.0 % Normal . [facility] Comment on above: Performed By: #### C MP, CBC, PAB #### [address] Neutrophils (Bld) [#/Vol] 3.8 10*3/uL Normal 1.8-7.7 [facility] Comment on above: Performed By: #### C MP, CBC, PAB #### [address] Neutrophils/100 WBC (Bld) 57.1 % Normal . [facility] Comment on above: Performed By: #### C MP, CBC, PAB #### [address] Nucleated RBC/100 WBC (Bld) [Ratio] 0.0 % Normal 0-0.5 [facility] Comment on above: Performed By: #### C MP, CBC, PAB #### [address] Platelet mean volume (Bld) [Entitic vol] 8.6 fL Normal 6.6-10.1 [facility] Comment on above: Performed By: #### C MP, CBC, PAB #### [address] Platelets (Bld) [#/Vol] 280 10*3/uL Normal 150-450 [facility] Comment on above: Performed By: #### C MP, CBC, PAB #### [address] RBC (Bld) [#/Vol] 2.50 10*6/uL Low 3.90-5.60 [facility] Comment on above: Performed By: #### C MP, CBC, PAB #### [address] WBC (Bld) [#/Vol] 6.7 10*3/uL Normal 4.5-11.0 [facility] Comment on above: Performed By: #### C MP, CBC, PAB #### [address] Comprehensive Metabolic Pane carl 09-12-2022 Albumin [Mass/Vol] 1.7 g/dL Low 3.2-5.5 [facility] Comment on above: Performed By: #### C MP, CBC, PAB #### [address] Albumin/Globulin [Mass ratio] 0.8 {ratio} Normal [facility] Comment on above: Performed By: #### C MP, CBC, PAB #### [address] ALP [Catalytic activity/Vol] 58 U/L Normal 32-92 [facility] Comment on above: Performed By: #### C MP, CBC, PAB #### [facility] [address] ALT [Catalytic activity/Vol] 15 U/L Normal 10-60 [facility] Comment on above: Performed By: #### C MP, CBC, PAB #### [facility] [address] Anion gap [Moles/Vol] 6.7 mmol/L Normal 6.0-15.0 [facility] Comment on above: Performed By: #### C MP, CBC, PAB #### [facility] [address] AST [Catalytic activity/Vol] 13 U/L Normal 10-42 [facility] Comment on above: Performed By: #### C MP, CBC, PAB #### [facility] [address] Bilirubin [Mass/Vol] 1.5 mg/dL High 0.3-1.2 [facility] Comment on above: Result Comment: Samp les from patients who have taken Naproxen have shown spurious elevation in Total Bilirubin levels. A metabolite of Naproxen, O-desmethylnaproxen, has been shown to interfere with the Jendrassik-Grof method for measuring Total Bilirubin. Performed By: #### C MP, CBC, PAB #### [facility] [address] Calcium [Mass/Vol] 7.6 mg/dL Low 8.2-10.2 [facility] Comment on above: Performed By: #### C MP, CBC, PAB #### [facility] [address] [place] [id number] [place] Chloride [Moles/Vol] 105 mmol/L Normal 95-114 [facility] Comment on above: Performed By: #### C MP, CBC, PAB #### [facility] [address] CO2 [Moles/Vol] 30.2 mmol/L High 22.0-30.0 [facility] Comment on above: Performed By: #### C MP, CBC, PAB #### [address] Creatinine [Mass/Vol] 0.90 mg/dL Normal 0.64-1.27 [facility] Comment on above: Performed By: #### C MP, CBC, PAB #### [address] Creatinine Clr Calc Pharmacy 91.15 [facility] Comment on above: Performed By: #### C MP, CBC, PAB #### [address] Estimated GFR ( Marie > 60 [facility] Comment on above: Result Comment: GFR estimated reference range: According to KDOQI guidelines, <60 ml/min/1.73m2 is sufficient to diagnose a patient with chronic kidney disease. Performed By: #### C MP, CBC, PAB #### [address] Estimated GFR (Non- Am > 60 [facility] Comment on above: Performed By: #### C MP, CBC, PAB #### [address] Globulin (S) [Mass/Vol] 2.2 g/dL Normal [facility] Comment on above: Performed By: #### C MP, CBC, PAB #### [address] Glucose [Mass/Vol] 84 mg/dL Normal 70-100 [facility] Comment on above: Result Comment: Crystal Glucose Reference Range is dependent on time and content of last meal. Glucose of more than 200 mg/dL in a nonstressed, ambulatory subject supports the diagnosis of Diabetes Mellitus. ADA recommended reference range Performed By: #### C MP, CBC, PAB #### [address] Potassium [Moles/Vol] 3.9 mmol/L Normal 3.5-5.1 [facility] Comment on above: Performed By: #### C MP, CBC, PAB #### [address] Protein [Mass/Vol] 3.9 g/dL Low 6.1-7.9 [facility] Comment on above: Performed By: #### C MP, CBC, PAB #### [facility] [address] [place] [address] [place] Sodium [Moles/Vol] 138 mmol/L Normal 136-146 [facility] Comment on above: Performed By: #### C MP, CBC, PAB #### [facility] [address] [place] [address] [place] Urea nitrogen [Mass/Vol] 15 mg/dL Normal 9-23 [facility] Comment on above: Performed By: #### C MP, CBC, PAB #### [facility] [address] Globulin Calc (S) [Mass/Vol] Ordered By: Gordon Smith on 09-12-2022 Globulin (S) [Mass/Vol] 2.2 g/dL F [facility] Glucose Poct Glucometerson 1 11-12-2021 Commemt1 Glu2: Cleaned Meter Normal [facility] Comment on above: Result Comment: PERF ORMED BY: [facility] [address] [place] [address] PATHOLOGIST ERP IMPLEMENTATION CONSULTANT XU TAPIA M.D. Performed By: #### G LULS #### Point of Care testing , Glucose [Mass/Vol] 135 mg/dL Normal [facility] Comment on above: Result Comment: Crystal Glucose Reference Range is dependent on time and content of last meal. Glucose of more than 200 mg/dL in a nonstressed, ambulatory subject supports the diagnosis of Diabetes Mellitus. Performed By: #### G LULS #### Point of Care testing , Glucose [Mass/Vol] 96 mg/dL Normal [facility] Comment on above: Result Comment: Crystal Glucose Reference Range is dependent on time and content of last meal. Glucose of more than 200 mg/dL in a nonstressed, ambulatory subject supports the diagnosis of Diabetes Mellitus. PERFORMED BY: [facility] [address] [place] [address] PATHOLOGIST ERP IMPLEMENTATION CONSULTANT XU TAPIA M.D. Performed By: #### C MP, CBC, PAB #### [facility] [address] [place] [id number] [place] Prealbuminon 09-12-2022 Prealbumin [Mass/Vol] 9.3 mg/dL Low 18.0-38.0 [facility] Comment on above: Result Comment: PERF ORMED BY: [facility] [address] [facility] [place] [address] PATHOLOGIST ERP IMPLEMENTATION CONSULTANT XU TAPIA M.D. Performed By: #### C MP, CBC, PAB #### [facility] [address] [place] [id number] [facility] Protein [Mass/volume] in Ser um or PlasmaOrdered By: Gordon Smith on 09-12-2022 Protein [Mass/Vol] 3.9 g/dL 6.1-7.9 [facility] Serum or plasma alanine lomax otransferase measurement without P-5'-P (enzymatic activiOrdered By: Gordon Smith on 09-12-2022 ALT No additional P-5'-P [Catalytic activity/Vol] 15 U/L 10-60 [facility] Serum or plasma albumin/glob ulin mass ratioOrdered By: Gordon Smith on 09-12-2022 Albumin/Globulin [Mass ratio] 0.8 {ratio} [facility] Serum or plasma alkaline alicia sphatase measurement (enzymatic activity/volume)Ordered By: Gordon Smith on 09-12-2022 ALP [Catalytic activity/Vol] 58 U/L 32-92 [facility] Serum or plasma aspartate am inotransferase measurement (enzymatic activity/volume)Ordered By: Gordon Smith on 09-12-2022 AST [Catalytic activity/Vol] 13 U/L 10-42 [facility] Serum or plasma prealbumin m easurement (mass/volume)Ordered By: Gordon Simth on 09-12-2022 Prealbumin [Mass/Vol] 9.3 mg/dL 18.0-38.0 [facility] Serum or plasma total biliru bin measurement (mass/volume)Ordered By: Gordon Smith on 09-12-2022 Bilirubin [Mass/Vol] 1.5 mg/dL 0.3-1.2 [facility] Comment on above: Samples from patient s who have taken Naproxen have shown spurious elevation in Total Bilirubin levels. A metabolite of Naproxen, O-desmethylnaproxen, has been shown to interfere with the Valeri-Brennan method for measuring Total Bilirubin. Glucose Poct Glucometerson 1 11-11-2021 Glucose [Mass/Vol] 90 mg/dL Normal [facility] Comment on above: Result Comment: Crystal Glucose Reference Range is dependent on time and content of last meal. Glucose of more than 200 mg/dL in a nonstressed, ambulatory subject supports the diagnosis of Diabetes Mellitus. PERFORMED BY: [facility] [address] [place] [address] PATHOLOGIST ERP IMPLEMENTATION CONSULTANT XU TAPIA M.D. Performed By: #### G LULS #### Point of Care testing , Basic Metab w/rfx MGon 09-10 Anion gap [Moles/Vol] 5 mmol/L Low 9-17 [facility] Comment on above: Performed By: #### I OCAL, CDP, MG, LACTIC, ALICIA, BNP, BMP #### [facility] [address] [place] [address] Active Directory Administrator: Bret Vazquez MD Performed By: #### E CHRISTY LOPEZ #### [facility] [employer] [address] [place] [address] Active Directory Administrator: Bret Vazquez MD Calcium [Mass/Vol] 7.8 mg/dL Low 8.6-10.4 [facility] Comment on above: Performed By: #### I OCAL, CDP, MG, LACTIC, ALICIA, BNP, BMP #### [facility] [employer] [address] [place] [address] Active Directory Administrator: Bret Vazquez MD Performed By: #### E RTKLARISSA HIGGINSEG #### [employer] [address] [place] [address] Active Directory Administrator: Bret Vazquez MD Chloride [Moles/Vol] 105 mmol/L Normal 98-107 [facility] Comment on above: Performed By: #### I OCAL, CDP, MG, LACTIC, ALICIA, BNP, BMP #### [address] [address] Active Directory Administrator: Bret Vazquez MD Performed By: #### E RTPFKLARISSAEG #### [address] [address] Active Directory Administrator: Bret Vazquez MD CO2 [Moles/Vol] 24 mmol/L Normal 20-31 [facility] Comment on above: Performed By: #### I OCAL, CDP, MG, LACTIC, ALICIA, BNP, BMP #### [address] [address] Active Directory Administrator: Bret Vazquez MD Performed By: #### E RTKLARISSA HIGGINSEG #### [address] [address] Active Directory Administrator: Bret Vazquez MD Creatinine [Mass/Vol] 0.77 mg/dL Normal 0.70-1.20 [facility] Comment on above: Performed By: #### I OCAL, CDP, MG, LACTIC, ALICIA, BNP, BMP #### [address] [address] Active Directory Administrator: Bret Vazquez MD Performed By: #### E RTKLARISSA HIGGINSEG #### [address] [address] Active Directory Administrator: Bret Vazquez MD GFR/1.73 sq M.predicted among non-blacks MDRD (S/P/Bld) [Vol rate/Area] mL/min/{1.73_m2} Normal >60 [facility] Comment on above: Result Comment: Effective Jul [...] CDP, MG, LACTIC, ALICIA, BNP, BMP #### [address] [address] Active Directory Administrator: Bret Vazquez MD Performed By: #### E RTCHRISTY HIGGINS #### [address] [address] Active Directory Administrator: Bret Vazquez MD Glucose [Mass/Vol] 85 mg/dL Normal 70-99 [facility] Comment on above: Performed By: #### I OCAL, CDP, MG, LACTIC, ALICIA, BNP, BMP #### [address] [address] Active Directory Administrator: Bret Vazquez MD Performed By: #### E CHRISTY LOPEZ #### [address] [address] Active Directory Administrator: Bret Vazquez MD Potassium [Moles/Vol] 4.4 mmol/L Normal 3.7-5.3 [facility] Comment on above: Performed By: #### I OCAL, CDP, MG, LACTIC, ALICIA, BNP, BMP #### [address] [address] Active Directory Administrator: Bret Vazquez MD Performed By: #### E RTCHRISTY HIGGINS #### [address] [address] Active Directory Administrator: Bret Vazquez MD Sodium [Moles/Vol] 134 mmol/L Low 135-144 [facility] Comment on above: Performed By: #### I OCAL, CDP, MG, LACTIC, ALICIA, BNP, BMP #### [address] [address] Active Directory Administrator: Bret Vazquez MD Performed By: #### Isidro RTCHRISTY HIGGINS #### [address] [address] Active Directory Administrator: Bret Vazquez MD Urea nitrogen [Mass/Vol] 17 mg/dL Normal 8-23 [facility] Comment on above: Performed By: #### I OCAL, CDP, MG, LACTIC, ALICIA, BNP, BMP #### [address] [address] Active Directory Administrator: Bret Vazquez MD Performed By: #### Isidro RTCHRISTY HIGGINS #### [address] [address] Active Directory Administrator: Bret Vazquez MD CBC with Diffon 09-10-2022 Abs. Basophil 0.06 k/uL Normal 0.00-0.20 [facility] Comment on above: Performed By: #### I OCAL, CDP, MG, LACTIC, ALICIA, BNP, BMP #### [address] [address] Active Directory Administrator: Bret Vazquez MD Performed By: #### CHRISTY MOJICA #### [address] [address] Active Directory Administrator: Bret Vazquez MD Abs.Imm.Granulocyte 0.04 k/uL Normal 0.00-0.30 [facility] Comment on above: Performed By: #### I OCAL, CDP, MG, LACTIC, ALICIA, BNP, BMP #### [address] [address] Active Directory Administrator: Bret Vazquez MD Performed By: #### E RTCHRISTY HIGGINS #### [facility] [employer] [address] [place] [address] Active Directory Administrator: Bret Vazquez MD Abs.Neutrophil (Seg) 3.45 k/uL Normal 1.50-8.10 [facility] Comment on above: Performed By: #### I OCAL, CDP, MG, LACTIC, ALICIA, BNP, BMP #### [address] [address] Active Directory Administrator: Bret Vazquez MD Performed By: #### E RTPCHRISTY Golden #### [address] [address] Active Directory Administrator: Bret Vazquez MD Basophils/100 WBC (Bld) 1 % Normal 0-2 [facility] Comment on above: Performed By: #### I OCAL, CDP, MG, LACTIC, ALICIA, BNP, BMP #### [address] [address] Active Directory Administrator: Bret Vazquez MD Performed By: #### E RTCHRISTY HIGGINS #### [address] [address] Active Directory Administrator: Bret Vazquez MD Eosinophils (Bld) [#/Vol] 0.36 10*3/uL Normal 0.00-0.44 [facility] Comment on above: Performed By: #### I OCAL, CDP, MG, LACTIC, ALICIA, BNP, BMP #### [address] [address] Active Directory Administrator: Bret Vazquez MD Performed By: #### E RTCHRISTY HIGGINS #### [address] [address] Active Directory Administrator: Bret Vazquez MD Eosinophils/100 WBC (Bld) 6 % High 1-4 [facility] Comment on above: Performed By: #### I OCAL, CDP, MG, LACTIC, ALICIA, BNP, BMP #### [address] [address] Active Directory Administrator: Bret Vazquez MD Performed By: #### E RTKLARISSA HIGGINSEG #### [address] [address] Active Directory Administrator: Bret Vazquez MD Erythrocyte distribution width (RBC) [Ratio] 15.8 % High 11.8-14.4 [facility] Comment on above: Performed By: #### I OCAL, CDP, MG, LACTIC, ALICIA, BNP, BMP #### [facility] [employer] [address] [place] [address] Active Directory Administrator: Bret Vazquez MD Performed By: #### E RTKLARISSA HIGGINSEG #### [address] [address] Active Directory Administrator: Bret Vazquez MD Hematocrit (Bld) [Volume fraction] 25.2 % Low 40.7-50.3 [facility] Comment on above: Performed By: #### I OCAL, CDP, MG, LACTIC, ALICIA, BNP, BMP #### [facility] [employer] [address] [place] [address] Active Directory Administrator: Bret Vazquez MD Performed By: #### E RTCHRISTY HIGGINS #### [facility] [employer] [address] [place] [address] Active Directory Administrator: Bret Vazquez MD Hemoglobin (Bld) [Mass/Vol] 7.6 g/dL Low 13.0-17.0 [facility] Comment on above: Performed By: #### I OCAL, CDP, MG, LACTIC, ALICIA, BNP, BMP #### [facility] [employer] [address] [place] [address] Active Directory Administrator: Bret Vazquez MD Performed By: #### E RTKLARISSA HIGGINSEG #### [facility] [employer] [address] [place] [address] Active Directory Administrator: Bret Vazquez MD Immature granulocytes/100 WBC (Bld) 1 % High 0 [facility] Comment on above: Performed By: #### I OCAL, CDP, MG, LACTIC, ALICIA, BNP, BMP #### [address] [address] Active Directory Administrator: Bret Vazquez MD Performed By: #### E RTPCHRISTY Golden #### [address] [address] Active Directory Administrator: Bret Vazquez MD Lymphocytes (Bld) [#/Vol] 2.01 10*3/uL Normal 1.10-3.70 [facility] Comment on above: Performed By: #### I OCAL, CDP, MG, LACTIC, ALICIA, BNP, BMP #### [address] [address] Active Directory Administrator: Bret Vazquez MD Performed By: #### Isidro RTCHRISTY HIGGINS #### [address] [address] Active Directory Administrator: Bret Vazquez MD Lymphocytes/100 WBC (Bld) 31 % Normal 24-43 [facility] Comment on above: Performed By: #### I OCAL, CDP, MG, LACTIC, ALICIA, BNP, BMP #### [address] [address] Active Directory Administrator: Bret Vazquez MD Performed By: #### E RTCHRISTY HIGGINS #### [address] [address] Active Directory Administrator: Bret Vazquez MD MCH (RBC) [Entitic mass] 31.7 pg Normal 25.2-33.5 [facility] Comment on above: Performed By: #### I OCAL, CDP, MG, LACTIC, ALICIA, BNP, BMP #### [address] [address] Active Directory Administrator: Bret Vazquez MD Performed By: #### E RTPFCHRISTY #### [address] [address] Active Directory Administrator: Bret Vazquez MD MCHC (RBC) [Mass/Vol] 30.2 g/dL Normal 28.4-34.8 [facility] Comment on above: Performed By: #### I OCAL, CDP, MG, LACTIC, ALICIA, BNP, BMP #### [address] [address] Active Directory Administrator: Bret Vazquez MD Performed By: #### E RTKLARISSA HIGGINSEG #### [address] [address] Active Directory Administrator: Bret Vazquez MD MCV (RBC) [Entitic vol] 105.0 fL High 82.6-102.9 M [facility] Comment on above: Performed By: #### I OCAL, CDP, MG, LACTIC, ALICIA, BNP, BMP #### [address] [address] Active Directory Administrator: Bret Vazquez MD Performed By: #### Isidro RTCHRISTY HIGGINS #### [address] [address] Active Directory Administrator: Bret Vazquez MD Monocytes (Bld) [#/Vol] 0.62 10*3/uL Normal 0.10-1.20 [facility] Comment on above: Performed By: #### I OCAL, CDP, MG, LACTIC, ALICIA, BNP, BMP #### [address] [address] Active Directory Administrator: Bret Vazquez MD Performed By: #### E RTKLARISSA HIGGINSEG #### [address] [address] Active Directory Administrator: Bret Vazquez MD Monocytes/100 WBC (Bld) 10 % Normal 3-12 M [facility] Comment on above: Performed By: #### I OCAL, CDP, MG, LACTIC, ALICIA, BNP, BMP #### [address] [address] Active Directory Administrator: Bret Vazquez MD Performed By: #### E RTPF GHLTEG #### [address] [address] Active Directory Administrator: Bret Vazquez MD Neutrophil (Seg) 53 % Normal 36-65 [facility] Comment on above: Performed By: #### I OCAL, CDP, MG, LACTIC, ALICIA, BNP, BMP #### [address] [address] Active Directory Administrator: Bret Vazquez MD Performed By: #### E RTPF GHLTEG #### [place] [address] Active Directory Administrator: Bret Vazquez MD NRBC Automated 0.0 per 100 WBC Normal 0.0 [facility] Comment on above: Performed By: #### I OCAL, CDP, MG, LACTIC, ALICIA, BNP, BMP #### [address] [address] Active Directory Administrator: Bret Vazquez MD Performed By: #### E RTPFRANDOLPHLTEG #### [address] [address] Active Directory Administrator: Bret Vazquez MD Platelet mean volume (Bld) [Entitic vol] 10.3 fL Normal 8.1-13.5 [facility] Comment on above: Performed By: #### I OCAL, CDP, MG, LACTIC, ALICIA, BNP, BMP #### [address] [address] Active Directory Administrator: Bret Vazquez MD Performed By: #### E RTPF GHLTEG #### [address] [address] Active Directory Administrator: Bret Vazquez MD Platelets (Bld) [#/Vol] 245 10*3/uL Normal 138-453 [facility] Comment on above: Performed By: #### I OCAL, CDP, MG, LACTIC, ALICIA, BNP, BMP #### [address] [address] Active Directory Administrator: Bret Vazquez MD Performed By: #### E RTPCHRISTY Gloden #### [address] [address] Active Directory Administrator: Bret Vazquez MD RBC (Bld) [#/Vol] 2.40 10*6/uL Low 4.21-5.77 [facility] Comment on above: Performed By: #### I OCAL, CDP, MG, LACTIC, ALICIA, BNP, BMP #### [address] [address] Active Directory Administrator: Bret Vazquez MD Performed By: #### CHRISTY MOJICA #### [address] [address] Active Directory Administrator: Bret Vazquez MD RBC morphology finding Nom (Bld) ANISOCYTOSIS PRESENT Normal [facility] Comment on above: Result Comment: MACR OCYTOSIS PRESENT Performed By: #### I OCAL, CDP, MG, LACTIC, ALICIA, BNP, BMP #### [address] [address] Active Directory Administrator: Bret Vazquez MD Performed By: #### E RTCHRISTY HIGGINS #### [address] [address] Active Directory Administrator: Bret Vazquez MD WBC (Bld) [#/Vol] 6.5 10*3/uL Normal 3.5-11.3 [facility] Comment on above: Performed By: #### I OCAL, CDP, MG, LACTIC, ALICIA, BNP, BMP #### [address] [address] Active Directory Administrator: Bret Vazquez MD Performed By: #### E RTPF, GHLTEG #### [address] [address] Active Directory Administrator: Bret Vazquez MD Basic Metab w/rfx MGon 09-09 Anion gap [Moles/Vol] 6 mmol/L Low 9-17 [facility] Comment on above: Performed By: #### B MPX, CDP #### [address] [address] Active Directory Administrator: Bret Vazquez MD Performed By: #### E RTPF, CK, ECENZ, VD25 #### [address] [address] Active Directory Administrator: Bret Vazquez MD Calcium [Mass/Vol] 7.5 mg/dL Low 8.6-10.4 [facility] Comment on above: Performed By: #### B MPX, CDP #### [address] [address] Active Directory Administrator: Bret Vazquez MD Performed By: #### E RTPF, CK, ECENZ, VD25 #### [address] [address] Active Directory Administrator: Bret Vazquez MD Chloride [Moles/Vol] 109 mmol/L High 98-107 [facility] Comment on above: Performed By: #### B MPX, CDP #### [address] [address] Active Directory Administrator: Bret Vazquez MD Performed By: #### E RTPF, CK, ECENZ, VD25 #### [facility] [employer] [address] [place] [address] Active Directory Administrator: Bret Vazquez MD CO2 [Moles/Vol] 25 mmol/L Normal 20-31 [facility] Comment on above: Performed By: #### B MPX, CDP #### [facility] [employer] [address] [place] [address] Active Directory Administrator: Bret Vazquez MD Performed By: #### E RTPF, CK, ECENZ, VD25 #### [facility] [employer] [address] [place] [address] Active Directory Administrator: Bret Vazquez MD Creatinine [Mass/Vol] 0.63 mg/dL Low 0.70-1.20 [facility] Comment on above: Performed By: #### B MPX, CDP #### [address] [address] Active Directory Administrator: Bret Vazquez MD Performed By: #### E RTPF, CK, ECENZ, VD25 #### [address] [address] Active Directory Administrator: Bret Vazquez MD GFR/1.73 sq M.predicted among non-blacks MDRD (S/P/Bld) [Vol rate/Area] mL/min/{1.73_m2} Normal >60 [facility] Comment on above: Result Comment: Effective Jul [...] Performed By: #### B MPX, CDP #### [address] [address] Active Directory Administrator: Bret Vazquez MD Performed By: #### E RTPF, CK, ECENZ, VD25 #### [facility] [employer] [address] [place] [address] Active Directory Administrator: Bret Vazquez MD Glucose [Mass/Vol] 88 mg/dL Normal 70-99 [facility] Comment on above: Performed By: #### B MPX, CDP #### [facility] [address] [place] [address] Active Directory Administrator: Bret Vazquez MD Performed By: #### E RTPF, CK, ECENZ, VD25 #### [facility] [address] [place] [address] Active Directory Administrator: Bret Vazquez MD Potassium [Moles/Vol] 4.3 mmol/L Normal 3.7-5.3 [facility] Comment on above: Performed By: #### B MPX, CDP #### [facility] [employer] [address] [place] [address] Active Directory Administrator: Bret Vazquez MD Performed By: #### E RTPF, CK, ECENZ, VD25 #### [facility] [employer] [address] [place] [address] Active Directory Administrator: Bret Vazquez MD Sodium [Moles/Vol] 140 mmol/L Normal 135-144 [facility] Comment on above: Performed By: #### B MPX, CDP #### [facility] [employer] [address] [place] [address] Active Directory Administrator: Bret Vazquez MD Performed By: #### E RTPF, CK, ECENZ, VD25 #### [facility] [employer] [address] [place] [address] Active Directory Administrator: Bret Vazquez MD Urea nitrogen [Mass/Vol] 16 mg/dL Normal 8-23 [facility] Comment on above: Performed By: #### B MPX, CDP #### [facility] [address] [place] [address] Active Directory Administrator: Bret Vazquez MD Performed By: #### E RTPF, CK, ECENZ, VD25 #### [address] [address] Active Directory Administrator: Bret Vazquez MD CBC with Diffon 09-09-2022 Abs. Basophil 0.09 k/uL Normal 0.00-0.20 [facility] Comment on above: Performed By: #### B MPX, CDP #### [place] [address] Active Directory Administrator: Bret Vazquez MD Performed By: #### E RTPF, CK, ECENZ, VD25 #### [place] [address] Active Directory Administrator: Bret Vazquez MD Abs.Imm.Granulocyte 0.03 k/uL Normal 0.00-0.30 [facility] Comment on above: Performed By: #### B MPX, CDP #### [place] [address] Active Directory Administrator: Bret Vazquez MD Performed By: #### E RTPF, CK, ECENZ, VD25 #### [place] [address] Active Directory Administrator: Bret Vazquez MD Abs.Neutrophil (Seg) 4.61 k/uL Normal 1.50-8.10 [facility] Comment on above: Performed By: #### B MPX, CDP #### [place] [address] Active Directory Administrator: Bret Vazquez MD Performed By: #### E RTPF, CK, ECENZ, VD25 #### [address] [address] Active Directory Administrator: Bret Vazquez MD Basophils/100 WBC (Bld) 1 % Normal 0-2 M [facility] Comment on above: Performed By: #### B MPX, CDP #### [facility] [employer] [address] [place] [address] Active Directory Administrator: Bret Vazquez MD Performed By: #### E RTPF, CK, ECENZ, VD25 #### [facility] [employer] [address] [place] [address] Active Directory Administrator: Bret Vazquez MD Eosinophils (Bld) [#/Vol] 0.40 10*3/uL Normal 0.00-0.44 [facility] Comment on above: Performed By: #### B MPX, CDP #### [address] [address] Active Directory Administrator: Bret Vazquez MD Performed By: #### E RTPF, CK, ECENZ, VD25 #### [address] [address] Active Directory Administrator: Bret Vazquez MD Eosinophils/100 WBC (Bld) 5 % High 1-4 [facility] Comment on above: Performed By: #### B MPX, CDP #### [address] [address] Active Directory Administrator: Bret Vazquez MD Performed By: #### E RTPF, CK, ECENZ, VD25 #### [facility] [employer] [address] [place] [address] Active Directory Administrator: Bret Vazquez MD Erythrocyte distribution width (RBC) [Ratio] 16.2 % High 11.8-14.4 [facility] Comment on above: Performed By: #### B MPX, CDP #### [facility] [employer] [address] [place] [address] Active Directory Administrator: Bret Vazquez MD Performed By: #### E RTPF, CK, ECENZ, VD25 #### [facility] [employer] [address] [place] [address] Active Directory Administrator: Bret Vazquez MD Hematocrit (Bld) [Volume fraction] 22.3 % Low 40.7-50.3 [facility] Comment on above: Performed By: #### B MPX, CDP #### [address] [address] Active Directory Administrator: Bret Vazquez MD Performed By: #### E RTPF, CK, ECENZ, VD25 #### [facility] [employer] [address] [place] [address] Active Directory Administrator: Bret Vazquez MD Hemoglobin (Bld) [Mass/Vol] 7.5 g/dL Low 13.0-17.0 [facility] Comment on above: Performed By: #### B MPX, CDP #### [facility] [employer] [address] [place] [address] Active Directory Administrator: Bret Vazquez MD Performed By: #### E RTPF, CK, ECENZ, VD25 #### [facility] [employer] [address] [place] [address] Active Directory Administrator: Bret Vazquez MD Immature granulocytes/100 WBC (Bld) 0 % Normal 0 [facility] Comment on above: Performed By: #### B MPX, CDP #### [facility] [employer] [address] [place] [address] Active Directory Administrator: Bret Vazquez MD Performed By: #### E RTPF, CK, ECENZ, VD25 #### [facility] [employer] [address] [place] [address] Active Directory Administrator: Bret Vazquez MD Lymphocytes (Bld) [#/Vol] 1.88 10*3/uL Normal 1.10-3.70 [facility] Comment on above: Performed By: #### B MPX, CDP #### [facility] [employer] [address] [place] [address] Active Directory Administrator: Bret Vazquez MD Performed By: #### E RTPF, CK, ECENZ, VD25 #### [address] [address] Active Directory Administrator: Bret Vazquez MD Lymphocytes/100 WBC (Bld) 24 % Normal 24-43 [facility] Comment on above: Performed By: #### B MPX, CDP #### [address] [address] Active Directory Administrator: Bret Vazquez MD Performed By: #### E RTPF, CK, ECENZ, VD25 #### [address] [address] Active Directory Administrator: Bret Vazquez MD MCH (RBC) [Entitic mass] 31.8 pg Normal 25.2-33.5 [facility] Comment on above: Performed By: #### B MPX, CDP #### [place] [address] Active Directory Administrator: Bret Vazquez MD Performed By: #### E RTPF, CK, ECENZ, VD25 #### [place] [address] Active Directory Administrator: Bret Vazquez MD MCHC (RBC) [Mass/Vol] 33.6 g/dL Normal 28.4-34.8 [facility] Comment on above: Performed By: #### B MPX, CDP #### [place] [address] Active Directory Administrator: Bret Vazquez MD Performed By: #### E RTPF, CK, ECENZ, VD25 #### [address] [address] Active Directory Administrator: Bret Vazquez MD MCV (RBC) [Entitic vol] 94.5 fL Normal 82.6-102.9 M [facility] Comment on above: Performed By: #### B MPX, CDP #### [address] [address] Active Directory Administrator: Bret Vazquez MD Performed By: #### E RTPF, CK, ECENZ, VD25 #### [address] [address] Active Directory Administrator: Bret Vazquez MD Monocytes (Bld) [#/Vol] 0.84 10*3/uL Normal 0.10-1.20 [facility] Comment on above: Performed By: #### B MPX, CDP #### [address] [address] Active Directory Administrator: Bret Vazquez MD Performed By: #### E RTPF, CK, ECENZ, VD25 #### [address] [address] Active Directory Administrator: Bret Vazquez MD Monocytes/100 WBC (Bld) 11 % Normal 3-12 M [facility] Comment on above: Performed By: #### B MPX, CDP #### [address] [address] Active Directory Administrator: Bret Vazquez MD Performed By: #### E RTPF, CK, ECENZ, VD25 #### [address] [address] Active Directory Administrator: Bret Vazquez MD Neutrophil (Seg) 59 % Normal 36-65 [facility] Comment on above: Performed By: #### B MPX, CDP #### [address] [address] Active Directory Administrator: Bret Vazquez MD Performed By: #### E RTPF, CK, ECENZ, VD25 #### [address] [address] Active Directory Administrator: Bret Vazquez MD NRBC Automated 0.0 per 100 WBC Normal 0.0 [facility] Comment on above: Performed By: #### B MPX, CDP #### [address] [address] Active Directory Administrator: Bret Vazquez MD Performed By: #### E RTPF, CK, ECENZ, VD25 #### [address] [address] Active Directory Administrator: Bret Vazquez MD Platelet mean volume (Bld) [Entitic vol] 10.5 fL Normal 8.1-13.5 [facility] Comment on above: Performed By: #### B MPX, CDP #### [address] [address] Active Directory Administrator: Bret Vazquez MD Performed By: #### E RTPF, CK, ECENZ, VD25 #### [address] [address] Active Directory Administrator: Bret Vazquez MD Platelets (Bld) [#/Vol] 185 10*3/uL Normal 138-453 [facility] Comment on above: Performed By: #### B MPX, CDP #### [address] [address] Active Directory Administrator: Bret Vazquez MD Performed By: #### E RTPF, CK, ECENZ, VD25 #### [address] [address] Active Directory Administrator: Bret Vazquez MD RBC (Bld) [#/Vol] 2.36 10*6/uL Low 4.21-5.77 [facility] Comment on above: Performed By: #### B MPX, CDP #### [address] [address] Active Directory Administrator: Bret Vazquez MD Performed By: #### E RTPF, CK, ECENZ, VD25 #### [address] [address] Active Directory Administrator: Bret Vazquez MD RBC morphology finding Nom (Bld) ANISOCYTOSIS PRESENT Normal [facility] Comment on above: Performed By: #### B MPX, CDP #### [address] [address] Active Directory Administrator: Bret Vazquez MD Performed By: #### E RTPF, CK, ECENZ, VD25 #### [address] [address] Active Directory Administrator: Bret Vazquez MD WBC (Bld) [#/Vol] 7.9 10*3/uL Normal 3.5-11.3 [facility] Comment on above: Performed By: #### B MPX, CDP #### [address] [address] Active Directory Administrator: Bret Vazquez MD Performed By: #### E RTPF, CK, ECENZ, VD25 #### [address] [address] Active Directory Administrator: Bret Vazquez MD Basic Metab w/rfx MGon 09-08 Anion gap [Moles/Vol] 4 mmol/L Low 9-17 [facility] Comment on above: Performed By: #### I OCAL, CDP, MG, LACTIC, ALICIA, BNP, BMP #### [address] [address] Active Directory Administrator: Bret Vazquez MD Performed By: #### E RTPF, CK, ECENZ, VD25 #### [address] [address] Active Directory Administrator: Bret Vazquez MD Calcium [Mass/Vol] 7.5 mg/dL Low 8.6-10.4 [facility] Comment on above: Performed By: #### I OCAL, CDP, MG, LACTIC, ALICIA, BNP, BMP #### [address] [address] Active Directory Administrator: Bret Vazquez MD Performed By: #### E RTPF, CK, ECENZ, VD25 #### [address] [address] Active Directory Administrator: Bret Vazquez MD Chloride [Moles/Vol] 105 mmol/L Normal 98-107 [facility] Comment on above: Performed By: #### I OCAL, CDP, MG, LACTIC, ALICIA, BNP, BMP #### [address] [address] Active Directory Administrator: Bret Vazquez MD Performed By: #### E RTPF, CK, ECENZ, VD25 #### [address] [address] Active Directory Administrator: Bret Vazquez MD CO2 [Moles/Vol] 26 mmol/L Normal 20-31 [facility] Comment on above: Performed By: #### I OCAL, CDP, MG, LACTIC, ALICIA, BNP, BMP #### [address] [address] Active Directory Administrator: Bret Vazquez MD Performed By: #### E RTPF, CK, ECENZ, VD25 #### [address] [address] Active Directory Administrator: Bret Vazquez MD Creatinine [Mass/Vol] 0.80 mg/dL Normal 0.70-1.20 [facility] Comment on above: Performed By: #### I OCAL, CDP, MG, LACTIC, ALICIA, BNP, BMP #### [address] [address] Active Directory Administrator: Bret Vazquez MD Performed By: #### E RTPF, CK, ECENZ, VD25 #### [address] [address] Active Directory Administrator: Bret Vazquez MD GFR/1.73 sq M.predicted among non-blacks MDRD (S/P/Bld) [Vol rate/Area] mL/min/{1.73_m2} Normal >60 [facility] Comment on above: Result Comment: Effective Jul [...] CDP, MG, LACTIC, ALICIA, BNP, BMP #### [address] [address] Active Directory Administrator: Bret Vazquez MD Performed By: #### E RTPF, CK, ECENZ, VD25 #### [address] [address] Active Directory Administrator: Bret Vazquez MD Glucose [Mass/Vol] 93 mg/dL Normal 70-99 [facility] Comment on above: Performed By: #### I OCAL, CDP, MG, LACTIC, ALICIA, BNP, BMP #### [address] [address] Active Directory Administrator: Bret Vazquez MD Performed By: #### E RTPF, CK, ECENZ, VD25 #### [facility] [employer] [address] [place] [address] Active Directory Administrator: Bret Vazquez MD Potassium [Moles/Vol] 4.5 mmol/L Normal 3.7-5.3 [facility] Comment on above: Performed By: #### I OCAL, CDP, MG, LACTIC, ALICIA, BNP, BMP #### [address] [address] Active Directory Administrator: Bret Vazquez MD Performed By: #### E RTPF, CK, ECENZ, VD25 #### [address] [address] Active Directory Administrator: Bret Vazquez MD Sodium [Moles/Vol] 135 mmol/L Normal 135-144 [facility] Comment on above: Performed By: #### I OCAL, CDP, MG, LACTIC, ALICIA, BNP, BMP #### [address] [address] Active Directory Administrator: Bret Vazquez MD Performed By: #### E RTPF, CK, ECENZ, VD25 #### [address] [address] Active Directory Administrator: Bret Vazquez MD Urea nitrogen [Mass/Vol] 16 mg/dL Normal 8-23 [facility] Comment on above: Performed By: #### I OCAL, CDP, MG, LACTIC, ALICIA, BNP, BMP #### [address] [address] Active Directory Administrator: Bret Vazquez MD Performed By: #### E RTPF, CK, ECENZ, VD25 #### [address] [address] Active Directory Administrator: Bret Vazquez MD CBC with Diffon 09-08-2022 Abs. Basophil 0.04 k/uL Normal 0.00-0.20 [facility] Comment on above: Performed By: #### I OCAL, CDP, MG, LACTIC, ALICIA, BNP, BMP #### [address] [address] Active Directory Administrator: Bret Vazquez MD Performed By: #### E RTPF, CK, ECENZ, VD25 #### [address] [address] Active Directory Administrator: Bret Vazquez MD Abs.Imm.Granulocyte 0.03 k/uL Normal 0.00-0.30 [facility] Comment on above: Performed By: #### I OCAL, CDP, MG, LACTIC, ALICIA, BNP, BMP #### [address] [address] Active Directory Administrator: Bret Vazquez MD Performed By: #### E RTPF, CK, ECENZ, VD25 #### [place] [address] Active Directory Administrator: Bret Vazquez MD Abs.Neutrophil (Seg) 4.96 k/uL Normal 1.50-8.10 [facility] Comment on above: Performed By: #### I OCAL, CDP, MG, LACTIC, ALICIA, BNP, BMP #### [place] [address] Active Directory Administrator: Bret Vazquez MD Performed By: #### E RTPF, CK, ECENZ, VD25 #### [place] [address] Active Directory Administrator: Bret Vazquez MD Basophils/100 WBC (Bld) 1 % Normal 0-2 M [facility] Comment on above: Performed By: #### I OCAL, CDP, MG, LACTIC, ALICIA, BNP, BMP #### [place] [address] Active Directory Administrator: Bret Vazquez MD Performed By: #### E RTPF, CK, ECENZ, VD25 #### [place] [address] Active Directory Administrator: Bret Vazquez MD Eosinophils (Bld) [#/Vol] 0.21 10*3/uL Normal 0.00-0.44 [facility] Comment on above: Performed By: #### I OCAL, CDP, MG, LACTIC, ALICIA, BNP, BMP #### [address] [address] Active Directory Administrator: Bret Vazquez MD Performed By: #### E RTPF, CK, ECENZ, VD25 #### [address] [address] Active Directory Administrator: Bret Vazquez MD Eosinophils/100 WBC (Bld) 3 % Normal 1-4 [facility] Comment on above: Performed By: #### I OCAL, CDP, MG, LACTIC, ALICIA, BNP, BMP #### [facility] [employer] [address] [place] [address] Active Directory Administrator: Bret Vazquez MD Performed By: #### E RTPF, CK, ECENZ, VD25 #### [address] [address] Active Directory Administrator: Bret Vazquez MD Erythrocyte distribution width (RBC) [Ratio] 16.4 % High 11.8-14.4 [facility] Comment on above: Performed By: #### I OCAL, CDP, MG, LACTIC, ALICIA, BNP, BMP #### [address] [address] Active Directory Administrator: Bret Vazquez MD Performed By: #### E RTPF, CK, ECENZ, VD25 #### [address] [address] Active Directory Administrator: Bret Vazquez MD Hematocrit (Bld) [Volume fraction] 22.9 % Low 40.7-50.3 [facility] Comment on above: Performed By: #### I OCAL, CDP, MG, LACTIC, ALICIA, BNP, BMP #### [facility] [employer] [address] [place] [address] Active Directory Administrator: Bret Vazquez MD Performed By: #### E RTPF, CK, ECENZ, VD25 #### [facility] [employer] [address] [place] [address] Active Directory Administrator: Bret Vazquez MD Hemoglobin (Bld) [Mass/Vol] 7.5 g/dL Low 13.0-17.0 [facility] Comment on above: Performed By: #### I OCAL, CDP, MG, LACTIC, ALICIA, BNP, BMP #### [facility] [employer] [address] [place] [address] Active Directory Administrator: Bret Vazquez MD Performed By: #### E RTPF, CK, ECENZ, VD25 #### [facility] [employer] [address] [place] [address] Active Directory Administrator: Bret Vazquez MD Immature granulocytes/100 WBC (Bld) 0 % Normal 0 [facility] Comment on above: Performed By: #### I OCAL, CDP, MG, LACTIC, ALICIA, BNP, BMP #### [address] [address] Active Directory Administrator: Bret Vazquez MD Performed By: #### E RTPF, CK, ECENZ, VD25 #### [address] [address] Active Directory Administrator: Bret Vazquez MD Lymphocytes (Bld) [#/Vol] 1.39 10*3/uL Normal 1.10-3.70 [facility] Comment on above: Performed By: #### I OCAL, CDP, MG, LACTIC, ALICIA, BNP, BMP #### [facility] [employer] [address] [place] [address] Active Directory Administrator: Bret Vazquez MD Performed By: #### E RTPF, CK, ECENZ, VD25 #### [facility] [employer] [address] [place] [address] Active Directory Administrator: Bret Vaqzuez MD Lymphocytes/100 WBC (Bld) 19 % Low 24-43 [facility] Comment on above: Performed By: #### I OCAL, CDP, MG, LACTIC, ALICIA, BNP, BMP #### [address] [address] Active Directory Administrator: Bret Vazquez MD Performed By: #### E RTPF, CK, ECENZ, VD25 #### [address] [address] Active Directory Administrator: Bret Vazquez MD MCH (RBC) [Entitic mass] 31.4 pg Normal 25.2-33.5 [facility] Comment on above: Performed By: #### I OCAL, CDP, MG, LACTIC, ALICIA, BNP, BMP #### [address] [address] Active Directory Administrator: Bret Vazquez MD Performed By: #### E RTPF, CK, ECENZ, VD25 #### [address] [address] Active Directory Administrator: Bret Vazquez MD MCHC (RBC) [Mass/Vol] 32.8 g/dL Normal 28.4-34.8 [facility] Comment on above: Performed By: #### I OCAL, CDP, MG, LACTIC, ALICIA, BNP, BMP #### [address] [address] Active Directory Administrator: Bret Vazquez MD Performed By: #### E RTPF, CK, ECENZ, VD25 #### [address] [address] Active Directory Administrator: Bret Vazquez MD MCV (RBC) [Entitic vol] 95.8 fL Normal 82.6-102.9 M [facility] Comment on above: Performed By: #### I OCAL, CDP, MG, LACTIC, ALICIA, BNP, BMP #### [address] [address] Active Directory Administrator: Bret Vazquez MD Performed By: #### E RTPF, CK, ECENZ, VD25 #### [address] [address] Active Directory Administrator: Bret Vazquez MD Monocytes (Bld) [#/Vol] 0.88 10*3/uL Normal 0.10-1.20 [facility] Comment on above: Performed By: #### I OCAL, CDP, MG, LACTIC, ALICIA, BNP, BMP #### [place] [address] Active Directory Administrator: Bret Vazquez MD Performed By: #### E RTPF, CK, ECENZ, VD25 #### [place] [address] Active Directory Administrator: Bret Vazquez MD Monocytes/100 WBC (Bld) 12 % Normal 3-12 M [facility] Comment on above: Performed By: #### I OCAL, CDP, MG, LACTIC, ALICIA, BNP, BMP #### [place] [address] Active Directory Administrator: Bret Vazquez MD Performed By: #### E RTPF, CK, ECENZ, VD25 #### [place] [address] Active Directory Administrator: Bret Vazquez MD Neutrophil (Seg) 66 % High 36-65 [facility] Comment on above: Performed By: #### I OCAL, CDP, MG, LACTIC, ALICIA, BNP, BMP #### [place] [address] Active Directory Administrator: Bret Vazquez MD Performed By: #### E RTPF, CK, ECENZ, VD25 #### [place] [address] Active Directory Administrator: Bret Vazquez MD NRBC Automated 0.0 per 100 WBC Normal 0.0 [facility] Comment on above: Performed By: #### I OCAL, CDP, MG, LACTIC, ALICIA, BNP, BMP #### [address] [address] Active Directory Administrator: Bret Vazquez MD Performed By: #### E RTPF, CK, ECENZ, VD25 #### [address] [address] Active Directory Administrator: Bret Vazquez MD Platelet mean volume (Bld) [Entitic vol] 10.8 fL Normal 8.1-13.5 [facility] Comment on above: Performed By: #### I OCAL, CDP, MG, LACTIC, ALICIA, BNP, BMP #### [address] [address] Active Directory Administrator: Bret Vazquez MD Performed By: #### E RTPF, CK, ECENZ, VD25 #### [address] [address] Active Directory Administrator: Bret Vazquez MD Platelets (Bld) [#/Vol] 162 10*3/uL Normal 138-453 [facility] Comment on above: Performed By: #### I OCAL, CDP, MG, LACTIC, ALICIA, BNP, BMP #### [address] [address] Active Directory Administrator: Bret Vazquez MD Performed By: #### E RTPF, CK, ECENZ, VD25 #### [address] [address] Active Directory Administrator: Bret Vazquez MD RBC (Bld) [#/Vol] 2.39 10*6/uL Low 4.21-5.77 [facility] Comment on above: Performed By: #### I OCAL, CDP, MG, LACTIC, ALICIA, BNP, BMP #### [facility] [employer] [address] [place] [address] Active Directory Administrator: Bret Vazquez MD Performed By: #### E RTPF, CK, ECENZ, VD25 #### [address] [address] Active Directory Administrator: Bret Vazquez MD RBC morphology finding Nom (Bld) ANISOCYTOSIS PRESENT Normal [facility] Comment on above: Performed By: #### I OCAL, CDP, MG, LACTIC, ALICIA, BNP, BMP #### [address] [address] Active Directory Administrator: Bret Vazquez MD Performed By: #### E RTPF, CK, ECENZ, VD25 #### [address] [address] Active Directory Administrator: Bret Vazquez MD WBC (Bld) [#/Vol] 7.5 10*3/uL Normal 3.5-11.3 [facility] Comment on above: Performed By: #### I OCAL, CDP, MG, LACTIC, ALICIA, BNP, BMP #### [address] [address] Active Directory Administrator: Bret Vazquez MD Performed By: #### E RTPF, CK, ECENZ, VD25 #### [facility] [employer] [address] [place] [address] Active Directory Administrator: Bret Vazquez MD Magnesiumon 09-08-2022 Magnesium [Mass/Vol] 1.9 mg/dL Normal 1.6-2.6 [facility] Comment on above: Performed By: #### I OCAL, CDP, MG, LACTIC, ALICIA, BNP, BMP #### [facility] [employer] [address] [place] [address] Active Directory Administrator: Bret Vazquez MD Performed By: #### E RTPF, CK, ECENZ, VD25 #### [facility] [employer] [address] [place] [address] Active Directory Administrator: Bret Vazquez MD Basic Metab w/rfx MGon 09-07 Anion gap [Moles/Vol] 7 mmol/L Low 9-17 [facility] Comment on above: Performed By: #### I OCAL, CDP, MG, LACTIC, ALICIA, BNP, BMP #### [facility] [employer] [address] [place] [address] Active Directory Administrator: Bret Vazquez MD Performed By: #### E RTPF, CK, ECENZ, VD25 #### [facility] [employer] [address] [place] [address] Active Directory Administrator: Bret Vazquez MD Calcium [Mass/Vol] 7.7 mg/dL Low 8.6-10.4 [facility] Comment on above: Performed By: #### I OCAL, CDP, MG, LACTIC, ALICIA, BNP, BMP #### [facility] [employer] [address] [place] [address] Active Directory Administrator: Bret Vazquez MD Performed By: #### E RTPF, CK, ECENZ, VD25 #### [facility] [employer] [address] [place] [address] Active Directory Administrator: Bret Vazquez MD Chloride [Moles/Vol] 103 mmol/L Normal 98-107 [facility] Comment on above: Performed By: #### I OCAL, CDP, MG, LACTIC, ALICIA, BNP, BMP #### [address] [address] Active Directory Administrator: Bret Vazquez MD Performed By: #### E RTPF, CK, ECENZ, VD25 #### [facility] [employer] [address] [place] [address] Active Directory Administrator: Bret Vazquez MD CO2 [Moles/Vol] 22 mmol/L Normal 20-31 [facility] Comment on above: Performed By: #### I OCAL, CDP, MG, LACTIC, ALICIA, BNP, BMP #### [facility] [employer] [address] [place] [address] Active Directory Administrator: Bret Vazquez MD Performed By: #### E RTPF, CK, ECENZ, VD25 #### [address] [address] Active Directory Administrator: Bret Vazquez MD Creatinine [Mass/Vol] 0.62 mg/dL Low 0.70-1.20 [facility] Comment on above: Performed By: #### I OCAL, CDP, MG, LACTIC, ALICIA, BNP, BMP #### [facility] [employer] [address] [place] [id number] Active Directory Administrator: Bret Vazquez MD Performed By: #### E RTPF, CK, ECENZ, VD25 #### [address] [address] Active Directory Administrator: Bret Vazquez MD GFR/1.73 sq M.predicted among non-blacks MDRD (S/P/Bld) [Vol rate/Area] mL/min/{1.73_m2} Normal >60 [facility] Comment on above: Result Comment: Effective Jul [...] CDP, MG, LACTIC, ALICIA, BNP, BMP #### [facility] [employer] [address] [place] [address] [phone] Active Directory Administrator: Bret Vazquez MD Performed By: #### E RTPF, CK, ECENZ, VD25 #### [facility] [employer] [address] [place] [address] Active Directory Administrator: Bret Vazquez MD Glucose [Mass/Vol] 149 mg/dL High 70-99 [facility] Comment on above: Performed By: #### I OCAL, CDP, MG, LACTIC, ALICIA, BNP, BMP #### [address] [address] Active Directory Administrator: Bret Vazquez MD Performed By: #### E RTPF, CK, ECENZ, VD25 #### [address] [address] Active Directory Administrator: Bret Vazquez MD Potassium [Moles/Vol] 4.9 mmol/L Normal 3.7-5.3 [facility] Comment on above: Performed By: #### I OCAL, CDP, MG, LACTIC, ALICIA, BNP, BMP #### [address] [address] Active Directory Administrator: Bret Vazquez MD Performed By: #### E RTPF, CK, ECENZ, VD25 #### [address] [address] Active Directory Administrator: Bret Vazquez MD Sodium [Moles/Vol] 132 mmol/L Low 135-144 [facility] Comment on above: Performed By: #### I OCAL, CDP, MG, LACTIC, ALICIA, BNP, BMP #### [address] [address] Active Directory Administrator: Bret Vazquez MD Performed By: #### E RTPF, CK, ECENZ, VD25 #### [address] [address] Active Directory Administrator: Bret Vazquez MD Urea nitrogen [Mass/Vol] 13 mg/dL Normal 8-23 [facility] Comment on above: Performed By: #### I OCAL, CDP, MG, LACTIC, ALICIA, BNP, BMP #### [address] [address] Active Directory Administrator: Bret Vazquez MD Performed By: #### E RTPF, CK, ECENZ, VD25 #### [address] [address] Active Directory Administrator: Bret Vazquez MD CBC with Diffon 09-07-2022 Abs. Basophil <0.03 Normal 0.00-0.20 [facility] Comment on above: Performed By: #### I OCAL, CDP, MG, LACTIC, ALICIA, BNP, BMP #### [address] [address] Active Directory Administrator: Bret Vazquez MD Performed By: #### E RTPF, CK, ECENZ, VD25 #### [place] [address] Active Directory Administrator: Bret Vazquez MD Abs. Eosinophil <0.03 Normal 0.00-0.44 [facility] Comment on above: Performed By: #### I OCAL, CDP, MG, LACTIC, ALICIA, BNP, BMP #### [place] [address] Active Directory Administrator: Bret Vazquez MD Performed By: #### E RTPF, CK, ECENZ, VD25 #### [place] [address] Active Directory Administrator: Bret Vazquez MD Abs.Imm.Granulocyte 0.05 k/uL Normal 0.00-0.30 [facility] Comment on above: Performed By: #### I OCAL, CDP, MG, LACTIC, ALICIA, BNP, BMP #### [address] [address] Active Directory Administrator: Bret Vazquez MD Performed By: #### E RTPF, CK, ECENZ, VD25 #### [facility] [employer] [address] [place] [address] Active Directory Administrator: Bret Vazquez MD Abs.Neutrophil (Seg) 7.23 k/uL Normal 1.50-8.10 [facility] Comment on above: Performed By: #### I OCAL, CDP, MG, LACTIC, ALICIA, BNP, BMP #### [address] [address] Active Directory Administrator: Bret Vazquez MD Performed By: #### E RTPF, CK, ECENZ, VD25 #### [address] [address] Active Directory Administrator: Bret Vazquez MD Basophils/100 WBC (Bld) 0 % Normal 0-2 [facility] Comment on above: Performed By: #### I OCAL, CDP, MG, LACTIC, ALICIA, BNP, BMP #### [address] [address] Active Directory Administrator: Bret Vazquez MD Performed By: #### E RTPF, CK, ECENZ, VD25 #### [place] [address] Active Directory Administrator: Bret Vazquez MD Eosinophils/100 WBC (Bld) 0 % Low 1-4 [facility] Comment on above: Performed By: #### I OCAL, CDP, MG, LACTIC, ALICIA, BNP, BMP #### [address] [address] Active Directory Administrator: Bret Vazquez MD Performed By: #### E RTPF, CK, ECENZ, VD25 #### [facility] [employer] [address] [place] [address] Active Directory Administrator: Bret Vazquez MD Erythrocyte distribution width (RBC) [Ratio] 16.4 % High 11.8-14.4 [facility] Comment on above: Performed By: #### I OCAL, CDP, MG, LACTIC, ALICIA, BNP, BMP #### [facility] [employer] [address] [place] [address] Active Directory Administrator: Bret Vazquez MD Performed By: #### E RTPF, CK, ECENZ, VD25 #### [facility] [employer] [address] [place] [address] Active Directory Administrator: Bret Vazquez MD Hematocrit (Bld) [Volume fraction] 25.6 % Low 40.7-50.3 [facility] Comment on above: Performed By: #### I OCAL, CDP, MG, LACTIC, ALICIA, BNP, BMP #### [address] [address] Active Directory Administrator: Bret Vazquez MD Performed By: #### E RTPF, CK, ECENZ, VD25 #### [place] [address] Active Directory Administrator: Bret Vazquez MD Hemoglobin (Bld) [Mass/Vol] 7.6 g/dL Low 13.0-17.0 [facility] Comment on above: Performed By: #### I OCAL, CDP, MG, LACTIC, ALICIA, BNP, BMP #### [address] [address] Active Directory Administrator: Bret Vazquez MD Performed By: #### E RTPF, CK, ECENZ, VD25 #### [address] [address] Active Directory Administrator: Bret Vazquez MD Immature granulocytes/100 WBC (Bld) 1 % High 0 [facility] Comment on above: Performed By: #### I OCAL, CDP, MG, LACTIC, ALICIA, BNP, BMP #### [facility] [employer] [address] [place] [address] Active Directory Administrator: Bret Vazquez MD Performed By: #### E RTPF, CK, ECENZ, VD25 #### [address] [address] Active Directory Administrator: Bert Vazquez MD Lymphocytes (Bld) [#/Vol] 0.89 10*3/uL Low 1.10-3.70 [facility] Comment on above: Performed By: #### I OCAL, CDP, MG, LACTIC, ALICIA, BNP, BMP #### [address] [address] Active Directory Administrator: Bret Vazquez MD Performed By: #### E RTPF, CK, ECENZ, VD25 #### [address] [address] Active Directory Administrator: Bret Vazquez MD Lymphocytes/100 WBC (Bld) 10 % Low 24-43 [facility] Comment on above: Performed By: #### I OCAL, CDP, MG, LACTIC, ALICIA, BNP, BMP #### [address] [address] Active Directory Administrator: Bret Vazquez MD Performed By: #### E RTPF, CK, ECENZ, VD25 #### [place] [address] Active Directory Administrator: Bret Vazquez MD MCH (RBC) [Entitic mass] 31.7 pg Normal 25.2-33.5 [facility] Comment on above: Performed By: #### I OCAL, CDP, MG, LACTIC, ALICIA, BNP, BMP #### [address] [address] Active Directory Administrator: Bret Vazquez MD Performed By: #### E RTPF, CK, ECENZ, VD25 #### [address] [address] Active Directory Administrator: Bret Vazquez MD MCHC (RBC) [Mass/Vol] 29.7 g/dL Normal 28.4-34.8 [facility] Comment on above: Performed By: #### I OCAL, CDP, MG, LACTIC, ALICIA, BNP, BMP #### [address] [address] Active Directory Administrator: Bret Vazquez MD Performed By: #### E RTPF, CK, ECENZ, VD25 #### [facility] [employer] [address] [place] [address] Active Directory Administrator: Bret Vazquez MD MCV (RBC) [Entitic vol] 106.7 fL High 82.6-102.9 M [facility] Comment on above: Performed By: #### I OCAL, CDP, MG, LACTIC, ALICIA, BNP, BMP #### [facility] [employer] [address] [place] [address] Active Directory Administrator: Bret Vazquez MD Performed By: #### E RTPF, CK, ECENZ, VD25 #### [address] [address] Active Directory Administrator: Bret Vazquez MD Monocytes (Bld) [#/Vol] 1.00 10*3/uL Normal 0.10-1.20 [facility] Comment on above: Performed By: #### I OCAL, CDP, MG, LACTIC, ALICIA, BNP, BMP #### [address] [address] Active Directory Administrator: Bret Vazquez MD Performed By: #### E RTPF, CK, ECENZ, VD25 #### [address] [address] Active Directory Administrator: Bret Vazquez MD Monocytes/100 WBC (Bld) 11 % Normal 3-12 [facility] Comment on above: Performed By: #### I OCAL, CDP, MG, LACTIC, ALICIA, BNP, BMP #### [address] [address] Active Directory Administrator: Bret Vazquez MD Performed By: #### E RTPF, CK, ECENZ, VD25 #### [facility] [employer] [address] [place] [address] Active Directory Administrator: Bret Vazquez MD Neutrophil (Seg) 79 % High 36-65 [facility] Comment on above: Performed By: #### I OCAL, CDP, MG, LACTIC, ALICIA, BNP, BMP #### [address] [address] Active Directory Administrator: Bret Vazquez MD Performed By: #### E RTPF, CK, ECENZ, VD25 #### [address] [address] Active Directory Administrator: Bret Vazquez MD NRBC Automated 0.0 per 100 WBC Normal 0.0 [facility] Comment on above: Performed By: #### I OCAL, CDP, MG, LACTIC, ALICIA, BNP, BMP #### [address] [address] Active Directory Administrator: Bret Vazquez MD Performed By: #### E RTPF, CK, ECENZ, VD25 #### [place] [address] Active Directory Administrator: Bret Vazquez MD Platelet mean volume (Bld) [Entitic vol] 10.7 fL Normal 8.1-13.5 [facility] Comment on above: Performed By: #### I OCAL, CDP, MG, LACTIC, ALICIA, BNP, BMP #### [address] [address] Active Directory Administrator: Bret Vazquez MD Performed By: #### E RTPF, CK, ECENZ, VD25 #### [address] [address] Active Directory Administrator: Bret Vazquez MD Platelets (Bld) [#/Vol] 206 10*3/uL Normal 138-453 [facility] Comment on above: Performed By: #### I OCAL, CDP, MG, LACTIC, ALICIA, BNP, BMP #### [address] [address] Active Directory Administrator: Bret Vazquez MD Performed By: #### E RTPF, CK, ECENZ, VD25 #### [facility] [employer] [address] [place] [address] Active Directory Administrator: Bret Vazquez MD RBC (Bld) [#/Vol] 2.40 10*6/uL Low 4.21-5.77 [facility] Comment on above: Performed By: #### I OCAL, CDP, MG, LACTIC, ALICIA, BNP, BMP #### [facility] [employer] [address] [place] [address] Active Directory Administrator: Bret Vazquez MD Performed By: #### E RTPF, CK, ECENZ, VD25 #### [facility] [employer] [address] [place] [address] Active Directory Administrator: Bret Vazquez MD RBC morphology finding Nom (Bld) ANISOCYTOSIS PRESENT Normal [facility] Comment on above: Result Comment: MACR OCYTOSIS PRESENT Performed By: #### I OCAL, CDP, MG, LACTIC, ALICIA, BNP, BMP #### [address] [address] Active Directory Administrator: Bret Vazquez MD Performed By: #### E RTPF, CK, ECENZ, VD25 #### [address] [address] Active Directory Administrator: Bret Vazquez MD WBC (Bld) [#/Vol] 9.2 10*3/uL Normal 3.5-11.3 [facility] Comment on above: Performed By: #### I OCAL, CDP, MG, LACTIC, ALICIA, BNP, BMP #### [facility] [employer] [address] [place] [address] Active Directory Administrator: Bret Vazquez MD Performed By: #### E RTPF, CK, ECENZ, VD25 #### [facility] [employer] [address] [place] [address] Active Directory Administrator: Bret Vazquez MD Hgb/Hcton 09-07-2022 Hematocrit (Bld) [Volume fraction] 22.7 % Low 40.7-50.3 [facility] Comment on above: Performed By: #### Jose R SAPP UAPriti, UMICAO #### [facility] [employer] [address] [place] [address] Active Directory Administrator: Bret Vazquez MD Performed By: #### H H #### [facility] [employer] [address] [place] [address] Active Directory Administrator: Bret Vazquez MD Hemoglobin (Bld) [Mass/Vol] 6.9 g/dL Critically low 13.0-17.0 [facility] Comment on above: Performed By: #### Jose R SAPP UAPriti, UMICAO #### [facility] [employer] [address] [place] [address] Active Directory Administrator: Bret Vazquez MD Performed By: #### H H #### [facility] [address] [place] [address] Active Directory Administrator: Bret Vazquez MD Hematocrit (Bld) [Volume fraction] 19.2 % Low 40.7-50.3 [facility] Comment on above: Performed By: #### B MPX, CDP #### [facility] [address] [place] [address] Active Directory Administrator: Bret Vazquez MD Performed By: #### E RTPChantel, CK, VIRGIL, VD25 #### [facility] [address] [place] [address] Active Directory Administrator: Bret Vazquez MD Hemoglobin (Bld) [Mass/Vol] 6.2 g/dL Critically low 13.0-17.0 [facility] Comment on above: Performed By: #### B MPX, CDP #### [facility] [address] [place] [address] Active Directory Administrator: Bret Vazquez MD Performed By: #### E RTPF, CK, ECENZ, VD25 #### [address] [place], [place] [id number] Active Directory Administrator: Bret Vazquez MD Magnesiumon 09-07-2022 Magnesium [Mass/Vol] 2.1 mg/dL Normal 1.6-2.6 [facility] Comment on above: Performed By: #### I OCAL, CDP, MG, LACTIC, ALICIA, BNP, BMP #### [address] [address] [place] [address] Active Directory Administrator: Bret Vazquez MD Performed By: #### E RTPF, CK, ECENZ, VD25 #### [address] [address] [place], [place] [address]78[address] Active Directory Administrator: Bret Vazquez MD XR CHEST PORTABLEon 09-07-20 [...] Bry Becker MD 09/07/22 Final result Normal [facility] Basic Metab w/rfx MGon 09-06 Anion gap [Moles/Vol] 9 mmol/L Normal 9-17 [facility] Comment on above: Performed By: #### D AU, UAX, UMICAO #### [address] [id number] Active Directory Administrator: Bret Vazquez MD Performed By: #### CHRISTY MOJICA #### [facility] [employer] [address] [place] [address] Active Directory Administrator: Bret Vazquez MD Calcium [Mass/Vol] 7.4 mg/dL Low 8.6-10.4 [facility] Comment on above: Performed By: #### GINI STARKS UMICAO #### [facility] [employer] [address] [place] [address] Active Directory Administrator: Bret Vazquez MD Performed By: #### CHRISTY MOJICA #### [facility] [employer] [address] [place] [address] Active Directory Administrator: Bret Vazquez MD Chloride [Moles/Vol] 104 mmol/L Normal 98-107 [facility] Comment on above: Performed By: #### GINI STARKS UMICAO #### [address] [address] Active Directory Administrator: Bret Vazquez MD Performed By: #### CHRISTY MOJICA #### [facility] [employer] [address] [place] [address] Active Directory Administrator: Bret Vazquez MD CO2 [Moles/Vol] 22 mmol/L Normal 20-31 [facility] Comment on above: Performed By: #### GINI STARKS, UMICAO #### [facility] [employer] [address] [place] [address] Active Directory Administrator: Bret Vazquez MD Performed By: #### CHRISTY MOJICA #### [facility] [employer] [address] [place] [address] Active Directory Administrator: Bret Vazquez MD Creatinine [Mass/Vol] 0.59 mg/dL Low 0.70-1.20 [facility] Comment on above: Performed By: #### GINI STARKS, UMICAO #### [address] [address] Active Directory Administrator: Bret Vazquez MD Performed By: #### CHRISTY MOJICA #### [address] [address] Active Directory Administrator: Bret Vazquez MD GFR/1.73 sq M.predicted among non-blacks MDRD (S/P/Bld) [Vol rate/Area] mL/min/{1.73_m2} Normal >60 [facility] Comment on above: Result Comment: Effective Jul [...] Performed By: #### GINI STARKS UMICAO #### [address] [address] Active Directory Administrator: Bret Vazquez MD Performed By: #### CHRISTY MOJICA #### [address] [address] Active Directory Administrator: Bret Vazquez MD Glucose [Mass/Vol] 175 mg/dL High 70-99 [facility] Comment on above: Performed By: #### GINI STARKS, UMICAO #### [address] [address] Active Directory Administrator: Bret Vazquez MD Performed By: #### CHRISTY MOJICA #### [address] [address] Active Directory Administrator: Bret Vazquez MD Potassium [Moles/Vol] 4.5 mmol/L Normal 3.7-5.3 [facility] Comment on above: Performed By: #### Jose R AU, UAX, UMICAO #### [facility] [address] [place] [address] Active Directory Administrator: Bret Vazquez MD Performed By: #### E RTKLARISSA HIGGINSEG #### [facility] [address] [place] [address] Active Directory Administrator: Bret Vazquez MD Sodium [Moles/Vol] 135 mmol/L Normal 135-144 [facility] Comment on above: Performed By: #### Jose R AU, UAX, UMICAO #### [facility] [address] [place] [address] Active Directory Administrator: Bret Vazquez MD Performed By: #### E RTCHRISTY HIGGINS #### [facility] [address] [place] [address] Active Directory Administrator: Bret Vazquez MD Urea nitrogen [Mass/Vol] 11 mg/dL Normal 8-23 [facility] Comment on above: Performed By: #### Jose R SAPP, UAX, UMICAO #### [facility] [address] [place] [address] Active Directory Administrator: Bret Vazquez MD Performed By: #### E RTCHRISTY HIGGINS #### [facility] [address] [place] [address] Active Directory Administrator: Bret Vazquez MD Basic Metabolic Profon 09-06 Anion gap [Moles/Vol] 7 mmol/L Low 9-17 [facility] Comment on above: Performed By: #### Jose R SAPP, UAX, UMICAO #### [facility] [address] [place] [address] Active Directory Administrator: Bret Vazquez MD Performed By: #### E RTRONALDO GHLTEG #### [facility] [address] [place] [address] Active Directory Administrator: Bret Vazquez MD Calcium [Mass/Vol] 7.8 mg/dL Low 8.6-10.4 [facility] Comment on above: Performed By: #### GINI STARKS UMSAMSONO #### [facility] [address] [place] [address] Active Directory Administrator: Bret Vazquez MD Performed By: #### CHRISTY MOJICA #### [facility] [address] [place] [address] Active Directory Administrator: Bret Vazquez MD Chloride [Moles/Vol] 107 mmol/L Normal 98-107 [facility] Comment on above: Performed By: #### GINI STARKS UMSAMSONO #### [facility] [employer] [address] [place] [address] Active Directory Administrator: Bret Vazquez MD Performed By: #### CHRISTY MOJICA #### [facility] [employer] [address] [place] [address] Active Directory Administrator: Bret Vazquez MD CO2 [Moles/Vol] 23 mmol/L Normal 20-31 [facility] Comment on above: Performed By: #### GINI STARKS, UMICAO #### [facility] [employer] [address] [place] [address] Active Directory Administrator: Bret Vazquez MD Performed By: #### CHRISTY MOJICA #### [facility] [employer] [address] [place] [address] Active Directory Administrator: Bret Vazquez MD Creatinine [Mass/Vol] 0.60 mg/dL Low 0.70-1.20 [facility] Comment on above: Performed By: #### GINI STARKS, UMICAO #### [facility] [employer] [address] [place] [address] Active Directory Administrator: Bret Vazquez MD Performed By: #### CHRISTY MOJICA #### [address] [address] Active Directory Administrator: Bret Vazquez MD GFR/1.73 sq M.predicted among non-blacks MDRD (S/P/Bld) [Vol rate/Area] mL/min/{1.73_m2} Normal >60 [facility] Comment on above: Result Comment: Effective Jul [...] tubular secretion. Performed By: #### GINI STARKS, CORRINA #### [address] [address] Active Directory Administrator: Bret Vazquez MD Performed By: #### CHRISTY MOJICA #### [facility] [employer] [address] [place] [address] Active Directory Administrator: Bret Vazquez MD Glucose [Mass/Vol] 155 mg/dL High 70-99 [facility] Comment on above: Performed By: #### GINI STARKS, UMEPIFANIO #### [address] [address] Active Directory Administrator: Bret Vazquez MD Performed By: #### CHRISTY MOJICA #### [facility] [employer] [address] [place] [address] Active Directory Administrator: Bret Vazquez MD Potassium [Moles/Vol] 5.0 mmol/L Normal 3.7-5.3 [facility] Comment on above: Performed By: #### GINI STARKS, UMICAO #### [address] [address] Active Directory Administrator: Bret Vazquez MD Performed By: #### E RTPF, GHLTEG #### [facility] [employer] [address] [place] [address] Active Directory Administrator: Bret Vazquez MD Sodium [Moles/Vol] 137 mmol/L Normal 135-144 [facility] Comment on above: Performed By: #### Jose R SAPP, UAX, UMICAO #### [facility] [address] [place] [address] Active Directory Administrator: Bret Vazquez MD Performed By: #### E RTPChantel GHLTEG #### [address] [address] Active Directory Administrator: Bret Vazquez MD Urea nitrogen [Mass/Vol] 11 mg/dL Normal 8-23 [facility] Comment on above: Performed By: #### D SENAIT, UAX, UMICAO #### [facility] [employer] [address] [place] [address] Active Directory Administrator: Bret Vazquez MD Performed By: #### Isidro RTRONALDO GHLTEG #### [facility] [employer] [address] [place] [address] Active Directory Administrator: Bret Vazquez MD Anion gap [Moles/Vol] 11 mmol/L Normal 9-17 [facility] Comment on above: Performed By: #### I OCAL, CDP, MG, LACTIC, ALICIA, BNP, BMP #### [facility] [employer] [address] [place] [address] Active Directory Administrator: Bret Vazquez MD Performed By: #### E RTPF, CK, ECENZ, VD25 #### [facility] [employer] [address] [place] [address] Active Directory Administrator: Bret Vazquez MD Calcium [Mass/Vol] 7.5 mg/dL Low 8.6-10.4 [facility] Comment on above: Performed By: #### I OCAL, CDP, MG, LACTIC, ALICIA, BNP, BMP #### [address] [address] Active Directory Administrator: Bret Vazquez MD Performed By: #### E RTPF, CK, ECENZ, VD25 #### [facility] [employer] [address] [place] [address] Active Directory Administrator: Bret Vazquez MD Chloride [Moles/Vol] 104 mmol/L Normal 98-107 [facility] Comment on above: Performed By: #### I OCAL, CDP, MG, LACTIC, ALICIA, BNP, BMP #### [address] [address] Active Directory Administrator: Bret Vazquez MD Performed By: #### E RTPF, CK, ECENZ, VD25 #### [address] [address] Active Directory Administrator: Bret Vazquez MD CO2 [Moles/Vol] 20 mmol/L Normal 20-31 [facility] Comment on above: Performed By: #### I OCAL, CDP, MG, LACTIC, ALICIA, BNP, BMP #### [address] [address] Active Directory Administrator: Bret Vazquez MD Performed By: #### E RTPF, CK, ECENZ, VD25 #### [address] [address] Active Directory Administrator: Bret Vazquez MD Creatinine [Mass/Vol] 0.62 mg/dL Low 0.70-1.20 [facility] Comment on above: Performed By: #### I OCAL, CDP, MG, LACTIC, ALICIA, BNP, BMP #### [address] [address] Active Directory Administrator: Bret Vazquez MD Performed By: #### E RTPF, CK, ECENZ, VD25 #### [facility] [employer] [address] [place] [address] Active Directory Administrator: Bret Vazquez MD GFR/1.73 sq M.predicted among non-blacks MDRD (S/P/Bld) [Vol rate/Area] mL/min/{1.73_m2} Normal >60 [facility] Comment on above: Result Comment: Effective Jul [...] CDP, MG, LACTIC, ALICIA, BNP, BMP #### [address] [address] Active Directory Administrator: Bret Vazquez MD Performed By: #### E RTPF, CK, ECENZ, VD25 #### [address] [address] Active Directory Administrator: Bret Vazquez MD Glucose [Mass/Vol] 157 mg/dL High 70-99 [facility] Comment on above: Performed By: #### I OCAL, CDP, MG, LACTIC, ALICIA, BNP, BMP #### [address] [address] Active Directory Administrator: Bret Vazquez MD Performed By: #### E RTPF, CK, ECENZ, VD25 #### [facility] [employer] [address] [place] [address] Active Directory Administrator: Bret Vazquez MD Potassium [Moles/Vol] 4.2 mmol/L Normal 3.7-5.3 [facility] Comment on above: Performed By: #### I OCAL, CDP, MG, LACTIC, ALICIA, BNP, BMP #### [address] [address] Active Directory Administrator: Bret Vazquez MD Performed By: #### E RTPF, CK, ECENZ, VD25 #### [facility] [employer] [address] [place] [address]345 Active Directory Administrator: Bret Vazquez MD Sodium [Moles/Vol] 135 mmol/L Normal 135-144 [facility] Comment on above: Performed By: #### I OCAL, CDP, MG, LACTIC, ALICIA, BNP, BMP #### [facility] [address] [place] [address] Active Directory Administrator: Bret Vazquez MD Performed By: #### E RTPF, CK, ECENZ, VD25 #### [facility] [employer] [address] [place] [address] 35136 Active Directory Administrator: Bret Vazquez MD Urea nitrogen [Mass/Vol] 11 mg/dL Normal 8-23 [facility] Comment on above: Performed By: #### I OCAL, CDP, MG, LACTIC, ALICIA, BNP, BMP #### [facility] [employer] [address] [place] [address] 07981 Active Directory Administrator: Bret Vazquez MD Performed By: #### E RTPF, CK, ECENZ, VD25 #### [facility] [employer] [address] [place] [address] 58486 Active Directory Administrator: Bret Vazquez MD Brain Natri. Peptideon 09-06 Natriuretic peptide B (Bld) [Mass/Vol] 846 pg/mL High <300 [facility] Comment on above: Result Comment: An age-independent cutoff point of 300 pg/ml has a 98% negative predictive value excluding acute heart failure. Performed By: #### B MPX, CDP #### [facility] [employer] [address] [place] [address]1103 Active Directory Administrator: Bret Vazquez MD Performed By: #### E RTPF, CK, ECENZ, VD25 #### [facility] [employer] [address] [place] [address] 27658 Active Directory Administrator: Bret Vazquez MD CBC with Diffon 09-06-2022 Abs. Basophil 0.00 k/uL Normal 0.0-0.2 [facility] Comment on above: Performed By: #### Jose R SAPP, UAX, UMICAO #### [address] [address] Active Directory Administrator: Bret Vazquez MD Performed By: #### E RTCHRISTY HIGGINS #### [address] [address] Active Directory Administrator: Bret Vazquez MD Abs.Imm.Granulocyte 0.00 k/uL Normal 0.00-0.30 [facility] Comment on above: Performed By: #### GINI STARKS, UMICAO #### [address] [address] Active Directory Administrator: Bret Vazquez MD Performed By: #### CHRISTY MOJICA #### [address] [address] Active Directory Administrator: Bret Vazquez MD Abs.Neutrophil (Seg) 8.46 k/uL High 1.8-7.7 [facility] Comment on above: Performed By: #### GINI STARKS, UMICAO #### [address] [address] Active Directory Administrator: Bret Vazquez MD Performed By: #### E RTCHRISTY HIGGINS #### [address] [address] Active Directory Administrator: Bret Vazquez MD Basophils/100 WBC (Bld) 0 % Normal 0-2 [facility] Comment on above: Performed By: #### Jose R SAPP, UAX, UMICAO #### [address] [address] Active Directory Administrator: Bret Vazquez MD Performed By: #### CHRISTY MOJICA #### [facility] [employer] [address] [place] [address]32 Active Directory Administrator: Bret Vazquez MD Eosinophils (Bld) [#/Vol] 0.00 10*3/uL Normal 0.0-0.4 [facility] Comment on above: Performed By: #### GINI STARKS, SHEMARO #### [facility] [employer] [address] [place] [address] 72666 Active Directory Administrator: Bret Vazquez MD Performed By: #### CHRISTY MOJICA #### [facility] [employer] [address] [place] [address]95 Active Directory Administrator: Bret Vazquez MD Eosinophils/100 WBC (Bld) 0 % Low 1-4 [facility] Comment on above: Performed By: #### GINI STARKS, SHEMARO #### [facility] [employer] [address] [place] [address]29 Active Directory Administrator: Bret Vazquez MD Performed By: #### CHRISTY MOJICA #### [facility] [employer] [address] [place] [address]309 Active Directory Administrator: Bret Vazquez MD Immature granulocytes/100 WBC (Bld) 0 % Normal 0 [facility] Comment on above: Performed By: #### GINI STARKS, UMICAO #### [facility] [employer] [address] [place] [address]153 Active Directory Administrator: Bret Vazquez MD Performed By: #### CHRISTY MOJICA #### [facility] [employer] [address] [place] [address] 04871 Active Directory Administrator: Bret Vazquez MD Lymphocytes (Bld) [#/Vol] 0.55 10*3/uL Low 1.0-4.8 [facility] Comment on above: Performed By: #### D AU, UAX, UMICAO #### [facility] [address] [place] [address]779 Active Directory Administrator: Bret Vazquez MD Performed By: #### E RTPF, KLARISSAEG #### [address] [address] Active Directory Administrator: Bret Vazquez MD Lymphocytes/100 WBC (Bld) 6 % Low 24-44 [facility] Comment on above: Performed By: #### Jose R AU, UAX, UMICAO #### [address] [address] Active Directory Administrator: Bret Vazquez MD Performed By: #### E RTPKLARISSA GoldenEG #### [address] [address] Active Directory Administrator: Bret Vazquez MD Monocytes (Bld) [#/Vol] 0.09 10*3/uL Low 0.1-0.8 [facility] Comment on above: Performed By: #### Jose R SAPP, UAX, UMICAO #### [address] [address] Active Directory Administrator: Bert Vazquez MD Performed By: #### E RTRONALDO GHLTEG #### [address] [address] Active Directory Administrator: Bret Vazquez MD Monocytes/100 WBC (Bld) 1 % Normal 1-7 [facility] Comment on above: Performed By: #### Jose R SAPP, UAX, UMICAO #### [facility] [address] [place] [address]236 Active Directory Administrator: Bret Vazquez MD Performed By: #### E RTPF, GHLTEG #### [facility] [employer] [address] [place] [address] 6[address] Active Directory Administrator: Bret Vazquez MD Morphology Ruy (Bld) [Interp] ANISOCYTOSIS PRESENT Normal [facility] Comment on above: Result Comment: 1+ ACANTHOCYTES Performed By: #### GINI STARKS UMICAO #### [facility] [employer] [address] [place] [address]346 Active Directory Administrator: Bret Vazquez MD Performed By: #### CHRISTY MOJICA #### [facility] [employer] [address] [place] [address]999 Active Directory Administrator: Bret Vazquez MD Neutrophil (Seg) 93 % High 36-66 [facility] Comment on above: Performed By: #### GINI STARKS UMICAO #### [facility] [employer] [address] [place] [address]794 Active Directory Administrator: Bret Vazquez MD Performed By: #### CHRISTY MOJICA #### [facility] [employer] [address] [place] [address] 10150 Active Directory Administrator: Bret Vazquez MD Erythrocyte distribution width (RBC) [Ratio] 16.8 % High 11.8-14.4 [facility] Comment on above: Performed By: #### GINI STARKS UMICAO #### [facility] [employer] [address] [place] [address] Active Directory Administrator: Bret Vazquez MD Performed By: #### Isidro RTCHRISTY HIGGINS #### [facility] [address] [place] [address] Active Directory Administrator: Bret Vazquez MD Hematocrit (Bld) [Volume fraction] 26.6 % Low 40.7-50.3 [facility] Comment on above: Performed By: #### GINI STARKS, UMICAO #### [facility] [employer] [address] [place] [address] 54517 Active Directory Administrator: Bret Vazquez MD Performed By: #### Isidro RTCHRISTY HIGGINS #### [address] [address] Active Directory Administrator: Bret Vazquez MD Hemoglobin (Bld) [Mass/Vol] 8.5 g/dL Low 13.0-17.0 [facility] Comment on above: Performed By: #### Jose R SAPP UAX, UMICAO #### [facility] [address] [place] [address]367 Active Directory Administrator: Bret Vazquez MD Performed By: #### E RTKLARISSA HIGGINSEG #### [address] [address] Active Directory Administrator: Bret Vazquez MD MCH (RBC) [Entitic mass] 31.6 pg Normal 25.2-33.5 [facility] Comment on above: Performed By: #### GINI STARKS, UMICAO #### [address] [address] Active Directory Administrator: Bret Vazquez MD Performed By: #### E CHRISTY LOPEZ #### [address] [address] Active Directory Administrator: Bret Vazquez MD MCHC (RBC) [Mass/Vol] 32.0 g/dL Normal 28.4-34.8 [facility] Comment on above: Performed By: #### GINI STARKS, UMICAO #### [address] [address] Active Directory Administrator: Bret Vazquez MD Performed By: #### E CHRISTY LOPEZ #### [address] [address] Active Directory Administrator: Bret Vazquez MD MCV (RBC) [Entitic vol] 98.9 fL Normal 82.6-102.9 [facility] Comment on above: Performed By: #### Jose R SAPP UAX, UMICAO #### [address] [address] Active Directory Administrator: Bret Vazquez MD Performed By: #### CHRISTY MOJICA #### [address] [address] Active Directory Administrator: Bret Vazquez MD NRBC Automated 0.0 per 100 WBC Normal 0.0 [facility] Comment on above: Performed By: #### Jose R SAPP, UAX, UMICAO #### [address] [address] Active Directory Administrator: Bret Vazquez MD Performed By: #### CHRISTY MOJICA #### [address] [address] Active Directory Administrator: Bret Vazquez MD Platelet mean volume (Bld) [Entitic vol] 10.4 fL Normal 8.1-13.5 [facility] Comment on above: Performed By: #### Jose R SAPP, UAX, UMICAO #### [address] [address] Active Directory Administrator: Bret Vazquez MD Performed By: #### CHRISTY MOJIAC #### [address] [address] Active Directory Administrator: Bret Vazquez MD Platelets (Bld) [#/Vol] 224 10*3/uL Normal 138-453 [facility] Comment on above: Performed By: #### Jose R SAPP, UAX, UMICAO #### [address] [address] Active Directory Administrator: Bret Vazquez MD Performed By: #### Isidro RTCHRISTY HIGGINS #### [address] [address] Active Directory Administrator: Bret Vazquez MD RBC (Bld) [#/Vol] 2.69 10*6/uL Low 4.21-5.77 [facility] Comment on above: Performed By: #### GINI STARKS UMICAO #### [facility] [employer] [address] [place] [address]40 Active Directory Administrator: Bret Vazquez MD Performed By: #### Isidro RTCHRISTY HIGGINS #### [facility] [employer] [address] [place] [address]26 Active Directory Administrator: Bret Vazquez MD WBC (Bld) [#/Vol] 9.1 10*3/uL Normal 3.5-11.3 [facility] Comment on above: Performed By: #### GINI STARKS UMICAO #### [facility] [employer] [address] [place] [address] Active Directory Administrator: Bret Vazquez MD Performed By: #### Isidro RTCHRISTY HIGGINS #### [facility] [employer] [address] [place] [address]990 Active Directory Administrator: Bret Vazquez MD Abs. Basophil 0.03 k/uL Normal 0.00-0.20 [facility] Comment on above: Performed By: #### GINI STARKS, UMICAO #### [facility] [employer] [address] [place] [address]14 Active Directory Administrator: Bret Vazquez MD Performed By: #### Isidro RTCHRISTY HIGGINS #### [facility] [employer] [address] [place] [address]16 Active Directory Administrator: Bret Vazquez MD Abs. Eosinophil <0.03 Normal 0.00-0.44 [facility] Comment on above: Performed By: #### GINI STARKS, UMICAO #### [facility] [employer] [address] [place] [address]73 Active Directory Administrator: Bret Vazquez MD Performed By: #### Isidro RTCHRISTY HIGGINS #### [facility] [address] [place] [address]402 Active Directory Administrator: Bret Vazquez MD Abs.Imm.Granulocyte 0.05 k/uL Normal 0.00-0.30 [facility] Comment on above: Performed By: #### Jose R SAPP, UAX, UMICAO #### [facility] [address] [place] [address] Active Directory Administrator: Bret Vazquez MD Performed By: #### E RTCHRISTY HIGGINS #### [facility] [employer] [address] [place] [address]38 Active Directory Administrator: Bret Vazquez MD Abs.Neutrophil (Seg) 9.22 k/uL High 1.50-8.10 [facility] Comment on above: Performed By: #### Jose R SAPP UAPriti, UMICAO #### [facility] [employer] [address] [place] [address]74 Active Directory Administrator: Bret Vazquez MD Performed By: #### E RTCHRISTY HIGGINS #### [address] [address] Active Directory Administrator: Bret Vazquez MD Basophils/100 WBC (Bld) 0 % Normal 0-2 [facility] Comment on above: Performed By: #### Jose R SAPP UAX, UMICAO #### [facility] [employer] [address] [place] [address]81 Active Directory Administrator: Bret Vazquez MD Performed By: #### E RTCHRISTY HIGGINS #### [facility] [employer] [address] [place] [address]25 Active Directory Administrator: Bret Vazquez MD Eosinophils/100 WBC (Bld) 0 % Low 1-4 [facility] Comment on above: Performed By: #### Jose R SAPP, UAX, UMICAO #### [facility] [employer] [address] [place] [address]674 Active Directory Administrator: Bret Vazquez MD Performed By: #### CHRISTY MOJICA #### [address] [address] Active Directory Administrator: Bret Vazquez MD Erythrocyte distribution width (RBC) [Ratio] 16.8 % High 11.8-14.4 [facility] Comment on above: Performed By: #### GINI STARKS, CORRINA #### [facility] [employer] [address] [place] [address]91 Active Directory Administrator: Bret Vazquez MD Performed By: #### CHRISTY MOJICA #### [address] [address] Active Directory Administrator: Bret Vazquez MD Hematocrit (Bld) [Volume fraction] 30.0 % Low 40.7-50.3 [facility] Comment on above: Performed By: #### GINI STARKS, SHEMARO #### [address] [address] Active Directory Administrator: Bret Vazquez MD Performed By: #### CHRISTY MOJICA #### [facility] [employer] [address] [place] [address] 11495 Active Directory Administrator: Bret Vazquez MD Hemoglobin (Bld) [Mass/Vol] 9.7 g/dL Low 13.0-17.0 [facility] Comment on above: Performed By: #### GINI STARKS, UMICAO #### [facility] [employer] [address] [place] [address] 36971 Active Directory Administrator: Bret Vazquez MD Performed By: #### CHRISTY MOJICA #### [facility] [employer] [address] [place] [address] 19805 Active Directory Administrator: Bret Vazquez MD Immature granulocytes/100 WBC (Bld) 0 % Normal 0 [facility] Comment on above: Performed By: #### D AU, UAX, UMICAO #### [facility] [address] [place] [address] 79138 Active Directory Administrator: Bret Vazquez MD Performed By: #### Isidro RTCHRISTY HIGGINS #### [facility] [address] [place] [address] 77860 Active Directory Administrator: Bret Vazquez MD Lymphocytes (Bld) [#/Vol] 0.84 10*3/uL Low 1.10-3.70 [facility] Comment on above: Performed By: #### Jose R SAPP, UAX, UMICAO #### [address] [address] Active Directory Administrator: Bret Vazquez MD Performed By: #### Isidro RTCHRISTY HIGGINS #### [address] [address] Active Directory Administrator: Bret Vazquez MD Lymphocytes/100 WBC (Bld) 8 % Low 24-43 [facility] Comment on above: Performed By: #### Jose R SAPP, UAX, UMICAO #### [address] [address] Active Directory Administrator: Bret Vazquez MD Performed By: #### Isidro RTCHRISTY HIGGINS #### [facility] [employer] [address] [place] [address]78 Active Directory Administrator: Bret Vazquez MD MCH (RBC) [Entitic mass] 31.6 pg Normal 25.2-33.5 [facility] Comment on above: Performed By: #### Jos eR SAPP, UAX, UMICAO #### [facility] [employer] [address] [place] [address] 00710 Active Directory Administrator: Bret Vazquez MD Performed By: #### E RTKLARISSA HIGGINSEG #### [facility] [employer] [address] [place] [address] 02621 Active Directory Administrator: Bret Vazquez MD MCHC (RBC) [Mass/Vol] 32.3 g/dL Normal 28.4-34.8 [facility] Comment on above: Performed By: #### GINI STARKS UMSAMSONO #### [address] [address] Active Directory Administrator: Bret Vazquez MD Performed By: #### Isidro RTCHRISTY HIGGINS #### [address] [address] Active Directory Administrator: Bret Vazquez MD MCV (RBC) [Entitic vol] 97.7 fL Normal 82.6-102.9 [facility] Comment on above: Performed By: #### GINI STARKS, UMICAO #### [address] [address] Active Directory Administrator: Bret Vazquez MD Performed By: #### CHRISTY MOJICA #### [address] [address] Active Directory Administrator: Bret Vazquez MD Monocytes (Bld) [#/Vol] 0.98 10*3/uL Normal 0.10-1.20 [facility] Comment on above: Performed By: #### GINI STARKS, UMICAO #### [address] [address] Active Directory Administrator: Bret Vazquez MD Performed By: #### Isidro RTCHRISTY HIGGINS #### [address] [address] Active Directory Administrator: Bret Vazquez MD Monocytes/100 WBC (Bld) 9 % Normal 3-12 [facility] Comment on above: Performed By: #### GINI STARKS, UMICAO #### [address] [address] Active Directory Administrator: Bret Vazquez MD Performed By: #### E RTKLARISSA HIGGINSEG #### [facility] [address] [place] [address] 70677 Active Directory Administrator: Bret Vazquez MD Neutrophil (Seg) 83 % High 36-65 [facility] Comment on above: Performed By: #### Jose R SAPP, UAX, UMICAO #### [address] [address] Active Directory Administrator: Bret Vazquez MD Performed By: #### E RTPFKLARISSAEG #### [facility] [address] [place] [address]3979 Active Directory Administrator: Bret Vazquez MD NRBC Automated 0.0 per 100 WBC Normal 0.0 [facility] Comment on above: Performed By: #### Jose R SAPP, UAX, UMICAO #### [address] [address] Active Directory Administrator: Bret Vazquez MD Performed By: #### E RTKLARISSA HIGGINSEG #### [address] [address] Active Directory Administrator: Bret Vazquez MD Platelet mean volume (Bld) [Entitic vol] 10.2 fL Normal 8.1-13.5 [facility] Comment on above: Performed By: #### Jose R SAPP UAX, UMICAO #### [address] [address] Active Directory Administrator: Bret Vazquez MD Performed By: #### E RTPF GHLTEG #### [address] [address] Active Directory Administrator: Bret Vazquez MD Platelets (Bld) [#/Vol] 249 10*3/uL Normal 138-453 [facility] Comment on above: Performed By: #### Jose R SAPP, UAX, UMICAO #### [facility] [address] [place] [address] Active Directory Administrator: Bret Vazquez MD Performed By: #### Isidro RTCHRISTY HIGGINS #### [address] [address] Active Directory Administrator: Bret Vazquez MD RBC (Bld) [#/Vol] 3.07 10*6/uL Low 4.21-5.77 [facility] Comment on above: Performed By: #### Jose R SAPP, UAX, UMICAO #### [facility] [employer] [address] [place] [address] 8[address]34 Active Directory Administrator: Bret Vazquez MD Performed By: #### CHRISTY MOJICA #### [address] [address] Active Directory Administrator: Bret Vazquez MD RBC morphology finding Nom (Bld) ANISOCYTOSIS PRESENT Normal [facility] Comment on above: Performed By: #### Jose R SAPP, UAX, UMICAO #### [address] [address] Active Directory Administrator: Bret Vazquez MD Performed By: #### CHRISTY MOJICA #### [address] [address] Active Directory Administrator: Bret Vazquez MD WBC (Bld) [#/Vol] 11.1 10*3/uL Normal 3.5-11.3 [facility] Comment on above: Performed By: #### Jose R SAPP, UAX, UMICAO #### [address] [address] Active Directory Administrator: Bret Vazquez MD Performed By: #### E RTKLARISSA HIGGINSEG #### [facility] [employer] [address] [place] [address] 55070 Active Directory Administrator: Bret Vazquez MD Abs. Basophil 0.04 k/uL Normal 0.00-0.20 [facility] Comment on above: Performed By: #### I OCAL, CDP, MG, LACTIC, ALICIA, BNP, BMP #### [address] [address] Active Directory Administrator: Bret Vazquez MD Performed By: #### E RTPF, CK, ECENZ, VD25 #### [address] [address] Active Directory Administrator: Bret Vazquez MD Abs.Imm.Granulocyte 0.07 k/uL Normal 0.00-0.30 [facility] Comment on above: Performed By: #### I OCAL, CDP, MG, LACTIC, ALICIA, BNP, BMP #### [address] [address] Active Directory Administrator: Bret Vazquez MD Performed By: #### E RTPF, CK, ECENZ, VD25 #### [place] [address] Active Directory Administrator: Bret Vazquez MD Abs.Neutrophil (Seg) 13.83 k/uL High 1.50-8.10 [facility] Comment on above: Performed By: #### I OCAL, CDP, MG, LACTIC, ALICIA, BNP, BMP #### [address] [address] Active Directory Administrator: Bret Vazquez MD Performed By: #### E RTPF, CK, ECENZ, VD25 #### [address] [address] Active Directory Administrator: Bret Vazquez MD Basophils/100 WBC (Bld) 0 % Normal 0-2 [facility] Comment on above: Performed By: #### I OCAL, CDP, MG, LACTIC, ALICIA, BNP, BMP #### [address] [address] Active Directory Administrator: Bret Vazquez MD Performed By: #### E RTPF, CK, ECENZ, VD25 #### [address] [address] Active Directory Administrator: Bret Vazquez MD Eosinophils (Bld) [#/Vol] 0.07 10*3/uL Normal 0.00-0.44 [facility] Comment on above: Performed By: #### I OCAL, CDP, MG, LACTIC, ALICIA, BNP, BMP #### [facility] [employer] [address] [place] [address] 10005 Active Directory Administrator: Bret Vazquez MD Performed By: #### E RTPF, CK, ECENZ, VD25 #### [facility] [employer] [address] [place] [address] Active Directory Administrator: Bret Vazquez MD Eosinophils/100 WBC (Bld) 0 % Low 1-4 [facility] Comment on above: Performed By: #### I OCAL, CDP, MG, LACTIC, ALICIA, BNP, BMP #### [facility] [employer] [address] [place] [address] Active Directory Administrator: Bret Vazquez MD Performed By: #### E RTPF, CK, ECENZ, VD25 #### [facility] [employer] [address] [place] [address] 27027 Active Directory Administrator: Bret Vazquez MD Erythrocyte distribution width (RBC) [Ratio] 16.4 % High 11.8-14.4 [facility] Comment on above: Performed By: #### I OCAL, CDP, MG, LACTIC, ALICIA, BNP, BMP #### [facility] [employer] [address] [place] [address] 42009 Active Directory Administrator: Bret Vazquez MD Performed By: #### E RTPF, CK, ECENZ, VD25 #### [facility] [employer] [address] [place] [address] 73029 Active Directory Administrator: Bret Vazquez MD Hematocrit (Bld) [Volume fraction] 33.2 % Low 40.7-50.3 [facility] Comment on above: Performed By: #### I OCAL, CDP, MG, LACTIC, ALICIA, BNP, BMP #### [facility] [employer] [address] [place] [address] 85610 Active Directory Administrator: Bret Vazquez MD Performed By: #### E RTPF, CK, ECENZ, VD25 #### [facility] [employer] [address] [place] [address] 16994 Active Directory Administrator: Bret Vazquez MD Hemoglobin (Bld) [Mass/Vol] 11.1 g/dL Low 13.0-17.0 [facility] Comment on above: Performed By: #### I OCAL, CDP, MG, LACTIC, ALICIA, BNP, BMP #### [facility] [employer] [address] [place] [address]13 Active Directory Administrator: Bret Vazquez MD Performed By: #### E RTPF, CK, ECENZ, VD25 #### [facility] [employer] [address] [place] [address] 46924 Active Directory Administrator: Bret Vazquez MD Immature granulocytes/100 WBC (Bld) 0 % Normal 0 [facility] Comment on above: Performed By: #### I OCAL, CDP, MG, LACTIC, ALICIA, BNP, BMP #### [facility] [employer] [address] [place] [address] 6[address]15 Active Directory Administrator: Bret Vazquez MD Performed By: #### E RTPF, CK, ECENZ, VD25 #### [facility] [employer] [address] [place] [address] 84027 Active Directory Administrator: Bret Vazquez MD Lymphocytes (Bld) [#/Vol] 1.05 10*3/uL Low 1.10-3.70 [facility] Comment on above: Performed By: #### I OCAL, CDP, MG, LACTIC, ALICIA, BNP, BMP #### [facility] [employer] [address] [place] [address] 53296 Active Directory Administrator: Bret Vazquez MD Performed By: #### E RTPF, CK, ECENZ, VD25 #### [address] [address] Active Directory Administrator: Bret Vazquez MD Lymphocytes/100 WBC (Bld) 6 % Low 24-43 [facility] Comment on above: Performed By: #### I OCAL, CDP, MG, LACTIC, ALICIA, BNP, BMP #### [address] [address] Active Directory Administrator: Bret Vazquez MD Performed By: #### E RTPF, CK, ECENZ, VD25 #### [address] [address] Active Directory Administrator: Bret Vazquez MD MCH (RBC) [Entitic mass] 31.5 pg Normal 25.2-33.5 [facility] Comment on above: Performed By: #### I OCAL, CDP, MG, LACTIC, ALICIA, BNP, BMP #### [address] [address] Active Directory Administrator: Bret Vazquez MD Performed By: #### E RTPF, CK, ECENZ, VD25 #### [address] [address] Active Directory Administrator: Bret Vazquez MD MCHC (RBC) [Mass/Vol] 33.4 g/dL Normal 28.4-34.8 [facility] Comment on above: Performed By: #### I OCAL, CDP, MG, LACTIC, ALICIA, BNP, BMP #### [address] [address] Active Directory Administrator: Bret Vazquez MD Performed By: #### E RTPF, CK, ECENZ, VD25 #### [facility] [employer] [address] [place] [address] 06802 Active Directory Administrator: Bret Vazquez MD MCV (RBC) [Entitic vol] 94.3 fL Normal 82.6-102.9 [facility] Comment on above: Performed By: #### I OCAL, CDP, MG, LACTIC, ALICIA, BNP, BMP #### [address] [address] Active Directory Administrator: Bret Vazquez MD Performed By: #### E RTPF, CK, ECENZ, VD25 #### [address] [address] Active Directory Administrator: Bret Vazquez MD Monocytes (Bld) [#/Vol] 1.34 10*3/uL High 0.10-1.20 [facility] Comment on above: Performed By: #### I OCAL, CDP, MG, LACTIC, ALICIA, BNP, BMP #### [address] [address] Active Directory Administrator: Bret Vazquez MD Performed By: #### E RTPF, CK, ECENZ, VD25 #### [address] [address] Active Directory Administrator: Bret Vazquez MD Monocytes/100 WBC (Bld) 8 % Normal 3-12 [facility] Comment on above: Performed By: #### I OCAL, CDP, MG, LACTIC, ALICIA, BNP, BMP #### [address] [address] Active Directory Administrator: Bret Vazquez MD Performed By: #### E RTPF, CK, ECENZ, VD25 #### [address] [address] Active Directory Administrator: Bret Vazquez MD Neutrophil (Seg) 84 % High 36-65 [facility] Comment on above: Performed By: #### I OCAL, CDP, MG, LACTIC, ALICIA, BNP, BMP #### [address] [address] Active Directory Administrator: Bret Vazquez MD Performed By: #### E RTPF, CK, ECENZ, VD25 #### [address] [address] Active Directory Administrator: Bret Vazquez MD NRBC Automated 0.0 per 100 WBC Normal 0.0 [facility] Comment on above: Performed By: #### I OCAL, CDP, MG, LACTIC, ALICIA, BNP, BMP #### [address] [address] Active Directory Administrator: Bret Vazquez MD Performed By: #### E RTPF, CK, ECENZ, VD25 #### [address] [address] Active Directory Administrator: Bret Vazquez MD Platelet mean volume (Bld) [Entitic vol] 10.2 fL Normal 8.1-13.5 [facility] Comment on above: Performed By: #### I OCAL, CDP, MG, LACTIC, ALICIA, BNP, BMP #### [address] [address] Active Directory Administrator: Bret Vazquez MD Performed By: #### E RTPF, CK, ECENZ, VD25 #### [address] [address] Active Directory Administrator: Bret Vazquez MD Platelets (Bld) [#/Vol] 283 10*3/uL Normal 138-453 [facility] Comment on above: Performed By: #### I OCAL, CDP, MG, LACTIC, ALICIA, BNP, BMP #### [address] [address] Active Directory Administrator: Bret Vazquez MD Performed By: #### E RTPF, CK, ECENZ, VD25 #### [address] [address] Active Directory Administrator: Bret Vazquez MD RBC (Bld) [#/Vol] 3.52 10*6/uL Low 4.21-5.77 [facility] Comment on above: Performed By: #### I OCAL, CDP, MG, LACTIC, ALICIA, BNP, BMP #### [address] [address] Active Directory Administrator: Bret Vazquez MD Performed By: #### E RTPF, CK, ECENZ, VD25 #### [address] [address] Active Directory Administrator: Bret Vazquez MD RBC morphology finding Nom (Bld) ANISOCYTOSIS PRESENT Normal [facility] Comment on above: Performed By: #### I OCAL, CDP, MG, LACTIC, LAICIA, BNP, BMP #### [address] [address] Active Directory Administrator: Bret Vazquez MD Performed By: #### E RTPF, CK, ECENZ, VD25 #### [address] [address] Active Directory Administrator: Bret Vazquez MD WBC (Bld) [#/Vol] 16.4 10*3/uL High 3.5-11.3 [facility] Comment on above: Performed By: #### I OCAL, CDP, MG, LACTIC, ALICIA, BNP, BMP #### [address] [address] Active Directory Administrator: Bret Vazquez MD Performed By: #### E RTPF, CK, ECENZ, VD25 #### [facility] [employer] [address] [place] [address]23 Active Directory Administrator: Bret Vazquez MD CT 3D RECONSTRUCTIONon 09-06 [...] Dallin Pineda MD 09/06/22 Final result Normal [facility] CT ANKLE LEFT WO CONTRASTon 09-06-2022 CT [...] Dallin Pineda MD 09/06/22 Final result Normal [facility] Calcium, Ionicon 09-06-2022 Calcium [Moles/Vol] 1.16 mmol/L Normal 1.13-1.33 [facility] Comment on above: Performed By: #### B MPX, CDP #### [facility] [employer] [address] [place] [address] Active Directory Administrator: Bret Vazquez MD Performed By: #### B MP, CDP, IOCAL, LACTIC, ALICIA, MG #### [address] [address] Active Directory Administrator: Bret Vazquez MD Calcium [Moles/Vol] 1.17 mmol/L Normal 1.13-1.33 [facility] Comment on above: Performed By: #### Jose R SAPP UAX, UMICAO #### [facility] [employer] [address] [place] [address]45 Active Directory Administrator: Bret Vazquez MD Performed By: #### E RTPF, CK, ECENZ, VD25 #### [facility] [employer] [address] [place] [address] 98914 Active Directory Administrator: Bret Vazquez MD Calcium [Moles/Vol] 0.98 mmol/L Low 1.13-1.33 [facility] Comment on above: Performed By: #### I OCAL, CDP, MG, LACTIC, ALICIA, BNP, BMP #### [facility] [employer] [address] [place] [address] 15448 Active Directory Administrator: Bret Vazquez MD Performed By: #### E RTPF, CK, ECENZ, VD25 #### [facility] [employer] [address] [place] [address] 59039 Active Directory Administrator: Bret Vazquez MD Drug Scr, Abuse, Uron 2021 Amphetamine(s),Ur Negative Normal NEG [facility] Comment on above: Result Comment: (Positive cutoff 1000 ng/mL) Performed By: #### Jose R SAPP UAX, UMICAO #### [facility] [employer] [address] [place] [address] 34280 Active Directory Administrator: Bret Vazquez MD Performed By: #### E RTPF, CK, ECENZ, VD25 #### [facility] [employer] [address] [place] [address] 91350 Active Directory Administrator: Bret Vazquez MD Barbiturate(s),Ur Negative Normal NEG [facility] Comment on above: Result Comment: (Positive cutoff 200 ng/mL) Performed By: #### Jose R SAPP, DONATOX, UMICAO #### [facility] [address] [place] [address] 78762 Active Directory Administrator: Bret Vazquez MD Performed By: #### E RTPF, CK, ECENZ, VD25 #### [facility] [address] [place] [address] 10225 Active Directory Administrator: Bret Vazquez MD Benzodiazepine(s) Negative Normal NEG [facility] Comment on above: Result Comment: (Positive cutoff 200 ng/mL) Performed By: #### Jose R SAPP, UAX, UMICAO #### [facility] [employer] [address] [place] [address] 02098 Active Directory Administrator: Bret Vazquez MD Performed By: #### E RTPF, CK, ECENZ, VD25 #### [facility] [employer] [address] [place] [address] 23541 Active Directory Administrator: Bret Vazquez MD Cannabinoid(s),Ur Negative Normal NEG [facility] Comment on above: Result Comment: (Positive cutoff 50 ng/mL) Performed By: #### GINI STARKS, UMICAO #### [facility] [employer] [address] [place] [address] 05354 Active Directory Administrator: Bret Vazquez MD Performed By: #### E RTPF, CK, ECENZ, VD25 #### [facility] [address] [place] [address] 55287 Active Directory Administrator: Bret Vazquez MD Cocaine Metabolite Negative Normal NEG [facility] Comment on above: Result Comment: (Positive cutoff 300 ng/mL) Performed By: #### Jose R SAPP, UAX, UMICAO #### [facility] [employer] [address] [place] [address] 63406 Active Directory Administrator: Bret Vazquez MD Performed By: #### E RTPF, CK, ECENZ, VD25 #### [facility] [employer] [address] [place] [address] 32007 Active Directory Administrator: Bret Vazquez MD Fentanyl, Urine Positive Abnormal NEG [facility] Comment on above: Result Comment: (Positive cutoff 5 ng/ml) Performed By: #### Jose R SAPP UAX, UMICAO #### [facility] [employer] [address] [place] [address] 34894 Active Directory Administrator: Bret Vazquez MD Performed By: #### E RTPF, CK, ECENZ, VD25 #### [address] [address] Active Directory Administrator: Bret Vazquez MD Interpretive Info Assay provides medic al screening only. The absence of expected drug(s) and/or Normal [facility] Comment on above: Result Comment: meta bolite(s) may indicate diluted or adulterated urine, limitations of testing or timing of collection. Testing for legal purposes should be confirmed by another method. To request confirmation of test result, please call the lab within 7 days of sample submission. Performed By: #### DONATO STARKSX, UMICAO #### [facility] [employer] [address] [place] [address] 18857 Active Directory Administrator: Bret Vazquez MD Performed By: #### E RTPF, CK, ECENZ, VD25 #### [facility] [address] [place] [address] 230[address] Active Directory Administrator: Bret Vazquez MD Methadone Ql (U) Negative Normal NEG [facility] Comment on above: Result Comment: (Positive cutoff 300 ng/mL) Performed By: #### Jose R AU UAX, UMICAO #### [facility] [employer] [address] [place] [address] 20132 Active Directory Administrator: Bret Vazquez MD Performed By: #### E RTPF, CK, ECENZ, VD25 #### [facility] [address] [place] [address] 50197 Active Directory Administrator: Bret Vazquez MD Opiate(s), Ur Negative Normal NEG [facility] Comment on above: Result Comment: (Positive cutoff 300 ng/mL) Performed By: #### D AU, UAX, UMICAO #### [address] [address] Active Directory Administrator: Bret Vazquez MD Performed By: #### E RTPF, CK, ECENZ, VD25 #### [address] [address] Active Directory Administrator: Bret Vazquez MD Oxycodone, Urine Negative Normal NEG [facility] Comment on above: Result Comment: (Positive cutoff 100 ng/mL) Performed By: #### D AU, UAX, UMICAO #### [address] [address] Active Directory Administrator: Bret Vazquez MD Performed By: #### E RTPF, CK, ECENZ, VD25 #### [address] [address] Active Directory Administrator: Bret Vazquez MD Phencyclidine, Ur Negative Normal NEG [facility] Comment on above: Result Comment: (Positive cutoff 25 ng/mL) Performed By: #### D AU, UAX, UMICAO #### [address] [address] Active Directory Administrator: Bret Vazquez MD Performed By: #### E RTPF, CK, ECENZ, VD25 #### [facility] [employer] [address] [place] [address] 58572 Active Directory Administrator: Bret Vazquez MD FLUORO FOR SURGICAL PROCEDUR ESon 09-06-2022 FLUORO FOR SURGICAL PROCEDURES Radiology exam is complete. No Radiologist dictation. Please follow up with ordering provider. Final result Normal [facility] Gl Hemostasis TEG w/Lysison 09-06-2022 Fibrinogen, Func TEG 22.5 mm Normal 15.0-32.0 [facility] Comment on above: Performed By: #### B MPX, CDP #### [address] [address] Active Directory Administrator: Bret Vazquez MD Performed By: #### E RTPF, GHLTEG #### [address] [address] Active Directory Administrator: Bret Vazquez MD LY30 (Lysis) TEG 0.4 % Normal 0.0-2.6 [facility] Comment on above: Performed By: #### B MPX, CDP #### [address] [address] Active Directory Administrator: Bret Vazquez MD Performed By: #### E RTPF GHLTEG #### [address] [address] Active Directory Administrator: Bret Vazquez MD MA Rapid TEG 64.5 mm Normal 52.0-70 [facility] Comment on above: Performed By: #### B MPX, CDP #### [address] [address] Active Directory Administrator: Bret Vazquez MD Performed By: #### E RTPF GHLTEG #### [address] [address]696 Active Directory Administrator: Bret Vazquez MD R(Reaction Time) TEG 8.0 min Normal 4.6-9.1 [facility] Comment on above: Performed By: #### B MPX, CDP #### [address] [address] Active Directory Administrator: Bret Vazquez MD Performed By: #### E RTPF, GHLTEG #### [address] [address] Active Directory Administrator: Bret Vazquez MD Hgb/Hcton 09-06-2022 Hematocrit (Bld) [Volume fraction] 28.2 % Low 40.7-50.3 [facility] Comment on above: Performed By: #### B MPX, CDP #### [facility] [employer] [address] [place] [address] 20035 Active Directory Administrator: Bret Vazquez MD Performed By: #### H H #### [facility] [employer] [address] [place] [address] 70219 Active Directory Administrator: Bret Vazquez MD Hemoglobin (Bld) [Mass/Vol] 9.3 g/dL Low 13.0-17.0 [facility] Comment on above: Performed By: #### B MPX, CDP #### [facility] [employer] [address] [place] [address]114 Active Directory Administrator: Bret Vazquez MD Performed By: #### H H #### [facility] [employer] [address] [place] [address] 84864 Active Directory Administrator: Bret Vazquez MD Lactic Acidon 09-06-2022 Lactic Acid,Whole Bl 1.7 mmol/L Normal 0.7-2.1 [facility] Comment on above: Performed By: #### B MPX, CDP #### [facility] [employer] [address] [place] [address] 93793 Active Directory Administrator: Bret Vazquez MD Performed By: #### E RTPF, GHLTEG #### [facility] [employer] [address] [place] [address] 18408 Active Directory Administrator: Bret Vazquez MD Lactic Acid,Whole Bl 0.8 mmol/L Normal 0.7-2.1 [facility] Comment on above: Performed By: #### D AU, UAX, UMICAO #### [facility] [employer] [address] [place] [address] 96672 Active Directory Administrator: Bret Vazquez MD Performed By: #### E RTPF, CK, ECENZ, VD25 #### [facility] [address] [place] [address] Active Directory Administrator: Bret Vazquez MD Lactic Acid,Whole Bl 1.3 mmol/L Normal 0.7-2.1 [facility] Comment on above: Performed By: #### I OCAL, CDP, MG, LACTIC, ALICIA, BNP, BMP #### [facility] [address] [place] [address] Active Directory Administrator: Bret Vazquez MD Performed By: #### E RTPF, CK, ECENZ, VD25 #### [facility] [address] [place] [address]171 Active Directory Administrator: Bret Vazquez MD Magnesiumon 09-06-2022 Magnesium [Mass/Vol] 1.8 mg/dL Normal 1.6-2.6 [facility] Comment on above: Performed By: #### D SENAIT, UAX, UMICAO #### [facility] [address] [place] [address] 6[address]23 Active Directory Administrator: Bret Vazquez MD Performed By: #### Isidro RTKLARISSA HIGGINSEG #### [facility] [address] [place] [address]60 Active Directory Administrator: Bret Vazquez MD Magnesium [Mass/Vol] 2.3 mg/dL Normal 1.6-2.6 [facility] Comment on above: Performed By: #### D SENAIT, UAX, UMICAO #### [facility] [address] [place] [address] Active Directory Administrator: Bret Vazquez MD Performed By: #### Isidro RTKLARISSA HIGGINSEG #### [facility] [address] [place] [address]872 Active Directory Administrator: Bret Vazquez MD Magnesium [Mass/Vol] 1.7 mg/dL Normal 1.6-2.6 [facility] Comment on above: Performed By: #### I OCAL, CDP, MG, LACTIC, ALICIA, BNP, BMP #### [facility] [employer] [address] [place] [address] Active Directory Administrator: Bret Vazquez MD Performed By: #### E RTPF, CK, ECENZ, VD25 #### [place] [address] Active Directory Administrator: Bret Vazquez MD PTon 09-06-2022 INR Coag (PPP) [Relative time] 1.6 {INR} Normal [facility] Comment on above: Result Comment: Therapeutic Range: Moderate Anticoagulant Intensity: INR = 2.0-3.0 High Anticoagulant Intensity: INR = 2.5-3.5 Performed By: #### I OCAL, CDP, MG, LACTIC, ALICIA, BNP, BMP #### [place] [address] Active Directory Administrator: Bret Vazquez MD Performed By: #### E RTPF, CK, ECENZ, VD25 #### [facility] [employer] [address] [place] [address] Active Directory Administrator: Bret Vazquez MD PT Coag (PPP) [Time] 16.5 s High 9.1-12.3 [facility] Comment on above: Performed By: #### I OCAL, CDP, MG, LACTIC, ALICIA, BNP, BMP #### [facility] [employer] [address] [place] [address] Active Directory Administrator: Bret Vazquez MD Performed By: #### E RTPF, CK, ECENZ, VD25 #### [facility] [employer] [address] [place] [address] Active Directory Administrator: Bret Vazquez MD Phosphorus, Inorg.on 022 Phosphorus, Inorg. 4.0 mg/dL Normal 2.5-4.5 [facility] Comment on above: Performed By: #### D AU, UAX, UMICAO #### [address] [address] Active Directory Administrator: Bret Vazquez MD Performed By: #### E RTPF, GHLTEG #### [address] [address] Active Directory Administrator: Bret Vazquez MD Phosphorus, Inorg. 4.0 mg/dL Normal 2.5-4.5 [facility] Comment on above: Performed By: #### I OCAL, CDP, MG, LACTIC, ALICIA, BNP, BMP #### [address] [address] Active Directory Administrator: Bret Vazquez MD Performed By: #### E RTPF, CK, ECENZ, VD25 #### [address] [address] Active Directory Administrator: Bret Vazquez MD Phosphorus, Inorg. 3.5 mg/dL Normal 2.5-4.5 [facility] Comment on above: Performed By: #### B MPX, CDP #### [address] [address] Active Directory Administrator: Bret Vazquez MD Performed By: #### E RTPF, CK, ECENZ, VD25 #### [address] [address] Active Directory Administrator: Bret Vazquez MD Type + Screenon 09-06-2022 Type + Screen Sample Expiration 09/08/2022,2359 Arm Band Number [id number] ABO/Rh(D) A POSITIVE Antibody Screen NEGATIVE Unit Number [id number] Blood Component Type Leukocyte Reduced Red Cell Unit Division 00 Status of Unit TRANSFUSED Transfusion Status OK TO TRANSFUSE Crossmatch Result COMPATIBLE Unit Number [id number] Blood Component Type Leukocyte Reduced Red Cell Unit Division 00 Status of Unit TRANSFUSED Transfusion Status OK TO TRANSFUSE Crossmatch Result COMPATIBLE Unit Number [id number] Blood Component Type Leukocyte Reduced Red Cell Unit Division 00 Status of Unit TRANSFUSED Transfusion Status OK TO TRANSFUSE Crossmatch Result COMPATIBLE Normal [facility] Comment on above: Performed By: #### B MPX, CDP #### [address] [address] Active Directory Administrator: Bret Vazquez MD Performed By: #### E RTPF, CK, ECENZ, VD25 #### [address] [address] Active Directory Administrator: Bret Vazquez MD UA w/Reflex Cultureon 2021 Bilirubin, SemiQt,Ur Negative Normal NEG [facility] Comment on above: Performed By: #### D AU UAX, UMICAO #### [address] [address] Active Directory Administrator: Bret Vazquez MD Performed By: #### E RTPF, CK, ECENZ, VD25 #### [address] [address] Active Directory Administrator: Bret Vazquez MD Blood, Urine Negative Normal NEG [facility] Comment on above: Performed By: #### Jose R AU, UAX, UMICAO #### [address] [address] Active Directory Administrator: Bret Vazquez MD Performed By: #### E RTPF, CK, ECENZ, VD25 #### [address] [address] Active Directory Administrator: Bret Vazquez MD Clarity (U) Clear Normal CLEAR [facility] Comment on above: Performed By: #### D AU, UAX, UMICAO #### [address] [address] Active Directory Administrator: Bret Vazquez MD Performed By: #### E RTPF, CK, ECENZ, VD25 #### [address] [address] Active Directory Administrator: Bret Vazquez MD Color (U) Yellow Normal YEL [facility] Comment on above: Performed By: #### Jose R AU, UAX, UMICAO #### [address] [address] Active Directory Administrator: Bret Vazquez MD Performed By: #### E RTPF, CK, ECENZ, VD25 #### [address] [address] Active Directory Administrator: Bret Vazquez MD Glucose Ql (U) Negative Normal NEG [facility] Comment on above: Performed By: #### Jose R SAPP, UAX, UMICAO #### [address] [address] Active Directory Administrator: Bret Vazquez MD Performed By: #### E RTPF, CK, ECENZ, VD25 #### [address] [address] Active Directory Administrator: Bret Vazquez MD Ketones Ql (U) Negative Normal NEG [facility] Comment on above: Performed By: #### Jose R SAPP, UAX, UMICAO #### [address] [address] Active Directory Administrator: Bret Vazquez MD Performed By: #### E RTPF, CK, ECENZ, VD25 #### [address] [address] Active Directory Administrator: Bret Vazquez MD Leukocyte esterase Test strip Ql (U) Negative Normal NEG [facility] Comment on above: Performed By: #### D AU, UAX, UMICAO #### [address] [address] Active Directory Administrator: Bret Vazquez MD Performed By: #### E RTPF, CK, ECENZ, VD25 #### [facility] [employer] [address] [place] [address] Active Directory Administrator: Bret Vazquez MD Nitrite,Ur Negative Normal NEG [facility] Comment on above: Performed By: #### Jose R AU, UAX, UMICAO #### [facility] [address] [place] [address]159 Active Directory Administrator: Bret Vazquez MD Performed By: #### E RTPF, CK, ECENZ, VD25 #### [facility] [address] [place] [address]134 Active Directory Administrator: Bret Vazquez MD PH,Ur 5.0 Normal 5.0-8.0 [facility] Comment on above: Performed By: #### Jose R SAPP, UAX, UMICAO #### [facility] [employer] [address] [place] [address] Active Directory Administrator: Bret Vazquez MD Performed By: #### E RTPF, CK, ECENZ, VD25 #### [facility] [employer] [address] [place] [address] Active Directory Administrator: Bret Vazquez MD Protein Ql (U) TRACE Abnormal NEG [facility] Comment on above: Performed By: #### Jose R SAPP, UAX, UMICAO #### [facility] [address] [place] [address]75 Active Directory Administrator: Bret Vazquez MD Performed By: #### E RTPF, CK, ECENZ, VD25 #### [facility] [address] [place] [address] 85086 Active Directory Administrator: Bret Vazquez MD Spec. Zortman,Ur 1.070 High 1.005-1.03 0 [facility] Comment on above: Performed By: #### Jose R AU, UAX, UMICAO #### [facility] [address] [place] [address] 63324 Active Directory Administrator: Bret Vazquez MD Performed By: #### E RTPF, CK, ECENZ, VD25 #### [address] [address] Active Directory Administrator: Bret Vazquez MD Urobilinogen,Ur Normal Normal NORM [facility] Comment on above: Performed By: #### D AU, UAX, UMICAO #### [address] [address] Active Directory Administrator: Bret Vazquez MD Performed By: #### E RTPF, CK, ECENZ, VD25 #### [address] [address] Active Directory Administrator: Bret Vazquez MD Urinalysis,Microon 2 Casts 2 TO 5 HYALINE Normal 0-8 [facility] Comment on above: Result Comment: Refe rence range defined for non-centrifuged specimen. Performed By: #### D AU, UAX, UMICAO #### [facility] [employer] [address] [place] [address] 78817 Active Directory Administrator: Bret Vazquez MD Performed By: #### E RTPF, CK, ECENZ, VD25 #### [facility] [employer] [address] [place] [address] 40466 Active Directory Administrator: Bret Vazquez MD Crystals LM Nom (Urine sed) FEW Abnormal NONE [facility] Comment on above: Result Comment: CALC IUM OXALATE Performed By: #### D AU, UAX, UMICAO #### [facility] [employer] [address] [place] [address] 51564 Active Directory Administrator: Bret Vazquez MD Performed By: #### E RTPF, CK, ECENZ, VD25 #### [facility] [employer] [address] [place] [address] 92486 Active Directory Administrator: Bret Vazquez MD Epithelial cells LM Ql (Urine sed) 2 TO 5 Normal 0-5 [facility] Comment on above: Performed By: #### Jose R AU, UAX, UMICAO #### [facility] [address] [place] [address] 08041 Active Directory Administrator: Bret Vazquez MD Performed By: #### E RTPF, CK, ECENZ, VD25 #### [facility] [address] [place] [address] 15741 Active Directory Administrator: Bret Vazquez MD Urine RBC's 0 TO 2 Normal 0-4 [facility] Comment on above: Result Comment: Refe rence range defined for non-centrifuged specimen. Performed By: #### Jose R SAPP, UAX, UMICAO #### [facility] [address] [place] [address] 64367 Active Directory Administrator: Bret Vazquez MD Performed By: #### E RTPF, CK, ECENZ, VD25 #### [facility] [employer] [address] [place] [address] 61802 Active Directory Administrator: Bret Vazquez MD Urine WBC's 2 TO 5 Normal 0-5 [facility] Comment on above: Performed By: #### Jose R SAPP UAX, UMICAO #### [facility] [address] [place] [address] 35391 Active Directory Administrator: Bret Vazquez MD Performed By: #### E RTPF, CK, ECENZ, VD25 #### [facility] [employer] [address] [place] [address] 28459 Active Directory Administrator: Bret Vazquez MD XR ANKLE LEFT (2 [...] Mau Tomas MD 09/06/22 Final result Normal [facility] XR ANKLE LEFT (MIN 3 VIEWS)o n [...] Bo Jacques MD 09/06/22 Final result Normal [facility] XR ANKLE LEFT (MIN 3 VIEWS) EXAMINATION: [...] by: Mau Tomas MD Signed by: Mau Toams MD 09/06/22 Final result Normal [facility] XR ANKLE LEFT (MIN 3 VIEWS) EXAMINATION: [...] Lizet Gonzalez MD 09/05/22 Final result Normal [facility] XR ELBOW LEFT (MIN 3 VIEWS)o n [...] Los Araujo MD 09/05/22 Final result Normal [facility] XR ELBOW RIGHT (MIN 3 VIEWS) on [...] Lizet Gonzalez MD 09/06/22 Final result Normal [facility] XR FOOT LEFT (MIN 3 VIEWS)on 09-06-2022 [...] Lizet Gonzalez MD 09/06/22 Final result Normal [facility] XR HAND LEFT (MIN 3 VIEWS)on 09-06-2022 [...] Aldo Felix MD 09/05/22 Final result Normal [facility] XR HAND RIGHT (MIN 3 VIEWS)o n [...] moderate osteoarthritis at right 2nd carpometacarpal joint. [id number] osteoarthritis of right distal radioulnar joint. IMPRESSION: No evidence of acute fracture or dislocation in right hand and wrist. 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 Interpreted by: Lizet Gonzalez MD Signed by: Lizet Gonzalez MD 09/06/22 Final result Normal [facility] XR KNEE LEFT (3 VIEWS)on XR KNEE [...] Lizet Gonzalez MD 09/05/22 Final result Normal [facility] XR KNEE RIGHT (1-2 VIEWS)on 09-06-2022 XR [...] Emili Pugh MD 09/06/22 Final result Normal [facility] XR PELVIS (MIN 3 VIEWS)on XR PELVIS [...] Lizet Gonzalez MD 09/06/22 Final result Normal [facility] XR RADIUS ULNA LEFT (2 VIEWS )on [...] Los Araujo MD 09/05/22 Final result Normal [facility] XR RADIUS ULNA RIGHT (2 VIEW S)on [...] Lizet Gonzalez MD 09/06/22 Final result Normal [facility] XR SHOULDER LEFT (MIN 2 VIEW S)on [...] Lizet Gonzalez MD 09/06/22 Final result Normal [facility] XR SHOULDER RIGHT (MIN 2 VIE WS)on [...] Lizet Gonzalez MD 09/06/22 Final result Normal [facility] XR TIBIA FIBULA RIGHT (2 VIE WS)on [...] Emili Pugh MD 09/06/22 Final result Normal [facility] XR WRIST LEFT (MIN 3 VIEWS)o n [...] Aldo Felix MD 09/05/22 Final result Normal [facility] XR WRIST RIGHT (2 VIEWS)on 11-06-2021 XR [...] Aldo Felix MD 09/05/22 Final result Normal [facility] CT CERVICAL SPINE WO CONTRAS Ton 09-05-2022 [...] Los Araujo MD 09/05/22 Final result Normal [facility] CT CHEST ABDOMEN PELVIS W CO NTRASTon [...] called by Dr. Los Araujo to SAMSON Ricky PABLO on 09/05/2022 at 21:06. Interpreted by: Los Araujo MD Signed by: Los Araujo MD 09/05/22 Final result Normal [facility] CT HEAD WO CONTRASTon 2021 CT HEAD [...] Rush Saavedra MD 09/05/22 Final result Normal [facility] CT LUMBAR SPINE TRAUMA RECON STRUCTIONon 09-05-2022 [...] Los Araujo MD 09/05/22 Final result Normal [facility] CT THORACIC SPINE TRAUMA REC ONSTRUCTIONon 09-05-2022 [...] Los Araujo MD 09/05/22 Final result Normal [facility] Creatine Kinaseon 09-05-2022 CK [Catalytic activity/Vol] 139 U/L Normal 39-308 [facility] Comment on above: Performed By: #### D AU, UAX, UMICAO #### [facility] [employer] [address] [place] [address] 58556 Active Directory Administrator: Bret Vazquez MD Performed By: #### E RTPF, CK, ECENZ, VD25 #### [facility] [employer] [address] [place] [address] 12430 Active Directory Administrator: Bret Vazquez MD Trauma Profileon 09-05-2022 Anion gap [Moles/Vol] 11 mmol/L Normal 9-17 [facility] Comment on above: Performed By: #### B MPX, CDP #### [facility] [employer] [address] [place] [address] 89725 Active Directory Administrator: Bret Vazquez MD Performed By: #### E RTPF, GHLTEG #### [facility] [employer] [address] [place] [address] 27873 Active Directory Administrator: Bret Vazquez MD Chloride [Moles/Vol] 100 mmol/L Normal 98-107 [facility] Comment on above: Performed By: #### B MPX, CDP #### [address] [address] Active Directory Administrator: Bret Vazquez MD Performed By: #### E RTPFKLARISSAEG #### [address] [address] Active Directory Administrator: Bret Vazquez MD CO2 [Moles/Vol] 21 mmol/L Normal 20-31 [facility] Comment on above: Performed By: #### B MPX, CDP #### [address] [address] Active Directory Administrator: Bret Vazquez MD Performed By: #### E RTKLARISSA HIGGINSEG #### [address] [address] Active Directory Administrator: Bret Vazquez MD Creatinine [Mass/Vol] 0.71 mg/dL Normal 0.70-1.20 [facility] Comment on above: Performed By: #### B MPX, CDP #### [address] [address] Active Directory Administrator: Bret Vazquez MD Performed By: #### E RTRANDOLPH HIGGINSLTEG #### [facility] [employer] [address] [place] [address] 66935 Active Directory Administrator: Bret Vazquez MD Ethanol [Mass/Vol] mg/dL Normal <10 [facility] Comment on above: Performed By: #### B MPX, CDP #### [address] [address] Active Directory Administrator: Bret Vazquez MD Performed By: #### E RTPFKLARISSAEG #### [address] [id number] Active Directory Administrator: Bret Vazquez MD Ethanol percent <0.010 Normal <0.010 [facility] Comment on above: Performed By: #### B HANK MARIE #### [address] [address] Active Directory Administrator: Bret Vazquez MD Performed By: #### E CHRISTY LOPEZ #### [address] [address] Active Directory Administrator: Bret Vazquez MD GFR/1.73 sq M.predicted among non-blacks MDRD (S/P/Bld) [Vol rate/Area] 60 mL/min/{1.73_m2} Low >60 [facility] Comment on above: Result Comment: Effective Jul [...] affects renal tubular secretion. Performed By: #### HANK ANAND #### [address] [address] Active Directory Administrator: Bret Vazquez MD Performed By: #### E CHRISTY LOPEZ #### [address] [address] Active Directory Administrator: Bret Vazquez MD Glucose [Mass/Vol] 278 mg/dL High 70-99 [facility] Comment on above: Performed By: #### B HANK MARIE #### [address] [address] Active Directory Administrator: Bret Vazquez MD Performed By: #### E CHRISTY LOPEZ #### [address] [address] Active Directory Administrator: Bret Vazquez MD Potassium [Moles/Vol] 3.3 mmol/L Low 3.7-5.3 [facility] Comment on above: Performed By: #### B MPX, CDP #### [address] [address] Active Directory Administrator: Bret Vazquez MD Performed By: #### E RTKLARISSA HIGGINSEG #### [address] [address] Active Directory Administrator: Bret Vazquez MD Sodium [Moles/Vol] 132 mmol/L Low 135-144 [facility] Comment on above: Performed By: #### B MPX, CDP #### [address] [address] Active Directory Administrator: Bret Vazquez MD Performed By: #### E KLARISSA LOPEZEG #### [address] [address] Active Directory Administrator: Bret Vazquez MD Urea nitrogen [Mass/Vol] 10 mg/dL Normal 8- [facility] Comment on above: Performed By: #### B MPPriti, CDP #### [address] [address] Active Directory Administrator: Bret Vazquez MD Performed By: #### E KLARISSA LOPEZEG #### [address] [address] Active Directory Administrator: Bret Vazquez MD Body Temp. 37.0 Normal [facility] Comment on above: Performed By: #### B MPX, CDP #### [address] [address]77 Active Directory Administrator: Bret Vazquez MD Performed By: #### E CHRISTY LOPEZ #### [address] [address] Active Directory Administrator: Bret Vazquez MD Carboxy Hgb 2.3 % Normal 0-5 [facility] Comment on above: Result Comment: Reference Range: Non-Smokers 0-2% Average Smoker 2-4% Heavy Smoker <10% Performed By: #### B MPX, CDP #### [facility] [address] [place] [address] 23564 Active Directory Administrator: Bret Vazquez MD Performed By: #### E RTRANDOLPH HIGGINSLTEG #### [facility] [address] [place] [address] 57886 Active Directory Administrator: Bret Vazquez MD Ethanol [Mass/Vol] mg/dL Normal <10 [facility] Comment on above: Performed By: #### D AU, UAX, UMICAO #### [facility] [address] [place] [address] 39872 Active Directory Administrator: Bret Vazquez MD Performed By: #### E RTPF, CK, ECENZ, VD25 #### [facility] [address] [place] [address] 99478 Active Directory Administrator: Bret Vazquez MD Ethanol percent <0.010 Normal <0.010 [facility] Comment on above: Performed By: #### D AU, UAX, UMICAO #### [facility] [address] [place] [address] 35361 Active Directory Administrator: Bret Vazquez MD Performed By: #### E RTPF, CK, ECENZ, VD25 #### [facility] [address] [place] [address] 65504 Active Directory Administrator: Bret Vazquez MD FIO2 INFORMATION NOT PROVIDED Normal [facility] Comment on above: Performed By: #### B MPX, CDP #### [facility] [address] [place] [address] 68336 Active Directory Administrator: Bret Vazquez MD Performed By: #### E RTPF, GHLTEG #### [facility] [address] [place] [address] 08071 Active Directory Administrator: Bret Vazquez MD HCO3 (Bld) [Moles/Vol] 22.6 mmol/L Low 24-30 [facility] Comment on above: Performed By: #### B MPX, CDP #### [address] [address] Active Directory Administrator: Bret Vazquez MD Performed By: #### E RTPF GHLTEG #### [address] [address]662 Active Directory Administrator: Bret Vazquez MD Negative Base Excess 3.3 mmol/L High 0.0-2.0 [facility] Comment on above: Performed By: #### B MPX, CDP #### [address] [address] Active Directory Administrator: Bret Vazqeuz MD Performed By: #### E RTRONALDO GHEG #### [address] [address] Active Directory Administrator: Bret Vazquez MD Oxygen saturation in Blood 87.4 % High 60.0-85.0 [facility] Comment on above: Performed By: #### B MPX, CDP #### [address] [address] Active Directory Administrator: Bret Vazquez MD Performed By: #### E RTRONALDO GHLTEG #### [facility] [employer] [address] [place] [address] 06703 Active Directory Administrator: Bret Vazquez MD pCO2 47.1 mm Hg Normal 39-55 [facility] Comment on above: Performed By: #### B MPX, CDP #### [facility] [employer] [address] [place] [address] 83268 Active Directory Administrator: Bret Vazquez MD Performed By: #### E RTPF, GHLTEG #### [facility] [address] [place] [address] 17048 Active Directory Administrator: Bret Vazquez MD pH (Bld) 7.303 [pH] Low 7.320-7.42 0 [facility] Comment on above: Performed By: #### B MPX, CDP #### [facility] [address] [place] [address] 45291 Active Directory Administrator: rBet Vazquez MD Performed By: #### E RTPF, GHLTEG #### [facility] [address] [place] [address] 30584 Active Directory Administrator: Bret Vazquez MD pO2 62.0 mm Hg High 30-50 [facility] Comment on above: Performed By: #### B MPX, CDP #### [address] [address] Active Directory Administrator: Bret Vazquez MD Performed By: #### E RTPF, GHLTEG #### [address] [address] Active Directory Administrator: Bret Vazquez MD Anion gap [Moles/Vol] 11 mmol/L Normal 9-17 [facility] Comment on above: Performed By: #### Jose R SAPP, UAX, UMICAO #### [facility] [employer] [address] [place] [address] 05449 Active Directory Administrator: Bret Vazquez MD Performed By: #### E RTPF, CK, ECENZ, VD25 #### [facility] [employer] [address] [place] [address] 28144 Active Directory Administrator: Bret Vazquez MD Chloride [Moles/Vol] 106 mmol/L Normal 98-107 [facility] Comment on above: Performed By: #### D AU, UAX, UMICAO #### [facility] [employer] [address] [place] [address] 19853 Active Directory Administrator: Bret Vazquez MD Performed By: #### E RTPF, CK, ECENZ, VD25 #### [address] [address] Active Directory Administrator: Bret Vazquez MD CO2 [Moles/Vol] 21 mmol/L Normal 20-31 [facility] Comment on above: Performed By: #### Jose R SAPP UAX, UMICAO #### [facility] [address] [place] [address] 18172 Active Directory Administrator: Bret Vazquez MD Performed By: #### E RTPF, CK, ECENZ, VD25 #### [address] [address] Active Directory Administrator: Bret Vazquez MD Creatinine [Mass/Vol] 0.76 mg/dL Normal 0.70-1.20 [facility] Comment on above: Performed By: #### Jose R SAPP UAPriti, UMICAO #### [facility] [employer] [address] [place] [address] 22681 Active Directory Administrator: Bret Vazquez MD Performed By: #### E RTPF, CK, ECENZ, VD25 #### [address] [address]478 Active Directory Administrator: Bret Vazquez MD GFR/1.73 sq M.predicted among non-blacks MDRD (S/P/Bld) [Vol rate/Area] 60 mL/min/{1.73_m2} Low >60 [facility] Comment on above: Result Comment: Effective Jul [...] tubular secretion. Performed By: #### Jose R AU, UAX, UMICAO #### [facility] [address] [place] [address] 19833 Active Directory Administrator: Bret Vazquez MD Performed By: #### E RTPF, CK, ECENZ, VD25 #### [facility] [address] [place] [address] 01338 Active Directory Administrator: Bret Vazquez MD Glucose [Mass/Vol] 113 mg/dL High 70-99 [facility] Comment on above: Performed By: #### Jose R AU, UAX, UMICAO #### [facility] [address] [place] [address] 14946 Active Directory Administrator: Bret Vazquez MD Performed By: #### E RTPF, CK, ECENZ, VD25 #### [facility] [address] [place] [address] 93911 Active Directory Administrator: Bret Vazquez MD Potassium [Moles/Vol] 3.9 mmol/L Normal 3.7-5.3 [facility] Comment on above: Performed By: #### Jose R SAPP, UAX, UMICAO #### [address] [address] Active Directory Administrator: Bret Vazquez MD Performed By: #### E RTPF, CK, ECENZ, VD25 #### [address] [address]177 Active Directory Administrator: Bret Vazquez MD Sodium [Moles/Vol] 138 mmol/L Normal 135-144 [facility] Comment on above: Performed By: #### Jose R AU, UAX, UMICAO #### [facility] [address] [place] [address] 15524 Active Directory Administrator: Bret Vazquez MD Performed By: #### E RTPF, CK, ECENZ, VD25 #### [facility] [address] [place] [address] 90580 Active Directory Administrator: Bret Vazquez MD Urea nitrogen [Mass/Vol] 11 mg/dL Normal 8-23 [facility] Comment on above: Performed By: #### GINI STARKS UMICAO #### [facility] [employer] [address] [place] [address] 46659 Active Directory Administrator: Bret Vazquez MD Performed By: #### E RTPF, CK, ECENZ, VD25 #### [facility] [address] [place] [address] 79149 Active Directory Administrator: Bret Vazquez MD aPTT Coag (Bld) [Time] 26.0 s Normal 20.5-30.5 [facility] Comment on above: Result Comment: IV Heparin Therapy Range: 48.6-77.8 Performed By: #### GINI STARKS, UMICAO #### [address] [address] Active Directory Administrator: Bret Vazquez MD Performed By: #### E RTPF, CK, ECENZ, VD25 #### [facility] [employer] [address] [place] [address] 40912 Active Directory Administrator: Bret Vazquez MD INR Coag (PPP) [Relative time] 2.1 {INR} Normal [facility] Comment on above: Result Comment: Therapeutic Range: Moderate Anticoagulant Intensity: INR = 2.0-3.0 High Anticoagulant Intensity: INR = 2.5-3.5 Performed By: #### GINI STARKS, UMICAO #### [facility] [employer] [address] [place] [address] 05374 Active Directory Administrator: rBet Vazquez MD Performed By: #### E RTPF, CK, ECENZ, VD25 #### [facility] [employer] [address] [place] [address] 31166 Active Directory Administrator: Bret Vazquez MD PT Coag (PPP) [Time] 20.8 s High 9.1-12.3 [facility] Comment on above: Performed By: #### D AU, UAX, UMICAO #### [facility] [address] [place] [address] 41389 Active Directory Administrator: Bret Vazquez MD Performed By: #### E RTPF, CK, ECENZ, VD25 #### [facility] [address] [place] [address] 36035 Active Directory Administrator: Bret Vazquez MD Body Temp. 37.0 Normal [facility] Comment on above: Performed By: #### D AU, UAX, UMICAO #### [facility] [address] [place] [address] 16942 Active Directory Administrator: rBet Vazquez MD Performed By: #### E RTPF, CK, ECENZ, VD25 #### [facility] [address] [place] [address] 39625 Active Directory Administrator: Bret Vazquez MD Carboxy Hgb 0.6 % Normal 0-5 [facility] Comment on above: Result Comment: Reference Range: Non-Smokers 0-2% Average Smoker 2-4% Heavy Smoker <10% Performed By: #### Jose R AU, UAX, UMICAO #### [facility] [address] [place] [address] 35709 Active Directory Administrator: Bret Vazquez MD Performed By: #### E RTPF, CK, ECENZ, VD25 #### [facility] [address] [place] [address] 41242 Active Directory Administrator: Bret Vazquez MD FIO2 INFORMATION NOT PROVIDED Normal [facility] Comment on above: Performed By: #### D AU, UAX, UMICAO #### [facility] [address] [place] [address] 60132 Active Directory Administrator: Bret Vazquez MD Performed By: #### E RTPF, CK, ECENZ, VD25 #### [facility] [address] [place] [address] 96150 Active Directory Administrator: Bret Vazquez MD HCO3 (Bld) [Moles/Vol] 24.8 mmol/L Normal 24-30 [facility] Comment on above: Performed By: #### GINI STARKS, UMICAO #### [address] [address] Active Directory Administrator: Bret Vazquez MD Performed By: #### E RTPF, CK, ECENZ, VD25 #### [address] 14873 Active Directory Administrator: Bret Vazquez MD Negative Base Excess 1.2 mmol/L Normal 0.0-2.0 [facility] Comment on above: Performed By: #### GINI STARKS, UMICAO #### [address] [address]25[address] Active Directory Administrator: Bret Vazquez MD Performed By: #### E RTPF, CK, ECENZ, VD25 #### [address] [address] Active Directory Administrator: Bret Vazquez MD Oxygen saturation in Blood 45.2 % Low 60.0-85.0 [facility] Comment on above: Performed By: #### GINI STARKS, UMICAO #### [address] [address] Active Directory Administrator: Bret Vazquez MD Performed By: #### E RTPF, CK, ECENZ, VD25 #### [facility] [employer] [address] [place] [address] 16515 Active Directory Administrator: Bret Vazquez MD pCO2 49.5 mm Hg Normal 39-55 [facility] Comment on above: Performed By: #### Jose R SAPP UAX, UMICAO #### [address] [address] Active Directory Administrator: Bret Vazquez MD Performed By: #### E RTPF, CK, ECENZ, VD25 #### [facility] [employer] [address] [place] [address] 04649 Active Directory Administrator: Bret Vazquez MD pH (Bld) 7.320 [pH] Normal 7.320-7.42 0 [facility] Comment on above: Performed By: #### Jose R AU, UAX, UMICAO #### [address] [address] Active Directory Administrator: Bret Vazquez MD Performed By: #### E RTPF, CK, ECENZ, VD25 #### [facility] [employer] [address] [place] [address] 80194 Active Directory Administrator: Bret Vazquez MD pO2 27.1 mm Hg Low 30-50 [facility] Comment on above: Performed By: #### Jose R SAPP UAX, UMICAO #### [facility] [employer] [address] [place] [address] 70802 Active Directory Administrator: Bret Vazquez MD Performed By: #### E RTPF, CK, ECENZ, VD25 #### [facility] [employer] [address] [place] [address] Active Directory Administrator: Bret Vazquez MD Erythrocyte distribution width (RBC) [Ratio] 15.9 % High 11.8-14.4 [facility] Comment on above: Performed By: #### Jose R SAPP, UAX, UMICAO #### [facility] [employer] [address] [place] [address] Active Directory Administrator: Bret Vazquez MD Performed By: #### E RTPF, CK, ECENZ, VD25 #### [facility] [employer] [address] [place] [address] Active Directory Administrator: Bret Vazquez MD Hematocrit (Bld) [Volume fraction] 38.2 % Low 40.7-50.3 [facility] Comment on above: Performed By: #### D AU, UAX, UMICAO #### [address] [address] Active Directory Administrator: Bret Vazquez MD Performed By: #### E RTPF, CK, ECENZ, VD25 #### [address] [address] Active Directory Administrator: Bret Vazquez MD Hemoglobin (Bld) [Mass/Vol] 12.3 g/dL Low 13.0-17.0 [facility] Comment on above: Performed By: #### D SENAIT UAX, UMICAO #### [address] [address] Active Directory Administrator: Bret Vazquez MD Performed By: #### E RTPF, CK, ECENZ, VD25 #### [address] [address] Active Directory Administrator: Bret Vazquez MD MCH (RBC) [Entitic mass] 32.1 pg Normal 25.2-33.5 [facility] Comment on above: Performed By: #### GINI STARKS, UMICAO #### [address] [address] Active Directory Administrator: Bret Vazquez MD Performed By: #### E RTPF, CK, ECENZ, VD25 #### [address] [address] Active Directory Administrator: Bret Vazquez MD MCHC (RBC) [Mass/Vol] 32.2 g/dL Normal 28.4-34.8 [facility] Comment on above: Performed By: #### Jose R SAPP UAX, UMICAO #### [address] [address] Active Directory Administrator: Bret Vazquez MD Performed By: #### E RTPF, CK, ECENZ, VD25 #### [facility] [employer] [address] [place] [address]16 Active Directory Administrator: Bret Vazquez MD MCV (RBC) [Entitic vol] 99.7 fL Normal 82.6-102.9 [facility] Comment on above: Performed By: #### Jose R AU, UAX, UMICAO #### [address] [address] Active Directory Administrator: Bret Vazquez MD Performed By: #### E RTPF, CK, ECENZ, VD25 #### [address] [address] Active Directory Administrator: Bret Vazquez MD NRBC Automated 0.0 per 100 WBC Normal 0.0 [facility] Comment on above: Performed By: #### Jose R SAPP, UAX, UMICAO #### [address] [address] Active Directory Administrator: Bret Vazquez MD Performed By: #### E RTPF, CK, ECENZ, VD25 #### [address] [address] Active Directory Administrator: Bret Vazquez MD Platelet mean volume (Bld) [Entitic vol] 10.0 fL Normal 8.1-13.5 [facility] Comment on above: Performed By: #### Jose R SAPP UAX, UMICAO #### [address] [address] Active Directory Administrator: Bret Vazquez MD Performed By: #### E RTPF, CK, ECENZ, VD25 #### [facility] [employer] [address] [place] [address] Active Directory Administrator: Bret Vazquez MD Platelets (Bld) [#/Vol] 307 10*3/uL Normal 138-453 [facility] Comment on above: Performed By: #### Jose R AU, UAX, UMICAO #### [facility] [employer] [address] [place] [address] Active Directory Administrator: Bret Vazquez MD Performed By: #### E RTPF, CK, ECENZ, VD25 #### [facility] [address] [place] [address] Active Directory Administrator: Bret Vazquez MD RBC (Bld) [#/Vol] 3.83 10*6/uL Low 4.21-5.77 [facility] Comment on above: Performed By: #### D AU, UAX, UMICAO #### [facility] [address] [place] [address] Active Directory Administrator: Bret Vazquez MD Performed By: #### E RTPF, CK, ECENZ, VD25 #### [facility] [address] [place] [address] Active Directory Administrator: Bret Vazquez MD WBC (Bld) [#/Vol] 11.5 10*3/uL High 3.5-11.3 [facility] Comment on above: Performed By: #### D AU, UAX, UMICAO #### [facility] [address] [place] [address] Active Directory Administrator: Bret Vazquez MD Performed By: #### E RTPF, CK, ECENZ, VD25 #### [facility] [employer] [address] [place] [address] Active Directory Administrator: Bret Vazquez MD Blood Bank BILL FOR SERVICES PERFORMED Normal [facility] Comment on above: Performed By: #### D AU, UAX, UMICAO #### [facility] [address] [place] [address] Active Directory Administrator: Bret Vazquez MD Performed By: #### E RTPF, CK, ECENZ, VD25 #### [facility] [address] [place] [address]28 Active Directory Administrator: Bret Vazquez MD Trop/Myoglobinon 09-05-2022 Myoglobin [Mass/Vol] 377 ng/mL High 28-72 [facility] Comment on above: Performed By: #### GINI STARKS UMICAO #### [facility] [address] [place] [address] Active Directory Administrator: Bret Vazquez MD Performed By: #### E RTPF, CK, ECENZ, VD25 #### [facility] [address] [place] [address] Active Directory Administrator: Bret Vazquez MD Troponin, High Sens 12 ng/L Normal 0-22 [facility] Comment on above: Result Comment: High Sensitivity Troponin values cannot be compared with other Troponin methodologies. Patients with high levels of Biotin oral intake (i.e >5mg/day) may have falsely decreased Troponin levels. Samples collected within 8 hours of biotin intake may require additional information for diagnosis. Performed By: #### GINI STARKS UMICAO #### [facility] [address] [place] [address] Active Directory Administrator: Bret Vazquez MD Performed By: #### E RTPF, CK, ECENZ, VD25 #### [facility] [address] [place] [address] Active Directory Administrator: Bret Vazquez MD Vitamin D 25 OHon 09-05-2022 Vitamin D 25 OH 37.8 ng/mL Normal >29.9 [facility] Comment on above: Result Comment: Reference Range: Vitamin D status Range Deficiency <20 ng/mL Mild Deficiency 20-30 ng/mL Sufficiency 30-100 ng/mL Toxicity >100 ng/mL Performed By: #### GINI STARKS UMICAO #### [facility] [address] [place] [address] Active Directory Administrator: Bret Vazquez MD Performed By: #### E RTPF, CK, ECENZ, VD25 #### [facility] [address] [place] [address] Active Directory Administrator: Bret Vazquez MD XR TIBIA FIBULA LEFT [...] Los Araujo MD 09/05/22 Final result Normal [facility] Q - CBC (H/H,RBC,INDICES,WBC ,PLT)on 03-11-2022 Erythrocyte distribution width (RBC) [Ratio] 13.7 % Normal 11.0-15.0 [facility] Alumni Relations Manager Comment on above: Order Comment: [facility] performed at: [employer] [facility], [address] [place] [address], [address] [place] [address], [phone], Medical Reviewer: Juan Daniel Cool MDQuest Collection Date/Time: [id number] Results Received Date/Time: [id number] Reported Date/Time: [id number] Performed By: #### T SH, CMP, LIPD #### [facility] [address] [place], [place] [id number] Hematocrit (Bld) [Volume fraction] 42.5 % Normal 38.5-50.0 [facility]umni Relations Manager Comment on above: Order Comment: [facility] performed at: [employer] [employer] [facility], [address] [facility], [address] [place] [address], [phone], Medical Reviewer: Juan Daniel Cool MDQuest Collection Date/Time: Results Received Date/Time: [id number] Reported Date/Time: Performed By: #### T NELY, CMP, LIPD #### [facility] [address] [place], [place] [id number] Hemoglobin (Bld) [Mass/Vol] 14.3 g/dL Normal 13.2-17.1 [facility] Alumni Relations Manager Comment on above: Order Comment: [facility] performed at: [employer] [facility], [address] [place] [address], [address] [place] [address], [address] [place] [address], Medical Reviewer: Juan Daniel Cool MDQuest Collection Date/Time: Results Received Date/Time: [id number] Reported Date/Time: Performed By: #### T NELY, CMP, LIPD #### [facility] [address] [place], [place] [id number] MCH (RBC) [Entitic mass] 32.9 pg Normal 27.0-33.0 [facility] Alumni Relations Manager Comment on above: Order Comment: [facility] performed at: [employer] [facility], [address] [place] [address], [address] [place] [address], [address] [place] [address], Medical Reviewer: Juan Daniel Mckeon Collection Date/Time: [id number] Results Received Date/Time: [id number] Reported Date/Time: Performed By: #### T SH, CMP, LIPD #### [facility] [address] [place], [place] [id number] MCHC (RBC) [Mass/Vol] 33.6 g/dL Normal 32.0-36.0 [facility] Comment on above: Order Comment: [facility] performed at: [employer] [facility], [address] [place] [address], [address] [place] [address], [phone], Medical Reviewer: Juan Daniel Mckeon Collection Date/Time: Results Received Date/Time: [id number] Reported Date/Time: Performed By: #### T SH, CMP, LIPD #### [facility] [address] [place], [place] [id number] MCV (RBC) [Entitic vol] 97.9 fL Normal 80.0-100.0 [facility] Comment on above: Order Comment: [facility] performed at: [employer] [employer] [facility], [address] [facility], [address] [place] [address], [phone], Medical Reviewer: Juan Daniel Mckeon Collection Date/Time: Results Received Date/Time: Reported Date/Time: Performed By: #### T SH, CMP, LIPD #### [facility] [address] [place], [place] [id number] Platelet mean volume (Bld) [Entitic vol] 11.0 fL Normal 7.5-12.5 [facility] Alumni Relations Manager Comment on above: Order Comment: [facility] performed at: [employer] [facility], [address] [place] [address], [address] [place] [address], [address] [place] [address], Medical Reviewer: Juan Daniel Mckeon Collection Date/Time: Results Received Date/Time: Reported Date/Time: Performed By: #### T SH, CMP, LIPD #### [facility] [address] [place], [place] [id number] Platelets (Bld) [#/Vol] 398 10*3/uL Normal 140-400 [facility] Specialist Comment on above: Order Comment: [facility] performed at: [employer] [facility], [address] [place] [address], [address] [place] [address], [address] [place] [address], Medical Reviewer: Juan Daniel Mckeon Collection Date/Time: Results Received Date/Time: Reported Date/Time: Performed By: #### T SH, CMP, LIPD #### [facility] [address] [place], [place] [id number] RBC (Bld) [#/Vol] 4.34 10*6/uL Normal 4.20-5.80 Ralph felipe [place] Alumni Relations Manager Comment on above: Order Comment: [facility] performed at: [employer] [facility], [address] [facility], [address] [place] [address], [address] [place] [address], Medical Reviewer: Juan Daniel Mckeon Collection Date/Time: [id number] Results Received Date/Time: [id number] Reported Date/Time: Performed By: #### T SH, CMP, LIPD #### [facility] [address] [place], [place] [id number] WBC (Bld) [#/Vol] 9.7 10*3/uL Normal 3.8-10.8 Brigitte mcarthur [place] Alumni Relations Manager Comment on above: Order Comment: [facility] performed at: [employer] [employer] [facility], [address] [facility], [address] [place] [address], [address] [place] [address], Medical Reviewer: Juan Daniel Cool MDQuest Collection Date/Time: [id number] Results Received Date/Time: [id number] Reported Date/Time: Performed By: #### T SH, CMP, LIPD #### [facility] [address] [place], [place] [id number] Comprehensive Metabolic Pane [facility] 03-08-2022 Albumin [Mass/Vol] 3.2 g/dL Low 3.6-5.1 Brigitte mcarthur [place] Alumni Relations Manager Comment on above: Performed By: #### T SH, CMP, LIPD #### [facility] [address] [place], [place] [id number] Albumin/Globulin [Mass ratio] 1.2 {ratio} Normal 1.0-2.5 [facility] Alumni Relations Manager Comment on above: Performed By: #### T SH, CMP, LIPD #### [facility] [address] [place], [place] [id number] ALP [Catalytic activity/Vol] 100 U/L Normal 40-129 [place] [facility] Relations Manager Comment on above: Performed By: #### T SH, CMP, LIPD #### [facility] [address] [facility] [place] [id number] ALT [Catalytic activity/Vol] 11 U/L Normal 9-[address] [facility] Comment on above: Result Comment: 09/23 Female reference range changed. Performed By: #### T SH, CMP, LIPD #### [facility] [address] [facility] [place] [id number] Anion gap [Moles/Vol] 18 mmol/L Normal 12-20 [facility] Comment on above: Result Comment: Effe ctive 10/29/2019 reference range changed. Performed By: #### T SH, CMP, LIPD #### [facility] [address] [place], [place] [id number] AST [Catalytic activity/Vol] 14 U/L Normal 10-[address] [facility] Comment on above: Performed By: #### T SH, CMP, LIPD #### [facility] [address] [place], [place] [id number] Bilirubin [Mass/Vol] 1.17 mg/dL Normal 0.30-1.20 [facility] Comment on above: Performed By: #### T SH, CMP, LIPD #### [facility] [address] [place], [place] [id number] BUN/CREA 14 Ratio Normal 6-[address] [facility] Comment on above: Performed By: #### T SH, CMP, LIPD #### [facility] [address] [place], [place] [id number] Calcium [Mass/Vol] 8.3 mg/dL Low 8.6-10.2 [facility] Comment on above: Performed By: #### T SH, CMP, LIPD #### [facility] [address] [facility] [place] [id number] Chloride [Moles/Vol] 103 mmol/L Normal 98-107 [facility] Comment on above: Performed By: #### T SH, CMP, LIPD #### [facility] [address] [facility] [id number] CO2 [Moles/Vol] 25 mmol/L Normal 20-31 [facility] Special[facility] Comment on above: Performed By: #### T SH, CMP, LIPD #### [facility] [address] [place], [place] [id number] Creatinine [Mass/Vol] 0.8 mg/dL Normal 0.7-1.4 [facility] Specialist Comment on above: Performed By: #### T SH, CMP, LIPD #### [facility] [address] [place], [place] [id number] eGFRAA 118 mL/min/1.73m2 Normal >60 [facility] Specialist Comment on above: Performed By: #### T SH, CMP, LIPD #### [facility] [address] [place], [place] [id number] eGFRNAA 97 mL/min/1.73m2 Normal >60 [facility] Comment on above: Performed By: #### T SH, CMP, LIPD #### [facility] [address] [place], [place] [id number] Globulin (S) [Mass/Vol] 2.6 g/dL Normal 1.9-3.7 [facility] Specialist Comment on above: Performed By: #### T SH, CMP, LIPD #### [facility] [address] [place], [place] [id number] Glucose [Mass/Vol] 110 mg/dL High 65-99 [facility] Comment on above: Result Comment: For FASTING Glucose --- ADA reference ranges: Normal 65-99 mg/dl Prediabetes 100-125 Diabetes >/= 126 Performed By: #### T SH, CMP, LIPD #### [facility] [address] [place], [place] [id number] Potassium [Moles/Vol] 3.5 mmol/L Normal 3.5-5.5 [facility] Specialist Comment on above: Performed By: #### T SH, CMP, LIPD #### [facility] [address] [place], [place] [id number] Protein [Mass/Vol] 5.8 g/dL Low 6.1-8.1 Brigitte mcarthur [place] Alumni Relations Manager Comment on above: Performed By: #### T SH, CMP, LIPD #### [facility] [address] [place], [place] [id number] Sodium [Moles/Vol] 142 mmol/L Normal 135-146 [facility] Comment on above: Performed By: #### T SH, CMP, LIPD #### [facility] [address] [place], [place] [id number] Urea nitrogen [Mass/Vol] 11 mg/dL Normal 7-[address] [facility] Comment on above: Performed By: #### T SH, CMP, LIPD #### [facility] [address] [place], [place] [id number] Lipid Panelon 03-08-2022 Cholesterol [Mass/Vol] 177 mg/dL Normal 125-200 No [facility] Comment on above: Result Comment: Low risk < 200mg/dL Borderline risk 201-239 mg/dl High risk > or equal to 240 Performed By: #### T NELY, CMP, LIPD #### [facility] [address] [place], [place] [id number] Cholesterol in HDL [Mass/Vol] 87 mg/dL Normal >40 [facility] Comment on above: Result Comment: High Cardiovascular Risk HDL <40 mg/dL Low Cardiovascular Risk HDL > or equal to 60 mg/dl Performed By: #### T NELY, CMP, LIPD #### [facility] [address] [place], [place] [id number] Cholesterol in LDL [Mass/Vol] 64 mg/dL Normal [facility] Comment on above: Result Comment: LDL ATP III CLASSIFICATION LDL less than 100 mg/dl Optimal LDL 100-129 mg/dl Near or above optimal LDL 130-159 Borderline high LDL 160-189 High LDL greater than 189 mg/dl Very High Performed By: #### T SH, CMP, LIPD #### [facility] [address] [place], [place] [id number] Cholesterol in VLDL [Mass/Vol] 26 mg/dL Normal [facility] Comment on above: Performed By: #### T SH, CMP, LIPD #### [facility] [address] [place], [place] [id number] Cholesterol.total/Choles terol in HDL [Mass ratio] 2 {ratio} Normal [facility] Comment on above: Performed By: #### T SH, CMP, LIPD #### [facility] [address] [place], [place] [id number] Triglyceride [Mass/Vol] 131 mg/dL Normal 30-150 [facility] Comment on above: Result Comment: TRIG ATPIII CLASSIFICATIONS TRIG less than 150 mg/dl Normal TRIG 150-199 mg/dl Borderline High TRIG 200-500 mg/dl High TRIG greather than 500 mg/dl Very High Performed By: #### T SH, CMP, LIPD #### [facility] [address] [place], [place] [id number] PSA SCREEN (MEDICARE)on 02-21 TPSA 6.330 ng/mL High <4.[address] [facility] Comment on above: Result Comment: PSA Test Method: ECLIA/Horacio e 601 Performed By: #### T NELY, CMP, LIPD #### [facility] [address] [place], [place] [id number] TSHon 03-08-2022 TSH 1.060 uIU/mL Normal 0.400-4.50 0 [facility] Alumni Relations Manager Comment on above: Performed By: #### T NELY, CMP, LIPD #### [facility] [address] [place], [place] [id number] Operative Reporton Operative Report MR#: [id number] [facility] Pt. Name: Indio Collado Room #: [id number] Discharge 02/16/2022 Date: Birthdate: 1955 OPERATIVE REPORT DATE OF SURGERY: 02/15/2022 SURGEON: Christopher Yang M.D. SECOND TIME WORKER: MD Kell and ANABELL Cedeño. ANESTHESIA: General [...] arthrotomy was closed itself with #2 interrupted egddob-av-blqay suture. The remainder of the incision closed [...] Yang M.D. Date Trans: 02/17/2022 01:02 P/laisha [id number] cc: Christopher Velazquez M.D. [address] [place] [address] Normal [facility] BASIC METABOLIC PANELon 04-2 Calcium [Mass/Vol] 8.1 mg/dL Low 8.6-10.3 [facility] Comment on above: Order Comment: No: D o not add to previous draw Performed By: #### 3 1595 #### [facility] [address] [facility] [place] [address], [facility] Chloride [Moles/Vol] 101 mmol/L Normal 98-107 [facility] Comment on above: Order Comment: No: D o not add to previous draw Performed By: #### 3 1595 #### [facility] [address] [place] [address], [place] CO2 [Moles/Vol] 27 mmol/L Normal 21-31 [facility] Comment on above: Order Comment: No: D o not add to previous draw Performed By: #### 3 1595 #### [facility] [address] [place] [address], [place] Creatinine [Mass/Vol] 0.68 mg/dL Low 0.70-1.30 [facility] Comment on above: Order Comment: No: D o not add to previous draw Performed By: #### 3 1595 #### [facility] [address] [place] [address], [place] GFR/1.73 sq M.predicted among blacks MDRD (S/P/Bld) [Vol rate/Area] mL/min/{1.73_m2} Normal >60 [facility] Comment on above: Order Comment: No: D o not add to previous draw Performed By: #### 3 1595 #### [facility] [address] [place] [address], [place] GFR/1.73 sq M.predicted among non-blacks MDRD (S/P/Bld) [Vol rate/Area] mL/min/{1.73_m2} Normal >60 [facility] Comment on above: Order Comment: No: D o not add to previous draw Performed By: #### 3 1595 #### [facility] [address] [place] [address], [place] Glucose [Mass/Vol] 124 mg/dL High 70-100 [facility] Comment on above: Order Comment: No: D o not add to previous draw Performed By: #### 3 1595 #### [facility] [address] [place] [address], [place] Potassium [Moles/Vol] 3.3 mmol/L Low 3.5-5.1 [facility] Comment on above: Order Comment: No: D o not add to previous draw Performed By: #### 3 1595 #### [facility] [address] [place] [address], [facility] Sodium [Moles/Vol] 136 mmol/L Normal 136-145 [facility] Comment on above: Order Comment: No: D o not add to previous draw Performed By: #### 3 1595 #### [facility] [address] [place] [address], [facility] Urea nitrogen [Mass/Vol] 11 mg/dL Normal 7-25 [facility] Comment on above: Order Comment: No: D o not add to previous draw Performed By: #### 3 1595 #### [facility] [address] [facility] [place] [address], [facility] CBC W/DIFFon 02-16-2022 ABS IMM GRANS 0.1 10*3/uL Normal 0.0-0.2 [facility] Comment on above: Order Comment: No: D o not add to previous draw Performed By: #### 3 1595 #### [facility] [address] [place] [address], [facility] ABS NEUTROPHILS 11.2 10*3/uL High 1.6-7.6 [facility] Comment on above: Order Comment: No: D o not add to previous draw Performed By: #### 3 1595 #### [facility] [address] [place] [address], [facility] Basophils (Bld) [#/Vol] 0.0 10*3/uL Normal 0.0-0.2 [facility] Comment on above: Order Comment: No: D o not add to previous draw Performed By: #### 3 1595 #### [facility] [address] [place] [address], [facility] Basophils/100 WBC (Bld) 0.1 % Normal 0.0-1.0 T amado [facility] Comment on above: Order Comment: No: D o not add to previous draw Performed By: #### 3 1595 #### [facility] [address] [facility] [place] [address], [facility] Eosinophils (Bld) [#/Vol] 0.0 10*3/uL Normal 0.0-0.5 [facility] Comment on above: Order Comment: No: D o not add to previous draw Performed By: #### 3 1595 #### [facility] [address] [place] [address], [facility] Eosinophils/100 WBC (Bld) 0.0 % Normal 0.0-6.0 [facility] Comment on above: Order Comment: No: D o not add to previous draw Performed By: #### 3 1595 #### [facility] [address] [facility]. [address] Erythrocyte distribution width (RBC) [Ratio] 15.9 % High 11.5-15.0 [facility] Comment on above: Order Comment: No: D o not add to previous draw Performed By: #### 3 1595 #### [facility] [facility] [address] [facility] [place] [place] [address], [facility] Hematocrit (Bld) [Volume fraction] 34.9 % Low 39.0-50.0 [facility] Comment on above: Order Comment: No: D o not add to previous draw Performed By: #### 3 1595 #### [facility] [address] [facility] [place] [address], [facility] Hemoglobin (Bld) [Mass/Vol] 12.0 g/dL Low 13.0-17.0 [facility] Comment on above: Order Comment: No: D o not add to previous draw Performed By: #### 3 1595 #### [facility] [address] [place] [address], [facility] IMMATURE GRANS 0.5 % Normal 0.0-1.0 [facility] Comment on above: Order Comment: No: D o not add to previous draw Performed By: #### 3 1595 #### [facility] [address] [place] [address], [facility] Lymphocytes (Bld) [#/Vol] 0.8 10*3/uL Low 1.2-4.0 [facility] Comment on above: Order Comment: No: D o not add to previous draw Performed By: #### 3 1595 #### [facility] [address] [place] [address], [facility] Lymphocytes/100 WBC (Bld) 6.4 % Low 20.0-45.0 [facility] Comment on above: Order Comment: No: D o not add to previous draw Performed By: #### 3 1595 #### [facility] [address] [place] [address], [facility] MCH (RBC) [Entitic mass] 31.9 pg Normal 27.0-33.0 [facility] Comment on above: Order Comment: No: D o not add to previous draw Performed By: #### 3 1595 #### [facility] [address] [facility] [place] [address], [facility] MCHC (RBC) [Mass/Vol] 34.4 g/dL Normal 32.0-35.0 [facility] Comment on above: Order Comment: No: D o not add to previous draw Performed By: #### 3 1595 #### [facility] [address] [place] [id number], [facility] MCV (RBC) [Entitic vol] 92.8 fL Normal 82.0-98.0 [facility] Comment on above: Order Comment: No: D o not add to previous draw Performed By: #### 3 1595 #### [facility] [address] [place] [id number], [facility] Monocytes (Bld) [#/Vol] 0.8 10*3/uL Normal 0.1-1.0 [facility] Comment on above: Order Comment: No: D o not add to previous draw Performed By: #### 3 1595 #### [facility] [address] [place] [address], [facility] MONOS 5.9 % Normal 5.0-12.0 [facility] Comment on above: Order Comment: No: D o not add to previous draw Performed By: #### 3 1595 #### [facility] [address] [place] [address], [facility] Neutrophils/100 WBC (Bld) 87.1 % High 40.0-72.0 [facility] Comment on above: Order Comment: No: D o not add to previous draw Performed By: #### 3 1595 #### [facility] [address] [place] [address], [facility] Nucleated RBC/100 WBC (Bld) [Ratio] 0 % Normal 0-0 [facility] Comment on above: Order Comment: No: D o not add to previous draw Performed By: #### 3 1595 #### [facility] [address] [place] [address], [facility] PLAT CNT 250 10*3/uL Normal 150-400 [facility] Comment on above: Order Comment: No: D o not add to previous draw Performed By: #### 3 1595 #### [facility] [address] [place] [address], [facility] RBC (Bld) [#/Vol] 3.76 10*6/uL Low 4.20-5.70 [facility] Comment on above: Order Comment: No: D o not add to previous draw Performed By: #### 3 1595 #### [facility] [address] [place] [address], [place] WBC (Bld) [#/Vol] 12.88 10*3/uL High 4.00-10.60 [facility] Comment on above: Order Comment: No: D o not add to previous draw Performed By: #### 3 1595 #### [facility] [address] PROTHROMBIN TIMEon INR Coag (PPP) [Relative time] 1.20 {INR} High 0.91-1.16 [facility] Comment on above: Order Comment: No: [...] 1995;108:231S-246S. Performed By: #### 3 1595 #### [facility] [address] PT Coag (PPP) [Time] 15.2 s High 12.3-14.8 [facility] Comment on above: Order Comment: No: D o not add to previous draw Result Comment: ALL RESULTS MUST BE INTERPRETED WITH RESPECT TO BLOOD DRAWING ARTIFACT OR DILUTION ERROR OF ANTICOAGULANT AT THE TIME OF SAMPLING. Performed By: #### 3 1595 #### [facility] [address] *ANAEROBIC CULTUREon 022 *ANAEROBIC CULTURE Clinical Report: (D) Specimen/Source: TISSUE/INTRAOP SPEC Collected: 02/15/2022 10:06 Status: Final Last Updated: 02/20/2022 09:09 (1) 3. Right Medial Lateral Synovium CULT RES (Final) No Anaerobes Isolated 5 Days Normal [facility] Comment on above: Order Comment: 3. Ri ght Medial Lateral Synovium Performed By: #### 3 0312 #### [facility] [address] [facility] *ANAEROBIC CULTURE Clinical Report: (D) Specimen/Source: FLUID/INTRAOP SPEC Collected: 02/15/2022 10:06 Status: Final Last Updated: 02/20/2022 09:09 (1) 1. Right Knee Joint Fluid CULT RES (Final) No Anaerobes Isolated 5 Days Normal [facility] Comment on above: Order Comment: 1. Ri ght Knee Joint Fluid Performed By: #### 3 0312 #### [facility] [address] *ANAEROBIC CULTURE Clinical Report: (D) Specimen/Source: TISSUE/INTRAOP SPEC Collected: 02/15/2022 10:06 Status: Final Last Updated: 02/20/2022 09:09 (1) 2. Right Knee Medial Synovium CULT RES (Final) No Anaerobes Isolated 5 Days Normal [facility] Comment on above: Order Comment: 2. Ri ght Knee Medial Synovium Performed By: #### 3 1595 #### [facility] [address] [facility] [place] [address], [facility] *BODY FLUID CULTUREon 2021 *BODY FLUID CULTURE Clinical Report: (D) Specimen/Source: FLUID/INTRAOP SPEC Collected: 02/15/2022 10:06 Status: Final Last Updated: 02/20/2022 07:33 (1) 1. Right Knee Joint Fluid GRAM (Final) Moderate Polys No Bacteria Seen CULT RES (Final) No Growth Day 5 Normal [facility] Comment on above: Order Comment: 1. Ri ght Knee Joint Fluid Performed By: #### 3 1595 #### [facility] [address] *TISSUE CULTUREon 02-15-2022 *TISSUE CULTURE Clinical Report: (D) Specimen/Source: TISSUE/INTRAOP SPEC Collected: 02/15/2022 10:06 Status: Final Last Updated: 02/20/2022 07:33 (1) 3. Right Medial Lateral Synovium GRAM (Final) Rare Polys No Bacteria Seen CULT RES (Final) No Growth Day 5 Normal [facility] Comment on above: Order Comment: 3. Ri ght Medial Lateral Synovium Performed By: #### 3 0338 #### [facility] [address] *TISSUE CULTURE Clinical Report: (D) Specimen/Source: TISSUE/INTRAOP SPEC Collected: 02/15/2022 10:06 Status: Final Last Updated: 02/20/2022 07:34 (1) 2. Right Knee Medial Synovium GRAM (Final) Moderate Polys No Bacteria Seen CULT RES (Final) No Growth Day 5 Normal [facility] Comment on above: Order Comment: 2. Ri ght Knee Medial Synovium Performed By: #### 3 0338 #### [address] APTTon 02-15-2022 aPTT Coag (Bld) [Time] 29.7 s Normal 25.0-35.0 [facility] Comment on above: Order Comment: No: [...] THIS PURPOSE. Performed By: #### 5 7307, 74716 #### [facility] [address] POC GLUCOSE LABon 02-15-2022 Glucose [Mass/Vol] 124 mg/dL High 70-100 [facility] Comment on above: Performed By: #### 8 5499 #### [facility] [address] [facility] [place] [address], [facility] Glucose [Mass/Vol] 97 mg/dL Normal 70-100 [facility] Comment on above: Performed By: #### 3 1595 #### [facility] [address] [facility] [place] [address], [facility] PORTABLE KNEE RIGHT 2 [facility] 02-15-2022 PORTABLE KNEE RIGHT 2 [facility] Department of Radiology [address] [place] [id number] Patient Name: INDIO COLLADO : 1955 Sex: M Age: Race: White Pt. Location: OUTP Patient Status: I Ordered Date: 02/15/2022 11:10:00 AM Completed Date: 02/15/2022 12:47 PM Requesting Provider: LONNY CASTORENA Attending Provider: CHRISTOPHER YANG Report Copy To: Signs & Symptoms: Post OP History: Comments: Hardware Evaluation, in PACU Exam: PORTABLE KNEE RIGHT 2 [facility] PORTABLE KNEE RIGHT 2 S 02/15/2022 12:47 [...] 12/08/2021 Electronically signed: Indio Presley. Transcribed by: [email or web address], User Resident: Electronically Signed by: INDIO PRESLEY @ 02/15/2022 12:57 PM Normal [facility] Comment on above: Order Comment: Hardw are Evaluation, in PACU PROTHROMBIN TIMEon INR Coag (PPP) [Relative time] 1.14 {INR} Normal 0.91-1.16 [facility] Comment on above: Order Comment: No: [...] CHEST 1995;108:231S-246S. Performed By: #### 5 7307, [address] #### [place] [address] [address] PT Coag (PPP) [Time] 14.6 s Normal 12.3-14.8 [facility] Comment on above: Order Comment: No: D o not add to previous draw Result Comment: ALL RESULTS MUST BE INTERPRETED WITH RESPECT TO BLOOD DRAWING ARTIFACT OR DILUTION ERROR OF ANTICOAGULANT AT THE TIME OF SAMPLING. Performed By: #### 5 7307, [id number] #### [facility] [address] [place], [place] [id number] [place] [address] Complete Blood Count with Au to Diffon 02-05-2022 Basophils (Bld) [#/Vol] 0.06 10*3/uL Normal 0.00-0.20 [facility] Relations Manager Comment on above: Performed By: #### T SH, CMP, LIPD #### [facility] [address] [place], [place] [id number] Basophils/100 WBC (Bld) 0.9 % Normal N [facility] Specialist Comment on above: Performed By: #### T NELY, CMP, LIPD #### [facility] [address] [place], [place] [id number] Eosinophils (Bld) [#/Vol] 0.10 10*3/uL Normal 0.02-0.50 [facility] Comment on above: Performed By: #### T NELY, CMP, LIPD #### [facility] [address] [place], [place] [id number] Eosinophils/100 WBC (Bld) 1.5 % Normal [facility] Manager Comment on above: Performed By: #### T NELY, CMP, LIPD #### [facility] [address] [place], [place] [id number] Erythrocyte distribution width (RBC) [Ratio] 17.3 % High 11.0-15.0 [facility] Manager Comment on above: Performed By: #### T SH, CMP, LIPD #### [facility] [address] [place], [place] [id number] Hematocrit (Bld) [Volume fraction] 40.5 % Normal 38.5-50.0 [facility] Manager Comment on above: Performed By: #### T SH, CMP, LIPD #### [facility] [address] [place], [place] [id number] Hemoglobin (Bld) [Mass/Vol] 13.5 g/dL Normal 13.0-17.1 [facility] Manager Comment on above: Performed By: #### T SH, CMP, LIPD #### [facility] [address] [place], [place] [id number] Lymphocytes (Bld) [#/Vol] 1.4 10*3/uL Normal 0.9-3.9 [facility]ist Comment on above: Performed By: #### T SH, CMP, LIPD #### [facility] [address] [place], [place] [id number] Lymphocytes/100 WBC (Bld) 21.1 % Normal [facility] Comment on above: Performed By: #### T SH, CMP, LIPD #### [facility] [address] [place], [place] [id number] MCH (RBC) [Entitic mass] 31.3 pg Normal 27.0-33.0 [facility] Comment on above: Performed By: #### T SH, CMP, LIPD #### [facility] [address] [place], [place] [id number] MCHC (RBC) [Mass/Vol] 33.3 g/dL Normal 32.0-36.0 [facility] Comment on above: Performed By: #### T SH, CMP, LIPD #### [facility] [address] [place], [place] [id number] MCV (RBC) [Entitic vol] 94 fL Normal 80-100 [facility] Specialist Comment on above: Performed By: #### T SH, CMP, LIPD #### [facility] [address] [place], [place] [id number] Monocytes (Bld) [#/Vol] 0.4 10*3/uL Normal 0.2-0.9 [facility] Comment on above: Performed By: #### T SH, CMP, LIPD #### [facility] [address] [place], [place] [id number] Monocytes/100 WBC (Bld) 6.3 % Normal N [facility] Comment on above: Performed By: #### T SH, CMP, LIPD #### [facility] [address] [place], [place] [id number] Neutrophils (Bld) [#/Vol] 4.6 10*3/uL Normal 1.5-7.8 [facility] Comment on above: Performed By: #### T SH, CMP, LIPD #### [facility] [address] [place], [place] [id number] Neutrophils/100 WBC (Bld) 70.0 % Normal [facility] Comment on above: Performed By: #### T SH, CMP, LIPD #### [facility] [address] [place], [place] [id number] Platelet mean volume (Bld) [Entitic vol] 10.10 fL Normal 7.50-12.50 [facility] Comment on above: Performed By: #### T SH, CMP, LIPD #### [facility] [address] [place], [place] [id number] Platelets (Bld) [#/Vol] 280 10*3/uL Normal 140-400 [facility] Comment on above: Performed By: #### T SH, CMP, LIPD #### [facility] [address] [place], [place] [id number] RBC (Bld) [#/Vol] 4.32 10*6/uL Normal 4.20-5.80 [facility] Specialist Comment on above: Performed By: #### T SH, CMP, LIPD #### [facility] [address] [place], [place] [id number] RDW-SD 60.6 fL High 37.0-50.0 [facility] Comment on above: Performed By: #### T SH, CMP, LIPD #### [facility] [address] [place], [place] [id number] WBC (Bld) [#/Vol] 6.6 10*3/uL Normal 3.8-11.0 [facility] Relations Manager Comment on above: Performed By: #### T SH, CMP, LIPD #### [facility] [address] [place], [place] [id number] Comprehensive Metabolic Pane carl 02-05-2022 Albumin [Mass/Vol] 3.3 g/dL Low 3.6-5.1 [facility] Relations Manager Comment on above: Performed By: #### T SH, CMP, LIPD #### [facility] [address] [place], [place] [id number] Albumin/Globulin [Mass ratio] 1.4 {ratio} Normal 1.0-2.[address] [facility] Comment on above: Performed By: #### T SH, CMP, LIPD #### [facility] [address] [place], [place] [id number] ALP [Catalytic activity/Vol] 102 U/L Normal 40-[address] [facility] Comment on above: Performed By: #### T SH, CMP, LIPD #### [facility] [address] [place], [place] [id number] ALT [Catalytic activity/Vol] 11 U/L Normal 9-46 [facility] Comment on above: Result Comment: 09/23 Female reference range changed. Performed By: #### T SH, CMP, LIPD #### [facility] [address] [place], [place] [id number] Anion gap [Moles/Vol] 16 mmol/L Normal 12-20 [facility] Comment on above: Result Comment: Effe ctive 10/29/2019 reference range changed. Performed By: #### T SH, CMP, LIPD #### [facility] [address] [place], [place] [id number] AST [Catalytic activity/Vol] 18 U/L Normal 10-[address] [facility] Comment on above: Performed By: #### T SH, CMP, LIPD #### [facility] [address] [place], [place] [id number] Bilirubin [Mass/Vol] 1.96 mg/dL High 0.30-1.20 [facility] Comment on above: Performed By: #### T SH, CMP, LIPD #### [facility] [address] [place], [place] [id number] BUN/CREA 11 Ratio Normal 6-[address] [facility] Comment on above: Performed By: #### T SH, CMP, LIPD #### [facility] [address] [place], [place] [id number] Calcium [Mass/Vol] 8.7 mg/dL Normal 8.6-10.2 [facility] Comment on above: Performed By: #### T SH, CMP, LIPD #### [facility] [address] [place], [place] [id number] Chloride [Moles/Vol] 105 mmol/L Normal 98-107 [facility] Specialist Comment on above: Performed By: #### T SH, CMP, LIPD #### [facility] [address] [place], [place] [id number] CO2 [Moles/Vol] 23 mmol/L Normal 20-[address] [facility] Comment on above: Performed By: #### T SH, CMP, LIPD #### [facility] [address] [place], [place] [id number] Creatinine [Mass/Vol] 0.7 mg/dL Normal 0.7-1.4 [facility] Specialist Comment on above: Performed By: #### T SH, CMP, LIPD #### [facility] [address] [place], [place] [id number] eGFRAA 139 mL/min/1.73m2 Normal >60 [facility] Specialist Comment on above: Performed By: #### T SH, CMP, LIPD #### [facility] [address] [place], [place] [id number] eGFRNAA 115 mL/min/1.73m2 Normal >60 [facility] Comment on above: Performed By: #### T SH, CMP, LIPD #### [facility] [address] [place], [place] [id number] Globulin (S) [Mass/Vol] 2.3 g/dL Normal 1.9-3.7 [facility] Comment on above: Performed By: #### T SH, CMP, LIPD #### [facility] [address] [place], [place] [id number] Glucose [Mass/Vol] 94 mg/dL Normal 65-99 [facility] Comment on above: Result Comment: For FASTING Glucose --- ADA reference ranges: Normal 65-99 mg/dl Prediabetes 100-125 Diabetes >/= 126 Performed By: #### T SH, CMP, LIPD #### [facility] [address] [place], [place] [id number] Potassium [Moles/Vol] 3.7 mmol/L Normal 3.5-5.5 [facility] Specialist Comment on above: Performed By: #### T SH, CMP, LIPD #### [facility] [address] [place], [place] [id number] Protein [Mass/Vol] 5.6 g/dL Low 6.1-8.1 [facility] Relations Manager Comment on above: Performed By: #### T SH, CMP, LIPD #### [facility] [address] [place], [place] [id number] Sodium [Moles/Vol] 140 mmol/L Normal 135-146 [facility] Relations Manager Comment on above: Performed By: #### T SH, CMP, LIPD #### [facility] [address] [place], [place] [id number] Urea nitrogen [Mass/Vol] 7 mg/dL Normal 7-25 [facility] Manager Comment on above: Performed By: #### T SH, CMP, LIPD #### [facility] [address] [place], [place] [id number] Ferritinon 02-05-2022 FERR 128.6 ng/mL Normal 30.0-400.0 [facility] Relations Manager Comment on above: Performed By: #### T SH, CMP, LIPD #### [facility] [address] [place], [place] [id number] Iron Profileon 02-05-2022 %FESAT 18 % Normal 15-60 [facility] Specialist Comment on above: Performed By: #### T SH, CMP, LIPD #### [facility] [address] [place], [place] [id number] FE 45 ug/dL Low 50-180 [facility] Relations Manager Comment on above: Result Comment: Refe rence range change 09/09/2017. Prior reference range F 37-145 ug/dL, M 59-158 ug/dL. Performed By: #### T SH, CMP, LIPD #### [facility] [address] [place], [place] [id number] TIBC 247 ug/dL Low 250-425 [facility] Manager Comment on above: Performed By: #### T SH, CMP, LIPD #### [facility] [address] [place], [place] [id number] UIBC 202 ug/dL Normal 112-347 [facility] Relations Manager Comment on above: Performed By: #### T SH, CMP, LIPD #### [facility] [address] [place], [place] [id number] Magnesiumon 02-05-2022 Magnesium [Mass/Vol] 1.8 mg/dL Normal 1.5-2.3 [facility] Comment on above: Performed By: #### T SH, CMP, LIPD #### [facility] [address] [facility] [place] [id number] Phosphoruson 02-05-2022 Phosphate [Mass/Vol] 3.2 mg/dL Normal 2.2-4.4 [facility] Comment on above: Performed By: #### T SH, CMP, LIPD #### [facility] [address] [place], [place] [id number] Q - VITAMIN B1 (THIAMINE),BL OODon 02-05-2022 VITAMIN B1 (THIAMINE), BLOOD, LC/MS/MS 74 nmol/L Low 78-[address] [facility] Comment on above: Order Comment: [facility] performed at: [facility], [address], [place], [place], , Medical Reviewer: Alexis Abbott M.D.,PhDQuest Collection Date/Time: [id number] Results Received Date/Time: [id number] Reported Date/Time: Result Comment: Yolande min supplementation within 24 hours prior to blood draw may affect the accuracy of the results. This test was developed and its analytical performance characteristics have been determined by [facility] [place], [place]. It has not been cleared or approved by the U.S. Food and Drug Administration. This assay has been validated pursuant to the CLIA regulations and is used for clinical purposes. Performed By: #### T SH, CMP, LIPD #### [facility] [address] [place], [place] [id number] Q - VITAMIN D 25-OH Total IA on 02-05-2022 VIT D 25 OH 18 ng/mL Low 30-100 [facility] Specialist Comment on above: Order Comment: [facility] performed at: [facility], [facility], [address] [place] [address], [address] [place], [address], Medical Reviewer: Juan Daniel Cool MDQuest Collection Date/Time: [id number] Results Received Date/Time: [id number] Reported Date/Time: Result Comment: Yolande min D Status 25-OH Vitamin D: Deficiency: <20 ng/mL Insufficiency: 20 - 29 ng/mL Optimal: > or = 30 ng/mL For 25-OH Vitamin D testing on patients on D2-supplementation and patients for whom quantitation of D2 and D3 fractions is required, the QuestAssureD(TM) 25-OH VIT D, (D2,D3), LC/MS/MS is recommended: order code 60602 (patients >2yrs). See Note 1 Note 1 For additional information, please refer to http://education.[employer]/faq/UYL368 (This link is being provided for informational/ educational purposes only.) Performed By: #### T RAMONA MCKAY, LIPD #### [facility] [address] [place], [place] [id number] Vitamin B12/Folateon 022 Cobalamin (Vitamin B12) [Mass/Vol] 344 pg/mL Normal 211-946 [facility] Relations Manager Comment on above: Result Comment: Spec imen is hemolyzed. Results may be affected. Performed By: #### T NELY, RAMONA, LIPD #### [facility] [address] [place], [place] [id number] FOL 12.7 ng/mL Normal >4.7 [facility] Relations Manager Comment on above: Result Comment: Refe rence range change 09/09/2017. Prior reference range F 4.8-37.3 ng/mL, M 4.5-32.2 ng/mL. Performed By: #### T RAMONA MCKAY, LIPD #### [facility] [address] [place], [place] [id number] CT LOWER EXTREMITY WO CONTRA ST RIGHTon 01-02-2022 CT LOWER EXTREMITY WO CONTRAST RIGHT [facility] Department of Radiology [address] [place] [address] Patient Name: INDIO COLLADO : 1955 Sex: M Age: Race: White Pt. Location: 84 Patient Status: D Ordered Date: 12/11/2021 12:05:00 [...] report. Electronically signed: Michael Grant. Transcribed by: [email or web address], User Resident: EVA RAMIREZ Electronically Signed by: MICHAEL GRANT @ 01/04/2022 09:38 AM I personally read this/these film(s) with this resident Normal [facility] Comment on above: Order Comment: right knee *MRSA/MSSA DNA NASALon 12-08 *MRSA/MSSA DNA NASAL Clinical Report: (D ) Specimen: NASAL SWAB Collected: 12/08/2021 14:59 Status: Final Last Updated: 12/08/2021 21:27 MSSA DNA (Final) Negative MRSA DNA (Final) Methicillin Resistant Staphylococcus aureus DNA Detected Normal [facility] Comment on above: Performed By: #### 3 1876 #### [facility] [address] [place] [address], [facility] C REACTIVE PROTEINon 022 CRP [Mass/Vol] 7.2 mg/L High 0.0-7.0 [facility] Comment on above: Performed By: #### 3 0446 #### [facility] [address] [place], [place] [address] KNEE RIGHT 3 VWSon KNEE RIGHT 3 S [facility] Department of Radiology [address] [place] [id number] Patient Name: INDIO COLLADO : 1955 Sex: M Age: Race: Other Pt. Location: Patient Status: D Ordered Date: 12/08/2021 1:45:00 PM Completed Date: 12/08/2021 01:50 PM Requesting Provider: CHRISTOPHER YANG Attending Provider: Report Copy To: Signs & Symptoms: Z96.659 Presence of unspecified artificial knee joint I10 History: Dora Comments: Evaluate Exam: KNEE RIGHT 3 VWS KNEE RIGHT 3 S HISTORY: Recent fall, knee pain. COMPARISON: None. IMPRESSION: 1. No fracture or dislocation. Small to moderate knee joint effusion. 2. No hardware complication. Vascular calcifications. Electronically signed: Kehinde Hahn. Transcribed by: [email or web address], User Resident: Electronically Signed by: KEHINDE HAHN @ 12/09/2021 02:13 PM Normal [facility] Comment on above: Order Comment: Evalu ate Q - MICROALBUMIN,RANDOM URIN E (W/CREAT)on 11-17-2021 Albumin DL <= 20 mg/L (U) [Mass/Vol] 5.3 mg/dL Normal See Note: [facility] Alumni Relations Manager Comment on above: Order Comment: [facility] Testing performed at: [facility], [facility], [address] [facility], [address] [place] [address], [address] [place] [address], Medical Reviewer: Juan Daniel Cool MD [facility] Collection Date/Time: [facility] Results Received Date/Time: [facility] Reported Date/Time: Result Comment: Refe rence Range: Reference Range Not established Performed By: #### 6 517X #### [facility] Default [address] [place] [address] Creatinine (U) [Mass/Vol] 173 mg/dL Normal 20-320 [facility] Alumni Relations Manager Comment on above: Order Comment: [facility] performed at: [facility], [facility], [address] [facility], [address] [place] [address], [address] [place] [address], Medical Reviewer: Juan Daniel Cool MD [facility] Date/Time: [facility] Results Received Date/Time: [facility] Reported Date/Time: Performed By: #### 6 517X #### [facility] [address] [place] [address] MICROALBUMIN/CREATININE RATIO, RANDOM URINE 31 mcg/mg creat High <30 [facility] Alumni Relations Manager Comment on above: Order Comment: [facility] performed at: [facility], [facility], [address] [facility], [address] [place] [address], [address] [place] [address], Medical Reviewer: Juan Daniel Cool MD [facility] Date/Time: [...] 6 517X #### [facility] [address] [place] [address] RESPIRATORY PANEL PLUSon 12- 30-2021 Adenovirus Not detected Normal NOT DETECTED [facility] Comment on above: Performed By: #### R SPLUS ####[facility] [address] [place] [address]Dr. Chris Real B. Parapertusis Not detected Normal NOT DETECTED [facility] Comment on above: Performed By: #### R SPLUS ####[facility] [address] [place], [place] [address]Dr. Fatoumatakinjal Real B. Pertussis Not detected Normal NOT DETECTED [facility] Comment on above: Performed By: #### R SPLUS ####[facility] [address] [place], [place] [address]Dr. Chris Real Chlamydia Pneumoniae Not detected Normal NOT DETECTED [facility] Comment on above: Performed By: #### R SPLUS ####[facility] [address] [place], [place] [address]Dr. Yikinjal Real Coronavirus 229E Not detected Normal NOT DETECTED [facility] Comment on above: Performed By: #### R SPLUS ####[facility] [address] [place], [place] [address]Dr. Yikinjal Real Coronavirus HKU1 Not detected Normal NOT DETECTED [facility] Comment on above: Performed By: #### R SPLUS ####[facility] [address] [place], [place] [address]Dr. Yikinjal Real Coronavirus NL63 Not detected Normal NOT DETECTED [facility] Comment on above: Performed By: #### R SPLUS ####[facility] [address] [place], [place] [address]Dr. Yilan Real Coronavirus OC43 Not detected Normal NOT DETECTED [facility] Comment on above: Performed By: #### R SPLUS ####[facility] [address] [place], [place] [address]Dr. Fatoumatalan Real Influenza A H1 2009 Not detected Normal NOT DETECTED [facility] Comment on above: Performed By: #### R SPLUS ####[facility] [address] [place], [place] [address]Dr. Fatoumatakinjal Real Influenza A H3 Not detected Normal NOT DETECTED [facility] Comment on above: Performed By: #### R SPLUS ####[facility] [address] [place] [address]Dr. Chris Real Influenza B Not detected Normal NOT DETECTED [facility] Comment on above: Performed By: #### R SPLUS ####[facility] [address] [place], [place] [address]Dr. Chris Real Metapneumovirus Not detected Normal NOT DETECTED [facility] Comment on above: Performed By: #### R SPLUS ####[facility] [address] [place], [place] [address]Dr. Chris Real Mycoplas. Pneumoniae Not detected Normal NOT DETECTED [facility] Comment on above: Performed By: #### R SPLUS ####[facility] [address] [place], [place] [address]Dr. Chris Real Parainfluenza 1 Not detected Normal NOT DETECTED [facility] Comment on above: Performed By: #### R SPLUS ####[facility] [address] [place], [place] [address]Dr. Chris Real Parainfluenza 2 Not detected Normal NOT DETECTED [facility] Comment on above: Performed By: #### R SPLUS ####[facility] [address] [place], [place] [address]Dr. Chris Real Parainfluenza 3 Not detected Normal NOT DETECTED [facility] Comment on above: Performed By: #### R SPLUS ####[facility] [address] [place], [place] [address]Dr. Chris Real Parainfluenza 4 Not detected Normal NOT DETECTED [facility] Comment on above: Performed By: #### R SPLUS ####[facility] [address] [place], [place] [address]Dr. Chris Real Rhino/Enterovirus Not detected Normal NOT DETECTED [facility] Comment on above: Performed By: #### R SPLUS ####[facility] [address] [place], [place] [address]Dr. Chris Real RP2 Header 1 RESPIRATORY PANEL: VIRUSES Normal [facility] Comment on above: Performed By: #### R SPLUS ####[facility] [address] [place], [place] [address]Qz. Chris Real RP2 Header 2 RESPIRATORY PANEL: BACTERIA Normal [facility] Comment on above: Performed By: #### R SPLUS ####[facility] [address] [place], [place] [address]Nb. Chris Real RSV Not detected Normal NOT DETECTED [facility] Comment on above: Performed By: #### R SPLUS ####[facility] [address] [place], [place] [address]Vn. Chris Real SARS-CoV-2 (COVID-19) RNA GAIL+probe Ql (Unsp spec) Detected Critically abnormal NOT DETECTED [facility] Comment on above: Performed By: #### R SPLUS ####[facility] [address] [place], [place] [address]Dl. Chris Real Complete Blood Count with Au to Diffon 10-08-2021 Basophils (Bld) [#/Vol] 0.07 10*3/uL Normal 0.00-0.[address] [facility] Comment on above: Performed By: #### V ITD, MG, PHOS, FERR, CBCAD, FE Prof, CMP #### [facility] [address] [place], [place] [id number] Basophils/100 WBC (Bld) 0.9 % Normal [facility] Comment on above: Performed By: #### V ITD, MG, PHOS, FERR, CBCAD, FE Prof, CMP #### [facility] [address] [place], [place] [id number] Eosinophils (Bld) [#/Vol] 0.20 10*3/uL Normal 0.02-0.[address] [facility] Comment on above: Performed By: #### V ITD, MG, PHOS, FERR, CBCAD, FE Prof, CMP #### [facility] [address] [place], [place] [id number] Eosinophils/100 WBC (Bld) 2.6 % Normal [facility] Comment on above: Performed By: #### V ITD, MG, PHOS, FERR, CBCAD, FE Prof, CMP #### [facility] [address] [place], [place] [id number] Erythrocyte distribution width (RBC) [Ratio] 15.0 % Normal 11.0-15.0 [facility] Comment on above: Performed By: #### V ITD, MG, PHOS, FERR, CBCAD, FE Prof, CMP #### [facility] [address] [place], [place] [id number] Hematocrit (Bld) [Volume fraction] 45.1 % Normal 38.5-50.0 [facility] Comment on above: Performed By: #### V ITD, MG, PHOS, FERR, CBCAD, FE Prof, CMP #### [facility] [address] [place], [place] [id number] Hemoglobin (Bld) [Mass/Vol] 14.7 g/dL Normal 13.0-17.1 [facility] Comment on above: Performed By: #### V ITD, MG, PHOS, FERR, CBCAD, FE Prof, CMP #### [facility] [address] [place], [place] [id number] Lymphocytes (Bld) [#/Vol] 1.8 10*3/uL Normal 0.9-3.9 [facility] Comment on above: Performed By: #### V ITD, MG, PHOS, FERR, CBCAD, FE Prof, CMP #### [facility] [address] [place], [place] [id number] Lymphocytes/100 WBC (Bld) 23.4 % Normal [facility] Comment on above: Performed By: #### V ITD, MG, PHOS, FERR, CBCAD, FE Prof, CMP #### [facility] [address] [place], [place] [id number] MCH (RBC) [Entitic mass] 28.1 pg Normal 27.0-33.0 [facility] Comment on above: Performed By: #### V ITD, MG, PHOS, FERR, CBCAD, FE Prof, CMP #### [facility] [address] [place], [place] [id number] MCHC (RBC) [Mass/Vol] 32.6 g/dL Normal 32.0-36.0 [facility] Comment on above: Performed By: #### V ITD, MG, PHOS, FERR, CBCAD, FE Prof, CMP #### [facility] [address] [place], [place] [id number] MCV (RBC) [Entitic vol] 86 fL Normal 80-100 [facility] Comment on above: Performed By: #### V ITD, MG, PHOS, FERR, CBCAD, FE Prof, CMP #### [facility] [address] [place], [place] [id number] Monocytes (Bld) [#/Vol] 0.5 10*3/uL Normal 0.2-0.9 [facility] Comment on above: Performed By: #### V ITD, MG, PHOS, FERR, CBCAD, FE Prof, CMP #### [facility] [address] [place] [id number] Monocytes/100 WBC (Bld) 6.7 % Normal [facility] Comment on above: Performed By: #### V ITD, MG, PHOS, FERR, CBCAD, FE Prof, CMP #### [facility] [address] [facility] [place] [id number] Neutrophils (Bld) [#/Vol] 5.2 10*3/uL Normal 1.5-7.8 [facility] Comment on above: Performed By: #### V ITD, MG, PHOS, FERR, CBCAD, FE Prof, CMP #### [facility] [address] [place] [id number] Neutrophils/100 WBC (Bld) 66.3 % Normal [facility] Comment on above: Performed By: #### V ITD, MG, PHOS, FERR, CBCAD, FE Prof, CMP #### [facility] [address] [place], [place] [id number] Platelet mean volume (Bld) [Entitic vol] 10.40 fL Normal 7.50-12.50 [facility] Comment on above: Performed By: #### V ITD, MG, PHOS, FERR, CBCAD, FE Prof, CMP #### [facility] [address] [place], [place] [id number] Platelets (Bld) [#/Vol] 302 10*3/uL Normal 140-400 [place] [facility] Relations Manager Comment on above: Performed By: #### V ITD, MG, PHOS, FERR, CBCAD, FE Prof, CMP #### [facility] [address] [place], [place] [id number] RBC (Bld) [#/Vol] 5.23 10*6/uL Normal 4.20-5.80 [facility] Specialist Comment on above: Performed By: #### V ITD, MG, PHOS, FERR, CBCAD, FE Prof, CMP #### [facility] [address] [place], [place] [id number] RDW-SD 46.8 fL Normal 37.0-50.0 [facility] Comment on above: Performed By: #### V ITD, MG, PHOS, FERR, CBCAD, FE Prof, CMP #### [facility] [address] [place], [place] [id number] WBC (Bld) [#/Vol] 7.8 10*3/uL Normal 3.8-11.0 [facility] Alumni Relations Manager Comment on above: Performed By: #### V ITD, MG, PHOS, FERR, CBCAD, FE Prof, CMP #### [facility] [address] [place], [place] [id number] Comprehensive Metabolic Pane [facility] 10-08-2021 Albumin [Mass/Vol] 3.7 g/dL Normal 3.6-5.1 [facility] Alumni Relations Manager Comment on above: Performed By: #### V ITD, MG, PHOS, FERR, CBCAD, FE Prof, CMP #### [facility] [address] [place], [place] [id number] Albumin/Globulin [Mass ratio] 1.2 {ratio} Normal 1.0-2.5 [facility] Comment on above: Performed By: #### V ITD, MG, PHOS, FERR, CBCAD, FE Prof, CMP #### [facility] [address] [place], [place] [id number] ALP [Catalytic activity/Vol] 127 U/L Normal 40-129 [facility] Alumni Relations Manager Comment on above: Performed By: #### V ITD, MG, PHOS, FERR, CBCAD, FE Prof, CMP #### [facility] [address] [place], [place] [id number] ALT [Catalytic activity/Vol] 21 U/L Normal 9-46 [facility] Comment on above: Result Comment: 09/23 Female reference range changed. Performed By: #### V ITD, MG, PHOS, FERR, CBCAD, FE Prof, CMP #### [facility] [address] [place], [place] [id number] Anion gap [Moles/Vol] 20 mmol/L Normal 12-20 [facility] Comment on above: Result Comment: Effe ctive 10/29/2019 reference range changed. Performed By: #### V ITD, MG, PHOS, FERR, CBCAD, FE Prof, CMP #### [facility] [address] [place], [place] [id number] AST [Catalytic activity/Vol] 25 U/L Normal 10-40 [facility] Comment on above: Performed By: #### V ITD, MG, PHOS, FERR, CBCAD, FE Prof, CMP #### [facility] [address] [place], [place] [id number] Bilirubin [Mass/Vol] 1.05 mg/dL Normal 0.30-1.20 [facility] Specialist Comment on above: Performed By: #### V ITD, MG, PHOS, FERR, CBCAD, FE Prof, CMP #### [facility] [address] [place], [place] [id number] BUN/CREA 11 Ratio Normal 6-[address] [facility] Comment on above: Performed By: #### V ITD, MG, PHOS, FERR, CBCAD, FE Prof, CMP #### [facility] [address] [place], [place] [id number] Calcium [Mass/Vol] 9.7 mg/dL Normal 8.6-10.2 [facility] Comment on above: Performed By: #### V ITD, MG, PHOS, FERR, CBCAD, FE Prof, CMP #### [facility] [address] [place], [place] [id number] Chloride [Moles/Vol] 99 mmol/L Normal 98-107 [facility] [place] Comment on above: Performed By: #### V ITD, MG, PHOS, FERR, CBCAD, FE Prof, CMP #### [facility] [address] [place], [place] [id number] CO2 [Moles/Vol] 24 mmol/L Normal 20-[address] [facility] Comment on above: Performed By: #### V ITD, MG, PHOS, FERR, CBCAD, FE Prof, CMP #### [facility] [address] [place], [place] [id number] Creatinine [Mass/Vol] 0.9 mg/dL Normal 0.7-1.4 [facility] Comment on above: Performed By: #### V ITD, MG, PHOS, FERR, CBCAD, FE Prof, CMP #### [facility] [address] [place], [place] [id number] eGFRAA 107 mL/min/1.73m2 Normal >60 [facility] Comment on above: Performed By: #### V ITD, MG, PHOS, FERR, CBCAD, FE Prof, CMP #### [facility] [address] [place], [place] [id number] eGFRNAA 88 mL/min/1.73m2 Normal >[address] [facility] Comment on above: Performed By: #### V ITD, MG, PHOS, FERR, CBCAD, FE Prof, CMP #### [facility] [address] [place], [place] [id number] Globulin (S) [Mass/Vol] 3.0 g/dL Normal 1.9-3.7 [facility] Comment on above: Performed By: #### V ITD, MG, PHOS, FERR, CBCAD, FE Prof, CMP #### [facility] [address] [place], [place] [id number] Glucose [Mass/Vol] 136 mg/dL High 65-99 [facility] Comment on above: Result Comment: For FASTING Glucose --- ADA reference ranges: Normal 65-99 mg/dl Prediabetes 100-125 Diabetes >/= 126 Performed By: #### V ITD, MG, PHOS, FERR, CBCAD, FE Prof, CMP #### [facility] [address] [place], [place] [id number] Potassium [Moles/Vol] 3.3 mmol/L Low 3.5-5.5 [facility] Comment on above: Performed By: #### V ITD, MG, PHOS, FERR, CBCAD, FE Prof, CMP #### [facility] [address] [place], [place] [id number] Protein [Mass/Vol] 6.7 g/dL Normal 6.1-8.1 [facility] [place] [facility] Relations Manager Comment on above: Performed By: #### V ITD, MG, PHOS, FERR, CBCAD, FE Prof, CMP #### [facility] [address] [place], [place] [id number] Sodium [Moles/Vol] 140 mmol/L Normal 135-146 [facility] [place] Al[facility] Relations Manager Comment on above: Performed By: #### V ITD, MG, PHOS, FERR, CBCAD, FE Prof, CMP #### [facility] [address] [place], [place] [id number] Urea nitrogen [Mass/Vol] 10 mg/dL Normal 7-25 [facility] Alumni Relations Manager Comment on above: Performed By: #### V ITD, MG, PHOS, FERR, CBCAD, FE Prof, CMP #### [facility] [address] [place], [place] [id number] Ferritinon 10-08-2021 FERR 127.3 ng/mL Normal 30.0-400.0 [facility] Comment on above: Performed By: #### V ITD, MG, PHOS, FERR, CBCAD, FE Prof, CMP #### [facility] [address] [place], [place] [id number] Iron Profileon 10-08-2021 %FESAT 13 % Low 15-60 [facility] Comment on above: Performed By: #### V ITD, MG, PHOS, FERR, CBCAD, FE Prof, CMP #### [facility] [address] [place], [place] [id number] FE 41 ug/dL Low 50-180 [facility] Comment on above: Result Comment: Refe rence range change 09/09/2017. Prior reference range F 37-145 ug/dL, M 59-158 ug/dL. Performed By: #### V ITD, MG, PHOS, FERR, CBCAD, FE Prof, CMP #### [facility] [address] [place], [place] [id number] TIBC 318 ug/dL Normal 250-[address] [facility] Comment on above: Performed By: #### V ITD, MG, PHOS, FERR, CBCAD, FE Prof, CMP #### [facility] [address] [place], [place] [id number] UIBC 277 ug/dL Normal 112-[address] [facility] Comment on above: Performed By: #### V ITD, MG, PHOS, FERR, CBCAD, FE Prof, CMP #### [facility] [address] [place], [place] [id number] Magnesiumon 10-08-2021 Magnesium [Mass/Vol] 1.9 mg/dL Normal 1.5-2.3 [facility] [place] Comment on above: Performed By: #### V ITD, MG, PHOS, FERR, CBCAD, FE Prof, CMP #### [facility] [address] [place], [place] [id number] Phosphoruson 10-08-2021 Phosphate [Mass/Vol] 2.4 mg/dL Normal 2.2-4.4 [facility] [place] Comment on above: Performed By: #### V ITD, MG, PHOS, FERR, CBCAD, FE Prof, CMP #### [facility] [address] [place], [place] [id number] Q - VITAMIN B1 PLASMAon 09-23 VITAMIN B1 (THIAMINE), SERUM/PLASMA, LC/MS/MS <6 Low 8-[address] [facility] Comment on above: Order Comment: [facility] performed at: [facility], [facility], [address], [place], [place], , Medical Reviewer: Alexis Abbott M.D.,PhDQuest Collection Date/Time: [id number] Results Received Date/Time: [id number] Reported Date/Time: [id number] Result Comment: Yolande min supplementation within 24 hours prior to blood draw may affect the accuracy of the results. This test was developed and its analytical performance characteristics have been determined by [facility] [place], [place]. It has not been cleared or approved by the U.S. Food and Drug Administration. This assay has been validated pursuant to the CLIA regulations and is used for clinical purposes. Performed By: #### T RAMONA MCKAY LIPD #### [facility] [address] [place], [place] [id number] Vitamin B12/Folateon 021 Cobalamin (Vitamin B12) [Mass/Vol] 523 pg/mL Normal 211-946 [facility] Comment on above: Performed By: #### T RAMONA MCKAY LIPJose R #### [facility] [address] [place], [place] [id number] FOL 8.2 ng/mL Normal >4.7 [facility] Comment on above: Result Comment: Refe rence range change 09/09/2017. Prior reference range F 4.8-37.3 ng/mL, M 4.5-32.2 ng/mL. Performed By: #### T RAMONA MCKAY LIPD #### [facility] [address] [place], [place] [id number] Vitamin D 25-OHon 10-08-2021 VIT D 25 OH 25 ng/ml Low >29 [facility] Alumni Relations Manager Comment on above: Result Comment: Yolande min D Status Deficiency <20 ng/mL Insufficiency 20-29 ng/mL Optimal 30-100 ng/mL Possible Toxicity >=150 ng/mL Performed By: #### T RAMONA MCKAY LIPD #### [facility] [address] [place], [place] [id number] CT ABD/PELVIS WO CONon 09-01 CT ABD/PELVIS [...] Ema WALSH Date: 2021-08-31 23:19 Normal [facility] AMYLASEon 08-31-2021 Amylase [Catalytic activity/Vol] 34 U/L Normal 31-110 [facility] Comment on above: Performed By: #### L IPA, MIHAELA, CMP #### [facility] [address] [place] [address] Dr. Chris Real CBC AUTO DIFFon 08-31-2021 BASO # 0.1 103/ul Normal 0.0-0.1 [facility] Comment on above: Performed By: #### C BC #### [facility] [address] [address] [address] Chris Real Basophils/100 WBC (Bld) 0.6 % Normal 0.2-2.0 [facility] Comment on above: Performed By: #### C BC #### [facility] [address] [place] [address] Dr. Chris Real EO # 0.2 103/ul Normal 0.0-0.7 [facility] Comment on above: Performed By: #### C BC #### [facility] [address] [place] [address] Dr. Chris Real Eosinophils/100 WBC (Bld) 2.3 % Normal 0.9-7.0 [facility] Comment on above: Performed By: #### C BC #### [facility] [address] [place] [address] Dr. Chris Real Erythrocyte distribution width (RBC) [Ratio] 14.6 % Normal 11.0-15.0 [facility] Comment on above: Performed By: #### C BC #### [facility] [address] [place] [address] Dr. Chris Real Hematocrit (Bld) [Volume fraction] 38.6 % Critically low 42.0-54.0 [facility] Comment on above: Performed By: #### C BC #### [facility] [address] [place] [address] Dr. Chris Real Hemoglobin (Bld) [Mass/Vol] 12.6 g/dL Critically low 14.0-18.0 [facility] Comment on above: Performed By: #### C BC #### [facility] [address] [place] [address] Dr. Chris Real IG # 0.02 10e3/ul Normal 0.00-0.03 [facility] Comment on above: Performed By: #### C BC #### [facility] [address] [place] [address] Dr. Chris Real IG % 0.2 % Normal 0.0-0.5 [facility] Comment on above: Performed By: #### C BC #### [facility] [address] [place] [address] Dr. Chris Real LYMPH # 1.9 103/ul Normal 1.2-3.8 [facility] Comment on above: Performed By: #### C BC #### [facility] [address] [place] [address] Dr. Chris Real Lymphocytes/100 WBC (Bld) 23.8 % Normal 20.5-60.0 [facility] Comment on above: Performed By: #### C BC #### [facility] [address] [place] [address] Dr. Chris Real MANUAL DIFF REQ NO Normal [facility] Comment on above: Performed By: #### C BC #### [facility] [address] [place] [address] Dr. Chris Real MCH (RBC) [Entitic mass] 29.1 pg Normal 25.9-34.0 [facility] Comment on above: Performed By: #### C BC #### [facility] [address] [place] [address] Dr. Chris Real MCHC (RBC) [Mass/Vol] 32.6 g/dL Normal 29.9-35.2 [facility] Comment on above: Performed By: #### C BC #### [facility] [address] [place] [address] Dr. Chris Real MCV (RBC) [Entitic vol] 89.1 fL Normal 80.0-94.0 [facility] Comment on above: Performed By: #### C BC #### [facility] [address] [place] [address] Dr. Chris Real MONO # 0.8 103/ul Normal 0.3-0.8 [facility] Comment on above: Performed By: #### C BC #### [facility] [address] [place] [address] Dr. Chris Real Monocytes/100 WBC (Bld) 10.3 % Normal 1.7-12.0 [facility] Comment on above: Performed By: #### C BC #### [facility] [address] [place] [address] Dr. Chris Real NEUT # 5.1 103/ul Normal 1.4-6.5 [facility] Comment on above: Performed By: #### C BC #### [facility] [address] [place] [address] Dr. Chris Real Neutrophils/100 WBC (Bld) 62.8 % Normal 43.0-75.0 [facility] Comment on above: Performed By: #### C BC #### [facility] [address] [place] [address] Dr. Chris Real Platelet mean volume (Bld) [Entitic vol] 10.4 fL Normal 9.5-13.5 [facility] Comment on above: Performed By: #### C BC #### [facility] [address] [place] [address] Dr. Chris Real PLT 325 103/ul Normal 150-450 [facility] Comment on above: Performed By: #### C BC #### [facility] [address] [place] [address] Dr. Chris Real RBC 4.33 106/ul Critically low 4.70-6.10 [facility] Comment on above: Performed By: #### C BC #### [facility] [address] [place] [address] Dr. Chris Real WBC 8.1 103/ul Normal 4.0-11.0 [facility] Comment on above: Performed By: #### C BC #### [facility] [address] [place] [address] Dr. Chris Real Covid-19 PCR ([facility])on SARS-CoV-2 (COVID-19) RNA GAIL+probe Ql (Unsp spec) Not detected Normal NOT DETECTED [facility] Comment on above: Result Comment: When diagnostic testing is negative, the possibility of a false negative should be considered in the context of a patient's recent exposures and the presence of clinical signs and symptoms consistent with SARS-CoV-2. This test is not yet approved or cleared by the [place] Food and Drug Administration (FDA). This test was developed by [employer], [place], [place]. The performance characteristics of this test were validated by [facility]. The results are not intended to be used as the sole means for clinical diagnosis or patient management decisions. [facility] is authorized under Clinical Laboratory Improvement Amendments (CLIA) to perform high- complexity testing. Performed By: #### C VDTBH #### [facility] [address] [place] [address] Dr. Chris Real LIPASEon 08-31-2021 Lipase [Catalytic activity/Vol] 109.0 U/L Normal 23.0-300.0 [facility] Comment on above: Performed By: #### L MIHAELA SO, CMP #### [facility] [address] [place] [address] Dr. Chris Real PROF 14(COMP METB)on 021 Albumin [Mass/Vol] 2.7 g/dL Critically low 3.5-5.0 Th [facility] Comment on above: Performed By: #### L MIHAELA SO, CMP #### [facility] [address] [place] [address] Dr. Chris Real Albumin/Globulin [Mass ratio] 0.6 {ratio} Normal [facility] Comment on above: Performed By: #### L MIHAELA SO, CMP #### [facility] [address] [place] [address] Dr. Chris Real ALP [Catalytic activity/Vol] 110 U/L Normal 38-126 [facility] Comment on above: Performed By: #### L SARAY MIHAELA, CMP #### [facility] [address] [place] [address] Dr. Chris Real ALT [Catalytic activity/Vol] 19 U/L Critically low 21-72 [facility] Comment on above: Performed By: #### L IPA MIHAELA, CMP #### [facility] [address] [place] [address] Dr. Chris Rael Anion gap [Moles/Vol] 12.8 mmol/L Normal Th e [facility] Comment on above: Performed By: #### L MIHAELA SO, CMP #### [facility] [address] [place] [address] Dr. Chris Real AST [Catalytic activity/Vol] 23 U/L Normal 17-59 [facility] Comment on above: Performed By: #### L MIHAELA SO, CMP #### [facility] [address] [place] [address] Dr. Chris Real Bilirubin [Mass/Vol] 1.0 mg/dL Normal 0.2-1.3 [facility] Comment on above: Performed By: #### L MIHAELA SO, CMP #### [facility] [address] [place] [address] Dr. Chris Real Calcium [Mass/Vol] 8.6 mg/dL Normal 8.4-10.2 [facility] Comment on above: Performed By: #### L MIHAELA SO, CMP #### [facility] [address] [place] [address] Dr. Chris Real Chloride [Moles/Vol] 98 mmol/L Normal 98-107 [facility] Comment on above: Performed By: #### L MIHAELA SO, CMP #### [facility] [address] [place] [address] Dr. Chris Real CO2 [Moles/Vol] 29.1 mmol/L Normal 22.0-30.0 [facility] Comment on above: Performed By: #### L MIHAELA SO, CMP #### [facility] [address] [place] [address] Dr. Chris Real Creatinine [Mass/Vol] 1.16 mg/dL Normal 0.66-1.25 [facility] Comment on above: Performed By: #### L MIHAELA SO, CMP #### [facility] [address] [place] [address] Dr. Chris Real EGFR-AF ESTONIAN >60 Normal >=60 [facility] Comment on above: Performed By: #### L MIHAELA SO, CMP #### [facility] [address] [place] [address] Dr. Chris Real EGFR-NON AF ESTONIAN >60 Normal >=60 [facility] Comment on above: Performed By: #### L MIHAELA SO, CMP #### [facility] [address] [address] [address] Chris Real Globulin (S) [Mass/Vol] 4.4 g/dL Normal T [facility] Comment on above: Performed By: #### L MIHAELA SO, CMP #### [facility] [address] [address] [address] Chris Real Glucose [Mass/Vol] 106 mg/dL Normal 74-106 [facility] Comment on above: Performed By: #### L MIHAELA SO CMP #### [facility] [address] [address] [address] Chris Real Potassium [Moles/Vol] 2.9 mmol/L Critically low 3.4-5.0 [facility] Comment on above: Result Comment: TEST REPEATED; CRITICAL VALUE VERIFIED Performed By: #### L MIHAELA SO, CMP #### [facility] [address] [address] [address] Chris Real Protein [Mass/Vol] 7.1 g/dL Normal 6.1-8.2 [facility] Comment on above: Performed By: #### L MIHAELA SO, CMP #### [facility] [address] [address] [address] Chris Real Sodium [Moles/Vol] 137 mmol/L Normal 137-145 [facility] Comment on above: Performed By: #### L MIHAELA SO, CMP #### [facility] [address] [address] [address] Chris Real Urea nitrogen [Mass/Vol] 12.0 mg/dL Normal 9.0-20.0 [facility] Comment on above: Performed By: #### L MIHAELA SO, CMP #### [facility] [address] [address] [address] Chris Real Urea nitrogen/Creatinine [Mass ratio] 10.3 mg/mg Normal [facility] Comment on above: Performed By: #### L MIHAELA SO, CMP #### [facility] [address] [address] [address] Chris Real US RUSSEL DOP LEG [...] by: KOFFI DAO Date: 2021-08-31 21:29 Normal [facility] XR CHEST 1 Von 08-31-2021 XR CHEST 1 V EXAM: XR CHEST 1 V HISTORY: SHORTNESS OF BREATH COMPARISON: Chest x-ray dated 03/22/2015. FINDINGS: Bilateral interstitial marking prominence. Cardiomegaly. No definite pneumothorax. IMPRESSION: Bilateral interstitial marking prominence and cardiomegaly concerning for pulmonary edema. Electronically authenticated by: LALO HICKMAN Date: 2021-08-31 21:52 Normal [facility] Ambulatory Clinical Summaryo n 02-24-2021 Ambulatory Clinical Summary {[id number] D:[id number] Normal [facility] Patient Educationon 02-25-20 21 Patient [...] Document Reviewed: 06/14/2008 ExitCare? Patient Information ?[address] [facility] Urology Office/Clinic Noteon 02-24-2021 Urology Office/Clinic [...] Urnls Dip Stick Auto w/o Microscopy POC 95498 I have reviewed the previous health record information and history for this pt. from Dr. Caballero. Follow-up With When Contact Information Federico Tavarez MD, Rene Wallace, [facility] [address] [place] [address] [place] [address]- Additional Instructions: prn Patient Education Benign Prostatic [...] replacement, [place] (more content not included)... Normal [facility] Comment on above: Result Comment: Elec tronically Signed By: Rene Caballero Jr., MD\.br\Date and Time Signed: 02/24/21 13:11 EDT\.br\Electronically Co-Signed By: Radha Lan MA\.br\Date and Time Co-Signed: 02/24/21 11:29 EDT Provider Letteron 02-03-2021 Provider Letter (Inserted Image. Aleshia ble to display) February 03, 2021 INDIO COLLADO [address] [place] [id number] INDIO COLLADO 1955 Dear Indio , You [...] [facility] [address], [place] [address] [facility] Physician Referralon 021 Physician Referral [id number]:127 Normal [facility] ECG 12-Leadon 12-02-2020 ECG 12-Lead [id number]#1.00CD:[address] [facility] Lab Reportson 12-02-2020 Lab Reports [id number]#1.00CD:[address] [facility] Lab Reports [id number]#1.00CD:[address] [facility] Lab Reports [id number]#1.00CD:[address] [facility] Lab Reports [id number]#1.00CD:12 7 Normal [facility] RAD - MISCon 12-02-2020 RAD - MISC [id number]#1.00CD:12 7 Normal [facility] Operative Reporton Operative Report [id number]#1.00CD:12 7 Normal [facility] Ambulatory Clinical Summaryo n 11-13-2020 Ambulatory Clinical Summary {[id number] D:[id number] Normal [facility] Patient Educationon 11-13-19 Patient Education [...] Document Reviewed: 08/07/2010 ExitCare? Patient Information ?2013 [employer]. Normal [facility] Physician Orderon 11-13-2020 Physician Order [id number]#1.00CD:12 7 Normal [facility] Pre-Authorization for Medica l Treatmenton 11-13-2020 Pre-Authorization for Medical Treatment [id number]:1 27 Normal [facility] Urology Office/Clinic Noteon 11-13-2020 Urology Office/Clinic [...] month fu w/ CT. CT done at [facility] on 10/17/2020 Pt states that he [...] Present Illness Reviewed urine and CT from [facility]. There have been no associated fever, [...] Urnls Dip Stick Auto w/o Microscopy POC 16929 Urology Procedure Order 3. Nocturia (R35.1: Nocturia) [...] Information Federico Tavarez MD, Rene Wallace [address] Additional Instructions: Patient Education Kidney Stones, Ihxv-tw-Cycl IRadha , personally scribed for Dr. Caballero on 11/13/2020 09:19:01. . Documentation recorded by the scribe, Radha Lan, accurately reflects the services(s) I performed and decisions m (more content not included)... Normal [facility] Comment on above: Result Comment: Elec tronically Signed By: Rene Caballero Jr., MD\.br\Date and Time Signed: 11/13/20 09:42 EST\.br\Electronically Co-Signed By: Radha Lan MA\.br\Date and Time Co-Signed: 11/13/20 09:19 EST RAD - CT Reporton 10-31-2020 RAD - CT Report [id number]:12 7 Normal [facility] Vital Signs Date Time Vital Sign Value Performing Clinician Facility 09-03-2024 09:46-0500 Body height 175.3 cm Nando Cardenas DPM Work Phone: [facility] 09-03-2024 09:46-0500 Body mass index (BMI) [Ratio] 25.84 kg/m2 Nando Cardenas DPM Work Phone: [facility] 09-03-2024 09:46-0500 Body weight 79.38 kg Nando Theresa DPM Work Phone: [facility] 07-30-2024 15:53-0400 Body height 175.3 cm Juhi Hemmer PA Work Phone: [facility] 07-30-2024 15:53-0400 Body mass index (BMI) [Ratio] 25.87 kg/m2 Juhi Hemmer PA Work Phone: [facility] 07-30-2024 15:53-0400 Body weight 79.47 kg Juhi Hemmer PA Work Phone: [facility] 07-30-2024 15:53-0400 Diastolic blood pressure 82 mm[Hg] Juhi Hemmer PA Work Phone: [facility] 07-30-2024 15:53-0400 Heart rate 66 /min Juhi Hemmer PA Work Phone: [facility] 07-30-2024 15:53-0400 Respiratory rate 16 /min Juhi Hemmer PA Work Phone: [facility] 07-30-2024 15:53-0400 SaO2% (BldA) [Mass fraction] 97 % Juhi Hemmer PA Work Phone: [facility] 07-30-2024 15:53-0400 Systolic blood pressure 120 mm[Hg] Juhi Hemmer PA Work Phone: [facility] 12-05-2023 09:55-0500 Body mass index (BMI) [Ratio] 29.51 kg/m2 Juhi Hemmer PA Work Phone: [facility] 12-05-2023 09:55-0500 Body temperature 99 [degF] Juhi Hemmer PA Work Phone: [facility] 12-05-2023 09:55-0500 Body weight 90.63 kg Juhi Hemmer PA Work Phone: [facility] 12-05-2023 09:55-0500 Diastolic blood pressure 100 mm[Hg] Juhi Hemmer PA Work Phone: [facility] 12-05-2023 09:55-0500 Heart rate 102 /min Juhi Hemmer PA Work Phone: [facility] 12-05-2023 09:55-0500 Respiratory rate 16 /min Juhi Hemmer PA Work Phone: [facility] 12-05-2023 09:55-0500 SaO2% (BldA) [Mass fraction] 98 % Juhi Hemmer PA Work Phone: [facility] 12-05-2023 09:55-0500 Systolic blood pressure 162 mm[Hg] Juhi Hemmer PA Work Phone: [facility] 11-08-2023 09:49-0500 Body height 175.3 cm Helen Gonzalez MD Work Phone: [facility] 11-08-2023 09:49-0500 Body mass index (BMI) [Ratio] 29.09 kg/m2 Helen Gonzalez MD Work Phone: [facility] 11-08-2023 09:49-0500 Body weight 89.36 kg Helen Gonzalez MD Work Phone: [facility] 11-08-2023 09:49-0500 Diastolic blood pressure 86 mm[Hg] Helen Gonzalez MD Work Phone: [facility] 11-08-2023 09:49-0500 Heart rate 48 /min Helen Gonzalez MD Work Phone: [facility] 11-08-2023 09:49-0500 SaO2% (BldA) [Mass fraction] 99 % Helen Gonzalez MD Work Phone: [facility] 11-08-2023 09:49-0500 Systolic blood pressure 160 mm[Hg] Helen Gonzalez MD Work Phone: [facility] 11-09-2022 12:47-0500 Diastolic blood pressure 88 mm[Hg] Fredrick Boothby DO Work Phone: [employer] 11-09-2022 12:47-0500 Heart rate 76 /min Fredrick Boothby DO Work Phone: [facility] 11-09-2022 12:47-0500 Respiratory rate 10 /min Fredrick Alsbridgeothby DO Work Phone: [facility] 11-09-2022 12:47-0500 SaO2% (BldA) [Mass fraction] 100 % Fredrick Boothby DO Work Phone: [facility] 11-09-2022 12:47-0500 Systolic blood pressure 162 mm[Hg] Fredrick Boothby DO Work Phone: [facility] 11-09-2022 12:17-0500 Body temperature 97 [degF] Fredrick Alsbridgeothby DO Work Phone: [facility] 11-09-2022 11:14-0500 Body height 175.3 cm Fredrick Alsbridgeothby [employer] Work Phone: [facility] 11-09-2022 11:14-0500 Body mass index (BMI) [Ratio] 29.98 kg/m2 Fredrick Alsbridgeothby [employer] Work Phone: [facility] 11-09-2022 11:14-0500 Body weight 92.08 kg Fredrick Alsbridgeothby [employer] Work Phone: [facility] [employer] 10-05-2022 10:14-0500 Body height 175.26 cm II Christopher Velazquez Work Phone: [facility] 10-05-2022 10:14-0500 Body mass index (BMI) [Ratio] 31.4 kg/m2 II Christophersimon Velazquez Work Phone: [facility] 10-05-2022 10:14-0500 Body weight 96.61 kg II Christopher Velazquez Work Phone: [facility] 10-05-2022 09:45-0500 Body temperature 97.5 [degF] II Christopher Velazquez Work Phone: [facility] 10-05-2022 09:45-0500 Diastolic blood pressure 84 mm[Hg] II Chrsitopher Velazquez Work Phone: [facility] 10-05-2022 09:45-0500 Heart rate 68 /min II Christopher Velazquez Work Phone: [facility] 10-05-2022 09:45-0500 Respiratory rate 18 /min II Christopher Velazquez Work Phone: [facility] 10-05-2022 09:45-0500 Systolic blood pressure 160 mm[Hg] II Christopher Velazquez Work Phone: [facility] 09-30-2022 13:59-0500 Body temperature 97.9 [degF] II Christopher Velazquez Work Phone: [facility] 09-30-2022 13:59-0500 Diastolic blood pressure 83 mm[Hg] II Christopher Velazquez Work Phone: [facility] 09-30-2022 13:59-0500 Heart rate 56 /min II Christopher Velazquez Work Phone: [facility] 09-30-2022 13:59-0500 SaO2% (BldA) [Mass fraction] 95 % II Christopher Velazquez Work Phone: [facility] 09-30-2022 13:59-0500 Systolic blood pressure 135 mm[Hg] II Christopher Velazquez Work Phone: [facility] 09-30-2022 07:45-0500 Respiratory rate 18 /min II Christopher Velazquez Work Phone: [facility] 09-29-2022 07:28-0500 Body height 175.26 cm II Christopher Velazquez Work Phone: [facility] 09-26-2022 05:50-0500 Body weight 105 kg II Christopher Velazquez Work Phone: [facility] Encounters Encounter Date Encounter Type Care Provider Facility Start: 09-18-2024 End: 09-18-2024 ambulatory [facility] Start: 09-12-2024 End: 09-12-2024 Refill Nando Cardenas DPM Work Phone: [facility] Comment on above: Metatarsalgia of bot h feet Start: 09-10-2024 End: 09-10-2024 Refill Zandra Gil [employer] Work Phone: [facility] Comment on above: Primary insomnia Start: 09-04-2024 End: 09-04-2024 Refill Emmie Stock [employer] [facility] Comment on above: Lumbar spondylosis Start: 09-03-2024 End: 09-03-2024 Bamboo flowsheet Nando Cardenas DPM Work Phone: [facility] Start: 09-03-2024 End: 09-03-2024 Bamboo flowsheet Nando Cardenas DPM Work Phone: [facility] Start: 09-03-2024 End: 09-03-2024 Office outpatient visit 25 minutes Nando Cardenas DPM Work Phone: [facility] Comment on above: Left foot pain (Prim rommel Dx); Right foot pain; Metatarsalgia of both feet; Equinus contracture of right ankle; Equinus contracture of left ankle Start: 09-03-2024 End: 09-03-2024 ambulatory NANDO CARDENAS Not Available Start: 08-22-2024 End: 08-22-2024 Refill [...] [facility] Start: 07-12-2024 End: 07-12-2024 ambulatory ALEXANDRE Joseph ARLETH Not Available Start: 07-10-2024 ambulatory CHRISTOPHER VELAZQUEZ [facility] Start: 07-09-2024 End: 07-31-2024 Telephone encounter Eva Sanchez DO Work Phone: [facility] Comment on above: surgery Start: 06-28-2024 End: 06-28-2024 ambulatory EVA SANCHEZ Not Available Start: 06-21-2024 End: 06-21-2024 ambulatory COLLEEN KOROMARADHA Not Available Start: 06-14-2024 End: 06-14-2024 ambulatory CHRISTOPHER VELAZQUEZ Not Available Start: 06-13-2024 End: 06-13-2024 ambulatory EVA SANCHEZ Not Available Start: 06-12-2024 End: 06-12-2024 ambulatory COLLEEN ABDI Not Available Start: 06-07-2024 End: 06-07-2024 ambulatory EVA SANCHEZ Not Available Start: 06-06-2024 End: 06-06-2024 ambulatory JOSEP PIERRE Not Available Start: 06-06-2024 End: 06-06-2024 ambulatory [facility] Start: 05-31-2024 End: 05-31-2024 ambulatory CHRISTOPHER VELAZQUEZ Not Available Start: 05-18-2024 End: 05-18-2024 ambulatory CHRISTOPHER VELAZQUEZ Not Available Start: 05-16-2024 End: 05-16-2024 ambulatory CHRISTOPHER VELAZQUEZ Not Available Start: 05-09-2024 End: 05-09-2024 ambulatory [facility] Start: 04-30-2024 ambulatory [facility] Start: 04-30-2024 End: 04-30-2024 ambulatory [facility] Start: 04-24-2024 End: 04-24-2024 ambulatory NANDO S THERESA Not Available Start: 04-17-2024 End: 04-17-2024 ambulatory NANDO S THERESA Not Available Start: 04-10-2024 End: 04-10-2024 ambulatory [facility] Start: 04-05-2024 End: 04-05-2024 ambulatory EVA SANCHEZ Not Available Start: 03-29-2024 End: 03-29-2024 ambulatory [facility] Start: 03-09-2024 End: 03-09-2024 ambulatory JUHI SULLIVAN Not Available Start: 03-08-2024 End: 03-08-2024 ambulatory [facility] Start: 03-02-2024 ambulatory CHRISTOPHER VELAZQUEZ [facility] Start: 03-02-2024 ambulatory CHRISTOPHER VELAZQUEZ [facility] Start: 02-29-2024 ambulatory [facility] Start: 02-29-2024 End: 02-29-2024 ambulatory [facility] Start: 02-14-2024 End: 02-14-2024 ambulatory [facility] Start: 01-28-2024 End: 01-29-2024 Emergency department patient visit LAUREN MARTIN [facility] Start: 01-17-2024 End: 01-17-2024 ambulatory NANDO S THERESA Not Available Start: 01-09-2024 End: 01-09-2024 ambulatory CHRISTOPHER VELAZQUEZ Not Available Start: 12-06-2023 End: 12-06-2023 Office outpatient visit 25 minutes Eva Sanchez DO Work Phone: [facility] Comment on above: Left shoulder pain, [...] 12-05-2023 Office outpatient visit 15 minutes Juhi Peterson Kirtkranthi PA Work Phone: [facility] Comment on above: Chronic obstructive pulmonary disease with acute exacerbation (CMS/HCC) (Primary Dx) Start: 12-05-2023 End: 12-05-2023 ambulatory JUHI SULLIVAN Not Available Start: 11-16-2023 End: 11-16-2023 ambulatory CHRISTOPHER VELAZQUEZ Not Available Start: 11-08-2023 End: 11-08-2023 ambulatory [facility] Start: 11-08-2023 End: 11-08-2023 Office outpatient visit 10 minutes Helen Gonzalez MD Work Phone: [facility] Comment on above: Venous insufficiency of both lower extremities (Primary Dx); Lymphedema of both lower extremities Start: 11-03-2023 End: 11-04-2023 ambulatory [facility] Start: 10-26-2023 Telephone encounter Helen Gonzalez MD Work Phone: [facility] Start: 10-25-2023 End: 10-25-2023 ambulatory EVA SANCHEZ Not Available Start: 10-11-2023 End: 10-11-2023 ambulatory [facility] Start: 01-10-2023 End: 01-10-2023 ambulatory CHRISTOPHER VELAZQUEZ [facility] Start: 11-09-2022 End: 11-09-2022 ambulatory FREDRICK BABIN [facility] Start: 11-09-2022 End: 11-09-2022 Subsequent hospital visit by physician Fredrick Babin DO Work Phone: [facility] Comment on above: Surgical site infect ion (Primary Dx); Post-op pain Start: 11-08-2022 End: 11-08-2022 ambulatory CHRISTOPHER VELAZQUEZ [facility] Start: 10-19-2022 End: 10-27-2022 Evaluation and management of inpatient FREDRICK BABIN [facility] Start: 10-14-2022 End: 10-14-2022 ambulatory CHRISTOPHER VELAZQUEZ [facility] Start: 10-05-2022 ambulatory Christopher Velazquez Facility:[facility] Start: 10-05-2022 End: 10-05-2022 ambulatory II Christopher Velazquez Work Phone: [facility] Work Phone: Start: 10-05-2022 End: 10-05-2022 Discharged Recurring II Christopher Velazquez Work Phone: [facility] Work Phone: Start: 09-11-2022 End: 09-30-2022 Evaluation and management of inpatient Gordon Smith Facility:[facility] Start: 09-11-2022 End: 09-30-2022 Evaluation and management of inpatient II Christopher Velazquez Work Phone: [facility] Work Phone: Start: 09-06-2022 ambulatory Marina Cheng Facility:[facility] Start: 09-05-2022 End: 09-11-2022 Evaluation and management of inpatient MICHAEL REINOSO [facility] Start: 09-05-2022 Emergency department patient visit CHRISTOPHER VELAZQUEZ [facility] Start: 09-03-2022 End: 09-04-2022 ambulatory Marina Cheng [...] Evaluation and management of inpatient CHRISTOPHER Morelia HARSHZACHARY Facility:[facility] Start: 10-22-2021 End: 10-22-[address] CHRISTOPHER [...] Td Vaccines (3 - Td or Tdap) [facility] Start: 09-05-2032 DTaP/Tdap/Td vaccine (3 - Td or Tdap) DTaP/Tdap/Td vaccine (3 - Td or Tdap) [facility] Start: 09-27-2029 Screening for malign ant neoplasm of colon [facility] Start: 11-08-2024 Adult BMI Screening Adult BMI Screen ing [facility] Start: 11-08-2024 Tobacco Screening Tobacco Screening [facility] Start: 10-15-2024 End: 10-15-2024 Patient encounter procedure 10/15/2024 1:15 PM EST Office Visit [facility] [address] [place] [id number] Nando Cardenas, DPM [address] [place] [address] [facility] Start: 10-13-2024 Tobacco Screening Tobacco Screening [facility] Start: 10-11-2024 Adult BMI Screening Adult BMI Screen ing [facility] Start: 08-18-2024 Urine screening for protein Diabetes: Urine Protein Screening [facility] Start: 07-30-2024 End: 07-30-2024 Patient encounter procedure 07/30/2024 4:00 PM EDT Office Visit [facility] [address] [facility] [address] [place] [address] Juhi Sullivan PA [address] [facility] [address] [place] [address] Arrived [facility] Comment on above: Arrived Start: 07-30-2024 End: 07-30-2025 MR Lumbar spine WO contrast MR lumbar spine wo contrast Imaging Routine Lumbar spondylosis Closed compression fracture of body of L1 vertebra (HCC) (CMS/HCC) Retrolisthesis of vertebrae Expected: 07/30/2024, Expires: 07/30/2025 [facility] Work Phone: Comment on above: Expected: 07/30/2024 , Expires: 07/30/2025 Start: 06-24-2024 Influenza vaccination Influenza Vacc ine (#1) [facility] Start: 06-09-2024 Hemoglobin A1c measurement Diabetes: Hemoglobin A1C [facility] Start: 02-07-2024 End: 02-07-2024 Patient encounter procedure 02/07/2024 1:00 PM EDT Office Visit [facility] [address] [place] [id number] [phone] Helen Gonzalez MD [address], [address] [place] [address] [facility] Start: 01-31-2024 End: 01-31-2024 Patient encounter procedure 01/31/2024 1:15 PM EDT Office Visit [facility] [address] [facility] [address] [place] [address] Eva Sanchez DO [address] [facility] [address] [place] [address] [facility] Start: 01-13-2024 Medicare Annual Well ness (AWV) Medicare Annual Wellness (AWV) [facility] Start: 12-19-2023 End: 12-19-2023 Patient encounter procedure 12/19/2023 2:30 PM EST Office Visit [facility] [address] [facility] [address] [place] [address] Christopher Velazquez MD [address] [facility] [address] [place] [address] [facility] Start: 12-05-2023 End: 12-05-2023 Patient encounter procedure 12/05/2023 10:00 AM EST Office Visit [facility] [address] [facility] [address] [place] [address] Juhi Sullivan PA [address] [facility] [address] [place] [address] Arrived [facility] Comment on above: Arrived Start: 11-08-2023 End: 11-08-2023 Patient encounter procedure 11/08/2023 10:10 AM EST Office Visit [facility] [address] [place] [address] Helen Gonzalez MD [address] [place] [address] [facility] Start: 11-03-2023 End: 11-03-2023 Patient encounter procedure 11/03/2023 2:30 PM EST Appointment [facility] [address] [place] [address] Helen Gonzalez MD [address] [place] [address] [facility] Start: 10-28-2023 Hemoglobin A1c measurement Diabetes: Hemoglobin A1C [facility] Start: 06-24-2023 COVID-19 Vaccine ( season) COVID-19 Vaccine ( season) [facility] Start: 11-22-2022 End: 11-22-2022 Patient encounter procedure 11/22/2022 Office Visit Orthopedic Surgery Fredrick Babin, DO [address] [address] [facility] Start: 11-15-2022 End: 11-15-2022 Patient encounter procedure 11/15/2022 Office Visit Orthopedic Surgery Fredrick Babin, DO [address] [id number] [facility] Start: 11-09-2022 End: 11-09-2022 ANKLE OPEN REDUCTION INTERNAL FIXATION ANKLE OPEN REDUCTION INTERNAL FIXATION Open wound of left ankle, initial encounter 11/09/2022 11:14 AM EST [facility] Start: 11-08-2022 Annual Wellness Visi t (AWV) Annual Wellness Visit (AWV) [facility] Start: 09-30-2022 [facility] Start: 09-19-2022 Referral to vascular surgeon [facility] Start: 09-11-2022 Hospital admission [facility] Start: 09-11-2022 Referral to clinical composition professor [facility] Start: 05-24-2022 Influenza vaccination [facility] (# 1) [facility] Start: 05-15-2022 Administration of varicella zoster vaccine Zoster (Shingles) Vaccine (2 of 2) [facility] Start: 05-15-2022 Shingles vaccine (2 of 2) Shingles vaccine (2 of 2) [facility] Start: 02-27-2022 Lipid panel Lipids [facility] [employer] Start: 12-10-2021 COVID-19 Vaccine (4 - Booster for Pfizer series) COVID-19 Vaccine (4 - Booster for Pfizer series) [facility] Start: 04-23-2021 Glaucoma screening Diabetes: R etinopathy Screening [facility] Start: 2021 Fall Risk Screening Fall Risk Screen [facility] Start: 2001 Screening for malign ant neoplasm of colon [facility] Start: 1974 Adult BMI Follow Up Plan Adult BMI Follow Up Plan [facility] Start: 1974 Diabetic foot examination Diabetic Foot Exam [facility] Start: 1974 Hepatitis C screening Hepatitis C sc reen [facility] Start: 1968 Depression Screen Depression Screen [facility] Start: 1968 [facility]ening [facility] Start: 1956 Glaucoma screening Diabetic Op hthalmology Exam [facility] Start: 1956 Medicare Annual Well ness Visit Medicare Annual Wellness Visit [facility] Start: 1956 Screening for malign ant neoplasm of colon [facility] End: 11-09-2022 INITIATE PACU OXYGEN THERAPY PROTOCOL Initiate PACU Oxygen Therapy Protocol Respiratory Care Routine Continuous until discontinued starting 11/09/2022 [facility] Work Phone: Comment on above: Continuous until dis continued starting 11/09/2022 Patient Education Deep Vein Thro mbosis (Blood Clots in the Legs) (DC) Apixaban Going Home on Blood Thinners [facility] Work Phone: Patient referral [facility] Work Phone: End: 11-09-2022 POC CHEM8 INCLUDES CALC. ANION GAP POC CHEM8 INCLUDES CALC. ANION GAP Point of Care Testing STAT One Time for 1 Occurrences starting 11/09/2022 until 11/09/2022 [facility] [employer] Work Phone: Comment on above: One Time for 1 Occur rences starting 11/09/2022 until 11/09/2022 [facility] Immunizations Immunization Date Immunization Notes Care Provider Fa [facility] 07-30-2024 Influenza, High-dose Seasonal, Quadrivalent, Preservative Free Juhi Hemkranthi PA Work Phone: [facility] 08-18-2023 Influenza, High-dose Seasonal, Quadrivalent, Preservative Free Juhi Hemkranthi PA Work Phone: [facility] 08-18-2023 influenza virus vacc ine, unspecified formulation Juhi Hemkranthi PA Work Phone: [facility] 09-05-2022 tetanus toxoid, redu vianey diphtheria toxoid, and acellular pertussis vaccine, adsorbed Fredrick Babin DO Work Phone: [facility] 07-05-2022 tetanus toxoid, redu vianey diphtheria toxoid, and acellular pertussis vaccine, adsorbed Juhi Hemmer PA Work Phone: [facility] 03-20-2022 zoster vaccine recombinant Juhi Hemmer PA Work Phone: [facility] 03-20-2022 zoster vaccine, unspecified formulation Helen Gonzalez MD Work Phone: [facility] 03-09-2022 Pneumococcal Conjuga te PCV 20 Juhi Hemmer PA Work Phone: [facility] 02-15-2022 pneumococcal polysaccharide vaccine, 23 valent Juhi Hemmer PA Work Phone: [facility] 09-10-2021 influenza, high dose seasonal, preservative-free Juhi Hemmer PA Work Phone: [facility] 09-09-2021 influenza, high dose seasonal, preservative-free Juhi Hemmer PA Work Phone: [facility] 02-23-2021 Pfizer Purple Cap SARS-CoV-2 Vaccination Juhi Hemmer PA Work Phone: [facility] 02-22-2021 Pfizer Purple Cap SARS-CoV-2 Vaccination Juhi Hemmer PA Work Phone: [facility] 01-26-2021 Pfizer Purple Cap SARS-CoV-2 Vaccination Juhi Hemmer PA Work Phone: [facility] 01-25-2021 Pfizer Purple Cap SARS-CoV-2 Vaccination Juhi Hemmer PA Work Phone: [facility] 08-25-2020 influenza, injectabl e, quadrivalent, preservative free Juhi Hemmer PA Work Phone: [facility] 08-06-2020 influenza, high dose seasonal, preservative-free Juhi Hemmer PA Work Phone: [facility] 08-13-2019 Influenza, injectabl e, Madin Janie Canine Kidney, quadrivalent with preservative Juhi Hemmer PA Work Phone: [facility] 08-13-2019 influenza, injectabl e, madin janie canine kidney, preservative free Juhi Hemmer PA Work Phone: [facility] 11-07-2018 influenza, injectabl e, quadrivalent, preservative free CHAPO Gibbonsel Marcus Work Phone: [facility] 08-02-2018 seasonal influenza, intradermal, preservative free Juhi Hemmer PA Work Phone: [facility] 08-31-2017 influenza, injectabl e, quadrivalent, preservative free Juhi Hemmer PA Work Phone: [facility] 08-25-2012 pneumococcal polysaccharide vaccine, 23 valent Juhi HANSEN Work Phone: [facility] 08-25-2012 seasonal influenza, intradermal, preservative free Juhi HANSEN Work Phone: [facility] Healthcare Payers Date Payer Category Payer Medicare (Managed Care) [employer] [id number] 2022 Unknown [id number] 2022 Medicare [id number] 2022 Self-pay 2022 Unknown [id number] 2022 Unknown 2017 Unknown [id number] 2017 Unknown [id number] 2017 Unknown [id number] 2015 Medicare [id number] 1959 Unknown [id number] 1956 Unknown [id number] 2.16.840.1.421219.3.579.2 .647 1956 Unknown [id number] 2.16.840.1.748821.3.579.2 .593 1956 Unknown [id number] 2.16.840.1.029555.3.579.2 .593 1956 Unknown [id number] 2.16.840.1.720544.3.579.2 .593 1956 Unknown [id number] 2.16.840.1.689167.3.579.2 .593 1956 Unknown [id number] 2.16.840.1.044010.3.579.2 .175 1956 Unknown [id number] 2.16.840.1.549334.3.579.2 .196 1956 Unknown [id number] 2.16.840.1.328454.3.579.2 .196 1956 Unknown [id number] 2.16.840.1.898575.3.579.2 .196 1956 Unknown [id number] 2.16.840.1.405497.3.579.2 .196 1956 Unknown [id number] 2.16.840.1.478537.3.579.2 .196 1956 Unknown [id number] 2.16.840.1.882936.3.579.2 .175 1956 Unknown [id number] 2.16.840.1.257763.3.579.2 .175 1956 Unknown [id number] 2.16.840.1.693714.3.579.2 .175 1956 Unknown [id number] 2.16.840.1.400540.3.579.2 .175 1956 Unknown [id number] 2.16.840.1.194269.3.579.2 .175 1956 Unknown [id number] 2.16.840.1.801784.3.579.2 .1286 1956 Unknown [id number] 2.16.840.1.097359.3.579.2 .1286 1956 Unknown [id number] 2.16.840.1.419438.3.579.2 .1286 1956 Unknown [id number] 2.16.840.1.081147.3.579.2 .1285 1956 Unknown [id number] 2.16.840.1.137628.3.579.2 .128 1956 Unknown [id number] 2.16.840.1.185497.3.579.2 .128 1956 Unknown [id number] 2.16.840.1.931586.3.579.2 .128 1956 Unknown [id number] 2.16.840.1.160813.3.579.2 .128 1956 Unknown [id number] 2.16.840.1.537754.3.579.2 .1258 1956 Unknown [id number] 2.16840.1.409380.3.579.2 .1258 1956 Unknown [id number] 2.16840.1.070523.3.579.2 .1258 1956 Unknown [id number] 2.16840.1.037559.3.579.2 .1258 1956 Unknown [id number] 2.16.840.1.445591.3.579.2 .1258 1956 Unknown [id number] 2.16840.1.823107.3.579.2 .1258 1956 Unknown [id number] 2.16.840.1.139080.3.579.2 .1258 1956 Unknown [id number] 2.16840.1.404941.3.579.2 .1258 1956 Unknown [id number] 2.16.840.1.391864.3.579.2 .1258 1956 Unknown [id number] 2.16.840.1.939643.3.579.2 .125 1956 Unknown [id number] 2.16.840.1.803453.3.579.2 .1258 1956 Unknown [id number] 2.16.840.1.215370.3.579.2 .1258 1956 Unknown [id number] 2.16.840.1.478598.3.579.2 .1258 1956 Unknown [id number] 2.16.840.1.068645.3.579.2 .1258 1956 Unknown [id number] 2.16.840.1.610965.3.579.2 .1258 1956 Unknown [id number] 2.16.840.1.918264.3.579.2 .1258 1956 Unknown [id number] 2.16.840.1.109301.3.579.2 .1258 1956 Unknown [id number] 2.16.840.1.810489.3.579.2 .1258 1956 Unknown [id number] 2.16.840.1.393031.3.579.2 .1258 1956 Unknown [id number] 2.16.840.1.096749.3.579.2 .1258 1956 Unknown [id number] 2.16.840.1.318621.3.579.2 .1258 1956 Unknown [id number] 2.16.840.1.092334.3.579.2 .1258 1956 Unknown [id number] 2.16.840.1.063176.3.579.2 .1258 1956 Unknown [id number] 2.16.840.1.593211.3.579.2 .1259 Private Health Insurance [facility] [id number] Unknown [id number] 2.16.840.1.117525.3.579.2 .531 Unknown [id number] 2.16.840.1.919496.3.579.2 .531 Social History Date Type Detail Facility Start: 09-06-2022 End: 04-17-2024 Tobacco smoking status GAIS Ex-smoker [facility] End: 10-24-2005 History of tobacco use Current smoker [facility] Phone: End: 10-24-2005 History of tobacco use Cigarette Smoker [facility] Phone: Start: 09-06-2022 End: 07-25-2023 Tobacco use and exposure Smokeless tobacco non-user [facility] Phone: Start: 11-09-2022 End: 09-03-2024 Alcohol intake Ex-drinker (finding) [facility] Phone: Start: 06-06-2013 Alcohol Comment occasional [facility] Phone: Start: 1955 Sex Assigned At Not on file [facility] Phone: Start: 10-09-2022 End: 10-19-2022 Exposure to SARS-CoV-2 (event) Not sure [facility] Start: 1955 Sex Assigned At Male [facility] Start: 05-30-2023 End: 07-25-2023 Cigarettes smoked current (pack per day) - Reported 1.5 [facility] Start: 10-13-2023 End: 11-08-2023 Alcohol intake Current [facility]dr[facility] Start: 05-30-2023 End: 10-13-2023 Tobacco use panel [facility] [employer] How hard is it for y ou to pay for the very basics like food, housing, medical care, and heating Not hard at all [facility] Within the last year , have you been afraid of your partner or ex-partner? No [facility] Work Phone: Do you belong to any clubs or organizations such as catholic groups, unions, fraternal or athletic groups, or [...] S Stl St Thrd Sm Hex - [id number] Start: 09-06-2022 Plate Bone L103m m 7 H Strl Lt Lat Dstl Fibular S Stl For - [id number] Start: 10-19-2022 Goals Date Patient Goal Desired Activity /State Personal health goal Comment on above: Formatting of this n ote might be different from the original. Evaluation of progress towards goal: Safe dc transition from hospital to home with family support. Functional Status Date Assessment Result Facility 09-30-2022 Functional status Patient is Pro gressing Toward [facility] Work Phone: 09-11-2022 Functional status Disability Sta tus Patient is Progressing Toward [facility] Work Phone: Mental Status Date Assessment Result Facility 09-30-2022 Cognitive function Cognitive Sta tus Patient at [facility] Work Phone: Clinical Notes 10-31-2020 to 11-26-2024 Telephone Encounter - JADE Porter - 09/04/2024 11:51 AM ESTTelephone Encounter - JADE Porter - 09/04/2024 11:51 AM Naz Cardenas DPM - 09/03/2024 10:00 AM EST Note Date & Type Note Facility 09-18-2024 Note [place] [facility] Consult [place] [facility] - [facility] Reason for visit: atrial fibrillation 09/18/24 Patient here for 3 mo follow up chronic systolic heart failure, PAF, CAD, and hypertension. Had echo in May 2024 after last apt which revealed normal EF. Denies chest pain, SOB, and bleeding on Eliquis. Sees the vein clinic for his LE. His pulse check reveals normal EF. Prior HPI: [place] Collado is a 69 y.o. [...] Determinants of Health Tobacco Use: Medium Risk (09/03/2024) Received from [facility] Patient History Smoking Tobacco Use: Former Smokeless Tobacco Use: Unknown Passive Exposure: Not on file Alcohol Use: Not At Risk (05/30/2023) Received from [facility] AUDIT-C Frequency of Alcohol Consumption: Monthly or less Average Number of Drinks: 1 or 2 Frequency of Binge Drinking: Never Financial Resource Strain: Low Risk (05/30/2023) Received from [facility] Overall Financial Resource Strain (CARDIA) Difficulty of Paying Living Expenses: Not hard at all Food Insecurity: No Food Insecurity (01/28/2024) [facility] Hunger Screening Within the past 12 months we worried whether our food would run out before we got money to buy more.: Never True Within the past 12 months the food we bought just didn't last and we didn't have money to get more.: Never True Transportation Needs: No Transportation Needs (05/30/2023) Received from [facility] PRAPARE - Transportation Lack of Transportation (Medical): No Lack of Transportation (Non-Medical): No Physical Activity: Sufficiently Active (05/30/2023) Received from [facility] Exercise Vital Sign Days of Exercise per Week: 7 days Minutes of Exercise per Session: 40 min Stress: No Stress Concern Present (05/30/2023) Received from [facility] [place] of Occupational Health - Occupational Stress Questionnaire Feeling of Stress : Only a little Social Connections: Moderately Integrated (05/30/2023) Received from [facility] Social Connection and Isolation Panel [NHANES] Frequency of Communication with Friends and Family: More than three times a week Frequency of Social Gatherings with Friends and Family: Once a week Attends Gnosticism Services: More than 4 times per year Active Member of Clubs or Organizations: Yes Attends Club or Organization Meetings: More than 4 times per year Marital Status: Intimate Partner Violence: Unknown (12/15/2023) [place] Safety & Environment Fear of Current or Ex-Partner: Not on file Emotionally Abused: Not on file Physically Abused: Not on file Sexually Abused: Not on file Physically or Sexually Abused: Not on file Depression: Not at risk (01/09/2024) [facility] PHQ-2 Patient Health Questionnaire-2 Score: 0 Housing Stability: Low Risk (05/30/2023) [facility] Housing Stability Vital Sign Unable to Pay for Housing in the Last Year: No Number of Places Lived in the Last Year: 1 Unstable Housing in the Last Year: No Utilities: Not on file Health Literacy: Adequate Health Literacy (06/05/2024) Received from [facility], [facility] B1300 Health Literacy Frequency of need for help (more content not included)... [facility] 09-04-2024 Telephone encounter Note OARRS reviewed, Rx sent into patient's pharmacy. [facility] 09-04-2024 Miscellaneous Notes OARRS reviewed, Rx sent into patient's pharmacy. documented in this encounter [facility] 09-03-2024 History of Present illness Narrative Images from the original note were not included. Subjective Patient ID: [place] Collado is a 69 y.o. male who presents for Foot Pain ( [place] Collado is a 69 y.o. male who presents for BL, left is worse, ball of foot pain. Patient has left Endovenous Laser procedure scheduled this Wed. 09/05. Patient relates all wounds are healed. ). HPI Established patient returns to clinic with bilateral foot pain. Patient states that he gets a lot of soreness near the metatarsals bilaterally. Worse with walking, standing but he states that even when he is off his feet his forefoot just seems to ache. He he has had power steps in the past with metatarsal pads added that have helped previously. Currently he is not wearing power steps because he states they are old and dirty. Review of Systems Constitutional: Negative for activity change and appetite change. Respiratory: Negative for chest tightness and shortness of breath. Cardiovascular: Positive for leg swelling. Negative for chest pain. Musculoskeletal: Positive for arthralgias and gait problem. Skin: Negative for color change and wound. Neurological: Negative for weakness and numbness. Psychiatric/Behavioral: Negative for agitation and behavioral problems. Hematological: Does not bruise/bleed easily. Endocrine: Negative for cold intolerance and heat intolerance. Allergic/Immunologic: Negative for immunocompromised state. Past medical History Past Medical History: Diagnosis Date Abdominal wall [...] problems Venous stasis ulcer Left Calf 2017 Medications Current Outpatient Medications: amiodarone (Pacerone) 100 MG tablet, Take 100 mg by mouth in the morning., Disp: , Rfl: atorvastatin (Lipitor) 80 MG tablet, TAKE 1 TABLET BY MOUTH EVERY DAY, Disp: 90 tablet, Rfl: 2 dapagliflozin (Farxiga) 10 MG, Take 10 mg by mouth in the morning., Disp: , Rfl: Dietary Management Product (Vasculera) tablet, Take 1 tablet by mouth in the morning., Disp: , Rfl: Eliquis 5 MG tablet, , Disp: , Rfl: fludrocortisone (Florinef) 0.1 MG tablet, Take 1 tablet (0.1 mg) by mouth at bedtime, Disp: 90 tablet, Rfl: 3 FLUoxetine (PROzac) 20 MG capsule, Take 20 mg by mouth in the morning., Disp: , Rfl: furosemide (Lasix) 20 MG tablet, Take 1 tablet in morning , 1 tablet in evening, Disp: 200 tablet, Rfl: 3 gabapentin (Neurontin) 300 MG capsule, Take 3 capsules by mouth in the morning , in the evening and before bedtime, Disp: 270 capsule, Rfl: 5 HYDROcodone-acetaminophen ([place]) 7.5-325 MG tablet, Take 1 tablet by mouth every 6 (six) hours if needed for severe pain for up to 15 days, Disp: 60 tablet, Rfl: 0 meloxicam (Mobic) 15 MG tablet, Take 1 tablet (15 mg) by mouth Daily, Disp: 90 tablet, Rfl: 0 metoprolol succinate XL (Toprol-XL) 25 MG 24 hr tablet, Take 25 mg by mouth in the morning., Disp: , Rfl: omeprazole (PriLOSEC) [address] capsule, TAKE 1 CAPSULE BY MOUTH EVERY DAY 30 MINUTES BEFORE MORNING MEAL FOR 90 DAYS, Disp: 100 capsule, Rfl: 3 potassium chloride CR (Klor-Con M10) 10 MEQ ER tablet, Take 20 mEq by mouth in the morning and 20 mEq in the evening., Disp: , Rfl: sacubitril-valsartan (Entresto) 24-26 MG tablet, Take 1 tablet by mouth in the morning and 1 tablet in the evening., Disp: , Rfl: tiZANidine (Zanaflex) 4 MG tablet, Take 1 tablet (4 mg) by mouth every 8 (eight) hours if needed for muscle spasms, Disp: 60 tablet, Rfl: 1 zolpidem (Ambien) 10 MG tablet, Take 1 tablet (10 mg) by mouth as needed at bedtime for sleep, Disp: 30 tablet, Rfl: 2 Allergies Penicillins, Morphine, and Doxycycline Past Surgical History Past Surgical History: Procedure Laterality Date ANKLE SURGERY Left 11/09/2022 Wound VAC BARIATRIC SURGERY 2020 BOWEL RESECTION CARDIAC CATHETERIZATION 2017 CARDIAC CATHETERIZATION 03/29/2024 CARDIOVERSION 2023 CARDIOVERSION 04/30/2024 CHOLECYSTECTOMY 2010 COLONOSCOPY 09/2019 CORONARY ANGIOPLASTY WITH STENT PLACEMENT CT ANGIOGRAM CHEST 11/17/2018 CT ANGIOGRAM CHEST [facility] CYSTOSCOPY CYSTOSCOPY 11/14/2019 with urethrotomy EGD EGD 09/2019 EYE SURGERY Right 07/26/2024 Caract extraction IR JOINT ASPIRATION KNEE SURGERY 02/15/2022 LAPAROSCOPY GASTRECTOMY PARTIAL / TOTAL 08/04/2021 LEG SURGERY Left 08/2022 TOE AMPUTATION Left 08/04/2023 LT 2nd toe TONSILLECTOMY TOTAL KNEE ARTHROPLASTY TOTAL KNEE ARTHROPLASTY 2014 Family History Family History Problem Relation Name Age of Onset Hypertension Mother Diabetes Mother Other (liver failure) Mother Deep vein thrombosis Mother Cancer Mother Heart disease Father Hypertension Father Stroke Father Cancer Sibling Throat cancer Cousin Objective Physical Exam HENT: Head: Normocephalic and atraumatic. Cardiovascular: Comments: DP, PT pulses palpable 1/4. Multiple telangiectasias and varicosities bilaterally. Lymphedema bilaterally with hemosiderin deposition and lipodermatosclerosis. Plus two pitting edema left foot and leg. Pulmonary: Effort: Pulmonary effort is normal. No respiratory distress. Abdominal: Palpations: There is no mass. Musculoskeletal: Cervical back: No rigidity. Comments: There is generalized soreness to palpation plantar 2nd, 3rd, 4th metatarsal heads bilaterally. No tenderness with stressing of the plantar plates. No tenderness with range of motion of the lesser toes. Muscle strength 5/5 for all quadrants. Ankle dorsiflexion 0 degrees with the knee extended, flexed bilaterally. Skin: Capillary Refill: Capillary refill takes less than 2 seconds. Findings: No lesion or rash. Neurological: Mental Status: He is alert. Comments: No loss of protective sensation, gross sensation intact. Psychiatric: Mood and Affect: Mood normal. Behavior: Behavior normal. Assessment/Plan ICD-10-CM 1. Left foot pain M79.672 2. Right foot pain M79.671 3. Metatarsalgia of both feet M77.41 meloxicam (Mobic) 15 MG tablet M77.42 4. Equinus contracture of right ankle M24.571 5. Equinus contracture of left ankle M24.572 Patient examined and evaluated. Reviewed previous imaging studies. Clinical symptomatology is consistent with lesser metatarsalgia. Patient has some fat pad atrophy in this area as well which is likely contributing to some of his symptomatology. He has had significant improvement with power step orthotics in the past. He has not been using them currently and I recommend that we restart power step therapy. Patient fitted for and dispensed power steps today. I also added custom foam metatarsal pad to further offload the metatarsal heads. Patient ambulated in the orthotics and stated that his feet felt much better. Additionally I recommend taking meloxicam daily for 1 month to try and reduce the symptomatology on the forefoot. I then recommend taking it on an as-needed basis. Prescription sent to his pharmacy. Lastly I recommend stretching exercises daily focusing on gastrocnemius contracture and intrinsic muscle strengthening all designed to reduce forefoot overload symptoms. Follow up 6 weeks. If he is still having issues repeat radiographs at that time. This note was created with the assistance of a speech recognition program. While intending to generate a timely document that accurately reflects the content of the visit, no guarantee can be provided that every grammatical or spelling mistake has been or will be identified or corrected. Thank you for your understanding. Nando Cardenas DPM documented in this encounter [facility] 08-22-2024 Telephone encounter Note OARRS reviewed, Rx sent into patient's pharmacy. [facility] 08-22-2024 Miscellaneous Notes OARRS reviewed, Rx sent into patient's pharmacy. documented in this encounter [facility] 07-30-2024 History of Present illness Narrative [...] for sleep 30 tablet 2 [DISCONTINUED] HYDROcodone-acetaminophen ([place]) 5-325 MG tablet Take 1 tablet by [...] TOTAL KNEE ARTHROPLASTY 2014 Visit Vitals BP 120/82 Pulse 66 Resp [...] for this visit: Lumbar spondylosis - HYDROcodone-acetaminophen ([place]) 7.5-325 MG tablet; Take 1 tablet by [...] report generated and reviewed. Provided pt with [place] 7.5 mg. Advised the goal will be [...] vaccination - Influenza, high-dose seasonal, quadrivalent, PF (QWK341) (Fluzone High Dose Quad North 0.7mL dose) Provided pt with flu shot today, he tolerated this well. Retrolisthesis of vertebrae Comments: L2-L3 Orders: - MR lumbar spine wo contrast; Future Will assess further with MRI. Follow up in about 3 months (around 10/30/2024) for Medication Follow Up. documented in this encounter [facility] 07-10-2024 Telephone encounter Note We did received cardiac clearance. Referral placed to Dr Willis, he is a shoulder specialist with [facility] in [place]. His phone number is [phone]. Call back with any questions. [facility] 07-10-2024 Miscellaneous Notes We did received cardiac clearance. Referral placed to Dr Willis, he is a shoulder specialist with [facility] in [place]. His phone number is [phone]. Call back with any questions. Pt called and left vm asking if received cardiac clearance yet from doctor, and if so he would like to schedule his sx. Please call him at [phone] documented in this encounter [facility] 07-09-2024 Telephone encounter Note Pt called and left vm asking if received cardiac clearance yet from doctor, and if so he would like to schedule his sx. Please call him at [phone] [facility] 06-06-2024 Note Pt is here for a one month follow up. Pt needs cleared for surgery. Review of Systems All other systems reviewed and are negative. [facility] 06-06-2024 Note Cardiovascular Medic ine [facility] SUBJECTIVE Chief Complaint Patient presents [...] fall along with phasing out working for [employer]. Denies c/o CP, dyspnea, orthopnea, PND, LE [...] work at 3 jobs. He works at [employer] and eats their food when he drinks. [...] working 3 jobs. He started working a [employer] last month, this is when he noticed the weight gain. He admits to eating food at [employer] and drinking more pop that he typically does. He admits he needs to slow down with his jobs. He will likely quit [employer]. He notes that since his gastric bypass [...] of skin (CMS/HCC) (more content not included)... [facility] 05-09-2024 Note Cardiovascular Medic [facility] SUBJECTIVE Chief Complaint Patient presents [...] work at 3 jobs. He works at [employer] and eats their food when he drinks. [...] gain. He admits to eating food at [employer] and drinking more pop that he typically does. He admits he needs to slow down with his jobs. He will likely quit [employer]. He notes that since his gastric bypass [...] thrombosis (CMS/HCC) H (more content not included)... [facility] 04-30-2024 Note DIRECT CARDIOVERSION PROCEDURE NOTE [...] consider ablation. Dave Pressley MD Cardiac Electrophysiology [facility] 04-30-2024 Note Patient: Indio sanders Procedure Information Date/Time: 04/30/24 0900 Procedure: Cardioversion - in three weeks Location: [facility] / [facility] (Cath) Providers: Dave Pressley MD Clinical information reviewed: Tobacco Allergies Meds Med Hx Surg Hx Fam Hx Physical Exam Airway Mallampati: II TM distance: >3 FB Neck ROM: full Cardiovascular Dental Pulmonary Abdominal Anesthesia Plan ASA 2 CSE Anesthetic plan and risks discussed with patient. Use of blood products discussed with patient who. Additional Equipment Requests [facility] 04-10-2024 Note [place] Electrophysiology Consult Note [place] Cardiology [facility] Reason for visit: atrial fibrillation [...] on file Intimate Partner Violence: Unknown (12/15/2023) [place] Safety & Environment Fear of Current or [...] alert, normal affec (more content not included)... [facility] 03-29-2024 Note Cardiovascular Labor atory Report [...] selective coronary angiography, placement of a 6 Yi Mynx boiling tub operator closure device METHODS: After risks, benefits, and [...] micropuncture kit was upsized to a 6 Yi 11 cm sheath. Angiography via the sheath [...] procedure. All catheters were removed. A 6 Yi Mynx closure device was deployed per protocol [...] ejection fraction, atrial fibrillation, coronary artery disease [facility] 03-08-2024 Note Cardiovascular Medic [facility] SUBJECTIVE Chief Complaint Patient presents [...] work at 3 jobs. He works at [employer] and eats their food when he drinks. [...] gain. He admits to eating food at [employer] and drinking more pop that he typically does. He admits he needs to slow down with his jobs. He will likely quit [employer]. He notes that since his gastric bypass [...] Cigarettes Smokeless tobacco (more content not included)... [facility] 03-08-2024 Note Patient here for fol [...] All other systems reviewed and are negative. [facility] 02-29-2024 Note Cardiology [place] Cardio version [...] No hemodynamic complications noted. Kristen Bai MD Meat Slicer - PGY5 [facility] I attest that I supervised this [...] neurological examination was intact. Ellen Taveras MD, [facility] 02-29-2024 Note H&P reviewed. The pa tient was examined and there are no changes to the H&P. The procedure was explained to the patient. The risks and benefits of the procedure were explained to the patient who showed understanding and with full capacity elected to proceed with the procedure. All questions were addressed and answered. Kristen Bai MD Meat Slicer - PGY5 [facility] 02-14-2024 Note Cardiovascular Medic [facility] SUBJECTIVE Chief Complaint Patient presents with [...] gain. He admits to eating food at [employer] and drinking more pop that he typically [...] dilTIAZem CD (Cardizem (more content not included)... [facility] 02-14-2024 Note Patient here for [facility] ED. He was diagnosed with [...] All other systems reviewed and are negative. [facility] 12-06-2023 History of Present illness Narrative Associated Order(s): Rodrigo Inj/Asp: L glenohumeral Post-Procedure Diagnose(s): Primary osteoarthritis [...] breaks. Tripped and fell 07/25/23, went to [facility] ER, had XR. Pain has [...] TYL, ice, heat, creams, depo injection 05/31/23, [facility] ER with XR 07/25/23, icy [...] left shoulder dated July 25, 2023 from [facility]. There is narrowing of the acromioclavicular [...] Greg Sanchez D.O. documented in this encounter [facility] 12-05-2023 History of Present illness Narrative [...] 2020 BOWEL RESECTION CARDIAC CATHETERIZATION 2018 CHOLECYSTECTOMY 2010 COLONOSCOPY 09/2019 CORONARY ANGIOPLASTY WITH STENT PLACEMENT [...] Appointment As Scheduled. documented in this encounter [facility] 11-08-2023 History of Present illness Narrative [...] for your understanding. documented in this encounter [facility] 10-26-2023 Miscellaneous Notes Good morning. Received call from patient's daughter stating that Dr. Gonzalez was supposed to order a cast for patient's leg and send to [facility]. Patient's daughter stated that there were no order when she contact the [facility] and would like to know what is going on. Patient can be reached at, or [phone]. Thank you very much. Patients girl friend is scheduling patients testing that has not been scheduled for patient at check out. Patient is now scheduled for testing and a follow up documented in this encounter [facility] 10-26-2023 Telephone encounter Note Good morning. Received call from patient's daughter stating that Dr. Gonzalez was supposed to order a cast for patient's leg and send to [facility]. Patient's daughter stated that there were no order when she contact the [facility] and would like to know what is going on. Patient can be reached at, or [phone]. Thank you very much. [facility] 10-26-2023 Telephone encounter Note Patients girl friend is scheduling patients testing that has not been scheduled for patient at check out. Patient is now scheduled for testing and a follow up [facility] 11-09-2022 Hospital Discharge instructions Shiloh Durham [...] his office on 11/15/21 at 1:00pm. Call [phone] with questions/concerns. No alcoholic beverages, no driving [...] your surgeon documented in this encounter [facility] [employer] Phone: 11-09-2022 History of Present illness Narrative Dr. Babin aware that pt took eliquis last night. documented in this encounter [facility] [employer] Work Phone: 10-05-2022 Progress note Note Date/Time October 05, 2022 10:14am [facility] [address] [place] [address] Wound Center Provider Note Signed Patient: Indio Collado MR#: [id number] : 1955 Acct:[id number] Age/Sex: 67 / M Copies to: MD Christopher Myers II, MD Seth Andrew Phillips DO Honey Hines APRN~ HPI Date of Visit Date of Visit: Date of Service: 10/05/2022 Time of Service: 10:04 Narrative HPI: 10/05/22 Indio is a 67 year old presenting to [facility] wound care program for an initial [...] start?: September 06, 2022 Mode of Arrival/ Welt Stitcher: Personal vehicle and Friend Assistive Device Used Today: Walker Lives with:: Alone Appetite Description: Within Normal Limits Who helps w/ dressing change?: Self Why Do You Need Help?: Can't Reach Ulcer and Limited mobility Smoking Status: Former smoker [facility] Medical History (Updated 10/05/22 @ 10:14 by Honey Copsey, ELECTRIC WHEELCHAIR REPAIRER) Arthritis BPH (benign prostatic hyperplasia) CAD (coronary [...] Abdomen: Type: Traumatic Thickness: Full Bed Appearance: Bache and Yellow Percent of Wound Bed Granulated/Red: 5 Percent of Devitalized: 95 Length (cm): 0.5 Width (cm): 11.2 Depth (cm): 0.1 CM Sq: 5.600 Surrounding Tissue Appearance: Bache Surrounding Tissue Temp: Warm Drainage Amount: None [...] Leg: Type: Traumatic Thickness: Full Bed Appearance: Bache Percent of Wound Bed Granulated/Red: 100 Percent [...] signed by MD Efrain Aquino> 10/05/22 [facility] Work Phone: 1(388) 571-589410-06-2022 NotePROCEDURE: XR KNEE RT 3V COMPARISON: 03/20/2015 HISTORY: Pain of joint of knee FINDINGS: BONES:Total knee arthroplasty with long stem components. No acute fracture, dislocation or mechanical failure. Patellar resurfacing SOFT TISSUES:Negative. No visible soft tissue swelling. EFFUSION:Small suprapatellar joint effusion. Vascular calcifications. OTHER: Negative. IMPRESSION: Total knee arthroplasty with small joint effusion Electronically authenticated by: INDIO MCKNIGHT Date: 2022-07-29 18:30[facility]09-21-2022 NotePROCEDURE: XR TIB_FIB LT 2V HISTORY: Open [...] Electronically authenticated by: THOMAS COLBERT Date: 2022-07-14 08:55[facility]05-17-2022 NoteMR#: [id number] [facility] Pt. Name: Indio Collado Rodrigo Admitted: 02/15/2022 Discharged: 02/16/2022 Date of : [...] Castorena MD Date Trans: 03/09/2022 10:38 A/laisha [id number] cc: Christopher Velazquez M.D. [address] [place] [address] Note [id number]:[address] [place] [address] Evaluation note* Diagnosis Surgical site infection- Primary Post-op pain Other acute postoperative pain Wound of left ankle documented [facility] this [facility] Work Phone: evaluation note* Diagnosis Onset Date [...] Surgical wound, non healing chronic Traumatic wound [facility] Work Phone: Evaluation note* Diagnosis Venous insufficiency of both lower extremities- Primary Lymphedema of both lower extremities [facility] Diagnosis Chronic obstructive pulmonary disease with acute exacerbation (CMS/HCC)- Primary [facility] Diagnosis Left shoulder pain, unspecified chronicity- Primary Rotator cuff tear arthropathy of 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 [facility] Diagnosis Lumbar spondylosis- Primary Lumbosacral spondylosis without myelopathy Closed compression fracture of body of L1 vertebra (HCC) (CMS/HCC) Need for vaccination Need for prophylactic vaccination and inoculation against unspecified single disease Retrolisthesis of vertebrae [facility] Diagnosis 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 [facility]* Diagnosis Lumbar spondylosis Lumbosacral spondylosis without myelopathy [facility]* Diagnosis Left foot pain- Primary Pain in soft tissues of limb Right foot pain Pain in soft tissues of limb Metatarsalgia of both feet Equinus contracture of right ankle Equinus contracture of left ankle documented in this encounter [facility]* Diagnosis Lumbar spondylosis Lumbosacral spondylosis without myelopathy [facility]* Diagnosis Metatarsalgia of both feet [facility]* Diagnosis Primary insomnia Persistent disorder of initiating or maintaining sleep documented in this encounter [facility] HealthcareInstructionsNot on filedocumented in this encounterProMedica Health SystemInstructionsNot on filedocumented in this encounterProMedior Health SystemReason for referral (narrative)* Consultation (Routine) - Authorized Specialty Diagnoses / Procedures Referred By Gladis hutton Referred To Contact Orthopaedic Surgery Diagnoses 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 Eva Sanchez DO [address] [address] Mac Willis MD [address] [place] [address] Referral ID Status Reason Start Date Expiration Date Visits Requested Visits Authorized [id number] Authorized Consult and Treat 07/10/2024 01/06/2025 1 1 [facility] Summary Purpose Family History No Family History Records Found Relationship Condition Age at Onset Recorded Date/T oralia father Heart disease Unknown Not Specified Malignant neoplasm Unknown brother Malignant neoplasm Unknown sister Malignant neoplasm Unknown Advance Directives No Advanced Directives Records FoundDocuments on File Type Date Recorded Patient Cloud Systems Architect Expl anation ACP-Advance Directive 09/14/2022 9:49 AM [...] Referral Specialty Diagnoses / Procedures Referred By Gladis hutton Referred To Contact Orthopaedic Surgery Diagnoses Primary osteoarthritis of left shoulder Procedures L Inj/Asp: L glenohumeral Eva Sanchez DO [address] [address] Referral ID Status Reason Start Date Expiration Date V isits Requested Visits Authorized [id number] Pending Review 12/06/2023 06/03/2024 1 1 Specialty Diagnoses / Procedures Referred By Contac t Referred To Contact Diagnoses Lumbar spondylosis Closed compression fracture of body of L1 vertebra (HCC) (CMS/HCC) Retrolisthesis of vertebrae Procedures MR lumbar spine wo contrast Juhi Sullivan, JADE [address] [facility] [address] [place] [address] Referral ID Status Reason Start Date Expiration Date V isits Requested Visits Authorized [id number] Pending Review 07/30/2024 01/26/2025 1 1 Additional [...] section and content) DATE CREATED AUTHOR 02/25/2021 [facility] DATE CREATED AUTHOR AUTHOR'S ORGANIZ ATION 03/13/2022 [facility] dical Specialist DATE CREATED AUTHOR AUTHOR'S ORGANIZ ATION 03/14/2022 [facility] DATE CREATED AUTHOR AUTHOR'S ORGANIZ ATION 08/02/2022 [facility] DATE CREATED AUTHOR AUTHOR'S ORGANIZ ATION 09/11/2022 [facility] DATE CREATED AUTHOR AUTHOR'S ORGANIZ ATION 09/11/2022 [facility] DATE CREATED AUTHOR AUTHOR'S ORGANIZ ATION 10/20/2022 [facility] DATE CREATED AUTHOR AUTHOR'S ORGANIZ ATION 01/12/2023 [facility] DATE CREATED AUTHOR AUTHOR'S ORGANIZ ATION 11/09/2023 [facility] DATE CREATED AUTHOR AUTHOR'S ORGANIZ ATION 01/29/2024 [facility] DATE CREATED AUTHOR AUTHOR'S ORGANIZ ATION 07/12/2024 [facility] DATE CREATED AUTHOR AUTHOR'S ORGANIZ ATION 09/04/2024 [facility] dical Specialists EPIC DATE CREATED AUTHOR AUTHOR'S ORGANIZ ATION 09/24/2024 [facility] Reason for Visit (unrecogniz ed section and content) Specialty Diagnoses / Procedures Referred By Gladis hutton Referred To Contact Diagnoses Open wound of left ankle, initial encounter OPEN WOUND LEFT ANKLE Procedures AK OFFICE/OUTPT VISIT,PROCEDURE ONLY AK OPEN TREATMENT MEDIAL MALLEOLUS FRACTURE ANKLE SPLIT THICKNESS SKIN GRAFT (3080 TABLE WITH REVERSE DIVING BOARD, SUPINE, DERMATOMES FOR GRAFT HARVESTING, WOUND VAC, CAN USE LMA FOR ANESTHESIA IF NEEDED) Fredrick Babin, DO [address] [facility] [address] [place] [address] [facility] [address] [place] [address] Referral ID Status Reason Start Date Expiration Date Visits Re quested Visits Authorized [id number] 1 1 Reason Comments Follow-up 2 week follow up; Ve nous insufficiency of both lower extremities; for further evaluation of his leg swelling; patient is having pain in both legs at a10+ Reason Comments Follow-up Reason Onset Date Comments surgery 07/09/2024 Reason Onset Date Comments Med Refill 08/22/2024 Reason Comments Foot Pain Indio Collado is a 69 y.o. male who presents for BL, left is worse, ball of foot pain. Patient has left Endovenous Laser procedure scheduled this Tue. 09/05. Patient relates all wounds are healed. Reason Onset Date Comments Med Refill 09/04/2024 Reason Comments Med Refill Reason Onset Date Comments Med Refill 09/10/2024 Ordered Prescriptions (unrec ognized section and content) [...] 20 mL IV syringe 2,000 mg, IntraVENous, GLOVE SEWER TO O.R., 1 dose, On Tue11/09/22 at [...] approved by provider., PACU only lidocaine-EPINEPHrine 1 %-1:861462 injection (CANCELED) PRN, Starting on Tue11/09/22 at [...] Care Teams (unrecognized sec tion and content) Marine Biologist Relationship Specialty Start Date End Date Christopher Velazquez MD [address] [facility] [address] [place] [address] PCP - General 06/06/13 Team Status: Inactive Member Role Status Dates Christopher Velazquez II MD Primary Care Provider Active Honey Hines APRN Attending Provider Active Team Status: Inactive Member Role Status Dates Christopher Velazquez II MD Primary Care Provider Active Gordon Smith MD Admit Provider, Attending Provider A humberto Savage , STERLING Other Provider Active Libertad Vazquez , STERLING Other Provider Active Taryn Sanders , STERLING Other Provider Active Marta Trevizo , STERLING Other Provider Active Carmenza Thomas , STERLING Other Provider Active Krystyna Carrillo , STERLING Other Provider Active Kimo Cary MD Other Provider Active Issac Dimas MD Other Provider Active Adeola M Dials , ELECTRIC WHEELCHAIR REPAIRER Other Provider Active Maurilio Murrell , DO Other Provider Active Jose Jensen MD Other Provider Active gJ Hamlin , DO Other Provider Active Abran [...] MD Other Provider Active Mihaela Miller , LABOR RELATIONS REPRESENTATIVE-C Other Provider Active Gen Reich MD Other Provider Active Gamal Bone MD Other Provider Active Imelda Riddle MD Other Provider Active Matthias Pablo MD Other Provider Active Giselle Jaquez , DO Other Provider Active Jak Vázquez MD Other Provider Active David Rossi , DO Other Provider Active Nando Roe , DO Other Provider Active Gina Fung , ELECTRIC WHEELCHAIR REPAIRER Other Provider Active Timothy Vaughan , DO Other Provider Active Jaime Trivedi MD Other Provider Active Katharine Caballero , ELECTRIC WHEELCHAIR REPAIRER Other Provider Active Debora Hunt RN Other Provider Active Fany Ford , HAIR SALON MANAGER Other Provider Active Jenae Mcgee , HAIR SALON MANAGER Other Provider Active Fer Mayfield MD Other Provider Active Jackie Berry , LABOR RELATIONS REPRESENTATIVE-C Other Provider Active Chaz Hurd MD Other Provider Active Chirag Hatch MD Other Provider Active Team Status: Active Member Role Status Dates Christopher Velazquez II MD Primary Care Provider Active Marine Biologist Relationship Specialty Start Date End Date Christopher Velazquez MD [address] [facility] [address] [place] [address] PCP - General Internal Medicine 10/27/17 Marine Biologist Relationship Specialty Start Date End Date Christopher Velazquez MD 112 [facility], [facility] [address] [place] [address] PCP - General Internal Medicine 10/27/17 Marine Biologist Relationship Specialty Start Date End Date Christopher Velazquez MD [address] [facility] [address] [place] [address] PCP - Devoted 10/24/22 Christopher Velazquez MD [address] [facility] [address] [place] [address] PCP - General Internal Medicine 03/28/23 Marine Biologist Relationship Specialty Start Date End Date Christopher Velazquez MD [address] [facility] [address] [place] [address] PCP - Devoted 10/24/22 Christopher Velazquez MD [address] [facility] [address] [place] [address] PCP - General Internal Medicine 03/28/23 Marine Biologist Relationship Specialty Start Date End Date Christopher Velazquez MD [address] [facility] [address] [place] [address] PCP - Devoted 10/24/22 Christopher Velazquez MD [address] [facility] [address] [place] [address] PCP - General Internal Medicine 03/28/23 Marine Biologist Relationship Specialty Start Date End Date Christopher Velazquez MD [address] [facility] [address] [place] [address] PCP - Devoted 10/24/22 Christopher Velazquez MD [address] [facility] [address] [place] [address] PCP - General Internal Medicine 03/28/23 Marine Biologist Relationship Specialty Start Date End Date Christopher Velazquez MD [address] [place] [address] PCP - Devoted 10/24/22 Christopher Velazquez MD [address] [place] [address] PCP - General Internal Medicine 03/28/23 Marine Biologist Relationship Specialty Start Date End Date Christopher Velazquez MD [address] [place] [address] PCP - Devoted 10/24/22 Chirstopher Velazquez MD [address] [place] [address] PCP - General Internal Medicine 03/28/23 Marine Biologist Relationship Specialty Start Date End Date Christopher Velazquez MD [address] [place] [address] PCP - Devoted 10/24/22 Christopher Velazquez MD [address] [place] [address] PCP - General Internal Medicine 03/28/23 Marine Biologist Relationship Specialty Start Date End Date Christopher Velazquez MD [address] [place] [address] PCP - Devoted 10/24/22 Christopher Velazquez MD [address] [place] [address] PCP - General Internal Medicine 03/28/23 Marine Biologist Relationship Specialty Start Date End Date Christopher Velazquez MD [address] [place] [address] PCP - Devoted 10/24/22 Christopher Velazquez MD [address] [place] [address] PCP - General Internal Medicine 03/28/23 Marine Biologist Relationship Specialty Start Date End Date Christopher Velazquez MD [address] [place] [address] PCP - Devoted 10/24/22 Christopher Velazquez MD [address] [place] [address] PCP - General Internal Medicine 03/28/23 Marine Biologist Relationship Specialty Start Date End Date Christopher Velazquez MD [address] [place] [address] PCP - Devoted 10/24/22 Christopher Velazquez MD [address] [place] [address] PCP - General Internal Medicine 03/28/23 FOR [...] BE BASED ON THE PRIMARY CLINICAL RECORDS. [employer] [facility]. provides no warranty or guarantee of the accuracy or completeness of information in this document.
--- NOTE | 2024-09-25 07:46 | VEIN_ITS ---
[address] [address] Patient Name: INDIO FUENTES MRN: [id number] date: 1955 Sex: M Assigned Patient Location: Current Patient Location: Accession/Order Number: [id number] Exam Date: 09/25/2024 08:18 Report Date: 09/25/2024 08:55 At the request of: THOMAS COLBERT Procedure: VC Endovenous Ablation 1VeinRT EXAMINATION: VC Endovenous Ablation 1Vein, right small saphenous vein HISTORY: I83.813 - Varicose veins of bilateral lower extremities w... COMPARISON: No relevant comparison available. TECHNIQUE: The risks and benefits of the procedure had been previously discussed, and were rediscussed at length. Informed written consent was obtained. Soco Agarwal and Mirna Lynch assisted. Time out procedure was performed. The right lower extremity was prepared and draped in the usual sterile fashion . Duplex ultrasound probe was draped in a sterile cover, sterile transmission gel was used. Venous mapping was performed with the areas of dilation and large tributaries marked. The total length was 20 cm from the entry 4 cm above the lateral malleolus to thrombus within the vein precluding treatment above this level. The diameter of the wall saphenous vein ranged from 4-6 mm. A 30 gauge needle and 1% buffered lidocaine was used to anesthetize the entry site. A 4 mm incision was made with a scalpel and the saphenous vein was entered percutaneously under direct ultrasound guidance with a micropuncture set, 2 sticks were required to advance the wire. The first stick was successful however the wire would not advance.. A micro-guide wire was inserted and the needle removed. A micro-set including a dilator was inserted over the microwire and the needle and dilator were removed. A 0.018 guide wire was inserted through the micro-set and threaded through the saphenous vein to the saphenofemoral junction. The dilator was removed and an introducer sheath was inserted over the wire until the end of the sheath entered the saphenofemoral junction. The dilator and wire were removed and the 600 micron fiber was introduced and placed and positioned so that it extended beyond the sheath and was 3 cm peripheral to the saphenofemoral femoral junction. Final position of the fiber was determined by ultrasound guidance and duplex imaging. Tumescent anesthetic was delivered by ultrasound guidance. 100 cc of fluid was delivered along the entire course of the saphenous vein. The solution consisted of 1000 cc of normal saline with 40 mL of 1% lidocaine and 20 mL of sodium bicarbonate. A final positioning check was made. The energy source was turned on by means of the foot pedal and the fiber and sheath were withdrawn. The total number of Joules delivered was 998. The laser was active for 125 seconds under continuous pulse, average laser use of 8 J. Laser start time 8:31 AM 09/25/2024 . Laser stop time 8:34 AM 09/25/2024 . A duplex ultrasound revealed compressibility and flow at the saphenofemoral junction immediately after the procedure. Hemostasis at the access site was achieved. The skin incision of the saphenous vein was closed with a 4 x 4. A compression stocking was applied. Postop instructions were given. A follow up appointment was recommended and scheduled. The patient tolerated the procedure well and was discharged in good condition . VEIN/VC Endovenous Ablation 1VeinRT IMPRESSION: Technically successful endovenous laser ablation of the right small saphenous vein Electronically authenticated by: INDIO MCKNIGHT Date: 09/25/2024 08:55
[2024-09-25 07:57] VITALS: BP 110/70; PULSE 48; O2SAT 98
[2024-09-25] MEDS: 0.9 % SODIUM CHLORIDE 500 ML, LIDOCAINE HCL 20 ML, SODIUM BICARBONATE 10 MEQ INJ (08:19)
[2024-09-25] MEDS: LIDOCAINE HCL 1% 100 MG/10 ML MDV INJ (08:19)
== END 2024-09-25 08:50 | disposition home or self-care (01) ==
LOC: VC 07:38
PROVIDERS: PCP Radiology Diagnostic Radiology; Visit Provider Radiology Diagnostic Radiology
DX: I83.813 Varicose veins of bilateral lower extremities with pain (principal)
CPT/HCPCS: 36478

== ENCOUNTER 2024-10-02 09:36 | Outpatient (OUT) | payer OTHER, SELFPAY ==
--- NOTE | 2024-10-02 07:50 | VEINCLINIC_ITS ---
Varicose Veins Patient in today for follow up ultrasound EVLT of right SSV. Alex Alvarado MD personally performed the services described in this documentation, as scribed by Tricia Agarwal RVT, RDMS in my presence and it is both accurate and complete. Tricia Alvarado RVT, RDMS, am scribing for, and in the presence of, Dr. Alex Villegas and in the presence of the patient. thigh: bilateral, knee: bilateral, calf: bilateral, ankle: bilateral and vasques: bilateral aching, cramping and sharp 10 7 years Worsened in recent months: Yes standing and sitting analgesics, elevating extremities and compression stockings Reports heaviness, limb pain, edema, leg edema and other History of lower extremity trauma: Yes Superficial thrombophlebitis: Yes Family history of varicose veins: yes Has patient had previous lower extremity venous surgery: No Patient has previously received the following treatment(s) for lower extremity varicose veins: Reports none Does patient have a history of : not applicable Does patient intend to have future pregnancies: not applicable Has patient had lower extremity venous scan with relux testing: Yes Support hose used: Yes Problems walking or doing physical activity: Yes How does it affect you: Hurts the worst at night and in the morning Do you walk much: Yes Do you stand much: Yes Review of Systems ROS Narrative Alex Alvarado MD personally performed the services described in this documentation, as scribed by Tricia Agarwal RVT, RDMS in my presence and it is both accurate and complete. Tricia Alvarado RVT, RDMS, am scribing for, and in the presence of, Dr. Alex Villegas and in the presence of the patient. Status of ROS 10 or more systems reviewed and unremark able except as noted in history and below Cardiovascular Reports: edema and swelling of feet/ankles Musculoskeletal Reports: extremity pain, extremity swelling, joint pain, joint swelling and muscle cramps Integumentary/Breast Reports: skin pain, skin tenderness, skin swelling and sores [facility] Medical History (Updated 09/18/24 @ 07:34 by Tricia Agarwal) Phlebitis and thrombophlebitis of superficial vessels of left lower extremity ?I80.02 - Phlebitis and thrombophlebitis of superficial vessels of left lower extremity (ICD-10) Phlebitis and thrombophlebitis of superficial vessels of right lower extremity ?I80.01 - Phlebitis and thrombophlebitis of superficial vessels of right lower extremity (ICD-10) Cellulitis ?L03.90 - Cellulitis, unspecified (ICD-10) FH: cholecystectomy ?Z83.79 - Family history of other diseases of the digestive system (ICD-10) Heart failure ?I50.9 - Heart failure, unspecified (ICD-10) Hypertension ?I10 - Essential (primary) hypertension (ICD-10) Diverticula of intestine ?K57.30 - Diverticulosis of large intestine without perforation or abscess without bleeding (ICD-10) Diabetes ?E11.9 - Type 2 diabetes mellitus without complications (ICD-10) CAD (coronary artery disease) ?I25.10 - Atherosclerotic heart disease of [place] coronary artery without angina pectoris (ICD-10) Atrial fibrillation ?I48.91 - Unspecified atrial fibrillation (ICD-10) Chronic GERD ?K21.9 - Gastro-esophageal reflux disease without esophagitis (ICD-10) Back pain ?M54.9 - Dorsalgia, unspecified (ICD-10) Irregular heart beat ?I49.9 - Cardiac arrhythmia, unspecified (ICD-10) Pain due to varicose veins of both lower extremities ?I83.813 - Varicose veins of bilateral lower extremities with pain (ICD-10) Deep vein blood clot of right lower extremity ?I82.401 - Acute embolism and thrombosis of unspecified deep veins of right lower extremity (ICD-10) Deep vein blood clot of left lower extremity ?I82.402 - Acute embolism and thrombosis of unspecified deep veins of left lower extremity (ICD-10) Surgical History (Updated 09/25/24 @ 08:56 by Mirna Richmond RN) Status post laser ablation of incompetent vein ?Z98.890 - Other specified postprocedural states (ICD-10) Status post laser ablation of incompetent vein ?Z98.890 - Other specified postprocedural states (ICD-10) Status post laser ablation of incompetent vein ?Z98.890 - Other specified postprocedural states (ICD-10) History of tonsillectomy ?Z90.89 - Acquired absence of other organs (ICD-10) H/O heart artery stent ?Z95.5 - Presence of coronary angioplasty implant and graft (ICD-10) History of knee replacement procedure of right knee ?Z96.651 - Presence of right artificial knee joint (ICD-10) Gastric bypass status for obesity ?Z98.84 - Bariatric surgery status (ICD-10) Family History (Updated 08/15/24 @ 09:24 by Mirna Richmond, RN) Father Family history of stroke Family history of myocardial infarction Family history of hypertension Father Family history of diabetes mellitus Mother Family history of diabetes mellitus Varicose veins of bilateral lower extremities with pain Brother Family history of cancer Sister Family history of cancer Social History (Updated 08/15/24 @ 09:25 by Mirna Richmond, RN) Within the past year, how many standard drinks containing alcohol did you have on a typical day: 1 or 2 Within the past year, how often did you have six or more drinks on one occasion: never Total score: 0 Score interpretation: A score less than 4 is consistent with normal alcohol consumption. Smoking status: Former smoker Nicotine containing products detail: quit 15 years ago. Smoked 1 PPD for 35 years. Non-prescribed substance use: denies use Meds Home Medications and Allergies Home Medications ?Medication ?Instructions ?Recorded ?Confirmed ?Type amiodarone 100 mg tablet 100 mg PO DAILY 08/15/24 08/15/24 History apixaban 5 mg tablet (Eliquis) 5 mg PO BID 08/15/24 08/15/24 History atorvastatin 10 mg tablet 10 mg PO DAILY 08/15/24 08/15/24 History diosmin complex no.1 630 mg tablet 1 tab PO DAILY 08/15/24 08/15/24 History (Vasculera) fluoxetine 20 mg capsule 20 mg PO DAILY 08/15/24 08/15/24 History furosemide 40 mg tablet (Lasix) 40 mg PO DAILY 08/15/24 08/15/24 History gabapentin 300 mg capsule 900 mg PO BID 08/15/24 08/15/24 History metoprolol succinate 25 mg 25 mg PO DAILY 08/15/24 08/15/24 History tablet,extended release 24 hr omeprazole 40 mg capsule,delayed 40 mg PO DAILY 08/15/24 08/15/24 History release potassium chloride 20 mEq oral 20 meq PO DAILY 08/15/24 08/15/24 History packet (Klor-Con) sacubitril 24 mg-valsartan 26 mg 1 tab PO BID 08/15/24 08/15/24 History tablet (Entresto) tizanidine 4 mg capsule (Zanaflex) 4 mg PO TID PRN muscle spasticity 08/15/24 08/15/24 History zolpidem 10 mg tablet (Ambien) 08/15/24 History Allergies Allergy/AdvReac Type Severity Reaction Status Date / Time doxycycline Allergy Unknown Verified 08/15/24 10:16 Penicillins AdvReac Severe Vomiting Verified 08/15/24 09:26 morphine AdvReac Mild Gastrointestinal Verified 08/15/24 10:16 Upset Exam Narrative Exam Narrative: Alex Alvarado MD personally performed the services described in this documentation, as scribed by Tricia Agarwal RVT, RDMS in my presence and it is both accurate and complete. Tricia Alvarado RVT, RDMS, am scribing for, and in the presence of, Dr. Alex Villegas and in the presence of the patient. Constitutional Documenting provider has reviewed patient's vital signs: yes Common normals: oriented x3 Nutritional appearance: overweight Lymph Lymphatic: no lymphedema noted Cardio Peripheral pulses: posterior tibial pulses present and dorsalis pedis pulses present Extremity General: calf tenderness, edema and other findings Right lower extremity: lower leg Right lower leg: inspection and palpation Left lower extremity: lower leg Left lower leg: inspection and palpation Other: Heeled right proximal anterior lower leg wound. Left heeled mid-medial lower leg wound. Neuro Common normals: oriented x3 Results Imaging Venous US: Radiologist's impression: The ultrasound demonstrates Heat induced thrombus visualized arising at prox calf and extending through distal calf. No junction measurement due to thigh extension SSV. Assessment and Plan Assessment and Plan (1) Phlebitis and thrombophlebitis of superficial vessels of right lower extremity: Plan Patient in today for follow up ultrasound of lower extremity following treatment of EVLT of right leg SSV completed on 09/25/24. Alex Alvarado MD personally performed the services described in this documentation, as scribed by Tricia Agarwal RVT, RDMS in my presence and it is both accurate and complete. Tricia Alvarado RVT, RDMS, am scribing for, and in the presence of, Dr. Alex Villegas and in the presence of the patient.
--- NOTE | 2024-10-02 07:52 | W.VEIN ---
Discharge Plan Discharge Disposition: Home, Self-Care Outpatient Diagnostics: VC Endovenous Ablation 1VeinRT (Routine) Timeframe: 2 Weeks Facility: [facility] - Location: [facility] Center Ordered By: Alex Villegas Follow Up Appointments: 10/11/24 Plan of Treatment: EVLT of right leg AASV Print Language: Czech Discharge Date/Time: 10/02/24 10:39
--- NOTE | 2024-10-02 09:37 | VEIN_ITS ---
Patient Name: INDIO FUENTES MR#: [id number] : 1955 Exam Date: 10/02/2024 Ordering Doctor: DR INDIO MCKNIGHT M.D. RADIOLOGY REPORT PROCEDURE: VC EXT VENOUS RT LMTD COMPARISON: VC EXT VENOUS RT LMTD, 09/05/2024. INDICATIONS: I80.01 - Phlebitis and thrombophlebitis of superficial ve... TECHNIQUE: Lower extremity cárdenas scale and Duplex Doppler evaluation of the deep venous system from the inguinal ligament through the calf veins. FINDINGS: REGION: Right lower extremity. THROMBI: Negative for DVT. Heat induced thrombus visualized arising at prox calf and extending through distal calf. No junction measurement due to thigh extension SSV. COMPRESSIBILITY: Non-compressible segments corresponding to thrombus FLOW: Areas of no flow corresponding to thrombus OTHER: CONCLUSION: 1. Successful post ablation occlusion of right small saphenous vein. Dictated by: Alex Villegas M.D. on 10/02/2024 at 10:51 Approved by: Alex Villegas M.D. on 10/02/2024 at 11:09
--- NOTE | 2024-10-02 09:37 | VEIN_ITS ---
Patient Name: INDIO FUENTES MR#: [id number] : 1955 Exam Date: 10/02/2024 Ordering Doctor: DR INDIO MCKNIGHT M.D. RADIOLOGY REPORT PROCEDURE: [facility] - OFFICE VISIT FOLLOW UP [facility] PROGRESS NOTES: The patient reports improvement in leg symptoms. There has been interval reduction in varicosities. The patient has followed our recommendations to walk 20-30 minutes once or twice per day since the procedure. Physical exam demonstrates decrease in varicosities of the leg. Persistent varicosities are identified along the legs bilaterally. Review of the ultrasound performed the same day demonstrates occlusive thrombus extending throughout the treated vein(s), see separate report, consistent with a successful ablation. No thrombus extending into or beyond the saphenofemoral junction. The patient expressed a desire to proceed with treatment of remaining incompetent varicosities. The patient was informed that treatment was a process and would require several procedures/sessions. VEIN/[facility] EST LMTD IMPRESSION: 1. Successful ablation of the right small saphenous vein(s). 2. Persistent varicose veins and lower extremity edema. PLAN: 1. Endovenous laser ablation of right anterior accessory saphenous vein. Nurse notes, history and physical were reviewed and confirmed, see attached forms. The nurse was present throughout the physical exam and consultation Dictated by: Alex Villegsa M.D. on 10/02/2024 at 11:09 Approved by: Alex Villegas M.D. on 10/02/2024 at 11:11
== END 2024-10-02 10:39 | disposition home or self-care (01) ==
LOC: VC 09:36
PROVIDERS: PCP Radiology Diagnostic Radiology; Visit Provider Radiology Diagnostic Radiology
DX: I80.01 Phlebitis and thrombophlebitis of superficial vessels of right lower extremity (principal)
CPT/HCPCS: 93971; G0463

== ENCOUNTER 2024-10-11 08:39 | Outpatient (OUT) | payer OTHER, SELFPAY ==
--- NOTE | 2024-10-09 13:37 | VEINCLINIC_ITS ---
Vital Signs 10/11/24 08:58 BP 138/70 BP Location Left Brachial BP Position Sitting BP Cuff Size Adult BP Source Manual Cuff Respiration 18 Pulse 57 L Pulse Source Monitor Oxygen Delivery Method Room Air Comment The patient's blood pressure is elevated. Varicose Veins Patient in today for EVLT of right AASV. Delon Alvarado MD personally performed the services described in this documentat ion, as scribed by Mirna Richmond RN in my presence and it is both accurate and complete. Mirna Alvarado RN, am scribing for, and in the presence of, Dr. Delon Kirk and in the presence of the patient. thigh: bilateral, knee: bilateral, calf: bilateral, ankle: bilateral and vasques: bilateral aching, cramping and sharp 10 7 years Worsened in recent months: Yes standing and sitting analgesics, elevating extremities and compression stockings Reports heaviness, limb pain, edema, leg edema and other History of lower extremity trauma: Yes Superficial thrombophlebitis: Yes Family history of varicose veins: yes Has patient had previous lower extremity venous surgery: No Patient has previously received the following treatment(s) for lower extremity varicose veins: Reports none Does patient have a history of : not applicable Does patient intend to have future pregnancies: not applicable Has patient had lower extremity venous scan with relux testing: Yes Support hose used: Yes Problems walking or doing physical activity: Yes How does it affect you: Hurts the worst at night and in the morning Do you walk much: Yes Do you stand much: Yes Review of Systems ROS Narrative Delon Alvarado MD personally performed the services described in this documentation, as scribed by Mirna Richmond RN in my presence and it is both accurate and complete. Minra Alvarado RN, am scribing for, and in the presence of, Dr. Delno Kirk and in the presence of the patient. Status of ROS 10 or more systems reviewed and unremark able except as noted in history and below Cardiovascular Reports: edema and swelling of feet/ankles Musculoskeletal Reports: extremity pain, extremity swelling, joint pain, joint swelling and muscle cramps Integumentary/Breast Reports: skin pain, skin tenderness, skin swelling and sores PFSH PFS Medical History (Updated 09/18/24 @ 07:34 by Tricia Agarwal) Phlebitis and thrombophlebitis of superficial vessels of left lower extremity ?I80.02 - Phlebitis and thrombophlebitis of superficial vessels of left lower extremity (ICD-10) Phlebitis and thrombophlebitis of superficial vessels of right lower extremity ?I80.01 - Phlebitis and thrombophlebitis of superficial vessels of right lower extremity (ICD-10) Cellulitis ?L03.90 - Cellulitis, unspecified (ICD-10) FH: cholecystectomy ?Z83.79 - Family history of other diseases of the digestive system (ICD-10) Heart failure ?I50.9 - Heart failure, unspecified (ICD-10) Hypertension ?I10 - Essential (primary) hypertension (ICD-10) Diverticula of intestine ?K57.30 - Diverticulosis of large intestine without perforation or abscess without bleeding (ICD-10) Diabetes ?E11.9 - Type 2 diabetes mellitus without complications (ICD-10) CAD (coronary artery disease) ?I25.10 - Atherosclerotic heart disease of [place] coronary artery without angina pectoris (ICD-10) Atrial fibrillation ?I48.91 - Unspecified atrial fibrillation (ICD-10) Chronic GERD ?K21.9 - Gastro-esophageal reflux disease without esophagitis (ICD-10) Back pain ?M54.9 - Dorsalgia, unspecified (ICD-10) Irregular heart beat ?I49.9 - Cardiac arrhythmia, unspecified (ICD-10) Pain due to varicose veins of both lower extremities ?I83.813 - Varicose veins of bilateral lower extremities with pain (ICD-10) Deep vein blood clot of right lower extremity ?I82.401 - Acute embolism and thrombosis of unspecified deep veins of right lower extremity (ICD-10) Deep vein blood clot of left lower extremity ?I82.402 - Acute embolism and thrombosis of unspecified deep veins of left lower extremity (ICD-10) Surgical History (Updated 09/25/24 @ 08:56 by Mirna Richmond RN) Status post laser ablation of incompetent vein ?Z98.890 - Other specified postprocedural states (ICD-10) Status post laser ablation of incompetent vein ?Z98.890 - Other specified postprocedural states (ICD-10) Status post laser ablation of incompetent vein ?Z98.890 - Other specified postprocedural states (ICD-10) History of tonsillectomy ?Z90.89 - Acquired absence of other organs (ICD-10) H/O heart artery stent ?Z95.5 - Presence of coronary angioplasty implant and graft (ICD-10) History of knee replacement procedure of right knee ?Z96.651 - Presence of right artificial knee joint (ICD-10) Gastric bypass status for obesity ?Z98.84 - Bariatric surgery status (ICD-10) Family History (Updated 08/15/24 @ 09:24 by Mirna Richmond RN) Father Family history of stroke Family history of myocardial infarction Family history of hypertension Father Family history of diabetes mellitus Mother Family history of diabetes mellitus Varicose veins of bilateral lower extremities with pain Brother Family history of cancer Sister Family history of cancer Social History (Updated 08/15/24 @ 09:25 by Mirna Richmond RN) Within the past year, how many standard drinks containing alcohol did you have on a typical day: 1 or 2 Within the past year, how often did you have six or more drinks on one occasion: never Total score: 0 Score interpretation: A score less than 4 is consistent with normal alcohol consumption. Smoking status: Former smoker Nicotine containing products detail: quit 15 years ago. Smoked 1 PPD for 35 years. Non-prescribed substance use: denies use Meds Home Medications and Allergies Home Medications ?Medication ?Instructions ?Recorded ?Confirmed ?Type amiodarone 100 mg tablet 100 mg PO DAILY 08/15/24 08/15/24 History apixaban 5 mg tablet (Eliquis) 5 mg PO BID 08/15/24 08/15/24 History atorvastatin 10 mg tablet 10 mg PO DAILY 08/15/24 08/15/24 History diosmin complex no.1 630 mg tablet 1 tab PO DAILY 08/15/24 08/15/24 History (Vasculera) fluoxetine 20 mg capsule 20 mg PO DAILY 08/15/24 08/15/24 History furosemide 40 mg tablet (Lasix) 40 mg PO DAILY 08/15/24 08/15/24 History gabapentin 300 mg capsule 900 mg PO BID 08/15/24 08/15/24 History metoprolol succinate 25 mg 25 mg PO DAILY 08/15/24 08/15/24 History tablet,extended release 24 hr omeprazole 40 mg capsule,delayed 40 mg PO DAILY 08/15/24 08/15/24 History release potassium chloride 20 mEq oral 20 meq PO DAILY 08/15/24 08/15/24 History packet (Klor-Con) sacubitril 24 mg-valsartan 26 mg 1 tab PO BID 08/15/24 08/15/24 History tablet (Entresto) tizanidine 4 mg capsule (Zanaflex) 4 mg PO TID PRN muscle spasticity 08/15/24 08/15/24 History zolpidem 10 mg tablet (Ambien) 08/15/24 History Allergies Allergy/AdvReac Type Severity Reaction Status Date / Time doxycycline Allergy Unknown Verified 08/15/24 10:16 Penicillins AdvReac Severe Vomiting Verified 08/15/24 09:26 morphine AdvReac Mild Gastrointestinal Verified 08/15/24 10:16 Upset Exam Narrative Exam Narrative: Delon Alvarado MD personally performed the services described in this documentation, as scribed by Mirna Richmond RN in my presence and it is both accurate and complete. Mirna Alvarado RN, am scribing for, and in the presence of, Dr. Delon Kirk and in the presence of the patient. Constitutional Documenting provider has reviewed patient's vital signs: yes Common normals: oriented x3 Nutritional appearance: overweight Lymph Lymphatic: no lymphedema noted Cardio Peripheral pulses: posterior tibial pulses present and dorsalis pedis pulses present Extremity General: calf tenderness, edema and other findings Right lower extremity: lower leg Right lower leg: inspection and palpation Left lower extremity: lower leg Left lower leg: inspection and palpation Other: Heeled right proximal anterior lower leg wound. Left heeled mid-medial lower leg wound. Neuro Common normals: oriented x3 Assessment and Plan Assessment and Plan (1) Pain due to varicose veins of both lower extremities: Plan The patient tolerated the procedure well without complication.? The patient verbalizes understanding and states they will comply.? Patient was given post- procedure instructions. Patient was discharged in good condition.? Scheduled to undergo follow-up evaluation on 10/19/24. Delon Alvarado MD personally performed the services described in this documentation, as scribed by Mirna Richmond RN in my presence and it is both accurate and complete. Mirna Alvarado RN, am scribing for, and in the presence of, Dr. Delon Kirk and in the presence of the patient. Procedures Procedure Instructions Procedures Plan of care: Risks and benefits of the procedure were discussed at length and informed written consent was obtained.? Time-out completed for verification of correct patient, procedure and site.? Staff present during time-out: Mirna Richmond RN,? Delon Kirk MD, [facility]. Time Out Time____902___ Patient prepped and procedure performed in usual sterile fashion. Risk of injury related to use of Diode laser and/or laser devices? __AG___ ? Serial number of laser used :? [id number] Control panel self test performed, electrical cords in good condition, floor is dry, basin of water available, fire extinguisher in close proximity_AG__ Polycarbonate goggles available and Laser warning signs outside of doors___AG___ Eye protection provided to patient and staff in room_AG___ Use of laser retardant drapes and dull blackened instruments as directed__AG___ Use of nonflammable prep solutions and use of saline soaked sponges to protect tissues as indicated _AG___ Length ___16.5 cm Laser operated by Dr. Kirk Physician verbal confirmation laser locked in place__AG__ Laser start time (date and time) __10/11/24@0913 Laser stop time(date and time) _10/11/24@0915 Willams _8.0___ Average laser use ____981___Joules Average laser use___123 seconds Pulse continuous ___AG_? Pulse intermittent ___ Amount of Tumescent used ___100___ Evaluated patient for signs and symptoms of electrical injury __AG___ ? Skin clear at insertion site __AG___ Patient tolerated procedure well.? Right leg Coban dressing applied to access site.? Applied Right thigh high leg compression stocking. Will return on 10/19/24 for Right leg limited venous ultrasound and exam. IDelon MD personally performed the services described in this documentation, as scribed by Mirna Richmond RN in my presence and it is both accurate and complete. I, Mirna Richmond RN, am scribing for, and in the presence of, Dr. Delon Kirk and in the presence of the patient.
--- NOTE | 2024-10-09 13:40 | P.DS_ITS ---
Discharge Plan Discharge Disposition: Home, Self-Care Outpatient Diagnostics: [facility] Facility EST LMTD (Routine) Timeframe: 2 Weeks Facility: [facility] - [facility] Ordered By: Delon Kirk [facility] EXT Venous RT LMTD (Routine) Timeframe: 2 Weeks Facility: [facility] - Location: [facility] Center Ordered By: Delon Kirk Follow Up Appointments: 10/19/24 Plan of Treatment: u/s follow up following evlt of right AASV 12/12/23 Patient Instructions: Endovenous Ablation (DC) Print Language: Citizen Of [place] Discharge Date/Time: 10/11/24 09:29
--- NOTE | 2024-10-10 16:10 | V.VEINS.HP ---
Varicose Veins Patient in this day for EVLT of right AASV Delon Alvarado MD personally performed the services described in this documentation, as scribed by Arsh Craft RN in my presence and it is both accurate and complete. IArsh RN, am scribing for, and in the presence of, Dr. Delon Kirk and in the presence of the patient. thigh: bilateral, knee: bilateral, calf: bilateral, ankle: bilateral and vasques: bilateral aching, cramping and sharp 10 7 years Worsened in recent months: Yes standing and sitting analgesics, elevating extremities and compression stockings Reports heaviness, limb pain, edema, leg edema and other History of lower extremity trauma: Yes Superficial thrombophlebitis: Yes Family history of varicose veins: yes Has patient had previous lower extremity venous surgery: No Patient has previously received the following treatment(s) for lower extremity varicose veins: Reports none Does patient have a history of : not applicable Does patient intend to have future pregnancies: not applicable Has patient had lower extremity venous scan with relux testing: Yes Support hose used: Yes Problems walking or doing physical activity: Yes How does it affect you: Hurts the worst at night and in the morning Do you walk much: Yes Do you stand much: Yes Review of Systems ROS Narrative Delon Alvarado MD personally performed the services described in this documentation, as scribed by Arsh Craft RN in my presence and it is both accurate and complete. Arsh Alvarado RN, am scribing for, and in the presence of, Dr. Delon Kirk and in the presence of the patient. Status of ROS 10 or more systems reviewed and unremarkable except as noted in history and below Cardiovascular Reports: edema and swelling of feet/ankles Musculoskeletal Reports: extremity pain, extremity swelling, joint pain, joint swelling and muscle cramps Integumentary/Breast Reports: skin pain, skin tenderness, skin swelling and sores [facility] Medical History (Updated 09/18/24 @ 07:34 by Tricia Agarwal) Phlebitis and thrombophlebitis of superficial vessels of left lower extremity ?I80.02 - Phlebitis and thrombophlebitis of superficial vessels of left lower extremity (ICD-10) Phlebitis and thrombophlebitis of superficial vessels of right lower extremity ?I80.01 - Phlebitis and thrombophlebitis of superficial vessels of right lower extremity (ICD-10) Cellulitis ?L03.90 - Cellulitis, unspecified (ICD-10) FH: cholecystectomy ?Z83.79 - Family history of other diseases of the digestive system (ICD-10) Heart failure ?I50.9 - Heart failure, unspecified (ICD-10) Hypertension ?I10 - Essential (primary) hypertension (ICD-10) Diverticula of intestine ?K57.30 - Diverticulosis of large intestine without perforation or abscess without bleeding (ICD-10) Diabetes ?E11.9 - Type 2 diabetes mellitus without complications (ICD-10) CAD (coronary artery disease) ?I25.10 - Atherosclerotic heart disease of [place] coronary artery without angina pectoris (ICD-10) Atrial fibrillation ?I48.91 - Unspecified atrial fibrillation (ICD-10) Chronic GERD ?K21.9 - Gastro-esophageal reflux disease without esophagitis (ICD-10) Back pain ?M54.9 - Dorsalgia, unspecified (ICD-10) Irregular heart beat ?I49.9 - Cardiac arrhythmia, unspecified (ICD-10) Pain due to varicose veins of both lower extremities ?I83.813 - Varicose veins of bilateral lower extremities with pain (ICD-10) Deep vein blood clot of right lower extremity ?I82.401 - Acute embolism and thrombosis of unspecified deep veins of right lower extremity (ICD-10) Deep vein blood clot of left lower extremity ?I82.402 - Acute embolism and thrombosis of unspecified deep veins of left lower extremity (ICD-10) Surgical History (Updated 09/25/24 @ 08:56 by Mirna Richmond RN) Status post laser ablation of incompetent vein ?Z98.890 - Other specified postprocedural states (ICD-10) Status post laser ablation of incompetent vein ?Z98.890 - Other specified postprocedural states (ICD-10) Status post laser ablation of incompetent vein ?Z98.890 - Other specified postprocedural states (ICD-10) History of tonsillectomy ?Z90.89 - Acquired absence of other organs (ICD-10) H/O heart artery stent ?Z95.5 - Presence of coronary angioplasty implant and graft (ICD-10) History of knee replacement procedure of right knee ?Z96.651 - Presence of right artificial knee joint (ICD-10) Gastric bypass status for obesity ?Z98.84 - Bariatric surgery status (ICD-10) Family History (Updated 08/15/24 @ 09:24 by Mirna Richmond RN) Father Family history of stroke Family history of myocardial infarction Family history of hypertension Father Family history of diabetes mellitus Mother Family history of diabetes mellitus Varicose veins of bilateral lower extremities with pain Brother Family history of cancer Sister Family history of cancer Social History (Updated 08/15/24 @ 09:25 by Mirna Richmond RN) Within the past year, how many standard drinks containing alcohol did you have on a typical day: 1 or 2 Within the past year, how often did you have six or more drinks on one occasion: never Total score: 0 Score interpretation: A score less than 4 is consistent with normal alcohol consumption. Smoking status: Former smoker Nicotine containing products detail: quit 15 years ago. Smoked 1 PPD for 35 years. Non-prescribed substance use: denies use Meds Home Medications and Allergies Home Medications ?Medication ?Instructions ?Recorded ?Confirmed ?Type amiodarone 100 mg tablet 100 mg PO DAILY 08/15/24 08/15/24 History apixaban 5 mg tablet (Eliquis) 5 mg PO BID 08/15/24 08/15/24 History atorvastatin 10 mg tablet 10 mg PO DAILY 08/15/24 08/15/24 History diosmin complex no.1 630 mg tablet 1 tab PO DAILY 08/15/24 08/15/24 History (Vasculera) fluoxetine 20 mg capsule 20 mg PO DAILY 08/15/24 08/15/24 History furosemide 40 mg tablet (Lasix) 40 mg PO DAILY 08/15/24 08/15/24 History gabapentin 300 mg capsule 900 mg PO BID 08/15/24 08/15/24 History metoprolol succinate 25 mg 25 mg PO DAILY 08/15/24 08/15/24 History tablet,extended release 24 hr omeprazole 40 mg capsule,delayed 40 mg PO DAILY 08/15/24 08/15/24 History release potassium chloride 20 mEq oral 20 meq PO DAILY 08/15/24 08/15/24 History packet (Klor-Con) sacubitril 24 mg-valsartan 26 mg 1 tab PO BID 08/15/24 08/15/24 History tablet (Entresto) tizanidine 4 mg capsule (Zanaflex) 4 mg PO TID PRN muscle spasticity 08/15/24 08/15/24 History zolpidem 10 mg tablet (Ambien) 08/15/24 History Allergies Allergy/AdvReac Type Severity Reaction Status Date / Time doxycycline Allergy Unknown Verified 08/15/24 10:16 Penicillins AdvReac Severe Vomiting Verified 08/15/24 09:26 morphine AdvReac Mild Gastrointestinal Verified 08/15/24 10:16 Upset Exam Narrative Exam Narrative: Delon Alvarado MD personally performed the services described in this documentation, as scribed by Arsh Craft RN in my presence and it is both accurate and complete. Arsh Alvarado RN, am scribing for, and in the presence of, Dr. Delon Kirk and in the presence of the patient. Constitutional Documenting provider has reviewed patient's vital signs: yes Common normals: oriented x3 Nutritional appearance: overweight Lymph Lymphatic: no lymphedema noted Cardio Peripheral pulses: posterior tibial pulses present and dorsalis pedis pulses present Extremity General: calf tenderness, edema and other findings Right lower extremity: lower leg Right lower leg: inspection and palpation Left lower extremity: lower leg Left lower leg: inspection and palpation Other: Heeled right proximal anterior lower leg wound. Left heeled mid-medial lower leg wound. Neuro Common normals: oriented x3 Assessment and Plan Assessment and Plan (1) Pain due to varicose veins of both lower extremities: Plan f/u evaluation with physician along with right leg limited u/s Delon Alvarado MD personally performed the services described in this documentation, as scribed by Arsh Craft RN in my presence and it is both accurate and complete. Arsh Alvarado RN, am scribing for, and in the presence of, Dr. Delon Kirk and in the presence of the patient. Procedures Procedure Instructions Procedures Plan of care: Risks and benefits of the procedure were discussed at length and informed written consent was obtained.? Time-out completed for verification of correct patient, procedure and site.? Staff present during time-out: Arsh Craft RN,? Delon Kirk MD, Tricia Agarwal RDMS,RVT. Time Out Time Patient prepped and procedure performed in usual sterile fashion. Risk of injury related to use of Diode laser and/or laser devices__CR___ ? Serial number of laser used :? [id number] Control panel self test performed, electrical cords in good condition, floor is dry, basin of water available, fire extinguisher in close proximity_CR__ Polycarbonate goggles available and Laser warning signs outside of doors___CR__ Eye protection provided to patient and staff in room_CR___ Use of laser retardant drapes and dull blackened instruments as directed__CR___ Use of nonflammable prep solutions and use of saline soaked sponges to protect tissues as indicated _CR___ Length cm Laser operated by __Dr. Kirk Physician verbal confirmation laser locked in place__CR__ Laser start time (date and time) _10/11/2024@ Laser stop time(date and time) __10/11/2024@ Willams _8.0___ Average laser use Joules Average laser use seconds Pulse continuous ___CR_? Pulse intermittent ___ Amount of Tumescent used Evaluated patient for signs and symptoms of electrical injury __CR___ ? Skin clear at insertion site __CR___ Patient tolerated procedure well.? Right leg Coban dressing applied to access site.? Applied right thigh high leg compression stocking. Will return on // for right leg limited venous ultrasound and exam. IDelon MD personally performed the services described in this documentation, as scribed by Arsh Craft RN in my presence and it is both accurate and complete. IArsh RN, am scribing for, and in the presence of, Dr. Delon Kirk and in the presence of the patient.
--- NOTE | 2024-10-10 16:13 | W.VEIN ---
Discharge Plan Discharge Disposition: Home, Self-Care Outpatient Diagnostics: [facility] Facility EST LMTD (Routine) Timeframe: 2 Weeks Facility: [facility] - Location: [facility] Center Ordered By: Delon Kirk VC EXT Venous RT LMTD (Routine) Timeframe: 2 Weeks Facility: [facility] - Location: Vein Center Ordered By: Delon Kirk Plan of Treatment: u/s follow up following evlt of right AASV 12/12/23 Patient Instructions: Endovenous Ablation (DC) Print Language: [place]
--- NOTE | 2024-10-11 08:41 | VEIN_ITS ---
[address] [address] Patient Name: INDIO FUENTES MRN: [id number] date: 1955 Sex: M Assigned Patient Location: Current Patient Location: Accession/Order Number: [id number] Exam Date: 10/11/2024 08:41 Report Date: 10/11/2024 10:09 At the request of: THOMAS COLBERT Procedure: VC Endovenous Ablation 1VeinRT EXAMINATION: VC Endovenous Ablation 1Vein, right anterior accessory saphenous vein HISTORY: I83.813 - Varicose veins of bilateral lower extremities w... COMPARISON: No relevant comparison available. TECHNIQUE: The risks and benefits of the procedure had been previously discussed, and were rediscussed at length. Informed written consent was obtained. Ellie Gustafson and Mirna Richmond assisted. Time out procedure was performed. The right lower extremity was prepared and draped in the usual sterile fashion to allow knee flexion in the sterile field. Duplex ultrasound probe was draped in a sterile cover, sterile transmission gel was used. Venous mapping was performed with the areas of dilation and large tributaries marked. The total length was 16.5 cm from the entry mid thigh to 3 cm below the saphenofemoral junction. The diameter of the anterior accessory saphenous vein ranged from 7-10 mm. A 30 gauge needle and 1% buffered lidocaine was used to anesthetize the entry site. A 4 mm incision was made with a scalpel and the saphenous vein was entered percutaneously under direct ultrasound guidance with a micropuncture set, a single stick was successful in gaining access. A micro-guide wire was inserted and the needle removed. A micro-set including a dilator was inserted over the microwire and the needle and dilator were removed. A 0.018 guide wire was inserted through the micro-set and threaded through the saphenous vein to the saphenofemoral junction. The dilator was removed and an introducer sheath was inserted over the wire until the end of the sheath entered the saphenofemoral junction. The dilator and wire were removed and the 600 micron fiber was introduced and placed and positioned so that it extended beyond the sheath and was 3 cm peripheral to the saphenofemoral femoral junction. Final position of the fiber was determined by ultrasound guidance and duplex imaging. Tumescent anesthetic was delivered by ultrasound guidance. 100 cc of fluid was delivered along the entire course of the saphenous vein. The solution consisted of 1000 cc of normal saline with 40 mL of 1% lidocaine and 20 mL of sodium bicarbonate. A final positioning check was made. The energy source was turned on by means of the foot pedal and the fiber and sheath were withdrawn. The total number of Joules delivered was 981. The laser was active for 123seconds under continuous pulse, average laser use of 8 J. Laser start time 13 a.m. 10/11/2024 . Laser stop time 9:15 AM 10/11/2024 . A duplex ultrasound revealed compressibility and flow at the saphenofemoral junction immediately after the procedure. Hemostasis at the access site was achieved. The skin incision of the saphenous vein was closed with a 4 x 4. A compression stocking was applied. Postop instructions were given. A follow up appointment was recommended and scheduled. The patient tolerated the procedure well and was discharged in good condition . VEIN/VC Endovenous Ablation 1VeinRT IMPRESSION: Technically successful endovenous ablation of the right anterior accessory saphenous vein. Electronically authenticated by: INDIO MCKNIGHT Date: 10/11/2024 10:09
[2024-10-11 08:58] VITALS: BP 138/70; PULSE 57
[2024-10-11] MEDS: LIDOCAINE HCL 1% 100 MG/10 ML MDV INJ (09:33)
[2024-10-11] MEDS: 0.9 % SODIUM CHLORIDE 500 ML, LIDOCAINE HCL 20 ML, SODIUM BICARBONATE 10 MEQ INJ (09:33)
== END 2024-10-11 09:29 | disposition home or self-care (01) ==
LOC: VC 08:39
PROVIDERS: PCP Radiology Diagnostic Radiology; Visit Provider Radiology Diagnostic Radiology
DX: I83.813 Varicose veins of bilateral lower extremities with pain (principal)
CPT/HCPCS: 36478

== ENCOUNTER 2024-10-18 10:18 | Outpatient (OUT) | payer OTHER, SELFPAY ==
[2024-10-18 10:59] LABS: Basophils Absolute Auto 0.1 10^3/uL (0.0-0.1); Basophils Percent Auto 0.6 % (0.2-2.0); Eosinophils Absolute Auto 0.1 10^3/uL (0.0-0.7); Eosinophils Percent Auto 1.7 % (0.9-7.0); Hematocrit 40.5 % (42.0-54.0); Hemoglobin 12.9 g/dL (14.0-18.0); Immature Granulocytes Abs Auto 0.02 10^3/uL (0.00-0.03); Immature Granulocytes Pct Auto 0.2 % (0.0-0.5); Lymphocytes Absolute Auto 1.8 10^3/uL (1.2-3.8); Lymphocytes Percent Auto 21.4 % (20.5-60.0); Mean Corpuscular HGB Conc 31.9 g/dL (29.9-35.2); Mean Corpuscular Hemoglobin 29.3 pg (25.9-34.0); Mean Corpuscular Volume 91.8 fL (80.0-94.0); Mean Platelet Volume 9.8 fL (9.5-13.5); Monocytes Absolute Auto 0.5 10^3/uL (0.3-0.8); Monocytes Percent Auto 6.5 % (1.7-12.0); Neutrophils Absolute Auto 5.7 10^3/uL (1.4-6.5); Neutrophils Percent Auto 69.6 % (43.0-75.0); Platelet Count 228 10^3/uL (150-450); Red Blood Count 4.41 10^6/uL (4.70-6.10); Red Cell Distribution Width 14.3 % (11.0-15.0); White Blood Count 8.3 10^3/uL (4.0-11.0)
[2024-10-18 11:15] LABS: Anion Gap 11.7; BUN Creatinine Ratio 17.5; Calcium 8.5 mg/dL (8.5-10.1); Carbon Dioxide 30.7 mmol/L (21.0-32.0); Chloride 106 mmol/L (98-107); Estimated GFR (African America >60 (>=60 mL/min/1.73m^2); Estimated GFR (Non-African Ame >60 (>=60 mL/min/1.73m^2); Glucose 89 mg/dL (74-106); Potassium 4.4 mmol/L (3.5-5.1); Sodium 144 mmol/L (136-145)
== END 2024-10-18 10:19 | disposition home or self-care (01) ==
LOC: LAB 10:20
PROVIDERS: PCP Internal Medicine; Visit Provider Internal Medicine Cardiovascular Disease
DX: I48.0 Paroxysmal atrial fibrillation (principal)
CPT/HCPCS: 36415; 80048; 85025

== ENCOUNTER 2024-10-19 09:09 | Outpatient (OUT) | payer OTHER, SELFPAY ==
--- NOTE | 2024-10-19 07:47 | V.VEINS.HP ---
Varicose Veins Patient in today for follow up ultrasound post EVLT of right AASV. lAex Alvarado MD personally performed the services described in this documentation, as scribed by Tricia Agarwal RVT, RDMS in my presence and it is both accurate and complete. Tricia Alvarado RVT, RDMS, am scribing for, and in the presence of, Dr. Alex Villegas and in the presence of the patient. thigh: bilateral, knee: bilateral, calf: bilateral, ankle: bilateral and vasques: bilateral aching, cramping and sharp 10 7 years Worsened in recent months: Yes standing and sitting analgesics, elevating extremities and compression stockings Reports heaviness, limb pain, edema, leg edema and other History of lower extremity trauma: Yes Superficial thrombophlebitis: Yes Family history of varicose veins: yes Has patient had previous lower extremity venous surgery: No Patient has previously received the following treatment(s) for lower extremity varicose veins: Reports none Does patient have a history of : not applicable Does patient intend to have future pregnancies: not applicable Has patient had lower extremity venous scan with relux testing: Yes Support hose used: Yes Problems walking or doing physical activity: Yes How does it affect you: Hurts the worst at night and in the morning Do you walk much: Yes Do you stand much: Yes Review of Systems ROS Narrative Alex Alvarado MD personally performed the services described in this documentation, as scribed by Tricia Agarwal RVT, RDMS in my presence and it is both accurate and complete. Tricia Alvarado RVT, RDMS, am scribing for, and in the presence of, Dr. Alex Villegas and in the presence of the patient. [facility] Medical History (Updated 09/18/24 @ 07:34 by Tricia Agarwal) Phlebitis and thrombophlebitis of superficial vessels of left lower extremity ?I80.02 - Phlebitis and thrombophlebitis of superficial vessels of left lower extremity (ICD-10) Phlebitis and thrombophlebitis of superficial vessels of right lower extremity ?I80.01 - Phlebitis and thrombophlebitis of superficial vessels of right lower extremity (ICD-10) Cellulitis ?L03.90 - Cellulitis, unspecified (ICD-10) FH: cholecystectomy ?Z83.79 - Family history of other diseases of the digestive system (ICD-10) Heart failure ?I50.9 - Heart failure, unspecified (ICD-10) Hypertension ?I10 - Essential (primary) hypertension (ICD-10) Diverticula of intestine ?K57.30 - Diverticulosis of large intestine without perforation or abscess without bleeding (ICD-10) Diabetes ?E11.9 - Type 2 diabetes mellitus without complications (ICD-10) CAD (coronary artery disease) ?I25.10 - Atherosclerotic heart disease of [place] coronary artery without angina pectoris (ICD-10) Atrial fibrillation ?I48.91 - Unspecified atrial fibrillation (ICD-10) Chronic GERD ?K21.9 - Gastro-esophageal reflux disease without esophagitis (ICD-10) Back pain ?M54.9 - Dorsalgia, unspecified (ICD-10) Irregular heart beat ?I49.9 - Cardiac arrhythmia, unspecified (ICD-10) Pain due to varicose veins of both lower extremities ?I83.813 - Varicose veins of bilateral lower extremities with pain (ICD-10) Deep vein blood clot of right lower extremity ?I82.401 - Acute embolism and thrombosis of unspecified deep veins of right lower extremity (ICD-10) Deep vein blood clot of left lower extremity ?I82.402 - Acute embolism and thrombosis of unspecified deep veins of left lower extremity (ICD-10) Surgical History (Updated 09/25/24 @ 08:56 by Mirna Richmond RN) Status post laser ablation of incompetent vein ?Z98.890 - Other specified postprocedural states (ICD-10) Status post laser ablation of incompetent vein ?Z98.890 - Other specified postprocedural states (ICD-10) Status post laser ablation of incompetent vein ?Z98.890 - Other specified postprocedural states (ICD-10) History of tonsillectomy ?Z90.89 - Acquired absence of other organs (ICD-10) H/O heart artery stent ?Z95.5 - Presence of coronary angioplasty implant and graft (ICD-10) History of knee replacement procedure of right knee ?Z96.651 - Presence of right artificial knee joint (ICD-10) Gastric bypass status for obesity ?Z98.84 - Bariatric surgery status (ICD-10) Family History (Updated 08/15/24 @ 09:24 by Mirna Richmond RN) Father Family history of stroke Family history of myocardial infarction Family history of hypertension Father Family history of diabetes mellitus Mother Family history of diabetes mellitus Varicose veins of bilateral lower extremities with pain Brother Family history of cancer Sister Family history of cancer Social History (Updated 08/15/24 @ 09:25 by Mirna Richmond RN) Within the past year, how many standard drinks containing alcohol did you have on a typical day: 1 or 2 Within the past year, how often did you have six or more drinks on one occasion: never Total score: 0 Score interpretation: A score less than 4 is consistent with normal alcohol consumption. Smoking status: Former smoker Nicotine containing products detail: quit 15 years ago. Smoked 1 PPD for 35 years. Non-prescribed substance use: denies use Meds Home Medications and Allergies Home Medications ?Medication ?Instructions ?Recorded ?Confirmed ?Type amiodarone 100 mg tablet 100 mg PO DAILY 08/15/24 08/15/24 History apixaban 5 mg tablet (Eliquis) 5 mg PO BID 08/15/24 08/15/24 History atorvastatin 10 mg tablet 10 mg PO DAILY 08/15/24 08/15/24 History diosmin complex no.1 630 mg tablet 1 tab PO DAILY 08/15/24 08/15/24 History (Vasculera) fluoxetine 20 mg capsule 20 mg PO DAILY 08/15/24 08/15/24 History furosemide 40 mg tablet (Lasix) 40 mg PO DAILY 08/15/24 08/15/24 History gabapentin 300 mg capsule 900 mg PO BID 08/15/24 08/15/24 History metoprolol succinate 25 mg 25 mg PO DAILY 08/15/24 08/15/24 History tablet,extended release 24 hr omeprazole 40 mg capsule,delayed 40 mg PO DAILY 08/15/24 08/15/24 History release potassium chloride 20 mEq oral 20 meq PO DAILY 08/15/24 08/15/24 History packet (Klor-Con) sacubitril 24 mg-valsartan 26 mg 1 tab PO BID 08/15/24 08/15/24 History tablet (Entresto) tizanidine 4 mg capsule (Zanaflex) 4 mg PO TID PRN muscle spasticity 08/15/24 08/15/24 History zolpidem 10 mg tablet (Ambien) 08/15/24 History Allergies Allergy/AdvReac Type Severity Reaction Status Date / Time doxycycline Allergy Unknown Verified 08/15/24 10:16 Penicillins AdvReac Severe Vomiting Verified 08/15/24 09:26 morphine AdvReac Mild Gastrointestinal Verified 08/15/24 10:16 Upset Exam Narrative Exam Narrative: Alex Alvarado MD personally performed the services described in this documentation, as scribed by Tricia Agarwal RVT, RDMS in my presence and it is both accurate and complete. Tricia Alvarado RVT, RDMS, am scribing for, and in the presence of, Dr. Alex Villegas and in the presence of the patient. Constitutional Documenting provider has reviewed patient's vital signs: yes Common normals: oriented x3 Nutritional appearance: overweight Lymph Lymphatic: no lymphedema noted Cardio Peripheral pulses: posterior tibial pulses present and dorsalis pedis pulses present Extremity General: calf tenderness, edema and other findings Right lower extremity: lower leg Right lower leg: inspection and palpation Left lower extremity: lower leg Left lower leg: inspection and palpation Other: Heeled right proximal anterior lower leg wound. Left heeled mid-medial lower leg wound. Neuro Common normals: oriented x3 Results Imaging Venous US: Radiologist's impression: The ultrasound demonstrates Heat induced thrombus visualized 2.1cm from the SFJ. The heat induced thrombus extends from groin to mid thigh. Assessment and Plan Assessment and Plan (1) Phlebitis and thrombophlebitis of superficial vessels of right lower extremity: Plan Patient in today for follow up ultrasound of lower extremity following treatment of EVLT of right leg AASV completed on 10/11/24. Alex Alvarado MD personally performed the services described in this documentation, as scribed by Tricia Agarwal RVT, RDMS in my presence and it is both accurate and complete. Tricia Alvarado RVT, RDMS, am scribing for, and in the presence of, Dr. Alex Villegas and in the presence of the patient.
--- NOTE | 2024-10-19 07:48 | W.VEIN ---
Discharge Plan Discharge Disposition: Home, Self-Care Outpatient Diagnostics: VC Endovenous Perf Ablation LT (Routine) Timeframe: 2 Weeks Facility: [facility] - Location: Vein Center Ordered By: Alex Villegas Print Language: Jamaican Discharge Date/Time: 10/19/24 11:32
--- NOTE | 2024-10-19 09:10 | VEIN_ITS ---
Patient Name: INDIO FUENTES MR#: [id number] : 1955 Exam Date: 10/19/2024 Ordering Doctor: DR INDIO MCKNIGHT M.D. RADIOLOGY REPORT PROCEDURE: [facility] - OFFICE VISIT FOLLOW [facility] PROGRESS NOTES: The patient reports improvement in leg symptoms. There has been interval reduction in varicosities. The patient has followed our recommendations to walk 20-30 minutes once or twice per day since the procedure. Physical exam demonstrates decrease in varicosities of the leg. Persistent varicosities are identified along the legs bilaterally. Review of the ultrasound performed the same day demonstrates occlusive thrombus extending throughout the treated vein(s), see separate report, consistent with a successful ablation. No thrombus extending into or beyond the saphenofemoral junction. The patient expressed a desire to proceed with treatment of remaining incompetent varicosities. The patient was informed that treatment was a process and would require several procedures/sessions. VEIN/[facility] EST TD IMPRESSION: 1. Successful ablation of the right anterior accessory saphenous vein(s). 2. Persistent varicose veins and lower extremity symptoms. PLAN: 1. 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 Nurse notes, history and physical were reviewed and confirmed, see attached forms. The nurse was present throughout the physical exam and consultation Dictated by: Alex Villegas M.D. on 10/19/2024 at 11:40 Approved by: Alex Villegas M.D. on 10/19/2024 at 11:41
--- NOTE | 2024-10-19 09:10 | VEIN_ITS ---
Patient Name: INDIO FUENTES MR#: [id number] : 1955 Exam Date: 10/19/2024 Ordering Doctor: DR INDIO MCKNIGHT M.D. RADIOLOGY REPORT PROCEDURE: VC EXT VENOUS RT LMTD COMPARISON: VC EXT VENOUS RT LMTD, 10/02/2024. INDICATIONS: I80.01 - Phlebitis and thrombophlebitis of superficial ve... TECHNIQUE: Lower extremity cárdenas scale and Duplex Doppler evaluation of the deep venous system from the inguinal ligament through the calf veins. FINDINGS: REGION: Right lower extremity. THROMBI: Negative for DVT. Heat induced thrombus visualized 2.1cm from the SFJ. The heat induced thrombus extends from groin to mid thigh. COMPRESSIBILITY: Non-compressible segments corresponding to thrombus FLOW: Areas of no flow corresponding to thrombus OTHER: CONCLUSION: 1. Successful post ablation occlusion of right anterior accessory saphenous vein. Dictated by: Alex Villegas M.D. on 10/19/2024 at 11:40 Approved by: Alex Villegas M.D. on 10/19/2024 at 11:40
== END 2024-10-19 11:32 | disposition home or self-care (01) ==
LOC: VC 09:09
PROVIDERS: PCP Internal Medicine; Visit Provider Radiology Diagnostic Radiology
DX: I80.01 Phlebitis and thrombophlebitis of superficial vessels of right lower extremity (principal)
CPT/HCPCS: 93971; G0463

== ENCOUNTER 2024-11-05 08:33 | Outpatient (OUT) | payer OTHER, SELFPAY ==
--- NOTE | 2024-11-02 10:41 | V.VEINS.HP ---
Vital Signs 11/05/24 08:58 BP 140/71 BP Location Left Brachial BP Position Sitting BP Cuff Size Adult BP Source Automatic Cuff Respiration 16 Pulse 54 L Pulse Source Monitor Pulse Oximetry (%) 99 Oxygen Delivery Method Room Air Comment The patient's blood pressure is elevated. Varicose Veins Patient in today for EVLT of left leg perforating veins Delon Alvarado MD personally performed the services described in this documentation, as scribed by Arsh Craft RN in my presence and it is both accurate and complete. IArsh RN, am scribing for, and in the presence of, Dr. Delon Kirk and in the presence of the patient. thigh: bilateral, knee: bilateral, calf: bilateral, ankle: bilateral and vasques: bilateral aching, cramping and sharp 10 7 years Worsened in recent months: Yes standing and sitting analgesics, elevating extremities and compression stockings Reports heaviness, limb pain, edema, leg edema and other History of lower extremity trauma: Yes Superficial thrombophlebitis: Yes Family history of varicose veins: yes Has patient had previous lower extremity venous surgery: No Patient has previously received the following treatment(s) for lower extremity varicose veins: Reports none Does patient have a history of : not applicable Does patient intend to have future pregnancies: not applicable Has patient had lower extremity venous scan with relux testing: Yes Support hose used: Yes Problems walking or doing physical activity: Yes How does it affect you: Hurts the worst at night and in the morning Do you walk much: Yes Do you stand much: Yes Review of Systems ROS Narrative Delon Alvarado MD personally performed the services described in this documentation, as scribed by Arsh Craft RN in my presence and it is both accurate and complete. Arsh Alvarado RN, am scribing for, and in the presence of, Dr. Delon Kirk and in the presence of the patient. [facility] Medical History (Updated 09/18/24 @ 07:34 by Tricia Agarwal) Phlebitis and thrombophlebitis of superficial vessels of left lower extremity ?I80.02 - Phlebitis and thrombophlebitis of superficial vessels of left lower extremity (ICD-10) Phlebitis and thrombophlebitis of superficial vessels of right lower extremity ?I80.01 - Phlebitis and thrombophlebitis of superficial vessels of right lower extremity (ICD-10) Cellulitis ?L03.90 - Cellulitis, unspecified (ICD-10) FH: cholecystectomy ?Z83.79 - Family history of other diseases of the digestive system (ICD-10) Heart failure ?I50.9 - Heart failure, unspecified (ICD-10) Hypertension ?I10 - Essential (primary) hypertension (ICD-10) Diverticula of intestine ?K57.30 - Diverticulosis of large intestine without perforation or abscess without bleeding (ICD-10) Diabetes ?E11.9 - Type 2 diabetes mellitus without complications (ICD-10) CAD (coronary artery disease) ?I25.10 - Atherosclerotic heart disease of [place] coronary artery without angina pectoris (ICD-10) Atrial fibrillation ?I48.91 - Unspecified atrial fibrillation (ICD-10) Chronic GERD ?K21.9 - Gastro-esophageal reflux disease without esophagitis (ICD-10) Back pain ?M54.9 - Dorsalgia, unspecified (ICD-10) Irregular heart beat ?I49.9 - Cardiac arrhythmia, unspecified (ICD-10) Pain due to varicose veins of both lower extremities ?I83.813 - Varicose veins of bilateral lower extremities with pain (ICD-10) Deep vein blood clot of right lower extremity ?I82.401 - Acute embolism and thrombosis of unspecified deep veins of right lower extremity (ICD-10) Deep vein blood clot of left lower extremity ?I82.402 - Acute embolism and thrombosis of unspecified deep veins of left lower extremity (ICD-10) Surgical History (Updated 11/05/24 @ 09:12 by Arsh Craft) Status post laser ablation of incompetent vein ?Z98.890 - Other specified postprocedural states (ICD-10) Status post laser ablation of incompetent vein ?Z98.890 - Other specified postprocedural states (ICD-10) Status post laser ablation of incompetent vein ?Z98.890 - Other specified postprocedural states (ICD-10) Status post laser ablation of incompetent vein ?Z98.890 - Other specified postprocedural states (ICD-10) History of tonsillectomy ?Z90.89 - Acquired absence of other organs (ICD-10) H/O heart artery stent ?Z95.5 - Presence of coronary angioplasty implant and graft (ICD-10) History of knee replacement procedure of right knee ?Z96.651 - Presence of right artificial knee joint (ICD-10) Gastric bypass status for obesity ?Z98.84 - Bariatric surgery status (ICD-10) Family History (Updated 08/15/24 @ 09:24 by Mirna Richmond RN) Father Family history of stroke Family history of myocardial infarction Family history of hypertension Father Family history of diabetes mellitus Mother Family history of diabetes mellitus Varicose veins of bilateral lower extremities with pain Brother Family history of cancer Sister Family history of cancer Social History (Updated 08/15/24 @ 09:25 by Mirna Richmond RN) Within the past year, how many standard drinks containing alcohol did you have on a typical day: 1 or 2 Within the past year, how often did you have six or more drinks on one occasion: never Total score: 0 Score interpretation: A score less than 4 is consistent with normal alcohol consumption. Smoking status: Former smoker Nicotine containing products detail: quit 15 years ago. Smoked 1 PPD for 35 years. Non-prescribed substance use: denies use Meds Home Medications and Allergies Home Medications ?Medication ?Instructions ?Recorded ?Confirmed ?Type amiodarone 100 mg tablet 100 mg PO DAILY 08/15/24 08/15/24 History apixaban 5 mg tablet (Eliquis) 5 mg PO BID 08/15/24 08/15/24 History atorvastatin 10 mg tablet 10 mg PO DAILY 08/15/24 08/15/24 History diosmin complex no.1 630 mg tablet 1 tab PO DAILY 08/15/24 08/15/24 History (Vasculera) fluoxetine 20 mg capsule 20 mg PO DAILY 08/15/24 08/15/24 History furosemide 40 mg tablet (Lasix) 40 mg PO DAILY 08/15/24 08/15/24 History gabapentin 300 mg capsule 900 mg PO BID 08/15/24 08/15/24 History metoprolol succinate 25 mg 25 mg PO DAILY 08/15/24 08/15/24 History tablet,extended release 24 hr omeprazole 40 mg capsule,delayed 40 mg PO DAILY 08/15/24 08/15/24 History release potassium chloride 20 mEq oral 20 meq PO DAILY 08/15/24 08/15/24 History packet (Klor-Con) sacubitril 24 mg-valsartan 26 mg 1 tab PO BID 08/15/24 08/15/24 History tablet (Entresto) tizanidine 4 mg capsule (Zanaflex) 4 mg PO TID PRN muscle spasticity 08/15/24 08/15/24 History zolpidem 10 mg tablet (Ambien) 08/15/24 History Allergies Allergy/AdvReac Type Severity Reaction Status Date / Time doxycycline Allergy Unknown Verified 08/15/24 10:16 Penicillins AdvReac Severe Vomiting Verified 08/15/24 09:26 morphine AdvReac Mild Gastrointestinal Verified 08/15/24 10:16 Upset Exam Narrative Exam Narrative: Delon Alvarado MD personally performed the services described in this documentation, as scribed by Arsh Craft RN in my presence and it is both accurate and complete. Arsh Alvarado RN, am scribing for, and in the presence of, Dr. Delon Kirk and in the presence of the patient. Constitutional Documenting provider has reviewed patient's vital signs: yes Common normals: oriented x3 Nutritional appearance: overweight Lymph Lymphatic: no lymphedema noted Cardio Peripheral pulses: posterior tibial pulses present and dorsalis pedis pulses present Extremity General: calf tenderness, edema and other findings Right lower extremity: lower leg Right lower leg: inspection and palpation Left lower extremity: lower leg Left lower leg: inspection and palpation Other: Heeled right proximal anterior lower leg wound. Left heeled mid-medial lower leg wound. Neuro Common normals: oriented x3 Assessment and Plan Assessment and Plan (1) Pain due to varicose veins of both lower extremities: Plan f/u evaluation with physician along with left leg limited u/s Delon Alvarado MD personally performed the services described in this documentation, as scribed by Arsh Craft RN in my presence and it is both accurate and complete. Arsh Alvarado RN, am scribing for, and in the presence of, Dr. Delon Kirk and in the presence of the patient. Procedures Procedure Instructions Procedures Plan of care: Risks and benefits of the procedure were discussed at length and informed written consent was obtained.? Time-out completed for verification of correct patient, procedure and site.? Staff present during time-out: Arsh Craft RN,? Delon Kirk MD, Negin Cline [facility] Time Out Time_09 Patient prepped and procedure performed in usual sterile fashion. Risk of injury related to use of Diode laser and/or laser devices?__CR___ ? Serial number of laser used :? [id number] Control panel self test performed, electrical cords in good condition, floor is dry, basin of water available, fire extinguisher in close proximity_CR__ Polycarbonate goggles available and Laser warning signs outside of doors___CR__ Eye protection provided to patient and staff in room_CR___ Use of laser retardant drapes and dull blackened instruments as directed__CR___ Use of nonflammable prep solutions and use of saline soaked sponges to protect tissues as indicated _CR___ Laser operated by _Dr. Kirk Physician verbal confirmation laser locked in place__CR__ Laser start time (date and time) _11/05/2024@__0924 Laser stop time(date and time) _11/05/2024@__0940 Laser Site #1: Distal Medial Lower Leg Joules: 166 Seconds: 21 Laser Site #2: Mid medial lower leg Joules: 294 Seconds: 37 Laser Site #3: Mid lateral lower leg Joules: 170 Seconds: 21 Laser Site: #4 Mid posterior lower leg Joules: 225 Seconds: 28 [place] _8.0___ Pulse continuous ___CR_? Pulse intermittent ___ Evaluated patient for signs and symptoms of electrical injury __CR___ ? Skin clear at insertion site __CR___ Patient tolerated procedure well.? Left leg Coban dressing applied to access site.? Applied Left thigh high leg compression stocking. Will return on 11/19/2024 for Left leg limited venous ultrasound and exam. IDelon MD personally performed the services described in this documentation, as scribed by Arsh Craft RN in my presence and it is both accurate and complete. I, Arsh Craft RN, am scribing for, and in the presence of, Dr. Delon Kirk and in the presence of the patient.
--- NOTE | 2024-11-02 10:45 | P.DS_ITS ---
Discharge Plan Discharge Disposition: Home, Self-Care Outpatient Diagnostics: VC Facility EST LMTD (Routine) Timeframe: 2 Weeks Facility: [facility] - Location: Vein Center Ordered By: Delon Kirk VC EXT Venous LT Limited (Routine) Timeframe: 2 Weeks Facility: [facility] - Location: Vein Center Ordered By: Delon Kirk Follow Up Appointments: 11/19/2024 Plan of Treatment: f/u evaluation with physician along with left leg limited u/s Patient Instructions: Endovenous Ablation (DC) Print Language: Occitan Discharge Date/Time: 11/05/24 10:16
--- NOTE | 2024-11-05 08:36 | VEIN_ITS ---
[address] [address] Patient Name: INDIO FUENTES MRN: [id number] date: 1955 Sex: M Assigned Patient Location: Current Patient Location: Accession/Order Number: [id number] Exam Date: 11/05/2024 08:40 Report Date: 11/05/2024 10:01 At the request of: THOMAS COLBERT Procedure: VC Endovenous Perf Ablation LT EXAMINATION: VC Endovenous Perf Ablation LT COMPARISON: INDICATIONS: I83.813 - Varicose veins of bilateral lower extremities w... OPERATIVE REPORT: Diagnosis: Superficial venous reflux, incompetent perforating veins Procedure: Endovenous laser ablation of the left radiation control worker(s) Procedure: The patient was positioned supine on the table and the leg was prepped and draped to allow for visualization during venous access. A sterile cover was draped over a 16 mhz ultrasound probe. Venous mapping was performed prior to the procedure noting location and size of vessel(s). Emergency Dept Tech vein 1: Distal medial left lower leg. The diameter of the vein ranged from 6 mm's below the muscular fascia to 6 mm's at the entry point. Using a 30 gauge needle the entry site was anesthetized with 2 cc of 1% buffered lidocaine. Access was gained percutaneously, with a 21-gauge needle, into the radiation control worker vein under ultrasound guidance. The needle was advanced into the desired position and the pre-measured 400-micron fiber was then inserted into the needle and locked in place. The position of the fiber was imaged with ultrasound guidance. The fiber tip was visualized to be 20 mm from the deep vessel. An anesthetic solution of 6 cc 1% buffered lidocaine was delivered along the course of the vein under ultrasound guidance using a syringe. A final positioning check of the laser fiber tip was performed. The laser was activated by means of a foot-pedal and the fiber and needle were withdrawn together in accordance to the desired joules per treatment area/spot weld. 4 areas/spot welds were performed, and the total number of joules delivered was 106. The total time of energy delivery was 21 seconds. A duplex ultrasound revealed compressibility and flow of the deep system immediately after the procedure. Hemostasis of the access site was achieved. Emergency Dept Tech vein 2: Left mid medial lower leg. The diameter of the vein ranged from 8 mm's below the muscular fascia to 8 mm's at the entry point. Using a 30 gauge needle the entry site was anesthetized with 2 cc of 1% buffered lidocaine. Access was gained percutaneously, with a 21-gauge needle, into the radiation control worker vein under ultrasound guidance. The needle was advanced into the desired position and the pre-measured 400-micron fiber was then inserted into the needle and locked in place. The position of the fiber was imaged with ultrasound guidance. The fiber tip was visualized to be 30 mm from the deep vessel. An anesthetic solution of 8 cc 1% buffered lidocaine was delivered along the course of the vein under ultrasound guidance using a syringe. A final positioning check of the laser fiber tip was performed. The laser was activated by means of a foot-pedal and the fiber and needle were withdrawn together in accordance to the desired joules per treatment area/spot weld. 6 areas/spot welds were performed, and the total number of joules delivered was 294. The total time of energy delivery was 37 seconds. A duplex ultrasound revealed compressibility and flow of the deep system immediately after the procedure. Hemostasis of the access site was achieved. Emergency Dept Tech vein 3: Mid lateral left lower leg. The diameter of the vein ranged from 3 mm's below the muscular fascia to 3 mm's at the entry point. Using a 30 gauge needle the entry site was anesthetized with 2 cc of 1% buffered lidocaine. Access was gained percutaneously, with a 21-gauge needle, into the radiation control worker vein under ultrasound guidance. The needle was advanced into the desired position and the pre-measured 400-micron fiber was then inserted into the needle and locked in place. The position of the fiber was imaged with ultrasound guidance. The fiber tip was visualized to be 30 mm from the deep vessel. An anesthetic solution of 6 cc 1% buffered lidocaine was delivered along the course of the vein under ultrasound guidance using a syringe. A final positioning check of the laser fiber tip was performed. The laser was activated by means of a foot-pedal and the fiber and needle were withdrawn together in accordance to the desired joules per treatment area/spot weld. 3 areas/spot welds were performed, and the total number of joules delivered was 170. The total time of energy delivery was 21 seconds. A duplex ultrasound revealed compressibility and flow of the deep system immediately after the procedure. Hemostasis of the access site was achieved. Emergency Dept Tech vein 4: Mid posterior left lower leg, calf. The diameter of the vein ranged from 5 mm's below the muscular fascia to 5 mm's at the entry point. Using a 30 gauge needle the entry site was anesthetized with 2 cc of 1% buffered lidocaine. Access was gained percutaneously, with a 21-gauge needle, into the radiation control worker vein under ultrasound guidance. The needle was advanced into the desired position and the pre-measured 400-micron fiber was then inserted into the needle and locked in place. The position of the fiber was imaged with ultrasound guidance. The fiber tip was visualized to be 35 mm from the deep vessel. An anesthetic solution of 6 cc 1% buffered lidocaine was delivered along the course of the vein under ultrasound guidance using a syringe. A final positioning check of the laser fiber tip was performed. The laser was activated by means of a foot-pedal and the fiber and needle were withdrawn together in accordance to the desired joules per treatment area/spot weld. 4 areas/spot welds were performed, and the total number of joules delivered was 225. The total time of energy delivery was 28 seconds. A duplex ultrasound revealed compressibility and flow of the deep system immediately after the procedure. Hemostasis of the access site was achieved and dressed. A 20-30 mm compression stocking over coban was placed on the treated leg. Post-Op instructions were given, and a follow-up appointment was made. CONCLUSION: 1. Technically successful endovenous laser ablation of 4 incompetent radiation control worker veins Electronically authenticated by: INDIO MCKNIGHT Date: 11/05/2024 10:01
[2024-11-05] MEDS: LIDOCAINE HCL 20 ML, SODIUM BICARBONATE 2 MEQ INJ (08:44)
[2024-11-05 08:58] VITALS: BP 140/71; PULSE 54; O2SAT 99
== END 2024-11-05 10:16 | disposition home or self-care (01) ==
LOC: VC 08:33
PROVIDERS: PCP Radiology Diagnostic Radiology; Visit Provider Radiology Diagnostic Radiology
DX: I83.813 Varicose veins of bilateral lower extremities with pain (principal)
CPT/HCPCS: 36478

== ENCOUNTER 2024-11-19 08:47 | Outpatient (OUT) | payer OTHER, SELFPAY ==
--- NOTE | 2024-11-19 08:08 | VEINCLINIC_ITS ---
Varicose Veins Patient in today for follow up ultrasound of left lower extremity following EVLT of left leg perforators completed on 11/05/24. Alex Alvarado MD personally performed the services described in this documentation, as scribed by Negin Cline RDMS in my presence and it is both accurate and complete. Negin Alvarado RDMS, am scribing for, and in the presence of, Dr. Alex Villegas and in the presence of the patient. thigh: bilateral, knee: bilateral, calf: bilateral, ankle: bilateral and vasques: bilateral aching, cramping and sharp 10 7 years Worsened in recent months: Yes standing and sitting analgesics, elevating extremities and compression stockings Reports heaviness, limb pain, edema, leg edema and other History of lower extremity trauma: Yes Superficial thrombophlebitis: Yes Family history of varicose veins: yes Has patient had previous lower extremity venous surgery: No Patient has previously received the following treatment(s) for lower extremity varicose veins: Reports none Does patient have a history of : not applicable Does patient intend to have future pregnancies: not applicable Has patient had lower extremity venous scan with relux testing: Yes Support hose used: Yes Problems walking or doing physical activity: Yes How does it affect you: Hurts the worst at night and in the morning Do you walk much: Yes Do you stand much: Yes Review of Systems ROS Narrative Alex Alvarado MD personally performed the services described in this documentation, as scribed by Negin Cline RDMS in my presence and it is both accurate and complete. Negin Alvarado RDMS, am scribing for, and in the presence of, Dr. Alex Villegas and in the presence of the patient. Status of ROS 10 or more systems reviewed and unremark able except as noted in history and below Cardiovascular Reports: edema and swelling of feet/ankles Musculoskeletal Reports: extremity pain, extremity swelling, joint pain, joint swelling and muscle cramps Integumentary/Breast Reports: skin pain, skin tenderness, skin swelling and sores [facility] Medical History (Updated 09/18/24 @ 07:34 by Tricia Agarwal) Phlebitis and thrombophlebitis of superficial vessels of left lower extremity ?I80.02 - Phlebitis and thrombophlebitis of superficial vessels of left lower extremity (ICD-10) Phlebitis and thrombophlebitis of superficial vessels of right lower extremity ?I80.01 - Phlebitis and thrombophlebitis of superficial vessels of right lower extremity (ICD-10) Cellulitis ?L03.90 - Cellulitis, unspecified (ICD-10) FH: cholecystectomy ?Z83.79 - Family history of other diseases of the digestive system (ICD-10) Heart failure ?I50.9 - Heart failure, unspecified (ICD-10) Hypertension ?I10 - Essential (primary) hypertension (ICD-10) Diverticula of intestine ?K57.30 - Diverticulosis of large intestine without perforation or abscess without bleeding (ICD-10) Diabetes ?E11.9 - Type 2 diabetes mellitus without complications (ICD-10) CAD (coronary artery disease) ?I25.10 - Atherosclerotic heart disease of [place] coronary artery without angina pectoris (ICD-10) Atrial fibrillation ?I48.91 - Unspecified atrial fibrillation (ICD-10) Chronic GERD ?K21.9 - Gastro-esophageal reflux disease without esophagitis (ICD-10) Back pain ?M54.9 - Dorsalgia, unspecified (ICD-10) Irregular heart beat ?I49.9 - Cardiac arrhythmia, unspecified (ICD-10) Pain due to varicose veins of both lower extremities ?I83.813 - Varicose veins of bilateral lower extremities with pain (ICD-10) Deep vein blood clot of right lower extremity ?I82.401 - Acute embolism and thrombosis of unspecified deep veins of right lower extremity (ICD-10) Deep vein blood clot of left lower extremity ?I82.402 - Acute embolism and thrombosis of unspecified deep veins of left lower extremity (ICD-10) Surgical History (Updated 11/05/24 @ 09:12 by Arsh Craft) Status post laser ablation of incompetent vein ?Z98.890 - Other specified postprocedural states (ICD-10) Status post laser ablation of incompetent vein ?Z98.890 - Other specified postprocedural states (ICD-10) Status post laser ablation of incompetent vein ?Z98.890 - Other specified postprocedural states (ICD-10) Status post laser ablation of incompetent vein ?Z98.890 - Other specified postprocedural states (ICD-10) History of tonsillectomy ?Z90.89 - Acquired absence of other organs (ICD-10) H/O heart artery stent ?Z95.5 - Presence of coronary angioplasty implant and graft (ICD-10) History of knee replacement procedure of right knee ?Z96.651 - Presence of right artificial knee joint (ICD-10) Gastric bypass status for obesity ?Z98.84 - Bariatric surgery status (ICD-10) Family History (Updated 08/15/24 @ 09:24 by Mirna Richmond RN) Father Family history of stroke Family history of myocardial infarction Family history of hypertension Father Family history of diabetes mellitus Mother Family history of diabetes mellitus Varicose veins of bilateral lower extremities with pain Brother Family history of cancer Sister Family history of cancer Social History (Updated 08/15/24 @ 09:25 by Mirna Richmond RN) Within the past year, how many standard drinks containing alcohol did you have on a typical day: 1 or 2 Within the past year, how often did you have six or more drinks on one occasion: never Total score: 0 Score interpretation: A score less than 4 is consistent with normal alcohol consumption. Smoking status: Former smoker Nicotine containing products detail: quit 15 years ago. Smoked 1 PPD for 35 years. Non-prescribed substance use: denies use Meds Home Medications and Allergies Home Medications ?Medication ?Instructions ?Recorded ?Confirmed ?Type amiodarone 100 mg tablet 100 mg PO DAILY 08/15/24 08/15/24 History apixaban 5 mg tablet (Eliquis) 5 mg PO BID 08/15/24 08/15/24 History atorvastatin 10 mg tablet 10 mg PO DAILY 08/15/24 08/15/24 History diosmin complex no.1 630 mg tablet 1 tab PO DAILY 08/15/24 08/15/24 History (Vasculera) fluoxetine 20 mg capsule 20 mg PO DAILY 08/15/24 08/15/24 History furosemide 40 mg tablet (Lasix) 40 mg PO DAILY 08/15/24 08/15/24 History gabapentin 300 mg capsule 900 mg PO BID 08/15/24 08/15/24 History metoprolol succinate 25 mg 25 mg PO DAILY 08/15/24 08/15/24 History tablet,extended release 24 hr omeprazole 40 mg capsule,delayed 40 mg PO DAILY 08/15/24 08/15/24 History release potassium chloride 20 mEq oral 20 meq PO DAILY 08/15/24 08/15/24 History packet (Klor-Con) sacubitril 24 mg-valsartan 26 mg 1 tab PO BID 08/15/24 08/15/24 History tablet (Entresto) tizanidine 4 mg capsule (Zanaflex) 4 mg PO TID PRN muscle spasticity 08/15/24 08/15/24 History zolpidem 10 mg tablet (Ambien) 08/15/24 History Allergies Allergy/AdvReac Type Severity Reaction Status Date / Time doxycycline Allergy Unknown Verified 08/15/24 10:16 Penicillins AdvReac Severe Vomiting Verified 08/15/24 09:26 morphine AdvReac Mild Gastrointestinal Verified 08/15/24 10:16 Upset Exam Narrative Exam Narrative: Improvement of left leg swelling noted. Alex Alvarado MD personally performed the services described in this documentation, as scribed by Negin Cline RDMS in my presence and it is both accurate and complete. Negin Alvarado RDMS, am scribing for, and in the presence of, Dr. Patrice Villegas and in the presence of the patient. Constitutional Documenting provider has reviewed patient's vital signs: yes Common normals: oriented x3 Nutritional appearance: overweight Lymph Lymphatic: no lymphedema noted Cardio Peripheral pulses: posterior tibial pulses present and dorsalis pedis pulses present Extremity General: calf tenderness, edema and other findings Right lower extremity: lower leg Right lower leg: inspection and palpation Left lower extremity: lower leg Left lower leg: inspection and palpation Other: Heeled right proximal anterior lower leg wound. Left heeled mid-medial lower leg wound. Neuro Common normals: oriented x3 Results Imaging Venous US: Radiologist's impression: Heat induced thrombus in multiple bridge manager veins in left leg. Alex Alvarado MD personally performed the services described in this documentation, as scribed by Negin Cline RDMS in my presence and it is both accurate and complete. Negin Alvarado RDMS, am scribing for, and in the presence of, Dr. Alex Villegas and in the presence of the patient. Assessment and Plan Assessment and Plan (1) Phlebitis and thrombophlebitis of superficial vessels of left lower extremity: Plan Plan is for patient to return for EVLT of right leg perforators on 11/22/24. IAlex MD personally performed the services described in this docume ntation, as scribed by Negin Cline RDMS in my presence and it is both accurate and complete. I, Negin Cline RDMS, am scribing for, and in the presence of, Dr. Alex Villegas and in the presence of the patient.
--- NOTE | 2024-11-19 08:57 | VEIN_ITS ---
Patient Name: INDIO FUENTES MR#: [id number] : 1955 Exam Date: 11/19/2024 Ordering Doctor: DR INDIO MCKNIGHT M.D. RADIOLOGY REPORT PROCEDURE: VC EXT VENOUS LT LIMITED COMPARISON: VC EXT VENOUS LT LIMITED, 09/18/2024. INDICATIONS: I80.02 - Phlebitis and thrombophlebitis of superficial veins left leg TECHNIQUE: Lower extremity cárdenas scale and Duplex Doppler evaluation of the deep venous system from the inguinal ligament through the calf veins. FINDINGS: REGION: Left lower extremity. THROMBI: Negative for DVT. Heat induced thrombus in three perforators in lower leg. COMPRESSIBILITY: FLOW: Areas of no flow corresponding to thrombus OTHER: CONCLUSION: 1. Successful post ablation occlusion of lower left leg porcelain buildup assistant veins. Dictated by: Alex Villegas M.D. on 11/19/2024 at 13:01 Approved by: Alex Villegas M.D. on 11/19/2024 at 13:07
--- NOTE | 2024-11-19 08:57 | VEIN_ITS ---
Patient Name: INDIO FUENTES MR#: [id number] : 1955 Exam Date: 11/19/2024 Ordering Doctor: DR INDIO MCKNIGHT M.D. RADIOLOGY REPORT PROCEDURE: [facility] - OFFICE VISIT FOLLOW UP COMPARISON: [facility], 10/19/2024. PROGRESS NOTES: The patient reports improvement in leg symptoms. There has been interval reduction in varicosities. The patient has followed our recommendations to walk 20-30 minutes once or twice per day since the procedure. Physical exam demonstrates decrease in varicosities of the leg. Persistent varicosities are identified along the legs bilaterally. Review of the ultrasound performed the same day demonstrates occlusive thrombus extending throughout the treated vein(s), see separate report, consistent with a successful ablation. No thrombus extending into or beyond the saphenofemoral junction. The patient expressed a desire to proceed with treatment of remaining incompetent varicosities. The patient was informed that treatment was a process and would require several procedures/sessions. [facility]: 1. Successful ablation of the lower left leg echo vascular tech vein(s). 2. Persistent varicose veins and lower extremity symptoms. PLAN: 1. Endovenous laser ablation of right lower leg echo vascular tech veins. Nurse notes, history and physical were reviewed and confirmed, see attached forms. The nurse was present throughout the physical exam and consultation Dictated by: Alex Villegas M.D. on 11/19/2024 at 13:07 Approved by: Alex Villegas M.D. on 11/19/2024 at 13:11
--- NOTE | 2024-11-19 10:02 | P.DS_ITS ---
Discharge Plan Discharge Disposition: Home, Self-Care Outpatient Diagnostics: VC Endovenous Perf Ablation RT (Routine) Timeframe: 2 Weeks Facility: [facility] - Location: [facility] Center Ordered By: Alex Villegas Follow Up Appointments: 11/22/24 Plan of Treatment: EVLT of right leg perforators Tumescent Anesthesia: None Buffered Local Anesthesia: 20 mL of 1% Lidocaine Buffered Print Language: Divehi Discharge Date/Time: 11/19/24 10:03
== END 2024-11-19 10:03 | disposition home or self-care (01) ==
PROVIDERS: PCP Radiology Diagnostic Radiology; Visit Provider Radiology Diagnostic Radiology
DX: I80.02 Phlebitis and thrombophlebitis of superficial vessels of left lower extremity (principal)
CPT/HCPCS: 93971; G0463

== ENCOUNTER 2024-11-22 09:15 | Outpatient (OUT) | payer OTHER, SELFPAY ==
--- NOTE | 2024-11-22 09:16 | VEIN_ITS ---
[address] [address] Patient Name: INDIO FUENTES MRN: [id number] date: 1955 Sex: M Assigned Patient Location: Current Patient Location: Accession/Order Number: [id number] Exam Date: 11/22/2024 09:16 Report Date: 11/22/2024 11:57 At the request of: THOMAS COLBERT Procedure: VC Endovenous Perf Ablation RT EXAMINATION: VC Endovenous Perf Ablation RT COMPARISON: INDICATIONS: I83.813 - Varicose veins of bilateral lower extremities w... OPERATIVE REPORT: Diagnosis: Superficial venous reflux, incompetent perforating veins Procedure: Endovenous laser ablation of the right logger(s) Procedure: The patient was positioned supine on the table and the leg was prepped and draped to allow for visualization during venous access. A sterile cover was draped over a 16 mhz ultrasound probe. Venous mapping was performed prior to the procedure noting location and size of vessel(s). Cfa vein 1: Mid medial lower right leg. The diameter of the vein ranged from 8 mm's below the muscular fascia to 8 mm's at the entry point. Using a 30 gauge needle the entry site was anesthetized with 1 cc of 1% buffered lidocaine. Access was gained percutaneously, with a 21-gauge needle, into the logger vein under ultrasound guidance. The needle was advanced into the desired position and the pre-measured 400-micron fiber was then inserted into the needle and locked in place. The position of the fiber was imaged with ultrasound guidance. The fiber tip was visualized to be 10 mm from the deep vessel. An anesthetic solution of 6 cc 1% buffered lidocaine was delivered along the course of the vein under ultrasound guidance using a syringe. A final positioning check of the laser fiber tip was performed. The laser was activated by means of a foot-pedal and the fiber and needle were withdrawn together in accordance to the desired joules per treatment area/spot weld. 3 areas/spot welds were performed, and the total number of joules delivered was 179. The total time of energy delivery was 22 seconds. A duplex ultrasound revealed compressibility and flow of the deep system immediately after the procedure. Hemostasis of the access site was achieved and dressed. A 20-30 mm compression stocking over coban was placed on the treated leg. Post-Op instructions were given, and a follow-up appointment was made. Cfa vein 2: Distal medial lower right leg. The diameter of the vein ranged from 4 mm's below the muscular fascia to 4 mm's at the entry point. Using a 30 gauge needle the entry site was anesthetized with 1 cc of 1% buffered lidocaine. Access was gained percutaneously, with a 21-gauge needle, into the logger vein under ultrasound guidance. The needle was advanced into the desired position and the pre-measured 400-micron fiber was then inserted into the needle and locked in place. The position of the fiber was imaged with ultrasound guidance. The fiber tip was visualized to be 10 mm from the deep vessel. An anesthetic solution of 5 cc 1% buffered lidocaine was delivered along the course of the vein under ultrasound guidance using a syringe. A final positioning check of the laser fiber tip was performed. The laser was activated by means of a foot-pedal and the fiber and needle were withdrawn together in accordance to the desired joules per treatment area/spot weld. 2 areas/spot welds were performed, and the total number of joules delivered was 129. The total time of energy delivery was 16 seconds. A duplex ultrasound revealed compressibility and flow of the deep system immediately after the procedure. Hemostasis of the access site was achieved and dressed. A 20-30 mm compression stocking over coban was placed on the treated leg. Post-Op instructions were given, and a follow-up appointment was made. CONCLUSION: 1. Technically successful endovenous laser ablation of 2 logger veins Electronically authenticated by: THOMAS COLBERT Date: 11/22/2024 11:57
[2024-11-22] MEDS: LIDOCAINE HCL 20 ML, SODIUM BICARBONATE 2 MEQ INJ (10:24)
[2024-11-22 13:15] VITALS: BP 135/75
--- NOTE | 2024-11-22 13:15 | VEINCLINIC_ITS ---
Vital Signs 11/22/24 13:15 BP 135/75 BP Location Left Brachial BP Position Sitting BP Cuff Size Large Adult Comment The patient's blood pressure is elevated. Varicose Veins Patient in today for EVLT of right leg perforators. Alex Alvarado MD personally performed the services described in this documentation, as scribed by Negin Cline RDMS in my presence and it is both accurate and complete. Negin Alvarado RDMS, am scribing for, and in the presence of, Dr. Alex Villegas and in the presence of the patient. thigh: bilateral, knee: bilateral, calf: bilateral, ankle: bilateral and vasques: bilateral aching, cramping and sharp 10 7 years Worsened in recent months: Yes standing and sitting analgesics, elevating extremities and compression stockings Reports heaviness, limb pain, edema, leg edema and other History of lower extremity trauma: Yes Superficial thrombophlebitis: Yes Family history of varicose veins: yes Has patient had previous lower extremity venous surgery: No Patient has previously received the following treatment(s) for lower extremity varicose veins: Reports none Does patient have a history of : not applicable Does patient intend to have future pregnancies: not applicable Has patient had lower extremity venous scan with relux testing: Yes Support hose used: Yes Problems walking or doing physical activity: Yes How does it affect you: Hurts the worst at night and in the morning Do you walk much: Yes Do you stand much: Yes Review of Systems ROS Narrative Alex Alvarado MD personally performed the services described in this documentation, as scribed by Negin Cline RDMS in my presence and it is both accurate and complete. Negin Alvarado RDMS, am scribing for, and in the presence of, Dr. Alex Villegas and in the presence of the patient. Status of ROS 10 or more systems reviewed and unremark able except as noted in history and below Cardiovascular Reports: edema and swelling of feet/ankles Musculoskeletal Reports: extremity pain, extremity swelling, joint pain, joint swelling and muscle cramps Integumentary/Breast Reports: skin pain, skin tenderness, skin swelling and sores [facility] Medical History (Updated 09/18/24 @ 07:34 by Tricia Agarwal) Phlebitis and thrombophlebitis of superficial vessels of left lower extremity ?I80.02 - Phlebitis and thrombophlebitis of superficial vessels of left lower extremity (ICD-10) Phlebitis and thrombophlebitis of superficial vessels of right lower extremity ?I80.01 - Phlebitis and thrombophlebitis of superficial vessels of right lower extremity (ICD-10) Cellulitis ?L03.90 - Cellulitis, unspecified (ICD-10) FH: cholecystectomy ?Z83.79 - Family history of other diseases of the digestive system (ICD-10) Heart failure ?I50.9 - Heart failure, unspecified (ICD-10) Hypertension ?I10 - Essential (primary) hypertension (ICD-10) Diverticula of intestine ?K57.30 - Diverticulosis of large intestine without perforation or abscess without bleeding (ICD-10) Diabetes ?E11.9 - Type 2 diabetes mellitus without complications (ICD-10) CAD (coronary artery disease) ?I25.10 - Atherosclerotic heart disease of [place] coronary artery without angina pectoris (ICD-10) Atrial fibrillation ?I48.91 - Unspecified atrial fibrillation (ICD-10) Chronic GERD ?K21.9 - Gastro-esophageal reflux disease without esophagitis (ICD-10) Back pain ?M54.9 - Dorsalgia, unspecified (ICD-10) Irregular heart beat ?I49.9 - Cardiac arrhythmia, unspecified (ICD-10) Pain due to varicose veins of both lower extremities ?I83.813 - Varicose veins of bilateral lower extremities with pain (ICD-10) Deep vein blood clot of right lower extremity ?I82.401 - Acute embolism and thrombosis of unspecified deep veins of right lower extremity (ICD-10) Deep vein blood clot of left lower extremity ?I82.402 - Acute embolism and thrombosis of unspecified deep veins of left lower extremity (ICD-10) Surgical History (Updated 11/22/24 @ 13:19 by Negin Cline) Status post laser ablation of incompetent vein ?Z98.890 - Other specified postprocedural states (ICD-10) Status post laser ablation of incompetent vein ?Z98.890 - Other specified postprocedural states (ICD-10) Status post laser ablation of incompetent vein ?Z98.890 - Other specified postprocedural states (ICD-10) Status post laser ablation of incompetent vein ?Z98.890 - Other specified postprocedural states (ICD-10) Status post laser ablation of incompetent vein ?Z98.890 - Other specified postprocedural states (ICD-10) History of tonsillectomy ?Z90.89 - Acquired absence of other organs (ICD-10) H/O heart artery stent ?Z95.5 - Presence of coronary angioplasty implant and graft (ICD-10) History of knee replacement procedure of right knee ?Z96.651 - Presence of right artificial knee joint (ICD-10) Gastric bypass status for obesity ?Z98.84 - Bariatric surgery status (ICD-10) Family History (Updated 08/15/24 @ 09:24 by Mirna Richmond RN) Father Family history of stroke Family history of myocardial infarction Family history of hypertension Father Family history of diabetes mellitus Mother Family history of diabetes mellitus Varicose veins of bilateral lower extremities with pain Brother Family history of cancer Sister Family history of cancer Social History (Updated 08/15/24 @ 09:25 by Mirna Richmond RN) Within the past year, how many standard drinks containing alcohol did you have on a typical day: 1 or 2 Within the past year, how often did you have six or more drinks on one occasion: never Total score: 0 Score interpretation: A score less than 4 is consistent with normal alcohol consumption. Smoking status: Former smoker Nicotine containing products detail: quit 15 years ago. Smoked 1 PPD for 35 years. Non-prescribed substance use: denies use Meds Home Medications and Allergies Home Medications ?Medication ?Instructions ?Recorded ?Confirmed ?Type amiodarone 100 mg tablet 100 mg PO DAILY 08/15/24 08/15/24 History apixaban 5 mg tablet (Eliquis) 5 mg PO BID 08/15/24 08/15/24 History atorvastatin 10 mg tablet 10 mg PO DAILY 08/15/24 08/15/24 History diosmin complex no.1 630 mg tablet 1 tab PO DAILY 08/15/24 08/15/24 History (Vasculera) fluoxetine 20 mg capsule 20 mg PO DAILY 08/15/24 08/15/24 History furosemide 40 mg tablet (Lasix) 40 mg PO DAILY 08/15/24 08/15/24 History gabapentin 300 mg capsule 900 mg PO BID 08/15/24 08/15/24 History metoprolol succinate 25 mg 25 mg PO DAILY 08/15/24 08/15/24 History tablet,extended release 24 hr omeprazole 40 mg capsule,delayed 40 mg PO DAILY 08/15/24 08/15/24 History release potassium chloride 20 mEq oral 20 meq PO DAILY 08/15/24 08/15/24 History packet (Klor-Con) sacubitril 24 mg-valsartan 26 mg 1 tab PO BID 08/15/24 08/15/24 History tablet (Entresto) tizanidine 4 mg capsule (Zanaflex) 4 mg PO TID PRN muscle spasticity 08/15/24 08/15/24 History zolpidem 10 mg tablet (Ambien) 08/15/24 History Allergies Allergy/AdvReac Type Severity Reaction Status Date / Time doxycycline Allergy Unknown Verified 08/15/24 10:16 Penicillins AdvReac Severe Vomiting Verified 08/15/24 09:26 morphine AdvReac Mild Gastrointestinal Verified 08/15/24 10:16 Upset Exam Narrative Exam Narrative: Alex Avlarado MD personally performed the services described in this documentation, as scribed by Negin Cline RDMS in my presence and it is both accurate and complete. Negin Alvarado RDMS, am scribing for, and in the presence of, Dr. Alex Villegas and in the presence of the patient. Constitutional Documenting provider has reviewed patient's vital signs: yes Common normals: oriented x3 Nutritional appearance: overweight Lymph Lymphatic: no lymphedema noted Cardio Peripheral pulses: posterior tibial pulses present and dorsalis pedis pulses present Extremity General: calf tenderness, edema and other findings Right lower extremity: lower leg Right lower leg: inspection and palpation Left lower extremity: lower leg Left lower leg: inspection and palpation Other: Heeled right proximal anterior lower leg wound. Left heeled mid-medial lower leg wound. Neuro Common normals: oriented x3 Assessment and Plan Assessment and Plan (1) Status post laser ablation of incompetent vein: (2) Pain due to varicose veins of both lower extremities: Plan The patient tolerated the procedure well without complication.? The patient verbalizes understanding and states they will comply.? Patient was given post- procedure instructions. Patient was discharged in good condition.? Scheduled to undergo follow-up evaluation/additional laser treatment on?12/06/24. Alex Alvarado MD personally performed the services described in this documentation, as scribed by Negin Cline RDMS in my presence and it is both accurate and complete. I, Negin Cline RDMS, am scribing for, and in the presence of, Dr. Alex Villegas and in the presence of the patient. Procedures Procedure Instructions Procedures Plan of care: Risks and benefits of the procedure were discussed at length and informed written consent was obtained.? Time-out completed for verification of correct patient, procedure and site.? Staff present during time-out: Mirna Richmond RN,? Alex Villegas MD, Tricia Agarwal RDMS,RVT, Negin Cline RDMS. Time Out Time__1022 Patient prepped and procedure performed in usual sterile fashion. Risk of injury related to use of Diode laser and/or laser devices? __BB___ ? Serial number of laser used :? [id number] Control panel self test performed, electrical cords in good condition, floor is dry, basin of water available, fire extinguisher in close proximity_BB__ Polycarbonate goggles available and Laser warning signs outside of doors___BB___ Eye protection provided to patient and staff in room_BB___ Use of laser retardant drapes and dull blackened instruments as directed__BB___ Use of nonflammable prep solutions and use of saline soaked sponges to protect tissues as indicated _BB___ Laser operated by __Alex Villegas MD Physician verbal confirmation laser locked in place__BB__ Site of laser treatment #1: mid medial right lower leg Willams _8.0___ Average laser use __179 Joules Average laser use___22 seconds Pulse continuous _BB___? Pulse intermittent ___ 1% Buffered Lidocaine used for local numbing Site of laser treatment #2: distal medial right lower leg Willams _8.0___ Average laser use __129 Joules Average laser use___16 seconds Pulse continuous _BB___? Pulse intermittent ___ 1% Buffered Lidocaine used for local numbing Evaluated patient for signs and symptoms of electrical injury __BB___ ? Skin clear at insertion site __BB___ Laser start time (date and time) 11/22/24@ 1026 Laser stop time (date and time) 11/22/24 @ 1035 Patient tolerated procedure well.? Right leg Coban dressing applied to lower leg. Will return on 12/06/24 for Right leg limited venous ultrasound and exam. IAlex MD personally performed the services described in this documentation, as scribed by Negin Cline RDMS in my presence and it is both accurate and complete. I, Negin Cline RDMS, am scribing for, and in the presence of, Dr. Alex Villegas and in the presence of the patient.
--- NOTE | 2024-11-22 13:43 | P.DS_ITS ---
Discharge Plan Discharge Disposition: Home, Self-Care Outpatient Diagnostics: [facility] Facility EST LMTD (Routine) Timeframe: 3 Weeks Facility: [facility] - Location: Vein Center Ordered By: Alex Villegas [facility] EXT Venous RT LMTD (Routine) Timeframe: 3 Weeks Facility: [facility] - Location: Vein Center Ordered By: Alex Villegas Follow Up Appointments: 12/06/24 Plan of Treatment: Follow up right leg venous ultrasound and exam Patient Instructions: Endovenous Ablation (DC) Print Language: [place] Discharge Date/Time: 11/22/24 13:46
== END 2024-11-22 13:46 | disposition home or self-care (01) ==
PROVIDERS: PCP Radiology Diagnostic Radiology; Visit Provider Radiology Diagnostic Radiology
DX: I83.813 Varicose veins of bilateral lower extremities with pain (principal)
CPT/HCPCS: 36478

== ENCOUNTER 2024-12-06 10:50 | Outpatient (OUT) | payer OTHER, SELFPAY ==
--- NOTE | 2024-12-06 11:24 | VEIN_ITS ---
Patient Name: INDIO FUENTES MR#: [id number] : 1955 Exam Date: 12/06/2024 Ordering Doctor: DR THOMAS VILLEGAS M.D. RADIOLOGY REPORT PROCEDURE: [facility] EXT VENOUS RT LMTD COMPARISON: [facility] EXT VENOUS RT LMTD, 10/19/2024. INDICATIONS: I80.01 - Phlebitis and thrombophlebitis of superficial veins right leg TECHNIQUE: Lower extremity cárdenas scale and Duplex Doppler evaluation of the deep venous system from the inguinal ligament through the calf veins. FINDINGS: REGION: Right lower extremity. THROMBI: Negative for DVT. Heat induced thrombus in distal medial lower leg firearms expert. COMPRESSIBILITY: Non-compressible segments corresponding to thrombus FLOW: Areas of no flow corresponding to thrombus OTHER: Multiple patent perforators remain. CONCLUSION: 1. Successful post ablation occlusion of several right leg firearms expert veins. Dictated by: Thomas Villegas M.D. on 12/06/2024 at 11:57 Approved by: Thomas Villegas M.D. on 12/06/2024 at 14:03
--- NOTE | 2024-12-06 11:24 | VEIN_ITS ---
Patient Name: INDIO FUENTES MR#: [id number] : 1955 Exam Date: 12/06/2024 Ordering Doctor: DR THOMAS COLBERT M.D. RADIOLOGY REPORT PROCEDURE: [facility] EST LMTD [facility] - OFFICE VISIT FOLLOW UP COMPARISON: [facility], 11/19/2024. PROGRESS NOTES: The patient reports improvement in leg symptoms. There has been interval reduction in varicosities. The patient has followed our recommendations to walk 20-30 minutes once or twice per day since the procedure. Physical exam demonstrates decrease in varicosities of the leg. Persistent varicosities are identified along the bilaterally. Review of the ultrasound performed the same day demonstrates occlusive thrombus extending throughout the treated vein(s), see separate report, consistent with a successful ablation. No thrombus extending into or beyond the saphenofemoral junction. The patient expressed a desire to proceed with treatment of remaining incompetent varicosities. The patient was informed that treatment was a process and would require several procedures/sessions. [facility] IM[facility]: 1. Successful ablation of some of the right leg treated dietary server vein(s). 2. Persistent superficial varicose veins and lower extremity symptoms. PLAN: 1. Microfoam chemical ablation of left leg incompetent branch saphenous varicosities. 2. Follow-up of right leg dietary server veins for possible closure of incompletely thrombosed treated dietary server veins. Nurse notes, history and physical were reviewed and confirmed, see attached forms. The nurse was present throughout the physical exam and consultation Dictated by: Thomas Colbert M.D. on 12/06/2024 at 14:03 Approved by: Thomas Colbert M.D. on 12/06/2024 at 14:05
--- OUTSIDE RECORDS SUMMARY | 2024-12-06 11:26 | XMS_ITS | CCD ---
Author Organization [facility] Inform ion Partnership [facility] Care Team Providers Care Technical Spec Name Role Phone LUIS YANG Admitting Unavailable LUIS YANG Attending Unavailable LUIS VELAZQUEZ Referring Unavailable LUIS VELAZQUEZ Primary Care Unavailable DALTON, DR SMITH Admitting Unavailable DALTON, DR SMITH Attending Unavailable DALTON, DR SMITH Primary Care Unavailable DALTON, DR SMITH Consulting Unavailable ROBERTS, DR INDIO Barron Consulting Unavailable DALTON, DR SMITH Admitting Unavailable DALTON, DR SMITH Attending Unavailable DALTON, DR SMITH Primary Care Unavailable DALTON, DR SMITH Consulting Unavailable HEMMER, DR JUHI Peterson Admitting Unavailable HEMMER, DR JUHI Peterson Attending Unavailable DALTON, DR SMITH Primary Care Unavailable ZIEBER, DR THOMAS Cook Consulting Unavailable HEMMER, DR JUHI Peterson Consulting Unavailable DALTON, DR SMITH Primary Care Unavailable STUART, DR GUTIERREZ Cook Consulting Unavailable STUART, DR GUTIERREZ Cook Admitting Unavailable STUART, DR GUTIERREZ Cook Attending Unavailable GABBI WALSH Consulting Unavailable KOFFI DAO Consulting Unavailable LALO HICKMAN Consulting Unavailable MICHAEL REINOSO Consulting Unavailab RENATO Mckeon Admitting Unavailable RENATO WAITE Attending Unavailable CARLOS WEISS Consulting Unavailable INDIO MCHUGH Consulting Unavailable HALIE GUADALUPE Consulting Unavailable Marina Cheng Attending Unavailab Marina Hutton Attending Unavailab Marina Hutton Attending Unavailab MD Henok Leggett Attending Unavaila indu Cheng, Marina Attending Unavailab Gordon Orellana Admitting Unavailable Gordon Smith Attending Unavailable Luis Velazquez Primary Care Unavailable Sirisha Savage Consulting [...] Ku Consulting Unavailab David Sung Consulting Unavailable Moreno Roe Consulting Unavailable Obgiorgi Gina Consulting Unavailable Timothy Vaughan Consulting Unavailable Daromar, Obaydah M Consulting Unavailable Katharine Caballero Consulting Unavailable Debora Hunt Consulting Unavailable Liliana Fany Consulting Unavailable Jenae Mcgee Consulting Unavailable Fer Mayfield Consulting Unavailable Jackie Berry Consulting Unavailable Norma Hurd Consulting Unavailable Chirag Hatch Consulting UnavailLuis Baugh Primary Care Unavailable Honey Hines Attending Unavailable Honey Hines Admitting Unavailable Luis Velazquez MD Primary Care Provider CHAPO Velazquez [...] [id number] MD Abran Perera Other Provider MD Eilene Roca Other Provider Ana ANP-BC Tram Other Provider MD Cassi Suresh Other Provider MD Tushar Pendleton Other Provider MD Harjit Lopez Other Provider MD Katya Best Other Provider DO Henok Doshi Other Provider [phone] MD Rush Flores Other Provider MD Dmitri Radford Other Provider MD Oren Burnett Other Provider Paul, TECHNICAL PROJECT MANAGER-C Mihaela Thibodeaux Other Provider [phone] MD Gen Reich Other Provider MD Gamal Bone Other Provider MD Imelda Riddle Other Provider MD Matthias Pablo Other Provider DO Giselle Jaquez Other Provider Al MD Jak Recio Other Provider DO David Rossi Other Provider DO Moreno Roe Other Provider NAZANIN Fung Other Provider DO Timothy Vaughan Other Provider [phone] MD Jaime Trivedi Other Provider NAZANIN Caballero Other Provider [phone] STERLING Hunt Other Provider Unavailable LISA Ford Other Provider UnavailLISA Guerra Other Provider Unavailable MD Fer Mayfield Other Provider RED Berry Other Provider MD Norma Hurd Other Provider MD Chirag Hatch Other Provider NAZANIN Hines Attending Provider [phone] LUIS VELAZQUEZ Primary Care Unavailable LUIS VELAZQUEZ B Primary Care Unavailable BOOTHBY, ABELARDO C Admitting Unavailable BOOTHBY, ABELARDO C Attending Unavailable LUIS VELAZQUEZ B Primary Care Unavailable BOOTHBY, ABELARDO C Admitting Unavailable BOOTHBY ABELARDO Jake Attending Unavailable LUIS VELAZQUEZ B Primary Care Unavailable BOBY AGUEROIN Consulting Unavailable LESLIE, LORIE Consulting Unavailable BESSY, MAXIMILIANO L Consulting Unavailable ALI, NASSER Y Consulting Unavailable LOUKA, GLEN Consulting Unavailable IFTIKHAR VELAZQUEZEL B Primary Care Unavailable ORIOWO, HELEN Attending Unavailable MORENO CARDENAS Referring Unavailable LUIS VELAZQUEZ B Primary Care Unavailable EDWINO, HELEN Attending Unavailable LUIS VELAZQUEZ B Referring Unavailable LUIS VELAZQUEZ B Primary Care Unavailable Luis Velazquez MD Unavailable [phone] Luis Velazquez MD Primary Care Provider [phone] LUIS VELAZQUEZ Primary Care Unavailable LAUREN MARTIN Attending Unavailable LAUREN MARTIN Attending Unavailable LAUREN MARTIN Referring Unavailable DALTON LUIS B Primary Care Unavailable ORIOWO, HELEN Attending Unavailable EDWINO, HELEN Referring Unavailable LUIS VELAZQUEZ B Primary Care Unavailable LUIS VELAZQUEZ B Referring Unavailable DALTON LUIS B Primary Care Unavailable LUIS VELAZQUEZ B Referring Unavailable DALTON LUIS B Primary Care Unavailable LUIS VELAZQUEZ B Referring Unavailable DALTON LUIS B Primary Care Unavailable Luis Velazquez MD Primary Care Provider [phone] LUIS VELAZQUEZ Attending Unavailable JUIH BECKFORD Attending Unavailable DANIEL, EVA García Attending Unavailable VELAZQUEZ, LUIS Castellanos Attending Unavailable RUSHER, MORENO Ibrahim Attending Unavailable RUSHER, MORENO Ibrahim Referring Unavailable HEMMER, JUHI Peterson Attending Unavailable DANIEL, EVA García Attending Unavailable RUSHER, MORENO Ibrahim Attending Unavailable RUSHER, MORENO Ibrahim Attending Unavailable VELAZQUEZ, LUIS B Attending Unavailable VELAZQUEZ, LUIS B Referring Unavailable VELAZQUEZ, LUIS B Attending Unavailable BLACKSTON, GERARDO T Attending Unavailable VELAZQUEZ, LUIS B Referring Unavailable DANIEL, EVA García Attending Unavailable KELBLEY, MARGO Attending Unavailable VELAZQUEZ, LUIS B Referring Unavailable DANIEL, EVA García Referring Unavailable VELAZQUEZ, LUIS B Referring Unavailable BLACKSTON, GERARDO T Attending Unavailable KELBLEY, MARGO Attending Unavailable VELAZQUEZ, LUIS B Referring Unavailable DANIEL, EVA García Attending Unavailable REINOSOALEXANDRE Attending Unavailable HEMMER, JUHI Peterson Attending Unavailable RUSHER, MORENO Ibrahim Attending Unavailable WENDIE, IVONNE Referring Unavailable GEETHA, FAB Referring Unavailable WILLIS, KUSH Referring Unavailable WILLIS, KUSH Referring Unavailable ELTAHAWY, EHAB Admitting Unavailable ELTAHAWY, EHAB Attending Unavailable WENDIE, IVONNE Admitting Unavailable WENDIE, IVONNE Attending Unavailable WILLIS, KUSH Admitting Unavailable WILLIS, KUSH Attending Unavailable WENDIE, IVONNE Admitting Unavailable WENDIE, IVONNE Attending Unavailable WENDIE, IVONNE Referring Unavailable WENDIE, IVONNE Attending Unavailable GEETHA, FAB Attending Unavailable GEETHA, FAB Attending Unavailable GEETHA, FAB Attending Unavailable WENDIE, IVONNE Attending Unavailable WENDIE, IVONNE Referring Unavailable GEETHA, FAB Attending Unavailable WENDIE, IVONNE Referring Unavailable GEETHA, FAB Attending Unavailable WENDIE, IVONNE Referring Unavailable Allergies Allergy Classification Reported Allergen(s) Allergy Type Date of Onset Reaction(s) Facility (5 sources) Doxycycline; Translations: [DOXYCYCLINE] Drug Allergy 8 Itching [facility] Repository (5 sources) Morphine; Translations: [MORPHINE] Drug Allergy 3 [facility] Repository (7 sources) Penicillins; Translations: [PENICILLINS] Drug allergy (disorder) 3 Hives [facility] Repository (1 source) Doxycycline Drug Allergy 0 [facility] Repository (1 source) Penicillins Drug allergy (disorder) 0 [facility] Repository (20 sources) Doxycycline Drug Allergy 2 Itching, Nausea, Other (See Comments) [facility] (4 sources) Penicillins Propensity to adverse reactions to drug 8 Rash, Hives [facility] Work Phone: (20 sources) Morphine Drug Allergy 0 GI intolerance, Nausea And Vomiting [facility] (20 sources) Penicillins Drug Intolerance 4 Hives, Other, [...] / HYDROcodone bitartrate 7.5 mg oral tablet (14 sources) Opioid Agonist Start: 08-22-2024 End: 09-19-2024 take 1 tablet by mouth every six hours for pain HYDROcodone-acetaminophen (Wilmer) 7.5-325 MG tablet Indications: Lumbar spondylosis Take 1 tablet by mouth every 6 (six) hours if needed for severe pain for up to 15 days 60 tablet 09/04/2024 09/19/2024 Active Start: 07-30-2024 End: 08-14-2024 take 1 tablet by mouth every six hours for pain HYDROcodone-acetaminophen (Wilmer) 7.5-32 5 MG tablet Indications: Lumbar spondylosis Take 1 tablet by mouth every 6 (six) hours if needed for severe pain for up to 15 days 60 tablet 07/30/2024 08/14/2024 Active Start: 07-12-2024 End: 07-30-2024 take 1 tablet by mouth every six hours for pain HYDROcodone-acetaminophen (Wilmer) 5-325 MG tablet Indications: Back muscle spasm , Lumbar paraspinal muscle spasm , Acute myofascial strain of lumbar region, subsequent encounter Take 1 tablet by mouth every 6 (six) hours if needed for severe pain for up to 15 days 60 tablet 07/12/2024 07/30/2024 Discontinued (Ineffective) amiodarone hydrochloride 100 mg oral tablet (20 sources) Antiarrhythmic Start: 04-30-2024 take 1 tablet by mouth in the morning amiodarone (Pacerone) 100 MG tablet Take 100 mg by mouth in the morning. 04/30/2024 Active apixaban 5 mg oral tablet (20 sources) Factor Xa Inhibitor Start: 05-09-2024 Eliquis [...] 11/19/2022 Active aspirin 81 mg chewable tablet (5 sources) Platelet Aggregation Inhibitor, Nonsteroidal Anti-inflammatory Drug Start: 11-06-2018 End: 09-29-2022 take 1 tablet by mouth once daily Aspirin (Children's Aspirin) 81 mg Tablet,Chewable Active 81 MG PO Daily September 29, 2022 12:00am take 1 tablet by mouth in the mo rning aspirin 81 mg Take 1 tablet (81 mg total) by mouth in the morning. Active atorvastatin 80 mg oral tablet (20 sources) HMG-CoA Reductase Inhibitor Start: 05-16-2024 take 1 tablet by mouth once daily atorvastatin (Lipitor) 80 MG tablet Indications: Athscl heart disease of [place] coronary artery w/o ang pctrs (CMS/HCC) TAKE 1 TABLET BY MOUTH EVERY DAY 90 tablet 2 05/16/2024 Active Start: 10-25-2023 take 1 tablet by jane th once daily atorvastatin (Lipitor) 80 MG tablet Indications: Athscl heart disease of [place] coronary artery w/o ang pctrs (CMS/HCC) TAKE [...] 12/12/2023 Active carvedilol 12.5 mg oral tablet (13 sources) alpha-Adrenergic Jessica, beta-Adrenergic Jessica Start: 10-20-2022 [...] 2018 2:36pm cefuroxime 250 mg oral tablet (3 sources) Cephalosporin Antibacterial Start: 10-20-2020 take 1 tablet by mouth twice daily ceFUROxime (CEFTIN) 250 mg tablet Take 1 tablet (250 mg total) by mouth 2 (two) times a day. 20 tablet 10/20/2020 Active cetirizine hydrochloride 10 mg oral [...] 2022 1:59pm dapagliflozin 10 mg oral tablet (20 sources) Sodium-Glucose Cotransporter 2 Inhibitor Start: 03-08-2024 End: 03-08-2025 take 10 mg by mouth in the morning dapagliflozin (Farxiga) 10 MG Take 10 mg by mouth in the morning. 03/08/2024 03/08/2025 Active Dietary Management Product (Vasculera) tablet (20 sources) Start: 11-08-2023 take 1 tablet by mouth in the morning Dietary Management Product (Vasculera) tablet Take 1 tablet by mouth in the morning. 11/08/2023 Active Start: 11-08-2023 take 1 tablet by jane th in the morning Dietary Management Product (Vasculera) tablet Take 1 tablet by mouth in the morning. 0 11/08/2023 Active 24 hr dilTIAZem hydrochloride 180 mg extended release oral capsule (1 source) Calcium Channel Jessica Start: 01-28-2024 take 1 capsule by mouth every twenty-four hours in the morning dilTIAZem CD (CARDIZEM CD) 180 mg 24 hr capsule Take 1 capsule (180 mg total) by mouth in the morning. 28 capsule 01/28/2024 Active diosmin complex no.1 (VASCULERA) 630 mg tablet (2 sources) Start: 11-08-2023 take 1 tablet by [...] Itching 10 tablet 0 10/20/2022 11/19/2022 Active famotidine 20 mg oral tablet (2 sources) Histamine-2 Receptor Antagonist Start: 11-09-2024 take 1 tablet by mouth in the morning famotidine (Pepcid) 20 MG tablet Take 20 mg by mouth in the morning and 20 mg in the evening. 11/09/2024 Active 2 ml fentaNYL 0.05 mg/ml injection (1 source) Opioid Agonist Start: 11-09-2022 fentaNYL (SUBLIMAZE) injection 25 mcg fludrocortisone acetate 0.1 mg oral tablet (20 sources) Start: 06-15-2023 End: 05-21-2025 take 1 [...] oral tablet (20 sources) Loop Diuretic Start: 03-09-2024 take 2 tablets by mouth once daily furosemide (Lasix) 20 MG tablet Indications: Lymphedema Take 2 tablets (40 mg) by mouth Daily 03/09/2024 Active Start: 01-27-2024 furosemide (La six) 20 MG tablet Indications: Lymphedema Take 1 tablet in morning , 1 tablet in evening 200 tablet 3 08/14/2024 Active Start: 07-08-2023 take 1 tablet by [...] oral capsule (20 sources) Anti-epileptic Agent Start: 05-09-2023 End: 06-14-2024 take 3 capsules by mouth at bedtime gabapentin (Neurontin) 300 MG capsule Indications: 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) Take 3 capsules by mouth in the morning , in the evening and before bedtime 270 capsule 5 06/14/2024 Active Start: 09-11-2022 End: 09-29-2022 take 900 [...] 2018 11:00pm November 09, 2018 7:09pm Lanolin Tcvbsea-Lj-X.Pet-[place]cad[place] (Minerin Creme) Cream (1 source) Start: 09-29-2022 Lanolin Fcasttc-Bj-C.Pet-[place] (Minerin Creme) Cream Active 1 APPLIC TOPICAL Twice daily September 29, 2022 12:00am meloxicam 15 mg oral tablet (11 sources) Nonsteroidal Anti-inflammato ry Drug Start: 09-03-2024 End: 12-02-2024 take 1 tablet by mouth once daily meloxicam (Mobic) 15 MG tablet Indications: Metatarsalgia of both feet TAKE 1 TABLET BY MOUTH EVERY DAY 90 tablet 09/12/2024 Active Start: 11-07-2018 End: 11-09-2018 take 15 mg [...] succinate 25 mg extended release oral tablet (20 sources) beta-Adrenergic Jessica Start: 10-03-2024 take 1 tablet by mouth once daily metoprolol succinate XL (Toprol-XL) 25 MG 24 hr tablet Indications: Essential hypertension (CMS/HCC) TAKE 1 TABLET BY MOUTH DAILY 30 tablet 11 10/03/2024 Active Start: 03-08-2024 End: 03-08-2025 take 1 tablet by mouth every twenty-four hours in the morning metoprolol succinate XL (Toprol-XL) 25 MG 24 hr tablet Take 25 mg by mouth in the morning. 03/08/2024 03/08/2025 Active Start: 06-16-2018 End: 11-06-2018 take 25 mg by mouth twice daily Metoprolol Tartrate Di scontinued 25 MG PO Twice daily June 15, 2018 11:00pm November 06, 2018 6:32pm nystatin 100 unt/mg topical powder (1 source) Polyene Antifungal Start: 09-29-2022 Nystatin (N ystop) 100,000 unit/gram Powder Active 1 APPLIC TOPICAL Twice daily 1 September 29, 2022 12:00am omeprazole 40 mg delayed release oral capsule (20 sources) Proton Pump Inhibitor Start: 11-09-2024 omeprazo le (PriLOSEC) [address] capsule Indications: Gastro-esophageal reflux disease without esophagitis TAKE 1 CAPSULE BY MOUTH EVERY DAY 30 MINUTES BEFORE MORNING MEAL 100 capsule 3 11/09/2024 Active Start: 11-14-2023 omeprazole (Pr iLOSEC) [address] capsule Indications: Gastro-esophageal reflux disease without esophagitis TAKE 1 CAPSULE BY MOUTH EVERY DAY 30 MINUTES BEFORE MORNING MEAL FOR 90 DAYS 100 capsule 3 11/14/2023 Active Start: 09-29-2022 take 40 mg by mouth once daily Omeprazole Active 40 MG PO Daily 60 30 September 29, 2022 12:00am Start: 11-06-2018 End: [...] hours Oxycodone Active 5 MG PO Q4H 12 05September 29, 2022 microencapsulated potassium chloride 10 meq extended release oral tablet (20 sources) Start: 02-15-2024 End: 02-14-2025 take 1 [...] mg / valsartan 26 mg oral tablet (20 sources) Angiotensin 2 Receptor Jessica Start: 03-08-2024 [...] 2018 11:03pm tiZANidine 4 mg oral tablet (19 sources) Central alpha-2 Adrenergic Agonist Start: 07-06-2024 End: 09-12-2024 take 1 tablet by mouth every eight hours for muscle spasms tiZANidine (Zanaflex) 4 MG tablet Indications: Back muscle spasm TAKE 1 TABLET (4 MG) BY MOUTH EVERY 8 HOURS IF NEEDED FOR MUSCLE SPASMS 60 tablet 1 09/12/2024 Active triamcinolone acetonide 1 mg/ml topical cream (2 sources) Corticosteroid Start: 09-11-2022 End: 09-29-2022 Triamcinolone Acetonide Active 1 APPLIC TOPICAL Twice daily 1 September 29, 2022 12:00am zolpidem tartrate 10 mg oral tablet (20 sources) gamma-Aminobutyric Acid-ergic Agonist Start: 11-28-2023 End: 09-10-2024 zolpidem (Ambien) 10 MG tablet Indications: Primary insomnia Take 1 tablet (10 mg) by mouth as needed at bedtime for sleep 30 tablet 2 09/10/2024 Active Start: 06-16-2018 End: 09-29-2022 take 10 [...] November 06, 2018 6:31pm polyethylene glycol 3350 30385 mg powder for oral solution (1 source) [...] 06, 2018 12:00am November 09, 2018 7:01pm rivaroxaban 20 mg oral tablet (10 sources) Factor Xa Inhibitor Start: 02-14-2024 End: 06-28-2024 take 1 tablet by mouth at mealtime Xarelto 20 MG tablet Take 20 mg by mouth in the evening. Take with meals 02/14/2024 06/28/2024 Discontinued (Discontinued by another clinician) Start: 01-09-2024 End: 01-08-2025 take 1 tablet by mouth in the morning rivaroxaban (XARELTO) 10 mg tablet Take 1 tablet (10 mg total) by mouth in the morning. 01/09/2024 01/08/2025 Active rOPINIRole 2 mg oral tablet (3 sources) [...] 1:59pm tamsulosin hydrochloride 0.4 mg oral capsule (4 sources) alpha-Adrenergic Jessica Start: 11-09-2018 End: 09-29-2022 [...] Date Documented Date Episodic/Chronic Acute myocardial infarction (20 sources) Acute non-ST segment elevation myocardial infarction; Translations: [Non-ST elevation (NSTEMI) myocardial infarction] Onset: 8 04-17-2023 Chronic Administrative/social admission (1 source) Other reduced mobility; Translations: [Other reduced mobility] Onset: 2 Episodic Cardiac dysrhythmias (20 sources) Unspecified atrial fibrillation; Translations: [Paroxysmal atrial fibrillation] Onset: 4 03-09-2024 Chronic Chronic obstructive pulmonary disease and bronchiectasis (20 sources) Chronic obstructive pulmonary disease, unspecified; Translations: [Chronic obstructive lung disease] Onset: 8 Resolved: 4 09-12-2022 Chronic Chronic ulcer of skin (20 sources) Ulcer; Translations: [Ulcerative lesion] Onset: 8 06-16-2018 Chronic Coagulation and hemorrhagic disorders (20 sources) Hypercoagulability state; Translations: [Other primary thrombophilia] Onset: 5 04-17-2023 Chronic Congestive heart failure; nonhypertensive (20 sources) Heart failure, unspecified; Translations: [Congestive heart failure] Onset: 8 10-05-2022 Chronic Coronary atherosclerosis and other heart disease (20 sources) Atherosclerotic heart disease of [place] coronary artery without angina pectoris; Translations: [Coronary arteriosclerosis] Onset: 5 11-06-2018 Chronic Deficiency and other anemia (2 sources) Anemia, unspecified; Translations: [Anemia, unspecified] Onset: 2 09-30-2022 Episodic Deficiency and other anemia (1 source) Anemia; Translations: [Anemia, unspecified] 09-12-2022 Episodic Diabetes mellitus with complications (20 sources) Disorder of nervous system due to diabetes mellitus; Translations: [Type 2 diabetes mellitus with other diabetic neurological complication] Onset: 8 Resolved: 4 04-17-2023 Chronic Disorders of lipid metabolism (20 sources) Hyperlipidemia; Translations: [Hyperlipidemia, unspecified] Onset: 5 10-19-2022 Chronic Diverticulosis and diverticulitis (20 sources) Diverticulosis of colon; Translations: [Diverticulosis of [...] 07-30-2024 Episodic Joint disorders and dislocations; trauma-related (20 sources) Traumatic arthropathy-knee; Translations: [Traumatic arthropathy, unspecified knee] Onset: 1 04-17-2023 Chronic Miscellaneous mental health disorders (2 sources) Primary insomnia; Translations: [Primary insomnia] 09-10-2024 Chronic Mood disorders (20 sources) Depressive disorder; Translations: [Depressive disorder] Onset: 9 04-17-2023 Chronic Nonspecific chest pain (3 sources) Chest pain; Translations: [Chest pain, unspecified] Onset: 4 11-06-2018 Episodic Osteoarthritis (20 sources) Arthritis; Translations: [Unspecified osteoarthritis, unspecified site] Onset: 8 04-17-2023 Chronic Other acquired deformities (20 sources) Contracture of joint of right ankle; Translations: [Contracture, right ankle] Onset: 3 04-17-2023 Chronic Other acquired deformities (2 sources) Equinus contracture of the ankle; Translations: [Contracture, right ankle] 09-03-2024 Chronic Other acquired deformities (2 sources) Equinus contracture of the ankle; Translations: [Contracture, left ankle] 09-03-2024 Chronic Other aftercare (1 source) Polypharmacy ; Translations: [Other terminologist (current) drug therapy] 11-06-2018 Episodic Other circulatory disease (1 source) Low blood pressure; Translations: [Hypotension, unspecified] 11-06-2018 Episodic Other connective tissue disease (20 sources) Artificial knee joint present; Translations: [Presence of unspecified artificial knee joint] Onset: 8 06-25-2023 Chronic Other connective tissue disease (20 sources) Polymyalgia; Translations: [Polymyalgia rheumatica] Onset: 3 04-17-2023 Chronic Other connective tissue disease (5 sources) Rotator cuff arthropathy of left shoulder; [...] diseases of veins and lymphatics (20 sources) Stasis dermatitis and venous ulcer of right lower extremity due to chronic peripheral venous hypertension; Translations: [Chronic venous hypertension (idiopathic) with ulcer and inflammation of right lower extremity] Onset: 8 04-17-2023 Chronic Other diseases of veins and lymphatics (20 sources) Lymphedema; Translations: [Lymphedema, not elsewhere classified] Onset: 8 Resolved: 4 04-17-2023 Chronic Other diseases of veins and lymphatics (2 sources) Chronic peripheral venous hypertension with lower extremity complication; Translations: [Chronic venous hypertension (idiopathic) with ulcer and inflammation of right lower extremity] 11-15-2024 Chronic Other diseases of veins and lymphatics [...] Other hereditary and degenerative nervous system conditions (20 sources) Restless legs; Translations: [Restless legs syndrome] [...] Onset: 2 Episodic Other nervous system disorders (20 sources) Lesion of ulnar nerve; Translations: [Lesion [...] Chronic Other nutritional; endocrine; and metabolic disorders (20 sources) Body mass index 40+ - severely obese; Translations: [Body mass index (BMI) 40.0-44.9, adult] Onset: 9 04-17-2023 Chronic Other nutritional; endocrine; and metabolic disorders (20 sources) Morbid obesity; Translations: [Morbid (severe) obesity due to excess calories] Onset: 8 04-17-2023 Chronic Other screening for suspected conditions (not mental disorders or infectious disease) (2 sources) Patient encounter status; Translations: [Encounter for screening for malignant neoplasm of prostate] 11-15-2024 Episodic Peripheral and visceral atherosclerosis (1 source) Peripheral vascular disease; Translations: [Peripheral vascular disease, unspecified] 11-06-2018 Chronic Pulmonary heart disease (20 sources) Pulmonary hypertension; Translations: [Pulmonary hypertension, unspecified] Onset: 8 04-17-2023 Chronic Residual codes; unclassified (20 sources) Obstructive sleep apnea syndrome; Translations: [Obstructive sleep apnea (adult) (pediatric)] Onset: 8 04-17-2023 Chronic Residual codes; unclassified (1 source) Insomnia, [...] Pelvic hematoma; Translations: [Pelvic hematoma] 09-12-2022 Unclassified (1 source) New Patient Onset: 3 Unclassified (1 source) chest pain, feeling faint Onset: 4 Unclassified (3 sources) Severe obesity; Translations: [Class 3 obesity in adult] Onset: 8 12-09-2017 Unclassified (2 sources) Other persistent atrial fibrillation; Translations: [Other persistent atrial fibrillation] Onset: 4 Viral infection (1 source) COVID-19; Translations: [COVID-19] Onset: 2 Past or Other Problems Problem Classification Problem Date Documented Da te Episodic/Chronic Abdominal hernia (20 sources) Hiatal hernia; Translations: [Diaphragmatic hernia without obstruction or gangrene] Onset: 03-20-2021 04-17-2023 Episodic Abdominal pain (1 source) Unspecified abdominal pain; Translations: [UNSPECIFIED ABDOMINAL PAIN] Onset: 09-03-2021 Episodic Acute and unspecified renal failure (20 sources) Acute renal failure syndrome; Translations: [Acute kidney failure, unspecified] Onset: 10-17-2020 04-17-2023 Episodic Bacterial infection; unspecified site (20 sources) Methicillin resistant Staphylococcus aureus infection; Translations: [Methicillin resistant Staphylococcus aureus infection, unspecified site] Onset: 06-21-2018 04-17-2023 Episodic Calculus of urinary tract (20 sources) Kidney stone; Translations: [Calculus of kidney] [...] [Nocturia] Onset: 01-31-2018 04-17-2023 Episodic Intracranial injury (20 sources) Traumatic brain injury; Translations: [TBI (traumatic brain injury)] Onset: 04-17-2023 04-17-2023 Episodic Malaise and fatigue (20 sources) Weakness; Translations: [Asthenia] Onset: 06-17-2020 10-05-2022 Episodic Nausea and vomiting (4 sources) Nausea; Translations: [Nausea with vomiting, unspecified] Onset: 08-31-2021 Episodic Open wounds of extremities (20 sources) Unspecified open wound, left lower leg, initial encounter; Translations: [Disorder of ankle] Onset: 07-14-2022 Episodic Other acquired deformities (17 sources) Retrolisthesis; Translations: [Spondylolisthesis, site unspecified] Onset: 07-30-2024 07-30-2024 Episodic Other aftercare (1 source) long term care administrator (current) use of anticoagulants; Translations: [USP CURRNT USE ANTICOAGULANTS] Onset: 09-03-2021 Episodic Other aftercare (1 source) Other senior living (current) drug therapy; Translations: [OTH USP CURRENT DRUG THERAPY] Onset: 09-03-2021 Episodic Other circulatory disease (20 sources) Peripheral pulse absent; Translations: [Other specified symptoms and signs involving the circulatory and respiratory systems] Onset: 09-08-2022 09-08-2022 Episodic Other connective tissue disease (1 source) Pain in left lower leg; Translations: [PAIN IN LEFT LOWER LEG] Onset: 09-03-2021 Episodic Other connective tissue disease (20 sources) Muscle weakness; Translations: [Muscle weakness (generalized)] Onset: 06-17-2020 04-17-2023 Episodic Other connective tissue disease (20 sources) Plantar fascial fibromatosis; Translations: [Plantar fascial fibromatosis] Onset: 03-11-2017 04-17-2023 Episodic Other diseases of veins and lymphatics (20 sources) Venous insufficiency of leg; Translations: [Other specified disorders of veins] Onset: 11-04-2017 07-13-2018 Episodic Other diseases of veins and lymphatics (2 sources) Venous insufficiency (chronic) (peripheral); Translations: [Venous insufficiency (chronic) (peripheral)] Onset: 11-04-2017 Episodic Other diseases of veins and lymphatics (20 sources) Venous stasis; Translations: [Other specified disorders of veins] Onset: 05-13-2018 04-17-2023 Episodic Other diseases of veins and lymphatics (20 sources) Peripheral venous insufficiency; Translations: [Venous insufficiency (chronic) (peripheral)] Onset: 11-11-2017 04-17-2023 Episodic Other diseases of veins and lymphatics (20 sources) Venous varices; Translations: [Varicose veins of other specified sites] Onset: 12-13-2017 04-17-2023 Episodic Other fractures (2 sources) Flail chest, initial encounter for closed fracture; Translations: [Flail chest, initial encounter for closed fracture] Onset: 09-05-2022 Episodic Other fractures (20 sources) Closed flail chest; Translations: [Flail chest, initial encounter for closed fracture] Onset: 09-05-2022 09-05-2022 Episodic Other gastrointestinal disorders (1 source) Bariatric surgery status; Translations: [BARIATRIC SURGERY STATUS] Onset: 09-03-2021 Episodic Other gastrointestinal disorders (20 sources) Dysphagia; Translations: [Dysphagia, unspecified] Onset: 09-17-2019 04-17-2023 Episodic Other gastrointestinal disorders (20 sources) History of bariatric surgical procedure; Translations: [Bariatric surgery status] Onset: 09-10-2021 04-17-2023 Episodic Other injuries and conditions due to external causes (20 sources) Fracture of bone; Translations: [Other injury of unspecified body region, initial encounter] Onset: 10-19-2022 10-19-2022 Episodic Other lower respiratory disease (2 sources) Other forms of dyspnea; Translations: [Other forms of dyspnea] Onset: 02-14-2024 Episodic Other skin disorders (20 sources) Multiple skin tags; Translations: [Other hypertrophic disorders of the skin] Onset: 10-07-2015 04-17-2023 Episodic Other upper respiratory disease (20 sources) Feeling of lump in throat; Translations: [Globus sensation] Onset: 01-31-2018 04-17-2023 Episodic Phlebitis; thrombophlebitis and thromboembolism (20 sources) H/O: Deep vein thrombosis; Translations: [Personal history of other venous thrombosis and embolism] Onset: 04-09-2013 09-08-2022 Episodic Residual codes; unclassified (20 sources) Insomnia; Translations: [Insomnia, unspecified] Onset: 12-06-2017 09-29-2022 Episodic Residual codes; unclassified (20 sources) Amnesia; Translations: [Other amnesia] Onset: 04-17-2023 04-17-2023 Episodic Residual codes; unclassified (20 sources) Bilateral lower limb edema; Translations: [Localized edema] Onset: 11-11-2017 04-17-2023 Episodic Residual codes; unclassified (20 sources) Edema; Translations: [Edema, unspecified] Onset: 06-18-2013 04-17-2023 Episodic Residual codes; unclassified (20 sources) Impaired exercise tolerance; Translations: [Other general symptoms and signs] Onset: 04-17-2023 04-17-2023 Episodic Residual codes; unclassified (1 source) Pain, unspecified; Translations: [Pain, unspecified] Onset: 03-02-2024 Episodic Screening and history of mental health and substance abuse codes (20 sources) Personal history of nicotine dependence; Translations: [Ex-smoker] Onset: 01-31-2018 04-17-2023 Episodic Skin and subcutaneous tissue infections (1 source) Abscess; Translations: [Cellulitis, unspecified] Onset: 06-08-2013 Episodic Spondylosis; intervertebral disc disorders; other back problems (20 sources) Low back pain; Translations: [Lumbago] Onset: 11-11-2017 04-17-2023 Episodic Sprains and strains (5 sources) Lower back injury; Translations: [Strain of muscle, fascia and tendon of lower back, subsequent encounter] 06-12-2024 Episodic Unclassified (1 source) CONTACT W/AND (SUSP) EXPOS COVID-19; Translations: [CONTACT W/AND (SUSP) EXPOS COVID-19] Onset: 10-22-2021 Varicose veins of lower extremity (20 sources) Varicose veins of left lower extremity with ulcer of unspecified site; Translations: [Venous stasis ulcer of leg] Onset: 06-18-2013 12-14-2018 Episodic Viral infection (20 sources) Verruca plantaris; Translations: [Plantar wart] Onset: 04-17-2023 04-17-2023 Episodic Results Test Name Value Interpretation Reference Range Facility Telemedicineon 11-29-2024 Telemedicine [id number] Jonathan Collado L 1955 M Date Provider Department Center 11/29/2024 [facility] Family History Problem Relation Age of Onset Coronary artery disease Mother Coronary artery disease Father Family Status - Relation Status Age at Mother Father Level of Service:15418 [place] SYNCHRONOUS AUDIO-VIDEO VISIT EST MOD MDM 30 MIN Reason for Visit and Comments: Atrial Fibrillation [80] Congestive Heart Failure [127] Normal [facility] Telephoneon 11-16-2024 Telephone [id number] Jonathan Collado 1955 M Date Provider Department Center 11/16/2024 1987-[facility] VAS LAB [place] [facility] Family History Problem Relation Age of Onset Coronary artery disease Mother Coronary artery disease Father Family Status - Relation Status Age at Mother Father Reason for Visit and Comments: 3 week post ablation f/u [Other] [facility] Telephoneon 11-01-2024 Telephone [id number] Jonathan Collado 1955 M Date Provider Department Center 11/01/20241986-[facility] [place] [facility] Family History Problem Relation Age of Onset Coronary artery disease Mother Coronary artery disease Father Family Status - Relation Status Age at Mother Father Reason for Visit and Comments: afib ablation f/u [Other] [facility] ANESon 10-25-2024 ANES ----- ----- Attestation signed by Rush Garcia MD at 10/25/2024 10:28 AM I interviewed and examined this patient. I reviewed his medical record. I attest to this preprocedural evaluation. ----- Patient: Ind[place] Collado Procedure Information Date/Time: 10/25/24929 Procedure: Ablation a-fib paroxysmal - PC APPROVED 10/25-11/23 Location: [facility] ARCHITECTURAL RENDERER 1 EP / [facility] VASCULAR LAB (Cath) Providers: Ivonne Pressley MD Relevant Problems Anesthesia (+) Obstructive sleep apnea syndrome Cardio (+) Accelerated essential hypertension (+) Acute non-ST segment elevation myocardial infarction (CMS/HCC) (+) Atherosclerosis of coronary artery without angina pectoris (+) Hypertensive disorder (+) Paroxysmal atrial fibrillation (CMS/HCC) (+) Phlebitis of the femoral vein (CMS/HCC) (+) Pulmonary hypertension (CMS/HCC) (+) 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 (CMS/HCC) (+) Varicose veins of lower extremity with ulcer and inflammation (CMS/HCC) Endo (+) Type 2 diabetes mellitus without complication (CMS/HCC) GI (+) Gastroesophageal reflux disease without esophagitis /Renal (+) Acute renal failure (CMS/HCC) (+) Nephrolithiasis Pulmonary (+) Chronic obstructive pulmonary disease with acute exacerbation (CMS/HCC) Other (+) Arthritis (+) Gout of right foot (+) Podagra HI from 01/2024- Left Ventricle: The left ventricle appears enlarged. Global left ventricular systolic function is difficult to assess due to rhythm but appears reduced. EF range is estimated at 30 % -35 %. Right Ventricle: The right ventricle is normal in size. Right ventricular systolic function appears normal. Left Atrium: The left atrium appears enlarged. Left Atrium Appendage: Normal left atrial appendage, no thrombus seen. IAS: No intracardiac shunt by agitated saline injections. Mitral Valve: Mild mitral regurgitation. Tricuspid Valve: Mild tricuspid regurgitation. Overall Conclusions: Biphasic cardioversion was performed at 360 J, the patient was converted to sinus rhythm Left heart cath from 02/2024- Mild coronary artery disease Patent stent in the left circumflex coronary artery Moderately reduced global left ventricular systolic function by echocardiography Moderately elevated right-sided heart pressures and wedge pressure consistent with biventricular congestive failure Mildly reduced cardiac output/cardiac index Mild systemic hypertension Clinical information reviewed: Tobacco Allergies Meds Problems Med Hx Surg Hx Fam Hx Physical Exam Airway Mallampati: II TM distance: >3 FB Neck ROM: full Cardiovascular Rhythm: regular Rate: normal Dental Comments: Some missing teeth Pulmonary Comments: Non labored breathing Abdominal - normal exam Anesthesia Plan ASA 3 general (GETA with standard ASA monitors, arterial line discussed) The patient is not a current smoker. Education provided regarding risk of obstructive sleep apnea. intravenous induction Postoperative administration of opioids is intended. Trial extubation is planned. Anesthetic plan and risks discussed with patient. Use of blood products discussed with patient who consented to blood products. Plan discussed with attending. Additional Equipment Requests Normal [facility] HPon 10-25-2024 [facility] Electrophysiology Consult Note [place] Cardiology - [facility] Reason for visit: atrial fibrillation 10/25/24 Pt here for Afib ablation. In SR 09/18/24 Patient here for 3 mo follow [...] Determinants of Health Tobacco Use: Medium Risk (10/25/2024) Patient History Smoking Tobacco Use: Former Smokeless Tobacco Use: Never Passive Exposure: Not on file Alcohol Use: Not At Risk (05/30/2023) Received from [facility], [facility] [employer] AUDIT-C Frequency of Alcohol Consumption: Monthly or less Average Number of Drinks: 1 or 2 Frequency of Binge Drinking: Never Financial Resource Strain: Low Risk (05/30/2023) Received from [facility] Overall Financial Resource Strain (CARDIA) Difficulty of Paying Living Expenses: Not hard at all Food Insecurity: No Food Insecurity (09/27/2024) Received from [facility] Hunger Screening Within the past 12 months we worried whether our food would run out before we got money to buy more.: Never True Within the past 12 months the food we bought just didn't last and we didn't have money to get more.: Never True Transportation Needs: No Transportation Needs (05/30/2023) Received from [facility] PRAPARE - Transportation Lack of Transportation (Medical): No Lack of Transportation (Non-Medical): No Physical Activity: Sufficiently Active (05/30/2023) Received from [facility] Exercise Vital Sign Days of Exercise per Week: 7 days Minutes of Exercise per Session: 40 min Stress: No Stress Concern Present (05/30/2023) Received from [facility] of Occupational Health - Occupational Stress Questionnaire Feeling of Stress : Only a little Social Connections: Moderately Integrated (05/30/2023) Received from [facility] Social Connection and Isolation Panel [NHANES] Frequency of Communication with Friends and Family: More than three times a week Frequency of Social Gatherings with Friends and Family: Once a week Attends Congregation Services: More than 4 times per year Active Member of Clubs or Organizations: Yes Attends Club or Organization Meetings: More than 4 times per year Marital Status: Intimate Partner Violence: Unknown (12/15/2023) [place] Safety & Environment Fear of Current or Ex-Partner: Not on file Emotionally Abused: Not on file Physically Abused: Not on file Sexually Abused: Not on file Physically or Sexually Abused: Not on file Depression: Not at risk (01/09/2024) Received from [facility] PHQ-2 Patient Health Questionnaire-2 Score: 0 Housing Stability: Low Risk (05/30/2023) Received from [facility] Housing Stability Vital Sign Unable to Pay for Housing in the Last Year: No Number of Places Lived in the Last Year: 1 Unstable Housing in the Last Year: No Utilities: Not on file Health Literacy: Adequate Health Literacy (06/05/2024) Received from [facility], [employer] B1300 Health Literacy Frequency of need for help with medical in (more content not included)... Normal [facility] NURSNOTEon 10-25-2024 NURSNOTE Patient able to sit up at this time. DC order active, sign out obtained, AVS reviewed with patient/son, no questions at this time. PIV and arias removed. No bleeding or bruising at sites. Patient taken by W/C to front entrance to leave via private vehicle [facility] POCT GLUCOSE METER UNSOLICIT ED RESULTSon 10-25-2024 Glucose [Mass/Vol] 94 mg/dL Normal 70-105 [facility] Comment on above: Order Comment: Waive d Testing in the ED is performed under the ED CLIA certificate #[id number]. Result Comment: brocko kranthi Performed By: #### L [id number] ####[facility] (BEAKER)[address] [place] [address] Glucose [Mass/Vol] 84 mg/dL Normal 70-105 [facility] Comment on above: Order Comment: Waive d Testing in the ED is performed under the ED CLIA certificate #[id number]. Result Comment: mary grace serrato Performed By: #### L [id number] #### [facility] (BEAKER) [address] [place] [address] PROTIME-INRon 10-25-2024 INR IN PPP BY COAGULATION ASSAY 1.01 Normal 0.90-1.10 [facility] Comment on above: Result Comment: ACCC P RECOMMENDED INR FOR WARFARIN THERAPY CONDITION INR PROPHYLAXIS OF VENOUS THROMBOSIS 2-3 (HIGH-RISK SURGERY) TREATMENT OF VENOUS THROMBOSIS 2-3 TREATMENT OF PULMONARY EMBOLISM 2-3 PREVENTION OF SYSTEMIC EMBOLISM: 2-3 ACUTE MYOCARDIAL INFARCTION TISSUE HEART VALVES VALVULAR HEART DISEASE ATRIAL FIBRILLATION RECURRENT SYSTEMIC EMBOLISM MECHANICAL HEART VALVE 2.5-3.5 FROM: ORAL ANTICOAGULANTS. MECHANISM OF ACTION, CLINICAL EFFECTIVENESS, AND OPTIMAL THERAPEUTIC RANGE. CHEST 1995;108:231S-246S. Performed By: #### L [id number] ####[facility] (BEAKER)[address] [place] [address] PROTHROMBIN TIME (PT) IN PPP BY COAGULATION ASSAY 13.3 Seconds Normal 12.3-14.8 [facility] Comment on above: Performed By: #### L [id number] ####[facility] (VÍCTOR)[address] [place] [address] Prep for Procedureon 025 Prep for Procedure [id number] Jonathan Collado L 1955 M Date Provider Department Center 10/25/20241986-[facility] [place] [facility] Family History Problem Relation Age of Onset Coronary artery disease Mother Coronary artery disease Father Family Status - Relation Status Age at Mother Father Normal [facility] ALL CBC WITH AUTO DIFFon BASOPHILS ABSOLUTE AUTO 0.[address] [facility] Basophils/100 WBC (Bld) 0.6 % 0.2 - 2.0 % [facility] Eosinophils/100 WBC (Bld) 1.7 % 0.9 - 7.0 % [facility] Erythrocyte distribution width (RBC) [Ratio] 14.3 % 11.0 - 15.0 % [facility] Hematocrit (Bld) [Volume fraction] 40.5 % Low 42.0 - 54.0 % [facility] Hemoglobin (Bld) [Mass/Vol] 12.9 g/dL Low 14.0 - 18.0 g/dL [facility] IMMATURE GRANULOCYTES ABS AUTO 0.02 [facility] Immature granulocytes/100 WBC (Bld) 0.2 % 0.0 - 0.5 % [facility] Interpretation and review of laboratory results Abnormal [facility] LYMPHOCYTES ABSOLUTE AUTO 1.8 [facility] Lymphocytes/100 WBC (Bld) 21.4 % 20.5 - 60.0 % [facility] MCH (RBC) [Entitic mass] 29.3 pg 25. 9 - 34.0 pg [facility] MCHC (RBC) [Mass/Vol] 31.9 g/dL 29.9 - 35.2 g/dL [facility] MCV (RBC) [Entitic vol] 91.8 fL 80.0 - 94.0 fL [facility] MONOCYTES ABSOLUTE AUTO 0.5 N [facility] Monocytes/100 WBC (Bld) 6.5 % 1.7 - 12.0 % [facility] NEUTROPHILS ABSOLUTE AUTO 5.7 [facility] Neutrophils/100 WBC (Bld) 69.6 % 43.0 - 75.0 % [facility] Platelet mean volume (Bld) [Entitic vol] 9.8 fL 9.5 - 13.5 fL [facility] TBH EO # 0.1 [facility] TBH PLT 228 [facility] TB RBC 4.41 Low [facility] TB WBC 8.3 [facility] Prep for Procedureon 024 Prep for Procedure [id number] Jonathan Collado L 1955 M Date Provider Department Center 09/19/2024 1987-[facility] VASC LAB [place] [facility] Family History Problem Relation Age of Onset Coronary artery disease Mother Coronary artery disease Father Family Status - Relation Status Age at Mother Father Normal [facility] Office Visiton 09-18-2024 Follow-up visit [id number] Jonathan Collado L 1955 M Date Provider Department Center 09/18/2024 241-IVONNE [facility] Alexandra [facility] Family History Problem Relation Age of Onset Coronary artery disease Mother Coronary artery disease Father Family Status - Relation Status Age at Mother Father Level of Service:[id number] [place] OFFICE/OUTPATIENT ESTABLISHED LOW MDM 20 MIN Normal [facility] 36on 06-29-2024 36 Okay for shoulder enriquez rgery from a cardiology. He is low to intermediate risk for cardiovascular complication. May hold Eliquis 2 days prior and resume as soon as okay with surgeon. Fab Cortez, BRICK GRADER[employer] WHE[employer] REPAIRER [facility] Cardiovascular Medicine [facility] 36 Okay for shoulder enriquez rgery from a cardiology. He is low to intermediate risk for cardiovascular complication. May hold Eliquis 2 days prior and resume as soon as okay with surgeon. Normal [facility] MR SHOULDER LEFT WO IV CONTR Refugio [...] T shoulder w/o. To be done at [facility] 37on 06-06-2024 37 *Okay to stop Eliqui s 2 days prior to cataract surgery *[facility] will call you to schedule a heart ultrasound in July. Normal [facility] Office Visiton 06-06-2024 Follow-up visit [id number] Jonathan Collado 1955 M Date Provider Department Center 06/06/2024 [place]-FAB [place] Family History Problem Relation Age of Onset Coronary artery disease Mother Coronary artery disease Father Family Status - Relation Status Age at Mother Father Level of Service:16006 [place] OFFICE/OUTPATIENT ESTABLISHED MOD MDM 30 MIN Reason for Visit and Comments: Atrial Fibrillation [80] Congestive Heart Failure [127] Normal [facility] XR LUMBAR SPINE 2-3 VIEWSon 05-18-2024 XR [...] Bring in to your next appt. Normal [facility] Office Visiton 05-09-2024 Follow-up visit [id number] Jonathan Collado 1955 M Date Provider Department Center 05/09/2024 FAB PATTERSON [facility] Family History Problem Relation Age of Onset Coronary artery disease Mother Coronary artery disease Father Family Status - Relation Status Age at Mother Father Level of Service:02397 [place] OFFICE/OUTPATIENT ESTABLISHED MOD MDM 30 MIN Reason for Visit and Comments: Follow-up [[id number]] - Follow up cardioversion Normal [facility] HPon 04-30-2024 [facility] Electrophysiology Consult Note [place] Cardiology [facility] Reason for visit: atrial [...] on file Intimate Partner Violence: Unknown (12/15/2023) [place] Safety & Environment Fear of Current or [...] good judgement (more content not included)... Normal [facility] [place] 04-30-2024 NURSNOTE RN educated pt on d/ c instructions. RN encouraged pt to voice any questions or concerns. Pt verbalizes no questions or concerns at this time. Pt was wheeled off of unit with all of belongings. Normal [facility] Office Visiton 04-10-2024 Follow-up visit [id number] Jonathan Collado 1955 M Date Provider Department Center 04/10/2024 IVONNE RODRIGUEZ NATA [facility] Family History Problem Relation Age of Onset Coronary artery disease Mother Coronary artery disease Father Family Status - Relation Status Age at Mother Father Level of Service:23412 [place] OFFICE/OUTPATIENT NEW MODERATE MDM 45 MINUTES Normal [facility] [place] 03-29-2024 ANES ----- ----- Attestation signed by Gama Duncan MD at 03/29/2024 8:24 AM Gama Duncan MD, MPH, [facility], [facility], [facility] Interventional Cardiology Pager Email: [email or web address] ----- Patient: Indio Collado Procedure Information Date/Time: 03/29/24 1230 Procedure: Coronary angiography Location: [facility] ARCHITECTURAL RENDERER 2 BIPLANE / [facility] VASCULAR LAB (Cath) Providers: Gama Duncan [...] discussed with attending. Additional Equipment Requests Normal [facility] HPon 03-29-2024 ----- ----- Attestation signed by [...] documentation from me. Gama Duncan MD, MPH, [facility], [facility], [facility] Interventional Cardiology Pager Email: [email or web address] ----- H&P reviewed. The patient was [...] episodes recently. He would like to proceed. [facility] [place]igo 03-29-2024 BART RN educated pt on d/ c instructions. RN encouraged pt to voice any questions or concerns. Pt verbalizes no questions or concerns at this time. Pt was wheeled off of unit with all of belongings. [facility] 3703-08-2024 37 *Stop diltiazem *Start -metoprolol succinate 25mg daily -Entresto 24/26mg BID -Farxiga 10mg daily *Reduce lasix to 40mg daily *Follow-up lab work in 2 weeks *[facility] will call you to schedule a cardiac cath *Follow-up with the control electrician of the heart after your cath [facility] Center SUBJECTIVE Chief Complaint Patient presents [...] work at 3 jobs. He works at [employer] and eats their food when he drinks. [...] working 3 jobs. He started working a [employer] last month, this is when he noticed the weight gain. He admits to eating food at [employer] and drinking more pop that he typically does. He admits he needs to slow down with his jobs. He will likely quit [employer]. He notes that since his gastric bypass [...] Smokeless tobacco (more content not included)... Normal [facility] Office Visiton 03-08-2024 Follow-up visit [id number] Jonathan Collado 1955 M Date Provider Department Center 03/08/2024 Elliott-FAB [facility]Z [facility] Family History Problem Relation Age of Onset Coronary artery disease Mother Coronary artery disease Father Family Status - Relation Status Age at Mother Father Level of Service:44745 [place] OFFICE/OUTPATIENT ESTABLISHED HIGH MDM 40 MIN Reason for Visit and Comments: Atrial Fibrillation [80] Congestive Heart Failure [127] Hypertension [155584] Normal [facility] ANESon 02-29-2024 ANES ----- ----- Attestation signed by Ellen Taveras MD at 03/15/2024 12:59 PM I personally saw and examined the patient on the same date of service as resident/fellow Dr Bai. I agree with the documentation, except for any edits/updates below. Ellen Taveras MD ----- Patient: Indio Collado Procedure Information Date/Time: 02/29/24 1030 Procedure: Cardioversion Location: [facility] ARCHITECTURAL RENDERER HOLDING ROOM / [facility] VASCULAR [facility] (Cath) Providers: Kush Willis MD Clinical information reviewed: Allergies Physical Exam Airway Mallampati: III TM distance: >3 FB Neck ROM: full Cardiovascular Rhythm: regular Rate: normal Dental Pulmonary Abdominal Anesthesia Plan ASA 3 Anesthetic plan and risks discussed with patient. Use of blood products discussed with patient who. Plan discussed with attending. Additional Equipment Requests [facility] NURSNOTEon 02-29-2024 NURSNOTE Bedside swallow stud y completed and passed. [facility] NURSNOTE RN educated pt on d/ c instructions. RN encouraged pt to voice any questions or concerns. Pt verbalizes no questions or concerns at this time. Pt was wheeled off of unit with all of belongings. [facility] POTASSIUMon 02-29-2024 Potassium [Moles/Vol] 3.7 mmol/L Normal 3.5-5.1 [facility] Comment on above: Performed By: #### L AB114 ####[facility] (BEAKER)[address] [place] [address] 36on 02-15-2024 36 Please let him know I also ordered for potassium supplements as his potassium level was low when he was recently in the hospital and the lasix can lower this even more so the supplements are to help this. Please also have him get a BMP either the day before or morning of his appt next week. Thanks! [facility] Telephoneon 02-15-2024 Telephone [id number] Jonathan Collado 1955 M Date Provider Department Cylinder 02/15/2024 ElliottFAB CORTEZ [facility]. Family History Problem Relation Age of Onset Coronary artery disease Mother Coronary artery disease Father Family Status - Relation Status Age at Mother Father [facility] 37on 02-14-2024 37 *Increase lasix to 4 0mg twice daily *Hold fludrocortisone *Increase Xarelto to 20mg daily (you can take 2 tablets of 10mg) *Limit your fluid intake to no more than 2 liters a day *Limit your sodium intake, no more than 2500mg/daily *[facility] will call you to schedule a cardioversion *[facility] will call you to schedule a stress test and ECHO [facility] HPon 02-14-2024 HP Cardiovascular Medic ine [facility] SUBJECTIVE Chief Complaint Patient presents [...] gain. He admits to eating food at [employer] and drinking more pop that he typically does. He admits he needs to slow down with his jobs. He will likely quit [employer]. He notes that since his gastric bypass [...] CD (Cardizem (more content not included)... Normal [facility] Office Visiton 02-14-2024 Follow-up visit [id number] Jonathan Collado 1955 M Date Provider Department Center 02/14/2024 Elliott-FAB CORTEZ Family History Problem Relation Age of Onset Coronary artery disease Mother Coronary artery disease Father Family Status - Relation Status Age at Mother Father Level of Service:06621 [place] OFFICE/OUTPATIENT ESTABLISHED MOD MDM 30 MIN Reason for Visit and Comments: Atrial Fibrillation [80] Coronary Artery Disease [187] Normal [facility] Orders Onlyon 02-14-2024 Orders Only [id number] Jonathan Collado 1955 M Date Provider Department Center 02/14/2024 MILADIS MENCHACA CARD [facility] Family History Problem Relation Age of Onset Coronary artery disease Mother Coronary artery disease Father Family Status - Relation Status Age at Mother Father Normal [facility] CBC AND AUTO DIFFon 01-28-20 ABSOLUTE BASOPHIL 0.1 X10E9/L Normal 0.0-0.2 [facility] Comment on above: Performed By: #### C BCA, CMP, PINR, 86675-1, 68221-8, 25869-9, 90354-1 #### [facility] ([id number]) [address] [place] [address] 30740 ABSOLUTE NEUTROPHIL 8.5 X10E9/L High 1.5-6.6 [facility] Comment on above: Performed By: #### C BCA, CMP, PINR, 21237-4, 47912-2, 74996-4, 99037-4 #### [facility] ([id number]) [address] [place] [address] 99959 Basophils/100 WBC (Bld) 0.6 % Normal [facility] Comment on above: Performed By: #### C BCA, CMP, PINR, 08344-0, 18691-7, 13287-1, 36259-3 #### [facility] ([id number]) [address] [place] [address] 09198 Eosinophils (Bld) [#/Vol] 0.1 10*3/uL Normal 0.0-0.4 [facility] Comment on above: Performed By: #### C BCA, CMP, PINR, 63907-4, 45247-0, 50604-3, 74080-4 #### [facility] ([id number]) [address] [place] [address] 87599 Eosinophils/100 WBC (Bld) 0.5 % Normal [facility] Comment on above: Performed By: #### C BCA, CMP, PINR, 87561-9, 44980-0, 71271-1, 52310-2 #### [facility] ([id number]) [address] [place] [address] 23470 Erythrocyte distribution width (RBC) [Ratio] 16.5 % High 11.5-15.0 [facility] Comment on above: Performed By: #### C BCA, CMP, PINR, 43711-5, 47876-9, 62905-8, 18547-5 #### [facility] ([id number]) [address] [place] [address] 01234 Hematocrit (Bld) [Volume fraction] 35.7 % Low 39-49 [facility] Comment on above: Performed By: #### C BCA, CMP, PINR, 60193-7, 37586-9, 64015-7, 31042-9 #### [facility] ([id number]) [address] [place] [address] 76423 Hemoglobin (Bld) [Mass/Vol] 12.1 g/dL Low 13.0-17.0 [facility] Comment on above: Performed By: #### C BCA, CMP, PINR, 08030-2, 49117-3, 93553-0, 03132-1 #### [facility] ([id number]) [address] [place] [address] 76069 Lymphocytes (Bld) [#/Vol] 1.2 10*3/uL Normal 1.0-3.5 [facility] Comment on above: Performed By: #### C BCA, CMP, PINR, 91405-9, 72774-5, 59133-0, 27002-9 #### [facility] ([id number]) [address] [place] [address] 47003 Lymphocytes/100 WBC (Bld) 11.6 % Normal [facility] Comment on above: Performed By: #### C BCA, CMP, PINR, 31197-5, 95886-4, 56016-0, 11286-1 #### [facility] ([id number]) [address] [place] [address] 15905 MCH (RBC) [Entitic mass] 28.0 pg Normal 27-34 [facility] Comment on above: Performed By: #### C BCA, CMP, PINR, 50877-6, 31280-2, 34377-7, 17078-6 #### [facility] ([id number]) [address] [place] [address] 80914 MCHC (RBC) [Mass/Vol] 34.0 g/dL Normal 32-36 [facility] Comment on above: Performed By: #### C BCA, CMP, PINR, 37389-0, 30043-4, 66140-8, 06649-8 #### [facility] ([id number]) [address] [place] [address] 31638 MCV (RBC) [Entitic vol] 82 fL Normal 80-100 P [facility] Comment on above: Performed By: #### C BCA, CMP, PINR, 06269-2, 34117-8, 49038-6, 50142-8 #### [facility] ([id number]) [address] [place] [address] 08591 Monocytes (Bld) [#/Vol] 0.5 10*3/uL Normal 0-0.9 [facility] Comment on above: Performed By: #### C BCA, CMP, PINR, 41371-2, 69422-4, 62220-4, 20204-5 #### [facility] ([id number]) [address] [place] [address] 00266 Monocytes/100 WBC (Bld) 5.1 % Normal [facility] Comment on above: Performed By: #### C BCA, CMP, PINR, 80099-2, 90000-0, 28979-4, 91662-6 #### [facility] ([id number]) [address] [place] [address] 13438 Neutrophils/100 WBC (Bld) 82.2 % Normal [facility] Comment on above: Performed By: #### C BCA, CMP, PINR, 32976-5, 45533-8, 37699-1, 48009-0 #### [facility] ([id number]) [address] [place] [address] 60464 Platelet mean volume (Bld) [Entitic vol] 8.7 fL Normal 7-12 [facility] Comment on above: Performed By: #### C BCA, CMP, PINR, 83714-4, 05340-6, 24930-5, 53115-8 #### [facility] ([id number]) [address] [place] [address] 73416 Platelets (Bld) [#/Vol] 237 10*3/uL Normal 150-450 [facility] Comment on above: Performed By: #### C BCA, CMP, PINR, 54412-0, 91877-3, 76006-1, 07929-3 #### [facility] ([id number]) [address] [place] [address] 29626 RBC COUNT 4.33 X10E12/L Normal 4.10-5.70 [facility] Comment on above: Performed By: #### C BCA, CMP, PINR, 49155-7, 77374-6, 95243-2, 48755-8 #### [facility] ([id number]) [address] [place] [address] 15528 WBC (Bld) [#/Vol] 10.4 10*3/uL Normal 4.0-11.[address] [facility] Comment on above: Performed By: #### C BCA, CMP, PINR, 94010-0, 53018-3, 20030-3, 06732-3 #### [facility] ([id number]) [address] [place] [address] 02829 COMPREHENSIVE METABOLIC PANE Carl 01-28-2024 Albumin [Mass/Vol] 3.4 g/dL Normal 3.2-5.3 [facility] Comment on above: Performed By: #### C BCA, CMP, PINR, 08524-4, 82990-4, 96194-7, 54130-7 #### [facility] ([id number]) [address] [place] [address] 98674 ALP [Catalytic activity/Vol] 109 U/L Normal 39-130 [facility] Comment on above: Performed By: #### C BCA, CMP, PINR, 14001-7, 53638-3, 98402-9, 25680-1 #### [facility] ([id number]) [address] [place] [address] 16023 ALT [Catalytic activity/Vol] 24 U/L Normal 0-40 [facility] Comment on above: Performed By: #### C BCA, CMP, PINR, 10929-3, 57095-9, 75277-1, 15545-7 #### [facility] ([id number]) [address] [place] [address] [place] [address] Anion gap [Moles/Vol] 7 mmol/L Normal 5-15 [facility] Comment on above: Performed By: #### C BCA, CMP, PINR, 73516-1, 32494-0, 11533-0, 27460-8 #### [facility] ([id number]) [address] [place] [address] 86900 AST [Catalytic activity/Vol] 19 U/L Normal 0-41 [facility] Comment on above: Performed By: #### C BCA, CMP, PINR, 72786-8, 32650-5, 34669-3, 35324-8 #### [facility] ([id number]) [address] [place] [address] 70007 Bilirubin [Mass/Vol] 2.5 mg/dL High 0.3-1.2 [facility] Comment on above: Performed By: #### C BCA, CMP, PINR, 58800-0, 52458-7, 99815-8, 08361-3 #### [facility] ([id number]) [address] [place] [address] 19692 Calcium [Mass/Vol] 7.8 mg/dL Low 8.5-10.5 [facility] Comment on above: Performed By: #### C BCA, CMP, PINR, 07894-1, 70698-9, 35801-0, 54241-4 #### [facility] ([id number]) [address] [place] [address] 07889 Chloride [Moles/Vol] 103 mmol/L Normal 98-109 [facility] Comment on above: Performed By: #### C BCA, CMP, PINR, 90341-1, 49398-0, 33310-3, 34388-3 #### [facility] ([id number]) [address] [place] [address] 07110 CO2 [Moles/Vol] 24 mmol/L Normal 22-32 [facility] Comment on above: Performed By: #### C BCA, CMP, PINR, 26534-6, 62915-5, 88578-3, 72252-6 #### [facility] ([id number]) [address] [place] [address] 53566 Creatinine [Mass/Vol] 1.09 mg/dL Normal 0.70-1.20 [facility] Comment on above: Result Comment: METH OD TRACEABLE TO IDMS STANDARD Performed By: #### C BCA, CMP, PINR, 89895-2, 63650-8, 02141-4, 94931-7 #### [facility] ([id number]) [address] [place] [address] 66712 GFR/1.73 sq M.predicted among non-blacks MDRD (S/P/Bld) [Vol rate/Area] 74 mL/min/{1.73_m2} Normal >59 [facility] Comment on above: Result Comment: Reported eGFR is based on the CKD-EPI 2020 equation that does not use a race coefficient. Performed By: #### C BCA, CMP, PINR, 23811-9, 93874-6, 99477-6, 18663-4 #### [facility] ([id number]) [address] [place] [address] 24935 Glucose [Mass/Vol] 131 mg/dL High 65-99 [facility] Comment on above: Performed By: #### C BCA, CMP, PINR, 43053-4, 74813-9, 74190-0, 31753-5 #### [facility] ([id number]) [address] [place] [address] 58557 Potassium [Moles/Vol] 3.2 mmol/L Low 3.5-5.0 [facility] Comment on above: Performed By: #### C BCA, CMP, PINR, 17817-3, 40756-3, 24683-7, 66533-2 #### [facility] ([id number]) [address] [place] [address] 98856 Protein [Mass/Vol] 6.3 g/dL Normal 6.0-8.0 [facility] Comment on above: Performed By: #### C BCA, CMP, PINR, 30669-2, 83681-6, 21839-3, 80044-8 #### [facility] ([id number]) [address] [place] [address] 80154 Sodium [Moles/Vol] 134 mmol/L Normal 134-146 [facility] Comment on above: Performed By: #### C BCA, CMP, PINR, 90366-7, 57939-7, 36013-2, 16125-0 #### [facility] ([id number]) [address] [place] [address] 88361 Urea nitrogen [Mass/Vol] 22 mg/dL Normal 5-27 [facility] Comment on above: Performed By: #### C BCA, CMP, PINR, 65501-2, 84972-9, 41336-6, 69924-9 #### [facility] ([id number]) [address] [place] [address] 48714 MAGNESIUMon 01-28-2024 Magnesium [Mass/Vol] 1.9 mg/dL Normal 1.8-2.6 [facility] Comment on above: Performed By: #### C BCA, CMP, PINR, 16035-6, 94556-2, 57843-6, 83628-8 #### [facility] ([id number]) [address] [place] [address] 99992 Natriuretic peptide B [Mass/ Vol]on 01-28-2024 Natriuretic peptide B (Bld) [Mass/Vol] 320 pg/mL High <100.0 [facility] Comment on above: Performed By: #### C BCA, CMP, PINR, 12515-9, 42022-3, 75595-4, 70241-5 #### [facility] ([id number]) [address] [place] [address] 79386 PROTIME AND INRon 01-28-2024 INR Coag (PPP) [Relative time] 2.0 {INR} High 0.8-1.1 [facility] Comment on above: Performed By: #### C BCA, CMP, PINR, 08867-6, 96456-0, 41326-2, 78257-9 #### [facility] ([id number]) [address] [place] [address] 62752 PT Coag (PPP) [Time] 23.2 s High 9.8-13.2 [facility] Comment on above: Result Comment: NEW REFERENCE RANGE Performed By: #### C BCA, CMP, PINR, 90254-1, 22624-9, 14303-7, 99250-9 #### [facility] ([id number]) [address] [place] [address] SARS/FLU A+B/RSV by NAAT/Mol ecularon 01-28-2024 SARS/FLU [...] operators who are performing tests using either [employer] or [employer] systems and is limited to laboratories that [...] repeat. Fact Sheet for Healthcare Providers: https://www.fda.gov/media /834988/download Fact Sheet for Patients: https://www.fda.gov/media /794309/download Normal [facility] Comment on above: Performed By: #### C OVFLR #### [facility] ([id number]) [address] [place] [address] 27076 TROPONIN Ion 01-28-2024 Troponin I.cardiac [Mass/Vol] 0.03 ng/mL Normal 0.00-0.04 [facility] Comment on above: Performed By: #### C BCA, CMP, PINR, 70418-5, 14262-6, 16112-1, 58188-0 #### [facility] ([id number]) [address] [place] [address] 84872 XR CHEST 1 VWon 01-28-2024 XR CHEST 1 VW XR CHEST 1 VW XR CHEST 1 VW HISTORY: Shortness of breath COMPARISON: 07/27/2023 FINDINGS: AP portable erect film obtained. The cardiomediastinal silhouette is within normal limits. No pneumothorax or pleural effusion. No consolidation. IMPRESSION: No radiographic evidence of acute cardiopulmonary process. Approved by Resident Amado Mtichell MD on 01/28/2024 9:47 AM I, Dipak Carbajal MD have personally reviewed the image(s) and agree with and/or edited the report Finalized by Dipak Carbajal MD on 01/28/2024 10:34 AM Normal [facility] aPTT Coag (PPP) [Time]on aPTT Coag (Bld) [Time] 46 s High 26-37 [facility] Comment on above: Result Comment: NEW REFERENCE RANGE Performed By: #### C BCA, CMP, PINR, 74575-4, 33477-6, 04528-3, 36210-9 #### [facility] ([id number]) [address] [place] [address], [place] [address] No Panel Informationon 12-06 Eva Villanueva DO 12/06/2023 9:57 AM L Inj/Asp: L glenohumeral on 12/06/2023 9:55 AM Indications: pain Details: 21 G needle, posterior approach Medications: 40 mg methylPREDNISolone acetate 40 MG/ML Procedure, treatment alternatives, risks and benefits explained, specific risks discussed. [facility] XR ANKLE LEFT (MIN 3 VIEWS)o n [...] Impression: Healing fractures left ankle Interpreted by: Abelardo Babin DO Signed by: Abelardo Babin DO 01/12/23 Final result Normal [facility] XR ANKLE LEFT (MIN 3 VIEWS)o [...] new acute fracture or osseous abnormality seen. [place] seen on medial ankle correlating with Integra application. Diffuse calcifications seen proximally, most likely related to PVD, seen in previous images as well. ? Impression: Interval healing of left ankle with maintained alignment of fracture site and intact hardware without signs of loosening. Interpreted by: DO Michael Richard DO Signed by: Michael Reinoso DO 11/10/22 Final result Normal [facility] Creatinine W/GFR Point of Ca reon 11-09-2022 Creatinine [Mass/Vol] 0.87 mg/dL 0.51 - 1.19 mg/dL [facility] eGFR, POC mL/min/1.7 3m2 [facility] Comment on above: Effective Jul 26, [...] renal tubular secretion. No Panel Informationon 11-09 [facility] OPERATIVE REPORTon OPERATIVE REPORT [address] [address] OPERATIVE REPORT PATIENT NAME: INDIO COLLADO : 1955 MED REC NO: [id number] ROOM: ACCOUNT NO: [id number] ADMIT DATE: 11/09/2022 PROVIDER: Abelardo Babin DATE OF PROCEDURE: 11/09/2022 PREOPERATIVE DIAGNOSIS: Medial wound, left ankle. POSTOPERATIVE DIAGNOSIS: Medial wound, left ankle. PROCEDURE: 1. Application of split-thickness skin graft to medial ankle wound measuring 5 x 4 cm. 2. Application of negative pressure wound VAC, left ankle. SURGEON: Abelardo Babin DO ALMOND PAN FINISHER: Liss Matute DO, PGY-2 and Renato Park MD, PGY-1 ANESTHESIA: General. ESTIMATED BLOOD [...] up in my clinic in one week. ABELARDO BABIN [id number] Doc#: [id number] CC: Normal [facility] POCT Glucoseon 11-09-2022 Glucose [Mass/Vol] 93 mg/dL 74 - 100 mg/dL [facility] POCT urea (BUN)on 11-09-2022 Urea nitrogen [Mass/Vol] 12 mg/dL 8 - 26 mg/dL [facility] Basic Metab w/rfx MGon 10-22 Anion gap [Moles/Vol] 9 mmol/L Normal 9-17 [facility] Comment on above: Performed By: #### B MPX #### [address] [address] Chronometer Adjuster: Bret Vazquez MD Calcium [Mass/Vol] 8.1 mg/dL Low 8.6-10.4 [facility] Comment on above: Performed By: #### B MPX #### [address] [address] Chronometer Adjuster: Bret Vazquez MD Chloride [Moles/Vol] 102 mmol/L Normal 98-107 [facility] Comment on above: Performed By: #### B MPX #### [address] [address] Chronometer Adjuster: Bret Vazquez MD CO2 [Moles/Vol] 26 mmol/L Normal 20-31 [facility] Comment on above: Performed By: #### B MPX #### [address] [address] Chronometer Adjuster: Bret Vazquez MD Creatinine [Mass/Vol] 0.59 mg/dL Low 0.70-1.20 [facility] Comment on above: Performed By: #### B MPX #### [address] [address] Chronometer Adjuster: Bret Vazquez MD GFR/1.73 sq M.predicted among non-blacks MDRD (S/P/Bld) [Vol rate/Area] mL/min/{1.73_m2} Normal >60 [facility] Comment on above: Result Comment: Effective [...] secretion. Performed By: #### B MPX #### [address] [address] Chronometer Adjuster: Bret Vazquez MD Glucose [Mass/Vol] 93 mg/dL Normal 70-99 [facility] Comment on above: Performed By: #### B MPX #### [address] [address] Chronometer Adjuster: Bret Vazquez MD Potassium [Moles/Vol] 4.3 mmol/L Normal 3.7-5.3 [facility] Comment on above: Performed By: #### B MPX #### [address] [address] Chronometer Adjuster: Bret Vazquez MD Sodium [Moles/Vol] 137 mmol/L Normal 135-144 [facility] Comment on above: Performed By: #### B MPX #### [facility] [address] [place] [address] Chronometer Adjuster: Bret Vazquez MD Urea nitrogen [Mass/Vol] 9 mg/dL Normal 8-23 [facility] Comment on above: Performed By: #### B MPX #### [address] [address] Chronometer Adjuster: Bret Vazquez MD CBC with Diffon 10-20-2022 Abs. Basophil 0.04 k/uL Normal 0.00-0.20 [facility] Comment on above: Performed By: #### E RTPF, CK, ECENZ, VD25 #### [place] [address] Chronometer Adjuster: Bret Vazquez MD Abs.Imm.Granulocyte <0.03 Normal 0.00-0.30 [facility] Comment on above: Performed By: #### E RTPF, CK, ECENZ, VD25 #### [place] [address] Chronometer Adjuster: Bret Vazquez MD Abs.Neutrophil (Seg) 4.45 k/uL Normal 1.50-8.10 [facility] Comment on above: Performed By: #### E RTPF, CK, ECENZ, VD25 #### [place] [address] Chronometer Adjuster: Bret Vazquez MD Basophils/100 WBC (Bld) 1 % Normal 0-2 [facility] Comment on above: Performed By: #### E RTPF, CK, ECENZ, VD25 #### [place] [address] Chronometer Adjuster: Bret Vazquez MD Eosinophils (Bld) [#/Vol] 0.11 10*3/uL Normal 0.00-0.44 [facility] Comment on above: Performed By: #### E RTPF, CK, ECENZ, VD25 #### [place] [address] Chronometer Adjuster: Bret Vazquez MD Eosinophils/100 WBC (Bld) 2 % Normal 1-4 [facility] Comment on above: Performed By: #### E RTPF, CK, ECENZ, VD25 #### [address] [address] Chronometer Adjuster: Bret Vazquez MD Erythrocyte distribution width (RBC) [Ratio] 14.5 % High 11.8-14.4 [facility] Comment on above: Performed By: #### E RTPF, CK, ECENZ, VD25 #### [address] [address] Chronometer Adjuster: Bret Vazquez MD Hematocrit (Bld) [Volume fraction] 33.5 % Low 40.7-50.3 [facility] Comment on above: Performed By: #### E RTPF, CK, ECENZ, VD25 #### [address] [address] Chronometer Adjuster: Bret Vazquez MD Hemoglobin (Bld) [Mass/Vol] 10.8 g/dL Low 13.0-17.0 [facility] Comment on above: Performed By: #### E RTPF, CK, ECENZ, VD25 #### [address] [address] Chronometer Adjuster: Bret Vazquez MD Immature granulocytes/100 WBC (Bld) 0 % Normal 0 [facility] Comment on above: Performed By: #### E RTPF, CK, ECENZ, VD25 #### [address] [address] Chronometer Adjuster: Bret Vazquez MD Lymphocytes (Bld) [#/Vol] 1.28 10*3/uL Normal 1.10-3.70 [facility] Comment on above: Performed By: #### E RTPF, CK, ECENZ, VD25 #### [address] [address] Chronometer Adjuster: Bret Vazquez MD Lymphocytes/100 WBC (Bld) 19 % Low 24-43 [facility] Comment on above: Performed By: #### E RTPF, CK, ECENZ, VD25 #### [address] [address] Chronometer Adjuster: Bret Vazquez MD MCH (RBC) [Entitic mass] 29.0 pg Normal 25.2-33.5 [facility] [facility] Comment on above: Performed By: #### E RTPF, CK, ECENZ, VD25 #### [address] [address] Chronometer Adjuster: Bret Vazquez MD MCHC (RBC) [Mass/Vol] 32.2 g/dL Normal 28.4-34.8 [facility] Comment on above: Performed By: #### E RTPF, CK, ECENZ, VD25 #### [address] [address] Chronometer Adjuster: Bret Vazquez MD MCV (RBC) [Entitic vol] 90.1 fL Normal 82.6-102.9 [facility] Comment on above: Performed By: #### E RTPF, CK, ECENZ, VD25 #### [address] [address] Chronometer Adjuster: Bret Vazquez MD Monocytes (Bld) [#/Vol] 0.70 10*3/uL Normal 0.10-1.20 [facility] Comment on above: Performed By: #### E RTPF, CK, ECENZ, VD25 #### [address] [address] Chronometer Adjuster: Bret Vazquez MD Monocytes/100 WBC (Bld) 11 % Normal 3-12 [facility] Comment on above: Performed By: #### E RTPF, CK, ECENZ, VD25 #### [address] [address] Chronometer Adjuster: Bret Vazquez MD Neutrophil (Seg) 67 % High 36-65 [facility] Comment on above: Performed By: #### E RTPF, CK, ECENZ, VD25 #### [address] [address] Chronometer Adjuster: Bret Vazquez MD NRBC Automated 0.0 per 100 WBC Normal 0.0 [facility] Comment on above: Performed By: #### E RTPF, CK, ECENZ, VD25 #### [address] [address] Chronometer Adjuster: Bret Vazquez MD Platelet mean volume (Bld) [Entitic vol] 10.3 fL Normal 8.1-13.5 [facility] Comment on above: Performed By: #### E RTPF, CK, ECENZ, VD25 #### [address] [address] Chronometer Adjuster: Bret Vazquez MD Platelets (Bld) [#/Vol] 236 10*3/uL Normal 138-453 [facility] Comment on above: Performed By: #### E RTPF, CK, ECENZ, VD25 #### [address] [address] Chronometer Adjuster: Bret Vazquez MD RBC (Bld) [#/Vol] 3.72 10*6/uL Low 4.21-5.77 [facility] Comment on above: Performed By: #### E RTPF, CK, ECENZ, VD25 #### [address] [address] Chronometer Adjuster: Bret Vazquez MD RBC morphology finding Nom (Bld) ANISOCYTOSIS PRESENT Normal [facility] Comment on above: Performed By: #### E RTPF, CK, ECENZ, VD25 #### [address] [address] Chronometer Adjuster: Bret Vazquez MD WBC (Bld) [#/Vol] 6.6 10*3/uL Normal 3.5-11.3 [facility] Comment on above: Performed By: #### E RTPF, CK, ECENZ, VD25 #### [address] [address] Chronometer Adjuster: Bret Vazquez MD Comp Metabolic Pr/rfx MGon 1 12-21-2021 Albumin [Mass/Vol] 2.6 g/dL Low 3.5-5.2 [facility] Comment on above: Performed By: #### E RTPF, CK, ECENZ, VD25 #### [address] [address] Chronometer Adjuster: Bret Vazquez MD Albumin/Glob Ratio 1.2 Normal 1.0-2.5 [facility] Comment on above: Performed By: #### E RTPF, CK, ECENZ, VD25 #### [address] [address] Chronometer Adjuster: Bret Vazquez MD Alkaline Phos 104 U/L Normal 40-129 [facility] Comment on above: Performed By: #### E RTPF, CK, ECENZ, VD25 #### [address] [address] Chronometer Adjuster: Bret Vazquez MD ALT [Catalytic activity/Vol] 7 U/L Normal 5-41 [facility] Comment on above: Performed By: #### E RTPF, CK, ECENZ, VD25 #### [address] [address] Chronometer Adjuster: Bret Vazquez MD Anion gap [Moles/Vol] 7 mmol/L Low 9-17 [facility] Comment on above: Performed By: #### E RTPF, CK, ECENZ, VD25 #### [address] [address] Chronometer Adjuster: Bret Vazquez MD AST [Catalytic activity/Vol] 13 U/L Normal <40 [facility] Comment on above: Performed By: #### E RTPF, CK, ECENZ, VD25 #### [address] [address] Chronometer Adjuster: Bret Vazquez MD Bilirubin [Mass/Vol] 0.9 mg/dL Normal 0.3-1.2 [facility] Comment on above: Performed By: #### E RTPF, CK, ECENZ, VD25 #### [address] [address] Chronometer Adjuster: Bret Vazquez MD Calcium [Mass/Vol] 8.0 mg/dL Low 8.6-10.4 [facility] Comment on above: Performed By: #### E RTPF, CK, ECENZ, VD25 #### [address] [address] Chronometer Adjuster: Bret Vazquez MD Chloride [Moles/Vol] 103 mmol/L Normal 98-107 [facility] Comment on above: Performed By: #### E RTPF, CK, ECENZ, VD25 #### [address] [address] Chronometer Adjuster: Bret Vazquez MD CO2 [Moles/Vol] 25 mmol/L Normal 20-31 [facility] Comment on above: Performed By: #### E RTPF, CK, ECENZ, VD25 #### [address] [address] Chronometer Adjuster: Bret Vazquez MD Creatinine [Mass/Vol] 0.67 mg/dL Low 0.70-1.20 [facility] Comment on above: Performed By: #### E RTPF, CK, ECENZ, VD25 #### [address] [place] [address] Chronometer Adjuster: Bret Vazquez MD GFR/1.73 sq M.predicted among non-blacks MDRD (S/P/Bld) [Vol rate/Area] mL/min/{1.73_m2} Normal >60 [facility] Comment on above: Result Comment: Effective [...] #### E RTPF, CK, ECENZ, VD25 #### [address] [address] Chronometer Adjuster: Bret Vazquez MD Glucose [Mass/Vol] 99 mg/dL Normal 70-99 [facility] Comment on above: Performed By: #### E RTPF, CK, ECENZ, VD25 #### [address] [address] Chronometer Adjuster: Bret Vazquez MD Potassium [Moles/Vol] 4.3 mmol/L Normal 3.7-5.3 [facility] Comment on above: Performed By: #### E RTPF, CK, ECENZ, VD25 #### [facility] [address] [place] [address] Chronometer Adjuster: Bret Vazquez MD Protein [Mass/Vol] 4.7 g/dL Low 6.4-8.3 [facility] Comment on above: Performed By: #### E RTPF, CK, ECENZ, VD25 #### [facility] [address] [place] [address] Chronometer Adjuster: Bret Vazquez MD Sodium [Moles/Vol] 135 mmol/L Normal 135-144 [facility] Comment on above: Performed By: #### E RTPF, CK, ECENZ, VD25 #### [facility] [address] [place], [place] [id number] Chronometer Adjuster: Bret Vazquez MD Urea nitrogen [Mass/Vol] 11 mg/dL Normal 8-23 [facility] Comment on above: Performed By: #### E RTPF, CK, ECENZ, VD25 #### [facility] [address] [place], [place] [id number] Chronometer Adjuster: Bret Vazquez MD XR ANKLE LEFT (MIN [...] Peter Mosquera DO 10/20/22 Final result Normal [facility] FLUORO FOR SURGICAL PROCEDUR ESon 10-19-2022 FLUORO FOR SURGICAL PROCEDURES Radiology exam is complete. No Radiologist dictation. Please follow up with ordering provider. Final result Normal [facility] OPERATIVE REPORTon OPERATIVE REPORT [facility] [address] [place] [address] OPERATIVE REPORT PATIENT NAME: INDIO COLLADO : 1955 MED REC NO: [id number] ROOM: 0238 ACCOUNT NO: [id number] ADMIT DATE: 10/19/2022 PROVIDER: Abelardo Babin DATE OF PROCEDURE: 10/19/2022 PREOPERATIVE DIAGNOSIS: [...] ankle with independent interpretation and imaging. SURGEON: Abelardo Bbain DO ASSISTANTS: Benson Rausch DO, PGY-5 and [...] tissue from the fracture and then using [id number] clamps as well as K-wires, achieved reduction. [...] Integra glycosami (more content not included)... Normal [facility] XR ANKLE LEFT (MIN 3 VIEWS)o [...] Dallin Pineda MD 10/19/22 Final result Normal [facility] Aerobic Cultureon 09-27-2022 Aerobic Culture ORGANISM: [...] RESISTANT TO ALL B-LACTAM DRUGS. PERFORMED BY: [address] [place] [address] PATHOLOGIST HAZARDOUS WASTE MANAGEMENT SPECIALIST XU TAPIA M.D. [facility] Comment on above: Performed By: #### G LUBRIAN #### Point of Care testing , Anaerobic cultureOrdered By: Molly Rivera on 09-27-2022 Bacteria identified Anaer cx Nom (Unsp spec) [facility] Bacteria identified Aer cx N om (Unsp spec)Ordered By: Molly Rivera on 09-27-2022 Aerobic Culture Enterococcus faecalis [facility] Basic Metabolic Panelon 12-0 Anion gap [Moles/Vol] 10.1 mmol/L Normal 6.0-15.0 [facility] Comment on above: Performed By: #### C MP, CBC, PAB #### [facility] [address] Calcium [Mass/Vol] 8.0 mg/dL Low 8.2-10.2 [facility] Comment on above: Performed By: #### C MP, CBC, PAB #### [facility] [address] Chloride [Moles/Vol] 105 mmol/L Normal 95-114 [facility] Comment on above: Performed By: #### C MP, CBC, PAB #### [facility] [address] CO2 [Moles/Vol] 27.1 mmol/L Normal 22.0-30.[address] [facility] Comment on above: Performed By: #### C MP, CBC, PAB #### [facility] [address] Creatinine [Mass/Vol] 0.72 mg/dL Normal 0.64-1.27 [facility] Comment on above: Performed By: #### C MP, CBC, PAB #### [facility] [address] [place] [address] [place] Creatinine Clr Calc Pharmacy 108.46 [facility] Comment on above: Result Comment: PERF ORMED BY: [place] [address] PATHOLOGIST HAZARDOUS WASTE MANAGEMENT SPECIALIST JIANLAN SUN M.D. Performed By: #### C MP, CBC, PAB #### [facility] [address] [place] [address] [place] Estimated GFR ( Marie > 60 [facility] Comment on above: Result Comment: GFR estimated reference range: According to KDOQI guidelines, <60 ml/min/1.73m2 is sufficient to diagnose a patient with chronic kidney disease. Performed By: #### C MP, CBC, PAB #### [facility] [address] [place] [address] [place] Estimated GFR (Non- Am > 60 [facility] Comment on above: Performed By: #### C MP, CBC, PAB #### [address] Glucose [Mass/Vol] 90 mg/dL Normal 70-100 [facility] Comment on above: Result Comment: [place] om Glucose Reference Range is dependent on time and content of last meal. Glucose of more than 200 mg/dL in a nonstressed, ambulatory subject supports the diagnosis of Diabetes Mellitus. ADA recommended reference range Performed By: #### C MP, CBC, PAB #### [address] Potassium [Moles/Vol] 4.2 mmol/L Normal 3.5-5.1 [facility] Comment on above: Performed By: #### C MP, CBC, PAB #### [facility] [address] [place] [address] [place] Sodium [Moles/Vol] 138 mmol/L Normal 136-146 [facility] Comment on above: Performed By: #### C MP, CBC, PAB #### [facility] [address] [place] [address] [place] Urea nitrogen [Mass/Vol] 9 mg/dL Normal 9-23 [facility] Comment on above: Performed By: #### C MP, CBC, PAB #### [facility] [address] [place] [address] [place] Basophils Auto (Bld) [#/Vol] Ordered By: Gordon Smith on 09-27-2022 Basophils (Bld) [#/Vol] 0.1 10*3/uL 0.0-0.2 [facility] Basophils/100 WBC Auto (Bld) Ordered By: Gordon Smith on 09-27-2022 Basophils/100 WBC (Bld) 1.0 % . [facility] Complete Blood Count Auto Di ffon 09-27-2022 Basophils (Bld) [#/Vol] 0.1 10*3/uL Normal 0.0-0.2 [facility] Comment on above: Result Comment: PERF ORMED BY: [place] [address] PATHOLOGIST HAZARDOUS WASTE MANAGEMENT SPECIALIST XU TAPIA M.D. Performed By: #### C MP, CBC, PAB #### [address] Basophils/100 WBC (Bld) 1.0 % Normal . [facility] Comment on above: Performed By: #### C MP, CBC, PAB #### [facility] [address] [place] [address] Eosinophils (Bld) [#/Vol] 0.3 10*3/uL Normal 0.0-0.45 [facility] Comment on above: Performed By: #### C MP, CBC, PAB #### [address] Eosinophils/100 WBC (Bld) 4.8 % Normal . [facility] Comment on above: Performed By: #### C MP, CBC, PAB #### [facility] [address] [place] [address] Erythrocyte distribution width (RBC) [Ratio] 15.8 % High 12.0-14.8 [facility] Comment on above: Performed By: #### C MP, CBC, PAB #### [facility] [address] [place] [address] Hematocrit (Bld) [Volume fraction] 29.5 % Low 38.8-50.0 [facility] Comment on above: Performed By: #### C MP, CBC, PAB #### [facility] [address] [place] [address] Hemoglobin (Bld) [Mass/Vol] 9.5 g/dL Low 13.0-17.0 [facility] Comment on above: Performed By: #### C MP, CBC, PAB #### [address] Lymphocytes (Bld) [#/Vol] 1.1 10*3/uL Normal 1.00-4.8 [facility] Comment on above: Performed By: #### C MP, CBC, PAB #### [facility] [address] Lymphocytes/100 WBC (Bld) 17.0 % Normal . [facility] Comment on above: Performed By: #### C MP, CBC, PAB #### [address] MCH (RBC) [Entitic mass] 30.4 pg Normal 27.5-35.2 [facility] Comment on above: Performed By: #### C MP, CBC, PAB #### [address] MCV (RBC) [Entitic vol] 94.2 fL Normal 83.5-101 [facility] Comment on above: Performed By: #### C MP, CBC, PAB #### [address] Mean Corpuscular HGB Conc 32.3 g/dL Low 32.5-35.6 [facility] Comment on above: Performed By: #### C MP, CBC, PAB #### [address] Monocytes (Bld) [#/Vol] 0.6 10*3/uL Normal 0.0-0.8 [facility] Comment on above: Performed By: #### C MP, CBC, PAB #### [address] Monocytes/100 WBC (Bld) 9.6 % Normal . [facility] Comment on above: Performed By: #### C MP, CBC, PAB #### [address] Neutrophils (Bld) [#/Vol] 4.3 10*3/uL Normal 1.8-7.7 [facility] Comment on above: Performed By: #### C MP, CBC, PAB #### [facility] [address] Neutrophils/100 WBC (Bld) 67.6 % Normal . [facility] Comment on above: Performed By: #### C MP, CBC, PAB #### [facility] [address] NRBC% 0.0 /100{WBC} Normal 0-0.5 [facility] Comment on above: Performed By: #### C MP, CBC, PAB #### [facility] [address] Platelet mean volume (Bld) [Entitic vol] 8.2 fL Normal 6.6-10.1 [facility] Comment on above: Performed By: #### C MP, CBC, PAB #### [facility] [address] Platelets (Bld) [#/Vol] 352 10*3/uL Normal 150-450 [facility] Comment on above: Performed By: #### C MP, CBC, PAB #### [address] RBC (Bld) [#/Vol] 3.13 10*6/uL Low 3.90-5.60 [facility] Comment on above: Performed By: #### C MP, CBC, PAB #### [facility] [address] WBC (Bld) [#/Vol] 6.3 10*3/uL Normal 4.1-10.5 [facility] Comment on above: Performed By: #### C MP, CBC, PAB #### [place] [address] [place] Creatinine and Glomerular fi ltration rate.predicted panel (S/P/Bld)Ordered By: Gordon Smith on 09-27-2022 Creatinine [Mass/Vol] 0.72 mg/dL 0.64-1.27 [facility] Eosinophils Auto (Bld) [#/Vo l]Ordered By: Gordon Smith on 09-27-2022 Eosinophils (Bld) [#/Vol] 0.3 10*3/uL 0.0-0.45 [facility] Eosinophils/100 WBC Auto (Bl d)Ordered By: Gordon Smith on 09-27-2022 Eosinophils/100 WBC (Bld) 4.8 % . [facility] Erythrocyte distribution wid th Auto (RBC) [Ratio]Ordered By: Gordon Smith on 09-27-2022 Erythrocyte distribution width (RBC) [Ratio] 15.8 % 12.0-14.8 [facility] Estimated glomerular filtrat ion rate (GFR) non- AmericanOrdered By: Gordon Smith on 09-27-2022 GFR/1.73 sq M.predicted among non-blacks MDRD (S/P/Bld) [Vol rate/Area] > 60 mL/Min [facility] Gram stain for investigation of transfusion reactionOrdered By: Molly Rivera on 09-27-2022 Microscopic observation Gram stain Nom (Unsp spec) [facility] Hematocrit Auto (Bld) [Volum e fraction]Ordered By: Gordon Smith on 09-27-2022 Hematocrit (Bld) [Volume fraction] 29.5 % 38.8-50.0 [facility] Hemoglobin [Mass/volume] in BloodOrdered By: Gordon Smith on 09-27-2022 Hemoglobin (Bld) [Mass/Vol] 9.5 g/dL 13.0-17.0 [facility] Leukocytes [#/volume] correc tyree for nucleated erythrocytes in Blood by Automated counOrdered By: Gordon Smith on 09-27-2022 WBC corrected for nucl RBC Auto (Bld) [#/Vol] 6.3 10*3/uL 4.1-10.5 [facility] Lymphocytes Auto (Bld) [#/Vo l]Ordered By: Gordon Smith on 09-27-2022 Lymphocytes (Bld) [#/Vol] 1.1 10*3/uL 1.00-4.8 [facility] Lymphocytes/100 WBC Auto (Bl d)Ordered By: Gordon Smith on 09-27-2022 Lymphocytes/100 WBC (Bld) 17.0 % . [facility] MCH Auto (RBC) [Entitic mass ]Ordered By: Gordon Smith on 09-27-2022 MCH (RBC) [Entitic mass] 30.4 pg 27.5-35.2 [facility] MCHC Auto (RBC) [Mass/Vol]Or dered By: Gordon Smith on 09-27-2022 MCHC (RBC) [Mass/Vol] 32.3 g/dL 32.5-35.6 [facility] MCV Auto (RBC) [Entitic vol] Ordered By: Gordon Smith on 09-27-2022 MCV (RBC) [Entitic vol] 94.2 fL 83.5-101 [facility] Monocytes Auto (Bld) [#/Vol] Ordered By: Gordon Smith on 09-27-2022 Monocytes (Bld) [#/Vol] 0.6 10*3/uL 0.0-0.8 [facility] Monocytes/100 WBC Auto (Bld) Ordered By: Gordon Smith on 09-27-2022 Monocytes/100 WBC (Bld) 9.6 % . [facility] Neutrophils Auto (Bld) [#/Vo l]Ordered By: Gordon Smith on 09-27-2022 Neutrophils (Bld) [#/Vol] 4.3 10*3/uL 1.8-7.7 [facility] Neutrophils/100 WBC Auto (Bl d)Ordered By: Gordon Smith on 09-27-2022 Neutrophils/100 WBC (Bld) 67.6 % . [facility] No Panel InformationOrdered By: Gordon Smith on 09-27-2022 Estimated GFR () > 60 mL/Min [facility] Comment on above: GFR estimated refere nce range: According to KDOQI guidelines, <60 ml/min/1.73m2 is sufficient to diagnose a patient with chronic kidney disease. Pharmacy Creatinine Clearance (Chem 108.46 [facility] Nucleated erythrocytes [Pres ence] in Blood by Automated countOrdered By: Gordon Smith on 09-27-2022 Nucleated RBC Auto Ql (Bld) 0.0 /100{WBC} 0-0.5 [facility] Platelet mean volume Auto (B ld) [Entitic vol]Ordered By: Gordon Smith on 09-27-2022 Platelet mean volume (Bld) [Entitic vol] 8.2 fL 6.6-10.1 [facility] Platelets Auto (Bld) [#/Vol] Ordered By: Gordon Smith on 09-27-2022 Platelets (Bld) [#/Vol] 352 10*3/uL 150-450 [facility] RBC Auto (Bld) [#/Vol]Ordere d By: Gordon Smith on 09-27-2022 RBC (Bld) [#/Vol] 3.13 10*6/uL 3.90-5.60 [facility] Serum or plasma anion gap de terminationOrdered By: Gordon Smith on 09-27-2022 Anion gap [Moles/Vol] 10.1 mmol/L 6.0-15.0 [facility] Serum or plasma calcium berhane urement (mass/volume)Ordered By: Gordon Smith on 09-27-2022 Calcium [Mass/Vol] 8.0 mg/dL 8.2-10.2 [facility] Serum or plasma chloride elle surement (moles/volume)Ordered By: Gordon Smith on 09-27-2022 Chloride [Moles/Vol] 105 mmol/L 95-114 [facility] Serum or plasma glucose berhane urement (mass/volume)Ordered By: Gordon Smith on 09-27-2022 Glucose [Mass/Vol] 90 mg/dL 70-100 [facility] Comment on above: ADA recommended refe rence rangeRandom Glucose Reference Range is dependent on time and content of last meal. Glucose of more than 200 mg/dL in a nonstressed, ambulatory subject supports the diagnosis of Diabetes Mellitus. Serum or plasma potassium me asurement (moles/volume)Ordered By: Gordon Smith on 09-27-2022 Potassium [Moles/Vol] 4.2 mmol/L 3.5-5.1 [facility] Serum or plasma sodium measu rement (moles/volume)Ordered By: Gordon Smith on 09-27-2022 Sodium [Moles/Vol] 138 mmol/L 136-146 [facility] Serum or plasma total carbon dioxide measurement (moles/volume)Ordered By: Gordon Smith on 09-27-2022 CO2 [Moles/Vol] 27.1 mmol/L 22.0-30.[address] [facility] Serum or plasma urea nitroge n measurement (mass/volume)Ordered By: Gordon Smith on 09-27-2022 Urea nitrogen [Mass/Vol] 9 mg/dL 9-23 [facility] US venous duplex LE BIon US venous duplex LE BI [facility] [place] [address] Ultrasound Report Signed Patient: Indio Collado MR#: [id number] 8 : 1955 Acct:[id number] Age/Sex: 67 / M ADM Date: 09/11/22 Loc: Room: [address] [place] [address] Type: ADM IN Attending Dr: Gordon Smith [...] Chirag Hatch MD09/27/2022 2:17 PM Dictation Location: [place] [address] Tech: Mirna Sharma Transcribed By: PWS 09/27/22 141 Dictated By: Chirag Hatch MD 09/27/22 141 Signed By: 09/27/22 141 Normal [facility] WBC Auto (Bld) [#/Vol]Ordere d By: Gordon Smith on 09-27-2022 WBC (Bld) [#/Vol] 6.3 10*3/uL 4.1-10.5 [facility] Complete Blood Count Auto Di ffon 09-26-2022 Basophils (Bld) [#/Vol] 0.1 10*3/uL Normal 0.0-0.2 [facility] Comment on above: Result Comment: PERF ORMED BY: [facility] [place] [address] PATHOLOGIST HAZARDOUS WASTE MANAGEMENT SPECIALIST XU TAPIA M.D. Performed By: #### G LULS #### Point of Care testing , Basophils/100 WBC (Bld) 2.1 % Normal . [facility] Comment on above: Performed By: #### G LULS #### Point of Care testing , Eosinophils (Bld) [#/Vol] 0.4 10*3/uL Normal 0.0-0.45 [facility] Comment on above: Performed By: #### G LULS #### Point of Care testing , Eosinophils/100 WBC (Bld) 7.6 % Normal . [facility] Comment on above: Performed By: #### G LULS #### Point of Care testing , Erythrocyte distribution width (RBC) [Ratio] 15.9 % High 12.0-14.8 [facility] Comment on above: Performed By: #### G LULS #### Point of Care testing , Hematocrit (Bld) [Volume fraction] 28.6 % Low 38.8-50.0 [facility] Comment on above: Performed By: #### G LULS #### Point of Care testing , Hemoglobin (Bld) [Mass/Vol] 9.4 g/dL Low 13.0-17.0 [facility] Comment on above: Performed By: #### G LULS #### Point of Care testing , Lymphocytes (Bld) [#/Vol] 1.2 10*3/uL Normal 1.00-4.8 [facility] Comment on above: Performed By: #### G LULS #### Point of Care testing , Lymphocytes/100 WBC (Bld) 23.5 % Normal . [facility] Comment on above: Performed By: #### G LULS #### Point of Care testing , MCH (RBC) [Entitic mass] 30.9 pg Normal 27.5-35.2 [facility] Comment on above: Performed By: #### G USMAN #### Point of Care testing , MCV (RBC) [Entitic vol] 93.9 fL Normal 83.5-101 [facility] Comment on above: Performed By: #### G USMAN #### Point of Care testing , Mean Corpuscular HGB Conc 32.9 g/dL Normal 32.5-35.6 [facility] Comment on above: Performed By: #### G HUGOLS #### Point of Care testing , Monocytes (Bld) [#/Vol] 0.5 10*3/uL Normal 0.0-0.8 [facility] Comment on above: Performed By: #### G HUGOLS #### Point of Care testing , Monocytes/100 WBC (Bld) 10.0 % Normal . [facility] Comment on above: Performed By: #### G HUGOLS #### Point of Care testing , Neutrophils (Bld) [#/Vol] 2.8 10*3/uL Normal 1.8-7.7 [facility] Comment on above: Performed By: #### G USMAN #### Point of Care testing , Neutrophils/100 WBC (Bld) 56.8 % Normal . [facility] Comment on above: Performed By: #### G USMAN #### Point of Care testing , NRBC% 0.2 /100{WBC} Normal 0-0.5 [facility] Comment on above: Performed By: #### G USMAN #### Point of Care testing , Platelet mean volume (Bld) [Entitic vol] 7.9 fL Normal 6.6-10.1 [facility] Comment on above: Performed By: #### Bethel MARY #### Point of Care testing , Platelets (Bld) [#/Vol] 371 10*3/uL Normal 150-450 [facility] Comment on above: Performed By: #### G USMAN #### Point of Care testing , RBC (Bld) [#/Vol] 3.04 10*6/uL Low 3.90-5.60 [facility] Comment on above: Performed By: #### G HUGOLS #### Point of Care testing , WBC (Bld) [#/Vol] 4.9 10*3/uL Normal 4.1-10.5 [facility] Comment on above: Performed By: #### G HUGOLS #### Point of Care testing , Complete Blood Count Auto Di ffon 09-23-2022 Basophils (Bld) [#/Vol] 0.1 10*3/uL Normal 0.0-0.2 [facility] Comment on above: Result Comment: PERF ORMED BY: [facility] [address] [place] [address] PATHOLOGIST [employer]NAG[employer] SPECIALIST XU TAPIA M.D. Performed By: #### G HUGOLS #### Point of Care testing , Basophils/100 WBC (Bld) 1.3 % Normal . [facility] Comment on above: Performed By: #### G HUGOLS #### Point of Care testing , Eosinophils (Bld) [#/Vol] 0.3 10*3/uL Normal 0.0-0.45 [facility] Comment on above: Performed By: #### G HUGOLS #### Point of Care testing , Eosinophils/100 WBC (Bld) 4.7 % Normal . [facility] Comment on above: Performed By: #### G HUGOLS #### Point of Care testing , Erythrocyte distribution width (RBC) [Ratio] 16.1 % High 12.0-14.8 [facility] Comment on above: Performed By: #### G HUGOLS #### Point of Care testing , Hematocrit (Bld) [Volume fraction] 27.6 % Low 38.8-50.0 [facility] Comment on above: Performed By: #### G HUGOLS #### Point of Care testing , Hemoglobin (Bld) [Mass/Vol] 9.0 g/dL Low 13.0-17.0 [facility] Comment on above: Performed By: #### G HUGOLS #### Point of Care testing , Lymphocytes (Bld) [#/Vol] 1.4 10*3/uL Normal 1.00-4.8 [facility] Comment on above: Performed By: #### G LULS #### Point of Care testing , Lymphocytes/100 WBC (Bld) 20.0 % Normal . [facility] Comment on above: Performed By: #### G LULS #### Point of Care testing , MCH (RBC) [Entitic mass] 31.0 pg Normal 27.5-35.2 [facility] Comment on above: Performed By: #### G LULS #### Point of Care testing , MCV (RBC) [Entitic vol] 95.3 fL Normal 83.5-101 [facility] Comment on above: Performed By: #### G LULS #### Point of Care testing , Mean Corpuscular HGB Conc 32.5 g/dL Normal 32.5-35.6 [facility] Comment on above: Performed By: #### G LULS #### Point of Care testing , Monocytes (Bld) [#/Vol] 0.6 10*3/uL Normal 0.0-0.8 [facility] Comment on above: Performed By: #### G LULS #### Point of Care testing , Monocytes/100 WBC (Bld) 8.8 % Normal . [facility] Comment on above: Performed By: #### G LULS #### Point of Care testing , Neutrophils (Bld) [#/Vol] 4.6 10*3/uL Normal 1.8-7.7 [facility] Comment on above: Performed By: #### G LULS #### Point of Care testing , Neutrophils/100 WBC (Bld) 65.2 % Normal . [facility] Comment on above: Performed By: #### G LULS #### Point of Care testing , NRBC% 0.0 /100{WBC} Normal 0-0.5 [facility] Comment on above: Performed By: #### G LULS #### Point of Care testing , Platelet mean volume (Bld) [Entitic vol] 8.1 fL Normal 6.6-10.1 [facility] Comment on above: Performed By: #### G LULS #### Point of Care testing , Platelets (Bld) [#/Vol] 362 10*3/uL Normal 150-450 [facility] Comment on above: Performed By: #### G LULS #### Point of Care testing , RBC (Bld) [#/Vol] 2.90 10*6/uL Low 3.90-5.60 [facility] Comment on above: Performed By: #### G LULS #### Point of Care testing , WBC (Bld) [#/Vol] 7.0 10*3/uL Normal 4.1-10.5 [facility] Comment on above: Performed By: #### G LULS #### Point of Care testing , Complete Blood Count Auto Di ffon 09-22-2022 Basophils (Bld) [#/Vol] 0.1 10*3/uL Normal 0.0-0.2 [facility] Comment on above: Result Comment: PERF ORMED BY: [facility] [address] [address] PATHOLOGIST [employer]NA[employer] SPECIALIST XU TAPIA M.D. Performed By: #### G HUGOLS #### Point of Care testing , Basophils/100 WBC (Bld) 1.3 % Normal . [facility] Comment on above: Performed By: #### G HUGOLS #### Point of Care testing , Eosinophils (Bld) [#/Vol] 0.3 10*3/uL Normal 0.0-0.45 [facility] Comment on above: Performed By: #### G LULS #### Point of Care testing , Eosinophils/100 WBC (Bld) 4.4 % Normal . [facility] Comment on above: Performed By: #### G HUGOLS #### Point of Care testing , Erythrocyte distribution width (RBC) [Ratio] 16.1 % High 12.0-14.8 [facility] Comment on above: Performed By: #### G LULS #### Point of Care testing , Hematocrit (Bld) [Volume fraction] 26.6 % Low 38.8-50.0 [facility] Comment on above: Performed By: #### G LULS #### Point of Care testing , Hemoglobin (Bld) [Mass/Vol] 8.7 g/dL Low 13.0-17.0 [facility] Comment on above: Performed By: #### G LULS #### Point of Care testing , Lymphocytes (Bld) [#/Vol] 1.3 10*3/uL Normal 1.00-4.8 [facility] Comment on above: Performed By: #### G LULS #### Point of Care testing , Lymphocytes/100 WBC (Bld) 22.0 % Normal . [facility] Comment on above: Performed By: #### G HUGOLS #### Point of Care testing , MCH (RBC) [Entitic mass] 31.1 pg Normal 27.5-35.2 [facility] Comment on above: Performed By: #### G HUGOLS #### Point of Care testing , MCV (RBC) [Entitic vol] 95.0 fL Normal 83.5-101 [facility] Comment on above: Performed By: #### G HUGOLS #### Point of Care testing , Mean Corpuscular HGB Conc 32.8 g/dL Normal 32.5-35.6 [facility] Comment on above: Performed By: #### G HUGOLS #### Point of Care testing , Monocytes (Bld) [#/Vol] 0.5 10*3/uL Normal 0.0-0.8 [facility] Comment on above: Performed By: #### G HUGOLS #### Point of Care testing , Monocytes/100 WBC (Bld) 8.7 % Normal . [facility] Comment on above: Performed By: #### G HUGOLS #### Point of Care testing , Neutrophils (Bld) [#/Vol] 3.9 10*3/uL Normal 1.8-7.7 [facility] Comment on above: Performed By: #### G LULS #### Point of Care testing , Neutrophils/100 WBC (Bld) 63.6 % Normal . [facility] Comment on above: Performed By: #### G LULS #### Point of Care testing , NRBC% 0.2 /100{WBC} Normal 0-0.5 [facility] Comment on above: Performed By: #### G HUGOLS #### Point of Care testing , Platelet mean volume (Bld) [Entitic vol] 8.5 fL Normal 6.6-10.1 [facility] Comment on above: Performed By: #### G USMAN #### Point of Care testing , Platelets (Bld) [#/Vol] 339 10*3/uL Normal 150-450 [facility] Comment on above: Performed By: #### G USMAN #### Point of Care testing , RBC (Bld) [#/Vol] 2.80 10*6/uL Low 3.90-5.60 [facility] Comment on above: Performed By: #### G HUGOLS #### Point of Care testing , WBC (Bld) [#/Vol] 6.1 10*3/uL Normal 4.1-10.5 [facility] Comment on above: Performed By: #### G USMAN #### Point of Care testing , Basic Metabolic Panelon 11-2 Anion gap [Moles/Vol] 9.4 mmol/L Normal 6.0-15.0 [facility] Comment on above: Performed By: #### C MP, CBC, PAB #### [facility] [address] [place] [address] [place] Calcium [Mass/Vol] 7.9 mg/dL Low 8.2-10.2 [facility] Comment on above: Performed By: #### C MP, CBC, PAB #### [facility] [address] [place] [address] [place] Chloride [Moles/Vol] 104 mmol/L Normal 95-114 [facility] Comment on above: Performed By: #### C MP, CBC, PAB #### [facility] [address] [place] [address] [place] CO2 [Moles/Vol] 29.0 mmol/L Normal 22.0-30.[address] [facility] Comment on above: Performed By: #### C MP, CBC, PAB #### [facility] [address] Creatinine [Mass/Vol] 0.77 mg/dL Normal 0.64-1.27 [facility] Comment on above: Performed By: #### C MP, CBC, PAB #### [facility] [address] Creatinine Clr Calc Pharmacy 111.64 [facility] Comment on above: Result Comment: PERF ORMED BY: [place] [address] PATHOLOGIST HA[employer]ARD[employer] MANAGEMENT SPECIALIST XU TAPIA M.D. Performed By: #### C MP, CBC, PAB #### [address] Estimated GFR ( Marie > 60 [facility] Comment on above: Result Comment: GFR estimated reference range: According to KDOQI guidelines, <60 ml/min/1.73m2 is sufficient to diagnose a patient with chronic kidney disease. Performed By: #### C MP, CBC, PAB #### [place] [address] [place] Estimated GFR (Non- Am > 60 [facility] Comment on above: Performed By: #### C MP, CBC, PAB #### [address] Glucose [Mass/Vol] 81 mg/dL Normal 70-100 [facility] Comment on above: Result Comment: [place] Glucose Reference Range is dependent on time and content of last meal. Glucose of more than 200 mg/dL in a nonstressed, ambulatory subject supports the diagnosis of Diabetes Mellitus. ADA recommended reference range Performed By: #### C MP, CBC, PAB #### [address] Potassium [Moles/Vol] 4.4 mmol/L Normal 3.5-5.1 [facility] Comment on above: Performed By: #### C MP, CBC, PAB #### [place] [address] [place] Sodium [Moles/Vol] 138 mmol/L Normal 136-146 [facility] Comment on above: Performed By: #### C MP, CBC, PAB #### [address] Urea nitrogen [Mass/Vol] 8 mg/dL Low 9- [facility] Comment on above: Performed By: #### C MP, CBC, PAB #### [address] Complete Blood Count Auto Di ffon 09-21-2022 Basophils (Bld) [#/Vol] 0.1 10*3/uL Normal 0.0-0.2 [facility] Comment on above: Result Comment: PERF ORMED BY: [place] [address] PATHOLOGIST HA[employer]ARD[employer] MANAG[employer] SPECIALIST XU TAPIA M.D. Performed By: #### C MP, CBC, PAB #### [address] Basophils/100 WBC (Bld) 1.5 % Normal . [facility] Comment on above: Performed By: #### C MP, CBC, PAB #### [address] Eosinophils (Bld) [#/Vol] 0.4 10*3/uL Normal 0.0-0.45 [facility] Comment on above: Performed By: #### C MP, CBC, PAB #### [address] Eosinophils/100 WBC (Bld) 6.3 % Normal . [facility] Comment on above: Performed By: #### C MP, CBC, PAB #### [address] Erythrocyte distribution width (RBC) [Ratio] 16.0 % High 12.0-14.8 [facility] Comment on above: Performed By: #### C MP, CBC, PAB #### [address] Hematocrit (Bld) [Volume fraction] 25.5 % Low 38.8-50.0 [facility] Comment on above: Performed By: #### C MP, CBC, PAB #### [address] Hemoglobin (Bld) [Mass/Vol] 8.3 g/dL Low 13.0-17.0 [facility] Comment on above: Performed By: #### C MP, CBC, PAB #### [address] Lymphocytes (Bld) [#/Vol] 1.6 10*3/uL Normal 1.00-4.8 [facility] Comment on above: Performed By: #### C MP, CBC, PAB #### [address] Lymphocytes/100 WBC (Bld) 24.7 % Normal . [facility] Comment on above: Performed By: #### C MP, CBC, PAB #### [address] MCH (RBC) [Entitic mass] 31.3 pg Normal 27.5-35.2 [facility] Comment on above: Performed By: #### C MP, CBC, PAB #### [address] MCV (RBC) [Entitic vol] 95.9 fL Normal 83.5-101 [facility] Comment on above: Performed By: #### C MP, CBC, PAB #### [address] Mean Corpuscular HGB Conc 32.7 g/dL Normal 32.5-35.6 [facility] Comment on above: Performed By: #### C MP, CBC, PAB #### [address] Monocytes (Bld) [#/Vol] 0.6 10*3/uL Normal 0.0-0.8 [facility] Comment on above: Performed By: #### C MP, CBC, PAB #### [address] [place] [address] [place] Monocytes/100 WBC (Bld) 9.1 % Normal . [facility] Comment on above: Performed By: #### C MP, CBC, PAB #### [facility] [address] Neutrophils (Bld) [#/Vol] 3.7 10*3/uL Normal 1.8-7.7 [facility] Comment on above: Performed By: #### C MP, CBC, PAB #### [facility] [address] Neutrophils/100 WBC (Bld) 58.4 % Normal . [facility] Comment on above: Performed By: #### C MP, CBC, PAB #### [facility] [address] Platelet mean volume (Bld) [Entitic vol] 8.3 fL Normal 6.6-10.1 [facility] Comment on above: Performed By: #### C MP, CBC, PAB #### [facility] [address] Platelets (Bld) [#/Vol] 372 10*3/uL Normal 150-450 [facility] Comment on above: Performed By: #### C MP, CBC, PAB #### [facility] [address] RBC (Bld) [#/Vol] 2.66 10*6/uL Low 3.90-5.60 [facility] Comment on above: Performed By: #### C MP, CBC, PAB #### [facility] [address] WBC (Bld) [#/Vol] 6.4 10*3/uL Normal 4.5-11.0 [facility] Comment on above: Performed By: #### C MP, CBC, PAB #### [facility] [address] Complete Blood Count Auto Di ffOrdered By: Gordon Smith on 09-21-2022 Nucleated RBC/100 WBC (Bld) [Ratio] 0.1 % 0-0.5 [facility] Comment on above: Performed By: #### C MP, CBC, PAB #### [address] Complete Blood Count Auto Di ffon 09-20-2022 Basophils (Bld) [#/Vol] 0.1 10*3/uL Normal 0.0-0.2 [facility] Comment on above: Result Comment: PERF ORMED BY: [place] [address] PATHOLOGIST [employer]NAG[employer] SPECIALIST XU TAPIA M.D. Performed By: #### C BC #### [address] Basophils/100 WBC (Bld) 1.2 % Normal . [facility] Comment on above: Performed By: #### C BC #### [address] Eosinophils (Bld) [#/Vol] 0.3 10*3/uL Normal 0.0-0.45 [facility] Comment on above: Performed By: #### C BC #### [address] Eosinophils/100 WBC (Bld) 4.6 % Normal . [facility] Comment on above: Performed By: #### C BC #### [address] Erythrocyte distribution width (RBC) [Ratio] 16.3 % High 12.0-14.8 [facility] Comment on above: Performed By: #### C BC #### [address] Hematocrit (Bld) [Volume fraction] 26.4 % Low 38.8-50.0 [facility] Comment on above: Performed By: #### C BC #### [address] Hemoglobin (Bld) [Mass/Vol] 8.7 g/dL Low 13.0-17.0 [facility] Comment on above: Performed By: #### C BC #### [facility] [address] Lymphocytes (Bld) [#/Vol] 1.4 10*3/uL Normal 1.00-4.8 [facility] Comment on above: Performed By: #### C BC #### [facility] [address] Lymphocytes/100 WBC (Bld) 20.0 % Normal . [facility] Comment on above: Performed By: #### C BC #### [address] MCH (RBC) [Entitic mass] 31.8 pg Normal 27.5-35.2 [facility] Comment on above: Performed By: #### C BC #### [address] MCV (RBC) [Entitic vol] 96.0 fL Normal 83.5-101 [facility] Comment on above: Performed By: #### C BC #### [address] Mean Corpuscular HGB Conc 33.2 g/dL Normal 32.5-35.6 [facility] Comment on above: Performed By: #### C BC #### [address] Monocytes (Bld) [#/Vol] 0.6 10*3/uL Normal 0.0-0.8 [facility] Comment on above: Performed By: #### C BC #### [place] [address] [place] Monocytes/100 WBC (Bld) 8.5 % Normal . [facility] Comment on above: Performed By: #### C BC #### [address] Neutrophils (Bld) [#/Vol] 4.5 10*3/uL Normal 1.8-7.7 [facility] Comment on above: Performed By: #### C BC #### [address] Neutrophils/100 WBC (Bld) 65.7 % Normal . [facility] Comment on above: Performed By: #### C BC #### [address] Nucleated RBC/100 WBC (Bld) [Ratio] 0.0 % Normal 0-0.5 [facility] Comment on above: Performed By: #### C BC #### [address] Platelet mean volume (Bld) [Entitic vol] 8.3 fL Normal 6.6-10.1 [facility] Comment on above: Performed By: #### C BC #### [address] Platelets (Bld) [#/Vol] 373 10*3/uL Normal 150-450 [facility] Comment on above: Performed By: #### C BC #### [address] RBC (Bld) [#/Vol] 2.75 10*6/uL Low 3.90-5.60 [facility] Comment on above: Performed By: #### C BC #### [address] WBC (Bld) [#/Vol] 6.8 10*3/uL Normal 4.5-11.0 [facility] Comment on above: Performed By: #### C BC #### [address] Fecal occult blood detection by immunochemistryOrdered By: Tram Perez on 09-20-2022 Hemoglobin.gastrointesti nal Ql (Stl) [facility] Stool Occult Blood (Guaiac)o n 09-20-2022 Stool Occult Blood (Guaiac) Occult Blood Negative for Occult Blood by Guaiac Methodology ---- Reference range = Negative PERFORMED BY: [place] [address] PATHOLOGIST [employer]ARD[employer] MANAG[employer] SPECIALIST XU TAPIA M.D. [facility] Comment on above: Performed By: #### C MP, CBC, PAB #### [place] [id number] [facility] US venous duplex LE BIon US venous duplex LE BI [facility] Main [place] [address] [place] [address] Ultrasound Report Signed Patient: Indio Collado MR#: [id number] 8 : 1955 Acct:[id number] Age/Sex: 67 / M ADM Date: 09/11/22 Loc: Room: [address] [place] [address] Type: ADM IN Attending Dr: Gordon Smith [...] Fer Mayfield M.D.09/20/2022 2:43 PM Dictation Location: [place] [address] Tech: Malgorzata Torres Transcribed By: YENI 09/20/22 3867 Dictated By: Fer Mayfield MD 09/20/22 1441 Signed By: 09/20/22 1443 Normal [facility] Activated partial thrombopla stin time (aPTT) in platelet poor plasma by coagulation aOrdered By: Tram Perez on 09-19-2022 aPTT Coag (PPP) [Time] 33.8 s 25.1-36.5 [facility] Basic Metabolic Panelon 08-25 Anion gap [Moles/Vol] 7.3 mmol/L Normal 6.0-15.0 [facility] Comment on above: Performed By: #### C MP, CBC, PAB #### [facility] [address] [place] [address] [place] Calcium [Mass/Vol] 7.8 mg/dL Low 8.2-10.2 [facility] Comment on above: Performed By: #### C MP, CBC, PAB #### [facility] [address] [place] [address] [place] Chloride [Moles/Vol] 103 mmol/L Normal 95-114 [facility] Comment on above: Performed By: #### C MP, CBC, PAB #### [facility] [address] [place] [address] [place] CO2 [Moles/Vol] 29.1 mmol/L Normal 22.0-30.[address] [facility] Comment on above: Performed By: #### C MP, CBC, PAB #### [facility] [address] [place] [address] [place] Creatinine [Mass/Vol] 0.86 mg/dL Normal 0.64-1.27 [facility] Comment on above: Performed By: #### C MP, CBC, PAB #### [facility] [address] [place] [address] [place] Creatinine Clr Calc Pharmacy 103.85 Normal [facility] Comment on above: Result Comment: PERF ORMED BY: [place] [address] PATHOLOGIST HA[employer]ARD[employer] W[employer] MANAGEMENT SPECIALIST XU TAPIA M.D. Performed By: #### C MP, CBC, PAB #### [facility] [address] [place] [address] [place] Estimated GFR ( Marie > 60 Normal [facility] Comment on above: Result Comment: GFR estimated reference range: According to KDOQI guidelines, <60 ml/min/1.73m2 is sufficient to diagnose a patient with chronic kidney disease. Performed By: #### C MP, CBC, PAB #### [facility] [address] Estimated GFR (Non- Am > 60 [facility] Comment on above: Performed By: #### C MP, CBC, PAB #### [address] Glucose [Mass/Vol] 90 mg/dL Normal 70-100 [facility] Comment on above: Result Comment: [place] Glucose Reference Range is dependent on time and content of last meal. Glucose of more than 200 mg/dL in a nonstressed, ambulatory subject supports the diagnosis of Diabetes Mellitus. ADA recommended reference range Performed By: #### C MP, CBC, PAB #### [address] Potassium [Moles/Vol] 4.4 mmol/L Normal 3.5-5.1 [facility] Comment on above: Performed By: #### C MP, CBC, PAB #### [place] [address] [place] Sodium [Moles/Vol] 135 mmol/L Low 136-146 [facility] Comment on above: Performed By: #### C MP, CBC, PAB #### [place] [address] [place] Urea nitrogen [Mass/Vol] 10 mg/dL Normal 9-23 [facility] Comment on above: Performed By: #### C MP, CBC, PAB #### [address] abdomen pelvis w miladyon CT abdomen pelvis w [facility] Main [place] [address] [place] [address] CT Scan Report Signed Patient: Indio Collado MR#: [id number] 8 : 1955 Acct:[id number] Age/Sex: 67 / M ADM Date: 09/11/22 Loc: Room: 9J3912-8 Type: ADM IN Attending Dr: Gordon Smith [...] Juhi Morales M.D.09/19/2022 3:46 PM Dictation Location: [place] [address] Transcribed By: [facility] 09/19/22 1546 Dictated By: Juhi Morales MD 09/19/22 1534 Signed By: 09/19/22 1546 Normal [facility] Coagulation Profileon 2021 aPTT Coag (Bld) [Time] 33.8 s Normal 25.1-36.5 [facility] Comment on above: Result Comment: PERF ORMED BY: [place] [address] PATHOLOGIST HAZARD[employer] W[employer] MANAGEMENT SPECIALIST XU TAPIA M.D. Performed By: #### C AYLIN REY, PAB #### [address] INR Coag (PPP) [Relative time] 1.2 {INR} Normal [facility] Comment on above: Result Comment: INR [...] By: #### C MP, CBC, PAB #### [facility] [address] [place] [address] PT Coag (PPP) [Time] 13.1 s High 9.0-12.9 [facility] Comment on above: Performed By: #### C MP, CBC, PAB #### [facility] [address] [place] [address] Laboratory - CoagulationOrde red By: Tram Perez on 09-19-2022 PT Coag (PPP) [Time] 13.1 s 9.0-12.9 [facility] Platelet poor plasma interna tional normalized ratio (INR) by coagulation assay (relatOrdered By: Tram Perez on 09-19-2022 INR Coag (PPP) [Relative time] 1.2 {INR} [facility] Comment on above: INR Therapeutic Rang [...] Anion gap [Moles/Vol] 8.9 mmol/L Normal 6.0-15.0 [facility] Comment on above: Performed By: #### C BC, BMP #### [facility] [address] Calcium [Mass/Vol] 7.9 mg/dL Low 8.2-10.2 [facility] Comment on above: Performed By: #### C BC, BMP #### [facility] [address] [place] [address] [place] Chloride [Moles/Vol] 103 mmol/L Normal 95-114 [facility] Comment on above: Performed By: #### C BC, BMP #### [facility] [address] CO2 [Moles/Vol] 28.4 mmol/L Normal 22.0-30.[address] [facility] Comment on above: Performed By: #### C BC, BMP #### [facility] [address] [place] [address] [place] Creatinine [Mass/Vol] 0.78 mg/dL Normal 0.64-1.27 [facility] Comment on above: Performed By: #### C BC, BMP #### [facility] [address] [place] [address] [place] Creatinine Clr Calc Pharmacy 102.55 Normal [facility] Comment on above: Result Comment: PERF ORMED BY: [place] [address] PATHOLOGIST HAZARD[employer] MANAG[employer] SPECIALIST XU TAPIA M.D. Performed By: #### C BC, BMP #### [address] Estimated GFR ( Marie > 60 [facility] Comment on above: Result Comment: GFR estimated reference range: According to KDOQI guidelines, <60 ml/min/1.73m2 is sufficient to diagnose a patient with chronic kidney disease. Performed By: #### C BC, BMP #### [address] Estimated GFR (Non- Am > 60 Normal [facility] Comment on above: Performed By: #### C BC, BMP #### [address] Glucose [Mass/Vol] 95 mg/dL Normal 70-100 [facility] Comment on above: Result Comment: [place] Glucose Reference Range is dependent on time and content of last meal. Glucose of more than 200 mg/dL in a nonstressed, ambulatory subject supports the diagnosis of Diabetes Mellitus. ADA recommended reference range Performed By: #### C BC, BMP #### [address] Potassium [Moles/Vol] 4.3 mmol/L Normal 3.5-5.1 [facility] Comment on above: Performed By: #### C BC, BMP #### [place] [address] [place] Sodium [Moles/Vol] 136 mmol/L Normal 136-146 [facility] Comment on above: Performed By: #### C BC, BMP #### [address] Urea nitrogen [Mass/Vol] 9 mg/dL Normal 9-23 [facility] Comment on above: Performed By: #### C BC, BMP #### [address] Complete Blood Count Auto Di ffon 09-18-2022 Basophils (Bld) [#/Vol] 0.1 10*3/uL Normal 0.0-0.2 [facility] Comment on above: Result Comment: PERF ORMED BY: [place] [address] PATHOLOGIST [employer]ARD[employer] MANAG[employer] SPECIALIST XU TAPIA M.D. Performed By: #### C BC, BMP #### [address] Basophils/100 WBC (Bld) 1.0 % Normal . [facility] Comment on above: Performed By: #### C BC, BMP #### [address] Eosinophils (Bld) [#/Vol] 0.5 10*3/uL High 0.0-0.45 [facility] Comment on above: Performed By: #### C BC, BMP #### [address] Eosinophils/100 WBC (Bld) 6.0 % Normal . [facility] Comment on above: Performed By: #### C BC, BMP #### [address] Erythrocyte distribution width (RBC) [Ratio] 16.2 % High 12.0-14.8 [facility] Comment on above: Performed By: #### C BC, BMP #### [address] Hematocrit (Bld) [Volume fraction] 24.7 % Low 38.8-50.0 [facility] Comment on above: Performed By: #### C BC, BMP #### [place] [address] [place] Hemoglobin (Bld) [Mass/Vol] 8.1 g/dL Low 13.0-17.0 [facility] Comment on above: Performed By: #### C BC, BMP #### [place] [address] [place] Lymphocytes (Bld) [#/Vol] 1.5 10*3/uL Normal 1.00-4.8 [facility] Comment on above: Performed By: #### C BC, BMP #### [facility] [address] [place] [address] [place] Lymphocytes/100 WBC (Bld) 18.5 % Normal . [facility] Comment on above: Performed By: #### C BC, BMP #### [facility] [address] [place] [address] [place] MCH (RBC) [Entitic mass] 31.6 pg Normal 27.5-35.2 [facility] Comment on above: Performed By: #### C BC, BMP #### [facility] [address] MCV (RBC) [Entitic vol] 96.7 fL Normal 83.5-101 [facility] Comment on above: Performed By: #### C BC, BMP #### [address] Mean Corpuscular HGB Conc 32.7 g/dL Normal 32.5-35.6 [facility] Comment on above: Performed By: #### C BC, BMP #### [place] [address] [place] Monocytes (Bld) [#/Vol] 0.7 10*3/uL Normal 0.0-0.8 [facility] Comment on above: Performed By: #### C BC, BMP #### [place] [address] [place] Monocytes/100 WBC (Bld) 8.7 % Normal . [facility] Comment on above: Performed By: #### C BC, BMP #### [place] [address] [place] Neutrophils (Bld) [#/Vol] 5.3 10*3/uL Normal 1.8-7.7 [facility] Comment on above: Performed By: #### C BC, BMP #### [place] [address] [place] Neutrophils/100 WBC (Bld) 65.8 % Normal . [facility] Comment on above: Performed By: #### C BC, BMP #### [address] [place] [address] [place] Nucleated RBC/100 WBC (Bld) [Ratio] 0.1 % Normal 0-0.5 [facility] Comment on above: Performed By: #### C MONI, BMP #### [facility] [address] Platelet mean volume (Bld) [Entitic vol] 8.1 fL Normal 6.6-10.1 [facility] Comment on above: Performed By: #### C MONI, BMP #### [facility] [address] [place] [address] [place] Platelets (Bld) [#/Vol] 358 10*3/uL Normal 150-450 [facility] Comment on above: Performed By: #### C MONI, BMP #### [address] RBC (Bld) [#/Vol] 2.55 10*6/uL Low 3.90-5.60 [facility] Comment on above: Performed By: #### C MONI, BMP #### [address] WBC (Bld) [#/Vol] 8.1 10*3/uL Normal 4.5-11.0 [facility] Comment on above: Performed By: #### C MONI, BMP #### [address] Glucose Glucometer (dC) [M ass/Vol]Ordered By: Gordon Smith on 09-14-2022 Glucose [Mass/Vol] 97 mg/dL [facility] Comment on above: Random Glucose Refer ence Range is dependent on time and content of last meal. Glucose of more than 200 mg/dL in a nonstressed, ambulatory subject supports the diagnosis of Diabetes Mellitus. Glucose Poct Glucometerson 11-14-2021 Commemt1 Glu2: Cleaned Meter Normal [facility] Comment on above: Performed By: #### G LUBRIAN #### Point of Care testing , Commemt2 WILL NOTIFY DR/RN Normal [facility] Comment on above: Result Comment: PERF ORMED BY: [place] [address] PATHOLOGIST [employer] MANAG[employer] SPECIALIST XU TAPIA M.D. Performed By: #### G LULS #### Point of Care testing , Glucose [Mass/Vol] 97 mg/dL Normal [facility] Comment on above: Result Comment: [place] om Glucose Reference Range is dependent on time and content of last meal. Glucose of more than 200 mg/dL in a nonstressed, ambulatory subject supports the diagnosis of Diabetes Mellitus. Performed By: #### G LULS #### Point of Care testing , Commemt1 Glu2: Cleaned Meter [facility] Comment on above: Result Comment: PERF ORMED BY: [place] [address] PATHOLOGIST HAZARD[employer] W[employer] MANAG[employer] SPECIALIST XU TAPIA M.D. Performed By: #### C MP, CBC, PAB #### [address] Glucose [Mass/Vol] 99 mg/dL Normal [facility] Comment on above: Result Comment: [place] om Glucose Reference Range is dependent on time and content of last meal. Glucose of more than 200 mg/dL in a nonstressed, ambulatory subject supports the diagnosis of Diabetes Mellitus. Performed By: #### C MP, CBC, PAB #### [facility] [address] [place] [address] No Panel InformationOrdered By: Gordon Smith on 09-14-2022 Bedside Glucose #[address]/rn [facility] Bedside Glucose Comment Glu2: cleaned meter [facility] Basic Metabolic Panelon 08-25 Anion gap [Moles/Vol] 9.3 mmol/L Normal 6.0-15.0 [facility] Comment on above: Performed By: #### G LULS #### Point of Care testing , Calcium [Mass/Vol] 7.9 mg/dL Low 8.2-10.2 [facility] Comment on above: Performed By: #### G LULS #### Point of Care testing , Chloride [Moles/Vol] 104 mmol/L Normal 95-114 [facility] Comment on above: Performed By: #### G LULS #### Point of Care testing , CO2 [Moles/Vol] 26.6 mmol/L Normal 22.0-30.[address] [facility] Comment on above: Performed By: #### G LULS #### Point of Care testing , Creatinine [Mass/Vol] 0.84 mg/dL Normal 0.64-1.27 [facility] Comment on above: Performed By: #### G LULS #### Point of Care testing , Creatinine Clr Calc Pharmacy 97.66 [facility] Comment on above: Result Comment: PERF ORMED BY: [facility] [address] [place] [address] PATHOLOGIST [employer] MANAG[employer] SPECIALIST XU TAPIA M.D. Performed By: #### G LULS #### Point of Care testing , Estimated GFR ( Marie > 60 [facility] Comment on above: Result Comment: GFR estimated reference range: According to KDOQI guidelines, <60 ml/min/1.73m2 is sufficient to diagnose a patient with chronic kidney disease. Performed By: #### G LULS #### Point of Care testing , Estimated GFR (Non- Am > 60 [facility] Comment on above: Performed By: #### G LULS #### Point of Care testing , Glucose [Mass/Vol] 90 mg/dL Normal 70-100 [facility] Comment on above: Result Comment: [place] Glucose Reference Range is dependent on time and content of last meal. Glucose of more than 200 mg/dL in a nonstressed, ambulatory subject supports the diagnosis of Diabetes Mellitus. ADA recommended reference range Performed By: #### G LULS #### Point of Care testing , Potassium [Moles/Vol] 3.9 mmol/L Normal 3.5-5.1 [facility] Comment on above: Performed By: #### G LULS #### Point of Care testing , Sodium [Moles/Vol] 136 mmol/L Normal 136-146 [facility] Comment on above: Performed By: #### G LULS #### Point of Care testing , Urea nitrogen [Mass/Vol] 11 mg/dL Normal 9-23 [facility] Comment on above: Performed By: #### G LULS #### Point of Care testing , Complete Blood Count Auto Di ffon 09-13-2022 Basophils (Bld) [#/Vol] 0.1 10*3/uL Normal 0.0-0.2 [facility] Comment on above: Result Comment: PERF ORMED BY: [facility] [place] [address] PATHOLOGIST [employer] MANAG[employer] SPECIALIST XU TAPIA M.D. Performed By: #### G HUGOLS #### Point of Care testing , Basophils/100 WBC (Bld) 1.1 % Normal . [facility] Comment on above: Performed By: #### G HUGOLS #### Point of Care testing , Eosinophils (Bld) [#/Vol] 0.4 10*3/uL Normal 0.0-0.45 [facility] Comment on above: Performed By: #### G LULS #### Point of Care testing , Eosinophils/100 WBC (Bld) 5.5 % Normal . [facility] Comment on above: Performed By: #### G HUGOLS #### Point of Care testing , Erythrocyte distribution width (RBC) [Ratio] 15.9 % High 12.0-14.8 [facility] Comment on above: Performed By: #### G HUGOLS #### Point of Care testing , Hematocrit (Bld) [Volume fraction] 26.2 % Low 38.8-50.0 [facility] Comment on above: Performed By: #### G LULS #### Point of Care testing , Hemoglobin (Bld) [Mass/Vol] 8.6 g/dL Low 13.0-17.0 [facility] Comment on above: Performed By: #### G LULS #### Point of Care testing , Lymphocytes (Bld) [#/Vol] 1.7 10*3/uL Normal 1.00-4.8 [facility] Comment on above: Performed By: #### G LULS #### Point of Care testing , Lymphocytes/100 WBC (Bld) 21.1 % Normal . [facility] Comment on above: Performed By: #### G HUGOLS #### Point of Care testing , MCH (RBC) [Entitic mass] 31.4 pg Normal 27.5-35.2 [facility] Comment on above: Performed By: #### G LULS #### Point of Care testing , MCV (RBC) [Entitic vol] 95.6 fL Normal 83.5-101 [facility] Comment on above: Performed By: #### G HUGOLS #### Point of Care testing , Mean Corpuscular HGB Conc 32.9 g/dL Normal 32.5-35.6 [facility] Comment on above: Performed By: #### G HUGOLS #### Point of Care testing , Monocytes (Bld) [#/Vol] 1.0 10*3/uL High 0.0-0.8 [facility] Comment on above: Performed By: #### G LULS #### Point of Care testing , Monocytes/100 WBC (Bld) 12.0 % Normal . [facility] Comment on above: Performed By: #### G HUGOLS #### Point of Care testing , Neutrophils (Bld) [#/Vol] 4.9 10*3/uL Normal 1.8-7.7 [facility] Comment on above: Performed By: #### G HUGOLS #### Point of Care testing , Neutrophils/100 WBC (Bld) 60.3 % Normal . [facility] Comment on above: Performed By: #### G HUGOLS #### Point of Care testing , Nucleated RBC/100 WBC (Bld) [Ratio] 0.0 % Normal 0-0.5 [facility] Comment on above: Performed By: #### G LULS #### Point of Care testing , Platelet mean volume (Bld) [Entitic vol] 8.4 fL Normal 6.6-10.1 [facility] Comment on above: Performed By: #### G HUGOLS #### Point of Care testing , Platelets (Bld) [#/Vol] 321 10*3/uL Normal 150-450 [facility] Comment on above: Performed By: #### G LULS #### Point of Care testing , RBC (Bld) [#/Vol] 2.74 10*6/uL Low 3.90-5.60 [facility] Comment on above: Performed By: #### G LULS #### Point of Care testing , WBC (Bld) [#/Vol] 8.1 10*3/uL Normal 4.5-11.0 [facility] Comment on above: Performed By: #### G LULS #### Point of Care testing , Glucose Poct Glucometerson 11-13-2021 Commemt1 [facility] Comment on above: Result Comment: Glu2 : WILL NOTIFY DR/RN Performed By: #### G LULS #### Point of Care testing , Commemt2 Cleaned Meter [facility] Comment on above: Result Comment: PERF ORMED BY: [facility] [address] [facility] [place] [address] PATHOLOGIST [employer] MANAGEMENT SPECIALIST XU TAPAI M.D. Performed By: #### G LULS #### Point of Care testing , Glucose [Mass/Vol] 88 mg/dL Normal [facility] Comment on above: Result Comment: [place] om Glucose Reference Range is dependent on time and content of last meal. Glucose of more than 200 mg/dL in a nonstressed, ambulatory subject supports the diagnosis of Diabetes Mellitus. Performed By: #### G LULS #### Point of Care testing , Glucose [Mass/Vol] 99 mg/dL Normal [facility] Comment on above: Result Comment: [place] om Glucose Reference Range is dependent on time and content of last meal. Glucose of more than 200 mg/dL in a nonstressed, ambulatory subject supports the diagnosis of Diabetes Mellitus. PERFORMED BY: [facility] [address] [place] [id number] PATHOLOGIST HAZARD[employer] W[employer] MANAGEMENT SPECIALIST XU TAPIA M.D. Performed By: #### G LULS #### Point of Care testing , Albumin [Mass/volume] in Ser um or PlasmaOrdered By: Gordon Smith on 09-12-2022 Albumin [Mass/Vol] 1.7 g/dL 3.2-5.5 [facility] Complete Blood Count Auto Di ffon 09-12-2022 Basophils (Bld) [#/Vol] 0.1 10*3/uL Normal 0.0-0.2 [facility] Comment on above: Result Comment: PERF ORMED BY: [facility] [address] [place] [address] PATHOLOGIST HAZARD[employer] W[employer] MANAG[employer] SPECIALIST XU TAPIA M.D. Performed By: #### C MP, CBC, PAB #### [facility] [address] Basophils/100 WBC (Bld) 1.2 % Normal . [facility] Comment on above: Performed By: #### C MP, CBC, PAB #### [facility] [address] Eosinophils (Bld) [#/Vol] 0.3 10*3/uL Normal 0.0-0.45 [facility] Comment on above: Performed By: #### C MP, CBC, PAB #### [address] Eosinophils/100 WBC (Bld) 4.6 % Normal . [facility] Comment on above: Performed By: #### C MP, CBC, PAB #### [facility] [address] [place] [address] Erythrocyte distribution width (RBC) [Ratio] 15.9 % High 12.0-14.8 [facility] Comment on above: Performed By: #### C MP, CBC, PAB #### [facility] [address] Hematocrit (Bld) [Volume fraction] 23.6 % Low 38.8-50.0 [facility] Comment on above: Performed By: #### C MP, CBC, PAB #### [facility] [address] Hemoglobin (Bld) [Mass/Vol] 7.8 g/dL Low 13.0-17.0 [facility] Comment on above: Performed By: #### C MP, CBC, PAB #### [address] Lymphocytes (Bld) [#/Vol] 1.7 10*3/uL Normal 1.00-4.8 [facility] Comment on above: Performed By: #### C MP, CBC, PAB #### [address] Lymphocytes/100 WBC (Bld) 25.1 % Normal . [facility] Comment on above: Performed By: #### C MP, CBC, PAB #### [address] MCH (RBC) [Entitic mass] 31.3 pg Normal 27.5-35.2 [facility] Comment on above: Performed By: #### C MP, CBC, PAB #### [address] MCV (RBC) [Entitic vol] 94.6 fL Normal 83.5-101 [facility] Comment on above: Performed By: #### C MP, CBC, PAB #### [address] Mean Corpuscular HGB Conc 33.1 g/dL Normal 32.5-35.6 [facility] Comment on above: Performed By: #### C MP, CBC, PAB #### [place] [address] [place] Monocytes (Bld) [#/Vol] 0.8 10*3/uL Normal 0.0-0.8 [facility] Comment on above: Performed By: #### C MP, CBC, PAB #### [place] [address] [place] Monocytes/100 WBC (Bld) 12.0 % Normal . [facility] Comment on above: Performed By: #### C MP, CBC, PAB #### [place] [address] [place] Neutrophils (Bld) [#/Vol] 3.8 10*3/uL Normal 1.8-7.7 [facility] Comment on above: Performed By: #### C MP, CBC, PAB #### [address] Neutrophils/100 WBC (Bld) 57.1 % Normal . [facility] Comment on above: Performed By: #### C MP, CBC, PAB #### [address] Nucleated RBC/100 WBC (Bld) [Ratio] 0.0 % Normal 0-0.5 [facility] Comment on above: Performed By: #### C MP, CBC, PAB #### [address] Platelet mean volume (Bld) [Entitic vol] 8.6 fL Normal 6.6-10.1 [facility] Comment on above: Performed By: #### C MP, CBC, PAB #### [address] Platelets (Bld) [#/Vol] 280 10*3/uL Normal 150-450 [facility] Comment on above: Performed By: #### C MP, CBC, PAB #### [address] RBC (Bld) [#/Vol] 2.50 10*6/uL Low 3.90-5.60 [facility] Comment on above: Performed By: #### C MP, CBC, PAB #### [address] WBC (Bld) [#/Vol] 6.7 10*3/uL Normal 4.5-11.0 [facility] Comment on above: Performed By: #### C MP, CBC, PAB #### [address] Comprehensive Metabolic Pane carl 09-12-2022 Albumin [Mass/Vol] 1.7 g/dL Low 3.2-5.5 [facility] Comment on above: Performed By: #### C MP, CBC, PAB #### [facility] [address] Albumin/Globulin [Mass ratio] 0.8 {ratio} Normal [facility] Comment on above: Performed By: #### C MP, CBC, PAB #### [facility] [address] ALP [Catalytic activity/Vol] 58 U/L Normal 32-92 [facility] Comment on above: Performed By: #### C MP, CBC, PAB #### [facility] [address] ALT [Catalytic activity/Vol] 15 U/L Normal 10-60 [facility] Comment on above: Performed By: #### C MP, CBC, PAB #### [facility] [address] Anion gap [Moles/Vol] 6.7 mmol/L Normal 6.0-15.0 [facility] Comment on above: Performed By: #### C MP, CBC, PAB #### [facility] [address] AST [Catalytic activity/Vol] 13 U/L Normal 10-42 [facility] Comment on above: Performed By: #### C MP, CBC, PAB #### [facility] [address] Bilirubin [Mass/Vol] 1.5 mg/dL High 0.3-1.2 [facility] Comment on above: Result Comment: Samp les from patients who have taken Naproxen have shown spurious elevation in Total Bilirubin levels. A metabolite of Naproxen, O-desmethylnaproxen, has been shown to interfere with the Jendrassik-Grof method for measuring Total Bilirubin. Performed By: #### C MP, CBC, PAB #### [facility] [address] Calcium [Mass/Vol] 7.6 mg/dL Low 8.2-10.2 [facility] Comment on above: Performed By: #### C MP, CBC, PAB #### [facility] [address] [place] [address] [place] Chloride [Moles/Vol] 105 mmol/L Normal 95-114 [facility] Comment on above: Performed By: #### C MP, CBC, PAB #### [facility] [address] CO2 [Moles/Vol] 30.2 mmol/L High 22.0-30.[address] [facility] Comment on above: Performed By: #### C MP, CBC, PAB #### [facility] [address] Creatinine [Mass/Vol] 0.90 mg/dL Normal 0.64-1.27 [facility] Comment on above: Performed By: #### C MP, CBC, PAB #### [facility] [address] [place] [address] [place] Creatinine Clr Calc Pharmacy 91.15 [facility] Comment on above: Performed By: #### C MP, CBC, PAB #### [facility] [address] Estimated GFR ( Marie > 60 [facility] Comment on above: Result Comment: GFR estimated reference range: According to KDOQI guidelines, <60 ml/min/1.73m2 is sufficient to diagnose a patient with chronic kidney disease. Performed By: #### C MP, CBC, PAB #### [facility] [address] [place] [address] Estimated GFR (Non- Am > 60 [facility] Comment on above: Performed By: #### C MP, CBC, PAB #### [facility] [address] [place] [address] [place] Globulin (S) [Mass/Vol] 2.2 g/dL Normal [facility] Comment on above: Performed By: #### C MP, CBC, PAB #### [facility] [address] Glucose [Mass/Vol] 84 mg/dL Normal 70-100 [facility] Comment on above: Result Comment: [place] Glucose Reference Range is dependent on time and content of last meal. Glucose of more than 200 mg/dL in a nonstressed, ambulatory subject supports the diagnosis of Diabetes Mellitus. ADA recommended reference range Performed By: #### C MP, CBC, PAB #### [facility] [address] Potassium [Moles/Vol] 3.9 mmol/L Normal 3.5-5.1 [facility] Comment on above: Performed By: #### C MP, CBC, PAB #### [facility] [address] Protein [Mass/Vol] 3.9 g/dL Low 6.1-7.9 [facility] Comment on above: Performed By: #### C MP, CBC, PAB #### [address] Sodium [Moles/Vol] 138 mmol/L Normal 136-146 [facility] Comment on above: Performed By: #### C MP, CBC, PAB #### [address] Urea nitrogen [Mass/Vol] 15 mg/dL Normal 9-23 [facility] Comment on above: Performed By: #### C MP, CBC, PAB #### [address] Globulin Calc (S) [Mass/Vol] Ordered By: Gordon Smith on 09-12-2022 Globulin (S) [Mass/Vol] 2.2 g/dL [facility] Glucose Poct Glucometerson 1 11-12-2021 Commemt1 Glu2: Cleaned Meter Normal [facility] Comment on above: Result Comment: PERF ORMED BY: [place] [address] PATHOLOGIST HAZARD[employer] W[employer] MANAGEMENT SPECIALIST XU TAPIA M.D. Performed By: #### G LUBRIAN #### Point of Care testing , Glucose [Mass/Vol] 135 mg/dL Normal [facility] Comment on above: Result Comment: [place] Glucose Reference Range is dependent on time and content of last meal. Glucose of more than 200 mg/dL in a nonstressed, ambulatory subject supports the diagnosis of Diabetes Mellitus. Performed By: #### G LULS #### Point of Care testing , Glucose [Mass/Vol] 96 mg/dL Normal [facility] Comment on above: Result Comment: [facility] Glucose Reference Range is dependent on time and content of last meal. Glucose of more than 200 mg/dL in a nonstressed, ambulatory subject supports the diagnosis of Diabetes Mellitus. PERFORMED BY: [facility] [address] [place] [address] PATHOLOGIST HAZARDOUS WAST[employer] MANAGEMENT SPECIALIST XU TAPIA M.D. Performed By: #### C MP, CBC, PAB #### [facility] [address] Prealbuminon 09-12-2022 Prealbumin [Mass/Vol] 9.3 mg/dL Low 18.0-38.0 [facility] Comment on above: Result Comment: PERF ORMED BY: [place] [address] PATHOLOGIST HAZARD[employer] W[employer] MANAGEMENT SPECIALIST XU TAPIA M.D. Performed By: #### C MP, CBC, PAB #### [facility] [address] [place] [address] Protein [Mass/volume] in Ser um or PlasmaOrdered By: Gordon Smith on 09-12-2022 Protein [Mass/Vol] 3.9 g/dL 6.1-7.9 [facility] Serum or plasma alanine lomax otransferase measurement without P-5'-P (enzymatic activiOrdered By: Gordon Smith on 09-12-2022 ALT No additional P-5'-P [Catalytic activity/Vol] 15 U/L 10-60 [facility] Serum or plasma albumin/glob ulin mass ratioOrdered By: Gordon Smith on 09-12-2022 Albumin/Globulin [Mass ratio] 0.8 {ratio} [facility] Serum or plasma alkaline yvrose sphatase measurement (enzymatic activity/volume)Ordered By: Gordon Smith on 09-12-2022 ALP [Catalytic activity/Vol] 58 U/L 32-92 [facility] Serum or plasma aspartate am inotransferase measurement (enzymatic activity/volume)Ordered By: Gordon Galvezey on 09-12-2022 AST [Catalytic activity/Vol] 13 U/L 10-42 [facility] Serum or plasma prealbumin m easurement (mass/volume)Ordered By: Gordon Luis on 09-12-2022 Prealbumin [Mass/Vol] 9.3 mg/dL 18.0-38.0 [facility] Serum or plasma total biliru bin measurement (mass/volume)Ordered By: Gordon Smith on 09-12-2022 Bilirubin [Mass/Vol] 1.5 mg/dL 0.3-1.2 [facility] Comment on above: Samples from patient s who have taken Naproxen have shown spurious elevation in Total Bilirubin levels. A metabolite of Naproxen, O-desmethylnaproxen, has been shown to interfere with the Francy method for measuring Total Bilirubin. Glucose Poct Glucometerson 1 11-11-2021 Glucose [Mass/Vol] 90 mg/dL Normal [facility] Comment on above: Result Comment: [facility] Glucose Reference Range is dependent on time and content of last meal. Glucose of more than 200 mg/dL in a nonstressed, ambulatory subject supports the diagnosis of Diabetes Mellitus. PERFORMED BY: [facility] [address] [place] [address] PATHOLOGIST [employer]ARD[employer] W[employer] MANAGEMENT SPECIALIST XU TAPIA M.D. Performed By: #### G LULS #### Point of Care testing , Basic Metab w/rfx MGon 09-10 Anion gap [Moles/Vol] 5 mmol/L Low 9-17 [facility] Comment on above: Performed By: #### I OCAL, CDP, MG, LACTIC, YVROSE, BNP, BMP #### [facility] [address] [place] [address] Chronometer Adjuster: Bret Vazquez MD Performed By: #### E RTPF, GHLTEG #### [facility] [address] [place], [place] [id number] Chronometer Adjuster: Bret Vazquez MD Calcium [Mass/Vol] 7.8 mg/dL Low 8.6-10.4 [facility] Comment on above: Performed By: #### I OCAL, CDP, MG, LACTIC, YVROSE, BNP, BMP #### [facility] [address] [place] [address] Chronometer Adjuster: Bret Vazquez MD Performed By: #### E RTPKLARISSA GoldenEG #### [address] [address] Chronometer Adjuster: Bret Vazquez MD Chloride [Moles/Vol] 105 mmol/L Normal 98-107 [facility] Comment on above: Performed By: #### I OCAL, CDP, MG, LACTIC, YVROSE, BNP, BMP #### [facility] [address] [place] [address] Chronometer Adjuster: Bret Vazquez MD Performed By: #### E RTKLARISSA HIGGINSEG #### [facility] [address] [place] [address] Chronometer Adjuster: Bret Vazquez MD CO2 [Moles/Vol] 24 mmol/L Normal 20-31 [facility] Comment on above: Performed By: #### I OCAL, CDP, MG, LACTIC, YVROSE, BNP, BMP #### [facility] [address] [place] [address] Chronometer Adjuster: Bret Vazquez MD Performed By: #### E RTKLARISSA HIGGINSEG #### [facility] [address] [place] [address] Chronometer Adjuster: Bret Vazquez MD Creatinine [Mass/Vol] 0.77 mg/dL Normal 0.70-1.20 [facility] Comment on above: Performed By: #### I OCAL, CDP, MG, LACTIC, YVROSE, BNP, BMP #### [facility] [address] [place] [address] Chronometer Adjuster: Bret Vazquez MD Performed By: #### E RTPFKLARISSAEG #### [address] [address] Chronometer Adjuster: Bret Vazquez MD GFR/1.73 sq M.predicted among non-blacks MDRD (S/P/Bld) [Vol rate/Area] mL/min/{1.73_m2} Normal >60 [facility] Comment on above: Result Comment: Effective [...] By: #### I OCAL, CDP, MG, LACTIC, YVROSE, BNP, BMP #### [facility] [address] [place] [address] Chronometer Adjuster: Bret Vazquez MD Performed By: #### CHRISTY MOJICA #### [facility] [address] [place] [address] Chronometer Adjuster: Bret Vazquez MD Glucose [Mass/Vol] 85 mg/dL Normal 70-99 [facility] Comment on above: Performed By: #### I OCAL, CDP, MG, LACTIC, YVROSE, BNP, BMP #### [facility] [address] [place] [address] Chronometer Adjuster: Bret Vazquez MD Performed By: #### CHRISTY MOJICA #### [facility] [address] [place] [address] Chronometer Adjuster: Bret Vazquez MD Potassium [Moles/Vol] 4.4 mmol/L Normal 3.7-5.3 [facility] Comment on above: Performed By: #### I OCAL, CDP, MG, LACTIC, YVROSE, BNP, BMP #### [facility] [address] [place] [address] Chronometer Adjuster: Bret Vazquez MD Performed By: #### CHRISTY MOJICA #### [address] [address] Chronometer Adjuster: Bret Vazquez MD Sodium [Moles/Vol] 134 mmol/L Low 135-144 [facility] Comment on above: Performed By: #### I OCAL, CDP, MG, LACTIC, YVROSE, BNP, BMP #### [address] [address] Chronometer Adjuster: Bret Vazquez MD Performed By: #### CHRISTY MOJICA #### [address] [address] Chronometer Adjuster: Bret Vazquez MD Urea nitrogen [Mass/Vol] 17 mg/dL Normal 8-23 [facility] Comment on above: Performed By: #### I OCAL, CDP, MG, LACTIC, YVROSE, BNP, BMP #### [address] [address] Chronometer Adjuster: Bret Vazquez MD Performed By: #### CHRISTY MOJICA #### [address] [address] Chronometer Adjuster: Bret Vazquez MD CBC with Diffon 09-10-2022 Abs. Basophil 0.06 k/uL Normal 0.00-0.20 [facility] Comment on above: Performed By: #### I OCAL, CDP, MG, LACTIC, YVROSE, BNP, BMP #### [facility] [address] [place] [address] Chronometer Adjuster: Bret Vazquez MD Performed By: #### CHRISTY MOJICA #### [facility] [address] [place] [address] Chronometer Adjuster: Bret Vazquez MD Abs.Imm.Granulocyte 0.04 k/uL Normal 0.00-0.30 [facility] Comment on above: Performed By: #### I OCAL, CDP, MG, LACTIC, YVROSE, BNP, BMP #### [address] [address] Chronometer Adjuster: Bret Vazquez MD Performed By: #### E RTPFKLARISSAEG #### [address] [address] Chronometer Adjuster: Bret Vazquez MD Abs.Neutrophil (Seg) 3.45 k/uL Normal 1.50-8.10 [facility] Comment on above: Performed By: #### I OCAL, CDP, MG, LACTIC, YVROSE, BNP, BMP #### [address] [address] Chronometer Adjuster: Bret Vazquez MD Performed By: #### E RTCHRISTY HIGGINS #### [place] [address] Chronometer Adjuster: Bret Vazquez MD Basophils/100 WBC (Bld) 1 % Normal 0-2 [facility] Comment on above: Performed By: #### I OCAL, CDP, MG, LACTIC, YVROSE, BNP, BMP #### [address] [address] Chronometer Adjuster: Bret Vazquez MD Performed By: #### E RTCHRISTY HIGGINS #### [address] [address] Chronometer Adjuster: Bret Vazquez MD Eosinophils (Bld) [#/Vol] 0.36 10*3/uL Normal 0.00-0.44 [facility] Comment on above: Performed By: #### I OCAL, CDP, MG, LACTIC, YVROSE, BNP, BMP #### [address] [address] Chronometer Adjuster: Bret Vazquez MD Performed By: #### E RTPFRANDOLPHLTEG #### [facility] [address] [place] [address] Chronometer Adjuster: Bret Vazquez MD Eosinophils/100 WBC (Bld) 6 % High 1-4 [facility] Comment on above: Performed By: #### I OCAL, CDP, MG, LACTIC, YVROSE, BNP, BMP #### [facility] [address] [place] [address] Chronometer Adjuster: Bret Vazquez MD Performed By: #### E RTPFRANDOLPHLTEG #### [facility] [address] [place] [address] Chronometer Adjuster: Bret Vazquez MD Erythrocyte distribution width (RBC) [Ratio] 15.8 % High 11.8-14.4 [facility] Comment on above: Performed By: #### I OCAL, CDP, MG, LACTIC, YVROSE, BNP, BMP #### [facility] [address] [place] [address] Chronometer Adjuster: Bret Vazquez MD Performed By: #### E RTKLARISSA HIGGINSEG #### [facility] [address] [place] [address] Chronometer Adjuster: Bret Vazquez MD Hematocrit (Bld) [Volume fraction] 25.2 % Low 40.7-50.3 [facility] Comment on above: Performed By: #### I OCAL, CDP, MG, LACTIC, YVROSE, BNP, BMP #### [facility] [address] [place] [address] Chronometer Adjuster: Bret Vazquez MD Performed By: #### E RTPFRANDOLPHLTEG #### [facility] [address] [place] [address] Chronometer Adjuster: Bret Vazquez MD Hemoglobin (Bld) [Mass/Vol] 7.6 g/dL Low 13.0-17.0 [facility] Comment on above: Performed By: #### I OCAL, CDP, MG, LACTIC, YVROSE, BNP, BMP #### [facility] [address] [place] [address] Chronometer Adjuster: Bret Vazquez MD Performed By: #### E RTPFRANDOLPHLTEG #### [facility] [address] [place] [address] Chronometer Adjuster: Bret Vazquez MD Immature granulocytes/100 WBC (Bld) 1 % High 0 [facility] Comment on above: Performed By: #### I OCAL, CDP, MG, LACTIC, YVROSE, BNP, BMP #### [facility] [address] [place] [address] Chronometer Adjuster: Bret Vazquez MD Performed By: #### E RTPF GHLTEG #### [facility] [address] [place] [address] Chronometer Adjuster: Bret Vazquez MD Lymphocytes (Bld) [#/Vol] 2.01 10*3/uL Normal 1.10-3.70 [facility] Comment on above: Performed By: #### I OCAL, CDP, MG, LACTIC, YVROSE, BNP, BMP #### [facility] [address] [place] [address] Chronometer Adjuster: Bret Vazquez MD Performed By: #### E RTPF GHLTEG #### [facility] [address] [place] [address] Chronometer Adjuster: Bret Vazquez MD Lymphocytes/100 WBC (Bld) 31 % Normal 24-43 [facility] Comment on above: Performed By: #### I OCAL, CDP, MG, LACTIC, YVROSE, BNP, BMP #### [facility] [address] [place] [address] Chronometer Adjuster: Bret Vazquez MD Performed By: #### E RTPF GHLTEG #### [address] [address] Chronometer Adjuster: Bret Vazquez MD MCH (RBC) [Entitic mass] 31.7 pg Normal 25.2-33.5 [facility] Comment on above: Performed By: #### I OCAL, CDP, MG, LACTIC, YVROSE, BNP, BMP #### [address] [address] Chronometer Adjuster: Bret Vazquez MD Performed By: #### E RTCHRISTY HIGGINS #### [address] [address] Chronometer Adjuster: Bret Vazquez MD MCHC (RBC) [Mass/Vol] 30.2 g/dL Normal 28.4-34.8 [facility] Comment on above: Performed By: #### I OCAL, CDP, MG, LACTIC, YVROSE, BNP, BMP #### [address] [address] Chronometer Adjuster: Bret Vazquez MD Performed By: #### Isidro RTCHRISTY HIGGINS #### [address] [address] Chronometer Adjuster: Bret Vazquez MD MCV (RBC) [Entitic vol] 105.0 fL High 82.6-102.9 [facility] Comment on above: Performed By: #### I OCAL, CDP, MG, LACTIC, YVROSE, BNP, BMP #### [address] [address] Chronometer Adjuster: Bret Vazquez MD Performed By: #### E RTCHRISTY HIGGINS #### [address] [address] Chronometer Adjuster: Bret Vazquez MD Monocytes (Bld) [#/Vol] 0.62 10*3/uL Normal 0.10-1.20 [facility] Comment on above: Performed By: #### I OCAL, CDP, MG, LACTIC, YVROSE, BNP, BMP #### [address] [address] Chronometer Adjuster: Bret Vazquez MD Performed By: #### E RTPFRANDOLPHLTEG #### [address] [address] Chronometer Adjuster: Bret Vazquez MD Monocytes/100 WBC (Bld) 10 % Normal 3-12 [facility] Comment on above: Performed By: #### I OCAL, CDP, MG, LACTIC, YVROSE, BNP, BMP #### [address] [address] Chronometer Adjuster: Bret Vazquez MD Performed By: #### E RTPFRANDOLPHLTEG #### [address] [address] Chronometer Adjuster: Bret Vazquez MD Neutrophil (Seg) 53 % Normal 36-65 [facility] Comment on above: Performed By: #### I OCAL, CDP, MG, LACTIC, YVROSE, BNP, BMP #### [address] [address] Chronometer Adjuster: Bret Vazquez MD Performed By: #### E RTPF GHLTEG #### [address] [address] Chronometer Adjuster: Bret Vazquez MD NRBC Automated 0.0 per 100 WBC Normal 0.0 [facility] Comment on above: Performed By: #### I OCAL, CDP, MG, LACTIC, YVROSE, BNP, BMP #### [address] [address] Chronometer Adjuster: Bret Vazquez MD Performed By: #### E RTPF, GHLTEG #### [address] [address] Chronometer Adjuster: Bret Vazquez MD Platelet mean volume (Bld) [Entitic vol] 10.3 fL Normal 8.1-13.5 [facility] Comment on above: Performed By: #### I OCAL, CDP, MG, LACTIC, YVROSE, BNP, BMP #### [address] [address] Chronometer Adjuster: Bret Vazquez MD Performed By: #### E RTPFKLARISSAEG #### [address] [address] Chronometer Adjuster: Bret Vazquez MD Platelets (Bld) [#/Vol] 245 10*3/uL Normal 138-453 [facility] Comment on above: Performed By: #### I OCAL, CDP, MG, LACTIC, YVROSE, BNP, BMP #### [address] [address] Chronometer Adjuster: Bret Vazquez MD Performed By: #### E RTCHRISTY HIGGINS #### [address] [address] Chronometer Adjuster: Bret Vazquez MD RBC (Bld) [#/Vol] 2.40 10*6/uL Low 4.21-5.77 [facility] Comment on above: Performed By: #### I OCAL, CDP, MG, LACTIC, YVROSE, BNP, BMP #### [address] [address] Chronometer Adjuster: Bret Vazquez MD Performed By: #### E RTCHRISTY HIGGINS #### [address] [address] Chronometer Adjuster: Bret Vazquez MD RBC morphology finding Nom (Bld) ANISOCYTOSIS PRESENT Normal [facility] Comment on above: Result Comment: MACR OCYTOSIS PRESENT Performed By: #### I OCAL, CDP, MG, LACTIC, YVROSE, BNP, BMP #### [address] [address] Chronometer Adjuster: Bret Vazquez MD Performed By: #### E RTPFRANDOLPHLTEG #### [address] [address] Chronometer Adjuster: Bret Vazquez MD WBC (Bld) [#/Vol] 6.5 10*3/uL Normal 3.5-11.3 [facility] Comment on above: Performed By: #### I OCAL, CDP, MG, LACTIC, YVROSE, BNP, BMP #### [address] [address] Chronometer Adjuster: Bret Vazquez MD Performed By: #### E RTPFRANDOLPHLTEG #### [address] [address] Chronometer Adjuster: Bret Vazquez MD Basic Metab w/rfx MGon 09-09 Anion gap [Moles/Vol] 6 mmol/L Low 9-17 [facility] Comment on above: Performed By: #### B MPX, CDP #### [address] [address] Chronometer Adjuster: Bret Vazquez MD Performed By: #### E RTPF, CK, ECENZ, VD25 #### [address] [address] Chronometer Adjuster: Bret Vazquez MD Calcium [Mass/Vol] 7.5 mg/dL Low 8.6-10.4 [facility] Comment on above: Performed By: #### B MPX, CDP #### [address] [address] Chronometer Adjuster: Bret Vazquez MD Performed By: #### E RTPF, CK, ECENZ, VD25 #### [address] [address] Chronometer Adjuster: Bret Vazquez MD Chloride [Moles/Vol] 109 mmol/L High 98-107 [facility] Comment on above: Performed By: #### B MPX, CDP #### [address] [address] Chronometer Adjuster: Bret Vazquez MD Performed By: #### E RTPF, CK, ECENZ, VD25 #### [address] [address] Chronometer Adjuster: Bret Vazuqez MD CO2 [Moles/Vol] 25 mmol/L Normal 20-31 [facility] Comment on above: Performed By: #### B MPX, CDP #### [address] [address] Chronometer Adjuster: Bret Vazquez MD Performed By: #### E RTPF, CK, ECENZ, VD25 #### [address] [address] Chronometer Adjuster: Bret Vazquez MD Creatinine [Mass/Vol] 0.63 mg/dL Low 0.70-1.20 [facility] Comment on above: Performed By: #### B MPX, CDP #### [address] [address] Chronometer Adjuster: Bret Vazquez MD Performed By: #### E RTPF, CK, ECENZ, VD25 #### [address] [address] Chronometer Adjuster: Bret Vazquez MD GFR/1.73 sq M.predicted among non-blacks MDRD (S/P/Bld) [Vol rate/Area] mL/min/{1.73_m2} Normal >60 [facility] Comment on above: Result Comment: Effective [...] Performed By: #### B MPX, CDP #### [address] [address] Chronometer Adjuster: Bret Vazquez MD Performed By: #### E RTPF, CK, ECENZ, VD25 #### [facility] [address] [place] [address] Chronometer Adjuster: Bret Vazquez MD Glucose [Mass/Vol] 88 mg/dL Normal 70-99 [facility] Comment on above: Performed By: #### B MPX, CDP #### [address] [address] Chronometer Adjuster: Bret Vazquez MD Performed By: #### E RTPF, CK, ECENZ, VD25 #### [facility] [address] [place] [address] Chronometer Adjuster: Bret Vazquez MD Potassium [Moles/Vol] 4.3 mmol/L Normal 3.7-5.3 [facility] Comment on above: Performed By: #### B MPX, CDP #### [address] [address] Chronometer Adjuster: Bret Vazquez MD Performed By: #### E RTPF, CK, ECENZ, VD25 #### [facility] [address] [place] [address] Chronometer Adjuster: Bret Vazquez MD Sodium [Moles/Vol] 140 mmol/L Normal 135-144 [facility] Comment on above: Performed By: #### B MPX, CDP #### [facility] [address] [place] [address] Chronometer Adjuster: Bret Vazquez MD Performed By: #### E RTPF, CK, ECENZ, VD25 #### [address] [address] Chronometer Adjuster: Bret Vazquez MD Urea nitrogen [Mass/Vol] 16 mg/dL Normal 8-23 [facility] Comment on above: Performed By: #### B MPX, CDP #### [place] [address] Chronometer Adjuster: Bret Vazquez MD Performed By: #### E RTPF, CK, ECENZ, VD25 #### [place] [address] Chronometer Adjuster: Bret Vazquez MD CBC with Diffon 09-09-2022 Abs. Basophil 0.09 k/uL Normal 0.00-0.20 [facility] Comment on above: Performed By: #### B MPX, CDP #### [place] [address] Chronometer Adjuster: Bret Vazquez MD Performed By: #### E RTPF, CK, ECENZ, VD25 #### [place] [address] Chronometer Adjuster: Bret Vazquez MD Abs.Imm.Granulocyte 0.03 k/uL Normal 0.00-0.30 [facility] Comment on above: Performed By: #### B MPX, CDP #### [address] [address] Chronometer Adjuster: Bret Vazquez MD Performed By: #### E RTPF, CK, ECENZ, VD25 #### [facility] [address] [place] [address] Chronometer Adjuster: Bret Vazquez MD Abs.Neutrophil (Seg) 4.61 k/uL Normal 1.50-8.10 [facility] Comment on above: Performed By: #### B MPX, CDP #### [address] [address] Chronometer Adjuster: Bret Vazquez MD Performed By: #### E RTPF, CK, ECENZ, VD25 #### [address] [address] Chronometer Adjuster: Bret Vazquez MD Basophils/100 WBC (Bld) 1 % Normal 0-2 [facility] Comment on above: Performed By: #### B MPX, CDP #### [address] [address] Chronometer Adjuster: Bret Vazquez MD Performed By: #### E RTPF, CK, ECENZ, VD25 #### [address] [address] Chronometer Adjuster: Bret Vazquez MD Eosinophils (Bld) [#/Vol] 0.40 10*3/uL Normal 0.00-0.44 [facility] Comment on above: Performed By: #### B MPX, CDP #### [address] [address] Chronometer Adjuster: Bret Vazquez MD Performed By: #### E RTPF, CK, ECENZ, VD25 #### [address] [address] Chronometer Adjuster: Bret Vazquez MD Eosinophils/100 WBC (Bld) 5 % High 1-4 [facility] Comment on above: Performed By: #### B MPX, CDP #### [address] [address] Chronometer Adjuster: Bret Vazquez MD Performed By: #### E RTPF, CK, ECENZ, VD25 #### [address] [address] Chronometer Adjuster: Bret Vazquez MD Erythrocyte distribution width (RBC) [Ratio] 16.2 % High 11.8-14.4 [facility] Comment on above: Performed By: #### B MPX, CDP #### [facility] [address] [place] [address] Chronometer Adjuster: Bret Vazquez MD Performed By: #### E RTPF, CK, ECENZ, VD25 #### [facility] [address] [place] [address] Chronometer Adjuster: Bret Vazquez MD Hematocrit (Bld) [Volume fraction] 22.3 % Low 40.7-50.3 [facility] Comment on above: Performed By: #### B MPX, CDP #### [facility] [address] [place] [address] Chronometer Adjuster: Bret Vazquez MD Performed By: #### E RTPF, CK, ECENZ, VD25 #### [facility] [address] [place] [address] Chronometer Adjuster: Bret Vazquez MD Hemoglobin (Bld) [Mass/Vol] 7.5 g/dL Low 13.0-17.0 [facility] Comment on above: Performed By: #### B MPX, CDP #### [facility] [address] [place] [address] Chronometer Adjuster: Bret Vazquez MD Performed By: #### E RTPF, CK, ECENZ, VD25 #### [facility] [address] [place] [address] Chronometer Adjuster: Bret Vazquez MD Immature granulocytes/100 WBC (Bld) 0 % Normal 0 [facility] Comment on above: Performed By: #### B MPX, CDP #### [facility] [address] [place] [address] Chronometer Adjuster: Bret Vazquez MD Performed By: #### E RTPF, CK, ECENZ, VD25 #### [address] [address] Chronometer Adjuster: Bret Vazquez MD Lymphocytes (Bld) [#/Vol] 1.88 10*3/uL Normal 1.10-3.70 [facility] Comment on above: Performed By: #### B MPX, CDP #### [address] [address] Chronometer Adjuster: Bret Vazquez MD Performed By: #### E RTPF, CK, ECENZ, VD25 #### [address] [address] Chronometer Adjuster: Bret Vazquez MD Lymphocytes/100 WBC (Bld) 24 % Normal 24-43 [facility] Comment on above: Performed By: #### B MPX, CDP #### [address] [address] Chronometer Adjuster: Bret Vazquez MD Performed By: #### E RTPF, CK, ECENZ, VD25 #### [address] [address] Chronometer Adjuster: Bret Vazquez MD MCH (RBC) [Entitic mass] 31.8 pg Normal 25.2-33.5 [facility] Comment on above: Performed By: #### B MPX, CDP #### [address] [address] Chronometer Adjuster: Bret Vazquez MD Performed By: #### E RTPF, CK, ECENZ, VD25 #### [address] [address] Chronometer Adjuster: Bret Vazquez MD MCHC (RBC) [Mass/Vol] 33.6 g/dL Normal 28.4-34.8 [facility] Comment on above: Performed By: #### B MPX, CDP #### [facility] [address] [place] [address] Chronometer Adjuster: Bret Vazquez MD Performed By: #### E RTPF, CK, ECENZ, VD25 #### [address] [address] Chronometer Adjuster: Bret Vazquez MD MCV (RBC) [Entitic vol] 94.5 fL Normal 82.6-102.9 [facility] Comment on above: Performed By: #### B MPX, CDP #### [address] [address] Chronometer Adjuster: Bret Vazquez MD Performed By: #### E RTPF, CK, ECENZ, VD25 #### [address] [address] Chronometer Adjuster: Bret Vazquez MD Monocytes (Bld) [#/Vol] 0.84 10*3/uL Normal 0.10-1.20 [facility] Comment on above: Performed By: #### B MPX, CDP #### [address] [address] Chronometer Adjuster: Bret Vazquez MD Performed By: #### E RTPF, CK, ECENZ, VD25 #### [address] [address] Chronometer Adjuster: Bret Vazquez MD Monocytes/100 WBC (Bld) 11 % Normal 3-12 [facility] Comment on above: Performed By: #### B MPX, CDP #### [address] [address] Chronometer Adjuster: Bret Vazquez MD Performed By: #### E RTPF, CK, ECENZ, VD25 #### [address] [address] Chronometer Adjuster: Bret Vazquez MD Neutrophil (Seg) 59 % Normal 36-65 [facility] Comment on above: Performed By: #### B MPX, CDP #### [address] [address] Chronometer Adjuster: Bret Vazquez MD Performed By: #### E RTPF, CK, ECENZ, VD25 #### [address] [address] Chronometer Adjuster: Bret Vazquez MD NRBC Automated 0.0 per 100 WBC Normal 0.0 [facility] Comment on above: Performed By: #### B MPX, CDP #### [address] [address] Chronometer Adjuster: Bret Vazquez MD Performed By: #### E RTPF, CK, ECENZ, VD25 #### [address] [address] Chronometer Adjuster: Bret Vazquez MD Platelet mean volume (Bld) [Entitic vol] 10.5 fL Normal 8.1-13.5 [facility] Comment on above: Performed By: #### B MPX, CDP #### [address] [address] Chronometer Adjuster: Bret Vazquez MD Performed By: #### E RTPF, CK, ECENZ, VD25 #### [address] [address] Chronometer Adjuster: Bret Vazquez MD Platelets (Bld) [#/Vol] 185 10*3/uL Normal 138-453 [facility] Comment on above: Performed By: #### B MPX, CDP #### [address] [address] Chronometer Adjuster: Bret Vazquez MD Performed By: #### E RTPF, CK, ECENZ, VD25 #### [address] [address] Chronometer Adjuster: Bret Vazquez MD RBC (Bld) [#/Vol] 2.36 10*6/uL Low 4.21-5.77 [facility] Comment on above: Performed By: #### B MPX, CDP #### [address] [address] Chronometer Adjuster: Bret Vazquez MD Performed By: #### E RTPF, CK, ECENZ, VD25 #### [address] [address] Chronometer Adjuster: Bret Vazquez MD RBC morphology finding Nom (Bld) ANISOCYTOSIS PRESENT Normal [facility] Comment on above: Performed By: #### B MPX, CDP #### [address] [address] Chronometer Adjuster: Bret Vazquez MD Performed By: #### E RTPF, CK, ECENZ, VD25 #### [address] [address] Chronometer Adjuster: Bret Vazquez MD WBC (Bld) [#/Vol] 7.9 10*3/uL Normal 3.5-11.3 [facility] Comment on above: Performed By: #### B MPX, CDP #### [address] [address] Chronometer Adjuster: Bret Vazqeuz MD Performed By: #### E RTPF, CK, ECENZ, VD25 #### [address] [address] Chronometer Adjuster: Bret Vazquez MD Basic Metab w/rfx MGon 09-08 Anion gap [Moles/Vol] 4 mmol/L Low 9-17 [facility] Comment on above: Performed By: #### I OCAL, CDP, MG, LACTIC, YVROSE, BNP, BMP #### [address] [place] [address] Chronometer Adjuster: Bret Vazquez MD Performed By: #### E RTPF, CK, ECENZ, VD25 #### [address] [address] Chronometer Adjuster: Bret Vazquez MD Calcium [Mass/Vol] 7.5 mg/dL Low 8.6-10.4 [facility] Comment on above: Performed By: #### I OCAL, CDP, MG, LACTIC, YVROSE, BNP, BMP #### [facility] [address] [place] [address] Chronometer Adjuster: Bret Vazquez MD Performed By: #### E RTPF, CK, ECENZ, VD25 #### [address] [address] Chronometer Adjuster: Bret Vazquez MD Chloride [Moles/Vol] 105 mmol/L Normal 98-107 [facility] Comment on above: Performed By: #### I OCAL, CDP, MG, LACTIC, YVROSE, BNP, BMP #### [address] [address] Chronometer Adjuster: Bret Vazquez MD Performed By: #### E RTPF, CK, ECENZ, VD25 #### [address] [address] Chronometer Adjuster: Bret Vazquez MD CO2 [Moles/Vol] 26 mmol/L Normal 20-31 [facility] Comment on above: Performed By: #### I OCAL, CDP, MG, LACTIC, YVROSE, BNP, BMP #### [address] [address] Chronometer Adjuster: Bret Vazquez MD Performed By: #### E RTPF, CK, ECENZ, VD25 #### [facility] [address] [place] [address] Chronometer Adjuster: Bret Vazquez MD Creatinine [Mass/Vol] 0.80 mg/dL Normal 0.70-1.20 [facility] Comment on above: Performed By: #### I OCAL, CDP, MG, LACTIC, YVROSE, BNP, BMP #### [address] [address] Chronometer Adjuster: Bret Vazquez MD Performed By: #### E RTPF, CK, ECENZ, VD25 #### [address] [address] Chronometer Adjuster: Bret Vazquez MD GFR/1.73 sq M.predicted among non-blacks MDRD (S/P/Bld) [Vol rate/Area] mL/min/{1.73_m2} Normal >60 [facility] Comment on above: Result Comment: Effective [...] By: #### I OCAL, CDP, MG, LACTIC, YVROSE, BNP, BMP #### [address] [address] Chronometer Adjuster: Bret Vazquez MD Performed By: #### E RTPF, CK, ECENZ, VD25 #### [facility] [address] [place] [address] Chronometer Adjuster: Bret Vazquez MD Glucose [Mass/Vol] 93 mg/dL Normal 70-99 [facility] Comment on above: Performed By: #### I OCAL, CDP, MG, LACTIC, YVROSE, BNP, BMP #### [address] [id number] Chronometer Adjuster: Bret Vazquez MD Performed By: #### E RTPF, CK, ECENZ, VD25 #### [address] [address] Chronometer Adjuster: Bret Vazquez MD Potassium [Moles/Vol] 4.5 mmol/L Normal 3.7-5.3 [facility] Comment on above: Performed By: #### I OCAL, CDP, MG, LACTIC, YVROSE, BNP, BMP #### [address] [address] Chronometer Adjuster: Bret Vazquez MD Performed By: #### E RTPF, CK, ECENZ, VD25 #### [address] [address] Chronometer Adjuster: Bret Vazquez MD Sodium [Moles/Vol] 135 mmol/L Normal 135-144 [facility] Comment on above: Performed By: #### I OCAL, CDP, MG, LACTIC, YVROSE, BNP, BMP #### [address] [address] Chronometer Adjuster: Bret Vazquez MD Performed By: #### E RTPF, CK, ECENZ, VD25 #### [address] [address] Chronometer Adjuster: Bret Vazquez MD Urea nitrogen [Mass/Vol] 16 mg/dL Normal 8-23 [facility] Comment on above: Performed By: #### I OCAL, CDP, MG, LACTIC, YVROSE, BNP, BMP #### [address] [address] Chronometer Adjuster: Bret Vazquez MD Performed By: #### E RTPF, CK, ECENZ, VD25 #### [address] [address] Chronometer Adjuster: Bret Vazquez MD CBC with Diffon 09-08-2022 Abs. Basophil 0.04 k/uL Normal 0.00-0.20 [facility] Comment on above: Performed By: #### I OCAL, CDP, MG, LACTIC, YVROSE, BNP, BMP #### [address] [address] Chronometer Adjuster: Bret Vazquez MD Performed By: #### E RTPF, CK, ECENZ, VD25 #### [address] [address] Chronometer Adjuster: Bret Vazquez MD Abs.Imm.Granulocyte 0.03 k/uL Normal 0.00-0.30 [facility] Comment on above: Performed By: #### I OCAL, CDP, MG, LACTIC, YVROSE, BNP, BMP #### [address] [address] Chronometer Adjuster: Bret Vazquez MD Performed By: #### E RTPF, CK, ECENZ, VD25 #### [place] [address] Chronometer Adjuster: Bret Vazquez MD Abs.Neutrophil (Seg) 4.96 k/uL Normal 1.50-8.10 [facility] Comment on above: Performed By: #### I OCAL, CDP, MG, LACTIC, YVROSE, BNP, BMP #### [place] [address] Chronometer Adjuster: Bret Vazquez MD Performed By: #### E RTPF, CK, ECENZ, VD25 #### [address] [address] Chronometer Adjuster: Bret Vazquez MD Basophils/100 WBC (Bld) 1 % Normal 0-2 [facility] Comment on above: Performed By: #### I OCAL, CDP, MG, LACTIC, YVROSE, BNP, BMP #### [address] [address] Chronometer Adjuster: Bret Vazquez MD Performed By: #### E RTPF, CK, ECENZ, VD25 #### [address] [address] Chronometer Adjuster: Bret Vazquez MD Eosinophils (Bld) [#/Vol] 0.21 10*3/uL Normal 0.00-0.44 [facility] Comment on above: Performed By: #### I OCAL, CDP, MG, LACTIC, YVROSE, BNP, BMP #### [facility] [address] [place] [address] Chronometer Adjuster: Bret Vazquez MD Performed By: #### E RTPF, CK, ECENZ, VD25 #### [facility] [address] [place] [address] Chronometer Adjuster: Bret Vazquez MD Eosinophils/100 WBC (Bld) 3 % Normal 1-4 [facility] Comment on above: Performed By: #### I OCAL, CDP, MG, LACTIC, YVROSE, BNP, BMP #### [facility] [address] [place] [address] Chronometer Adjuster: Bret Vazquez MD Performed By: #### E RTPF, CK, ECENZ, VD25 #### [facility] [address] [place] [address] Chronometer Adjuster: Bret Vazquez MD Erythrocyte distribution width (RBC) [Ratio] 16.4 % High 11.8-14.4 [facility] Comment on above: Performed By: #### I OCAL, CDP, MG, LACTIC, YVROSE, BNP, BMP #### [facility] [address] [place] [address] Chronometer Adjuster: Bret Vazquez MD Performed By: #### E RTPF, CK, ECENZ, VD25 #### [facility] [address] [place] [address] Chronometer Adjuster: Bret Vazquez MD Hematocrit (Bld) [Volume fraction] 22.9 % Low 40.7-50.3 [facility] Comment on above: Performed By: #### I OCAL, CDP, MG, LACTIC, YVROSE, BNP, BMP #### [facility] [address] [place] [address] Chronometer Adjuster: Bret Vazquez MD Performed By: #### E RTPF, CK, ECENZ, VD25 #### [facility] [address] [place] [address] Chronometer Adjuster: Bret Vazquez MD Hemoglobin (Bld) [Mass/Vol] 7.5 g/dL Low 13.0-17.0 [facility] Comment on above: Performed By: #### I OCAL, CDP, MG, LACTIC, YVROSE, BNP, BMP #### [facility] [address] [place] [address] Chronometer Adjuster: Bret Vazquez MD Performed By: #### E RTPF, CK, ECENZ, VD25 #### [facility] [address] [place] [address] Chronometer Adjuster: Bret Vazquez MD Immature granulocytes/100 WBC (Bld) 0 % Normal 0 [facility] Comment on above: Performed By: #### I OCAL, CDP, MG, LACTIC, YVROSE, BNP, BMP #### [facility] [address] [place] [address] Chronometer Adjuster: Bret Vazquez MD Performed By: #### E RTPF, CK, ECENZ, VD25 #### [facility] [address] [place] [address] Chronometer Adjuster: Bret Vazquez MD Lymphocytes (Bld) [#/Vol] 1.39 10*3/uL Normal 1.10-3.70 [facility] Comment on above: Performed By: #### I OCAL, CDP, MG, LACTIC, YVROSE, BNP, BMP #### [facility] [address] [place] [address] Chronometer Adjuster: Bret Vazquez MD Performed By: #### E RTPF, CK, ECENZ, VD25 #### [address] [address] Chronometer Adjuster: Bret Vazquez MD Lymphocytes/100 WBC (Bld) 19 % Low 24-43 [facility] Comment on above: Performed By: #### I OCAL, CDP, MG, LACTIC, YVROSE, BNP, BMP #### [address] [address] Chronometer Adjuster: Bret Vazquez MD Performed By: #### E RTPF, CK, ECENZ, VD25 #### [address] [address] Chronometer Adjuster: Bret Vazquez MD MCH (RBC) [Entitic mass] 31.4 pg Normal 25.2-33.5 [facility] Comment on above: Performed By: #### I OCAL, CDP, MG, LACTIC, YVROSE, BNP, BMP #### [address] [address] Chronometer Adjuster: Bret Vazquez MD Performed By: #### E RTPF, CK, ECENZ, VD25 #### [address] [address] Chronometer Adjuster: Bret Vazquez MD MCHC (RBC) [Mass/Vol] 32.8 g/dL Normal 28.4-34.8 [facility] Comment on above: Performed By: #### I OCAL, CDP, MG, LACTIC, YVROSE, BNP, BMP #### [address] [address] Chronometer Adjuster: Bret Vazquez MD Performed By: #### E RTPF, CK, ECENZ, VD25 #### [facility] [address] [place] [address] Chronometer Adjuster: Bret Vazquez MD MCV (RBC) [Entitic vol] 95.8 fL Normal 82.6-102.9 [facility] Comment on above: Performed By: #### I OCAL, CDP, MG, LACTIC, YVROSE, BNP, BMP #### [address] [address] Chronometer Adjuster: Bret Vazquez MD Performed By: #### E RTPF, CK, ECENZ, VD25 #### [address] [address] Chronometer Adjuster: Bret Vazquez MD Monocytes (Bld) [#/Vol] 0.88 10*3/uL Normal 0.10-1.20 [facility] Comment on above: Performed By: #### I OCAL, CDP, MG, LACTIC, YVROSE, BNP, BMP #### [address] [address] Chronometer Adjuster: Bret Vazquez MD Performed By: #### E RTPF, CK, ECENZ, VD25 #### [address] [address] Chronometer Adjuster: Bret Vazquez MD Monocytes/100 WBC (Bld) 12 % Normal 3-12 [facility] Comment on above: Performed By: #### I OCAL, CDP, MG, LACTIC, YVROSE, BNP, BMP #### [address] [address] Chronometer Adjuster: Bret Vazquez MD Performed By: #### E RTPF, CK, ECENZ, VD25 #### [address] [address] Chronometer Adjuster: Bret Vazquez MD Neutrophil (Seg) 66 % High 36-65 [facility] Comment on above: Performed By: #### I OCAL, CDP, MG, LACTIC, YVROSE, BNP, BMP #### [address] [address] Chronometer Adjuster: Bret Vazquez MD Performed By: #### E RTPF, CK, ECENZ, VD25 #### [address] [address] Chronometer Adjuster: Bret Vazquez MD NRBC Automated 0.0 per 100 WBC Normal 0.0 [facility] Comment on above: Performed By: #### I OCAL, CDP, MG, LACTIC, YVROSE, BNP, BMP #### [address] [address] Chronometer Adjuster: Bret Vazquez MD Performed By: #### E RTPF, CK, ECENZ, VD25 #### [address] [address] Chronometer Adjuster: Bret Vazquez MD Platelet mean volume (Bld) [Entitic vol] 10.8 fL Normal 8.1-13.5 [facility] Comment on above: Performed By: #### I OCAL, CDP, MG, LACTIC, YVROSE, BNP, BMP #### [address] [address] Chronometer Adjuster: Bret Vazquez MD Performed By: #### E RTPF, CK, ECENZ, VD25 #### [address] [address] Chronometer Adjuster: Bret Vazquez MD Platelets (Bld) [#/Vol] 162 10*3/uL Normal 138-453 [facility] Comment on above: Performed By: #### I OCAL, CDP, MG, LACTIC, YVROSE, BNP, BMP #### [address] [address] Chronometer Adjuster: Bret Vazquez MD Performed By: #### E RTPF, CK, ECENZ, VD25 #### [address] [address] Chronometer Adjuster: Bret Vazquez MD RBC (Bld) [#/Vol] 2.39 10*6/uL Low 4.21-5.77 [facility] Comment on above: Performed By: #### I OCAL, CDP, MG, LACTIC, YVROSE, BNP, BMP #### [address] [address] Chronometer Adjuster: Bret Vazquez MD Performed By: #### E RTPF, CK, ECENZ, VD25 #### [address] [address] Chronometer Adjuster: Bret Vazquez MD RBC morphology finding Nom (Bld) ANISOCYTOSIS PRESENT Normal [facility] Comment on above: Performed By: #### I OCAL, CDP, MG, LACTIC, YVROSE, BNP, BMP #### [address] [address] Chronometer Adjuster: Bret Vazquez MD Performed By: #### E RTPF, CK, ECENZ, VD25 #### [address] [address] Chronometer Adjuster: Bret Vazquez MD WBC (Bld) [#/Vol] 7.5 10*3/uL Normal 3.5-11.3 [facility] Comment on above: Performed By: #### I OCAL, CDP, MG, LACTIC, YVROSE, BNP, BMP #### [address] [address] Chronometer Adjuster: Bret Vazquez MD Performed By: #### E RTPF, CK, ECENZ, VD25 #### [address] [address] Chronometer Adjuster: Bret Vazquez MD Magnesiumon 09-08-2022 Magnesium [Mass/Vol] 1.9 mg/dL Normal 1.6-2.6 [facility] Comment on above: Performed By: #### I OCAL, CDP, MG, LACTIC, YVROSE, BNP, BMP #### [facility] [address] [place] [address] Chronometer Adjuster: Bret Vazquez MD Performed By: #### E RTPF, CK, ECENZ, VD25 #### [facility] [address] [place] [address] Chronometer Adjuster: Bret Vazquez MD Basic Metab w/rfx MGon 09-07 Anion gap [Moles/Vol] 7 mmol/L Low 9-17 [facility] Comment on above: Performed By: #### I OCAL, CDP, MG, LACTIC, YVORSE, BNP, BMP #### [facility] [address] [place] [address] Chronometer Adjuster: Bret Vazquez MD Performed By: #### E RTPF, CK, ECENZ, VD25 #### [facility] [address] [place] [address] Chronometer Adjuster: Bret Vazquez MD Calcium [Mass/Vol] 7.7 mg/dL Low 8.6-10.4 [facility] Comment on above: Performed By: #### I OCAL, CDP, MG, LACTIC, YVROSE, BNP, BMP #### [facility] [address] [place] [address] Chronometer Adjuster: Bret Vazquez MD Performed By: #### E RTPF, CK, ECENZ, VD25 #### [facility] [address] [place] [address] Chronometer Adjuster: Bret Vazquez MD Chloride [Moles/Vol] 103 mmol/L Normal 98-107 [facility] Comment on above: Performed By: #### I OCAL, CDP, MG, LACTIC, YVROSE, BNP, BMP #### [facility] [address] [place] [address] Chronometer Adjuster: Bret Vazquez MD Performed By: #### E RTPF, CK, ECENZ, VD25 #### [address] [address] Chronometer Adjuster: Bret Vazquez MD CO2 [Moles/Vol] 22 mmol/L Normal 20-31 [facility] Comment on above: Performed By: #### I OCAL, CDP, MG, LACTIC, YVROSE, BNP, BMP #### [address] [address] Chronometer Adjuster: Bret Vazquez MD Performed By: #### E RTPF, CK, ECENZ, VD25 #### [address] [address] Chronometer Adjuster: Bret Vazquez MD Creatinine [Mass/Vol] 0.62 mg/dL Low 0.70-1.20 [facility] Comment on above: Performed By: #### I OCAL, CDP, MG, LACTIC, YVROSE, BNP, BMP #### [address] [address] Chronometer Adjuster: Bret Vazquez MD Performed By: #### E RTPF, CK, ECENZ, VD25 #### [address] [address] Chronometer Adjuster: Bret Vazquez MD GFR/1.73 sq M.predicted among non-blacks MDRD (S/P/Bld) [Vol rate/Area] mL/min/{1.73_m2} Normal >60 [facility] Comment on above: Result Comment: Effective [...] By: #### I OCAL, CDP, MG, LACTIC, YVROSE, BNP, BMP #### [address] [address] Chronometer Adjuster: Bret Vazquez MD Performed By: #### E RTPF, CK, ECENZ, VD25 #### [facility] [address] [place] [address] Chronometer Adjuster: Bret Vazquez MD Glucose [Mass/Vol] 149 mg/dL High 70-99 [facility] Comment on above: Performed By: #### I OCAL, CDP, MG, LACTIC, YVROSE, BNP, BMP #### [address] [address] Chronometer Adjuster: Bret Vazquez MD Performed By: #### E RTPF, CK, ECENZ, VD25 #### [address] [address] Chronometer Adjuster: Bret Vazquez MD Potassium [Moles/Vol] 4.9 mmol/L Normal 3.7-5.3 [facility] Comment on above: Performed By: #### I OCAL, CDP, MG, LACTIC, YVROSE, BNP, BMP #### [address] [address] Chronometer Adjuster: Bret Vazquez MD Performed By: #### E RTPF, CK, ECENZ, VD25 #### [address] [address] Chronometer Adjuster: Bret Vazquez MD Sodium [Moles/Vol] 132 mmol/L Low 135-144 [facility] Comment on above: Performed By: #### I OCAL, CDP, MG, LACTIC, YVROSE, BNP, BMP #### [facility] [address] [place] [address] Chronometer Adjuster: Bret Vazquez MD Performed By: #### E RTPF, CK, ECENZ, VD25 #### [facility] [address] [place] [address] Chronometer Adjuster: Bret Vazquez MD Urea nitrogen [Mass/Vol] 13 mg/dL Normal 8-23 [facility] Comment on above: Performed By: #### I OCAL, CDP, MG, LACTIC, YVROSE, BNP, BMP #### [address] [address] Chronometer Adjuster: Bret Vazquez MD Performed By: #### E RTPF, CK, ECENZ, VD25 #### [place] [address] Chronometer Adjuster: Bret Vazquez MD CBC with Diffon 09-07-2022 Abs. Basophil <0.03 Normal 0.00-0.20 [facility] Comment on above: Performed By: #### I OCAL, CDP, MG, LACTIC, YVROSE, BNP, BMP #### [place] [address] Chronometer Adjuster: Bret Vazquez MD Performed By: #### E RTPF, CK, ECENZ, VD25 #### [place] [address] Chronometer Adjuster: Bret Vazquez MD Abs. Eosinophil <0.03 Normal 0.00-0.44 [facility] Comment on above: Performed By: #### I OCAL, CDP, MG, LACTIC, YVROSE, BNP, BMP #### [place] [address] Chronometer Adjuster: Bret Vazquez MD Performed By: #### E RTPF, CK, ECENZ, VD25 #### [facility] [address] [place] [address] Chronometer Adjuster: Bret Vazquez MD Abs.Imm.Granulocyte 0.05 k/uL Normal 0.00-0.30 [facility] Comment on above: Performed By: #### I OCAL, CDP, MG, LACTIC, YVROSE, BNP, BMP #### [address] [address] Chronometer Adjuster: Bret Vazquez MD Performed By: #### E RTPF, CK, ECENZ, VD25 #### [address] [address] Chronometer Adjuster: Bret Vazquez MD Abs.Neutrophil (Seg) 7.23 k/uL Normal 1.50-8.10 [facility] Comment on above: Performed By: #### I OCAL, CDP, MG, LACTIC, YVROSE, BNP, BMP #### [address] [address] Chronometer Adjuster: Bret Vazquez MD Performed By: #### E RTPF, CK, ECENZ, VD25 #### [address] [address] Chronometer Adjuster: Bret Vazquez MD Basophils/100 WBC (Bld) 0 % Normal 0-2 [facility] Comment on above: Performed By: #### I OCAL, CDP, MG, LACTIC, YVROSE, BNP, BMP #### [address] [address] Chronometer Adjuster: Bret Vazquez MD Performed By: #### E RTPF, CK, ECENZ, VD25 #### [address] [address] Chronometer Adjuster: Bret Vazquez MD Eosinophils/100 WBC (Bld) 0 % Low 1-4 [facility] Comment on above: Performed By: #### I OCAL, CDP, MG, LACTIC, YVROSE, BNP, BMP #### [address] [address] Chronometer Adjuster: Bret Vazquez MD Performed By: #### E RTPF, CK, ECENZ, VD25 #### [address] [address] Chronometer Adjuster: Bret Vazquez MD Erythrocyte distribution width (RBC) [Ratio] 16.4 % High 11.8-14.4 [facility] Comment on above: Performed By: #### I OCAL, CDP, MG, LACTIC, YVROSE, BNP, BMP #### [address] [address] Chronometer Adjuster: Bret Vazquez MD Performed By: #### E RTPF, CK, ECENZ, VD25 #### [facility] [address] [place] [address] Chronometer Adjuster: Bret Vazquez MD Hematocrit (Bld) [Volume fraction] 25.6 % Low 40.7-50.3 [facility] Comment on above: Performed By: #### I OCAL, CDP, MG, LACTIC, YVROSE, BNP, BMP #### [address] [address] Chronometer Adjuster: Bret Vazquez MD Performed By: #### E RTPF, CK, ECENZ, VD25 #### [address] [address] Chronometer Adjuster: Bret Vazquez MD Hemoglobin (Bld) [Mass/Vol] 7.6 g/dL Low 13.0-17.0 [facility] Comment on above: Performed By: #### I OCAL, CDP, MG, LACTIC, YVROSE, BNP, BMP #### [facility] [address] [place] [address] Chronometer Adjuster: Bret Vazquez MD Performed By: #### E RTPF, CK, ECENZ, VD25 #### [facility] [address] [place] [address] Chronometer Adjuster: Bret Vazquez MD Immature granulocytes/100 WBC (Bld) 1 % High 0 [facility] Comment on above: Performed By: #### I OCAL, CDP, MG, LACTIC, YVROSE, BNP, BMP #### [address] [address] Chronometer Adjuster: Bret Vazquez MD Performed By: #### E RTPF, CK, ECENZ, VD25 #### [facility] [address] [place] [address] Chronometer Adjuster: Bret Vazquez MD Lymphocytes (Bld) [#/Vol] 0.89 10*3/uL Low 1.10-3.70 [facility] Comment on above: Performed By: #### I OCAL, CDP, MG, LACTIC, YVROSE, BNP, BMP #### [facility] [address] [place] [address] Chronometer Adjuster: Bret Vazquez MD Performed By: #### E RTPF, CK, ECENZ, VD25 #### [address] [address] Chronometer Adjuster: Bret Vazquez MD Lymphocytes/100 WBC (Bld) 10 % Low 24-43 [facility] Comment on above: Performed By: #### I OCAL, CDP, MG, LACTIC, YVROSE, BNP, BMP #### [facility] [address] [place] [address] Chronometer Adjuster: Bret Vazquez MD Performed By: #### E RTPF, CK, ECENZ, VD25 #### [facility] [address] [place] [address] Chronometer Adjuster: Bret Vazquez MD MCH (RBC) [Entitic mass] 31.7 pg Normal 25.2-33.5 [facility] Comment on above: Performed By: #### I OCAL, CDP, MG, LACTIC, YVROSE, BNP, BMP #### [facility] [address] [place] [address] Chronometer Adjuster: Bret Vazquez MD Performed By: #### E RTPF, CK, ECENZ, VD25 #### [address] [address] Chronometer Adjuster: Bret Vazquez MD MCHC (RBC) [Mass/Vol] 29.7 g/dL Normal 28.4-34.8 [facility] Comment on above: Performed By: #### I OCAL, CDP, MG, LACTIC, YVROSE, BNP, BMP #### [address] [address] Chronometer Adjuster: Bret Vazquez MD Performed By: #### E RTPF, CK, ECENZ, VD25 #### [address] [address] Chronometer Adjuster: Bret Vazquez MD MCV (RBC) [Entitic vol] 106.7 fL High 82.6-102.9 [facility] Comment on above: Performed By: #### I OCAL, CDP, MG, LACTIC, YVROSE, BNP, BMP #### [address] [address] Chronometer Adjuster: Bret Vazquez MD Performed By: #### E RTPF, CK, ECENZ, VD25 #### [place] [address] Chronometer Adjuster: Bret Vazquez MD Monocytes (Bld) [#/Vol] 1.00 10*3/uL Normal 0.10-1.20 [facility] Comment on above: Performed By: #### I OCAL, CDP, MG, LACTIC, YVROSE, BNP, BMP #### [address] [address] Chronometer Adjuster: Bret Vazquez MD Performed By: #### E RTPF, CK, ECENZ, VD25 #### [address] [address] Chronometer Adjuster: Bret Vazquez MD Monocytes/100 WBC (Bld) 11 % Normal 3-12 [facility] Comment on above: Performed By: #### I OCAL, CDP, MG, LACTIC, YVROSE, BNP, BMP #### [address] [address] Chronometer Adjuster: Bret Vazquez MD Performed By: #### E RTPF, CK, ECENZ, VD25 #### [address] [address] Chronometer Adjuster: Bret Vazquez MD Neutrophil (Seg) 79 % High 36-65 [facility] Comment on above: Performed By: #### I OCAL, CDP, MG, LACTIC, YVROSE, BNP, BMP #### [place] [address] Chronometer Adjuster: Bret Vazquez MD Performed By: #### E RTPF, CK, ECENZ, VD25 #### [place] [address] Chronometer Adjuster: Bret Vazquez MD NRBC Automated 0.0 per 100 WBC Normal 0.0 [facility] Comment on above: Performed By: #### I OCAL, CDP, MG, LACTIC, YVROSE, BNP, BMP #### [place] [address] Chronometer Adjuster: Bret Vazquez MD Performed By: #### E RTPF, CK, ECENZ, VD25 #### [place] [address] Chronometer Adjuster: Bret Vazquez MD Platelet mean volume (Bld) [Entitic vol] 10.7 fL Normal 8.1-13.5 [facility] Comment on above: Performed By: #### I OCAL, CDP, MG, LACTIC, YVROSE, BNP, BMP #### [address] [address] Chronometer Adjuster: Bret Vazquez MD Performed By: #### E RTPF, CK, ECENZ, VD25 #### [address] [address] Chronometer Adjuster: Bret Vazquez MD Platelets (Bld) [#/Vol] 206 10*3/uL Normal 138-453 [facility] Comment on above: Performed By: #### I OCAL, CDP, MG, LACTIC, YVROSE, BNP, BMP #### [address] [address] Chronometer Adjuster: Bret Vazquez MD Performed By: #### E RTPF, CK, ECENZ, VD25 #### [address] [address] Chronometer Adjuster: Bret Vazquez MD RBC (Bld) [#/Vol] 2.40 10*6/uL Low 4.21-5.77 [facility] Comment on above: Performed By: #### I OCAL, CDP, MG, LACTIC, YVROSE, BNP, BMP #### [address] [address] Chronometer Adjuster: Bret Vazquez MD Performed By: #### E RTPF, CK, ECENZ, VD25 #### [address] [address] Chronometer Adjuster: Bret Vazquez MD RBC morphology finding Nom (Bld) ANISOCYTOSIS PRESENT Normal [facility] Comment on above: Result Comment: MACR OCYTOSIS PRESENT Performed By: #### I OCAL, CDP, MG, LACTIC, YVROSE, BNP, BMP #### [address] [address] Chronometer Adjuster: Bret Vazquez MD Performed By: #### E RTPF, CK, ECENZ, VD25 #### [facility] [address] [place] [address] Chronometer Adjuster: Bret Vazquez MD WBC (Bld) [#/Vol] 9.2 10*3/uL Normal 3.5-11.3 [facility] Comment on above: Performed By: #### I OCAL, CDP, MG, LACTIC, YVROSE, BNP, BMP #### [address] [address] Chronometer Adjuster: Bret Vazquez MD Performed By: #### E RTPF, CK, ECENZ, VD25 #### [facility] [address] [place] [address] Chronometer Adjuster: Bret Vazquez MD Hgb/Hcton 09-07-2022 Hematocrit (Bld) [Volume fraction] 22.7 % Low 40.7-50.3 [facility] Comment on above: Performed By: #### D SENAIT, UAX, UMICAO #### [address] [address] Chronometer Adjuster: Bret Vazquez MD Performed By: #### H H #### [address] [address] Chronometer Adjuster: Bret Vazquez MD Hemoglobin (Bld) [Mass/Vol] 6.9 g/dL Critically low 13.0-17.0 [facility] Comment on above: Performed By: #### D SENAIT, UAX, UMICAO #### [facility] [address] [place] [address] Chronometer Adjuster: Bret Vazquez MD Performed By: #### H H #### [facility] [address] [place] [address] Chronometer Adjuster: Bret Vazquez MD Hematocrit (Bld) [Volume fraction] 19.2 % Low 40.7-50.3 [facility] Comment on above: Performed By: #### B MPX, CDP #### [facility] [address] [place] [address] Chronometer Adjuster: Bret Vazquez MD Performed By: #### E RTPF, CK, ECENZ, VD25 #### [address] [address] Chronometer Adjuster: Bret Vazquez MD Hemoglobin (Bld) [Mass/Vol] 6.2 g/dL Critically low 13.0-17.0 [facility] Comment on above: Performed By: #### B MPX, CDP #### [address] [address] Chronometer Adjuster: Bret Vazquez MD Performed By: #### E RTPF, CK, ECENZ, VD25 #### [facility] [address] [place] [address] Chronometer Adjuster: Bret Vazquez MD Magnesiumon 09-07-2022 Magnesium [Mass/Vol] 2.1 mg/dL Normal 1.6-2.6 [facility] Comment on above: Performed By: #### I OCAL, CDP, MG, LACTIC, YVROSE, BNP, BMP #### [facility] [address] [place] [address] Chronometer Adjuster: Bret Vazquez MD Performed By: #### E RTPF, CK, ECENZ, VD25 #### [address] [address] Chronometer Adjuster: Bret Vazquez MD XR CHEST PORTABLEon 09-07-20 [...] Bry Becker MD 09/07/22 Final result Normal [facility] Basic Metab w/rfx MGon 09-06 Anion gap [Moles/Vol] 9 mmol/L Normal 9-17 [facility] Comment on above: Performed By: #### GINI STARKS, UMICAO #### [facility] [address] [place] [address] Chronometer Adjuster: Bret Vazquez MD Performed By: #### CHRISTY MOJICA #### [address] [address] Chronometer Adjuster: Bret Vazquez MD Calcium [Mass/Vol] 7.4 mg/dL Low 8.6-10.4 [facility] Comment on above: Performed By: #### GINI STARKS, UMICAO #### [facility] [address] [place] [address] Chronometer Adjuster: Bret Vazquez MD Performed By: #### CHRISTY MOJICA #### [facility] [address] [place] [address] Chronometer Adjuster: Bret Vazquez MD Chloride [Moles/Vol] 104 mmol/L Normal 98-107 [facility] Comment on above: Performed By: #### GINI STARKS, UMICAO #### [facility] [address] [place] [address] Chronometer Adjuster: Bret Vazquez MD Performed By: #### E CHRISTY LOPEZ #### [facility] [address] [place] [address] Chronometer Adjuster: Bret Vazquez MD CO2 [Moles/Vol] 22 mmol/L Normal 20-31 [facility] Comment on above: Performed By: #### GINI STARKS, UMICAO #### [facility] [address] [place] [address] Chronometer Adjuster: Bret Vazquez MD Performed By: #### CHRISTY MOJICA #### [address] [address] Chronometer Adjuster: Bret Vazquez MD Creatinine [Mass/Vol] 0.59 mg/dL Low 0.70-1.20 [facility] Comment on above: Performed By: #### GINI STARKS, CORRINA #### [address] [address] Chronometer Adjuster: Bret Vazquez MD Performed By: #### CHRISTY MOJICA #### [address] [address] Chronometer Adjuster: Bret Vazquez MD GFR/1.73 sq M.predicted among non-blacks MDRD (S/P/Bld) [Vol rate/Area] mL/min/{1.73_m2} Normal >60 [facility] Comment on above: Result Comment: Effective [...] Performed By: #### GINI STARKS, UMICAO #### [address] [address] Chronometer Adjuster: Bret Vazquez MD Performed By: #### CHRISTY MOJICA #### [address] [address] Chronometer Adjuster: Bret Vazquez MD Glucose [Mass/Vol] 175 mg/dL High 70-99 [facility] Comment on above: Performed By: #### D AU, UAX, UMICAO #### [facility] [address] [place] [address] Chronometer Adjuster: Bret Vazquez MD Performed By: #### E CHRISTY LOPEZ #### [facility] [address] [place] [address] Chronometer Adjuster: Bret Vazquez MD Potassium [Moles/Vol] 4.5 mmol/L Normal 3.7-5.3 [facility] Comment on above: Performed By: #### D SENAIT, UAX, UMICAO #### [facility] [address] [place] [address] Chronometer Adjuster: Bret Vazquez MD Performed By: #### E CHRISTY LOPEZ #### [facility] [address] [place] [address] Chronometer Adjuster: Bret Vazquez MD Sodium [Moles/Vol] 135 mmol/L Normal 135-144 [facility] Comment on above: Performed By: #### Jose R SAPP, UAX, UMICAO #### [facility] [address] [place] [address] Chronometer Adjuster: Bret Vazquez MD Performed By: #### CHRISTY MOJICA #### [facility] [address] [place] [address] Chronometer Adjuster: Bret Vazquez MD Urea nitrogen [Mass/Vol] 11 mg/dL Normal 8-23 [facility] Comment on above: Performed By: #### Jose R SAPP, UAX, UMICAO #### [facility] [address] [place] [address] Chronometer Adjuster: Bret Vazquez MD Performed By: #### E RTCHRISTY HIGGINS #### [facility] [address] [place] [address] Chronometer Adjuster: Bret Vazquez MD Basic Metabolic Profon 09-06 Anion gap [Moles/Vol] 7 mmol/L Low 9-17 [facility] Comment on above: Performed By: #### GINI STARKS UMICAO #### [facility] [address] [place] [address] Chronometer Adjuster: Bret Vazquez MD Performed By: #### CHRISTY MOJICA #### [facility] [address] [place] [address] Chronometer Adjuster: Bret Vazquez MD Calcium [Mass/Vol] 7.8 mg/dL Low 8.6-10.4 [facility] Comment on above: Performed By: #### GINI STARKS UMICAO #### [facility] [address] [place] [address] Chronometer Adjuster: Bret Vazquez MD Performed By: #### CHRISTY MOJICA #### [facility] [address] [place] [address] Chronometer Adjuster: Bret Vazquez MD Chloride [Moles/Vol] 107 mmol/L Normal 98-107 [facility] Comment on above: Performed By: #### GINI STARKS UMICAO #### [facility] [address] [place] [address] Chronometer Adjuster: Bret Vazquez MD Performed By: #### CHRISTY MOJICA #### [facility] [address] [place] [address] Chronometer Adjuster: Bret Vazquez MD CO2 [Moles/Vol] 23 mmol/L Normal 20-31 [facility] Comment on above: Performed By: #### GINI STARKS, UMICAO #### [facility] [address] [place] [address] Chronometer Adjuster: Bret Vazquez MD Performed By: #### CHRISTY MOJICA #### [facility] [address] [place] [address] Chronometer Adjuster: Bret Vazquez MD Creatinine [Mass/Vol] 0.60 mg/dL Low 0.70-1.20 [facility] Comment on above: Performed By: #### D SENAIT, UAX, UMICAO #### [address] [address] Chronometer Adjuster: Bret Vazquez MD Performed By: #### E CHRISTY LOPEZ #### [address] [address] Chronometer Adjuster: Bret Vazquez MD GFR/1.73 sq M.predicted among non-blacks MDRD (S/P/Bld) [Vol rate/Area] mL/min/{1.73_m2} Normal >60 [facility] Comment on above: Result Comment: Effective [...] affects renal tubular secretion. Performed By: #### GIIN STARKS, UMEPIFANIO #### [address] [address] Chronometer Adjuster: Bret Vazquez MD Performed By: #### E CHRISTY LOPEZ #### [facility] [address] [place] [address] Chronometer Adjuster: Bret Vazquez MD Glucose [Mass/Vol] 155 mg/dL High 70-99 [facility] Comment on above: Performed By: #### Jose R SAPP, UAX, UMICAO #### [facility] [address] [place] [address] Chronometer Adjuster: Bret Vazquez MD Performed By: #### E RTPF, GHLTEG #### [address] [address] Chronometer Adjuster: Bret Vazquez MD Potassium [Moles/Vol] 5.0 mmol/L Normal 3.7-5.3 [facility] Comment on above: Performed By: #### Jose R SAPP UAX, UMICAO #### [address] [address] Chronometer Adjuster: Bret Vazquez MD Performed By: #### E RTPF, GHLTEG #### [address] [address] Chronometer Adjuster: Bret Vazquez MD Sodium [Moles/Vol] 137 mmol/L Normal 135-144 [facility] Comment on above: Performed By: #### GINI STARKS, UMICAO #### [address] [address] Chronometer Adjuster: Bret Vazquez MD Performed By: #### E RTRONALDO, GHLTEG #### [address] [address] Chronometer Adjuster: Bret Vazquez MD Urea nitrogen [Mass/Vol] 11 mg/dL Normal 8-23 [facility] Comment on above: Performed By: #### GINI STARKS, UMICAO #### [address] [address] Chronometer Adjuster: Bret Vazquez MD Performed By: #### E RTPF, GHLTEG #### [address] [address] Chronometer Adjuster: Bret Vazquez MD Anion gap [Moles/Vol] 11 mmol/L Normal 9-17 [facility] Comment on above: Performed By: #### I OCAL, CDP, MG, LACTIC, YVROSE, BNP, BMP #### [address] [place] [address] Chronometer Adjuster: Bret Vazquez MD Performed By: #### E RTPF, CK, ECENZ, VD25 #### [address] [address] Chronometer Adjuster: Bret Vazquez MD Calcium [Mass/Vol] 7.5 mg/dL Low 8.6-10.4 [facility] Comment on above: Performed By: #### I OCAL, CDP, MG, LACTIC, YVROSE, BNP, BMP #### [address] [address] Chronometer Adjuster: Bret Vazquez MD Performed By: #### E RTPF, CK, ECENZ, VD25 #### [address] [address] Chronometer Adjuster: Bret Vazquez MD Chloride [Moles/Vol] 104 mmol/L Normal 98-107 [facility] Comment on above: Performed By: #### I OCAL, CDP, MG, LACTIC, YVROSE, BNP, BMP #### [address] [address] Chronometer Adjuster: Bret Vazquez MD Performed By: #### E RTPF, CK, ECENZ, VD25 #### [address] [address] Chronometer Adjuster: Bret Vazquez MD CO2 [Moles/Vol] 20 mmol/L Normal 20-31 [facility] Comment on above: Performed By: #### I OCAL, CDP, MG, LACTIC, YVROSE, BNP, BMP #### [address] [address] Chronometer Adjuster: Bret Vazquez MD Performed By: #### E RTPF, CK, ECENZ, VD25 #### [address] [address] Chronometer Adjuster: Bret Vazquez MD Creatinine [Mass/Vol] 0.62 mg/dL Low 0.70-1.20 [facility] Comment on above: Performed By: #### I OCAL, CDP, MG, LACTIC, YVROSE, BNP, BMP #### [facility] [address] [place] [address] Chronometer Adjuster: Bret Vazquez MD Performed By: #### E RTPF, CK, ECENZ, VD25 #### [facility] [address] [place] [address] Chronometer Adjuster: Bret Vazquez MD GFR/1.73 sq M.predicted among non-blacks MDRD (S/P/Bld) [Vol rate/Area] mL/min/{1.73_m2} Normal >60 [facility] Comment on above: Result Comment: Effective [...] By: #### I OCAL, CDP, MG, LACTIC, YVROSE, BNP, BMP #### [address] [address] Chronometer Adjuster: Bret Vazquez MD Performed By: #### E RTPF, CK, ECENZ, VD25 #### [facility] [address] [place] [address] Chronometer Adjuster: Bret Vazquez MD Glucose [Mass/Vol] 157 mg/dL High 70-99 [facility] Comment on above: Performed By: #### I OCAL, CDP, MG, LACTIC, YVROSE, BNP, BMP #### [facility] [address] [place] [address] [phone] Chronometer Adjuster: Bret Vazquez MD Performed By: #### E RTPF, CK, ECENZ, VD25 #### [address] [address] Chronometer Adjuster: Bret Vazquez MD Potassium [Moles/Vol] 4.2 mmol/L Normal 3.7-5.3 [facility] Comment on above: Performed By: #### I OCAL, CDP, MG, LACTIC, YVROSE, BNP, BMP #### [address] [address] Chronometer Adjuster: Bret Vazquez MD Performed By: #### E RTPF, CK, ECENZ, VD25 #### [address] [address] Chronometer Adjuster: Bret Vazquez MD Sodium [Moles/Vol] 135 mmol/L Normal 135-144 [facility] Comment on above: Performed By: #### I OCAL, CDP, MG, LACTIC, YVROSE, BNP, BMP #### [address] [address] Chronometer Adjuster: Bret Vazquez MD Performed By: #### E RTPF, CK, ECENZ, VD25 #### [address] [address] Chronometer Adjuster: Bret Vazquez MD Urea nitrogen [Mass/Vol] 11 mg/dL Normal 8-23 [facility] Comment on above: Performed By: #### I OCAL, CDP, MG, LACTIC, YVROSE, BNP, BMP #### [address] [address] Chronometer Adjuster: Bret Vazquez MD Performed By: #### E RTPF, CK, ECENZ, VD25 #### [address] [address] Chronometer Adjuster: Bret Vazquez MD Brain Natri. Peptideon 09-06 Natriuretic peptide B (Bld) [Mass/Vol] 846 pg/mL High <300 [facility] Comment on above: Result Comment: An age-independent cutoff point of 300 pg/ml has a 98% negative predictive value excluding acute heart failure. Performed By: #### B MPX, CDP #### [facility] [address] [place] [address] Chronometer Adjuster: Bret Vazquez MD Performed By: #### E RTPF, CK, ECENZ, VD25 #### [facility] [address] [place] [address] Chronometer Adjuster: Bret Vazquez MD CBC with Diffon 09-06-2022 Abs. Basophil 0.00 k/uL Normal 0.0-0.2 [facility] Comment on above: Performed By: #### Jose R SAPP UAX, UMICAO #### [facility] [address] [place] [address] Chronometer Adjuster: Bret Vazquez MD Performed By: #### E CHRISTY LOPEZ #### [facility] [address] [place] [address] Chronometer Adjuster: Bret Vazquez MD Abs.Imm.Granulocyte 0.00 k/uL Normal 0.00-0.30 [facility] Comment on above: Performed By: #### Jose R SAPP, UAX, UMICAO #### [facility] [address] [place] [address] Chronometer Adjuster: Bret Vazquez MD Performed By: #### E CHRISTY LOPEZ #### [facility] [address] [place] [address] Chronometer Adjuster: Bret Vazquez MD Abs.Neutrophil (Seg) 8.46 k/uL High 1.8-7.7 [facility] Comment on above: Performed By: #### D SENAIT, UAX, UMICAO #### [facility] [address] [place] [address] Chronometer Adjuster: Bret Vazquez MD Performed By: #### Isidro RTKLARISSA HIGGINSEG #### [address] [address] Chronometer Adjuster: Bret Vazquez MD Basophils/100 WBC (Bld) 0 % Normal 0-2 [facility] Comment on above: Performed By: #### Jose R SAPP UAPriti, UMICAO #### [address] [address] Chronometer Adjuster: Bret Vazquez MD Performed By: #### E RTKLARISSA HIGGINSEG #### [address] [address] Chronometer Adjuster: Bret Vazquez MD Eosinophils (Bld) [#/Vol] 0.00 10*3/uL Normal 0.0-0.4 [facility] Comment on above: Performed By: #### GINI STARKS, UMICAO #### [address] [address] Chronometer Adjuster: Bret Vazquez MD Performed By: #### CHRISTY MOJICA #### [address] [address] Chronometer Adjuster: Bret Vazquez MD Eosinophils/100 WBC (Bld) 0 % Low 1-4 [facility] Comment on above: Performed By: #### Jose R SAPP UAPriti, UMICAO #### [facility] [address] [place] [address] Chronometer Adjuster: Bret Vazquez MD Performed By: #### E RTKLARISSA HIGGINSEG #### [facility] [address] [place] [address] Chronometer Adjuster: Bret Vazquez MD Immature granulocytes/100 WBC (Bld) 0 % Normal 0 [facility] Comment on above: Performed By: #### Jose R SAPP, UAX, UMICAO #### [facility] [address] [place] [address] Chronometer Adjuster: Bret Vazquez MD Performed By: #### E RTPFCHRISTY #### [facility] [address] [place] [address] Chronometer Adjuster: Bret Vazquez MD Lymphocytes (Bld) [#/Vol] 0.55 10*3/uL Low 1.0-4.8 [facility] Comment on above: Performed By: #### Jose R AU, UAX, UMICAO #### [facility] [address] [place] [address] Chronometer Adjuster: Bret Vazquez MD Performed By: #### E RTCHRISTY HIGGINS #### [facility] [address] [place] [address] Chronometer Adjuster: Bret Vazquez MD Lymphocytes/100 WBC (Bld) 6 % Low 24-44 [facility] Comment on above: Performed By: #### Jose R AU, UAX, UMICAO #### [address] [address] Chronometer Adjuster: Bret Vazquez MD Performed By: #### E RTCHRISTY HIGGINS #### [address] [address] Chronometer Adjuster: Bret Vazquez MD Monocytes (Bld) [#/Vol] 0.09 10*3/uL Low 0.1-0.8 [facility] Comment on above: Performed By: #### Jose R AU, UAX, UMICAO #### [facility] [address] [place] [address] Chronometer Adjuster: Bret Vazquez MD Performed By: #### E RTPF, GHLTEG #### [facility] [address] [place] [address] Chronometer Adjuster: Bret Vazquez MD Monocytes/100 WBC (Bld) 1 % Normal 1-7 [facility] Comment on above: Performed By: #### GINI STARKS UMICAO #### [address] [address] Chronometer Adjuster: Bret Vazquez MD Performed By: #### CHRISTY MOJICA #### [address] [address] Chronometer Adjuster: Bret Vazquez MD Morphology Ruy (Bld) [Interp] ANISOCYTOSIS PRESENT Normal [facility] Comment on above: Result Comment: 1+ ACANTHOCYTES Performed By: #### GINI STARKS UMICAO #### [address] [address] Chronometer Adjuster: Bret Vazquez MD Performed By: #### CHRISTY MOJICA #### [address] [address] Chronometer Adjuster: Bret Vazquez MD Neutrophil (Seg) 93 % High 36-66 [facility] Comment on above: Performed By: #### GINI STARKS UMICAO #### [address] [address] Chronometer Adjuster: Bret Vazquez MD Performed By: #### CHRISTY MOJICA #### [address] [address] Chronometer Adjuster: Bret Vazquez MD Erythrocyte distribution width (RBC) [Ratio] 16.8 % High 11.8-14.4 [facility] Comment on above: Performed By: #### GINI STARKS UMICAO #### [address] [address] Chronometer Adjuster: Bret Vazquez MD Performed By: #### CHRISTY MOJICA #### [facility] [address] [place] [address] Chronometer Adjuster: Bret Vazquez MD Hematocrit (Bld) [Volume fraction] 26.6 % Low 40.7-50.3 [facility] Comment on above: Performed By: #### Jose R SAPP, UAX, UMICAO #### [facility] [address] [place] [address] Chronometer Adjuster: Bret Vazquez MD Performed By: #### E RTCHRISTY HIGGINS #### [facility] [address] [place] [address] Chronometer Adjuster: Bret Vazquez MD Hemoglobin (Bld) [Mass/Vol] 8.5 g/dL Low 13.0-17.0 [facility] Comment on above: Performed By: #### GINI STARKS, UMICAO #### [facility] [address] [place] [address] Chronometer Adjuster: Bret Vazquez MD Performed By: #### CHRISTY MOJICA #### [address] [address] Chronometer Adjuster: Bret Vazquez MD MCH (RBC) [Entitic mass] 31.6 pg Normal 25.2-33.5 [facility] Comment on above: Performed By: #### GINI STARKS, UMICAO #### [facility] [address] [place] [address] Chronometer Adjuster: Bret Vazquez MD Performed By: #### E CHRISTY LOPEZ #### [facility] [address] [place] [address] Chronometer Adjuster: Bret Vazquez MD MCHC (RBC) [Mass/Vol] 32.0 g/dL Normal 28.4-34.8 [facility] Comment on above: Performed By: #### Jose R SAPP UAX, UMICAO #### [facility] [address] [place] [address] Chronometer Adjuster: Bret Vazquez MD Performed By: #### CHRISTY MOJICA #### [address] [address] Chronometer Adjuster: Bret Vazquez MD MCV (RBC) [Entitic vol] 98.9 fL Normal 82.6-102.9 [facility] Comment on above: Performed By: #### GINI STARKS, UMICAO #### [address] [address] Chronometer Adjuster: Bret Vazquez MD Performed By: #### CHRISTY MOJICA #### [address] [address] Chronometer Adjuster: Bret Vazquez MD NRBC Automated 0.0 per 100 WBC Normal 0.0 [facility] Comment on above: Performed By: #### GINI STARKS, UMICAO #### [address] [address] Chronometer Adjuster: Bret Vazquez MD Performed By: #### CHRISTY MOJICA #### [address] [address] Chronometer Adjuster: Bret Vazquez MD Platelet mean volume (Bld) [Entitic vol] 10.4 fL Normal 8.1-13.5 [facility] Comment on above: Performed By: #### Jose R SAPP UAX, UMICAO #### [address] [address] Chronometer Adjuster: Bret Vazquez MD Performed By: #### CHRISTY MOJICA #### [address] [address] Chronometer Adjuster: Bret Vazquez MD Platelets (Bld) [#/Vol] 224 10*3/uL Normal 138-453 [facility] Comment on above: Performed By: #### GINI STARKS, UMICAO #### [facility] [address] [place] [address] Chronometer Adjuster: Bret Vazquez MD Performed By: #### Isidro RTCHRISTY HIGGINS #### [facility] [address] [place] [address] Chronometer Adjuster: Bret Vazquez MD RBC (Bld) [#/Vol] 2.69 10*6/uL Low 4.21-5.77 [facility] Comment on above: Performed By: #### GINI STARKS, UMICAO #### [facility] [address] [place] [address] Chronometer Adjuster: Bret Vazquez MD Performed By: #### Isidro RTCHRISTY HIGGINS #### [facility] [address] [place] [address] Chronometer Adjuster: Bret Vazquez MD WBC (Bld) [#/Vol] 9.1 10*3/uL Normal 3.5-11.3 [facility] Comment on above: Performed By: #### GINI STARKS, UMICAO #### [facility] [address] [place] [address] Chronometer Adjuster: Bret Vazquez MD Performed By: #### Isidro RTKLARISSA HIGGINSEG #### [facility] [address] [place] [address] Chronometer Adjuster: Bret Vazquze MD Abs. Basophil 0.03 k/uL Normal 0.00-0.20 [facility] Comment on above: Performed By: #### GINI STARKS, UMICAO #### [facility] [address] [place] [address] Chronometer Adjuster: Bret Vazquez MD Performed By: #### Isidro RTKLARISSA HIGGINSEG #### [address] [address] Chronometer Adjuster: Bret Vazquez MD Abs. Eosinophil <0.03 Normal 0.00-0.44 [facility] Comment on above: Performed By: #### Jose R SAPP, UAX, UMICAO #### [address] [address] Chronometer Adjuster: Bret Vazquez MD Performed By: #### E RTCHRISTY HIGGINS #### [address] [address] Chronometer Adjuster: Bret Vazquez MD Abs.Imm.Granulocyte 0.05 k/uL Normal 0.00-0.30 [facility] Comment on above: Performed By: #### GINI STARKS, UMICAO #### [address] [address] Chronometer Adjuster: Bret Vazquez MD Performed By: #### E CHRISTY LOPEZ #### [address] [address] Chronometer Adjuster: Bret Vazquez MD Abs.Neutrophil (Seg) 9.22 k/uL High 1.50-8.10 [facility] Comment on above: Performed By: #### GINI STARKS, UMICAO #### [address] [address] Chronometer Adjuster: Bret Vazquez MD Performed By: #### E RTCHRISTY HIGGINS #### [address] [address] Chronometer Adjuster: Bret Vazquez MD Basophils/100 WBC (Bld) 0 % Normal 0-2 [facility] Comment on above: Performed By: #### Jose R SAPP, UAX, UMICAO #### [address] [address] Chronometer Adjuster: Bret Vazquez MD Performed By: #### CHRISTY MOJICA #### [facility] [address] [place] [address] Chronometer Adjuster: Bret Vazquez MD Eosinophils/100 WBC (Bld) 0 % Low 1-4 [facility] Comment on above: Performed By: #### GINI STARKS, UMICAO #### [facility] [address] [place] [address] Chronometer Adjuster: Bret Vazquez MD Performed By: #### KLARISSA MOJICAEG #### [facility] [address] [place] [address] Chronometer Adjuster: Bret Vazquez MD Erythrocyte distribution width (RBC) [Ratio] 16.8 % High 11.8-14.4 [facility] Comment on above: Performed By: #### GINI STARKS, UMICAO #### [facility] [address] [place] [address] Chronometer Adjuster: Bret Vazquez MD Performed By: #### CHRISTY MOJICA #### [facility] [address] [place] [address] Chronometer Adjuster: Bret Vazquez MD Hematocrit (Bld) [Volume fraction] 30.0 % Low 40.7-50.3 [facility] Comment on above: Performed By: #### GINI STARKS, UMICAO #### [facility] [address] [place] [address] Chronometer Adjuster: Bret Vazquez MD Performed By: #### KLARISSA MOJICAEG #### [facility] [address] [place] [address] Chronometer Adjuster: Bret Vazquez MD Hemoglobin (Bld) [Mass/Vol] 9.7 g/dL Low 13.0-17.0 [facility] Comment on above: Performed By: #### Jose R SAPP UAX, UMICAO #### [facility] [address] [place] [address] Chronometer Adjuster: Bret Vazquez MD Performed By: #### E RTCHRISTY HIGGINS #### [facility] [address] [place] [address] Chronometer Adjuster: Bret Vazquez MD Immature granulocytes/100 WBC (Bld) 0 % Normal 0 [facility] Comment on above: Performed By: #### D AU, UAX, UMICAO #### [facility] [address] [place] [address] Chronometer Adjuster: Bret Vazquez MD Performed By: #### E RTKLARISSA HIGGINSEG #### [address] [address] Chronometer Adjuster: Bret Vazquez MD Lymphocytes (Bld) [#/Vol] 0.84 10*3/uL Low 1.10-3.70 [facility] Comment on above: Performed By: #### Jose R SAPP, UAX, UMICAO #### [address] [address] Chronometer Adjuster: Bret Vazquez MD Performed By: #### E RTCHRISTY HIGGINS #### [address] [address] Chronometer Adjuster: Bret Vazquez MD Lymphocytes/100 WBC (Bld) 8 % Low 24-43 [facility] Comment on above: Performed By: #### Jose R SAPP, UAX, UMICAO #### [address] [address] Chronometer Adjuster: Bret Vazquez MD Performed By: #### E RTRONALDO, RANDOLPHLTEG #### [facility] [address] [place] [address] Chronometer Adjuster: Bret Vazquez MD MCH (RBC) [Entitic mass] 31.6 pg Normal 25.2-33.5 [facility] Comment on above: Performed By: #### GINI STARKS UMICAO #### [address] [address] Chronometer Adjuster: Bret Vazquez MD Performed By: #### Isidro RTCHRISTY HIGGINS #### [address] [address] Chronometer Adjuster: Bret Vazquez MD MCHC (RBC) [Mass/Vol] 32.3 g/dL Normal 28.4-34.8 [facility] Comment on above: Performed By: #### GINI STARKS, DENIAICAMavis #### [address] [address] Chronometer Adjuster: Bret Vazquez MD Performed By: #### CHRISTY MOJICA #### [address] [address] Chronometer Adjuster: Bret Vazquez MD MCV (RBC) [Entitic vol] 97.7 fL Normal 82.6-102.9 [facility] Comment on above: Performed By: #### GINI STARKS, UMICAO #### [address] [address] Chronometer Adjuster: Bret Vazquez MD Performed By: #### CHRISTY MOJICA #### [address] [address] Chronometer Adjuster: Bret Vazquez MD Monocytes (Bld) [#/Vol] 0.98 10*3/uL Normal 0.10-1.20 [facility] Comment on above: Performed By: #### GINI STARKS, UMICAO #### [address] [address] Chronometer Adjuster: Bret Vazquez MD Performed By: #### E RTPF, RANDOLPHLTEG #### [address] [address] Chronometer Adjuster: Bret Vazquez MD Monocytes/100 WBC (Bld) 9 % Normal 3-12 [facility] Comment on above: Performed By: #### D AU, UAX, UMICAO #### [address] [address] Chronometer Adjuster: Bret Vazquez MD Performed By: #### E RTBakariFRANDOLPHLTEG #### [address] [address] Chronometer Adjuster: Bret Vazquez MD Neutrophil (Seg) 83 % High 36-65 [facility] Comment on above: Performed By: #### Jose R SAPP, UAX, UMICAO #### [address] [address] Chronometer Adjuster: Bret Vazquez MD Performed By: #### E RTKLARISSA HIGGINSEG #### [address] [address] Chronometer Adjuster: Bret Vazquez MD NRBC Automated 0.0 per 100 WBC Normal 0.0 [facility] Comment on above: Performed By: #### Jose R SAPP, UAX, UMICAO #### [address] [address] Chronometer Adjuster: Bret Vazquez MD Performed By: #### E RTKLARISSA HIGGINSEG #### [address] [address] Chronometer Adjuster: Bret Vazquez MD Platelet mean volume (Bld) [Entitic vol] 10.2 fL Normal 8.1-13.5 [facility] Comment on above: Performed By: #### Jose R AU, UAX, UMICAO #### [facility] [address] [place] [address] Chronometer Adjuster: Bret Vazquez MD Performed By: #### Isidro RTCHRISTY HIGGINS #### [address] [address] Chronometer Adjuster: Bret Vazquez MD Platelets (Bld) [#/Vol] 249 10*3/uL Normal 138-453 [facility] Comment on above: Performed By: #### D SENAIT, UAX, UMICAO #### [facility] [address] [place] [address] Chronometer Adjuster: Bret Vazquez MD Performed By: #### CHRISTY MOJICA #### [address] [address] Chronometer Adjuster: Bret Vazquez MD RBC (Bld) [#/Vol] 3.07 10*6/uL Low 4.21-5.77 [facility] Comment on above: Performed By: #### Jose R SAPP, UAX, UMICAO #### [address] [address] Chronometer Adjuster: Bret Vazquez MD Performed By: #### CHRISTY MOJICA #### [address] [address] Chronometer Adjuster: Bret Vazquez MD RBC morphology finding Nom (Bld) ANISOCYTOSIS PRESENT Normal [facility] Comment on above: Performed By: #### Jose R SAPP, UAX, UMICAO #### [facility] [address] [place] [address] Chronometer Adjuster: Bret Vazquez MD Performed By: #### Isidro RTCHRISTY HIGGINS #### [address] [address] Chronometer Adjuster: Bret Vazquez MD WBC (Bld) [#/Vol] 11.1 10*3/uL Normal 3.5-11.3 [facility] Comment on above: Performed By: #### D AU, UAX, UMICAO #### [address] [address] Chronometer Adjuster: Bret Vazquez MD Performed By: #### E RTPF, GHLTEG #### [address] [address] Chronometer Adjuster: Bret Vazquez MD Abs. Basophil 0.04 k/uL Normal 0.00-0.20 [facility] Comment on above: Performed By: #### I OCAL, CDP, MG, LACTIC, YVROSE, BNP, BMP #### [address] [address] Chronometer Adjuster: Bret Vazquez MD Performed By: #### E RTPF, CK, ECENZ, VD25 #### [address] [address] Chronometer Adjuster: Bret Vaqzuez MD Abs.Imm.Granulocyte 0.07 k/uL Normal 0.00-0.30 [facility] Comment on above: Performed By: #### I OCAL, CDP, MG, LACTIC, YVROSE, BNP, BMP #### [address] [address] Chronometer Adjuster: Bret Vazquez MD Performed By: #### E RTPF, CK, ECENZ, VD25 #### [address] [address] Chronometer Adjuster: Bret Vazquez MD Abs.Neutrophil (Seg) 13.83 k/uL High 1.50-8.10 [facility] Comment on above: Performed By: #### I OCAL, CDP, MG, LACTIC, YVROSE, BNP, BMP #### [address] [address] Chronometer Adjuster: Bret Vazquez MD Performed By: #### E RTPF, CK, ECENZ, VD25 #### [address] [address] Chronometer Adjuster: Bret Vazquez MD Basophils/100 WBC (Bld) 0 % Normal 0-2 [facility] Comment on above: Performed By: #### I OCAL, CDP, MG, LACTIC, YVROSE, BNP, BMP #### [address] [address] Chronometer Adjuster: Bret Vazquez MD Performed By: #### E RTPF, CK, ECENZ, VD25 #### [address] [address] Chronometer Adjuster: Bret Vazquez MD Eosinophils (Bld) [#/Vol] 0.07 10*3/uL Normal 0.00-0.44 [facility] Comment on above: Performed By: #### I OCAL, CDP, MG, LACTIC, YVROSE, BNP, BMP #### [address] [address] Chronometer Adjuster: Bret Vazquez MD Performed By: #### E RTPF, CK, ECENZ, VD25 #### [facility] [address] [place] [address] Chronometer Adjuster: Bret Vazquez MD Eosinophils/100 WBC (Bld) 0 % Low 1-4 [facility] Comment on above: Performed By: #### I OCAL, CDP, MG, LACTIC, YVROSE, BNP, BMP #### [facility] [address] [place] [address] Chronometer Adjuster: Bret Vazquez MD Performed By: #### E RTPF, CK, ECENZ, VD25 #### [facility] [address] [place] [address] Chronometer Adjuster: Bret Vazquez MD Erythrocyte distribution width (RBC) [Ratio] 16.4 % High 11.8-14.4 [facility] Comment on above: Performed By: #### I OCAL, CDP, MG, LACTIC, YVROSE, BNP, BMP #### [facility] [address] [place] [address] Chronometer Adjuster: Bret Vazquez MD Performed By: #### E RTPF, CK, ECENZ, VD25 #### [facility] [address] [place] [address] Chronometer Adjuster: Bret Vazquez MD Hematocrit (Bld) [Volume fraction] 33.2 % Low 40.7-50.3 [facility] Comment on above: Performed By: #### I OCAL, CDP, MG, LACTIC, YVROSE, BNP, BMP #### [facility] [address] [place] [address] Chronometer Adjuster: Bret Vazquez MD Performed By: #### E RTPF, CK, ECENZ, VD25 #### [facility] [address] [place] [address] Chronometer Adjuster: Bret Vazquez MD Hemoglobin (Bld) [Mass/Vol] 11.1 g/dL Low 13.0-17.0 [facility] Comment on above: Performed By: #### I OCAL, CDP, MG, LACTIC, YVROSE, BNP, BMP #### [facility] [address] [place] [address] Chronometer Adjuster: Bret Vazquez MD Performed By: #### E RTPF, CK, ECENZ, VD25 #### [facility] [address] [place] [address] Chronometer Adjuster: Bret Vazquez MD Immature granulocytes/100 WBC (Bld) 0 % Normal 0 [facility] Comment on above: Performed By: #### I OCAL, CDP, MG, LACTIC, YVROSE, BNP, BMP #### [facility] [address] [place] [address] Chronometer Adjuster: Bret Vazquez MD Performed By: #### E RTPF, CK, ECENZ, VD25 #### [address] [address] Chronometer Adjuster: Bret Vazquez MD Lymphocytes (Bld) [#/Vol] 1.05 10*3/uL Low 1.10-3.70 [facility] Comment on above: Performed By: #### I OCAL, CDP, MG, LACTIC, YVROSE, BNP, BMP #### [facility] [address] [place] [address] Chronometer Adjuster: Bret Vazquez MD Performed By: #### E RTPF, CK, ECENZ, VD25 #### [facility] [address] [place] [address] Chronometer Adjuster: Bret Vazquez MD Lymphocytes/100 WBC (Bld) 6 % Low 24-43 [facility] Comment on above: Performed By: #### I OCAL, CDP, MG, LACTIC, YVROSE, BNP, BMP #### [facility] [address] [place] [address]841 Chronometer Adjuster: Bret Vazquez MD Performed By: #### E RTPF, CK, ECENZ, VD25 #### [facility] [address] [place] [address] Chronometer Adjuster: Bret Vazquez MD MCH (RBC) [Entitic mass] 31.5 pg Normal 25.2-33.5 [facility] Comment on above: Performed By: #### I OCAL, CDP, MG, LACTIC, YVROSE, BNP, BMP #### [facility] [address] [place] [address] Chronometer Adjuster: Bret Vazquez MD Performed By: #### E RTPF, CK, ECENZ, VD25 #### [facility] [address] [place] [address] Chronometer Adjuster: Bret Vazquez MD MCHC (RBC) [Mass/Vol] 33.4 g/dL Normal 28.4-34.8 [facility] Comment on above: Performed By: #### I OCAL, CDP, MG, LACTIC, YVROSE, BNP, BMP #### [address] [address] Chronometer Adjuster: Bret Vazquez MD Performed By: #### E RTPF, CK, ECENZ, VD25 #### [address] [address] Chronometer Adjuster: Bret Vazquez MD MCV (RBC) [Entitic vol] 94.3 fL Normal 82.6-102.9 [facility] Comment on above: Performed By: #### I OCAL, CDP, MG, LACTIC, YVROSE, BNP, BMP #### [address] [address] Chronometer Adjuster: Bret Vazquez MD Performed By: #### E RTPF, CK, ECENZ, VD25 #### [address] [address] Chronometer Adjuster: Bret Vazquez MD Monocytes (Bld) [#/Vol] 1.34 10*3/uL High 0.10-1.20 [facility] Comment on above: Performed By: #### I OCAL, CDP, MG, LACTIC, YVROSE, BNP, BMP #### [address] [address] Chronometer Adjuster: Bret Vazquez MD Performed By: #### E RTPF, CK, ECENZ, VD25 #### [facility] [address] [place] [address] Chronometer Adjuster: Bret Vazquez MD Monocytes/100 WBC (Bld) 8 % Normal 3-12 [facility] Comment on above: Performed By: #### I OCAL, CDP, MG, LACTIC, YVROSE, BNP, BMP #### [facility] [address] [place] [address] Chronometer Adjuster: Bret Vazquez MD Performed By: #### E RTPF, CK, ECENZ, VD25 #### [address] [address] Chronometer Adjuster: Bret Vazquez MD Neutrophil (Seg) 84 % High 36-65 [facility] Comment on above: Performed By: #### I OCAL, CDP, MG, LACTIC, YVROSE, BNP, BMP #### [address] [address] Chronometer Adjuster: Bret Vazquez MD Performed By: #### E RTPF, CK, ECENZ, VD25 #### [address] [address] Chronometer Adjuster: Bret Vazquez MD NRBC Automated 0.0 per 100 WBC Normal 0.0 [facility] Comment on above: Performed By: #### I OCAL, CDP, MG, LACTIC, YVROSE, BNP, BMP #### [address] [address] Chronometer Adjuster: Bret Vazquez MD Performed By: #### E RTPF, CK, ECENZ, VD25 #### [address] [address] Chronometer Adjuster: Bret Vazquez MD Platelet mean volume (Bld) [Entitic vol] 10.2 fL Normal 8.1-13.5 [facility] Comment on above: Performed By: #### I OCAL, CDP, MG, LACTIC, YVROSE, BNP, BMP #### [address] [address] Chronometer Adjuster: Bret Vazquez MD Performed By: #### E RTPF, CK, ECENZ, VD25 #### [address] [address] Chronometer Adjuster: Bret Vazquez MD Platelets (Bld) [#/Vol] 283 10*3/uL Normal 138-453 [facility] Comment on above: Performed By: #### I OCAL, CDP, MG, LACTIC, YVROSE, BNP, BMP #### [facility] [address] [place] [address] Chronometer Adjuster: Bret Vazquez MD Performed By: #### E RTPF, CK, ECENZ, VD25 #### [facility] [address] [place] [address] Chronometer Adjuster: Bret Vazquez MD RBC (Bld) [#/Vol] 3.52 10*6/uL Low 4.21-5.77 [facility] Comment on above: Performed By: #### I OCAL, CDP, MG, LACTIC, YVROSE, BNP, BMP #### [address] [address] Chronometer Adjuster: Bret Vazquez MD Performed By: #### E RTPF, CK, ECENZ, VD25 #### [facility] [address] [place] [address] Chronometer Adjuster: Bret Vazquez MD RBC morphology finding Nom (Bld) ANISOCYTOSIS PRESENT Normal [facility] Comment on above: Performed By: #### I OCAL, CDP, MG, LACTIC, YVROSE, BNP, BMP #### [facility] [address] [place] [address] Chronometer Adjuster: Bret Vazquez MD Performed By: #### E RTPF, CK, ECENZ, VD25 #### [facility] [address] [place] [address] Chronometer Adjuster: Bret Vazquez MD WBC (Bld) [#/Vol] 16.4 10*3/uL High 3.5-11.3 [facility] Comment on above: Performed By: #### I OCAL, CDP, MG, LACTIC, YVROSE, BNP, BMP #### [facility] [address] [place] [address] Chronometer Adjuster: Bret Vazquez MD Performed By: #### E RTPChantel, ARRON, VIRGIL, VD25 #### [facility] [address] [place] [address] Chronometer Adjuster: Bret Vazquez MD CT 3D RECONSTRUCTIONon 09-06 [...] Dallin Pineda MD 09/06/22 Final result Normal [facility] CT ANKLE LEFT WO CONTRASTon 09-06-2022 [...] Dallin Pineda MD 09/06/22 Final result Normal [facility] Calcium, Ionicon 09-06-2022 Calcium [Moles/Vol] 1.16 mmol/L Normal 1.13-1.33 [facility] Comment on above: Performed By: #### B MPX, CDP #### [address] [address] Chronometer Adjuster: Bret Vazquez MD Performed By: #### B MP, CDP, IOCAL, LACTIC, YVROSE, MG #### [address] [address] Chronometer Adjuster: Bret Vazquez MD Calcium [Moles/Vol] 1.17 mmol/L Normal 1.13-1.33 [facility] Comment on above: Performed By: #### D AU, UAX, UMICAO #### [address] [address] Chronometer Adjuster: Bret Vazquez MD Performed By: #### E RTPF, CK, ECENZ, VD25 #### [address] [address] Chronometer Adjuster: Bret Vazquez MD Calcium [Moles/Vol] 0.98 mmol/L Low 1.13-1.33 [facility] Comment on above: Performed By: #### I OCAL, CDP, MG, LACTIC, YVROSE, BNP, BMP #### [address] [address] Chronometer Adjuster: Bret Vazquez MD Performed By: #### E RTPF, CK, ECENZ, VD25 #### [address] [address] Chronometer Adjuster: Bret Vazquez MD Drug Scr, Abuse, Uron 2021 Amphetamine(s),Ur Negative Normal NEG [facility] Comment on above: Result Comment: (Positive cutoff 1000 ng/mL) Performed By: #### Jose R SAPP, UAX, UMICAO #### [facility] [address] [place] [address] Chronometer Adjuster: Bret Vazquez MD Performed By: #### E RTPF, CK, ECENZ, VD25 #### [facility] [address] [place] [address] Chronometer Adjuster: Bret Vazquez MD Barbiturate(s),Ur Negative Normal NEG [facility] Comment on above: Result Comment: (Positive cutoff 200 ng/mL) Performed By: #### Jose R SAPP UAX, UMICAO #### [facility] [address] [place] [address] Chronometer Adjuster: Bret Vazquez MD Performed By: #### E RTPF, CK, ECENZ, VD25 #### [facility] [address] [place] [address] Chronometer Adjuster: Bret Vazquez MD Benzodiazepine(s) Negative Normal NEG [facility] Comment on above: Result Comment: (Positive cutoff 200 ng/mL) Performed By: #### Jose R SAPP, UAX, UMICAO #### [facility] [address] [place] [address] Chronometer Adjuster: Bret Vazquez MD Performed By: #### E RTPF, CK, ECENZ, VD25 #### [facility] [address] [place] [address] Chronometer Adjuster: Bret Vazquez MD Cannabinoid(s),Ur Negative Normal NEG [facility] Comment on above: Result Comment: (Positive cutoff 50 ng/mL) Performed By: #### Jose R AU, UAX, UMICAO #### [facility] [address] [place] [address] Chronometer Adjuster: Bret Vazquez MD Performed By: #### E RTPF, CK, ECENZ, VD25 #### [facility] [address] [place] [address] Chronometer Adjuster: Bret Vazquez MD Cocaine Metabolite Negative Normal NEG [facility] Comment on above: Result Comment: (Positive cutoff 300 ng/mL) Performed By: #### D AU, UAX, UMICAO #### [facility] [address] [place] [address] Chronometer Adjuster: Bret Vazquez MD Performed By: #### E RTPF, CK, ECENZ, VD25 #### [facility] [address] [place] [address] Chronometer Adjuster: Bret Vazquez MD Fentanyl, Urine Positive Abnormal NEG [facility] Comment on above: Result Comment: (Positive cutoff 5 ng/ml) Performed By: #### Jose R SAPP UAX, UMICAO #### [facility] [address] [place] [address] Chronometer Adjuster: Bret Vazquez MD Performed By: #### E RTPF, CK, ECENZ, VD25 #### [facility] [address] [place] [address] Chronometer Adjuster: Bret Vazquez MD Interpretive Info Assay provides medic al screening only. The absence of expected drug(s) and/or Normal [facility] Comment on above: Result Comment: meta bolite(s) may indicate diluted or adulterated urine, limitations of testing or timing of collection. Testing for legal purposes should be confirmed by another method. To request confirmation of test result, please call the lab within 7 days of sample submission. Performed By: #### D SENAIT UAX, UMICAO #### [facility] [address] [place] [address] Chronometer Adjuster: Bret Vazquez MD Performed By: #### E RTPF, CK, ECENZ, VD25 #### [facility] [address] [place] [address] Chronometer Adjuster: Bret Vazquez MD Methadone Ql (U) Negative Normal NEG [facility] Comment on above: Result Comment: (Positive cutoff 300 ng/mL) Performed By: #### Jose R AU, UAX, UMICAO #### [facility] [address] [place] [address] Chronometer Adjuster: Bret Vazquez MD Performed By: #### E RTPF, CK, ECENZ, VD25 #### [facility] [address] [place] [address] Chronometer Adjuster: Bret Vazquez MD Opiate(s), Ur Negative Normal NEG [facility] Comment on above: Result Comment: (Positive cutoff 300 ng/mL) Performed By: #### Jose R AU, UAX, UMICAO #### [facility] [address] [place] [address] Chronometer Adjuster: Bret Vazquez MD Performed By: #### E RTPF, CK, ECENZ, VD25 #### [facility] [address] [place] [address] Chronometer Adjuster: Bret Vazquez MD Oxycodone, Urine Negative Normal NEG [facility] Comment on above: Result Comment: (Positive cutoff 100 ng/mL) Performed By: #### Jose R SAPP, UAX, UMICAO #### [facility] [address] [place] [address] Chronometer Adjuster: Bret Vazquez MD Performed By: #### E RTPF, CK, ECENZ, VD25 #### [facility] [address] [place] [address] Chronometer Adjuster: Bret Vazquez MD Phencyclidine, Ur Negative Normal NEG [facility] Comment on above: Result Comment: (Positive cutoff 25 ng/mL) Performed By: #### D AU, UAX, UMICAO #### [facility] [address] [place] [address] Chronometer Adjuster: Bret Vazquez MD Performed By: #### E RTPF CK, ECENZ, VD25 #### [address] [address] Chronometer Adjuster: Bret Vazquez MD FLUORO FOR SURGICAL PROCEDUR ESon 09-06-2022 FLUORO FOR SURGICAL PROCEDURES Radiology exam is complete. No Radiologist dictation. Please follow up with ordering provider. Final result Normal [facility] Gl Hemostasis TEG w/Lysison 09-06-2022 Fibrinogen, Func TEG 22.5 mm Normal 15.0-32.0 [facility] Comment on above: Performed By: #### B MPX, CDP #### [address] [address] Chronometer Adjuster: Bret Vazquez MD Performed By: #### E RTCHRISTY HIGGINS #### [address] [address] Chronometer Adjuster: Bret Vazquez MD LY30 (Lysis) TEG 0.4 % Normal 0.0-2.6 [facility] Comment on above: Performed By: #### B MPX, CDP #### [address] [address] Chronometer Adjuster: Bret Vazquez MD Performed By: #### E RTKLARISSA HIGGINSEG #### [address] [address] Chronometer Adjuster: Bret Vazquez MD MA Rapid TEG 64.5 mm Normal 52.0-70 [facility] Comment on above: Performed By: #### B MPX, CDP #### [address] [address] Chronometer Adjuster: Bret Vazquez MD Performed By: #### E RTRANDOLPH HIGGINSLTEG #### [facility] [address] [place] [address] Chronometer Adjuster: Bret Vazquez MD R(Reaction Time) TEG 8.0 min Normal 4.6-9.1 [facility] Comment on above: Performed By: #### B MPX, CDP #### [facility] [address] [place] [address] Chronometer Adjuster: Bret Vazquez MD Performed By: #### E CHRISTY LOPEZ #### [facility] [address] [place] [address] Chronometer Adjuster: Bret Vazquez MD Hgb/Hcton 09-06-2022 Hematocrit (Bld) [Volume fraction] 28.2 % Low 40.7-50.3 [facility] Comment on above: Performed By: #### B MPX, CDP #### [facility] [address] [place] [address] Chronometer Adjuster: Bret Vazquez MD Performed By: #### H H #### [facility] [address] [place] [address] Chronometer Adjuster: Bret Vazquez MD Hemoglobin (Bld) [Mass/Vol] 9.3 g/dL Low 13.0-17.0 [facility] Comment on above: Performed By: #### B MPX, CDP #### [facility] [address] [place] [address] Chronometer Adjuster: Bret Vazquez MD Performed By: #### H H #### [facility] [address] [place] [address] Chronometer Adjuster: Bret Vazquez MD Lactic Acidon 09-06-2022 Lactic Acid,Whole Bl 1.7 mmol/L Normal 0.7-2.1 [facility] Comment on above: Performed By: #### B MPX, CDP #### [facility] [address] [place] [address] Chronometer Adjuster: Bret Vazquez MD Performed By: #### E RTPF, GHLTEG #### [facility] [address] [place] [address] Chronometer Adjuster: Bret Vazquez MD Lactic Acid,Whole Bl 0.8 mmol/L Normal 0.7-2.1 [facility] Comment on above: Performed By: #### Jose R SAPP, UAX, UMICAO #### [facility] [address] [place] [address] Chronometer Adjuster: Bret Vazquez MD Performed By: #### E RTPF, CK, ECENZ, VD25 #### [facility] [address] [place] [address] Chronometer Adjuster: Bret Vazquez MD Lactic Acid,Whole Bl 1.3 mmol/L Normal 0.7-2.1 [facility] Comment on above: Performed By: #### I OCAL, CDP, MG, LACTIC, YVROSE, BNP, BMP #### [facility] [address] [place] [address] Chronometer Adjuster: Bret Vazquez MD Performed By: #### E RTPF, CK, ECENZ, VD25 #### [facility] [address] [place] [address] Chronometer Adjuster: Bret Vazquez MD Magnesiumon 09-06-2022 Magnesium [Mass/Vol] 1.8 mg/dL Normal 1.6-2.6 [facility] Comment on above: Performed By: #### Jose R SAPP, UAX, UMICAO #### [facility] [address] [place] [address] Chronometer Adjuster: Bret Vazquez MD Performed By: #### E RTRONALDO GHLTEG #### [facility] [address] [place] [address] Chronometer Adjuster: Bret Vazquez MD Magnesium [Mass/Vol] 2.3 mg/dL Normal 1.6-2.6 [facility] Comment on above: Performed By: #### D AU, UAX, UMICAO #### [address] [address] Chronometer Adjuster: Bret Vazquez MD Performed By: #### E RTPChantel, GHLTEG #### [facility] [address] [place] [address] Chronometer Adjuster: Bret Vazquez MD Magnesium [Mass/Vol] 1.7 mg/dL Normal 1.6-2.6 [facility] Comment on above: Performed By: #### I OCAL, CDP, MG, LACTIC, YVROSE, BNP, BMP #### [facility] [address] [place] [address] Chronometer Adjuster: Bret Vazquez MD Performed By: #### E RTPF, CK, ECENZ, VD25 #### [facility] [address] [place] [address] Chronometer Adjuster: Bret Vazquez MD PTon 09-06-2022 INR Coag (PPP) [Relative time] 1.6 {INR} Normal [facility] Comment on above: Result Comment: Therapeutic Range: Moderate Anticoagulant Intensity: INR = 2.0-3.0 High Anticoagulant Intensity: INR = 2.5-3.5 Performed By: #### I OCAL, CDP, MG, LACTIC, YVROSE, BNP, BMP #### [facility] [address] [place] [address] Chronometer Adjuster: Bret Vazquez MD Performed By: #### E RTPF, CK, ECENZ, VD25 #### [facility] [address] [place] [address] Chronometer Adjuster: Bret Vazquez MD PT Coag (PPP) [Time] 16.5 s High 9.1-12.3 [facility] Comment on above: Performed By: #### I OCAL, CDP, MG, LACTIC, YVROSE, BNP, BMP #### [facility] [address] [place] [address] Chronometer Adjuster: Bret Vazquez MD Performed By: #### E RTPF, CK, ECENZ, VD25 #### [facility] [address] [place] [address] Chronometer Adjuster: Bret Vazquez MD Phosphorus, Inorg.on 022 Phosphorus, Inorg. 4.0 mg/dL Normal 2.5-4.5 [facility] Comment on above: Performed By: #### D AU, UAX, UMICAO #### [facility] [address] [place] [address] Chronometer Adjuster: Bret Vazquez MD Performed By: #### E RTPF, GHLTEG #### [facility] [address] [place] [address] Chronometer Adjuster: Bert Vazquez MD Phosphorus, Inorg. 4.0 mg/dL Normal 2.5-4.5 [facility] Comment on above: Performed By: #### I OCAL, CDP, MG, LACTIC, YVROSE, BNP, BMP #### [address] [address] Chronometer Adjuster: Bret Vazquez MD Performed By: #### E RTPF, CK, ECENZ, VD25 #### [facility] [address] [place] [address] Chronometer Adjuster: Bret Vazquez MD Phosphorus, Inorg. 3.5 mg/dL Normal 2.5-4.5 [facility] Comment on above: Performed By: #### B MPX, CDP #### [facility] [address] [place] [address] Chronometer Adjuster: Bret Vazquez MD Performed By: #### E RTPF, CK, ECENZ, VD25 #### [facility] [address] [place] [address] Chronometer Adjuster: Bret Vazquez MD Type + Screenon 09-06-2022 Type + Screen Sample Expiration 09/08/2022,2359 Arm Band Number [id number] ABO/Rh(D) A POSITIVE Antibody Screen NEGATIVE Unit Number [id number] Blood Component Type Leukocyte Reduced Red Cell Unit Division 00 Status of Unit TRANSFUSED Transfusion Status OK TO TRANSFUSE Crossmatch Result COMPATIBLE Unit Number [id number] Blood Component Type Leukocyte Reduced Red Cell Unit Division 00 Status of Unit TRANSFUSED Transfusion Status OK TO TRANSFUSE Crossmatch Result COMPATIBLE Unit Number [id number] Blood Component Type Leukocyte Reduced Red Cell Unit Division 00 Status of Unit TRANSFUSED Transfusion Status OK TO TRANSFUSE Crossmatch Result COMPATIBLE Normal [facility] Comment on above: Performed By: #### B MPX, CDP #### [address] [address] Chronometer Adjuster: Bret Vazquez MD Performed By: #### E RTPF, CK, ECENZ, VD25 #### [facility] [address] [place] [address] Chronometer Adjuster: Bret Vazquez MD UA w/Reflex Cultureon 2021 Bilirubin, SemiQt,Ur Negative Normal NEG [facility] Comment on above: Performed By: #### D AU, UAX, UMICAO #### [address] [address] Chronometer Adjuster: Bret Vazquez MD Performed By: #### E RTPF, CK, ECENZ, VD25 #### [facility] [address] [place] [address] Chronometer Adjuster: Bret Vazquez MD Blood, Urine Negative Normal NEG [facility] Comment on above: Performed By: #### D AU, UAX, UMICAO #### [facility] [address] [place] [address] Chronometer Adjuster: Bret Vazquez MD Performed By: #### E RTPF, CK, ECENZ, VD25 #### [address] [address] Chronometer Adjuster: Bret Vazquez MD Clarity (U) Clear Normal CLEAR [facility] Comment on above: Performed By: #### Jose R SAPP, UAX, UMICAO #### [address] [address] Chronometer Adjuster: Bret Vazquez MD Performed By: #### E RTPF, CK, ECENZ, VD25 #### [address] [address] Chronometer Adjuster: Bret Vazquez MD Color (U) Yellow Normal YEL [facility] Comment on above: Performed By: #### Jose R SAPP, UAX, UMICAO #### [address] [address] Chronometer Adjuster: Bret Vazquez MD Performed By: #### E RTPF, CK, ECENZ, VD25 #### [address] [address] Chronometer Adjuster: Bret Vazquez MD Glucose Ql (U) Negative Normal NEG [facility] Comment on above: Performed By: #### Jose R SAPP, UAX, UMICAO #### [address] [address] Chronometer Adjuster: Bret Vazquez MD Performed By: #### E RTPF, CK, ECENZ, VD25 #### [address] [address] Chronometer Adjuster: Bret Vazquez MD Ketones Ql (U) Negative Normal NEG [facility] Comment on above: Performed By: #### Jose R SAPP, UAX, UMICAO #### [address] [address] Chronometer Adjuster: Bret Vazquez MD Performed By: #### E RTPF, CK, ECENZ, VD25 #### [address] [address] Chronometer Adjuster: Bret Vazquez MD Leukocyte esterase Test strip Ql (U) Negative Normal NEG [facility] Comment on above: Performed By: #### D AU, UAX, UMICAO #### [address] [address] Chronometer Adjuster: Bret Vazquez MD Performed By: #### E RTPF, CK, ECENZ, VD25 #### [facility] [address] [place] [address] Chronometer Adjuster: Bret Vazquez MD Nitrite,Ur Negative Normal NEG [facility] Comment on above: Performed By: #### D AU, UAX, UMICAO #### [address] [address] Chronometer Adjuster: Bret Vazquez MD Performed By: #### E RTPF, CK, ECENZ, VD25 #### [facility] [address] [place] [address] Chronometer Adjuster: Bret Vazquez MD PH,Ur 5.0 Normal 5.0-8.0 [facility] Comment on above: Performed By: #### D SENAIT, UAX, UMICAO #### [address] [address] Chronometer Adjuster: Bret Vazquez MD Performed By: #### E RTPF, CK, ECENZ, VD25 #### [facility] [address] [place] [address] Chronometer Adjuster: Bret Vazquez MD Protein Ql (U) TRACE Abnormal NEG [facility] Comment on above: Performed By: #### D AU, UAX, UMICAO #### [facility] [address] [place] [address] Chronometer Adjuster: Bret Vazquez MD Performed By: #### E RTPF, CK, ECENZ, VD25 #### [facility] [address] [place] [address] Chronometer Adjuster: Bret Vazquez MD Spec. [place],Ur 1.070 High 1.005-1.03 0 [facility] Comment on above: Performed By: #### D AU, UAX, UMICAO #### [facility] [address] [place] [address] Chronometer Adjuster: Bret Vazquez MD Performed By: #### E RTPF, CK, ECENZ, VD25 #### [address] [address] Chronometer Adjuster: Bret Vazquez MD Urobilinogen,Ur Normal Normal NORM [facility] Comment on above: Performed By: #### Jose R AU, UAX, UMICAO #### [facility] [address] [place] [address] Chronometer Adjuster: Bret Vazquez MD Performed By: #### E RTPF, CK, ECENZ, VD25 #### [facility] [address] [place] [address] Chronometer Adjuster: Bret Vazquez MD Urinalysis,Microon 2 Casts 2 TO 5 HYALINE Normal 0-8 [facility] Comment on above: Result Comment: Refe rence range defined for non-centrifuged specimen. Performed By: #### D AU, UAX, UMICAO #### [facility] [address] [place] [address] Chronometer Adjuster: Bret Vazquez MD Performed By: #### E RTPF, CK, ECENZ, VD25 #### [facility] [address] [place] [address] Chronometer Adjuster: Bret Vazquez MD Crystals LM Nom (Urine sed) FEW Abnormal NONE [facility] Comment on above: Result Comment: CALC IUM OXALATE Performed By: #### D AU, UAX, UMICAO #### [facility] [address] [place] [address] Chronometer Adjuster: Bret Vazquez MD Performed By: #### E RTPF, CK, ECENZ, VD25 #### [facility] [address] [place] [address] Chronometer Adjuster: Bret Vazquez MD Epithelial cells LM Ql (Urine sed) 2 TO 5 Normal 0-5 [facility] Comment on above: Performed By: #### D AU, UAX, UMICAO #### [address] [address] Chronometer Adjuster: Bret Vazquez MD Performed By: #### E RTPF, CK, ECENZ, VD25 #### [address] [address] Chronometer Adjuster: Bret Vazquez MD Urine RBC's 0 TO 2 Normal 0-4 [facility] Comment on above: Result Comment: Refe rence range defined for non-centrifuged specimen. Performed By: #### D SENAIT, UAX, UMICAO #### [facility] [address] [place] [address] Chronometer Adjuster: Bret Vazquez MD Performed By: #### E RTPF, CK, ECENZ, VD25 #### [facility] [address] [place] [address]007 Chronometer Adjuster: Bret Vazquez MD Urine WBC's 2 TO 5 Normal 0-5 [facility] Comment on above: Performed By: #### D AU, UAX, UMICAO #### [facility] [address] [place] [address]607 Chronometer Adjuster: Bret Vazquez MD Performed By: #### E RTPF, CK, ECENZ, VD25 #### [facility] [address] [place] [address] Chronometer Adjuster: Bret Vazquez MD XR ANKLE LEFT (2 [...] Mau Tomas MD 09/06/22 Final result Normal [facility] XR ANKLE LEFT (MIN 3 VIEWS)o [...] Bo Jacques MD 09/06/22 Final result Normal [facility] XR ANKLE LEFT (MIN 3 VIEWS) [...] Mau Tomas MD 09/06/22 Final result Normal [facility] XR ANKLE LEFT (MIN 3 VIEWS) [...] Lizet Gonzalez MD 09/05/22 Final result Normal [facility] XR ELBOW LEFT (MIN 3 VIEWS)o [...] Los Araujo MD 09/05/22 Final result Normal [facility] XR ELBOW RIGHT (MIN 3 VIEWS) [...] Lizet Gonzalez MD 09/06/22 Final result Normal [facility] XR FOOT LEFT (MIN 3 VIEWS)on [...] Lizet Gonzalez MD 09/06/22 Final result Normal [facility] XR HAND LEFT (MIN 3 VIEWS)on [...] Aldo Felix MD 09/05/22 Final result Normal [facility] XR HAND RIGHT (MIN 3 VIEWS)o [...] moderate osteoarthritis at right 2nd carpometacarpal joint. Lnom-ng-wkctgaaw osteoarthritis of right distal radioulnar joint. IMPRESSION: No evidence of acute fracture or dislocation in right hand and wrist. 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 Interpreted by: Lizet Gonzalez MD Signed by: Lizet Gonzalez MD 09/06/22 Final result Normal [facility] XR KNEE LEFT (3 VIEWS)on XR [...] Lizet Gonzalez MD 09/05/22 Final result Normal [facility] XR KNEE RIGHT (1-2 VIEWS)on 09-06-2022 [...] Emili Pugh MD 09/06/22 Final result Normal [facility] XR PELVIS (MIN 3 VIEWS)on XR [...] Lizet Gonzalez MD 09/06/22 Final result Normal [facility] XR RADIUS ULNA LEFT (2 VIEWS [...] Los Araujo MD 09/05/22 Final result Normal [facility] XR RADIUS ULNA RIGHT (2 VIEW [...] Lizet Gonzalez MD 09/06/22 Final result Normal [facility] XR SHOULDER LEFT (MIN 2 VIEW [...] Lizet Gonzalez MD 09/06/22 Final result Normal [facility] XR SHOULDER RIGHT (MIN 2 VIE [...] Lizet Gonzalez MD 09/06/22 Final result Normal [facility] XR TIBIA FIBULA RIGHT (2 VIE [...] Emili Pugh MD 09/06/22 Final result Normal [facility] XR WRIST LEFT (MIN 3 VIEWS)o [...] Aldo Felix MD 09/05/22 Final result Normal [facility] XR WRIST RIGHT (2 VIEWS)on 1 [...] Aldo Felix MD 09/05/22 Final result Normal [facility] [facility] CT CERVICAL SPINE WO CONTRAS Ton [...] Los Araujo MD 09/05/22 Final result Normal [facility] CT CHEST ABDOMEN PELVIS W CO [...] Los Araujo MD 09/05/22 Final result Normal [facility] CT HEAD WO CONTRASTon 2021 CT [...] Rush Saavedra MD 09/05/22 Final result Normal [facility] CT LUMBAR SPINE TRAUMA RECON STRUCTIONon [...] Los Araujo MD 09/05/22 Final result Normal [facility] CT THORACIC SPINE TRAUMA REC ONSTRUCTIONon [...] Los Araujo MD 09/05/22 Final result Normal [facility] Creatine Kinaseon 09-05-2022 CK [Catalytic activity/Vol] 139 U/L Normal 39-308 [facility] Comment on above: Performed By: #### D AU, UAX, UMICAO #### [address] [place], [place] [id number] Chronometer Adjuster: Bret Vazquez MD Performed By: #### E RTPF, CK, ECENZ, VD25 #### [address] [place], [place] [id number] Chronometer Adjuster: Bret Vazquez MD Trauma Profileon 09-05-2022 Anion gap [Moles/Vol] 11 mmol/L Normal 9-17 [facility] Comment on above: Performed By: #### B MPX, CDP #### [address] [address] Chronometer Adjuster: Bret Vazquez MD Performed By: #### E RTKLARISSA HIGGINSEG #### [facility] [address] [place] [address] Chronometer Adjuster: Bret Vazquez MD Chloride [Moles/Vol] 100 mmol/L Normal 98-107 [facility] Comment on above: Performed By: #### B MPX, CDP #### [address] [address] Chronometer Adjuster: Bret Vazquez MD Performed By: #### Isidro RTKLARISSA HIGGINSEG #### [address] [address] Chronometer Adjuster: Bret Vazquez MD CO2 [Moles/Vol] 21 mmol/L Normal 20-31 [facility] Comment on above: Performed By: #### B MPX, CDP #### [address] [address] Chronometer Adjuster: Bret Vazquez MD Performed By: #### Isidro RTKLARISSA HIGGINSEG #### [facility] [address] [place] [address] Chronometer Adjuster: Bret Vazquez MD Creatinine [Mass/Vol] 0.71 mg/dL Normal 0.70-1.20 [facility] Comment on above: Performed By: #### B MPX, CDP #### [address] [address] Chronometer Adjuster: Bret Vazquez MD Performed By: #### E RTKLARISSA HIGGINSEG #### [facility] [address] [place] [address] Chronometer Adjuster: Bret Vazquez MD Ethanol [Mass/Vol] mg/dL Normal <10 [facility] Comment on above: Performed By: #### B MPX, CDP #### [facility] [address] [place] [address] Chronometer Adjuster: Bret Vazquez MD Performed By: #### E RTCHRISTY HIGGINS #### [facility] [address] [place] [address] Chronometer Adjuster: Bret Vazquez MD Ethanol percent <0.010 Normal <0.010 [facility] Comment on above: Performed By: #### B KRISSYX, CDP #### [facility] [address] [place] [address] Chronometer Adjuster: Bret Vazquez MD Performed By: #### E KLARISSA LOPEZEG #### [facility] [address] [place] [address] Chronometer Adjuster: Bret Vazquez MD GFR/1.73 sq M.predicted among non-blacks MDRD (S/P/Bld) [Vol rate/Area] 60 mL/min/{1.73_m2} Low >60 [facility] Comment on above: Result Comment: Effective [...] Performed By: #### B MPX, CDP #### [address] [address] Chronometer Adjuster: Bret Vazquez MD Performed By: #### E RTCHRISTY HIGGINS #### [facility] [address] [place] [address] Chronometer Adjuster: Bret Vazquez MD Glucose [Mass/Vol] 278 mg/dL High 70-99 [facility] Comment on above: Performed By: #### B MPX, CDP #### [facility] [address] [place] [address] Chronometer Adjuster: Bret Vazquez MD Performed By: #### E RTKLARISSA HIGGINSEG #### [facility] [address] [place] [address] Chronometer Adjuster: Bret Vazquez MD Potassium [Moles/Vol] 3.3 mmol/L Low 3.7-5.3 [facility] Comment on above: Performed By: #### B MPX, CDP #### [address] [address] Chronometer Adjuster: Bret Vazquez MD Performed By: #### E RTKLARISSA HIGGINSEG #### [address] [address] Chronometer Adjuster: Bret Vazquez MD Sodium [Moles/Vol] 132 mmol/L Low 135-144 [facility] Comment on above: Performed By: #### B MPX, CDP #### [address] [address] Chronometer Adjuster: Bret Vazquez MD Performed By: #### Isidro RTKLARISSA HIGGINSEG #### [facility] [address] [place] [address] Chronometer Adjuster: Bret Vazquez MD Urea nitrogen [Mass/Vol] 10 mg/dL Normal 8-23 [facility] Comment on above: Performed By: #### B MPX, CDP #### [facility] [address] [place] [address] Chronometer Adjuster: Bret Vazquez MD Performed By: #### E RTKLARISSA HIGGINSEG #### [facility] [address] [place] [address] Chronometer Adjuster: Bret Vazquez MD Body Temp. 37.0 Normal [facility] Comment on above: Performed By: #### B MPX, CDP #### [facility] [address] [place] [address] Chronometer Adjuster: Bret Vazquez MD Performed By: #### E RTPKLARISSA GoldenEG #### [facility] [address] [place] [address] Chronometer Adjuster: Bret Vazquez MD Carboxy Hgb 2.3 % Normal 0-5 [facility] Comment on above: Result Comment: Reference Range: Non-Smokers 0-2% Average Smoker 2-4% Heavy Smoker <10% Performed By: #### B MPX, CDP #### [address] [address] Chronometer Adjuster: Bret Vazquez MD Performed By: #### E RTPF GHLTEG #### [facility] [address] [place] [address] Chronometer Adjuster: Bret Vazquez MD Ethanol [Mass/Vol] mg/dL Normal <10 [facility] Comment on above: Performed By: #### D AU, UAX, UMICAO #### [facility] [address] [place] [address] Chronometer Adjuster: Bret Vazquez MD Performed By: #### E RTPF, CK, ECENZ, VD25 #### [facility] [address] [place] [address] Chronometer Adjuster: Bret Vazquez MD Ethanol percent <0.010 Normal <0.010 [facility] Comment on above: Performed By: #### D AU, UAX, UMICAO #### [facility] [address] [place] [address] Chronometer Adjuster: Bret Vazquez MD Performed By: #### E RTPF, CK, ECENZ, VD25 #### [address] [address] Chronometer Adjuster: Bret Vazquez MD FIO2 INFORMATION NOT PROVIDED Normal [facility] Comment on above: Performed By: #### B MPX, CDP #### [address] [address] Chronometer Adjuster: Bret Vazquez MD Performed By: #### E RTPF, GHLTEG #### [address] [address] Chronometer Adjuster: Bret Vazquez MD HCO3 (Bld) [Moles/Vol] 22.6 mmol/L Low 24-30 [facility] Comment on above: Performed By: #### B MPX, CDP #### [address] [address] Chronometer Adjuster: Bret Vazquez MD Performed By: #### E RTPF, GHLTEG #### [address] [address] Chronometer Adjuster: Bret Vazquez MD Negative Base Excess 3.3 mmol/L High 0.0-2.0 [facility] Comment on above: Performed By: #### B MPX, CDP #### [address] [address] Chronometer Adjuster: Bret Vazquez MD Performed By: #### E RTPF, GHLTEG #### [address] [address] Chronometer Adjuster: Bret Vazquez MD Oxygen saturation in Blood 87.4 % High 60.0-85.0 [facility] Comment on above: Performed By: #### B MPX, CDP #### [address] [address] Chronometer Adjuster: Bret Vazquez MD Performed By: #### E RTPF, GHLTEG #### [facility] [address] [place] [address] Chronometer Adjuster: Bret Vazquez MD pCO2 47.1 mm Hg Normal 39-55 [facility] Comment on above: Performed By: #### B MPX, CDP #### [facility] [address] [place] [address] Chronometer Adjuster: Bret Vazquez MD Performed By: #### E RTPF, GHLTEG #### [facility] [address] [place] [address] Chronometer Adjuster: Bret Vazquez MD pH (Bld) 7.303 [pH] Low 7.320-7.42 0 [facility] Comment on above: Performed By: #### B MPX, CDP #### [facility] [address] [place] [address] Chronometer Adjuster: Bret Vazquez MD Performed By: #### E RTPF, GHLTEG #### [facility] [address] [place] [address] Chronometer Adjuster: Bret Vazquez MD pO2 62.0 mm Hg High 30-50 [facility] Comment on above: Performed By: #### B MPX, CDP #### [address] [address] Chronometer Adjuster: Bret Vazquez MD Performed By: #### E RTPF, GHLTEG #### [facility] [address] [place] [address] Chronometer Adjuster: Bret Vazquez MD Anion gap [Moles/Vol] 11 mmol/L Normal 9-17 [facility] Comment on above: Performed By: #### D AU, UAX, UMICAO #### [facility] [address] [place] [address] Chronometer Adjuster: Bret Vazquez MD Performed By: #### E RTPF, CK, ECENZ, VD25 #### [address] [address] Chronometer Adjuster: Bret Vazquez MD Chloride [Moles/Vol] 106 mmol/L Normal 98-107 [facility] Comment on above: Performed By: #### Jose R SAPP UAX, UMICAO #### [address] [address] Chronometer Adjuster: Bret Vazquez MD Performed By: #### E RTPF, CK, ECENZ, VD25 #### [address] [address] Chronometer Adjuster: Bret Vazquez MD CO2 [Moles/Vol] 21 mmol/L Normal 20-31 [facility] Comment on above: Performed By: #### GINI STARKS, UMICAO #### [address] [address] Chronometer Adjuster: Bret Vazquez MD Performed By: #### E RTPF, CK, ECENZ, VD25 #### [facility] [address] [place] [address] Chronometer Adjuster: Bret Vazquez MD Creatinine [Mass/Vol] 0.76 mg/dL Normal 0.70-1.20 [facility] Comment on above: Performed By: #### Jose R SAPP UAX, UMICAO #### [facility] [address] [place] [address] Chronometer Adjuster: Bret Vazquez MD Performed By: #### E RTPF, CK, ECENZ, VD25 #### [facility] [address] [place] [address] Chronometer Adjuster: Bret Vazquez MD GFR/1.73 sq M.predicted among non-blacks MDRD (S/P/Bld) [Vol rate/Area] 60 mL/min/{1.73_m2} Low >60 [facility] Comment on above: Result Comment: Effective [...] #### D AU, UAX, UMICAO #### [facility] [address] [place] [address] Chronometer Adjuster: Bret Vazquez MD Performed By: #### E RTPF, CK, ECENZ, VD25 #### [facility] [address] [place] [address] Chronometer Adjuster: Bret Vazquez MD Glucose [Mass/Vol] 113 mg/dL High 70-99 [facility] Comment on above: Performed By: #### Jose R SAPP, UAX, UMICAO #### [facility] [address] [place] [address] Chronometer Adjuster: Bret Vazquez MD Performed By: #### E RTPF, CK, ECENZ, VD25 #### [facility] [address] [place] [address] Chronometer Adjuster: Bret Vazquez MD Potassium [Moles/Vol] 3.9 mmol/L Normal 3.7-5.3 [facility] Comment on above: Performed By: #### Jose R AU, UAX, UMICAO #### [facility] [address] [place] [address] Chronometer Adjuster: Bret Vazquez MD Performed By: #### E RTPF, CK, ECENZ, VD25 #### [facility] [address] [place] [address] Chronometer Adjuster: Bret Vazquez MD Sodium [Moles/Vol] 138 mmol/L Normal 135-144 [facility] Comment on above: Performed By: #### GINI STARKS UMSAMSONO #### [facility] [address] [place] [address] Chronometer Adjuster: Bret Vazquez MD Performed By: #### E RTPF, CK, ECENZ, VD25 #### [facility] [address] [place] [address] Chronometer Adjuster: Bret Vazquez MD Urea nitrogen [Mass/Vol] 11 mg/dL Normal 8-23 [facility] Comment on above: Performed By: #### GINI STARKS UMSAMSONO #### [facility] [address] [place] [address] Chronometer Adjuster: Bret Vazquez MD Performed By: #### E RTPF, CK, ECENZ, VD25 #### [facility] [address] [place] [address] Chronometer Adjuster: Bret Vazquez MD aPTT Coag (Bld) [Time] 26.0 s Normal 20.5-30.5 [facility] Comment on above: Result Comment: IV Heparin Therapy Range: 48.6-77.8 Performed By: #### GINI STARKS, UMICAO #### [facility] [address] [place] [address] Chronometer Adjuster: Bret Vazquez MD Performed By: #### E RTPF, CK, ECENZ, VD25 #### [facility] [address] [place] [address] Chronometer Adjuster: Bret Vazquez MD INR Coag (PPP) [Relative time] 2.1 {INR} Normal [facility] Comment on above: Result Comment: Therapeutic Range: Moderate Anticoagulant Intensity: INR = 2.0-3.0 High Anticoagulant Intensity: INR = 2.5-3.5 Performed By: #### GINI STARKS, UMICAO #### [facility] [address] [place] [address] Chronometer Adjuster: Bret Vazquez MD Performed By: #### E RTPF, CK, ECENZ, VD25 #### [facility] [address] [place] [address] Chronometer Adjuster: Bret Vazquez MD PT Coag (PPP) [Time] 20.8 s High 9.1-12.3 [facility] Comment on above: Performed By: #### D AU, UAX, UMICAO #### [facility] [address] [place] [address] Chronometer Adjuster: Bret Vazquez MD Performed By: #### E RTPF, CK, ECENZ, VD25 #### [facility] [address] [place] [address] Chronometer Adjuster: Bret Vazquez MD Body Temp. 37.0 Normal [facility] Comment on above: Performed By: #### D AU, UAX, UMICAO #### [facility] [address] [place] [address] Chronometer Adjuster: Bret Vazquez MD Performed By: #### E RTPF, CK, ECENZ, VD25 #### [facility] [address] [place] [address] Chronometer Adjuster: Bret Vazquez MD Carboxy Hgb 0.6 % Normal 0-5 [facility] Comment on above: Result Comment: Reference Range: Non-Smokers 0-2% Average Smoker 2-4% Heavy Smoker <10% Performed By: #### D AU, UAX, UMICAO #### [facility] [address] [place] [address] Chronometer Adjuster: Bret Vazquez MD Performed By: #### E RTPF, CK, ECENZ, VD25 #### [facility] [address] [place] [address] Chronometer Adjuster: Bret Vazquez MD FIO2 INFORMATION NOT PROVIDED Normal [facility] Comment on above: Performed By: #### DONATO STARKSX, UMICAO #### [address] [address] Chronometer Adjuster: Bret Vazquez MD Performed By: #### E RTPF, CK, ECENZ, VD25 #### [address] [address] Chronometer Adjuster: Bret Vazquez MD HCO3 (Bld) [Moles/Vol] 24.8 mmol/L Normal 24-30 [facility] Comment on above: Performed By: #### GINI STARKS, UMICAO #### [address] [address] Chronometer Adjuster: Bret Vazquez MD Performed By: #### E RTPF, CK, ECENZ, VD25 #### [address] [address] Chronometer Adjuster: Bret Vazquez MD Negative Base Excess 1.2 mmol/L Normal 0.0-2.0 [facility] Comment on above: Performed By: #### Jose R SAPP UAPriti, UMICAO #### [address] [address] Chronometer Adjuster: Bret Vazquez MD Performed By: #### E RTPF, CK, ECENZ, VD25 #### [facility] [address] [place] [address] Chronometer Adjuster: Bret Vazquez MD Oxygen saturation in Blood 45.2 % Low 60.0-85.0 [facility] Comment on above: Performed By: #### Jose R SAPP, UAX, UMICAO #### [address] [address] Chronometer Adjuster: Bret Vazquez MD Performed By: #### E RTPF, CK, ECENZ, VD25 #### [address] [address] Chronometer Adjuster: Bret Vazquez MD pCO2 49.5 mm Hg Normal 39-55 [facility] Comment on above: Performed By: #### Jose R AU, UAX, UMICAO #### [address] [address] Chronometer Adjuster: Bret Vazquez MD Performed By: #### E RTPF, CK, ECENZ, VD25 #### [address] [address] Chronometer Adjuster: Bret Vazquez MD pH (Bld) 7.320 [pH] Normal 7.320-7.42 0 [facility] Comment on above: Performed By: #### Jose R SAPP UAX, UMICAO #### [address] [address] Chronometer Adjuster: Bret Vazquez MD Performed By: #### E RTPF, CK, ECENZ, VD25 #### [place] [address] Chronometer Adjuster: Bret Vazquez MD pO2 27.1 mm Hg Low 30-50 [facility] Comment on above: Performed By: #### Jose R SAPP, UAX, UMICAO #### [address] [address] Chronometer Adjuster: Bret Vazquez MD Performed By: #### E RTPF, CK, ECENZ, VD25 #### [facility] [address] [place] [address] Chronometer Adjuster: Bret Vazquez MD Erythrocyte distribution width (RBC) [Ratio] 15.9 % High 11.8-14.4 [facility] Comment on above: Performed By: #### Jose R AU, UAX, UMICAO #### [address] [address] Chronometer Adjuster: Bret Vazquez MD Performed By: #### E RTPF, CK, ECENZ, VD25 #### [address] [address] Chronometer Adjuster: Bret Vazquez MD Hematocrit (Bld) [Volume fraction] 38.2 % Low 40.7-50.3 [facility] Comment on above: Performed By: #### Jose R SAPP, UAX, UMICAO #### [address] [address] Chronometer Adjuster: Bret Vazquez MD Performed By: #### E RTPF, CK, ECENZ, VD25 #### [address] [address] Chronometer Adjuster: Bret Vazquez MD Hemoglobin (Bld) [Mass/Vol] 12.3 g/dL Low 13.0-17.0 [facility] Comment on above: Performed By: #### Jose R SAPP UAX, UMICAO #### [address] [address] Chronometer Adjuster: Bret Vazquez MD Performed By: #### E RTPF, CK, ECENZ, VD25 #### [address] [address] Chronometer Adjuster: Bret Vazquez MD MCH (RBC) [Entitic mass] 32.1 pg Normal 25.2-33.5 [facility] Comment on above: Performed By: #### Jose R SAPP UAX, UMICAO #### [address] [address] Chronometer Adjuster: Bret Vazquez MD Performed By: #### E RTPF, CK, ECENZ, VD25 #### [facility] [address] [place] [address] Chronometer Adjuster: Bret Vazquez MD MCHC (RBC) [Mass/Vol] 32.2 g/dL Normal 28.4-34.8 [facility] Comment on above: Performed By: #### DONATO STARKSX, UMICAO #### [address] [address] Chronometer Adjuster: Bret Vazquez MD Performed By: #### E RTPF, CK, ECENZ, VD25 #### [address] [address] Chronometer Adjuster: Bret Vazquez MD MCV (RBC) [Entitic vol] 99.7 fL Normal 82.6-102.9 [facility] Comment on above: Performed By: #### Jose R SAPP UAPriti, UMICAO #### [address] [address] Chronometer Adjuster: Bret Vazquez MD Performed By: #### E RTPF, CK, ECENZ, VD25 #### [address] [address] Chronometer Adjuster: Bret Vazquez MD NRBC Automated 0.0 per 100 WBC Normal 0.0 [facility] Comment on above: Performed By: #### GINI STARKS, UMICAO #### [address] [address] Chronometer Adjuster: Bret Vazquez MD Performed By: #### E RTPF, CK, ECENZ, VD25 #### [address] [address] Chronometer Adjuster: Bret Vazquez MD Platelet mean volume (Bld) [Entitic vol] 10.0 fL Normal 8.1-13.5 [facility] Comment on above: Performed By: #### Jose R SAPP, UAX, UMICAO #### [address] [address] Chronometer Adjuster: Bret Vazquez MD Performed By: #### E RTPF, CK, ECENZ, VD25 #### [facility] [address] [place] [address] Chronometer Adjuster: Bret Vazquez MD Platelets (Bld) [#/Vol] 307 10*3/uL Normal 138-453 [facility] Comment on above: Performed By: #### D AU, UAX, UMICAO #### [facility] [address] [place] [address] Chronometer Adjuster: Bret Vazquez MD Performed By: #### E RTPF, CK, ECENZ, VD25 #### [address] [address] Chronometer Adjuster: Bret Vazquez MD RBC (Bld) [#/Vol] 3.83 10*6/uL Low 4.21-5.77 [facility] Comment on above: Performed By: #### D AU, UAX, UMICAO #### [facility] [address] [place] [address] Chronometer Adjuster: Bret Vazquez MD Performed By: #### E RTPF, CK, ECENZ, VD25 #### [address] [address] Chronometer Adjuster: Bret Vazquez MD WBC (Bld) [#/Vol] 11.5 10*3/uL High 3.5-11.3 [facility] Comment on above: Performed By: #### D AU, UAX, UMICAO #### [facility] [address] [place] [address] Chronometer Adjuster: Bret Vazquez MD Performed By: #### E RTPF, CK, ECENZ, VD25 #### [facility] [address] [place] [address] Chronometer Adjuster: Bret Vazquez MD Blood Bank BILL FOR SERVICES PERFORMED Normal [facility] Comment on above: Performed By: #### D SENAIT UAX, UMICAO #### [facility] [address] [place] [address] Chronometer Adjuster: Bret Vazquez MD Performed By: #### E RTPF, CK, ECENZ, VD25 #### [facility] [address] [place] [address] Chronometer Adjuster: Bret Vazquez MD Trop/Myoglobinon 09-05-2022 Myoglobin [Mass/Vol] 377 ng/mL High 28-72 [facility] Comment on above: Performed By: #### GINI STARKS, UMICAO #### [facility] [address] [place] [address]168 Chronometer Adjuster: Bret Vazquez MD Performed By: #### E RTPF, CK, ECENZ, VD25 #### [facility] [address] [place] [address] 11873 Chronometer Adjuster: Bret Vazquez MD Troponin, High Sens 12 ng/L Normal 0-22 [facility] Comment on above: Result Comment: High Sensitivity Troponin values cannot be compared with other Troponin methodologies. Patients with high levels of Biotin oral intake (i.e >5mg/day) may have falsely decreased Troponin levels. Samples collected within 8 hours of biotin intake may require additional information for diagnosis. Performed By: #### GINI STARKS, UMICAO #### [facility] [address] [place] [address] Chronometer Adjuster: Bret Vazquez MD Performed By: #### E RTPF, CK, ECENZ, VD25 #### [facility] [address] [place] [address] Chronometer Adjuster: Bret Vazquez MD Vitamin D 25 OHon 09-05-2022 Vitamin D 25 OH 37.8 ng/mL Normal >29.9 [facility] Comment on above: Result Comment: Reference Range: Vitamin D status Range Deficiency <20 ng/mL Mild Deficiency 20-30 ng/mL Sufficiency 30-100 ng/mL Toxicity >100 ng/mL Performed By: #### D AU, UAX, UMICAO #### [facility] [address] [place], [place] [id number] Chronometer Adjuster: Bret Vazquez MD Performed By: #### E RTPF, CK, ECENZ, VD25 #### [address] [place], [place] [id number] Chronometer Adjuster: Bret Vazquez MD XR TIBIA FIBULA LEFT [...] Los Araujo MD 09/05/22 Final result Normal [facility] Q - CBC (H/H,RBC,INDICES,WBC ,PLT)on 03-11-2022 Erythrocyte distribution width (RBC) [Ratio] 13.7 % Normal 11.0-15.0 [facility] Front Tender Comment on above: Order Comment: Quest performed at: [employer] [facility], [address] [facility], [address] [place] [address], [place], [address], Can Striper: Juan Daniel Cool MDQuest Collection Date/Time: [id number] Results Received Date/Time: [id number] Reported Date/Time: Performed By: #### T SH, CMP, LIPD #### [facility] [address] [place], [place] [id number] Hematocrit (Bld) [Volume fraction] 42.5 % Normal 38.5-50.0 [facility] Comment on above: Order Comment: Quest performed at: [employer] [facility], [address], [address] [place] [address], [address] [place] [address], Can Striper: Juan Daniel Mckeon Collection Date/Time: [id number] Results Received Date/Time: Reported Date/Time: Performed By: #### T SH, CMP, LIPD #### [facility] [address], [place] [id number] Hemoglobin (Bld) [Mass/Vol] 14.3 g/dL Normal 13.2-17.1 [facility] Comment on above: Order Comment: Quest performed at: [employer] [facility], [address] [facility], [address] [place] [address], [address] [place] [address], Can Striper: Juan Daniel Mckeon Collection Date/Time: Results Received Date/Time: Reported Date/Time: Performed By: #### T SH, CMP, LIPD #### [facility] [address], [place] [id number] MCH (RBC) [Entitic mass] 32.9 pg Normal 27.0-33.0 [facility] Comment on above: Order Comment: Quest performed at: [employer] [facility], [address] [facility], [address] [place] [address], [address] [place] [address], Can Striper: Juan Daniel Mckeon Collection Date/Time: Results Received Date/Time: [id number] Reported Date/Time: Performed By: #### T SH, CMP, LIPD #### [facility] [address] [place], [place] [id number] MCHC (RBC) [Mass/Vol] 33.6 g/dL Normal 32.0-36.0 [facility] Specialist Comment on above: Order Comment: Quest performed at: [employer] [facility], [address] [place] [address], [address] [place] [address], [address] [place] [address], Can Striper: Juan Daniel Mckeon Collection Date/Time: Results Received Date/Time: [id number] Reported Date/Time: Performed By: #### T SH, CMP, LIPD #### [facility] [address], [place] [id number] MCV (RBC) [Entitic vol] 97.9 fL Normal 80.0-100.0 N [facility] Specialist Comment on above: Order Comment: [facility] performed at: [employer] [facility], [address] [place] [address], [address] [place] [address], [address] [place] [address], Can Striper: Juan Daniel Mckeon Collection Date/Time: Results Received Date/Time: Reported Date/Time: Performed By: #### T SH, CMP, LIPD #### [facility] [address], [place] [id number] Platelet mean volume (Bld) [Entitic vol] 11.0 fL Normal 7.5-12.5 [facility] Specialist Comment on above: Order Comment: [facility] performed at: [employer] [facility], [address] [place] [address], [address] [place] [address], [address] [place] [address], Can Striper: Juan Daniel Mckeon Collection Date/Time: Results Received Date/Time: Reported Date/Time: Performed By: #### T SH, CMP, LIPD #### [facility] [address] [facility] [id number] Platelets (Bld) [#/Vol] 398 10*3/uL Normal 140-400 [facility] Comment on above: Order Comment: [facility] performed at: [employer] [facility], [address] [place] [address], [address] [place] [address], [address] [place] [address], Can Striper: Juan Daniel Mckeon Collection Date/Time: Results Received Date/Time: Reported Date/Time: Performed By: #### T SH, CMP, LIPD #### [facility] [address] [place], [place] [id number] RBC (Bld) [#/Vol] 4.34 10*6/uL Normal 4.20-5.80 [facility] Front Tender Comment on above: Order Comment: Quest performed at: [employer] [facility], [address] [place] [address], [address] [place] [address], [address] [place] [address], Can Striper: Juan Daniel Mckeon Collection Date/Time: Results Received Date/Time: [id number] Reported Date/Time: Performed By: #### T SH, CMP, LIPD #### [facility] [address], [place] [id number] WBC (Bld) [#/Vol] 9.7 10*3/uL Normal 3.8-10.8 Brigitte mcarthur [facility] Front Tender Comment on above: Order Comment: [facility] performed at: [employer] [facility], [address] [place] [address], [address] [place] [address], [address] [place] [address], Can Striper: Juan Daniel Mckeon Collection Date/Time: [id number] Results Received Date/Time: [id number] Reported Date/Time: Performed By: #### T SH, CMP, LIPD #### [facility] [address], [place] [id number] Comprehensive Metabolic Pane [facility] 03-08-2022 Albumin [Mass/Vol] 3.2 g/dL Low 3.6-5.1 [facility] Specialist Comment on above: Performed By: #### T SH, CMP, LIPD #### [facility] [address] [place], [place] [id number] Albumin/Globulin [Mass ratio] 1.2 {ratio} Normal 1.0-2.5 [facility] Specialist Comment on above: Performed By: #### T SH, CMP, LIPD #### [facility] [address], [place] [id number] ALP [Catalytic activity/Vol] 100 U/L Normal 40-129 [facility] Specialist Comment on above: Performed By: #### T SH, CMP, LIPD #### [facility] [address] [place], [place] [id number] ALT [Catalytic activity/Vol] 11 U/L Normal 9-46 [facility] Specialist Comment on above: Result Comment: 09/23 Female reference range changed. Performed By: #### T SH, CMP, LIPD #### [facility] [address] [place], [place] [id number] Anion gap [Moles/Vol] 18 mmol/L Normal 12-20 [facility] Comment on above: Result Comment: Effe ctive 10/29/2019 reference range changed. Performed By: #### T SH, CMP, LIPD #### [facility] [address] [place], [place] [id number] AST [Catalytic activity/Vol] 14 U/L Normal 10-40 [facility] Comment on above: Performed By: #### T SH, CMP, LIPD #### [facility] [address] [place], [place] [id number] Bilirubin [Mass/Vol] 1.17 mg/dL Normal 0.30-1.20 [facility] Comment on above: Performed By: #### T SH, CMP, LIPD #### [facility] [address] [place], [place] [id number] BUN/CREA 14 Ratio Normal 6-22 [facility] Specialist Comment on above: Performed By: #### T SH, CMP, LIPD #### [facility] [address], [place] [id number] Calcium [Mass/Vol] 8.3 mg/dL Low 8.6-10.2 Brigitte mcarthur [facility] Front Tender Comment on above: Performed By: #### T SH, CMP, LIPD #### [facility] [address], [place] [id number] Chloride [Moles/Vol] 103 mmol/L Normal 98-107 [facility] Specialist Comment on above: Performed By: #### T SH, CMP, LIPD #### [facility] [address], [place] [id number] CO2 [Moles/Vol] 25 mmol/L Normal 20-31 [facility] Specialist Comment on above: Performed By: #### T SH, CMP, LIPD #### [facility] [address], [place] [id number] Creatinine [Mass/Vol] 0.8 mg/dL Normal 0.7-1.4 [facility] Specialist Comment on above: Performed By: #### T SH, CMP, LIPD #### [facility] [address], [place] [id number] eGFRAA 118 mL/min/1.73m2 Normal >60 [facility] Specialist Comment on above: Performed By: #### T SH, CMP, LIPD #### [facility] [address], [place] [id number] eGFRNAA 97 mL/min/1.73m2 Normal >60 [facility] Specialist Comment on above: Performed By: #### T SH, CMP, LIPD #### [facility] [address] [place], [place] [id number] Globulin (S) [Mass/Vol] 2.6 g/dL Normal 1.9-3.7 [facility] Specialist Comment on above: Performed By: #### T SH, CMP, LIPD #### [facility] [address] [place], [place] [id number] Glucose [Mass/Vol] 110 mg/dL High 65-99 Brigitte mcarthur [facility] Comment on above: Result Comment: For FASTING Glucose --- ADA reference ranges: Normal 65-99 mg/dl Prediabetes 100-125 Diabetes >/= 126 Performed By: #### T SH, CMP, LIPD #### [facility] [address] [place], [place] [id number] Potassium [Moles/Vol] 3.5 mmol/L Normal 3.5-5.5 [facility] Specialist Comment on above: Performed By: #### T SH, CMP, LIPD #### [facility] [address], [place] [id number] Protein [Mass/Vol] 5.8 g/dL Low 6.1-8.1 Brigitte mcarthur [facility] Comment on above: Performed By: #### T SH, CMP, LIPD #### [facility] [address] [place], [place] [id number] Sodium [Moles/Vol] 142 mmol/L Normal 135-146 Brigitte mcarthur Bee Front Tender Comment on above: Performed By: #### T NELY, CMP, LIPD #### [facility] [address], [place] [id number] Urea nitrogen [Mass/Vol] 11 mg/dL Normal 7-25 [facility] Front [facility]ender Comment on above: Performed By: #### T SH, CMP, LIPD #### [facility] [address], [place] [id number] Lipid Panelon 03-08-2022 Cholesterol [Mass/Vol] 177 mg/dL Normal 125-200 No [facility] Comment on above: Result Comment: Low risk < 200mg/dL Borderline risk 201-239 mg/dl High risk > or equal to 240 Performed By: #### T SH, CMP, LIPD #### [facility] [address] [place], [place] [id number] Cholesterol in HDL [Mass/Vol] 87 mg/dL Normal >40 [facility] Comment on above: Result Comment: High Cardiovascular Risk HDL <40 mg/dL Low Cardiovascular Risk HDL > or equal to 60 mg/dl Performed By: #### T SH, CMP, LIPD #### [facility] [address] [place], [place] [id number] Cholesterol in LDL [Mass/Vol] 64 mg/dL Normal [facility] Comment on above: Result Comment: LDL ATP III CLASSIFICATION LDL less than 100 mg/dl Optimal LDL 100-129 mg/dl Near or above optimal LDL 130-159 Borderline high LDL 160-189 High LDL greater than 189 mg/dl Very High Performed By: #### T SH, CMP, LIPD #### [facility] [address], [place] [id number] Cholesterol in VLDL [Mass/Vol] 26 mg/dL Normal [facility] Comment on above: Performed By: #### T SH, CMP, LIPD #### [facility] [address] [place], [place] [id number] Cholesterol.total/Choles terol in HDL [Mass ratio] 2 {ratio} Normal [facility] Comment on above: Performed By: #### T SH, CMP, LIPD #### [facility] [address], [place] [id number] Triglyceride [Mass/Vol] 131 mg/dL Normal 30-150 N [facility] Comment on above: Result Comment: TRIG ATPIII CLASSIFICATIONS TRIG less than 150 mg/dl Normal TRIG 150-199 mg/dl Borderline High TRIG 200-500 mg/dl High TRIG greather than 500 mg/dl Very High Performed By: #### T SH, CMP, LIPD #### [facility] [address] [place], [place] [id number] PSA SCREEN (MEDICARE)on 02-21 TPSA 6.330 ng/mL High <4.000 [facility] Comment on above: Result Comment: PSA Test Method: ECLIA/Horacio e 601 Performed By: #### T SH, CMP, LIPD #### [facility] [address] [place], [place] [id number] TSHon 03-08-2022 TSH 1.060 uIU/mL Normal 0.400-4.50 0 [facility] Comment on above: Performed By: #### T SH, CMP, LIPD #### [facility] [address] [place], [place] [id number] Operative Reporton Operative Report MR#: [id number] I [facility] Pt. Name: Indio Collado Room #: [id number] Discharge 02/16/2022 Date: Birthdate: 1955 OPERATIVE REPORT DATE OF SURGERY: 02/15/2022 SURGEON: Luis Yang M.D. ALMOND PAN FINISHER: MD Kell and ANABELL Cedeño. ANESTHESIA: General [...] arthrotomy was closed itself with #2 interrupted [id number] suture. The remainder of the incision closed [...] 9. Biomet bone cement. Electronically Signed by: Luis Yang M.D. 02/19/2022 08:12 A Luis Yang M.D. Date Dict: 02/17/2022/07:28 Ricky/Luis Yang M.D. Date Trans: 02/17/2022 01:02 P/laisha [id number] cc: Luis Velazquez M.D. 3 [place] [address] Normal [facility] BASIC METABOLIC PANELon 04-2 Calcium [Mass/Vol] 8.1 mg/dL Low 8.6-10.3 [facility] Comment on above: Order Comment: No: D o not add to previous draw Performed By: #### 3 1595 #### [facility] [address] [place] [address], [place] Chloride [Moles/Vol] 101 mmol/L Normal 98-107 [facility] Comment on above: Order Comment: No: D o not add to previous draw Performed By: #### 3 1595 #### [facility] [address] [place] [address], [place] CO2 [Moles/Vol] 27 mmol/L Normal 21-31 [facility] Comment on above: Order Comment: No: D o not add to previous draw Performed By: #### 3 1595 #### [facility] [address] [place] [address], [place] Creatinine [Mass/Vol] 0.68 mg/dL Low 0.70-1.30 [facility] Comment on above: Order Comment: No: D o not add to previous draw Performed By: #### 3 1595 #### [facility] [address] [place] [address], [place] GFR/1.73 sq M.predicted among blacks MDRD (S/P/Bld) [Vol rate/Area] mL/min/{1.73_m2} Normal >60 [facility] Comment on above: Order Comment: No: D o not add to previous draw Performed By: #### 3 1595 #### [facility] [address] [place] [address], [place] GFR/1.73 sq M.predicted among non-blacks MDRD (S/P/Bld) [Vol rate/Area] mL/min/{1.73_m2} Normal >60 [facility] Comment on above: Order Comment: No: D o not add to previous draw Performed By: #### 3 1595 #### [facility] [address] [place] [id number], [facility] Glucose [Mass/Vol] 124 mg/dL High 70-100 [facility] Comment on above: Order Comment: No: D o not add to previous draw Performed By: #### 3 1595 #### [facility] [address] [place] [address], [facility] Potassium [Moles/Vol] 3.3 mmol/L Low 3.5-5.1 [facility] Comment on above: Order Comment: No: D o not add to previous draw Performed By: #### 3 1595 #### [facility] [address] [place] [address], [facility] Sodium [Moles/Vol] 136 mmol/L Normal 136-145 [facility] Comment on above: Order Comment: No: D o not add to previous draw Performed By: #### 3 1595 #### [facility] [address] [place] [address], [facility] Urea nitrogen [Mass/Vol] 11 mg/dL Normal 7-25 [facility] Comment on above: Order Comment: No: D o not add to previous draw Performed By: #### 3 1595 #### [facility] [address] [place] [id number], [facility] CBC W/DIFFon 02-16-2022 ABS IMM GRANS 0.1 10*3/uL Normal 0.0-0.2 [facility] Comment on above: Order Comment: No: D o not add to previous draw Performed By: #### 3 1595 #### [facility] [address] [place] [id number], [facility] ABS NEUTROPHILS 11.2 10*3/uL High 1.6-7.6 [facility] Comment on above: Order Comment: No: D o not add to previous draw Performed By: #### 3 1595 #### [facility] [address] [place] [address], [facility] Basophils (Bld) [#/Vol] 0.0 10*3/uL Normal 0.0-0.2 [facility] Comment on above: Order Comment: No: D o not add to previous draw Performed By: #### 3 1595 #### [facility] [address] [place] [address], [facility] Basophils/100 WBC (Bld) 0.1 % Normal 0.0-1.0 T [facility] Comment on above: Order Comment: No: D o not add to previous draw Performed By: #### 3 1595 #### [facility] [address] [place] [address], [facility] Eosinophils (Bld) [#/Vol] 0.0 10*3/uL Normal 0.0-0.5 [facility] Comment on above: Order Comment: No: D o not add to previous draw Performed By: #### 3 1595 #### [facility] [address] [place] [address], [facility] Eosinophils/100 WBC (Bld) 0.0 % Normal 0.0-6.0 [facility] Comment on above: Order Comment: No: D o not add to previous draw Performed By: #### 3 1595 #### [facility] [address] [place] [id number], [facility] Erythrocyte distribution width (RBC) [Ratio] 15.9 % High 11.5-15.0 [facility] Comment on above: Order Comment: No: D o not add to previous draw Performed By: #### 3 1595 #### [facility] [address] [place] [address], [facility] Hematocrit (Bld) [Volume fraction] 34.9 % Low 39.0-50.0 [facility] Comment on above: Order Comment: No: D o not add to previous draw Performed By: #### 3 1595 #### [facility] [address] [facility] [address], [facility] Hemoglobin (Bld) [Mass/Vol] 12.0 g/dL Low 13.0-17.0 [facility] Comment on above: Order Comment: No: D o not add to previous draw Performed By: #### 3 1595 #### [facility] [address] [address], [facility] IMMATURE GRANS 0.5 % Normal 0.0-1.0 [facility] Comment on above: Order Comment: No: D o not add to previous draw Performed By: #### 3 1595 #### [facility] [address] [facility] [address], [facility] Lymphocytes (Bld) [#/Vol] 0.8 10*3/uL Low 1.2-4.0 [facility] Comment on above: Order Comment: No: D o not add to previous draw Performed By: #### 3 1595 #### [facility] [address] [place] [address], [facility] Lymphocytes/100 WBC (Bld) 6.4 % Low 20.0-45.0 [facility] Comment on above: Order Comment: No: D o not add to previous draw Performed By: #### 3 1595 #### [facility] [address] [facility]. [place] [address], [facility] MCH (RBC) [Entitic mass] 31.9 pg Normal 27.0-33.0 [facility] Comment on above: Order Comment: No: D o not add to previous draw Performed By: #### 3 1595 #### [facility] [address] [facility]. [place] [address], [facility] MCHC (RBC) [Mass/Vol] 34.4 g/dL Normal 32.0-35.0 [facility] Comment on above: Order Comment: No: D o not add to previous draw Performed By: #### 3 1595 #### [facility] [address] [place] [address], [facility] MCV (RBC) [Entitic vol] 92.8 fL Normal 82.0-98.0 T [facility] Comment on above: Order Comment: No: D o not add to previous draw Performed By: #### 3 1595 #### [facility] [address] [place] [address], [facility] Monocytes (Bld) [#/Vol] 0.8 10*3/uL Normal 0.1-1.0 [facility] Comment on above: Order Comment: No: D o not add to previous draw Performed By: #### 3 1595 #### [facility] [address] [place] [address], [facility] MONOS 5.9 % Normal 5.0-12.0 [facility] Comment on above: Order Comment: No: D o not add to previous draw Performed By: #### 3 1595 #### [facility] [address] [place] [address], [facility] Neutrophils/100 WBC (Bld) 87.1 % High 40.0-72.0 [facility] Comment on above: Order Comment: No: D o not add to previous draw Performed By: #### 3 1595 #### [facility] [address] [place] [id number], [facility] Nucleated RBC/100 WBC (Bld) [Ratio] 0 % Normal 0-0 [facility] Comment on above: Order Comment: No: D o not add to previous draw Performed By: #### 3 1595 #### [facility] [address] [place] [address], [facility] PLAT CNT 250 10*3/uL Normal 150-400 [facility] Comment on above: Order Comment: No: D o not add to previous draw Performed By: #### 3 1595 #### [facility] [address] RBC (Bld) [#/Vol] 3.76 10*6/uL Low 4.20-5.70 [facility] Comment on above: Order Comment: No: D o not add to previous draw Performed By: #### 3 1595 #### [facility] [address] [facility]. [place] [address], [facility] WBC (Bld) [#/Vol] 12.88 10*3/uL High 4.00-10.60 [facility] Comment on above: Order Comment: No: D o not add to previous draw Performed By: #### 3 1595 #### [facility] [address] [facility]. [address] PROTHROMBIN TIMEon 2 INR Coag (PPP) [Relative time] 1.20 {INR} High 0.91-1.16 [facility] Comment on above: Order Comment: No: D [...] 1995;108:[id number]-246S. Performed By: #### 3 1595 #### [facility] [address] [place] [address], [facility] PT Coag (PPP) [Time] 15.2 s High 12.3-14.8 [facility] Comment on above: Order Comment: No: D o not add to previous draw Result Comment: ALL RESULTS MUST BE INTERPRETED WITH RESPECT TO BLOOD DRAWING ARTIFACT OR DILUTION ERROR OF ANTICOAGULANT AT THE TIME OF SAMPLING. Performed By: #### 3 1595 #### [facility] [address] *ANAEROBIC CULTUREon 022 *ANAEROBIC CULTURE Clinical Report: (D) Specimen/Source: TISSUE/INTRAOP SPEC Collected: 02/15/2022 10:06 Status: Final Last Updated: 02/20/2022 09:09 (1) 3. Right Medial Lateral Synovium CULT RES (Final) No Anaerobes Isolated 5 Days Normal [facility] Comment on above: Order Comment: 3. Ri ght Medial Lateral Synovium Performed By: #### 3 0312 #### [facility] [address] [facility]. [address] *ANAEROBIC CULTURE Clinical Report: (D) Specimen/Source: FLUID/INTRAOP SPEC Collected: 02/15/2022 10:06 Status: Final Last Updated: 02/20/2022 09:09 (1) 1. Right Knee Joint Fluid CULT RES (Final) No Anaerobes Isolated 5 Days Normal [facility] Comment on above: Order Comment: 1. Ri ght Knee Joint Fluid Performed By: #### 3 0312 #### [facility] [address] [facility] [address] *ANAEROBIC CULTURE Clinical Report: (D) Specimen/Source: TISSUE/INTRAOP SPEC Collected: 02/15/2022 10:06 Status: Final Last Updated: 02/20/2022 09:09 (1) 2. Right Knee Medial Synovium CULT RES (Final) No Anaerobes Isolated 5 Days Normal [facility] Comment on above: Order Comment: 2. Ri ght Knee Medial Synovium Performed By: #### 3 1595 #### [facility] [address] [place] [address], [facility] *BODY FLUID CULTUREon 2021 *BODY FLUID CULTURE Clinical Report: (D) Specimen/Source: FLUID/INTRAOP SPEC Collected: 02/15/2022 10:06 Status: Final Last Updated: 02/20/2022 07:33 (1) 1. Right Knee Joint Fluid GRAM (Final) Moderate Polys No Bacteria Seen CULT RES (Final) No Growth Day 5 Normal [facility] Comment on above: Order Comment: 1. Ri ght Knee Joint Fluid Performed By: #### 3 1595 #### [facility] [address] [place], [place] [id number] [place] [address] *TISSUE CULTUREon 02-15-2022 *TISSUE CULTURE Clinical Report: (D) Specimen/Source: TISSUE/INTRAOP SPEC Collected: 02/15/2022 10:06 Status: Final Last Updated: 02/20/2022 07:33 (1) 3. Right Medial Lateral Synovium GRAM (Final) Rare Polys No Bacteria Seen CULT RES (Final) No Growth Day 5 Normal [facility] Comment on above: Order Comment: 3. Ri ght Medial Lateral Synovium Performed By: #### 3 0338 #### [facility] [address] *TISSUE CULTURE Clinical Report: (D) Specimen/Source: TISSUE/INTRAOP SPEC Collected: 02/15/2022 10:06 Status: Final Last Updated: 02/20/2022 07:34 (1) 2. Right Knee Medial Synovium GRAM (Final) Moderate Polys No Bacteria Seen CULT RES (Final) No Growth Day 5 Normal [facility] Comment on above: Order Comment: 2. Ri ght Knee Medial Synovium Performed By: #### 3 0338 #### [facility] [address] [place] [address], [facility] APTTon 02-15-2022 aPTT Coag (Bld) [Time] 29.7 s Normal 25.0-35.0 Th e [facility] Comment on above: Order Comment: No: D [...] THIS PURPOSE. Performed By: #### 5 7307, 26584 #### [facility] [address] [place] [address], [facility] POC GLUCOSE LABon 02-15-2022 Glucose [Mass/Vol] 124 mg/dL High 70-100 [facility] Comment on above: Performed By: #### 8 5499 #### [facility] [address] [place] [address], [facility] Glucose [Mass/Vol] 97 mg/dL Normal 70-100 [facility] Comment on above: Performed By: #### 3 1595 #### [facility] [address] [facility] [place] [address], [facility] PORTABLE KNEE RIGHT 2 [facility] 02-15-2022 PORTABLE KNEE RIGHT 2 S [facility] Department of Radiology [address] [place] [id number] Patient Name: INDIO COLLADO : 1955 Sex: M Age: Race: White Pt. Location: OUTP Patient Status: I Ordered Date: 02/15/2022 11:10:00 AM Completed Date: 02/15/2022 12:47 PM Requesting Provider: LONNY CASTORENA Attending Provider: LUIS YANG Report Copy To: Signs & Symptoms: [...] since previous examination dated 12/08/2021 Electronically signed: Idnio Presley. Transcribed by: [email or web address], User Resident: Electronically Signed by: INDIO PRESLEY @ 02/15/2022 12:57 PM Normal [facility] Comment on above: Order Comment: Hardw are Evaluation, in PACU PROTHROMBIN TIMEon INR Coag (PPP) [Relative time] 1.14 {INR} Normal 0.91-1.16 [facility] Comment on above: Order Comment: No: D [...] CHEST 1995;108:[id number]. Performed By: #### 5 7307, 08990 #### [facility] [address] [place] [address], [facility] PT Coag (PPP) [Time] 14.6 s Normal 12.3-14.8 [facility] Comment on above: Order Comment: No: D o not add to previous draw Result Comment: ALL RESULTS MUST BE INTERPRETED WITH RESPECT TO BLOOD DRAWING ARTIFACT OR DILUTION ERROR OF ANTICOAGULANT AT THE TIME OF SAMPLING. Performed By: #### 5 7307, 980[address] #### [facility] [address] Complete Blood Count with Au to Diffon 02-05-2022 Basophils (Bld) [#/Vol] 0.06 10*3/uL Normal 0.00-0.20 [facility] Comment on above: Performed By: #### T NELY CMP, LIPD #### [facility] [address], [place] [id number] Basophils/100 WBC (Bld) 0.9 % Normal N [facility] Specialist Comment on above: Performed By: #### T NELY CMP, LIPD #### [facility] [address], [place] [id number] Eosinophils (Bld) [#/Vol] 0.10 10*3/uL Normal 0.02-0.50 [facility] Comment on above: Performed By: #### T SH, CMP, LIPD #### [facility] [address], [place] [id number] Eosinophils/100 WBC (Bld) 1.5 % Normal [facility] Comment on above: Performed By: #### T SH, CMP, LIPD #### [facility] [address], [place] [id number] Erythrocyte distribution width (RBC) [Ratio] 17.3 % High 11.0-15.0 [facility] Comment on above: Performed By: #### T SH, CMP, LIPD #### [facility] [address], [place] [id number] Hematocrit (Bld) [Volume fraction] 40.5 % Normal 38.5-50.0 [facility] Specialist Comment on above: Performed By: #### T NELY, CMP, LIPD #### [facility] [address], [place] [id number] Hemoglobin (Bld) [Mass/Vol] 13.5 g/dL Normal 13.0-17.1 [facility] Comment on above: Performed By: #### T NELY, CMP, LIPD #### [facility] [address] [place], [place] [id number] Lymphocytes (Bld) [#/Vol] 1.4 10*3/uL Normal 0.9-3.9 [facility] Specialist Comment on above: Performed By: #### T NELY CMP, LIPD #### [facility] [address], [place] [id number] Lymphocytes/100 WBC (Bld) 21.1 % Normal [facility] Specialist Comment on above: Performed By: #### T NELY, CMP, LIPD #### [facility] [address], [place] [id number] MCH (RBC) [Entitic mass] 31.3 pg Normal 27.0-33.0 [facility] Specialist Comment on above: Performed By: #### T NELY, CMP, LIPD #### [facility] [address], [place] [id number] MCHC (RBC) [Mass/Vol] 33.3 g/dL Normal 32.0-36.0 [facility] Specialist Comment on above: Performed By: #### T NELY, CMP, LIPD #### [facility] [address], [place] [id number] MCV (RBC) [Entitic vol] 94 fL Normal 80-100 N [facility] Specialist Comment on above: Performed By: #### T SH, CMP, LIPD #### [facility] [address], [place] [id number] Monocytes (Bld) [#/Vol] 0.4 10*3/uL Normal 0.2-0.9 [facility] Specialist Comment on above: Performed By: #### T NELY, CMP, LIPD #### [facility] [address], [place] [id number] Monocytes/100 WBC (Bld) 6.3 % Normal N [facility] Comment on above: Performed By: #### T SH, CMP, LIPD #### [facility] [address], [place] [id number] Neutrophils (Bld) [#/Vol] 4.6 10*3/uL Normal 1.5-7.8 [facility] Comment on above: Performed By: #### T SH, CMP, LIPD #### [facility] [address], [place] [id number] Neutrophils/100 WBC (Bld) 70.0 % Normal [facility] Comment on above: Performed By: #### T SH, CMP, LIPD #### [facility] [address], [place] [id number] Platelet mean volume (Bld) [Entitic vol] 10.10 fL Normal 7.50-12.50 [facility] Comment on above: Performed By: #### T SH, CMP, LIPD #### [facility] [address], [place] [id number] Platelets (Bld) [#/Vol] 280 10*3/uL Normal 140-400 [facility] Comment on above: Performed By: #### T SH, CMP, LIPD #### [facility] [address], [place] [id number] RBC (Bld) [#/Vol] 4.32 10*6/uL Normal 4.20-5.80 [facility] Comment on above: Performed By: #### T SH, CMP, LIPD #### [facility] [address], [place] [id number] RDW-SD 60.6 fL High 37.0-50.0 [facility] Comment on above: Performed By: #### T SH, CMP, LIPD #### [facility] [address], [place] [id number] WBC (Bld) [#/Vol] 6.6 10*3/uL Normal 3.8-11.0 [facility] Comment on above: Performed By: #### T SH, CMP, LIPD #### [facility] [address], [place] [id number] Comprehensive Metabolic Pane carl 02-05-2022 Albumin [Mass/Vol] 3.3 g/dL Low 3.6-5.1 [facility] Specialist Comment on above: Performed By: #### T SH, CMP, LIPD #### [facility] [address], [place] [id number] Albumin/Globulin [Mass ratio] 1.4 {ratio} Normal 1.0-2.5 [facility] Specialist Comment on above: Performed By: #### T SH, CMP, LIPD #### [facility] [address], [place] [id number] ALP [Catalytic activity/Vol] 102 U/L Normal 40-129 [facility] Specialist Comment on above: Performed By: #### T SH, CMP, LIPD #### [facility] [address], [place] [id number] ALT [Catalytic activity/Vol] 11 U/L Normal 9-46 [facility] Specialist Comment on above: Result Comment: 09/23 Female reference range changed. Performed By: #### T SH, CMP, LIPD #### [facility] [address], [place] [id number] Anion gap [Moles/Vol] 16 mmol/L Normal 12-20 [facility] Comment on above: Result Comment: Effe ctive 10/29/2019 reference range changed. Performed By: #### T SH, CMP, LIPD #### [facility] [address], [place] [id number] AST [Catalytic activity/Vol] 18 U/L Normal 10-40 [facility] Specialist Comment on above: Performed By: #### T SH, CMP, LIPD #### [facility] [address], [place] [id number] Bilirubin [Mass/Vol] 1.96 mg/dL High 0.30-1.20 [facility] Specialist Comment on above: Performed By: #### T SH, CMP, LIPD #### [facility] [address], [place] [id number] BUN/CREA 11 Ratio Normal 6-22 [facility] Comment on above: Performed By: #### T SH, CMP, LIPD #### [facility] [address], [place] [id number] Calcium [Mass/Vol] 8.7 mg/dL Normal 8.6-10.2 [facility] Comment on above: Performed By: #### T SH, CMP, LIPD #### [facility] [address], [place] [id number] Chloride [Moles/Vol] 105 mmol/L Normal 98-107 [facility] Comment on above: Performed By: #### T SH, CMP, LIPD #### [facility] [address], [place] [id number] CO2 [Moles/Vol] 23 mmol/L Normal 20-31 [facility] Comment on above: Performed By: #### T SH, CMP, LIPD #### [facility] [address], [place] [id number] Creatinine [Mass/Vol] 0.7 mg/dL Normal 0.7-1.4 [facility] Comment on above: Performed By: #### T SH, CMP, LIPD #### [facility] [address], [place] [id number] eGFRAA 139 mL/min/1.73m2 Normal >60 [facility] Specialist Comment on above: Performed By: #### T SH, CMP, LIPD #### [facility] [address], [place] [id number] eGFRNAA 115 mL/min/1.73m2 Normal >60 [facility] Comment on above: Performed By: #### T SH, CMP, LIPD #### [facility] [address], [place] [id number] Globulin (S) [Mass/Vol] 2.3 g/dL Normal 1.9-3.7 [facility] Comment on above: Performed By: #### T SH, CMP, LIPD #### [facility] [address], [place] [id number] Glucose [Mass/Vol] 94 mg/dL Normal 65-99 [facility] Comment on above: Result Comment: For FASTING Glucose --- ADA reference ranges: Normal 65-99 mg/dl Prediabetes 100-125 Diabetes >/= 126 Performed By: #### T NELY, CMP, LIPD #### [facility] [address], [place] [id number] Potassium [Moles/Vol] 3.7 mmol/L Normal 3.5-5.5 [facility] Comment on above: Performed By: #### T NELY, CMP, LIPD #### [facility] [address], [place] [id number] Protein [Mass/Vol] 5.6 g/dL Low 6.1-8.1 [facility] Comment on above: Performed By: #### T NEYL, CMP, LIPD #### [facility] [address], [place] [id number] Sodium [Moles/Vol] 140 mmol/L Normal 135-146 [facility] Comment on above: Performed By: #### T NELY, CMP, LIPD #### [facility] [address], [place] [id number] Urea nitrogen [Mass/Vol] 7 mg/dL Normal 7-25 [facility] Comment on above: Performed By: #### T NELY, CMP, LIPD #### [facility] [address], [place] [id number] Ferritinon 02-05-2022 FERR 128.6 ng/mL Normal 30.0-400.0 [facility] Comment on above: Performed By: #### T NELY, CMP, LIPD #### [facility] [address], [place] [id number] Iron Profileon 02-05-2022 %FESAT 18 % Normal 15-60 [facility] Comment on above: Performed By: #### T NELY, CMP, LIPD #### [facility] [address], [place] [id number] FE 45 ug/dL Low 50-180 [facility] Comment on above: Result Comment: Refe rence range change 09/09/2017. Prior reference range F 37-145 ug/dL, M 59-158 ug/dL. Performed By: #### T SH, CMP, LIPD #### [facility] [address], [place] [id number] TIBC 247 ug/dL Low 250-425 [facility] Comment on above: Performed By: #### T SH, CMP, LIPD #### [facility] [address], [place] [id number] UIBC 202 ug/dL Normal 112-347 [facility] Comment on above: Performed By: #### T SH, CMP, LIPD #### [facility] [address], [place] [id number] Magnesiumon 02-05-2022 Magnesium [Mass/Vol] 1.8 mg/dL Normal 1.5-2.3 [facility] Comment on above: Performed By: #### T SH, CMP, LIPD #### [facility] [address] [place], [place] [id number] Phosphoruson 02-05-2022 Phosphate [Mass/Vol] 3.2 mg/dL Normal 2.2-4.4 [facility] Comment on above: Performed By: #### T SH, CMP, LIPD #### [facility] [address], [place] [id number] Q - VITAMIN B1 (THIAMINE),BL OODon 02-05-2022 VITAMIN B1 (THIAMINE), BLOOD, LC/MS/MS 74 nmol/L Low 78-185 [facility] Comment on above: Order Comment: [facility] performed at: [facility], [facility], [address], [place], [place], , Can Striper: Alexis Abbott M.D.,PhDQuest Collection Date/Time: [id number] Results Received Date/Time: [id number] Reported Date/Time: Result Comment: Yolande min supplementation within 24 hours prior to blood draw may affect the accuracy of the results. This test was developed and its analytical performance characteristics have been determined by [facility] [place], [place]. It has not been cleared or approved by the U.S. Food and Drug Administration. This assay has been validated pursuant to the CLIA regulations and is used for clinical purposes. Performed By: #### T RAMONA MCKAY LIPD #### [facility] [address], [place] [id number] Q - VITAMIN D 25-OH Total IA on 02-05-2022 VIT D 25 OH 18 ng/mL Low 30-100 [facility] Comment on above: Order Comment: [facility] performed at: Q, [facility], [address] [facility], [address] [place] [address], [id number], Can Striper: Juan Daniel Cool MDQuest Collection Date/Time: [id number] Results Received Date/Time: [id number] Reported Date/Time: Result Comment: Yolande min D Status 25-OH Vitamin D: Deficiency: <20 ng/mL Insufficiency: 20 - 29 ng/mL Optimal: > or = 30 ng/mL For 25-OH Vitamin D testing on patients on D2-supplementation and patients for whom quantitation of D2 and D3 fractions is required, the QuestAssureD(TM) 25-OH VIT D, (D2,D3), LC/MS/MS is recommended: order code 64004 (patients >2yrs). See Note 1 Note 1 For additional information, please refer to http://[email or web address]/faq/TXV413 (This link is being provided for informational/ educational purposes only.) Performed By: #### T RAMONA MCKAY LIPD #### [facility] [address], [place] [id number] Vitamin B12/Folateon 022 Cobalamin (Vitamin B12) [Mass/Vol] 344 pg/mL Normal 211-946 [facility] Comment on above: Result Comment: Spec imen is hemolyzed. Results may be affected. Performed By: #### T RAMONA MCKAY LIPD #### [facility] [address] [place] [id number] FOL 12.7 ng/mL Normal >4.7 [facility] Comment on above: Result Comment: Refe rence range change 09/09/2017. Prior reference range F 4.8-37.3 ng/mL, M 4.5-32.2 ng/mL. Performed By: #### T SH, RAMONA, LIPD #### [facility] [address] [place] [id number] CT LOWER EXTREMITY WO CONTRA ST RIGHTon 01-02-2022 CT LOWER EXTREMITY WO CONTRAST RIGHT [facility] Department of Radiology [address] [place] [address] Patient Name: INDIO COLLADO : 1955 Sex: M Age: Race: White Pt. Location: Patient Status: D Ordered Date: 12/11/2021 12:05:00 PM Completed Date: 01/02/2022 02:10 PM Requesting Provider: LUIS YANG Attending Provider: Report Copy To: LUIS VELAZQUEZ Signs & Symptoms: T84.84XA Pain due to internal orthopedic prosth dev/grft, init I10 History: [place] Comments: right knee Exam: CT LOWER EXTREMITY [...] wear. Approved by:Eva Ken01/04/2022 8:11 AM. I, Rosy Grant,have reviewed the image(s) and agree with the findings in this report. Electronically signed: Rosy Grant. Transcribed by: [email or web address], User Resident: EVA RAMIREZ Electronically Signed by: ROSY GRANT @ 01/04/2022 09:38 AM I personally read this/these film(s) with this resident Normal [facility] Comment on above: Order Comment: right knee *MRSA/MSSA DNA NASALon 12-08 *MRSA/MSSA DNA NASAL Clinical Report: (D ) Specimen: NASAL SWAB Collected: 12/08/2021 14:59 Status: Final Last Updated: 12/08/2021 21:27 MSSA DNA (Final) Negative MRSA DNA (Final) Methicillin Resistant Staphylococcus aureus DNA Detected Normal [facility] Comment on above: Performed By: #### 3 1595 #### [address] C REACTIVE PROTEINon 022 CRP [Mass/Vol] 7.2 mg/L High 0.0-7.0 [facility] Comment on above: Performed By: #### 3 1595 #### [facility] [address] [place], [place] [id number] [place] [address] KNEE RIGHT 3 VWSon KNEE RIGHT 3 VWS [facility] Department of Radiology [address] [place] [id number] Patient Name: INDIO COLLADO : 1955 Sex: M Age: Race: Other Pt. Location: Patient Status: D Ordered Date: 12/08/2021 1:45:00 PM Completed Date: 12/08/2021 01:50 PM Requesting Provider: LUIS YANG Attending Provider: Report Copy To: Signs & Symptoms: Z96.659 Presence of unspecified artificial knee joint I10 History: [place] Comments: Evaluate Exam: KNEE RIGHT 3 VWS KNEE RIGHT 3 VWS HISTORY: Recent fall, knee pain. COMPARISON: None. IMPRESSION: 1. No fracture or dislocation. Small to moderate knee joint effusion. 2. No hardware complication. Vascular calcifications. Electronically signed: Kehinde Hahn. Transcribed by: [email or web address], User Resident: Electronically Signed by: KEHINDE HAHN @ 12/09/2021 02:13 PM Normal [facility] Comment on above: Order Comment: Evalu ate Q - MICROALBUMIN,RANDOM URIN E (W/CREAT)on 11-17-2021 Albumin DL <= 20 mg/L (U) [Mass/Vol] 5.3 mg/dL Normal See Note: [facility] Comment on above: Order Comment: [facility] Testing performed at: [employer], [facility], [address] [place] [address], [address] [place] [address], [address] [place] [address], Can Striper: Juan Daniel Cool MD [facility] Collection Date/Time: [facility] Results Received Date/Time: [facility] Reported Date/Time: Result Comment: Refe rence Range: Reference Range Not established Performed By: #### 6 517X #### [facility] Default [address] [place] [address] Creatinine (U) [Mass/Vol] 173 mg/dL Normal 20-320 [facility] Comment on above: Order Comment: [facility] Testing performed at: [facility], [facility], [address] [facility], [address] [place] [address], [address] [place] [address], Can Striper: Juan Daniel Cool MD [facility] Date/Time: [facility] Results Received Date/Time: [facility] Reported Date/Time: Performed By: #### 6 517X #### [facility] Default [address] [place] [address] MICROALBUMIN/CREATININE RATIO, RANDOM URINE 31 mcg/mg creat High <30 [facility] Comment on above: Order Comment: [facility] Testing performed at: [employer], [facility], [address] [facility], [address] [place] [address], [address] [place] [address], Can Striper: Juan Daniel Cool MD [facility] Collection Date/Time: [facility] Results Received Date/Time: [facility] Reported Date/Time: [id number] Result Comment: The ADA defines abnormalities in [...] 6 517X #### [facility] [address] [place] [address] RESPIRATORY PANEL PLUSon Adenovirus Not detected Normal NOT DETECTED [facility] Comment on above: Performed By: #### R SPLUS ####[facility] [address] [place], [place] [address]Dr. Yilan Real B. Parapertusis Not detected Normal NOT DETECTED [facility] Comment on above: Performed By: #### R SPLUS ####[facility] [address] [place], [place] [address]Dr. Yilan Real B. Pertussis Not detected Normal NOT DETECTED [facility] Comment on above: Performed By: #### R SPLUS ####[facility] [address] [place], [place] [address]Dr. Yilan Real Chlamydia Pneumoniae Not detected Normal NOT DETECTED [facility] Comment on above: Performed By: #### R SPLUS ####[facility] [address] [place], [place] [address]Dr. Yilan Real Coronavirus 229E Not detected Normal NOT DETECTED [facility] Comment on above: Performed By: #### R SPLUS ####[facility] [address] [place], [place] [address]Dr. Yilan Real Coronavirus HKU1 Not detected Normal NOT DETECTED [facility] Comment on above: Performed By: #### R SPLUS ####[facility] [address] [place], [place] [address]Dr. Yilan Real Coronavirus NL63 Not detected Normal NOT DETECTED [facility] Comment on above: Performed By: #### R SPLUS ####[facility] [address] [place], [place] [address]Dr. Yilan Real Coronavirus OC43 Not detected Normal NOT DETECTED [facility] Comment on above: Performed By: #### R SPLUS ####[facility] [address] [place], [place] [address]Dr. Chris Real Influenza A H1 2009 Not detected Normal NOT DETECTED [facility] Comment on above: Performed By: #### R SPLUS ####[facility] [address] [place], [place] [address]Dr. Chris Real Influenza A H3 Not detected Normal NOT DETECTED [facility] Comment on above: Performed By: #### R SPLUS ####[facility] [address] [place], [place] [address]Dr. Chris Real Influenza B Not detected Normal NOT DETECTED [facility] Comment on above: Performed By: #### R SPLUS ####[facility] [address] [place], [place] [address]Dr. Chris [facility] Metapneumovirus Not detected Normal NOT DETECTED [facility] Comment on above: Performed By: #### R SPLUS ####[facility] [address] [place], [place] [address]Dr. Chris Real Mycoplas. Pneumoniae Not detected Normal NOT DETECTED [facility] Comment on above: Performed By: #### R SPLUS ####[facility] [address] [place], [place] [address]Dr. Chris Real Parainfluenza 1 Not detected Normal NOT DETECTED [facility] Comment on above: Performed By: #### R SPLUS ####[facility] [address] [place], [place] [address]Dr. Chris Real Parainfluenza 2 Not detected Normal NOT DETECTED [facility] Comment on above: Performed By: #### R SPLUS ####[facility] [address] [place], [place] [address]Dr. Chris Real Parainfluenza 3 Not detected Normal NOT DETECTED [facility] Comment on above: Performed By: #### R SPLUS ####[facility] [address] [place], [place] [address]Dr. Chris Real Parainfluenza 4 Not detected Normal NOT DETECTED [facility] Comment on above: Performed By: #### R SPLUS ####[facility] [address] [address]Dr. Chris Real Rhino/Enterovirus Not detected Normal NOT DETECTED [facility] Comment on above: Performed By: #### R SPLUS ####[facility] [address] [id number]. Chris Real RP2 Header 1 RESPIRATORY PANEL: VIRUSES Normal [facility] Comment on above: Performed By: #### R SPLUS ####[facility] [address] [place], [place] [address]Dr. Chris Real RP2 Header 2 RESPIRATORY PANEL: BACTERIA Normal [facility] Comment on above: Performed By: #### R SPLUS ####[facility] [address] [place], [place] [address]Dr. Chris Farhan RSV Not detected Normal NOT DETECTED [facility] Comment on above: Performed By: #### R SPLUS ####[facility] [address] [place], [place] [address]Dr. Chris Real SARS-CoV-2 (COVID-19) RNA GAIL+probe Ql (Unsp spec) Detected Critically abnormal NOT DETECTED [facility] Comment on above: Performed By: #### R SPLUS ####[facility] [address] [place], [place] [address]Dr. Chris Real Complete Blood Count with Au to Diffon 10-08-2021 Basophils (Bld) [#/Vol] 0.07 10*3/uL Normal 0.00-0.20 [facility] Comment on above: Performed By: #### V ITD, MG, PHOS, FERR, CBCAD, FE Prof, CMP #### [facility] [address], [place] [id number] Basophils/100 WBC (Bld) 0.9 % Normal [facility] Comment on above: Performed By: #### V ITD, MG, PHOS, FERR, CBCAD, FE Prof, CMP #### [facility] [address] [place], [place] [id number] Eosinophils (Bld) [#/Vol] 0.20 10*3/uL Normal 0.02-0.50 [facility] Comment on above: Performed By: #### V ITD, MG, PHOS, FERR, CBCAD, FE Prof, CMP #### [facility] [address] [place], [place] [id number] Eosinophils/100 WBC (Bld) 2.6 % Normal [facility] Comment on above: Performed By: #### V ITD, MG, PHOS, FERR, CBCAD, FE Prof, CMP #### [facility] [address] [place], [place] [id number] Erythrocyte distribution width (RBC) [Ratio] 15.0 % Normal 11.0-15.0 [facility] Comment on above: Performed By: #### V ITD, MG, PHOS, FERR, CBCAD, FE Prof, CMP #### [facility] [address] [place], [place] [id number] Hematocrit (Bld) [Volume fraction] 45.1 % Normal 38.5-50.0 [facility] Comment on above: Performed By: #### V ITD, MG, PHOS, FERR, CBCAD, FE Prof, CMP #### [facility] [address] [place], [place] [id number] Hemoglobin (Bld) [Mass/Vol] 14.7 g/dL Normal 13.0-17.1 [facility] Comment on above: Performed By: #### V ITD, MG, PHOS, FERR, CBCAD, FE Prof, CMP #### [facility] [address] [place], [place] [id number] Lymphocytes (Bld) [#/Vol] 1.8 10*3/uL Normal 0.9-3.9 [facility] Comment on above: Performed By: #### V ITD, MG, PHOS, FERR, CBCAD, FE Prof, CMP #### [facility] [address] [place], [place] [id number] Lymphocytes/100 WBC (Bld) 23.4 % Normal [facility] Comment on above: Performed By: #### V ITD, MG, PHOS, FERR, CBCAD, FE Prof, CMP #### [facility] [address] [place], [place] [id number] MCH (RBC) [Entitic mass] 28.1 pg Normal 27.0-33.0 [facility] Comment on above: Performed By: #### V ITD, MG, PHOS, FERR, CBCAD, FE Prof, CMP #### [facility] [address] [place], [place] [id number] MCHC (RBC) [Mass/Vol] 32.6 g/dL Normal 32.0-36.0 [facility] Comment on above: Performed By: #### V ITD, MG, PHOS, FERR, CBCAD, FE Prof, CMP #### [facility] [address] [place], [place] [id number] MCV (RBC) [Entitic vol] 86 fL Normal 80-100 [facility] Comment on above: Performed By: #### V ITD, MG, PHOS, FERR, CBCAD, FE Prof, CMP #### [facility] [address] [place], [place] [id number] Monocytes (Bld) [#/Vol] 0.5 10*3/uL Normal 0.2-0.9 [facility] Comment on above: Performed By: #### V ITD, MG, PHOS, FERR, CBCAD, FE Prof, CMP #### [facility] [address] [place], [place] [id number] Monocytes/100 WBC (Bld) 6.7 % Normal [facility] Comment on above: Performed By: #### V ITD, MG, PHOS, FERR, CBCAD, FE Prof, CMP #### [facility] [address] [place], [place] [id number] Neutrophils (Bld) [#/Vol] 5.2 10*3/uL Normal 1.5-7.8 [facility] Comment on above: Performed By: #### V ITD, MG, PHOS, FERR, CBCAD, FE Prof, CMP #### [facility] [address] [place], [place] [id number] Neutrophils/100 WBC (Bld) 66.3 % Normal [facility] Comment on above: Performed By: #### V ITD, MG, PHOS, FERR, CBCAD, FE Prof, CMP #### [facility] [address] [place], [place] [id number] Platelet mean volume (Bld) [Entitic vol] 10.40 fL Normal 7.50-12.50 [facility] Comment on above: Performed By: #### V ITD, MG, PHOS, FERR, CBCAD, FE Prof, CMP #### [facility] [address] [place], [place] [id number] Platelets (Bld) [#/Vol] 302 10*3/uL Normal 140-400 [facility] Comment on above: Performed By: #### V ITD, MG, PHOS, FERR, CBCAD, FE Prof, CMP #### [facility] [address] [place], [place] [id number] RBC (Bld) [#/Vol] 5.23 10*6/uL Normal 4.20-5.80 [facility] Comment on above: Performed By: #### V ITD, MG, PHOS, FERR, CBCAD, FE Prof, CMP #### [facility] [address] [place], [place] [id number] RDW-SD 46.8 fL Normal 37.0-50.0 [facility] Comment on above: Performed By: #### V ITD, MG, PHOS, FERR, CBCAD, FE Prof, CMP #### [facility] [address] [place], [place] [id number] WBC (Bld) [#/Vol] 7.8 10*3/uL Normal 3.8-11.0 [facility] Comment on above: Performed By: #### V ITD, MG, PHOS, FERR, CBCAD, FE Prof, CMP #### [facility] [address] [place], [place] [id number] Comprehensive Metabolic [facility]ane [facility] 10-08-2021 Albumin [Mass/Vol] 3.7 g/dL Normal 3.6-5.1 [facility] Comment on above: Performed By: #### V ITD, MG, PHOS, FERR, CBCAD, FE Prof, CMP #### [facility] [address] [place], [place] [id number] Albumin/Globulin [Mass ratio] 1.2 {ratio} Normal 1.0-2.5 [facility] Comment on above: Performed By: #### V ITD, MG, PHOS, FERR, CBCAD, FE Prof, CMP #### [facility] [address] [place], [place] [id number] ALP [Catalytic activity/Vol] 127 U/L Normal 40-129 [facility] Comment on above: Performed By: #### V ITD, MG, PHOS, FERR, CBCAD, FE Prof, CMP #### [facility] [address] [place], [place] [id number] ALT [Catalytic activity/Vol] 21 U/L Normal 9-46 [facility] Comment on above: Result Comment: 09/23 Female reference range changed. Performed By: #### V ITD, MG, PHOS, FERR, CBCAD, FE Prof, CMP #### [facility] [address] [place], [place] [id number] Anion gap [Moles/Vol] 20 mmol/L Normal 12-20 [facility] Comment on above: Result Comment: Effe ctive 10/29/2019 reference range changed. Performed By: #### V ITD, MG, PHOS, FERR, CBCAD, FE Prof, CMP #### [facility] [address], [place] [id number] AST [Catalytic activity/Vol] 25 U/L Normal 10-40 [facility] Comment on above: Performed By: #### V ITD, MG, PHOS, FERR, CBCAD, FE Prof, CMP #### [facility] [address] [place], [place] [id number] Bilirubin [Mass/Vol] 1.05 mg/dL Normal 0.30-1.20 [facility] Comment on above: Performed By: #### V ITD, MG, PHOS, FERR, CBCAD, FE Prof, CMP #### [facility] [address] [place], [place] [id number] BUN/CREA 11 Ratio Normal 6-22 [facility] Comment on above: Performed By: #### V ITD, MG, PHOS, FERR, CBCAD, FE Prof, CMP #### [facility] [address] [place], [place] [id number] Calcium [Mass/Vol] 9.7 mg/dL Normal 8.6-10.2 [facility] Comment on above: Performed By: #### V ITD, MG, PHOS, FERR, CBCAD, FE Prof, CMP #### [facility] [address] [place], [place] [id number] Chloride [Moles/Vol] 99 mmol/L Normal 98-107 [facility] Comment on above: Performed By: #### V ITD, MG, PHOS, FERR, CBCAD, FE Prof, CMP #### [facility] [address] [place], [place] [id number] CO2 [Moles/Vol] 24 mmol/L Normal 20-31 [facility] Comment on above: Performed By: #### V ITD, MG, PHOS, FERR, CBCAD, FE Prof, CMP #### [facility] [address] [place], [place] [id number] Creatinine [Mass/Vol] 0.9 mg/dL Normal 0.7-1.4 [facility] Comment on above: Performed By: #### V ITD, MG, PHOS, FERR, CBCAD, FE Prof, CMP #### [facility] [address], [place] [id number] eGFRAA 107 mL/min/1.73m2 Normal >60 [facility] Comment on above: Performed By: #### V ITD, MG, PHOS, FERR, CBCAD, FE Prof, CMP #### [facility] [address] [place], [place] [id number] eGFRNAA 88 mL/min/1.73m2 Normal >60 [facility] Comment on above: Performed By: #### V ITD, MG, PHOS, FERR, CBCAD, FE Prof, CMP #### [facility] [address] [place], [place] [id number] Globulin (S) [Mass/Vol] 3.0 g/dL Normal 1.9-3.7 [facility] Comment on above: Performed By: #### V ITD, MG, PHOS, FERR, CBCAD, FE Prof, CMP #### [facility] [address] [place], [place] [id number] Glucose [Mass/Vol] 136 mg/dL High 65-99 [facility] Comment on above: Result Comment: For FASTING Glucose --- ADA reference ranges: Normal 65-99 mg/dl Prediabetes 100-125 Diabetes >/= 126 Performed By: #### V ITD, MG, PHOS, FERR, CBCAD, FE Prof, CMP #### [facility] [address] [place], [place] [id number] Potassium [Moles/Vol] 3.3 mmol/L Low 3.5-5.5 [facility] Comment on above: Performed By: #### V ITD, MG, PHOS, FERR, CBCAD, FE Prof, CMP #### [facility] [address] [place], [place] [id number] Protein [Mass/Vol] 6.7 g/dL Normal 6.1-8.1 [facility] Comment on above: Performed By: #### V ITD, MG, PHOS, FERR, CBCAD, FE Prof, CMP #### [facility] [address] [place], [place] [id number] Sodium [Moles/Vol] 140 mmol/L Normal 135-146 [facility] Comment on above: Performed By: #### V ITD, MG, PHOS, FERR, CBCAD, FE Prof, CMP #### [facility] [address] [place], [place] [id number] Urea nitrogen [Mass/Vol] 10 mg/dL Normal 7-25 [facility] Comment on above: Performed By: #### V ITD, MG, PHOS, FERR, CBCAD, FE Prof, CMP #### [facility] [address] [place], [place] [id number] Ferritinon 10-08-2021 FERR 127.3 ng/mL Normal 30.0-400.0 [facility] Comment on above: Performed By: #### V ITD, MG, PHOS, FERR, CBCAD, FE Prof, CMP #### [facility] [address] [place], [place] [id number] Iron Profileon 10-08-2021 %FESAT 13 % Low 15-60 [facility] Comment on above: Performed By: #### V ITD, MG, PHOS, FERR, CBCAD, FE Prof, CMP #### [facility] [address] [place], [place] [id number] FE 41 ug/dL Low 50-180 [facility] Comment on above: Result Comment: Refe rence range change 09/09/2017. Prior reference range F 37-145 ug/dL, M 59-158 ug/dL. Performed By: #### V ITD, MG, PHOS, FERR, CBCAD, FE Prof, CMP #### [facility] [address] [place], [place] [id number] TIBC 318 ug/dL Normal 250-425 [facility] Comment on above: Performed By: #### V ITD, MG, PHOS, FERR, CBCAD, FE Prof, CMP #### [facility] [address] [place], [place] [id number] UIBC 277 ug/dL Normal 112-347 [facility] Comment on above: Performed By: #### V ITD, MG, PHOS, FERR, CBCAD, FE Prof, CMP #### [facility] [address] [place], [place] [id number] Magnesiumon 10-08-2021 Magnesium [Mass/Vol] 1.9 mg/dL Normal 1.5-2.3 [facility] Comment on above: Performed By: #### V ITD, MG, PHOS, FERR, CBCAD, FE Prof, CMP #### [facility] [address] [place], [place] [id number] Phosphoruson 10-08-2021 Phosphate [Mass/Vol] 2.4 mg/dL Normal 2.2-4.4 [facility] Comment on above: Performed By: #### V ITD, MG, PHOS, FERR, CBCAD, FE Prof, CMP #### [facility] [address] [place], [place] [id number] Q - VITAMIN B1 PLASMAon 09-23 VITAMIN B1 (THIAMINE), SERUM/PLASMA, LC/MS/MS <6 Low 8-30 [facility] Comment on above: Order Comment: Quest performed at: [facility], [facility], [address], [place], [place], , Can Striper: Alexis Abbott M.D.,PhDQuest Collection Date/Time: [id number] Results Received Date/Time: [id number] Reported Date/Time: [id number] Result Comment: Yolande min supplementation within 24 hours prior to blood draw may affect the accuracy of the results. This test was developed and its analytical performance characteristics have been determined by [employer] [place], [place]. It has not been cleared or approved by the U.S. Food and Drug Administration. This assay has been validated pursuant to the CLIA regulations and is used for clinical purposes. Performed By: #### T RAMONA MCKAY LIPD #### [facility] [address] [place], [place] [id number] Vitamin B12/Folateon 021 Cobalamin (Vitamin B12) [Mass/Vol] 523 pg/mL Normal 211-946 [facility] Comment on above: Performed By: #### T RAMONA MCKAY, LIPD #### [facility] [address] [place], [place] [id number] FOL 8.2 ng/mL Normal >4.7 [facility] Comment on above: Result Comment: Refe rence range change 09/09/2017. Prior reference range F 4.8-37.3 ng/mL, M 4.5-32.2 ng/mL. Performed By: #### T RAMONA MCKAY LIPD #### [facility] [address] [place], [place] [id number] Vitamin D 25-OHon 10-08-2021 VIT D 25 OH 25 ng/ml Low >29 [facility] Comment on above: Result Comment: Yolande min D Status Deficiency <20 ng/mL Insufficiency 20-29 ng/mL Optimal 30-100 ng/mL Possible Toxicity >=150 ng/mL Performed By: #### T RAMONA MCKAY, LIPD #### [facility] [address] [place], [place] [id number] CT ABD/PELVIS WO CONon 09-01 CT ABD/PELVIS [...] Ema WALSH Date: 2021-08-31 23:19 Normal [facility] AMYLASEon 08-31-2021 Amylase [Catalytic activity/Vol] 34 U/L Normal 31-110 [facility] Comment on above: Performed By: #### L IPA, MIHAELA, CMP #### [facility] [address] [address] [address] Chris Real CBC AUTO DIFFon 08-31-2021 BASO # 0.1 103/ul Normal 0.0-0.1 [facility] Comment on above: Performed By: #### C BC #### [facility] [address] [place] [address] Dr. Chris Real Basophils/100 WBC (Bld) 0.6 % Normal 0.2-2.0 [facility] Comment on above: Performed By: #### C BC #### [facility] [address] [place] [address] Dr. Chris Real EO # 0.2 103/ul Normal 0.0-0.7 [facility] Comment on above: Performed By: #### C BC #### [facility] [address] [place] [address] Dr. Chris Real Eosinophils/100 WBC (Bld) 2.3 % Normal 0.9-7.0 [facility] Comment on above: Performed By: #### C BC #### [facility] [address] [place] [address] Dr. Chris Real Erythrocyte distribution width (RBC) [Ratio] 14.6 % Normal 11.0-15.0 [facility] Comment on above: Performed By: #### C BC #### [facility] [address] [place] [address] Dr. Chris Real Hematocrit (Bld) [Volume fraction] 38.6 % Critically low 42.0-54.0 [facility] Comment on above: Performed By: #### C BC #### [facility] [address] [place] [address] Dr. Chris Real Hemoglobin (Bld) [Mass/Vol] 12.6 g/dL Critically low 14.0-18.0 [facility] Comment on above: Performed By: #### C BC #### [facility] [address] [place] [address] Dr. Chris Real IG # 0.02 10e3/ul Normal 0.00-0.03 [facility] Comment on above: Performed By: #### C BC #### [facility] [address] [place] [address] Dr. Chris Real IG % 0.2 % Normal 0.0-0.5 [facility] Comment on above: Performed By: #### C BC #### [facility] [address] [place] [address] Dr. Chris Real LYMPH # 1.9 103/ul Normal 1.2-3.8 [facility] Comment on above: Performed By: #### C BC #### [facility] [address] [place] [address] Dr. Chris Real Lymphocytes/100 WBC (Bld) 23.8 % Normal 20.5-60.0 [facility] Comment on above: Performed By: #### C BC #### [facility] [address] [place] [address] Dr. Chris Real MANUAL DIFF REQ NO Normal [facility] Comment on above: Performed By: #### C BC #### [facility] [address] [place] [address] Dr. Chris Real MCH (RBC) [Entitic mass] 29.1 pg Normal 25.9-34.0 [facility] Comment on above: Performed By: #### C BC #### [facility] [address] [place] [address] Dr. Chris Real MCHC (RBC) [Mass/Vol] 32.6 g/dL Normal 29.9-35.2 [facility] Comment on above: Performed By: #### C BC #### [facility] [address] [place] [address] Dr. Chris Real MCV (RBC) [Entitic vol] 89.1 fL Normal 80.0-94.0 [facility] Comment on above: Performed By: #### C BC #### [facility] [address] [place] [address] Dr. Chris Real MONO # 0.8 103/ul Normal 0.3-0.8 [facility] Comment on above: Performed By: #### C BC #### [facility] [address] [place] [address] Dr. Chris Real Monocytes/100 WBC (Bld) 10.3 % Normal 1.7-12.0 [facility] Comment on above: Performed By: #### C BC #### [facility] [address] [place] [address] Dr. Chris Real NEUT # 5.1 103/ul Normal 1.4-6.5 [facility] Comment on above: Performed By: #### C BC #### [facility] [address] [place] [address] Dr. Chris Real Neutrophils/100 WBC (Bld) 62.8 % Normal 43.0-75.0 [facility] Comment on above: Performed By: #### C BC #### [facility] [address] [place] [address] Dr. Chris Real Platelet mean volume (Bld) [Entitic vol] 10.4 fL Normal 9.5-13.5 [facility] Comment on above: Performed By: #### C BC #### [facility] [address] [place] [address] Dr. Chris Real PLT 325 103/ul Normal 150-450 [facility] Comment on above: Performed By: #### C BC #### [facility] [address] [place] [address] Dr. Chris Real RBC 4.33 106/ul Critically low 4.70-6.10 [facility] Comment on above: Performed By: #### C BC #### [facility] [address] [place] [address] Dr. Chris Real WBC 8.1 103/ul Normal 4.0-11.0 [facility] Comment on above: Performed By: #### C BC #### [facility] [address] [place] [address] Dr. Chris Real Covid-19 PCR (CVDTB)on SARS-CoV-2 (COVID-19) RNA GAIL+probe Ql (Unsp spec) Not detected Normal NOT DETECTED [facility] Comment on above: Result Comment: When diagnostic testing is negative, the possibility of a false negative should be considered in the context of a patient's recent exposures and the presence of clinical signs and symptoms consistent with SARS-CoV-2. This test is not yet approved or cleared by the [place] Food and Drug Administration (FDA). This test was developed by [employer], [place], [place]. The performance characteristics of this test were validated by [facility]. The results are not intended to be used as the sole means for clinical diagnosis or patient management decisions. [facility] is authorized under Clinical Laboratory Improvement Amendments (CLIA) to perform high- complexity testing. Performed By: #### C VDTB #### [facility] [address] [place] [address] Dr. Chris Real LIPASEon 08-31-2021 Lipase [Catalytic activity/Vol] 109.0 U/L Normal 23.0-300.0 [facility] Comment on above: Performed By: #### L MIHAELA SO, CMP #### [facility] [address] [place] [address] Dr. Chris Real PROF 14(COMP METB)on 021 Albumin [Mass/Vol] 2.7 g/dL Critically low 3.5-5.0 [facility] Comment on above: Performed By: #### L MIHAELA SO, CMP #### [facility] [address] [place] [address] Dr. Chris Real Albumin/Globulin [Mass ratio] 0.6 {ratio} Normal [facility] Comment on above: Performed By: #### L MIHAELA SO, CMP #### [facility] [address] [place] [address] Dr. Chris Real ALP [Catalytic activity/Vol] 110 U/L Normal 38-126 [facility] Comment on above: Performed By: #### L MIHAELA SO, CMP #### [facility] [address] [place] [address] Dr. Chris Real ALT [Catalytic activity/Vol] 19 U/L Critically low 21-72 [facility] Comment on above: Performed By: #### L MIHAELA SO, CMP #### [facility] [address] [place] [address] Dr. Chris Real Anion gap [Moles/Vol] 12.8 mmol/L Normal Th [facility] Comment on above: Performed By: #### L MIHAELA SO, CMP #### [facility] [address] [place] [address] Dr. Chris Real AST [Catalytic activity/Vol] 23 U/L Normal 17-59 [facility] Comment on above: Performed By: #### L MIHAELA SO, CMP #### [facility] [address] [place] [address] Dr. Chris Real Bilirubin [Mass/Vol] 1.0 mg/dL Normal 0.2-1.3 [facility] Comment on above: Performed By: #### L MIHAELA SO, CMP #### [facility] [address] [place] [address] Dr. Chris Real Calcium [Mass/Vol] 8.6 mg/dL Normal 8.4-10.2 [facility] Comment on above: Performed By: #### L MIHAELA SO, CMP #### [facility] [address] [place] [address] Dr. Chris Real Chloride [Moles/Vol] 98 mmol/L Normal 98-107 [facility] Comment on above: Performed By: #### L MIHAELA SO, CMP #### [facility] [address] [place] [address] Dr. Chris Real CO2 [Moles/Vol] 29.1 mmol/L Normal 22.0-30.0 [facility] Comment on above: Performed By: #### L MIHAELA SO, CMP #### [facility] [address] [address] [address] Chris Real Creatinine [Mass/Vol] 1.16 mg/dL Normal 0.66-1.25 [facility] Comment on above: Performed By: #### L MIHAELA SO, CMP #### [facility] [address] [place] [address] Dr. Chris Real EGFR-AF CHILEAN >60 Normal >=60 [facility] Comment on above: Performed By: #### L MIHAELA SO, CMP #### [facility] [address] [place] [address] Dr. Chris Real EGFR-NON AF CHILEAN >60 Normal >=60 [facility] Comment on above: Performed By: #### L MIHAELA SO, CMP #### [facility] [address] [place] [address] Dr. Chris Real Globulin (S) [Mass/Vol] 4.4 g/dL Normal T [facility] Comment on above: Performed By: #### L MIHAELA SO, CMP #### [facility] [address] [place] [address] Dr. Chris Real Glucose [Mass/Vol] 106 mg/dL Normal 74-106 [facility] Comment on above: Performed By: #### L MIHAELA SO, CMP #### [facility] [address] [place] [address] Dr. Chris Real Potassium [Moles/Vol] 2.9 mmol/L Critically low 3.4-5.0 [facility] Comment on above: Result Comment: TEST REPEATED; CRITICAL VALUE VERIFIED Performed By: #### L MIHAELA SO, CMP #### [facility] [address] [place] [address] Dr. Chris Real Protein [Mass/Vol] 7.1 g/dL Normal 6.1-8.2 [facility] Comment on above: Performed By: #### L MIHAELA SO, CMP #### [facility] [address] [place] [address] Dr. Chris Real Sodium [Moles/Vol] 137 mmol/L Normal 137-145 [facility] Comment on above: Performed By: #### L MIHAELA SO, CMP #### [facility] [address] [address] [address] Chris Real Urea nitrogen [Mass/Vol] 12.0 mg/dL Normal 9.0-20.0 [facility] Comment on above: Performed By: #### L MIHAELA SO, CMP #### [facility] [address] [place], [place] [address] Dr. Chris Real Urea nitrogen/Creatinine [Mass ratio] 10.3 mg/mg Normal [facility] Comment on above: Performed By: #### L MIHAELA SO, CMP #### [facility] [address] [place], [place] [address] Dr. Chris Real US RUSSEL DOP LEG [...] by: KOFFI DAO Date: 2021-08-31 21:29 Normal [facility] XR CHEST 1 Von 08-31-2021 XR CHEST 1 V EXAM: XR CHEST 1 V HISTORY: SHORTNESS OF BREATH COMPARISON: Chest x-ray dated 03/22/2015. FINDINGS: Bilateral interstitial marking prominence. Cardiomegaly. No definite pneumothorax. IMPRESSION: Bilateral interstitial marking prominence and cardiomegaly concerning for pulmonary edema. Electronically authenticated by: LALO HICKMAN Date: 2021-08-31 21:52 Normal [facility] Ambulatory Clinical Summaryo n 02-24-2021 Ambulatory Clinical Summary {[id number] Normal [facility] Patient Educationon 02-25-20 21 Patient Education Benign [...] Document Reviewed: 06/14/2008 ExitCare? 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 [facility] Urology Office/Clinic Noteon 02-24-2021 Urology Office/Clinic Note [...] Urnls Dip Stick Auto w/o Microscopy POC 01505 I have reviewed the previous health record information and history for this pt. from Dr. Caballero. Follow-up With When Contact Information Stuart Tavarez MD, Reen Wallace, URO [address] [place] [id number]- Additional Instructions: prn Patient Education Benign Prostatic [...] replacement, [place] (more content not included)... Normal [facility] Comment on above: Result Comment: Elec tronically Signed By: Stuart Tavarez MD, Rene Wallace\.br\Date and Time Signed: 02/24/21 13:11 EDT\.br\Electronically Co-Signed By: Radha Lan MA\.br\Date and Time Co-Signed: 02/24/21 11:29 EDT Provider Letteron 02-03-2021 Provider Letter (Inserted Image. Aleshia ble to display) February 03, 2021 INDIO COLLADO [address] [place] [id number] INDIO COLLADO 1955 Dear Indio , You [...] [facility] [address], [place] [address] [facility] Physician Referralon 021 Physician Referral [id number]:127 Normal [facility] ECG 12-Leadon 12-02-2020 ECG 12-Lead [id number]#1.00CD:12 7 [facility] Lab Reportson 12-02-2020 Lab Reports [id number]#1.00CD:12 7 [facility] Lab Reports [id number]#1.00CD:12 7 [facility] Lab Reports [id number]#1.00CD:12 7 [facility] Lab Reports [id number]#1.00CD:12 7 [facility] RAD - MISCon 12-02-2020 RAD - MISC [id number]#1.00CD:12 7 [facility] Operative Reporton Operative Report [id number]#1.00CD:12 7 [facility] Ambulatory Clinical Summaryo n 11-13-2020 Ambulatory Clinical Summary {[id number] [facility] Patient Educationon 11-13-19 Patient Education Family Medicine [...] Document Reviewed: 08/07/2010 ExitCare? 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 [facility] Physician Orderon 11-13-2020 Physician Order [id number]:12 7 [facility] Pre-Authorization for Medica l Treatmenton 11-13-2020 Pre-Authorization for Medical Treatment [id number]#1.00CD:1 27 [facility] Urology Office/Clinic Noteon 11-13-2020 Urology Office/Clinic [...] here today for urologic evaluation and management. [facility] Staff Patient 11 month fu w/ CT. CT done at [facility] on 10/17/2020 Pt states that he [...] Present Illness Reviewed urine and CT from [facility]. There have been no associated fever, [...] Urnls Dip Stick Auto w/o Microscopy POC 15157 Urology Procedure Order 3. Nocturia (R35.1: Nocturia) 2x/night. Ordered: Urology Procedure Order 4. Urge incontinence (N39.41: Urge incontinence) Moderate - severe. Ordered: Urology Procedure Order 5. Abdominal pain (R10.9: Unspecified abdominal pain) LLQ. Ordered: Urology Procedure Order I have reviewed the previous health record information and history for this pt. from Dr. Caballero. Follow-up With When Contact Information Stuart Tavarez MD, Rene Wallace [address] [place], [place] [id number] Additional Instructions: Patient Education Kidney Stones, [id number]-[id number] IRadha , personally scribed for Dr. Caballero on 11/13/2020 09:19:01. . Documentation recorded by the scribeRadha, accurately reflects the services(s) I performed and decisions m (more content not included)... Normal [facility] Comment on above: Result Comment: Elec tronically Signed By: Rene Caballero Jr., MD\.migdalia\Date and Time Signed: 11/13/20 09:42 EST\.br\Electronically Co-Signed By: Radha Lan MA\.br\Date and Time Co-Signed: 01/21/21 09:19 EST RAD - CT Reporton 10-31-2020 RAD - CT Report [id number]:12 7 [facility] Vital Signs Date Time Vital Sign Value Performing Clinician Facility 11-15-2024 08:46-0500 Body height 175.3 cm Luis Velazquez MD Work Phone: [facility] 11-15-2024 08:46-0500 Body mass index (BMI) [Ratio] 27.91 kg/m2 Luis Velazquez MD Work Phone: [facility] 11-15-2024 08:46-0500 Body weight 85.73 kg Luis Velazquez MD Work Phone: [facility] 11-15-2024 08:46-0500 Diastolic blood pressure 80 mm[Hg] Luis Velazquez MD Work Phone: [facility] 11-15-2024 08:46-0500 Heart rate 59 /min Luis Velazquez MD Work Phone: [facility] 11-15-2024 08:46-0500 SaO2% (BldA) [Mass fraction] 98 % Luis Velazquez MD Work Phone: [facility] 11-15-2024 08:46-0500 Systolic blood pressure 132 mm[Hg] Luis Velazquez MD Work Phone: [facility] 09-27-2024 13:05-0500 Diastolic blood pressure 82 mm[Hg] Norma Hurd MD Work Phone: [facility] 09-27-2024 13:05-0500 Systolic blood pressure 147 mm[Hg] Norma Hurd MD Work Phone: [facility] 09-27-2024 13:03-0500 Body height 175.3 cm Norma Hurd MD Work Phone: [facility] 09-27-2024 13:03-0500 Body mass index (BMI) [Ratio] 26.88 kg/m2 Norma Hurd MD Work Phone: [facility] 09-27-2024 13:03-0500 Body weight 82.56 kg Norma Hurd MD Work Phone: [facility] 09-27-2024 13:03-0500 Heart rate 50 /min Norma Hurd MD Work Phone: [facility] 09-03-2024 09:46-0500 Body height 175.3 cm Moreno Alatorreher DPM Work Phone: [facility] 09-03-2024 09:46-0500 Body mass index (BMI) [Ratio] 25.84 kg/m2 Moreno Cardenas DPM Work Phone: [facility] 09-03-2024 09:46-0500 Body weight 79.38 kg Moreno Rus DPM Work Phone: [facility] 07-30-2024 15:53-0400 Body height 175.3 cm Juhi Hemmer PA Work Phone: [facility] 07-30-2024 15:53-0400 Body mass index (BMI) [Ratio] 25.87 kg/m2 Juhi Hemmer PA Work Phone: [facility] 07-30-2024 15:53-0400 Body weight 79.47 kg Juhi Hemmer PA Work Phone: [facility] 07-30-2024 15:53-0400 Diastolic blood pressure 82 mm[Hg] Juhi Hemmer PA Work Phone: [facility] 07-30-2024 15:53-0400 Heart rate 66 /min Juhi Hemmer PA Work Phone: [facility] 07-30-2024 15:53-0400 Respiratory rate 16 /min Juhi Hemmer PA Work Phone: [facility] 07-30-2024 15:53-0400 SaO2% (BldA) [Mass fraction] 97 % Juhi Hemmer PA Work Phone: [facility] 07-30-2024 15:53-0400 Systolic blood pressure 120 mm[Hg] Juhi Hemmer PA Work Phone: [facility] 07-12-2024 15:11-0400 Body height 175.3 cm Alexandre Reinoso TECHNICAL PROJECT MANAGER Work Phone: [facility] 07-12-2024 15:11-0400 Body mass index (BMI) [Ratio] 25.7 kg/m2 Alexandre Reinoso TECHNICAL PROJECT MANAGER Work Phone: [facility] 07-12-2024 15:11-0400 Body weight 78.93 kg Alexandre Reinoso TECHNICAL PROJECT MANAGER Work Phone: [facility] 07-12-2024 15:11-0400 Diastolic blood pressure 66 mm[Hg] Alexandre Reinoso TECHNICAL PROJECT MANAGER Work Phone: [facility] 07-12-2024 15:11-0400 Heart rate 59 /min Alexandre Reinoso TECHNICAL PROJECT MANAGER Work Phone: [facility] 07-12-2024 15:11-0400 SaO2% (BldA) [Mass fraction] 97 % Alexandre Reinoso TECHNICAL PROJECT MANAGER Work Phone: [facility] 07-12-2024 15:11-0400 Systolic blood pressure 128 mm[Hg] Alexandre Reinoso TECHNICAL PROJECT MANAGER Work Phone: [facility] 12-05-2023 09:55-0500 Body mass index (BMI) [Ratio] 29.51 kg/m2 Juhi Hemmer PA Work Phone: [facility] 12-05-2023 09:55-0500 Body temperature 99 [degF] Juhi Hemmer PA Work Phone: [facility] 12-05-2023 09:55-0500 Body weight 90.63 kg Juhi Hemmer PA Work Phone: [facility] 12-05-2023 09:55-0500 Diastolic blood pressure 100 mm[Hg] Juhi Hemmer PA Work Phone: [facility] 12-05-2023 09:55-0500 Heart rate 102 /min Juhi Hemmer PA Work Phone: [facility] 12-05-2023 09:55-0500 Respiratory rate 16 /min Juhi Hemmer PA Work Phone: [facility] 12-05-2023 09:55-0500 SaO2% (BldA) [Mass fraction] 98 % Juhi HANSEN Work Phone: [facility] 12-05-2023 09:55-0500 Systolic blood pressure 162 mm[Hg] Juhi HANSEN Work Phone: [facility] 11-08-2023 09:49-0500 Body height 175.3 cm Helen Zepeda MD Work Phone: [facility] 11-08-2023 09:49-0500 Body mass index (BMI) [Ratio] 29.09 kg/m2 Helen Zepeda MD Work Phone: [facility] 11-08-2023 09:49-0500 Body weight 89.36 kg Helen Zepeda MD Work Phone: [facility] 11-08-2023 09:49-0500 Diastolic blood pressure 86 mm[Hg] Helen Zepeda MD Work Phone: [facility] 11-08-2023 09:49-0500 Heart rate 48 /min Helen Zepeda MD Work Phone: [facility] 11-08-2023 09:49-0500 SaO2% (BldA) [Mass fraction] 99 % Helen Zepeda MD Work Phone: [facility] 11-08-2023 09:49-0500 Systolic blood pressure 160 mm[Hg] Helen Zepeda MD Work Phone: [facility] 11-09-2022 12:47-0500 Diastolic blood pressure 88 mm[Hg] Abelardo Boothby DO Work Phone: [facility] [employer] 11-09-2022 12:47-0500 Heart rate 76 /min Abelardo Boothby DO Work Phone: [facility] [employer] 11-09-2022 12:47-0500 Respiratory rate 10 /min Abelardo Boothby DO Work Phone: [employer] 11-09-2022 12:47-0500 SaO2% (BldA) [Mass fraction] 100 % Abelardo [employer] Work Phone: [employer] 11-09-2022 12:47-0500 Systolic blood pressure 162 mm[Hg] Abelardo [employer] Work Phone: [employer] 11-09-2022 12:17-0500 Body temperature 97 [degF] Abelardo [employer] Work Phone: [employer] 11-09-2022 11:14-0500 Body height 175.3 cm Abelardo [employer] Work Phone: [employer] 11-09-2022 11:14-0500 Body mass index (BMI) [Ratio] 29.98 kg/m2 Abelardo [employer] Work Phone: [employer] 11-09-2022 11:14-0500 Body weight 92.08 kg Abelardo [employer] Work Phone: [employer] 10-05-2022 10:14-0500 Body height 175.26 cm II Luis Velazquez Work Phone: [facility] 10-05-2022 10:14-0500 Body mass index (BMI) [Ratio] 31.4 kg/m2 II Luis Velazquez Work Phone: [facility] 10-05-2022 10:14-0500 Body weight 96.61 kg II Luis Velazquez Work Phone: [facility] 10-05-2022 09:45-0500 Body temperature 97.5 [degF] II Luis Velazquez Work Phone: [facility] 10-05-2022 09:45-0500 Diastolic blood pressure 84 mm[Hg] II Luis Velazquez Work Phone: [facility] 10-05-2022 09:45-0500 Heart rate 68 /min II Luissimon Velazquez Work Phone: [facility] 10-05-2022 09:45-0500 Respiratory rate 18 /min II Luis Velazquez Work Phone: [facility] 10-05-2022 09:45-0500 Systolic blood pressure 160 mm[Hg] II Luis Velazquez Work Phone: [facility] 09-30-2022 13:59-0500 Body temperature 97.9 [degF] II Luis Velazquez Work Phone: [facility] 09-30-2022 13:59-0500 Diastolic blood pressure 83 mm[Hg] II Luis Velazquez Work Phone: [facility] 09-30-2022 13:59-0500 Heart rate 56 /min II Luis Velazquez Work Phone: [facility] 09-30-2022 13:59-0500 SaO2% (BldA) [Mass fraction] 95 % II Luis Velazquez Work Phone: [facility] 09-30-2022 13:59-0500 Systolic blood pressure 135 mm[Hg] II Luis Velazquez Work Phone: [facility] 09-30-2022 07:45-0500 Respiratory rate 18 /min II Luis Velazquez Work Phone: [facility] 09-29-2022 07:28-0500 Body height 175.26 cm II Luis Velazquez Work Phone: [facility] 09-26-2022 05:50-0500 Body weight 105 kg II Luis Velazquez Work Phone: [facility] Encounters Encounter Date Encounter Type Care Provider Facility Start: 11-29-2024 End: 11-29-2024 [facility] Start: 11-15-2024 End: 11-15-2024 Bamboo flowsheet Luis Velazquez MD Work Phone: [facility] Start: 11-15-2024 End: 11-15-2024 Bamboo flowsheet Luis Velazquez MD Work Phone: [facility] Start: 11-15-2024 End: 11-15-2024 Office outpatient visit 25 minutes Luis Velazquez MD Work Phone: [facility] Comment on above: Prostate cancer scre ening (Primary Dx); Mixed hyperlipidemia (CMS/HCC); Atherosclerosis of [place] coronary artery of [place] heart without angina pectoris (CMS/HCC); Chronic combined systolic and diastolic CHF, NYHA class 1 (CMS/HCC); Chronic obstructive pulmonary disease, unspecified (CMS/HCC); Paroxysmal atrial fibrillation (CMS/HCC); Chronic venous hypertension (idiopathic) with ulcer and inflammation of right lower extremity (CMS/HCC); Lymphedema Start: 11-15-2024 End: 11-15-2024 ambulatory LUIS VELAZQUEZ Not Available Start: 10-25-2024 ambulatory [facility] Start: 10-25-2024 End: 10-25-2024 ambulatory [facility] Start: 10-18-2024 End: 10-18-2024 Clinisync Result Encounter Generic External Data Provider [facility] Unsolicited Start: 10-18-2024 End: 10-18-2024 Clinisync Result Encounter Generic External Data Provider [facility] External Department Unsolicited Start: 09-27-2024 End: 09-27-2024 Office outpatient new 30 minutes Norma Hurd MD [facility] [place] Comment on above: Venous insufficiency of both lower extremities (Primary Dx); Varicose veins of leg with pain, bilateral; Phlebitis and thrombophlebitis Start: 09-18-2024 End: 09-18-2024 ambulatory [facility] Start: 09-12-2024 End: 09-12-2024 Refill Moreno Cardenas DPM Work Phone: [facility] Comment on above: Metatarsalgia of bot h feet Start: 09-10-2024 End: 09-10-2024 Refill Zandra Gil BATTERY STARTER Work Phone: [facility] Comment on above: Primary insomnia Start: 09-04-2024 End: 09-04-2024 Refill Emmie Stock LPN [facility] Comment on above: Lumbar spondylosis Start: 09-03-2024 End: 09-03-2024 Bamboo flowsheet Moreno Cardenas DPM Work Phone: [facility] Start: 09-03-2024 End: 09-03-2024 Bamboo flowsheet Moreno Cardenas DPM Work Phone: [facility] Start: 09-03-2024 End: 09-03-2024 Office outpatient visit 25 minutes Moreno Cardenas DPM Work Phone: [facility] Comment on above: Left foot pain (Prim rommel Dx); Right foot pain; Metatarsalgia of both feet; Equinus contracture of right ankle; Equinus contracture of left ankle Start: 09-03-2024 End: 09-03-2024 ambulatory MORENO CARDENAS Not Available Start: 08-22-2024 End: 08-22-2024 Refill Hallie Reaves MA [facility] Comment on above: Lumbar spondylosis Start: 07-30-2024 End: 07-30-2024 Office outpatient visit 25 minutes Juhi Beckford PA Work Phone: [facility] Comment on above: Lumbar spondylosis ( Primary Dx); Closed compression fracture of body of L1 vertebra (HCC) (CMS/HCC); Need for vaccination; Retrolisthesis of vertebrae Start: 07-30-2024 End: 07-30-2024 ambulatory JUHI BECKFORD Not Available Start: 07-30-2024 End: 07-30-2024 Bamboo flowsheet Juhi Beckford PA Work Phone: [facility] Start: 07-30-2024 End: 07-30-2024 Bamboo flowsheet Juhi Beckford PA Work Phone: [facility] Start: 07-12-2024 End: 07-12-2024 Office outpatient visit 25 minutes Alexandre Reinoso NP Work Phone: [facility] Comment on above: Lumbar paraspinal mu scle spasm (Primary Dx); Acute myofascial strain of lumbar region, subsequent encounter; Back muscle spasm Start: 07-12-2024 End: 07-12-2024 ambulatory ALEXANDRE REINOSO Not Available Start: 07-12-2024 End: 07-12-2024 Bamboo flowsheet Alexandre Reinoso TECHNICAL PROJECT MANAGER Work Phone: [facility] Start: 07-12-2024 End: 07-12-2024 Bamboo flowsheet Alexandre Reinoso TECHNICAL PROJECT MANAGER Work Phone: [facility] Start: 07-10-2024 ambulatory LUIS VELAZQUEZ [facility] Start: 07-09-2024 End: 07-31-2024 Telephone encounter Eva Villanueva DO Work Phone: [facility] Comment on above: surgery Start: 06-28-2024 End: 06-28-2024 Telephone encounter Gerardo Pierre PT Work Phone: [facility] Comment on above: PT check (Contacted re: cx of PT yesterday w/ an appt getachew Villanueva today. I noted to him he had no more PT set and he said he has felt no benefit from the PT so far. He has a fu w/ [place] in Aug and noted he will cont w/ HEP provided and will contact if pain persists.) Start: 06-28-2024 End: 06-28-2024 Office outpatient visit 25 minutes Eva Villanueva DO Work Phone: [facility] Comment on above: Rotator cuff tear ar thropathy of left shoulder (Primary Dx); Primary osteoarthritis of left shoulder Start: 06-28-2024 End: 06-28-2024 ambulatory EVA VILLANUEVA Not Available Start: 06-21-2024 End: 06-21-2024 ambulatory Margo Bellblossom [employer] [facility] Comment on above: Right-sided low back pain without sciatica, unspecified chronicity (Primary Dx); Acute myofascial strain of lumbar region, subsequent encounter; DISH (diffuse idiopathic skeletal hyperostosis); Baastrup's syndrome Start: 06-21-2024 End: 06-21-2024 Bamboo flowsheet Margo Villa [employer] [facility] Start: 06-21-2024 End: 06-21-2024 Bamboo flowsheet Margo Villa [employer] [facility] Start: 06-14-2024 End: 06-14-2024 ambulatory Gerardo Pierre PT Work Phone: [facility] Comment on above: Right-sided low back pain without sciatica, unspecified chronicity (Primary Dx); Acute myofascial strain of lumbar region, subsequent encounter; DISH (diffuse idiopathic skeletal hyperostosis); Baastrup's syndrome Primary insomnia; Neuropathy due to type 2 diabetes mellitus ([facility]) Start: 06-13-2024 End: 06-13-2024 ambulatory EVA VILLANUEVA Not Available Start: 06-12-2024 End: 06-12-2024 ambulatory Margo Villa [employer]SEM[employer] [facility] Comment on above: Right-sided low back pain without sciatica, unspecified chronicity (Primary Dx); Acute myofascial strain of lumbar region, subsequent encounter; DISH (diffuse idiopathic skeletal hyperostosis); Baastrup's syndrome Start: 06-07-2024 End: 06-07-2024 ambulatory EVA VILLANUEVA Not Available Start: 06-06-2024 End: 06-06-2024 ambulatory GERARDO PIERRE Not Available Start: 06-06-2024 End: 06-06-2024 ambulatory [facility] Start: 06-01-2024 End: 06-14-2024 Telephone encounter Gerardo Pierre PT Work Phone: [facility] Comment on above: PT Initial Eval (Tri ed to contact to set-up PT Eval for Acute myofascial strain of lumbar region, DISH, Baastrup's syndrome but had to lm requesting a call back.) Start: 05-31-2024 End: 05-31-2024 ambulatory LUIS VELAZQUEZ Not Available Start: 05-18-2024 End: 05-18-2024 ambulatory LUIS VELAZQUEZ Not Available Start: 05-16-2024 End: 05-16-2024 ambulatory LUIS VELAZQUEZ Not Available Start: 05-09-2024 End: 05-09-2024 ambulatory [facility] Start: 04-30-2024 ambulatory [facility] Start: 04-30-2024 End: 04-30-2024 ambulatory [facility] Start: 04-24-2024 End: 04-24-2024 ambulatory MORENO S LAINEY Not Available Start: 04-17-2024 End: 04-17-2024 ambulatory MORENO S LAINEY Not Available Start: 04-10-2024 End: 04-10-2024 ambulatory [facility] Start: 04-05-2024 End: 04-05-2024 ambulatory EVA VILLANUEVA Not Available Start: 03-29-2024 End: 03-29-2024 ambulatory [facility] Start: 03-09-2024 End: 03-09-2024 ambulatory JUHI BECKFORD Not Available Start: 03-08-2024 End: 03-08-2024 ambulatory [facility] Start: 03-02-2024 ambulatory LUIS VELAZQUEZ [facility] Start: 03-02-2024 ambulatory LUIS VELAZQUEZ [facility] Start: 02-29-2024 ambulatory [facility] Start: 02-29-2024 End: 02-29-2024 ambulatory [facility] Start: 02-14-2024 End: 02-14-2024 ambulatory [facility] Start: 01-28-2024 End: 01-29-2024 Emergency department patient visit LAUREN MARTIN [facility] Start: 01-17-2024 End: 01-17-2024 ambulatory MORENO CARDENAS Not Available Start: 01-09-2024 End: 01-09-2024 ambulatory LUIS VELAZQUEZ Not Available Start: 12-06-2023 End: 12-06-2023 Office outpatient visit 25 minutes Eva Villanueva DO Work Phone: [facility] Comment on above: Left shoulder pain, unspecified chronicity (Primary Dx); Rotator cuff tear arthropathy of left shoulder; Primary osteoarthritis of left shoulder Start: 12-06-2023 End: 12-06-2023 ambulatory EVA VILLANUEVA Not Available Start: 12-05-2023 Bamboo flowsheet Juih Peterson Hemme r PA Work Phone: [facility] Start: 12-05-2023 Bamboo flowsheet Juhi Peterson Hemme r PA Work Phone: [facility] Start: 12-05-2023 End: 12-05-2023 Office outpatient visit 15 minutes Juhi Beckford PA Work Phone: [facility] Comment on above: Chronic obstructive pulmonary disease with acute exacerbation (CMS/HCC) (Primary Dx) Start: 12-05-2023 End: 12-05-2023 ambulatory JUHI BECKFORD Not Available Start: 11-08-2023 End: 11-08-2023 ambulatory [facility] Start: 11-08-2023 End: 11-08-2023 Office outpatient visit 10 minutes Helen Zepeda MD Work Phone: [facility] Comment on above: Venous insufficiency of both lower extremities (Primary Dx); Lymphedema of both lower extremities Start: 11-03-2023 End: 11-04-2023 ambulatory [facility] Start: 10-26-2023 Telephone encounter Helen Zepeda MD Work Phone: [facility] Start: 10-11-2023 End: 10-11-2023 ambulatory [facility] Start: 01-10-2023 End: 01-10-2023 ambulatory LUIS VELAZQUEZ [facility] Start: 11-09-2022 End: 11-09-2022 ambulatory ABELARDO BABIN [facility] Start: 11-09-2022 End: 11-09-2022 Subsequent hospital visit by physician Abelardo Babin DO Work Phone: [facility] Comment on above: Surgical site infect ion (Primary Dx); Post-op pain Start: 11-08-2022 End: 11-08-2022 ambulatory LUIS VELAZQUEZ [facility] Start: 10-19-2022 End: 10-27-2022 Evaluation and management of inpatient ABELARDO BABIN [facility] Start: 10-14-2022 End: 10-14-2022 ambulatory LUIS VELAZQUEZ [facility] Start: 10-05-2022 ambulatory Luis Velazquez Facility:[facility] Start: 10-05-2022 End: 10-05-2022 ambulatory II Luis Velazquez Work Phone: [facility] Work Phone: Start: 10-05-2022 End: 10-05-2022 Discharged Recurring II Luis Velazquez Work Phone: [facility] [place] Work Phone: Start: 09-11-2022 End: 09-30-2022 Evaluation and management of inpatient Gordon Smith Facility:[facility] Start: 09-11-2022 End: 09-30-2022 Evaluation and management of inpatient II Luis Velazquez Work Phone: [facility] Work Phone: Start: 09-06-2022 ambulatory Marina Cheng Facility:[facility] Start: 09-05-2022 End: 09-11-2022 Evaluation and management of inpatient MICHAEL REINOSO [facility] Start: 09-05-2022 Emergency department patient visit LUIS VELAZQUEZ [facility] Start: 09-03-2022 End: 09-04-2022 ambulatory Marina Cheng Facility:[facility] Start: 08-20-2022 End: 08-21-2022 ambulatory Marina Cheng Facility:[facility] Start: 08-13-2022 End: 08-14-2022 ambulatory Marina Cheng Facility:[facility] Start: 08-06-2022 End: 08-07-2022 ambulatory MD Henok Laws Facility:[facility] Start: 07-29-2022 End: 07-30-[address] LUIS VELAZQUEZ Facility:[facility] Start: 07-14-2022 End: 07-15-[address] JUHI BECKFORD Facility:[facility] Start: 02-15-2022 End: 02-16-2022 Evaluation and management of inpatient LUIS YANG Facility:[facility] Start: 10-22-2021 End: 10-22-[address] LUIS VELAZQUEZ Facility:[facility] Start: 08-31-2021 End: 09-01-[address] LUIS VELAZQUEZ Facility:[facility] Procedures Date Procedure Procedure Detail Performing Clinician Start: 10-18-2024 ALL CBC WITH AUTO DIFF Generic External Data Provider Start: 12-06-2023 Arthrocentesis aspir &/inj major jt/bursa w/o Eva Villanueva DO Work Phone: Start: 11-08-2023 Follow-up visit Follow-up FREDA DE ORIOWO Start: 11-09-2022 CREATININE W/GFR POI NT OF CARE Abelardo Babin DO Work Phone: Start: 11-09-2022 Gluc bld gluc mntr d ev cleared fda spec home use Abelardo Babin DO Work Phone: Start: 09-27-2022 Aerobic microbial culture II Luis Velazquez Work Phone: Start: 09-27-2022 Anaerobic microbial culture II Luis Velazquez Work Phone: Start: 09-27-2022 Investigation of transfusion reaction II Luis Velazquez Work Phone: Start: 09-27-2022 Duplex scan of lower limb veins II Luis Velazquez Work Phone: Start: 09-20-2022 Screening for occult blood in feces II Luis Velazquez Work Phone: Start: 09-19-2022 Computed tomography of abdomen and pelvis with contrast II Luis Dalton Work Phone: Start: 09-19-2022 Duplex scan of lower limb veins II Luis Velazquez Work Phone: Start: 09-27-2019 Colonoscopy Abelardo booker DO Work Phone: Plan of Treatment Date Care Activity Detail Author Start: 09-05-2032 DTaP,Tdap and Td Vaccines (3 - Td or Tdap) DTaP,Tdap and Td Vaccines (3 - Td or Tdap) [facility] Start: 09-05-2032 DTaP/Tdap/Td vaccine (3 - Td or Tdap) DTaP/Tdap/Td vaccine (3 - Td or Tdap) [facility] Start: 09-27-2029 Screening for malign ant neoplasm of colon [facility] Start: 05-15-2025 End: 05-15-2025 Patient encounter procedure 05/15/2025 9:30 AM EDT Office Visit [facility] [address] [facility] [address] [place] [phone] Luis Velazquez MD [address] [facility] [address] [place] [address] [facility] Start: 01-27-2025 Adult BMI Screening Adult BMI Screen ing [facility] Start: 11-15-2024 End: 11-15-2025 Lipid 1996 panel - Serum or Plasma Lipid panel Lab Routine Mixed hyperlipidemia (CMS/HCC) Expected: 11/15/2024 (Approximate), Expires: 11/15/2025 [facility] Work Phone: Comment on above: Expected: 11/15/2024 (Approximate), Expires: 11/15/2025 Start: 11-15-2024 End: 11-15-2024 Patient encounter procedure [facility] Comment on above: Arrived Start: 11-08-2024 Adult BMI Screening Adult BMI Screen ing [facility] Start: 11-08-2024 Tobacco Screening Tobacco Screening [facility] Start: 10-15-2024 End: 10-15-2024 Patient encounter procedure 10/15/2024 1:15 PM EST Office Visit [facility] [address] [place] [address] Moreno Cardenas, DPM [address] [place], [place] [id number] [facility] Start: 10-13-2024 Tobacco Screening Tobacco Screening [facility] Start: 10-11-2024 Adult BMI Screening Adult BMI Screen ing [facility] Start: 10-09-2024 End: 10-09-2024 Patient encounter procedure 10/09/2024 1:00 PM EST Office Visit [facility] [address] [facility] [place] [phone] Mac Willis MD [address] [place] [phone] [facility] Start: 08-18-2024 Urine screening for protein Diabetes: Urine Protein Screening [facility] Start: 08-15-2024 End: 08-15-2024 Patient encounter procedure 08/15/2024 3:00 PM EDT Office Visit [facility] [address] [place] [address] [place] [address] Alexandre Reinoso NP [address] [place] [address] [place] [address] [facility] Start: 08-01-2024 End: 08-01-2024 Patient encounter procedure 08/01/2024 3:30 PM EDT Office Visit [facility] [address] [place] [address] [place] [address] Luis Velazquez MD [address] [place] [address] [place] [address] [facility] Start: 08-01-2024 End: 08-01-2024 Patient encounter procedure 08/01/2024 11:15 AM EDT Office Visit [facility] [address] [place] [address] [place] [address] Luis Velazquez MD [address] [place] [place] [address] [facility] Start: 07-30-2024 End: 07-30-2024 Patient encounter procedure 07/30/2024 4:00 PM EDT Office Visit [facility] [address] [place] [place] [phone] Juhi Beckford, PA [address] [place] [address] Arrived [facility] Comment on above: Arrived Start: 07-30-2024 End: 07-30-2025 MR Lumbar spine WO contrast MR lumbar spine wo contrast Imaging Routine Lumbar spondylosis Closed compression fracture of body of L1 vertebra (HCC) (CMS/HCC) Retrolisthesis of vertebrae Expected: 07/30/2024, Expires: 07/30/2025 [facility] Work Phone: Comment on above: Expected: 07/30/2024 , Expires: 07/30/2025 Start: 07-12-2024 End: 07-12-2024 Patient encounter procedure 07/12/2024 3:30 PM EDT Office Visit [facility] [address] [place] [place] [phone] Alexandre Reinoso, TECHNICAL PROJECT MANAGER [address] [place] [address] Arrived [facility] Comment on above: Arrived Start: 06-28-2024 End: 06-28-2024 Patient encounter procedure 06/28/2024 1:00 PM EDT Office Visit [facility] [address] [place] [phone] Eva Villanueva DO [address] [place] [address] [facility] Start: 06-27-2024 End: 06-27-2024 ambulatory 06/27/2024 3:00 PM EDT Treatment [facility] [address] [place] [address] Margo Villa [employer] [facility] Start: 06-24-2024 COVID-19 Vaccine ( season) COVID-19 Vaccine ( season) [facility] Start: 06-24-2024 Influenza vaccination Influenza Vacc ine (#1) [facility] Start: 06-21-2024 End: 06-21-2024 ambulatory [facility] Comment on above: Right-sided low back pain without sciatica, unspecified chronicity (Primary Dx); Acute myofascial strain of lumbar region, subsequent encounter; DISH (diffuse idiopathic skeletal hyperostosis); Baastrup's syndrome Start: 06-19-2024 End: 06-19-2024 ambulatory 06/19/2024 3:00 PM EDT Treatment [facility] [address] [facility] [address] [place] [address] Margo Villa PTA [facility] Start: 06-14-2024 End: 06-14-2024 ambulatory 06/14/2024 3:00 PM EDT Treatment [facility] [address] [facility] [address] [place] [address] Jonah Renyolds PTA [facility] Start: 06-13-2024 End: 06-13-2024 Professional / ancillary services management 06/13/2024 9:30 AM EDT Ancillary Procedure [facility] [address] [place] [place] [phone] [facility] Start: 06-09-2024 Hemoglobin A1c measurement Diabetes: Hemoglobin A1C [facility] Start: 02-07-2024 End: 02-07-2024 Patient encounter procedure 02/07/2024 1:00 PM EDT [facility] Visit [facility] [place] [address] Helen Zepeda MD [address] [place] [address] [facility] Start: 01-31-2024 End: 01-31-2024 Patient encounter procedure 01/31/2024 1:15 PM EDT Office Visit [facility] [address] [place] [address] Eva Villanueva, [address] [place] [address] [facility] Start: 01-13-2024 Medicare Annual Well ness (AWV) Medicare Annual Wellness (AWV) [facility] Start: 12-19-2023 End: 12-19-2023 Patient encounter procedure 12/19/2023 2:30 PM EST Office Visit [facility] [address] [place] [address] Luis Velazquez MD [address] [place] [address] [facility] Start: 12-05-2023 End: 12-05-2023 Patient encounter procedure 12/05/2023 10:00 AM EST Office Visit [facility] [address] [place] [place] [address] Juhi Beckford PA [address] [place] [address] Arrived [facility] Comment on above: Arrived Start: 11-08-2023 End: 11-08-2023 Patient encounter procedure 11/08/2023 10:10 AM EST Office Visit [facility] [address] [place] [address] Helen Zepeda MD [address], [address] [place] [address] [facility] Start: 11-03-2023 End: 11-03-2023 Patient encounter procedure 11/03/2023 2:30 PM EST Appointment [facility] [address] [place] [phone] Heeln Zepeda MD [address] [place] [address] [facility] Start: 10-28-2023 Hemoglobin A1c measurement Diabetes: Hemoglobin A1C [facility] Start: 06-24-2023 COVID-19 Vaccine ( season) COVID-19 Vaccine () [facility] Start: 11-22-2022 End: 11-22-2022 Patient encounter procedure 11/22/2022 Office Visit Orthopedic Surgery Abelardo Babin, DO [address] [facility] [address] [place] [address] [facility] Start: 11-15-2022 End: 11-15-2022 Patient encounter procedure 11/15/2022 Office Visit Orthopedic Surgery Abelardo Babin, DO [address] [facility] [address] [place] [address] [facility] Start: 11-09-2022 End: 11-09-2022 ANKLE OPEN REDUCTION INTERNAL FIXATION ANKLE OPEN REDUCTION INTERNAL FIXATION Open wound of left ankle, initial encounter 11/09/2022 11:14 AM EST [facility] Start: 11-08-2022 Annual Wellness Visi t (AWV) Annual Wellness Visit (AWV) [facility] Start: 09-30-2022 [facility] Start: 09-19-2022 Referral to vascular surgeon [facility] Start: 09-11-2022 Hospital admission [facility] Start: 09-11-2022 Referral to clinical finishing range supervisor [facility] Start: 05-24-2022 Influenza vaccination Flu vaccine (# 1) [facility] Start: 05-15-2022 Administration of varicella zoster vaccine Zoster (Shingles) Vaccine (2 of 2) [facility] Start: 05-15-2022 Shingles vaccine (2 of 2) Shingles vaccine (2 of 2) [facility] Start: 02-27-2022 Lipid panel Lipids [facility] [employer] Start: 12-10-2021 COVID-19 Vaccine (4 - Booster for Pfizer series) COVID-19 Vaccine (4 - Booster for Pfizer series) [facility] [place] [facility] Start: 04-23-2021 Glaucoma screening Diabetes: R etinopathy Screening [facility] Start: 2021 Abdominal aortic aneurysm screening Abdominal Aortic Aneurysm (AAA) Screen [facility] Start: 2021 Fall Risk Screening Fall Risk Screen ing [facility] [employer] [facility] Start: 2001 Screening for malign ant neoplasm of colon [facility] Start: 1974 Adult BMI Follow Up Plan Adult BMI Follow Up Plan [facility] [employer] [facility] Start: 1974 Diabetic foot examination Diabetic Foot Exam [facility] [employer] [facility] Start: 1974 Hepatitis C screening Hepatitis C sc reen [facility] [employer] [facility] [place] [facility] Start: 1968 Depression Screen Depression Screen [facility] Start: 1968 Depression Screening Depression Scre ening [facility] Start: 1956 Glaucoma screening Diabetic Op hthalmology Exam [facility] Start: 1956 Medicare Annual Well ness Visit Medicare Annual Wellness Visit [facility] [employer] [facility] Start: 1956 Screening for malign ant neoplasm of colon [facility] End: 11-09-2022 INITIATE PACU OXYGEN THERAPY PROTOCOL Initiate PACU Oxygen Therapy Protocol Respiratory Care Routine Continuous until discontinued starting 11/09/2022 [facility] Work Phone: Comment on above: Continuous until dis continued starting 11/09/2022 Patient Education Deep Vein Thro mbosis (Blood Clots in the Legs) (DC) Apixaban Going Home on Blood Thinners [facility] Work Phone: Patient referral [facility] Work Phone: End: 11-09-2022 POC CHEM8 INCLUDES CALC. ANION GAP POC CHEM8 INCLUDES CALC. ANION GAP Point of Care Testing STAT One Time for 1 Occurrences starting 11/09/2022 until 11/09/2022 [facility] Work Phone: Comment on above: One Time for 1 Occur rences starting 11/09/2022 until 11/09/2022 Prostate specific Ag [Mass/volume] in Serum or Plasma PSA Lab Routine Prostate cancer screening Ordered: 11/15/2024 [facility] Comment on above: Ordered: 11/15/2024 [facility] Immunizations Immunization Date Immunization Notes Care Provider John freed 07-30-2024 Influenza, High-dose Seasonal, Quadrivalent, Preservative Free Juhi Hemmer PA Work Phone: [facility] 08-18-2023 Influenza, High-dose Seasonal, Quadrivalent, Preservative Free Juhi Hemmer PA Work Phone: [facility] 08-18-2023 influenza virus vacc ine, unspecified formulation Margo Bellblossom [employer]SEM[employer] [facility] 09-05-2022 tetanus toxoid, redu vianey diphtheria toxoid, and acellular pertussis vaccine, adsorbed [facility] Work Phone: [facility] 07-05-2022 tetanus toxoid, redu vianey diphtheria toxoid, and acellular pertussis vaccine, adsorbed Juhi Hemmer PA Work Phone: [facility] 03-20-2022 zoster vaccine recombinant Juhi Hemmer PA Work Phone: [facility] 03-20-2022 zoster vaccine, unspecified formulation Helen Zepeda MD Work Phone: [facility] 03-09-2022 Pneumococcal Conjuga te PCV 20 Juhi Hemmer PA Work Phone: [facility] 02-15-2022 pneumococcal polysaccharide vaccine, 23 valent Juhi Hemkranthi PA Work Phone: [facility] 09-10-2021 influenza, high dose seasonal, preservative-free Juhi Hemmer PA Work Phone: [facility] 09-09-2021 influenza, high dose seasonal, preservative-free Juhi Hemmer PA Work Phone: [facility] 02-23-2021 Pfizer Purple Cap SARS-CoV-2 Vaccination Juhi HANSEN Work Phone: [facility] 02-22-2021 Pfizer Purple Cap SARS-CoV-2 Vaccination Juhi Hemmer PA Work Phone: [facility] 01-26-2021 Pfizer Purple Cap SARS-CoV-2 Vaccination Juhi Hemmer PA Work Phone: [facility] 01-25-2021 Pfizer Purple Cap SARS-CoV-2 Vaccination Juhi Hemmer PA Work Phone: [facility] 08-25-2020 influenza, injectabl e, quadrivalent, preservative free Juhi Hemmer PA Work Phone: [facility] 08-06-2020 influenza, high dose seasonal, preservative-free Juhi Hemmer PA Work Phone: [facility] 08-13-2019 Influenza, injectabl e, [facility] Canine Kidney, quadrivalent with preservative Juhi Hemmer PA Work Phone: [facility] 08-13-2019 influenza, injectabl e, madin brandon canine kidney, preservative free Juhi Hemmer PA Work Phone: [facility] 11-07-2018 influenza, injectabl e, quadrivalent, preservative free II Luis Velazquez Work Phone: [facility] 08-02-2018 seasonal influenza, intradermal, preservative free Juhi Hemmer PA Work Phone: [facility] 08-31-2017 influenza, injectabl e, quadrivalent, preservative free Juhi Hemmer PA Work Phone: [facility] 08-25-2012 pneumococcal polysaccharide vaccine, 23 valent Juhi Hemmer PA Work Phone: [facility] 08-25-2012 seasonal influenza, intradermal, preservative free Juhi Hemmer PA Work Phone: [facility] Payers Date Payer Category Payer Medicare (Managed Care) [facility] [id number] 2022 Medicare [facility] [id number] 2022 Unknown [id number] .[id number] 2022 Medicare [id number] 2022 Self-pay 2022 Unknown [id number] 2022 Unknown 2017 Unknown [id number] 2017 Unknown [id number] 2017 Unknown [id number] 2015 Medicare [id number] 1959 Unknown [id number] 1956 Unknown [id number] 2.16.840.1.352480.3.579.2 .647 1956 Unknown [id number] 2.16.840.1.875527.3.579.2 .593 1956 Unknown [id number] 2.16.840.1.627847.3.579.2 .593 1956 Unknown [id number] 2.16.840.1.772522.3.579.2 .593 1956 Unknown [id number] 2.16.840.1.599627.3.579.2 .593 1956 Unknown [id number] 2.16.840.1.193004.3.579.2 .175 1956 Unknown [id number] 2.16.840.1.653189.3.579.2 .196 1956 Unknown [id number] 2.16.840.1.706904.3.579.2 .196 1956 Unknown [id number] 2.16.840.1.115907.3.579.2 .196 1956 Unknown [id number] 2.16.840.1.507243.3.579.2 .196 1956 Unknown [id number] 2.16.840.1.693414.3.579.2 .196 1956 Unknown [id number] 2.16.840.1.639866.3.579.2 .175 1956 Unknown [id number] 2.16.840.1.398351.3.579.2 .175 1956 Unknown [id number] 2.16.840.1.644471.3.579.2 .175 1956 Unknown [id number] 2.16.840.1.291526.3.579.2 .175 1956 Unknown [id number] 2.16.840.1.948966.3.579.2 .175 1956 Unknown [id number] 2.16.840.1.379889.3.579.2 .1286 1956 Unknown [id number] 2.16.840.1.702327.3.579.2 .1286 1956 Unknown [id number] 2.16.840.1.346592.3.579.2 .1286 1956 Unknown [id number] 2.16.840.1.792899.3.579.2 .1286 1956 Unknown [id number] 2.16.840.1.986305.3.579.2 .128 1956 Unknown [id number] 2.16.840.1.548533.3.579.2 .128 1956 Unknown [id number] 2.16.840.1.291126.3.579.2 .128 1956 Unknown [id number] 2.16.840.1.538282.3.579.2 .128 1956 Unknown [id number] 2.16.840.1.266738.3.579.2 .1258 1956 Unknown [id number] 2.840.1.885488.3.579.2 .1258 1956 Unknown [id number] 2.16.840.1.649569.3.579.2 .1258 1956 Unknown [id number] 2.16.840.1.373320.3.579.2 .1258 1956 Unknown [id number] 2.16.840.1.344317.3.579.2 .1258 1956 Unknown [id number] 2.16840.1.958042.3.579.2 .1258 1956 Unknown [id number] 2.16.840.1.997972.3.579.2 .1258 1956 Unknown [id number] 2.16.840.1.279074.3.579.2 .1258 1956 Unknown [id number] 2.16.840.1.722156.3.579.2 .1258 1956 Unknown [id number] 2.16.840.1.223210.3.579.2 .1258 1956 Unknown [id number] 2.16.840.1.526298.3.579.2 .1258 1956 Unknown [id number] 2.16.840.1.172175.3.579.2 .1258 1956 Unknown [id number] 2.16.840.1.150746.3.579.2 .1258 1956 Unknown [id number] 2.16.840.1.763027.3.579.2 .1258 1956 Unknown [id number] 2.16.840.1.025589.3.579.2 .1258 1956 Unknown [id number] 2.16.840.1.457512.3.579.2 .1258 1956 Unknown [id number] 2.16.840.1.607513.3.579.2 .1258 1956 Unknown [id number] 2.16840.1.623150.3.579.2 .1258 1956 Unknown [id number] 2.16.840.1.807049.3.579.2 .1258 1956 Unknown [id number] 2.16840.1.619310.3.579.2 .1258 1956 Unknown [id number] 2.16.840.1.669544.3.579.2 .1258 1956 Unknown [id number] 2.16840.1.024012.3.579.2 .1258 1956 Unknown [id number] 2.16840.1.469719.3.579.2 .1259 Private Health Insurance [facility] [id number] Unknown [id number] 2.16840.1.863145.3.579.2 .531 Unknown [id number] 2.16840.1.211890.3.579.2 .531 Social History Date Type Detail Facility Start: 09-06-2022 End: 07-25-2023 Tobacco smoking status NHIS Ex-smoker [employer] Start: 10-24-1955 End: 10-24-2005 History of tobacco use Current smoker [employer] Phone: Start: 10-24-1955 End: 10-24-2005 History of tobacco use Cigarette Smoker [employer] Phone: Start: 09-06-2022 End: 07-25-2023 Tobacco use and exposure Smokeless tobacco non-user [employer] Phone: Start: 11-09-2022 End: 11-15-2024 Alcohol intake Ex-drinker (finding) [employer] Phone: Start: 06-06-2013 Alcohol Comment occasional [employer] Phone: Start: 1955 Sex Assigned At Not on file [employer] Phone: Start: 10-09-2022 End: 10-19-2022 Exposure to SARS-CoV-2 (event) Not sure [employer] Start: 1955 Sex Assigned At Male [facility] Start: 11-26-2020 End: 05-30-2023 History of Social function [facility] Work Phone: Start: 11-26-2020 End: 05-30-2023 Humiliation, Afraid, Rape, and Kick questionnaire [HARK] [facility] Work Phone: Within the last year , have you been afraid of your partner or ex-partner? No [facility] Work Phone: Do you belong to any clubs or organizations such as episcopal groups, unions, fraternal or athletic groups, or [...] drinks on 1 occasion? Never [facility] How hard is it for y ou to pay for the very basics like food, housing, medical care, and heating Not hard at all [facility] Do you feel stress - tense, restless, nervous, or anxious, or unable to sleep at night because your mind is troubled all the time - these days [OSQ] Only a little [facility] Healthcare (I/We) worried [facility] (my/our) food would run out before (I/we) got money to buy more. Never true [facility] Start: 08-17-2023 Tobacco Comment Last smoked 10-15 years [facility] Start: 04-28-2023 Alcohol Comment Caffeine intake: yes, coffee [facility] Start: 11-08-2023 End: 09-27-2024 Alcoholic beverage intake Current non-drinker of alcohol (finding) [facility] Start: 05-29-2015 Sex Male (finding) [facility] Medical Equipment Procedure Code Equipment Code Equipment Origin al Text Equipment Identifier Dates Screw Bne L80mm Dia3.5mm Pelv [place] [address] Thrd Sm Hex - [id number] Start: 09-06-2022 Plate Bone L103m m 7 H Strl Lt Lat Dstl Fibular S Stl For - [id number] Start: 10-19-2022 Goals Date Patient Goal Desired Activity /State Personal health goal Comment on above: Formatting of this n ote might be different from the original. Evaluation of progress towards goal: Safe dc transition from hospital to home with family support. Functional Status Date Assessment Result Facility 09-30-2022 Functional status Patient is Pro gressing Toward Baseline [facility] Work Phone: 09-11-2022 Functional status Disability Sta tus Patient is Progressing Toward Baseline [facility] Work Phone: Mental Status Date Assessment Result Facility 09-30-2022 Cognitive function Cognitive Sta tus Patient at Baseline [facility] Work Phone: Clinical Notes 10-31-2020 to 11-29-2024 Luis Velazquez MD - 11/15/2024 9:00 AM ESTAssessment & Plan Note - Norma Hurd MD - 09/27/2024 1:37 PM ESTAssessment & Plan Note - Norma Hurd MD - 09/27/2024 1:37 PM EST Note Date & Type Note Facility 11-29-2024 Note Cardiovascular Medic [facility] SUBJECTIVE Chief Complaint Patient presents with Atrial Fibrillation Congestive Heart Failure Indio Collado is a 69 y.o. male being evaluated today for follow-up after his recent a.fib ablation. Telehealth appt was conducted today in light of icy weather. PMHx: CAD, HTN, HFpEF, DVT, obesity s/p bariatric surgery, a.fib 11/29/2024 Since I last saw Mr. Collado, he saw Dr. Pressley and he underwent an a.fib ablation. He states he feels great since his procedure. Leg swelling is controlled. Denies c/o CP, dyspnea, orthopnea, PND, dizziness/LH, palpitations, syncope. He does admit to taking Eliquis daily instead of BID due to cost. After our telehealth visit, pt came to the clinic to have an EKG today. EKG showed sinus deuce, HR 42. He remains asymptomatic. He is unsure if he is taking amio or Toprol. He will let us know when he gets home. 06/06/2024 He is feeling better today. HR [...] work at 3 jobs. He works at [employer] and eats their food when he drinks. [...] working 3 jobs. He started working a [employer] last month, this is when he noticed the weight gain. He admits to eating food at [employer] and drinking more pop that he typically does. He admits he needs to slow down with his jobs. He will likely quit [employer]. He notes that since his gastric bypass [...] deep vein thrombosis (DVT) of both lower (more content not included)... [facility] 11-29-2024 Note Telemedicine visit f or follow up afib ablation performed on 10/25/[address] Pressley. Says he feels well. He's only taking Eliquis once daily due to cost. Says his insurance called him today and they refilled a medication. He thinks it's for BP. I saw metoprolol on his reconciled meds and asked him if it was that. He thinks it is. He doesn't know who started him on it. Denies chest pain, SOB, palpitations, lightheadedness/syncope, and bleeding on Eliquis. Review of Systems Cardiovascular: Positive for leg swelling. All other systems reviewed and are negative. [facility] 11-15-2024 History of Present illness Narrative Images from the original note were not included. HPI Medication Question Additional comments: Pt was wondering if there were any meds he could stop taking Last edited by Emmie Stock LPN on 11/15/2024 8:54 AM. Subjective Patient ID: Indio Collado is a 69 y.o. male who presents for Hypertension and Medication Question (Pt was wondering if there were any meds he could stop taking). Hypertension Patient is here for follow-up of elevated blood pressure. Blood pressure is well controlled at home. Cardiac symptoms: none. Patient denies chest pain, claudication, exertional chest pressure/discomfort, irregular heart beat, lower extremity edema, near-syncope, orthopnea, palpitations, paroxysmal nocturnal dyspnea, syncope, and tachypnea. Cardiovascular risk factors: advanced age (older than 55 for men, 65 for women), hypertension, and male gender. Hypertension Current Outpatient Medications on File Prior to Visit Medication Sig Dispense Refill atorvastatin (Lipitor) 80 MG tablet TAKE 1 TABLET BY MOUTH EVERY DAY 90 tablet 2 dapagliflozin (Farxiga) 10 MG Take 10 mg by mouth in the morning. Dietary Management Product (Vasculera) tablet Take 1 tablet by mouth in the morning. Eliquis 5 MG tablet famotidine (Pepcid) 20 MG tablet Take 20 mg by mouth in the morning and 20 mg in the evening. fludrocortisone (Florinef) 0.1 MG tablet Take 1 tablet (0.1 mg) by mouth at bedtime 90 tablet 3 FLUoxetine (PROzac) 20 MG capsule Take 20 mg by mouth in the morning. furosemide (Lasix) 20 MG tablet Take 1 tablet in morning , 1 tablet in evening 200 tablet 3 gabapentin (Neurontin) 300 MG capsule Take 3 capsules by mouth in the morning , in the evening and before bedtime 270 capsule 5 meloxicam (Mobic) 15 MG tablet TAKE 1 TABLET BY MOUTH EVERY DAY 90 tablet 0 metoprolol succinate XL (Toprol-XL) 25 MG 24 hr tablet TAKE 1 TABLET BY MOUTH DAILY 30 tablet 11 omeprazole (PriLOSEC) [address] capsule TAKE 1 CAPSULE BY MOUTH EVERY DAY 30 MINUTES BEFORE MORNING MEAL 100 capsule 3 potassium chloride CR (Klor-Con M10) 10 MEQ ER tablet Take 20 mEq by mouth in the morning and 20 mEq in the evening. sacubitril-valsartan (Entresto) 24-26 MG tablet Take 1 tablet by mouth in the morning and 1 tablet in the evening. tiZANidine (Zanaflex) 4 MG tablet TAKE 1 TABLET (4 MG) BY MOUTH EVERY 8 HOURS IF NEEDED FOR MUSCLE SPASMS 60 tablet 1 zolpidem (Ambien) 10 MG tablet Take 1 tablet (10 mg) by mouth as needed at bedtime for sleep 30 tablet 2 amiodarone (Pacerone) 100 MG tablet Take 100 mg by mouth in the morning. [DISCONTINUED] omeprazole (PriLOSEC) [address] capsule TAKE 1 CAPSULE BY MOUTH EVERY DAY 30 MINUTES BEFORE MORNING MEAL FOR 90 DAYS 100 capsule 3 No current facility-administered medications on file prior to visit. I have reviewed and reconciled the history and medication list with the patient today. Allergies Allergen Reactions Penicillins Hives, Other, Rash and Unknown Morphine GI intolerance Doxycycline Itching Other Reaction(s): Itching Social History Tobacco Use Smoking status: Former Current packs/day: 0.00 Types: Cigarettes Quit date: 10/24/2005 Years since quittin.0 Tobacco comments: Last smoked 10-15 years Substance [...] TOTAL KNEE ARTHROPLASTY 2015 Visit Vitals BP 132/80 Pulse 59 Ht 5' 9 Wt 189 lb SpO2 98% BMI 27.91 kg/m Smoking Status Former BSA 2.04 m Review of Systems Objective Physical Exam Constitutional: General: He is not in acute distress. Appearance: Normal appearance. HENT: Head: Normocephalic and atraumatic. Eyes: General: No scleral icterus. Cardiovascular: Rate and Rhythm: Normal rate. Rhythm irregular. Heart sounds: No murmur heard. Pulmonary: Effort: Pulmonary effort is normal. Breath sounds: Normal breath sounds. No wheezing, rhonchi or rales. Musculoskeletal: Right lower leg: Edema present. Left lower leg: Edema present. Skin: General: Skin is warm and dry. Neurological: Mental Status: He is alert and oriented to person, place, and time. Sensory: No sensory deficit. Motor: No weakness. Psychiatric: Mood and Affect: Mood normal. Behavior: Behavior normal. Assessment/Plan Diagnoses and all orders for this visit: Prostate cancer screening - PSA Mixed hyperlipidemia (CMS/HCC) - Lipid panel; Future Atherosclerosis of [place] coronary artery of [place] heart without angina pectoris (CMS/HCC) - This is a chronic medical condition that is stable since last assessment. No changes in treatment are suggested at this time. Chronic combined systolic and diastolic CHF, NYHA class 1 (CMS/HCC) - No current active congestive heart failure. Dyspnea at exertion, but not at rest. No evidence of pulmonary edema. Medications unchanged. Chronic obstructive pulmonary disease, unspecified (CMS/HCC) Paroxysmal atrial fibrillation (CMS/HCC) Chronic venous hypertension (idiopathic) with ulcer and inflammation of right lower extremity (CMS/HCC) Lymphedema Follow up in about 6 months (around 05/15/2025) for Routine F/U. documented in this encounter [facility] 10-25-2024 Note Patient: Indio sanders Procedure Summary Date: 10/25/24 Room / Location: [facility] / [facility] (Cath) Anesthesia Start: 935 Anesthesia Stop: 124 Procedure: Ablation a-fib paroxysmal Diagnosis: Paroxysmal atrial fibrillation (CMS/HCC) (Paroxysmal atrial fibrillation (CMS/HCC) [I48.0]) Providers: Ivonne Pressley MD Responsible Provider: Rush Garcia MD Anesthesia Type: general ASA Status: 3 Anesthesia Type: general Vitals Value Taken Time BP 143/84 10/25/24 1257 Temp 35.9 ???C (96.6 ???F) 10/25/24 1240 Pulse 76 10/25/24 1306 Resp 11 10/25/24 1306 SpO2 100 % 10/25/24 1306 Vitals shown include unfiled device data. Anesthesia Post Evaluation Patient location during evaluation: PACU Patient participation: complete - patient participated Level of consciousness: awake Pain score: 1 Pain management: adequate Multimodal analgesia pain management approach Airway patency: patent Two or more strategies used to mitigate risk of obstructive sleep apnea Cardiovascular status: hemodynamically stable Respiratory status: room air and nonlabored ventilation Hydration status: euvolemic Patient is hemodynamically stable and is able to be discharged from PACU per anesthesia protocol. There were no known notable events for this encounter. [facility] 10-25-2024 Note Airway Date/Time: 10/25/2024 9:58 AM Urgency: elective Airway not difficult General Information and Staff Patient location during procedure: OR Anesthesiologist: Rush Garcia MD Resident/FURNACE DOOR TENDER/CAA: Ja Basilio MD Performed: resident/FURNACE DOOR TENDER/CAA Indications and Patient Condition Indications for airway management: anesthesia Spontaneous Ventilation: absent Sedation level: deep Preoxygenated: yes Mask difficulty assessment: 1 - vent by mask Planned trial extubation Final Airway Details Final airway type: endotracheal airway Successful airway: ETT Cuffed: yes Successful intubation technique: direct laryngoscopy Facilitating devices/methods: intubating stylet Endotracheal tube insertion site: oral Blade: Maurice Blade size: #4 ETT size (mm): 8.0 Cormack-Lehane Classification: grade I - full view of glottis Placement verified by: chest auscultation and capnometry Measured from: lips ETT to lips (cm): 23 Number of attempts at approach: 1 Ventilation between attempts: none Number of other approaches attempted: 0 [facility] 10-25-2024 Note Arterial Line: Date/Time: 10/25/2024 8:55 AM An arterial line was placed Procedure performed using ultrasound guidance.in the pre-op for the following indication(s): continuous blood pressure monitoring and blood sampling needed. A 20 G (size), 5 cm (length), Angiocath (type) catheter was placed, Seldinger technique used , into the Right radial artery, secured by tape, Tegaderm and Biodisc/Biopatch. Events: patient tolerated procedure well with no complications. Medications Administered fentaNYL (SUBLIMAZE) IV - intravenous 50 mcg - 10/25/2024 8:55:00 AM lidocaine (XYLOCAINE) 1 % SubQ - infiltration 5 mL - 10/25/2024 8:55:00 AM Staffing Performed: resident/FURNACE DOOR TENDER/AYAZ Anesthesiologist: Rush Garcia MD Resident/FURNACE DOOR TENDER: Ja Basilio MD Performed by: Ja Basilio MD Authorized by: Rush Garcia MD [facility] 09-27-2024 Evaluation + Plan note Associated Problem(s): Venous insufficiency of both lower extremities Rigo wrap compression leg elevation and exercise. I have lymphedema pump as well [facility] 09-27-2024 Miscellaneous Notes Associated Problem(s): Venous insufficiency of both lower extremities Rigo wrap compression leg elevation and exercise. I have lymphedema pump as well Addended by: NORMA HURD on: 09/27/2024 01:45 PM Modules accepted: Orders documented in this encounter [facility] 09-27-2024 History of Present illness Narrative Images from the original note were not included. To: LUIS VELAZQUEZ MD HPI: Indio Collado is a 69 y.o. male with bilateral lower extremity venous insufficiency lipodermatosclerosis and history of venous ulcer. He has both GSV ablation and SV ablation and injection sclerotherapy done at [place]. He is here because he is having difficulty controlling his swelling. He has not wrapping his legs well. We had a long discussion about proper wrapping Rigo wrap and compression and leg elevation.. Review of Systems: Review of Systems Constitutional: Negative. HENT: Negative. Respiratory: Negative. Cardiovascular: Negative. Gastrointestinal: Negative. Endocrine: Negative. Genitourinary: Negative. Musculoskeletal: Negative. Skin: Negative. Neurological: Negative. Hematological: Negative. Medications: Current Outpatient Medications on File Prior to Visit Medication Sig Dispense Refill atorvastatin (LIPITOR) 80 mg tablet Take 1 tablet (80 mg total) by mouth in the morning. carvedilol (COREG) 25 mg tablet Take 1 tablet (25 mg total) by mouth in the morning and 1 tablet (25 mg total) in the evening. Take with meals. dilTIAZem CD (CARDIZEM CD) 180 mg 24 hr capsule Take 1 capsule (180 mg total) by mouth in the morning. 28 capsule 0 diosmin complex no.1 (VASCULERA) 630 mg tablet Take 1 tablet by mouth in the morning. 90 tablet 1 FLUoxetine (PROzac) 20 mg capsule Take 1 capsule (20 mg total) by mouth in the morning. furosemide (LASIX) 20 mg tablet Take 1 tablet (20 mg total) by mouth daily. gabapentin (NEURONTIN) 300 mg capsule Take 3 capsules (900 mg total) by mouth 3 (three) times a day. omeprazole (PriLOSEC) 40 mg capsule Take 1 capsule (40 mg total) by mouth in the morning. rivaroxaban (XARELTO) 10 mg tablet Take 1 tablet (10 mg total) by mouth in the morning. tamsulosin (FLOMAX) 0.4 mg capsule Take 1 capsule (0.4 mg total) by mouth in the morning. aspirin 81 mg Take 1 tablet (81 mg total) by mouth in the morning. (Patient not taking: Reported on 09/27/2024) ceFUROxime (CEFTIN) 250 mg tablet Take 1 tablet (250 mg total) by mouth 2 (two) times a day. (Patient not taking: Reported on 09/27/2024) 20 tablet 0 No current facility-administered medications on file prior to visit. Past Medical History: Past Medical History: Diagnosis Date Atrial fibrillation ([facility]) Back pain CHF (congestive heart failure) [place] Coronary artery disease Deep vein thrombosis ([facility]) Dental disease Depression Diverticulitis GERD (gastroesophageal reflux disease) Heart attack [place] 2018 Heart disease Hip pain History of myocardial infarction Hx of blood clots Hyperlipidemia Hypertension Memory loss MRSA (methicillin resistant Staphylococcus aureus) 2018 wound in arm Osteoarthritis Peripheral vascular disease (CMS-HCC) Prolonged emergence from general anesthesia RLS (restless legs syndrome) Shortness of breath Sleep apnea uses cpap at home Past Surgical History: Past Surgical History: Procedure Laterality Date AMPUTATION TOE Left 08/04/2023 Performed by Moreno Cardenas DPM at [facility] BOWEL RESECTION CAPSULOTOMY JOINT METATARSOPHALANGEAL (MTP) & CPT 96901 Left 08/04/2023 Performed by Moreno Cardenas DPM at [facility] CAUTERY UMBILICUS N/A 09/27/2019 Performed by Michael Carmen MD at [facility] COLON SURGERY unsure of surgical name, states for diverticulous COLONOSCOPY N/A 09/27/2019 Performed by Michael Carmen MD at [facility] CORONARY ANGIOPLASTY WITH STENT PLACEMENT EGD N/A 09/27/2019 Performed by Michael Carmen MD at [facility] JOINT REPLACEMENT Bilateral knee replacements TENOTOMY TENDON SINGLE TOE Left 08/04/2023 Performed by Moreno Cardenas DPM at [facility] TOTAL KNEE ARTHROPLASTY Bilateral Social and Family History: Social History Socioeconomic History Marital status: Single Spouse name: Not on file Number of children: Not on file Years of education: Not on file Highest education level: Not on file Occupational History Not on file Tobacco Use Smoking status: Former Current packs/day: 0.00 Average packs/day: 1.5 packs/day for 50.0 years (75.0 ttl pk-yrs) Types: Cigarettes Start date: 10/24/1955 Quit date: 10/24/2005 Years since quittin.9 Smokeless tobacco: Never Vaping Use Vaping status: Never Used Substance and Sexual Activity Alcohol use: No Drug use: No Sexual activity: Defer Other Topics Concern Not on file Social History Narrative Not on file Social Drivers of Health Financial Resource Strain: Low Risk (05/30/2023) [facility] Overall Financial Resource Strain (CARDIA) Difficulty of Paying Living Expenses: Not hard at all Food Insecurity: No Food Insecurity (09/27/2024) Hunger Screening Food Insecurity - Worry: Never True Food Insecurity - Inability: Never True Transportation Needs: No Transportation Needs (05/30/2023) Received from [facility] - Transportation Lack of Transportation (Medical): No Lack of Transportation (Non-Medical): No Physical Activity: Sufficiently Active (05/30/2023) Received from [facility] Exercise Vital Sign Days of Exercise per Week: 7 days Minutes of Exercise per Session: 40 min Stress: No Stress Concern Present (05/30/2023) Received from [facility] [place] of Occupational Health - Occupational Stress Questionnaire Feeling of Stress : Only a little Social Connections: Moderately Integrated (05/30/2023) Received from [facility] Social Connection and Isolation Panel [NHANES] Frequency of Communication with Friends and Family: More than three times a week Frequency of Social Gatherings with Friends and Family: Once a week Attends Congregation Services: More than 4 times per year Active Member of Clubs or Organizations: Yes Attends Club or Organization Meetings: More than 4 times per year Marital Status: Interpersonal Safety: Unknown (12/15/2023) Received from [facility], [facility] [place] Safety & Environment Fear of Current or Ex-Partner: Not on file Emotionally Abused: Not on file Physically Abused: Not on file Sexually Abused: Not on file Physically or Sexually Abused: Not on file Housing Instability: Low Risk (05/30/2023) Received from [facility] Housing Stability Vital Sign Unable to Pay for Housing in the Last Year: No Number of Places Lived in the Last Year: 1 Unstable Housing in the Last Year: No Family History Problem Relation Age of Onset Diabetes Father Heart attack Father Stroke Father Cancer Mother Cancer Sister Cancer Brother Stroke Brother Recent Labs: Recent and relative labs were reviewed and interpreted and contributed to the assessment and plan below. Vitals: BP 147/82 (BP Site: Right Arm, BP Postition: Sitting, BP CUFF SIZE: M (9-13 inches)) Pulse 50 Ht 175.3 cm (5' 9 ) Wt 82.6 kg (182 lb) BMI 26.88 kg/m Body mass index is 26.88 kg/m . Physical Exam: Physical Exam Constitutional: Appearance: Normal appearance. HENT: Head: Normocephalic and atraumatic. Mouth/Throat: Mouth: Mucous membranes are moist. Eyes: Extraocular Movements: Extraocular movements intact. Pupils: Pupils are equal, round, and reactive to light. Cardiovascular: Rate and Rhythm: Normal rate and regular rhythm. Pulmonary: Effort: Pulmonary effort is normal. Breath sounds: Normal breath sounds. Abdominal: General: Abdomen is flat. Bowel sounds are normal. Palpations: Abdomen is soft. Musculoskeletal: General: Normal range of motion. Cervical back: Normal range of motion. Skin: General: Skin is warm and dry. Neurological: General: No focal deficit present. Mental Status: He is alert and oriented to person, place, and time. Mental status is at baseline. Psychiatric: Mood and Affect: Mood normal. Behavior: Behavior normal. Thought Content: Thought content normal. Judgment: Judgment normal. Recent testing: Assessment and Plan: Problem List Venous insufficiency of both lower extremities - Primary Current Assessment & Plan Rigo wrap compression leg elevation and exercise. Indio was seen today for new patient. Diagnoses and all orders for this visit: Venous insufficiency of both lower extremities Varicose veins of leg with pain, bilateral - [facility] [place], [place] Phlebitis and thrombophlebitis - [facility] [place], [place] Norma Hurd MD, ALEYDA, RPVI, FSVS, FACS [facility] This note was created with the assistance of a speech recognition program. While intending to generate a timely document that accurately reflects the content of the visit, no guarantee can be provided that every grammatical or spelling mistake has been or will be identified or corrected. Thank you for your understanding. documented in this encounter [facility] 09-27-2024 Note Addended by: NORMA HURD on: 09/27/2024 01:45 PM Modules accepted: Orders [facility] 09-18-2024 Note [place] Electrophysiology Consult Note [place] Cardiology [facility] Reason for visit: atrial fibrillation 09/18/24 [...] Tobacco Use: Medium Risk (09/03/2024) Received from [facility] [employer] Patient History Smoking Tobacco Use: Former Smokeless Tobacco Use: Unknown Passive Exposure: Not on file Alcohol Use: Not At Risk (05/30/2023) [facility] Frequency of Alcohol Consumption: Monthly or less Average Number of Drinks: 1 or 2 Frequency of Binge Drinking: Never Financial Resource Strain: Low Risk (05/30/2023) [facility] Overall Financial Resource Strain (CARDIA) Difficulty of Paying Living Expenses: Not hard at all Food Insecurity: No Food Insecurity (01/28/2024) Re[facility], [facility] Hunger Screening Within the past 12 months we worried whether our food would run out before we got money to buy more.: Never True Within the past 12 months the food we bought just didn't last and we didn't have money to get more.: Never True Transportation Needs: No Transportation Needs (05/30/2023) Received from [facility] PRAPARE - Transportation Lack of Transportation (Medical): No Lack of Transportation (Non-Medical): No Physical Activity: Sufficiently Active (05/30/2023) Received from [facility] Exercise Vital Sign Days of Exercise per Week: 7 days Minutes of Exercise per Session: 40 min Stress: No Stress Concern Present (05/30/2023) Received from [facility] [employer] [place] of Occupational Health - Occupational Stress Questionnaire Feeling of Stress : Only a little Social Connections: Moderately Integrated (05/30/2023) Received from [facility] Social Connection and Isolation Panel [NHANES] Frequency of Communication with Friends and Family: More than three times a week Frequency of Social Gatherings with Friends and Family: Once a week Attends Congregation Services: More than 4 times per year Active Member of Clubs or Organizations: Yes Attends Club or Organization Meetings: More than 4 times per year Marital Status: Intimate Partner Violence: Unknown (12/15/2023) [place] Safety & Environment Fear of Current or Ex-Partner: Not on file Emotionally Abused: Not on file Physically Abused: Not on file Sexually Abused: Not on file Physically or Sexually Abused: Not on file Depression: Not at risk (01/09/2024) Received from [facility] PHQ-2 Patient Health Questionnaire-2 Score: 0 Housing Stability: Low Risk (05/30/2023) Received from [facility] Housing Stability Vital Sign Unable to Pay for Housing in the Last Year: No Number of Places Lived in the Last Year: 1 Unstable Housing in the Last Year: No Utilities: Not on file Health Literacy: Adequate Health Literacy (06/05/2024) Received from [facility] B1300 Health Literacy Frequency of need for help (more content not included)... [facility] 09-04-2024 Telephone encounter Note OARRS reviewed, Rx sent into patient's pharmacy. [facility] 09-04-2024 Miscellaneous Notes OARRS reviewed, Rx sent into patient's pharmacy. documented in this encounter [facility] 09-03-2024 History of Present illness Narrative Images [...] bedtime, Disp: 270 capsule, Rfl: 5 HYDROcodone-acetaminophen (Wilmer) 7.5-325 MG tablet, Take 1 tablet by [...] or corrected. Thank you for your understanding. Moreno Cardenas DPM documented in this encounter [facility] 08-22-2024 Telephone encounter Note OARRS reviewed, Rx sent into patient's pharmacy. [facility] 08-22-2024 Miscellaneous Notes OARRS reviewed, Rx sent into patient's pharmacy. documented in this encounter [facility] 07-30-2024 History of Present illness Narrative Images [...] for sleep 30 tablet 2 [DISCONTINUED] HYDROcodone-acetaminophen (Wilmer) 5-325 MG tablet Take 1 tablet by [...] for this visit: Lumbar spondylosis - HYDROcodone-acetaminophen (Wilmer) 7.5-325 MG tablet; Take 1 tablet by [...] report generated and reviewed. Provided pt with Wilmer 7.5 mg. Advised the goal will be [...] vaccination - Influenza, high-dose seasonal, quadrivalent, PF (RDS885) (Fluzone High Dose Quad North 0.7mL dose) Provided pt with flu shot today, he tolerated this well. Retrolisthesis of vertebrae Comments: L2-L3 Orders: - MR lumbar spine wo contrast; Future Will assess further with MRI. Follow up in about 3 months (around 10/30/2024) for Medication Follow Up. documented in this encounter [facility] 07-12-2024 History of Present illness Narrative Images from the original note were not included. Subjective Patient ID: Indio Collado is a 69 y.o. male who presents for Back Pain. Follow up for ongoing back pain-no improvement Muscle relaxer are just making him tired and he can not function to work during the day Pt has tried heat ice muscle relaxer icyhot but nothing is helping Back Pain This is a chronic problem. The current episode started more than 1 month ago. The problem has been gradually worsening since onset. The quality of the pain is described as aching. Current Outpatient Medications on File Prior to Visit Medication Sig Dispense Refill atorvastatin (Lipitor) 80 MG tablet TAKE 1 [...] at bedtime for sleep 30 tablet 2 amiodarone (Pacerone) 100 MG tablet Take 100 mg by mouth in the morning. [DISCONTINUED] cyclobenzaprine (Flexeril) 10 MG tablet Take 1 tablet (10 mg) by mouth in the morning and 1 tablet (10 mg) in the evening and 1 tablet (10 mg) before bedtime. Do all this for 14 days. 42 tablet 0 No current facility-administered medications on [...] Comment: Caffeine intake: yes, coffee Drug use: Not Currently Family History Problem Relation Name Age of Onset Hypertension Mother Diabetes Mother Other (liver failure) Mother Deep vein thrombosis Mother Cancer Mother Heart disease Father Hypertension Father Stroke Father Cancer Sibling Throat cancer Cousin Past Medical History: Diagnosis Date Abdominal wall abscess 09/01/2021 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) 08/04/2023 2nd toe Atrial fibrillation (CMS/HCC) Coronary artery disease (CMS/HCC) Diabetes mellitus (CMS/[facility]) Diverticulosis H/O knee surgery 2021 Heart failure ([facility]) History of blood clots Hx of being hospitalized acute renal failure, elevated troponin, elevated dimmer, thrombocytopenia Hypertension ([facility]/HCC) Shingles Stomach problems Venous stasis ulcer Left [...] ARTHROPLASTY TOTAL KNEE ARTHROPLASTY 2015 Visit Vitals Ht 5' 9 BMI 26.40 kg/m Smoking Status Former BSA 1.99 m Review of Systems Constitutional: Negative. HENT: Negative. Eyes: Negative. Respiratory: Negative. Cardiovascular: Negative. Gastrointestinal: Negative. Genitourinary: Negative. Musculoskeletal: Positive for arthralgias, back pain and myalgias. Skin: Negative. Neurological: Negative. Psychiatric/Behavioral: Negative. Endocrine: Negative. Allergic/Immunologic: Negative. Objective Physical Exam Vitals reviewed. Constitutional: Appearance: Normal appearance. HENT: Head: Normocephalic and atraumatic. Right Ear: External ear normal. Left Ear: External ear normal. Nose: Nose normal. Eyes: Extraocular Movements: Extraocular movements intact. Conjunctiva/sclera: Conjunctivae normal. Pupils: Pupils are equal, round, and reactive to light. Cardiovascular: Rate and Rhythm: Normal rate and regular rhythm. Pulses: Normal pulses. Heart sounds: Normal heart sounds. Pulmonary: Effort: Pulmonary effort is normal. Breath sounds: Normal breath sounds. Abdominal: General: Abdomen is flat. Bowel sounds are normal. Palpations: Abdomen is soft. Musculoskeletal: Cervical back: Normal range of motion and neck supple. Comments: Pain at the lower right lumbar area, mild swelling with limited ROM dt pain Neurological: Mental Status: He is alert and oriented to person, place, and time. Motor: Weakness present. Gait: Gait abnormal. Psychiatric: Mood and Affect: Mood normal. Behavior: Behavior normal. Thought Content: Thought content normal. Judgment: Judgment normal. Assessment/Plan 1. Acute myofascial strain of lumbar region, subsequent encounter Discussed diagnosis, use of norco and its most common side effects. He is advised to continue to rest the area as he is able, continue ice to the area, alternating with heat, continue the tizanidine as tolerated and follow up if continued or worsening symptoms - HYDROcodone-acetaminophen (Wilmer) 5-325 MG tablet; Take 1 tablet by mouth every 6 (six) hours if needed for severe pain for up to 15 days Dispense: 60 tablet; Refill: 0 2. Lumbar paraspinal muscle spasm - HYDROcodone-acetaminophen (Wilmer) 5-325 MG tablet; Take 1 tablet by mouth every 6 (six) hours if needed for severe pain for up to 15 days Dispense: 60 tablet; Refill: 0 3. Back muscle spasm Continue the tizanidine as ordered. - tiZANidine (Zanaflex) 4 MG tablet; Take 1 tablet (4 mg) by mouth every 8 (eight) hours if needed for muscle spasms Dispense: 60 tablet; Refill: 1 - HYDROcodone-acetaminophen (Wilmer) 5-325 MG tablet; Take 1 tablet by mouth every 6 (six) hours if needed for severe pain for up to 15 days Dispense: 60 tablet; Refill: 0 No follow-ups on file. documented in this encounter [facility] 07-12-2024 Instructions Alexandre Reinoso NP - 07/12/2024 3:30 PM EDT Wilmer is added at 5/325 mg tablets, x 15 days, #60 Continue tizanidine as ordered documented in this encounter [facility] 07-10-2024 Telephone encounter Note We did received cardiac clearance. Referral placed to Dr Willis, he is a shoulder specialist with [facility] in [place]. His phone number is [phone]. Call back with any questions. [facility] 07-10-2024 Miscellaneous Notes We did received cardiac clearance. Referral placed to Dr Willis, he is a shoulder specialist with [facility] in [place]. His phone number is [phone]. Call back with any questions. Pt called and left vm asking if received cardiac clearance yet from doctor, and if so he would like to schedule his sx. Please call him at [phone] documented in this encounter [facility] 07-09-2024 Telephone encounter Note Pt called and left vm asking if received cardiac clearance yet from doctor, and if so he would like to schedule his sx. Please call him at [phone] [facility] 06-28-2024 History of Present illness Narrative Images from the original note were not included. HISTORY OF PRESENT ILLNESS: Indio Collado is an 69 y.o. @ male. Chief complaint LT shoulder pain LT shoulder: here for MRI results [facility] 06/13/24. LT shoulder pain x 01/2023, uses a zero turn at work, can hardly use it anymore, has to take breaks. Tripped and fell 07/25/23, went to [facility] ER, had XR. Pain has been getting worse x 2-3 months. NKI. He reports the pain gets worse every day. Pain can be diffuse but mostly lateral shoulder. He has limited and painful ROM. Difficulty turning steering wheel in his truck. Admits TYL with little relief and gabapentin. Using icy hot with little relief. Admits some intermittent N/T in LT hand x 6 months. Does not wake at HS, he takes a sleeping pill. Not able to lift things. He has difficulty working due to pain. Prior tx: XR [facility] 05/31/23, gabapentin, TYL, ice, heat, creams, depo injection 05/31/23, [facility] ER with XR 07/25/23, icy hot,aspiration/GH depo injx 10/25/23, GH depo injx 12/06/23, SA depo injx 04/05/24, MRI [facility] 06/13/24 *Heart cath done 03/29 *Hx of bariatric surgery* + diabetes, A1C 5.8 on 03/09/24 MEDICATION: Current Outpatient Medications on File Prior to Visit Medication Sig Dispense Refill fludrocortisone (Florinef) 0.1 MG tablet Take 1 tablet (0.1 mg) by mouth at bedtime 90 tablet 3 amiodarone (Pacerone) 100 MG tablet Take 100 mg by mouth in the morning. atorvastatin (Lipitor) 80 MG tablet TAKE 1 TABLET BY MOUTH EVERY DAY 90 tablet 2 dapagliflozin (Farxiga) 10 MG Take 10 mg by mouth in the morning. Dietary Management Product (Vasculera) tablet Take 1 tablet by mouth in the morning. Eliquis 5 MG tablet FLUoxetine (PROzac) 20 MG capsule Take 20 [...] morning and 1 tablet in the evening. Xarelto 20 MG tablet Take 20 mg by mouth in the evening. Take with meals zolpidem (Ambien) 10 MG tablet Take 1 tablet (10 mg) by mouth as needed at bedtime for sleep 30 tablet 2 No current facility-administered medications on file prior to visit. MEDICAL HISTORY: Past Medical History: Diagnosis Date Abdominal wall abscess 09/01/2021 Amputation of toe of left foot ([facility]/HCC) 08/04/2023 2nd toe Atrial fibrillation ([facility]/HCC) Coronary artery disease ([facility]/HCC) Diabetes mellitus ([facility]/HCC) Diverticulosis H/O knee surgery 2021 Heart failure ([facility]/HCC) History of blood clots Hx of being hospitalized acute renal failure, elevated troponin, elevated dimmer, thrombocytopenia Hypertension (CMS/HCC) Shingles Stomach problems Venous stasis ulcer Left Calf 2017 ALLERGIES: Allergies Allergen Reactions Penicillins Hives, Other, Rash and Unknown Morphine GI intolerance Doxycycline Itching Other Reaction(s): Itching VITALS: Visit Vitals Smoking Status Former PHYSICAL EXAM: Ortho Exam LEFT SHOULDER ROM 30/40/S1 Diffuse tenderness Positive Drop Crepitus IMAGING: I reviewed an MRI of the left shoulder from the [facility] dated June 13, 2024. There is fatty infiltration into the supraspinatus infraspinatus and subscapularis. There is a massive retracted rotator cuff tear involving the subscapularis supraspinatus and infraspinatus. The humeral head is elevated and abutting against the undersurface of the acromion. There is subchondral sclerosis noted on the humeral head and there is flattening of the humeral head superiorly from what appears to be chronic impingement on the acromion from the humeral head. There is near normal glenoid morphology and an adequate glenoid vault. ASSESSMENT: ICD-10-CM 1. Rotator cuff tear arthropathy of left shoulder M75.102 M12.812 2. Primary osteoarthritis of left shoulder M19.012 PLAN: I explained the MRI, diagnosis and reviewed treatment options including injections vs shoulder replacement. I answered all of the patient's questions. We discussed shoulder replacement if he could be cleared from [employer], I would refer him to a shoulder joint specialist due to his co-morbidities. Follow up as needed, any issues/concerns follow up sooner. Dr. Villanueva obtained history and examined the patient, I am acting as scribe for Dr. Villanueva/jessica Villanueva D.O. documented in this encounter [facility] 06-14-2024 Telephone encounter Note 06/06 PT Eval [facility] 06-14-2024 Miscellaneous Notes 06/06 PT Eval $20.00 copay / med nec documented in this encounter [facility] 06-06-2024 Note Pt is here for a one month follow up. Pt needs cleared for surgery. Review of Systems All other systems reviewed and are negative. [facility] 06-06-2024 Note Cardiovascular Medic [facility] SUBJECTIVE Chief Complaint Patient presents with [...] fall along with phasing out working for [employer]. Denies c/o CP, dyspnea, orthopnea, PND, LE [...] work at 3 jobs. He works at [employer] and eats their food when he drinks. [...] working 3 jobs. He started working a [employer] last month, this is when he noticed the weight gain. He admits to eating food at [employer] and drinking more pop that he typically does. He admits he needs to slow down with his jobs. He will likely quit [employer]. He notes that since his gastric bypass [...] of skin (CMS/HCC) (more content not included)... [facility] 06-01-2024 Telephone encounter Note $20.00 copay / med nec T [facility] 05-09-2024 Note Cardiovascular Medic [facility] SUBJECTIVE Chief Complaint Patient presents with [...] work at 3 jobs. He works at [employer] and eats their food when he drinks. [...] working 3 jobs. He started working a [employer] last month, this is when he noticed the weight gain. He admits to eating food at [employer] and drinking more pop that he typically does. He admits he needs to slow down with his jobs. He will likely quit [employer]. He notes that since his gastric bypass [...] thrombosis (CMS/HCC) H (more content not included)... [facility] 04-30-2024 Note DIRECT CARDIOVERSION PROCEDURE NOTE Date: 04/30/24 Type of procedure: DC Cardioversion. Performed by: Ivonne Pressley MD Informed consent: Signed by patient. [...] noted. Plan: Continue anticoagulation and consider ablation. Ivonne Pressley MD Cardiac Electrophysiology [facility] 04-30-2024 Note Patient: Indio sanders Procedure Information Date/Time: 04/30/24 0900 Procedure: Cardioversion - in three weeks Location: [facility]IT[facility]ING ROOM / [facility] (Cath) Providers: Ivonne Pressley MD Clinical information reviewed: Tobacco Allergies Meds Med Hx Surg Hx Fam Hx Physical Exam Airway Mallampati: II TM distance: >3 FB Neck ROM: full Cardiovascular Dental Pulmonary Abdominal Anesthesia Plan ASA 2 CSE Anesthetic plan and risks discussed with patient. Use of blood products discussed with patient who. Additional Equipment Requests [facility] 04-10-2024 Note [place] Electrophysiology Consult Note [place] Cardiology - [facility] Reason for visit: atrial [...] on file Intimate Partner Violence: Unknown (12/15/2023) [place] Safety & Environment Fear of Current or [...] alert, normal affec (more content not included)... [facility] 03-29-2024 Note Cardiovascular Labor atory Report FINAL [...] and likely rate/rhythm related cardiomyopathy Follow-up with Margo Cortez CNP and Ivonne Pressley MD PROCEDURES: Ultrasound-guided access to the right common femoral artery, limited femoral angiography, ultrasound-guided access to the right common femoral vein, right heart catheterization, bilateral selective coronary angiography, placement of a 6 [place] Mynx funeral counselor closure device METHODS: After risks, benefits, and [...] micropuncture kit was upsized to a 6 [place] 11 cm sheath. Angiography via the sheath [...] procedure. All catheters were removed. A 6 [place] Mynx closure device was deployed per protocol [...] ejection fraction, atrial fibrillation, coronary artery disease [facility] 03-08-2024 Note Cardiovascular Medic [facility] SUBJECTIVE Chief Complaint Patient presents with [...] work at 3 jobs. He works at [employer] and eats their food when he drinks. [...] gain. He admits to eating food at [employer] and drinking more pop that he typically [...] Cigarettes Smokeless tobacco (more content not included)... [facility] 03-08-2024 Note Patient here for fol low [...] All other systems reviewed and are negative. [facility] 02-29-2024 Note Cardiology DC Cardio version Procedure [...] No hemodynamic complications noted. Kristen Bai MD Head Bellhop Captain - PGY5 [facility] I [...] neurological examination was intact. Ellen Taveras MD, [facility] 02-29-2024 Note H&P reviewed. The pa tient was examined and there are no changes to the H&P. The procedure was explained to the patient. The risks and benefits of the procedure were explained to the patient who showed understanding and with full capacity elected to proceed with the procedure. All questions were addressed and answered. Kristen Bai MD Head Bellhop Captain - PGY5 [facility] 02-14-2024 Note Patient here for [facility] ED. He was diagnosed with new onset [...] All other systems reviewed and are negative. [facility] 02-14-2024 Note Cardiovascular Medic [facility] SUBJECTIVE Chief Complaint Patient presents with [...] working 3 jobs. He started working a [employer] last month, this is when he noticed the weight gain. He admits to eating food at [employer] and drinking more pop that he typically does. He admits he needs to slow down with his jobs. He will likely quit [employer]. 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 ([facility]/HCC) Restless legs Retention of urine Skin tags, multiple acquired Stricture of esophagus Surgical site infection TBI (traumatic brain injury) ([facility]) Traumatic arthropathy of knee Type 2 diabetes mellitus without complication ([facility]) Accelerated essential hypertension Type III open fracture of left ankle Wound of left ankle Non-pressure chronic ulcer of unspecified part of unspecified lower leg with unspecified severity ([facility]) Paroxysmal atrial fibrillation ([facility]) Past Medical History: Diagnosis Date Abnormal ECG Arrhythmia Atrial fibrillation ([facility]/HCC) CHF (congestive heart failure) ([facility]) Coronary artery disease Deep vein thrombosis ([facility]) Hyperlipidemia Hypertension Myocardial infarction ([facility]) Sleep apnea Family History Problem Relation Name [...] dilTIAZem CD (Cardizem (more content not included)... [facility] 12-06-2023 History of Present illness Narrative Associated [...] breaks. Tripped and fell 07/25/23, went to [facility] ER, had XR. Pain has been getting [...] TYL, ice, heat, creams, depo injection 05/31/23, [facility] ER with XR 07/25/23, icy hot,aspiration/GH depo [...] left shoulder dated July 25, 2023 from [facility]. There is narrowing of the acromioclavicular [...] and benefits explained, specific risks discussed. Greg Villanueva D.O. documented in this encounter [facility] 12-05-2023 History of Present illness Narrative [...] Appointment As Scheduled. documented in this encounter [facility] 11-08-2023 History of Present illness Narrative Images from the original note were not included. To LUIS VELAZQUEZ MD Indio Collado is a 68 [...] for your understanding. documented in this encounter [facility] 10-26-2023 Miscellaneous Notes Good morning. Received call from patient's daughter stating that Dr. Zepeda was supposed to order a cast for patient's leg and send to [facility]. Patient's daughter stated that there were no order when she contact the [facility] and would like to know what is going on. Patient can be reached at, or [phone]. Thank you very much. Patients girl friend is scheduling patients testing that has not been scheduled for patient at check out. Patient is now scheduled for testing and a follow up documented in this encounter [facility] 10-26-2023 Telephone encounter Note Good morning. Received call from patient's daughter stating that Dr. Zepeda was supposed to order a cast for patient's leg and send to [facility]. Patient's daughter stated that there were no order when she contact the [facility] and would like to know what is going on. Patient can be reached at, or [phone]. Thank you very much. [facility] 10-26-2023 Telephone encounter Note Patients girl friend is scheduling patients testing that has not been scheduled for patient at check out. Patient is now scheduled for testing and a follow up [facility] 11-09-2022 Hospital Discharge instructions Shiloh Durham RN [...] his office on 11/15/21 at 1:00pm. Call [phone] with questions/concerns. No alcoholic beverages, no driving [...] your surgeon documented in this encounter [facility] [employer] Phone: 11-09-2022 History of Present illness Narrative Dr. Babin aware that pt took eliquis last night. documented in this encounter [facility] [employer] Phone: 10-05-2022 Progress note Note Date/Time October 05, 2022 10:14am [facility] [address] [place] [address] Wound Center Provider Note Signed Patient: Indio Collado MR#: [id number] : 1955 Acct:[id number] Age/Sex: 67 / M Copies to: MD Luis Myers II, MD Seth Andrew Phillips DO Honey Hines APRN~ HPI Date of Visit Date of Visit: Date of Service: 10/05/2022 Time of Service: 10:04 Narrative HPI: 10/05/22 Indio is a 67 year old presenting to [facility] wound care program for an initial [...] start?: September 06, 2022 Mode of Arrival/ Electric Cell Tender: Personal vehicle and Friend Assistive Device Used Today: Walker Lives with:: Alone Appetite Description: Within Normal Limits Who helps w/ dressing change?: Self Why Do You Need Help?: Can't Reach Ulcer and Limited mobility Smoking Status: Former smoker [facility] Medical History (Updated 10/05/22 @ 10:14 by [...] Abdomen: Type: Traumatic Thickness: Full Bed Appearance: [place] and Yellow Percent of Wound Bed Granulated/Red: 5 Percent of Devitalized: 95 Length (cm): 0.5 Width (cm): 11.2 Depth (cm): 0.1 CM Sq: 5.600 Surrounding Tissue Appearance: [place] Surrounding Tissue Temp: Warm Drainage Amount: None [...] Leg: Type: Traumatic Thickness: Full Bed Appearance: [place] Percent of Wound Bed Granulated/Red: 100 Percent [...] signed by MD Efrain Aquino> 10/05/22 1200 [facility] Work Phone: [phone]) 943-443710-06-2022 NotePROCEDURE: XR KNEE RT 3V COMPARISON: 03/20/2015 HISTORY: Pain of joint of knee FINDINGS: BONES:Total knee arthroplasty with long stem components. No acute fracture, dislocation or mechanical failure. Patellar resurfacing SOFT TISSUES:Negative. No visible soft tissue swelling. EFFUSION:Small suprapatellar joint effusion. Vascular calcifications. OTHER: Negative. IMPRESSION: Total knee arthroplasty with small joint effusion Electronically authenticated by: INDIO MCKNIGHT Date: 2022-07-29 18:30[facility] CenterRiehyqrb01-[facility]-5056 NotePROCEDURE: XR TIB_FIB LT 2V HISTORY: Open [...] authenticated by: THOMAS COLBERT Date: 2022-07-14 08:55[facility] CenterGgqdexuw84-49-2811 NoteMR#: [id number] I [facility] Pt. Name: Indio Collado Admitted: 02/15/2022 Discharged: 02/16/2022 Date of : 1955 Physician: Luis Yang M.D. DISCHARGE SUMMARY PRINCIPAL DIAGNOSES: Right [...] surgery for postoperative evaluation. Electronically Signed by: Luis Yang M.D. 03/14/2022 09:01 A Luis Yang M.D. I have reviewed this discharge summary and confirmed the resident's documentation. Please note that there may be additional documentation from [place]. Date Dict: 03/08/2022/12:20 P/Lonny Castorena MD Date Trans: 03/09/2022 10:38 A/mmo [id number] cc: Luis Velazquez M.D. [address] [place] [id number] Note [id number]:[address] [place] [address] Evaluation note* Diagnosis Surgical site infection- Primary Post-op pain Other acute postoperative pain Wound of left ankle documented in this encounter [facility] Work Phone: evaluation note* Diagnosis Onset [...] Surgical wound, non healing chronic Traumatic wound [facility] Work Phone: Evaluation note* Diagnosis Chronic obstructive pulmonary disease with acute exacerbation (CMS/HCC)- Primary [facility] Diagnosis Left shoulder pain, unspecified chronicity- Primary Rotator cuff tear arthropathy of 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 [facility] Diagnosis Lumbar spondylosis- Primary Lumbosacral spondylosis without myelopathy Closed compression fracture of body of L1 vertebra (HCC) ([facility]) Need for vaccination Need for prophylactic vaccination and inoculation against unspecified single disease Retrolisthesis of vertebrae [facility] Diagnosis 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 [facility] Diagnosis Lumbar spondylosis Lumbosacral spondylosis without myelopathy [facility]* Diagnosis Left foot pain- Primary Pain in soft tissues of limb Right foot pain Pain in soft tissues of limb Metatarsalgia of both feet Equinus contracture of right ankle Equinus contracture of left ankle [facility]* Diagnosis Lumbar spondylosis Lumbosacral spondylosis without myelopathy [facility]* Diagnosis Metatarsalgia of both feet [facility]* Diagnosis Primary insomnia Persistent disorder of initiating or maintaining sleep [facility]* Diagnosis Venous insufficiency of both lower extremities- Primary Varicose veins of leg with pain, bilateral Phlebitis and thrombophlebitis Phlebitis and thrombophlebitis of unspecified site [facility] Diagnosis Right-sided low back pain without sciatica, unspecified chronicity- Primary Acute myofascial strain of lumbar region, subsequent encounter DISH (diffuse idiopathic skeletal hyperostosis) 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 [facility] Diagnosis Right-sided low back pain without sciatica, unspecified chronicity- Primary Acute myofascial strain of lumbar region, subsequent encounter DISH (diffuse idiopathic skeletal hyperostosis) 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 [facility] Diagnosis Primary insomnia Persistent disorder of initiating or maintaining sleep Neuropathy due to type 2 diabetes mellitus ([facility]) documented [facility]* Diagnosis Right-sided low back pain without sciatica, unspecified chronicity- Primary Acute myofascial strain of lumbar region, subsequent encounter DISH (diffuse idiopathic skeletal hyperostosis) 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 [facility]* Diagnosis Rotator cuff tear arthropathy of left shoulder- Primary Primary osteoarthritis of left shoulder [facility]* Diagnosis Lumbar paraspinal muscle spasm- Primary Other symptoms referable to back Acute myofascial strain of lumbar region, subsequent encounter Back muscle spasm Other symptoms referable to back documented in this encounter [facility]* Diagnosis Prostate cancer screening- Primary Special screening for malignant neoplasm of prostate Mixed hyperlipidemia (CMS/HCC) Mixed hyperlipidemia Atherosclerosis of [place] coronary artery of [place] heart without angina pectoris (CMS/HCC) Chronic combined systolic and diastolic CHF, NYHA class 1 (CMS/HCC) Chronic obstructive pulmonary disease, unspecified (CMS/HCC) Paroxysmal atrial fibrillation (CMS/HCC) Atrial fibrillation Chronic venous hypertension (idiopathic) with ulcer and inflammation of right lower extremity (CMS/HCC) Lymphedema Other noninfectious lymphedema documented in this encounter [facility]* Diagnosis Venous insufficiency of both lower extremities- Primary Lymphedema of both lower extremities documented in this encounter [facility]ructionsNot on filedocumented in this encounter [facility] SystemInstructionsNot on filedocumented in this encounter [facility] SystemInstructionsNot on filedocumented in this encounter [facility] SystemReason for referral (narrative)* Consultation (Routine) - Authorized Specialty Diagnoses / Procedures Referred By Gladis hutton Referred To Contact Orthopaedic Surgery Diagnoses 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 Eva Villanueva DO [address] [facility] [address] [place] [address] Mac Willis MD [address] [facility] [place] [address] Referral ID Status Reason Start Date Expiration Date Visits Requested Visits Authorized [id number] Authorized Consult and Treat 07/10/2024 01/06/2025 1 1 [facility] Healthcare Summary Purpose Family History Relationship Condition Age at Onset Recorded Date/T oralia father Heart disease Unknown Not Specified Malignant neoplasm Unknown brother Malignant neoplasm Unknown sister Malignant neoplasm Unknown Advance Directives Documents on File Type Date Recorded Patient [place]. Representative Expl anation ACP-Advance Directive 09/14/2022 9:49 AM [...] Time Advance Directives No December 22 8:23am Date Activated Date Inactivated Comments 10/17/2020 11:11 AM 10/20/2020 5:45 PM Latest Code Status on File Code Status [...] shoulder Procedures L Inj/Asp: L glenohumeral Eva Villanueva, [address] [place] [address] Referral ID Status Reason Start Date Expiration Date V isits Requested Visits Authorized [id number] Pending Review 12/06/2023 06/03/2024 1 1 Specialty Diagnoses / Procedures Referred By Contac t Referred To Contact Diagnoses Lumbar spondylosis Closed compression fracture of body of L1 vertebra (HCC) (CMS/HCC) Retrolisthesis of vertebrae Procedures MR lumbar spine wo contrast Juhi Beckford, JADE [address] [facility] [address] [place] [address] Referral ID Status Reason Start Date Expiration Date V isits Requested Visits Authorized [id number] Pending Review 07/30/2024 01/26/2025 1 1 Additional [...] section and content) DATE CREATED AUTHOR 02/25/2021 [facility] DATE CREATED AUTHOR AUTHOR'S ORGANIZ ATION 03/13/2022 [facility] Special[facility] DATE CREATED AUTHOR AUTHOR'S ORGANIZ ATION 03/14/2022 [facility] DATE CREATED AUTHOR AUTHOR'S ORGANIZ ATION 08/02/2022 [facility] DATE CREATED AUTHOR AUTHOR'S ORGANIZ ATION 09/11/2022 [facility] DATE CREATED AUTHOR AUTHOR'S ORGANIZ ATION 09/11/[address] [facility] DATE CREATED AUTHOR AUTHOR'S ORGANIZ ATION 10/20/2022 [facility] DATE CREATED AUTHOR AUTHOR'S ORGANIZ ATION 01/12/2023 [facility] DATE CREATED AUTHOR AUTHOR'S ORGANIZ ATION 11/09/[address] [facility] DATE CREATED AUTHOR AUTHOR'S ORGANIZ ATION 01/29/2024 [facility] DATE CREATED AUTHOR AUTHOR'S ORGANIZ ATION 07/12/2024 [facility] DATE CREATED AUTHOR AUTHOR'S ORGANIZ ATION 11/17/2024 [facility]ists EPIC DATE CREATED AUTHOR AUTHOR'S ORGANIZ ATION 12/01/2024 [facility] Reason for Visit (unrecogniz ed section and content) Specialty Diagnoses / Procedures Referred By Gladis hutton Referred To Contact Diagnoses Open wound of left ankle, initial encounter OPEN WOUND LEFT ANKLE Procedures [place] OFFICE/OUTPT VISIT,PROCEDURE ONLY [place] OPEN TREATMENT MEDIAL MALLEOLUS FRACTURE ANKLE SPLIT THICKNESS SKIN GRAFT (3080 TABLE WITH REVERSE DIVING BOARD, SUPINE, DERMATOMES FOR GRAFT HARVESTING, WOUND VAC, CAN USE LMA FOR ANESTHESIA IF NEEDED) Abelardo Babin, DO [address] [facility] [address] [place] [address] [facility] [address] [place] [address] Referral ID Status Reason Start Date Expiration Date Visits Re quested Visits Authorized [id number] 1 1 Reason Comments Follow-up Reason Onset Date Comments surgery 07/09/2024 Reason Onset Date Comments Med Refill 08/22/2024 Reason Comments Foot Pain Indio Collado is a 69 y.o. male who presents for BL, left is worse, ball of foot pain. Patient has left Endovenous Laser procedure scheduled this 09/05. Patient relates all wounds are healed. Reason Onset Date Comments Med Refill 09/04/2024 Reason Comments Med Refill Reason Onset Date Comments Med Refill 09/10/2024 Reason Comments New Patient varicose veins Specialty Diagnoses / Procedures Referred By Gladis hutton Referred To Contact Vascular Surgery Diagnoses Varicose veins of leg with pain, bilateral Phlebitis and thrombophlebitis [facility] [address] [place] [address] Phone: tel: fax: [facility] [address] [place] [address] Phone: tel: fax: Referral ID Status Reason Start Date Expiration Date Visits Requested Visits Authorized [id number] Pending Review Specialty Services Required 4 09/10/2025 1 1 Specialty Diagnoses / Procedures Referred By Gladis hutton Referred To Contact Physical Therapy Diagnoses Acute myofascial strain of lumbar region, subsequent encounter DISH (diffuse idiopathic skeletal hyperostosis) Baastrup's syndrome Procedures [place] OFFICE/OUTPATIENT NEW [facility] 60 MINUTES Luis Velazquez MD [address] [facility] [address] [place] [address] Gerardo Pierre, PT [address] [facility] [address] [place] [address] Referral ID Status Reason Start Date Expiration Date Visits Requested Visits Authorized [id number] Authorized Specialty Services Required 05/31/2024 11/27/2024 99 99 Reason Onset Date Comments PT Initial Eval 06/01/2024 Tried to contact to set-up PT Eval for Acute myofascial strain of lumbar region, DISH, Baastrup's syndrome but had to lm requesting a call back. Reason Onset Date Comments Med Refill 06/14/2024 [facility] [place] Reason Onset Date Comments PT check 06/28/2024 Contacted re: cx of PT yesterday w/ an appt w/ Daniel today. I noted to him he had no more PT set and he said he has felt no benefit from the PT so far. He has a fu w/ Dalton in Aug and noted he will cont w/ HEP provided and will contact if pain persists. Reason Comments Pain Reason Comments Back Pain Reason Comments Hypertension Medication Question Pt was wondering if there were any meds he could stop taking Reason Comments Follow-up 2 week follow up; Ve nous insufficiency of both lower extremities; for further evaluation of his leg swelling; patient is having pain in both legs at a10+ Ordered Prescriptions (unrec ognized section and content) [...] 20 mL IV syringe 2,000 mg, IntraVENous, GEM CARVER TO O.R., 1 dose, On Tue11/09/22 at [...] approved by provider., PACU only lidocaine-EPINEPHrine 1 %-1:572494 injection (CANCELED) PRN, Starting on Tue11/09/22 at 1203, Until Tue11/09/22 at 1216, Intra-op 1203 (Given - Provid er: Abelardo Babin, DO - Comment: POURED TO BACK [...] only 1337 (Given - Provid er: Lynda Suh, RN) sodium chloride 0.9 % irrigation (CANCELED) CONTINUOUS PRN, Starting on Tue11/09/22 at 1152, Intra-op 1152 (New Bag - Prov ider: Abelardo Babin, DO - Comment: POURED TO BACK [...] Care Teams (unrecognized sec tion and content) Technical Spec Relationship Specialty Start Date End Date Luis Velazquez MD [address] [facility] [address] [place] [address] PCP - General 06/06/13 Team Status: Inactive Member Role Status Dates Luis Velazquez II MD Primary Care Provider Active Honey Hines APRN Attending Provider Active Team Status: Inactive Member Role Status Dates Luis Velazquez II MD Primary Care Provider Active Gordon Smith MD Admit Provider, Attending Provider A ctfly Savage , [place] Other Provider Active Libertad Vazquez , [place] Other Provider Active Taryn Sanders , [place] Other Provider Active Marta Trevizo , [place] Other Provider Active Carmenza Thomas , [place] Other Provider Active Krystyna Carrillo , [place] Other Provider Active Kimo Cary MD Other Provider Active Issac Dimas MD Other Provider Active Adeola Dunn APRN Other Provider Active Ronobir Handy , DO Other Provider Active Jose Jensen [...] MD Other Provider Active Mihaela Miller , TECHNICAL PROJECT MANAGER-C Other Provider Active Gen Reich MD Other Provider Active Gamal Bone MD Other Provider Active Imelda Riddle MD Other Provider Active Matthias Pablo MD Other Provider Active Giselle Jaquez , DO Other Provider Active Jak Vázquez MD Other Provider Active David Rossi , DO Other Provider Active Moreno Roe , DO Other Provider Active Gina Fung , BRICK GRADER Other Provider Active Timothy Vaughan , DO Other Provider Active Jaime Trivedi MD Other Provider Active Katharine Caballero BRICK GRADER Other Provider Active Debora Hunt RN Other Provider Active Fany Ford , BATTERY STARTER Other Provider Active Jenae Mcgee BATTERY STARTER Other Provider Active Fer Mayfield MD Other Provider Active Jackie Berry , TECHNICAL PROJECT MANAGER-C Other Provider Active Norma Hurd MD Other Provider Active Chirag Hatch MD Other Provider Active Team Status: Active Member Role Status Dates Luis Velazquez II MD Primary Care Provider Active Technical Spec Relationship Specialty Start Date End Date Luis Velazquez MD [address] [facility] [address] [place] [address] PCP - Devoted 10/24/22 Luis Velazquez MD [address] [facility] [address] [place] [address] PCP - General Internal Medicine 03/28/23 Technical Spec Relationship Specialty Start Date End Date Luis Velazquez MD [address] [facility] [address] [place] [address] PCP - Devoted 10/24/22 Luis Velazquez MD [address] [facility] [address] [place] [address] PCP - General Internal Medicine 03/28/23 Technical Spec Relationship Specialty Start Date End Date Luis Velazquez MD [address] [facility] [address] [place] [address] PCP - Devoted 10/24/22 Luis Velazquez MD [address] [facility] [address] [place] [address] PCP - General Internal Medicine 03/28/23 Technical Spec Relationship Specialty Start Date End Date Luis Velazquez MD [address] [facility] [address] [place] [address] PCP - Devoted 10/24/22 Luis Velazquez MD [address] [facility] [address] [place] [address] PCP - General Internal Medicine 03/28/23 Technical Spec Relationship Specialty Start Date End Date Luis Velazquez MD [address] [facility] [address] [place] [address] PCP - Devoted 10/24/22 Luis Velazquez MD [address] [facility] [address] [place] [address] PCP - General Internal Medicine 03/28/23 Technical Spec Relationship Specialty Start Date End Date Luis Velazquez MD [address] [facility] [address] [place] [address] PCP - Devoted 10/24/22 Luis Velazquez MD [address] [facility] [address] [place] [address] PCP - General Internal Medicine 03/28/23 Technical Spec Relationship Specialty Start Date End Date Luis Velazquez MD [address] [facility] [address] [place] [address] PCP - Devoted 10/24/22 Luis Velazquez MD [address] [facility] [address] [place] [address] PCP - General Internal Medicine 03/28/23 Technical Spec Relationship Specialty Start Date End Date Luis Velazquez MD [address] [facility] [place] [address] PCP - Devoted 10/24/22 Luis Velazquez MD [address] [facility] [address] [place] [address] PCP - General Internal Medicine 03/28/23 Technical Spec Relationship Specialty Start Date End Date Luis Velazquez MD [address] [facility] [address] [place] [address] PCP - Devoted 10/24/22 Luis Velazquez MD [address] [facility] [address] [place] [address] PCP - General Internal Medicine 03/28/23 Technical Spec Relationship Specialty Start Date End Date Luis Velazquez MD [address] [facility] [place] [address] PCP - Devoted 10/24/22 Luis Velazquez MD [address] [facility] [address] [place] [address] PCP - General Internal Medicine 03/28/23 Technical Spec Relationship Specialty Start Date End Date Luis Velazquez MD [address] [facility] [address] [place] [address] PCP - Devoted 10/24/22 Luis Velazquez MD [address] [place] [address] PCP - General Internal Medicine 03/28/23 Technical Spec Relationship Specialty Start Date End Date Luis Velazquez MD [address], [facility] [address] [place] [address] PCP - General Internal Medicine 10/27/17 Technical Spec Relationship Specialty Start Date End Date Luis Velazquez MD [address] [place] [address] PCP - Devoted 10/24/22 Luis Velazquez MD [address] [facility] [place] [address] PCP - General Internal Medicine 03/28/23 Technical Spec Relationship Specialty Start Date End Date Luis Velazquez MD [address] [facility] [place] [address] PCP - Devoted 10/24/22 Luis Velazquez MD [address] [place] [address] PCP - General Internal Medicine 03/28/23 Technical Spec Relationship Specialty Start Date End Date Luis Velazquez MD [address] [facility] [place] [address] PCP - Devoted 10/24/22 Luis Velazquez MD [address] [place] [address] PCP - General Internal Medicine 03/28/23 Technical Spec Relationship Specialty Start Date End Date Luis Velazquez MD [address] [place] [address] PCP - Devoted 10/24/22 Luis Velazquez MD [address] [facility] [place] [address] PCP - General Internal Medicine 03/28/23 Technical Spec Relationship Specialty Start Date End Date Luis Velazquez MD [address] [place] [address] PCP - Devoted 10/24/22 Luis Velazquez MD [address] [facility] [place] [address] PCP - General Internal Medicine 03/28/23 Technical Spec Relationship Specialty Start Date End Date Luis Velazquez MD [address] [place] [address] PCP - Devoted 10/24/22 Luis Velazquez MD [address] [facility] [address] [place] [address] PCP - General Internal Medicine 03/28/23 Technical Spec Relationship Specialty Start Date End Date Luis Velazquez MD [address] [facility] [place] [address] PCP - Devoted 10/24/22 Luis Velazquez MD [address] [place] [address] PCP - General Internal Medicine 03/28/23 Technical Spec Relationship Specialty Start Date End Date Luis Velazquez MD [address], [address] [place] [address] PCP - General Internal Medicine 10/27/17 Technical Spec Relationship Specialty Start Date End Date Luis Velazquez MD [address] [facility] [address] [place] [address] PCP - General Internal Medicine 10/27/17 FOR RECORDS PERTAINING TO PATIENTS WHO ARE [...] BE BASED ON THE PRIMARY CLINICAL RECORDS. [facility] [employer] [facility]. provides no warranty or guarantee of the accuracy or completeness of information in this document.
--- NOTE | 2024-12-06 14:17 | VEINCLINIC_ITS ---
Varicose Veins Patient in today for follow up ultrasound of right lower extremity following EVLT of right leg peforators completed on 11/22/24. Alex Alvarado MD personally performed the services described in this documentation, as scribed by Negin Cline RDMS in my presence and it is both accurate and complete. Negin Alvarado RDMS, am scribing for, and in the presence of, Dr. Alex Villegas and in the presence of the patient. thigh: bilateral, knee: bilateral, calf: bilateral, ankle: bilateral and vasques: bilateral aching, cramping and sharp 10 7 years Worsened in recent months: Yes standing and sitting analgesics, elevating extremities and compression stockings Reports heaviness, limb pain, edema, leg edema and other History of lower extremity trauma: Yes Superficial thrombophlebitis: Yes Family history of varicose veins: yes Has patient had previous lower extremity venous surgery: No Patient has previously received the following treatment(s) for lower extremity varicose veins: Reports none Does patient have a history of : not applicable Does patient intend to have future pregnancies: not applicable Has patient had lower extremity venous scan with relux testing: Yes Support hose used: Yes Problems walking or doing physical activity: Yes How does it affect you: Hurts the worst at night and in the morning Do you walk much: Yes Do you stand much: Yes Review of Systems ROS Narrative Alex Alvarado MD personally performed the services described in this documentation, as scribed by Negin Cline RDMS in my presence and it is both accurate and complete. Negin Alvarado RDMS, am scribing for, and in the presence of, Dr. Alex Villegas and in the presence of the patient. Status of ROS 10 or more systems reviewed and unremark able except as noted in history and below Cardiovascular Reports: edema and swelling of feet/ankles Musculoskeletal Reports: extremity pain, extremity swelling, joint pain, joint swelling and muscle cramps Integumentary/Breast Reports: skin pain, skin tenderness, skin swelling and sores [facility] Medical History (Updated 09/18/24 @ 07:34 by Tricia Agarwal) Phlebitis and thrombophlebitis of superficial vessels of left lower extremity ?I80.02 - Phlebitis and thrombophlebitis of superficial vessels of left lower extremity (ICD-10) Phlebitis and thrombophlebitis of superficial vessels of right lower extremity ?I80.01 - Phlebitis and thrombophlebitis of superficial vessels of right lower extremity (ICD-10) Cellulitis ?L03.90 - Cellulitis, unspecified (ICD-10) FH: cholecystectomy ?Z83.79 - Family history of other diseases of the digestive system (ICD-10) Heart failure ?I50.9 - Heart failure, unspecified (ICD-10) Hypertension ?I10 - Essential (primary) hypertension (ICD-10) Diverticula of intestine ?K57.30 - Diverticulosis of large intestine without perforation or abscess without bleeding (ICD-10) Diabetes ?E11.9 - Type 2 diabetes mellitus without complications (ICD-10) CAD (coronary artery disease) ?I25.10 - Atherosclerotic heart disease of [place] coronary artery without angina pectoris (ICD-10) Atrial fibrillation ?I48.91 - Unspecified atrial fibrillation (ICD-10) Chronic GERD ?K21.9 - Gastro-esophageal reflux disease without esophagitis (ICD-10) Back pain ?M54.9 - Dorsalgia, unspecified (ICD-10) Irregular heart beat ?I49.9 - Cardiac arrhythmia, unspecified (ICD-10) Pain due to varicose veins of both lower extremities ?I83.813 - Varicose veins of bilateral lower extremities with pain (ICD-10) Deep vein blood clot of right lower extremity ?I82.401 - Acute embolism and thrombosis of unspecified deep veins of right lower extremity (ICD-10) Deep vein blood clot of left lower extremity ?I82.402 - Acute embolism and thrombosis of unspecified deep veins of left lower extremity (ICD-10) Surgical History (Updated 11/22/24 @ 13:19 by Negin Cline) Status post laser ablation of incompetent vein ?Z98.890 - Other specified postprocedural states (ICD-10) Status post laser ablation of incompetent vein ?Z98.890 - Other specified postprocedural states (ICD-10) Status post laser ablation of incompetent vein ?Z98.890 - Other specified postprocedural states (ICD-10) Status post laser ablation of incompetent vein ?Z98.890 - Other specified postprocedural states (ICD-10) Status post laser ablation of incompetent vein ?Z98.890 - Other specified postprocedural states (ICD-10) History of tonsillectomy ?Z90.89 - Acquired absence of other organs (ICD-10) H/O heart artery stent ?Z95.5 - Presence of coronary angioplasty implant and graft (ICD-10) History of knee replacement procedure of right knee ?Z96.651 - Presence of right artificial knee joint (ICD-10) Gastric bypass status for obesity ?Z98.84 - Bariatric surgery status (ICD-10) Family History (Updated 08/15/24 @ 09:24 by Mirna Richmond, RN) Father Family history of stroke Family history of myocardial infarction Family history of hypertension Father Family history of diabetes mellitus Mother Family history of diabetes mellitus Varicose veins of bilateral lower extremities with pain Brother Family history of cancer Sister Family history of cancer Social History (Updated 08/15/24 @ 09:25 by Mirna Richmond RN) Within the past year, how many standard drinks containing alcohol did you have on a typical day: 1 or 2 Within the past year, how often did you have six or more drinks on one occasion: never Total score: 0 Score interpretation: A score less than 4 is consistent with normal alcohol consumption. Smoking status: Former smoker Nicotine containing products detail: quit 15 years ago. Smoked 1 PPD for 35 years. Non-prescribed substance use: denies use Meds Home Medications and Allergies Home Medications ?Medication ?Instructions ?Recorded ?Confirmed ?Type amiodarone 100 mg tablet 100 mg PO DAILY 08/15/24 08/15/24 History apixaban 5 mg tablet (Eliquis) 5 mg PO BID 08/15/24 08/15/24 History atorvastatin 10 mg tablet 10 mg PO DAILY 08/15/24 08/15/24 History diosmin complex no.1 630 mg tablet 1 tab PO DAILY 08/15/24 08/15/24 History (Vasculera) fluoxetine 20 mg capsule 20 mg PO DAILY 08/15/24 08/15/24 History furosemide 40 mg tablet (Lasix) 40 mg PO DAILY 08/15/24 08/15/24 History gabapentin 300 mg capsule 900 mg PO BID 08/15/24 08/15/24 History metoprolol succinate 25 mg 25 mg PO DAILY 08/15/24 08/15/24 History tablet,extended release 24 hr omeprazole 40 mg capsule,delayed 40 mg PO DAILY 08/15/24 08/15/24 History release potassium chloride 20 mEq oral 20 meq PO DAILY 08/15/24 08/15/24 History packet (Klor-Con) sacubitril 24 mg-valsartan 26 mg 1 tab PO BID 08/15/24 08/15/24 History tablet (Entresto) tizanidine 4 mg capsule (Zanaflex) 4 mg PO TID PRN muscle spasticity 08/15/24 08/15/24 History zolpidem 10 mg tablet (Ambien) 08/15/24 History Allergies Allergy/AdvReac Type Severity Reaction Status Date / Time doxycycline Allergy Unknown Verified 08/15/24 10:16 Penicillins AdvReac Severe Vomiting Verified 08/15/24 09:26 morphine AdvReac Mild Gastrointestinal Verified 08/15/24 10:16 Upset Exam Narrative Exam Narrative: Alex Alvarado MD personally performed the services described in this documentation, as scribed by Negin Cline RDMS in my presence and it is both accurate and complete. Negin Alvarado RDMS, am scribing for, and in the presence of, Dr. Alex Villegas and in the presence of the patient. Constitutional Documenting provider has reviewed patient's vital signs: yes Common normals: oriented x3 Nutritional appearance: overweight Lymph Lymphatic: no lymphedema noted Cardio Peripheral pulses: posterior tibial pulses present and dorsalis pedis pulses present Extremity General: calf tenderness, edema and other findings Right lower extremity: lower leg Right lower leg: inspection and palpation Left lower extremity: lower leg Left lower leg: inspection and palpation Other: Heeled right proximal anterior lower leg wound. Left heeled mid-medial lower leg wound. 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 Multiple patent perforators in lower leg. Alex Alvarado MD personally performed the services described in this documentation, as scribed by Negin Cline RDMS in my presence and it is both accurate and complete. Negin Alvarado RDMS am scribing for, and in the presence of, Dr. Alex Villegas and in the presence of the patient. Assessment and Plan Assessment and Plan (1) Phlebitis and thrombophlebitis of superficial vessels of right lower extremity: Plan Plan is for patient to return for Varithena/microfoam of left leg and to reevaluate right leg perforators. IAlex MD personally performed the services described in this documentation, as scribed by Negin Cline RDMS in my presence and it is both accurate and complete. I, Negin Clnie RDMS, am scribing for, and in the presence of, Dr. Alex Villegas and in the presence of the patient.
--- NOTE | 2024-12-06 14:38 | W.VEIN ---
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
== END 2024-12-06 14:38 | disposition home or self-care (01) ==
PROVIDERS: PCP Radiology Diagnostic Radiology; Visit Provider Radiology Diagnostic Radiology
DX: I80.01 Phlebitis and thrombophlebitis of superficial vessels of right lower extremity (principal)
CPT/HCPCS: 93971; G0463

== ENCOUNTER 2025-03-04 09:28 | Emergency (ER) | payer OTHER, SELFPAY ==
[2025-03-04 09:46] VITALS: BP 110/77; PULSE 49; TEMP 36.5; O2SAT 97; BMI 27.5
--- NOTE | 2025-03-04 09:55 | XR_ITS ---
[facility] [place] [id number] Patient Name: INDIO FUENTES MRN: [id number] date: 1955 Sex: M Assigned Patient Location: ED.MAIN Current Patient Location: ED.MAIN Accession/Order Number: [id number] Exam Date: 03/04/2025 10:20 Report Date: 03/04/2025 10:23 At the request of: SHARONDA CHAVIRA MD Procedure: XR hand LT min 3V LEFT HAND - 3 views CLINICAL DATA: Dorsal swelling and erythema. Patient was bit 3 weeks ago. COMPARISON: None AP, lateral and oblique views were obtained. There is no evidence of fracture or dislocation. Prominent degenerative changes seen at the first carpal metacarpal joint with narrowing of the joint space and hypertrophy. There is additional mild degenerative change involving the remaining joints of the thumb. There is minor spurring at the head of the second metacarpal. There is dorsal soft tissue swelling. No radiopaque foreign bodies are seen. XR/XR hand LT min 3V IMPRESSION: DEGENERATIVE CHANGES, PREDOMINANTLY AT THE THUMB. NO ACUTE BONY FINDINGS. Impression dictated by: Juhi Morales M.D. 03/04/2025 10:23 AM Dictation Location: [place] [address] Electronically authenticated by: [id number] Y Date: 03/04/2025 10:23
--- NOTE | 2025-03-04 09:56 | ED.GENADUL1 ---
HPI HPI - General Adult General Chief complaint: Skin/Abscess/Foreign Body Stated complaint: INSECT BITE Time Seen by Provider: 03/04/25 09:33 History of Present Illness HPI narrative: 69-year-old male presents to the emergency department for some redness and swelling of the dorsum of his left hand. He believes he was bit by a spider or an ant about 3 weeks ago and he has been on numerous antibiotics including a cephalosporin and Levaquin. He was told by his doctor that he might need to have it cleaned out and is going to follow-up with his orthopedist. No drainage or fever. He is right-handed. Related Data Home Medications ?Medication ?Instructions ?Recorded ?Confirmed apixaban 5 mg tablet (Eliquis) 5 mg PO BID 08/15/24 03/04/25 atorvastatin 10 mg tablet 80 mg PO DAILY 08/15/24 03/04/25 diosmin complex no.1 630 mg tablet 1 tab PO DAILY 08/15/24 03/04/25 (Vasculera) fluoxetine 20 mg capsule 20 mg PO DAILY 08/15/24 03/04/25 furosemide 40 mg tablet (Lasix) 40 mg PO DAILY 08/15/24 03/04/25 gabapentin 300 mg capsule 900 mg PO BID 08/15/24 03/04/25 metoprolol succinate 25 mg 25 mg PO DAILY 08/15/24 03/04/25 tablet,extended release 24 hr omeprazole 40 mg capsule,delayed 40 mg PO DAILY 08/15/24 03/04/25 release potassium chloride 20 mEq oral 20 meq PO DAILY 08/15/24 03/04/25 packet (Klor-Con) sacubitril 24 mg-valsartan 26 mg 1 tab PO BID 08/15/24 03/04/25 tablet (Entresto) zolpidem 10 mg tablet (Ambien) 10 mg PO .QHS 08/15/24 03/04/25 cefdinir 300 mg capsule 300 mg PO BID 03/04/25 03/04/25 hydrocodone 5 mg-acetaminophen 325 1 tab PO .Q6HRS 03/04/25 03/04/25 mg tablet levofloxacin 250 mg tablet 250 mg PO DAILY 03/04/25 03/04/25 sulfamethoxazole 800 1 tab PO BID 03/04/25 03/04/25 mg-trimethoprim 160 mg tablet Allergies Allergy/AdvReac Type Severity Reaction Status Date / Time doxycycline Allergy Intermediate Hives Verified 03/04/25 09:45 Penicillins AdvReac Severe Vomiting Verified 08/15/24 09:26 morphine AdvReac Mild Gastrointestinal Verified 08/15/24 10:16 Upset Review of Systems ROS Narrative A ten point review of systems is negative except as noted above. [facility] Medical History (Updated 03/04/25 @ 11:26 by Homero Vanessa MD) Phlebitis and thrombophlebitis of superficial vessels of left lower extremity ?I80.02 - Phlebitis and thrombophlebitis of superficial vessels of left lower extremity (ICD-10) Phlebitis and thrombophlebitis of superficial vessels of right lower extremity ?I80.01 - Phlebitis and thrombophlebitis of superficial vessels of right lower extremity (ICD-10) Cellulitis ?L03.90 - Cellulitis, unspecified (ICD-10) FH: cholecystectomy ?Z83.79 - Family history of other diseases of the digestive system (ICD-10) Heart failure ?I50.9 - Heart failure, unspecified (ICD-10) Hypertension ?I10 - Essential (primary) hypertension (ICD-10) Diverticula of intestine ?K57.30 - Diverticulosis of large intestine without perforation or abscess without bleeding (ICD-10) Diabetes ?E11.9 - Type 2 diabetes mellitus without complications (ICD-10) CAD (coronary artery disease) ?I25.10 - Atherosclerotic heart disease of [place] coronary artery without angina pectoris (ICD-10) Atrial fibrillation ?I48.91 - Unspecified atrial fibrillation (ICD-10) Chronic GERD ?K21.9 - Gastro-esophageal reflux disease without esophagitis (ICD-10) Back pain ?M54.9 - Dorsalgia, unspecified (ICD-10) Irregular heart beat ?I49.9 - Cardiac arrhythmia, unspecified (ICD-10) Pain due to varicose veins of both lower extremities ?I83.813 - Varicose veins of bilateral lower extremities with pain (ICD-10) Deep vein blood clot of right lower extremity ?I82.401 - Acute embolism and thrombosis of unspecified deep veins of right lower extremity (ICD-10) Deep vein blood clot of left lower extremity ?I82.402 - Acute embolism and thrombosis of unspecified deep veins of left lower extremity (ICD-10) Surgical History (Updated 11/22/24 @ 13:19 by Negin Cline) Status post laser ablation of incompetent vein ?Z98.890 - Other specified postprocedural states (ICD-10) Status post laser ablation of incompetent vein ?Z98.890 - Other specified postprocedural states (ICD-10) Status post laser ablation of incompetent vein ?Z98.890 - Other specified postprocedural states (ICD-10) Status post laser ablation of incompetent vein ?Z98.890 - Other specified postprocedural states (ICD-10) Status post laser ablation of incompetent vein ?Z98.890 - Other specified postprocedural states (ICD-10) History of tonsillectomy ?Z90.89 - Acquired absence of other organs (ICD-10) H/O heart artery stent ?Z95.5 - Presence of coronary angioplasty implant and graft (ICD-10) History of knee replacement procedure of right knee ?Z96.651 - Presence of right artificial knee joint (ICD-10) Gastric bypass status for obesity ?Z98.84 - Bariatric surgery status (ICD-10) Family History (Updated 08/15/24 @ 09:24 by Mirna Richmond RN) Father Family history of stroke Family history of myocardial infarction Family history of hypertension Father Family history of diabetes mellitus Mother Family history of diabetes mellitus Varicose veins of bilateral lower extremities with pain Brother Family history of cancer Sister Family history of cancer Social History (Updated 08/15/24 @ 09:25 by Mirna Richmond RN) Within the past year, how many standard drinks containing alcohol did you have on a typical day: 1 or 2 Within the past year, how often did you have six or more drinks on one occasion: never Total score: 0 Score interpretation: A score less than 4 is consistent with normal alcohol consumption. Smoking status: Former smoker Nicotine containing products detail: quit 15 years ago. Smoked 1 PPD for 35 years. Non-prescribed substance use: denies use Little interest or pleasure in doing things: not at all Feeling down, depressed, or hopeless: not at all Exam Narrative Exam Narrative: Nurses note and vital signs reviewed and patient is not hypoxic. General: The patient appears well and in no apparent distress. Patient is resting comfortably on cart. Skin: Warm, dry, no pallor noted. There is no rash noted. Head: Normocephalic, atraumatic Eye: Normal conjunctiva, no drainage Ears, Nose, Mouth, and Throat: oral mucosa is moist. Nares patent. Cardiovascular: Regular Rate and Rhythm Respiratory: Patient is in no distress, no accessory muscle use, lungs are clear to auscultation, no wheezing, rales or rhonchi Back: non-tender GI: Soft and nontender Musculoskeletal: His left hand is examined. Fingers and wrist have full range of motion. On the dorsum he has some areas of erythema and dry skin. There appears to be some mild edema but there is no localized abscess or open area or drainage. Neurological: A&O, normal speech Psychiatric: Cooperative Constitutional Vital Signs, click to edit/add: Last Vital Signs Temp 97.7 F 03/04/25 09:46 Pulse 49 L 03/04/25 09:46 Resp 18 03/04/25 09:46 BP 110/77 03/04/25 09:46 Pulse Ox 97 03/04/25 09:46 O2 Del Method Room Air 03/04/25 09:46 Course Vital Signs Vital signs: Vital Signs Temperature 97.7 F 03/04/25 09:46 Pulse Rate 49 L 03/04/25 09:46 Respiratory Rate 18 03/04/25 09:46 Blood Pressure 110/77 03/04/25 09:46 Pulse Oximetry 97 03/04/25 09:46 Oxygen Delivery Method Room Air 03/04/25 09:46 Temperature 97.7 F 03/04/25 09:46 Pulse Rate 49 L 03/04/25 09:46 Respiratory Rate 18 03/04/25 09:46 Blood Pressure 110/77 03/04/25 09:46 Pulse Oximetry 97 03/04/25 09:46 Oxygen Delivery Method Room Air 03/04/25 09:46 Medical Decision Making MDM Narrative Medical decision making narrative: X-ray of the hand shows no acute findings and blood work is essentially normal. WBC is 6.2. He will be discharged home on Silvadene. He has been putting peroxide on it numerous times a day and I suspect that there may be some issues with that application. He will follow-up with his family doctor. I do not feel that yet another oral antibiotic will be of benefit to this patient. Differential Diagnosis Differential Diagnosis: Cellulitis, abscess, foreign body Lab Data Lab results reviewed: Yes I reviewed the patient's lab results Labs: Lab Results 03/04/25 Range/Units 10:20 WBC 6.2 (4.0-11.0) 10^3/uL RBC 4.71 (4.70-6.10) 10^6/uL Hgb 13.1 L (14.0-18.0) g/dL Hct 40.3 L (42.0-54.0) % MCV 85.6 (80.0-94.0) fL MCH 27.8 (25.9-34.0) pg MCHC 32.5 (29.9-35.2) g/dL RDW 15.4 H (11.0-15.0) % Plt Count 228 (150-450) 10^3/uL MPV 9.6 (9.5-13.5) fL Neut % (Auto) 54.4 (43.0-75.0) % Lymph % (Auto) 33.0 (20.5-60.0) % [place] % (Auto) 8.5 (1.7-12.0) % Eos % (Auto) 2.9 (0.9-7.0) % Baso % (Auto) 1.0 (0.2-2.0) % Neut # (Auto) 3.4 (1.4-6.5) 10^3/uL Lymph # (Auto) 2.1 (1.2-3.8) 10^3/uL [place] # (Auto) 0.5 (0.3-0.8) 10^3/uL Eos # (Auto) 0.2 (0.0-0.7) 10^3/uL Baso # (Auto) 0.1 (0.0-0.1) 10^3/uL Abs Immat Gran (auto) 0.01 (0.00-0.03) 10^3/uL Imm/Tot Granulo (auto) 0.2 (0.0-0.5) % Sodium 138 (136-145) mmol/L Potassium 4.5 (3.5-5.1) mmol/L Chloride 104 (98-107) mmol/L Carbon Dioxide 27.9 (21.0-32.0) mmol/L Anion Gap 10.6 BUN 22.0 H (7.0-18.0) mg/dL Creatinine 1.42 H (0.70-1.30) mg/dL Est GFR ( Amer) >60 (>=60 mL/min/1.73m^2) Est GFR (Non-Af Amer) 50 L (>=60 mL/min/1.73m^2) BUN/Creatinine Ratio 15.5 Glucose 94 (74-106) mg/dL Calcium 8.4 L (8.5-10.1) mg/dL Imaging Data Left hand x-ray: Radiologist's impression: ITS Impressions Hand X-Ray 03/04/25 09:55 IMPRESSION: DEGENERATIVE CHANGES, PREDOMINANTLY AT THE THUMB. NO ACUTE BONY FINDINGS. Impression dictated by: Juhi Morales M.D. 03/04/2025 10:23 AM Dictation Location: [place] [address] Electronically authenticated by: [id number] Y Date: 03/04/2025 10:23 Discharge Plan Discharge Chief Complaint: Skin/Abscess/Foreign Body Clinical Impression: Open wound of skin Patient Disposition: Home, Self-Care Time of Disposition Decision: 11:26 Condition: Good Mode of Transportation: Private Vehicle Prescriptions / Home Meds: No Action atorvastatin 10 mg tablet 80 mg PO DAILY Vasculera 630 mg tablet 1 tab PO DAILY Eliquis 5 mg tablet 5 mg PO BID fluoxetine 20 mg capsule 20 mg PO DAILY furosemide [Lasix] 40 mg tablet 40 mg PO DAILY gabapentin 300 mg capsule 900 mg PO BID metoprolol succinate 25 mg tablet extended release 24 hr 25 mg PO DAILY omeprazole 40 mg capsule,delayed release(DR/EC) 40 mg PO DAILY potassium chloride [Klor-Con] 20 mEq packet 20 meq PO DAILY Entresto 24-26 mg tablet 1 tab PO BID zolpidem [Ambien] 10 mg tablet 10 mg PO .QHS hydrocodone-acetaminophen 5-325 mg tablet 1 tab PO .Q6HRS levofloxacin 250 mg tablet 250 mg PO DAILY sulfamethoxazole-trimethoprim 800-160 mg tablet 1 tab PO BID cefdinir 300 mg capsule 300 mg PO BID Print Language: Italian Instructions: Wound Healing and Your Diet (ED) Referrals: LUIS HOFFMAN [Primary Care Provider, Internal Medicine] - 1 week
[2025-03-04] MEDS: CEFAZOLIN SODIUM/DEXTROSE,ISO 1 GM/50 ML PREMIX IV (10:24)
[2025-03-04 10:25] LABS: Basophils Absolute Auto 0.1 10^3/uL (0.0-0.1); Eosinophils Absolute Auto 0.2 10^3/uL (0.0-0.7); Eosinophils Percent Auto 2.9 % (0.9-7.0); Hematocrit 40.3 % (42.0-54.0); Hemoglobin 13.1 g/dL (14.0-18.0); Immature Granulocytes Abs Auto 0.01 10^3/uL (0.00-0.03); Immature Granulocytes Pct Auto 0.2 % (0.0-0.5); Lymphocytes Absolute Auto 2.1 10^3/uL (1.2-3.8); Mean Corpuscular HGB Conc 32.5 g/dL (29.9-35.2); Mean Corpuscular Hemoglobin 27.8 pg (25.9-34.0); Mean Corpuscular Volume 85.6 fL (80.0-94.0); Mean Platelet Volume 9.6 fL (9.5-13.5); Monocytes Absolute Auto 0.5 10^3/uL (0.3-0.8); Monocytes Percent Auto 8.5 % (1.7-12.0); Neutrophils Absolute Auto 3.4 10^3/uL (1.4-6.5); Neutrophils Percent Auto 54.4 % (43.0-75.0); Platelet Count 228 10^3/uL (150-450); Red Blood Count 4.71 10^6/uL (4.70-6.10); Red Cell Distribution Width 15.4 % (11.0-15.0); White Blood Count 6.2 10^3/uL (4.0-11.0)
[2025-03-04 10:35] LABS: Anion Gap 10.6; BUN Creatinine Ratio 15.5; Calcium 8.4 mg/dL (8.5-10.1); Carbon Dioxide 27.9 mmol/L (21.0-32.0); Chloride 104 mmol/L (98-107); Estimated GFR (African America >60 (>=60 mL/min/1.73m^2); Estimated GFR (Non-African Ame 50 (>=60 mL/min/1.73m^2); Glucose 94 mg/dL (74-106); Potassium 4.5 mmol/L (3.5-5.1); Sodium 138 mmol/L (136-145)
[2025-03-04] MEDS: SILVER SULFADIAZINE 1% CREAM 25 GM TUBE 1 APPLIC TOPICAL (11:48)
== END 2025-03-04 11:47 | disposition home or self-care (01) ==
PROVIDERS: Emergency Provider Emergency Medicine; PCP Internal Medicine
DX: S61.402A Unspecified open wound of left hand, initial encounter (principal); L53.9 Erythematous condition, unspecified; M25.442 Effusion, left hand; M19.042 Primary osteoarthritis, left hand
CPT/HCPCS: 36415; 73130; 80048; 85025; 96365; 99284; J0690

== ENCOUNTER 2025-08-22 08:09 | Outpatient (OUT) | payer OTHER, SELFPAY ==
--- OUTSIDE RECORDS SUMMARY | 2025-08-22 08:17 | XMS_ITS | CCD ---
Author Organization [facility] Care Team Providers Care Circulating Process Inspector Name Role Phone LUIS YANG Admitting Unavailable LUIS YANG Attending Unavailable DALTON, LUIS Referring Unavailable DALTON, LUIS Primary Care Unavailable DALTON, DR SMITH Admitting Unavailable DALTON, DR SMITH Attending Unavailable DALTON, DR SMITH Primary Care Unavailable DALTON, DR SMITH Consulting Unavailable WEST, DR INDIO Barron Consulting Unavailable DALTON, DR SMITH Admitting Unavailable DALTON, DR SMITH Attending Unavailable DALTON, DR SMITH Primary Care Unavailable DALTON, DR SMITH Consulting Unavailable HEMMER, DR JUHI Peterson Admitting Unavailable HEMMER, DR JUHI Peterson Attending Unavailable VELAZQUEZ, DR SMITH Primary Care Unavailable ZIEBER, DR THOMAS Cook Consulting Unavailable HEMMER, DR JUHI Peterson Consulting Unavailable DALTON, DR SMITH Primary Care Unavailable STUART, DR GUTIERREZ Cook Consulting Unavailable STUART, DR GUTIERREZ Cook Admitting Unavailable STUART, DR GUTIERREZ Cook Attending Unavailable FARIHA, GABBI Consulting Unavailable SYLWIA, KOFFI Consulting Unavailable MARYLOULALO MORALES Consulting Unavailable MICHAEL REINOSO Consulting Unavailab RENATO Mckeon Admitting Unavailable RENATO WAITE Attending Unavailable CARLOS WEISS Consulting Unavailable INDIO MCHUGH Consulting Unavailable HALIE GUADALUPE Consulting Unavailable Marina Cheng Attending Unavailab Marina Hutton Attending Unavailab Marina Hutton Attending UnavailMD Henok Stevens Attending Unavaila indu Cheng, Marina Attending Unavailab Luis Bobo MD Primary Care Provider [phone] CHAPO Velazquez Primary Care Provider MD Gordon Smith Admit Provider MD Gordon Smith Attending Provider STERLING Savage Other Provider Unavailable STERLING Vazquez Other Provider Unavailable STERLING Sanders Other Provider Unavailable Joseline RN Marta Other Provider Unavailable STERLING Thomas Other Provider Unavailable STERLING Carrillo Other Provider Unavailable MD Kimo Cary Other Provider MD Issac Dimas Other Provider Dials, MILITARY SOURCE OPERATIONS OFFICER Adeola M Other Provider DO Maurilio Murrell [...] Other Provider MD Oren Burnett Other Provider HENRIQUE Miller-Jake Thibodeaux Other Provider MD Gen Reich Other Provider MD Gamal Bone Other Provider MD Imelda Riddle Other Provider MD Matthias Pablo Other Provider DO Giselle Jaquez Other Provider MD Jak Ku Other Provider DO David Rossi Other Provider DO Moreno Roe Other Provider [phone] NAZANIN Fung Other Provider DO Timothy Vaughan Other Provider MD Jaime Trivedi M Other Provider [phone] NAZANIN Caballero Other Provider STERLING Hunt Other Provider Unavailable LISA Ford Fany Other Provider Unavailpete Mcgee LPN Jenae Other Provider Unavailable MD Fer Mayfield Other Provider [phone] RED Berry Other Provider MD Norma Hurd F Other Provider [phone] MD Chirag Hatch Other Provider NAZANIN Hines Attending Provider LUIS VELAZQUEZ Primary Care Unavailable LUIS VELAZQUEZ Primary Care Unavailable ABELARDO BABIN Admitting Unavailable ABELARDO BABIN Attending Unavailable LUIS VELAZQUEZ Primary Care Unavailable ABELARDO BABIN Admitting Unavailable ABELARDO BABIN Attending Unavailable LUIS VELAZQUEZ Primary Care Unavailable LACI, DEBBIEULABEDIN Consulting Unavailable LESLIE, LORIE Consulting Unavailable BESSY, MAXIMILIANO L Consulting Unavailable ALI, NASSER Y Consulting Unavailable LOUKA, GLEN Consulting Unavailable LUIS VELAZQUEZ Primary Care Unavailable Luis Velazquez MD Unavailable Luis Velazquez MD Primary Care Provider [phone] LUIS VELAZQUEZ Primary Care Unavailable LAUREN MARTIN Attending Unavailable LAUREN MARTIN Attending Unavailable LAUREN MARTIN Referring Unavailable LUIS VELAZQUEZ Primary Care Unavailable HELEN GONZALEZ Attending Unavailable SERINA GONZALEZATUNDE Referring Unavailable LUIS VELAZQUEZ Primary Care Unavailable Luis Velazquez MD Primary Care Provider Sallie KATZ, Hallie Unavailable Chandler INSURANCE ACCOUNT REPRESENTATIVE, Audrey Unavailable Unavailable WILLIS, DENISE K Attending Unavailable WILLIS, DENISE K Referring Unavailable VELAZQUEZ, LUIS B Primary Care Unavailable WILLIS, DENISE K Referring Unavailable VELAZQUEZ, LUIS B Primary Care Unavailable WILLIS, DENISE K Admitting Unavailable WILLIS, DENISE K Attending Unavailable WILLIS, DENISE K Referring Unavailable VELAZQUEZ, LUIS B Primary Care Unavailable WILDWOOD, [facility] nsulting Unavailable Chandler INSURANCE ACCOUNT REPRESENTATIVE, Audrey Unavailable DALTON, LUIS B Referring Unavailable VELAZQUEZ, LUIS B Primary Care Unavailable NORMA HURD Attending Unavailable VELAZQUEZ, LUIS B Referring Unavailable VELAZQUEZ, LUIS B Primary Care Unavailable WILLIS, DENISE K Attending Unavailable VELAZQUEZ, LUIS B Referring Unavailable VELAZQUEZ, LUIS B Primary Care Unavailable WILLIS, DENISE K Referring Unavailable VELAZQUEZ, LUIS B Primary Care Unavailable WILLIS, DENISE K Attending Unavailable VELAZQUEZ, LUIS B Referring Unavailable VELAZQUEZ, LUIS B Primary Care Unavailable WILLIS, DENISE K Referring Unavailable VELAZQUEZ, LUIS B Primary Care Unavailable WILLIS, DENISE K Attending Unavailable VELAZQUEZ, LUIS B Referring Unavailable VELAZQUEZ, LUIS B Primary Care Unavailable WILLIS, DENISE K Referring Unavailable VELAZQUEZ, LUIS B Primary Care Unavailable VELAZQUEZ, LUIS B Attending Unavailable HEMMER, JUHI Peterson Attending Unavailable RUSHER, MORENO S Attending Unavailable RUSHER, MORENO S Attending Unavailable VELAZQUEZ, LUIS B Attending Unavailable RUSHER, MORENO S Attending Unavailable HEMMER, JUHI Peterson Attending Unavailable HEMMER, JUHI Peterson Attending Unavailable VELAZQUEZ, LUIS B Attending Unavailable HEMMER, JUHI Peterson Attending Unavailable HEMMER, JUHI Peterson Attending Unavailable HEMMER, JUHI Peterson Referring Unavailable HEMMER, JUHI Peterson Attending Unavailable KELBLEY, MARGO Attending Unavailable VELAZQUEZ, LUIS B Referring Unavailable DANIEL, EVA García Referring Unavailable VELAZQUEZ, LUIS B Referring Unavailable BLACKSTONGERARDO Attending Unavailable KELBLEY, MARGO Attending Unavailable VELAZQUEZ, LUIS B Referring Unavailable DANIEL, EVA García Attending Unavailable ALEXANDRE REINOSO Attending Unavailable HEMMER, JUHI Peterson Attending Unavailable RUSHER, MORENO Ibrahim Attending Unavailable Indio Kirk V. Primary Care Unavailable Indio Kirk V. Admitting Unavailable Indio Kirk V. Attending Unavailable Indio Kirk V. Attending Unavailable ArnoldoShelly ramirez Referring Unavailable Indio Kirk V. Primary Care Unavailable Indio Kirk V. Admitting Unavailable Thomas Colbert Admitting Unavailable Thomas Colbert Attending Unavailable Indio Kirk V. Primary Care Unavailable Indio Kirk V. Primary Care Unavailable Indio Kirk V. Admitting Unavailable Indio Kirk V. Attending Unavailable Luis Velazquez II Primary Care Provider Shelly Mclaughlin APRN Attending Provider Shelly Mclaughlin Attending Unavailable Shelly Mclaughlin Admitting Unavailable Luis Velazquez Primary Care Unavailable FAB CORTEZ Attending Unavailable FAB CORTEZ Attending Unavailable IVONNE PRESSLEY Referring Unavailable WENDIE, IVONNE Referring Unavailable IVONNE PRESSLEY Admitting Unavailable IVONNE PRESSLEY Attending Unavailable IVONNE PRESSLEY Referring Unavailable WENDIE, IVONNE Attending Unavailable FAB CORTEZ Attending Unavailable Hallie Rizo RN Unavailable [phone] Audrey Chandler LPN Unavailable Allergies Allergy ClassificationReported Allergen(s)Allergy TypeDate of OnsetReaction(s) Facility (9 sources)Doxycycline; Translations: [DOXYCYCLINE]Drug Uraaxrz82-98-8036Ccskmoi [facility] (8 sources)Morphine; Translations: [MORPHINE]Drug Ofxairf44-73-7452Hvt [facility] (10 sources)Penicillins; Translations: [PENICILLINS]Drug allergy (disorder) 83-01-7889FaoyzCpgThe [facility] (20 sources)DoxycyclineDrug Rctbvyo38-48-9417Rjjucwm, Nausea, Other (See Comments)[facility] (5 sources)PenicillinsPropensity to adverse reactions to apxi10-27-7062Rzxq, HivesB[facility] Work Phone: (20 sources)MorphineDrug Yoorhbp05-45-9066CX intolerance, Nausea And Vomiting [facility] (20 sources)PenicillinsDrug Jssucystwua48-03-2969Cmnmp, Other, Rash, UnknownNOMS Healthcare (7 sources)PenicillinsPropensity to adverse reactions to dkzt92-53-4756Pvavy [facility] (1 source)Penicillin; Translations: [penicillin][facility] (1 source)DoxycyclineDrug Uvvjuqz93-28-0773HgvxhqasfT[facility] (1 source)PenicillinsDrug allergy (disorder)00-63-4159JtgdgmdlzT[facility] Medications Current Medications MedicationDrug Class(es)DatesSig (Normalized)Sig (Original)acetaminophen 325 mg oral tablet (5 sources)Start: 11-09-2022 End: 10-05-4136pxqgwhzdupwpy (TYLENOL) tablet 650 mgStart: 49-34-3365igjr 1 tablet by mouth every four hours as needed for painAcetaminophen 500 mg Tablet Active 500 MG PO Q4H as needed for Pain 100 September 29, 2022 1:00am Complies with drug therapyStart: 09-11-2022 End: 59-59-9315xwlb 2 tablets by mouth three times dailyAcetaminophen 500 mg Tablet Discontinued 1000 MG PO Three times daily September 11, 2022 1:00am Dec er 2021 2:59pmStart: 09-11-2022 End: 08-26-7002wgcz 1000 mg by mouth three times dailyAcetaminophen Discontinued 1000 MG PO Three times daily September 11, 2022 12:00am September 29, 2022 1:59pmacetaminophen 325 mg / HYDROcodone bitartrate 5 mg oral tablet (20 sources)Opioid AgonistStart: 06-25-2025 End: 80-19-1633mvfr 1 tablet by mouth every six hours for painHYDROcodone- acetaminophen (Colby) 5-325 MG tablet Indications: Open wound of left lower leg, subsequent encounter Take 1 tablet by mouth every 6 (six) hours if needed for severe pain for up to 5 days20 tablet 07/12/2025 07/17/2025 ActiveStart: 01-21-2025 End: 13-94-6610pxyx 1 tablet by mouth every six hours for painHYDROcodone- acetaminophen (Colby) 5-325 MG tablet Indications: Rotator cuff impingement syndrome ofleft shoulder , Primary osteoarthritis of left shoulder Take 1 tablet by mouth every 6 (six) hours if needed for severe pain for up to 15 days 60 tablet 04/05/2025 04/20/2025 ActiveStart: 08-22-2024 End: 50-71-5225htqg 1 tablet by mouth every six hours for painHYDROcodone- acetaminophen (Colby) 7.5-325 MG tablet Indications: Lumbar spondylosis Take 1 tablet by mouth every 6 (six) hours if needed for severe pain for up to 15 days 60 tablet 09/04/2024 09/19/2024 ActiveStart: 07-30-2024 End: 81-81-8201sqjv 1 tablet by mouth every six hours for painHYDROcodone- acetaminophen (Colby) 7.5-325 MG tablet Indications: Lumbar spondylosis Take 1 tablet by mouth every 6 (six) hours if needed for severe pain for up to 15 days 60 tablet 07/30/2024 08/14/2024 ActiveStart: 07-12-2024 End: 10-50-6995kijk 1 tablet by mouth every six hours for painHYDROcodone- acetaminophen (Colby) 5-325 MG tablet Indications: Back muscle spasm , Lumbar paraspinal muscle spasm , Acute myofascial strain of lumbar region, subsequent encounter Take 1 tablet by mouth every 6 (six) hours if needed for severe pain for up to 15 days 60 tablet 07/12/2024 07/30/2024 Discontinued (Ineffective) acetaminophen 325 mg / oxyCODONE hydrochloride 5 mg oral tablet (16 sources)Opioid AgonistStart: 43-70-5687hpwWZYEEM-acetaminophen (PERCOCET) 5- 325 mg per tablet Indications: Primary osteoarthritis of left shoulder , Post- operative pain Take 1-2 tablets by mouth 2 (two) times a day as needed for pain. MaxDaily Amount: 4 tablets 14 tablet 05/14/2025 ActiveStart: 05-02-2025 oxyCODONE-acetaminophen (PERCOCET) 5-325 mg per tablet Indications: Primary osteoarthritis of left shoulder , Post-operative pain Take 1-2 tablets by mouth every 8 (eight) hours as needed for pain. Max Daily Amount: 6 tablets 21 tablet 05/02/2025 ActiveStart: 43-47-0634zdxXICHWF-acetaminophen (PERCOCET) 5-325 mg per tablet Indications: Post-operative pain Take 1 tablet by mouth every 6 (six) hours as needed for pain. Max Daily Amount: 4 tablets 28 tablet 04/24/2025 ActiveStart: 11-09-2022 End: 28-22-1343kibFZCVBF-acetaminophen (PERCOCET) 5-325 MG per tablet 1 tablet Start: 11-03-2022 End: 38-46-8180yjmIDAQGF-acetaminophen (PERCOCET) 5-325 MG per tablet Indications: Post-op pain Take 1 tablet by mouth every 6 hours as needed for Pain for up to 5 days. Intended supply: 7 days. Take lowest dose possible to manage pain Max Daily Amount: 4 tablets 20 tablet 0 11/09/2022 11/14/2022 Active amiodarone hydrochloride 100 mg oral tablet (20 sources)AntiarrhythmicStart: 04-30-2024 End: 42-42-9604vdho 1 tablet by mouth in the morningamiodarone (PACERONE) 100 mg tablet Indications: cardioversion of atrial fibrillation Take 1 tablet(100 mg total) by mouth in the morning. Indications: atrial fibrillation electrically shocked to normal rhythm. 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 180 tablet 3 11/16/2023 11/15/2024 ActiveStart: 09-29-2022 End: 00-61-5634Voimtqo 5 MG tablet 05/09/2024 Activeaspirin 81 mg chewable tablet (11 sources)Platelet Aggregation Inhibitor, Nonsteroidal Anti-inflammatory Drug Start: 11-06-2018 End: 49-50-1038wovf 1 tablet by mouth once dailyAspirin (Children's Aspirin) 81 mg Tablet,Chewable Active 81 MG PO Daily September 29, 2022 1:00am Complies with drug therapytake 1 tablet by mouth in the morningaspirin 81 mg Take 1 tablet (81 mg total) by mouth in the morning. 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 6 tablet 0 12/05/2023 12/09/2023 Activebacillus coagulans [id number] unt / inulin 250 mg oral capsule (5 sources)Start: 03-01-2025 End: 12-67-7057zsfx 1 capsule by mouth in the morningBacillus Coagulans-Inulin (Probiotic) 1-250 BILLION-MG capsule Indications: Cellulitis of left handTake 1 capsule by mouth in the morning and 1 capsule before bedtime. Do all this for 14 days. 28 capsule 03/01/2025 03/15/2025 Activebenzonatate 200 mg oral capsule (4 sources)Non-narcotic AntitussiveStart: 12-05-2023 End: 38-08-6107cbyx 1 capsule by mouth three times daily as needed for cough benzonatate (Tessalon) 200 MG capsule Indications: Chronic obstructive pulmonary disease with acuteexacerbation (CMS/HCC) Take 1 capsule (200 mg) by mouth 3 (three) times a day as needed for cough for up to 7 days Do not crush or chew. 21 capsule 0 12/05/2023 12/12/2023 Activecarvedilol 12.5 mg oral tablet (20 sources)alpha-Adrenergic Kaleigh, beta-Adrenergic BlockerStart: 10-20-2022 take 0.5 tablet by mouth twice daily at mealtimecarvedilol (COREG) 12.5 MG tablet Take 0.5 tablets by mouth 2 times daily (with meals) 60 tablet 3 1 12/21/2021 ActiveStart: 77-02-5948dbel 1 tablet by mouth twice dailyCarvedilol 12.5 mg Tablet Active 12.5 MG PO Twice daily 60 30 September 29, 2022 1:00am Complies with drug therapyStart: 11-09-2018 End: 55-03-4339dfxv 1 tablet by mouth twice daily at mealtimeCarvedilol 25 mg Tablet Discontinued 25 MG PO Twice daily with meals 0 November 09, 2018 1:00am November 17, 2018 10:47amStart: 11-06-2018 End: 37-74-9401Xrutvjtyzr 25 mg tablet Discontinued 12.5 MG PO Twice daily November 06, 2018 1:00am September 2:59pmStart: 11-06-2018 End: 07-52-3824nzkw 12.5 mg by mouth twice dailyCarvedilol Discontinued 12.5 MG PO Twice daily November 06, 2018 12:00am September 29, 2022 1:59pmStart: 08-31-2018 End: 81-24-7248msox 1 tablet by mouth twice dailyCarvedilol 25 mg Tablet Discontinued 25 MG PO Twice daily August 31, 2018 1:00am November 06, 2018 3:36pmcefdinir 300 mg oral capsule (3 sources)Cephalosporin AntibacterialStart: 02-26-2025 End: 88-61-5415hzpc 1 capsule by mouth in the morningcefdinir (Omnicef) 300 MG capsule Indications: Bug bite of hand, infected, left, initial encounter Take 1 capsule (300 mg) by mouth in the morning and 1 capsule (300 mg) before bedtime. Do all this for 7 days. 14 capsule 02/26/2025 03/01/2025 Discontinuedcefuroxime 250 mg oral tablet (7 sources)Cephalosporin AntibacterialStart: 74-56-3338nzbv 1 tablet by mouth twice dailyceFUROxime (CEFTIN) 250 mg tablet Take 1 tablet (250 mg total) by mouth 2 (two) times a day. 20 tablet 10/20/2020 Activecetirizine hydrochloride 10 mg oral tablet (1 source)Histamine-1 Receptor AntagonistStart: 10-20-2022 End: 16-77-1564fawr 1 tablet by mouth once dailycetirizine (ZYRTEC) 10 MG tablet Take 1 tablet by mouth daily 30 tablet 0 10/20/2022 11/19/2022 Active cholecalciferol 0.025 mg oral tablet (4 sources)Vitamin DStart: 84-49-3285veyt 1 tablet by mouth once daily Cholecalciferol (Vitamin D3) 25 mcg (1,000 unit) Tablet Active 50 MCG PO Daily 60 September 29, 2022 1:00am Complies with drug therapyStart: 09-11-2022 End: 43-06-4174nbso 1 tablet by mouth once dailyCholecalciferol (Vitamin D3) 50 mcg (2,000 unit) Tablet Discontinued 2000 UNIT PO Daily September 11, 2022 1:00am September 29, 2022 2:59pmdapagliflozin 10 mg oral tablet (20 sources)Sodium-Glucose Cotransporter 2 InhibitorStart: 03-08-2024 End: 53-99-9623axlj 10 mg by mouth in the morningdapagliflozin (Farxiga) 10 MG Take 10 mg by mouth in the morning. 03/08/2024 Activetake 1 tablet by mouth in the morningdapagliflozin propanediol (FARXIGA) 5 mg tablet Take 1 tablet (5 mg total) by mouth in the morning.ActiveDietary Management Product (Vasculera) tablet (20 sources)Start: 86-67-0374aids 1 tablet by mouth in the morningDietary Management Product (Vasculera) tablet Take 1 tablet by mouth in the morning. 11/08/2023 ActiveStart: 39-67-4859wkys 1 tablet by mouth in the morningDietary Management Product (Vasculera) tablet Take 1 tablet by mouth in the morning. 0 11/08/2023 Ffrmgj43 hr dilTIAZem hydrochloride 180 mg extended release oral capsule (11 sources)Calcium Channel BlockerStart: 80-84-4010hvse 1 capsule by mouth every twenty-four hours in the morningdilTIAZem CD (CARDIZEM CD) 180 mg 24 hr capsule Take 1 capsule (180 mg total) by mouth in the morning. 28 capsule 01/28/2024 Activediosmin complex no.1 (VASCULERA) 630 mg tablet (6 sources)Start: 92-99-4441fzil 1 tablet by mouth in the morningdiosmin complex no.1 (VASCULERA) 630 mg tablet Indications: Venous insufficiency of both lower extremities Take 1 tablet by mouth in the morning. 90 tablet 1 11/08/2023 Active diphenhydrAMINE hydrochloride 25 mg oral tablet (1 source)Histamine-1 Receptor AntagonistStart: 10-20-2022 End: 84-95-7237xikf 1 tablet by mouth every six hours as neededdiphenhydrAMINE (BENADRYL) 25 MG tablet Take 1 tablet by mouth every 6 hours as needed for Itching 10 tablet 0 10/20/2022 11/19/2022 ActiveDULoxetine 30 mg delayed release oral capsule (20 sources)Serotonin and Norepinephrine Reuptake InhibitorStart: 01-01-2025 End: 58-25-6438obtn 1 capsule by mouth in the morningDULoxetine (Cymbalta) [address] capsule Take 30 mg by mouth in the morning. 01/01/2025 Activefamotidine 20 mg oral tablet (20 sources)Histamine-2 Receptor AntagonistStart: 72-08-3081uuip 1 tablet by mouth in the morningfamotidine (Pepcid) 20 MG tablet Take 20 mg by mouth in the morning and 20 mg in the evening. 11/09/2024 Active2 ml fentaNYL 0.05 mg/ml injection (1 source)Opioid AgonistStart: 75-65-2166mzlfqEDZ (SUBLIMAZE) injection 25 mcg fludrocortisone acetate 0.1 mg oral tablet (20 sources)Start: 06-15-2023 End: 74-96-8379ojcf 1 tablet by mouth at bedtimefludrocortisone (Florinef) 0.1 MG tablet Indications: Dizziness , Orthostatic hypotension TAKE 1 TABLET (0.1 MG) BY MOUTH AT BEDTIME 90 tablet 3 03/23/2025 03/23/2026 ActiveFLUoxetine 10 mg oral capsule (20 sources)Serotonin Reuptake InhibitorStart: 01-01-2025 End: 05-70-4392qnud 1 capsule by mouth once dailyFLUoxetine (PROzac) 10 MG capsule Indications: Current moderate episode of major depressive disorder without prior episode (HCC) Take 1 capsule (10 mg) by mouth Daily for 7 days 7 capsule 01/01/2025 ActiveStart: 09-11-2022 End: 05-29-7623cgcw 1 capsule by mouth once dailyFluoxetine 20 mg Capsule Discontinued 20 MG PO Daily September 29, 2022 1:00am June 2:47pmfurosemide 20 mg oral tablet (20 sources)Loop DiureticStart: 71-06-6804ryyx 2 tablets by mouth once daily furosemide (Lasix) 20 MG tablet Indications: Lymphedema Take 2 tablets (40 mg) by mouth Daily 03/09/2024 ActiveStart: 36-27-9065qkys 1 tablet by mouth once dailyfurosemide (LASIX) 20 mg tablet Indications: edema Take 1 tablet (20 mg total) by mouth daily Indications: visible water retention. 01/27/2024 Active Start: 54-76-0417cqtl 1 tablet by mouth every twenty-four hours as needed furosemide (Lasix) 20 MG tablet Take 20 mg by mouth Daily as needed (edema). 0 07/08/2023 ActiveStart: 09-11-2022 End: 12-13-7877uhcm 1 tablet by mouth twice dailyFurosemide 20 mg tablet Discontinued 20 MG PO Twice daily September 11, 2022 2:46am September 29, 2022 2:59pmStart: 11-09-2018 End: 99-75-0570gjiy 1 tablet by mouth once dailyFurosemide 20 mg tablet Discontinued 20 MG PO Daily 60 November 09, 2018 1:00am September 11, 2022 2:46amStart: 11-07-2018 End: 66-50-7106Awzwlcizpj 40 mg tablet Discontinued 60 MG PO Twice daily November 07, 2018 1:00am November 07, 2018 10:18amStart: 11-07-2018 End: 07-03-9244eaua 60 mg by mouth twice dailyFurosemide Discontinued 60 MG PO Twice daily November 07, 2018 12:00am November 07, 2018 9:18amStart: 06-16-2018 End: 63-29-1310ulhn 1 tablet by mouth twice dailyFurosemide 40 mg Tablet Discontinued 40 MG PO Twice daily June 16, 2018 12:00am November 07, 2018 9:59amgabapentin 300 mg oral capsule (20 sources)Anti-epileptic AgentStart: 05-09-2023 End: 97-00-4342ikmu 3 capsules by mouth in the morning, then take 3 capsules by mouth in the evening, then take 3 capsules by mouth at bedtime, then take 3 capsules by mouth at bedtimegabapentin (Neurontin) 300 MG capsule Indications: Neuropathy due to type 2 diabetes mellitus (HCC)Take 3 capsules (900 mg) by mouth in the morning and 3 capsules (900 mg) in the evening and 3 capsules (900 mg) before bedtime. Take 3 capsules by mouth in the morning , in the evening and before bedtime. 270 capsule 5 03/07/2025 ActiveStart: 09-11-2022 End: 94-38-7182ncxr 3 capsules by mouth every eight hoursGabapentin 300 mg Capsule Active 900 MG PO Every 8 hours 270 September 29, 2022 1:00am Complies with drug therapyStart: 09-11-2022 End: 07-39-7473eqdy 900 mg by mouth every eight hoursGabapentin Active 900 MG PO Every 8 hours 270 September 29, 2022 12:00amStart: 11-09-2018 End: 51-78-4237tece 2 capsules by mouth three times dailyGabapentin 300 mg Capsule Discontinued 600 MG PO Three times daily 0 November 09, 2018 8:09pm September 11, 2022 2:46amStart: 11-09-2018 End: 75-23-5536eflu 600 mg by mouth three times dailyGabapentin Discontinued 600 MG PO Three times daily 0 November 09, 2018 7:09pm September 1121:46am Start: 06-16-2018 End: 06-66-3032swqz 3 capsules by mouth three times dailyGabapentin 300 mg Capsule Discontinued 900 MG PO Three times daily June 16, 2018 12:00am November 09, 2018 8:09pmStart: 06-16-2018 End: 87-79-1689veox 900 mg by mouth three times dailyGabapentin Discontinued 900 MG PO Three times daily June 15, 2018 11:00pm November 09, 2018 7:09pm Lanolin Rbaxwro-Yo-L.Pet-Darwin (Minerin Creme) Cream (2 sources)Start: 77-40-1247Oopmgqd Bfjwcce-Fz-J.Pet-Darwin (Minerin Creme) Cream Active 1 APPLIC TOPICAL Twice daily 2021 1:00am Complies with drug therapyStart: 14-85-3826Ieedkqv Rkdswoi-Iv-P.Pet-Darwin (Minerin Creme) Cream Active 1 APPLIC TOPICAL Twice daily 2021 12:00ammeloxicam 15 mg oral tablet (20 sources)Nonsteroidal Anti-inflammatory DrugStart: 09-03-2024 End: 94-62-3631ktnj 1 tablet by mouth in the morningmeloxicam (MOBIC) 15 mg tablet Indications: osteoarthritis Take 1 tablet (15 mg total) by mouth in the morning. Indications: joint damage causing pain and loss of function. 09/03/2024 ActiveStart: 11-07-2018 End: 46-42-5772fych 1 tablet by mouth once dailyMeloxicam 15 mg Tablet Discontinued 15 MG PO Daily November 07, 2018 1:00am November 09, 2018 8:01pm methocarbamol 750 mg oral tablet (3 sources)Muscle RelaxantStart: 65-75-8266geze 1 tablet by mouth three times daily as needed for muscle spasmsmethocarbamol (ROBAXIN) 750 MG tablet Take 1 tablet by mouth 3 times daily as needed (muscle spasms) 30 tablet 0 10/07/2022 ActiveStart: 09-11-2022 End: 01-99-9671wqho 1 tablet by mouth every six hoursMethocarbamol 750 mg Tablet Discontinued 750 MG PO Q6H September 11, 2022 1:00am September 29, 2022 2:59pm x 10 days24 hr metoprolol succinate 25 mg extended release oral tablet (20 sources)beta-Adrenergic BlockerStart: 41-97-3584vjfm 1 tablet by mouth once dailymetoprolol succinate XL (Toprol-XL) 25 MG 24 hr tablet Indications: Essential hypertension TAKE 1 TABLET BY MOUTH DAILY 30 tablet 11 10/03/2024 ActiveStart: 03-08-2024 End: 80-90-3907yowf 1 tablet by mouth every twenty-four hours in the morning metoprolol succinate XL (TOPROL XL) 25 mg 24 hr tablet Indications: hypertension Take 1 tablet (25 mg total) by mouth in the morning. Indications: high blood pressure. 03/08/2024 ActiveStart: 06-16-2018 End: 43-02-1387sdow 1 tablet by mouth twice dailyMetoprolol Tartrate 25 mg Tablet Discontinued 25 MG PO Twice daily June 16, 2018 12:00am November 06, 2018 7:32pmomeprazole 40 mg delayed release oral capsule (20 sources)Proton Pump InhibitorStart: 28-66-6718pkgkrhddil (PriLOSEC) [address] capsule Indications: Gastro-esophageal reflux disease without esophagitis TAKE 1 CAPSULE BY MOUTH EVERY DAY 30 MINUTES BEFORE MORNING MEAL 100 capsule 3 11/09/2024 ActiveStart: 44-34-6750emccohosas (PriLOSEC) [address] capsule Indications: Gastro-esophageal reflux disease without esophagitis TAKE 1 CAPSULE BY MOUTH EVERY DAY 30 MINUTES BEFORE MORNING MEAL FOR 90 DAYS 100 capsule 3 11/14/2023 ActiveStart: 75-43-3681sube 2 capsules by mouth once dailyOmeprazole 20 mg Capsule,Delayed Release(Dr/Ec) Active 40 MG PO Daily 60 September 29, 2022 1:00am Complies with drug therapyStart: 33-19-5114gzpx 40 mg by mouth once dailyOmeprazole Active 40 MG PO Daily 60 September 29, 2022 12:00amStart: 11-06-2018 End: 96-07-5182dofc 1 capsule by mouth once dailyOmeprazole 40 mg capsule,delayed release(DR/EC) Discontinued 40 MG PO Daily November 06, 2018 1:00am September 29, 2022 2:59pmoxyCODONE hydrochloride 5 mg oral tablet (4 sources)Opioid AgonistStart: 09-11-2022 End: 35-04-1367erdg 1 tablet by mouth every four hours as needed for pain Oxycodone 5 mg Tablet Active 5 MG PO Q4H as needed for Pain 12 05September 29, 2022 Complies with drug therapymicroencapsulated potassium chloride 10 meq extended release oral tablet (20 sources)Start: 02-15-2024 End: 65-37-9677gpsj 1 tablet by mouth in the morningpotassium chloride CR (Klor- Con M10) 10 MEQ ER tablet Take 20 mEq by mouth in the morning and 20 mEq in the evening. 02/15/2024 02/14/2025 ActiveStart: 60-19-4926Wvwfcugkr Chloride (Klor- Con M20) 20 mEq Tablet,Er Particles/Crystals Active 20 MEQ PO Daily 30 30 D 2021 1:00am Complies with drug therapyStart: 09-11-2022 End: 84-79-7350vipu 1 tablet by mouth once dailyPotassium Chloride 20 mEq Tablet Extended Release Discontinued 20 MEQ PO Daily September 11, 2022 1:00am September 29, 2022 2:59pmtake 1 tablet by mouth in the morningpotassium chloride (K-TAB,KLOR-CON) 10 MEQ CR tablet Take 1 tablet (10 mEq total) by mouth in the morning and 1 tablet (10 mEq total) before bedtime. Activetake 1 tablet by mouth in the morningKLOR-CON 10 MEQ ER tablet Take 10 mEq by mouth in the morning and 10 mEq before bedtime. Activerivaroxaban 20 mg oral tablet (20 sources)Factor Xa InhibitorStart: 17-30-5183wfib 1 tablet by mouth at mealtimeXarelto 20 MG tablet Take 20 mg by mouth in the evening. Take with meals 03/27/2025 ActiveStart: 02-14-2024 End: 25-08-5192avwf 1 tablet by mouth at mealtimeXarelto 20 MG tablet Take 20 mg by mouth in the evening. Take with meals 02/14/2024 06/28/2024 Discontinued (Discontinued by another clinician)Start: 01-09-2024 End: 52-00-2158rtde 1 tablet by mouth in the morningrivaroxaban (XARELTO) 10 mg tablet Take 1 tablet (10 mg total) by mouth in the morning. 01/09/2024 0 01/08/2025 Activesacubitril 24 mg / valsartan 26 mg oral tablet (20 sources)Angiotensin 2 Receptor BlockerStart: 03-08-2024 End: 91-66-8726ixdr 1 tablet by mouth in the morningsacubitril-valsartan (Entresto) 24-26 MG tablet Take 1 tablet by mouth in the morning and 1 tablet in the evening. 03/08/2024 Active5 ml sodium chloride 9 mg/ml injection (3 sources)Start: 37-11-4415ceahti chloride flush 0.9 % injection 5-40 mLStart: .9 % sodium chloride infusionStart: 06-19-8672kwulvw chloride flush 0.9 % injection 5-40 mLsulfamethoxazole 800 mg / trimethoprim 160 mg oral tablet (20 sources)Dihydrofolate Reductase Inhibitor Antibacterial, Sulfonamide AntimicrobialStart: 05-20-2025 End: 45-01-7541dfll 1 tablet by mouth once in the morning, then take 1 tablet by mouth once at bedtimesulfamethoxazole-trimethoprim (Bactrim DS) 800-160 MG per tablet Indications: Open wound of left lower leg, subsequent encounter Take 1 tablet by mouth in the morning and 1 tablet before bedtime. Do all this for 7 days. 14 tablet 06/10/2025 06/17/2025 ActiveStart: 02-20-2025 End: 26-10-5617urxw 1 tablet by mouth once in the morning, then take 1 tablet by mouth once at bedtimesulfamethoxazole-trimethoprim (Bactrim DS) 800-160 MG per tablet Indications: Cellulitis of left hand Take 1 tablet by mouth in the morning and 1 tablet before bedtime. Do all this for 10 days. 20 tablet 03/01/2025 03/11/2025 ActiveStart: 09-29-2022 End: 65-94-4514gsnk 1 tablet by mouth twice dailySulfamethoxazole-Trimethoprim 800-160 mg Tablet Discontinued 1 TAB PO Twice daily September 1:00am June 25, 2025 2:43pmStart: 10-26-2018 End: 20-16-7278tcki 1 tablet by mouth twice dailySulfamethoxazole-Trimethoprim (Bactrim Ds) 800-160 mg tablet Discontinued 1 TAB PO Twice daily 2018 1:00am October 30, 2018 1:00am October 31, 2018 1:02am call Dr. Velazquez about inrlevel checksStart: 09-05-2018 End: 12-35-5114eoab 1 tablet by mouth twice dailySulfamethoxazole-Trimethoprim (Bactrim Ds) 800-160 mg tablet Discontinued 1 TAB PO Twice daily September 05, 2018 1:00am September 18, 2018 1:00am September 19, 2018 1:01amStart: 06-19-2018 End: 92-08-0499fmui 1 tablet by mouth every twelve hoursSulfamethoxazole- Trimethoprim (Bactrim Ds) 800-160 mg tablet Discontinued 1 TAB PO Q12H June 19, 2018 12:00am July 02, 2018 12:00am July 03, 2018 12:03amtiZANidine 4 mg oral tablet (20 sources)Central alpha-2 Adrenergic AgonistStart: 05-01-2025 End: 60-09-8994jtwy 1 tablet by mouth every eight hours as needed for muscle spasmstiZANidine (Zanaflex) 4 MG tablet Indications: Back muscle spasm TAKE 1 TABLET (4 MG) BY MOUTH EVERY 8 HOURS NEEDED FOR MUSCLE SPASMS 60 tablet 1 05/01/2025 05/20/2025 Discontinued (Therapy completed)Start: 00-51-7422paxv 1 tablet by mouth every eight hours for muscle spasmstiZANidine (Zanaflex) 4 MG tablet Indications: Back muscle spasm TAKE 1 TABLET (4 MG) BY MOUTH EVERY 8 HOURS IF NEEDED FOR MUSCLE SPASMS 60 tablet 1 03/25/2025 ActiveStart: 01-04-2025 take 1 tablet by mouth every eight hours for muscle spasmstiZANidine (Zanaflex) 4 MG tablet Indications: Back muscle spasm TAKE 1 TABLET (4 MG) BY MOUTH EVERY 8 HOURS IF NEEDED FOR MUSCLE SPASMS 60 tablet 1 01/04/2025 ActiveStart: 07-06-2024 End: 34-25-7229soht 1 tablet by mouth every eight hours for muscle spasms tiZANidine (Zanaflex) 4 MG tablet Indications: Back muscle spasm TAKE 1 TABLET (4 MG) BY MOUTH EVERY 8 HOURS IF NEEDED FOR MUSCLE SPASMS 60 tablet 1 09/12/2024 ActiveWound Dressings (Medihoney wound/burn) gel (10 sources)Start: 75-07-3415Gjmhq Dressings (Medihoney wound/burn) gel Indications: Open wound of left lower leg, subsequent encounter APPLY 1 APPLICATION TO AFFECTED AREA DAILY FOR 7 DOSES 15 g 06/11/2025 ActiveStart: 06-10-2025 End: 35-43-8021Qwjym Dressings (Medihoney wound/burn) gel Indications: Open wound of left lower leg, subsequent encounter Apply 1 application topically Daily for 7 doses 15 mL 06/10/2025 06/17/2025 ActiveStart: 05-30-2025 End: 33-91-3174Ntkbj Dressings (Medihoney wound/burn) gel Indications: Open wound of left lower leg, subsequent encounter Apply 1 application topically Daily for 7 doses 15 mL 05/30/2025 06/10/2025 Discontinued (Reorder)Start: 05-30-2025 End: 96-51-2355Bwyia Dressings (Medihoney wound/burn) gel Indications: Open wound of left lower leg, subsequent encounter Apply 1 application topically Daily for 7 doses 15 mL 05/30/2025 06/06/2025 Activezolpidem tartrate 10 mg oral tablet (20 sources)gamma-Aminobutyric Acid-ergic AgonistStart: 06-16-2018 End: 65-99-3365kwsedeer (Ambien) 10 MG tablet Indications: Primary insomnia Take 1 tablet (10 mg) by mouth as needed at bedtime for sleep 30 tablet 5 06/10/2025 Active Completed/Discontinued Medications MedicationDrug Class(es)DatesSig (Normalized)Sig (Original)albuterol 0.83 mg/ml inhalation solution (2 sources)beta2-Adrenergic AgonistStart: 11-06-2018 End: 66-69-2912ksaw 1 mL by inhalation three times daily as neededAlbuterol Sulfate 2.5 mg /3 mL (0.083 %) solution for nebulization Discontinued 3 ML INHALATION Three times daily as needed for sob November 06, 2018 1:00am November 17, 2018 10:49ambetamethasone 3 mg/ml / betamethasone acetate 3 mg/ml injectable suspension (1 source)CorticosteroidStart: 12-31-2024 End: 32-72-760245 mg, intra-articular, One-Time Injection, Starting on Tue12/31/24 at 1046, For 1 dosecalcium chloride 0.0014 meq/ml / potassium chloride 0.004 meq/ml / sodium chloride 0.103 meq/ml / sodium lactate 0.028 meq/ml injectable solution (1 source)Start: 11-09-2022 End: 63-86-3516vfajgwel ringers infusioncephalexin 500 mg oral capsule (2 sources)Cephalosporin AntibacterialStart: 11-09-2018 End: 11-10-0649ayqq 1 capsule by mouth every eight hoursCephalexin (Keflex) 500 mg capsule Discontinued 500 MG PO Q8H 21 7 November 09, 2018 1:00am November 15, 2018 1:00am November 16, 2018 1:01amcyclobenzaprine hydrochloride 5 mg oral tablet (4 sources)Muscle RelaxantStart: 09-29-2022 End: 37-54-8199afju 1 tablet by mouth three times daily as needed for muscle spasmsCyclobenzaprine 5 mg Tablet Discontinued 5 MG PO Three times daily as needed for Spasms 21 30 Castillo 7th, 2022 1:00am June 25, 2025 2:45pm Start: 09-11-2022 End: 52-20-3690aiha 1 tablet by mouth three times daily as needed for muscle spasmsCyclobenzaprine (Flexeril) 10 mg Tablet Discontinued 10 MG PO Three times daily as needed for Spasms September 11, 2022 1:00am September 29, 2022 2:59pm Enoxaparin (2 sources)Low Molecular Weight HeparinStart: 09-11-2022 End: 91-42-6692Aetvzwyjgn (Lovenox) 30 mg/0.3 mL Solution Discontinued 30 MG SUBCUT Twice daily September 11, 2022 1:00am September 29, 2022 2:59pmStart: 09-11-2022 End: 00-47-7832Adcorujtjg (Lovenox) 30 mg/0.3 mL Solution Discontinued 30 MG SUBCUT Twice daily September 11, 2022 12:00am September 29, 2022 1:59pm hydroCHLOROthiazide 25 mg / triamterene 37.5 mg oral tablet (4 sources)Potassium-sparing Diuretic, Thiazide DiureticStart: 11-07-2018 End: 73-88-7976hvsn 1 tablet by mouth once dailyTriamterene-Hydrochlorothiazid 37.5-25 mg Tablet Discontinued 1 TAB PO Daily November 07, 2018 1:00am November 09, 2018 8:02pmStart: 06-16-2018 End: 17-06-4919zjfx 1 capsule by mouth once dailyTriamterene-Hydrochlorothiazid 37.5-25 mg Capsule Discontinued 1 CAP PO Daily June 16, 2018 12:00am November 06, 2018 7:38pm3 ml insulin lispro 100 unt/ml pen injector (2 sources)Insulin AnalogStart: 09-11-2022 End: 47-08-3566kqcjfp 100 [IU] by subcutaneous injection at bedtimeInsulin Lispro (Humalog Kwikpen Insulin) 100 unit/mL Insulin Pen Discontinued SUBCUT Before meals and at bedtime September 11, 2022 1:00am September 29, 2022 2:59pm levoFLOXacin 750 mg oral tablet (6 sources)Quinolone AntimicrobialStart: 06-27-2025 End: 01-97-1688obhs 1 tablet by mouth once dailyLevofloxacin 750 mg tablet Discontinued 750 MG PO Daily 7 June 27, 2025 12:00am July 08, 2025 2:18pmStart: 03-01-2025 End: 04-61-3478qkjr 1 tablet by mouth once dailylevoFLOXacin (Levaquin) 250 MG tablet Indications: Cellulitis of left hand Take 1 tablet (250 mg) by mouth Daily for 10 days 10 tablet 03/01/2025 03/11/2025 Activelinezolid 600 mg oral tablet (1 source)Oxazolidinone AntibacterialStart: 06-25-2025 End: 81-52-6745ybjl 1 tablet by mouth twice dailyLinezolid 600 mg tablet Discontinued 600 MG PO Twice daily 12 08June 25, 2025 12:00am July 08, 2025 2:18pmlisinopril 20 mg oral tablet (2 sources)Angiotensin Converting Enzyme InhibitorStart: 08-31-2018 End: 67-92-9821zztr 1 tablet by mouth once dailyLisinopril 20 mg Tablet Discontinued 20 MG PO Daily August 31, 2018 1:00am November 09, 2018 8:01pm methylPREDNISolone (9 sources)CorticosteroidStart: 01-01-2025 End: 91-38-1554ptanesZIOTXGTienjo (Medrol Dospak) 4 MG tablets Indications: Metatarsalgia of both feet Take as directed on package. 21 tablet 01/01/2025 01/21/2025 Discontinued (Therapy completed)Start: 91-59-0301xicmqwNQQPUXXqdmgw (Medrol Dospak) 4 MG tablets Indications: Metatarsalgia of both feet Take as directed on package. 21 tablet 01/01/2025 ActiveStart: 12-06-2023 End: 49-89-7068pvhisrAGDAHRNfirhq acetate (DEPO-Medrol) injection 40 mg1 ml morphine sulfate 2 mg/ml cartridge (1 source)Opioid AgonistStart: 11-09-2022 End: 25-31-7060peyhqfbs (PF) injection 2 mgnystatin 100 unt/mg topical powder (2 sources)Polyene AntifungalStart: 09-29-2022 End: 31-51-5921Lunjaxqt (Nystop) 100,000 unit/gram Powder Discontinued 1 APPLIC TOPICAL Twice daily 11 06September 29, 2022 1:00am July 08, 2025 2:18pm ondansetron 4 mg oral tablet (2 sources)Serotonin-3 Receptor AntagonistStart: 09-11-2022 End: 18-46-6137fgvf 1 tablet by mouth every eight hours as needed for nausea Ondansetron Hcl (Zofran) 4 mg Tablet Discontinued 4 MG PO Q8H as needed for nausea September 11, 2022 1:00am September 29, 2022 2:59pmpantoprazole 40 mg delayed release oral tablet (4 sources)Proton Pump InhibitorStart: 09-11-2022 End: 95-53-1348eguu 1 tablet by mouth once dailyPantoprazole (Protonix) 40 mg Tablet,Delayed Release (Dr/Ec) Discontinued 40 MG PO Daily September 11, 2022 1:00am September 29, 2022 2:59pmStart: 11-06-2018 End: 11-94-2650gswj 1 tablet by mouth once dailyPantoprazole 40 mg Tablet,Delayed Release (Dr/Ec) Discontinued 40 MG PO Daily November 06, 2018 1:00am November 06, 2018 7:31pmpolyethylene glycol 3350 03923 mg powder for oral solution (2 sources)Osmotic LaxativeStart: 09-11-2022 End: 05-56-5836moyg 17 g by mouth once daily as needed for constipation Polyethylene Glycol 3350 17 gram Powder In Packet Discontinued 17 GM PO Daily as needed for Constipation September 11, 2022 1:00am September 29, 2022 2:59pm predniSONE 20 mg oral tablet (2 sources)Start: 11-06-2018 End: 62-90-5393gkkp 2 tablets by mouth once dailyPrednisone 20 mg Tablet Discontinued 40 MG PO Daily November 06, 2018 1:00am November 06, 2018 7:39pm Start: 11-06-2018 End: 12-96-7525ocii 40 mg by mouth once dailyPrednisone Discontinued 40 MG PO Daily November 06, 2018 12:00am November 06, 2018 6:39pmpromethazine hydrochloride 25 mg oral tablet (4 sources)PhenothiazineStart: 11-17-2018 End: 43-24-1893bngi 1 tablet by mouth every six hours as needed for nausea and vomitingPromethazine 25 mg Tablet Discontinued 25 MG PO Q6H as needed for Nausea And Vomiting October 1:00am September 29, 2022 2:59pmStart: 06-16-2018 End: 69-48-0903fzls 1 tablet by mouth every six hours as needed for nausea and vomitingPromethazine 25 mg Tablet Discontinued 25 MG PO Q6H as needed for Nausea And Vomiting June 16, 2018 12:00am November 06, 2018 3:36pmraNITIdine 300 mg oral tablet (2 sources)Histamine-2 Receptor AntagonistStart: 11-06-2018 End: 01-97-9188ufzs 1 tablet by mouth twice dailyRanitidine Hcl 300 mg tablet Discontinued 300 MG PO Twice daily November 06, 2018 1:00am November 09, 2018 8:01pmrOPINIRole 2 mg oral tablet (5 sources)Nonergot Dopamine AgonistStart: 11-07-2018 End: 58-47-8115mdmc 1 tablet by mouth once daily at bedtimeRopinirole 2 mg Tablet Discontinued 2 MG PO Daily at bedtime November 07, 2018 1:00am November 09, 2018 8:02pmStart: 06-16-2018 End: 86-29-2974mowu 1 tablet by mouth once dailyRopinirole 2 mg Tablet Extended Release 24 Hr Discontinued 2 MG PO Daily June 16, 2018 12:00am November 06, 2018 7:39pmtake 1 tablet by mouth three times dailyrOPINIRole (REQUIP) 2 MG tablet Take 2 mg by mouth 3 times daily. 0 ActiveSennosides (Senokot) 8.6 mg Tablet (1 source)Start: 09-11-2022 End: 69-24-0281lhxi 1 tablet by mouth twice dailySennosides (Senokot) 8.6 mg Tablet Discontinued 8.6 MG PO Twice daily September 11, 2022 12:00am September 29, 2022 1:59pmsennosides, senior care 8.6 mg oral tablet (1 source)Start: 09-11-2022 End: 87-02-4405afjo 1 tablet by mouth twice dailySennosides (Senokot) 8.6 mg Tablet Discontinued 8.6 MG PO Twice daily September 11, 2022 1:00am September 29, 2022 2:59pmtamsulosin hydrochloride 0.4 mg oral capsule (15 sources)alpha-Adrenergic BlockerStart: 11-09-2018 End: 65-22-0758qwsl 1 capsule by mouth once dailyTamsulosin (Flomax) 0.4 mg capsule Discontinued 0.4 MG PO Daily November 09, 2018 1:00am September 29, 2022 2:59pmtorsemide 20 mg oral tablet (4 sources)Loop DiureticStart: 11-07-2018 End: 83-75-5587Xjlhmpxfs 20 mg tablet Discontinued November 07, 2018 1:00am November 07, 2018 10:10amStart: 11-06-2018 End: 90-19-4905tmot 1 tablet by mouth once dailyTorsemide 20 mg tablet Discontinued 20 MG PO Daily November 06, 2018 1:00am November 09, 2018 8:02pm traZODone hydrochloride 100 mg oral tablet (4 sources)Serotonin Reuptake InhibitorStart: 06-16-2018 End: 92-75-1109xhzf 1 tablet by mouth once dailyTrazodone 100 mg Tablet Discontinued 100 MG PO Daily November 07, 2018 1:00am November 09, 2018 8:02pm 1 ml triamcinolone acetonide 40 mg/ml prefilled syringe (8 sources)CorticosteroidStart: 04-03-2025 End: 86-76-4661wewgezrfuppyq acetonide (Kenalog-40) injection 40 mgStart: 04-03-2025 End: 47-21-3514yziewj 40 mg by intramuscular injection once40 mg, Intramuscular, Once, On Tue04/03/25 at 1230, For 1 doseStart: 04-03-2025 End: 84-18-9906uhjnecwwadfvu acetonide (Kenalog-40) injection 40 mgStart: 04-03-2025 End: 20-55-5414awktzq 40 mg by intramuscular injection once40 mg, Intramuscular, Once, On Tue04/03/25 at 1230, For 1 doseStart: 09-11-2022 End: 36-73-2927Txhfavtguvmad Acetonide 0.1 % Cream Active 1 APPLIC TOPICAL Twice daily 11 22September 29, 2022 1:00am Complies with drug therapywarfarin sodium 5 mg oral tablet (4 sources)Vitamin K AntagonistStart: 11-06-2018 End: 45-72-6287Xxisonrm 5 mg Tablet Discontinued 10 MG PO MOFR@2000 November 06, 2018 1:00am September 29, 2022 2:59pmStart: 11-06-2018 End: 05-52-4164Zgtaxalv Discontinued 10 MG PO MOFR@1999November 06, 2018 12:00am September 29, 2022 1:59pmStart: 06-16-2018 End: 67-42-7523Mmsabkbm (Coumadin) 5 mg Tablet Discontinued 5 MG PO SUTUWETHSA@1999June 16, 2018 12:00am September 29, 2022 2:59pm Problems Active Problems Problem ClassificationProblemDateDocumented DateEpisodic/ChronicAcquired foot deformities (4 sources)Musculoskeletal finding; Translations: [Other acquired deformities of left foot]91-95-7773OciorimlQyopiyxb foot deformities (4 sources)Musculoskeletal finding; Translations: [Other acquired deformities of right foot]55-71-7193CcvgahotKdsfr myocardial infarction (20 sources)Acute non-ST segment elevation myocardial infarction; Translations: [Non-ST elevation (NSTEMI) myocardial infarction]Onset: ChronicAllergic reactions (2 sources)Allergic disorder of skin; Translations: [Allergic contact dermatitis, unspecified cause]49-86-3599XnprsvqeGyngvxp dysrhythmias (20 sources)Unspecified atrial fibrillation; Translations: [Paroxysmal atrial fibrillation]Onset: [id number]sju obstructive pulmonary disease and bronchiectasis (20 sources)Chronic obstructive lung disease; Translations: [Chronic obstructive pulmonary disease, unspecified]Onset: 08-04-2018 Resolved: 478602-86-8287TfkfwxaEfrrbwi ulcer of skin (20 sources)Ulcer; Translations: [Ulcerative lesion]Onset: 01-18-2018 Resolved: 215445-39-8279QkyerdcZmoktkfkqzp and hemorrhagic disorders (20 sources)Hypercoagulability state; Translations: [Other primary thrombophilia]Onset: 230756-32-3350GvybbeeZokpyafdwf heart failure; nonhypertensive (20 sources)Congestive heart failure; Translations: [Heart failure, unspecified] Onset: 355784-13-2517ThsbcrhUbdjtdxp atherosclerosis and other heart disease (20 sources)Atherosclerotic heart disease of [place] coronary artery without angina pectoris; Translations: [Coronary arteriosclerosis]Onset: 10-07-2015 50-37-1056RqepypzPdylieqgjx and other anemia (2 sources)Anemia; Translations: [Anemia, unspecified]57-11-8003Ouiauudj Deficiency and other anemia (1 source)Anemia, unspecified; Translations: [Anemia, unspecified]09-30-2022 EpisodicDiabetes mellitus with complications (20 sources)Disorder of nervous system due to diabetes mellitus; Translations: [Type 2 diabetes mellitus with other diabetic neurological complication]Onset: 01-11-2018 Resolved: 684829-51-3694HnpcmenIxguqumk mellitus without complication (10 sources)Type 2 diabetes mellitus without complications; Translations: [Diabetes mellitus]Onset: 06-18-2013 Resolved: 015986-15-1866XyxivngKhkcthoei of lipid metabolism (20 sources)Hyperlipidemia; Translations: [Hyperlipidemia, unspecified]Onset: 909020-62-9069IwdusuiSmuijabfkekftb and diverticulitis (20 sources)Diverticulosis of colon; Translations: [Diverticulosis of large intestine without perforation or abscess without bleeding]Onset: 08-06-2019 18-72-9120UdnmellVansnwxkqn disorders (20 sources)Gastro-esophageal reflux disease without esophagitis; Translations: [Gastroesophageal reflux disease without esophagitis]Onset: ChronicEssential hypertension (20 sources)Essential (primary) hypertension; Translations: [Essential hypertension]Onset: 621974-27-8525IakstttMqyq and other crystal arthropathies (20 sources)Gout; Translations: [Gout, unspecified]Onset: ChronicHyperplasia of prostate (20 sources)Benign prostatic hyperplasia; Translations: [Benign prostatic hyperplasia without lower urinary tract symptoms]Onset: ChronicHypertension with complications and secondary hypertension (2 sources)Hypertensive heart disease with heart failure; Translations: [Hypertensive heart disease with heartfailure]Onset: 97-42-3140Rawtibb Immunizations and screening for infectious disease (2 sources)Vaccination needed; Translations: [Encounter for immunization] 08-04-4501FvdwuciiTccyb disorders and dislocations; trauma-related (20 sources)Traumatic arthropathy-knee; Translations: [Traumatic arthropathy, unspecified knee]Onset: 357608-95-6081CzgyxlyEzizylpiknlfj mental health disorders (5 sources)Primary insomnia; Translations: [Primary insomnia]96-84-5378Zeueggd Mood disorders (20 sources)Depressive disorder; Translations: [Depressive disorder]Onset: 02-23-2019 Resolved: 065436-78-6003YxnekfaHsphcutfaqb chest pain (4 sources)Chest pain; Translations: [Chest pain, unspecified]Onset: 01-28-2024 96-37-4120NzyaqogaDhcgdskbqaoutc (20 sources)Arthritis; Translations: [Unspecified osteoarthritis, unspecified site]Onset: 085412-12-4344PcfnjyuLqugg acquired deformities (20 sources)Contracture of joint of right ankle; Translations: [Contracture, right ankle]Onset: 070118-15-1441FuligdmPmmcd acquired deformities (4 sources)Equinus contracture of the ankle; Translations: [Contracture, right ankle]72-18-0360OkkiatiDoqvt acquired deformities (4 sources)Equinus contracture of the ankle; Translations: [Contracture, left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 RESISTANT TO ALL B-LACTAM DRUGS. PERFORMED BY: [place] [address] PATHOLOGIST COMIC BOOK WRITER TALHA DIALLO M.D.[facility] Physician GroupComment on above: Performed By: #### AERC #### [place] [address] USAAerobic cultureOrdered By: Shelly Mclaughlin on 06-25-2025 Bacteria identified Aer cx Nom (Unsp spec)Enterobacter cloacae complexAbnormal [facility] City HospitalAnaerobic cultureOrdered By: Shelly Mclaughlin on 86-54-8369Usnxqwee identified Anaer cx Nom (Unsp spec)No Anaerobes Isolated 3 DaysTwin City HospitalGram stain microscopyOrdered By: Shelly Mclaughlin on 73-82-1945Stwazgdnlki observation Gram stain Nom (Unsp spec)[facility] City HospitalVAS US LOWER EXTREMITY VENOUS DUPLEX LEFTon 05-31-2025 VASC US LOWER EXTREMITY VENOUS DUPLEX LEFTEXAM: VASC US LOWER EXTREMITY VENOUS DUPLEX LEFT TECHNIQUE: LEFT lower extremity venous duplex exam was performed. HISTORY: Lower extremity swelling. FINDINGS: The common femoral, femoral, deep femoral, popliteal and calf veins were evaluated for deep venous thrombosis. The veins were evaluated with color Doppler imaging, compression and augmentation if possible. There is only partial compression of the popliteal vein. IMPRESSION: Positive for thrombus within the popliteal vein. ELECTRONICALLY SIGNED BY: Suni Mendoza AvailableXR Shoulder - left 2 Viewson 53-63-7420SD and lateral x-rays left shoulder reviewed stable appearing reverse total shoulder arthroplasty without evidence of hardware failure this is my independent interpretation.MANUALLY TRANSCRIBED RESULTSAdena Regional Medical Center SystemRadiology Study observation (narrative)[facility] SystemUPERFICIAL WOUND (HTRX)on 57-00-1529MJFIBAOTUYKEX BAUMANNII (ACUTE WOUND)0[facility] ACINETOBACTER BAUMANNII (ACUTE WOUND)Not detectedNOMS HealthcareBACTEROIDES FRAGILIS, VULGATUS (ACUTE WOUND)0[facility] HealthcareBACTEROIDES FRAGILIS, VULGATUS (ACUTE WOUND)Not detectedNOMS HealthcareCITROBACTER FREUNDII (ACUTE WOUND)0[facility] HealthcareCITROBACTER FREUNDII (ACUTE WOUND)Not detectedN[facility] CLOSTRIDIUM PERFRINGENS, NOVYI, SEPTICUM (ACUTE WOUND)0[facility] CLOSTRIDIUM PERFRINGENS, NOVYI, SEPTICUM (ACUTE WOUND)Not detectedNOMS HealthcareENTEROBACTER CLOACAE COMPLEX, KLEBSIELLA (ENTEROBACTER) AEROGENES ((A) 28.861AbnormalNOMS HealthcareENTEROBACTER CLOACAE COMPLEX, KLEBSIELLA (ENTEROBACTER) AEROGENES ((A)DetectedAbnormalNOMS HealthcareENTEROCOCCUS FAECALIS, [id number] HealthcareENTEROCOCCUS FAECALIS, FAECIUMNot detectedNOMS HealthcareESCHERICHIA COLI (ACUTE WOUND)0[facility] HealthcareESCHERICHIA COLI (ACUTE WOUND)Not detectedNOMS HealthcareInterpretation and review of laboratory results AbnormalNOMS HealthcareKLEBSIELLA PNEUMONIAE, OXYTOCA (ACUTE WOUND)0[facility] HealthcareKLEBSIELLA PNEUMONIAE, OXYTOCA (ACUTE WOUND)Not detectedNOMS HealthcarePROTEUS MIRABILIS, VULGARIS (ACUTE WOUND)0[facility] HealthcarePROTEUS MIRABILIS, VULGARIS (ACUTE WOUND)Not detectedNOMS HealthcarePSEUDOMONAS AERUGINOSA (ACUTE WOUND)0[facility] HealthcarePSEUDOMONAS AERUGINOSA (ACUTE WOUND)Not detectedNOMS HealthcareS. agalactiae Org specific cx Ql (Vag fld)0[facility] HealthcareS. agalactiae Org specific cx Ql (Vag fld)Not detectedN[facility] SERRATIA MARCESCENS (ACUTE WOUND)0[facility] HealthcareSERRATIA MARCESCENS (ACUTE WOUND)Not detectedNOMS HealthcareSTAPHYLOCOCCUS AUREUS (ACUTE WOUND)0NOMS HealthcareSTAPHYLOCOCCUS AUREUS (ACUTE WOUND)Not detectedN[facility] STREPTOCOCCUS PYOGENES (GROUP A STREP) (ACUTE WOUND)0[facility] STREPTOCOCCUS PYOGENES (GROUP A STREP) (ACUTE WOUND)Not detectedN[facility] VIBRIO CHOLERAE, PARAHAEMOLYTICUS, VULNIFICUS (ACUTE WOUND)0[facility] VIBRIO CHOLERAE, PARAHAEMOLYTICUS, VULNIFICUS (ACUTE WOUND)Not detectedNOMS HealthcareNOMS HealthcareLaboratory - Hematology and Cell countson 05-20-2025 HbA1c (Bld) [Mass fraction]5.5 %[facility] HealthcareNo Panel Informationon 05-20-2025 Interpretation and review of laboratory resultsNormalWashington Regional Medical CenterXR Shoulder - left 2 Viewson 88-23-8281WH and lateral x-rays left shoulder reviewed stable appearing reverse total shoulder arthroplasty without evidence of hardware failure this is my independent interpretation.MANUALLY TRANSCRIBED RESULTSUpper Valley Medical CenterRadiology Study observation (narrative)Upper Valley Medical CenterXR SHOULDER LT 1 VWon 22-75-6635NA SHOULDER LT 1 VWXR SHOULDER LT 1 VW XR SHOULDER LT 1 VW HISTORY: Shoulder replacement. COMPARISON: 12/31/2024. IMPRESSION: 1. Interval shoulder replacement, no complication on this single view. Expected swelling and postoperative gas. Finalized by Kehinde Hahn MD on 04/17/2025 1:21 PMNormalMansfield Hospital BASIC METABOLIC PANELon 66-86-5090Kjfqm gap [Moles/Vol]5 mmol/LNormal5-15 [facility] HospitalComment on above:Performed By: #### BMP #### [facility] ([facility]) [address] [place] [address] VIRCalcium [Mass/Vol]9.0 mg/dLNormal8.5-10.5ProMedica Van Wert County HospitalComment on above:Performed By: #### BMP #### [facility] ([facility]) [address] [place] [address] VIRChloride [Moles/Vol]102 mmol/YTxrfns56-356RnuNjsact [facility] HospitalComment on above:Performed By: #### BMP #### [facility] ([facility]) [address] [place] [address] VIRCO2 [Moles/Vol]32 mmol/PIjvpqs55-72TtgHgsifj [facility] Comment on above:Performed By: #### BMP #### [facility] ([facility]) [address] [place] [address] VIRCreatinine [Mass/Vol]1.19 mg/dLNormal0.60-1.30ProFulton County Health Centerca Otis HospitalComment on above:Result Comment: METHOD TRACEABLE TO IDMS STANDARDPerformed By: #### BMP #### [facility] ([facility]) [address] [place] [address] VIRGFR/1.73 sq M.predicted among non-blacks MDRD (S/P/Bld) [Vol rate/Area]67 mL/min/{1.73_m2}Normal>=60ProSt. Vincent HospitalComment on above:Result Comment: Reported eGFR is based on the CKD-EPI 2020 equation that does not use a race coefficient.Performed By: #### BMP #### [facility] ([facility]) [address] [place] [address] VIRGlucose [Mass/Vol]92 mg/xZTprkbw64-61KndIczlkc [place] HospitalComment on above:Performed By: #### BMP #### [facility] ([facility]) [address] [place] [address] VIRPotassium [Moles/Vol]4.6 mmol/LNormal3.5-5.0ProFulton County Health Centerca Otis HospitalComment on above:Performed By: #### BMP #### [facility] ([facility]) [address] [place] [address] VIRSodium [Moles/Vol]139 mmol/FWzzuua838-108XciUijowg [facility]ina HospitalComment on above:Performed By: #### BMP #### [facility] ([facility]) [address] [place] [address] VIRUrea nitrogen [Mass/Vol]20 mg/dLNormal5-27M[facility]field HospitalComment on above:Performed By: #### BMP #### [facility] ([facility]) [address] [place] [address] VIRBasic Metabolic Panelon 19-07-3778Nbqkf gap [Moles/Vol]5 mmol/L5 - 15 mmol/[facility] and Clinicica Health SystemCalcium [Mass/Vol]9 mg/dL8.5 - 10.5 mg/dLAdena Regional Medical Center SystemChloride [Moles/Vol]102 mmol/L98 - 109 mmol/L [facility] SystemCO2 [Moles/Vol]32 mmol/L22 - 32 mmol/LPrFulton Medical Center- Fultonica Health SystemCreatinine [Mass/Vol]1.19 mg/dL0.60 - 1.30 mg/dLUpper Valley Medical Center Comment on above:METHOD TRACEABLE TO IDMS STANDARDEGFR Non-Race Iisxervan71- [facility] CenterComment on above:Reported eGFR is based on the CKD-EPI 2020 equation that does not use a race coefficient. Glucose [Mass/Vol]92 mg/dL65 - 99 mg/dLUpper Valley Medical CenterInterpretation and review of laboratory resultsNormalAdena Regional Medical Center SystemPotassium [Moles/Vol] 4.6 mmol/L3.5 - 5.0 mmol/LProMedica Health SystemSodium [Moles/Vol]139 mmol/L134 - 146 mmol/LPrFulton Medical Center- Fultonica Health SystemUrea nitrogen [Mass/Vol]20 mg/dL5 - 27 mg/dL Excela HealthCBC (NO DIFF)on 04-03-2025 Erythrocyte distribution width (RBC) [Ratio]16.6 %High11.5-15M[facility]field HospitalComment on above:Performed By: #### CBC #### [facility] ([facility]) [address] [place] [address] VIRHematocrit (Bld) [Volume fraction]41.7 %Ymbspv01-78WwbSwuovu Otis HospitalComment on above:Performed By: #### CBC #### [facility] ([facility]) [address] [place] [address] VIRHemoglobin (Bld) [Mass/Vol]13.8 g/rTMlrlqh56-78AjkAtislm Otis HospitalComment on above:Performed By: #### CBC #### [facility] ([facility]) [address] [place] [address] VIRMCH (RBC) [Entitic mass]27.8 tbFymjet85-36WnoQyskyq Otis HospitalComment on above:Performed By: #### CBC #### [facility] ([facility]) [address] [place] [address] VIRMCHC (RBC) [Mass/Vol]33.1 g/lVPduxmu96-43BlvRiuboe [place] HospitalComment on above:Performed By: #### CBC #### [facility] ([facility]) [address] [place] [address] VIRMCV (RBC) [Entitic vol]84 vSHwatjz34-867GpdGmbhiy [place] HospitalComment on above:Performed By: #### CBC #### [facility] ([facility]) [address] [place] [address] VIRPlatelet mean volume (Bld) [Entitic vol]8.2 fLNormal7-12 [facility]is HospitalComment on above:Performed By: #### CBC #### [facility] ([facility]) [address] [place] [address] VIRPlatelets (Bld) [#/Vol]254 10*3/bIYjcipb626-194YrmUlvchy Otis HospitalComment on above:Performed By: #### CBC #### [facility] ([facility]) [address] [place] [address] VIRRBC COUNT4.96 X10E12/LNormal4.1-5.7[facility] Comment on above:Performed By: #### CBC #### [facility] ([facility]) [address] [place] [address] VIRWBC (Bld) [#/Vol]6.5 10*3/uLNormal4-11M[facility] HospitalComment on above:Performed By: #### CBC #### [facility] ([facility]) [address] [place] [address] VIRCBC without diffon 95-76-2275Mocetjtpmhq distribution width (RBC) [Ratio]16.6 %High11.5 - 15 %Upper Valley Medical CenterHematocrit (Bld) [Volume fraction]41.7 %39 - 50 %Upper Valley Medical CenterHemoglobin (Bld) [Mass/Vol]13.8 g/dL13 - 17 g/dLUpper Valley Medical CenterInterpretation and review of laboratory resultsAbnoAsheville Specialty HospitalH (RBC) [Entitic mass]27.8 pg27 - 34 [facility] DaytonMCHC (RBC) [Mass/Vol]33.1 g/dL32 - 36 g/dL Upper Valley Medical CenterMCV (RBC) [Entitic vol]84 fL80 - 100 [facility] Veterans' HospitalPlatelet mean volume (Bld) [Entitic vol]8.2 fL7 - 12 [facility] Veterans' HospitalPlatelets (Bld) [#/Vol]254 10*3/[facility] HospitalRBC (Bld) [#/Vol] 4.96 10*6/[facility] HospitalWBC LM Ql (Sput)6.5PTorrance State HospitalRefillon [id number] Indio Collado 1955 M Date Provider Department Center 03/27/2025 [facility] Family History Problem Relation Age of Onset Coronary artery disease Mother Coronary artery disease Father Family Status - Relation Status Age at Mother Father Sister Brother Reason for Visit and Comments: Med Refill [[id number]][facility] HospitalRef[facility] 03-22-2025 [id number] Indio Collado 1955 Provider Department Center 03/22/2025 FAB [facility] Family History Problem Relation Age of Onset Coronary artery disease Mother Coronary artery disease Father Family Status - Relation Status Age at Mother Father Sister Brother Reason for Visit and Comments: Med Refill [[id number]][facility] HospitalCT SHOULDER LT WO CONTon 92-44-7528FB SHOULDER LT WO CONTCT SHOULDER LT WO CONT History: Primary osteoarthritis of left shoulder; Rotator cuff tear arthropathy of left shoulder PROCEDURE: Automated exposure control was utilized. CT performed through the left shoulder Findings/Impression: * Advanced rotator cuff arthropathy with superior subluxation humeral head, subacromial joint spacenarrowing, and severe glenohumeral arthritis * No fracture or destructive lesion Finalized by Vimal Morocho MD on 02/25/2025 11:23 AMNormalProFulton County Health Centerca [facility] Office Visiton 47-93-0714Wnfvwd-up [id number] Indio Collado 1955 Provider Department Center 01/31/2025 FAB [facility] Family History Problem Relation Age of Onset Coronary artery disease Mother Coronary artery disease Father Family Status - Relation Status Age at Mother Father Sister Brother Level of Service:84549 NE OFFICE/OUTPATIENT ESTABLISHED MOD MDM 30 MIN Reason for Visit and Comments: Pre-op Exam [[id number]] Atrial Fibrillation [80][facility]$ Large Joint Injection: L subacromial bursaon 21-79-3461Weiwmohamud Willis MD 12/31/2024 4:46 PM $ Large Joint Injection: L subacromial bursa on 12/31/2024 10:46 AM Indications: pain Details: 22 G needle, posterior approach Medications: 12 mg betamethasone acet & sod phos 6 mg/mL Outcome: tolerated well, no immediate complications The patient was instructed to use ice, NSAIDs, or Tylenol for pain as needed. Patient was also educated on possibility for blood glucose elevation following the injection. The patient will call with any signs or concerns. Procedure, treatment alternatives, risks and benefits explained, specific risks discussed. Patient was prepped and draped in the usual sterile fashion. MANUALLY TRANSCRIBED RESULTSProSheltering Arms Hospital SystemXR Shoulder - left 2 Viewson 65-83-9382UE, outlet, axillary, and Y-view x-rays of the left shoulder obtained in the office today were reviewed. My interpretation is that it shows evidence of advanced rotator cuff arthropathy. MANUALLY TRANSCRIBED RESULTSUpper Valley Medical CenterRadiology Study observation (narrative)[facility] Valley Medical CenterOutside Recordson 28-28-9446Ervvjtx Records [id number]#1.00OTGTSumma Health Barber[facility] Campus Outside [id number]#1.00OTCincinnati VA Medical CenterRad - Other Radiology Reporton 59-68-4392Ava - Other Radiology Report [id number]#1.00OTGTSumma Health Barberton CampusRad - Other Radiology [id number]#1.00OTGTIFFNoBucyrus Community HospitalTelemedicineon [id number] Indio Collado 1955 M Date Provider Department Center 11/29/2024 166-[facility]AB [facility] Family History Problem Relation Age of Onset Coronary artery disease Mother Coronary artery disease Father Family Status - Relation Status Age at Mother Father Level of Service:64121 NE SYNCHRONOUS AUDIO-VIDEO VISIT EST MOD MDM 30 MIN Reason for Visit and Comments: Atrial Fibrillation [80] Congestive Heart Failure [127]NormalAdams County HospitalTelephone on [id number] Indio Collado 1955 M Date Provider Department Center 11/16/2024 1987-[facility] RI HeartVAS Family History Problem Relation Age of Onset Coronary artery disease Mother Coronary artery disease Father Family Status - Relation Status Age at Mother Father Reason for Visit and Comments: 3 week post ablation f/u [Other][facility] Telephoneon [id number] Indio Collado 1955 M Date Provider Department Center 11/01/20241986-[facility]INTERM[facility] Family History Problem Relation Age of Onset Coronary artery disease Mother Coronary artery disease Father Family Status - Relation Status Age at Mother Father Reason for Visit and Comments: afib ablation f/u [Other][facility] HospitalANESon 83-81-3894GBEY Attestation signed by Rush Garcia MD at 10/25/2024 10:28 AM I interviewed and examined this patient. I reviewed his medical record. I attest to this preprocedural evaluation. Patient: Indio Collado Procedure Information Date/Time: 10/25/24929 Procedure: Ablation a-fib paroxysmal - PC APPROVED 10/25-11/23 Location: [facility] FIRER LOW PRESSURE 1 EP / [facility] (Cath) Providers: Ivonne Pressley [...] products. Plan discussed with attending. Additional Equipment RequestsNormalUniversity of Columbus Community Hospitalon 09-15-8022QPFD Electrophysiology Consult Note [place] Card[facility] Reason for visit: atrial fibrillation 10/25/24 [...] Use: Not At Risk (05/30/2023) Received from [employer] [facility] App[employer] AUDIT-C Frequency of Alcohol Consumption: Monthly or less Average Number of Drinks: 1 or 2 Frequency of Binge Drinking: Never Financial Resource Strain: Low Risk (05/30/2023) Received from [employer], [facility] App[employer] Overall Financial Resource Strain (CARDIA) Difficulty of Paying Living Expenses: Not hard at all Food Insecurity: No Food Insecurity (09/27/2024) Received from [facility] Hunger Screening Within the past 12 months we worried whether our food would run out before we got money to buy more.: Never True Within the past 12 months the food we bought just didn't last and we didn't have money to get more.: Never True Transportation Needs: No Transportation Needs (05/30/2023) Received from [facility] PRAPARE - Transportation Lack of Transportation (Medical): No Lack of Transportation (Non-Medical): No Physical Activity: Sufficiently Active (05/30/2023) Received from [facility] Exercise Vital Sign Days of Exercise per Week: 7 days Minutes of Exercise per Session: 40 min Stress: No Stress Concern Present (05/30/2023) Received from [facility] [place] of Occupational Health - Occupational Stress Questionnaire Feeling of Stress : Only a little Social Connections: Moderately Integrated (05/30/2023) Received from [facility] Social Connection and Isolation Panel [NHANES] Frequency of Communication with Friends and Family: More than three times a week Frequency of Social Gatherings with Friends and Family: Once a week Attends Spiritism Services: More than 4 times per year Active Member of Clubs or Organizations: Yes Attends Club or Organization Meetings: More than 4 times per year Marital Status: Intimate Partner Violence: Unknown (12/15/2023) [place] Safety & Environment Fear of Current or Ex-Partner: Not on file Emotionally Abused: Not on file Physically Abused: Not on file Sexually Abused: Not on file Physically or Sexually Abused: Not on file Depression: Not at risk (01/09/2024) Received from [facility] PHQ-2 Patient Health Questionnaire-2 Score: 0 Housing Stability: Low Risk (05/30/2023) Received from [facility] Housing Stability Vital Sign Unable to Pay for Housing in the Last Year: No Number of Places Lived in the Last Year: 1 Unstable Housing in the Last Year: No Utilities: Not on file Health Literacy: Adequate Health Literacy (06/05/2024) Received from [facility] B1300 Health Literacy Frequency of need for help with medical in (more content not included)...[facility] Memorial HospitalNURSNOTEon 06-72-6024MVCSOEMCCgdhcee able to sit up at this time. DC order active, sign out obtained, AVS reviewed with patient/son, no questions at this time. PIV and arias removed. No bleeding or bruising at sites. Patient taken by W/C to front entrance to leave via private vehicleNormalUniversity Kettering Health Washington TownshipPOCT GLUCOSE METER UNSOLICITED RESULTSon 66-43-5476Orchtkl [Mass/Vol]94 mg/lMTcoonx59-762 [facility] County HospitalComment on above:Order Comment: Waived Testing in the ED is performed under the ED CLIA certificate #[id number].Result Comment: askomerPerformed By: #### [id number] ####[facility] (BEAKER)[address] [place], [place] [address]Nhqfjqt [Mass/Vol]84 mg/aALpipqz14-722XuqjrcyyqiWVUMedicine Harrison Community HospitalComment on above:Order Comment: Waived Testing in the ED is performed under the ED CLIA certificate #[id number].Result Comment: [email or web address] Performed By: #### [id number] ####[facility] (BEAKER)[address] [place], [place] [address]SPSUCDG-PUIqr 87-45-1242VYM IN PPP BY COAGULATION ASSAY1.01 Normal0.90-1.10UnWVUMedicine Harrison Community HospitalComment on above:Result Comment: ACCCP RECOMMENDED INR FOR WARFARIN THERAPY CONDITION INR PROPHYLAXIS OF VENOUS THROMBOSIS 2-3 (HIGH-RISK SURGERY) TREATMENT OF VENOUS THROMBOSIS 2-3 TREATMENT OF PULMONARY EMBOLISM 2-3 PREVENTION OF SYSTEMIC EMBOLISM: 2-3 ACUTE MYOCARDIAL INFARCTION TISSUE HEART VALVES VALVULAR HEART DISEASE ATRIAL FIBRILLATION RECURRENT SYSTEMIC EMBOLISM MECHANICAL HEART VALVE 2.5-3.5 FROM: ORAL ANTICOAGULANTS. MECHANISM OF ACTION, CLINICAL EFFECTIVENESS, AND OPTIMAL THERAPEUTIC RANGE. CHEST 1995;108:231S-246S.Performed By: #### [id number] ####[facility] (BEAKER)[address] [place], [place] [address]YZYJZLQNPJM TIME (PT) IN PPP BY COAGULATION ASSAY13.3 XgfstcpDssknt81.3-14.8UnWVUMedicine Harrison Community HospitalComment on above:Performed By: #### [id number] ####[facility] (BEAKER)[address] [place], [place] [address]Jpak for Procedureon 53-04-2184Irda for [id number] Indio Collado 1955 M Date Provider Department Center 10/25/20241986-[facility]INTERM[facility] Family History Problem Relation Age of Onset Coronary artery disease Mother Coronary artery disease Father Family Status - Relation Status Age at Mother FatherNormalUniMarietta Memorial HospitalVC EXT VENOUS RT LIMITEDon 90-16-4662[place]hp[place] [address] Vein Report Signed Patient: INDIO COLLADO MR#: [id number] : 1955 Acct:[id number] Age/Sex: 69 / M ADM Date: 10/19/24 Loc: VC Attending Dr: Indio Kirk M.D. Ordering Physician: Indio Kirk M.D. Date of Service: 10/19/24 Procedure(s): VC EXT Venous RT LMTD Accession Number(s): [id number] cc: LUIS VELAZQUEZ ; Indio Kirk M.D. Patient Name: INDIO COLLADO MR#: [id number] : 1955 Exam Date: 10/19/2024 Ordering Doctor: DR INDIO KIRK M.D. RADIOLOGY REPORT PROCEDURE: VC EXT VENOUS RT LMTD COMPARISON: VC EXT VENOUS RT LMTD, 10/02/2024. INDICATIONS: I80.01 - Phlebitis and thrombophlebitis of superficial ve... TECHNIQUE: Lower extremity cárdenas scale and Duplex Doppler evaluation of the deep venous system from the inguinal ligament through the calf veins. FINDINGS: REGION: Right lower extremity. THROMBI: Negative for DVT. Heat induced thrombus visualized 2.1cm from the SFJ. The heat induced thrombus extends from groin to mid thigh. COMPRESSIBILITY: Non-compressible segments corresponding to thrombus FLOW: Areas of no flow corresponding to thrombus OTHER: CONCLUSION: 1. Successful post ablation occlusion of right anterior accessory saphenous vein. Dictated by: Thomas Colbert M.D. on 10/19/2024 at 11:40 Approved by: Thomas Colbert M.D. on 10/19/2024 at 11:40 Dictated By: Thomas Colbert M.D. Signed By: 10/19/24 1141 DD/ 1140 TD/TT: Air Pumper:TBHRadiology, Radiologist, - 10/19/2024 [place] [address] Vein Report Signed Patient: INDIO COLLADO MR#: [id number] : 1955 Acct:[id number] Age/Sex: 69 / M ADM Date: 10/19/24 Loc: VC Attending Dr: Indio Kirk M.D. Ordering Physician: Indio Kirk M.D. Date of Service: 10/19/24 Procedure(s): VC EXT Venous RT LMTD Accession Number(s): [id number] cc: LUIS VELAZQUEZ ; Indio Kirk M.D. Patient Name: INDIO COLLADO MR#: [id number] : 1955 Exam Date: 10/19/2024 Ordering Doctor: DR INDIO KIRK M.D. RADIOLOGY REPORT PROCEDURE: VC EXT VENOUS RT LMTD COMPARISON: VC EXT VENOUS RT LMTD, 10/02/2024. INDICATIONS: I80.01 - Phlebitis and thrombophlebitis of superficial ve... TECHNIQUE: Lower extremity cárdenas scale and Duplex Doppler evaluation of the deep venous system from the inguinal ligament through the calf veins. FINDINGS: REGION: Right lower extremity. THROMBI: Negative for DVT. Heat induced thrombus visualized 2.1cm from the SFJ. The heat induced thrombus extends from groin to mid thigh. COMPRESSIBILITY: Non-compressible segments corresponding to thrombus FLOW: Areas of no flow corresponding to thrombus OTHER: CONCLUSION: 1. Successful post ablation occlusion of right anterior accessory saphenous vein. Dictated by: Thomas Colbert M.D. on 10/19/2024 at 11:40 Approved by: Thomas Colbert M.D. on 10/19/2024 at 11:40 Dictated By: Thomas Colbert M.D. Signed By: 10/19/24 1141 DD/ 1140 TD/TT: Air Pumper: [facility] HealthcareRadiology Study observation (narrative)[facility] CenterVC EXT VENOUS RT LIMITEDOrdered By: Radiologist Radiology on [id number] [employer] Work Phone: [facility] EST LMTC[facility] [phone] [address] Vein Report Signed Patient: INDIO COLLADO MR#: [id number] : 1955 Acct:[id number] Age/Sex: 69 / M ADM Date: 10/19/24 Loc: Attending Dr: Indio Kirk M.D. Ordering Physician: Indio Kirk M.D. Date of Service: 10/19/24 Procedure(s): [facility] EST TD Accession Number(s): [id number] cc: LUIS VELAZQUEZ ; Indio Kirk M.D. Patient Name: INDIO COLLADO MR#: [id number] : 1955 Exam Date: 10/19/2024 Ordering Doctor: DR INDIO KIRK M.D. RADIOLOGY REPORT PROCEDURE: [facility] EST LMTD VEIN CENTER - OFFICE VISIT FOLLOW UP [facility] PROGRESS NOTES: The patient reports improvement in leg symptoms. There has been interval reduction in varicosities. The patient has followed our recommendations to walk 20-30 minutes once or twice per day since the procedure. Physical exam demonstrates decrease in varicosities of the leg. Persistent varicosities are identified along the legs bilaterally. Review of the ultrasound performed the same day demonstrates occlusive thrombus extending throughout the treated vein(s), see separate report, consistent with a successful ablation. No thrombus extending into or beyond the saphenofemoral junction. The patient expressed a desire to proceed with treatment of remaining incompetent varicosities. The patient was informed that treatment was a process and would require several procedures/sessions. VEIN/[facility] EST TD IMPRESSION: 1. Successful ablation of the right anterior accessory saphenous vein(s). 2. Persistent varicose veins and lower extremity symptoms. PLAN: 1. Endovenous laser ablation of lower left leg fruit or nut crops farm manager veins. Nurse notes, history and physical were reviewed and confirmed, see attached forms. The nurse was present throughout the physical exam and consultation Dictated by: Thomas Colbert M.D. on 10/19/2024 at 11:40 Approved by: Thomas Colbert M.D. on 10/19/2024 at 11:41 Dictated By: Thomas Colbert M.D. Signed By: 10/19/24 1142 DD/ 1141 TD/TT: Air Pumper:TBHRadiology, Radiologist, MD - 10/19/2024 [place] [address] Vein Report Signed Patient: INDIO COLLADO MR#: [id number] : 1955 Acct:[id number] Age/Sex: 69 / M ADM Date: 10/19/24 Loc: Attending Dr: Indio Kirk M.D. Ordering Physician: Indio Kirk M.D. Date of Service: 10/19/24 [facility] [id number] cc: LUIS VELAZQUEZ ; Indio Kirk M.D. Patient Name: INDIO COLLADO MR#: [id number] : 1955 Exam Date: 10/19/2024 Ordering Doctor: DR INDIO KIRK M.D. RADIOLOGY REPORT PROCEDURE: [facility] EST LMTD VEIN CENTER - OFFICE VISIT FOLLOW UP COMPARISON: [facility], 10/02/2024. PROGRESS NOTES: The patient reports improvement in leg symptoms. There has been interval reduction in varicosities. The patient has followed our recommendations to walk 20-30 minutes once or twice per day since the procedure. Physical exam demonstrates decrease in varicosities of the leg. Persistent varicosities are identified along the legs bilaterally. Review of the ultrasound performed the same day demonstrates occlusive thrombus extending throughout the treated vein(s), see separate report, consistent with a successful ablation. No thrombus extending into or beyond the saphenofemoral junction. The patient expressed a desire to proceed with treatment of remaining incompetent varicosities. The patient was informed that treatment was a process and would require several procedures/sessions. VEIN/[facility] Facility EST LMTD IMPRESSION: 1. Successful ablation of the right anterior accessory saphenous vein(s). 2. Persistent varicose veins and lower extremity symptoms. PLAN: 1. Endovenous laser ablation of lower left leg fruit or nut crops farm manager veins. Nurse notes, history and physical were reviewed and confirmed, see attached forms. The nurse was present throughout the physical exam and consultation Dictated by: Thomas Colbert M.D. on 10/19/2024 at 11:40 Approved by: Thomas Colbert M.D. on 10/19/2024 at 11:41 Dictated By: Thomas Colbert M.D. Signed By: 10/19/24 1142 DD/ 1141 TD/TT: Air Pumper: ROBERT [facility] HospitalRadiology Study observation (narrative)[facility] FACILITY EST LMTDOrdered By: Radiologist Radiology on [id number] [facility] Work Phone: aLL CBC WITH AUTO DIFFon [id number] ABSOLUTE AUTO0.1N[facility]S HealthcareBasophils/100 WBC (Bld)0.6 %0.2 - 2.0 %[facility] Healthcare Eosinophils/100 WBC (Bld)1.7 %0.9 - 7.0 %[facility] HealthcareErythrocyte distribution width (RBC) [Ratio]14.3 %11.0 - 15.0 %[facility] HealthcareHematocrit (Bld) [Volume fraction]40.5 %Low42.0 - 54.0 %[facility] HealthcareHemoglobin (Bld) [Mass/Vol]12.9 g/dLLow14.0 - 18.0 g/dLLIFEPOINT HOSPITALS HealthcareIMMATURE GRANULOCYTES ABS AUTO0.02[facility] HealthcareImmature granulocytes/100 WBC (Bld)0.2 %0.0 - 0.5 %[facility] Interpretation and review of laboratory resultsAbnormalSSM [facility] LYMPHOCYTES ABSOLUTE AUTO1.8NOSaint John's HospitalLymphocytes/100 WBC (Bld)21.4 %20.5 - 60.0 %[facility]H (RBC) [Entitic mass]29.3 pg25.9 - 34.[address]Mosaic [address] Care [address] JosephHC (RBC) [Mass/Vol]31.9 g/dL29.9 - 35.2 g/dLMosaic Life Care at St. JosephV (RBC) [Entitic vol]91.8 fL80.0 - 94.0 fLSSM Saint Mary's Health CenterMONOCYTES ABSOLUTE AUTO0.5NOAK HealthcareMonocytes/100 WBC (Bld)6.5 %1.7 - 12.0 %[facility] CenterNEUTROPHILS ABSOLUTE AUTO5.7NOMS [facility] HospitalNeutrophils/100 WBC (Bld)69.6 %43.0 - 75.0 %[facility] Health CenterPlatelet mean volume (Bld) [Entitic vol]9.8 fL9.5 - 13.5 fLSSM Saint Mary's Health CenterTB EO #0.1N[facility] HealthcareTBH [id number] [facility] HospitalTB RBC4.41LowNOSaint John's HospitalTB WBC8.3NOSaint John's HospitalCLINISYNCNOMS HealthcarePrep for Procedureon [id number] for [id number] Indio Collado 1955 M Date Provider Department Center 09/19/2024 1987-[facility] VASC LAB RI HeartVAS Family History Problem Relation Age of Onset Coronary artery disease Mother Coronary artery disease Father Family Status - Relation Status Age at Mother FatherNormalUniversCleveland Clinic Fairview HospitalOffice Visiton [id number]- [id number] Indio Collado 1955 M Date Provider Department Center 09/18/2024 [facility] Alexandra [facility] Family History Problem Relation Age of Onset Coronary artery disease Mother Coronary artery disease Father Family Status - Relation Status Age at Mother Father Level of Service:76548 NE OFFICE/OUTPATIENT ESTABLISHED LOW MDM 20 [facility] SystemVC EXT VENOUS REFLUX ARABELLA LMTDon [id number] [address] Vein Report Signed Patient: INDIO COLLADO MR#: [id number] : 1955 Acct:[id number] Age/Sex: 69 / M ADM Date: 08/15/24 Loc: VC Attending Dr: Indio Kirk M.D. Ordering Physician: Indio Kirk M.D. Date of Service: 08/15/24 Procedure(s): VC EXT Venous Reflux ARABELLA LMTD Accession Number(s): [id number] cc: LUIS VELAZQUEZ ; Indio Kirk M.D. Patient Name: INDIO COLLADO MR#: [id number] : 1955 Exam Date: 08/15/2024 Ordering Doctor: DR INDIO KIRK M.D. RADIOLOGY REPORT PROCEDURE: VC EXT VENOUS REFLUX ARABELLA LMTD COMPARISON: None. INDICATIONS: Pain due to varicose veins of bilateral legs I83.813 TECHNIQUE: Duplex imaging of the lower extremity to assess the deep and superficial venous system for the presence of deep or superficial venous incompetence and to document the location and severity of disease. The study includes evaluation of the great saphenous vein (GSV), anterior accessory saphenous vein (AASV) and small saphenous vein (SSV). Patient scanned in reverse Trendelenburg and standing. FINDINGS: RIGHT LOWER EXTREMITY: Saphenofemoral Junction Reflux: Yes 9.5mm 1.4 sec GSV: Diam (mm) Reflux/ Time (sec) Proximal Thigh 7.7 Yes 2.0 Mid Thigh 9.5 Yes 3.7 Distal Thigh 13.2 Yes 4.6 Prox Calf 8.6 Yes 1.2 Mid Calf 7.9 Yes 2.2 Saphenopopliteal Junction Reflux: 5.9mm Yes 0.6 SSV: Proximal Calf 5.5 Yes 0.8 Mid Calf 4.3 Yes 0.5 AASV: Proximal Thigh 9.7 Yes 2.5 Mid Thigh 4.4 Yes 1.2 Distal Thigh Thrombi: Chronic partial thrombus in distal popliteal vein. Compressibility: Partial compression of distal popliteal vein. Flow: Severe deep venous reflux. Preforator: Mid medial lower leg measures 8.0 mm with 1.7s reflux. Tech Note: Calcified plaque noted in arteries throughout the leg. There is a 63% reduction in right FRETTED INSTRUMENT INSPECTOR. Incompetent varicose vein mid medial lower leg measures 5.9 mm with 0.9s reflux. Varicose vein distal medial thigh measures 5.2 mm with 3.3s reflux. Varicose vein proximal posterior calf measures 4.6 mm with 1.0s reflux. Varicose vein mid posterior calf off SSV measures 4.7 mm with 1.9s reflux. LEFT LOWER EXTREMITY: Saphenofemoral Junction Reflux: Yes 11.1 mm 1.6 sec GSV: Diam (mm) Reflux/Time (sec) Proximal Thigh 11.2 Yes 1.3 Mid Thigh 3.5 Yes 3.3 Distal Thigh 8.0 Yes 1.1 Prox Calf 6.7 Yes 2.4 Mid Calf 10.4 Yes 0.4 Saphenopopliteal Junction Relux: 3.8 mm Yes 0.3 SSV: Proximal Calf 3.8 Yes 0.4 Mid Calf 5.8 Yes 1.6 AASV: Proximal Thigh 4.9 Yes 0.6 Mid Thigh 4.4 Yes 1.0 Distal Thigh Thrombi: Chronic partial thrombus of popliteal vein and mid GSV in thigh. Compressibility: Partial compression of popliteal vein. Flow: Severe deep venous reflux. Water Well Driller: Distal medial lower leg near wound 8.3 mm with 1.0s reflux. Mid posterior calf 4.5 mm with 2.2s reflux. Mid lateral lower leg 3.4 mm with 1.0s reflux. Tech Note: Discontinuous mid GSV in thigh. Incompetent varicose vein proximal medial calf measures 5.4 mm with 2.9s reflux. Varicose vein mid medial calf measures 4.7 mm with 0.5s reflux. CONCLUSION: 1. Abnormally dilated and markedly incompetent bilateral great saphenous veins. 2. Abnormally dilated and incompetent bilateral small saphenous veins. 3. Abnormally dilated and markedly incompetent right anterior accessory saphenous vein. 4. Markedly dilated incompetent branch saphenous varicosities bilaterally. 5. Abnormally dilated incompetent branch saphenous varicosities bilaterally. Dictated by: Thomas Colbert M.D. on 08/15/2024 at 10:21 Approved by: Thomas Colbert M.D. on 08/15/2024 at 13:38 Dictated By: Thomas Colbert M.D. (more content not included)...TBHRadiology, Radiologist, - 08/15/2024 [place] [address] Vein Report Signed Patient: INDIO COLLADO MR#: [id number] : 1955 Acct:[id number] Age/Sex: 69 / M ADM Date: 08/15/24 Loc: VC Attending Dr: Indio Kirk M.D. Ordering Physician: Indio Kirk M.D. Date of Service: 08/15/24 Procedure(s): VC EXT Venous Reflux ARABELLA LMTD Accession Number(s): [id number] cc: LUIS VELAZQUEZ ; Indio Kirk M.D. Patient Name: INDOI COLLADO MR#: [id number] : 1955 Exam Date: 08/15/2024 Ordering Doctor: DR INDIO KIRK M.D. RADIOLOGY REPORT PROCEDURE: VC EXT VENOUS REFLUX ARABELLA LMTD COMPARISON: None. INDICATIONS: Pain due to varicose veins of bilateral legs I83.813 TECHNIQUE: Duplex imaging of the lower extremity to assess the deep and superficial venous system for the presence of deep or superficial venous incompetence and to document the location and severity of disease. The study includes evaluation of the great saphenous vein (GSV), anterior accessory saphenous vein (AASV) and small saphenous vein (SSV). Patient scanned in reverse Trendelenburg and standing. FINDINGS: RIGHT LOWER EXTREMITY: Saphenofemoral Junction Reflux: Yes 9.5mm 1.4 sec GSV: Diam (mm) Reflux/ Time (sec) Proximal Thigh 7.7 Yes 2.0 Mid Thigh 9.5 Yes 3.7 Distal Thigh 13.2 Yes 4.6 Prox Calf 8.6 Yes 1.2 Mid Calf 7.9 Yes 2.2 Saphenopopliteal Junction Reflux: 5.9mm Yes 0.6 SSV: Proximal Calf 5.5 Yes 0.8 Mid Calf 4.3 Yes 0.5 AASV: Proximal Thigh 9.7 Yes 2.5 Mid Thigh 4.4 Yes 1.2 Distal Thigh Thrombi: Chronic partial thrombus in distal popliteal vein. Compressibility: Partial compression of distal popliteal vein. Flow: Severe deep venous reflux. Preforator: Mid medial lower leg measures 8.0 mm with 1.7s reflux. Tech Note: Calcified plaque noted in arteries throughout the leg. There is a 63% reduction in right FRETTED INSTRUMENT INSPECTOR. Incompetent varicose vein mid medial lower leg measures 5.9 mm with 0.9s reflux. Varicose vein distal medial thigh measures 5.2 mm with 3.3s reflux. Varicose vein proximal posterior calf measures 4.6 mm with 1.0s reflux. Varicose vein mid posterior calf off SSV measures 4.7 mm with 1.9s reflux. LEFT LOWER EXTREMITY: Saphenofemoral Junction Reflux: Yes 11.1 mm 1.6 sec GSV: Diam (mm) Reflux/Time (sec) Proximal Thigh 11.2 Yes 1.3 Mid Thigh 3.5 Yes 3.3 Distal Thigh 8.0 Yes 1.1 Prox Calf 6.7 Yes 2.4 Mid Calf 10.4 Yes 0.4 Saphenopopliteal Junction Relux: 3.8 mm Yes 0.3 SSV: Proximal Calf 3.8 Yes 0.4 Mid Calf 5.8 Yes 1.6 AASV: Proximal Thigh 4.9 Yes 0.6 Mid Thigh 4.4 Yes 1.0 Distal Thigh Thrombi: Chronic partial thrombus of popliteal vein and mid GSV in thigh. Compressibility: Partial compression of popliteal vein. Flow: Severe deep venous reflux. Water Well Driller: Distal medial lower leg near wound 8.3 mm with 1.0s reflux. Mid posterior calf 4.5 mm with 2.2s reflux. Mid lateral lower leg 3.4 mm with 1.0s reflux. Tech Note: Discontinuous mid GSV in thigh. Incompetent varicose vein proximal medial calf measures 5.4 mm with 2.9s reflux. Varicose vein mid medial calf measures 4.7 mm with 0.5s reflux. CONCLUSION: 1. Abnormally dilated and markedly incompetent bilateral great saphenous veins. 2. Abnormally dilated and incompetent bilateral small saphenous veins. 3. Abnormally dilated and markedly incompetent right anterior accessory saphenous vein. 4. Markedly dilated incompetent branch saphenous varicosities bilaterally. 5. Abnormally dilated incompetent branch saphenous varicosities bilaterally. Dictated by: Thomas Colbert M.D. on 08/15/2024 at 10:21 Approved by: Thomas Colbert M.D. on 08/15/2024 at 13:38 Dictated By: Thomas Colbert M.D. Signed By: 08/15/24 1340 DD/ 1338 TD/TT: Air Pumper: ROBERT HealthcareRadiology Study observation (narrative)[facility] CenterVC EXT VENOUS REFLUX ARABELLA LMTDOrdered By: Radiologist Radiology on [id number] Work Phone: [facility] EST COMPREHENSIVEon [id number] [address] Vein Report Signed Patient: INDIO COLLADO MR#: [id number] : 1955 Acct:[id number] Age/Sex: 69 / M ADM Date: 08/15/24 Loc: Attending Dr: Indio Kirk M.D. Ordering Physician: Indio Kirk M.D. Date of Service: 08/15/24 Procedure(s): [facility] Accession Number(s): [id number] cc: LUIS VELAZQUEZ ; Indio Kirk M.D. Patient Name: INDIO COLLADO MR#: [id number] : 1955 Exam Date: 08/15/2024 Ordering Doctor: DR INDIO KIRK M.D. RADIOLOGY REPORT PROCEDURE: [facility] VEIN CENTER - OFFICE VISIT INITIAL COMPARISON: None. PROGRESS NOTES: [age] year old male who presents with a 7 year history of lower extremity swelling, heaviness, and pain. The patient's leg symptoms are symmetric bilaterally. There has been a progression of symptoms over past 5 years. This increases with prolonged like dependency. The patient describes an improvement with rest, elevation, support stockings, analgesics. The patient denies any signs and symptoms to suggest arterial ischemia. The patient describes a family history diabetes, cancer, and cardiac issues. The patient has drinking and smoking history of: daily alcohol consumption. Quit smoking 15 years ago. 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 The patient has a history of deep venous thrombus. See separate history and physical for medication list. No prior treatment for varicose or spider veins. Current use of compression stockings. After review of nurse notes, history and physical exam I discussed at length the pathophysiology of venous hypertension and possible treatments, therapies and strategies available. We discussed at length the importance of elevating the lower extremities above the level of the heart, increased physical activity and compression stocking use. Ultrasound venous reflux study performed today was discussed at length with the patient. The report demonstrates markedly dilated incompetent bilateral great saphenous veins, bilateral small saphenous veins, and right anterior accessory saphenous vein. Abnormally dilated and incompetent calf fruit or nut crops farm manager veins bilaterally within region of healing wound and recently healed wounds. PHYSICAL EXAM: The right leg demonstrates several varicosities, multiple spider veins, several healed ulceration, moderate to marked edema, moderate skin discoloration. The left leg demonstrates several varicosities, multiple spider veins, healing ulceration, moderate to marked edema, moderate skin discoloration. Both thighs, legs and feet were symmetrically warm to the touch. Good posterior tibial and dorsalis pedis pulses were present bilaterally. VEIN/VC Facility EST Comprehensive IMPRESSION: 1. Bilateral lower extremity venous insufficiency 2. Bilateral lower extremity varicose veins 3. Bilateral lower extremity subcutaneous edema 4. Atherosclerotic disease noted within bilateral lower extremity arteries during ultrasound evaluation. 5. CEAP: C6, AP, AP, NE PLAN: 1. Continued use of compression stockings 2. Elevated legs and increased physical activity symptomatic relief 3. CT angiography of bilateral lower extremities to evaluate extent of atherosclerotic disease. 4. Endovenous laser ablation of right great saphenous, left great saphenous, right small saphenous, left small saphenous, and right anterior accessory saphenous veins. Endovenous laser ablation of bilateral distal lower extremity fruit or nut crops farm manager veins in regions of patient's healing and healed wounds/ulcerations. 5. Bilateral lower extremity microfoam chemical ablation of incompetent branch saphenous varicosities. Nurse notes, history and physical were reviewed and confirmed, see attached forms. The nurse was present throughout the physical exam and consultation Dictated by: Thomas Colbert M.D. on 08/15/2024 at 13:39 (more content not included)...TBHRadiology, RadiologistMD - 08/15/2024 [place] [address] Vein Report Signed Patient: INDIO COLLADO MR#: [id number] : 1955 Acct:[id number] Age/Sex: 69 / M ADM Date: 08/15/24 Loc: Attending Dr: Indio Kirk M.D. Ordering Physician: Indio Kirk M.D. Date of Service: 08/15/24 Procedure(s): [facility] EST Comprehensive Accession Number(s): [id number] cc: LUIS VELAZQUEZ ; Indio Kirk M.D. Patient Name: INDIO COLLADO MR#: [id number] : 1955 Exam Date: 08/15/2024 Ordering Doctor: DR INDIO KIRK M.D. RADIOLOGY REPORT PROCEDURE: [facility] COMPREHENSIVE VEIN CENTER - OFFICE VISIT INITIAL COMPARISON: None. PROGRESS NOTES: [age] year old male who presents with a 7 year history of lower extremity swelling, heaviness, and pain. The patient's leg symptoms are symmetric bilaterally. There has been a progression of symptoms over past 5 years. This increases with prolonged like dependency. The patient describes an improvement with rest, elevation, support stockings, analgesics. The patient denies any signs and symptoms to suggest arterial ischemia. The patient describes a family history diabetes, cancer, and cardiac issues. The patient has drinking and smoking history of: daily alcohol consumption. Quit smoking 15 years ago. 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 The patient has a history of deep venous thrombus. See separate history and physical for medication list. No prior treatment for varicose or spider veins. Current use of compression stockings. After review of nurse notes, history and physical exam I discussed at length the pathophysiology of venous hypertension and possible treatments, therapies and strategies available. We discussed at length the importance of elevating the lower extremities above the level of the heart, increased physical activity and compression stocking use. Ultrasound venous reflux study performed today was discussed at length with the patient. The report demonstrates markedly dilated incompetent bilateral great saphenous veins, bilateral small saphenous veins, and right anterior accessory saphenous vein. Abnormally dilated and incompetent calf fruit or nut crops farm manager veins bilaterally within region of healing wound and recently healed wounds. PHYSICAL EXAM: The right leg demonstrates several varicosities, multiple spider veins, several healed ulceration, moderate to marked edema, moderate skin discoloration. The left leg demonstrates several varicosities, multiple spider veins, healing ulceration, moderate to marked edema, moderate skin discoloration. Both thighs, legs and feet were symmetrically warm to the touch. Good posterior tibial and dorsalis pedis pulses were present bilaterally. VEIN/VC Facility EST Comprehensive IMPRESSION: 1. Bilateral lower extremity venous insufficiency 2. Bilateral lower extremity varicose veins 3. Bilateral lower extremity subcutaneous edema 4. Atherosclerotic disease noted within bilateral lower extremity arteries during ultrasound evaluation. 5. CEAP: C6, AP, AP, NE PLAN: 1. Continued use of compression stockings 2. Elevated legs and increased physical activity symptomatic relief 3. CT angiography of bilateral lower extremities to evaluate extent of atherosclerotic disease. 4. Endovenous laser ablation of right great saphenous, left great saphenous, right small saphenous, left small saphenous, and right anterior accessory saphenous veins. Endovenous laser ablation of bilateral distal lower extremity fruit or nut crops farm manager veins in regions of patient's healing and healed wounds/ulcerations. 5. Bilateral lower extremity microfoam chemical ablation of incompetent branch saphenous varicosities. Nurse notes, history and physical were reviewed and confirmed, see attached forms. The nurse was present throughout the physical exam and consultation Dictated by: Thomas Colbert M.D. on 08/15/2024 at 13:39 Approved by: Thomas Colbert M.D. on 08/15/2024 at 13:50 Dictated By: Thomas Colbert M.D. Signed By: 08/15/24 1351 DD/ 1350 TD/TT: Air Pumper: [facility] HealthcareRadiology Study observation (narrative)[facility] FACILITY EST COMPREHENSIVEOrdered By: Radiologist Radiology on 50-20-8982RFQVSSM [facility] Work Phone: mr SHOULDER LEFT WO IV CONTRASTon 34-86-2348VD SHOULDER LEFT WO IV CONTRASTEXAM: MR SHOULDER LEFT WO IV CONTRAST HISTORY: [...] to approximately 6 cm from the footprint. Full- thickness tear of the distal anterior half of infraspinatus tendon at the footprint with retraction of torn fibers also up to approximately 6 cm. Full- thickness tear of the distal inferior half of subscapularis tendon with retraction of torn fibers approximately 2.5 cm. Teres minor tendon is intact. Moderate atrophy and fatty infiltration of infraspinatus and subscapularis muscles. Mild atrophy and fatty infiltration of supraspinatus muscle. Highriding humeral head results in abutment of the [...] tendon. Moderate glenohumeral osteoarthritis. ELECTRONICALLY SIGNED BY: Suni Mendoza AvailableComment on above:Order Comment: MRI LT shoulder w/o. To be done at [facility] ECHO DOPPLER COMPLETEon [id number] [address] Cardiology Report Signed Patient: INDIO COLLADO MR#: [id number] : 1955 Acct:[id number] Age/Sex: 69 / M ADM Date: 06/12/24 Loc: CARD Attending Dr: FAB CORTEZ APRN Ordering Physician: FAB CORTEZ APRN Date of Service: 06/12/24 Procedure(s): CA echo doppler complete Accession Number(s): [id number] cc: LUIS VELAZQUEZ ; FAB CORTEZ APRN Patient Name: INDIO COLLADO MR#: [id number] : 1955 Exam Date: 06/12/2024 Ordering Doctor: FAB CORTEZ [facility] ECHOCARDIOGRAM REPORT PROCEDURE: CA ECHO DOPPLER COMPLETE INDICATIONS: Heart failure with reduced ejection fraction, CA - stent COMPARISON: None. DESCRIPTION: COMPLETE ECHOCARDIOGRAM Real-time transthoracic echocardiography with 2D, M-mode, spectral and color flow Doppler performed. QUALITY: Technical quality was good. LEFT VENTRICLE: Normal chamber size. Normal left ventricular wall thickness. LV EF: Global left ventricular systolic function is lower normal limits; visually estimated ejection fraction is 50 to 55%. Calculated left ventricular ejection fraction is 51%. DIASTOLIC: Grade II diastolic dysfunction. ATRIAL SEPTUM: Inadequately seen. LEFT ATRIUM: Severe dilatation. RIGHT ATRIUM: Mild dilatation. RIGHT VENTRICLE: Normal chamber size. Normal systolic function. TRICUSPID VALVE: Normal mobility and thickness. No stenosis with trivial regurgitation. Doppler studies reveal mildly (35-45) elevated right sided pressures. RVSP 35 mmHg MITRAL VALVE: Normal mobility and thickness. No evidence of mitral valve stenosis. There is no mitral annular calcification. Trivial mitral regurgitation. AORTIC VALVE: Normal trileaflet appearance. Mildly calcified aortic valve. Normal leaflet mobility. No evidence of aortic valve stenosis. No aortic regurgitation. AORTIC ROOT: Normal diameter and appearance. PULMONIC VALVE: Not well visualized. PERICARDIUM: No evidence of pericardial effusion. IVC: IVC is dilated (2.4 cm) with no collapse. CONCLUSION: 1. Global left ventricular systolic function is low normal limits; visually estimated ejection fraction is 50 to 55% 2. The right ventricle is normal in size and systolic function 3. Grade 2 diastolic dysfunction 4. Biatrial enlargement 5. Mildly elevated right ventricular systolic pressure; RVSP 35 mmHg 6. No significant valvular abnormalities Adult Echocardiography Procedure Report Left Ventricle LVEDD (3.7 - 5.6 cm): 4.66 cm LVESD (2.2 - 4.0 cm): 3.35 cm LVIVS thickness (0.6 - 1.2 cm): 0.99 cm LVPW thickness (0.5 - 1.0 cm): 0.95 cm e': 0.08 m/s E - e': 9.68 LVOT Max Gradient: 3.67 mm[Hg] LVOT Area (cm2): 0.96 m/s Peak Velocity (LVOT): 0.96 m/s Mean Velocity (LVOT): 0.61 m/s LVOT Diameter 2.33 cm Left Atrium LA Volume Index (2D A2C): 50.58 ml/m2 Left Atrium Systolic Dimension: 3.34 cm Mitral Valve MV E to A Ratio: 1.28 Mitral Valve A-Wave Peak Velocity: 0.64 m/s Mitral Valve E-Wave Peak Velocity: 0.82 m/s Right Ventricle Aorta AO Root Diam: 3.50 cm Ascending Ao Diam: 2.81 cm Aortic Valve AoV Area (Peak Asaf): 2.64 cm2, 2.64 cm2 AoV Area (VTI): 2.61 cm2, 2.61 cm2 Peak Velocity(Antegrade Flow): 1.55 m/s Peak Gradient(Antegrade Flow): 9.56 mm[Hg] Mean Velocity(Antegrade Flow): 1.03 m/s Mean Gradient(Antegrade Flow): 4.90 mm[Hg] Velocity Time Integral: 40.37 cm Tricuspid Valve Peak Velocity (Regurgitant Flow): 2.25 m/s Pulmonic Valve Peak Velocity: 0.75 m/s Peak Gradient: 2.26 mm[Hg] Right Atrium Right Atrium Systolic Pressure: 73.76 ml, 73.76 ml Dictated by: Gama Duncan M.D. on 06/12/2024 at 10:30 Approved by: Gama Duncan M.D. on 06/12/2024 at 10:37 Dictated By: Gama Duncan M.D. Signed By: (more content not included)...TBHRadiology, Radiologist, MD - 06/12/2024 [place] [address] Cardiology Report Signed Patient: INDIO COLLADO MR#: [id number] : 1955 Acct:[id number] Age/Sex: 69 / M ADM Date: 06/12/24 Loc: CARD Attending Dr: FAB CORTEZ APRN Ordering Physician: FAB CORTEZ APRN Date of Service: 06/12/24 Procedure(s): CA echo doppler complete Accession Number(s): [id number] cc: LUIS VELAZQUEZ ; FAB CORTEZ APRN Patient Name: INDIO COLLADO MR#: [id number] : 1955 Exam Date: 06/12/2024 Ordering Doctor: FAB CORTEZ [facility] ECHOCARDIOGRAM REPORT PROCEDURE: CA ECHO DOPPLER COMPLETE INDICATIONS: Heart failure with reduced ejection fraction, CA - stent COMPARISON: None. DESCRIPTION: COMPLETE ECHOCARDIOGRAM Real-time transthoracic echocardiography with 2D, M-mode, spectral and color flow Doppler performed. QUALITY: Technical quality was good. LEFT VENTRICLE: Normal chamber size. Normal left ventricular wall thickness. LV EF: Global left ventricular systolic function is lower normal limits; visually estimated ejection fraction is 50 to 55%. Calculated left ventricular ejection fraction is 51%. DIASTOLIC: Grade II diastolic dysfunction. ATRIAL SEPTUM: Inadequately seen. LEFT ATRIUM: Severe dilatation. RIGHT ATRIUM: Mild dilatation. RIGHT VENTRICLE: Normal chamber size. Normal systolic function. TRICUSPID VALVE: Normal mobility and thickness. No stenosis with trivial regurgitation. Doppler studies reveal mildly (35-45) elevated right sided pressures. RVSP 35 mmHg MITRAL VALVE: Normal mobility and thickness. No evidence of mitral valve stenosis. There is no mitral annular calcification. Trivial mitral regurgitation. AORTIC VALVE: Normal trileaflet appearance. Mildly calcified aortic valve. Normal leaflet mobility. No evidence of aortic valve stenosis. No aortic regurgitation. AORTIC ROOT: Normal diameter and appearance. PULMONIC VALVE: Not well visualized. PERICARDIUM: No evidence of pericardial effusion. IVC: IVC is dilated (2.4 cm) with no collapse. CONCLUSION: 1. Global left ventricular systolic function is low normal limits; visually estimated ejection fraction is 50 to 55% 2. The right ventricle is normal in size and systolic function 3. Grade 2 diastolic dysfunction 4. Biatrial enlargement 5. Mildly elevated right ventricular systolic pressure; RVSP 35 mmHg 6. No significant valvular abnormalities Adult Echocardiography Procedure Report Left Ventricle LVEDD (3.7 - 5.6 cm): 4.66 cm LVESD (2.2 - 4.0 cm): 3.35 cm LVIVS thickness (0.6 - 1.2 cm): 0.99 cm LVPW thickness (0.5 - 1.0 cm): 0.95 cm e': 0.08 m/s E - e': 9.68 LVOT Max Gradient: 3.67 mm[Hg] LVOT Area (cm2): 0.96 m/s Peak Velocity (LVOT): 0.96 m/s Mean Velocity (LVOT): 0.61 m/s LVOT Diameter 2.33 cm Left Atrium LA Volume Index (2D A2C): 50.58 ml/m2 Left Atrium Systolic Dimension: 3.34 cm Mitral Valve MV E to A Ratio: 1.28 Mitral Valve A-Wave Peak Velocity: 0.64 m/s Mitral Valve E-Wave Peak Velocity: 0.82 m/s Right Ventricle Aorta AO Root Diam: 3.50 cm Ascending Ao Diam: 2.81 cm Aortic Valve AoV Area (Peak Asaf): 2.64 cm2, 2.64 cm2 AoV Area (VTI): 2.61 cm2, 2.61 cm2 Peak Velocity(Antegrade Flow): 1.55 m/s Peak Gradient(Antegrade Flow): 9.56 mm[Hg] Mean Velocity(Antegrade Flow): 1.03 m/s Mean Gradient(Antegrade Flow): 4.90 mm[Hg] Velocity Time Integral: 40.37 cm Tricuspid Valve Peak Velocity (Regurgitant Flow): 2.25 m/s Pulmonic Valve Peak Velocity: 0.75 m/s Peak Gradient: 2.26 mm[Hg] Right Atrium Right Atrium Systolic Pressure: 73.76 ml, 73.76 ml Dictated by: Gama Duncan M.D. on 06/12/2024 at 10:30 Approved by: Gama Duncan M.D. on 06/12/2024 at 10:37 Dictated By: Gama Duncan M.D. Signed By: 06/12/24 1038 DD/ 1038 TD/TT: Air Pumper: [facility] HealthcareRadiology Study observation (narrative)[facility] ECHO DOPPLER COMPLETEOrdered By: Radiologist Radiology on 67-93-5801[facility] Work Phone: cBC AND AUTO DIFFon 34-77-0798JEOGWMRO BASOPHIL0.1 X10E9/LNormal0.0-0.2Pro[facility]era Community HospitalComment on above:Performed By: #### CBCA, CMP, PINR, 12905-1, 36925-8, 28998-9, 97479-0 #### [facility] ([id number]) [address] [place] [address] 56161GIPAKXKG NEUTROPHIL8.5 X10E9/LHigh1.5-6.6[facility] HospitalComment on above:Performed By: #### CBCA, CMP, PINR, 26488-8, 86474-4, 07677-6, 21276-5 #### [facility] ([id number]) [address] [place] [address] 15162Mverwlxci/100 WBC (Bld)0.6 %[facility] Comment on above:Performed By: #### CBCA, CMP, PINR, 52695-8, 30098-7, 44102-3, 40592-2 #### [facility] ([id number]) [address] [place] [address] 84475Rcknbrfgvyy (Bld) [#/Vol]0.1 10*3/uLNormal0.0-0.4[facility] HospitalComment on above:Performed By: #### CBCA, CMP, PINR, 14587-4, 63357-3, 36707-4, 38709-7 #### [facility] ([id number]) [address] [place] [address] 32363Nivvponpahu/100 WBC (Bld)0.5 %[facility] Comment on above:Performed By: #### CBCA, CMP, PINR, 40241-9, 38134-3, 29683-0, 71152-3 #### [facility] ([id number]) [address] [place] [address] 51300Oaspzjiuedl distribution width (RBC) [Ratio]16.5 %High11.5-15.0 [facility] HospitalComment on above:Performed By: #### CBCA, CMP, PINR, 28572-0, 14983-0, 99521-4, 90156-0 #### [facility] ([id number]) [address], [place] [address]Jibjkbafsz (Bld) [Volume fraction]35.7 %Sbo08-80MduJwdlkuCitizens Medical CenterComment on above:Performed By: #### CBCA, CMP, PINR, 43552-8, 92860-1, 95096-0, 21375-3 #### [facility] ([id number]) [address] [place] [address] 99706Uydgllpnbg (Bld) [Mass/Vol]12.1 g/dLLow13.0-17.0[facility] HospitalComment on above:Performed By: #### CBCA, CMP, PINR, 71075-0, 73906-9, 88011-8, 53952-7 #### [facility] ([id number]) [address] [place] [address] 77682Ynypbeykfat (Bld) [#/Vol]1.2 10*3/uLNormal1.0-3.5PChillicothe VA Medical CenterComment on above:Performed By: #### CBCA, CMP, PINR, 00907-4, 37056-2, 80273-3, 45072-6 #### [facility] ([id number]) [address] [place] [address] 46776Fgwlpdjuvaq/100 WBC (Bld)11.6 %NormalProCitizens Medical Center Comment on above:Performed By: #### CBCA, CMP, PINR, 33956-9, 88337-2, 87048-2, 75990-8 #### [facility] ([id number]) [address] [place] [address] 97400VFC (RBC) [Entitic mass]28.0 utIapbiv50-01XjfUpszqaCitizens Medical CenterComment on above:Performed By: #### CBCA, CMP, PINR, 16638-4, 71645-1, 59117-9, 50600-0 #### [facility] ([id number]) [address] [place] [address] 56627WAWT (RBC) [Mass/Vol]34.0 g/uURuaqpe82-16NoeRqpxbiAvita Health System Ontario HospitalComment on above:Performed By: #### CBCA, CMP, PINR, 28545-0, 93288-8, 28205-4, 81038-8 #### [facility] ([id number]) [address] [place] [address] 00922WVG (RBC) [Entitic vol]82 nNYrtvxz59-359TyqDjkpla [facility]remont HospitalComment on above:Performed By: #### CBCA, CMP, PINR, 50444-4, 62696-8, 09657-5, 74890-6 #### [facility] ([id number]) [address] [place] [address] 01460Dsenjmelc (Bld) [#/Vol]0.5 10*3/uLNormal0-0.9[facility] HospitalComment on above:Performed By: #### CBCA, CMP, PINR, 08616-3, 55709-9, 50785-7, 62620-1 #### [facility] ([id number]) [address] [place] [address] 16026Ugjguaxhs/100 WBC (Bld)5.1 %NormalAvita Health System Ontario Hospital Comment on above:Performed By: #### CBCA, CMP, PINR, 19027-1, 73722-2, 19692-1, 44850-3 #### [facility] ([id number]) [address] [place] [address] 63645Ovfksohuovf/100 WBC (Bld)82.2 %NormalAvita Health System Ontario Hospital Comment on above:Performed By: #### CBCA, CMP, PINR, 99258-3, 59132-9, 35559-4, 61592-6 #### [facility] ([id number]) [address] [place] [address] 88772Vgwawidl mean volume (Bld) [Entitic vol]8.7 fLNormal7-12 ProMedicTri-City Medical CenterComment on above:Performed By: #### CBCA, CMP, PINR, 85191-2, 67224-4, 32813-8, 30092-5 #### [facility] ([id number]) [address] [place] [address] 63994Ghstjcbvp (Bld) [#/Vol]237 10*3/vMRxspkf987-866XnrTmhtsp [facility] HospitalComment on above:Performed By: #### CBCA, CMP, PINR, 05236-1, 56858-3, 84970-2, 56865-5 #### [facility] ([id number]) [address] [place] [address] 46080VEH COUNT4.33 X10E12/LNormal4.10-5.70[facility] Comment on above:Performed By: #### CBCA, CMP, PINR, 58988-8, 75136-0, 49815-6, 71052-3 #### [facility] ([id number]) [address] [place] [address] 29222CQI (Bld) [#/Vol]10.4 10*3/uLNormal4.0-11.0ProCitizens Medical CenterComment on above:Performed By: #### CBCA, CMP, PINR, 49638-0, 03322-1, 71760-3, 98392-9 #### [facility] ([id number]) [address] [place] [address] 65571CKFLMJKKIYMUV METABOLIC PANELon 42-76-4806Kamhxtk [Mass/Vol]3.4 g/dLNormal3.2-5.3PChillicothe VA Medical CenterComment on above:Performed By: #### CBCA, CMP, PINR, 67077-5, 99022-2, 69162-1, 37995-3 #### [facility] ([id number]) [address] [place] [address] 65622KST [Catalytic activity/Vol]109 U/ZZwfsjy13-629WsfLtvfqdCitizens Medical CenterComment on above:Performed By: #### CBCA, CMP, PINR, 95521-2, 81018-6, 15523-5, 34356-3 #### [facility] ([id number]) [address] [place] [address] 39914VER [Catalytic activity/Vol]24 U/LNormal0-40ProCitizens Medical CenterComment on above:Performed By: #### CBCA, CMP, PINR, 27074-2, 13766-0, 88627-6, 21902-5 #### [facility] ([id number]) [address] [place] [address] 27148Juofr gap [Moles/Vol]7 mmol/LNormal5-15ProCitizens Medical CenterComment on above:Performed By: #### CBCA, CMP, PINR, 34421-5, 94037-2, 10210-6, 31310-2 #### [facility] ([id number]) [address] [place] [address] 07890YWC [Catalytic activity/Vol]19 U/LNormal0-41ProCitizens Medical CenterComment on above:Performed By: #### CBCA, CMP, PINR, 80020-9, 80020-9, 29396-8, 42348-5 #### [facility] ([id number]) [address] [place] [address] 06454Qlcfioblq [Mass/Vol]2.5 mg/dLHigh0.3-1.2ProMedMercy San Juan Medical CenterComment on above:Performed By: #### CBCA, CMP, PINR, 05827-5, 21418-2, 25198-4, 44865-0 #### [facility] ([id number]) [address], [place] [address]Eyhbqfg [Mass/Vol]7.8 mg/dLLow8.5-10.5PChillicothe VA Medical CenterComment on above:Performed By: #### CBCA, CMP, PINR, 89727-6, 02984-2, 66444-8, 09421-2 #### [facility] ([id number]) [address] [place] [address] 34161Bojgffls [Moles/Vol]103 mmol/VLfdvqr87-411CpiTbnndlCitizens Medical CenterComment on above:Performed By: #### CBCA, CMP, PINR, 93313-9, 01834-1, 80284-6, 21529-9 #### [facility] ([id number]) [address] [place] [address] 33831GO7 [Moles/Vol]24 mmol/XYwilai22-20CeaTwwwanChillicothe VA Medical Center Comment on above:Performed By: #### CBCA, CMP, PINR, 25609-5, 07398-7, 59399-7, 86826-4 #### [facility] ([id number]) [address] [place] [address] 27499Xlgtwhcxwq [Mass/Vol]1.09 mg/dLNormal0.70-1.20[facility] HospitalComment on above:Result Comment: METHOD TRACEABLE TO IDMS STANDARD Performed By: #### CBCA, CMP, PINR, 40785-2, 12395-3, 66329-4, 60262-2 #### [facility] ([id number]) [address] [place] [address] 10473MJM/1.73 sq M.predicted among non-blacks MDRD (S/P/Bld) [Vol rate/Area]74 mL/min/{1.73_m2}Normal>59ProCitizens Medical CenterComment on above:Result Comment: Reported eGFR is based on the CKD-EPI 2020 equation that does not use a race coefficient.Performed By: #### CBCA, CMP, PINR, 35036-6, 71870-1, 66425-6, 19262-9 #### [facility] ([id number]) [address] [place] [address] 28391Aaiqssf [Mass/Vol]131 mg/oKKwtc27-24FnkQcthxyCitizens Medical Center Comment on above:Performed By: #### CBCA, CMP, PINR, 67980-2, 93552-8, 54292-9, 58407-1 #### [facility] ([id number]) [address] [place] [address] 48999Lhzqhxurn [Moles/Vol]3.2 mmol/LLow3.5-5.0ProCitizens Medical CenterComment on above:Performed By: #### CBCA, CMP, PINR, 02677-3, 74319-8, 37641-1, 85541-8 #### [facility] ([id number]) [address] [place] [address] 02603Jjlaida [Mass/Vol]6.3 g/dLNormal6.0-8.0ProCitizens Medical CenterComment on above:Performed By: #### CBCA, CMP, PINR, 45873-9, 27322-4, 01692-5, 99743-3 #### [facility] ([id number]) [address] [place] [address] 66273Csghet [Moles/Vol]134 mmol/ZNweqqf215-425QonYyzkdl [facility] HospitalComment on above:Performed By: #### CBCA, CMP, PINR, 22128-9, 21585-6, 73631-7, 41301-1 #### [facility] ([id number]) [address] [place] [address] 14903Dfuh nitrogen [Mass/Vol]22 mg/dLNormal5-27ProCitizens Medical CenterComment on above:Performed By: #### CBCA, CMP, PINR, 76750-0, 54627-6, 45571-1, 67890-3 #### [facility] ([id number]) [address] [place] [address] 66662WZWMJMRJXcj 90-72-2083Neiwpgbzo [Mass/Vol]1.9 mg/dLNormal 1.8-2.6ProCitizens Medical CenterComment on above:Performed By: #### CBCA, CMP, PINR, 16934-0, 06418-1, 59638-0, 92815-9 #### [facility] ([id number]) [address] [place] [address] 14505Mjorvdgzwml peptide B [Mass/Vol]on 27-40-5981Eyzfswexqbl peptide B (Bld) [Mass/Vol]320 pg/mLHigh<100.0ProCitizens Medical CenterComment on above:Performed By: #### CBCA, CMP, PINR, 19123-9, 71854-4, 04259-3, 20053-3 #### [facility] ([id number]) [address] [place] [address] 00532IWNHPMV AND INRon 02-61-9803VMU Coag (PPP) [Relative time]2.0 {INR}High0.8-1.1PChillicothe VA Medical CenterComment on above:Performed By: #### CBCA, CMP, PINR, 95407-8, 72415-8, 81791-4, 15948-9 #### [facility] ([id number]) [address] [place] [address] 41941CB Coag (PPP) [Time]23.2 sHigh9.8-13.2PChillicothe VA Medical CenterComment on above:Result Comment: NEW REFERENCE RANGEPerformed By: #### CBCA, CMP, PINR, 58325-2, 34975-0, 33583-8, 26048-6 #### [facility] ([id number]) [address] [place] [address] 02936EPMV/FLU A+B/RSV by NAAT/Molecularon 04-46-0010HFPI/FLU A+B/RSV by NAAT/MolecularFLU A PCR Negative (qualifier value) FLU B [...] operators who are performing tests using either canvs.co or BView systems and is limited to laboratories that [...] specimen repeat. Fact Sheet for Healthcare Providers: https://www.fda.gov/media/739895/download Fact Sheet for Patients: https://www.fda.gov/media/942434/downloadNormalProMedica Madera Community HospitalComment on above:Performed By: #### COVFLR #### [facility] ([id number]) [address] [place] [address] 13443MRVKXBCO Ion 12-90-9621Stpxdqjv I.cardiac [Mass/Vol]0.03 ng/mL Normal0.00-0.04[facility] HospitalComment on above:Performed By: #### CBCA, CMP, PINR, 07207-3, 11771-8, 41842-4, 34094-1 #### [facility] ([id number]) [address] [place] [address] 95770NM CHEST 1 VWon 88-50-1644YT CHEST 1 VWXR CHEST 1 VW XR CHEST 1 VW [...] by Dipak Carbajal MD on 01/28/2024 10:34 AMNormalProCitizens Medical CenteraPTT Coag (PPP) [Time]on 98-97-9933uAQJ Coag (Bld) [Time]46 aAuba46-67 ProMedicTri-City Medical CenterComment on above:Result Comment: NEW REFERENCE RANGE Performed By: #### CBCA, CMP, PINR, 36467-5, 19392-8, 89006-8, 39790-3 #### [facility] ([id number]) [address] [place] [address] 99438Pc Panel Informationon 86-25-8879QtpazEva Sanchez DO 12/06/2023 9:57 AM L Inj/Asp: L glenohumeral on 12/06/2023 9:55 AM Indications: pain Details: 21 G needle, posterior approach Medications: 40 mg methylPREDNISolone acetate 40 MG/ML Procedure, treatment alternatives, risks and benefits explained, specific risks discussed. [facility] CenterXR ANKLE LEFT (MIN 3 VIEWS)on 02-69-6676NL ANKLE LEFT (MIN 3 VIEWS)History: 67-year-old male status post open reduction internal [...] Signed by: Abelardo Babin DO 01/12/23 Final resultNoZanesville City HospitalXR ANKLE LEFT (MIN 3 VIEWS)on 22-00-3295IH ANKLE LEFT (MIN 3 VIEWS)History: Left ankle HWR and revision ORIF ? [...] new acute fracture or osseous abnormality seen. [place] seen on medial ankle correlating with Integra application. Diffuse calcifications seen proximally, most likely related to PVD, seen in previous images as well. ? Impression: Interval healing of left ankle with maintained alignment of fracture site and intact hardware without signs of loosening. Interpreted by: DO Michael Richard DO Signed by: Michael Reinoso DO 11/10/22 Final resultChildren's Hospital for RehabilitationCreatinine W/GFR Point of Care on 91-18-2684Wciusxlmhx [Mass/Vol]0.87 mg/dL0.51 - 1.19 mg/dLBON [facility] CANCER CENTEReGFR, POCmL/min/1.53x6BQC [facility] CAN[facility] CENTERComment on above: Effective Jul 26, 2022 These [...] affects renal tubular secretion. No Panel Informationon 99-41-3103SHP [facility] CAN[facility] CENTEROPERATIVE REPORTon 99-57-2419SOTTVOBQY REPORT[address] [address] OPERATIVE REPORT PATIENT NAME: INDIO COLLADO : 1955 MED REC NO: [id number] ROOM: ACCOUNT NO: [id number] ADMIT DATE: 11/09/2022 PROVIDER: Abelardo Babin DATE OF PROCEDURE: 11/09/2022 PREOPERATIVE DIAGNOSIS: Medial wound, left ankle. POSTOPERATIVE DIAGNOSIS: Medial wound, left ankle. PROCEDURE: 1. Application of split-thickness skin graft to medial ankle wound measuring 5 x 4 cm. 2. Application of negative pressure wound VAC, left ankle. SURGEON: Abelardo Babin DO DYNAMOMETER REPAIRER: Liss Matute DO, PGY-2 and [place] [...] my clinic in one week. ABELARDO BABIN RUSSELL/[email or web address] Doc#: [id number] CC:NormalMercy Promise Hospital Of East Los AngelesPOCT Glucoseon 76-12-9445Fnmsmss [Mass/Vol]93 mg/dL74 - 100 mg/dLBON [facility] urea (BUN)on 43-74-8416Uzty nitrogen [Mass/Vol]12 mg/dL8 - 26 mg/dLBON [facility] Basic Metab w/rfx MGon 69-32-2067Gwcxu gap [Moles/Vol]9 mmol/LNormal9-17[facility]. [facility] HospitalComment on above:Performed By: #### BMPX #### [facility] [address] [place] [address] Metalworking Specialist: CHRISTINA Dunnalcium [Mass/Vol]8.1 mg/dLLow8.6-10.4[facility]. [facility] HospitalComment on above:Performed By: #### BMPX #### [facility] [employer] [address] [place] [address] Metalworking Specialist: CHRISTINA Dunnhloride [Moles/Vol]102 mmol/HCbjcnr85-103NiwuuSt. Vincent HospitalComment on above:Performed By: #### BMPX #### [facility] [employer] [address] [place] [id number] Metalworking Specialist: Bret Vazquez MDCO2 [Moles/Vol]26 mmol/XRhytmr66-93NqhrfSt. Vincent HospitalComment on above:Performed By: #### BMPX #### [facility] [address] [place] [address] [employer] Specialist: CHRISTINA Dunnreatinine [Mass/Vol]0.59 mg/dLLow0.70-1.20[facility]. [facility] HospitalComment on above:Performed By: #### BMPX #### [facility] [address] [place] [id number] Metalworking Specialist: Bret Vazquez MDGFR/1.73 sq M.predicted among non-blacks MDRD (S/P/Bld) [Vol rate/Area]mL/min/{1.73_m2}Normal>60MerCoast Plaza HospitalComment on above:Result Comment: Effective Jul 26, 2022 These results [...] or following therapy that affects renal tubular secretion.Performed By: #### BMPX #### [address] [address] Metal[employer] Specialist: Bret Vazquez MDGlucose [Mass/Vol]93 mg/uAGcjtca63-10KuwkoSt. Mary Regional Medical CenterComment on above:Performed By: #### BMPX #### [address] [address] Metalworking Specialist: Bret Vazquez MDPotassium [Moles/Vol]4.3 mmol/LNormal3.7-5.3 [facility] [facility] HospitalComment on above:Performed By: #### BMPX #### [address] [address] [employer]working Specialist: Bret Vazquez MDSodium [Moles/Vol]137 mmol/PHvqrjb699-195KvvlrSt. Vincent HospitalComment on above:Performed By: #### BMPX #### [address] [address] Metalworking Specialist: Bret Vazquez MDUrea nitrogen [Mass/Vol]9 mg/dLNormal8-23St. Vincent HospitalComment on above:Performed By: #### BMPX #### [address] [address] Metalworking Specialist: Bret Vazquez [facility] with Diffon 67-33-7121Gji. Basophil0.04 k/uL Normal0.00-0.20St. Vincent HospitalComment on above:Performed By: #### ERTPF, CK, ECENZ, VD25 #### [facility] wiMAN [address] [place] [address] Metalworking Specialist: MDAbs. MonaImm.Granulocyte<0.64Uclqoq7.00-0.30St. Vincent HospitalComment on above:Performed By: #### ERTPF, CK, ECENZ, VD25 #### [address] [address] Metalworking Specialist: MDAbs. MonaNeutrophil (Seg)4.45 k/uLNormal1.50-8.10 [facility]. Vincent HospitalComment on above:Performed By: #### ERTPF, CK, ECENZ, VD25 #### [place] [address] Metalworking Specialist: Bret Vazquez MDBasophils/100 WBC (Bld)1 %Normal0-2MSt. Mary Regional Medical CenterComment on above:Performed By: #### ERTPF, CK, ECENZ, VD25 #### [place] [address] Metalworking Specialist: Bret Vazquez MDEosinophils (Bld) [#/Vol]0.11 10*3/uLNormal 0.00-0.44St. Vincent HospitalComment on above:Performed By: #### ERTPF, CK, ECENZ, VD25 #### [place] [address] Metalworking Specialist: RAYNE Dunnosinophils/100 WBC (Bld)2 %Normal1-4St. Vincent HospitalComment on above:Performed By: #### ERTPF, CK, ECENZ, VD25 #### [place] [address] Metalworking Specialist: Bret Vazquez MDErythrocyte distribution width (RBC) [Ratio]14.5 %High11.8-14.4St. Vincent HospitalComment on above:Performed By: #### ERTPF, CK, ECENZ, VD25 #### [address] [address] Metalworking Specialist: Bret Vazquez MDHematocrit (Bld) [Volume fraction]33.5 %Low 40.7-50.3Msouthwest general health centery Promise Hospital Of East Los AngelesComment on above:Performed By: #### ERTPF, CK, ECENZ, VD25 #### [address] [address] Metalworking Specialist: Bret Vazquez MDHemoglobin (Bld) [Mass/Vol]10.8 g/dLLow13.0-17.0 St[facility] Vincent HospitalComment on above:Performed By: #### ERTPF, CK, ECENZ, VD25 #### [address] [address] Metalworking Specialist: Radha Dunnmature granulocytes/100 WBC (Bld)0 %Normal0 St. Vincent HospitalComment on above:Performed By: #### ERTPF, CK, ECENZ, VD25 #### [address] [address] Metalworking Specialist: Bret Vazquez MDLymphocytes (Bld) [#/Vol]1.28 10*3/uLNormal 1.10-3.70St. Vincent HospitalComment on above:Performed By: #### ERTPF, CK, ECENZ, VD25 #### [address] [address] Metalworking Specialist: Cristina Dunnmphocytes/100 WBC (Bld)19 %Bgt70-14PqqzcSt. Vincent HospitalComment on above:Performed By: #### ERTPF, CK, ECENZ, VD25 #### [address] [address] Metalworking Specialist: MARGARET DunnCH (RBC) [Entitic mass]29.[address] diDepttl00.2-33.5 St[facility] Vincent HospitalComment on above:Performed By: #### ERTPF, CK, ECENZ, VD25 #### [facility] wiMAN [address] [place] [address] Metalworking Specialist: MARGARET DunnCHC (RBC) [Mass/Vol]32.2 g/cSCygcmu67.4-34.8 [facility] HospitalComment on above:Performed By: #### ERTPF, CK, ECENZ, VD25 #### [place] [address] Metalworking Specialist: MARGARET DunnCV (RBC) [Entitic vol]90.[address]axfv66.6-102.9 [address] [facility] HospitalComment on above:Performed By: #### ERTPF, CK, ECENZ, VD25 #### [place] [address] Metalworking Specialist: Bret Vazquez MDMonocytes (Bld) [#/Vol]0.70 10*3/uLNormal 0.10-1.20St. Vincent HospitalComment on above:Performed By: #### ERTPF, CK, ECENZ, VD25 #### [place] [address] Metalworking Specialist: MARGARET Dunnonocytes/100 WBC (Bld)11 %Normal3-12St. Vincent HospitalComment on above:Performed By: #### ERTPF, CK, ECENZ, VD25 #### [place] [address] Metalworking Specialist: Manuela Dunnutrophil (Seg)67 %Rzeh86-89VaoazSt. Vincent HospitalComment on above:Performed By: #### ERTPF, CK, ECENZ, VD25 #### [place] [address] Metalworking Specialist: NELSON DunnBC Automated0.0 per [address] Vincent HospitalComment on above:Performed By: #### ERTPF, CK, ECENZ, VD25 #### [address] [address] Metalworking Specialist: Soy Dunnteshruthi mean volume (Bld) [Entitic vol]10.3 fL Normal8.1-13.5St. Vincent HospitalComment on above:Performed By: #### ERTPF, CK, ECENZ, VD25 #### [address] [address] Metalworking Specialist: Soy Dunntelets (Bld) [#/Vol]236 10*3/rVLicjtt139-321 St. [facility] HospitalComment on above:Performed By: #### ERTPF, CK, ECENZ, VD25 #### [address] [address] Metalworking Specialist: LIZZ DunnBC (Bld) [#/Vol]3.72 10*6/uLLow4.21-5.77St. [facility] HospitalComment on above:Performed By: #### ERTPF, CK, ECENZ, VD25 #### [address] [address] Metalworking Specialist: LUCITA Dunn morphology finding Nom (Bld)ANISOCYTOSIS PRESENTNormalSt. Vincent HospitalComment on above:Performed By: #### ERTPF, CK, ECENZ, VD25 #### [address] [address] Metalworking Specialist: MAGDALENO DunnBC (Bld) [#/Vol]6.6 10*3/uLNormal3.5-11.3MSt. Mary Regional Medical CenterComment on above:Performed By: #### ERTPF, CK, ECENZ, VD25 #### [facility] [address] [place] [address] Metalworking Specialist: CHRISTINA Dunnomp Metabolic Pr/rfx MGon 64-42-7929Gkxtljs [Mass/Vol]2.6 g/dLLow3.5-5.2[facility] Of East Los AngelesComment on above: Performed By: #### ERTPF, CK, ECENZ, VD25 #### [facility] [address] [place] [address] Metalworking Specialist: Bret Vazquez MDAlbumin/Glob Ratio1.4Grupec4.0-2.5St. Vincent HospitalComment on above:Performed By: #### ERTPF, CK, ECENZ, VD25 #### [address] [address] Metalworking Specialist: Erin Dunnline Mhmd383 U/TOqymdo11-006KgxmaSt. Vincent HospitalComment on above:Performed By: #### ERTPF, CK, ECENZ, VD25 #### [address] [address] Metalworking Specialist: Bret Vazquez MDALT [Catalytic activity/Vol]7 U/LNormal5-41St. Vincent HospitalComment on above:Performed By: #### ERTPF, CK, ECENZ, VD25 #### [facility] wi[facility] [address] [place] [address] Metalworking Specialist: Bret Vazquez MDAnion gap [Moles/Vol]7 mmol/LLow9-17St. Vincent HospitalComment on above:Performed By: #### ERTPF, CK, ECENZ, VD25 #### [facility] wiMAN [address] [place] [address] Metalworking Specialist: Bret Vazquez MDAST [Catalytic activity/Vol]13 U/LNormal<40St. Vincent HospitalComment on above:Performed By: #### ERTPF, CK, ECENZ, VD25 #### [facility] [address] [place] [address] Metalworking Specialist: Bret Vazquez MDBilirubin [Mass/Vol]0.9 mg/dLNormal0.3-1.2MSt. Mary Regional Medical CenterComment on above:Performed By: #### ERTPF, CK, ECENZ, VD25 #### [facility] [address] [place] [address] Metalworking Specialist: CHRISTINA Dunnalcium [Mass/Vol]8.0 mg/dLLow8.6-10.4St. Vincent HospitalComment on above:Performed By: #### ERTPF, CK, ECENZ, VD25 #### [facility] [address] [place] [address] Metalworking Specialist: CHRISTINA Dunnhloride [Moles/Vol]103 mmol/PWvmvbc08-256KagxySt. Vincent HospitalComment on above:Performed By: #### ERTPF, CK, ECENZ, VD25 #### [facility] [address] [place] [address] Metalworking Specialist: Bret Vazquez MDCO2 [Moles/Vol]25 mmol/MLfeswc62-33BataiSt. Vincent HospitalComment on above:Performed By: #### ERTPF, CK, ECENZ, VD25 #### [facility] [address] [place] [address] Metalworking Specialist: CHRISTINA Dunnreatinine [Mass/Vol]0.67 mg/dLLow0.70-1.20St. [facility] HospitalComment on above:Performed By: #### ERTPF, CK, ECENZ, VD25 #### [facility] [address] [place] [address] Metalworking Specialist: Bret Vazquez MDGFR/1.73 sq M.predicted among non-blacks MDRD (S/P/Bld) [Vol rate/Area]mL/min/{1.73_m2}Normal>60St. Vincent HospitalComment on above:Result Comment: Effective Jul 26, 2022 These results [...] or following therapy that affects renal tubular secretion.Performed By: #### ERTPF, CK, ECENZ, VD25 #### [place] [address] Metalworking Specialist: Bret Vazquez MDGlucose [Mass/Vol]99 mg/xOXvdmyp11-76SinkzSt. Mary Regional Medical CenterComment on above:Performed By: #### ERTPF, CK, ECENZ, VD25 #### [place] [address] Metalworking Specialist: Bret Vazquez MDPotassium [Moles/Vol]4.3 mmol/LNormal3.7-5.3 [facility] HospitalComment on above:Performed By: #### ERTPF, CK, ECENZ, VD25 #### [place] [address] Metalworking Specialist: Bret Vazquez MDProtein [Mass/Vol]4.7 g/dLLow6.4-8.3MSt. Mary Regional Medical CenterComment on above:Performed By: #### ERTPF, CK, ECENZ, VD25 #### [place] [address] Metalworking Specialist: Bret Vazquez MDSodium [Moles/Vol]135 mmol/XZfyptz372-907ErbtoSt. Vincent HospitalComment on above:Performed By: #### ERTPF, CK, ECENZ, VD25 #### [facility] [address] [place], [place] [id number] Metalworking Specialist: Bret Vazquez MDUrea nitrogen [Mass/Vol]11 mg/dLNormal06-15St. Vincent HospitalComment on above:Performed By: #### ERTPF, CK, ECENZ, VD25 #### [facility] [address] [place], [place] [id number] Metalworking Specialist: ADRIAN DunnR ANKLE LEFT (MIN 3 VIEWS)on 94-16-9410UP ANKLE LEFT (MIN 3 VIEWS)History: 67 year-old male with a history of [...] Signed by: Peter Mosquera DO 10/20/22 Final resultNoZanesville City HospitalFLUORO FOR SURGICAL PROCEDURES on 95-16-3673XXWNYL FOR SURGICAL PROCEDURESRadiology exam is complete. No Radiologist dictation. Please follow up with ordering provider. Final resultNoZanesville City HospitalOPERATIVE REPORTon 10-19-2022 [address] [place] [address] OPERATIVE REPORT PATIENT NAME: INDIO COLLADO : 1955 MED REC NO: [id number] ROOM: 0238 ACCOUNT NO: [id number] ADMIT DATE: 10/19/2022 PROVIDER: Abelardo Babin DATE [...] with independent interpretation and imaging. SURGEON: Abelardo Babin DO ASSISTANTS: Benson Rausch DO, PGY-5 [...] tissue from the fracture and then using qbxyf-tv-ykkhcxmyh clamps as well as K-wires, achieved reduction. [...] laid our Integra glycosami (more content not included)...[facility] RehabilitationXR ANKLE LEFT (MIN 3 VIEWS)on 74-06-0844NQ ANKLE LEFT (MIN 3 VIEWS)EXAMINATION: THREE XRAY VIEWS OF THE LEFT ANKLE [...] Signed by: Dallin Pineda MD 10/19/22 Final resultNormalMercy Promise Hospital Of East Los AngelesAnaeroc cultureOrdered By: Molly Rivera on 42-35-6910Bldrrlze identified Anaer cx Nom (Unsp spec) [facility] HospitalBacteria identified Aer cx Nom (Unsp spec) Ordered By: Molly Rivera on 76-06-6026Dpeyjgv CultureEnterococcus faecalis [facility] HospitalBasophils Auto (Bld) [#/Vol]Ordered By: Gordon Smith on 23-92-8075Uldrtcbve (Bld) [#/Vol]0.1 10*3/uL0.0-0.2FKettering Health Main CampusBasophils/100 WBC Auto (Bld)Ordered By: Gordon Smith on 09-27-2022 Basophils/100 WBC (Bld)1.0 %.[facility] HospitalCreatinine and Glomerular filtration rate.predicted panel (S/P/Bld)Ordered By: Gordon Smith on 38-58-1229Frbzywqcvl [Mass/Vol]0.72 mg/dL0.64-1.27T[facility] HospitalEosinophils Auto (Bld) [#/Vol]Ordered By: Gordon Smith on 09-27-2022 Eosinophils (Bld) [#/Vol]0.3 10*3/uL0.0-0.45[facility] Eosinophils/100 WBC Auto (Bld)Ordered By: Gordon Smith on 09-27-2022 Eosinophils/100 WBC (Bld)4.8 %.[facility] HospitalErythrocyte distribution width Auto (RBC) [Ratio]Ordered By: Gordon Smith on 09-27-2022 Erythrocyte distribution width (RBC) [Ratio]15.8 %12.0-14.8[facility] HospitalEstimated glomerular filtration rate (GFR) non- Ordered By: Gordon Smith on 56-87-5059XME/1.73 sq M.predicted among non-blacks MDRD (S/P/Bld) [Vol rate/Area]> 60 mL/MinTwin City HospitalGram stain for investigation of transfusion reactionOrdered By: Molly Rivera on 93-15-9016Bribeplddck observation Gram stain Nom (Unsp spec)[facility] HospitalHematocrit Auto (Bld) [Volume fraction]Ordered By: Gordon Smith on 33-20-7291Smelzewqnd (Bld) [Volume fraction]29.5 %38.8-50.0[facility] HospitalHemoglobin [Mass/volume] in BloodOrdered By: Gordon Smith on 86-73-8409Vtkarvzbrm (Bld) [Mass/Vol]9.5 g/dL13.0-17.0[facility] HospitalLeukocytes [#/volume] corrected for nucleated erythrocytes in Blood by Automated counOrdered By: Gordon Smith on 15-47-3217WJB corrected for nucl RBC Auto (Bld) [#/Vol]6.3 10*3/uL4.1-10.5FKettering Health Main Campus Lymphocytes Auto (Bld) [#/Vol]Ordered By: Gordon Smith on 55-45-1436Yuwqfeohaav (Bld) [#/Vol]1.1 10*3/uL1.00-4.8[facility] HospitalLymphocytes/100 WBC Auto (Bld)Ordered By: Gordon Smith on 72-73-4246Izsmjqmtdgh/100 WBC (Bld) 17.0 %.[facility] HospitalMCH Auto (RBC) [Entitic mass]Ordered By: Gordon Smith on 27-21-8131AKV (RBC) [Entitic mass]30.4 pg27.5-35.2FKettering Health Main CampusMCHC Auto (RBC) [Mass/Vol]Ordered By: Gordon Smith on 40-51-8949FISR (RBC) [Mass/Vol]32.3 g/dL32.5-35.6FKettering Health Main CampusMCV Auto (RBC) [Entitic vol]Ordered By: Gordon Smith on 32-01-4189VFW (RBC) [Entitic vol]94.2 fL83.5-101T[facility] HospitalMonocytes Auto (Bld) [#/Vol]Ordered By: Gordon Smith on 11-21-9571Dfnswzbwp (Bld) [#/Vol] 0.6 10*3/uL0.0-0.8[facility] HospitalMonocytes/100 WBC Auto (Bld) Ordered By: Gordon Smith on 01-46-8420Oaymxjyqw/100 WBC (Bld)9.6 %.[facility] HospitalNeutrophils Auto (Bld) [#/Vol]Ordered By: Gordon Smith on 63-48-8547Oywqdptqtxe (Bld) [#/Vol]4.3 10*3/uL1.8-7.7FKettering Health Main CampusNeutrophils/100 WBC Auto (Bld)Ordered By: Gordon Smith on 09-27-2022 Neutrophils/100 WBC (Bld)67.6 %.[facility] HospitalNo Panel InformationOrdered By: Gordon Smith on 45-46-6764Zbehtzsfh GFR ()> 60 mL/MinTwin City HospitalComment on above:GFR estimated reference range: According to KDOQI guidelines, <60 ml/min/1.73m2 is sufficient todiagnose a patient with chronic kidney disease.Pharmacy Creatinine Clearance (Lcfw531.46T[facility] HospitalNucleated erythrocytes [Presence] in Blood by Automated countOrdered By: Gordon Smith on 09-27-2022 Nucleated RBC Auto Ql (Bld)0.0 /100{WBC}0-0.5FKet[facility] Campus Platelet mean volume Auto (Bld) [Entitic vol]Ordered By: Gordon Smith on 67-68-5659Indnoxjo mean volume (Bld) [Entitic vol]8.2 fL6.6-10.1FKettering Health Main CampusPlatelets Auto (Bld) [#/Vol]Ordered By: Gordon Smith on 31-92-7434Xsxlrntqz (Bld) [#/Vol]352 10*3/jC434-921QzbcmwcufTwin City HospitalRBC Auto (Bld) [#/Vol]Ordered By: Gordon Smith on 06-88-3726ZUJ (Bld) [#/Vol]3.13 10*6/uL3.90-5.60[facility]uffton Hospitalerum or plasma anion gap determinationOrdered By: Gordon Smith on 36-12-3609Oqeob gap [Moles/Vol]10.1 mmol/L6.0-15.0[facility]uffton Hospitalerum or plasma calcium measurement (mass/volume)Ordered By: Gordon Smith on 31-26-6896Ezjtowm [Mass/Vol]8.0 mg/dL8.2-10.2FOhioHealth Grove City Methodist Hospitalerum or plasma chloride measurement (moles/volume)Ordered By: Gordon Smith on 09-27-2022 Chloride [Moles/Vol]105 mmol/T32-243JvjcjbipgBlanchard Valley Health System Bluffton Hospitalerum or plasma glucose measurement (mass/volume)Ordered By: Gordon Smith on 09-27-2022 Glucose [Mass/Vol]90 mg/iI28-009DeisgzzzbTwin City HospitalComment on above:ADA recommended reference rangeRandom Glucose Reference Range is dependent on time and content of last meal. Glucose of more than 200 mg/dL in a nonstressed, ambulatory subject supports the diagnosisof Diabetes Mellitus.Serum or plasma potassium measurement (moles/volume)Ordered By: Gordon Smith on 66-90-5241Iggggxhxi [Moles/Vol]4.2 mmol/L3.5-5.1FOhioHealth Grove City Methodist Hospitalerum or plasma sodium measurement (moles/volume)Ordered By: Gordon Smith on 48-94-5977Fkrnvk [Moles/Vol]138 mmol/N538-662TgpfwibupBlanchard Valley Health System Bluffton Hospitalerum or plasma total carbon dioxide measurement (moles/volume)Ordered By: Gordon Smith on 16-82-1126AW1 [Moles/Vol]27.1 mmol/L22.0-30.0[facility] Hospitalerum or plasma urea nitrogen measurement (mass/volume)Ordered By: Gordon Smith on 41-33-9958Ssde nitrogen [Mass/Vol]9 mg/dL9-23T[facility] HospitalWBC Auto (Bld) [#/Vol]Ordered By: Gordon Smith on 75-73-8868EDJ (Bld) [#/Vol]6.3 10*3/uL4.1-10.5FKettering Health [facility] Campus Laboratory - Hematology and Cell countsOrdered By: Gordon Smith on 09-21-2022 Nucleated RBC/100 WBC (Bld) [Ratio]0.1 %0-0.5FKettering [facility] Campus Fecal occult blood detection by immunochemistryOrdered By: Tram Perez on 45-17-9153Qnwjvydzai.gastrointestinal Ql (Stl)[facility] Activated partial thromboplastin time (aPTT) in platelet poor plasma by coagulation aOrdered By: Tram Perez on 63-58-6946oRRC Coag (PPP) [Time]33.8 s25.1-36.5FKettering Health Main CampusLaboratory - CoagulationOrdered By: Tram Perez on 08-80-1695VQ Coag (PPP) [Time]13.1 s9.0-12.9[facility] HospitalPlatelet poor plasma international normalized ratio (INR) by coagulation assay (relatOrdered By: Tram Perez on 93-59-8047FYA Coag (PPP) [Relative time]1.2 {INR}[facility] HospitalComment on above: INR Therapeutic Range A) Pre- and Peroperative OAT started two weeks before surgery. NOT HIP SURGERY: 1.5 - 2.5 HIP SURGERY: 2 - 3B) Primary and secondary prevention of venous THROMBOSIS: 2 - 3C) Active venous thrombosis, pulmonary embolismand prevention of recurrent venous thrombosis: 2 - 3D) Prevention of arterial thromboembolismincluding patients with mechanical heart valves: 3 - 4.5 Glucose Glucometer (BldC) [Mass/Vol]Ordered By: Gordon Smith on 09-14-2022 Glucose [Mass/Vol]97 mg/dLTwin City HospitalComment on above: Random Glucose Reference Range is dependent on time and content of last meal. Glucose of more than 200 mg/dL in a nonstressed, ambulatory subject supports the diagnosis of Diabetes Mellitus.No Panel InformationOrdered By: Gordon Smith on 78-71-0600Thekfqr Glucose #2 CommentWill notify /HaydeeKettering Health Main CampusBedside Glucose CommentGlu2: cleaned meterTwin City HospitalAlbumin [Mass/volume] in Serum or PlasmaOrdered By: Gordon Smith on 28-32-6871Qfbjcqv [Mass/Vol]1.7 g/dL3.2-5.5FKet[facility] Campus Globulin Calc (S) [Mass/Vol]Ordered By: Gordon Smith on 97-02-9225Tlbekrfu (S) [Mass/Vol]2.2 g/dLTwin City HospitalProtein [Mass/volume] in Serum or PlasmaOrdered By: Gordon Smith on 20-11-8911Chgodhd [Mass/Vol]3.9 g/dL 6.1-7.9[facility]uff[facility] Hospitalerum or plasma alanine aminotransferase measurement without P-5'-P (enzymatic activiOrdered By: Gordon Smith on 56-99-8853KUF No additional P-5'-P [Catalytic activity/Vol]15 U/F13-28JffdylyyoBlanchard Valley Health System Bluffton Hospitalerum or plasma albumin/globulin mass ratioOrdered By: Gordon Smith on 35-67-0130Mrjqmen/Globulin [Mass ratio]0.8 {ratio}[facility] Hospitalerum or plasma alkaline phosphatase measurement (enzymatic activity/volume)Ordered By: Gordon Smith on 82-89-4818HTU [Catalytic activity/Vol]58 U/S49-51DmmdwncniBlanchard Valley Health System Bluffton Hospitalerum or plasma aspartate aminotransferase measurement (enzymatic activity/volume)Ordered By: Gordon Smith on 73-91-4301XVT [Catalytic activity/Vol]13 U/V11-91ImhfvyerqBlanchard Valley Health System Bluffton Hospitalerum or plasma prealbumin measurement (mass/volume) Ordered By: Gordon Smith on 92-91-8561Hhemfyurcw [Mass/Vol]9.3 mg/dL18.0-38.0 [facility] Hospitalerum or plasma total bilirubin measurement (mass/volume)Ordered By: Gordon Smith on 15-48-5811Pokxpighz [Mass/Vol]1.5 mg/dL 0.3-1.2FKettering Health Main CampusComment on above:Samples from patients who have taken Naproxen have shown spurious elevation in Total Bilirubin levels. A metabolite of Naproxen, O-desmethylnaproxen, has been shown to interfere with the Francy method for measuring Total Bilirubin.Basic Metab w/rfx MGon 59-82-1528Hqftd gap [Moles/Vol]5 mmol/LLow9-17[facility] Comment on above:Performed By: #### IOCAL, CDP, MG, LACTIC, ALICIA, BNP, BMP #### [facility] [address] [place] [address] Metalworking Specialist: YULIA Dunnerformed By: #### ERTKLARISSA HIGGINSEG #### [facility] [address] [place] [address] Metalworking Specialist: CHRISTINA Dunnalcium [Mass/Vol]7.8 mg/dLLow8.6-10.4[facility]. [facility] HospitalComment on above:Performed By: #### IOCAL, CDP, MG, LACTIC, ALICIA, BNP, BMP #### [facility] [address] [place] [address] Metalworking Specialist: YULIA Dunnerformed By: #### ERTRONALDO GHLTEG #### [facility] [address] [place] [address] Metalworking Specialist: CHRISTINA Dunnhloride [Moles/Vol]105 mmol/XPxnfjh88-887XcvujSt. Vincent HospitalComment on above:Performed By: #### IOCAL, CDP, MG, LACTIC, ALICIA, BNP, BMP #### [facility] [address] [place] [address] Metalworking Specialist: YULIA Dunnerformed By: #### ERTPF GHLTEG #### [employer] [address] [place] [address] Metalworking Specialist: CHRISTINA DunnO2 [Moles/Vol]24 mmol/UTipiog57-86DzlbySt. Vincent HospitalComment on above:Performed By: #### IOCAL, CDP, MG, LACTIC, ALICIA, BNP, BMP #### [address] [address] Metalworking Specialist: YULIA Dunnerformed By: #### ERTRANDOLPH HIGGINSLTEG #### [address] [address] Metalworking Specialist: CHRISTINA Dunnreatinine [Mass/Vol]0.77 mg/dLNormal0.70-1.20 [facility] HospitalComment on above:Performed By: #### IOCAL, CDP, MG, LACTIC, ALICIA, BNP, BMP #### [address] [address] Metalworking Specialist: YULIA Dunnerformed By: #### ERTRONALDO GHLTEG #### [address] [address] Metalworking Specialist: Bret Vazquez MDGFR/1.73 sq M.predicted among non-blacks MDRD (S/P/Bld) [Vol rate/Area]mL/min/{1.73_m2}Normal>60St. [facility] HospitalComment on above:Result Comment: Effective Jul 26, 2022 These results [...] or following therapy that affects renal tubular secretion.Performed By: #### IOCAL, CDP, MG, LACTIC, ALICIA, BNP, BMP #### [facility] [address] [place] [address] Metalworking Specialist: YULIA Dunnerformed By: #### ERTPF GHLTEG #### [address] [address] Metalworking Specialist: Bret Vazquez MDGlucose [Mass/Vol]85 mg/gWNwihkq85-65DvxqxSt. Mary Regional Medical CenterComment on above:Performed By: #### IOCAL, CDP, MG, LACTIC, ALICIA, BNP, BMP #### [place] [address] Metalworking Specialist: YULIA Dunnerformed By: #### ERTPChantel GHLTEG #### [place] [address] Metalworking Specialist: YULIA Dunnotassium [Moles/Vol]4.4 mmol/LNormal3.7-5.3 [facility] HospitalComment on above:Performed By: #### IOCAL, CDP, MG, LACTIC, ALICIA, BNP, BMP #### [place] [address] Metalworking Specialist: YULIA Dunnerformed By: #### ERTPChantel GHLTEG #### [place] [address] Metalworking Specialist: Bret Vazquez MDSodium [Moles/Vol]134 mmol/MOxx231-337IffocSt. Vincent HospitalComment on above:Performed By: #### IOCAL, CDP, MG, LACTIC, ALICIA, BNP, BMP #### [address] [address] Metalworking Specialist: YULIA Dunnerformed By: #### ERTPF GHLTEG #### [address] [address] Metalworking Specialist: Bret Vazquez MDUrea nitrogen [Mass/Vol]17 mg/dLNormal8-23St. [facility] HospitalComment on above:Performed By: #### IOCAL, CDP, MG, LACTIC, ALICIA, BNP, BMP #### [facility] [address] [place] [address] Metalworking Specialist: YULIA Dunnerformed By: #### ERTPF GHLTEG #### [facility] [address] [place] [address] Metalworking Specialist: CHRISTINA Dunn with Diffon 08-95-4242Hhr. Basophil0.06 k/uL Normal0.00-0.20St. [facility] HospitalComment on above:Performed By: #### IOCAL, CDP, MG, LACTIC, ALICIA, BNP, BMP #### [facility] [address] [place] [address] Metalworking Specialist: YULIA Dunnerformed By: #### ERTPChantel GHLTEG #### [address] [address] Metalworking Specialist: MDAbs. MonaImm.Granulocyte0.04 k/uLNormal0.00-0.30[facility]. [facility] HospitalComment on above:Performed By: #### IOCAL, CDP, MG, LACTIC, ALICIA, BNP, BMP #### [address] [address] Metalworking Specialist: Ute Dunnformed By: #### ERTPF GHLTEG #### [address] [address] Metalworking Specialist: MDAbs. MonaNeutrophil (Seg)3.45 k/uLNormal1.50-8.10 [facility] HospitalComment on above:Performed By: #### IOCAL, CDP, MG, LACTIC, ALICIA, BNP, BMP #### [facility] [address] [place] [address] Metalworking Specialist: Ute Dunnformed By: #### ERTPF, GHLTEG #### [facility] [address] [place] [address] Metalworking Specialist: Bret Vazquez MDBasophils/100 WBC (Bld)1 %Normal0-2MSt. Mary Regional Medical CenterComment on above:Performed By: #### IOCAL, CDP, MG, LACTIC, ALICIA, BNP, BMP #### [place] [address] Metalworking Specialist: YULIA Dunnerformed By: #### ERTPF GHLTEG #### [place] [address] Metalworking Specialist: Bret Vazquez MDEosinophils (Bld) [#/Vol]0.36 10*3/uLNormal 0.00-0.44St. [facility] HospitalComment on above:Performed By: #### IOCAL, CDP, MG, LACTIC, ALICIA, BNP, BMP #### [place] [address] Metalworking Specialist: YULIA Dunnerformed By: #### ERTPChantel GHLTEG #### [place] [address] Metalworking Specialist: RAYNE Dunnosinophils/100 WBC (Bld)6 %High1-4St. [facility] HospitalComment on above:Performed By: #### IOCAL, CDP, MG, LACTIC, ALICIA, BNP, BMP #### [place] [address] Metalworking Specialist: YULIA Dunnerformed By: #### ERTPF GHLTEG #### [place] [address] Metalworking Specialist: Bret Vazquez MDErythrocyte distribution width (RBC) [Ratio]15.8 %High11.8-14.4St. [facility] HospitalComment on above:Performed By: #### IOCAL, CDP, MG, LACTIC, ALICIA, BNP, BMP #### [address] [address] Metalworking Specialist: YULIA Dunnerformed By: #### ERTPF GHLTEG #### [address] [address] Metalworking Specialist: Bret Vazquez MDHematocrit (Bld) [Volume fraction]25.2 %Low 40.7-50.3[facility] Of East Los AngelesComment on above:Performed By: #### IOCAL, CDP, MG, LACTIC, ALICIA, BNP, BMP #### [place] [address] Metalworking Specialist: YULIA Dunnerformed By: #### ERTPF GHLTEG #### [place] [address] Metalworking Specialist: Bret Vazquez MDHemoglobin (Bld) [Mass/Vol]7.6 g/dLLow13.0-17.0 [facility] HospitalComment on above:Performed By: #### IOCAL, CDP, MG, LACTIC, ALICIA, BNP, BMP #### [address] [address] Metalworking Specialist: YULIA Dunnerformed By: #### ERTPF GHLTEG #### [address] [address] Metalworking Specialist: Radha Dunnmature granulocytes/100 WBC (Bld)1 %Yqnl0OycxxCoast Plaza HospitalComment on above:Performed By: #### IOCAL, CDP, MG, LACTIC, ALICIA, BNP, BMP #### [address] [address] Metalworking Specialist: YULIA Dunnerformed By: #### ERTPF, GHLTEG #### [address] [address] Metalworking Specialist: Cristina Dunnmphocytes (Bld) [#/Vol]2.01 10*3/uLNormal 1.10-3.70St. [facility] HospitalComment on above:Performed By: #### IOCAL, CDP, MG, LACTIC, ALICIA, BNP, BMP #### [place] [address] Metalworking Specialist: YULIA Dunnerformed By: #### ERTPF, GHLTEG #### [place] [address] Metalworking Specialist: Cristina Dunnmphocytes/100 WBC (Bld)31 %Hcafir27-47AikaaSt. Vincent HospitalComment on above:Performed By: #### IOCAL, CDP, MG, LACTIC, ALICIA, BNP, BMP #### [place] [address] Metalworking Specialist: YULIA Dunnerformed By: #### ERTPF, GHLTEG #### [place] [address] Metalworking Specialist: MARGARET DunnCH (RBC) [Entitic mass]31.7 gjJwtcvn89.2-33.5 [facility] HospitalComment on above:Performed By: #### IOCAL, CDP, MG, LACTIC, ALICIA, BNP, BMP #### [place] [address] Metalworking Specialist: YULIA Dunnerformed By: #### ERTPF, GHLTEG #### [place] [address] Metalworking Specialist: MARGARET DunnCHC (RBC) [Mass/Vol]30.2 g/gVHzmdma74.4-34.8 [facility] HospitalComment on above:Performed By: #### IOCAL, CDP, MG, LACTIC, ALICIA, BNP, BMP #### [address] [address] Metalworking Specialist: YULIA Dunnerformed By: #### ERTPF GHLTEG #### [address] [address] Metalworking Specialist: MARGARET DunnCV (RBC) [Entitic vol]105.[address] qEXsuq31.6-102.9 [facility] HospitalComment on above:Performed By: #### IOCAL, CDP, MG, LACTIC, ALICIA, BNP, BMP #### [address] [address] Metalworking Specialist: YULIA Dunnerformed By: #### ERTPF GHLTEG #### [place] [address] Metalworking Specialist: Bret Vazquez MDMonocytes (Bld) [#/Vol]0.62 10*3/uLNormal 0.10-1.20[facility]. [facility] HospitalComment on above:Performed By: #### IOCAL, CDP, MG, LACTIC, ALICIA, BNP, BMP #### [place] [address] Metalworking Specialist: YULIA Dunnerformed By: #### ERTPF, GHLTEG #### [place] [address] Metalworking Specialist: Bret Vazquez MDMonocytes/100 WBC (Bld)10 %Normal3-12St. [facility] HospitalComment on above:Performed By: #### IOCAL, CDP, MG, LACTIC, ALICIA, BNP, BMP #### [address] [address] Metalworking Specialist: Ute Dunnformed By: #### ERTPF, GHLTEG #### [address] [address] Metalworking Specialist: Manuela Dunnutrophil (Seg)53 %Iiyijm53-07QbjyqSt. Vincent HospitalComment on above:Performed By: #### IOCAL, CDP, MG, LACTIC, ALICIA, BNP, BMP #### [address] [address] Metalworking Specialist: YULIA Dunnerformed By: #### ERTPF, GHLTEG #### [address] [address] Metalworking Specialist: NELSON DunnBC Automated0.0 per [address] Vincent HospitalComment on above:Performed By: #### IOCAL, CDP, MG, LACTIC, ALICIA, BNP, BMP #### [address] [address] Metalworking Specialist: Ute Dunnformed By: #### ERTPF GHLTEG #### [address] [address] Metalworking Specialist: Elle Dunn mean volume (Bld) [Entitic vol]10.3 fL Normal8.1-13.5St. Vincent HospitalComment on above:Performed By: #### IOCAL, CDP, MG, LACTIC, ALICIA, BNP, BMP #### [address] [address] Metalworking Specialist: Ute Dunnformed By: #### ERTPF GHLTEG #### [address] [address] Metalworking Specialist: Soy Dunntelets (Bld) [#/Vol]245 10*3/hJJbvkqc772-168 [facility]. [facility] HospitalComment on above:Performed By: #### IOCAL, CDP, MG, LACTIC, ALICIA, BNP, BMP #### [address] [address] Metalworking Specialist: YULIA Dunnerformed By: #### ERTPF, GHLTEG #### [address] [address] Metalworking Specialist: LUCITA Dunn (Bld) [#/Vol]2.40 10*6/uLLow4.21-5.77St. Vincent HospitalComment on above:Performed By: #### IOCAL, CDP, MG, LACTIC, ALICIA, BNP, BMP #### [address] [address] Metalworking Specialist: YULIA Dunnerformed By: #### ERTPF GHLTEG #### [address] [address] Metalworking Specialist: LUCITA Dunn morphology finding Nom (Bld)ANISOCYTOSIS PRESENTNormalSt. Vincent HospitalComment on above:Result Comment: MACROCYTOSIS PRESENTPerformed By: #### IOCAL, CDP, MG, LACTIC, ALICIA, BNP, BMP #### [address] [address] Metalworking Specialist: Ute Dunnformed By: #### ERTPF GHLTEG #### [address] [address] Metalworking Specialist: LINDA Dunn (Bld) [#/Vol]6.5 10*3/uLNormal3.5-11.3MSt. Mary Regional Medical CenterComment on above:Performed By: #### IOCAL, CDP, MG, LACTIC, ALICIA, BNP, BMP #### [address] [address] Metalworking Specialist: Ute Dunnformed By: #### ERTPF, GHLTEG #### [address] [address] Metalworking Specialist: Bret Vazquez MDBasijake Metab w/rfx MGon 14-51-8336Bsfyd gap [Moles/Vol]6 mmol/LLow9-17St. Vincent HospitalComment on above: Performed By: #### BMPX, CDP #### [address] [address] Metalworking Specialist: YULIA Dunnerformed By: #### ERTPF, CK, ECENZ, VD25 #### [address] [address] Metalworking Specialist: CHRISTINA Dunnalcium [Mass/Vol]7.5 mg/dLLow8.6-10.4St. Vincent HospitalComment on above:Performed By: #### BMPX, CDP #### [address] [address] Metalworking Specialist: YULIA Dunnerformed By: #### ERTPF, CK, ECENZ, VD25 #### [address] [address] Metalworking Specialist: CHRISTINA Dunnhloride [Moles/Vol]109 mmol/YOfya62-296SawlvSt. Vincent HospitalComment on above:Performed By: #### BMPX, CDP #### [address] [address] Metalworking Specialist: YULIA Dunnerformed By: #### ERTPF, CK, ECENZ, VD25 #### [facility] [address] [place] [address] Metalworking Specialist: Bret Vazquez MDCO2 [Moles/Vol]25 mmol/UAbfggg79-13TnzxpSt. Vincent HospitalComment on above:Performed By: #### BMPX, CDP #### [address] [address] Metalworking Specialist: YULIA Dunnerformed By: #### ERTPF, CK, ECENZ, VD25 #### [address] [address] Metalworking Specialist: CHRISTINA Dunnreatinine [Mass/Vol]0.63 mg/dLLow0.70-1.20St. [facility] HospitalComment on above:Performed By: #### BMPX, CDP #### [address] [address] Metalworking Specialist: YULIA Dunnerformed By: #### ERTPF, CK, ECENZ, VD25 #### [address] [address] Metalworking Specialist: Bret Vazquez MDGFR/1.73 sq M.predicted among non-blacks MDRD (S/P/Bld) [Vol rate/Area]mL/min/{1.73_m2}Normal>60St. Vincent HospitalComment on above:Result Comment: Effective Jul 26, 2022 These results [...] or following therapy that affects renal tubular secretion.Performed By: #### BMPX, CDP #### [address] [address] Metalworking Specialist: YULIA Dunnerformed By: #### ERTPF, CK, ECENZ, VD25 #### [address] [address] Metalworking Specialist: Bret Vazquez MDGlucose [Mass/Vol]88 mg/zOMiplam07-33LkxpkSt. Mary Regional Medical CenterComment on above:Performed By: #### BMPX, CDP #### [address] [address] Metalworking Specialist: Ute Dunnformed By: #### ERTPF, CK, ECENZ, VD25 #### [address] [address] Metalworking Specialist: YULIA Dunnotassium [Moles/Vol]4.3 mmol/LNormal3.7-5.3 [facility] HospitalComment on above:Performed By: #### BMPX, CDP #### [address] [address] Metalworking Specialist: Ute Dunnformed By: #### ERTPF, CK, ECENZ, VD25 #### [address] [address] Metalworking Specialist: Bret Vazquez MDSodium [Moles/Vol]140 mmol/NOlgltf247-897GgyowSt. Vincent HospitalComment on above:Performed By: #### BMPX, CDP #### [address] [address] Metalworking Specialist: Ute Dunnformed By: #### ERTPF, CK, ECENZ, VD25 #### [address] [address] Metalworking Specialist: Bret Vazquez MDUrea nitrogen [Mass/Vol]16 mg/dLNormal8-23St. [facility] HospitalComment on above:Performed By: #### BMPX, CDP #### [address] [address] Metalworking Specialist: Ute Dunnformed By: #### ERTPF, CK, ECENZ, VD25 #### [address] [address] Metalworking Specialist: JOHN PAUL Dunn with Diffon [id number]. Basophil0.09 k/uL Normal0.00-0.20St. [facility] HospitalComment on above:Performed By: #### BMPX, CDP #### [address] [address] Metalworking Specialist: YULIA Dunnerformed By: #### ERTPF, CK, ECENZ, VD25 #### [address] [address] Metalworking Specialist: Verenice Dunn.Imm.Granulocyte0.03 k/uLNormal0.00-0.30St. [facility] HospitalComment on above:Performed By: #### BMPX, CDP #### [address] [address] Metalworking Specialist: YULIA Dunnerformed By: #### ERTPF, CK, ECENZ, VD25 #### [address] [address] Metalworking Specialist: Verenice Dunn.Neutrophil (Seg)4.61 k/uLNormal1.50-8.10 [facility] HospitalComment on above:Performed By: #### BMPX, CDP #### [address] [address] Metalworking Specialist: Ute Dunnformed By: #### ERTPF, CK, ECENZ, VD25 #### [address] [address] Metalworking Specialist: Bret Vazquez MDBasophils/100 WBC (Bld)1 %Normal0-2MSt. Mary Regional Medical CenterComment on above:Performed By: #### BMPX, CDP #### [address] [address] Metalworking Specialist: Ute Dunnformed By: #### ERTPF, CK, ECENZ, VD25 #### [place] [address] Metalworking Specialist: Bret Vazquez MDEosinophils (Bld) [#/Vol]0.40 10*3/uLNormal 0.00-0.44St. [facility] HospitalComment on above:Performed By: #### BMPX, CDP #### [place] [address] Metalworking Specialist: YULIA Dunnerformed By: #### ERTPF, CK, ECENZ, VD25 #### [place] [address] Metalworking Specialist: RAYNE Dunnosinophils/100 WBC (Bld)5 %High1-4St. [facility] HospitalComment on above:Performed By: #### BMPX, CDP #### [place] [address] Metalworking Specialist: YULIA Dunnerformed By: #### ERTPF, CK, ECENZ, VD25 #### [place] [address] Metalworking Specialist: Bret Vazquez MDErythrocyte distribution width (RBC) [Ratio]16.2 %High11.8-14.4St. [facility] HospitalComment on above:Performed By: #### BMPX, CDP #### [place] [address] Metalworking Specialist: YULIA Dunnerformed By: #### ERTPF, CK, ECENZ, VD25 #### [place] [address] Metalworking Specialist: Bret Vazquez MDHematocrit (Bld) [Volume fraction]22.3 %Low 40.7-50.3[facility] East Los AngelesComment on above:Performed By: #### BMPX, CDP #### [address] [address] Metalworking Specialist: YULIA Dunnerformed By: #### ERTPF, CK, ECENZ, VD25 #### [address] [address] Metalworking Specialist: Bret Vazquez MDHemoglobin (Bld) [Mass/Vol]7.5 g/dLLow13.0-17.0 [facility] HospitalComment on above:Performed By: #### BMPX, CDP #### [address] [address] Metalworking Specialist: YULIA Dunnerformed By: #### ERTPF, CK, ECENZ, VD25 #### [address] [address] Metalworking Specialist: Butch Dunn granulocytes/100 WBC (Bld)0 %Normal0 [facility] HospitalComment on above:Performed By: #### BMPX, CDP #### [address] [address] Metalworking Specialist: YULIA Dunnerformed By: #### ERTPF, CK, ECENZ, VD25 #### [address] [address] Metalworking Specialist: Bret Vazquez MDLymphocytes (Bld) [#/Vol]1.88 10*3/uLNormal 1.10-3.70St. [facility] HospitalComment on above:Performed By: #### BMPX, CDP #### [address] [address] Metalworking Specialist: YULIA Dunnerformed By: #### ERTPF, CK, ECENZ, VD25 #### [address] [address] Metalworking Specialist: Bret Vazquez MDLymphocytes/100 WBC (Bld)24 %Afmazt11-49TojilSt. Vincent HospitalComment on above:Performed By: #### BMPX, CDP #### [address] [address] Metalworking Specialist: YULIA Dunnerformed By: #### ERTPF, CK, ECENZ, VD25 #### [address] [address] Metalworking Specialist: MARGARET DunnCH (RBC) [Entitic mass]31.8 fcZsvhpx58.2-33.5 [facility] HospitalComment on above:Performed By: #### BMPX, CDP #### [address] [address] Metalworking Specialist: YULIA Dunnerformed By: #### ERTPF, CK, ECENZ, VD25 #### [address] [address] Metalworking Specialist: SUNIL DunnC (RBC) [Mass/Vol]33.6 g/bNXtopso73.4-34.8 [facility] HospitalComment on above:Performed By: #### BMPX, CDP #### [address] [address] Metalworking Specialist: YULIA Dunnerformed By: #### ERTPF, CK, ECENZ, VD25 #### [address] [address] Metalworking Specialist: MARGARET DunnCV (RBC) [Entitic vol]94.[address]Uelixc09.6-102.9 [facility] HospitalComment on above:Performed By: #### BMPX, CDP #### [address] [address] Metalworking Specialist: YULIA Dunnerformed By: #### ERTPF, CK, ECENZ, VD25 #### [facility] [address] [place] [address] Metalworking Specialist: Bret Vazquez MDMonocytes (Bld) [#/Vol]0.84 10*3/uLNormal 0.10-1.20St. [facility] HospitalComment on above:Performed By: #### BMPX, CDP #### [facility] [address] [place] [address] Metalworking Specialist: YULIA Dunnerformed By: #### ERTPF, CK, ECENZ, VD25 #### [facility] [address] [place] [address] Metalworking Specialist: MARGARET Dunnonocytes/100 WBC (Bld)11 %Normal3-12St. [facility] HospitalComment on above:Performed By: #### BMPX, CDP #### [address] [address] Metalworking Specialist: YULIA Dunnerformed By: #### ERTPF, CK, ECENZ, VD25 #### [facility] [address] [place] [address] Metalworking Specialist: Bret Vazquez MDNeutrophil (Seg)59 %Nhdeco90-72BxdfbSt. Vincent HospitalComment on above:Performed By: #### BMPX, CDP #### [address] [address] Metalworking Specialist: YULIA Dunnerformed By: #### ERTPF, CK, ECENZ, VD25 #### [facility] [address] [place] [address] Metalworking Specialist: Bret Vazquez MDNRBC Automated0.0 per [address] [facility] HospitalComment on above:Performed By: #### BMPX, CDP #### [address] [address] Metalworking Specialist: Ute Dunnformed By: #### ERTPF, CK, ECENZ, VD25 #### [address] [address] Metalworking Specialist: Elle Dunn mean volume (Bld) [Entitic vol]10.5 fL Normal8.1-13.5St. [facility] HospitalComment on above:Performed By: #### BMPX, CDP #### [address] [address] Metalworking Specialist: Ute Dunnformed By: #### ERTPF, CK, ECENZ, VD25 #### [address] [address] Metalworking Specialist: Sylvia Dunn (Bld) [#/Vol]185 10*3/oUYzlbdm627-038 [facility] HospitalComment on above:Performed By: #### BMPX, CDP #### [address] [address] Metalworking Specialist: Ute Dunnformed By: #### ERTPF, CK, ECENZ, VD25 #### [address] [address] Metalworking Specialist: LIZZ DunnBC (Bld) [#/Vol]2.36 10*6/uLLow4.21-5.77St. [facility] HospitalComment on above:Performed By: #### BMPX, CDP #### [address] [address] Metalworking Specialist: Ute Dunnformed By: #### ERTPF, CK, ECENZ, VD25 #### [address] [address] Metalworking Specialist: LUCITA Dunn morphology finding Nom (Bld)ANISOCYTOSIS PRESENTNormalSt. Vincent HospitalComment on above:Performed By: #### BMPX, CDP #### [facility] [address] [place] [address] Metalworking Specialist: YULIA Dunnerformed By: #### ERTPF, CK, ECENZ, VD25 #### [address] [address] Metalworking Specialist: Bret Vazquez MDWBC (Bld) [#/Vol]7.9 10*3/uLNormal3.5-11.3MSt. Mary Regional Medical CenterComment on above:Performed By: #### BMPX, CDP #### [address] [address] Metalworking Specialist: YULIA Dunnerformed By: #### ERTPF, CK, ECENZ, VD25 #### [address] [address] Metalworking Specialist: Roula Dunn Metab w/rfx MGon 23-37-6766Thcey gap [Moles/Vol]4 mmol/LLow9-17St. [facility] HospitalComment on above: Performed By: #### IOCAL, CDP, MG, LACTIC, ALICIA, BNP, BMP #### [address] [address] Metalworking Specialist: YULIA Dunnerformed By: #### ERTPF, CK, ECENZ, VD25 #### [address] [address] Metalworking Specialist: CHRISTINA Dunnalcium [Mass/Vol]7.5 mg/dLLow8.6-10.4St. [facility] HospitalComment on above:Performed By: #### IOCAL, CDP, MG, LACTIC, ALICIA, BNP, BMP #### [address] [address] Metalworking Specialist: YULIA Dunnerformed By: #### ERTPF, CK, ECENZ, VD25 #### [address] [address] Metalworking Specialist: Bret Vazquez [facility] – ENIDhloride [Moles/Vol]105 mmol/FYosawa20-623PczexSt. Vincent HospitalComment on above:Performed By: #### IOCAL, CDP, MG, LACTIC, ALICIA, BNP, BMP #### [address] [address] Metalworking Specialist: YULIA Dunnerformed By: #### ERTPF, CK, ECENZ, VD25 #### [address] [address] Metalworking Specialist: Bret Vazquez MDCO2 [Moles/Vol]26 mmol/NRcfrlf17-77UeslgSt. Vincent HospitalComment on above:Performed By: #### IOCAL, CDP, MG, LACTIC, ALICIA, BNP, BMP #### [address] [address] Metalworking Specialist: YULIA Dunnerformed By: #### ERTPF, CK, ECENZ, VD25 #### [address] [address] Metalworking Specialist: Bret Vazquez [facility] – ENIDreatinine [Mass/Vol]0.80 mg/dLNormal0.70-1.20 [facility] HospitalComment on above:Performed By: #### IOCAL, CDP, MG, LACTIC, ALICIA, BNP, BMP #### [address] [address] Metalworking Specialist: Ute Dunnformed By: #### ERTPF, CK, ECENZ, VD25 #### [address] [address] Metalworking Specialist: Bret Vazquez MDGFR/1.73 sq M.predicted among non-blacks MDRD (S/P/Bld) [Vol rate/Area]mL/min/{1.73_m2}Normal>60MerCoast Plaza HospitalComment on above:Result Comment: Effective Jul 26, 2022 These results [...] or following therapy that affects renal tubular secretion.Performed By: #### IOCAL, CDP, MG, LACTIC, ALICIA, BNP, BMP #### [address] [address] Metalworking Specialist: YULIA Dunnerformed By: #### ERTPF, CK, ECENZ, VD25 #### [address] [address] Metalworking Specialist: Bret Vazquez MDGlucose [Mass/Vol]93 mg/jPWipxjg47-38ZsqisSt. Mary Regional Medical CenterComment on above:Performed By: #### IOCAL, CDP, MG, LACTIC, ALICIA, BNP, BMP #### [address] [address] Metalworking Specialist: YULIA Dunnerformed By: #### ERTPF, CK, ECENZ, VD25 #### [address] [address] Metalworking Specialist: YULIA Dunnotassium [Moles/Vol]4.5 mmol/LNormal3.7-5.3 [facility] HospitalComment on above:Performed By: #### IOCAL, CDP, MG, LACTIC, ALICIA, BNP, BMP #### [address] [address] Metalworking Specialist: YULIA Dunnerformed By: #### ERTPF, CK, ECENZ, VD25 #### [address] [address] Metalworking Specialist: KARIS Dunnodium [Moles/Vol]135 mmol/YMzypma192-140KzgpsSt. Vincent HospitalComment on above:Performed By: #### IOCAL, CDP, MG, LACTIC, ALICIA, BNP, BMP #### [address] [address] Metalworking Specialist: YULIA Dunnerformed By: #### ERTPF, CK, ECENZ, VD25 #### [address] [address] Metalworking Specialist: Margo Dunn nitrogen [Mass/Vol]16 mg/dLNormal8-23St. [facility] HospitalComment on above:Performed By: #### IOCAL, CDP, MG, LACTIC, ALICIA, BNP, BMP #### [place] [address] Metalworking Specialist: YULIA Dunnerformed By: #### ERTPF, CK, ECENZ, VD25 #### [place] [address] Metalworking Specialist: CHRISTINA Dunn with Diffon 33-73-8100Xqj. Basophil0.04 k/uL Normal0.00-0.20St. [facility] HospitalComment on above:Performed By: #### IOCAL, CDP, MG, LACTIC, ALICIA, BNP, BMP #### [address] [address] Metalworking Specialist: Ute Dunnformed By: #### ERTPF, CK, ECENZ, VD25 #### [address] [address] Metalworking Specialist: MDAbs. MonaImm.Granulocyte0.03 k/uLNormal0.00-0.30St. [facility] HospitalComment on above:Performed By: #### IOCAL, CDP, MG, LACTIC, ALICIA, BNP, BMP #### [address] [address] Metalworking Specialist: YULIA Dunnerformed By: #### ERTPF, CK, ECENZ, VD25 #### [place] [address] Metalworking Specialist: MDAbs. MonaNeutrophil (Seg)4.96 k/uLNormal1.50-8.10 [facility] HospitalComment on above:Performed By: #### IOCAL, CDP, MG, LACTIC, ALICIA, BNP, BMP #### [place] [address] Metalworking Specialist: YULIA Dunnerformed By: #### ERTPF, CK, ECENZ, VD25 #### [place] [address] Metalworking Specialist: Bret Vazquez MDBasophils/100 WBC (Bld)1 %Normal0-2[facility] Los AngelesComment on above:Performed By: #### IOCAL, CDP, MG, LACTIC, ALICIA, BNP, BMP #### [place] [address] Metalworking Specialist: YULIA Dunnerformed By: #### ERTPF, CK, ECENZ, VD25 #### [place] [address] Metalworking Specialist: Bret Vazquez MDEosinophils (Bld) [#/Vol]0.21 10*3/uLNormal 0.00-0.44St. [facility] HospitalComment on above:Performed By: #### IOCAL, CDP, MG, LACTIC, ALICIA, BNP, BMP #### [place] [address] Metalworking Specialist: YULIA Dunnerformed By: #### ERTPF, CK, ECENZ, VD25 #### [place] [address] Metalworking Specialist: Bret Vazquez MDEosinophils/100 WBC (Bld)3 %Normal1-4[facility]. [facility] HospitalComment on above:Performed By: #### IOCAL, CDP, MG, LACTIC, ALICIA, BNP, BMP #### [place] [address] Metalworking Specialist: YULIA Dunnerformed By: #### ERTPF, CK, ECENZ, VD25 #### [place] [address] Metalworking Specialist: Bret Vazquez MDErythrocyte distribution width (RBC) [Ratio]16.4 %High11.8-14.4St. [facility] HospitalComment on above:Performed By: #### IOCAL, CDP, MG, LACTIC, ALICIA, BNP, BMP #### [place] [address] Metalworking Specialist: YULIA Dunnerformed By: #### ERTPF, CK, ECENZ, VD25 #### [place] [address] Metalworking Specialist: Bret Vazquez MDHematocrit (Bld) [Volume fraction]22.9 %Low 40.7-50.3Msouthwest general health centery [facility] East Los AngelesComment on above:Performed By: #### IOCAL, CDP, MG, LACTIC, ALICIA, BNP, BMP #### [place] [address] Metalworking Specialist: YULIA Dunnerformed By: #### ERTPF, CK, ECENZ, VD25 #### [address] [address] Metalworking Specialist: Bret Vazquez MDHemoglobin (Bld) [Mass/Vol]7.5 g/dLLow13.0-17.0 [facility] HospitalComment on above:Performed By: #### IOCAL, CDP, MG, LACTIC, ALICIA, BNP, BMP #### [address] [address] Metalworking Specialist: YULIA Dunnerformed By: #### ERTPF, CK, ECENZ, VD25 #### [address] [address] Metalworking Specialist: Radha Dunnmature granulocytes/100 WBC (Bld)0 %Normal0 [facility] HospitalComment on above:Performed By: #### IOCAL, CDP, MG, LACTIC, ALICIA, BNP, BMP #### [address] [address] Metalworking Specialist: YULIA Dunnerformed By: #### ERTPF, CK, ECENZ, VD25 #### [address] [address] Metalworking Specialist: Bret Vazquez MDLymphocytes (Bld) [#/Vol]1.39 10*3/uLNormal 1.10-3.70St. [facility] HospitalComment on above:Performed By: #### IOCAL, CDP, MG, LACTIC, ALICIA, BNP, BMP #### [address] [address] Metalworking Specialist: YULIA Dunnerformed By: #### ERTPF, CK, ECENZ, VD25 #### [facility] wiMAN [address] [place] [address] Metalworking Specialist: Cristina Dunnmphocytes/100 WBC (Bld)19 %Kte54-70RmahbSt. Vincent HospitalComment on above:Performed By: #### IOCAL, CDP, MG, LACTIC, ALICIA, BNP, BMP #### [address] [address] Metalworking Specialist: YULIA Dunnerformed By: #### ERTPF, CK, ECENZ, VD25 #### [address] [address] Metalworking Specialist: SUNIL Dunn (RBC) [Entitic mass]31.4 tiEkrjpb39.2-33.5 [facility]. Vincent HospitalComment on above:Performed By: #### IOCAL, CDP, MG, LACTIC, ALICIA, BNP, BMP #### [address] [address] Metalworking Specialist: YULIA Dunnerformed By: #### ERTPF, CK, ECENZ, VD25 #### [address] [address] Metalworking Specialist: SUNIL DunnC (RBC) [Mass/Vol]32.8 g/yUVyuarq02.4-34.8 St. Vincent HospitalComment on above:Performed By: #### IOCAL, CDP, MG, LACTIC, ALICIA, BNP, BMP #### [address] [address] Metalworking Specialist: YULIA Dunnerformed By: #### ERTPF, CK, ECENZ, VD25 #### [address] [address] Metalworking Specialist: LAURA Dunn (RBC) [Entitic vol]95.8 sYPetoqa03.6-102.9 [facility] Vincent HospitalComment on above:Performed By: #### IOCAL, CDP, MG, LACTIC, ALICIA, BNP, BMP #### [address] [place] [address] Metalworking Specialist: YULIA Dunnerformed By: #### ERTPF, CK, ECENZ, VD25 #### [address] [address] Metalworking Specialist: Bret Vazquez MDMonocytes (Bld) [#/Vol]0.88 10*3/uLNormal 0.10-1.20St. Vincent HospitalComment on above:Performed By: #### IOCAL, CDP, MG, LACTIC, ALICIA, BNP, BMP #### [place] [address] Metalworking Specialist: YULIA Dunnerformed By: #### ERTPF, CK, ECENZ, VD25 #### [place] [address] Metalworking Specialist: MARGARET Dunnonocytes/100 WBC (Bld)12 %Normal3-12St. Vincent HospitalComment on above:Performed By: #### IOCAL, CDP, MG, LACTIC, ALICIA, BNP, BMP #### [place] [address] Metalworking Specialist: YULIA Dunnerformed By: #### ERTPF, CK, ECENZ, VD25 #### [place] [address] Metalworking Specialist: Bret Vazquez MDNeutrophil (Seg)66 %Fbin36-75QqfnhSt. Vincent HospitalComment on above:Performed By: #### IOCAL, CDP, MG, LACTIC, ALICIA, BNP, BMP #### [address] [address] Metalworking Specialist: Ute Dunnformed By: #### ERTPF, CK, ECENZ, VD25 #### [place] [address] Metalworking Specialist: SONIDO Dunn Automated0.0 per [address] Vincent HospitalComment on above:Performed By: #### IOCAL, CDP, MG, LACTIC, ALICIA, BNP, BMP #### [address] [address] Metalworking Specialist: YULIA Dunnerformed By: #### ERTPF, CK, ECENZ, VD25 #### [address] [address] Metalworking Specialist: Elle Dunn mean volume (Bld) [Entitic vol]10.8 fL Normal8.1-13.5St. Vincent HospitalComment on above:Performed By: #### IOCAL, CDP, MG, LACTIC, ALICIA, BNP, BMP #### [place] [address] Metalworking Specialist: YULIA Dunnerformed By: #### ERTPF, CK, ECENZ, VD25 #### [address] [address] Metalworking Specialist: Sylvia Dunn (Bld) [#/Vol]162 10*3/wPJkewdz644-183 [facility]. [facility] HospitalComment on above:Performed By: #### IOCAL, CDP, MG, LACTIC, ALICIA, BNP, BMP #### [place] [address] Metalworking Specialist: YULIA Dunnerformed By: #### ERTPF, CK, ECENZ, VD25 #### [address] [address] Metalworking Specialist: LUCITA Dunn (Bld) [#/Vol]2.39 10*6/uLLow4.21-5.77St. Vincent HospitalComment on above:Performed By: #### IOCAL, CDP, MG, LACTIC, ALICIA, BNP, BMP #### [facility] [address] [place] [address] Metalworking Specialist: YULIA Dunnerformed By: #### ERTPF, CK, ECENZ, VD25 #### [facility] [address] [place] [address] Metalworking Specialist: LUCITA Dunn morphology finding Nom (Bld)ANISOCYTOSIS PRESENTNormalMercy Promise Hospital Of East Los AngelesComment on above:Performed By: #### IOCAL, CDP, MG, LACTIC, ALICIA, BNP, BMP #### [address] [address] Metalworking Specialist: YULIA Dunnerformed By: #### ERTPF, CK, ECENZ, VD25 #### [address] [address] Metalworking Specialist: LINDA Dunn (Bld) [#/Vol]7.5 10*3/uLNormal3.5-11.3[facility] Of East Los AngelesComment on above:Performed By: #### IOCAL, CDP, MG, LACTIC, ALICIA, BNP, BMP #### [address] [address] Metalworking Specialist: YULIA Dunnerformed By: #### ERTPF, CK, ECENZ, VD25 #### [address] [address] Metalworking Specialist: Bret Vazquez MDMagnesiumon [id number] [Mass/Vol]1.9 mg/dLNormal1.6-2.6[facility] Of East Los AngelesComment on above:Performed By: #### IOCAL, CDP, MG, LACTIC, ALICIA, BNP, BMP #### [address] [address] Metalworking Specialist: YULIA Dunnerformed By: #### ERTPF, CK, ECENZ, VD25 #### [address] [address] Metalworking Specialist: Roula Dunn Metab w/rfx MGon 19-63-6865Gjrqn gap [Moles/Vol]7 mmol/LLow9-17St. Vincent HospitalComment on above: Performed By: #### IOCAL, CDP, MG, LACTIC, ALICIA, BNP, BMP #### [address] [address] Metalworking Specialist: YULIA Dunnerformed By: #### ERTPF, CK, ECENZ, VD25 #### [place] [address] Metalworking Specialist: CHRISTINA Dunnalcium [Mass/Vol]7.7 mg/dLLow8.6-10.4St. Vincent HospitalComment on above:Performed By: #### IOCAL, CDP, MG, LACTIC, ALICIA, BNP, BMP #### [address] [address] Metalworking Specialist: YULIA Dunnerformed By: #### ERTPF, CK, ECENZ, VD25 #### [address] [address] Metalworking Specialist: CHRISTINA Dunnhloride [Moles/Vol]103 mmol/UYpxlas02-386MtygrSt. Vincent HospitalComment on above:Performed By: #### IOCAL, CDP, MG, LACTIC, ALICIA, BNP, BMP #### [address] [address] Metalworking Specialist: YULIA Dunnerformed By: #### ERTPF, CK, ECENZ, VD25 #### [address] [address] Metalworking Specialist: CHRISTINA DunnO2 [Moles/Vol]22 mmol/IDiwewz26-25FbipxSt. Vincent HospitalComment on above:Performed By: #### IOCAL, CDP, MG, LACTIC, ALICIA, BNP, BMP #### [facility] [address] [place] [address] Metalworking Specialist: YULIA Dunnerformed By: #### ERTPF, CK, ECENZ, VD25 #### [facility] [address] [place] [address] Metalworking Specialist: CHRISTINA Dunnreatinine [Mass/Vol]0.62 mg/dLLow0.70-1.20St. Vincent HospitalComment on above:Performed By: #### IOCAL, CDP, MG, LACTIC, ALICIA, BNP, BMP #### [employer] [address] [place] [address] Metalworking Specialist: YULIA Dunnerformed By: #### ERTPF, CK, ECENZ, VD25 #### [facility] [address] [place] [address] Metalworking Specialist: Bret Vazquez MDGFR/1.73 sq M.predicted among non-blacks MDRD (S/P/Bld) [Vol rate/Area]mL/min/{1.73_m2}Normal>60St. Vincent HospitalComment on above:Result Comment: Effective Jul 26, 2022 These results [...] or following therapy that affects renal tubular secretion.Performed By: #### IOCAL, CDP, MG, LACTIC, ALICIA, BNP, BMP #### [facility] [address] [place] [address] Metalworking Specialist: YULIA Dunnerformed By: #### ERTPF, CK, ECENZ, VD25 #### [address] [address] Metalworking Specialist: Bret Vazquez MDGlucose [Mass/Vol]149 mg/vGEgye05-66PnbdcSt. Mary Regional Medical CenterComment on above:Performed By: #### IOCAL, CDP, MG, LACTIC, ALICIA, BNP, BMP #### [address] [address] Metalworking Specialist: YULIA Dunnerformed By: #### ERTPF, CK, ECENZ, VD25 #### [address] [address] Metalworking Specialist: YULIA Dunnotassium [Moles/Vol]4.9 mmol/LNormal3.7-5.3 St. Vincent HospitalComment on above:Performed By: #### IOCAL, CDP, MG, LACTIC, ALICIA, BNP, BMP #### [address] [address] Metalworking Specialist: YULIA Dunnerformed By: #### ERTPF, CK, ECENZ, VD25 #### [address] [address] Metalworking Specialist: KARIS Dunnodium [Moles/Vol]132 mmol/IZbz435-201AlxhoSt. Vincent HospitalComment on above:Performed By: #### IOCAL, CDP, MG, LACTIC, ALICIA, BNP, BMP #### [address] [address] Metalworking Specialist: YULIA Dunnerformed By: #### ERTPF, CK, ECENZ, VD25 #### [address] [address] Metalworking Specialist: Bret Vazquez MDUrea nitrogen [Mass/Vol]13 mg/dLNormal8-23St. Vincent HospitalComment on above:Performed By: #### IOCAL, CDP, MG, LACTIC, ALICIA, BNP, BMP #### [facility] [address] [place] [address] Metalworking Specialist: Ute Dunnformed By: #### ERTPF, CK, ECENZ, VD25 #### [address] [address] Metalworking Specialist: JOHN PAUL Dunn with Diffon 06-50-0742Kal. Basophil<0.03 Normal0.00-0.20St. Vincent HospitalComment on above:Performed By: #### IOCAL, CDP, MG, LACTIC, ALICIA, BNP, BMP #### [place] [address] Metalworking Specialist: Ute Dunnformed By: #### ERTPF, CK, ECENZ, VD25 #### [facility] [address] [place] [address] Metalworking Specialist: Verenice Dunn. Eosinophil<0.52Pfyawx4.00-0.44St. Vincent HospitalComment on above:Performed By: #### IOCAL, CDP, MG, LACTIC, ALICIA, BNP, BMP #### [place] [address] Metalworking Specialist: Ute Dunnformed By: #### ERTPF, CK, ECENZ, VD25 #### [facility] [address] [place] [address] Metalworking Specialist: Verenice Dunn.Imm.Granulocyte0.05 k/uLNormal0.00-0.30St. Vincent HospitalComment on above:Performed By: #### IOCAL, CDP, MG, LACTIC, ALICIA, BNP, BMP #### [facility] [address] [place] [address] Metalworking Specialist: Bret Madoff, MDPerformed By: #### ERTPF, CK, ECENZ, VD25 #### [address] [address] Metalworking Specialist: Verenice Dunn.Neutrophil (Seg)7.23 k/uLNormal1.50-8.10 St. [facility] HospitalComment on above:Performed By: #### IOCAL, CDP, MG, LACTIC, ALICIA, BNP, BMP #### [address] [address] Metalworking Specialist: YULIA Dunnerformed By: #### ERTPF, CK, ECENZ, VD25 #### [address] [address] Metalworking Specialist: Bret Vazquez MDBasophils/100 WBC (Bld)0 %Normal0-2MercPalo Verde HospitalComment on above:Performed By: #### IOCAL, CDP, MG, LACTIC, ALICIA, BNP, BMP #### [address] [address] Metalworking Specialist: YULIA Dunnerformed By: #### ERTPF, CK, ECENZ, VD25 #### [address] [address] Metalworking Specialist: Bret Vazquez MDEosinophils/100 WBC (Bld)0 %Low1-4St. Vincent HospitalComment on above:Performed By: #### IOCAL, CDP, MG, LACTIC, ALICIA, BNP, BMP #### [address] [address] Metalworking Specialist: Ute Dunnformed By: #### ERTPF, CK, ECENZ, VD25 #### [facility] [address] [place] [address] Metalworking Specialist: Bret Vazquez MDErythrocyte distribution width (RBC) [Ratio]16.4 %High11.8-14.4St. Vincent HospitalComment on above:Performed By: #### IOCAL, CDP, MG, LACTIC, ALICIA, BNP, BMP #### [address] [address] Metalworking Specialist: YULIA Dunnerformed By: #### ERTPF, CK, ECENZ, VD25 #### [address] [address] Metalworking Specialist: Bret Vazquez MDHematocrit (Bld) [Volume fraction]25.6 %Low 40.7-50.3Msouthwest general health centery [facility] Of East Los AngelesComment on above:Performed By: #### IOCAL, CDP, MG, LACTIC, ALICIA, BNP, BMP #### [address] [address] Metalworking Specialist: YULIA Dunnerformed By: #### ERTPF, CK, ECENZ, VD25 #### [address] [address] Metalworking Specialist: Bret Vazquez MDHemoglobin (Bld) [Mass/Vol]7.6 g/dLLow13.0-17.0 St. [facility] HospitalComment on above:Performed By: #### IOCAL, CDP, MG, LACTIC, ALICIA, BNP, BMP #### [place] [address] Metalworking Specialist: YULIA Dunnerformed By: #### ERTPF, CK, ECENZ, VD25 #### [address] [address] Metalworking Specialist: Chalino Dunnture granulocytes/100 WBC (Bld)1 %Jpav0OnpbaSt. Vincent HospitalComment on above:Performed By: #### IOCAL, CDP, MG, LACTIC, ALICIA, BNP, BMP #### [address] [address] Metalworking Specialist: YULIA Dunnerformed By: #### ERTPF, CK, ECENZ, VD25 #### [address] [address] Metalworking Specialist: Bret Vazquez MDLymphocytes (Bld) [#/Vol]0.89 10*3/uLLow 1.10-3.70St. Vincent HospitalComment on above:Performed By: #### IOCAL, CDP, MG, LACTIC, ALICIA, BNP, BMP #### [place] [address] Metalworking Specialist: YULIA Dunnerformed By: #### ERTPF, CK, ECENZ, VD25 #### [place] [address] Metalworking Specialist: Cristina Dunnmphocytes/100 WBC (Bld)10 %Gtd41-88ZndvbSt. Vincent HospitalComment on above:Performed By: #### IOCAL, CDP, MG, LACTIC, ALICIA, BNP, BMP #### [place] [address] Metalworking Specialist: YULIA Dunnerformed By: #### ERTPF, CK, ECENZ, VD25 #### [place] [address] Metalworking Specialist: SUNIL Dunn (RBC) [Entitic mass]31.7 xbOwavuv41.2-33.5 [facility] Vincent HospitalComment on above:Performed By: #### IOCAL, CDP, MG, LACTIC, ALICIA, BNP, BMP #### [address] [address] Metalworking Specialist: YULIA Dunnerformed By: #### ERTPF, CK, ECENZ, VD25 #### [facility] [address] [place] [address] Metalworking Specialist: MARGARET DunnCHC (RBC) [Mass/Vol]29.7 g/tUIzctjv62.4-34.8 [facility] HospitalComment on above:Performed By: #### IOCAL, CDP, MG, LACTIC, ALICIA, BNP, BMP #### [address] [address] Metalworking Specialist: YULIA Dunnerformed By: #### ERTPF, CK, ECENZ, VD25 #### [place] [address] Metalworking Specialist: MARGAERT DunnCV (RBC) [Entitic vol]106.7 mDAygt99.6-102.9 [facility] HospitalComment on above:Performed By: #### IOCAL, CDP, MG, LACTIC, ALICIA, BNP, BMP #### [place] [address] Metalworking Specialist: YULIA Dunnerformed By: #### ERTPF, CK, ECENZ, VD25 #### [place] [address] Metalworking Specialist: MARGARET Dunnonocytes (Bld) [#/Vol]1.00 10*3/uLNormal 0.10-1.20St. [facility] HospitalComment on above:Performed By: #### IOCAL, CDP, MG, LACTIC, ALICIA, BNP, BMP #### [address] [address] Metalworking Specialist: YULIA Dunnerformed By: #### ERTPF, CK, ECENZ, VD25 #### [place] [address] Metalworking Specialist: Bret Vazquez MDMonocytes/100 WBC (Bld)11 %Normal3-12St. [facility] HospitalComment on above:Performed By: #### IOCAL, CDP, MG, LACTIC, ALICIA, BNP, BMP #### [address] [address] Metalworking Specialist: Ute Dunnformed By: #### ERTPF, CK, ECENZ, VD25 #### [place] [address] Metalworking Specialist: Portia Dunn (Seg)79 %Ttjh74-54EcwqrSt. Vincent HospitalComment on above:Performed By: #### IOCAL, CDP, MG, LACTIC, ALICIA, BNP, BMP #### [place] [address] Metalworking Specialist: Ute Dunnformed By: #### ERTPF, CK, ECENZ, VD25 #### [place] [address] Metalworking Specialist: SONIDO Dunn Automated0.0 per [address] Vincent HospitalComment on above:Performed By: #### IOCAL, CDP, MG, LACTIC, ALICIA, BNP, BMP #### [place] [address] Metalworking Specialist: Ute Dunnformed By: #### ERTPF, CK, ECENZ, VD25 #### [place] [address] Metalworking Specialist: Mika Dunnlet mean volume (Bld) [Entitic vol]10.7 fL Normal8.1-13.5St. Vincent HospitalComment on above:Performed By: #### IOCAL, CDP, MG, LACTIC, ALICIA, BNP, BMP #### [place] [address] Metalworking Specialist: Ute Dunnformed By: #### ERTPF, CK, ECENZ, VD25 #### [address] [address] Metalworking Specialist: Soy Dunntelets (Bld) [#/Vol]206 10*3/tQBinkew999-719 [facility] HospitalComment on above:Performed By: #### IOCAL, CDP, MG, LACTIC, ALICIA, BNP, BMP #### [address] [address] Metalworking Specialist: YULIA Dunnerformed By: #### ERTPF, CK, ECENZ, VD25 #### [address] [address] Metalworking Specialist: LUCITA Dunn (Bld) [#/Vol]2.40 10*6/uLLow4.21-5.77St. Vincent HospitalComment on above:Performed By: #### IOCAL, CDP, MG, LACTIC, ALICIA, BNP, BMP #### [address] [address] Metalworking Specialist: YULIA Dunnerformed By: #### ERTPF, CK, ECENZ, VD25 #### [address] [address] Metalworking Specialist: LUCITA Dunn morphology finding Nom (Bld)ANISOCYTOSIS PRESENTNormalSt. Vincent HospitalComment on above:Result Comment: MACROCYTOSIS PRESENTPerformed By: #### IOCAL, CDP, MG, LACTIC, ALICIA, BNP, BMP #### [address] [address] Metalworking Specialist: YULIA Dunnerformed By: #### ERTPF, CK, ECENZ, VD25 #### [facility] [address] [place] [address] Metalworking Specialist: LINDA Dunn (Bld) [#/Vol]9.2 10*3/uLNormal3.5-11.3[facility] Los AngelesComment on above:Performed By: #### IOCAL, CDP, MG, LACTIC, ALICIA, BNP, BMP #### [facility] [address] [place] [address] Metalworking Specialist: YULIA Dunnerformed By: #### ERTPF, CK, ECENZ, VD25 #### [facility] [address] [place] [address] Metalworking Specialist: Bret Vazquez MDHgb/Hcton 06-15-3029Pcthbykchv (Bld) [Volume fraction]22.7 %Low40.7-50.3MSt. Mary Regional Medical CenterComment on above: Performed By: #### OSCAR, UAX, UMICAO #### [address] [address] Metalworking Specialist: YULIA Dunnerformed By: #### HH #### [address] [address] Metalworking Specialist: Bret Vazquez MDHemoglobin (Bld) [Mass/Vol]6.9 g/dLCritically low13.0-17.0[facility] Los AngelesComment on above:Performed By: #### OSCAR, UAX, UMICAO #### [facility] [address] [place] [address] Metalworking Specialist: YULIA Dunnerformed By: #### HH #### [facility] [address] [place] [address] Metalworking Specialist: Bret Vazquez MDHematocrit (Bld) [Volume fraction]19.2 %Low 40.7-50.3Msouthwest general health centery [facility] Los AngelesComment on above:Performed By: #### BMPX, CDP #### [facility] [address] [place] [address] Metalworking Specialist: YULIA Dunnerformed By: #### ERTPF, CK, ECENZ, VD25 #### [facility] [address] [place] [id number] Metalworking Specialist: Bret Vazquez MDHemoglobin (Bld) [Mass/Vol]6.2 g/dLCritically low13.0-17.0[facility] Los AngelesComment on above:Performed By: #### BMPX, CDP #### [facility] [address] [place], [place] [address] Metalworking Specialist: YULIA Dunnerformed By: #### ERTPF, CK, ECENZ, VD25 #### [facility] [address] [place], [place] [address] Metalworking Specialist: Bret Vazquez MDMagnesiumon 66-86-3285Jgwicswmj [Mass/Vol]2.1 mg/dLNormal1.6-2.6[facility] Los AngelesComment on above:Performed By: #### IOCAL, CDP, MG, LACTIC, ALICIA, BNP, BMP #### [facility] [address] [place], [place] [address] Metalworking Specialist: YULIA Dunnerformed By: #### ERTPF, CK, ECENZ, VD25 #### [place] [id number] Metalworking Specialist: ANNE Dunn CHEST PORTABLEon 01-17-7189UL CHEST PORTABLE EXAMINATION: ONE XRAY VIEW OF [...] Signed by: Bry Becker MD 09/07/22 Final resultNormalSt. Vincent HospitalBasic Metab w/rfx MGon 60-99-2250Xgmfp gap [Moles/Vol]9 mmol/LNormal9-17St. Vincent HospitalComment on above:Performed By: #### OSCAR, UAX, UMICAO #### [facility] [address] [place] [address] Metalworking Specialist: YULIA Dunnerformed By: #### ERTPF GHEG #### [facility] [address] [place] [address] Metalworking Specialist: CHRISTINA Dunnalcium [Mass/Vol]7.4 mg/dLLow8.6-10.4St. Vincent HospitalComment on above:Performed By: #### OSCAR, UAX, UMICAO #### [facility] [address] [place] [address] Metalworking Specialist: YULIA Dunnerformed By: #### ERTPF GHLTEG #### [facility] [address] [place] [address] Metalworking Specialist: CHRISTINA Dunnhloride [Moles/Vol]104 mmol/XUlvpln48-146UnajbSt. Vincent HospitalComment on above:Performed By: #### OSCAR, UAX, UMICAO #### [facility] [address] [place] [address] Metalworking Specialist: YULIA Dunnerformed By: #### ERTPF, GHLTEG #### [facility] [address] [place] [address] Metalworking Specialist: Bret Vazquez MDCO2 [Moles/Vol]22 mmol/QDtgcap03-02ZapvrSt. Vincent HospitalComment on above:Performed By: #### OSCAR, UAX, UMICAO #### [facility] [address] [place] [address] Metalworking Specialist: YULIA Dunnerformed By: #### ERTPF, GHLTEG #### [facility] [address] [place] [address] Metalworking Specialist: CHRISTINA Dunnreatinine [Mass/Vol]0.59 mg/dLLow0.70-1.20St. Vincent HospitalComment on above:Performed By: #### OSCAR, UAX, UMICAO #### [facility] [address] [place] [address] Metalworking Specialist: YULIA Dunnerformed By: #### ERTPChantel GHLTEG #### [facility] [address] [address] Metalworking Specialist: Bret Vazquez MDGFR/1.73 sq M.predicted among non-blacks MDRD (S/P/Bld) [Vol rate/Area]mL/min/{1.73_m2}Normal>60St. Vincent HospitalComment on above:Result Comment: Effective Jul 26, 2022 These results [...] or following therapy that affects renal tubular secretion.Performed By: #### SOCAR, UAX, UMICAO #### [facility] [address] [place] [address] Metalworking Specialist: YULIA Dunnerformed By: #### ERTPF, GHLTEG #### [facility] [address] [place] [address] Metalworking Specialist: Bret Vazquez MDGlucose [Mass/Vol]175 mg/xFDppf35-45WztygSt. Mary Regional Medical CenterComment on above:Performed By: #### OSCARDONATO CallawayX, UMICAO #### [address] [address] Metalworking Specialist: YULIA Dunnerformed By: #### KLARISSA GLORIAEG #### [address] [address] Metalworking Specialist: YULIA Dunnotassium [Moles/Vol]4.5 mmol/LNormal3.7-5.3 [facility] HospitalComment on above:Performed By: #### DONATO MOOREX, UMICAO #### [address] [address] Metalworking Specialist: YULIA Dunnerformed By: #### KLARISSA GLORIAEG #### [address] [address] Metalworking Specialist: Bret Vazquez MDSodium [Moles/Vol]135 mmol/CNhuddv813-692IrzpuSt. Vincent HospitalComment on above:Performed By: #### OSCAR, UAX, UMICAO #### [address] [address] Metalworking Specialist: YULIA Dunnerformed By: #### ERTRONALDO GHLTEG #### [address] [address] Metalworking Specialist: Bret Vazquez MDUrea nitrogen [Mass/Vol]11 mg/dLNormal8-23St. [facility] HospitalComment on above:Performed By: #### OSCAR, UAX, UMICAO #### [address] [address] Metalworking Specialist: Ute Dunnformed By: #### ERTPF, GHLTEG #### [facility] [address] [place] [address] Metalworking Specialist: Roula Dunn Metabolic Profon 10-05-3482Dyzku gap [Moles/Vol]7 mmol/LLow9-17St. Vincent HospitalComment on above: Performed By: #### OSCAR, UAX, UMICAO #### [facility] [address] [place] [address] Metalworking Specialist: YULIA Dunnerformed By: #### ERTPF, GHLTEG #### [facility] [address] [address] Metalworking Specialist: CHRISTINA Dunnalcium [Mass/Vol]7.8 mg/dLLow8.6-10.4St. [facility] HospitalComment on above:Performed By: #### OSCAR, UAX, UMICAO #### [facility] [address] [place] [address] Metalworking Specialist: YULIA Dunnerformed By: #### ERTPF, GHLTEG #### [facility] [address] [place] [address] Metalworking Specialist: CHRISTINA Dunnhloride [Moles/Vol]107 mmol/GGayvsi68-000FyerpSt. Vincent HospitalComment on above:Performed By: #### OSCAR, UAX, UMICAO #### [facility] [address] [place] [address] Metalworking Specialist: YULIA Dunnerformed By: #### ERTPF, GHLTEG #### [facility] [address] [place] [address] Metalworking Specialist: Bret Vazquez MDCO2 [Moles/Vol]23 mmol/ICzjwja02-85TfgbwSt. Vincent HospitalComment on above:Performed By: #### OSCAR, UAX, UMICAO #### [facility] [address] [place] [address] Metalworking Specialist: YULIA Dunnerformed By: #### CHRISTY GLORIA #### [facility] [address] [place] [address] Metalworking Specialist: CHRISTINA Dunnreatinine [Mass/Vol]0.60 mg/dLLow0.70-1.20St. [facility] HospitalComment on above:Performed By: #### DONATO MOOREX, UMICAO #### [facility] [address] [place] [address] Metalworking Specialist: YULIA Dunnerformed By: #### CHRISTY GLORIA #### [address] [address] Metalworking Specialist: Bret Vazquez MDGFR/1.73 sq M.predicted among non-blacks MDRD (S/P/Bld) [Vol rate/Area]mL/min/{1.73_m2}Normal>60St. Vincent HospitalComment on above:Result Comment: Effective Jul 26, 2022 These results [...] or following therapy that affects renal tubular secretion.Performed By: #### GINI MOORE, UMICAO #### [facility] [address] [place] [address] Metalworking Specialist: YULIA Dunnerformed By: #### CHRISTY GLORIA #### [address] [address] Metalworking Specialist: Bret Vazquez MDGlucose [Mass/Vol]155 mg/fCKokj78-61RjpckSt. Mary Regional Medical CenterComment on above:Performed By: #### OSCAR, UAX, UMICAO #### [facility] [address] [place] [address] Metalworking Specialist: Ute Dunnformed By: #### ERTPF, GHLTEG #### [address] [address] Metalworking Specialist: YULIA Dunnotassium [Moles/Vol]5.0 mmol/LNormal3.7-5.3 [facility] HospitalComment on above:Performed By: #### OSCAR, UAX, UMICAO #### [address] [address] Metalworking Specialist: Ute Dunnformed By: #### ERTPF, GHLTEG #### [address] [address] Metalworking Specialist: KARIS Dunnodium [Moles/Vol]137 mmol/VIyeqtn625-467ZthloSt. Vincent HospitalComment on above:Performed By: #### OSCAR, UAX, UMICAO #### [address] [address] Metalworking Specialist: Ute Dunnformed By: #### ERTPF, GHLTEG #### [address] [address] Metalworking Specialist: Bret Vazquez MDUrea nitrogen [Mass/Vol]11 mg/dLNormal8-23St. Vincent HospitalComment on above:Performed By: #### OSCAR, UAX, UMICAO #### [address] [address] Metalworking Specialist: Ute Dunnformed By: #### ERTPF, GHLTEG #### [address] [address] Metalworking Specialist: Bret Vazquez MDAnion gap [Moles/Vol]11 mmol/LNormal9-17St. Vincent HospitalComment on above:Performed By: #### IOCAL, CDP, MG, LACTIC, ALICIA, BNP, BMP #### [facility] [address] [place] [address] Metalworking Specialist: YULIA Dunnerformed By: #### ERTPF, CK, ECENZ, VD25 #### [address] [address] Metalworking Specialist: Bret Vazquez MDCalcium [Mass/Vol]7.5 mg/dLLow8.6-10.4St. [facility] HospitalComment on above:Performed By: #### IOCAL, CDP, MG, LACTIC, ALICIA, BNP, BMP #### [address] [address] Metalworking Specialist: YULIA Dunnerformed By: #### ERTPF, CK, ECENZ, VD25 #### [address] [address] Metalworking Specialist: CHRISTINA Dunnhloride [Moles/Vol]104 mmol/CEtlpfd82-975EpjzpSt. Vincent HospitalComment on above:Performed By: #### IOCAL, CDP, MG, LACTIC, ALICIA, BNP, BMP #### [address] [address] Metalworking Specialist: YULIA Dunnerformed By: #### ERTPF, CK, ECENZ, VD25 #### [facility] [address] [place] [address] Metalworking Specialist: Bret Vazquez MDCO2 [Moles/Vol]20 mmol/JQvqgal59-02FdaxgSt. Vincent HospitalComment on above:Performed By: #### IOCAL, CDP, MG, LACTIC, ALICIA, BNP, BMP #### [facility] [address] [place] [address] Metalworking Specialist: YULIA Dunnerformed By: #### ERTPF, CK, ECENZ, VD25 #### [facility] [address] [place] [address] Metalworking Specialist: CHRISTINA Dunnreatinine [Mass/Vol]0.62 mg/dLLow0.70-1.20St. [facility] HospitalComment on above:Performed By: #### IOCAL, CDP, MG, LACTIC, ALICIA, BNP, BMP #### [facility] [address] [place] [address] Metalworking Specialist: YULIA Dunnerformed By: #### ERTPF, CK, ECENZ, VD25 #### [address] [address] Metalworking Specialist: Bret Vazquez MDGFR/1.73 sq M.predicted among non-blacks MDRD (S/P/Bld) [Vol rate/Area]mL/min/{1.73_m2}Normal>60St. Vincent HospitalComment on above:Result Comment: Effective Jul 26, 2022 These results [...] or following therapy that affects renal tubular secretion.Performed By: #### IOCAL, CDP, MG, LACTIC, ALICIA, BNP, BMP #### [facility] [address] [place] [address] Metalworking Specialist: YULIA Dunnerformed By: #### ERTPF, CK, ECENZ, VD25 #### [facility] [address] [place] [address] Metalworking Specialist: Bret Vazquez MDGlucose [Mass/Vol]157 mg/oNJlam83-76PhrwySt. Mary Regional Medical CenterComment on above:Performed By: #### IOCAL, CDP, MG, LACTIC, ALICIA, BNP, BMP #### [address] [address] Metalworking Specialist: YULIA Dunnerformed By: #### ERTPF, CK, ECENZ, VD25 #### [address] [address] Metalworking Specialist: YULIA Dunnotassium [Moles/Vol]4.2 mmol/LNormal3.7-5.3 St[facility] HospitalComment on above:Performed By: #### IOCAL, CDP, MG, LACTIC, ALICIA, BNP, BMP #### [address] [address] Metalworking Specialist: YULIA Dunnerformed By: #### ERTPF, CK, ECENZ, VD25 #### [place] [address] Metalworking Specialist: KARIS Dunnodium [Moles/Vol]135 mmol/ULcqpzo976-891EacwcSt. Vincent HospitalComment on above:Performed By: #### IOCAL, CDP, MG, LACTIC, ALICIA, BNP, BMP #### [address] [address] Metalworking Specialist: YULIA Dunnerformed By: #### ERTPF, CK, ECENZ, VD25 #### [address] [address] Metalworking Specialist: Bret Vazquez MDUrea nitrogen [Mass/Vol]11 mg/dLNormal8-23St. [facility] HospitalComment on above:Performed By: #### IOCAL, CDP, MG, LACTIC, ALICIA, BNP, BMP #### [address] [address] Metalworking Specialist: YULIA Dunnerformed By: #### ERTPF, CK, ECENZ, VD25 #### [facility] [address] [place] [address] Metalworking Specialist: Lois Dunn. Peptideon 11-53-1758Frizzjogkzf peptide B (Bld) [Mass/Vol]846 pg/mLHigh<300[facility] Comment on above:Result Comment: An age-independent cutoff point of 300 pg/ml has a 98% negative predictive value excluding acute heart failure.Performed By: #### BMPX, CDP #### [facility] [address] [place] [address] Metalworking Specialist: YULIA Dunnerformed By: #### ERTPF, CK, ECENZ, VD25 #### [facility] [address] [place] [address] Metalworking Specialist: JOHN PAUL Dunn with Diffon 33-94-4660Kgs. Basophil0.00 k/uL Normal0.0-0.2[facility] Los AngelesComment on above:Performed By: #### OSCARDONATO CallawayX, UMICAO #### [facility] [address] [place] [address] Metalworking Specialist: YULIA Dunnerformed By: #### ERTPF, GHLTEG #### [facility] [address] [place] [address] Metalworking Specialist: Verenice Dunn.Imm.Granulocyte0.00 k/uLNormal0.00-0.30St. [facility] HospitalComment on above:Performed By: #### OSCAR, UAX, UMICAO #### [facility] [address] [place] [address] Metalworking Specialist: Ute Dunnformed By: #### ERTPF, GHLTEG #### [facility] [address] [place] [address] Metalworking Specialist: Verenice Dunn.Neutrophil (Seg)8.46 k/uLHigh1.8-7.7St. Vincent HospitalComment on above:Performed By: #### DONATO MOOREX, UMICAO #### [facility] [address] [place] [address] Metalworking Specialist: YULIA Dunnerformed By: #### CHRISTY GLORIA #### [facility] [address] [place] [address] Metalworking Specialist: Bret Vazquez MDBasophils/100 WBC (Bld)0 %Normal0-2MSt. Mary Regional Medical CenterComment on above:Performed By: #### DONATO MOOREX, UMICAO #### [facility] [address] [place] [address] Metalworking Specialist: YULIA Dunnerformed By: #### CHRISTY GLORIA #### [facility] [address] [place] [address] Metalworking Specialist: Bret Vazquez MDEosinophils (Bld) [#/Vol]0.00 10*3/uLNormal 0.0-0.4St. [facility] HospitalComment on above:Performed By: #### OSCAR UAX, UMICAO #### [facility] [address] [place] [address] Metalworking Specialist: YULIA Dunnerformed By: #### ERTKLARISSA HIGGINSEG #### [facility] [address] [place] [address] Metalworking Specialist: Bret Vazquez MDEosinophils/100 WBC (Bld)0 %Low1-4St. [facility] HospitalComment on above:Performed By: #### OSCAR UAX, UMICAO #### [facility] [address] [place] [address] Metalworking Specialist: YULIA Dunnerformed By: #### ERTPF, GHLTEG #### [address] [address] Metalworking Specialist: Radha Dunnmature granulocytes/100 WBC (Bld)0 %Normal0 St. [facility] HospitalComment on above:Performed By: #### OSCAR, UAX, UMICAO #### [address] [address] Metalworking Specialist: YULIA Dunnerformed By: #### ERTPF, GHLTEG #### [address] [address] Metalworking Specialist: Bret Vazquez MDLymphocytes (Bld) [#/Vol]0.55 10*3/uLLow1.0-4.8 [facility] HospitalComment on above:Performed By: #### OSCAR, UAX, UMICAO #### [address] [address] Metalworking Specialist: YULIA Dunnerformed By: #### ERTPF, GHLTEG #### [address] [address] Metalworking Specialist: Bret Vazquez MDLymphocytes/100 WBC (Bld)6 %Dkh86-63BfshcSt. Vincent HospitalComment on above:Performed By: #### OSCAR, UAX, UMICAO #### [address] [address] Metalworking Specialist: Ute Dunnformed By: #### ERTPF, GHLTEG #### [address] [address] Metalworking Specialist: MARGARET Dunnonocytes (Bld) [#/Vol]0.09 10*3/uLLow0.1-0.8 [facility]. [facility] HospitalComment on above:Performed By: #### OSCAR, UAX, UMICAO #### [facility] [address] [place] [address] Metalworking Specialist: YULIA Dunnerformed By: #### ERTPF, GHLTEG #### [address] [address] Metalworking Specialist: MARGARET Dunnonocytes/100 WBC (Bld)1 %Normal1-7St. [facility] HospitalComment on above:Performed By: #### OSCAR, UAX, UMICAO #### [address] [address] Metalworking Specialist: YULIA Dunnerformed By: #### ERTPF, GHLTEG #### [address] [address] Metalworking Specialist: MARGARET Dunnorphology Ruy (Bld) [Interp]ANISOCYTOSIS PRESENTNormalSt. Vincent HospitalComment on above:Result Comment: 1+ ACANTHOCYTESPerformed By: #### OSCAR, UAX, UMICAO #### [address] [address] Metalworking Specialist: YULIA Dunnerformed By: #### ERTPF, GHLTEG #### [address] [address] Metalworking Specialist: Bret Vazquez MDNeutrophil (Seg)93 %Gpdx43-53PvjhsSt. Vincent HospitalComment on above:Performed By: #### OSCAR, UAX, UMICAO #### [address] [address] Metalworking Specialist: YULIA Dunnerformed By: #### ERTPF, GHLTEG #### [address] [address] Metalworking Specialist: Bret Vazquez MDErythrocyte distribution width (RBC) [Ratio]16.8 %High11.8-14.4St. [facility] HospitalComment on above:Performed By: #### OSCAR UAX, UMICAO #### [address] [address] Metalworking Specialist: YULIA Dunnerformed By: #### CHRISTY GLORIA #### [address] [address] Metalworking Specialist: Bret Vazquez MDHematocrit (Bld) [Volume fraction]26.6 %Low 40.7-50.3Msouthwest general health centery [facility] Los AngelesComment on above:Performed By: #### OSCAR UAX, UMICAO #### [address] [address] Metalworking Specialist: YULIA Dunnerformed By: #### RANDOLPH GLORIALTEG #### [address] [address] Metalworking Specialist: Bret Vazquez MDHemoglobin (Bld) [Mass/Vol]8.5 g/dLLow13.0-17.0 [facility] HospitalComment on above:Performed By: #### OSCAR, UAX, UMICAO #### [address] [address] Metalworking Specialist: YULIA Dunnerformed By: #### ERTPF GHLTEG #### [address] [address] Metalworking Specialist: MARGARET DunnCH (RBC) [Entitic mass]31.6 pjYaodul59.2-33.5 [facility] HospitalComment on above:Performed By: #### OSCAR, UAX, UMICAO #### [facility] [address] [place] [address] Metalworking Specialist: YULIA Dunnerformed By: #### CHRISTY GLORIA #### [address] [address] Metalworking Specialist: MARGARET DunnCHC (RBC) [Mass/Vol]32.0 g/rZLnlnga82.4-34.8 [facility] HospitalComment on above:Performed By: #### OSCAR, UAX, UMICAO #### [address] [address] Metalworking Specialist: Ute Dunnformed By: #### CHRISTY GLORIA #### [place] [address] Metalworking Specialist: MARGARET DunnCV (RBC) [Entitic vol]98.[address]rgim59.6-102.9 [address] [facility] HospitalComment on above:Performed By: #### OSCAR, UAX, UMICAO #### [place] [address] Metalworking Specialist: Ute Dunnformed By: #### KLARISSA GLORIAEG #### [place] [address] Metalworking Specialist: SONIDO Dunn Automated0.0 per [address] [facility] HospitalComment on above:Performed By: #### OSCAR, UAX, UMICAO #### [address] [address] Metalworking Specialist: Ute Dunnformed By: #### ERTPF GHLTEG #### [address] [address] Metalworking Specialist: Mika Dunnlet mean volume (Bld) [Entitic vol]10.4 fL Normal8.1-13.5St. Vincent HospitalComment on above:Performed By: #### OSCAR, UAX, UMICAO #### [facility] [address] [place] [address] Metalworking Specialist: Ute Dunnformed By: #### ERTPF, GHLTEG #### [facility] [address] [place] [address] Metalworking Specialist: Mika Dunnsaint [facility] (Bld) [#/Vol]224 10*3/zVFmebxr921-790 [facility] HospitalComment on above:Performed By: #### OSCAR, UAX, UMICAO #### [facility] [address] [place] [address] Metalworking Specialist: Ute Dunnformed By: #### ERTPF, GHLTEG #### [address] [address] Metalworking Specialist: LIZZ DunnBC (Bld) [#/Vol]2.69 10*6/uLLow4.21-5.77St. [facility] HospitalComment on above:Performed By: #### OSCAR, UAX, UMICAO #### [facility] [address] [place] [address] Metalworking Specialist: Ute Dunnformed By: #### ERTPF, GHLTEG #### [facility] [address] [place] [address] Metalworking Specialist: LINDA Dunn (Bld) [#/Vol]9.1 10*3/uLNormal3.5-11.3MSt. Mary Regional Medical CenterComment on above:Performed By: #### OSCAR, UAX, UMICAO #### [facility] [address] [place] [address] Metalworking Specialist: Bret Madoff, MDPerformed By: #### ERTPF, GHLTEG #### [facility] [address] [place] [address] Metalworking Specialist: MDAbs. Mona Basophil0.03 k/uLNormal0.00-0.20St. [facility] HospitalComment on above:Performed By: #### OSCAR, UAX, UMICAO #### [facility] [address] [place] [address] Metalworking Specialist: YULIA Dunnerformed By: #### ERTPF, GHLTEG #### [facility] [address] [place] [address] Metalworking Specialist: MDAbs. Mona Eosinophil<0.89Adpmmx2.00-0.44St. [facility] HospitalComment on above:Performed By: #### OSCAR, UAX, UMICAO #### [facility] [address] [place] [address] Metalworking Specialist: YULIA Dunnerformed By: #### ERTRONALDO GHLTEG #### [facility] [address] [place] [address] Metalworking Specialist: MDAbs. MonaImm.Granulocyte0.05 k/uLNormal0.00-0.30St. [facility] HospitalComment on above:Performed By: #### OSCAR, UAX, UMICAO #### [facility] [address] [place] [address] Metalworking Specialist: YULIA Dunnerformed By: #### ERTPChantel GHLTEG #### [facility] [address] [place] [address] Metalworking Specialist: MDAbs. MonaNeutrophil (Seg)9.22 k/uLHigh1.50-8.10St. [facility] HospitalComment on above:Performed By: #### OSCAR, UAX, UMICAO #### [facility] [address] [place] [address] Metalworking Specialist: YULIA Dunnerformed By: #### ERTPF, GHLTEG #### [facility] [address] [place] [address] Metalworking Specialist: Bret Vazquez MDBasophils/100 WBC (Bld)0 %Normal0-2[facility] AngelesComment on above:Performed By: #### OSCAR, UAX, UMICAO #### [facility] [address] [place] [address] Metalworking Specialist: Ute Dunnformed By: #### ERTPF, GHLTEG #### [address] [address] Metalworking Specialist: Bret Vazquez MDEosinophils/100 WBC (Bld)0 %Low1-4[facility]. [facility] HospitalComment on above:Performed By: #### OSCAR, UAX, UMICAO #### [address] [address] Metalworking Specialist: YULIA Dunnerformed By: #### ERTPChantel, GHLTEG #### [address] [address] Metalworking Specialist: Bret Vazquez MDErythrocyte distribution width (RBC) [Ratio]16.8 %High11.8-14.4[facility]. [facility] HospitalComment on above:Performed By: #### OSCAR, UAX, UMICAO #### [facility] [address] [place] [address] Metalworking Specialist: YULIA Dunnerformed By: #### ERTPF, GHLTEG #### [facility] [address] [place] [address] Metalworking Specialist: Bret Vazquez MDHematocrit (Bld) [Volume fraction]30.0 %Low 40.7-50.3Msouthwest general health centery [facility] Los AngelesComment on above:Performed By: #### OSCARDONATO CallawayX, UMICAO #### [address] [address] Metalworking Specialist: YULIA Dunnerformed By: #### CHRISTY GLORIA #### [address] [address] Metalworking Specialist: Bret Vazquez MDHemoglobin (Bld) [Mass/Vol]9.7 g/dLLow13.0-17.0 [facility] HospitalComment on above:Performed By: #### GINI MOORE, UMICAO #### [address] [address] Metalworking Specialist: Ute Dunnformed By: #### CHRISTY GLORIA #### [address] [address] Metalworking Specialist: Butch Dunn granulocytes/100 WBC (Bld)0 %Normal0 [facility] HospitalComment on above:Performed By: #### DONATO MOOREX, UMICAO #### [address] [address] Metalworking Specialist: Ute Dunnformed By: #### CHRISTY GLORIA #### [address] [address] Metalworking Specialist: Bret Vazquez MDLymphocytes (Bld) [#/Vol]0.84 10*3/uLLow 1.10-3.70St. [facility] HospitalComment on above:Performed By: #### OSCAR UAX, UMICAO #### [address] [address] Metalworking Specialist: Dheeraj Dunn By: #### KLARISSA GLORIAEG #### [address] [address] Metalworking Specialist: Bret Vazquez MDLymphocytes/100 WBC (Bld)8 %Irg20-06JumlcSt. Vincent HospitalComment on above:Performed By: #### OSCAR, UAX, UMICAO #### [address] [address] Metalworking Specialist: Ute Dunnformed By: #### ERTRONALDO GHEG #### [place] [address] Metalworking Specialist: Bret Vazquez MDMCH (RBC) [Entitic mass]31.[address] cwUwpemn29.2-33.5 [facility] HospitalComment on above:Performed By: #### DONATO MOOREX, UMICAO #### [place] [address] Metalworking Specialist: Ute Dunnformed By: #### KLARISSA GLORIAEG #### [place] [address] Metalworking Specialist: MARGARET DunnCHC (RBC) [Mass/Vol]32.3 g/aQRvnrll25.4-34.8 [facility] HospitalComment on above:Performed By: #### OSCAR, UAX, UMICAO #### [address] [address] Metalworking Specialist: Ute Dunnformed By: #### FAIZAN GHLTEG #### [address] [address] Metalworking Specialist: MARGARET DunnCV (RBC) [Entitic vol]97.[address]mheha60.6-102.9 [facility] HospitalComment on above:Performed By: #### OSCAR, UAX, UMICAO #### [facility] [address] [place] [address] Metalworking Specialist: YULIA Dunnerformed By: #### ERTPF, GHLTEG #### [facility] [address] [place] [address] Metalworking Specialist: Bret Vazquez MDMonocytes (Bld) [#/Vol]0.98 10*3/uLNormal 0.10-1.20[facility]. [facility] HospitalComment on above:Performed By: #### OSCAR, UAX, UMICAO #### [facility] [address] [place] [address]83 Metalworking Specialist: YULIA Dunnerformed By: #### ERTPF, GHLTEG #### [facility] [address] [place] [address] Metalworking Specialist: Bret Vazquez MDMonocytes/100 WBC (Bld)9 %Normal3-12St. [facility] HospitalComment on above:Performed By: #### OSCAR, UAX, UMICAO #### [facility] [address] [place] [address] Metalworking Specialist: YULIA Dunnerformed By: #### ERTPF, GHLTEG #### [facility] [address] [place] [address] Metalworking Specialist: Manuela Dunnutrophil (Seg)83 %Vrgy22-03FvjiqSt. Vincent HospitalComment on above:Performed By: #### OSCAR, UAX, UMICAO #### [facility] [address] [place] [address] Metalworking Specialist: YULIA Dunnerformed By: #### ERTPF, GHLTEG #### [facility] [address] [place] [address] Metalworking Specialist: SONIDO Dunn Automated0.0 per [address] [facility] HospitalComment on above:Performed By: #### OSCAR, UAX, UMICAO #### [facility] [address] [place] [address] Metalworking Specialist: YULIA Dunnerformed By: #### ERTPChantel GHLTEG #### [address] [address] Metalworking Specialist: Elle Dunn mean volume (Bld) [Entitic vol]10.2 fL Normal8.1-13.5St. Vincent HospitalComment on above:Performed By: #### OSCAR, UAX, UMICAO #### [address] [address] Metalworking Specialist: YULIA Dunnerformed By: #### ERTPF, GHLTEG #### [address] [address] Metalworking Specialist: Sylvia Dunn (Bld) [#/Vol]249 10*3/mSNtvejj913-418 [facility] HospitalComment on above:Performed By: #### OSCAR, UAX, UMICAO #### [facility] [address] [place] [address] Metalworking Specialist: Ute Dunnformed By: #### ERTPF, GHLTEG #### [facility] [address] [place] [address] Metalworking Specialist: LUCITA Dunn (Bld) [#/Vol]3.07 10*6/uLLow4.21-5.77St. [facility] HospitalComment on above:Performed By: #### OSCAR, UAX, UMICAO #### [facility] [address] [place] [address] Metalworking Specialist: YULIA Dunnerformed By: #### ERTPF, GHLTEG #### [facility] [address] [place] [address] Metalworking Specialist: LUCITA Dunn morphology finding Nom (Bld)ANISOCYTOSIS PRESENTNormalSt. Vincent HospitalComment on above:Performed By: #### OSCAR, UAX, UMICAO #### [facility] [address] [place] [address] Metalworking Specialist: YULIA Dunnerformed By: #### ERTPChantel GHLTEG #### [address] [address] Metalworking Specialist: LINDA Dunn (Bld) [#/Vol]11.1 10*3/uLNormal3.5-11.3[facility] Los AngelesComment on above:Performed By: #### OSCAR, UAX, UMICAO #### [facility] [address] [place] [address] Metalworking Specialist: Ute Dunnformed By: #### ERTRONALDO, GHLTEG #### [address] [address] Metalworking Specialist: MDAbs. Mona Basophil0.04 k/uLNormal0.00-0.20St. [facility] HospitalComment on above:Performed By: #### IOCAL, CDP, MG, LACTIC, ALICIA, BNP, BMP #### [facility] [address] [place] [address] Metalworking Specialist: Ute Dunnformed By: #### ERTPF, CK, ECENZ, VD25 #### [facility] [address] [place] [address] Metalworking Specialist: MDAbs. MonaImm.Granulocyte0.07 k/uLNormal0.00-0.30St. [facility] HospitalComment on above:Performed By: #### IOCAL, CDP, MG, LACTIC, ALICIA, BNP, BMP #### [address] [address] Metalworking Specialist: YULIA Dunnerformed By: #### ERTPF, CK, ECENZ, VD25 #### [address] [address] Metalworking Specialist: Verenice Dunn.Neutrophil (Seg)13.83 k/uLHigh1.50-8.10St. [facility] HospitalComment on above:Performed By: #### IOCAL, CDP, MG, LACTIC, ALICIA, BNP, BMP #### [address] [address] Metalworking Specialist: YULIA Dunnerformed By: #### ERTPF, CK, ECENZ, VD25 #### [address] [address] Metalworking Specialist: Bret Vazquez MDBasophils/100 WBC (Bld)0 %Normal0-2MSt. Mary Regional Medical CenterComment on above:Performed By: #### IOCAL, CDP, MG, LACTIC, ALICIA, BNP, BMP #### [facility] [address] [place] [address] Metalworking Specialist: YULIA Dunnerformed By: #### ERTPF, CK, ECENZ, VD25 #### [facility] [facility] [address] [place] [address] Metalworking Specialist: Bret Vazquez MDEosinophils (Bld) [#/Vol]0.07 10*3/uLNormal 0.00-0.44St. [facility] HospitalComment on above:Performed By: #### IOCAL, CDP, MG, LACTIC, ALICIA, BNP, BMP #### [facility] wiMAN [address] [place] [address] Metalworking Specialist: YULIA Dunnerformed By: #### ERTPF, CK, ECENZ, VD25 #### [place] [address] Metalworking Specialist: Bret Vazquez MDEosinophils/100 WBC (Bld)0 %Low1-4St. Vincent HospitalComment on above:Performed By: #### IOCAL, CDP, MG, LACTIC, ALICIA, BNP, BMP #### [place] [address] Metalworking Specialist: YULIA Dunnerformed By: #### ERTPF, CK, ECENZ, VD25 #### [place] [address] Metalworking Specialist: Bret Vazquez MDErythrocyte distribution width (RBC) [Ratio]16.4 %High11.8-14.4St. Vincent HospitalComment on above:Performed By: #### IOCAL, CDP, MG, LACTIC, AILCIA, BNP, BMP #### [place] [address] Metalworking Specialist: YULIA Dunnerformed By: #### ERTPF, CK, ECENZ, VD25 #### [place] [address] Metalworking Specialist: Bret Vazquez MDHematocrit (Bld) [Volume fraction]33.2 %Low 40.7-50.3[facility] Of East Los AngelesComment on above:Performed By: #### IOCAL, CDP, MG, LACTIC, ALICIA, BNP, BMP #### [place] [address] Metalworking Specialist: YULIA Dunnerformed By: #### ERTPF, CK, ECENZ, VD25 #### [place] [address] Metalworking Specialist: Bret Vazquez MDHemoglobin (Bld) [Mass/Vol]11.1 g/dLLow13.0-17.0 [facility] HospitalComment on above:Performed By: #### IOCAL, CDP, MG, LACTIC, ALICIA, BNP, BMP #### [address] [address] Metalworking Specialist: YULIA Dunnerformed By: #### ERTPF, CK, ECENZ, VD25 #### [address] [address] Metalworking Specialist: Radha Dunnmature granulocytes/100 WBC (Bld)0 %Normal0 St. [facility] HospitalComment on above:Performed By: #### IOCAL, CDP, MG, LACTIC, ALICIA, BNP, BMP #### [place] [address] Metalworking Specialist: YULIA Dunnerformed By: #### ERTPF, CK, ECENZ, VD25 #### [place] [address] Metalworking Specialist: Bret Vazquez MDLymphocytes (Bld) [#/Vol]1.05 10*3/uLLow 1.10-3.70St. [facility] HospitalComment on above:Performed By: #### IOCAL, CDP, MG, LACTIC, ALICIA, BNP, BMP #### [address] [address] Metalworking Specialist: YULIA Dunnerformed By: #### ERTPF, CK, ECENZ, VD25 #### [address] [address] Metalworking Specialist: Cristina Dunnmphocytes/100 WBC (Bld)6 %Rqw91-03RaknkSt. Vincent HospitalComment on above:Performed By: #### IOCAL, CDP, MG, LACTIC, ALICIA, BNP, BMP #### [address] [address] Metalworking Specialist: Ute Dunnformed By: #### ERTPF, CK, ECENZ, VD25 #### [address] [address] Metalworking Specialist: MARGARET DunnCH (RBC) [Entitic mass]31.5 bmSschsn73.2-33.5 [facility] HospitalComment on above:Performed By: #### IOCAL, CDP, MG, LACTIC, ALICIA, BNP, BMP #### [address] [address] Metalworking Specialist: YULIA Dunnerformed By: #### ERTPF, CK, ECENZ, VD25 #### [address] [address] Metalworking Specialist: SUNIL DunnC (RBC) [Mass/Vol]33.4 g/xFQolmbu75.4-34.8 [facility] HospitalComment on above:Performed By: #### IOCAL, CDP, MG, LACTIC, ALICIA, BNP, BMP #### [address] [address] Metalworking Specialist: Uet Dunnformed By: #### ERTPF, CK, ECENZ, VD25 #### [address] [address] Metalworking Specialist: MARGARET DunnCV (RBC) [Entitic vol]94.[address]TKbpgdm13.6-102.9 [facility] HospitalComment on above:Performed By: #### IOCAL, CDP, MG, LACTIC, ALICIA, BNP, BMP #### [address] [address] Metalworking Specialist: Bret Madoff, MDPerformed By: #### ERTPF, CK, ECENZ, VD25 #### [facility] [address] [place] [address] Metalworking Specialist: Bret Vazquez MDMonocytes (Bld) [#/Vol]1.34 10*3/uLHigh0.10-1.20 [facility] HospitalComment on above:Performed By: #### IOCAL, CDP, MG, LACTIC, ALICIA, BNP, BMP #### [facility] [address] [place] [address] Metalworking Specialist: YULIA Dunnerformed By: #### ERTPF, CK, ECENZ, VD25 #### [address] [address] Metalworking Specialist: Bret Vazquez MDMonocytes/100 WBC (Bld)8 %Normal3-12St. Vincent HospitalComment on above:Performed By: #### IOCAL, CDP, MG, LACTIC, ALICIA, BNP, BMP #### [address] [address] Metalworking Specialist: YULIA Dunnerformed By: #### ERTPF, CK, ECENZ, VD25 #### [address] [address] Metalworking Specialist: Matthew Dunnophil (Seg)84 %Rayh51-45WfzltSt. Vincent HospitalComment on above:Performed By: #### IOCAL, CDP, MG, LACTIC, ALICIA, BNP, BMP #### [facility] [address] [place] [address] Metalworking Specialist: YULIA Dunnerformed By: #### ERTPF, CK, ECENZ, VD25 #### [facility] wiMAN [address] [place] [address] Metalworking Specialist: NELSON DunnBC Automated0.0 per [address] Vincent HospitalComment on above:Performed By: #### IOCAL, CDP, MG, LACTIC, ALICIA, BNP, BMP #### [address] [address] Metalworking Specialist: Ute Dunnformed By: #### ERTPF, CK, ECENZ, VD25 #### [address] [address] Metalworking Specialist: Elle Dunn mean volume (Bld) [Entitic vol]10.2 fL Normal8.1-13.5St. Vincent HospitalComment on above:Performed By: #### IOCAL, CDP, MG, LACTIC, ALICIA, BNP, BMP #### [address] [address] Metalworking Specialist: Ute Dunnformed By: #### ERTPF, CK, ECENZ, VD25 #### [address] [address] Metalworking Specialist: Sylvia Dunn (Bld) [#/Vol]283 10*3/tJLcfbak340-627 St. [facility] HospitalComment on above:Performed By: #### IOCAL, CDP, MG, LACTIC, ALICIA, BNP, BMP #### [address] [address] Metalworking Specialist: Ute Dunnformed By: #### ERTPF, CK, ECENZ, VD25 #### [address] [address] Metalworking Specialist: LIZZ DunnBC (Bld) [#/Vol]3.52 10*6/uLLow4.21-5.77St. Vincent HospitalComment on above:Performed By: #### IOCAL, CDP, MG, LACTIC, ALICIA, BNP, BMP #### [address] [address] Metalworking Specialist: YULIA Dunnerformed By: #### ERTPF, CK, ECENZ, VD25 #### [address] [address] Metalworking Specialist: LUCITA Dunn morphology finding Nom (Bld)ANISOCYTOSIS PRESENTNormalMercy Promise Hospital Of East Los AngelesComment on above:Performed By: #### IOCAL, CDP, MG, LACTIC, ALICIA, BNP, BMP #### [address] [address] Metalworking Specialist: YULIA Dunnerformed By: #### ERTPF, CK, ECENZ, VD25 #### [place] [address] Metalworking Specialist: LINDA Dunn (Bld) [#/Vol]16.4 10*3/uLHigh3.5-11.3[facility] Los AngelesComment on above:Performed By: #### IOCAL, CDP, MG, LACTIC, ALICIA, BNP, BMP #### [address] [address] Metalworking Specialist: YULIA Dunnerformed By: #### ERTPF, CK, ECENZ, VD25 #### [address] [address] Metalworking Specialist: SIVA Dunn 3D RECONSTRUCTIONon [id number] 3D RECONSTRUCTIONEXAMINATION: CT OF THE LEFT ANKLE WITHOUT CONTRAST; [...] Signed by: Dallin Pineda MD 09/06/22 Final resultNormalMercy Promise Hospital Of East Los AngelesCT ANKLE LEFT WO CONTRASTon [id number] ANKLE LEFT WO CONTRASTEXAMINATION: CT OF THE LEFT ANKLE WITHOUT CONTRAST; [...] Signed by: Dallin Pineda MD 09/06/22 Final resultNormalMerCoast Plaza HospitalCalcium, Ionicon 09-06-2022 Calcium [Moles/Vol]1.16 mmol/LNormal1.13-1.33[facility] Comment on above:Performed By: #### BMPX, CDP #### [address] [place], [place] [id number] Metalworking Specialist: YULIA Dunnerformed By: #### BMP, CDP, IOCAL, LACTIC, ALICIA, MG #### [address] [place], [place] [id number] Metalworking Specialist: CHRISTINA Dunnalcium [Moles/Vol]1.17 mmol/LNormal1.13-1.33 [facility] HospitalComment on above:Performed By: #### OSCAR, UAX, UMICAO #### [address] [address] Metalworking Specialist: YULIA Dunnerformed By: #### ERTPF, CK, ECENZ, VD25 #### [address] [address] Metalworking Specialist: CHRISTINA Dunnalcium [Moles/Vol]0.98 mmol/LLow1.13-1.33St. [facility] HospitalComment on above:Performed By: #### IOCAL, CDP, MG, LACTIC, ALICIA, BNP, BMP #### [place] [address] Metalworking Specialist: YULIA Dunnerformed By: #### ERTPF, CK, ECENZ, VD25 #### [place] [address] Metalworking Specialist: SANDRA Dunnrug Scr, Abuse, Uron 09-06-2022 Amphetamine(s),UrNegativeNormalNEGSt. Vincent HospitalComment on above:Result Comment: (Positive cutoff 1000 ng/mL)Performed By: #### OSCAR, UAX, UMICAO #### [place] [address] Metalworking Specialist: Ute Dunnformed By: #### ERTPF, CK, ECENZ, VD25 #### [place] [address] Metalworking Specialist: Bret Vazquez MDBarbiturate(s),UrNegativeNormalNEGSt. Vincent HospitalComment on above:Result Comment: (Positive cutoff 200 ng/mL)Performed By: #### OSCAR, UAX, UMICAO #### [place] [address] Metalworking Specialist: YULIA Dunnerformed By: #### ERTPF, CK, ECENZ, VD25 #### [facility] [address] [place] [address] Metalworking Specialist: Bret Vazquez MDBenzodiazepine(s)NegativeNormalNEGMerCoast Plaza HospitalComment on above:Result Comment: (Positive cutoff 200 ng/mL)Performed By: #### OSCAR, UAX, UMICAO #### [facility] [address] [place] [address] Metalworking Specialist: Ute Dunnformed By: #### ERTPF, CK, ECENZ, VD25 #### [facility] [address] [place] [address] Metalworking Specialist: CHRISTINA Dunnannabinoid(s),UrNegativeNormalNEGSt. Vincent HospitalComment on above:Result Comment: (Positive cutoff 50 ng/mL)Performed By: #### OSCAR, UAX, UMICAO #### [facility] [address] [place] [address] Metalworking Specialist: Ute Dunnformed By: #### ERTPF, CK, ECENZ, VD25 #### [facility] [address] [place] [address] Metalworking Specialist: CHRISTINA Dunnocaine MetaboliteNegativeNormalNEGSt. Vincent HospitalComment on above:Result Comment: (Positive cutoff 300 ng/mL)Performed By: #### OSCAR, UAX, UMICAO #### [facility] [address] [place] [address] Metalworking Specialist: Ute Dunnformed By: #### ERTPF, CK, ECENZ, VD25 #### [facility] [address] [place] [address] Metalworking Specialist: Bret Vazquez MDFentanyl, UrinePositiveAbnormalNEGMercy Sewall'S Point Medical CenterComment on above:Result Comment: (Positive cutoff 5 ng/ml)Performed By: #### OSCAR, UAX, UMICAO #### [facility] [address] [place] [address] Metalworking Specialist: YULIA Dunnerformed By: #### ERTPF, CK, ECENZ, VD25 #### [facility] [address] [address] Metalworking Specialist: Bret Vazquez MDInterpretive InfoAssay provides medical screening only. The absence of expected drug(s) and/orNormalMercy Promise Hospital Of East Los AngelesComment on above:Result Comment: metabolite(s) may indicate diluted or adulterated urine, limitations of testing or timing of collection. Testing for legal purposes should be confirmed by another method. To request confirmation of test result, please call the lab within 7 days of sample submission.Performed By: #### OSCAR, UAX, UMICAO #### [facility] [address] [place] [address] Metalworking Specialist: YULIA Dunnerformed By: #### ERTPF, CK, ECENZ, VD25 #### [facility] [address] [place] [address] Metalworking Specialist: MARGARET Dunnethadone Ql (U)NegativeNormalNEGSt. Vincent HospitalComment on above:Result Comment: (Positive cutoff 300 ng/mL)Performed By: #### OSCAR, UAX, UMICAO #### [facility] [address] [place] [address] Metalworking Specialist: YULIA Dunnerformed By: #### ERTPF, CK, ECENZ, VD25 #### [facility] [address] [place] [address] Metalworking Specialist: Bret Vazquez MDOpiate(s), UrNegativeNormalNEGSt. Vincent HospitalComment on above:Result Comment: (Positive cutoff 300 ng/mL)Performed By: #### OSCAR, UAX, UMICAO #### [facility] [address] [place] [address] Metalworking Specialist: YULIA Dunnerformed By: #### ERTPF, CK, ECENZ, VD25 #### [facility] [address] [place] [address] Metalworking Specialist: Bret Vazquez MDOxycodone, UrineNegativeNormalNEGSt. Vincent HospitalComment on above:Result Comment: (Positive cutoff 100 ng/mL)Performed By: #### OSCAR, UAX, UMICAO #### [facility] [address] [place] [address] Metalworking Specialist: YULIA Dunnerformed By: #### ERTPF, CK, ECENZ, VD25 #### [address] [address] Metalworking Specialist: Giancarlo Dunncyclidine, UrNegativeNounc medical centerNEGSt. Vincent HospitalComment on above:Result Comment: (Positive cutoff 25 ng/mL)Performed By: #### OSCAR, UAX, UMICAO #### [facility] [address] [place] [address] Metalworking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 #### [address] [address] Metalworking Specialist: Bret Vazquez MDOxygen saturation in Blood87.4 %High60.0-85.0 St. Vincent HospitalComment on above:Performed By: #### BMPX, CDP #### [address] [address] Metalworking Specialist: Ute Dunnformed By: #### ERTPF, GHLTEG #### [facility] [address] [place] [address] Metalworking Specialist: Yulia DunnCO247.1 mm VqEikumb03-75OxkdjSt. Vincent HospitalComment on above:Performed By: #### BMPX, CDP #### [facility] [address] [place] [address] Metalworking Specialist: Ute Dunnformed By: #### ERTPF, GHLTEG #### [facility] [address] [place] [address] Metalworking Specialist: Yulia Dunn (Bld)7.303 [pH]Low7.320-7.420St. Vincent HospitalComment on above:Performed By: #### BMPX, CDP #### [facility] [address] [place] [address] Metalworking Specialist: Ute Dunnformed By: #### ERTPF, GHLTEG #### [facility] [address] [place] [address] Metalworking Specialist: Yulia DunnO262.0 mm BcYwtz69-60BzcuqSt. Vincent HospitalComment on above:Performed By: #### BMPX, CDP #### [facility] [address] [place] [address] Metalworking Specialist: Ute Dunnformed By: #### ERTPF, GHLTEG #### [facility] [address] [place] [address] Metalworking Specialist: Dolores Dunn gap [Moles/Vol]11 mmol/LNormal9-17St. Vincent HospitalComment on above:Performed By: #### OSCAR, UAX, UMICAO #### [facility] [address] [place] [address] Metalworking Specialist: Bret Madoff, MDPerformed By: #### ERTPF, CK, ECENZ, VD25 #### [address] [address] Metalworking Specialist: CHRISTINA Dunnhloride [Moles/Vol]106 mmol/ETtnogd81-871VbxetSt. Vincent HospitalComment on above:Performed By: #### OSCAR, UAX, UMICAO #### [address] [address] Metalworking Specialist: YULIA Dunnerformed By: #### ERTPF, CK, ECENZ, VD25 #### [place] [address] Metalworking Specialist: Bret Vazquez MDCO2 [Moles/Vol]21 mmol/NBbjbuf17-46XvncrSt. Vincent HospitalComment on above:Performed By: #### OSCAR, UAX, UMICAO #### [place] [address] Metalworking Specialist: YULIA Dunnerformed By: #### ERTPF, CK, ECENZ, VD25 #### [place] [address] Metalworking Specialist: CHRISTINA Dunnreatinine [Mass/Vol]0.76 mg/dLNormal0.70-1.20 St[facility] Vincent HospitalComment on above:Performed By: #### OSCAR, UAX, UMICAO #### [address] [address] Metalworking Specialist: YULIA Dunnerformed By: #### ERTPF, CK, ECENZ, VD25 #### [address] [address] Metalworking Specialist: Bret Vazquez MDGFR/1.73 sq M.predicted among non-blacks MDRD (S/P/Bld) [Vol rate/Area]60 mL/min/{1.73_m2}Low>60[facility] Los AngelesComment on above:Result Comment: Effective Jul 26, 2022 These results [...] or following therapy that affects renal tubular secretion.Performed By: #### OSCAR, UAX, UMICAO #### [address] [address] Metalworking Specialist: YULIA Dunnerformed By: #### ERTPF, CK, ECENZ, VD25 #### [address] [address] Metalworking Specialist: Bret Vazquez MDGlucose [Mass/Vol]113 mg/nRXsae07-25UferhSt. Mary Regional Medical CenterComment on above:Performed By: #### OSCAR, UAX, UMICAO #### [address] [address] Metalworking Specialist: YULIA Dunnerformed By: #### ERTPF, CK, ECENZ, VD25 #### [address] [address] Metalworking Specialist: YULIA Dunnotassium [Moles/Vol]3.9 mmol/LNormal3.7-5.3 St[facility] Vincent HospitalComment on above:Performed By: #### OSCAR, UAX, UMICAO #### [address] [address] Metalworking Specialist: Ute Dunnformed By: #### ERTPF, CK, ECENZ, VD25 #### [address] [address] Metalworking Specialist: KARIS Dunnodium [Moles/Vol]138 mmol/WKwezvf886-945AvznzSt. Vincent HospitalComment on above:Performed By: #### OSCAR, UAX, UMICAO #### [facility] [address] [place] [address] Metalworking Specialist: YULIA Dunnerformed By: #### ERTPF, CK, ECENZ, VD25 #### [facility] [address] [place] [address] Metalworking Specialist: Margo Dunn nitrogen [Mass/Vol]11 mg/dLNormal8-23St. Vincent HospitalComment on above:Performed By: #### OSCAR, UAX, UMICAO #### [facility] [address] [address] Metalworking Specialist: YULIA Dunnerformed By: #### ERTPF, CK, ECENZ, VD25 #### [place] [address] Metalworking Specialist: Seth Dunn Coag (Bld) [Time]26.0 uTqsynm67.5-30.5St. Vincent HospitalComment on above:Result Comment: IV Heparin Therapy Range: 48.6-77.8Performed By: #### OSCAR, UAX, UMICAO #### [address] [address] Metalworking Specialist: YULIA Dunnerformed By: #### ERTPF, CK, ECENZ, VD25 #### [facility] [address] [place] [address] Metalworking Specialist: KERRY Dunn Coag (PPP) [Relative time]2.1 {INR}Normal St. Vincent HospitalComment on above:Result Comment: Therapeutic Range: Moderate Anticoagulant Intensity: INR = 2.0-3.0 High Anticoagulant Intensity: INR = 2.5-3.5Performed By: #### OSCAR, UAX, UMICAO #### [facility] [address] [place] [address] Metalworking Specialist: Ute Dunnformed By: #### ERTPF, CK, ECENZ, VD25 #### [facility] [address] [place] [address] Metalworking Specialist: DEZ Dunn Coag (PPP) [Time]20.8 sHigh9.1-12.3Mer[facility] Los AngelesComment on above:Performed By: #### OSCAR, UAX, UMICAO #### [facility] [address] [place] [address] Metalworking Specialist: Ute Dunnformed By: #### ERTPF, CK, ECENZ, VD25 #### [facility] [address] [place] [address] Metalworking Specialist: Evan Dunn [facility].37.0NormalSt. Vincent HospitalComment on above:Performed By: #### OSCAR, UAX, UMICAO #### [facility] [address] [place] [address] Metalworking Specialist: Ute Dunnformed By: #### ERTPF, CK, ECENZ, VD25 #### [facility] [address] [place] [address] Metalworking Specialist: Lorelei Dunn Hgb0.6 %Normal0-5St. Vincent HospitalComment on above:Result Comment: Reference Range: Non-Smokers 0-2% Average Smoker 2-4% Heavy Smoker <10%Performed By: #### OSCAR, UAX, UMICAO #### [facility] [address] [place] [address] Metalworking Specialist: Ute Dunnformed By: #### ERTPF, CK, ECENZ, VD25 #### [facility] [address] [place] [address] Metalworking Specialist: Bret Vazquez MDFIO2INFORMATION NOT PROVIDEDNormalSt. Vincent HospitalComment on above:Performed By: #### OSCAR, UAX, UMICAO #### [facility] [address] [place] [address] Metalworking Specialist: YULIA Dunnerformed By: #### ERTPF, CK, ECENZ, VD25 #### [facility] [address] [place] [address] Metalworking Specialist: Bret Vazquez MDHCO3 (Bld) [Moles/Vol]24.8 mmol/AOhjfsr82-59 St[facility] HospitalComment on above:Performed By: #### OSCAR, UAX, UMICAO #### [address] [address] Metalworking Specialist: YULIA Dunnerformed By: #### ERTPF, CK, ECENZ, VD25 #### [address] [address] Metalworking Specialist: Bret Vazquez MDNegative Base Excess1.2 mmol/LNormal0.0-2.0St. Vincent HospitalComment on above:Performed By: #### OSCAR, UAX, UMICAO #### [address] [address] Metalworking Specialist: YULIA Dunnerformed By: #### ERTPF, CK, ECENZ, VD25 #### [address] [address] Metalworking Specialist: Bret Vazquez MDOxygen saturation in Blood45.2 %Low60.0-85.0 St. [facility] HospitalComment on above:Performed By: #### OSCAR, UAX, UMICAO #### [address] [place] [address] Metalworking Specialist: YULIA Dunnerformed By: #### ERTPF, CK, ECENZ, VD25 #### [facility] [address] [place] [address] Metalworking Specialist: Yulia DunnCO249.5 mm TvSdwsnj07-53GfmuySt. Vincent HospitalComment on above:Performed By: #### OSCAR, UAX, UMICAO #### [facility] [address] [place] [address] Metalworking Specialist: Ute Dunnformed By: #### ERTPF, CK, ECENZ, VD25 #### [facility] [address] [place] [address] Metalworking Specialist: Yulia Dunn (Bld)7.320 [pH]Normal7.320-7.420St. Vincent HospitalComment on above:Performed By: #### OSCAR, UAX, UMICAO #### [facility] [address] [place] [address] Metalworking Specialist: Ute Dunnformed By: #### ERTPF, CK, ECENZ, VD25 #### [facility] [address] [place] [address] Metalworking Specialist: Yulia DunnO227.1 mm NmQun49-00JxzylSt. Vincent HospitalComment on above:Performed By: #### OSCAR, UAX, UMICAO #### [facility] [address] [place] [address] Metalworking Specialist: Ute Dunnformed By: #### ERTPF, CK, ECENZ, VD25 #### [facility] [address] [place] [address] Metalworking Specialist: Bret Vazquez MDErythrocyte distribution width (RBC) [Ratio]15.9 %High11.8-14.4St. Vincent HospitalComment on above:Performed By: #### OSCAR, UAX, UMICAO #### [address] [address] Metalworking Specialist: YULIA Dunnerformed By: #### ERTPF, CK, ECENZ, VD25 #### [address] [address] Metalworking Specialist: Bret Vazquez MDHematocrit (Bld) [Volume fraction]38.2 %Low 40.7-50.3Msouthwest general health centery [facility] Of East Los AngelesComment on above:Performed By: #### OSCAR, UAX, UMICAO #### [address] [address] Metalworking Specialist: YULIA Dunnerformed By: #### ERTPF, CK, ECENZ, VD25 #### [place] [address] Metalworking Specialist: Bret Vazquez MDHemoglobin (Bld) [Mass/Vol]12.3 g/dLLow13.0-17.0 [facility] HospitalComment on above:Performed By: #### OSCAR, UAX, UMICAO #### [address] [address] Metalworking Specialist: YULIA Dunnerformed By: #### ERTPF, CK, ECENZ, VD25 #### [address] [address] Metalworking Specialist: MARGARET DunnCH (RBC) [Entitic mass]32.[address]eSxpjmj50.2-33.5 [facility] HospitalComment on above:Performed By: #### OSCAR, UAX, UMICAO #### [address] [address] Metalworking Specialist: Bret Madoff, MDPerformed By: #### ERTPF, CK, ECENZ, VD25 #### [facility] [address] [place] [address] Metalworking Specialist: MARGARET DunnCHC (RBC) [Mass/Vol]32.2 g/kYCizdeo82.4-34.8 [facility] HospitalComment on above:Performed By: #### OSCAR, UAX, UMICAO #### [facility] [address] [place] [address] Metalworking Specialist: YULIA Dunnerformed By: #### ERTPF, CK, ECENZ, VD25 #### [address] [address] Metalworking Specialist: MARGARET DunnCV (RBC) [Entitic vol]99.[address]zlfud13.6-102.9 [facility] HospitalComment on above:Performed By: #### OSCAR, UAX, UMICAO #### [place] [address] Metalworking Specialist: Ute Dunnformed By: #### ERTPF, CK, ECENZ, VD25 #### [facility] [address] [place] [address] Metalworking Specialist: Bret Vazquez MDNRBC Automated0.0 per [address] Vincent HospitalComment on above:Performed By: #### OSCAR, UAX, UMICAO #### [address] [address] Metalworking Specialist: Ute Dunnformed By: #### ERTPF, CK, ECENZ, VD25 #### [facility] [address] [place] [address] Metalworking Specialist: Soy Dunntelet mean volume (Bld) [Entitic vol]10.0 fL Normal8.1-13.5[facility] Point Medical CenterComment on above:Performed By: #### OSCAR, UAX, UMICAO #### [facility] [address] [place] [address] Metalworking Specialist: Ute Dunnformed By: #### ERTPF, CK, ECENZ, VD25 #### [facility] [address] [place] [address] Metalworking Specialist: Sylvia Dunn (Bld) [#/Vol]307 10*3/rNKnplll091-115 St. [facility] HospitalComment on above:Performed By: #### OSCAR, UAX, UMICAO #### [facility] [address] [place] [address] Metalworking Specialist: Ute Dunnformed By: #### ERTPF, CK, ECENZ, VD25 #### [facility] [address] [place] [address] Metalworking Specialist: LUCITA Dunn (d) [#/Vol]3.83 10*6/uLLow4.21-5.77St. Vincent HospitalComment on above:Performed By: #### OSCAR, UAX, UMICAO #### [facility] [address] [place] [address] Metalworking Specialist: Ute Dunnformed By: #### ERTPF, CK, ECENZ, VD25 #### [facility] [address] [place] [address] Metalworking Specialist: LINDA Dunn (d) [#/Vol]11.5 10*3/uLHigh3.5-11.3MSt. Mary Regional Medical CenterComment on above:Performed By: #### OSCAR, UAX, UMICAO #### [facility] [address] [place] [address] Metalworking Specialist: YULIA Dunnerformed By: #### ERTPF, CK, ECENZ, VD25 #### [facility] [address] [place] [address] Metalworking Specialist: Leopoldo Dunn FOR SERVICES PERFORMEDNoZanesville City HospitalComment on above:Performed By: #### OSCAR UAX, UMICAO #### [facility] [address] [place] [address] Metalworking Specialist: YULIA Dunnerformed By: #### ERTPF, CK, ECENZ, VD25 #### [facility] [address] [place] [address] Metalworking Specialist: Carmencita Dunnop/Myoglobinon 46-76-1271Jkpkbqnrf [Mass/Vol] 377 ng/bTEfbd57-15VjrvnSt. Vincent HospitalComment on above:Performed By: #### DONATO MOOREX, UMICAO #### [facility] [address] [place] [address] Metalworking Specialist: YULIA Dunnerformed By: #### ERTPF, CK, ECENZ, VD25 #### [facility] [address] [place] [address] Metalworking Specialist: Jason Dunn High Sens12 ng/LNormal0-22St. Vincent HospitalComment on above:Result Comment: High Sensitivity Troponin values cannot be compared with other Troponin methodologies. Patients with high levels of Biotin oral intake (i.e >5mg/day) may have falsely decreased Troponin levels. Samples collected within 8 hours of biotin intake may require additional information for diagnosis.Performed By: #### OSCAR, UAX, UMICAO #### [facility] [address] [place] [address] Metalworking Specialist: YULIA Dunnerformed By: #### ERTPF, CK, ECENZ, VD25 #### [facility] [address] [place] [address] Metalworking Specialist: Bret Vazquez MDVitamin D 25 OHon 76-48-5452Jbuppyg D 25 OH37.8 ng/mLNormal>29.9St. Vincent HospitalComment on above:Result Comment: Reference Range: Vitamin D status Range Deficiency <20 ng/mL Mild Deficiency 20-30 ng/mL Sufficiency 30-100 ng/mL Toxicity >100 ng/mLPerformed By: #### OSCAR, UAX, UMICAO #### [facility] [address] [place], [place] [id number] Metalworking Specialist: YULIA Dunnerformed By: #### ERTPF, CK, ECENZ, VD25 #### [facility] [address] [place], [place] [address] Metalworking Specialist: ADRIAN DunnR TIBIA FIBULA LEFT (2 VIEWS)on 59-28-5305NA TIBIA FIBULA LEFT (2 VIEWS)EXAMINATION: 2 XRAY VIEWS OF THE LEFT TIBIA [...] Signed by: Los Araujo MD 09/05/22 Final resultNormalSt. Vincent HospitalQ - CBC (H/H,RBC,INDICES,WBC,PLT)on 52-58-3634Htqqifstlpf distribution width (RBC) [Ratio]13.7 %Vxqkzn50.0-15.0[facility] [place] SpecialistComment on above: Order Comment: [facility] performed at: [place], [employer] [facility], [address] [place] [address], [address] [place] [address], [address] [place] [address], Bag Hanger: Juan Daniel Mckeon Collection Date/Time: Results Received Date/Time: 20220222Quest Reported Date/Time: [id number] By: #### TSH, CMP, LIPD #### [facility] [address] [place], [place] [id number] (Bld) [Volume fraction]42.5 %Colwnz55.5-50.0 [facility] SpecialistComment on above:Order Comment: [facility] performed at: [employer] [facility], [address] [place] [address], [address] [place] [address], [address] [place] [address], Bag Hanger: Juan Daniel Mckeon Collection Date/Time: Results Received Date/Time: Reported Date/Time: [id number] By: #### TSH, CMP, LIPD #### [facility] [address] [place], [place] [id number] (Bld) [Mass/Vol]14.3 g/yOExtaxb41.2-17.1[facility] SpecialistComment on above:Order Comment: [facility] performed at: [employer] [facility], [address] [place] [address], [address] [place] [address], [address] [place] [address], Bag Hanger: Juan Daniel Mckeon Collection Date/Time: Results Received Date/Time: Reported Date/Time: [id number] By: #### TSH, CMP, LIPD #### [facility] [address] [place], [place] [id number] (RBC) [Entitic mass]32.9 qcVjnufw10.0-33.0[facility] SpecialistComment on above:Order Comment: [facility] performed at: [employer] [facility], [address] [place] [address], [address] [place] [address], [phone], Bag Hanger: Juan Daniel Mckeon Collection Date/Time: Results Received Date/Time: Reported Date/Time: [id number] By: #### TSH, CMP, LIPD #### [facility] [address] [place], [place] [id number] (RBC) [Mass/Vol]33.6 g/xWFyvkcm31.0-36.0NoSt. Francis Hospital SpecialistComment on above:Order Comment: [facility] performed at: [employer] [facility], [address] [place] [address], [address] [place] [address], [phone], Bag Hanger: Juan Daniel Mckeon Collection Date/Time: Results Received Date/Time: Reported Date/Time: [id number] By: #### TSH, CMP, LIPD #### [facility] [address] [place], [place] [id number] (RBC) [Entitic vol]97.9 tSEpnwuf02.0-100.0[facility] SpecialistComment on above:Order Comment: [facility] performed at: [employer] [facility], [address] [place] [address], [address] [place] [address], [phone], Bag Hanger: Juan Daniel Mckeon Collection Date/Time: Results Received Date/Time: Reported Date/Time: [id number] By: #### TSH, CMP, LIPD #### [facility] [address] [place], [place] [id number] mean volume (Bld) [Entitic vol]11.0 fLNormal7.5-12.5 [facility] SpecialistComment on above:Order Comment: [facility] performed at: [employer], [address] [place] [address], [address] [place] [address], [address] [place] [address], Bag Hanger: Juan Daniel Mckeon Collection Date/Time: Results Received Date/Time: [id number] Reported Date/Time: [id number] By: #### TSH, CMP, LIPD #### [facility] [address] [place], [place] [id number] (Bld) [#/Vol]398 10*3/eOZgyigi708-945Jibjrfgt [place] [facility] SpecialistComment on above:Order Comment: [facility] performed at: [place], [employer] [facility], [address] [place] [address], [address] [place] [address], [address] [place] [address], Bag Hanger: Juan Daniel Mckeon Collection Date/Time: Results Received Date/Time: [id number] Reported Date/Time: [id number] By: #### TSH, CMP, LIPD #### [facility] [address] [facility], [place] [id number] (Bld) [#/Vol]4.34 10*6/uLNormal4.20-5.80NoSt. Francis Hospital SpecialistComment on above:Order Comment: [facility] performed at: [place], [employer] [facility], [address] [place] [address], [address] [place] [address], [address] [place] [address], Bag Hanger: Juan Daniel Mckeon Collection Date/Time: [id number] Results Received Date/Time: [id number] Reported Date/Time: [id number] By: #### TSH, CMP, LIPD #### [facility] [address] [facility] [place], [place] [id number] (Bld) [#/Vol]9.7 10*3/uLNormal3.8-10.8NoSt. Francis Hospital SpecialistComment on above:Order Comment: [facility] performed at: [place], [employer] [facility], [address] [place] [address], [address] [facility], [place], [address], Bag Hanger: Juan Daniel Cool MDQuest Collection Date/Time: Results Received Date/Time: [id number] Reported Date/Time: [id number] By: #### TSH, CMP, LIPD #### [facility] [address] [place], [place] [id number] Metabolic Panelon 65-59-8476Jipsptt [Mass/Vol] 3.2 g/dLLow3.6-5.1[facility] [place] SpecialistComment on above:Performed By: #### TSH, CMP, LIPD #### [facility] [address] [place], [place] [id number]/Globulin [Mass ratio]1.2 {ratio}Normal1.0-2.5[facility] SpecialistComment on above:Performed By: #### TSH, CMP, LIPD #### [facility] [address] [place], [place] [id number] [Catalytic activity/Vol]100 U/AYdcqqr05-422Nrrrljtz [place] [facility] SpecialistComment on above:Performed By: #### TSH, CMP, LIPD #### [facility] [address] [place], [place] [id number] [Catalytic activity/Vol]11 U/LNormal9-46Nortoro valley hospitaln [facility] [place] SpecialistComment on above:Result Comment: 09/23/2021 Female reference range changed.Performed By: #### TSH, CMP, LIPD #### [facility] [address] [place], [place] [id number] gap [Moles/Vol]18 mmol/ENmpwpv83-58Pnyoxsft [facility] SpecialistComment on above:Result Comment: Effective 10/29/2019 reference range changed.Performed By: #### TSH, CMP, LIPD #### [facility] [address] [place], [place] [id number] [Catalytic activity/Vol]14 U/GDkholf75-75Bstmdwbo [facility] [place] SpecialistComment on above:Performed By: #### TSH, CMP, LIPD #### [facility] [address] [place], [place] [id number] [Mass/Vol]1.17 mg/dLNormal0.30-1.20[facility] SpecialistComment on above:Performed By: #### TSH, CMP, LIPD #### [facility] [address] [place], [place] [id number]/CREA14 RatioNormal6-22Nortoro valley hospitaln [place] [employer] Assistant Comment on above:Performed By: #### TSH, CMP, LIPD #### [facility] [address] [place], [place] [id number] [Mass/Vol]8.3 mg/dLLow8.6-10.2[facility] SpecialistComment on above:Performed By: #### TSH, CMP, LIPD #### [facility] [address] [place], [place] [id number] [Moles/Vol]103 mmol/HRbgaje87-783Dtxrwpig [place] [facility] SpecialistComment on above:Performed By: #### TSH, CMP, LIPD #### [facility] [address] [place], [place] [id number] [Moles/Vol]25 mmol/FEsmtlg23-76Mfdqlvlx [place] [facility] SpecialistComment on above:Performed By: #### TSH, CMP, LIPD #### [facility] [address] [place], [place] [id number] [Mass/Vol]0.8 mg/dLNormal0.7-1.4[facility] SpecialistComment on above:Performed By: #### TSH, CMP, LIPD #### [facility] [address] [place], [place] [id number] mL/min/1.96q9Xpkewt>60[facility] SpecialistComment on above:Performed By: #### TSH, CMP, LIPD #### [facility] [address] [place], [place] [id number] mL/min/1.04t7Gcgpbk>60[facility] [place] [facility] SpecialistComment on above:Performed By: #### TSH, CMP, LIPD #### [facility] [address] [place], [place] [id number] (S) [Mass/Vol]2.6 g/dLNormal1.9-3.7NoSt. Francis Hospital SpecialistComment on above:Performed By: #### TSH, CMP, LIPD #### [facility] [address] [place], [place] [id number] [Mass/Vol]110 mg/fPPucb50-03Xkvbmkmc [place] [facility] SpecialistComment on above:Result Comment: For FASTING Glucose --- ADA reference ranges: Normal 65-99 mg/dl Prediabetes 100-125 Diabetes >/= 126Performed By: #### TSH, CMP, LIPD #### [facility] [address] [place], [place] [id number] [Moles/Vol]3.5 mmol/LNormal3.5-5.5NoSt. Francis Hospital SpecialistComment on above:Performed By: #### TSH, CMP, LIPD #### [facility] [address] [place], [place] [id number] [Mass/Vol]5.8 g/dLLow6.1-8.1[facility] SpecialistComment on above:Performed By: #### TSH, CMP, LIPD #### [facility] [address] [place], [place] [id number] [Moles/Vol]142 mmol/GRnwnis077-585Tsnpgkmz [place] [facility] SpecialistComment on above:Performed By: #### TSH, CMP, LIPD #### [facility] [address] [place], [place] [id number] nitrogen [Mass/Vol]11 mg/dLNormal7-25NoSt. Francis Hospital SpecialistComment on above:Performed By: #### TSH, CMP, LIPD #### [facility] [address] [place], [place] [id number] Panelon 72-57-6695Bqszzehujyo [Mass/Vol]177 mg/dLNormal 125-200NoSt. Francis Hospital SpecialistComment on above:Result Comment: Low risk < 200mg/dL Borderline risk 201-239 mg/dl High risk > or equal to 240Performed By: #### TSH, CMP, LIPD #### [facility] [address] [place], [place] [id number] in HDL [Mass/Vol]87 mg/dLNormal>40NortOhio [facility] SpecialistComment on above:Result Comment: High Cardiovascular Risk HDL <40 mg/dL Low Cardiovascular Risk HDL > or equal to 60 mg/dlPerformed By: #### TSH, CMP, LIPD #### [facility] [address] [place], [place] [id number] in LDL [Mass/Vol]64 mg/dLNormalNoon license of unc medical centern [facility] [place] SpecialistComment on above:Result Comment: LDL ATP III CLASSIFICATION LDL less than 100 mg/dl Optimal LDL 100-129 mg/dl Near or above optimal LDL 130-159 Borderline high LDL 160-189 High LDL greater than 189 mg/dl Very HighPerformed By: #### TSH, CMP, LIPD #### [facility] [address] [place], [place] [id number] in VLDL [Mass/Vol]26 mg/dLNormalNoSt. Francis Hospital SpecialistComment on above:Performed By: #### TSH, CMP, LIPD #### [facility] [address] [place], [place] [id number].total/Cholesterol in HDL [Mass ratio]2 {ratio} NormalNorthern [facility], [place] SpecialistComment on above:Performed By: #### TSH, CMP, LIPD #### [facility] [address] [place], [place] [id number] [Mass/Vol]131 mg/lVDljitr22-658Gtznubjn [place] [facility] SpecialistComment on above:Result Comment: TRIG ATPIII CLASSIFICATIONS TRIG less than 150 mg/dl Normal TRIG 150-199 mg/dl Borderline High TRIG 200-500 mg/dl High TRIG greather than 500 mg/dl Very HighPerformed By: #### TSH, CMP, LIPD #### [facility] [address] [place], [place] [id number] SCREEN (MEDICARE)on 22-06-9057SECG7.330 ng/mLHigh<4.000 [facility] HospitalComment on above:Result Comment: PSA Test Method: ECLIA/Horacio e 601Performed By: #### TSH, CMP, LIPD #### [facility] [address] [place], [place] [id number] 69-16-4085QEA2.060 uIU/mLNormal0.400-4.500Nortoro valley hospitaln [place] HospiceComment on above:Performed By: #### TSH, CMP, LIPD #### [facility] [address] [place], [place] [id number] Reporton [id number] ReportMR#: [id number] I [facility] Pt. Name: Indio Collado Room #: [id number] Discharge 02/16/2022 Date: Birthdate: 1955 OPERATIVE REPORT DATE OF SURGERY: 02/15/2022 SURGEON: Luis Yang M.D. DYNAMOMETER REPAIRER: MD Kell and ANABELL Cedeño. ANESTHESIA: General [...] arthrotomy was closed itself with #2 interrupted vrbdqx-yj-bziso suture. The remainder of the incision closed [...] Ricky/Luis Yang M.D. Date Trans: 02/17/2022 01:02 P/mmo DN_JN:[id number] cc: Luis Velazquez M.D. 3 [address]BASIC METABOLIC PANELon 85-74-4259Hrrqrnv [Mass/Vol]8.1 mg/dLLow8.6-10.3The [facility] HospitalComment on above:Order Comment: No: Do not add to previous draw Performed By: #### [id number] #### [facility] [address] [place] [address], USAChloride [Moles/Vol]101 mmol/TEwtvfp42-145Pep [facility] HospitalComment on above:Order Comment: No: Do not add to previous drawPerformed By: #### [id number] #### [facility] [address] [place] [address], USACO2 [Moles/Vol]27 mmol/MXpxmhx93-43Dfh [facility] HospitalComment on above:Order Comment: No: Do not add to previous draw Performed By: #### 93330 #### [facility] [address] [place] [address], USACreatinine [Mass/Vol]0.68 mg/dLLow0.70-1.30The [facility] HospitalComment on above:Order Comment: No: Do not add to previous drawPerformed By: #### [id number] #### [facility] [address] [place] [address], USAGFR/1.73 sq M.predicted among blacks MDRD (S/P/Bld) [Vol rate/Area]mL/min/{1.73_m2}Normal>60The [facility] Comment on above:Order Comment: No: Do not add to previous drawPerformed By: #### [id number] #### [facility] [address] [place] [address], USAGFR/1.73 sq M.predicted among non-blacks MDRD (S/P/Bld) [Vol rate/Area]mL/min/{1.73_m2}Normal>60The [facility] Comment on above:Order Comment: No: Do not add to previous drawPerformed By: #### [id number] #### [facility] [address] [place] [address], USAGlucose [Mass/Vol]124 mg/xATwax27-319Lbw [facility] HospitalComment on above:Order Comment: No: Do not add to previous drawPerformed By: #### [id number] #### [facility] [address] [place] [address], USAPotassium [Moles/Vol]3.3 mmol/LLow3.5-5.1The [facility] HospitalComment on above:Order Comment: No: Do not add to previous drawPerformed By: #### [id number] #### [facility] [address] [place] [address], USASodium [Moles/Vol]136 mmol/KKkfkze029-441Hrc [facility] HospitalComment on above:Order Comment: No: Do not add to previous drawPerformed By: #### 50983 #### [facility] [address] [place] [address], USAUrea nitrogen [Mass/Vol]11 mg/dLNormal7-25The [facility] HospitalComment on above:Order Comment: No: Do not add to previous drawPerformed By: #### 34663 #### [facility] [address] [facility] [address], USACBC W/DIFFon 80-19-4663EHE IMM GRANS0.1 10*3/uLNormal 0.0-0.2The [facility] HospitalComment on above:Order Comment: No: Do not add to previous drawPerformed By: #### 50304 #### [facility] [address] [facility] [place] [address], USAABS GNVORPWFEJP63.2 10*3/uLHigh1.6-7.6The [facility] HospitalComment on above:Order Comment: No: Do not add to previous drawPerformed By: #### 47479 #### [facility] [address] [facility] [place] [address], USABasophils (Bld) [#/Vol]0.0 10*3/uLNormal0.0-0.2The [facility] HospitalComment on above:Order Comment: No: Do not add to previous drawPerformed By: #### 90149 #### [facility] [address] [facility] [place] [address], USABasophils/100 WBC (Bld)0.1 %Normal0.0-1.0The [facility] HospitalComment on above:Order Comment: No: Do not add to previous drawPerformed By: #### 94646 #### [facility] [address] [place] [address], USAEosinophils (Bld) [#/Vol]0.0 10*3/uLNormal0.0-0.5The [facility] HospitalComment on above:Order Comment: No: Do not add to previous drawPerformed By: #### [id number] #### [facility] [address] [place] [address], USAEosinophils/100 WBC (Bld)0.0 %Normal0.0-6.0The [facility] HospitalComment on above:Order Comment: No: Do not add to previous drawPerformed By: #### 23805 #### [facility] [address] [place] [address], USAErythrocyte distribution width (RBC) [Ratio]15.9 %High 11.5-15.0The [facility] HospitalComment on above:Order Comment: No: Do not add to previous drawPerformed By: #### 42200 #### [facility] [address] [facility] [place] [address], USAHematocrit (Bld) [Volume fraction]34.9 %Low39.0-50.0The [facility] HospitalComment on above:Order Comment: No: Do not add to previous drawPerformed By: #### 50354 #### [facility] [address] [facility] [facility] [place] [address], USAHemoglobin (Bld) [Mass/Vol]12.0 g/dLLow13.0-17.0The [facility] HospitalComment on above:Order Comment: No: Do not add to previous drawPerformed By: #### 22350 #### [facility] [address] [facility] [place] [address], USAIMMATURE GRANS0.5 %Normal0.0-1.0The [facility] HospitalComment on above:Order Comment: No: Do not add to previous draw Performed By: #### 26135 #### [facility] [address] [facility] [place] [address], USALymphocytes (Bld) [#/Vol]0.8 10*3/uLLow1.2-4.0The [facility] HospitalComment on above:Order Comment: No: Do not add to previous drawPerformed By: #### 03161 #### [facility] [address] [place] [address], [facility]DI[facility] MEDICAL CENTERLymphocytes/100 WBC (Bld)6.4 %Low20.0-45.0The [facility] HospitalComment on above:Order Comment: No: Do not add to previous drawPerformed By: #### 87068 #### [facility] [address] [place] [address], [facility] CITYH (RBC) [Entitic mass]31.9 lsLapkin72.0-33.0The [facility] HospitalComment on above:Order Comment: No: Do not add to previous drawPerformed By: #### 81116 #### [facility] [address] [place] [address], [facility] CITYHC (RBC) [Mass/Vol]34.4 g/iIMfhjsg04.0-35.0The [facility] HospitalComment on above:Order Comment: No: Do not add to previous drawPerformed By: #### 57932 #### [facility] [address] [place] [address], [facility]V (RBC) [Entitic vol]92.8 iPKxrzxe98.0-98.0The [facility] HospitalComment on above:Order Comment: No: Do not add to previous drawPerformed By: #### 07684 #### [facility] [address] [place] [address], USAMonocytes (Bld) [#/Vol]0.8 10*3/uLNormal0.1-1.0The Adams County HospitalComment on above:Order Comment: No: Do not add to previous drawPerformed By: #### [id number] #### [facility] [address] [place] [address], USAMONOS5.9 %Normal5.0-12.0The [facility] HospitalComment on above:Order Comment: No: Do not add to previous drawPerformed By: #### [id number] #### [facility] [address] [place] [address], USANeutrophils/100 WBC (Bld)87.1 %High40.0-72.0The [facility] HospitalComment on above:Order Comment: No: Do not add to previous drawPerformed By: #### [id number] #### [facility] [address] [place] [address], USANucleated RBC/100 WBC (Bld) [Ratio]0 %Normal0-0The [facility] HospitalComment on above:Order Comment: No: Do not add to previous drawPerformed By: #### [id number] #### [facility] [address] [place] [address], USAPLAT JSD460 10*3/iAFbjlxh579-896Hxb [facility] HospitalComment on above:Order Comment: No: Do not add to previous draw Performed By: #### [id number] #### [facility] [address] [place] [address], USARBC (Bld) [#/Vol]3.76 10*6/uLLow4.20-5.70The [facility] HospitalComment on above:Order Comment: No: Do not add to previous drawPerformed By: #### [id number] #### [facility] [address] [place] [address], USAWBC (Bld) [#/Vol]12.88 10*3/uLHigh4.00-10.60The [facility] HospitalComment on above:Order Comment: No: Do not add to previous drawPerformed By: #### [id number] #### [facility] [address] [place] [address], USAPROTHROMBIN TIMEon 59-40-1519MND Coag (PPP) [Relative time] 1.20 {INR}High0.91-1.16The [facility] HospitalComment on above: Order Comment: No: Do not add to previous drawResult Comment: ACCCP RECOMMENDED INR FOR WARFARIN THERAPY ------- CONDITION INR PROPHYLAXIS OF VENOUS THROMBOSIS 2-3 (HIGH-RISK SURGERY) TREATMENT OF VENOUS THROMBOSIS 2-3 TREATMENT OF PULMONARY EMBOLISM 2-3 PREVENTION OF SYSTEMIC EMBOLISM: 2-3 ACUTE MYOCARDIAL INFARCTION TISSUE HEART VALVES VALVULAR HEART DISEASE ATRIAL FIBRILLATION RECURRENT SYSTEMIC EMBOLISM MECHANICAL HEART VALVE 2.5-3.5 FROM: ORAL ANTICOAGULANTS. MECHANISM OF ACTION, CLINICAL EFFECTIVENESS, AND OPTIMAL THERAPEUTIC RANGE. CHEST 1995;108:231S-246S.Performed By: #### [id number] #### [facility] [address] [facility] [place] [address], [facility] CENTERPT Coag (PPP) [Time]15.2 sHigh12.3-14.8The [facility] County HospitalComment on above:Order Comment: No: Do not add to previous drawResult Comment: ALL RESULTS MUST BE INTERPRETED WITH RESPECT TO BLOOD DRAWING ARTIFACT OR DILUTION ERROR OF ANTICOAGULANT AT THE TIME OF SAMPLING.Performed By: #### [id number] #### [facility] [address] [facility] [place] [address], [facility]*ANAEROBIC CULTUREon 02-15-2022*ANAEROBIC CULTUREClinical Report: (D) Specimen/Source: TISSUE/INTRAOP SPEC Collected: 02/15/2022 10:06 Status: Final Last Updated: 02/20/2022 09:09 (1) 3. Right Medial Lateral Synovium CULT RES (Final) No Anaerobes Isolated 5 DaysNormalThMarietta Osteopathic ClinicComment on above:Order Comment: 3. Right Medial Lateral SynoviumPerformed By: #### [id number] #### [facility] [address] [place] [address], [facility]*ANAEROBIC CULTUREClinical Report: (D) Specimen/Source: FLUID/INTRAOP SPEC Collected: 02/15/2022 10:06 Status: Final Last Updated: 02/20/2022 09:09 (1) 1. Right Knee Joint Fluid CULT RES (Final) No Anaerobes Isolated [address] Vincent Medical CenterComment on above:Order Comment: 1. Right Knee Joint FluidPerformed By: #### [id number] #### [facility] [address] [place] [address], [facility]*ANAEROBIC CULTUREClinical Report: (D) Specimen/Source: TISSUE/INTRAOP SPEC Collected: 02/15/2022 10:06 Status: Final Last Updated: 02/20/2022 09:09 (1) 2. Right Knee Medial Synovium CULT RES (Final) No Anaerobes Isolated [address] Vincent Medical CenterComment on above:Order Comment: 2. Right Knee Medial SynoviumPerformed By: #### [id number] #### [facility] [address] [place] [address], [facility]*BODY FLUID CULTUREon 02-15-2022*BODY FLUID CULTUREClinical Report: (D) Specimen/Source: FLUID/INTRAOP SPEC Collected: 02/15/2022 10:06 Status: Final Last Updated: 02/20/2022 07:33 (1) 1. Right Knee Joint Fluid GRAM (Final) Moderate Polys No Bacteria Seen CULT RES (Final) No Growth Day 5[facility]ier HospitalComment on above: Order Comment: 1. Right Knee Joint FluidPerformed By: #### [id number] #### [facility] [address] [place] [address], [facility]*TISSUE CULTUREon 02-15-2022*TISSUE CULTUREClinical Report: (D) Specimen/Source: TISSUE/INTRAOP SPEC Collected: 02/15/2022 10:06 Status: Final Last Updated: 02/20/2022 07:33 (1) 3. Right Medial Lateral Synovium GRAM (Final) Rare Polys No Bacteria Seen CULT RES (Final) No Growth Day 5[facility]pel[facility] HospitalComment on above: Order Comment: 3. Right Medial Lateral SynoviumPerformed By: #### [id number] #### [facility] [address] [place] [address], [facility]*TISSUE CULTUREClinical Report: (D) Specimen/Source: TISSUE/INTRAOP SPEC Collected: 02/15/2022 10:06 Status: Final Last Updated: 02/20/2022 07:34 (1) 2. Right Knee Medial Synovium GRAM (Final) Moderate Polys No Bacteria Seen CULT RES (Final) No Growth Day 5[facility] HospitalComment on above: Order Comment: 2. Right Knee Medial SynoviumPerformed By: #### [id number] #### [facility] [address] [facility] [place] [address], [facility] CENTERAPTSoutheast [facility] 64-21-5498sVNR Coag (Bld) [Time]29.7 sNormal 25.0-35.0The [facility] County HospitalComment on above:Order Comment: No: Do not add to previous drawResult Comment: ALL RESULTS MUST BE INTERPRETED WITH RESPECT TO BLOOD DRAWING ARTIFACT OR DILUTION ERROR OF ANTICOAGULANT AT THE TIME OF SAMPLING. THE APTT SHOULD NOT BE USED TO MONITOR UNFRACTIONATED HEPARIN THERAPY, THIS LABORATORY NO LONGER HAS AN ESTABLISHED THERAPEUTIC RANGE BASED ON THE APTT. IT IS RECOMMENDED THAT THE UFH - HEPARIN ASSAY (ANTI-XA ACTIVITY) BE USED FOR THIS PURPOSE.Performed By: #### [id number], [id number] #### [facility] [address] [place] [address], USAPOC GLUCOSE LABon 53-25-1809Aruvtie [Mass/Vol]124 mg/dLHigh 70-100The [facility] HospitalComment on above:Performed By: #### [id number] #### [facility] [address] [place] [address], USAGlucose [Mass/Vol]97 mg/dSUcqpxd31-841Zqd [facility] HospitalComment on above:Performed By: #### [id number] #### [address] [place] [id number], USAPORTABLE KNEE RIGHT 2 Son [id number] KNEE RIGHT 2 SUniversCleveland Clinic [facility] Department of Radiology [address] [place] [address] [place] [id number] Patient Name: INDIO COLLADO : 1955 [...] 12/08/2021 Electronically signed: Indio Presley. Transcribed by: [email or web address], User Resident: Electronically Signed by: INDIO PRESLEY @ 02/15/2022 12:57 PMNormalThe Adams County HospitalComment on above:Order Comment: Hardware Evaluation, in PACUPROTHROMBIN TIMEon 59-81-8260QFN Coag (PPP) [Relative time] 1.14 {INR}Normal0.91-1.16The [facility] County HospitalComment on above:Order Comment: No: Do not add to previous drawResult Comment: ACCCP RECOMMENDED INR FOR WARFARIN THERAPY ------- CONDITION INR PROPHYLAXIS OF VENOUS THROMBOSIS 2-3 (HIGH-RISK SURGERY) TREATMENT OF VENOUS THROMBOSIS 2-3 TREATMENT OF PULMONARY EMBOLISM 2-3 PREVENTION OF SYSTEMIC EMBOLISM: 2-3 ACUTE MYOCARDIAL INFARCTION TISSUE HEART VALVES VALVULAR HEART DISEASE ATRIAL FIBRILLATION RECURRENT SYSTEMIC EMBOLISM MECHANICAL HEART VALVE 2.5-3.5 FROM: ORAL ANTICOAGULANTS. MECHANISM OF ACTION, CLINICAL EFFECTIVENESS, AND OPTIMAL THERAPEUTIC RANGE. CHEST 1995;108:231S-246S.Performed By: #### 66593, [id number] #### [facility] [address] [place] [address], USAPT Coag (PPP) [Time]14.6 eLwlbrj44.3-14.8The [facility] County HospitalComment on above:Order Comment: No: Do not add to previous drawResult Comment: ALL RESULTS MUST BE INTERPRETED WITH RESPECT TO BLOOD DRAWING ARTIFACT OR DILUTION ERROR OF ANTICOAGULANT AT THE TIME OF SAMPLING.Performed By: #### [id number], [id number] #### [facility] [address] [place] [address], USAComplete Blood Count with Auto Diffon 86-73-9674Ynwgavhew (Bld) [#/Vol]0.06 10*3/uLNormal0.00-0.20[facility] SpecialistComment on above:Performed By: #### TSH, CMP, LIPD #### [facility] [address] [place], [place] [id number]/100 WBC (Bld)0.9 %NormalGalion Hospital SpecialistComment on above:Performed By: #### TSH, CMP, LIPD #### [facility] [address] [place], [place] [id number] (Bld) [#/Vol]0.10 10*3/uLNormal0.02-0.50NoSt. Francis Hospital SpecialistComment on above:Performed By: #### TSH, CMP, LIPD #### [facility] [address] [place], [place] [id number]/100 WBC (Bld)1.5 %[facility] SpecialistComment on above:Performed By: #### TSH, CMP, LIPD #### [facility] [address] [place], [place] [id number] distribution width (RBC) [Ratio]17.3 %High 11.0-15.0[facility] SpecialistComment on above:Performed By: #### TSH, CMP, LIPD #### [facility] [address] [place], [place] [id number] (Bld) [Volume fraction]40.5 %Nachct42.5-50.0 [facility] SpecialistComment on above:Performed By: #### TSH, CMP, LIPD #### [facility] [address] [place], [place] [id number] (Bld) [Mass/Vol]13.5 g/tVJraeci32.0-17.1NSheltering Arms Hospital SpecialistComment on above:Performed By: #### TSH, CMP, LIPD #### [facility] [address] [place], [place] [id number] (Bld) [#/Vol]1.4 10*3/uLNormal0.9-3.9NortOhio State East Hospital SpecialistComment on above:Performed By: #### TSH, CMP, LIPD #### [facility] [address] [place], [place] [id number]/100 WBC (Bld)21.1 %NormalNortOhio State East Hospital SpecialistComment on above:Performed By: #### TSH, CMP, LIPD #### [facility] [address] [place], [place] [id number] (RBC) [Entitic mass]31.3 bkYumakk22.0-33.0NortOhio State East Hospital SpecialistComment on above:Performed By: #### TSH, CMP, LIPD #### [facility] [address] [place], [place] [id number] (RBC) [Mass/Vol]33.3 g/gIOvgkay60.0-36.0NortOhio State East Hospital SpecialistComment on above:Performed By: #### TSH, CMP, LIPD #### [facility] [address] [place], [place] [id number] (RBC) [Entitic vol]94 uPAlpwch98-389Hundvibj [facility] SpecialistComment on above:Performed By: #### TSH, CMP, LIPD #### [facility] [address] [place], [place] [id number] (Bld) [#/Vol]0.4 10*3/uLNormal0.2-0.9NortOhio State East Hospital SpecialistComment on above:Performed By: #### TSH, CMP, LIPD #### [facility] [address] [place], [place] [id number]/100 WBC (Bld)6.3 %NormalNortOhio State East Hospital SpecialistComment on above:Performed By: #### TSH, CMP, LIPD #### [facility] [address] [place], [place] [id number] (Bld) [#/Vol]4.6 10*3/uLNormal1.5-7.8NortOhio State East Hospital SpecialistComment on above:Performed By: #### TSH, CMP, LIPD #### [facility] [address] [place], [place] [id number]/100 WBC (Bld)70.0 %NormalNoSt. Francis Hospital SpecialistComment on above:Performed By: #### TSH, CMP, LIPD #### [facility] [address] [place], [place] [id number] mean volume (Bld) [Entitic vol]10.10 fLNormal 7.50-12.50NoSt. Francis Hospital SpecialistComment on above:Performed By: #### TSH, CMP, LIPD #### [facility] [address] [place], [place] [id number] (Bld) [#/Vol]280 10*3/xKViuyur675-360Xeuzpwdd [facility] SpecialistComment on above:Performed By: #### TSH, CMP, LIPD #### [facility] [address] [place], [place] [id number] (Bld) [#/Vol]4.32 10*6/uLNormal4.20-5.80NoSt. Francis Hospital SpecialistComment on above:Performed By: #### TSH, CMP, LIPD #### [facility] [address] [place], [place] [id number]-AM54.6 tQBanb28.0-50.0NoSt. Francis Hospital Specialist Comment on above:Performed By: #### TSH, CMP, LIPD #### [facility] [address] [place], [place] [id number] (Bld) [#/Vol]6.6 10*3/uLNormal3.8-11.0NoSt. Francis Hospital SpecialistComment on above:Performed By: #### TSH, CMP, LIPD #### [facility] [address] [place], [place] [id number] Metabolic Panelon 40-37-4241Ixiptfd [Mass/Vol] 3.3 g/dLLow3.6-5.1[facility] SpecialistComment on above:Performed By: #### TSH, CMP, LIPD #### [facility] [address] [place], [place] [id number]/Globulin [Mass ratio]1.4 {ratio}Normal1.0-2.5[facility] SpecialistComment on above:Performed By: #### TSH, CMP, LIPD #### [facility] [address] [place], [place] [id number] [Catalytic activity/Vol]102 U/LVlblns18-455Nuamrxxb [facility] SpecialistComment on above:Performed By: #### TSH, CMP, LIPD #### [facility] [address] [place], [place] [id number] [Catalytic activity/Vol]11 U/LNormal9-46NoSt. Francis Hospital SpecialistComment on above:Result Comment: 09/23/2021 Female reference range changed.Performed By: #### TSH, CMP, LIPD #### [facility] [address] [place], [place] [id number] gap [Moles/Vol]16 mmol/RUyulii68-29Satjjpvn [facility] SpecialistComment on above:Result Comment: Effective 10/29/2019 reference range changed.Performed By: #### TSH, CMP, LIPD #### [facility] [address] [place], [place] [id number] [Catalytic activity/Vol]18 U/JZocezc99-96Nwrzwjlf [facility] SpecialistComment on above:Performed By: #### TSH, CMP, LIPD #### [facility] [address] [place], [place] [id number] [Mass/Vol]1.96 mg/dLHigh0.30-1.20NoSt. Francis Hospital SpecialistComment on above:Performed By: #### TSH, CMP, LIPD #### [facility] [address] [place], [place] [id number]/CREA11 RatioNormal6-22NoSt. Francis Hospital Specialist Comment on above:Performed By: #### TSH, CMP, LIPD #### [facility] [address] [place], [place] [id number] [Mass/Vol]8.7 mg/dLNormal8.6-10.2[facility] SpecialistComment on above:Performed By: #### TSH, CMP, LIPD #### [facility] [address] [place], [place] [id number] [Moles/Vol]105 mmol/IIbtuqa35-070Fphobgcc [facility] SpecialistComment on above:Performed By: #### TSH, CMP, LIPD #### [facility] [address] [place], [place] [id number] [Moles/Vol]23 mmol/JMygsdk74-68Hxcvhrnu [facility] SpecialistComment on above:Performed By: #### TSH, CMP, LIPD #### [facility] [address] [place], [place] [id number] [Mass/Vol]0.7 mg/dLNormal0.7-1.4Nortoro [facility] hospitaln [facility] [place] SpecialistComment on above:Performed By: #### TSH, CMP, LIPD #### [facility] [address] [place], [place] [id number] mL/min/1.27d0Nhkwyt>60Nortoro [facility] hospitaln [facility] [place] SpecialistComment on above:Performed By: #### TSH, CMP, LIPD #### [facility] [address] [place], [place] [id number] mL/min/1.51p2Zeipmi>60NortOhio State East Hospital SpecialistComment on above:Performed By: #### TSH, CMP, LIPD #### [facility] [address] [place], [place] [id number] (S) [Mass/Vol]2.3 g/dLNormal1.9-3.7NortOhio State East Hospital SpecialistComment on above:Performed By: #### TSH, CMP, LIPD #### [facility] [address] [place], [place] [id number] [Mass/Vol]94 mg/kSBxjfaf09-45Ifczftqi [facility] SpecialistComment on above:Result Comment: For FASTING Glucose --- ADA reference ranges: Normal 65-99 mg/dl Prediabetes 100-125 Diabetes >/= 126Performed By: #### TSH, CMP, LIPD #### [facility] [address] [place], [place] [id number] [Moles/Vol]3.7 mmol/LNormal3.5-5.5NoSt. Francis Hospital SpecialistComment on above:Performed By: #### TSH, CMP, LIPD #### [facility] [address] [place], [place] [id number] [Mass/Vol]5.6 g/dLLow6.1-8.1Northern [facility] [place] SpecialistComment on above:Performed By: #### TSH, CMP, LIPD #### [facility] [address] [place], [place] [id number] [Moles/Vol]140 mmol/NLjkkrf325-048Hiqrfqqw [facility] SpecialistComment on above:Performed By: #### TSH, CMP, LIPD #### [facility] [address] [place], [place] [id number] nitrogen [Mass/Vol]7 mg/dLNormal7-25NortOhio State East Hospital SpecialistComment on above:Performed By: #### TSH, CMP, LIPD #### [facility] [address] [place], [place] [id number] 34-51-7282LVZJ286.6 ng/oROyidpn17.0-400.0NoSt. Francis Hospital SpecialistComment on above:Performed By: #### TSH, CMP, LIPD #### [facility] [address] [place], [place] [id number] Profileon 02-05-2022%FESAT18 %Vfxpra59-01Brtcyxhq [facility] SpecialistComment on above:Performed By: #### TSH, CMP, LIPD #### [facility] [address] [place], [place] [address]SP52 ug/pRIce12-793Muxedmfv [facility] SpecialistComment on above:Result Comment: Reference range change 09/09/2017. Prior reference range F 37-145 ug/dL, M 59-158 ug/dL.Performed By: #### TSH, CMP, LIPD #### [facility] [address] [place], [place] [id number] ug/rZXgi251-610Byvgealu [facility] Assistant Comment on above:Performed By: #### TSH, CMP, LIPD #### [facility] [address] [place], [place] [id number] ug/kWAxhumx721-971Gbvrvaaz [facility] Comment on above:Performed By: #### TSH, CMP, LIPD #### [facility] [address] [place], [place] [id number] 28-63-5304Aasrlapox [Mass/Vol]1.8 mg/dLNormal 1.5-2.3NoSt. Francis Hospital SpecialistComment on above:Performed By: #### TSH, CMP, LIPD #### [facility] [address] [place], [place] [id number] 44-97-0514Npdehsaoq [Mass/Vol]3.2 mg/dLNormal 2.2-4.4NoSt. Francis Hospital SpecialistComment on above:Performed By: #### TSH, CMP, LIPD #### [facility] [address] [place], [place] [id number] - VITAMIN B1 (THIAMINE),BLOODon 70-94-5575AUJSSBD B1 (THIAMINE), BLOOD, LC/MS/MS74 nmol/ZZxb34-113FnqfvegpSt. Francis Hospital Specialist Comment on above:Order Comment: Quest performed at: [facility], [employer], [address], [place], [place], , Bag Hanger: Alexis Abbott M.D.,PhDQuest Collection Date/Time: [id number] Results Received Date/Time: [id number] Reported Date/Time: [id number] Comment: Vitamin supplementation within 24 hours prior to blood draw may affect the accuracy of the results. This test was developed and its analytical performance characteristics have been determined by [employer] [place], [place]. It has not been cleared or approved by the U.S. Food and Drug Administration. This assay has been validated pursuant to the CLIA regulations and is used for clinical purposes.Performed By: #### TSH CMP, LIPD #### [facility] [address] [place], [place] [id number] - VITAMIN D 25-OH Total IAon 64-38-9138NPD D 25 OH18 ng/mL Gme32-022Wfeaotay [facility] [place] SpecialistComment on above:Order Comment: Quest performed at: [facility], [employer] [facility], [address] [facility], [address] [place] [address], [phone], Bag Hanger: Juan Daniel Cool MDQuest Collection Date/Time: [id number] Results Received Date/Time: [id number] Reported Date/Time: [id number] Comment: Vitamin D Status 25-OH Vitamin D: Deficiency: <20 ng/mL Insufficiency: 20 - 29 ng/mL Optimal: > or = 30 ng/mL For 25-OH Vitamin D testing on patients on D2-supplementation and patients for whom quantitation of D2 and D3 fractions is required, the QuestAssureD(TM) 25-OH VIT D, (D2,D3), LC/MS/MS is recommended: order code 16809 (patients >2yrs). See Note 1 Note 1 For additional information, please refer to http://education.[employer]ED[employer]/faq/HLF068 (This link is being provided for informational/ educational purposes only.)Performed By: #### TSH, CMP, LIPD #### [facility] [address] [place], [place] [id number] B12/Folateon 44-91-0679Unrqeruxb (Vitamin B12) [Mass/Vol]344 pg/gRHrjfgb545-338Zlzgiywk [place] HospiceComment on above:Result Comment: Specimen is hemolyzed. Results may be affected.Performed By: #### TSH, CMP, LIPD #### [facility] [address] [place], [place] [address]HAG59.7 ng/mLNormal>4.7[facility] Assistant Comment on above:Result Comment: Reference range change 09/09/2017. Prior reference range F 4.8-37.3 ng/mL, M 4.5-32.2 ng/mL.Performed By: #### TSH, CMP, LIPD #### [facility] [address] [place] [id number] LOWER EXTREMITY WO CONTRAST RIGHTon 43-97-3244XN LOWER EXTREMITY WO CONTRAST RIGHTUnWVUMedicine [facility] Department of Radiology [address] [place] [id number] Patient Name: INDIO COLLADO : 1955 Sex: M Age: Race: White Pt. Location: Patient Status: D Ordered Date: 12/11/2021 12:05:00 PM Completed Date: 01/02/2022 02:10 PM Requesting Provider: LUIS YANG Attending Provider: Report Copy To: LUIS VELAZQUEZ Signs & Symptoms: T84.84XA Pain due to internal orthopedic prosth dev/grft, init I10 History: [place] Comments: right knee Exam: CT LOWER EXTREMITY [...] report. Electronically signed: Rosy Grant. Transcribed by: [email or web address], User Resident: EVA RAMIREZ Electronically Signed by: ROSY GRANT @ 01/04/2022 09:38 AM I personally read this/these film(s) with this [facility] HospitalComment on above:Order Comment: right knee*MRSA/MSSA DNA NASALon 12-08-2021*MRSA/MSSA DNA NASALClinical Report: (D) Specimen: NASAL SWAB Collected: 12/08/2021 14:59 Status: Final Last Updated: 12/08/2021 21:27 MSSA DNA (Final) Negative MRSA DNA (Final) Methicillin Resistant Staphylococcus aureus DNA DetectedNoMercy Health St. Vincent Medical CenterComment on above:Performed By: #### [id number] #### [facility] [address] [address], USAC REACTIVE PROTEINon 89-33-9740QAS [Mass/Vol]7.2 mg/LHigh 0.0-7.0The [facility] County HospitalComment on above:Performed By: #### [id number] #### [facility] [address] [facility] [place] [address], USAKNEE RIGHT 3 VWSon 29-51-3394XQSX RIGHT 3 SUniMarietta Memorial Hospital Department of Radiology [address] [place] [id number] Patient Name: INDIO COLLADO : 1955 Sex: M Age: Race: Other Pt. Location: Patient Status: D Ordered Date: 12/08/2021 1:45:00 PM Completed Date: 12/08/2021 01:50 PM Requesting Provider: LUIS YANG Attending Provider: Report Copy To: Signs & Symptoms: Z96.659 Presence of unspecified artificial knee joint I10 History: [place] Comments: Evaluate Exam: KNEE RIGHT 3 VWS KNEE RIGHT 3 VWS HISTORY: Recent fall, knee pain. COMPARISON: None. IMPRESSION: 1. No fracture or dislocation. Small to moderate knee joint effusion. 2. No hardware complication. Vascular calcifications. Electronically signed: Kehinde Hahn. Transcribed by: [id number], User Resident: Electronically Signed by: KEHINDE HAHN @ 12/09/2021 02:13 [facility] HospitalComment on above:Order Comment: EvaluateQ - MICROALBUMIN,RANDOM URINE (W/CREAT)on 35-80-8253Bcinjtm DL <= 20 mg/L (U) [Mass/Vol]5.3 mg/dLNormalSee Note:[facility] SpecialistComment on above:Order Comment: Quest Testing performed at: [facility], [address] [place] [address], [address] [place] [address], [phone], Bag Hanger: Juan Daniel Cool MD [facility] Collection Date/Time: [facility] Results Received Date/Time: [facility] Reported Date/Time: [id number] Comment: Reference Range: Reference Range Not establishedPerformed By: #### [id number] #### [facility] [address] [place], [place] [address]Eeplhbqrzl (U) [Mass/Vol]173 mg/vTGtgwei24-460DdvtaqxwFirelands Regional Medical Center South CampusComment on above:Order Comment: Quest Testing performed at: [facility], [address] [place] [address], [address] [place] [address], [id number], Bag Hanger: Juan Daniel Cool MD [facility] Date/Time: [facility] Results Received Date/Time: [facility] Reported Date/Time: [id number] By: #### [id number] #### [facility] Default [address] [place], [place] [address]PRXKKMUKTEVR/CREATININE RATIO, RANDOM URINE31 mcg/mg creatHigh<30 [facility] SpecialistComment on above:Order Comment: [facility] Testing performed at: [facility], [address] [place] [address], [address] [place], [phone], Bag Hanger: Juan Daniel Cool MD [facility] Date/Time: [facility] Results Received Date/Time: [facility] Reported Date/Time: [id number] Comment: The ADA defines abnormalities in albumin excretion as follows: Albuminuria Category Result (mcg/mg creatinine) Normal to Mildly increased <30 Moderately increased 30-299 Severely increased > OR = 300 The ADA recommends that at least two of three specimens collected within a 3-6 month period be abnormal before considering a patient to be within a diagnostic category.Performed By: #### [id number] #### [facility] [address] [place], [place] [address]WZCNECQJGIM PANEL PLUSon [id number] detectedNormal NOT DETECTEDThe [facility], [facility] ShawComment on above:Performed By: #### RSPLUS ####[facility] Emixkgwzie[address] [place], [place] [address]Dr. Chris RealB. ParapertusisNot detectedNormalNOT DETECTEDThe [facility] Comment on above:Performed By: #### RSPLUS ####[facility] Jxzqezxuho9[address] [place], [place] [address]Dr. Chris RealB. PertussisNot detected NormalNOT DETECTEDThe [facility] ShawComment on above:Performed By: #### RSPLUS ####[facility] Stbhaztdqb079[address] [place], [place] [address]Dr. Chris RealChlamydia PneumoniaeNot detectedNormalNOT DETECTEDThe [facility] ShawComment on above:Performed By: #### RSPLUS ####[facility] Uyrsnvecbj65[address] [place], [place] [address]Dr. Chris Real Coronavirus 229ENot detectedNormalNOT DETECTEDThe [facility] ShawComment on above:Performed By: #### RSPLUS ####[facility] Fxrcyrnrlh149[address] [place], [place] [address]Dr. Chris RealCoronavirus NYZ0Roo detectedNormalNOT DETECTEDThe [facility] ShawComment on above:Performed By: #### RSPLUS ####[facility] Kduvmzbhxc304[address] [place], [place] [address]Dr. Chris ChangCoronavirus MR13Wfl detectedNormalNOT DETECTEDThe [facility] Comment on above:Performed By: #### RSPLUS ####[facility] Wnekughbmm9[address] [place], [place] [address]Dr. Chris ChangCoronavirus GQ52Tye detected NormalNOT DETECTEDThe [facility] ShawComment on above:Performed By: #### RSPLUS ####[facility] Pubmzlngvk285[address] [place], [place] [address]Dr. Chris RealInfluenza A H1 2009Not detectedNormalNOT DETECTEDThe [facility] ShawComment on above:Performed By: #### RSPLUS ####[facility] Qcqahrcwzc459[address] [place], [place] [address]Dr. Chris Real Influenza A H3Not detectedNormalNOT DETECTEDThe [facility] ShawComment on above:Performed By: #### RSPLUS ####[facility] Kkfmxnzwar575[address] [place], [place] [address]Dr. Chris RealInfluenza BNot detectedNormalNOT DETECTEDThe [facility] ShawComment on above:Performed By: #### RSPLUS ####[facility] Rbixhqduxu673[address] [place], [place] [address]Dr. Chris RealMetapneumovirusNot detectedNormalNOT DETECTEDThe [facility] Comment on above:Performed By: #### RSPLUS ####[facility] Caxapsgxbt711[address] [place], [place] [address]Dr. Chris RealMycoplas. PneumoniaeNot detectedNormalNOT DETECTEDThe [facility] ShawComment on above:Performed By: #### RSPLUS ####[facility] Talhgawfan9[address] [place], [place] [address]Dr. Chris ChangParainfluenza 1Not detectedNormalNOT DETECTEDThe [facility] ShawCommymichigan medical center sault on above:Performed By: #### RSPLUS ####[facility] Wwnhvvzokk17[address] [place], [place] [address]Dr. Chris ChangParainfluenza 2Not detectedNormalNOT DETECTEDThe [facility] ShawComment on above:Performed By: #### RSPLUS ####[facility] Lqyartzfdg016[address] [place], [place] [address]Dr. Chris RealParainfluenza 3Not detectedNormalNOT DETECTEDThe [facility] ShawComment on above:Performed By: #### RSPLUS ####[facility] Gibyarcyae433[address] [place], [place] [address]Dr. Chris Real Parainfluenza 4Not detectedNormalNOT DETECTEDThe [facility] ShawComment on above:Performed By: #### RSPLUS ####[facility] Ywaxhqache224[address] [place], [place] [address]Dr. Chris ChangRhino/EnterovirusNot detectedNormalNOT DETECTEDThe [facility] ShawComment on above:Performed By: #### RSPLUS ####[facility] Eyugvpiwwy228[address] [place], [place] [address]Dr. Chris RealNiya Header 1RESPIRATORY PANEL: [facility]USESSheltering [facility] Comment on above:Performed By: #### RSPLUS ####[facility] Xiigqoditb664[address] [place], [place] [address]Dr. Chris RealNiya Header 2RESPIRATORY PANEL: BACTERIANoKettering Health SpringfieldComment on above:Performed By: #### RSPLUS ####[facility] Qzmzodmvea374[address] [place], [place] [address]Dr. Chris ChangRSVNot detectedNormalNOT DETECTEDThe [facility] Comment on above:Performed By: #### RSPLUS ####[facility] Pnifflvujy489[address] [place], [place] [address]Dr. Chris Hollis-CoV-2 (COVID-19) RNA GAIL+probe Ql (Unsp spec)DetectedCritically abnormalNOT DETECTEDThe [facility] ShawCommymichigan medical center sault on above:Performed By: #### RSPLUS ####[facility] Jccgijopdp138[address] [place], [place] [address]Dr. Chris Fuentesplete Blood Count with Auto Diffon [id number] (Bld) [#/Vol]0.07 10*3/uLNormal 0.00-0.20[facility] SpecialistComment on above:Performed By: #### VITD, MG, PHOS, FERR, CBCAD, FE Prof, CMP #### [facility] [address] [place], [place] [id number]/100 WBC (Bld)0.9 %[facility] SpecialistComment on above:Performed By: #### VITD, MG, PHOS, FERR, CBCAD, FE Prof, CMP #### [facility] [address] [place], [place] [id number] (Bld) [#/Vol]0.20 10*3/uLNormal0.02-0.50[facility] SpecialistComment on above:Performed By: #### VITD, MG, PHOS, FERR, CBCAD, FE Prof, CMP #### [facility] [address] [place], [place] [id number]/100 WBC (Bld)2.6 %[facility] SpecialistComment on above:Performed By: #### VITD, MG, PHOS, FERR, CBCAD, FE Prof, CMP #### [facility] [address] [place], [place] [id number] distribution width (RBC) [Ratio]15.0 %Normal 11.0-15.0[facility] SpecialistComment on above:Performed By: #### VITD, MG, PHOS, FERR, CBCAD, FE Prof, CMP #### [facility] [address] [place], [place] [id number] (Bld) [Volume fraction]45.1 %Xjntmt06.5-50.0 [facility] SpecialistComment on above:Performed By: #### VITD, MG, PHOS, FERR, CBCAD, FE Prof, CMP #### [facility] [address] [place], [place] [id number] (Bld) [Mass/Vol]14.7 g/oUEerdcj29.0-17.1NSheltering Arms Hospital SpecialistComment on above:Performed By: #### VITD, MG, PHOS, FERR, CBCAD, FE Prof, CMP #### [facility] [address] [place], [place] [id number] (Bld) [#/Vol]1.8 10*3/uLNormal0.9-3.9NoSt. Francis Hospital SpecialistComment on above:Performed By: #### VITD, MG, PHOS, FERR, CBCAD, FE Prof, CMP #### [facility] [address] [place], [place] [id number]/100 WBC (Bld)23.4 %NormalNortOhio State East Hospital SpecialistComment on above:Performed By: #### VITD, MG, PHOS, FERR, CBCAD, FE Prof, CMP #### [facility] [address] [place], [place] [id number] (RBC) [Entitic mass]28.1 otZcuvvt05.0-33.0NoSt. Francis Hospital SpecialistComment on above:Performed By: #### VITD, MG, PHOS, FERR, CBCAD, FE Prof, CMP #### [facility] [address] [place], [place] [id number] (RBC) [Mass/Vol]32.6 g/dXSdodfg09.0-36.0[facility] SpecialistComment on above:Performed By: #### VITD, MG, PHOS, FERR, CBCAD, FE Prof, CMP #### [facility] [address] [place], [place] [id number] (RBC) [Entitic vol]86 cXHfwfpv52-011Lekxpyyb [facility] SpecialistComment on above:Performed By: #### VITD, MG, PHOS, FERR, CBCAD, FE Prof, CMP #### [facility] [address] [place], [place] [id number] (Bld) [#/Vol]0.5 10*3/uLNormal0.2-0.9[facility] SpecialistComment on above:Performed By: #### VITD, MG, PHOS, FERR, CBCAD, FE Prof, CMP #### [facility] [address] [place], [place] [id number]/100 WBC (Bld)6.7 %NormalGalion Hospital SpecialistComment on above:Performed By: #### VITD, MG, PHOS, FERR, CBCAD, FE Prof, CMP #### [facility] [address] [place], [place] [id number] (Bld) [#/Vol]5.2 10*3/uLNormal1.5-7.8NoSt. Francis Hospital SpecialistComment on above:Performed By: #### VITD, MG, PHOS, FERR, CBCAD, FE Prof, CMP #### [facility] [address] [place], [place] [id number]/100 WBC (Bld)66.3 %NormalNoSt. Francis Hospital SpecialistComment on above:Performed By: #### VITD, MG, PHOS, FERR, CBCAD, FE Prof, CMP #### [facility] [address] [place], [place] [id number] mean volume (Bld) [Entitic vol]10.40 fLNormal 7.50-12.50NoSt. Francis Hospital SpecialistComment on above:Performed By: #### VITD, MG, PHOS, FERR, CBCAD, FE Prof, CMP #### [facility] [address] [place], [place] [id number] (Bld) [#/Vol]302 10*3/bBGywdvy213-171Bscsyrgf [facility] SpecialistComment on above:Performed By: #### VITD, MG, PHOS, FERR, CBCAD, FE Prof, CMP #### [facility] [address] [place], [place] [id number] (Bld) [#/Vol]5.23 10*6/uLNormal4.20-5.80NoSt. Francis Hospital SpecialistComment on above:Performed By: #### VITD, MG, PHOS, FERR, CBCAD, FE Prof, CMP #### [facility] [address] [place], [place] [id number]-KU38.8 qFDoaqaj91.0-50.0NoSt. Francis Hospital Specialist Comment on above:Performed By: #### VITD, MG, PHOS, FERR, CBCAD, FE Prof, CMP #### [facility] [address] [place], [place] [id number] (Bld) [#/Vol]7.8 10*3/uLNormal3.8-11.0NoSt. Francis Hospital SpecialistComment on above:Performed By: #### VITD, MG, PHOS, FERR, CBCAD, FE Prof, CMP #### [facility] [address] [place], [place] [id number] Metabolic Panelon 11-79-6031Mdmjvkc [Mass/Vol] 3.7 g/dLNormal3.6-5.1NorthSelect [facility] SpecialistComment on above:Performed By: #### VITD, MG, PHOS, FERR, CBCAD, FE Prof, CMP #### [facility] [address] [place], [place] [id number]/Globulin [Mass ratio]1.2 {ratio}Normal1.0-2.5NoSt. Francis Hospital SpecialistComment on above:Performed By: #### VITD, MG, PHOS, FERR, CBCAD, FE Prof, CMP #### [facility] [address] [place], [place] [id number] [Catalytic activity/Vol]127 U/ZNmeudi49-634Mcjevemp [facility] SpecialistComment on above:Performed By: #### VITD, MG, PHOS, FERR, CBCAD, FE Prof, CMP #### [facility] [address] [place], [place] [id number] [Catalytic activity/Vol]21 U/LNormal9-46NoSt. Francis Hospital SpecialistComment on above:Result Comment: 09/23/2021 Female reference range changed.Performed By: #### VITD, MG, PHOS, FERR, CBCAD, FE Prof, CMP #### [facility] [address] [place], [place] [id number] gap [Moles/Vol]20 mmol/JXjmhhp02-00Yzopnfgy [facility] SpecialistComment on above:Result Comment: Effective 10/29/2019 reference range changed.Performed By: #### VITD, MG, PHOS, FERR, CBCAD, FE Prof, CMP #### [facility] [address] [place], [place] [id number] [Catalytic activity/Vol]25 U/UMtflej86-01Ijevrzms [facility] SpecialistComment on above:Performed By: #### VITD, MG, PHOS, FERR, CBCAD, FE Prof, CMP #### [facility] [address] [place], [place] [id number] [Mass/Vol]1.05 mg/dLNormal0.30-1.20NoSt. Francis Hospital SpecialistComment on above:Performed By: #### VITD, MG, PHOS, FERR, CBCAD, FE Prof, CMP #### [facility] [address] [place], [place] [id number]/CREA11 RatioNormal6-22NoSt. Francis Hospital Specialist Comment on above:Performed By: #### VITD, MG, PHOS, FERR, CBCAD, FE Prof, CMP #### [facility] [address] [place], [place] [id number] [Mass/Vol]9.7 mg/dLNormal8.6-10.2NorthSelect [facility] SpecialistComment on above:Performed By: #### VITD, MG, PHOS, FERR, CBCAD, FE Prof, CMP #### [facility] [address] [place], [place] [id number] [Moles/Vol]99 mmol/CRzdxty83-181Ohyybavq [facility] SpecialistComment on above:Performed By: #### VITD, MG, PHOS, FERR, CBCAD, FE Prof, CMP #### [facility] [address] [place], [place] [id number] [Moles/Vol]24 mmol/XOzigym45-74Movweqyd [facility] SpecialistComment on above:Performed By: #### VITD, MG, PHOS, FERR, CBCAD, FE Prof, CMP #### [facility] [address] [place], [place] [id number] [Mass/Vol]0.9 mg/dLNormal0.7-1.4NortOhio State East Hospital SpecialistComment on above:Performed By: #### VITD, MG, PHOS, FERR, CBCAD, FE Prof, CMP #### [facility] [address] [place], [place] [id number] mL/min/1.68f2Nhufrj>60NortOhio State East Hospital SpecialistComment on above:Performed By: #### VITD, MG, PHOS, FERR, CBCAD, FE Prof, CMP #### [facility] [address] [place], [place] [id number] mL/min/1.75z4Tlztuo>60NortOhio State East Hospital SpecialistComment on above:Performed By: #### VITD, MG, PHOS, FERR, CBCAD, FE Prof, CMP #### [facility] [address] [place], [place] [id number] (S) [Mass/Vol]3.0 g/dLNormal1.9-3.7NoSt. Francis Hospital SpecialistComment on above:Performed By: #### VITD, MG, PHOS, FERR, CBCAD, FE Prof, CMP #### [facility] [address] [place], [place] [id number] [Mass/Vol]136 mg/sLJbwd79-19Cpfhgyho [place] [facility] SpecialistComment on above:Result Comment: For FASTING Glucose --- ADA reference ranges: Normal 65-99 mg/dl Prediabetes 100-125 Diabetes >/= 126Performed By: #### VITD, MG, PHOS, FERR, CBCAD, FE Prof, CMP #### [facility] [address] [place], [place] [id number] [Moles/Vol]3.3 mmol/LLow3.5-5.5NortOhio State East Hospital SpecialistComment on above:Performed By: #### VITD, MG, PHOS, FERR, CBCAD, FE Prof, CMP #### [facility] [address] [place], [place] [id number] [Mass/Vol]6.7 g/dLNormal6.1-8.1[facility] SpecialistComment on above:Performed By: #### VITD, MG, PHOS, FERR, CBCAD, FE Prof, CMP #### [facility] [address] [place], [place] [id number] [Moles/Vol]140 mmol/YDvmsto763-219Educxbfi [facility] SpecialistComment on above:Performed By: #### VITD, MG, PHOS, FERR, CBCAD, FE Prof, CMP #### [facility] [address] [place], [place] [id number] nitrogen [Mass/Vol]10 mg/dLNormal7-25NortOhio State East Hospital SpecialistComment on above:Performed By: #### VITD, MG, PHOS, FERR, CBCAD, FE Prof, CMP #### [facility] [address] [place], [place] [id number] 57-66-6767FMWG540.3 ng/fFIhbyld32.0-400.0NortOhio State East Hospital SpecialistComment on above:Performed By: #### VITD, MG, PHOS, FERR, CBCAD, FE Prof, CMP #### [facility] [address] [place], [place] [id number] Profileon 10-08-2021%FESAT13 %Idb67-03FvwobmpzOhio State East Hospital SpecialistComment on above:Performed By: #### VITD, MG, PHOS, FERR, CBCAD, FE Prof, CMP #### [facility] [address] [place], [place] [id number] ug/xETpw57-608Gymhncop [facility] SpecialistComment on above:Result Comment: Reference range change 09/09/2017. Prior reference range F 37-145 ug/dL, M 59-158 ug/dL.Performed By: #### VITD, MG, PHOS, FERR, CBCAD, FE Prof, CMP #### [facility] [address] [place], [place] [id number] ug/vLTxovrk133-240Naradjyk [facility] Comment on above:Performed By: #### VITD, MG, PHOS, FERR, CBCAD, FE Prof, CMP #### [facility] [address] [place], [place] [id number] ug/xQEoupay371-689Zyxnkrht [facility] Comment on above:Performed By: #### VITD, MG, PHOS, FERR, CBCAD, FE Prof, CMP #### [facility] [address] [place], [place] [id number] 21-77-6296Oodicwfwb [Mass/Vol]1.9 mg/dLNormal 1.5-2.3NoSt. Francis Hospital SpecialistComment on above:Performed By: #### VITD, MG, PHOS, FERR, CBCAD, FE Prof, CMP #### [facility] [address] [place], [place] [id number] 04-90-4181Fblmbgoqn [Mass/Vol]2.4 mg/dLNormal 2.2-4.4NoSt. Francis Hospital SpecialistComment on above:Performed By: #### VITD, MG, PHOS, FERR, CBCAD, FE Prof, CMP #### [facility] [address] [place], [place] [id number] - VITAMIN B1 PLASMAon 57-90-5791LZMUWLB B1 (THIAMINE), SERUM/PLASMA, LC/MS/MS<5Dvf1-76DcpygenpSt. Francis Hospital SpecialistComment on above: Order Comment: [facility] performed at: [facility], [employer], [id number], [place], [place], , [employer] Hanger: Alexis Abbott M.D.,PhDQuest Collection Date/Time: [id number] Results Received Date/Time: [id number] Reported Date/Time: [id number] Comment: Vitamin supplementation within 24 hours prior to blood draw may affect the accuracy of the results. This test was developed and its analytical performance characteristics have been determined by [employer] [place], [place]. It has not been cleared or approved by the U.S. Food and Drug Administration. This assay has been validated pursuant to the CLIA regulations and is used for clinical purposes.Performed By: #### RAMONA AMBROSE LIPSpencer #### [facility] [address] [place], [place] [id number] B12/Folateon 50-90-4459Cwdotapvk (Vitamin B12) [Mass/Vol]523 pg/uXLmnguh685-760Dvukqkvg [facility] [place] SpecialistComment on above:Performed By: #### TSHRAMONA, LIPD #### [facility] [address] [place], [place] [id number] ng/mLNormal>4.7Northern [facility] HospiceComment on above:Result Comment: Reference range change 09/09/2017. Prior reference range F 4.8-37.3 ng/mL, M 4.5-32.2 ng/mL.Performed By: #### RAMONA AMBROSE, LIPD #### [facility] [address] [place], [place] [id number] D 25-OHon 48-83-9419GBO D 25 OH25 ng/mlLow>29[facility] HospiceComment on above:Result Comment: Vitamin D Status Deficiency <20 ng/mL Insufficiency 20-29 ng/mL Optimal 30-100 ng/mL Possible Toxicity >=150 ng/mLPerformed By: #### RAMONA AMBROSE, LIPD #### [facility] [address] [place], [place] [id number] ABD/PELVIS WO CONon 26-63-5313KX ABD/PELVIS WO CON EXAMINATION: CT ABD/PELVIS WO [...] Electronically authenticated by: Ema WALSH Date: 2021-08-31 23:19NoKettering Health SpringfieldAMYLASEon 46-92-7807Bpgpgny [Catalytic activity/Vol]34 U/L Xatysc50-648Rac [facility], [facility] ShawComment on above:Performed By: #### LIPA, ARMANDO, CMP #### [facility] [address] [address] [address] Chris Keys AUTO DIFFon 42-38-2418XGNA #0.1 103/ulNormal0.0-0.1The [facility], [facility] ShawComment on above:Performed By: #### CBC #### [facility] Laboratory [address] [place] [address] Dr. Chris RealBasophils/100 WBC (Bld)0.6 %Normal0.2-2.0The [facility] Comment on above:Performed By: #### CBC #### [facility] [address] [place] [address] Dr. Chris Landa #0.2 103/ulNormal0.0-0.7The [facility], [facility] ShawComment on above: Performed By: #### CBC #### [facility] [address] [place] [address] Dr. Chris Saldivarosinophils/100 WBC (Bld)2.3 %Normal0.9-7.0The [facility] Comment on above:Performed By: #### CBC #### [facility] [address] [place] [address] Dr. Chris Saldivarrythrocyte distribution width (RBC) [Ratio]14.6 %Ecueuj89.0-15.0 The [facility], [facility] ShawComment on above:Performed By: #### CBC #### [facility] [address] [place] [address] Dr. Chris RealHematocrit (Bld) [Volume fraction]38.6 %Critically low42.0-54.0 The [facility], [facility] ShawComment on above:Performed By: #### CBC #### [facility] [address] [place] [address] Dr. Chris RealHemoglobin (Bld) [Mass/Vol]12.6 g/dLCritically low14.0-18.0The [facility] ShawComment on above:Performed By: #### CBC #### [facility] [address] [place] [address] Dr. Chris Cheek #0.02 10e3/ulNormal0.00-0.03The [facility] on above:Performed By: #### CBC #### [facility] [address] [address] [address] Chris Cheek %0.2 %Normal0.0-0.5The [facility] on above: Performed By: #### CBC #### [facility] [address] [place] [address] Dr. Chris Zhang #1.9 103/ulNormal1.2-3.8The [facility] on above:Performed By: #### CBC #### [facility] [address] [place] [address] Dr. Chris Riverahocytes/100 WBC (Bld)23.8 %Iyftky33.5-60.0The [facility] on above:Performed By: #### CBC #### [facility] [address] [place] [address] Dr. Chris Baca DIFF REQNONormalThe [facility] ShawComment on above: Performed By: #### CBC #### [facility] [address] [place] [address] Dr. Chris Araya (RBC) [Entitic mass]29.1 ppZavhya21.9-34.0The [facility] on above:Performed By: #### CBC #### [facility] [address] [place] [address] Dr. Chris Araya (RBC) [Mass/Vol]32.6 g/jKBucmrg73.9-35.2The [facility] on above:Performed By: #### CBC #### [facility] [address] [place] [address] Dr. Chris Araya (RBC) [Entitic vol]89.1 gUBgnktb03.0-94.0The [facility] on above:Performed By: #### CBC #### [facility] [address] [place] [address] Dr. Chris Hidalgo #0.8 103/ulNormal0.3-0.8The Alexandra HospitalComment on above:Performed By: #### CBC #### [facility] [address] [address] [address] Chris Scottocytes/100 WBC (Bld)10.3 %Normal1.7-12.0The [place] Hospital on above:Performed By: #### CBC #### [facility] [address] [place] [address] Dr. Chris BishopUT #5.1 103/ulNormal1.4-6.5The [facility] ShawComment on above:Performed By: #### CBC #### [facility] [address] [place] [address] Dr. Chris Bishoputrophils/100 WBC (Bld)62.8 %Ufepei06.0-75.0The [facility] ShawComment on above:Performed By: #### CBC #### [facility] [address] [place] [address] Dr. Chris RealPlatelet mean volume (Bld) [Entitic vol]10.4 fLNormal9.5-13.5The [facility] ShawComment on above:Performed By: #### CBC #### [facility] [address] [place] [address] Dr. Chris RealPLT325 103/jbGkhgxm543-015Tzk [facility] ShawComment on above: Performed By: #### CBC #### [facility] [address] [place] [address] Dr. Chris RealRBC4.33 106/ulCritically low4.70-6.10The [facility] ShawComment on above:Performed By: #### CBC #### [facility] [address] [place] [address] Dr. Chris RealWBC8.1 103/ulNormal4.0-11.0The [facility] ShawComment on above: Performed By: #### CBC #### [facility] [address] [place] [address] Dr. Chris Hudsonvid-19 PCR (CVDTBH)on 85-60-2202ZSXR-CoV-2 (COVID-19) RNA GAIL+probe Ql (Unsp spec)Not detectedNormalNOT DETECTEDThe [facility] Comment on above:Result Comment: When diagnostic testing is negative, the possibility of a false negative should be considered in the context of a patient's recent exposures and the presence of clinical signs and symptoms consistent with SARS-CoV-2. This test is not yet approved or cleared by the [place] Food and Drug Administration (FDA). This test was developed by [employer], [place], [place]. The performance characteristics of this test were validated by The [facility]. The results are not intended to be used as the sole means for clinical diagnosis or patient management decisions. The [facility] is authorized under Clinical Laboratory Improvement Amendments (CLIA) to perform high- complexity testing.Performed By: #### CVDTBH #### [facility] [address] [place] [address] Dr. Chris RealLIPASEon 73-02-1388Tpsyas [Catalytic activity/Vol]109.0 U/LNormal 23.0-300.0The [facility] ShawComment on above:Performed By: #### LIPA ARMANDO, CMP #### [facility] [address] [place] [address] Dr. Chris RealPROChantel 14(COMP METB)on 55-50-2487Emtuces [Mass/Vol]2.7 g/dL Critically low3.5-5.0The [facility] ShawComment on above:Performed By: #### LIPRicky ARMANDO, CMP #### [facility] [address] [place] [address] Dr. Chris RealAlbumin/Globulin [Mass ratio]0.6 {ratio}NormalThe [facility] ShawComment on above:Performed By: #### LIPA ARMANDO, CMP #### [facility] [address] [place] [address] Dr. Chris Benedict [Catalytic activity/Vol]110 U/GGblwqw14-980Jyf [facility] Hospitalment on above:Performed By: #### LIPA, ARMANDO, CMP #### [facility] [address] [place] [address] Dr. Yilan ChangALT [Catalytic activity/Vol]19 U/LCritically hat67-88Ibr [facility] ShawComment on above:Performed By: #### ARMANDO DELEON, CMP #### [facility] [address] [place] [address] Dr. Chris RealAnion gap [Moles/Vol]12.8 mmol/LNormalSelect [facility] Comment on above:Performed By: #### ARMANDO DELEON, CMP #### [facility] [address] [place] [address] Dr. Chris RealAST [Catalytic activity/Vol]23 U/LSgfrxv07-46Oxa [facility] ShawComment on above:Performed By: #### ARMANDO DELENO, CMP #### [facility] [address] [place] [address] Dr. Chris RealBilirubin [Mass/Vol]1.0 mg/dLNormal0.2-1.3TSelect [facility] Comment on above:Performed By: #### ARMANDO DELEON, CMP #### [facility] [address] [place] [address] Dr. Chris RealCalcium [Mass/Vol]8.6 mg/dLNormal8.4-10.2[facility] Comment on above:Performed By: #### ARMANDO DELEON, CMP #### [facility] [address] [place] [address] Dr. Chris RealChloride [Moles/Vol]98 mmol/QJvszrb70-873Gqz [facility] Comment on above:Performed By: #### ADRIENNE ARMANDO, CMP #### [facility] [address] [place] [address] Dr. Chris RealCO2 [Moles/Vol]29.1 mmol/EFslwyo11.0-30.0[facility] Comment on above:Performed By: #### ARMANDO DELENO, CMP #### [facility] [address] [place] [address] Dr. Chris RealCreatinine [Mass/Vol]1.16 mg/dLNormal0.66-1.25The [facility] ShawComment on above:Performed By: #### LIPA ARMANDO, CMP #### [facility] [address] [place] [address] Dr. Chris SaldivarGFR-AF VATICAN CITIZEN>60Normal>=60The [facility] ShawComment on above:Performed By: #### ARMANDO DELEON, CMP #### [facility] [address] [address] [address] Chris SaldivarGFR-NON AF [place] CITIZEN>60Normal>=60The [facility] ShawComment on above:Performed By: #### ARMANDO DELEON, CMP #### [facility] [address] [place] [address] Dr. Chris RealGlobulin (S) [Mass/Vol]4.4 g/dLNormalThe [facility] ShawComment on above:Performed By: #### ARMANDO DELEON, CMP #### [facility] [address] [place] [address] Dr. Chris RealGlucose [Mass/Vol]106 mg/gYHzhnzo62-034FzaSelect [facility] Comment on above:Performed By: #### ARMANDO DELEON, CMP #### [facility] [address] [place] [address] Dr. Chris RealPotassium [Moles/Vol]2.9 mmol/LCritically low3.4-5.0The [facility] ShawComment on above:Result Comment: TEST REPEATED; CRITICAL VALUE VERIFIED Performed By: #### ARMANDO DELEON, CMP #### [facility] [address] [place] [address] Dr. Chris RealProtein [Mass/Vol]7.1 g/dLNormal6.1-8.2The [facility] Comment on above:Performed By: #### ARMANDO DELEON, CMP #### [facility] [address] [place] [address] Dr. Chris RealSodium [Moles/Vol]137 mmol/URtxtwx059-986NxtSelect [facility] Comment on above:Performed By: #### ARMANDO DELEON, CMP #### [facility] [address] [place] [address] Dr. Chris RealUrea nitrogen [Mass/Vol]12.0 mg/dLNormal9.0-20.0[facility] ShawComment on above:Performed By: #### ARMANDO DELEON, CMP #### [facility] [address] [place], [place] [address] Dr. Chris Wang nitrogen/Creatinine [Mass ratio]10.3 mg/mgNoKettering Health SpringfieldComment on above:Performed By: #### ARMANDO DELEON CMP #### [facility] [address] [place], [place] [address] Dr. Chris Locke RUSSEL DOP LEG LTon 63-04-4875VF RUSSEL DOP LEG LTEXAM: US RUSSEL DOP LEG LT HISTORY: Pain COMPARISON: 07/22/2020 TECHNIQUE: Ultrasonography of the left lower extremity is performed from the groin to the calf. FINDINGS: The deep venous structures demonstrate normal compressibility. There is no intraluminal thrombus. Normal color Doppler images with spectral waveforms. Unremarkable superficial imaged soft tissues. IMPRESSION: No evidence for deep venous thrombosis. Electronically authenticated by: KOFFI DAO Date: 2021-08-31 21:29NoKettering Health SpringfieldXR CHEST 1 Von 81-55-9781LE CHEST 1 VEXAM: XR CHEST 1 V HISTORY: SHORTNESS OF BREATH COMPARISON: Chest x-ray dated 03/22/2015. FINDINGS: Bilateral interstitial marking prominence. Cardiomegaly. No definite pneumothorax. IMPRESSION: Bilateral interstitial marking prominence and cardiomegaly concerning for pulmonary edema. Electronically authenticated by: LALO HICKMAN Date: 2021-08-31 21:52Normal [facility] ShawAmbulatory Clinical Summaryon 67-53-6453Kgmrhoaqhw Clinical Summary{09-21-9p-40-0v-00-40-3x-5k-0o-ft-az-57-2a-a4-ea}CD:[id number] Carmel Health SystemPatient Educationon 43-49-0031Fswuqeh EducationBenign Prostatic Hyperplasia You have an enlarged prostate. This is common in elderly males. It is called BPH. This stands for benign prostate hyperplasia. The prostate gland is located in base of the bladder. When it grows, theprostate blocks the urethra. This is the tube [...] Document Reviewed: 06/14/2008 ExitCare? Patient Information ?2013 [employer].[facility] CenterUrology Office/Clinic Noteon 53-56-8597Zuaohgu Office/Clinic NoteChief Complaint 2 month f/u Patient is a [...] at this time. Patient was also dilated atthis time. Patient Denies any recent pain or discomfort. Patient states that since procedure he hasbeen urinating very well. Most recent PSA was 1.00 in 08/2020.. Patient is unsure of medicaiton list , but thinks he is still taking tamsulosin [...] denies hematuria, denies discharge, denies urinary frequency, deniesurinary hesitancy, denies nocturia, denies incontinence, denies genital [...] He has not passed a stone since hislast visit. He states he is voiding with [...] were found. Pt. denies any stone pain/issues andis doing well overall at this time. All [...] Urnls Dip Stick Auto w/o Microscopy POC 59890 I have reviewed the previous health record information and history for this pt. from Dr. Caballero. Follow-up With When Contact Information Stuart Tavarez MD, Rene Wallace, [facility] [address] [id number]- Additional Instructions: prn Patient Education Benign Prostatic [...] Colonoscopy, Knee replacement, Pa (more content not included)...[facility] Comment on above:Result Comment: Electronically Signed By: Stuart Tavarez MD, Rene Wallace\.br\Date and Time Signed: 02/24/2113:11 EDT\.br\Electronically Co-Signed By: Radha Lan MA\.br\Date and Time Co-Signed: 02/24/21 11:29 EDTProvider Letteron 25-34-1248Lzijknkr Letter February 03, 2021 [address] [place] [id number] INDIO COLLADO 1955 Dear Indio , You [...] appreciate your understanding. Sincerely, [facility] [address] [facility], [place] [address] CgrfwgXyhamjMount Carmel Health SystemPhysician Referralon 80-62-3737Lmknxthdw [id number]#1.00CD:127 [facility] CenterECG 12-Leadon 12-78-3192MKP 12-Lead [id number]#1.00CD:127[facility] CenterLab Reportson 51-62-8921Gnw Reports [id number]#1.00CD:[address] [place] [address] [id number]#1.00CD:[address] [place], [place] [address]Lab Reports [id number]#1.00CD:[address] [place] [address] [id number]#1.00CD:[address] [place], [place] [address]RAD - MISCon 89-95-2190RBJ - MISC [id number]#1.00CD:[address] [place], [place] [address]Operative Reporton 64-62-0941Tybagbwie Report [id number]#1.00CD:[address] [place], [place] [address]Ambulatory Clinical Summaryon 99-16-3688Mxhxvxxhsk Clinical Summary {l1-l5-67-hz-4k-24-51-37-l1-g7-4c-c8-94-74-06-e2}CD:[id number] Hospitals Parma Medical CenterPatient Educationon 64-23-2132Mmsyqor EducationFamily Medicine Kidney Stones Kidney stones (ureteral lithiasis ) are solid masses that form inside your kidneys. The intense pain is caused by the stone moving through the kidney, ureter, bladder, and urethra (urinary tract ). When the stone moves, the ureter starts to spasm around the stone. The stone is usually passed in theurine. HOME CARE ? Drink enough fluids to keep your pee (urine ) clear or pale yellow. This helps to get the stone out. ? Strain all pee through the provided strainer. Do not pee without peeing through the strainer, noteven once. If you pee the stone out, [...] Document Reviewed: 08/07/2010 ExitCare? Patient Information ?2013 [employer].[facility] CenterPhysician Orderon 60-92-4230Datzmugea Order [id number]#1.00CD:127[facility] CenterPre-Authorization for Medical Treatmenton 91-06-1574Tif-Authorization for Medical [id number]#1.00CD:127NoSumma Health Wadsworth - Rittman Medical CenterUrology Office/Clinic Noteon 23-06-7957Ousmksg Office/Clinic NoteChief Complaint 11 month fu w/ CT This patient is a 65-year-old gentleman with a history of left-sided flank pain and CT scan evidence of a 3 mm distal left ureteral calculus. His CT scan was dated 10/17/2020. Patient states he has not passed a stone at this point and continues to have pain. He is here today for urologic evaluationand management. HPI Staff Patient 11 month fu w/ CT. CT done at [facility] on 10/17/2020 Pt states that he [...] Present Illness Reviewed urine and CT from [facility]. There have been no associated fever, [...] denies hematuria, denies discharge, denies urinary frequency, deniesurinary hesitancy, moderate nocturia, moderate incontinence, denies genital sores, denies decreasedlibido, and denies erectile dysfunction. Physical Exam Vitals & Measurements HR: 69(Peripheral) RR: 16 BP: 142/75 HT: 175.0 cm HT: 175 cm WT: 180.0 kg WT: 180 kg BMI: 58.78 General Appearance: alert, no distress, well nourished, well developed male. This patient is obese.He is not short of breath and does [...] Urnls Dip Stick Auto w/o Microscopy POC 479[address] Urology Procedure Order 3. Nocturia (R35.1: Nocturia) 2x/night. Ordered: Urology Procedure Order 4. Urge incontinence (N39.41: Urge incontinence) Moderate - severe. Ordered: Urology Procedure Order 5. Abdominal pain (R10.9: Unspecified abdominal pain) LLQ. Ordered: Urology Procedure Order I have reviewed the previous health record information and history for this pt. from Dr. Caballero. Follow-up With When Contact Information Rene Caballero Jr., MD [address] [place] [address] Additional Instructions: Patient Education Kidney Stones, Wcne-id-Erxd IRadha , personally scribed for Dr. Caballero on 11/13/2020 09:19:01. . Documentation recorded by the naheedibRadha dang, accurately reflects the services(s) I performed and decisions m (more content not included)...Normal [facility] HospitalComment on above:Result Comment: Electronically Signed By: Rene Caballero Jr., MD\.br\Date and Time Signed: 11/13/2108:42 EST\.br\Electronically Co-Signed By: Radha Lan MA\.br\Date and Time Co- Signed: 11/13/20 09:19 ESTRAD - CT Reporton [id number] - CT Report [id number]#1.00CD:[address] [place] [address] Vital Signs Date TimeVital SignValuePerforming PedxygzhcTnaclysv72-75-0972 14:43-0400Body wklnosabkdx60.8 [degF]Luis Velazquez II Work Phone: 1(360)[address]09-22-2025 14:43-0400 Diastolic blood irglqiqu09 mm[Hg]Luis Velazquez II Work Phone: 1(105)[address]09-22-2025 14:43-0400 Heart rate54 /minDaniel Velazquez II Work Phone: 1(866)[address]09-22-2025 14:43-0400 Respiratory rate18 /minDaniel Velazquez II Work Phone: 1(058)018-[address] [place], [place] 0095709-22-2025 14:43-0400 Systolic blood mm[Hg]Luis Velazquez II Work Phone: 1(218)533-[address] [place], [place] 0095709-15-2025 14:34-0400 Body kzhzso090.26 cmDaniel Velazquez II Work Phone: 1(432)344-[address] [place], [place] 0095709-15-2025 14:34-0400 Body mass index (BMI) [Ratio]27 kg/t0Iqjfcn Velazquez II Work Phone: 1(370)723-[address] [place], [place] 0095709-15-2025 14:34-0400 Body paekwa07 kgDaniel Velazquez II Work Phone: 1(055)[address]08-18-2025 12:55-0400 Body vvucma188.3 cmJuhi Sullivan PA Work Phone: [facility] CenterYaemomaezj74-52-9159 12:55-0400Body mass index (BMI) [Ratio]27.91 kg/m0Icyby Hemmer PA Work Phone: [facility] CenterKtbomuafrj83-63-0496 12:55-0400Body temperature 97.9 [degF]Juhi Hemmer PA Work Phone: [facility] CenterPnhymqnbwx91-22-8621 12:55-0400Body vzriav47.73 kgJuhi Hemmer PA Work Phone: [facility] CenterNyvsdpzmqq02-31-0826 12:55-0400Diastolic blood jyktleen76 mm[Hg]Juhi Hemmer PA Work Phone: [facility] CenterKidayiipjc94-78-5002 12:55-0400Heart rate58 /min Juhi Hemmer PA Work Phone: [facility] CenterLqsdtxsqut19-48-4444 12:55-1386JmQ3% (BldA) [Mass fraction]96 %Juhi Hemmer PA Work Phone: [facility] CenterNnwoxqxcrf24-51-7345 12:55-0400Systolic blood plgtytuv334 mm[Hg]Juhi Hemmer PA Work Phone: [facility] CenterRfqxwghlnz48-39-7905 10:18-0400Body .3 cmAmohamud Willis MD Work Phone: [facility]08-08-2025 10:18-0400Body mass index (BMI) [Ratio]26.88 kg/m2Denise Willis MD Work Phone: [facility]08-08-2025 10:18-0400Body poezmh17.56 kgDenise Willis MD Work Phone: [facility]08-07-2025 14:39-0400Body firnbn988.3 cmJuhi Hemmer PA Work Phone: [facility] CenterVrfmdnipjz14-48-9369 14:39-0400Body mass index (BMI) [Ratio]27.38 kg/l7Swvau Hemmer PA Work Phone: [facility] CenterGgruiemtzr12-87-7072 14:39-0400Body temperature 97.59 [degF]Juhi Hemmer PA Work Phone: [place] [address]Rybbpfhtjd55-00-4085 14:39-0400Body ospqia97.1 kg Juhi Hemmer PA Work Phone: [facility] CenterEeybnsdtyq46-04-3227 14:39-0400Diastolic blood duurtnjx44 mm[Hg]Juhi Hemmer PA Work Phone: [facility] CenterHarmhhlalm05-36-7220 14:39-0400Heart rate52 /min Juhi Hemmer PA Work Phone: [facility] CenterZwgoeyhdxm86-80-5286 14:39-0400Respiratory rate16 /minKaren Hemmer PA Work Phone: [facility] CenterCxvycaowue85-86-3266 14:39-3365UkK3% (BldA) [Mass fraction]97 %Juhi Hemmer PA Work Phone: [facility] CenterZzykjmavmr47-54-4572 14:39-0400Systolic blood yhzfawda073 mm[Hg]Juhi Hemmer PA Work Phone: [facility] CenterWadwjqroon69-61-0137 13:33-0400Body iypbjb509.3 cmKaren Hemmer PA Work Phone: [facility] CenterZtoyqahtgp42-65-7364 13:33-0400Body mass index (BMI) [Ratio]26.99 kg/a7Bifbq Hemmer PA Work Phone: [facility] CenterFbptdehint12-97-9378 13:33-0400Body .92 kgKaren Hemmer PA Work Phone: [facility] CenterOcrxlwlgyp23-73-8289 13:33-0400Diastolic blood geppwukx01 mm[Hg]Juhi Hemmer PA Work Phone: [facility] CenterXxcojlrrkh33-00-8562 13:33-0400Heart rate58 /min Juhi Hemmer PA Work Phone: [facility] CenterNxenhgjpbb47-26-9209 13:33-0400Respiratory rate16 /minKaren Hemmer PA Work Phone: [facility] CenterYnwysylruh25-66-4997 13:33-2017HaT9% (BldA) [Mass fraction]97 %Juhi Hemmer PA Work Phone: [facility] CenterHnkiacuodu90-79-5659 13:33-0400Systolic blood mm[Hg]Juhi HANSEN Work Phone: NOSaint John's HospitalBasbxdjrcw33-14-5568 15:19-0400Diastolic blood bsaqjgqi48 mm[Hg][address]06-11-2025 15:19-0400Systolic blood lfkfitrc677 mm[Hg][address]06-11-2025 14:50-0400Body .[address]06-11-2025 14:50-0400Body mass index (BMI) [Ratio]27.51 kg/f5Qbnie[address]06-11-2025 14:50-0400Body zjoxfwrbvsi44.39 [degF][address]06-11-2025 14:50-0400Body zavleo35.[address]06-11-2025 14:50-0400Heart rate46 /min[address]06-11-2025 14:50-0400Respiratory rate18 /min [address]06-11-2025 14:50-2509VkE1% (BldA) [Mass fraction] 100 %[address]06-11-2025 11:33-0400Body ypzlfh087.3 cm Luis Velazquez MD Work Phone: noSaint John's HospitalZcxouyxazp06-48-5627 11:33-0400Body mass index (BMI) [Ratio]27.32 kg/e6QjfzbyLuis Velazquez MD Work Phone: NOSaint John's HospitalWdbhmdygiw48-52-0940 11:33-0400Body komirh31.92 kgLuis Velazquez MD Work Phone: NOSaint John's HospitalYzpruoqeml83-57-9881 11:33-0400Diastolic blood mhtsaqmq35 mm[Hg]Luis Velazquez MD Work Phone: NOSaint John's HospitalAcyglnqhhu39-89-9977 11:33-0400Heart rate59 /min Luis Velazquez MD Work Phone: [facility] CenterPcnrlakbux50-22-2613 11:33-1603QhL8% (BldA) [Mass fraction]98 %Luis Velazquez MD Work Phone: 1(906)[facility]-[address] [place], [place] [address]Hbdnkpxuls36-98-7662 11:33-0400Systolic blood rnmnciix787 mm[Hg]Luis Velazquez MD Work Phone: 1(940)[facility] [place], [place] [address]Qloxesbcae67-10-4341 11:24-0400Body .3 cmKaren Hemmer PA Work Phone: 1(694)[facility] [place], [place] [address]Guiswwjgms76-10-5048 11:24-0400Body mass index (BMI) [Ratio]27.44 kg/j1Rdnvj Hemmer PA Work Phone: 1(927)[address] [place], [place] [address]05-09-2025 11:24-0400Body temperature 97.81 [degF]Juhi Hemmer PA Work Phone: 1(899)[facility] [place], [place] [address]Mxusyfdovk03-35-3040 11:24-0400Body .28 kgKaren Hemmer PA Work Phone: 1(255)[facility] [place], [place] [address]Ewxnujwmuc37-14-2724 11:24-0400Diastolic blood ehhjmbgd05 mm[Hg]Juhi Hemmer PA Work Phone: 1(417)[facility] [place], [place] [address]Zhgyrsbrcl86-68-3692 11:24-0400Heart rate48 /min Juhi Hemmer PA Work Phone: 1(034)[facility]-[address] [place], [place] [address]Cxudaznpox86-41-2283 11:24-0400Respiratory rate16 /minKaren Hemmer PA Work Phone: 1(529)[address] [place], [place] 9863905-09-2025 11:24-2752JeD4% (BldA) [Mass fraction]97 %Juhi Hemmer PA Work Phone: 1(184)[facility]-[address] [place], [place] [address]Ddthvbgnmz77-63-0680 11:24-0400Systolic blood uawfgsob117 mm[Hg]Juhi Hemmer PA Work Phone: 1(055)[facility]-[address] [place], [place] [address]Ibtuzqgfjy57-86-2235 11:27-0400Body tquuvf740.3 cmKaren Hemmer PA Work Phone: 1(292)[facility] [place], [place] [address]Dsjtitviqz31-03-9178 11:27-0400Body mass index (BMI) [Ratio]27.47 kg/w3Xcmfx Hemmer PA Work Phone: [facility] CenterTbrllfvnhr51-01-5013 11:27-0400Body vrtcew25.37 kgTamiren Hemmer PA Work Phone: [facility] CenterFycxkefpcc54-12-1662 11:27-0400Diastolic blood xzrsxiir73 mm[Hg]Juhi Hemmer PA Work Phone: [facility] CenterVemukckqyj02-29-3099 11:27-0400Heart rate50 /min Juhi Hemmer PA Work Phone: [facility] CenterGqtavywpbo15-05-2703 11:27-0400Respiratory rate16 /minTamiren Hemmer PA Work Phone: [facility] CenterUjwhdzxqdl19-62-6894 11:27-5957AoD3% (BldA) [Mass fraction]97 %Juhi Hemmer PA Work Phone: [facility] CenterRxbnkiepih08-35-7063 11:27-0400Systolic blood mm[Hg]Juhi Hemmer PA Work Phone: [facility] CenterWjtgyfcult01-52-1066 13:34-0400Body .3 cmLuis Velazquez MD Work Phone: [facility] CenterJgdocjaohh68-69-8113 13:34-0400Body mass index (BMI) [Ratio]27.91 kg/v1AkmzvnLuis Velazquez MD Work Phone: [facility] CenterNrvtjptvsz30-00-2438 13:34-0400Body kgpyvn39.73 kgLuis Velazquez MD Work Phone: [facility] CenterTeqdfqugeu90-00-6059 13:34-0400Diastolic blood agbheifi16 mm[Hg]Luis Velazquez MD Work Phone: [facility] CenterZivjuoqkgy75-53-8311 13:34-0400Heart rate58 /min Luis Velazquez MD Work Phone: [facility] HospitalEfggtyvvrm14-31-2693 13:34-9417GhT6% (BldA) [Mass fraction]95 %Luis Velazquez MD Work Phone: [facility] CenterJyfalkifyj54-21-5253 13:34-0400Systolic blood qhecivmp656 mm[Hg]Luis Velazquez MD Work Phone: [facility] CenterWpefquzkqk65-69-4884 14:00-0400Body rbcona598.3 cmAgaurangantonyshiv Theresa DPM Work Phone: [facility] CenterLcucyzevgs24-92-8357 14:00-0400Body mass index (BMI) [Ratio]27.76 kg/h5Hqabqlp Rus DPM Work Phone: [facility] CenterEpbezktmht83-66-0388 14:00-0400Body mcdkox88.28 kgAnthony Rus DPM Work Phone: [facility] CenterBmaewifnbs90-64-2620 10:15-0400Body mkyvek709.3 cmAmohamud Willis MD Work Phone: [facility]03-10-2025 10:15-0400Body mass index (BMI) [Ratio]27.32 kg/m2Anil Frantz RAMIREZ Work Phone: [facility]03-10-2025 10:15-0400Body kgvwey39.92 kgAnil Frantz RAMIREZ Work Phone: [facility]01-23-2025 08:46-0500Body zjjyih306.3 cmLuis Velazquez MD Work Phone: [facility] CenterVovwrmnvgu28-90-8388 08:46-0500Body mass index (BMI) [Ratio]27.91 kg/d2RcvexbLuis Velazquez MD Work Phone: [facility] CenterXiaznqfejz97-76-2465 08:46-0500Body mewsgj59.73 kgLuis Velazquez MD Work Phone: [facility] CenterTdogvfqdzb99-35-6521 08:46-0500Diastolic blood ufkvwjaq69 mm[Hg]Luis Velazquez MD Work Phone: [facility] CenterVililfmyti89-97-9586 08:46-0500Heart rate59 /min Luis Velazquez MD Work Phone: 1(901)543-[address] [place], [place] [address]Slleewoliv16-45-2136 08:46-0216YtG6% (BldA) [Mass fraction]98 %Luis Velazquez MD Work Phone: [facility] CenterJhcxoeiyec34-01-8854 08:46-0500Systolic blood mm[Hg]Luis Velazquez MD Work Phone: [facility] CenterSkmbszpjep56-29-0300 13:05-0500Diastolic blood mm[Hg]Norma Hurd MD Work Phone: 1(166)[facility]12-05-2024 13:05-0500Systolic blood ztzceujz542 mm[Hg]Norma Hurd MD Work Phone: 1(528)[facility]12-05-2024 13:03-0500Body .3 cmNorma Hurd MD Work Phone: 1(827)[facility]12-05-2024 13:03-0500Body mass index (BMI) [Ratio]26.88 kg/s2MalayikNorma Hurd MD Work Phone: 1(602)[facility]12-05-2024 13:03-0500Body quzohz49.56 kgNorma Hurd MD Work Phone: 1(781)[facility]12-05-2024 13:03-0500Heart rate 50 /minNorma Hurd MD Work Phone: 1(518)[facility]11-11-2024 09:46-0500Body kfetex718.3 cmAnthony Rusher DPM Work Phone: [facility] CenterCqtogfrydl53-64-1061 09:46-0500Body mass index (BMI) [Ratio]25.84 kg/s0Bzgawee Rusher DPM Work Phone: [facility] CenterNrvmouazmz38-22-4908 09:46-0500Body jciqcj32.38 kgAnthony Rusher DPM Work Phone: [facility] CenterQlajzeywrk04-92-6433 15:53-0400Body lqlzyg412.3 Delores HANSEN Work Phone: [facility] CenterUcvtntopyd84-09-0070 15:53-0400Body mass index (BMI) [Ratio]25.87 kg/k0Wttza Hemmer PA Work Phone: [facility]OS[facility] HospitalHghkyecguv77-63-4554 15:53-0400Body vcpzat60.47 kgJuhi Hemmer PA Work Phone: [facility]OS[facility] HospitalLpposjpybr52-89-7070 15:53-0400Diastolic blood mm[Hg]Juhi Hemmer PA Work Phone: [facility]OS[facility] HospitalStjtmxqavl82-20-2817 15:53-0400Heart rate66 /min Juhi Hemmer PA Work Phone: [facility] CenterMbcxogcjbc75-74-6757 15:53-0400Respiratory rate16 /minTamiren Hemmer PA Work Phone: [facility] CenterLylislraaq11-13-7393 15:53-7592KbX3% (BldA) [Mass fraction]97 %Juhi Hemmer PA Work Phone: [facility] CenterNkkyviqngp19-19-6283 15:53-0400Systolic blood ruvluawq796 mm[Hg]Juhi Hemmer PA Work Phone: [facility] CenterLnhqdwqtqe87-52-4538 15:11-0400Body xeutvg032.3 cmAlexandre Reinoso MOTORCYCLE DELIVERER Work Phone: [facility]OS[facility] HospitalVwwyzfhtah15-08-9258 15:11-0400Body mass index (BMI) [Ratio]25.7 kg/m2Alexandre Reinoso MOTORCYCLE DELIVERER Work Phone: [facility] CenterPwmjekgjod88-21-6507 15:11-0400Body .93 kgAlexandre Reinoso MOTORCYCLE DELIVERER Work Phone: [place] [address]Pxzqnkwpqe42-63-3047 15:11-0400Diastolic blood drrvlbis19 mm[Hg]Alexandre Reinoso MOTORCYCLE DELIVERER Work Phone: [facility]OSaint [facility] HospitalHlxacdqtiv92-08-3834 15:11-0400Heart rate59 /min Alexandre Reinoso MOTORCYCLE DELIVERER Work Phone: [place] [address]Itoombabmr05-48-1545 15:11-6987EpK0% (BldA) [Mass fraction]97 %Alexandre Reinoso MOTORCYCLE DELIVERER Work Phone: [facility] CenterKpnpoxayyn33-25-5229 15:11-0400Systolic blood fqfzyiot004 mm[Hg]Alexandre Reinoso MOTORCYCLE DELIVERER Work Phone: [facility] CenterQixfffefcp32-17-5456 09:55-0500Body mass index (BMI) [Ratio]29.51 kg/j9Ysynd Hemmer PA Work Phone: [facility] CenterKstqaujfpw10-76-5524 09:55-0500Body vwhqwinojmg49 [degF]Juhi Hemmer PA Work Phone: [facility] CenterNsgmjhioll30-15-3912 09:55-0500Body vbyupo10.63 kgTamiren Hemmer PA Work Phone: [facility] CenterDivrlirzpn28-22-5362 09:55-0500Diastolic blood mm[Hg]Juhi Hemkranthi PA Work Phone: [facility] CenterWrgojovfjr24-13-8275 09:55-0500Heart ewjh918 /min Juhi Hemkranthi PA Work Phone: [facility] CenterHiohmhxsdr97-82-1126 09:55-0500Respiratory rate16 /minTamiren Hemmer PA Work Phone: [facility] CenterJvbuecaxxc14-07-0880 09:55-9386NxC7% (BldA) [Mass fraction]98 %Juhi Hemmer PA Work Phone: [facility] CenterLepnhtvhvi39-72-9634 09:55-0500Systolic blood mm[Hg]Juhi Hemkranthi PA Work Phone: [facility] CenterRvxfnfiheh66-23-3609 09:49-0500Body oqduru502.3 cmHelen Gonzalez MD Work Phone: 1(245)[facility]01-16-2024 09:49-0500Body mass index (BMI) [Ratio]29.09 kg/m0EukijugczHelen Gonzalez MD Work Phone: 1(460)[facility]01-16-2024 09:49-0500Body gpsahz25.36 kgHelen Gonzalez MD Work Phone: 1(157)[facility]01-16-2024 09:49-0500Diastolic blood gbypxzcl99 mm[Hg]Helen Gonzalez MD Work Phone: 1(620)[facility] [employer] Ljkspa39-27-6702 09:49-0500Heart rate 48 /minBaemilyttabatha Gonzalez MD Work Phone: 1(684)[facility] [employer] Pnpxle18-91-7925 09:49-3374TiU1% (BldA) [Mass fraction]99 %Helen Gonzalez MD Work Phone: [phone] [employer] Bkzmcd05-21-4516 09:49-0500Systolic blood fgxxeexx206 mm[Hg]Helen Gonzalez MD Work Phone: 1(497)[facility] [employer] Hjrtft30-96-2421 12:47-0500Diastolic blood zldycpnb97 mm[Hg]Abelardo Boothby DO Work Phone: [facility] [employer] [facility] MED[facility] CENTERTellus TechnologyLPUOXW39-50-2945 12:47-0500Heart rate76 /minBenjamin Boothby DO Work Phone: [facility]Al[facility] CENTERTellus TechnologyQLKDNA74-51-1198 12:47-0500 Respiratory rate10 /minBenjamin Boothby DO Work Phone: [facility]Al[facility] Pharm[facility] CENTERTellus TechnologyMDAGFN91-69-2652 12:47-7670CfC0% (BldA) [Mass fraction]100 %Abelardo Boothby DO Work Phone: [facility]ITALAl[facility] Pharmate[facility] CENTERTellus TechnologyHQDVEN55-52-4111 12:47-0500Systolic blood nyfdoazo701 mm[Hg]Abelardo Boothby DO Work Phone: [facility]Al[facility] Pharm[facility] CENTERTellus TechnologyCXCETD49-90-1014 12:17-0500Body ysiuxuwplpv79 [degF]Abelardo Boothby DO Work Phone: [facility]ITALAl[facility] Pharm[facility] CENTERTellus TechnologyGUEYMI97-97-0379 11:14-0500Body gwgemj317.3 cmBenjamin Boothby DO Work Phone: [facility] [employer]01-17-2023 11:14-0500Body mass index (BMI) [Ratio]29.98 kg/d1Tejlbxza Boothby DO Work Phone: [facility]01-17-2023 11:14-0500Body unqosz93.08 kgBenshoaibmin Boothby DO Work Phone: [facility]12-13-2022 10:14-0500Body .26 cmII Luis Velazquez Work Phone: [facility]12-13-2022 10:14-0500 Body mass index (BMI) [Ratio]31.4 kg/m2II Luis Velazquez Work Phone: 1(547)921-[address] [place], [place] 9480612-13-2022 10:14-0500 Body uhntly40.61 kgII Luis Velazquez Work Phone: 1(180)564-[address] [place], [place] 0095712-13-2022 09:45-0500 Body vgsvjcyebgb18.5 [degF]II Luis Velazquez Work Phone: 1(927)534-[address] [place], [place] 0095712-13-2022 09:45-0500 Diastolic blood riqumfde06 mm[Hg]II Luis Velazquez Work Phone: 1(262)017-[address] [place], [place] 0095712-13-2022 09:45-0500 Heart rate68 /minII Luis Velazquez Work Phone: 1(598)423-[address] [place], [place] 0095712-13-2022 09:45-0500 Respiratory rate18 /minII Luis Velazquez Work Phone: 1(928)188-[address] [place], [place] 0095712-13-2022 09:45-0500 Systolic blood ctdrcxev378 mm[Hg]II Luis Velazquez Work Phone: 1(083)916-[address] [place], [place] 0095712-08-2022 13:59-0500 Body rcykmowmyah55.9 [degF]II Luis Velazquez Work Phone: 1(473)797-[address] [place], [place] 0095712-08-2022 13:59-0500 Diastolic blood yndndsed27 mm[Hg]II Luis Velazquez Work Phone: [facility]12-08-2022 13:59-0500 Heart rate56 /minII Luis Velazquez Work Phone: [facility]12-08-2022 13:59-0500 SaO2% (BldA) [Mass fraction]95 %II Luis Velazquez Work Phone: [facility]12-08-2022 13:59-0500 Systolic blood cqqjncvo009 mm[Hg]II Luis Velazquez Work Phone: 1(487)321-[address] [place], [place] 0095712-08-2022 07:45-0500 Respiratory rate18 /minII Luis Velazquez Work Phone: 1(202)[address]12-07-2022 07:28-0500 Body cygxlo053.26 cmII Luis Velazquez Work Phone: 1(040)[address]12-04-2022 05:50-0500 Body lylfyv619 kgII Luis Velazquez Work Phone: 1(538)515-[address] [place] [address] Encounters Encounter DateEncounter TypeCare ProviderFacilityStart: 08-06-2025 End: 93-54-9305awlulvitrpKGGKJQOLakeHealth Beachwood Medical Centertart: 08-05-2025 End: 71-79-4921MazyfnVmtt K Gupta MD Work Phone: [facility] Sp[facility] SurgeonsStart: 07-16-2025 End: 96-34-0796pfcktewikxNttxed R. ZieberFacility:[facility] Hospitaltart: 07-15-2025 End: 79-11-3385fegverwtuoIjvytd Berry II Work Phone: [facility] Work Phone: Start: 07-15-2025 End: 49-64-3515Jvprlgqpls Yury Peterson APRN-Wound Care Alex Work Phone: Start: 07-12-2025 End: 80-40-5402PrufldZuowkcb Voss LPN Work Phone: [facility] Family MedinceComment on above:Neuropathy due to type 2 diabetes mellitus (HCC); Open wound of left lower leg, subsequent encounterStart: 07-09-2025 End: 49-64-8145ylpwcygrxpSszey V. ReaganJohnmyrtue medical center:[facility] HospitalStart: 07-03-2025 End: 50-78-8744KmbzcpGkozoar Jelly [facility] Family MedinceComment on above: Open wound of left lower leg, subsequent encounterStart: 06-10-2025 End: 38-44-3948Ppjwha Melodie HANSEN Work Phone: [facility] MedinceStart: 06-10-2025 End: 88-21-2236Qtrhvvjac HANSEN Work Phone: [facility] Family MedinceStart: 06-10-2025 End: 73-78-6246Kmzxjy outpatient visit 15 minutesJuhi HANSEN Work Phone: [facility] Family MedinceComment on above:Open wound of left lower leg, subsequent encounterStart: 06-10-2025 End: 34-20-0572nplegpnyupXNLAM M HEMMERNot AvailableStart: 06-09-2025 End: 16-86-5763MbrxhqHthhwub S Rusher DPM Work Phone: [facility] [place] PodiatryComment on above:Metatarsalgia of both feetStart: 06-08-2025 End: 94-77-3595HwgbpdQhlfh M Hemmer PA Work Phone: [facility] Dumas MedinceComment on above:Primary insomniaStart: 06-03-2025 End: 22-00-5784Saogjv-up encounterJuhi HANSEN Work Phone: [facility] MedinceStart: 05-31-2025 End: 97-14-6995bofugbdvevFKDHB M HEMMERNot AvailableStart: 05-31-2025 End: 04-59-6586Gkcwyb follow up visit related to original pxDenise Willis MD Work Phone: [facility] Spine SurgeonsComment on above:S/P reverse total shoulder arthroplasty, left (Primary Dx); Left shoulder pain, unspecified chronicity; Postoperative visitStart: 05-31-2025 End: 47-78-1888zwxcqnjxxaGYHB K GUPTAPremier Health [facility]ulatory PPGStart: 05-30-2025 End: 82-33-5474Lqnfmu outpatient visit 15 minutesJuhi HANSEN Work Phone: [facility] Dumas MedinceComment on above:Open wound of left lower leg, subsequent encounter (Primary Dx); Localized swelling of left lower leg; Pain in left lower legStart: 05-30-2025 End: 47-19-6772ldddazzpxzJNZRLCarrie Paula AvailableStart: 05-30-2025 End: 79-23-1443Trhahajsx encounterJuhi HANSEN Work Phone: [facility] MedinceStart: 05-20-2025 End: 08-48-9539Heypdd flowsSteffany Sullivan PA Work Phone: [facility] MedinceStart: 05-20-2025 End: 75-98-5799Ayffqd Melodie Sullivan PA Work Phone: [facility] Dum[facility] MedinceStart: 05-20-2025 End: 92-59-2786Zjqvlmen Result EncounterJuhi HANSEN Work Phone: [facility] External Department UnsolicitedStart: 05-20-2025 End: 03-68-2102Gyxgxh outpatient visit 15 minutesJuhi HANSEN Work Phone: [facility] Family MedinceComment on above:Open wound of left lower leg, initial encounter (Primary Dx); IGT (impaired glucose tolerance)Start: 05-20-2025 End: 62-94-0292qyvaytjsqiDBNXJ M HEMMERNot AvailableStart: 05-14-2025 End: 57-00-0615VzzaypLyvc Willmar RNProMedica Physicians [facility] Orthopedic and Spine SurgeonsComment on above:Primary osteoarthritis of left shoulder (Primary Dx); Post-operative painStart: 05-02-2025 End: 68-01-5069EggbkiJbme Willmar Abeba Leyva [facility] Spine SurgeonsComment on above:Primary osteoarthritis of left shoulder (Primary Dx); Post-operative painStart: 04-30-2025 End: 74-95-7777Glutid follow up visit related to original pxDenise Willis MD Work Phone: [facility] Spine SurgeonsComment on above:S/P reverse total shoulder arthroplasty, left (Primary Dx)Start: 04-30-2025 End: 36-47-0048tkslmlvanpUDQT K [facility] Ambulatory PPGStart: 04-24-2025 End: 59-42-0076Hzbbktomt encounterFrances Alfonso Leyva [facility] SurgeonsStart: 04-17-2025 End: 56-86-5570suuglayncxTPZS K [facility] HospitalStart: 04-05-2025 End: 74-01-8629VlipzkEjdmxx B Berry MD Work Phone: [facility] CI FMComment on above:Rotator cuff impingement syndrome of left shoulder; Primary osteoarthritis of left shoulderStart: 69-83-9693Xdqhpicjt for other preprocedural examinationANIL GUUniversity Hospitals [facility] HospitalStart: 04-03-2025 End: 82-81-0321bncciracifNBOV K [facility] HospitalStart: 04-03-2025 End: 93-91-3457Rjlfhjx encounter procedureMetro Pat Provider 3PLorna Lagunas [facility] HospitalwayComment on above:Pre-op testing (Primary Dx); Primary osteoarthritis of left shoulderStart: 04-03-2025 End: 04-63-2505Kjnedfovi Velazquez MD Work Phone: [facility] CI FMStart: 04-03-2025 End: 28-69-2666Yatjgujac Velazquez MD Work Phone: [facility] CI FMStart: 04-03-2025 End: 44-33-6609Sjwtnrc encounter status[address] Work Phone: Start: 04-03-2025 End: 23-99-3805Hiogmo outpatient visit 25 minutesLuis Velazquez MD Work Phone: [facility] CI FMComment on above:Rotator cuff impingement syndrome of left shoulder (Primary Dx); Allergic dermatitis; Atherosclerosis of point [place] coronary artery of [place] heart without angina pectoris ; Pulmonary emphysema, unspecified emphysema type (HCC); Paroxysmal atrial fibrillation (HCC); Acute diastolic heart failure (HCC)Start: 04-03-2025 End: 35-16-8973twbftesvtqRMWMQW B BERRYNot AvailableStart: 03-22-2025 End: 95-26-9506QtmtsuGuqcoo B Berry MD Work Phone: [facility] CI FMComment on above:Rotator cuff impingement syndrome of left shoulder; Primary osteoarthritis of left shoulderMetatarsalgia of both feetStart: 03-11-2025 End: 25-40-2241McevepGysma M Hemmer PA Work Phone: [facility] CI FMComment on above:Primary insomniaStart: 03-06-2025 End: 40-86-9485SqhcfaUcekfli Plainfieldjason NARANJO CI FMComment on above: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); Rotator cuff impingement syndrome of left shoulder; Primary osteoarthritis of left shoulderStart: 03-04-2025 End: 38-20-9298Xcorzhxsj encounterLuis Velazquez MD Work Phone: [facility] CI FMStart: 03-01-2025 End: 17-74-0291Cdymcw Melodie HANSEN Work Phone: [facility] CI FMStart: 03-01-2025 End: 49-48-7542Petnnw Melodie HANSEN Work Phone: [facility] CI FMStart: 03-01-2025 End: 90-75-6017Qitedl outpatient visit 15 minutesJuhi HANSEN Work Phone: noMS CI FMComment on above:Cellulitis of left hand (Primary Dx)Start: 03-01-2025 End: 44-14-0102gswepfgavcZSARACarrie Paula AvailableStart: 02-20-2025 End: 15-08-6692Hkpxsu Melodie HANSEN Work Phone: [facility] CI FMStart: 02-20-2025 End: 75-03-3658Itvjhgovi HANSEN Work Phone: [facility] CI FMStart: 02-20-2025 End: 98-77-0131Fkslop outpatient visit 25 minutesJuhi HANSEN Work Phone: [facility] CI FMComment on above:Bug bite of hand, infected, left, initial encounter (Primary Dx); Rotator cuff impingement syndrome of left shoulder; Primary osteoarthritis of left shoulder; Other chronic painStart: 02-20-2025 End: 35-18-4570dvnlbwnrjyFNHANCarrie Paula AvailableStart: 02-19-2025 End: 29-65-6996toezbxkjsxHKHO K [facility] He[facility]htart: 02-07-2025 End: 03-67-0111HdkjtfYuxizpd S Rusher DPM Work Phone: noms PODIATRYComment on above:Metatarsalgia of both feetStart: 02-06-2025 End: 16-43-5548PrdoimIsuzpop Jelly NARANJO CI FMComment on above:Rotator cuff impingement syndrome of left shoulder; Primary osteoarthritis of left shoulderStart: 01-31-2025 End: 62-29-2099xenkbecvzbDSDGQWB 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; Equinus contracture of right ankle; Equinus contracture of left ankle; Plantar fat pad atrophy of right foot; Left foot pain; Right foot painStart: 01-28-2025 End: 43-62-8186rqrsxcmbeyTYXQLFC S RUSHERNot AvailableStart: 01-28-2025 End: 09-07-4091Lthgzv flowsheetAnthony S Rusher DPM Work Phone: noms PODIATRYStart: 01-28-2025 End: 60-35-6549Dbcqsk flowsheetAnthony S Rusher DPM Work Phone: noms PODIATRYStart: 01-25-2025 End: 89-60-5113Xixuhetjb encounterAnthony S Rusher DPM Work Phone: noms PODIATRYComment on above:Advice Only (Custom orthotics)Start: 01-21-2025 End: 55-66-1613Xhhdlp outpatient visit 15 minutesLuis Velazquez MD Work Phone: [facility] CI FMComment on above:Rotator cuff impingement syndrome of left shoulder (Primary Dx); Primary osteoarthritis of left shoulderStart: 01-21-2025 End: 74-26-3289Xjlfvr Kortney Velazquez MD Work Phone: [facility] CI FMStart: 01-21-2025 End: 60-28-6175Rkbgbfovi Velazquez MD Work Phone: noMS CI FMStart: 01-21-2025 End: 23-32-1249rathjxlniyUJZVPO B BERRYNot AvailableStart: 01-07-2025 End: 81-12-0836wlohhtplacVVTFGYT S RUSHERNot AvailableStart: 01-01-2025 End: 82-56-5182Vubqba outpatient visit 25 minutesMoreno Cardenas DPM Work Phone: noms PODIATRYComment on above:Left foot pain (Primary Dx); Right foot pain; Metatarsalgia of both feet; 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; Plantar fat pad atrophy of right footStart: 01-01-2025 End: 32-01-4168vljpuxrmzlMSREMHD S RUSHERNot AvailableStart: 01-01-2025 End: 20-28-2310flnbalgbhzLCNYQ M JORDONZara AvailableStart: 12-31-2024 End: 93-69-8822Mcgqbh Liya Smiley RNProMedmatthieu Physicians [facility] and Spine SurgeonsComment on above:Primary osteoarthritis of left shoulder (Primary Dx); Rotator cuff tear arthropathy of left shoulderStart: 12-31-2024 End: 36-52-1698Akvcge outpatient new 45 minutesDenise Willis MD Work Phone: [facility] Spine SurgeonsComment on above:Rotator cuff tear arthropathy of left shoulderStart: 12-12-2024 End: 23-09-8899KsctxsWbdhpa B Berry MD Work Phone: [facility] CI FMComment on above:Primary insomnia; 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)Start: 12-11-2024 End: 65-31-3288xbwselwjztZwxsw V. Westcility:[facility] Hospitaltart: 11-29-2024 End: 85-31-8732mwqqrlzilmSUFJIKVKettering Health Daytontart: 11-15-2024 End: 74-20-1075Znvwcv Kortney Velazquez MD Work Phone: [facility] CI FMStart: 11-15-2024 End: 06-64-5124Xpwpoyovi Velazquez MD Work Phone: [facility] CI FMStart: 11-15-2024 End: 34-95-9791Otqzyt outpatient visit 25 minutesDamitra Velazquez MD Work Phone: [facility] CI FMComment on above:Prostate cancer screening (Primary Dx); Mixed hyperlipidemia (CMS/HCC); Atherosclerosis of point [place] coronary artery of [place] heart without angina pectoris (CMS/HCC); Chronic combined systolic and diastolic CHF, NYHA class 1 (CMS/HCC); Chronic obstructive pulmonary disease, unspecified (CMS/HCC); Paroxysmal atrial fibrillation (CMS/HCC); Chronic venous hypertension (idiopathic) with ulcer and inflammation of right lower extremity (CMS/HCC); LymphedemaStart: 11-15-2024 End: 28-75-5083rybapjvwhmNQWIQK Jasmin Tri AvailableStart: 95-52-7270tpjyblsdti PAUL [facility] Columbustart: 10-25-2024 End: 15-60-5049xeyctlyoieYRSVTogus VA Medical Centertart: 10-19-2024 End: 68-22-4165Xmuryaqys Result EncounterGeneric External Data ProviderNOMS External Department UnsolicitedStart: 10-19-2024 End: 61-58-4472Lstaqtjox Result EncounterGeneric External Data ProviderNOMS External Department UnsolicitedStart: 10-18-2024 End: 92-24-8573Oejcozjih Result EncounterGeneric External Data ProviderNOMS External Department UnsolicitedStart: 10-18-2024 End: 79-91-7626Ngmfdoslg Result EncounterGeneric External Data ProviderNOMS External Department UnsolicitedStart: 09-27-2024 End: 05-67-1018Wsmngv outpatient new 30 minutesMohamimtiaz Hurd MD Work Phone: [facility] FremontComment on above: Venous insufficiency of both lower extremities (Primary Dx); Varicose veins of leg with pain, bilateral; Phlebitis and thrombophlebitisStart: 09-27-2024 End: 80-49-7239jhvkrtvbkfQFMRRDO F [facility] Ambulatory PPGStart: 09-18-2024 End: 68-60-1455thamxixtugUQCWProtestant Hospitaltart: 09-12-2024 End: 42-86-1767KlzfkdXsjzgsn S Rusher DPM Work Phone: [facility] FH PODIATRYComment on above:Metatarsalgia of both feetStart: 09-10-2024 End: 41-33-4891FjrqdmWorvlmt [employer] ACCOUNT REPRESENTATIVE Work Phone: [facility] CI FMComment on above:Primary insomniaStart: 09-04-2024 End: 74-44-7636DpazvdEdmap Dukles LPNNOMS CI FMComment on above:Lumbar spondylosisStart: 09-03-2024 End: 73-21-8948Ghawuc flowsTato Cardenas DPM Work Phone: NOPI PODIATRYStart: 09-03-2024 End: 73-77-0178Rpcims flowsTato Cardenas DPM Work Phone: NOXS PODIATRYStart: 09-03-2024 End: 54-82-8154Mxkrgh outpatient visit 25 minutesAnthjosse Cardenas DPM Work Phone: NOOL PODIATRYComment on above:Left foot pain (Primary Dx); Right foot pain; Metatarsalgia of both feet; Equinus contracture of right ankle; Equinus contracture of left ankleStart: 09-03-2024 End: 88-49-4834eqhumrcmcgDBTOUZD S RUSHERNot AvailableStart: 08-22-2024 End: 37-55-8705PrudhrWjudvpw Jelly NARANJO CI FMComment on above:Lumbar spondylosisStart: 08-15-2024 End: 37-39-8040Zotcspzye Result EncounterGeneric External Data ProviderNOMS External Department UnsolicitedStart: 08-15-2024 End: 86-56-0774Yluzucyxa Result EncounterGeneric External Data ProviderNOMS External Department UnsolicitedStart: 07-30-2024 End: 00-54-3660Cqafdr outpatient visit 25 minutesJuhi HANSEN Work Phone: NOMS CI FMComment on above:Lumbar spondylosis (Primary Dx); Closed compression fracture of body of L1 vertebra (HCC) (CMS/HCC); Need for vaccination; Retrolisthesis of vertebraeStart: 07-30-2024 End: 20-30-9760hmnjzxvrcpCDTMQ M HEMMERNot AvailableStart: 07-30-2024 End: 21-43-0622Vfymbh Melodie HANSEN Work Phone: NOMS CI FMStart: 07-30-2024 End: 74-76-3058Jkhswu Melodie HANSEN Work Phone: NOMS CI FMStart: 07-12-2024 End: 31-42-1939Nwnaje outpatient visit 25 minutesAlexandre Reinoso MOTORCYCLE DELIVERER Work Phone: NOMS CI FMComment on above:Lumbar paraspinal muscle spasm (Primary Dx); Acute myofascial strain of lumbar region, subsequent encounter; Back muscle spasmStart: 07-12-2024 End: 49-70-4942gxmtfmqawrHBU C MILLERNot AvailableStart: 07-12-2024 End: 64-95-8591Zzostf Leena Reinoso MOTORCYCLE DELIVERER Work Phone: NOMS CI FMStart: 07-12-2024 End: 36-36-3251Hkxysr Leena Reinoso MOTORCYCLE DELIVERER Work Phone: noMS CI FMStart: 72-09-9599sleirdxeteNJLRHI B BERRY [facility] Ambulatory PPGStart: 07-09-2024 End: 71-37-8488Fbrxbvpiq encounterEva Sanchez DO Work Phone: noms CI ORTHOPAEDICSComment on above:surgeryStart: 06-28-2024 End: 26-78-7316Uqlcwkgfo encounterGerardo Langford PT Work Phone: noms CI PTComment on above:PT check (Contacted re: cx of PT yesterday w/ an appt cehko/ Daniel today. I noted to him he had nomore PT set and he said he has felt no benefit from the PT so far. He has a fu w/ Dalton in Aug and noted he will cont w/ HEP provided and will contact if pain persists.)Start: 06-28-2024 End: 37-89-1697Lwwrnz outpatient visit 25 minutesEva Sanchez DO Work Phone: noms FB ORTHOPAEDICSComment on above:Rotator cuff tear arthropathy of left shoulder (Primary Dx); Primary osteoarthritis of left shoulderStart: 06-28-2024 End: 24-78-2710harwcppagxITGOL A HUDDLESTONNot AvailableStart: 06-21-2024 End: 24-13-6179oottxhuqltDrevqnv Kelbley PTANOMS CI PTComment on above:Right- sided low back pain without sciatica, unspecified chronicity (Primary Dx); Acute myofascial strain of lumbar region, subsequent encounter; DISH (diffuse idiopathic skeletal hyperostosis); Baastrup's syndromeStart: 06-21-2024 End: 94-36-2912Qhlaxf flowsheetMargo Villa PTANO CI PTStart: 06-21-2024 End: 95-00-6029Yagqrn flowsheetMargo Villa PTANO CI PTStart: 06-14-2024 End: 68-85-2796wuinxmizrcVhrjyi T Blackston PT Work Phone: noMS CI PTComment on above:Right-sided low back pain without sciatica, unspecified chronicity (Primary Dx); Acute myofascial strain of lumbar region, subsequent encounter; DISH (diffuse idiopathic skeletal hyperostosis); Baastrup's syndromePrimary insomnia; Neuropathy due to type 2 diabetes mellitus ([facility])Start: 06-13-2024 End: 33-62-3979lctkoksbkqFLEQP A HUDDLESTONNot AvailableStart: 06-12-2024 End: 72-29-8237fbvvxrzkziSnknmor Kelbley PTANO CI PTComment on above:Right- sided low back pain without sciatica, unspecified chronicity (Primary Dx); Acute myofascial strain of lumbar region, subsequent encounter; DISH (diffuse idiopathic skeletal hyperostosis); Baastrup's syndromeStart: 06-12-2024 End: 04-79-4570Xzpxxnxvz Result EncounterGeneric External Data ProviderNOAK External Department UnsolicitedStart: 06-12-2024 End: 07-08-1658Kmjtdvzxu Result EncounterGeneric External Data ProviderNOAK External Department UnsolicitedStart: 06-01-2024 End: 97-62-4623Ksutpsmnt encounterGerardo Langford PT Work Phone: noMS CI PTComment on above:PT Initial Eval (Tried to contact to set-up PT Eval for Acute myofascial strain of lumbar region, DISH, Baastrup's syndrome but had to lm requesting a call back.)Start: 03-06-2024 End: 31-43-5917Bsbmmeivs encounterMarina Young CHRISTINAProMedica Physicians CardiologyStart: 01-28-2024 End: 72-44-2213Mbjgghdog department patient visitSCARI FUENTSELUIS ENRIQUEMemorial Health Systemtart: 12-06-2023 End: 86-99-4325Kudwql outpatient visit 25 minutesEva Sanchez DO Work Phone: NOMS CI ORTHOPAEDICSComment on above:Left shoulder pain, unspecified chronicity (Primary Dx); Rotator cuff tear arthropathy of left shoulder; Primary osteoarthritis of left shoulderStart: 55-50-7920Huttee flowsSteffany HANSEN Work Phone: NOMS CI FMStart: 78-16-6369Vxcmcj Melodie Sullivan PA Work Phone: NOMS CI FMStart: 12-05-2023 End: 69-47-4897Qjltay outpatient visit 15 minutesJuhi HANSEN Work Phone: NOMS CI FMComment on above:Chronic obstructive pulmonary disease with acute exacerbation (CMS/HCC) (Primary Dx)Start: 11-08-2023 End: 83-28-0446Uifiwx outpatient visit 10 minutesHelen Gonzalez MD Work Phone: [facility] Jobst VascularComment on above: Venous insufficiency of both lower extremities (Primary Dx); Lymphedema of both lower extremitiesStart: 11-03-2023 End: 16-88-4151ubroosvffzAMCDMZWMR ORIOWOhio State University Wexner Medical Centertart: 62-62-8012Uvghttcrr encounterHelen Gonzalez MD Work Phone: [facility] Jobst VascularStart: 01-10-2023 End: 75-67-5780tppfktqpsiQOWXTU B BERRYAshtabula County Medical Centertart: 11-09-2022 End: 42-94-2924qcgvnfaaoxGSXEGBAA C BOOTHBYSt. Vincent Hospital Start: 11-09-2022 End: 90-50-2301Xnwfndhigm hospital visit by physicianAbelardo Babin DO Work Phone: stvz ORComment on above:Surgical site infection (Primary Dx); Post-op painStart: 11-08-2022 End: 97-39-2278joepaqkwuiHUFCTM B [facility] Hospitaltart: 10-19-2022 End: 78-42-0995Bwipogvukr and management of inpatientABELARDO PaezSonora Regional Medical Centertart: 10-14-2022 End: 70-31-1989dswmglfgaoCGTAAF B [facility] Hospitaltart: 10-05-2022 End: 83-11-4516csfynljfudEU Daniel Berry Work Phone: [facility] Work Phone: Start: 10-05-2022 End: 13-79-2926Bflbvaxebm RecurringII Luis Velazquez Work Phone: [facility] [place] Work Phone: Start: 09-11-2022 End: 79-71-6443Dgqcaeviyx and management of inpatientII Luis Velazquez Work Phone: [facility] Work Phone: Start: 29-70-7122pldualstxsMfsqwuoh BadiaRanklissett Facility:[facility] Care SolutionsStart: 09-05-2022 End: 36-64-8852Zszxvzkufu and management of inpatientYADIWANDA DOWLING ARLETHAshtabula County Medical Centertart: 51-97-9372Fewugwsjr department patient visit LUIS VELAZQUEZAshtabula County Medical Centertart: 09-03-2022 End: 77-91-1946sjwxtraxzsJnbxarnq Malika-RankerFacility:[facility] Start: 08-20-2022 End: 39-88-5422bfbfbslxxiYtoemcsw Malika-RankerFacility:[facility] Start: 08-13-2022 End: 77-85-7853aqjftjadwzPqlvetnd Malika-RankerFacility:[facility] Start: 08-06-2022 End: 00-96-0184wsiadguvdwWL Hneok Gross YulissaelFacility:[facility] Start: 07-29-2022 End: 66-15-6346yinwalyfflMX DANIEL BERRYFacility:K1Twexl: 07-14-2022 End: 67-91-9988pwfkmjfamgZS KAREN M HEMMERFacility:L5Baznf: 02-15-2022 End: 40-09-0530Wjisgfknsc and management of inpatientLUIS YANG Facility:[facility]MCStart: 10-22-2021 End: 73-66-8640zccydidnvjMU DANIEL BERRYFacility:C4Mwxmx: 08-31-2021 End: 69-66-5582sbzurholhgFE DANIEL BERRYFacility:H1 Procedures DateProcedureProcedure DetailPerforming ClinicianStart: 85-47-2187Pprmtup microbial cultureDdignity health st. [facility] Velazquez Work Phone: Start: 06-47-9892Bznkzbncd microbial [facility] Velazquez Work Phone: Start: 42-60-6557Kguc stain microscopyLuverne Medical Centersimon Velazquez Work Phone: Start: 56-02-8816Mhbnfoaeyx glycosylated o4tRbelcJuhi HANSEN Work Phone: Start: 69-01-6888TZWKNZZNSRC WOUND (HTRX)Juhi HANSEN Work Phone: Start: 75-62-3335Kasvj metabolic panel calcium total Indio Germain MD Work Phone: Start: 47-08-2116Gkzdouuiwujyuy aspir&/inj major jt/bursa w/o Christine Willis MD Work Phone: Start: 12-76-5402HJ FACILITY EST LMTDGeneric External Data ProviderStart: 66-10-0080GV EXT VENOUS RT LIMITEDGeneric External Data ProviderStart: 95-53-0601IAK CBC WITH AUTO DIFFGeneric External Data Provider Start: 93-51-1600WE FACILITY EST COMPREHENSIVEGeneric External Data Provider Start: 77-90-9944UL EXT VENOUS REFLUX ARABELLA LMTDGeneric External Data Provider Start: 76-32-7723LY ECHO DOPPLER COMPLETEGeneric External Data ProviderStart: 77-56-3297Nsvltqarqznrbt aspir&/inj major jt/bursa w/o usJasameer Sanchez DO Work Phone: Start: 20-42-1230FJQWCNCUTT W/GFR POINT OF CARE Abelardo Cainkelly DO Work Phone: Start: 10-02-0313Meqn bld gluc mntr dev cleared fda spec home useBenshoaibzena Jake Selene DO Work Phone: Start: 88-16-0715Gzvgszu microbial cultureII Luis Velazquez Work Phone: Start: 06-45-8020Jigiszfgx microbial cultureII Luis Velazquez Work Phone: Start: 45-41-8568Dcmgujsdxgqvd of transfusion reaction II Luis Velazquez Work Phone: Start: 94-08-2446Ujjtfs scan of lower limb veinsII Luis Velazquez Work Phone: Start: 61-89-2880Sdrqijkld for occult blood in fecesII Luis Velazquez Work Phone: Start: 67-94-3819Edflvmzi tomography of abdomen and pelvis with contrastII Luis Velazquez Work Phone: Start: 30-39-7084Raamaj scan of lower limb veinsII Luis Velazquez Work Phone: Start: 55-20-4507UbgeikcszuhKtxsftst Boothby DO Work Phone: Plan of Treatment DateCare ActivityDetailAuthorStart: 81-37-3859ABnA,Tdap and Td Vaccines (3 - Td or Tdap)DTaP,Tdap and Td Vaccines (3 - Td or Tdap)[facility] SystemStart: 10-93-0920XFlX/Tdap/Td vaccine (3 - Td or Tdap)DTaP/Tdap/Td vaccine (3 - Td or Tdap)LASHAY [facility]ENTERStart: 59-91-1668Gpvbbpxec for malignant neoplasm of colonBON [facility]ENTERStart: 52-41-0021Jjnsl BMI ScreeningAdult BMI ScreeningAdena Regional Medical Center SystemStart: 53-04-1883Dtvabuo ScreeningTobacco ScreeningAdena Regional Medical Center SystemStart: 90-38-3689Wivprjd ScreeningTobacco ScreeningDoctors Hospitalca Health SystemStart: 42-78-9535Cacvo BMI ScreeningAdult BMI ScreeningDoctors Hospitalca [facility] SystemStart: 71-22-4174Ivyloiy ScreeningTobacco ScreeningAdena [facility] SystemStart: 54-42-0792Fwhed BMI ScreeningAdult BMI ScreeningAdena Regional Medical Center SystemStart: 14-58-7348Sgagrps ScreeningTobacco ScreeningAdena Regional Medical Center SystemStart: 25-37-9289Bjkuk BMI ScreeningAdult BMI ScreeningAdena Regional Medical Center SystemStart: 12-58-3808Ptkvpip ScreeningTobacco ScreeningAdena Regional Medical Center SystemStart: 09-02-2025 End: 35-86-9390Cjjdycn encounter nxhqcvemj14/10/2025 2:30 PM EST Office Visit [facility] [address] [place] [address] Moreno Cardenas, DPM [address] [place] [address] [facility] PodiatryStart: 08-22-2025 End: 73-50-1250Djohvgq encounter cbtczvijh21/30/2025 11:45 AM EDT Office Visit ROBERT Dumas [facility] [address] [facility] [address] [place] [address] Luis Velazquez MD [address] [facility] [address] [place] [address] ROBERT Dumas [facility] CenternceStart: 08-20-2025 Hemoglobin A1c measurementDiabetes: Hemoglobin F0UHLLDSSM [facility] CenterStart: 07-22-2025 End: 88-98-7657Ftqgvbf encounter tmxkibzcy40/29/2025 9:20 AM EDT Office Visit [facility] [place] [facility] [address] [place] [place] [address] Denise Willis MD [address] [place] [address] [facility] [place] [facility] Sp[facility] SurgeonsStart: 69-67-7909JEWWV-19 Vaccine ( season)COVID-19 Vaccine ()[facility] SystemStart: 51-07-1782JSGGY-19 Vaccine ( season)COVID-19 Vaccine ()NOMS HealthcareStart: 78-70-4053Seeignlfz vaccinationProFulton County Health Centerca Health SystemStart: 06-10-2025 End: 47-40-2385Bfpvipa encounter zauxdyuue32/18/2025 4:30 PM EDT Office Visit [facility] [address] [place] [address] [place] [address] Juhi Sullivan PA [address] [place] [address] [facility] [facility] MedinceStart: 06-10-2025 End: 02-74-3545Udzqmxp encounter klwkfvwho01/18/2025 1:30 PM EDT Office Visit [facility] [address] [place] [place] [address] Juhi Sullivan PA [address] [place] [address] ArrivedNOMS [place] Dumas MedinceComment on above:ArrivedStart: 06-06-2025 End: 68-60-5043Afmqoyr encounter ivhwkyovh11/14/2025 3:30 PM EDT Office Visit [facility] [address] [place] [place] [address] Juhi Sullivan PA [address] [place] [address] NOMPatrice Dumas [facility] HospitaleStart: 05-30-2025 End: 89-35-0573TD.doppler Lower extremity vein - leftVascular US lower extremity venous duplex left Imaging STAT Localized swelling of left lower leg Pain in left lower leg Expected: 05/30/2025, Expires: 05/30/2026[facility] Work Phone: Comment on above:Expected: 05/30/2025, Expires: 05/30/2026Start: 05-28-2025 End: 76-90-4621Igzddsi encounter foawbjkgv44/05/2025 1:45 PM EDT Office Visit [facility] [address] [place] [address] Denise Willis MD [address] [place] [address] [facility] [place] [facility] SurgeonsStart: 05-20-2025 End: 23-72-0413WDYQEMAKEXW WOUND (HTRX)SUPERFICIAL WOUND (HTRX) Lab Routine Open wound of left lower leg, initial encounter Expected: 05/20/2025 (Approximate), Expires: 05/20/2026[facility] Work Phone: Comment on above:Expected: 05/20/2025 (Approximate), Expires: 05/20/2026Start: 05-20-2025 End: 70-86-5999Jovjtra encounter hyczjgrsw34/28/2025 1:30 PM EDT Office Visit [facility] [place] [address] [facility] [address] [place] [address] Juhi Sullivan PA [address] [facility] [address] [place] [address] [facility] [place] Dumas MedinceComment on above:ArrivedStart: 05-15-2025 End: 16-92-7799Brffbbl encounter detzbeoxp42/23/2025 9:30 AM EDT Office Visit [facility] CI FM [address] [facility] [address] [place] [address] Luis Velazquez MD [address] [facility] [address] [place] [address] NOMS CI FMStart: 04-30-2025 End: 14-16-2227Tylfjhs encounter itgpjqohf69/08/2025 2:50 PM EDT Office Visit [facility] [place] [facility] [address] [place] [address] Denise Willis MD [address] [place] [address] [facility] [place] [facility] Sp[facility] SurgeonsStart: 04-17-2025 End: 27-59-9207Uzyexuboj to same day surgery ytmiib1104/17/2025 10:15 AM EDT - 04/17/2025 12:45 PM EDT Surgery [facility] -Surgery [address] [place] [address] Denise Willis MD [address] [place] [address] REVERSE ARTHROPLASTY TOTAL SHOULDER [33518 (CPT )][facility] - SurgeryComment on above:REVERSE ARTHROPLASTY TOTAL SHOULDER [40907 (CPT )]Start: 04-17-2025 End: 80-49-3116Nnzlruvwbgjk glenohumeral joint total shoulderREVERSE ARTHROPLASTY TOTAL SHOULDER 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 04/17/2025 10:15 AM EDTRAYMOND SURGERYStart: 98-21-8362Zwhmggoykv hospital visit by qyjvpzrfj85/25/2025 10:15 AM EDT Hospital Encounter [facility] Surgery [address] [place] [address] Denise Willis MD [address] [place] [address] [facility] SurgeryStart: 04-03-2025 End: 63-74-8490Oqvgnhe encounter procedureNOMS CI FMComment on above:Arrived Start: 03-25-2025 End: 70-90-7285Npmxqmo encounter nxdgiymxd15/02/2025 11:30 AM EDT Office Visit [facility] [address] [place] [place] [address] Luis Velazquez MD [address] [place] [address] NOMS CI FMStart: 03-04-2025 End: 94-76-6586Hvabhwt encounter dlppkzbvi14/12/2025 3:00 PM EDT Office Visit [facility] [address] [place] [place] [address] Juhi Sullivan PA [address] [place] [address] NOMS CI FMStart: 03-01-2025 End: 58-95-4669IWLKLNYARXC WOUND (HTRX)SUPERFICIAL WOUND (HTRX) Lab Routine Cellulitis of left hand Expected: 03/01/2025 (Approximate), Expires: 03/01/2026 [facility] Work Phone: Comment on above:Expected: 03/01/2025 (Approximate), Expires: 03/01/2026Start: 03-01-2025 End: 29-49-1502Drchkds encounter fpfzbqjil71/09/2025 11:30 AM EDT Office Visit [facility] [address] [place] [place] [address] Juhi Sullivan PA [address] [place] [address] ArrivedNOMS CI FMComment on above:ArrivedStart: 02-20-2025 End: 61-95-9984Rdgvxqy encounter zmqmbbsix60/30/2025 11:30 AM EDT Office Visit [facility] [address] [place] [place] [address] Juhi Sullivan, JADE [address] [place] [address] ArrivedNOMS CI FMComment on above:ArrivedStart: 02-18-2025 End: 04-38-2450Cepakxv encounter qqetjtfah55/28/2025 2:00 PM EDT Office Visit [facility] [address] [place] [address] Moreno Cardenas DPM [address] [place] [address] NOMS PODIATRYStart: 01-28-2025 End: 32-69-8671Qgiqibl encounter procedureNOMS PODIATRYComment on above: ArrivedStart: 39-71-5301Ljglv BMI ScreeningAdult BMI ScreeningProSheltering Arms Hospital SystemStart: 01-21-2025 End: 67-31-0027Mumzafx encounter procedureNOMS CI FMComment on above:Arrived Start: 01-07-2025 End: 33-11-4832Esyawsz encounter nudufuavp08/17/2025 3:00 PM EDT Office Visit [facility] [address] [place] [address] Moreno Cardenas DPM [address] [place] [address] [facility] PODIATRYStart: 12-31-2024 End: 91-96-8134RY Shoulder - left WO contrastCT shoulder left without contrast Imaging Routine 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 Expected: 12/31/2024, Expires: 12/31/2025[facility] Work Phone: Comment on above:Expected: 12/31/2024, Expires: 12/31/2025Start: 11-15-2024 End: 24-55-0126Tajgt 1996 panel - Serum or PlasmaLipid panel Lab Routine Mixed hyperlipidemia (CMS/HCC) Expected: 11/15/2024 (Approximate), Expires:11/15/2025 [facility] Work Phone: Comment on above:Expected: 11/15/2024 (Approximate), Expires: 11/15/2025Start: 11-15-2024 End: 47-85-0411Tlruddl encounter procedureNOMS CI FMComment on above:Arrived Start: 71-71-3675Ebxvq BMI ScreeningAdult BMI ScreeningAdena [facility] Center System Start: 00-39-3922Hmpvlcj ScreeningTobacco ScreeningAdena Regional Medical Center SystemStart: 10-15-2024 End: 85-63-9345Jmpyifa encounter omrkkwzjp25/23/2024 1:15 PM EST Office Visit [facility] [address] [place] [address] Moreno Cardenas, DPM [address] [place] [address] [facility] PODIATRYStart: 09-86-6134Yuwrsqb ScreeningTobacco Screening [facility] SystemStart: 42-01-1788Wsfah BMI ScreeningAdult BMI Screening [facility] SystemStart: 10-09-2024 End: 13-28-1424Vpswmtc encounter capckqfdd77/17/2024 1:00 PM EST Office Visit [facility] [address] [place] [address] Denise Willis MD [address] [place] [address] [facility] [place] [facility] SurgeonsStart: 30-76-6301Duejx screening for proteinDiabetes: Urine Protein ScreeningNOAK HealthcareStart: 08-15-2024 End: 04-38-7188Kmgnxtb encounter xbchyvpzb45/23/2024 3:00 PM EDT Office Visit [facility] [address] [place] [address] Alexandre Reinoso, MOTORCYCLE DELIVERER [address] [place] [address] NOM[facility] CI FMStart: 08-01-2024 End: 06-58-5437Bgyggvl encounter ozmbopzzd06/09/2024 3:30 PM EDT Office Visit [facility] [address] [place] [address] Luis Velazquez MD [address] [place] [address] NOMS CI FMStart: 08-01-2024 End: 74-07-6614Jmlrhzd encounter tzdbegugf42/09/2024 11:15 AM EDT Office Visit [facility] [address] [place] [address] Luis Velazquez MD [address] [place] [address] NOMS CI FMStart: 07-30-2024 End: 18-47-4684Huhvvvi encounter waesrqyej41/07/2024 4:00 PM EDT Office Visit [facility] [address] [place] [address] Juhi Sullivan PA [address] [place] [address] ArrivedNOMS CI FMComment on above:ArrivedStart: 07-30-2024 End: 45-41-9026QJ Lumbar spine WO contrastMR lumbar spine wo contrast Imaging Routine Lumbar spondylosis Closed compression fracture of body of L1 vertebra (HCC) (CMS/HCC) Retrolisthesis of vertebrae Expected: 07/30/2024, Expires: 07/30/2025[facility] Work Phone: Comment on above:Expected: 07/30/2024, Expires: 07/30/2025Start: 07-12-2024 End: 14-00-8708Ucbrvdf encounter wlgakewci90/19/2024 3:30 PM EDT Office Visit [facility] [address] [place] [address] Alexandre Reinoso, MOTORCYCLE DELIVERER [address] [place] [address] ArrivedNOAK CI FMComment on above:ArrivedStart: 06-28-2024 End: 58-33-6530Paattxb encounter /05/2024 1:00 PM EDT Office Visit [facility] [address] [place] [address] Eva Sanchez, [address] [place] [address] [facility] FB ORTHOPAEDICSStart: 06-27-2024 End: 81-62-0701bkfthkomhg11/04/2024 3:00 PM EDT Treatment [facility] [address] [place] [address] Margo Villa, [place] NOMS CI PTStart: 28-62-8898UDIVB-19 Vaccine ( season)COVID-19 Vaccine ()[facility]atiedic Health SystemStart: 21-90-2670Cygpqkeio vaccinationLIFEPOINT HOSPITALS HealthcareStart: 06-21-2024 End: 94-59-0963gmpjrhumrxLSZV CI PTComment on above:Right-sided low back pain without sciatica, unspecified chronicity (Primary Dx); Acute myofascial strain of lumbar region, subsequent encounter; DISH (diffuse idiopathic skeletal hyperostosis); Baastrup's syndromeStart: 06-19-2024 End: 72-22-0528kmgnncsqfx85/27/2024 3:00 PM EDT Treatment [facility] [address] [place] [address] Margo Villa PTA N[facility] CI PTStart: 06-14-2024 End: 11-20-9454rxdvabvmxp30/22/2024 3:00 PM EDT Treatment [facility] [address] [place] [address] Jonah Reynolds PTANO CI PTStart: 06-13-2024 End: 11-99-1069Hznrovsnlreh / ancillary services ekzikiwyna24/21/2024 9:30 AM EDT Ancillary Procedure [facility] [address] [place] [address] [facility] FNR MRStart: 39-10-4956Taqsvahrgq A1c measurement Diabetes: Hemoglobin K1BTZSNSaint John[facility] HospitalStart: 03-07-2024 End: 44-74-9024Vqjilro encounter /15/2024 1:30 PM EDT Office Visit [facility] [address] [place] [id number] Lauren Martin MD [address] [place] [address] Jamaal Celaya MD [address] [place] [address] [facility] Start: 02-07-2024 End: 60-03-4476Stxzins encounter vanbsecsd62/16/2024 1:00 PM EDT Office Visit [facility] [address] [place] [address] Helen Gonzalez MD [address] [place] [address] [facility]: 01-31-2024 End: 68-64-7860Fnacdyr encounter rdiglnlle72/09/2024 1:15 PM EDT Office Visit [facility] [address] [place] [address] Eva Sanchez, [address] [place] [address] [facility]ICSStart: 03-22-2024Medicare Annual Wellness (AWV)Medicare Annual Wellness (AWV)[facility] HealthcareStart: 12-19-2023 End: 43-28-0262Dpqdugc encounter usaselpdr36/26/2024 2:30 PM EST Office Visit [facility] [address] [facility] [address] [place] [address] Luis Velazquez MD [address] [facility] [address] [place] [address] [facility] FMStart: 12-05-2023 End: 69-03-1256Gocspql encounter qfznmdsio56/12/2024 10:00 AM EST Office Visit [facility] [address] [facility] [address] [place] [address] Juhi Sullivan PA [address] [facility] [address] [place] [address] ArrivedNOMS CI FMComment on above:ArrivedStart: 11-08-2023 End: 61-74-7167Yuhqhii encounter fdllxqhek81/16/2024 10:10 AM EST Office Visit [facility] [address] [place] [address] Helen Gonzalez MD [address] [place] [address] [facility] Jobsbrennen VascularStart: 11-03-2023 End: 58-64-1087Tayvxln encounter nsdbvtiem39/11/2024 2:30 PM EST Appointment [facility] - [facility] [address] [facility] [place] [address] Helen Gonzalez MD [address] [place] [address] [facility] HospitalStart: 38-21-3489Tgejkimkap A1c measurementDiabetes: Hemoglobin K8FXEUMSSM Saint Mary's Health CenterStart: 96-80-9859DUFFZ-19 Vaccine ( season)COVID-19 Vaccine ( season)[facility] SystemStart: 66-24-5451MXqA/Tdap/Td Vaccines (3 - Td or Tdap)DTaP/Tdap/Td Vaccines (3 - Td or Tdap)[facility] Start: 11-22-2022 End: 89-64-5447Tdmsjjd encounter /30/2023 Office Visit Orthopedic Surgery Abelardo Babin, DO [address] [facility] [address] [place], [id number] [facility]ISTSStart: 11-15-2022 End: 60-16-3088Sehdbtl encounter jzeuryqvi52/23/2023 Office Visit Orthopedic Surgery Abelardo Babin, DO [address] [facility] [address] [place], [id number] [facility] SPECIALISTSStart: 11-09-2022 End: 63-76-6127GNPFK OPEN REDUCTION INTERNAL FIXATIONANKLE OPEN REDUCTION INTERNAL FIXATION Open wound of left ankle, initial encounter 11/09/2022 11:14AM [facility] - Dublintart: 54-44-9788Iddbwk Wellness Visit (AWV) Annual Wellness Visit (AWV)[facility]ITALStart: 92-52-3532VudtxcwzbBlanchard Valley Health System Bluffton Hospitaltart: 28-65-1091Jdbiebvo to vascular surgeonBlanchard Valley Health System Bluffton Hospitaltart: 46-25-6025Nffviudh admissionBlanchard Valley Health System Bluffton Hospitaltart: 27-70-8835Iaificim to clinical allergistBlanchard Valley Health System Bluffton Hospitaltart: 65-64-3430Dvtgcejje vaccinationFlu vaccine (#1)[facility]ITALStart: 46-73-4822Szejmjvjvojzxe of varicella zoster vaccineZoster (Shingles) Vaccine (2 of 2)[facility] Systemtart: 55-80-6611Gjdfcqsm vaccine (2 of 2)Shingles vaccine (2 of 2)[facility]ITALStart: 91-03-3346Qrqgl panelLipidsB[facility]OSPITALStart: 35-82-4313UONPF-19 Vaccine (4 - Booster for Pfizer series)COVID-19 Vaccine (4 - Booster for Pfizer series)[facility]ITALStart: 62-32-8707Wjqxdqor screeningDiabetes: Retinopathy ScreeningLIFEPOINT HOSPITALS HealthcareStart: 86-71-8984Tmwochgsj aortic aneurysm screeningAbdominal Aortic Aneurysm (AAA) ScreenRutherford Regional Health Systemtart: 25-09-6285Qhcw Risk ScreeningFall Risk ScreeningRutherford Regional Health Systemtart: 61-84-1621Mvfgevpah for malignant neoplasm of colonBON [facility] Start: 68-18-6668Onnzx BMI Follow Up PlanAdult BMI Follow Up PlanRutherford Regional Health Systemtart: 18-29-2927Hlupiand foot examinationDiabetic Foot Exam [facility] [employer] [facility] Centertart: 46-32-6549Eeizsqwry C screeningHepatitis C screen [facility]ITALStart: 34-16-0385Ynrzkubphu ScreenDepression ScreenBON [facility]OURS [facility]MOND [facility] HOSPITALStart: 17-61-4262Zffuwtffyz ScreeningDepression Screening [facility] [employer] [facility] Centertart: 92-55-9420Yshpbynm screeningDiabetic Ophthalmology ExamRutherford Regional Health Systemtart: 1956Medicare Annual Wellness Visit Medicare Annual Wellness VisitRutherford Regional Health Systemtart: 45-89-4194Gfetfadmd for malignant neoplasm of colonNOAK HealthcareStart: 19-31-4170Iipykq Use: DiabeticStatin Use: DiabeticUpper [facility] Medical Center End: 11-96-1863KUXUIPVA PACU OXYGEN THERAPY PROTOCOLInitiate PACU Oxygen Therapy Protocol Respiratory Care Routine Continuous until discontinued starting 11/09/2022ON [facility] Work Phone: Comment on above:Continuous until discontinued starting 11/09/2022atient EducationDeep Vein Thrombosis (Blood Clots in the Legs) (DC) Apixaban Going Home on Blood ThinnerMercy Health Tiffin Hospital Work Phone: Patient [facility] Work Phone: End: 55-31-9311MVB CHEM8 INCLUDES CALC. ANION GAPPOC CHEM8 INCLUDES CALC. ANION GAP Point of Care Testing STAT One Time for 1 Occurrences starting 11/09/2022 until 3[facility] Work Phone: comment on above:One Time for 1 Occurrences starting 11/09/2022 until 3Prostate specific Ag [Mass/volume] in Serum or Plasma PSA Lab Routine Prostate cancer screening Ordered: 11/15/2024[facility] Comment on above:Ordered: 11/15/2024[facility] Immunizations Immunization DateImmunizationNotesCare WhovpoejHvwqspjr85-14-5056Guoczdfza, High-dose Seasonal, Quadrivalent, Preservative FreeJuhi HANSEN Work Phone: [facility] CenterTzsixqbizy78-41-9748ofcfgtuay virus vaccine, unspecified formulationMetro [address] [place], [place] [address]Xmhbls95-82-7429Danjdxshi, High- dose Seasonal, Quadrivalent, Preservative FreeJuhi HANSEN Work Phone: [facility] CenterOcydiifgrl05-83-7621mwkjkxewr virus vaccine, unspecified formulationJegeorgina [facility]11-13-2022 tetanus toxoid, reduced diphtheria toxoid, and acellular pertussis vaccine, adsorbedBenjamin Boothby DO Work Phone: [facility]ENTERXKMJBW76-68-0690luzkhtd toxoid, reduced diphtheria toxoid, and acellular pertussis vaccine, adsorbedJuhi Hemmer PA Work Phone: [facility] CenterQvmimndlph37-84-2898rwsgxj vaccine recombinant Juhi HANSEN Work Phone: [facility] CenterTnkvxnhrdr18-94-0313tqtzgy vaccine, unspecified formulationHelen Gonzalez MD Work Phone: [phone] Medical CenterSyiuhs67-61-3049Vleshezxsonn Conjugate PCV 20Juhi HANSEN Work Phone: [phone] [place], [place] [address]Kymxqvomwv44-55-1823wnaoumhssund polysaccharide vaccine, 23 valentKaren Hemmer PA Work Phone: [phone] [place], [place] [address]Mhsfinctsh94-22-4572kcvfvujal, high dose seasonal, preservative-freeKaren Hemmer PA Work Phone: [phone]-[address] [place], [place] [address]Wlahgwhvrg77-92-5625xqnwanzus, high dose seasonal, preservative-freeKaren Hemmer PA Work Phone: [phone] [place], [place] [address]Cebyivbueu41-32-5496Aqabnq Purple Cap SARS-CoV-2 VaccinationKaren Hemmer PA Work Phone: [phone] [place], [place] [address]Zhkbvbvorq45-17-9118Uktkva Purple Cap SARS-CoV-2 VaccinationKaren Hemmer PA Work Phone: [phone] [place], [place] [address]Cimxltksuj58-64-9985Kysgda Purple Cap SARS-CoV-2 VaccinationKaren Hemmer PA Work Phone: [phone] [place], [place] [address]Zufbfcfkkc86-55-1656Fyrpas Purple Cap SARS-CoV-2 VaccinationKaren Hemmer PA Work Phone: [phone] [place], [place] [address]Mzqtzejgbg67-73-3234pfpzfclgy, injectable, quadrivalent, preservative freeKaren Hemmer PA Work Phone: [phone] [place], [place] [address]Ghvjwevxia96-83-3843nuojucmkp, high dose seasonal, preservative-freeKaren Hemmer PA Work Phone: [phone] [place], [place] [address]Wtsqovlvho59-61-7989Odizauyzj, injectable, Madin Janie Canine Kidney, quadrivalent with preservativeKaren Hemmer PA Work Phone: [phone] [place], [place] [address]Frrdlkzhzs69-72-0040enzdavtza, injectable, madin janie canine kidney, preservative freeKaren Hemmer PA Work Phone: [phone] [place], [place] [address]Rwpjjzvkxi17-09-4525swpbhvbog, injectable, quadrivalent, preservative freeII Luis Velazquez Work Phone: [phone] [place], [place] [address]10-10-2018seasonal influenza, intradermal, preservative freeKaren Hemmer PA Work Phone: [phone] [place], [place] [address]Whridlffjm17-83-0712cxykfhpow, injectable, quadrivalent, preservative freeTamiren Hemmer PA Work Phone: noSaint John's HospitalZihjdxjmbl40-30-0367ylsqiqzufuml polysaccharide vaccine, 23 valentKaren Hemmer PA Work Phone: noSaint John's HospitalAyklfsiqyc89-59-0863arrrplsp influenza, intradermal, preservative freeTamiren Hemmer PA Work Phone: [facility] Payers DatePayer CategoryPayerPolicy [id number]-[id number] 2023Medicare (Managed Care)[facility] [place] [id number] 2023MedicareMedicare [employer] MEDIC[employer] ADVANTAGE Member Subscriber Plan / Payer (Effective 2022- Present) Name: Indio Collado Member ID: [id number] Relation to Subscriber: Self Name: Indio Collado Subscriber ID: [id number] Payer ID: [id number] (NAIC) Type: Not on file Address: [facility] [id number] [place] [id number] 1.2.840.385079.1.13.239.2.7.3.001969.48201-63-0502Uzuzdxm71505003489-15-5708 [id number] [id number] [id number] [id number] [id number] 2.16.840.1.700250.3.579.2.90173-28-0165Czsuqby9637681 2.16.840.1.037684.3.579.2.71539-10-9275Lirselv7936510 2.16.840.1.379914.3.579.2.86739-09-2608Mbrimsg8115170 2.16.840.1.027059.3.579.2.56494-72-1897Ebxhzws4104921 2.16.840.1.342969.3.579.2.85028-46-6032Nstkppc055234698 2.16.840.1.350906.3.579.2.48050-41-8513Fjfcygr225530353 2.16.840.1.312542.3.579.2.50094-21-1876Gyqszvj967837017 2.16.840.1.609035.3.579.2.06207-08-6986Slnljko772357711 2.16.840.1.843742.3.579.2.18894-06-7305Asmaqhc432736713 2.16.840.1.085562.3.579.2.56727-10-7134Bqxnwve455308316 2.16.840.1.422850.3.579.2.02986-93-7254Hyknoxa317166456 2.16.840.1.715026.3.579.2.20826-85-8784Sjqqxnt350122172 2.16840.1.429805.3.579.2.00494-47-4727Uvoipwe699982600 2.16.840.1.726417.3.579.2.30781-01-4277Jxhtvvw172445286 2.0.1.884412.3.579.2.77805-88-2883Ecqbydy516634706 2.16840.1.502642.3.579.2.67560-98-6470Wgusgwi49641790 2.0.1.850666.3.579.2.392457-61-2401Krctdny12479042 2.0.1.403465.3.579.2.341352-45-7335Hjmuboz3132349 2.0.1.092287.3.579.2.332152-13-0073Ywtplcm781677342 2.0.1.597389.3.579.2.239214-84-0686Lyjyuod737706670 2.840.1.808550.3.579.2.308469-80-3911Bpixbso656904628 2.0.1.746148.3.579.2.924417-13-8865Ormrkjg096792055 2.840.1.089505.3.579.2.359138-09-6095Tgymkwi270956977 2.840.1.160897.3.579.2.056991-02-4778Oyqonic126739009 2.16840.1.275255.3.579.2.889233-29-1577Pmzymsv620519448 2.840.1.503860.3.579.2.951769-54-2080Ejbnfcs563284247 2.16840.1.467014.3.579.2.294436-45-5524Ijorqja616183589 2.16.840.1.263840.3.579.2.236811-48-2050Nmvkqki05352396 2.16840.1.429682.3.579.2.755204-91-1472Dxopxyy43981684 2.16840.1.247613.3.579.2.317726-32-1670Tyajent99041774 2.16840.1.007213.3.579.2.255240-11-0671Hvdjpxv21628305 2.16840.1.762157.3.579.2.287622-83-0644Jehhkox66622461 2.840.1.111798.3.579.2.406549-55-8110Xipkqpp36884168 2.840.1.018966.3.579.2.890282-76-0420Zipiyoq90777256 2.16840.1.871935.3.579.2.399302-04-7008Kbqsyzo6161751 2.16840.1.139321.3.579.2.045102-37-7676Fgmbkgp4926473 2.16840.1.594839.3.579.2.399516-36-5488Fhvqawv4376900 2.16840.1.118917.3.579.2.880479-05-8231Dtpyuzn2225984 2.16840.1.801507.3.579.2.973737-20-5770Gsvmabj1941106 2.16840.1.285898.3.579.2.745260-90-8286Bpmpijz2600238 2.16.840.1.949877.3.579.2.679898-20-6522Yezieeq2551532 2.16.840.1.250634.3.579.2.118396-26-8794Tvsnvii8454946 2.16840.1.026588.3.579.2.248366-79-3358Uzobtyq4374543 2.16840.1.263451.3.579.2.641920-26-0862Vmawqoz5533705 2.16840.1.489180.3.579.2.875818-98-8234Fhoxkgs5982265 2.840.1.365921.3.579.2.013583-37-4749Ycibnsp8476623 2.840.1.335549.3.579.2.757774-20-0018Ojmtvmz5513893 2.840.1.385899.3.579.2.261628-90-6545Pubalhk2636044 2.16840.1.543229.3.579.2.450866-64-8949Rquewro5612039 2.16840.1.306768.3.579.2.896883-94-9287Whpbfwc4556066 2.840.1.811112.3.579.2.155113-07-1938Mbzsjih78212397 2.16840.1.216530.3.579.2.07097-61-8298Bldyebt96067034 2.16840.1.980528.3.579.2.30407-01-3195Beisnbo56334156 2.16840.1.031426.3.579.2.41980-26-3685Cowhtvp70778217 2.16.840.1.951232.3.579.2.718Private Health InsuranceMount Carmel Health System [id number] 1jl89apb-[id number]-01u1-s7wv-5781h9zn0v7pHsvzlpu18061551 2.16.840.1.631866.3.579.2.531 Social History DateTypeDetailFacilityStart: 09-06-2022 End: 51-63-4976Bljjuiu smoking status NHISEx-smokerAdimab Start: 10-24-1954 End: 35-95-7435Aweqate of tobacco useCurrent smokerGolden Hill Paugussetts Phone: start: 10-24-1954 End: 44-60-8860Iahsgro of tobacco useCigarette SmokerGolden Hill Paugussetts Phone: start: 09-06-2022 End: 87-56-5524Pgdunsq use and exposureSmokeless tobacco non-userBON [employer] Phone: start: 11-09-2022 End: 84-35-9607Lnzcrdi intakeEx-drinker (finding)[facility] Phone: start: 53-46-3276Epzthnl CommentoccasionalBANNER REHABILITATION [facility] [employer] Phone: start: 01-57-6473Mwr Assigned At BirthNot on fileAdimab Work Phone: start: 10-09-2022 End: 30-99-5205Hywuabng to SARS-CoV-2 (event)Not sureAdimab Start: 50-12-3432Zrq Assigned At [facility] Start: 05-30-2023 End: 24-49-0747Vlhqxye of Social functionNOMS Healthcare Work Phone: Start: 05-30-2023 End: 44-88-4721Pfzdvjcrtoa, Afraid, Rape, and Kick questionnaire [HARK][facility] Work Phone: Within the last year, have you been afraid of your partner or ex-partner?NoN[facility]S Healthcare Work Phone: Do you belong to any clubs or organizations such as baptist groups, unions, fraternal or athletic groups, or school groups?YesNOMS HealthcareAre you now , , , , never or living with a partner?DivorcedNOMS HealthcareHow often to you have a drink containing alcohol?Monthly or lessNOMS HealthcareHow many standard drinks containing alcohol do you have on a typical day?1 or 2NOMS HealthcareHow often do you have 6 or more drinks on 1 occasion?NeverNOMS HealthcareStart: 01-05-2023 How hard is it for you to pay for the very basics like food, housing, medical care, and heatingNot hard at allNOMS HealthcareDo you feel stress - tense, restless, nervous, or anxious, or unable to sleep at night because yourmind is troubled all the time - these days [OSQ]Only a littleNOMS Healthcare(I/We) worried whether (my/our) food would run out before (I/we) got money to buy more. Never trueNOMS HealthcareStart: 73-05-7488Uazaoaf CommentLast smoked 10-15 years NOM HealthcareStart: 16-01-5534Dsqtzmw CommentCaffeine intake: yes, coffeeNOAK HealthcareStart: 10-13-2023 End: 18-84-9796Jluvmgm intakeCurrent non-drinker of alcohol (finding)[facility] SystemStart: 74-82-4052TeyBpoo (finding)[facility] SystemDo you feel stress - tense, restless, nervous, or anxious, or unable to sleep at night because yourmind is troubled all the time - these days [OSQ]To some extentNOMS HealthcareHow often do you need to have someone help you when you read instructions, pamphlets, or other written material from your doctor or pharmacy [SILS]RarelyNOMS Healthcare Medical Equipment Procedure CodeEquipment CodeEquipment Original TextEquipment IdentifierDates Screw Bne L80mm Dia3.5mm Pelv [place] S [address] Thrd Sm Hex - [id number] Start: 17-44-3317Phxxg Bone L103mm 7 H Strl Lt Lat Dstl Fibular S Stl For - [id number]: 88-79-6724Xyhhomj Hum 36mm Cmprh Std Shldr Prlng Rvrs - [id number]()[id number], 767134_imp FDAStart: 83-85-4678Mgcvlozxa Feliberto Cmprh Sm Shldr Aug Tpr Adpr - [id number] ()[id number])[id number], 767103_imp FDAStart: 04-17-2025 Component Feliberto 36mm Std Glenosphere Clr Cd Cmprh Versa-Dial - [id number] ()[id number])[id number], 767111_imp FDAStart: 77-82-5913Xdeh Hum 55mm 13mm Cmprh Por Kimberly Shldr Rvrs Sys - [id number] ()[id number])[id number])[id number], 767131_imp FDAStart: 94-32-4002Pahk Hum Cmprh +3mm Std Shldr Rvrs - [id number] ()[id number])[id number])[id number], 767133_imp FDAStart: 53-88-3702Zjpmq Bn 25mm 6.5mm Cntr Hx Hd Ti Cmprh 3.5mm Strl Rvrs - [id number] ()[id number])[id number], 767108_imp FDAStart: 83-84-5621Yduva Bn 20mm 4.75mm Lck Fx Ang Hx Hd Ti Cmprh 3.5mm Strl - [id number] ()[id number])[id number])[id number], 767114_imp FDAStart: 53-92-2585Yyvyk Bn 20mm 4.75mm Lck Fx Ang Hx Hd Ti Cmprh 3.5mm Strl - [id number] ()[id number])[id number])[id number], 767115_imp FDAStart: 75-05-0150Kgldb Bn 15mm 4.75mm Lck Fx Ang Hx Hd Ti Cmprh 3.5mm Strl - [id number] ()[id number](17)[id number](10)[id number], 767116_imp, 767117_imp FDAStart: 04-17-2025 Goals DatePatient GoalDesired Activity/StatePersonal health goalComment on above: Evaluation of progress towards goal: Safe dc transition from hospital to home with family support.Personal health goalPersonal health goalComment on above: Evaluation of progress towards goal: Maximize work with PT at discharge to strengthen left shoulder Functional Status FqrdPutjsgxfxjJhffdkHvbnonsn78-44-4333Bsghikw Health Questionnaire 2 item (PHQ- 2) [Reported][facility] CenterLlyyeerswz70-15-9644Gxqmzmx Health Questionnaire 2 item (PHQ- 2) [Reported][facility] CenterVbgmwgdeqa93-26-4087Kitxauo Health Questionnaire 2 item (PHQ- 2) [Reported][facility] CenterPtujehbeyl87-49-9125Nnobajm Health Questionnaire 2 item (PHQ- 2) [Reported][facility] CenterXbpljepkem83-36-1927Vzqnjvv Health Questionnaire 2 item (PHQ- 2) [Reported][facility] CenterInbhuyaxqj53-19-2847Jmgjros Health Questionnaire 2 item (PHQ- 2) [Reported][facility] CenterBdcplzzcph58-48-7126Cpkfs score [AUDIT-C]-1 01/18/2025 2:55 PM EDT Mychart, GenericNOMS Ezgigiayuv63-43-3974Cha often do you have a drink containing alcohol?Never 01/18/2025 2:55 PM EDT Mychart, Generic NeverNOMS Usmojrbrns85-59-6040Tfzxtkxbhh statusPatient declined 01/18/2025 2:55 PM EDT Mychart, Generic Patient declinedSSM Saint Mary's Health CenterWbmmcjdkut58-21-4797Kjy often do you have 6 or more drinks on 1 occasion?Never 01/18/2025 2:55 PM EDT Mychart, Generic NeverSSM Saint Mary's Health CenterGvixthueva26-93-6968Pzhypep Health Questionnaire 2 item (PHQ-2) [Reported][facility] Sndkpemxbo26-90-4782Vcy difficult have these problems made it for you to do your work, take care of things at home, or get along with other people?Somewhat difficult 01/01/2025 8:44 AM EDT Zandra Gil LPN Somewhat difficultSSM Saint Mary's Health CenterGdyeqxnnkz97-05-5768Fynvfaynfs statusPatient is Progressing Toward [facility] Work Phone: [phone] 380-38261923779-50-3412Jocskdbnmk statusDisability Status Patient is Progressing Toward [facility] Work Phone: [facility] Mental Status CyckFtuuqalqrlWknisnYktauibd77-66-9304Yimrwygjm functionCognitive Status Patient at [facility] Work Phone: Clinical Notes 10-31-2020 to 08-06-2025 Note Date & MquhRjjzUwpajlju49-03-1865 NoteCardiovascular Medicine [facility] SUBJECTIVE Chief Complaint Patient presents with Follow-up Patient is here today for a 2 month follow up appointment. Left shoulder replaced in March. Patient denies chest pain, SOB/VILLAGRAN, lightheaded/dizziness, palpitations/racing heart Congestive Heart Failure Hyperlipidemia NSTEMI Pulmonary Hypertension DVT lower extremity Atrial Fibrillation Hypertension Coronary Artery Disease Indio Collado is a 70 y.o. male being seen today for follow-up. PMHx: CAD, HTN, HFpEF, DVT, obesity s/p bariatric surgery, a.fib s/p ablation 10/25/2024 08/06/2025 He states he has been doing well from a cardiac standpoint. He has had about 7lb weight gain in the last 6 months. He is unsure of what medications he is taking. He notes he gets Eliquis from different people, but it doesn't sound like he has a consistent/reliable source. Will reach out to his PCP Dr. Velazquez to see if okay to start coumadin. His leg edema is doing well. Denies c/o CP, dyspnea, orthopnea, PND, dizziness/LH, palpitations, syncope. 01/31/2025 He is pending shoulder surgery by Dr. Willis at [facility]. He states he feels great. No complaints. Leg edema is stable. Denies c/o CP, dyspnea, orthopnea, PND, LE edema, dizziness/LH, palpitations, syncope. He has cut down on his jobs, now just working 2 jobs instead of 3. 11/29/2024 Since I last saw Mr. Collado, [...] fall along with phasing out working for [employer]. Denies c/o CP, dyspnea, orthopnea, PND, LE [...] work at 3 jobs. He works at [employer] and eats their food when he drinks. [...] gain. He admits to eating food at [employer] and drinking more pop that he typically does. He admits he needs to slow down with his jobs. He will likely quit [employer]. He notes that since his gastric bypass [...] elevation myocardial infarction (CMS/HCC) Acute renal failure Amnesia Arthritis Artificial knee joint present Atherosclerosis [...] General weakness Generalized osteoarthrosis Globus sensation Gout (more content not included)...[facility]09-22-2025 Evaluation note* Diagnosis Onset Date Resolution Status Admit Date Hemosiderin pigmentation of lower extrem ity due to varicose veins acuteSeptember 2024 2:39pmPeripheral vascular diseaseacuteSeptember 2024 2:39pmDiabetes mellituschronicSeptember 2024 2:39pmLymphedema of both lower extremitieschronicSeptember 2024 2:39pmVenous stasis of both lower extremitieschronicSeptember 2024 2:39pmVenous stasis ulcer of left lower extremityresolvedSeptember 2024 2:39pm [facility] Work Phone: [phone]) 706-638609-22-2025 NoteRadiology Sclerotherapy Sclerotherapy is a procedure that is done to make varicose veins and spider veins look better and it helps to relieve aching, swelling, cramping, and pain in the legs. Varicose veins are veins that have become enlarged, bulging, and twisted due to a damaged valve that causes blood to collect (pool)in the veins. Spider veins are small varicose veins. Sclerotherapy is usually done on the legs where varicose and spider veins occur most of the time. Sclerotherapy usually works best for smaller spider and varicose veins. This procedure involves putting a chemical directly into the lining of the vein, causing it to swell and stick together. Over time, the vessel turns into scar tissue that fades from view. You may need more than one treatment toclose a vein all the way. The number of veins treated in one session depends on the size and location of the veins, and on your overall medical condition. Tell a health care provider about: ? Any allergies you have. ? All medicines you are taking, including vitamins, herbs, eye drops, creams, and [id number] medicines. ? Any bleeding problems you have. ? Any surgeries you have had. ? Any medical conditions you have. ? Whether you are or may be . What are the risks? Your health care provider will talk with you about risks. These may include: ? Infection. ? Bleeding or blood clots. ? Allergic reactions to medicines or to the chemicals being used, which are called sclerosing agents. ? Larger treated veins becoming lumpy or hard. This may last for several months before getting better. ? Small sores (ulcers) forming at the injection site. ? Red streaking in the groin area or bruising around the injection site. ? Brown lines or spots at the injection site. These usually disappear within 3 to 6 months, but in rare cases they can be permanent. What happens before the procedure? Medicines Ask your health care provider about: ? Changing or stopping your regular medicines. These include any diabetes medicines or blood thinners you take. ? Taking medicines such as aspirin and ibuprofen. These medicines can thin your blood. Do not take them unless your health care provider tells you to. ? Taking hvhs-vxz-zwznnvt medicines, vitamins, herbs, and supplements. Tests ? You may have an ultrasound of the affected area to check for blood clots and to check blood flow. ? In rare cases, you may have an X-ray procedure to check how blood flows through your veins (angiogram). For an angiogram, a dye is injected to highlight your veins on X-rays. General instructions ? Do not use lotions or creams on your legs before the procedure unless your health care provider approves. ? Follow instructions from your health care provider about what you may eat and drink. ? Do not use any products that contain nicotine or tobacco before the procedure. These products include cigarettes, chewing tobacco, and vaping devices, such as e-cigarettes. If you need help quitting, ask your health care provider. ? Ask your health care provider what steps will be taken to help prevent infection. These steps mayinclude: ? Removing hair at the injection site. ? Washing skin with a soap that kills germs. What happens during the procedure? ? The treatment area will be cleaned. ? A small, thin needle is used to inject a chemical (sclerosant) into your varicose or spider veins. The sclerosant will irritate the lining of the vein and cause the vein to close below where the needle was put in. You may feel some stinging, burning, or irritation. ? The injection may be repeated for more than one varicose or spider vein. ? After the procedure, the area around where the needle was put in will be wrapped with elastic bandages. The procedure may vary among health care providers and hospitals. What can I expect after the procedure? ? Your blood pressure, heart rate, breathing rate, and blood oxygen level will be monitored until you leave the hospital or clinic. ? The area around the injection site will be wrapped with elastic bandages. If there is bleeding, the bandages may be changed. ? After the treatment, you will be able to drive yourself home. ? Wear compression stockings as told by your health care provider. These stockings help to prevent blood clots and reduce swelling in your legs. Contact a health care provider if: ? You have more redness, swelling, or pain around any injection sites. ? You have more fluid or blood coming from any injection sites. ? Any injection sites feel warm to the touch. ? You have pus or a bad smell coming from any injection sites. ? You have a fever. Get help right away if: ? You have leg pain that gets worse when you walk. ? You have redness or swelling in your leg that is getting worse. ? You have trouble breathing. ? You have chest pain. These symptoms may be an emergency. Get help right away. Call 911. (more content not included)...[facility] [id number] Telephone encounter Note* Telephone Encounter - JADE Porter - 07/12/2025 11:36 AM EDT OARRS reviewed, Rx [facility]'s pharmacy. [id number] Miscellaneous Notes* Telephone Encounter - JADE Porter - 07/12/2025 11:36 AM EDT OARRS reviewed, Rx sent into patient's pharmacy. * Telephone Encounter - Zandra Gil LPN - 07/12/2025 10:10 AM EDT States this should be the last time for this refill. He needs it for when they scrape his legs for the wound it is pretty painful. [facility] encounterSS[facility] [id number] Telephone encounter Note* Telephone Encounter - Zandra Gil LPN - 07/12/2025 10:10 AM EDT States this should be the last time for this refill. He needs it for when they scrape his legs for the wound it is pretty painful. [facility] [id number] NotePROCEDURE: US Injection Varicose Vein Multiple COMPARISON: None. HISTORY: Varicose veins of bilateral lower extremities with pain Pre-operative Diagnosis: CEAP class C6 venous insufficiency with pain, tenderness, edema and incompetent left great saphenous, saphenous tributaries and varicose vein(s), chronic venous insufficiency left leg secondary to venous incompetence Post-operative Diagnosis: CEAP class C6 venous insufficiency with pain, tenderness, edema and incompetent left great saphenous, saphenous tributaries and varicose vein(s), chronic venous insufficiency left leg secondary to venous incompetence Procedure Performed: 1. Ultrasound-guided microfoam chemical ablation with Varithenaregistered 2. Intraoperative ultrasound guidance Anesthesia: None Indications for Procedure: 70-year-old male . Symptoms including swelling and venous stasis ulcerations for many years despite conservative medical therapy including medical compression stockings, exercise and analgesics. Prior procedures include endovenous laser ablations and Microfoam chemical ablation. Multiple incompetent varicosities of the left leg. Duplex scan showed reflux and enlarged diameters up to 6 mm. The patient underwent informed consent including management options where the complications of infection, bleeding, pain, and skin injury were discussed. Particular attention was spent discussing thrombus extension and deep vein thrombosis as well as the possibility of pulmonary embolus and treatment with oral or injectable blood thinners. Procedure: The patient walked to the procedure room. All applicable staff donned appropriate apparel. A procedure timeout was performed to confirm correct patient, correct extremity, correct procedure, and correct room set-up including presence of all applicable supplies, devices, and drugs. A duplex ultrasound, performed by myself confirmed the location and incompetence of branch saphenous varicosities and their course was marked on the skin together with the dilated tributaries. The extent of treatment of the vein and the associated varicosities was determined through ultrasound mapping. The skin was prepped and then punctured with a butterfly needle and advanced under ultrasound guidance. The Varithenaregistered canister was activated and the canister was primed and purged as required in the instructions for use. Varithenaregistered was drawn into a sterile syringe. Following injections were made: 8 cc injected into a 6 mm vein left distal lower leg, patent great saphenous vein 7 cc injected into a 6 mm varicose vein left distal lower leg Varithenaregistered was slowly administered at 0.5-1.0 cc/second with close observation by ultrasound of its course in the vessels. Total volume utilized was: 15 cc. Following administration of Varithenaregistered the leg was elevated and the patient was asked to repeatedly dorsiflex the ankle to limit flow of Varithenaregistered into perforating veins. Once appropriate spasm had been confirmed in the treated veins, the vascular catheter was removed from the leg and light pressure was applied over the puncture site for hemostasis. The common femoral and deep superficial veins were then evaluated for flow and compressibility prior to dressing placement. The lower extremity was kept elevated at 45 degrees above the horizontal and cording material was applied over the saphenous segments and tributaries to allow for eccentric compression over the target vessels including the targeted saphenous vein(s). A multilayer dressing was applied consisting of foam pads, coban and thigh-high 20-30 mm Hg compression elastic support hose were placed on the patient. The leg was lowered only after compression had been applied and the patient was immediately ambulatory. The patient ambulated 10 minutes under supervision and was without apparent concerns at time of release. Post-care instructions include advising patient to keep post-treatment bandages in place and dry for 48 hours, avoid extended periods of inactivity, avoid heavy exercise for one week, wear compression stockings on the treated leg continuously for two weeks, to walk daily for 10 minutes over the next month. The patient was instructed to take an anti-inflammatory medicine as needed and to follow up for color duplex scan of the Saphenous veins, the treated branch saphenous varicosities, the adjacent deep veins, and additional treatment within 7 days. PERSONNEL: Arsh Craft RN Final Dictated by: Indio Kirk MD Dictated DT/TM: 07/09/25 10:53 Signed (Electronic Signature): Indio Kirk MD 07/09/25 10:55 a Technologist: [facility]09-15-2025 Progress note Author Shelly Mclaughlin [facility] HospitalNote Date/TimeSeptember 2024 2:38pm [place] [address] Wound Center Provider Note Signed Patient: Indio Collado MR#: [id number] : 1955 Acct:[id number] Age/Sex: 70 / M Copies to: Luis Velazquez II, MD Shelly Peterson Arnoldo, [employer]PERATIONS OFFICER~ HPI Date of Visit Date of Visit: Date of Service: 07/08/2025 Time of Service: 14:29 Narrative HPI: 06/11/2025-nIdio is a 70-year-old male [facility] venous stasis ulcer of the left lower lateral leg. Patient has longstanding history of PVD and venous ulcers. Patient states that the most recent ulcer opened in April 2025 and has not been healing. Upon exam, shallow full-thickness ulcers comprised primarily of yellow, adherent fibrinous slough. Patient states that the area is very tender. He did recently get placed on Bactrim by his primary care physician, I did encourage him to complete the entire course of Bactrim as prescribed. No acute signs or symptoms of infection are noted on exam-no periwound erythema, noincreased warmth, no purulence, no malodor, no induration. We will plan to initiate Vashe cleanse, honey gel for autolytic debridement, alginate, Unna bootfor compression, ABD and Coban. Indio willcome into our office twice weekly for nurse visits and I will see him back in 2 weeks. Healing of this ulcer willbe largely dependent on a nutritious diet with adequate protein, adequate diabetic control, controlling edema through elevation and compression, compliance with dressing changes, and prevention/treatment of infection should it arise. 06/25/2025-Indio presents to the office for follow-up evaluation and treatment of chronic venous stasis ulcer of the left lower lateral leg. Upon exam, patient reports increased burning and pain to theleft leg ulcer, with increased measurements noted since previous visit. Given the friable tissue, Gume feel like there is an infection to the ulcer. I did go ahead and obtain a tissue culture and send in linezolid based upon last culture results that were obtained, 600 mg P.O. BID x 10 days. No periwound erythema, no increased warmth,no purulence, no malodor noted. Patient also has previously hadvein work done through [facility], we did send over a referral today for further evaluation toensure no further intervention is needed. Indio will continue to come into the office twice weekly for nurse visits and I will see him back in 2-3 weeks. 07/08/2025- Indio presents to the office for follow-up evaluation and treatment of chronic venous ulcer of the lateral aspect of the left lower leg. Improvementis noted in both measurements and tissuequality as compared to previous visit. No acute signs or symptoms of infection are noted- no periwound erythema, no increased warmth, no purulence, no malodor, no induration. Culture obtained at previous visit was positive for Enterobacter cloacae and the patient was switched to course of Levofloxacin, which he has since completed. We will switch the treatment to Vashe cleanse, honey gel/collagenpowder, adaptic, ABD, conform, and SHU wraps. Patient is scheduled to see [facility] to see if th ere are any additional interventions that can be performed to assist with ulcer healing. Indio willcontinue to come into the office twice weekly for nurse visits and I will see him back in 2-3 weeks. Subjective Pain Left Lower Leg: Pain Intensity: 0 Wound/Ulcer History When did wound start?: 2 months ago Mode of Arrival/ Head Of Music: Personal vehicle Lives with:: Alone Appetite Description: Within Normal Limits Who helps w/ dressing change?: Self Smoking Status: Former smoker [facility] Medical History (Updated 06/11/25 @ 08:49 by Shelly Mclaughlin APRN) CHF (congestive heart failure) Diabetes mellitus ALTAGRACIA (obstructive sleep apnea) Myocardial infarction HLD (hyperlipidemia) DVT (deep venous thrombosis) COPD (chronic obstructive pulmonary disease) Arthritis FH: total knee replacement Diverticulitis Lymphedema CAD (coronary artery disease) HTN (hypertension) PVD (peripheral vascular disease) BPH (benign prostatic hyperplasia) Surgical History H/O gastric sleeve History of cholecystectomy H/O heart artery stent Family History Father Heart disease Mother Cancer Brother Cancer Sister Cancer Social History Smoking Status: Former smoker Tobacco Type: cigarettes Substance Use Type: None Grafts History of Graft History of Graft?: No Exam Physical Exam Vital Signs: Temp Pulse Resp BP O2 Del Method 98.4 F 58 L 18 173/82 H Room Air 07/08/25 14:15 07/08/25 14:15 07/08/25 14:15 07/08/25 14:15 07/08/25 14:15 Const General: cooperative, comfortable, no acute distress and well groomed Nutritional Appearance: average body habitus Orientation: alert, awake and oriented x3 Lower/Upper Extremity Exam Vascular Exam-Edema Left Lower Extremity: Edema Degree: 2+ Edema Type: Pitting Vascular Exam-Pulses Left Dorsalis Pedis: Pulse Assessment Method: Palpation Left Posterior Tibial: Pulse Assessment Method: Palpation Left Brachial: Pulse Assessment Method: NIBP Objective Meds/Allergies Home Medications acetaminophen 500 mg tablet 500 mg PO Q4H PRN Pain 30 days #100 tabs 09/29/22 [Rx Confirmed 06/11/25] apixaban 5 mg tablet (Eliquis) 5 mg PO BID 30 days #60 tabs 09/29/22 [Rx Confirmed 06/11/25] aspirin 81 mg chewable tablet (Children's Aspirin) 81 mg PO DAILY 30 days #30 tabs 09/29/22 [Rx Confirmed 06/11/25] atorvastatin 80 mg tablet 80 mg PO DAILY 30 days #30 tabs 09/29/22 [Rx Confirmed 06/11/25] carvedilol 12.5 mg tablet 12.5 mg PO BID 30 days #60 tabs 09/29/22 [Rx Confirmed 06/11/25] cholecalciferol (vitamin D3) 25 mcg (1,000 unit) tablet 50 mcg (2 x 25 mcg (1,000 unit)) PO DAILY 30 days #60 tabs 09/29/22 [Rx Confirmed 06/11/25] gabapentin 300 mg capsule 900 mg (3 x 300 mg) PO Q8HR 30 days #270 caps 09/29/22[Rx Confirmed 06/11/25] lanolin alcohols-mineral oil-w.petrolatum-ceresin topical cream (Minerin Creme topical) 1 applic topical BID #1 ea 09/29/22 [Rx Confirmed 06/11/25] omeprazole 20 mg capsule,delayed release 40 mg (2 x 20 mg) PO DAILY 30 days #60 caps 09/29/22 [Rx Confirmed 06/11/25] oxycodone 5 mg tablet 5 mg PO Q4H PRN Pain 7 days #20 tabs 09/29/22 [Rx Confirmed 06/11/25] potassium chloride 20 mEq tablet,extended release(part/cryst) (Klor-Con M) 20 meq PO DAILY 30 days #30 tabs 09/29/22 [Rx Confirmed 06/11/25] triamcinolone acetonide 0.1 % topical cream 1 applic topical BID 30 days #1 ea 09/29/22 [Rx Confirmed 07/08/25] zolpidem 10 mg tablet 10 mg PO QHS PRN Sleep 7 days #7 tabs 09/29/22 [Rx Confirmed 06/11/25] Allergies doxycycline Allergy (Verified 06/13/25 13:34) Itching Penicillins Allergy (Verified 06/13/25 13:34) Hives Wound/Ulcer Left Lower Leg: Type: Venous Stasis Ulcer Thickness: Full Bed Appearance: Beefy Red, Vidor and Yellow Percent of Wound Bed Granulated/Red: 95 Percent of Devitalized: 5 Length (cm): 2.5 Width (cm): 0.9 Depth (cm): 0.1 CM Sq: 2.250 Surrounding Tissue Appearance: Hyperpigmented Surrounding Tissue Temp: Warm Drainage Amount: Moderate Drainage Description: Serosanguineous Drainage Odor: No Odor Lidocaine Applied Topically: 2% Jelly Results Microbiology: Microbiology - Results from entire visit 06/25/25 14:39 Leg,Left - Ulcer Aerobic Culture - Final Enterobacter cloacae complex 06/25/25 14:39 Leg,Left - Ulcer Anaerobic Culture - Final No Anaerobes Isolated 3 Days 06/25/25 14:39 Leg,Left - Ulcer Gram Stain - Final Height: 5 ft 9 in Weight: 83.007 kg Body Mass Index: 27.0 Assessment/Plan Assessment/Plan (1) Venous stasis ulcer of left lower extremity: Code(s): I83.029 - Varicose veins of left lower extremity with ulcer of unspecified site (2) Venous stasis of both lower extremities: Code(s): I87.8 - Other specified disorders of veins (3) Hemosiderin pigmentation of lower extremity due to varicose veins: Code(s): L81.8 - Other specified disorders of pigmentation; I83.899 - Varicose veins of unspecified lower extremity with other complications (4) Lymphedema of both lower extremities: Code(s): I89.0 - Lymphedema, not elsewhere classified (5) Peripheral vascular disease: Code(s): I73.9 - Peripheral vascular disease, unspecified (6) Diabetes mellitus: Code(s): E11.9 - Type 2 diabetes mellitus without complications Plan See orders and HPI. Time spent with patient Time Spent With Patient (min): 12 Dictated By: Shelly Mclaughlin APRN DD/ 1429 Signed By: <Electronically signed by NAZANIN Mclaughlin> 07/08/25 1438 [facility] Work Phone: [phone] [address] Wound Center Provider Note Signed Patient: Indio Collado MR#: [id number] : 1955 Acct:[id number] Age/Sex: 70 / M Copies to: MD Shelly Yanez II, APRN~ HPI Date of Visit Date of Visit: Date of Service: 07/08/2025 Time of Service: 14:29 Narrative HPI: 06/11/2025-Indio is a 70-year-old male [facility] venous stasis ulcer of the left lower lateral leg. Patient has longstanding history of PVD and venous ulcers. Patient states that the most recent ulcer opened in April 2025 and has not been healing. Upon exam, shallow full-thickness ulcers comprised primarily of yellow, adherent fibrinous slough. Patient states that the area is very tender. He did recently get placed on Bactrim by his primary care physician, I did encourage him to complete the entire course of Bactrim as prescribed. No acute signs or symptoms of infection are noted on exam-no periwound erythema, noincreased warmth, no purulence, no malodor, no induration. We will plan to initiate Vashe cleanse, honey gel for autolytic debridement, alginate, Unna bootfor compression, ABD and Coban. Indio willcome into our office twice weekly for nurse visits and I will see him back in 2 weeks. Healing of this ulcer willbe largely dependent on a nutritious diet with adequate protein, adequate diabetic control, controlling edema through elevation and compression, compliance with dressing changes, and prevention/treatment of infection should it arise. 06/25/2025-Indio presents to the office for follow-up evaluation and treatment of chronic venous stasis ulcer of the left lower lateral leg. Upon exam, patient reports increased burning and pain to theleft leg ulcer, with increased measurements noted since previous visit. Given the friable tissue, Gume feel like there is an infection to the ulcer. I did go ahead and obtain a tissue culture and send in linezolid based upon last culture results that were obtained, 600 mg P.O. BID x 10 days. No periwound erythema, no increased warmth,no purulence, no malodor noted. Patient also has previously hadvein work done through [facility], we did send over a referral today for further evaluation toensure no further intervention is needed. Indio will continue to come into the office twice weekly for nurse visits and I will see him back in 2-3 weeks. 07/08/2025- Indio presents to the office for follow-up evaluation and treatment of chronic venous ulcer of the lateral aspect of the left lower leg. Improvementis noted in both measurements and tissuequality as compared to previous visit. No acute signs or symptoms of infection are noted- no periwound erythema, no increased warmth, no purulence, no malodor, no induration. Culture obtained at previous visit was positive for Enterobacter cloacae and the patient was switched to course of Levofloxacin, which he has since completed. We will switch the treatment to Vashe cleanse, honey gel/collagenpowder, adaptic, ABD, conform, and SHU wraps. Patient is scheduled to see [facility] to see if th ere are any additional interventions that can be performed to assist with ulcer healing. Indio willcontinue to come into the office twice weekly for nurse visits and I will see him back in 2-3 weeks. Subjective Pain Left Lower Leg: Pain Intensity: 0 Wound/Ulcer History When did wound start?: 2 months ago Mode of Arrival/ Head Of Music: Personal vehicle Lives with:: Alone Appetite Description: Within Normal Limits Who helps w/ dressing change?: Self Smoking Status: Former smoker [facility] Medical History (Updated 06/11/25 @ 08:49 by Shelly Mclaughlin APRN) CHF (congestive heart failure) Diabetes mellitus ALTAGRACIA (obstructive sleep apnea) Myocardial infarction HLD (hyperlipidemia) DVT (deep venous thrombosis) COPD (chronic obstructive pulmonary disease) Arthritis FH: total knee replacement Diverticulitis Lymphedema CAD (coronary artery disease) HTN (hypertension) PVD (peripheral vascular disease) BPH (benign prostatic hyperplasia) Surgical History H/O gastric sleeve History of cholecystectomy H/O heart artery stent Family History Father Heart disease Mother Cancer Brother Cancer Sister Cancer Social History Smoking Status: Former smoker Tobacco Type: cigarettes Substance Use Type: None Grafts History of Graft History of Graft?: No Exam Physical Exam Vital Signs: Temp Pulse Resp BP O2 Del Method 98.4 F 58 L 18 173/82 H Room Air 07/08/25 14:15 07/08/25 14:15 07/08/25 14:15 07/08/25 14:15 07/08/25 14:15 Const General: cooperative, comfortable, no acute distress and well groomed Nutritional Appearance: average body habitus Orientation: alert, awake and oriented x3 Lower/Upper Extremity Exam Vascular Exam-Edema Left Lower Extremity: Edema Degree: 2+ Edema Type: Pitting Vascular Exam-Pulses Left Dorsalis Pedis: Pulse Assessment Method: Palpation Left Posterior Tibial: Pulse Assessment Method: Palpation Left Brachial: Pulse Assessment Method: NIBP Objective Meds/Allergies Home Medications acetaminophen 500 mg tablet 500 mg PO Q4H PRN Pain 30 days #100 tabs 09/29/22 [Rx Confirmed 06/11/25] apixaban 5 mg tablet (Eliquis) 5 mg PO BID 30 days #60 tabs 09/29/22 [Rx Confirmed 06/11/25] aspirin 81 mg chewable tablet (Children's Aspirin) 81 mg PO DAILY 30 days #30 tabs 09/29/22 [Rx Confirmed 06/11/25] atorvastatin 80 mg tablet 80 mg PO DAILY 30 days #30 tabs 09/29/22 [Rx Confirmed 06/11/25] carvedilol 12.5 mg tablet 12.5 mg PO BID 30 days #60 tabs 09/29/22 [Rx Confirmed 06/11/25] cholecalciferol (vitamin D3) 25 mcg (1,000 unit) tablet 50 mcg (2 x 25 mcg (1,000 unit)) PO DAILY 30 days #60 tabs 09/29/22 [Rx Confirmed 06/11/25] gabapentin 300 mg capsule 900 mg (3 x 300 mg) PO Q8HR 30 days #270 caps 09/29/22[Rx Confirmed 06/11/25] lanolin alcohols-mineral oil-w.petrolatum-ceresin topical cream (Minerin Creme topical) 1 applic topical BID #1 ea 09/29/22 [Rx Confirmed 06/11/25] omeprazole 20 mg capsule,delayed release 40 mg (2 x 20 mg) PO DAILY 30 days #60 caps 09/29/22 [Rx Confirmed 06/11/25] oxycodone 5 mg tablet 5 mg PO Q4H PRN Pain 7 days #20 tabs 09/29/22 [Rx Confirmed 06/11/25] potassium chloride 20 mEq tablet,extended release(part/cryst) (Klor-Con M) 20 meq PO DAILY 30 days #30 tabs 09/29/22 [Rx Confirmed 06/11/25] triamcinolone acetonide 0.1 % topical cream 1 applic topical BID 30 days #1 ea 09/29/22 [Rx Confirmed 07/08/25] zolpidem 10 mg tablet 10 mg PO QHS PRN Sleep 7 days #7 tabs 09/29/22 [Rx Confirmed 06/11/25] Allergies doxycycline Allergy (Verified 06/13/25 13:34) Itching Penicillins Allergy (Verified 06/13/25 13:34) Hives Wound/Ulcer Left Lower Leg: Type: Venous Stasis Ulcer Thickness: Full Bed Appearance: Beefy Red, Vidor and Yellow Percent of Wound Bed Granulated/Red: 95 Percent of Devitalized: 5 Length (cm): 2.5 Width (cm): 0.9 Depth (cm): 0.1 CM Sq: 2.250 Surrounding Tissue Appearance: Hyperpigmented Surrounding Tissue Temp: Warm Drainage Amount: Moderate Drainage Description: Serosanguineous Drainage Odor: No Odor Lidocaine Applied Topically: 2% Jelly Results Microbiology: Microbiology - Results from entire visit 06/25/25 14:39 Leg,Left - Ulcer Aerobic Culture - Final Enterobacter cloacae complex 06/25/25 14:39 Leg,Left - Ulcer Anaerobic Culture - Final No Anaerobes Isolated 3 Days 06/25/25 14:39 Leg,Left - Ulcer Gram Stain - Final Height: 5 ft 9 in Weight: 83.007 kg Body Mass Index: 27.0 Assessment/Plan Assessment/Plan (1) Venous stasis ulcer of left lower extremity: Code(s): I83.029 - Varicose veins of left lower extremity with ulcer of unspecified site (2) Venous stasis of both lower extremities: Code(s): I87.8 - Other specified disorders of veins (3) Hemosiderin pigmentation of lower extremity due to varicose veins: Code(s): L81.8 - Other specified disorders of pigmentation; I83.899 - Varicose veins of unspecified lower extremity with other complications (4) Lymphedema of both lower extremities: Code(s): I89.0 - Lymphedema, not elsewhere classified (5) Peripheral vascular disease: Code(s): I73.9 - Peripheral vascular disease, unspecified (6) Diabetes mellitus: Code(s): E11.9 - Type 2 diabetes mellitus without complications Plan See orders and HPI. Time spent with patient Time Spent With Patient (min): 12 Dictated By: Shelly Mclaughlin APRN DD/ 1429 Signed By: 07/08/25 1438 [facility]09-10-2025 Telephone encounter Note* Telephone Encounter - JADE Porter - 07/03/2025 11:03 AM EDT OARRS reviewed, Rx [facility]'s pharmacy[id number] Miscellaneous Notes* Telephone Encounter - JADE Porter - 07/03/2025 11:03 AM EDT OARRS reviewed, Rx sent into patient's pharmacy. documented in this encounterSS[facility] [id number] Progress note Author Shelly Mclaughlin [facility] HospitalNote Date/TimeSeptember 2024 2:54pm [place] [address] Wound Center Provider Note Signed Patient: Indio Collado MR#: [id number] : 1955 Acct:[id number] Age/Sex: 70 / M Copies to: Luis Velazquez II, MD Shelly Peterson Arnoldo, [employer] OFFICER~ HPI Date of Visit Date of Visit: Date of Service: 06/25/2025 Time of Service: 14:50 Narrative HPI: 06/11/2025-Indio is a 70-year-old male [facility] venous stasis ulcer of the left lower lateral leg. Patient has longstanding history of PVD and venous ulcers. Patient states that the most recent ulcer opened in April 2025 and has not been healing. Upon exam, shallow full-thickness ulcers comprised primarily of yellow, adherent fibrinous slough. Patient states that the area is very tender. He did recently get placed on Bactrim by his primary care physician, I did encourage him to complete the entire course of Bactrim as prescribed. No acute signs or symptoms of infection are noted on exam-no periwound erythema, noincreased warmth, no purulence, no malodor, no induration. We will plan to initiate Vashe cleanse, honey gel for autolytic debridement, alginate, Unna bootfor compression, ABD and Coban. Indio willcome into our office twice weekly for nurse visits and I will see him back in 2 weeks. Healing of this ulcer willbe largely dependent on a nutritious diet with adequate protein, adequate diabetic control, controlling edema through elevation and compression, compliance with dressing changes, and prevention/treatment of infection should it arise. 06/25/2025-Indio presents to the office for follow-up evaluation and treatment of chronic venous stasis ulcer of the left lower lateral leg. Upon exam, patient reports increased burning and pain to theleft leg ulcer, with increased measurements noted since previous visit. Given the friable tissue, Gume feel like there is an infection to the ulcer. I did go ahead and obtain a tissue culture and send in linezolid based upon last culture results that were obtained, 600 mg P.O. BID x 10 days. No periwound erythema, no increased warmth,no purulence, no malodor noted. Patient also has previously hadvein work done through [facility], we did send over a referral today for further evaluation toensure no further intervention is needed. Indio will continue to come into the office twice weekly for nurse visits and I will see him back in 2-3 weeks. Subjective Pain Left Lower Leg: Pain Description: Burning Pain Intensity: 0 Wound/Ulcer History When did wound start?: 2 months ago Mode of Arrival/ Head Of Music: Personal vehicle Lives with:: Alone Appetite Description: Within Normal Limits Who helps w/ dressing change?: Self Smoking Status: Former smoker [facility] Medical History (Updated 06/11/25 @ 08:49 by Shelly Mclaughlin APRN) CHF (congestive heart failure) Diabetes mellitus ALTAGRACIA (obstructive sleep apnea) Myocardial infarction HLD (hyperlipidemia) DVT (deep venous thrombosis) COPD (chronic obstructive pulmonary disease) Arthritis FH: total knee replacement Diverticulitis Lymphedema CAD (coronary artery disease) HTN (hypertension) PVD (peripheral vascular disease) BPH (benign prostatic hyperplasia) Surgical History H/O gastric sleeve History of cholecystectomy H/O heart artery stent Family History Father Heart disease Mother Cancer Brother Cancer Sister Cancer Social History Smoking Status: Former smoker Tobacco Type: cigarettes Substance Use Type: None Grafts History of Graft History of Graft?: No Exam Physical Exam Vital Signs: Temp Pulse Resp BP O2 Del Method 98.7 F 49 L 20 159/83 H Room Air 06/25/25 14:34 06/25/25 14:34 06/25/25 14:34 06/25/25 14:34 06/25/25 14:34 Const General: cooperative, comfortable, no acute distress and well groomed Nutritional Appearance: average body habitus Orientation: alert, awake and oriented x3 Lower/Upper Extremity Exam Vascular Exam-Edema Left Lower Extremity: Edema Degree: 1+ Edema Type: Pitting Vascular Exam-Pulses Left Dorsalis Pedis: Pulse Assessment Method: Palpation Left Posterior Tibial: Pulse Assessment Method: Palpation Left Brachial: Pulse Assessment Method: NIBP Left Radial: Pulse Assessment Method: Palpation Objective Meds/Allergies Home Medications acetaminophen 500 mg tablet 500 mg PO Q4H PRN Pain 30 days #100 tabs 09/29/22 [Rx Confirmed 06/11/25] apixaban 5 mg tablet (Eliquis) 5 mg PO BID 30 days #60 tabs 09/29/22 [Rx Confirmed 06/11/25] aspirin 81 mg chewable tablet (Children's Aspirin) 81 mg PO DAILY 30 days #30 tabs 09/29/22 [Rx Confirmed 06/11/25] atorvastatin 80 mg tablet 80 mg PO DAILY 30 days #30 tabs 09/29/22 [Rx Confirmed 06/11/25] carvedilol 12.5 mg tablet 12.5 mg PO BID 30 days #60 tabs 09/29/22 [Rx Confirmed 06/11/25] cholecalciferol (vitamin D3) 25 mcg (1,000 unit) tablet 50 mcg (2 x 25 mcg (1,000 unit)) PO DAILY 30 days #60 tabs 09/29/22 [Rx Confirmed 06/11/25] gabapentin 300 mg capsule 900 mg (3 x 300 mg) PO Q8HR 30 days #270 caps 09/29/22[Rx Confirmed 06/11/25] lanolin alcohols-mineral oil-w.petrolatum-ceresin topical cream (Minerin Creme topical) 1 applic topical BID #1 ea 09/29/22 [Rx Confirmed 06/11/25] nystatin 100,000 unit/gram topical powder (Nystop) 1 applic topical BID 14 days #1 ea 09/29/22 [Rx Confirmed 10/05/22] omeprazole 20 mg capsule,delayed release 40 mg (2 x 20 mg) PO DAILY 30 days #60 caps 09/29/22 [Rx Confirmed 06/11/25] oxycodone 5 mg tablet 5 mg PO Q4H PRN Pain 7 days #20 tabs 09/29/22 [Rx Confirmed 06/11/25] potassium chloride 20 mEq tablet,extended release(part/cryst) (Klor-Con M) 20 meq PO DAILY 30 days #30 tabs 09/29/22 [Rx Confirmed 06/11/25] triamcinolone acetonide 0.1 % topical cream 1 applic topical BID 30 days #1 ea 09/29/22 [Rx Confirmed 10/05/22] zolpidem 10 mg tablet 10 mg PO QHS PRN Sleep 7 days #7 tabs 09/29/22 [Rx Confirmed 06/11/25] linezolid 600 mg tablet 600 mg PO BID 10 days #20 tabs 06/25/25 [Rx] Allergies doxycycline Allergy (Verified 06/13/25 13:34) Itching Penicillins Allergy (Verified 06/13/25 13:34) Hives Wound/Ulcer Left Lower Leg: Type: Venous Stasis Ulcer Thickness: Full Bed Appearance: Beefy Red, Vidor and Yellow Percent of Wound Bed Granulated/Red: 70 Percent of Devitalized: 30 Length (cm): 2.8 Width (cm): 1.3 Depth (cm): 0.1 CM Sq: 3.640 Surrounding Tissue Appearance: Hyperpigmented Surrounding Tissue Temp: Warm Drainage Amount: Moderate Drainage Description: Bloody Drainage Odor: No Odor Lidocaine Applied Topically: 2% Jelly Procedures Time Out: 2 Patient Identifiers, Correct Patient, Correct Side/Site, Correct Procedure and Safety Issues Reviewed Procedure: 2% lidocaine was applied to the left lower lateral leg ulcer. Once the ulcer was anesthetized, a curette was utilized to obtain a tissue culture. Patient tolerated the procedure well and without pain. This was not a debridement. Results Height: 5 ft 9 in Weight: 83.007 kg Body Mass Index: 27.0 Assessment/Plan Assessment/Plan (1) Venous stasis ulcer of left lower extremity: Code(s): I83.029 - Varicose veins of left lower extremity with ulcer of unspecified site (2) Venous stasis of both lower extremities: Code(s): I87.8 - Other specified disorders of veins (3) Hemosiderin pigmentation of lower extremity due to varicose veins: Code(s): L81.8 - Other specified disorders of pigmentation; I83.899 - Varicose veins of unspecified lower extremity with other complications (4) Lymphedema of both lower extremities: Code(s): I89.0 - Lymphedema, not elsewhere classified (5) Peripheral vascular disease: Code(s): I73.9 - Peripheral vascular disease, unspecified (6) Diabetes mellitus: Code(s): E11.9 - Type 2 diabetes mellitus without complications Plan See orders and HPI. Time spent with patient Time Spent With Patient (min): 12 Dictated By: Shelly Mclaughlin APRN DD/ 49 Signed By: <Electronically signed by NAZANIN Mclaughlin> 06/25/25 1456 [facility] Work Phone: [phone] 449-942309-02-2025 [place] [address] Wound Center Provider Note Signed Patient: Indio Collado MR#: [id number] : 1955 Acct:[id number] Age/Sex: 70 / M Copies to: MD Shelly Yanez II, APRN~ HPI Date of Visit Date of Visit: Date of Service: 06/25/2025 Time of Service: 14:50 Narrative HPI: 06/11/2025-Indio is a 70-year-old male who [facility] venous stasis ulcer of the left lower lateral leg. Patient has longstanding history of PVD and venous ulcers. Patient states that the most recent ulcer opened in April 2025 and has not been healing. Upon exam, shallow full-thickness ulcers comprised primarily of yellow, adherent fibrinous slough. Patient states that the area is very tender. He did recently get placed on Bactrim by his primary care physician, I did encourage him to complete the entire course of Bactrim as prescribed. No acute signs or symptoms of infection are noted on exam-no periwound erythema, noincreased warmth, no purulence, no malodor, no induration. We will plan to initiate Vashe cleanse, honey gel for autolytic debridement, alginate, Unna bootfor compression, ABD and Coban. Indio willcome into our office twice weekly for nurse visits and I will see him back in 2 weeks. Healing of this ulcer willbe largely dependent on a nutritious diet with adequate protein, adequate diabetic control, controlling edema through elevation and compression, compliance with dressing changes, and prevention/treatment of infection should it arise. 06/25/2025-Indio presents to the office for follow-up evaluation and treatment of chronic venous stasis ulcer of the left lower lateral leg. Upon exam, patient reports increased burning and pain to theleft leg ulcer, with increased measurements noted since previous visit. Given the friable tissue, Gume feel like there is an infection to the ulcer. I did go ahead and obtain a tissue culture and send in linezolid based upon last culture results that were obtained, 600 mg P.O. BID x 10 days. No periwound erythema, no increased warmth,no purulence, no malodor noted. Patient also has previously hadvein work done through [facility], we did send over a referral today for further evaluation toensure no further intervention is needed. Indio will continue to come into the office twice weekly for nurse visits and I will see him back in 2-3 weeks. Subjective Pain Left Lower Leg: Pain Description: Burning Pain Intensity: 0 Wound/Ulcer History When did wound start?: 2 months ago Mode of Arrival/ Head Of Music: Personal vehicle Lives with:: Alone Appetite Description: Within Normal Limits Who helps w/ dressing change?: Self Smoking Status: Former smoker [facility] Medical History (Updated 06/11/25 @ 08:49 by Shelly Mclaughlin APRN) CHF (congestive heart failure) Diabetes mellitus ALTAGRACIA (obstructive sleep apnea) Myocardial infarction HLD (hyperlipidemia) DVT (deep venous thrombosis) COPD (chronic obstructive pulmonary disease) Arthritis FH: total knee replacement Diverticulitis Lymphedema CAD (coronary artery disease) HTN (hypertension) PVD (peripheral vascular disease) BPH (benign prostatic hyperplasia) Surgical History H/O gastric sleeve History of cholecystectomy H/O heart artery stent Family History Father Heart disease Mother Cancer Brother Cancer Sister Cancer Social History Smoking Status: Former smoker Tobacco Type: cigarettes Substance Use Type: None Grafts History of Graft History of Graft?: No Exam Physical Exam Vital Signs: Temp Pulse Resp BP O2 Del Method 98.7 F 49 L 20 159/83 H Room Air 06/25/25 14:34 06/25/25 14:34 06/25/25 14:34 06/25/25 14:34 06/25/25 14:34 Const General: cooperative, comfortable, no acute distress and well groomed Nutritional Appearance: average body habitus Orientation: alert, awake and oriented x3 Lower/Upper Extremity Exam Vascular Exam-Edema Left Lower Extremity: Edema Degree: 1+ Edema Type: Pitting Vascular Exam-Pulses Left Dorsalis Pedis: Pulse Assessment Method: Palpation Left Posterior Tibial: Pulse Assessment Method: Palpation Left Brachial: Pulse Assessment Method: NIBP Left Radial: Pulse Assessment Method: Palpation Objective Meds/Allergies Home Medications acetaminophen 500 mg tablet 500 mg PO Q4H PRN Pain 30 days #100 tabs 09/29/22 [Rx Confirmed 06/11/25] apixaban 5 mg tablet (Eliquis) 5 mg PO BID 30 days #60 tabs 09/29/22 [Rx Confirmed 06/11/25] aspirin 81 mg chewable tablet (Children's Aspirin) 81 mg PO DAILY 30 days #30 tabs 09/29/22 [Rx Confirmed 06/11/25] atorvastatin 80 mg tablet 80 mg PO DAILY 30 days #30 tabs 09/29/22 [Rx Confirmed 06/11/25] carvedilol 12.5 mg tablet 12.5 mg PO BID 30 days #60 tabs 09/29/22 [Rx Confirmed 06/11/25] cholecalciferol (vitamin D3) 25 mcg (1,000 unit) tablet 50 mcg (2 x 25 mcg (1,000 unit)) PO DAILY 30 days #60 tabs 09/29/22 [Rx Confirmed 06/11/25] gabapentin 300 mg capsule 900 mg (3 x 300 mg) PO Q8HR 30 days #270 caps 09/29/22[Rx Confirmed 06/11/25] lanolin alcohols-mineral oil-w.petrolatum-ceresin topical cream (Minerin Creme topical) 1 applic topical BID #1 ea 09/29/22 [Rx Confirmed 06/11/25] nystatin 100,000 unit/gram topical powder (Nystop) 1 applic topical BID 14 days #1 ea 09/29/22 [Rx Confirmed 10/05/22] omeprazole 20 mg capsule,delayed release 40 mg (2 x 20 mg) PO DAILY 30 days #60 caps 09/29/22 [Rx Confirmed 06/11/25] oxycodone 5 mg tablet 5 mg PO Q4H PRN Pain 7 days #20 tabs 09/29/22 [Rx Confirmed 06/11/25] potassium chloride 20 mEq tablet,extended release(part/cryst) (Klor-Con M) 20 meq PO DAILY 30 days #30 tabs 09/29/22 [Rx Confirmed 06/11/25] triamcinolone acetonide 0.1 % topical cream 1 applic topical BID 30 days #1 ea 09/29/22 [Rx Confirmed 10/05/22] zolpidem 10 mg tablet 10 mg PO QHS PRN Sleep 7 days #7 tabs 09/29/22 [Rx Confirmed 06/11/25] linezolid 600 mg tablet 600 mg PO BID 10 days #20 tabs 06/25/25 [Rx] Allergies doxycycline Allergy (Verified 06/13/25 13:34) Itching Penicillins Allergy (Verified 06/13/25 13:34) Hives Wound/Ulcer Left Lower Leg: Type: Venous Stasis Ulcer Thickness: Full Bed Appearance: Beefy Red, Vidor and Yellow Percent of Wound Bed Granulated/Red: 70 Percent of Devitalized: 30 Length (cm): 2.8 Width (cm): 1.3 Depth (cm): 0.1 CM Sq: 3.640 Surrounding Tissue Appearance: Hyperpigmented Surrounding Tissue Temp: Warm Drainage Amount: Moderate Drainage Description: Bloody Drainage Odor: No Odor Lidocaine Applied Topically: 2% Jelly Procedures Time Out: 2 Patient Identifiers, Correct Patient, Correct Side/Site, Correct Procedure and Safety Issues Reviewed Procedure: 2% lidocaine was applied to the left lower lateral leg ulcer. Once the ulcer was anesthetized, a curette was utilized to obtain a tissue culture. Patient tolerated the procedure well and without pain. This was not a debridement. Results Height: 5 ft 9 in Weight: 83.007 kg Body Mass Index: 27.0 Assessment/Plan Assessment/Plan (1) Venous stasis ulcer of left lower extremity: Code(s): I83.029 - Varicose veins of left lower extremity with ulcer of unspecified site (2) Venous stasis of both lower extremities: Code(s): I87.8 - Other specified disorders of veins (3) Hemosiderin pigmentation of lower extremity due to varicose veins: Code(s): L81.8 - Other specified disorders of pigmentation; I83.899 - Varicose veins of unspecified lower extremity with other complications (4) Lymphedema of both lower extremities: Code(s): I89.0 - Lymphedema, not elsewhere classified (5) Peripheral vascular disease: Code(s): I73.9 - Peripheral vascular disease, unspecified (6) Diabetes mellitus: Code(s): E11.9 - Type 2 diabetes mellitus without complications Plan See orders and HPI. Time spent with patient Time Spent With Patient (min): 12 Dictated By: Shelly Mclaughlin APRN DD/ 1450 Signed By: 06/25/25 1454 [facility]08-19-2025 Progress note Author Shelly Mclaughlin [facility]Note Date/TimeAugust 2024 8:54[place] [address] Wound Center Provider Note Signed Patient: Idnio Collado MR#: [id number] : 1955 Acct:[id number] Age/Sex: 70 / M Copies to: MD Shelly Yanez II, APRN~ HPI Date of Visit Date of Visit: Date of Service: 06/11/2025 Time of Service: 08:47 Narrative HPI: 06/11/2025-Indio is a 70-year-old male who [facility] venous stasis ulcer of the left lower lateral leg. Patient has longstanding history of PVD and venous ulcers. Patient states that the most recent ulcer opened in April 2025 and has not been healing. Upon exam, shallow full-thickness ulcers comprised primarily of yellow, adherent fibrinous slough. Patient states that the area is very tender. He did recently get placed on Bactrim by his primary care physician, I did encourage him to complete the entire course of Bactrim as prescribed. No acute signs or symptoms of infection are noted on exam-no periwound erythema, noincreased warmth, no purulence, no malodor, no induration. We will plan to initiate Vashe cleanse, honey gel for autolytic debridement, alginate, Unna bootfor compression, ABD and Coban. Indio willcome into our office twice weekly for nurse visits and I will see him back in 2 weeks. Healing of this ulcer willbe largely dependent on a nutritious diet with adequate protein, adequate diabetic control, controlling edema through elevation and compression, compliance with dressing changes, and prevention/treatment of infection should it arise. Subjective Pain Left Lower Leg: Pain Intensity: 8 Wound/Ulcer History When did wound start?: 2 months ago Mode of Arrival/ Head Of Music: Personal vehicle Lives with:: Alone Appetite Description: Within Normal Limits Who helps w/ dressing change?: Self Smoking Status: Former smoker [facility] Medical History (Updated 06/11/25 @ 08:49 by Shelly Mclaughlin APRN) CHF (congestive heart failure) Diabetes mellitus ALTAGRACIA (obstructive sleep apnea) Myocardial infarction HLD (hyperlipidemia) DVT (deep venous thrombosis) COPD (chronic obstructive pulmonary disease) Arthritis FH: total knee replacement Diverticulitis Lymphedema CAD (coronary artery disease) HTN (hypertension) PVD (peripheral vascular disease) BPH (benign prostatic hyperplasia) Surgical History H/O gastric sleeve History of cholecystectomy H/O heart artery stent Family History Father Heart disease Mother Cancer Brother Cancer Sister Cancer Social History Smoking Status: Former smoker Tobacco Type: cigarettes Substance Use Type: None Grafts History of Graft History of Graft?: No Exam Physical Exam Vital Signs: Temp Pulse Resp BP O2 Del Method 97.6 F 52 L 18 176/93 H Room Air 06/11/25 08:32 06/11/25 08:32 06/11/25 08:32 06/11/25 08:32 06/11/25 08:32 Const General: cooperative, comfortable, no acute distress and well groomed Nutritional Appearance: average body habitus Orientation: alert, awake and oriented x3 Lower/Upper Extremity Exam Vascular Exam-Edema Left Lower Extremity: Edema Degree: 2+ Edema Type: Pitting Vascular Exam-Pulses Right Brachial: Pulse Assessment Method: NIBP Left Dorsalis Pedis: Pulse Assessment Method: Palpation Left Posterior Tibial: Pulse Assessment Method: Palpation Objective Meds/Allergies Home Medications acetaminophen 500 mg tablet 500 mg PO Q4H PRN Pain 30 days #100 tabs 09/29/22 [Rx Confirmed 06/11/25] apixaban 5 mg tablet (Eliquis) 5 mg PO BID 30 days #60 tabs 09/29/22 [Rx Confirmed 06/11/25] aspirin 81 mg chewable tablet (Children's Aspirin) 81 mg PO DAILY 30 days #30 tabs 09/29/22 [Rx Confirmed 06/11/25] atorvastatin 80 mg tablet 80 mg PO DAILY 30 days #30 tabs 09/29/22 [Rx Confirmed 06/11/25] carvedilol 12.5 mg tablet 12.5 mg PO BID 30 days #60 tabs 09/29/22 [Rx Confirmed 06/11/25] cholecalciferol (vitamin D3) 25 mcg (1,000 unit) tablet 50 mcg (2 x 25 mcg (1,000 unit)) PO DAILY 30 days #60 tabs 09/29/22 [Rx Confirmed 06/11/25] cyclobenzaprine 5 mg tablet 5 mg PO TID PRN Spasms 30 days #21 tabs 09/29/22 [Rx Confirmed 06/11/25] fluoxetine 20 mg capsule 20 mg PO DAILY 30 days #30 caps 09/29/22 [Rx Confirmed 06/11/25] gabapentin 300 mg capsule 900 mg (3 x 300 mg) PO Q8HR 30 days #270 caps 09/29/22[Rx Confirmed 06/11/25] lanolin alcohols-mineral oil-w.petrolatum-ceresin topical cream (Minerin Creme topical) 1 applic topical BID #1 ea 09/29/22 [Rx Confirmed 06/11/25] nystatin 100,000 unit/gram topical powder (Nystop) 1 applic topical BID 14 days #1 ea 09/29/22 [Rx Confirmed 10/05/22] omeprazole 20 mg capsule,delayed release 40 mg (2 x 20 mg) PO DAILY 30 days #60 caps 09/29/22 [Rx Confirmed 06/11/25] oxycodone 5 mg tablet 5 mg PO Q4H PRN Pain 7 days #20 tabs 09/29/22 [Rx Confirmed 06/11/25] potassium chloride 20 mEq tablet,extended release(part/cryst) (Klor-Con M) 20 meq PO DAILY 30 days #30 tabs 09/29/22 [Rx Confirmed 06/11/25] sulfamethoxazole 800 mg-trimethoprim 160 mg tablet 1 tab PO BID 4 days #9 tabs 09/29/22 [Rx Confirmed 06/11/25] triamcinolone acetonide 0.1 % topical cream 1 applic topical BID 30 days #1 ea 09/29/22 [Rx Confirmed 10/05/22] zolpidem 10 mg tablet 10 mg PO QHS PRN Sleep 7 days #7 tabs 09/29/22 [Rx Confirmed 06/11/25] Allergies doxycycline Allergy (Verified 07/30/20 10:11) Itching Penicillins Allergy (Verified 07/30/20 10:11) Hives Wound/Ulcer Left Lower Leg: Type: Venous Stasis Ulcer Thickness: Full Bed Appearance: Vidor and Yellow Percent of Wound Bed Granulated/Red: 5 Percent of Devitalized: 95 Length (cm): 2.3 Width (cm): 1.2 Depth (cm): 0.2 CM Sq: 2.760 Surrounding Tissue Appearance: Hyperpigmented Surrounding Tissue Temp: Warm Drainage Amount: Moderate Drainage Description: Purulent Drainage Odor: No Odor Lidocaine Applied Topically: 2% Jelly Results Height: 5 ft 9 in Weight: 83.007 kg Body Mass Index: 27.0 Assessment/Plan Assessment/Plan (1) Venous stasis ulcer of left lower extremity: Code(s): I83.029 - Varicose veins of left lower extremity with ulcer of unspecified site (2) Venous stasis of both lower extremities: Code(s): I87.8 - Other specified disorders of veins (3) Hemosiderin pigmentation of lower extremity due to varicose veins: Code(s): L81.8 - Other specified disorders of pigmentation; I83.899 - Varicose veins of unspecified lower extremity with other complications (4) Lymphedema of both lower extremities: Code(s): I89.0 - Lymphedema, not elsewhere classified (5) Peripheral vascular disease: Code(s): I73.9 - Peripheral vascular disease, unspecified (6) Diabetes mellitus: Code(s): E11.9 - Type 2 diabetes mellitus without complications Plan See orders and HPI. Time spent with patient Time Spent With Patient (min): 20 Dictated By: Shelly Mclaughlin APRN DD/ 6 Signed By: <Electronically signed by NAZANIN Mclaughlin> 06/11/25 0854 [facility] Work Phone: [phone] 338-420908-19-2025 [place] [address] Wound Center Provider Note Signed Patient: Indio Collado MR#: [id number] : 1955 Acct:[id number] Age/Sex: 70 / M Copies to: MD Shelly Yanez II, APRN~ HPI Date of Visit Date of Visit: Date of Service: 06/11/2025 Time of Service: 08:47 Narrative HPI: 06/11/2025-Indio is a 70-year-old male [facility] stasis ulcer of the left lower lateral leg. Patient has longstanding history of PVD and venous ulcers. Patient states that the most recent ulcer opened in April 2025 and has not been healing. Upon exam, shallow full-thickness ulcers comprised primarily of yellow, adherent fibrinous slough. Patient states that the area is very tender. He did recently get placed on Bactrim by his primary care physician, I did encourage him to complete the entire course of Bactrim as prescribed. No acute signs or symptoms of infection are noted on exam-no periwound erythema, noincreased warmth, no purulence, no malodor, no induration. We will plan to initiate Vashe cleanse, honey gel for autolytic debridement, alginate, Unna bootfor compression, ABD and Coban. Indio willcome into our office twice weekly for nurse visits and I will see him back in 2 weeks. Healing of this ulcer willbe largely dependent on a nutritious diet with adequate protein, adequate diabetic control, controlling edema through elevation and compression, compliance with dressing changes, and prevention/treatment of infection should it arise. Subjective Pain Left Lower Leg: Pain Intensity: 8 Wound/Ulcer History When did wound start?: 2 months ago Mode of Arrival/ Head Of Music: Personal vehicle Lives with:: Alone Appetite Description: Within Normal Limits Who helps w/ dressing change?: Self Smoking Status: Former smoker [facility] Medical History (Updated 06/11/25 @ 08:49 by Shelly Mclaughlin APRN) CHF (congestive heart failure) Diabetes mellitus ALTAGRACIA (obstructive sleep apnea) Myocardial infarction HLD (hyperlipidemia) DVT (deep venous thrombosis) COPD (chronic obstructive pulmonary disease) Arthritis FH: total knee replacement Diverticulitis Lymphedema CAD (coronary artery disease) HTN (hypertension) PVD (peripheral vascular disease) BPH (benign prostatic hyperplasia) Surgical History H/O gastric sleeve History of cholecystectomy H/O heart artery stent Family History Father Heart disease Mother Cancer Brother Cancer Sister Cancer Social History Smoking Status: Former smoker Tobacco Type: cigarettes Substance Use Type: None Grafts History of Graft History of Graft?: No Exam Physical Exam Vital Signs: Temp Pulse Resp BP O2 Del Method 97.6 F 52 L 18 176/93 H Room Air 06/11/25 08:32 06/11/25 08:32 06/11/25 08:32 06/11/25 08:32 06/11/25 08:32 Const General: cooperative, comfortable, no acute distress and well groomed Nutritional Appearance: average body habitus Orientation: alert, awake and oriented x3 Lower/Upper Extremity Exam Vascular Exam-Edema Left Lower Extremity: Edema Degree: 2+ Edema Type: Pitting Vascular Exam-Pulses Right Brachial: Pulse Assessment Method: NIBP Left Dorsalis Pedis: Pulse Assessment Method: Palpation Left Posterior Tibial: Pulse Assessment Method: Palpation Objective Meds/Allergies Home Medications acetaminophen 500 mg tablet 500 mg PO Q4H PRN Pain 30 days #100 tabs 09/29/22 [Rx Confirmed 06/11/25] apixaban 5 mg tablet (Eliquis) 5 mg PO BID 30 days #60 tabs 09/29/22 [Rx Confirmed 06/11/25] aspirin 81 mg chewable tablet (Children's Aspirin) 81 mg PO DAILY 30 days #30 tabs 09/29/22 [Rx Confirmed 06/11/25] atorvastatin 80 mg tablet 80 mg PO DAILY 30 days #30 tabs 09/29/22 [Rx Confirmed 06/11/25] carvedilol 12.5 mg tablet 12.5 mg PO BID 30 days #60 tabs 09/29/22 [Rx Confirmed 06/11/25] cholecalciferol (vitamin D3) 25 mcg (1,000 unit) tablet 50 mcg (2 x 25 mcg (1,000 unit)) PO DAILY 30 days #60 tabs 09/29/22 [Rx Confirmed 06/11/25] cyclobenzaprine 5 mg tablet 5 mg PO TID PRN Spasms 30 days #21 tabs 09/29/22 [Rx Confirmed 06/11/25] fluoxetine 20 mg capsule 20 mg PO DAILY 30 days #30 caps 09/29/22 [Rx Confirmed 06/11/25] gabapentin 300 mg capsule 900 mg (3 x 300 mg) PO Q8HR 30 days #270 caps 09/29/22[Rx Confirmed 06/11/25] lanolin alcohols-mineral oil-w.petrolatum-ceresin topical cream (Minerin Creme topical) 1 applic topical BID #1 ea 09/29/22 [Rx Confirmed 06/11/25] nystatin 100,000 unit/gram topical powder (Nystop) 1 applic topical BID 14 days #1 ea 09/29/22 [Rx Confirmed 10/05/22] omeprazole 20 mg capsule,delayed release 40 mg (2 x 20 mg) PO DAILY 30 days #60 caps 09/29/22 [Rx Confirmed 06/11/25] oxycodone 5 mg tablet 5 mg PO Q4H PRN Pain 7 days #20 tabs 09/29/22 [Rx Confirmed 06/11/25] potassium chloride 20 mEq tablet,extended release(part/cryst) (Klor-Con M) 20 meq PO DAILY 30 days #30 tabs 09/29/22 [Rx Confirmed 06/11/25] sulfamethoxazole 800 mg-trimethoprim 160 mg tablet 1 tab PO BID 4 days #9 tabs 09/29/22 [Rx Confirmed 06/11/25] triamcinolone acetonide 0.1 % topical cream 1 applic topical BID 30 days #1 ea 09/29/22 [Rx Confirmed 10/05/22] zolpidem 10 mg tablet 10 mg PO QHS PRN Sleep 7 days #7 tabs 09/29/22 [Rx Confirmed 06/11/25] Allergies doxycycline Allergy (Verified 07/30/20 10:11) Itching Penicillins Allergy (Verified 07/30/20 10:11) Hives Wound/Ulcer Left Lower Leg: Type: Venous Stasis Ulcer Thickness: Full Bed Appearance: V[place] and Yellow Percent of Wound Bed Granulated/Red: 5 Percent of Devitalized: 95 Length (cm): 2.3 Width (cm): 1.2 Depth (cm): 0.2 CM Sq: 2.760 Surrounding Tissue Appearance: Hyperpigmented Surrounding Tissue Temp: Warm Drainage Amount: Moderate Drainage Description: Purulent Drainage Odor: No Odor Lidocaine Applied Topically: 2% Jelly Results Height: 5 ft 9 in Weight: 83.007 kg Body Mass Index: 27.0 Assessment/Plan Assessment/Plan (1) Venous stasis ulcer of left lower extremity: Code(s): I83.029 - Varicose veins of left lower extremity with ulcer of unspecified site (2) Venous stasis of both lower extremities: Code(s): I87.8 - Other specified disorders of veins (3) Hemosiderin pigmentation of lower extremity due to varicose veins: Code(s): L81.8 - Other specified disorders of pigmentation; I83.899 - Varicose veins of unspecified lower extremity with other complications (4) Lymphedema of both lower extremities: Code(s): I89.0 - Lymphedema, not elsewhere classified (5) Peripheral vascular disease: Code(s): I73.9 - Peripheral vascular disease, unspecified (6) Diabetes mellitus: Code(s): E11.9 - Type 2 diabetes mellitus without complications Plan See orders and HPI. Time spent with patient Time Spent With Patient (min): 20 Dictated By: Shelly Mclaughlin APRN DD/ 0847 Signed By: 06/11/25 0854 [facility]08-18-2025 Telephone encounter Note* Telephone Encounter - JADE Porter - 06/10/2025 9:24 AM EDT OARRS reviewed, Rx sent into patient's pharmacy. [facility] [id number] Miscellaneous Notes* Telephone Encounter - JADE Porter - 06/10/2025 9:24 AM EDT OARRS reviewed, Rx sent into patient's pharmacy. * Telephone Encounter - ADALGISA HANSON - 06/10/2025 8:34 AM EDT OV 05/30/25 RF 05/16/25 documented in this encounterSSM [facility] [id number] Telephone encounter Note* Telephone Encounter - ADALGISA HANSON - 06/10/2025 8:34 AM EDT OV 05/30/25 RF 05/16/25 [facility] [id number] Telephone encounter Note* Telephone Encounter - JADE Porter - 06/03/2025 1:08 PM EDT Acknowledged. [facility] [id number] Miscellaneous Notes* Telephone Encounter - JADE Porter - 06/03/2025 1:08 PM EDT Acknowledged. * Telephone Encounter - JADE Porter - 06/03/2025 8:33 AM EDT Please reach out to patient and see how he is doing today. Was dx with a clot per the US, of which pt is aware. Please ask pt if he has compression stockings. If so, I would like him to wear them when possible. If not, I am happy to send in an order for him. documented in this encounterSSM Saint [facility] CenterEnwmwkvhpe82-95-6749 Telephone encounter Note* Telephone Encounter - JADE Porter - 06/03/2025 8:33 AM EDT Please reach out to patient and see how he is doing today. Was dx with a clot per the US, of which pt is aware. Please ask pt if he has compression stockings. If so, I would like him to wear them when possible. If not, I am happy to send in an order for him. [place] [id number] History of Present illness Narrative* Denise Willis MD - 05/31/2025 10:45 AM EDT [facility] [address] [facility] [id number] Name: Indio Collado : 1955 Date of surgery: 04/17/2025 Chief Complaint Patient presents with Left Shoulder - Post-op Post op left reverse tsa done 04/17/25. Doing home exercises. XR done today. Subjective Indio Collado is a 70 y.o. year old male who presents to the office today s/p left reverse tsa 04/17/25. He denies any fever or chills. No chest pain or SOB. 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 He states there is only minimal pain with movement. He denies use of any oral pain medication. He has not attended physical therapy at thispoint but is doing home exercises. He states he is overall doing very well. Past Medical, Family, Surgical, and Social History, as well as Medications, Allergies, and Review of Systems were reviewed and can be seen in the patient's chart. Objective Body mass index is 26.88 kg/m . Indio is alert and oriented, in no acute distress. On examination of the left shoulder surgical incisions are well-healed. There is no erythema or signs of infection. No swelling on examination. No tenderness along the scapula or acromion. Minimal pain with active range of motion. Neurovascularly intact with sensation to light touch and brisk capillary refill distally. X-rays X-ray shoulder left minimum 2 views AP and lateral x-rays left shoulder reviewed stable appearing reverse total shoulder arthroplasty without evidence of hardware failure this is my independent interpretation. Assessment: 70 y.o. year old male s/p left reverse tsa 04/17/2025. Doing well Plan: I, DENISE WILLIS MD, personally performed the face to face evaluation on this patient. I discussed with the patient and confirmed the accuracy and completeness of the aforementioned history prepared by the [place] practice provider, and I personally performed the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 09/27/2019 Performed by Michael Carmen MD at [facility] COLON SURGERY unsure of surgical name, states for diverticulous COLONOSCOPY N/A 09/27/2019 Performed by Michael Carmen MD at [facility] CORONARY ANGIOPLASTY WITH STENT PLACEMENT EGD N/A 09/27/2019 Performed by Michael Carmen MD at [facility] JOINT REPLACEMENT Bilateral knee replacements TENOTOMY TENDON SINGLE TOE Left 08/04/2023 Performed by Moreno Cardenas DPM at [facility] TONSILLECTOMY TOTAL KNEE ARTHROPLASTY Bilateral FAMILY HISTORY: Family History Problem Relation Age of Onset Cancer Mother Diabetes Father Heart attack Father Stroke Father Cancer Sister Cancer Brother Stroke Brother Anesthesia problems Neg Hx SOCIAL HISTORY: The patient reports no history of alcohol use. He reports that he quit smoking about 19 years ago. His smoking use included cigarettes. He has never used smokeless tobacco. He reports no history of drug use. ALLERGIES: Allergies Allergen Reactions Penicillins Hives Morphine Nausea And Vomiting Doxycycline Itching, Nausea and Other (See Comments) Other Reaction(s): Itching MEDICATIONS: Current Outpatient Medications: amiodarone (PACERONE) 100 mg tablet, Take 1 tablet (100 mg total) by mouth in the morning. Indications: atrial fibrillation electrically shocked to normal rhythm., Disp: , Rfl: apixaban (ELIQUIS) 5 mg tablet, Take 1 tablet (5 mg total) by mouth in the morning and 1 tablet (5 mg total) before bedtime. Indications: blood clot in a deep vein of the extremities., Disp: , Rfl: atorvastatin (LIPITOR) 80 mg tablet, Take 1 tablet (80 mg total) by mouth nightly Indications: highcholesterol., Disp: , Rfl: famotidine (PEPCID) 20 mg tablet, Take 1 tablet (20 mg total) by mouth Daily at 0300., Disp: , Rfl: fludrocortisone (FLORINEF) 0.1 mg tablet, Take 1 tablet (0.1 mg total) by mouth nightly., Disp: , Rfl: FLUoxetine (PROzac) 20 mg capsule, Take 1 capsule (20 mg total) by mouth in the morning., Disp: , Rfl: furosemide (LASIX) 20 mg tablet, Take 1 tablet (20 mg total) by mouth daily Indications: visible water retention., Disp: , Rfl: gabapentin (NEURONTIN) 300 mg capsule, Take 3 capsules (900 mg total) by mouth in the morning and 3capsules (900 mg total) at noon and 3 capsules (900 mg total) before bedtime. Indications: neuropathic pain., Disp: , Rfl: HYDROcodone-acetaminophen (NORCO) 5-325 mg per tablet, Take 1 tablet by mouth every 6 (six) hours as needed., Disp: , Rfl: meloxicam (MOBIC) 15 mg tablet, Take 1 tablet (15 mg total) by mouth in the morning. Indications: joint damage causing pain and loss of function., Disp: , Rfl: metoprolol succinate XL (TOPROL XL) 25 mg 24 hr tablet, Take 1 tablet (25 mg total) by mouth in themorning. Indications: high blood pressure., Disp: , Rfl: omeprazole (PriLOSEC) 40 mg capsule, Take 1 capsule (40 mg total) by mouth in the morning. Indications: gastroesophageal reflux disease., Disp: , Rfl: potassium chloride (K-TAB,KLOR-CON) 10 MEQ CR tablet, Take 1 tablet (10 mEq total) by mouth in the morning and 1 tablet (10 mEq total) before bedtime., Disp: , Rfl: tiZANidine (ZANAFLEX) 4 mg tablet, , Disp: , Rfl: zolpidem (AMBIEN) 10 mg tablet, Take 1 tablet (10 mg total) by mouth daily as needed., Disp: , Rfl: aspirin 81 mg, Take 1 tablet (81 mg total) by mouth in the morning. (Patient not taking: Reported on 12/31/2024), Disp: , Rfl: carvedilol (COREG) 25 mg tablet, Take 1 tablet (25 mg total) by mouth in the morning and 1 tablet (25 mg total) in the evening. Take with meals. (Patient not taking: Reported on 12/31/2024), Disp: , Rfl: ceFUROxime (CEFTIN) 250 mg tablet, Take 1 tablet (250 mg total) by mouth 2 (two) times a day. (Patient not taking: Reported on 12/31/2024), Disp: 20 tablet, Rfl: 0 dilTIAZem CD (CARDIZEM CD) 180 mg 24 hr capsule, Take 1 capsule (180 mg total) by mouth in the morning. (Patient not taking: Reported on 12/31/2024), Disp: 28 capsule, Rfl: 0 diosmin complex no.1 (VASCULERA) 630 mg tablet, Take 1 tablet by mouth in the morning. (Patient nottaking: Reported on 12/31/2024), Disp: 90 tablet, Rfl: 1 tamsulosin (FLOMAX) 0.4 mg capsule, Take 1 capsule (0.4 mg total) by mouth in the morning. (Patientnot taking: Reported on 12/31/2024), Disp: , Rfl: REVIEW OF SYSTEMS: Review of Systems Constitutional: Negative for fever and chills. HENT: Negative for congestion and sore throat. Eyes: Negative for discharge and redness. Respiratory: Negative for cough and shortness of breath. Cardiovascular: Negative for chest pain and chest discomfort. Gastrointestinal: Negative for vomiting and diarrhea. Genitourinary: Negative for dysuria and difficulty urinating. Musculoskeletal: Positive for arthralgias. Negative for neck pain. Neurological: Negative for dizziness and light-headedness. VITAL SIGNS: BP 144/69 Pulse (!) 46 Temp 36.3 C (97.4 F) (Temporal) Resp 18 Ht 175.3 cm (5' 9 ) Wt 84.5 kg (186 lb 4.6 oz) SpO2 100% BMI 27.51 kg/m PHYSICAL EXAM: Physical Exam Vitals reviewed. Constitutional: General: He is not in acute distress. HENT: Head: Normocephalic and atraumatic. Mouth/Throat: Comments: Mallampati II Eyes: Conjunctiva/sclera: Conjunctivae normal. Cardiovascular: Rate and Rhythm: Regular rhythm. Bradycardia present. Pulmonary: Effort: Pulmonary effort is normal. Breath sounds: Normal breath sounds. No wheezing. Abdominal: Palpations: Abdomen is soft. Tenderness: There is no abdominal tenderness. Musculoskeletal: Right shoulder: Decreased range of motion. Normal pulse. Left shoulder: Decreased range of motion. Normal pulse. Cervical back: Neck supple. Skin: General: Skin is warm and dry. Neurological: Mental Status: He is alert and oriented to person, place, and time. Mental status is at baseline. Psychiatric: Mood and Affect: Mood normal. Behavior: Behavior normal. PERTINENT TESTING AVAILABLE IN [facility] (WITHIN THE PAST 2 YEARS): EK01/31/25 Echo: Echo complete W/ contrast TRANSESOPHAGEAL ECHO (HI) W/ LIMITED DOPPLER AND COLOR FLOW 02/29/2024 Narrative 1 [facility] Heart Station [address] [place] [address] [phone] (fax) Transesophageal Echocardiogram-[facility] Name: INDIO COLLADO Study Date: 02/29/2024 10:27 AM B/P: 130 mmHg/107 mmHg HR: 135 bpm Date of : 1955 Location: [facility] Height: 69 in. Age: 68 year(s) Patient Room: [facility] Weight: 211 lb. Gender: Male Patient Status: OutPt BSA: 2.11 m2 Indication: Atrial Fibrillation Examination: HI/CFI with Cardioversion, Limited Doppler, Agitated Saline Image Quality: Good Patient Consent: Informed, written consent was obtained for the procedure Exam Details Contrast: I.V. dose of agitated saline Exam Location: A HI was performed in the [employer] [facility] without complications Anesthesia Pharyngeal anesthesia with viscous Lidocaine Conclusions Left Ventricle: The left ventricle appears enlarged. [...] the patient was converted to sinus rhythm Medications Date Time Name Route Form Dose Units Ordered By Given By Comment 02/29/2024 11:34 AM Midazolam HCL (Versed) 6 milligrams 02/29/2024 11:34 AM Fentanyl (Opiates) 50 micrograms Valvular Assessment LVOT 0.7 - 1.1 m/sec Aortic Valve 1.0 - 1.7 m/sec Mitral Valve 0.6 - 1.3 m/sec Tricuspid Valve 0.3 - 0.7 m/sec Pulmonic Valve 0.6 - 0.9 m/sec Regurgitation No Mild Mild No Stenosis No Findings Left Ventricle: The left ventricle appears enlarged. [...] No intracardiac shunt by agitated saline injections. Right Atrium: The right atrium is normal in size. Mitral Valve: The mitral valve is normal in mobility and thickness. Mild mitral regurgitation. Aortic Valve: No aortic valve regurgitation. The aortic valve is trileaflet. Aortic leaflets exhibit sclerosis. Tricuspid Valve: Tricuspid valve appears normal. Mild tricuspid regurgitation. No tricuspid valve stenosis. Pulmonic Valve: Pulmonic valve is poorly visualized. No pulmonary regurgitation. Aorta: Mild atherosclerotic plaque is seen in the aorta. Procedure Staff Reading Group: [facility] Fmd Teacher: TAMMIE Hassan, RDCS Ordering Physician: FAB CORTEZ Echo HI Result Date: 02/29/2024 1 [facility] Heart Station [address] [place] [address] [phone] (fax) Transesophageal Echocardiogram-[facility] Name: INDIO COLLADO Study Date: 02/29/2024 10:27 AM B/P: 130 mmHg/107 mmHg HR: 135 bpm Date of : 1955 Location: [facility] Height: 69 in. Age: 68 year(s) Patient Room: [facility] Weight: 211 lb. Gender: Male Patient Status: OutPt BSA: 2.11 m2 Indication: Atrial Fibrillation Examination: HI/CFI with Cardioversion, Limited Doppler, Agitated Saline Image Quality: Good Patient Consent: Informed, written consent was obtained for the procedure Exam Details Contrast: I.V. dose of agitated saline Exam Location: A HI was performed in the [employer] without complications Anesthesia Pharyngeal anesthesia with viscous Lidocaine Conclusions Left Ventricle: The left ventricle appears enlarged. [...] the patient was converted to sinus rhythm Medications Date Time Name Route Form Dose Units Ordered By Given By Comment 02/29/2024 11:34 AM Midazolam HCL (Versed) 6 milligrams 02/29/2024 11:34 AM Fentanyl (Opiates) 50 micrograms Nya vular Assessment LVOT 0.7 - 1.1 m/sec Aortic Valve 1.0 - 1.7 m/sec Mitral Valve 0.6 - 1.3 m/sec Tricuspid Valve 0.3 - 0.7 m/sec Pulmonic Valve 0.6 - 0.9 m/sec Regurgitation No Mild Mild No Stenosis No Findings Left Ventricle: The left ventricle appears enlarged. Global left ventricular systolic function is difficult to assess due to rhythm but appears reduced. EF range is estimated at 30 % -35 %.Right Ventricle: The right ventricle is normal in size. Right ventricular systolic function appearsnormal. Left Atrium: The left atrium appears enlarged. Left Atrium Appendage: Normal left atrial appendage, no thrombus seen. IAS: No intracardiac shunt by agitated saline injections. Right Atrium: The right atrium is normal in size. Mitral Valve: The mitral valve is normal in mobility and thickness. Mild mitral regurgitation. Aortic Valve: No aortic valve regurgitation. The aortic valve is trileaflet. Aortic leaflets exhibit sclerosis. Tricuspid Valve: Tricuspid valve appears normal. Mild tricu spid regurgitation. No tricuspid valve stenosis. Pulmonic Valve: Pulmonic valve is poorly visualized. No pulmonary regurgitation. Aorta: Mild atherosclerotic plaque is seen in the aorta. Procedure Staff Reading Group: [facility] Fmd Teacher: TAMMIE Hassan, RDCS Ordering Physician: FAB CORTEZ Stress test: No results found for this or any previous visit from the past 913 days. No results found. Cardiac catheterization: No results found. Holter: No results found for this or any previous visit from the past 913 days. No results found. Carotids: No results found. Pulmonary function testing: RECENT LABS: Lab Results Component Value Date WBC 10.4 01/28/2024 HGB 12.1 (L) 01/28/2024 HCT 35.7 (L) 01/28/2024 PLT 237 01/28/2024 INR 2.0 (H) 01/28/2024 PTT 46 (H) 01/28/2024 SODIUM 134 01/28/2024 K 3.2 (L) 01/28/2024 CL 103 01/28/2024 CO2 24 01/28/2024 CALCIUM 7.8 (L) 01/28/2024 ALKPHOS 109 01/28/2024 ALBUMIN 3.4 01/28/2024 GLU 131 (H) 01/28/2024 HGBA1C 5.8 11/29/2017 ALT 24 01/28/2024 AST 19 01/28/2024 CREATININE 1.09 01/28/2024 BUN 22 01/28/2024 EGFR 74 01/28/2024 *Please note that labs listed above are the most recent lab values available in [facility] at the time ofthe appointment. ASSESSMENT / DIAGNOSIS: Primary osteoarthritis of left shoulder PLAN: Indio Collado is scheduled for reverse arthroplasty total shoulder left by Dr. Willis on 04/17/25. Testing performed in Pre-Admission Clinic today: labs JADE Carroll 04/03/25 1533 [facility]06-[facility] History and physical note* JADE Carroll - 04/03/2025 2:15 PM EDT PRE-ADMISSION TESTING HISTORY AND PHYSICAL EXAM DATE: 04/03/25 PCP: LUIS VELAZQUEZ MD CHIEF COMPLAINT: left shoulder pain HISTORY OF PRESENT ILLNESS: Indio Collado, a 69 y.o. White or male, presents to [facility] for a pre- surgical H&P. The patient has been diagnosed with primary osteoarthritis of left shoulder. He complains of left shoulder pain for years.No specific injury. Pain can be sharp, stabbing, achy, throbbing. Worse with lifting the arm and laying on that side. Better with pain meds. He has right shoulder pain. He is right handed. No neck pain. No numbness/tingling. He feels at his baseline. He reports he is frequently bradycardic and that is not new. He denies any acute symptoms and againfeels at his baseline. He has a h/o DVT. No h/o blood transfusions. +prolonged emergence from anesthesia PAST MEDICAL HISTORY: Past Medical History: [place] [place] pain CHF (congestive heart failure) [place] [place] Coronary artery disease Deep vein [place] [place] Dental disease Depression Diverticulitis GERD (gastroesophageal reflux disease) [place] [place] 2018 1 stent Heart disease Hip pain History of myocardial infarction Hx of blood clots Hyperlipidemia Hypertension Memory loss MRSA (methicillin resistant Staphylococcus aureus) 2018 wound in arm Osteoarthritis Peripheral vascular disease Prolonged emergence from general anesthesia RLS (restless legs syndrome) Shortness of breath Sleep apnea Not since weight loss surgery PAST SURGICAL HISTORY: Past Surgical History: Procedure Laterality Date AMPUTATION TOE Left 08/04/2023 Performed by Moreno Cardenas DPM at [facility] BOWEL RESECTION CAPSULOTOMY JOINT METATARSOPHALANGEAL (MTP) & CPT 75141 Left 08/04/2023 Performed by Moreno Cardenas DPM at [facility] CAUTERY UMBILICUS N/A 09/27/2019 Performed by Michael Carmen MD at [facility] COLON SURGERY unsure of surgical name, states for diverticulous COLONOSCOPY N/A 09/27/2019 Performed by Michael Carmen MD at [facility] CORONARY ANGIOPLASTY WITH STENT PLACEMENT EGD N/A 09/27/2019 Performed by Michael Carmen MD at [facility] JOINT REPLACEMENT Bilateral knee replacements TENOTOMY TENDON SINGLE TOE Left 08/04/2023 Performed by Moreno Cardenas DPM at [facility] TONSILLECTOMY TOTAL KNEE ARTHROPLASTY Bilateral FAMILY HISTORY: Family History Problem Relation Age of Onset Cancer Mother Diabetes Father Heart attack Father Stroke Father Cancer Sister Cancer Brother Stroke Brother Anesthesia problems Neg Hx SOCIAL HISTORY: The patient reports no history of alcohol use. He reports that he quit smoking about 19 years ago. His smoking use included cigarettes. He has never used smokeless tobacco. He reports no history of drug use. ALLERGIES: Allergies Allergen Reactions Penicillins Hives Morphine Nausea And Vomiting Doxycycline Itching, Nausea and Other (See Comments) Other Reaction(s): Itching MEDICATIONS: Current Outpatient Medications: amiodarone (PACERONE) 100 mg tablet, Take 1 tablet (100 mg total) by mouth in the morning. Indications: atrial fibrillation electrically shocked to normal rhythm., Disp: , Rfl: apixaban (ELIQUIS) 5 mg tablet, Take 1 tablet (5 mg total) by mouth in the morning and 1 tablet (5 mg total) before bedtime. Indications: blood clot in a deep vein of the extremities., Disp: , Rfl: atorvastatin (LIPITOR) 80 mg tablet, Take 1 tablet (80 mg total) by mouth nightly Indications: highcholesterol., Disp: , Rfl: famotidine (PEPCID) 20 mg tablet, Take 1 tablet (20 mg total) by mouth Daily at 0300., Disp: , Rfl: fludrocortisone (FLORINEF) 0.1 mg tablet, Take 1 tablet (0.1 mg total) by mouth nightly., Disp: , Rfl: FLUoxetine (PROzac) 20 mg capsule, Take 1 capsule (20 mg total) by mouth in the morning., Disp: , Rfl: furosemide (LASIX) 20 mg tablet, Take 1 tablet (20 mg total) by mouth daily Indications: visible water retention., Disp: , Rfl: gabapentin (NEURONTIN) 300 mg capsule, Take 3 capsules (900 mg total) by mouth in the morning and 3capsules (900 mg total) at noon and 3 capsules (900 mg total) before bedtime. Indications: neuropathic pain., Disp: , Rfl: HYDROcodone-acetaminophen (NORCO) 5-325 mg per tablet, Take 1 tablet by mouth every 6 (six) hours as needed., Disp: , Rfl: meloxicam (MOBIC) 15 mg tablet, Take 1 tablet (15 mg total) by mouth in the morning. Indications: joint damage causing pain and loss of function., Disp: , Rfl: metoprolol succinate XL (TOPROL XL) 25 mg 24 hr tablet, Take 1 tablet (25 mg total) by mouth in themorning. Indications: high blood pressure., Disp: , Rfl: omeprazole (PriLOSEC) 40 mg capsule, Take 1 capsule (40 mg total) by mouth in the morning. Indications: gastroesophageal reflux disease., Disp: , Rfl: potassium chloride (K-TAB,KLOR-CON) 10 MEQ CR tablet, Take 1 tablet (10 mEq total) by mouth in the morning and 1 tablet (10 mEq total) before bedtime., Disp: , Rfl: tiZANidine (ZANAFLEX) 4 mg tablet, , Disp: , Rfl: zolpidem (AMBIEN) 10 mg tablet, Take 1 tablet (10 mg total) by mouth daily as needed., Disp: , Rfl: aspirin 81 mg, Take 1 tablet (81 mg total) by mouth in the morning. (Patient not taking: Reported on 12/31/2024), Disp: , Rfl: carvedilol (COREG) 25 mg tablet, Take 1 tablet (25 mg total) by mouth in the morning and 1 tablet (25 mg total) in the evening. Take with meals. (Patient not taking: Reported on 12/31/2024), Disp: , Rfl: ceFUROxime (CEFTIN) 250 mg tablet, Take 1 tablet (250 mg total) by mouth 2 (two) times a day. (Patient not taking: Reported on 12/31/2024), Disp: 20 tablet, Rfl: 0 dilTIAZem CD (CARDIZEM CD) 180 mg 24 hr capsule, Take 1 capsule (180 mg total) by mouth in the morning. (Patient not taking: Reported on 12/31/2024), Disp: 28 capsule, Rfl: 0 diosmin complex no.1 (VASCULERA) 630 mg tablet, Take 1 tablet by mouth in the morning. (Patient nottaking: Reported on 12/31/2024), Disp: 90 tablet, Rfl: 1 tamsulosin (FLOMAX) 0.4 mg capsule, Take 1 capsule (0.4 mg total) by mouth in the morning. (Patientnot taking: Reported on 12/31/2024), Disp: , Rfl: REVIEW OF SYSTEMS: Review of Systems Constitutional: Negative for fever and chills. HENT: Negative for congestion and sore throat. Eyes: Negative for discharge and redness. Respiratory: Negative for cough and shortness of breath. Cardiovascular: Negative for chest pain and chest discomfort. Gastrointestinal: Negative for vomiting and diarrhea. Genitourinary: Negative for dysuria and difficulty urinating. Musculoskeletal: Positive for arthralgias. Negative for neck pain. Neurological: Negative for dizziness and light-headedness. VITAL SIGNS: BP 144/69 Pulse (!) 46 Temp 36.3 C (97.4 F) (Temporal) Resp 18 Ht 175.3 cm (5' 9 ) Wt 84.5 kg (186 lb 4.6 oz) SpO2 100% BMI 27.51 kg/m PHYSICAL EXAM: Physical Exam Vitals reviewed. Constitutional: General: He is not in acute distress. HENT: Head: Normocephalic and atraumatic. Mouth/Throat: Comments: Mallampati II Eyes: Conjunctiva/sclera: Conjunctivae normal. Cardiovascular: Rate and Rhythm: Regular rhythm. Bradycardia present. Pulmonary: Effort: Pulmonary effort is normal. Breath sounds: Normal breath sounds. No wheezing. Abdominal: Palpations: Abdomen is soft. Tenderness: There is no abdominal tenderness. Musculoskeletal: Right shoulder: Decreased range of motion. Normal pulse. Left shoulder: Decreased range of motion. Normal pulse. Cervical back: Neck supple. Skin: General: Skin is warm and dry. Neurological: Mental Status: He is alert and oriented to person, place, and time. Mental status is at baseline. Psychiatric: Mood and Affect: Mood normal. Behavior: Behavior normal. PERTINENT TESTING AVAILABLE IN [facility] (WITHIN THE PAST 2 YEARS): EK01/31/25 Echo: Echo complete W/ contrast TRANSESOPHAGEAL ECHO (HI) W/ LIMITED DOPPLER AND COLOR FLOW 02/29/2024 Narrative 1 [facility] Heart Station [address] [place] [address] [phone] (fax) Transesophageal Echocardiogram-[facility] Name: INDIO COLLADO Study Date: 02/29/2024 10:27 AM B/P: 130 mmHg/107 mmHg HR: 135 bpm Date of : 1955 Location: [facility] Height: 69 in. Age: 68 year(s) Patient Room: [facility] Weight: 211 lb. Gender: Male Patient Status: OutPt BSA: 2.11 m2 Indication: Atrial Fibrillation Examination: HI/CFI with Cardioversion, Limited Doppler, Agitated Saline Image Quality: Good Patient Consent: Informed, written consent was obtained for the procedure Exam Details Contrast: I.V. dose of agitated saline Exam Location: A HI was performed in the [employer] [facility] without complications Anesthesia Pharyngeal anesthesia with viscous Lidocaine Conclusions Left Ventricle: The left ventricle appears enlarged. [...] the patient was converted to sinus rhythm Medications Date Time Name Route Form Dose Units Ordered By Given By Comment 02/29/2024 11:34 AM Midazolam HCL (Versed) 6 milligrams 02/29/2024 11:34 AM Fentanyl (Opiates) 50 micrograms Valvular Assessment LVOT 0.7 - 1.1 m/sec Aortic Valve 1.0 - 1.7 m/sec Mitral Valve 0.6 - 1.3 m/sec Tricuspid Valve 0.3 - 0.7 m/sec Pulmonic Valve 0.6 - 0.9 m/sec Regurgitation No Mild Mild No Stenosis No Findings Left Ventricle: The left ventricle appears enlarged. [...] No intracardiac shunt by agitated saline injections. Right Atrium: The right atrium is normal in size. Mitral Valve: The mitral valve is normal in mobility and thickness. Mild mitral regurgitation. Aortic Valve: No aortic valve regurgitation. The aortic valve is trileaflet. Aortic leaflets exhibit sclerosis. Tricuspid Valve: Tricuspid valve appears normal. Mild tricuspid regurgitation. No tricuspid valve stenosis. Pulmonic Valve: Pulmonic valve is poorly visualized. No pulmonary regurgitation. Aorta: Mild atherosclerotic plaque is seen in the aorta. Procedure Staff Reading Group: [facility] Fmd Teacher: TAMMIE Hassan, RDCS Ordering Physician: FAB CORTEZ Echo HI Result Date: 02/29/2024 1 [facility] Heart Station [address] [place] [address] [phone] (fax) Transesophageal Echocardiogram-[facility] Name: INDIO COLLADO Study Date: 02/29/2024 10:27 AM B/P: 130 mmHg/107 mmHg HR: 135 bpm Date of : 1955 Location: [facility] Height: 69 in. Age: 68 year(s) Patient Room: [facility] Weight: 211 lb. Gender: Male Patient Status: OutPt BSA: 2.11 m2 Indication: Atrial Fibrillation Examination: HI/CFI with Cardioversion, Limited Doppler, Agitated Saline Image Quality: Good Patient Consent: Informed, written consent was obtained for the procedure Exam Details Contrast: I.V. dose of agitated saline Exam Location: A HI was performed in the [employer] [facility] without complications Anesthesia Pharyngeal anesthesia with viscous Lidocaine Conclusions Left Ventricle: The left ventricle appears enlarged. [...] the patient was converted to sinus rhythm Medications Date Time Name Route Form Dose Units Ordered By Given By Comment 02/29/2024 11:34 AM Midazolam HCL (Versed) 6 milligrams 02/29/2024 11:34 AM Fentanyl (Opiates) 50 micrograms Nya vular Assessment LVOT 0.7 - 1.1 m/sec Aortic Valve 1.0 - 1.7 m/sec Mitral Valve 0.6 - 1.3 m/sec Tricuspid Valve 0.3 - 0.7 m/sec Pulmonic Valve 0.6 - 0.9 m/sec Regurgitation No Mild Mild No Stenosis No Findings Left Ventricle: The left ventricle appears enlarged. Global left ventricular systolic function is difficult to assess due to rhythm but appears reduced. EF range is estimated at 30 % -35 %.Right Ventricle: The right ventricle is normal in size. Right ventricular systolic function appearsnormal. Left Atrium: The left atrium appears enlarged. Left Atrium Appendage: Normal left atrial appendage, no thrombus seen. IAS: No intracardiac shunt by agitated saline injections. Right Atrium: The right atrium is normal in size. Mitral Valve: The mitral valve is normal in mobility and thickness. Mild mitral regurgitation. Aortic Valve: No aortic valve regurgitation. The aortic valve is trileaflet. Aortic leaflets exhibit sclerosis. Tricuspid Valve: Tricuspid valve appears normal. Mild tricu spid regurgitation. No tricuspid valve stenosis. Pulmonic Valve: Pulmonic valve is poorly visualized. No pulmonary regurgitation. Aorta: Mild atherosclerotic plaque is seen in the aorta. Procedure Staff Reading Group: [facility] Fmd Teacher: TAMMIE Hassan, RDCS Ordering Physician: FAB CORTEZ Stress test: No results found for this or any previous visit from the past 913 days. No results found. Cardiac catheterization: No results found. Holter: No results found for this or any previous visit from the past 913 days. No results found. Carotids: No results found. Pulmonary function testing: RECENT LABS: Lab Results Component Value Date WBC 10.4 01/28/2024 HGB 12.1 (L) 01/28/2024 HCT 35.7 (L) 01/28/2024 PLT 237 01/28/2024 INR 2.0 (H) 01/28/2024 PTT 46 (H) 01/28/2024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 Exercise Vital Sign Days of Exercise per Week: 7 days Minutes of Exercise per Session: 40 min Stress: No Stress Concern Present (05/30/2023) Received from [facility] [place] of Occupational Health - Occupational Stress Questionnaire Feeling of Stress : Only a little Social Connections: Moderately Integrated (05/30/2023) [facility] Social Connection and Isolation Panel [NHANES] Frequency of Communication with Friends and Family: More than three times a week Frequency of Social Gatherings with Friends and Family: Once a week Attends Spiritism Services: More than 4 times per year Active Member of Clubs or Organizations: Yes Attends Club or Organization Meetings: More than 4 times per year Marital Status: Intimate Partner Violence: Unknown (12/15/2023) [place] Safety & Environment Fear of Current or Ex-Partner: Not on file Emotionally Abused: Not on file Physically Abused: Not on file Sexually Abused: Not on file Physically or Sexually Abused: Not on file Depression: Not at risk (01/09/2024) [facility], [facility] PHQ-2 Patient Health Questionnaire-2 Score: 0 Housing Stability: Low Risk (05/30/2023) Received from [facility], [facility] Housing Stability Vital Sign Unable to Pay for Housing in the Last Year: No Number of Places Lived in the Last Year: 1 Unstable Housing in the Last Year: No Utilities: Not on file Health Literacy: Adequate Health Literacy (06/05/2024) Received from [facility], [facility] B1300 Health Literacy Frequency of need for help (more content not included)...[facility]11-12-2024 Telephone encounter Note* Telephone Encounter - JADE Porter - 09/04/2024 11:51 AM EST OARRS reviewed, Rx sent into patient's pharmacy. [facility] [id number] Miscellaneous Notes* Telephone Encounter - JADE Porter - 09/04/2024 11:51 AM EST OARRS reviewed, Rx sent into patient's pharmacy. documented in this encounterSSM Saint Mary's Health [id number] History of Present illness Narrative* Moreno Cardenas DPM - 09/03/2024 10:00 AM EST Images from the original note were not [...] 09/01/2021 [facility] toe of left foot [facility] 08/04/2023 2nd toe Atrial fibrillation ([facility]) Coronary artery disease ([facility] Diabetes mellitus ([facility]) Diverticulosis H/O knee surgery 2021 Heart failure ([facility]) History of blood clots Hx of being hospitalized acute renal failure, elevated troponin, elevated dimmer, thrombocytopenia Hypertension (CMS/HCC) Shingles Stomach problems Venous stasis ulcer Left Calf 2018 Medications Current Outpatient Medications: amiodarone (Pacerone) 100 [...] in the morning , in the evening andbefore bedtime, Disp: 270 capsule, Rfl: 5 HYDROcodone-acetaminophen (Colby) 7.5-325 MG tablet, Take 1 tablet by [...] BY MOUTH EVERY DAY 30 MINUTES BEFORE MORNINGMEAL FOR 90 DAYS, Disp: 100 capsule, Rfl: 3 potassium chloride CR (Klor-Con M10) 10 MEQ ER tablet, Take 20 mEq by mouth in the morning and 20 mEq in the evening., Disp: , Rfl: sacubitril-valsartan (Entresto) 24-26 MG tablet, Take 1 tablet by mouth in the morning and 1 tabletin the evening., Disp: , Rfl: tiZANidine (Zanaflex) [...] and I recommend that we restart power steptherapy. Patient fitted for and dispensed power steps today. I also added custom foam metatarsal pad to further offload the metatarsal heads. Patient ambulated in the orthotics and stated that his feet felt much better. Additionally I recommend taking meloxicam daily for 1 month to try and reduce th e symptomatology on the forefoot. I then recommend [...] understanding. Moreno Cardenas DPM documented in this [facility]10-30-2024 Telephone encounter Note* Telephone Encounter - JADE Porter - 08/22/2024 2:43 PM EDT OARRS reviewed, Rx sent into patient's pharmacy. [facility] [id number] Miscellaneous Notes* Telephone Encounter - JADE Porter - 08/22/2024 2:43 PM EDT OARRS reviewed, Rx sent into patient's pharmacy. documented in this [facility]10-07-2024 History of Present illness Narrative* JADE Porter - 07/30/2024 4:00 PM EDT Images from the original note were not [...] mouth every 8 (eight) hours if needed formuscle spasms 60 tablet 1 zolpidem (Ambien) 10 MG tablet Take 1 tablet (10 mg) by mouth as needed at bedtime for sleep 30 tablet 2 [DISCONTINUED] HYDROcodone-acetaminophen (Colby) 5-325 MG tablet Take 1 tablet by [...] for this visit: Lumbar spondylosis - HYDROcodone-acetaminophen (Colby) 7.5-325 MG tablet; Take 1 tablet by mouth every 6 (six) hours if needed for severe pain for up to 15 days - MR lumbar spine wo contrast; Future Has tried OTC, muscle relaxer, pain medication, gabapentin, and physical therapy without consistentor lasting relief. Pt has right leg weakness. Will obtain MRI for further evaluation at this time. OARRS report generated and reviewed. Provided pt with Colby 7.5 mg. Advised the goal will be [...] vaccination - Influenza, high-dose seasonal, quadrivalent, PF (HDP172) (Fluzone High Dose Quad [place] 0.7mL dose) Provided pt with flu shot today, he tolerated this well. Retrolisthesis of vertebrae Comments: L2-L3 Orders: - MR lumbar spine wo contrast; Future Will assess further with MRI. Follow up in about 3 months (around 10/30/2024) for Medication Follow Up. documented in this encounterSSM Saint Mary's Health [id number] History of Present illness Narrative* Alexandre Reinoso NP - 07/12/2024 3:30 PM EDT Images from the original note were not [...] mouth every 8 (eight) hours if needed formuscle spasms 60 tablet 1 zolpidem (Ambien) 10 [...] ARTHROPLASTY TOTAL KNEE ARTHROPLASTY 2014 Visit Vitals Ht 5' 9 BMI 26.40 [...] if continued or worsening symptoms - HYDROcodone-acetaminophen (Colby) 5-325 MG tablet; Take 1 tablet by mouth every 6 (six) hours if needed for severe pain for up to 15 days Dispense: 60 tablet; Refill: 0 2. Lumbar paraspinal muscle spasm - HYDROcodone-acetaminophen (Colby) 5-325 MG tablet; Take 1 tablet by [...] Dispense: 60 tablet; Refill: 1 - HYDROcodone-acetaminophen (Colby) 5-325 MG tablet; Take 1 tablet by mouth every 6 (six) hours if needed for severe pain for up to 15 days Dispense: 60 tablet; Refill: 0 No follow-ups on file. documented in this [facility]09-19-2024 Instructions* Patient Instructions* Alexandre Reinoso NP - 07/12/2024 3:30 PM EDT Colby is added at 5/325 mg tablets, x 15 days, #60 Continue tizanidine as ordered documented in this [facility]09-17-2024 Telephone encounter Note* Telephone Encounter - Tammy Boo RN - 07/10/2024 4:00 PM EDT We did received cardiac clearance. Referral placed to Dr Willis, [facility] [place] His phone number is [phone]. Call back with any questions. [facility] [id number] Miscellaneous Notes* Telephone Encounter - Tammy Boo RN - 07/10/2024 4:00 PM EDT We did received cardiac clearance. Referral placed to Dr Willis, he is a shoulder specialist with [facility] in [place]. His phone number is [phone]. Call back with any questions. * Telephone Encounter - Ashanti Taylor - 07/09/2024 3:53 PM EDT Pt called and left vm asking if received cardiac clearance yet from doctor, and if so he would liketo schedule his sx. Please call him at [phone] documented in this encounterSSM Saint Mary's Health [id number] Telephone encounter Note* Telephone Encounter - Ashanti Taylor - 07/09/2024 3:53 PM EDT Pt called and left vm asking if received cardiac clearance yet from doctor, and if so he would liketo schedule his sx. Please call him at [phone] [facility] [id number] History of Present illness Narrative* Eva Sanchez DO - 06/28/2024 1:00 PM EDT Images from the original note were not included. HISTORY OF PRESENT ILLNESS: Indio Collado is an 69 y.o. @ male. Chief complaint LT shoulder pain LT shoulder: here for MRI results [facility] 06/13/24. LT shoulder pain x 01/2023, uses a zero turn at work, can hardly use it anymore, has to take breaks.Tripped and fell 07/25/23, went to [facility] ER, had XR. Pain has been [...] creams, depo injection 05/31/23, [facility] ER with XR07/25/23, icy hot,aspiration/GH depo injx 10/25/23, GH depo [...] 09/01/2021 Amputation of toe of left foot ([facility]/HCC) 08/04/2023 2nd toe Atrial fibrillation ([facility]/HCC) Coronary artery disease ([facility]/HCC) Diabetes mellitus ([facility]/HCC) Diverticulosis H/O knee surgery 2021 Heart failure ([facility]/HCC) History of blood clots Hx of being [...] MRI of the left shoulder from the [facility] center dated June 13, 2024. Thereis fatty infiltration into the supraspinatus infraspinatus and subscapularis. There is a massive retracted rotator cuff tear involving the subscapularis supraspinatus and infraspinatus. The humeral head is elevated and abutting against the undersurface of the acromion. There is subchondral sclerosis noted on the humeral head and there is flattening of the humeral head superiorly from what appearsto be chronic impingement on the acromion from [...] We discussed shoulder replacement if he could becleared from Voice Engineer, I would refer him to a shoulder joint specialist due to his co-morbidities. Follow up as needed, any issues/concerns follow up sooner. Dr. Sanchez obtained history and examined the patient, I am acting as scribe for Dr. Sanchez/jessica Sanchez D.O. documented in this [facility]08-22-2024 Telephone encounter Note* Telephone Encounter - Karley Alonzo - 06/14/2024 11:49 AM EDT 06/06 [id number] Miscellaneous Notes* Telephone Encounter - Karley Alonzo - 06/14/2024 11:49 AM EDT 06/06 PT Eval * Telephone Encounter - Karley Alonzo - 06/01/2024 9:27 AM EDT $20.00 copay / med nec documented in this [facility]08-09-2024 Telephone encounter Note* Telephone Encounter - Karley Alonzo - 06/01/2024 9:27 AM EDT $20.00 copay / med nec [facility] [id number] Miscellaneous Notes* Telephone Encounter - Marina Young CMA - 03/06/2024 11:33 AM EDT ATTEMPTED TO PHONE PT TO REMIND OF APPT SCHEDULED FOR 03/07/2024. UNABLE TO LN VM FULL. documented in this [facility]05-14-2024 Telephone encounter Note* Telephone Encounter - Marina Young CMA - 03/06/2024 11:33 AM EDT ATTEMPTED TO PHONE PT TO REMIND OF APPT SCHEDULED FOR 03/07/2024. UNABLE TO LN VM FULL. [facility]02-13-2024 History of Present illness Narrative* Eva García Daniel, DO - 12/06/2023 9:30 AM ESTAssociated Order(s): L Inj/Asp: L glenohumeral Post-Procedure Diagnose(s): Primary osteoarthritis of left shoulder Images from the original note were not included. HISTORY OF PRESENT ILLNESS: Indio Collado is an 68 y.o. @ male. Chief complaint LT shoulder LT shoulder: 6 weeks sp aspiration and GH depo injx 10/25/23 he states that did help partial. He fell2 days ago with increased pain. LT shoulder pain x 01/2023, uses a zero turn at work, can hardly use it anymore, has to take breaks.Tripped and fell 07/25/23, went to [facility] ER, had XR. Pain has been getting worse over time. NKI. Shoulder continues to get worse since fall. Pain can be diffuse but mostly lateral shoulder. He haslimited ROM. Difficulty turning steering wheel in his truck. Admits TYL with little relief and gabapentin Using icy hot with little relief. Admits some N/T in LT hand x 6 months. Does not wake at HS,he takes a sleeping pill. Not able to lift things. Prior tx: XR [facility] 05/31/23, gabapentin, TYL, ice, heat, creams, depo injection 05/31/23, [facility] ER with XR07/25/23, icy hot,aspiration/GH depo injx 10/25/23 *Hx of [...] EVERY DAY AT BEDTIME FOR 30 DAYS 30tablet 11 FLUoxetine (PROzac) 20 MG capsule Take [...] left shoulder dated July 25, 2023 from [facility]. There is narrowing of the acromioclavicular [...] options including continued injections versus surgery I talkedto him about the risks of surgery including the risk of an infection. I have encouraged him to bqpyiu-jf-ivro with a dentist he states he has a cleaning scheduled and has had no issues. I have also suggested that he take protein supplement with his history of gastric bypass he is at increased riskfor malnutrition and infection if he proceeds with [...] discussed. Greg Sanchez D.O. documented in this encounterSS[facility] [id number] History of Present illness Narrative* JADE Porter - 12/05/2023 10:00 AM EST Subjective Patient ID: Indio Collado is a [...] EVERY DAY AT BEDTIME FOR 30 DAYS 30tablet 11 FLUoxetine (PROzac) 20 MG capsule Take [...] for Appointment As Scheduled. documented in this encounterSSM Saint [facility] Health CenterHmabbsdfbs15-19-1853 History of Present illness Narrative* Helen Gonzalez MD - 11/08/2023 10:10 AM EST Images from the original note were not included. To LUIS VELAZQUEZ MD Indio Collado is a 68 y.o. male bilateral lower extremity swelling. I ordered venous insufficiency duplex at his last visit and he is here to discuss results. Venous insufficiency duplex confirmsbilateral deep and superficial venous insufficiency. Given the patient's arterial perfusion I thinkhe can tolerate compression. Prescription for Farrow wraps will be provided. We will also trial thepatient on Vasculera for his postthrombotic symptoms. Hopefully [...] you for your understanding. documented in this [facility]01-03-2024 Miscellaneous Notes* Telephone Encounter - Antonietta Georges - 10/26/2023 9:07 AM EST Good morning. Received call from patient's daughter stating that Dr. Gonzalez was supposed to order acast for patient's leg and send to [facility]. Patient's daughter stated that there were no order when she contact the [facility] and would like to know what is going on. Patient can be reached at, or [phone]. Thank you very much. * Telephone Encounter - Camelia Verduzco LPN - 10/26/2023 9:07 AM EST Patients girl friend is scheduling patients testing that has not been scheduled for patient at check out. Patient is now scheduled for testing and a follow up [facility] Telephone encounter Note* Telephone Encounter - Antonietta Georges - 10/26/2023 9:07 AM EST Good morning. Received call from patient's daughter stating that Dr. Gonzalez was supposed to order acast for patient's leg and send to [facility]. Patient's daughter stated that there were no order when she contact the [facility] and would like to know what is going on. Patient can be reached at, or [phone]. Thank you very much. [facility] [employer] [id number] Telephone encounter Note* Telephone Encounter - Camelia Verduzco LPN - 10/26/2023 9:07 AM EST Patients girl friend is scheduling patients testing that has not been scheduled for patient at check out. Patient is now scheduled for testing and a follow up Dydra01-17-2023 Hospital Discharge instructions* Discharge Instructions* Shiloh Durham RN - 11/09/2022 12:09 PM [...] level of the heart to reduce swelling andthrobbing pain. -Call the office or come to Emergency Room if signs of infection appear (hot, swollen, red, draining pus, fever) -Take medications as prescribed. -Wean off narcotics (percocet/norco) as soon as possible. Do not take tylenol if still taking narcotics. -Follow up with Dr. Babin in his office on 11/15/21 at 1:00pm. Call [phone] with questions/concerns. No alcoholic beverages, no driving [...] so by your surgeon documented in this encounterBON [facility]OU[facility] MEDICAL CENTERTellus Technology [facility] Phone: 1(418) 597-346801-17-2023 History of Present illness Narrative* Loli Almanza RN - 11/09/2022 10:[address] Babin aware that pt took eliquis last night. documented in this encounterBON SECOURS MEMOR[facility] REGIONAL MEDICAL CENTERMoogi Phone: 1([phone]) 156-914212-13-2022 Progress note Author Efrain Aquino [facility] October 05, 2022 12:00pmNote Date/TimeDecember 2021 10:14[place] [address] Wound Center Provider Note Signed Patient: Indio Collado MR#: [id number] : 1955 Acct:[id number] Age/Sex: 67 / M Copies to: MD Luis Myers II, MD Seth Andrew Phillips DO Tonia Copsey, APRN~ HPI Date of Visit Date of Visit: Date of Service: 10/05/2022 Time of Service: 10:04 Narrative HPI: 10/05/22 Indio is a 67 year old presenting to [facility] wound care program for an initial visit foreval and treatment of multiple wounds from a [...] abdomen should heal quickly but I would expectthe medial ankle to be a morelengthy process. Indio can be seen back in a few weeks. I see no signsof acute infection today. Healing will be affected by the wound care, the edema in the left leg, his disease processes such as diabetes, lymphedema, venous stasis and his diet. Subjective Pain Left Leg: Pain Intensity: 4 Wound/Ulcer History When did wound start?: September 06, 2022 Mode of Arrival/ Head Of Music: Personal vehicle and Friend Assistive Device Used Today: Walker Lives with:: Alone Appetite Description: Within Normal Limits Who helps w/ dressing change?: Self Why Do You Need Help?: Can't Reach Ulcer and Limited mobility Smoking Status: Former smoker [facility] History (Updated 10/05/22 @ 10:14 [...] Abdomen: Type: Traumatic Thickness: Full Bed Appearance: Vidor and Yellow Percent of Wound Bed Granulated/Red: 5 Percent of Devitalized: 95 Length (cm): 0.5 Width (cm): 11.2 Depth (cm): 0.1 CM Sq: 5.600 Surrounding Tissue Appearance: [place] Surrounding Tissue Temp: Warm Drainage Amount: None [...] Leg: Type: Traumatic Thickness: Full Bed Appearance: [place] Percent of Wound Bed Granulated/Red: 100 Percent [...] signed by MD Efrain Aquino> 10/05/22 1200 [facility] Work Phone: [phone]) 233-810410-06-2022 NotePROCEDURE: XR KNEE RT 3V COMPARISON: 03/20/2015 HISTORY: Pain of joint of knee FINDINGS: BONES:Total knee arthroplasty with long stem components. No acute fracture, dislocation or mechanical failure. Patellar resurfacing SOFT TISSUES:Negative. No visible soft tissue swelling. EFFUSION:Small suprapatellar joint effusion. Vascular calcifications. OTHER: Negative. IMPRESSION: Total knee arthroplasty with small joint effusion Electronically authenticated by: INDIO KIRK Date: 2022-07-29 18:30[facility]09-21-2022 NotePROCEDURE: XR TIB_FIB LT 2V HISTORY: Open [...] authenticated by: THOMAS COLBERT Date: 2022-07-14 08:55[facility] [id number] NoteMR#: [id number] [facility] Pt. Name: Indio Collado Admitted: 02/15/2022 [...] Castorena MD Date Trans: 03/09/2022 10:38 A/laisha DN_[id number] cc: Luis Velazquez M.D. 3 [facility] [address]21 Note [id number]:127[facility] Evaluation note* Diagnosis Surgical site infection- Primary Post-op pain Other acute postoperative pain Wound of left ankle documented in this encounter [employer] Phone: Evaluation note* Diagnosis Onset Date Resolution Status Anemia acuteAnkle fracture, leftacuteBPH (benign prostatic hyperplasia)acuteCAD (coronary artery disease)acuteCOPD (chronic obstructive pulmonary disease)acute HTN (hypertension)acuteMotor vehicle accidentacuteMultiple fractures of rib involving four or more ribsacutePelvic hematomaacuteSternal manubrial dissociation, closed fractureacuteThrombosis of right peroneal veinacuteCHF (congestive heart failure)chronicGeneralized weaknesschronicLymphedema of both lower extremitieschronicVenous stasis of both lower extremitieschronicVenous stasis ulcer of left lower extremityresolvedAnkle fracture, leftacuteMotor vehicle accidentacuteCHF (congestive heart failure)chronicDiabetes mellitus chronicEdema legchronicGeneralized weaknesschronicSurgical wound, non healing chronicTraumatic woundchronic [facility] Work Phone: Evaluation note* Diagnosis Chronic obstructive [...] due to type 2 diabetes mellitus (CMS/HCC) documented [facility]* [...] referable to back documented in this encounter [facility]* Diagnosis Prostate cancer screening- Primary Special screening for malignant neoplasm of prostate Mixed hyperlipidemia (CMS/HCC) Mixed hyperlipidemia Atherosclerosis of [place] coronary artery of [place] heart without angina pectoris (CMS/HCC) Chronic combined systolic and diastolic CHF, NYHA class 1 (CMS/HCC) Chronic obstructive pulmonary disease, unspecified (CMS/HCC) Paroxysmal atrial fibrillation (CMS/HCC) Atrial fibrillation Chronic venous hypertension (idiopathic) with ulcer and inflammation of right lower extremity (CMS/HCC) Lymphedema Other noninfectious lymphedema documented in this encounter [facility]* Diagnosis Venous insufficiency of both lower extremities- Primary Lymphedema of both lower extremities [facility] Diagnosis Venous insufficiency of both lower extremities- Primary Varicose veins of leg with pain, bilateral Phlebitis and thrombophlebitis Phlebitis and thrombophlebitis of unspecified site [facility]* Diagnosis Primary insomnia Persistent disorder of initiating or maintaining sleep 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) documented [facility]* Diagnosis Venous insufficiency of both lower extremities- Primary Varicose veins of leg with pain, bilateral Phlebitis and thrombophlebitis Phlebitis and thrombophlebitis of unspecified site Primary osteoarthritis of left shoulder- Primary Rotator cuff tear arthropathy of left shoulder documented in this encounter [facility] SystemEvaluation note* Diagnosis Venous insufficiency of both lower extremities- Primary Varicose veins of leg with pain, bilateral Phlebitis and thrombophlebitis Phlebitis and thrombophlebitis of unspecified site Rotator cuff tear arthropathy of 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 documented in this encounter [facility] SystemEvaluation note* Diagnosis Left foot pain- Primary Pain in soft tissues of limb Right foot pain Pain in soft tissues of limb Metatarsalgia of both feet 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 Plantar fat pad atrophy of right foot documented in this encounter [facility] HealthcareEvaluation note* Diagnosis Rotator cuff impingement syndrome of left shoulder- Primary Primary osteoarthritis of left shoulder [facility] in [facility]* Diagnosis Metatarsalgia of both feet- Primary 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 Equinus contracture of right ankle Equinus contracture of left ankle Plantar fat pad atrophy of right foot Left foot pain Pain in soft tissues of limb Right foot pain Pain in soft tissues of limb documented [facility]* Diagnosis Rotator cuff impingement syndrome of 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 documented in [facility]* Diagnosis Metatarsalgia of both feet documented in [facility]* Diagnosis Bug bite of hand, infected, left, initial encounter- Primary Rotator cuff impingement syndrome of 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 Other chronic pain documented in this encounter [facility]* Diagnosis Cellulitis of left hand- Primary documented in this [facility]* Diagnosis 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) Rotator cuff impingement syndrome of 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 documented in [facility]* Diagnosis Primary insomnia Persistent disorder of initiating or maintaining sleep documented in this encounter [facility] HealthcareEvaluation note* Diagnosis Rotator cuff impingement syndrome of 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 documented in this encounter [facility]* Diagnosis Metatarsalgia of both feet documented in this encounter [facility] HealthcareEvaluation note* Diagnosis Rotator cuff impingement syndrome of left shoulder- Primary Allergic dermatitis Contact dermatitis and other eczema, due to unspecified cause Atherosclerosis of [place] coronary artery of [place] heart without angina pectoris Pulmonary emphysema, unspecified emphysema type (HCC) Paroxysmal atrial fibrillation (HCC) Atrial fibrillation Acute diastolic heart failure (HCC) Acute diastolic heart failure documented in this encounter [facility] HealthcareEvaluation note* Diagnosis Venous insufficiency of both lower extremities- Primary Varicose veins of leg with pain, bilateral Phlebitis and thrombophlebitis Phlebitis and thrombophlebitis of unspecified site 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 Pre-op testing- Primary Unspecified pre-operative examination 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 documented in this encounter [facility] SystemEvaluation note* Diagnosis Rotator cuff impingement syndrome of 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 [address] [place] [address] PCP - GeneralInternal Medicine10/27/17Team MemberRelationshipSpecialtyStart Date End Date Luis Velazquez MD [address] [place] [address] PCP - Devoted10/24/22 Luis Velazquez MD [address] [place] [address] PCP - GeneralInternal Medicine03/28/23 Hallie Rizo, STERLING [facility]11/30/24Team MemberRelationshipSpecialtyStart Date End Date Lius Velazquez MD [address] [place] [address] PCP - Devoted10/24/22 Luis Velazquez MD [address] [place] [address] PCP - GeneralInternal Medicine03/28/23 Audrey Chandler LPN 01/11/25Team MemberRelationshipSpecialtyStart DateEnd Date Luis Velazquez MD [address] [place] [address] PCP - Devoted10/24/22 Luis Velazquez MD [address] [place] [address] PCP - GeneralInternal Medicine03/28/23 Audrey Chandler INSURANCE ACCOUNT REPRESENTATIVE 01/11/25Team MemberRelationshipSpecialtyStart DateEnd Date Luis Velazquez MD [address] [place] [address] PCP - Devoted10/24/22 Luis Velazquez MD [address] [place] [address] PCP - GeneralInternal Medicine03/28/23 Audrey Chandler INSURANCE ACCOUNT REPRESENTATIVE 01/11/25Team MemberRelationshipSpecialtyStart DateEnd Date Luis Velazquez MD [address] [place] [address] PCP - Devoted10/24/22 Luis Velazquez MD [address] [place] [address] PCP - GeneralInternal Medicine03/28/23 [place] Audrey, [facility] 01/11/25Team MemberRelationshipSpecialtyStart DateEnd Date Luis Velazquez MD [address] [place] [address] PCP - Devoted10/24/22 Luis Velazquez MD [address] [place] [address] PCP - GeneralInternal Medicine03/28/23 [place] Audrey, [facility] 01/11/25Team MemberRelationshipSpecialtyStart DateEnd Date Luis Velazquez MD [address] [place] [address] PCP - Devoted10/24/22 Luis Velazquez MD [address] [place] [address] PCP - GeneralInternal Medicine03/28/23 [place] Audrey, [facility] 01/11/25Team MemberRelationshipSpecialtyStart DateEnd Date Luis Velazquez MD [address] [place] [address] PCP - Devoted10/24/22 Luis Velazquez MD [address] [place] [address] PCP - GeneralInternal Medicine03/28/23 [place] [facility] MarinaLissettAudrey, [facility] 01/11/25Te MemberRelationshipSpecialtyStart DateEnd Date Luis Velazquez MD [address] [place] [address] PCP - Devoted10/24/22 Luis Velazquez MD [address] [place] [address] PCP - GeneralInternal Medicine03/28/23 [facility] MarinaLissettAudreySaint [facility] 01/11/25Te MemberRelationshipSpecialtyStart DateEnd Date Luis Velazquez MD [address] [place] [address] PCP - Devoted10/24/22 Luis Velazquez MD [address] [place] [address] PCP - GeneralInternal Medicine03/28/23 [facility] MarinaLissettAudreySaint [facility] 01/11/25Te MemberRelationshipSpecialtyStart DateEnd Date Luis Velazquez MD [address] [place] [address] PCP - Devoted10/24/22 Luis Velazquez MD [address] [place] [address] PCP - GeneralInternal Medicine03/28/23 [facility] MarinaLissettAudreySaint [facility] 01/11/25Te MemberRelationshipSpecialtyStart DateEnd Date Luis Velazquez MD [address] [place] [address] PCP - Devoted10/24/22 Luis Velazquez MD [address] [place] [address] PCP - GeneralInternal Medicine03/28/23 [place] MarinaLissettAudrey, [facility] 01/11/25Team MemberRelationshipSpecialtyStart DateEnd Date Luis Velazquez MD [address] [place] [address] PCP - Devoted10/24/22 Luis Velazquez MD [address] [place] [address] PCP - GeneralInternal Medicine03/28/23 [facility] 01/11/25Team MemberRelationshipSpecialtyStart DateEnd Date Luis Velazquez MD [address] [place] [address] PCP - Devoted10/24/22 Luis Velazquez MD [address] [place] [address] PCP - GeneralInternal Medicine03/28/23 [facility] MarinaLissettAudreySaint [facility] 01/11/25Team MemberRelationshipSpecialtyStart DateEnd Date Luis Velazquez MD [address] [place], [place] [address] PCP - GeneralInternal Medicine10/27/17Team MemberRelationshipSpecialtyStart Date End Date Luis Velazquez MD [address] [place] [address] PCP - Devoted10/24/22 Luis Velazquez MD [address] [place] [address] PCP - GeneralInternal Medicine03/28/23 ChandlerLissettAudreyLISA rand 01/11/25Team MemberRelationshipSpecialtyStart DateEnd Date Luis Velazquez MD [address], [address] [place] [address] PCP - GeneralInternal Medicine10/27/17Team MemberRelationshipSpecialtyStart Date End Date Luis Velazquez MD [address], [address] [place] [address] PCP - GeneralInternal Medicine10/27/17Team MemberRelationshipSpecialtyStart Date End Date Luis Velazquez MD [address], [address] [place] [address] PCP - GeneralInternal Medicine10/27/17Team MemberRelationshipSpecialtyStart Date End Date Luis Velazquez MD [address], [address] [place] [address] PCP - GeneralInternal Medicine10/27/17Team MemberRelationshipSpecialtyStart Date End Date Luis Velazquez MD [address] [place] [address] PCP - Devoted10/24/22 Lius Velazquez MD [address] [place] [address] PCP - GeneralInternal Medicine03/28/23 Audrey Chandler LPN [address] [place] [address] 01/11/25Team MemberRelationshipSpecialtyStart DateEnd Date Luis Velazquez MD [address] [place] [address] PCP - Devoted10/24/22 Luis Velazquez MD [address] [place] [address] PCP - GeneralInternal Medicine03/28/23 Audrey Chandler LPN [address] [place] [address] 01/11/25Team MemberRelationshipSpecialtyStart DateEnd Date Luis Velazquez MD [address] [place] [address] PCP - Devoted10/24/22 Luis Velazquez MD [address] [place] [address] PCP - GeneralInternal Medicine03/28/23 Audrey Chandler LPN [address] [place] [address] 01/11/25Team MemberRelationshipSpecialtyStart DateEnd Date Luis Velazquez MD [address] [place] [address] PCP - Devoted10/24/22 Luis Velazquez MD [address] [place] [address] PCP - GeneralInternal Medicine03/28/23 Audrey Chandler LPN [address] [place] [address] 01/11/25Team MemberRelationshipSpecialtyStart DateEnd Date Luis Velazquez MD [address], [address] [place] [address] PCP - GeneralInternal Medicine10/27/17Team MemberRelationshipSpecialtyStart Date End Date Luis Velazquez MD [address] [place] [address] PCP - Devoted10/24/22 Luis Velazquez MD [address] [place] [address] PCP - GeneralInternal Medicine03/28/23 Audrey Chandler LPN [address] [place] [address] 01/11/25Team MemberRelationshipSpecialtyStart DateEnd Date Luis Velazquez MD [address] [place] [address] PCP - Devoted10/24/22 Luis Velazquez MD [address] [place] [address] PCP - GeneralInternal Medicine03/28/23 Audrey Chandler LPN [address] [place] [address] 01/11/25Team MemberRelationshipSpecialtyStart DateEnd Date Luis Velazquez MD [address] [place] [address] PCP - Devoted10/24/22 Luis Velazquez MD [address] [place] [address] PCP - GeneralInternal Medicine03/28/23Team MemberRelationshipSpecialtyStart Date End Date Luis Velazquez MD [address] [place] [address] PCP - Devoted10/24/22 Luis Velazquez MD [address] [place] [address] PCP - GeneralInternal Medicine03/28/23Team MemberRelationshipSpecialtyStart Date End Date Luis Velazquez MD [address], [address] [place] [address] PCP - GeneralInternal Medicine10/27/17Team MemberRelationshipSpecialtyStart Date End Date Luis Velazquez MD [address] [place] [address] PCP - Devoted10/24/22 Luis Velazquez MD [address] [place] [address] PCP - GeneralInternal Medicine03/28/23 Hallie Rizo, STERLING [address] [place] [address] Clinical [facility]ocateWay[facility] Systemly [facility]/ Audrey Chandler LPN [address] [place] [address] Team MemberRelationshipSpecialtyStart DateEnd Date Luis Velazquez MD [address] [place] [address] PCP - Devoted10/24/22 Luis Velazquez MD [address] [facility] [address] [place] [address] PCP - GeneralInternal Medicine03/28/23 Hallie Rizo RN [address] [facility] [place] [address] Clinical AdvocateFamily Medicine Audrey Chandler LPN [address] [facility] [address] [place] [address] Team MemberRelationshipSpecialtyStart DateEnd Date Luis Velazquez MD [address] [facility] [address] [place] [address] PCP - [facility]10/24/22 Luis Velazquez MD [address] [facility] [address] [place] [address] [facility]/28/23 Hallie Rizo RN [address] [place] [address] Clinical [facility]Children[facility] Audrey Chandler LPN [address] [place] [address] Goals (unrecognized section and content) Goals may be documented in a n alternate section FOR RECORDS PERTAINING TO PATIENTS WHO ARE [...] BE BASED ON THE PRIMARY CLINICAL RECORDS. [employer] provides no warranty or guarantee of the accuracy or completeness of information in this document.
[2025-08-22 09:09] LABS: Alanine Aminotransferase 15 U/L (16-63); Albumin Globulin Ratio 0.9; Albumin Level 3.0 g/dL (3.4-5.0); Alkaline Phosphatase 114 U/L (46-116); Anion Gap 13.1; Aspartate Amino Transferase 17 U/L (15-37); Blood Urea Nitrogen 12.0 mg/dL (7.0-18.0); Calcium 8.5 mg/dL (8.5-10.1); Carbon Dioxide 27.4 mmol/L (21.0-32.0); Chloride 106 mmol/L (98-107); Cholesterol 103 mg/dL (<=200); Estimated GFR (African America >60 (>=60 mL/min/1.73m^2); Estimated GFR (Non-African Ame >60 (>=60 mL/min/1.73m^2); Globulin 3.4 g/dL; Glucose 90 mg/dL (74-106); HDL Cholesterol 64 mg/dL (40-60); Potassium 4.5 mmol/L (3.5-5.1); Sodium 142 mmol/L (136-145); Total Protein 6.4 g/dL (6.4-8.2); Triglycerides 47 mg/dL (<=150); VLDL CHOLESTEROL 9.4 mg/dL
[2025-08-22 09:21] LABS: Hematocrit 55.8 % (42.0-54.0); Hemoglobin 17.7 g/dL (14.0-18.0); Immature Granulocytes Abs Auto 0.02 10^3/uL (0.00-0.03); Immature Granulocytes Pct Auto 0.3 % (0.0-0.5); Lymphocytes Absolute Auto 1.5 10^3/uL (1.2-3.8); Mean Corpuscular HGB Conc 31.7 g/dL (29.9-35.2); Mean Corpuscular Hemoglobin 27.9 pg (25.9-34.0); Mean Corpuscular Volume 88.0 fL (80.0-94.0); Platelet Count 187 10^3/uL (150-450); Red Blood Count 6.34 10^6/uL (4.70-6.10); White Blood Count 7.4 10^3/uL (4.0-11.0)
== END 2025-08-22 08:10 | disposition home or self-care (01) ==
LOC: LAB 08:11
PROVIDERS: PCP Internal Medicine; Visit Provider Nurse Practitioner Family
DX: I25.10 Atherosclerotic heart disease of native coronary artery without angina pectoris (principal); E78.2 Mixed hyperlipidemia
CPT/HCPCS: 36415; 80053; 80061; 85025

== ENCOUNTER 2025-09-23 09:30 | Outpatient (RCR) | payer OTHER, SELFPAY | END 2025-10-23 12:37 | disposition home or self-care (01) | LOC: MM 09:30 | PROVIDERS: PCP Internal Medicine; Visit Provider Nurse Practitioner Family | DX: Z51.81 Encounter for therapeutic drug level monitoring (principal); Z79.01 Long term (current) use of anticoagulants; I48.0 Paroxysmal atrial fibrillation ==